=== PATIENT | female | born 1950 | race Caucasian/White ===

== ENCOUNTER 2025-01-05 16:59 | Emergency (ER) | payer MEDICARE, BC, SELFPAY ==
--- OUTSIDE RECORDS SUMMARY | 2025-01-05 17:01 | XMS_ITS ---
Author Organization [facility] MALAIKA saldana Address [address] [place], [place] [id number] Care Team Providers Care Sales Estimator Name Role Phone Dev Mckeon Primary Care Provider [phone] Allergies No Known Allergies REASON FOR VISIT Est Care Medications Medication SIG (Take, Route, Frequency, Duration) Notes Start Date End Date Status Sheldon 1 capsule BID Active Fiber 625 MG 2 tablets as needed Orally Three times a day Active Zinc 20 MG 1 tablet Orally Once a day Active Berberine 600mg/scoop 1 scoop oral BID Active Melatonin 3 MG 1 tablet at bedtime as needed Orally Once a day Active Freeland 3 1000 MG 1 capsule Orally Thr ee times a day Active Vitamin C 500 MG as directed Orally Active Metoprolol Succinate 50 MG 1 capsule Ora lly Once a day Active B12 5000 MCG as directed Sublingual Active hydroCHLOROthiazide 12.5 MG 1 capsule in the morning Orally Once a day Active Niacin 100 MG 1 tablet with food Orally Once a day Active Social History Tobacco Use: Social History Observation Description Date Details (start date - stop date) Never Smoker NA - NA Smoking Question Answer Notes Status: Non-Smoker Problems Problem Type SNOMED Code ICD Code Onset Dates Problem Status W/U Status Risk Notes Problem 95088803 Primary hypertension (I10) Active confirmed Vital Signs Temperature 97.2 degrees Fahrenheit 12/04/19 25 Blood pressure systolic 158 mm Hg 12/04/19 25 Blood pressure diastolic 98 mm Hg 025 Heart Rate 70 /min 12/03/2024 Respiratory Rate 16 /min 12/03/2024 Weight 155.8 lbs 12/03/2024 Encounters Encounter Location Date Provider Diagnosis [facility] [address] [place], [place] [id number] 12/03/2024 Dev Mckeon Abdominal bloating R14.0 and Intermittent constipation K59.09 Assessments Encounter Date Diagnosis (ICD Code) Assessment Notes Treatment Notes Treatment Clinical Notes Section Notes 12/03/2024 Abdominal bloating (ICD-10 - R14.0) 12/03/2024 Intermittent constipation (ICD-10 - K59.09) 12/03/2024 Other Impression & Plan: 1. 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 pylori breath test 2. Chronic Inflammation: - Continue current ibuprofen regimen - Reintroduce quercetin (3,000mg daily) after few days on motility activator - Review previous lab results for pancreatic function markers (amylase, lipase) and anything else I can find. 3. Follow-up Plan: - Monitor response to motility activator for 4-5 months - Consider EGD if symptoms persist or worsen for suspected hiatal hernia - Continue symptom-based management of constipation - Maintain communication regarding lab result review and potential treatment modifications Plan Of Treatment Treatment Notes Assessment Notes Other Impression & Plan: 1. 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 pylori breath test 2. Chronic Inflammation: - Continue current ibuprofen regimen - Reintroduce quercetin (3,000mg daily) after few days on motility activator - Review previous lab results for pancreatic function markers (amylase, lipase) and anything else I can find. 3. Follow-up Plan: - Monitor response to motility activator for 4-5 months - Consider EGD if symptoms persist or worsen for suspected hiatal hernia - Continue symptom-based management of constipation - Maintain communication regarding lab result review and potential treatment modifications Next Appt Details Follow Up: 2 Months, Reason: Progress Notes * Mina PULIDOOB:1950 ([age] yo F)Acc No.[id number]:12/03/2024 Progress Notes Patient: Rosa SOUZA Provider: Sona Mckeon CNP :1950 A ge:73 Y S ex:Female Date:12/03/2024 Address:[address] [place] [address], [id number] Subjective: * Chief Complaints: * E st Care * HPI: P HQ-9: PHQ-2 In last two weeks have you been bothered by L ittle interest or pleasure in doing things N o, F eeling down, depressed, or hopeless N o. - : Respiratory Illness Screening 2 . Are respiratory illness symptom(s) present / reported? N o, 6 . Has close* contact with person(s) known to have communicable illness been reported? N o. 73 year old female presents to [facility] with digestive problems and pelvic cramping since using a 20 lb kettlebell several weeks prior to Thanksgiving. - History of Presenting Illness: Started experiencing pelvic cramping right before Thanksgiving after using a 20 lb kettlebell for several weeks. Symptoms include chronic inflammation, digestive issues, and elimination problems. No recent history of food poisoning or vomiting. No fever reported. Weight decreased from normal weight of 175 lbs to current weight of 155 lbs, with previous loss of appetite that improved with ibuprofen use. Taking ibuprofen 6am and 6pm which has helped with pelvic cramping. Has worked with her primary care provider who recommends colonoscopy as next step and has done lots of blood work with no definitive diagnosis or direction. - Past Medical History: Previous positive H. pylori test years ago. - Current Medications: - Melatonin (Dr. Edita verde - 6 sprays at bedtime, 4 sprays when waking at night) - Betaine HCL - PectaSol (2 daily, 15g fiber) - Magnesium oxide (8 tablets nightly) - Baobab (2 packets daily in 16oz water) - Ibuprofen (twice daily) - Previously on Rosuvastatin 40mg daily, discontinued - Social History: Sister drove from [place] for appointment. * ROS: - Constitutional symptoms: Fatigue, decreased energy, weight loss with previous loss of appetite - Gastrointestinal: Severe bloating, constipation, digestive issues - Genitourinary: Urinary frequency (waking 3 times nightly to urinate) See HPI remainder of 13 point ros reviewed and negative . * Medical History: * Surgical History: D enies Past Surgical History * Hospitalization/Major Diagno stic Procedure: D enies Past Hospitalization * Family History: F ather: Heart Disease. S ister(s): Heart Disease,High Cholesterol,High Blood Pressure.?Maternal Grand Mother: Cancer. M aternal Grand Father: Stroke. 2 brother(s) , 2 sister(s) . . * Social History: D iet: F ollow Special Diet?: Intermittent Fasting. How many servings of fruits and vegetables do you eat daily?: 2-4. T obacco Use: O ther forms of tobacco: No. Smoking S tatus: N on-Smoker. M iscellaneous: E xercise: 2-4 days/week. Sexually active: No. Domestic Violence: No. Caffeine: 1- 2. Seatbelt Usage: Yes. Daily Calcium Intake: 1. 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 It was a gateway for me to other techniques: tuning forks, essential oils, homeopathy.. S ocial History: D rug/Alcohol H ave you used drugs other than those for medical reasons in the past 12 months? N o. H ousehold M arital Status: M arried. D rug/Alcohol: A lcohol: None. Pharmacy Information: [facility]. * Medications: T akingGaba Capsule 1 capsule BID Zinc 20 MG Capsule 1 tablet Orally Once a day Fiber 625 MG Tablet 2 tablets as needed Orally Three times a day Melatonin 3 MG Tablet 1 tablet at bedtime as needed Orally Once a day Berberine 600mg/scoop powder 1 scoop oral BID Niacin 100 MG Tablet 1 tablet with food Orally Once a day Freeland 3 1000 MG Capsule 1 capsule Orally Three times a day Vitamin C 500 MG Capsule as directed Orally B12 5000 MCG Tablet Sublingual as directed Sublingual Metoprolol Succinate 50 MG Capsule ER 24 Hour Sprinkle 1 capsule Orally Once a day hydroCHLOROthiazide 12.5 MG Capsule 1 capsule in the morning Orally Once a day Medication List reviewed and reconciled with the patientTaking Sheldon Capsule 1 capsule BID Taking Zinc 20 MG Capsule 1 tablet Orally Once a day Taking Fiber 625 MG Tablet 2 tablets as needed Orally Three times a day Taking Melatonin 3 MG Tablet 1 tablet at bedtime as needed Orally Once a day Taking Berberine 600mg/scoop powder 1 scoop oral BID Taking Niacin 100 MG Tablet 1 tablet with food Orally Once a day Taking Freeland 3 1000 MG Capsule 1 capsule Orally Three times a day Taking Vitamin C 500 MG Capsule as directed Orally Taking B12 5000 MCG Tablet Sublingual as directed Sublingual Taking Metoprolol Succinate 50 MG Capsule ER 24 Hour Sprinkle 1 capsule Orally Once a day Taking hydroCHLOROthiazide 12.5 MG Capsule 1 capsule in the morning Orally Once a day Medication List reviewed and reconciled with the patient * Allergies: N .K.D.A.no[Allergies Verified] Objective: * Vitals: W t: 155.8, Temp: 97.2, HR: 70, RR: 16, BP: 158/98, [id number]. * Examination: G eneral Examination: - Hyperactive bowel sounds - Mild tenderness noted in upper abdomen - Suspected hiatal hernia identified on physical examination. Assessment: * Assessment: 1. A bdominal bloating - R14.0 (Primary) 2 . I ntermittent constipation - K59.09 Plan: * Treatment: * Procedure Codes: * Follow Up: 2 Months * Billing Information: * Visit Code: 73939 Officeoutpatient visit, new. * Procedure Codes: * Sign off status: Completed true * Provider: Sona Mckeon CNP Date: 0 12/03/2024 Generated for Yosef coats/Toñito/Cydney on: 0 01/05/2025 05:01 PM CDT History and Physical Notes * HPI (History of Present Illness) Category Sub-Category Detail Notes Category Not es PHQ-9 PHQ-2 In last two we eks have you been bothered by Little interest or pleasure in doing things: No Feeling down, depressed, or hopeless: No - Respiratory Illness Screening 2. Are respiratory illness symptom(s) present / reported?: No 73 year old female presents to establish care with digestive problems and pelvic cramping since using a 20 lb kettlebell several weeks prior to Thanks. - History of Presenting Illness: Started experiencing pelvic cramping right before Thanksgiving after using a 20 lb kettlebell for several weeks. Symptoms include chronic inflammation, digestive issues, and elimination problems. No recent history of food poisoning or vomiting. No fever reported. Weight decreased from normal weight of 175 lbs to current weight of 155 lbs, with previous loss of appetite that improved with ibuprofen use. Taking ibuprofen 6am and 6pm which has helped with pelvic cramping. Has worked with her primary care provider who recommends colonoscopy as next step and has done lots of blood work with no definitive diagnosis or direction. - Past Medical History: Previous positive H. pylori test years ago. - Current Medications: - Melatonin (Dr. Edita verde - 6 sprays at bedtime, 4 sprays when waking at night) - Betaine HCL - PectaSol (2 daily, 15g fiber) - Magnesium oxide (8 tablets nightly) - Baobab (2 packets daily in 16oz water) - Ibuprofen (twice daily) - Previously on Rosuvastatin 40mg daily, discontinued - Social History: Sister drove from [place] for appointment. 6. Has close* contact with sully craven(s) known to have communicable illness been reported?: No Examination Category Sub-Category Detail Notes Category Not es General Examination - Hyperactive bowel sounds - Mild tenderness noted in upper abdomen - Suspected hiatal hernia identified on physical examination
--- OUTSIDE RECORDS SUMMARY | 2025-01-05 17:01 | XMS_ITS | Clinical Summary ---
Author Organization [facility] Address [address] [place] [id number] Care Team Providers Care Mophead Trimmer And Wrapper Name Role Phone Votel, Axel Thomas MD Primary Care Provider + Allergies No known active allergies Medications cholecalciferol (Vitamin D-3) 2,000 unit capsule Take 1 Capsule (2,000 units) by mouth once daily. 0 2 Active Hhnrz-5-YZK-EPA-Fi sh Oil 1,000 mg (120 mg-180 mg) cap Take 1 Capsule (1,000 mg) by mouth. 0 2 Active coenzyme q10 (Co Q-10) 100 mg cap Take 1 Capsule (100 mg) by mouth once daily. 0 2 Active vitamin e 200 unit capsule Take 2 Capsules (400 units) by mouth once daily. 0 2 Active miscellaneous medical supply (Blood Pressure Cuff) miscIndications:Es sential hypertension As directed. Home automatic blood pressure cuff. 1 Each 4 Active hydroCHLOROthiazid e 12.5 mg tabletIndications: Essential hypertension Take 1 Tablet (12.5 mg) by mouth once daily. 90 Tablet 3 4 Active metoprolol succinate (TOPROL XL) 50 mg sustained-release tabletIndications: Essential hypertension Take 1 Tablet (50 mg) by mouth once daily. 90 Tablet 3 4 Active rosuvastatin (CRESTOR) 40 mg tabletIndications: Hyperlipidemia, unspecified hyperlipidemia type,Atheroscleros is Take 1 Tablet (40 mg) by mouth at bedtime. 90 Tablet 3 4 Active aspirin (ECOTRIN) 81 mg enteric coated tablet Take 81 mg by mouth once daily with a meal. Active Active Problems Problem Noted Date Diagnosed Date Elevated coronary artery calcium score 3 Overview (07/13/2023): CAC>86% 06/2023 Melanoma in situ of upper extremity, right 06/10 Advanced care planning/counseling discussion 01/2019 Overview (04/26/2019): Completed 2012, reviewed w/o change 2017 Pure hypercholesterolemia 06/29/2018 Essential hypertension 03/11/2018 Encounters Date Type Department Care Team Description 01/05/2025 12:50 PM CDT E-Visit [facility] [address] [place] [address] Axel Palomo MD eVisit for Vaginal Discharge / Irritation 11/04/2024 Travel 11/03/2024 8:15 AM QUALITY ASSURANCE COACH Orders Only [facility] [address] [place] [address] [place], [place] Lab 10/21/2024 2:00 PM QUALITY ASSURANCE COACH Ancillary Procedure [facility] [address] [place] [address] 10/21/2024 Travel 10/16/2024 Travel 10/14/2024 1:40 PM QUALITY ASSURANCE COACH Office Visit [facility] [address] [place] [address] Axel Palomo MD Follow Up ( results) 10/14/2024 Travel 10/09/2024 Travel 10/08/2024 1:45 PM QUALITY ASSURANCE COACH Ancillary Procedure [facility] [address] [place] [address] [address] 10/08/2024 Travel from Last 3 Months Family History Medical History Relation Name Comments Heart failure Father CABG at 60 [facility] Mother Mitral valve prolapse Sister 1 valve replaced Relation Name Status Comments Brother 1 Alive Brother 2 Alive Father (Age 73) Mother (Age 94) Sister 1 Alive Sister 2 Alive Social History Tobacco Use Types Packs/Day Years Used Date Smoking Tobacco: Never Smokeless Tobacco: Never Tobacco Cessation:Counseling Given: Yes Alcohol Use Standard Drinks/Week Comments Yes 2 (1 standard drink = 0.6 oz pur e alcohol) PHQ-2 Answer Date Recorded PHQ-2 TOTAL SCORE 0 06/12/2023 Social Connections Answer Date Recorded Do you often feel lonely or isolated from those around you? 0 09/08/2024 Alcohol Use Answer Date Recorded How often do you have a drink containing alcohol ? 3 06/12/2023 How many drinks containing a lcohol do you have on a typical day when you are drinking? 0 06/12/2023 How often do you have five or more drinks on one occasion? 0 06/12/2023 Financial Resource Strain Answer Date R ecorded Difficulty of Paying Living Expenses 3 09/08/2024 Difficulty of Paying Living Expenses Not on file 09/08/2024 Food Insecurity Answer Date Recorded Do you worry your food will run out before you are able to buy more? 1 09/08/2024 Transportation Needs Answer Date Record ed Does lack of transportation keep you from medica l appointments? 1 09/08/2024 Does lack of transportation keep you from work, meetings or getting things that you need? 1 09/08/2024 Housing Stability Answer Date Recorded What is your housing situation today? 1 09/08/2024 Utilities Answer Date Recorded Do you have trouble paying f or utilities (for example, heat, electricity, water, phone)? 1 09/08/2024 Comments No Sex and Gender Information Value Date Recorded Sex Assigned at Not on file Legal Sex Female 7:12 AM QUALITY ASSURANCE COACH Gender Identity Not on file Sexual Orientation Not on file Obstetrics History Last Filed Vital Signs Vital Sign Reading Time Taken Comments Blood Pressure 134/83 10/14/2024 1:36 PM QUALITY ASSURANCE COACH Pulse 87 10/14/2024 1:36 PM QUALITY ASSURANCE COACH Temperature 36.3 C (97.4 F) 09/28/2024 3:50 PM QUALITY ASSURANCE COACH Respiratory Rate 20 09/28/2024 3:50 PM QUALITY ASSURANCE COACH Oxygen Saturation 100% 10/14/2024 1:36 PM QUALITY ASSURANCE COACH Inhaled Oxygen Concentration - - Weight 71.5 kg (157 lb 11.2 oz) 10/14/2024 1:36 PM QUALITY ASSURANCE COACH Height 163.8 cm (5' 4.5) 10/14/2024 1:36 PM QUALITY ASSURANCE COACH Body Mass Index 26.65 10/14/2024 1:36 PM QUALITY ASSURANCE COACH Plan of Treatment Upcoming Encounters Date Type Department Care Team (Late st Contact Info) Description 01/12/2025 10:00 AM CDT Orders Only [facility] [address] [place] [address] [place] 01/18/2025 1:40 PM CDT Office Visit [facility] [address] [facility] [address] Votel, Axel Thomas MD [address] [place] [address] Health Maintenance Due Date Last Done Comments Tdap 1960 Pneumococcal series for age 50+ (1 of 2 - PCV) 1968 Tetanus booster 1969 Zoster (shingles) series for age 50+ (1 of 2) 12/09/1999 DEXA/DXA scan for age 65+ 2014 COVID-19 vaccine series ( season) 2024 07/02/2023, 07/26/2021, 01/02/2021, Additional history exists Depression screening for age 12+ 06/12/2024 06/12/2023, 05/21/2021, 05/03/2020, Additional history exists RSV vaccine for adults or (1 - 1-dose 75+ series) 2024 Influenza Vaccine (Season Ended) 2025 Medicare Wellness for age 65+ 06/15/2025, 06/12/2023, 06/10/2022, Additional history exists Fecal testing sDNA-FIT (Crimora guard) for age 45-75 06/18/2025 06/18/2022 BMI (ht and wt on same day) for age 18+ 10/14/2025 10/14/2024, 09/30/2024, 09/09/2024, Additional history exists Lipids for age 45-75 09/09/2029 09/09/2024, 06/10/2024, 12/30/2023, Additional history exists Hepatitis C screening for ag e 18-79 Completed 06/11/2023 Procedures Procedure Name Priority Date/Time Associated Diagnosis Comments H PYLORI ANTIGEN,STOOL Routine 11/04/2024 10:21 AM QUALITY ASSURANCE COACH Abdominal pain, generalized STOOL PATHOGEN MULTIPLEX PCR PANEL Routine 11/04/2024 10:17 AM QUALITY ASSURANCE COACH Abdominal pain, generalized CT CHEST ABDOMEN PELVIS WO Routine 10/21/2024 2:54 PM QUALITY ASSURANCE COACH Unexplained weight loss US PELVIS COMPLETE TA AND TV Routine 10/08/2024 3:22 PM QUALITY ASSURANCE COACH Pelvic pain LIPID PANEL W REFLEX MEASURED LDL Routine 09/09/2024 4:20 PM QUALITY ASSURANCE COACH Pure hypercholesterolemia ANTI HCV Routine 06/11/2023 12:43 PM CDT Need for hepatitis C screening test SDNA-FIT EXTERNAL (COLOGUARD) Routine 06/18/2022 5:30 AM CDT Screening for colon cancer from Last 3 Months or Most Recently Relevant to Health Maintenance Results * H PYLORI ANTIGEN,STOOL (11/04/2024 10:21 AM QUALITY ASSURANCE COACH) HELICOBACTER PYLORI AG, EIA, STOOL SEE NOTE [facility] Comment: HELICOBACTER PYLORI AG, EIA, STOOL Micro Number: [id number] Test Status: Final Specimen Source: Stool/feces Specimen Quality: Adequate H.pylori Ag: Not Detected Antimicrobials, proton pump inhibitors, and bismuth preparations inhibit H. pylori and ingestion up to two weeks prior to testing may cause false negative results. If clinically indicated the test should be repeated on a new specimen obtained two weeks after discontinuing treatment. Reference Range: Not Detected Stool STOOL SPECIMEN / Unknown 11/04/2024 10:21 AM QUALITY ASSURANCE COACH 11/04/2024 10:21 AM QUALITY ASSURANCE COACH us Axel Palomo MD MICROBIOLOGY Final Re sult [employer] [facility] [address] [place] [address], [facility] [address] [place] [address] * STOOL PATHOGEN MULTIPLEX PCR PANEL (11/04/2024 10:17 AM QUALITY ASSURANCE COACH) Pathologist [facility] [place] Campylobacter NOT Detected NOT Detected 11/05/2024 10:46 AM [facility] Salmonella NOT Detected NOT Detected 11/05/2024 10:46 AM QUALITY ASSURANCE COACH [facility] Shigella NOT Detected NOT Detected 11/05/2024 10:46 AM [facility] Vibrio NOT Detected NOT Detected 11/05/2024 10:46 AM QUALITY ASSURANCE COACH [facility] Yersinia Enterocolitica NOT Detected NOT Detected 11/05/2024 10:46 AM [facility] Shiga Toxin 1 NOT Detected NOT Detected 11/05/2024 10:46 AM [facility] Shiga Toxin 2 NOT Detected NOT Detected 11/05/2024 10:46 AM [facility] Norovirus NOT Detected NOT Detected 11/05/2024 10:46 AM [facility] Rotavirus NOT Detected NOT Detected 11/05/2024 10:46 AM [facility] Stool STOOL SPECIMEN / Unknown Non-Blood / Unknown 11/04/2024 10:17 AM QUALITY ASSURANCE COACH 11/04/2024 10:17 AM QUALITY ASSURANCE COACH [facility] - 11/05/2024 10:46 AM QUALITY ASSURANCE COACH This test is a Culture Independent Diagnostic Test (CIDT) therefore isolates are not available for susceptibility testing. Antibiotic treatment is often contraindicated and may be detrimental in cases of enteric infections, thus routine susceptibility testing is not recommended. us Axel Palomo MD MICROBIOLOGY Final Re sult [facility] [address] [place] [address], * CT CHEST ABDOMEN PELVIS WO (10/21/2024 2:54 PM QUALITY ASSURANCE COACH) Anatomical Region Laterality Modality Abdomen, Pelvis, AORTA, LIVER, SPLEEN, CHEST Computed Tomography 10/21/2024 4:38 PM QUALITY ASSURANCE COACH Narrative 10/21/2024 4:38 PM QUALITY ASSURANCE COACH For Patients: As a result of the Cures Act, medical imaging exams and procedure reports are released immediately into your electronic medical record. You may view this report before your referring provider. If you have questions, please contact your health care provider. Indication: Unexplained weight loss Technique: CT CHEST/ABD/PELVIS WO Please note that all CT scans at this facility use dose modulation, iterative reconstruction, and/or weight-based dosing when appropriate to reduce radiation dose to as low as reasonably achievable. Comparison: Pelvic ultrasound 10/08/2024 Findings: In the chest, the visualized thyroid is unremarkable. No pulmonary nodule, infiltrate, edema or effusion. No adenopathy. Vascular calcifications. No fracture. Chronic deformity of the left shoulder. Degenerative changes. In the abdomen/pelvis, noncontrast enhanced liver, gallbladder, spleen, pancreas and adrenal glands appear unremarkable. Incidental splenule. Left kidney normal. 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 No bladder stone. Uterus is enlarged. Exophytic calcified fibroid arises from the left posterior uterus. No bowel obstruction, free air, free fluid or adenopathy. Degenerative changes. No fracture. Impression: Duplicated right renal collecting system with hydroureteronephrosis of both moieties extending to the UVJ. Evaluation is limited due to the lack of intravenous contrast. Dedicated pre and post-contrast hematuria CT recommended. Fibroid uterus including a calcified exophytic fibroid on the left. Please note that all CT scans at this facility use dose modulation, iterative reconstruction, and/or weight-based dosing when appropriate to reduce radiation dose to as low as reasonably achievable. Dictated by Leonel Elizabeth MD @ 10/21/2024 4:38:22 PM (Electronically Signed) Procedure Note Leonel Elizabeth MD - 10/21/2024 For Patients: As a result of the Cures Act, medical imagingexams and procedure reports are released immediately into your electronicmedical record. You may view this report before your referring provider.If you have questions, please contact your health care provider. Indication: Unexplained weight loss Technique: CT CHEST/ABD/PELVIS WO Please note that all CT scans at this facility use dose modulation,iterative reconstruction, and/or weight-based dosing when appropriate toreduce radiation dose to as low as reasonably achievable. Comparison: Pelvic ultrasound 10/08/2024 Findings: In the chest, the visualized thyroid is unremarkable. No pulmonary nodule,infiltrate, edema or effusion. No adenopathy. Vascular calcifications. Nofracture. Chronic deformity of the left shoulder. Degenerative changes. In the abdomen/pelvis, noncontrast enhanced liver, gallbladder, spleen,pancreas and adrenal glands appear unremarkable. Incidental splenule. Leftkidney normal. Duplicated right renal collecting system withhydroureteronephrosis involving both moieties. No bladder stone. Uterus isenlarged. Exophytic calcified fibroid arises from the left posterioruterus. No bowel obstruction, free air, free fluid or adenopathy.Degenerative changes. No fracture. Impression: Duplicated right renal collecting system with hydroureteronephrosis ofboth moieties extending to the UVJ. Evaluation is limited due to the lackof intravenous contrast. Dedicated pre and post-contrast hematuria CTrecommended. Fibroid uterus including a calcified exophytic fibroid on the left. Please note that all CT scans at this facility use dose modulation,iterative reconstruction, and/or weight-based dosing when appropriate toreduce radiation dose to as low as reasonably achievable. Dictated by Leonel Elizabeth MD @ 10/21/2024 4:38:22 PM (Electronically Signed) Axel Palomo MD CT Final Re sult * US PELVIS COMPLETE TA AND TV (10/08/2024 3:22 PM QUALITY ASSURANCE COACH) Anatomical Region Laterality Modality Pelvis Ultrasound 10/08/2024 3:55 PM QUALITY ASSURANCE COACH Impressions 10/08/2024 3:55 PM QUALITY ASSURANCE COACH Uterine fibroids measuring 5.7 cm and 5.0 cm. Dictated by Leonel Elizabeth MD @ 10/08/2024 3:55:57 PM (Electronically Signed) Narrative 10/08/2024 3:55 PM QUALITY ASSURANCE COACH For Patients: As a result of the Century Cures Act, medical imaging exams and procedure reports are released immediately into your electronic medical record. You may view this report before your referring provider. If you have questions, please contact your health care provider. INDICATION: Pelvic pain COMPARISON: none TECHNIQUE: 2D allen scale and color Doppler images were acquired of the pelvis using a transabdominal and transvaginal approach. FINDINGS: Partially exophytic right-sided uterine fibroid is present measuring 5.7 x 3.8 x 5.1 cm. Left-sided uterine fibroid is also present measuring 5.0 x 3.2 x 2.9 cm. Uterus measures 8.1 cm in length by 6.5 cm in AP diameter by 7.5 cm in transverse dimension. The endometrial lining is not well visualized and measures approximately 3 millimeters. The ovaries are not visualized. There are no suspicious fluid collections within the cul-de-sac. Procedure Note Leonel Elizabeth MD - 10/08/2024 For Patients: As a result of the Cures Act, medical imagingexams and procedure reports are released immediately into your electronicmedical record. You may view this report before your referring provider.If you have questions, please contact your health care provider. INDICATION: Pelvic pain COMPARISON: none TECHNIQUE: 2D allen scale and color Doppler images were acquired of the pelvis using atransabdominal and transvaginal approach. FINDINGS: Partially exophytic right-sided uterine fibroid is present measuring 5.7 x3.8 x 5.1 cm. Left-sided uterine fibroid is also present measuring 5.0 x3.2 x 2.9 cm. Uterus measures 8.1 cm in length by 6.5 cm in AP diameter by7.5 cm in transverse dimension. The endometrial lining is not wellvisualized and measures approximately 3 millimeters. The ovaries are not visualized. There are no suspicious fluid collectionswithin the cul-de-sac. IMPRESSION: Uterine fibroids measuring 5.7 cm and 5.0 cm. Dictated by Leonel Elizabeth MD @ 10/08/2024 3:55:57 PM (Electronically Signed) us Axel Palomo MD US Final Re sult * LIPID PANEL W REFLEX MEASURED LDL (09/09/2024 4:20 PM QUALITY ASSURANCE COACH) CHOLESTEROL, TOTAL 152 <200 mg/dL [facility] HDL CHOLESTEROL 57 > OR = 50 mg/dL [facility] TRIGLYCERIDES 111 <150 mg/dL [facility] LDL-CHOLESTEROL 76 mg/dL (calc) [facility] Comment: Reference range: <100 Desirable range <100 mg/dL for primary prevention; <70 mg/dL for patients with CHD or diabetic patients with > or = 2 CHD risk factors. LDL-C is now calculated using the Priyank calculation, which is a validated novel method providing better accuracy than the Friedewald equation in the estimation of LDL-C. Greyson SS et al. CAPRICE. 2013;310(19): 0832-2008 (http://education.[employer]/faq/IJS673) CHOL/HDLC RATIO 2.7 <5.0 (calc) [facility] NON HDL CHOLESTEROL 95 <130 mg/dL (calc) [facility] Comment: For patients with diabetes plus 1 major ASCVD risk factor, treating to a non-HDL-C goal of <100 mg/dL (LDL-C of <70 mg/dL) is considered a therapeutic option. Blood BLOOD SPECIMEN / Unknown 09/09/2024 4:20 PM QUALITY ASSURANCE COACH 09/09/2024 4:20 PM QUALITY ASSURANCE COACH Axel Palomo MD CHEMISTRY Final Re sult [employer] [facility] [address] [place] [address], [facility] [address] [place] [phone] * ANTI HCV (06/11/2023 12:43 PM CDT) HEPATITIS C ANTIBODY Non-Reacti ve Non-React paresh 06/12/2023 9:16 AM CDT [facility] Comment:Please note, per www .CDC.gov: If a patient is known to be at high risk of HCV infection, or is symptomatic, and the physician's suspicion of HCV infection is high, HCV RNA testing is often employed and is of diagnostic value, even after an initial negative anti-HCV test result. Blood BLOOD SPECIMEN / Unknown Venipuncture / Unknown 06/11/2023 12:43 PM CDT 06/11/2023 12:43 PM CDT Marivel Andrade DO SEND OUTS Final Resu lt [facility] SENDOUT [place]NAL ZIP [address] [address] [place] [address] * SDNA-FIT EXTERNAL (COLOGUARD) (06/18/2022 5:30 AM CDT) NONINV COLON CA DNA+OCC BLD SCRN STL-IMP Negative Negative 06/22/2022 8:52 AM CDT [facility] (CLIA #:[id number]) Comment: NEGATIVE TEST RESULT. A negative Cologuard result indicates a low likelihood that a colorectal cancer (CRC) or advanced adenoma (adenomatous polyps with more advanced pre-malignant features) is present. The chance that a person with a negative Cologuard test has a colorectal cancer is less than 1 in 1500 (negative predictive value >99.9%) or has an advanced adenoma is less than 5.3% (negative predictive value 94.7%). These data are based on a prospective cross-sectional study of 10,000 individuals at average risk for colorectal cancer who were screened with both Cologuard and colonoscopy. (Timmy Judge al, N Engl J Med 2014;370(14):9091-5791) The normal value (reference range) for this assay is negative. COLOGUARD RE-SCREENING RECOMMENDATION: Periodic colorectal cancer screening is an important part of preventive healthcare for asymptomatic individuals at average risk for colorectal cancer. Following a negative Cologuard result, the [place] [employer] Society and U.S. Multi-Society Task Force screening guidelines recommend a Cologuard re-screening interval of 3 years. References: [place] [employer] Guideline for Colorectal Cancer Screening: https://www.cancer.org/cancer/dflcr-gdnzpm-drpxks/wvxznmqbg-qfhhdvdhu-ioewyog/ac s-rec ommendations.html.; Fidel GEORGE, Joann العلي, Maribell REESE, Colorectal Cancer Screening: Recommendations for Physicians and Patients from the U.S. Multi-Society Task Force on Colorectal Cancer Screening , Am J Gastroenterology 2017; 112:5913-0687. TEST DESCRIPTION: Composite algorithmic analysis of stool DNA-biomarkers with hemoglobin immunoassay. Quantitative values of individual biomarkers are not reportable and are not associated with individual biomarker result reference ranges. Cologuard is intended for colorectal cancer screening of adults of either sex, 45 years or older, who are at average-risk for colorectal cancer (CRC). Cologuard has been approved for use by the U.S. FDA. The performance of Cologuard was established in a cross sectional study of average-risk adults aged 50-84. Cologuard performance in patients ages 45 to 49 years was estimated by sub-group analysis of near-age groups. Colonoscopies performed for a positive result may find as the most clinically significant lesion: colorectal cancer [4.0%], advanced adenoma (including sessile serrated polyps greater than or equal to 1cm diameter) [20%] or non- advanced adenoma [31%]; or no colorectal neoplasia [45%]. These estimates are derived from a prospective cross-sectional screening study of 10,000 individuals at average risk for colorectal cancer who were screened with both Cologuard and colonoscopy. (Timmy Hobson et al, N Engl J Med 2014;370(14):7379-8592.) Cologuard may produce a false negative or false positive result (no colorectal cancer or precancerous polyp present at colonoscopy follow up). A negative Cologuard test result does not guarantee the absence of CRC or advanced adenoma (pre-cancer). The current Cologuard screening interval is every 3 years. ([place] [employer] and U.S. Multi-Society Task Force). Cologuard performance data in a 10,000 patient pivotal study using colonoscopy as the reference method can be accessed at the following location: www.[employer].Highwinds/results. Additional description of the Cologuard test process, warnings and precautions can be found at www.[employer]ants[employer].com. Stool specimen (specimen) (Rectum) 06/18/2022 5:30 AM CDT 06/19/2022 11:50 AM CDT us Marivel Andrade DO URINE Final Resu lt [facility] (CLIA #:[id number]) [address] [place] [address], [place] [phone] from Last 3 Months or Most Recently Relevant to Health Maintenance Insurance BLUE CROSS NEZ PERCE BLUE MR PB ONLY Advance Directives Documents on File Type Date Recorded Patient Hair Dryer Expl anation Healthcare Directive 04/17/2018 12:52 PM Care Teams Mophead Trimmer And Wrapper Relationship Specialty Start Date End Date Votel, Axel Thomas MD [address] [place] [address] PCP - General Family Practice 01/04/25
--- OUTSIDE RECORDS SUMMARY | 2025-01-05 17:01 | XMS_ITS ---
Author Organization [facility] saldana Address [address] [place], [place] [id number] Care Team Providers Care Infantry Officer Name Role Phone Dev Mckeon Primary Care Provider REASON FOR VISIT Follow Up Encounters Encounter Location Date Provider Diagnosis [facility] [address] [place], [place] [id number] 12/06/2024 Dev Mckeon Plan Of Treatment No Information Progress Notes * Mina PULIDOOB:1950 ([age] yo F)Acc No.[id number]:12/06/2024 Patient: Rosa SOUZA :1950 A ge:73 Y S ex:Female Address:[address] [place], [address] * * Date:
--- OUTSIDE RECORDS SUMMARY | 2025-01-05 17:01 | XMS_ITS | Clinical Summary ---
[facility] Address [address], [place] [address] Care Team Providers Care Account Services Representative Name Role Phone Jorge Luis Cortez DO Primary Care Provider [phone] Source Comments You are receiving this document as you are listed as the primary care provider,follow-up provider, or the patient has been referred to you for consultation.This is in compliance with the Medicare and[facility] EHR Incentive Program,which states Providers who transition their patient to another setting of careor provider of care or refers their patient to another provider of care shouldprovide summary care record for each transition of care or referral. [employer] Allergies No known active allergies Medications hydroCHLOROthia zide (ORETIC) 12.5 MG tablet 1 Tablet (12.5 mg) daily. 8 Active metoprolol succinate (TOPROL XL) 50 MG 24 hour release tablet 1 Tablet (50 mg) daily. 8 Active calcipotriene (DOVONEX) 0.005 % creamIndication s:Actinic keratoses Apply topically two times a day. Mixed with fluorouracil. Apply 4-7 days until red and scabby reaction. 60 g 3 Active rosuvastatin (CRESTOR) 40 MG tablet Take 1 Tablet (40 mg) by mouth daily. 4 Active Generic Medication (COMPOUNDED CREAM) Fluorouracil 5%/calcipotriene 0.005% 1:1 cream Apply twice daily for 4-7 days until red scabby reaction. 30 g 4 Active Active Problems Problem Noted Date Diagnosed Date Melanoma in situ of upper extremity, right 08/05 Social History Tobacco Use Types Packs/Day Years Used Date Smoking Tobacco: Never Assessed Comments Unknown Sex and Gender Information Value Date Recorded Sex Assigned at Not on file Legal Sex Female 10:27 AM CDT Gender Identity Not on file Sexual Orientation Not on file Plan of Treatment Upcoming Encounters Date Type Department Care Team (Late st Contact Info) Description 02/10/2025 2:45 PM CDT Appointment [facility] [address] [place] [address] Tasia Michael MD [address] [place] [address] Health Maintenance Due Date Last Done Comments Colon Cancer Screening Plan Due 1950 Hep C Screening (Preventive Services) 1950 Medicare Annual Wellness Visit 1950 Mammogram 1950 DTaP/Tdap/Td Vaccine (1 - Tdap) 1968 Pneumococcal Vaccine 50+ Yrs (1 of 1 - PCV) 12/09/1999 Zoster/Shingles Vaccine (1 of 2) 12/09/1999 Dexa 2014 COVID-19 Vaccine (5 - 2023- season) 2024 07/02/2023, 07/26/2021, 01/02/2021, Additional history exists Influenza Vaccine (#1) 2024 RSV Vaccine (1 - 1-dose 75+ series) 2024 HepA Vaccine Aged Out No longer eligi ble based on patient's age to complete this topic HepB Vaccine Aged Out No longer eligi ble based on patient's age to complete this topic Hib Vaccine Aged Out No longer eligi ble based on patient's age to complete this topic IPV (Polio) Vaccine Aged Out No longe r eligible based on patient's age to complete this topic MCV4 Vaccine Aged Out No longer eligi ble based on patient's age to complete this topic Meningococcal B Vaccine Aged Out No l onger eligible based on patient's age to complete this topic Insurance MEDICARE MANAGED CARE BC [facility] Care Teams Account Services Representative Relationship Specialty Start Date End Date Jorge Luis Cortez DO [address] [place] [address] PCP - General Family Practice 12/22/19
--- OUTSIDE RECORDS SUMMARY | 2025-01-05 17:01 | XMS_ITS | Patient Health Record ---
Author Organization [facility] Address [address] [place], [place] [id number] Care Team Providers Care Component Assembler Name Role Phone Dev Mckeon Primary Care Provider Allergies No Known Allergies Reason For Referral No Information Medications Medication SIG (Take, Route, Frequency, Duration) Notes Start Date End Date Status Ingleside 3 1000 MG 1 capsule Orally Thr ee times a day Active Niacin 100 MG 1 tablet with food Orally Once a day Active Vitamin C 500 MG as directed Orally Active Metoprolol Succinate 50 MG 1 capsule Ora lly Once a day Active B12 5000 MCG as directed Sublingual Active Sheldon 1 capsule BID Active hydroCHLOROthiazide 12.5 MG 1 capsule in the morning Orally Once a day Active Fiber 625 MG 2 tablets as needed Orally Three times a day Active Zinc 20 MG 1 tablet Orally Once a day Active Berberine 600mg/scoop 1 scoop oral BID Active Melatonin 3 MG 1 tablet at bedtime as needed Orally Once a day Active Social History Tobacco Use: Social History Observation Description Date Details (start date - stop date) Never Smoker NA - NA Smoking Question Answer Notes Status: Non-Smoker Problems Problem Type SNOMED Code ICD Code Onset Dates Problem Status W/U Status Risk Notes Problem 43208756 Primary hypertension (I10) Active confirmed Vital Signs Heart Rate 70 /min 12/03/2024 Temperature 97.2 degrees Fahrenheit 12/03/2024 Respiratory Rate 16 /min 12/03/2024 Blood pressure diastolic 98 mm Hg 12/03/2024 Blood pressure systolic 158 mm Hg 12/03/2024 Weight 155.8 lbs 12/03/2024 Encounters Encounter Location Date Provider Diagnosis [facility] [address] [place], [place] [id number] 12/03/2024 Dev Mckeon Abdominal bloating R14.0 and Intermittent constipation K59.09 [facility] [address] [place], [place] [id number] 12/06/2024 Dev Wilsoner Assessments Encounter Date Diagnosis (ICD Code) Assessment [...] and potential treatment modifications Plan Of Treatment No Information Insurance Providers Payer Name Payer Address Payer Phone Subscriber Number Group Number Insured Name Patient Relationship to Insured Coverage Start Date Coverage End Date [employer] Medicare [address] [address] [place] [address] [id number] Rosa Garcia Self - patient is the insured Medical (General) History Medical History History ICD Code Intake: Excellent health unt il 5 months ago. Since then have suffered chronic inflammation, lack of appetite and daily pelvic cramping. Extensive ct scans and lab testing done with no cause identified. Since this cramping started I went off daily low dose aspirin and 40 mg of rosuvastation.
[2025-01-05 17:04] VITALS: BP 181/90; PULSE 80; RESP 18; TEMP 36.1; O2SAT 100; BMI 25.0
--- NOTE | 2025-01-05 17:38 | ED_ITS ---
HPI - General Adult General Chief complaint: Vaginal Bleeding Stated complaint: vaginal bleeding, difficulty urinating Time Seen by Provider: 01/05/25 17:05 History of Present Illness HPI narrative: This 74-year-old female comes in reporting mild lower abdominal pain that is been rather constant over the past several months. She did have a CT scan and ultrasound done about 2 months ago with no findings to explain her symptoms except there was evidence of a moderate-sized uterine fibroid. She did call the clinic to make an arrangement for an OBGYN clinic appointment but that has not yet happened. She comes in today stating that she seems to have less urine output. Related Data Home Medications ?Medication ?Instructions ?Recorded ?Confirmed hydrochlorothiazide 12.5 mg tablet 12.5 mg PO DAILY 01/05/25 01/05/25 metoprolol succinate 50 mg 50 mg PO DAILY 01/05/25 01/05/25 tablet,extended release 24 hr Allergies Allergy/AdvReac Type Severity Reaction Status Date / Time No Known Drug Allergies Allergy Verified 01/05/25 17:11 Review of Systems Status of ROS: Reports: 10 or more systems reviewed and unremarkable except as noted in History and below Narrative: Constitutional: No fevers, no weight gain or loss. Eyes: No discharge. No vision changes. HENT: No congestion, no sore throat, no ear pain. Cardiovascular: No chest pain, no palpitations. Respiratory: No shortness of breath, no wheezes, no cough. Gastrointestinal: No vomiting, no diarrhea. Lower abdominal pain that she rates that 2 or 3/10 in severity. Genitourinary: Decreased urine output recently. Musculoskeletal: Normal range of motion. Skin: No rashes, no pruritis. Neurological: No dizziness, weakness, sensory change, speech change. Endo/Heme/Allergies: No bruising or bleeding. No polydipsia. Pysch: no suicidality, no anxiety, no insomnia. All other systems reviewed and are negative. Exam Narrative: Exam Narrative: Constitutional: Well-developed, well-nourished, no acute distress. HEENT: Normocephalic, atraumatic. Neck: Normal range of motion. Nontender. Supple. Heart: Regular. No murmurs. Normal rate. Intact distal pulses. Lungs: Clear to auscultation. No chest discomfort. No wheezes, rhonchi, or rales. Abdomen: Normal bowel sounds. Mild tenderness in the lower abdomen. No rebound tenderness. Genitalia: Deferred. Back: No midline tenderness. Normal range of motion. Extremities: Normal range of motion. No injury. Skin: Intact. No rash. Warm. No erythema or pallor. Neurologic: No altered sensation. No weakness. Alert and oriented. Psychiatric: No suicidality. No anxiety or depression. No insomnia. Nursing notes and vitals signs are reviewed. Const: Vital Signs, click to edit/add: Vital Signs - 24 hr 01/05/25 17:04 01/05/25 20:27 Temperature 97 F L 97.0 F L Pulse Rate [Right Pulse Oximeter] 80 81 Respiratory Rate 18 18 Blood Pressure [Ri ght Upper Arm] 181/90 H 172/93 H Pulse Oximetry 100 98 Oxygen Delivery Me thod Room Air Room Air Course Vital Signs Vital signs: Initial Vital Signs Temperature 97 F L 01/05/25 17:04 Temperature Source Temporal Artery Scan 01/05/25 17:04 Pulse Rate 80 01/05/25 17:04 Pulse Rhythm Regular 01/05/25 17:04 Pulse Strength 3+ Normal 01/05/25 17:04 Respiratory Rate 18 01/05/25 17:04 Blood Pressure 181/90 H 01/05/25 17:04 Blood Pressure Mean 120 H 01/05/25 17:04 Blood Pressure Position Sitting 01/05/25 17:04 Pulse Oximetry 100 01/05/25 17:04 Oxygen Delivery Method Room Air 01/05/25 17:04 Vital Signs Temperature 97 F L 01/05/25 17:04 Pulse Rate 80 01/05/25 17:04 Respiratory Rate 18 01/05/25 17:04 Blood Pressure 181/90 H 01/05/25 17:04 Pulse Oximetry 100 01/05/25 17:04 Oxygen Delivery Method Room Air 01/05/25 17:04 Temperature 97.0 F L 01/05/25 20:27 Pulse Rate 81 01/05/25 20:27 Respiratory Rate 18 01/05/25 20:27 Blood Pressure 172/93 H 01/05/25 20:27 Pulse Oximetry 98 01/05/25 20:27 Oxygen Delivery Method Room Air 01/05/25 20:27 Medications Administered Medications: Discontinued Medications Generic Name Dose Route Start Last Admin Trade Name Freq PRN Reason Stop Dose Admin Acetaminophen 1,000 mg 01/05/25 21:39 01/05/25 22:02 Acetaminophen 500 Mg Tablet PO 01/05/25 21:40 1,000 mg ONCE ONE Administration Sodium Chloride 1,000 mls @ 1,000 mls/hr 01/05/25 19:30 01/05/25 19:53 0.9 % Sodium Chloride 1000 Ml IV 01/05/25 20:29 1,000 mls/hr .Q1H LUCIAN Administration Medical Decision Making MDM Narrative Medical decision making narrative: This patient comes in reporting some vaginal spotting and decreased urine output over the past couple days. She arrives with normal vital signs except for elevated blood pressure. Urinalysis is obtained and lab results show a significant finding with acute renal failure and a creatinine at 7.2. Her BUN is at 54. I did speak with a property underwriter Dr. Blandon, who stated that she should be transferred to an a line of facility. Arrangements are made for transfer to [facility] but this can include a weight up to 8 hours for a bed to become available. Dr. Azevedo is the accepting physician. The patient did rece paresh a L of normal saline intravenously. It is unclear what may be causing her acute renal failure but did has occurred rather recently as her electrolytes are essentially in normal range. He CT scan without contrast is repeated as she may have some kind of obstructive process and perhaps something emanating from her female organs. Lab Data Labs: Lab Results 01/05/25 01/05/25 Range/Units 17:50 18:34 WBC 8.41 (4.50-11.00) K/uL RBC 3.52 L (4.00-5.20) m/uL Hgb 10.7 L (12.0-16.0) gm/dL Hct 32.4 L (33.0-51.0) % MCV 92 (80-100) fL MCH 30 (26-34) pg MCHC 33 (32-36) gm/dL RDW Coeff of Myrna 13.6 (11.5-15.5) % Plt Count 224 (140-440) K/uL Neut % (Auto) 75.7 H (42.0-72.0) % Lymph % (Auto) 15.5 L (20-44) % Rowan % (Auto) 7.6 (0.0-11.0) % Eos % (Auto) 0.7 (0.0-7.0) % Baso % (Auto) 0.4 (0.0-3.0) % Neut # (Auto) 6.40 (1.7-7.0) K/uL Lymph # (Auto) 1.30 (0.90-2.90) K/uL Rowan # (Auto) 0.60 (0.00-0.90) K/UL Eos # (Auto) 0.06 (0.00-0.50) K/uL Baso # (Auto) 0.03 (0.00-0.30) K/uL Abs Immat Gran (auto) 0.01 (0.00-0.30) K/uL Imm/Tot Granulo (auto) 0.1 % Sodium 129 L (135-149) mmol/L Potassium 4.1 (3.6-5.1) mmol/L Chloride 92 L (96-114) mmol/L Carbon Dioxide 22 (20-32) mmol/L Anion Gap 15 (7-15) mEq/L BUN 54 H (7-30) mg/dL Creatinine 7.2 H (0.5-1.5) mg/dL Estimated Creat Clear 6.07 Estimated GFR 6 ml/min Glucose 110 (60-115) mg/dL Calcium 9.3 (8.4-10.6) mg/dL Total Bilirubin 0.6 (0.1-1.5) mg/dL Direct Bilirubin 0.6 H (0.0-0.5) mg/dL AST 15 (12-35) U/L ALT 14 (4-35) U/L Alkaline Phosphatase 100 (40-150) U/L Total Creatine Kinase 52 (41-117) U/L Total Protein 6.9 (6.0-8.3) g/dL Albumin 3.9 (3.3-5.0) g/dL Urine Color Yellow (Yellow) Urine Appearance Clear (Clear) Urine pH 6.0 (5.0-8.5) Ur Specific Kathryn 1.010 (1.000-1.030) Urine Protein 2+ A (Negative) Urine Glucose (UA) Negative (Negative) Urine Ketones Negative (Negative) Urine Blood 3+ A (Negative) Urine Nitrite Negative (Negative) Urine Bilirubin Negative (Negative) Urine Urobilinogen 0.2 (0.2-1.0) Ur Leukocyte Esterase 1+ A (Negative) Urine RBC 5-10 A (0-2) Urine WBC 5-10 A (0-5) Ur Squamous Epith Cells Few (None-Few) Urine Bacteria Few A (None) Discharge Plan Discharge Clinical Impression: Acute renal failure Patient Disposition: [facility] Condition: Unchanged Prescriptions: No Action metoprolol succinate 50 mg tablet extended release 24 hr 50 mg PO DAILY hydrochlorothiazide 12.5 mg tablet 12.5 mg PO DAILY Follow Up/Referrals: Lupe Obregon MD [Staff Physician] - Stand Alone Forms: [employer] Info Instructions
[2025-01-05 18:00] LABS: Basophils Absolute Auto 0.03 K/uL (0.00-0.30); Basophils Percent Auto 0.4 % (0.0-3.0); Eosinophils Absolute Auto 0.06 K/uL (0.00-0.50); Eosinophils Percent Auto 0.7 % (0.0-7.0); Hematocrit 32.4 % (33.0-51.0); Hemoglobin* 10.7 gm/dL (12.0-16.0); Immature Granulocytes Abs Auto 0.01 K/uL (0.00-0.30); Immature Granulocytes Pct Auto 0.1 %; Lymphocytes Percent Auto 15.5 % (20-44); Mean Corpuscular HGB Conc 33 gm/dL (32-36); Mean Corpuscular Hemoglobin 30 pg (26-34); Mean Corpuscular Volume 92 fL (80-100); Monocytes Percent Auto 7.6 % (0.0-11.0); Neutrophils Percent Auto 75.7 % (42.0-72.0); Platelet Count* 224 K/uL (140-440); RDW Coefficient of Variation % 13.6 % (11.5-15.5); Red Blood Count 3.52 m/uL (4.00-5.20); White Blood Count* 8.41 K/uL (4.50-11.00)
[2025-01-05 18:04] LABS: Slide Review Reflex No
[2025-01-05 18:51] LABS: Appearance Urine Clear (Clear); Bilirubin Urine Negative (Negative); Blood Urine 3+ (Negative); Color Urine Yellow (Yellow); Glucose Urine Negative (Negative); Ketones Urine Negative (Negative); Leukocyte Esterase Urine 1+ (Negative); Nitrite Urine Negative (Negative); Protein Urine 2+ (Negative); Urobilinogen Urine 0.2 (0.2-1.0)
--- OUTSIDE RECORDS SUMMARY | 2025-01-05 18:52 | XMS_ITS | Clinical Summary ---
Author Organization [facility] Address [address], [place] [address] Care Team Providers Care Construction Trench Digger Name Role Phone Jorge Luis Cortez DO Primary Care Provider [phone] Source Comments You are receiving this document as you are listed as the primary care provider,follow-up provider, or the patient has been referred to you for consultation.This is in compliance with the Medicare and[facility] E[facility] Incentive Program,which states Providers who transition their patient to another setting of careor provider of care or refers their patient to another provider of care shouldprovide summary care record for each transition of care or referral. [employer] Allergies No known active allergies Medications hydroCHLOROthia [...] Info) Description 02/10/2025 2:45 PM CDT Appointment [facility] [address] [place] [address] Tasia Michael MD [address] [place] [address] Health Maintenance Due Date Last Done [...] topic Insurance MEDICARE MANAGED CARE BC [facility] [place] [employer] Care Teams Construction Trench Digger Relationship Specialty Start Date End Date Jorge Luis Cortez DO [address] [place] [address] PCP - General Family Practice 12/22/19
--- OUTSIDE RECORDS SUMMARY | 2025-01-05 18:52 | XMS_ITS | Clinical Summary ---
Author Organization [facility] Address [address] [place] [address] Care Team Providers Care Radiology Director Name Role Phone Votel, Axel Thomas MD Primary Care Provider + Allergies No known active allergies Medications cholecalciferol (Vitamin D-3) 2,000 unit capsule Take 1 Capsule (2,000 units) by mouth once daily. 0 2 Active Cbglx-[id number]-Fi sh Oil 1,000 mg (120 mg-180 mg) [...] Team Description 01/05/2025 12:50 PM CDT E-Visit [facility] [address] [place] [address] Axel Palomo MD eVisit for Vaginal Discharge / Irritation 11/04/2024 Travel 11/03/2024 8:15 AM RN ORTHOPEDIC Orders Only [facility] [address] [place] [address] [place], [place] Lab 10/21/2024 2:00 PM RN ORTHOPEDIC Ancillary Procedure [facility] [address] [place] [address] [address] 10/21/2024 Travel 10/16/2024 Travel 10/14/2024 1:40 PM RN ORTHOPEDIC Office Visit [facility] [address] [place] [address] [address] Axel Palomo MD Follow Up ( results) 10/14/2024 Travel 10/09/2024 Travel 10/08/2024 1:45 PM RN ORTHOPEDIC Ancillary Procedure [facility] [address] [place] [address] [address] 10/08/2024 Travel from Last 3 Months Family [...] on file Legal Sex Female 7:12 AM RN ORTHOPEDIC Gender Identity Not on file Sexual Orientation Not on file Obstetrics History Last Filed Vital Signs Vital Sign Reading Time Taken Comments Blood Pressure 134/83 10/14/2024 1:36 PM RN ORTHOPEDIC Pulse 87 10/14/2024 1:36 PM RN ORTHOPEDIC Temperature 36.3 C (97.4 F) 09/28/2024 3:50 PM RN ORTHOPEDIC Respiratory Rate 20 09/28/2024 3:50 PM RN ORTHOPEDIC Oxygen Saturation 100% 10/14/2024 1:36 PM RN ORTHOPEDIC Inhaled Oxygen Concentration - - Weight 71.5 kg (157 lb 11.2 oz) 10/14/2024 1:36 PM RN ORTHOPEDIC Height 163.8 cm (5' 4.5) 10/14/2024 1:36 PM RN ORTHOPEDIC Body Mass Index 26.65 10/14/2024 1:36 PM RN ORTHOPEDIC Plan of Treatment Upcoming Encounters Date Type Department Care Team (Late st Contact Info) Description 01/12/2025 10:00 AM CDT Orders Only [facility] [address] [place] [address] [address] [place] 01/18/2025 1:40 PM CDT Office Visit [facility] [address] [facility] [address] Votel, Axel Thomas MD [address] [place] [address] Health Maintenance Due Date Last Done Comments [...] 06/10/2022, Additional history exists Fecal testing sDNA-FIT (Lorain guard) for age 45-75 06/18/2025 06/18/2022 BMI (ht and wt on same day) for age 18+ 10/14/2025 10/14/2024, 09/30/2024, 09/09/2024, Additional history exists Lipids for age 45-75 09/09/2029 09/09/2024, 06/10/2024, 12/30/2023, Additional history exists Hepatitis C screening for ag e 18-79 Completed 06/11/2023 Procedures Procedure Name Priority Date/Time Associated Diagnosis Comments H PYLORI ANTIGEN,STOOL Routine 11/04/2024 10:21 AM RN ORTHOPEDIC Abdominal pain, generalized STOOL PATHOGEN MULTIPLEX PCR PANEL Routine 11/04/2024 10:17 AM RN ORTHOPEDIC Abdominal pain, generalized CT CHEST ABDOMEN PELVIS WO Routine 10/21/2024 2:54 PM RN ORTHOPEDIC Unexplained weight loss US PELVIS COMPLETE TA AND TV Routine 10/08/2024 3:22 PM RN ORTHOPEDIC Pelvic pain LIPID PANEL W REFLEX MEASURED LDL Routine 09/09/2024 4:20 PM RN ORTHOPEDIC Pure hypercholesterolemia ANTI HCV Routine 06/11/2023 12:43 PM CDT Need for hepatitis C screening test SDNA-FIT EXTERNAL (COLOGUARD) Routine 06/18/2022 5:30 AM CDT Screening for colon cancer from Last 3 Months or Most Recently Relevant to Health Maintenance Results * H PYLORI ANTIGEN,STOOL (11/04/2024 10:21 AM RN ORTHOPEDIC) HELICOBACTER PYLORI AG, EIA, STOOL SEE NOTE [facility] Comment: HELICOBACTER PYLORI AG, EIA, STOOL Micro Number: [id number] Test Status: Final Specimen Source: Stool/feces Specimen [...] STOOL SPECIMEN / Unknown 11/04/2024 10:21 AM RN ORTHOPEDIC 11/04/2024 10:21 AM RN ORTHOPEDIC us Axel Palomo MD MICROBIOLOGY Final Re sult [facility] [address] [place] [address], [facility] [address] [place] [address] * STOOL PATHOGEN MULTIPLEX PCR PANEL (11/04/2024 10:17 AM RN ORTHOPEDIC) Pathologist [facility] Campylobacter NOT Detected NOT Detected 11/05/2024 10:46 AM [facility] Salmonella NOT Detected NOT Detected 11/05/2024 10:46 AM RN ORTHOPEDIC [facility] Shigella NOT Detected NOT Detected 11/05/2024 10:46 AM [facility] Vibrio NOT Detected NOT Detected 11/05/2024 10:46 AM RN ORTHOPEDIC [facility] Yersinia Enterocolitica NOT Detected NOT Detected 11/05/2024 10:46 AM [facility] Shiga Toxin 1 NOT Detected NOT Detected 11/05/2024 10:46 AM [facility] Shiga Toxin 2 NOT Detected NOT Detected 11/05/2024 10:46 AM [facility] Norovirus NOT Detected NOT Detected 11/05/2024 10:46 AM [facility] Rotavirus NOT Detected NOT Detected 11/05/2024 10:46 AM [facility] Stool STOOL SPECIMEN / Unknown Non-Blood / Unknown 11/04/2024 10:17 AM RN ORTHOPEDIC 11/04/2024 10:[address] [facility] - 11/05/2024 10:46 AM RN ORTHOPEDIC This test is a Culture Independent Diagnostic Test (CIDT) therefore isolates are not available for susceptibility testing. Antibiotic treatment is often contraindicated and may be detrimental in cases of enteric infections, thus routine susceptibility testing is not recommended. us Axel Palomo MD MICROBIOLOGY Final Re sult [facility] [address] [place] [address], * CT CHEST ABDOMEN PELVIS WO (10/21/2024 2:54 PM RN ORTHOPEDIC) Anatomical Region Laterality Modality Abdomen, Pelvis, AORTA, LIVER, SPLEEN, CHEST Computed Tomography 10/21/2024 4:38 PM RN ORTHOPEDIC Narrative 10/21/2024 4:38 PM RN ORTHOPEDIC For Patients: As a result of the [...] COMPLETE TA AND TV (10/08/2024 3:22 PM RN ORTHOPEDIC) Anatomical Region Laterality Modality Pelvis Ultrasound 10/08/2024 3:55 PM RN ORTHOPEDIC Impressions 10/08/2024 3:55 PM RN ORTHOPEDIC Uterine fibroids measuring 5.7 cm and 5.0 cm. Dictated by Leonel Elizabeth MD @ 10/08/2024 3:55:57 PM (Electronically Signed) Narrative 10/08/2024 3:55 PM RN ORTHOPEDIC For Patients: As a result of the [...] cm and 5.0 cm. Dictated by Leonel Elizabeht MD @ 10/08/2024 3:55:57 PM (Electronically Signed) us Axel Palomo MD US Final Re sult * LIPID PANEL W REFLEX MEASURED LDL (09/09/2024 4:20 PM RN ORTHOPEDIC) CHOLESTEROL, TOTAL 152 <200 mg/dL [facility] HDL CHOLESTEROL 57 > OR = 50 mg/dL [facility] TRIGLYCERIDES 111 <150 mg/dL [facility] LDL-CHOLESTEROL 76 mg/dL (calc) [facility] Comment: Reference range: <100 Desirable range <100 mg/dL for primary prevention; <70 mg/dL for patients with CHD or diabetic patients with > or = 2 CHD risk factors. LDL-C is now calculated using the Priyank calculation, which is a validated novel method providing better accuracy than the Friedewald equation in the estimation of LDL-C. Greyson SS et al. CAPRICE. 2013;310(19): 2957-5082 (http://education.DUNCAN [employer] Todd/faq/FMA492) CHOL/HDLC RATIO 2.7 <5.0 (calc) [facility] NON HDL CHOLESTEROL 95 <130 mg/dL (calc) [facility] Comment: For patients with diabetes plus 1 major ASCVD risk factor, treating to a non-HDL-C goal of <100 mg/dL (LDL-C of <70 mg/dL) is considered a therapeutic option. Blood BLOOD SPECIMEN / Unknown 09/09/2024 4:20 PM RN ORTHOPEDIC 09/09/2024 4:20 PM RN ORTHOPEDIC Axel Palomo MD CHEMISTRY Final Re sult [facility] [address] [place] [address], [facility] [address] [place] [address] * ANTI HCV (06/11/2023 12:43 PM CDT) HEPATITIS C ANTIBODY Non-Reacti ve Non-React paresh 06/12/2023 9:16 AM CDT [facility] Comment:Please note, per www .CDC.gov: If [...] Andrade DO SEND OUTS Final Resu lt [facility] SENDOUT [place]IP [address] [address] [place] [address] * SDNA-FIT EXTERNAL (COLOGUARD) (06/18/2022 5:30 AM CDT) NONINV COLON CA DNA+OCC BLD SCRN STL-IMP Negative Negative 06/22/2022 8:52 AM CDT [facility] (CLIA #:[id number]) Comment: NEGATIVE TEST RESULT. A negative Cologuard [...] (Timmy Judge al, N Engl J Med 2014;370(14):9676-2502) The normal value (reference range) for this assay is negative. COLOGUARD RE-SCREENING RECOMMENDATION: Periodic colorectal cancer screening is an important part of preventive healthcare for asymptomatic individuals at average risk for colorectal cancer. Following a negative Cologuard result, the [place] Cancer Society and U.S. Multi-Society Task Force screening guidelines recommend a Cologuard re-screening interval of 3 years. References: [place] [employer] Guideline for Colorectal Cancer Screening: https://www.cancer.org/cancer/okntq-vduboq-ghhkih/vwwyajecp-xhaschgbx-iuegutn/ac s-rec ommendations.html.; Fidel GEORGE, Joann العلي, Maribell REESE, Colorectal Cancer Screening: Recommendations for Physicians and Patients from the U.S. Multi-Society Task Force on Colorectal Cancer Screening , Am J Gastroenterology 2017; 112:8771-6911. TEST DESCRIPTION: Composite algorithmic analysis of stool [...] Hobson et al, N Engl J Med 2014;370(14):0048-7779.) Cologuard may produce a false negative or false positive result (no colorectal cancer or precancerous polyp present at colonoscopy follow up). A negative Cologuard test result does not guarantee the absence of CRC or advanced adenoma (pre-cancer). The current Cologuard screening interval is every 3 years. ([place] [employer] Society and U.S. Multi-Society Task Force). Cologuard performance data in a 10,000 patient pivotal study using colonoscopy as the reference method can be accessed at the following location: www.[employer]/results. Additional description of the Cologuard test process, warnings and precautions can be found at www.View the Spacerd.com. Stool specimen (specimen) (Rectum) 06/18/2022 5:30 AM CDT 06/19/2022 11:50 AM CDT us Marivel Andrade DO URINE Final Resu lt [facility] (CLIA #:[id number]) [address] [place] [address], [place] [phone] from Last 3 Months or Most Recently Relevant to Health Maintenance Insurance [employer] [place] BLUE MR PB ONLY Advance Directives Documents on File Type Date Recorded Patient Software Developer Intern Expl anation Healthcare Directive 04/17/2018 12:52 PM Care Teams Radiology Director Relationship Specialty Start Date End Date Votel, Axel Thoams MD [address] [place] [address] PCP - General Family Practice 01/04/25
[2025-01-05 18:55] LABS: Bacteria Urine Few; Squamous Epithelial Cell Urine Few (None-Few)
[2025-01-05 18:59] LABS: Albumin* 3.9 g/dL (3.3-5.0); Chloride* 92 mmol/L (96-114); Potassium* 4.1 mmol/L (3.6-5.1); Sodium* 129 mmol/L (135-149)
[2025-01-05 19:01] LABS: Blood Urea Nitrogen* 54 mg/dL (7-30); Creatinine* 7.2 mg/dL (0.5-1.5); Est. Creatinine Clearance* 6.07; Estimated Glomerular Filt Rate 6 ml/min
[2025-01-05 19:02] LABS: Alanine Aminotransferase* 14 U/L (4-35); Alkaline Phosphatase* 100 U/L (40-150); Anion Gap 15 mEq/L (7-15); Aspartate Amino Transferase* 15 U/L (12-35); Bilirubin Direct* 0.6 mg/dL (0.0-0.5); Bilirubin Total* 0.6 mg/dL (0.1-1.5); Calcium* 9.3 mg/dL (8.4-10.6); Carbon Dioxide* 22 mmol/L (20-32); Glucose* 110 mg/dL (60-115); Total Protein* 6.9 g/dL (6.0-8.3)
[2025-01-05] MEDS: 0.9 % SODIUM CHLORIDE 1000 ml 1,000 ML IV (19:53)
[2025-01-05 20:27] VITALS: BP 172/93; PULSE 81; RESP 18; TEMP 36.1; O2SAT 98
[2025-01-05 20:37] LABS: Creatine Kinase* 52 U/L (41-117)
[2025-01-05] MEDS: ACETAMINOPHEN 500 MG TABLET 1000 MG PO (22:02)
--- NOTE | 2025-01-05 22:30 | PC.NURSE ---
JUSTINA with Wanda to let her know pt is en route to [employer] [id number], report given [phone]
--- NOTE | 2025-01-22 04:43 | ED.NURSE ---
Chart accessed due to [facility] requiring a printed copy of the PCS form.
== END 2025-01-05 22:30 | disposition short-term general hospital (02) ==
PROVIDERS: Emergency Provider Emergency Medicine Emergency Medical Services; PCP Family Medicine
DX: N17.9 Acute kidney failure, unspecified (principal); R39.198 Other difficulties with micturition
CPT/HCPCS: 36415; 80048; 80076; 81001; 82550; 85025; 87086; 96360; 96361; 99284; 99285; A9270; J7030

== ENCOUNTER 2025-01-05 22:27 | Outpatient (CLI) | payer MEDICARE, BC, SELFPAY | END 2025-01-05 22:28 | disposition home or self-care (01) | LOC: AMB 01-06 12:39 | PROVIDERS: PCP Family Medicine; Visit Provider Emergency Medicine Emergency Medical Services | DX: N17.9 Acute kidney failure, unspecified (principal) | CPT/HCPCS: A0425; A0429 ==

== ENCOUNTER 2025-01-22 05:03 | Emergency (ER) | payer MEDICARE, BC, SELFPAY ==
--- OUTSIDE RECORDS SUMMARY | 2025-01-22 05:05 | XMS_ITS | Clinical Summary ---
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 0 022 Active coenzyme q10 (Co Q-10) 100 mg cap Take 1 Capsule (100 mg) by mouth once daily. 0 022 Active miscellaneous medical supply (Blood Pressure Cuff) miscIndications:E ssential hypertension As directed. Home automatic blood pressure cuff. 1 Each 024 Active fish oil-omega-3 fatty acids (Fish OiL) 1,200-360 mg cap Take 1 Capsule by mouth two times daily. One capsule is 1200 mg-360 mg Active Non-Adherent Bandage 4 X 4 spgeIndications:B ilateral hydronephrosis Apply topically to affected area(s). Apply around drain twice per week and as needed if dressing wet or loose. 100 Each 025 Active Adhesive Tape (Medipore H) 3 X 10 -yard tapeIndications:B ilateral hydronephrosis Apply topically to affected area(s). 3 Each 025 Active acetaminophen 325 mg tabletIndications :Malignant neoplasm of cervix, unspecified site (HC) Take 2 Tablets (650 mg) by mouth every 4 hours if needed for Pain (For mild pain.). Max acetaminophen dose: 4000mg in 24 hrs. 180 Tablet 01/15/20 12:03 PM CDT 025 Active polyethylene glycoL 17 gram/scoop powderIndications :Malignant neoplasm of cervix, unspecified site (HC),Constipation , unspecified constipation type Mix 1 scoop (17 g) in 8 oz of liquid then take by mouth once daily if needed for Constipation. 238 g 01/15/20 12:03 PM CDT 025 Active carvediloL 25 mg tabletIndications :HTN (hypertension) Take 1 Tablet (25 mg) by mouth two times daily with meals. 180 Tablet 3 Active Sizrr-9-WRB-EPA-F christian Oil 1,000 mg (120 mg-180 mg) cap Take 1 Capsule (1,000 mg) by mouth. 0 2024 Discontinued (Pharmacist change per medication history (E-cancel not sent)) vitamin e 200 unit capsule Take 2 Capsules (400 units) by mouth once daily. 0 2024 Discontinued (*IP Discontinued ) hydroCHLOROthiazi de 12.5 mg tabletIndications :Essential hypertension Take 1 Tablet (12.5 mg) by mouth once daily. 90 Tablet 3 024 2024 Discontinued (*IP Discontinued ) metoprolol succinate (TOPROL XL) 50 mg sustained-release tabletIndications :Essential hypertension Take 1 Tablet (50 mg) by mouth once daily. 90 Tablet 3 024 2024 Discontinued (*IP Discontinued ) rosuvastatin (CRESTOR) 40 mg tabletIndications :Hyperlipidemia, unspecified hyperlipidemia type,Atherosclero sis Take 1 Tablet (40 mg) by mouth at bedtime. 90 Tablet 3 024 2024 Discontinued (Pharmacist change per medication history (E-cancel not sent)) aspirin (ECOTRIN) 81 mg enteric coated tablet Take 81 mg by mouth once daily with a meal. 2024 Discontinued (Pharmacist change per medication history (E-cancel not sent)) niacin 500 mg tablet Take 500 mg by mouth once daily. 2024 Discontinued (*IP Discontinued ) carvediloL 12.5 mg tabletIndications :Essential hypertension Take 1 Tablet (12.5 mg) by mouth two times daily with meals. 60 Tablet 01/15/20 12:03 PM CDT 025 2024 Discontinued (*Medication adjustment) sennosides 8.6 mg tabletIndications :Constipation, unspecified constipation type Take 2 Tablets (17.2 mg) by mouth 2 times daily if needed for Constipation. 100 Tablet 01/15/20 12:03 PM CDT 025 2024 Discontinued (*Med complete/Reg imen complete/Lev el of care change) Active Problems Problem Noted Date Diagnosed Date Uterine/cervical mass with c oncern for bladder and rectal invasion 01/14/2025 Hydroureteronephrosis 01/14/2025 MTHFR mutation 01/08/2025 Acute renal failure 01/06/2025 Renal duplicate collecting system, right Fibroid uterus 01/06/2025 Acute anemia 01/06/2025 Bright red blood per rectum 01/06/2025 Constipation 01/06/2025 Post-menopausal bleeding 01/06/2025 Metabolic acidosis 01/06/2025 Hyponatremia 01/06/2025 [place] (acute kidney injury) 01/06/2025 Elevated coronary artery calcium score 3 Overview (07/13/2023): CAC>86% 06/2023 Melanoma in situ of upper extremity, right 06/10 Advanced care planning/counseling discussion 01/2019 Overview (04/26/2019): Completed 2012, reviewed w/o change 2017 Pure hypercholesterolemia 06/29/2018 Essential hypertension 03/11/2018 Encounters Date Type Department Care Team Description 01/23/20 Nurse Triage [facility] [address] [place] [address] Axel Palomo MD Home Care (nephrostomy leaking ) 01/22/20 12:00 PM CDT Home Care Visit [facility] [address] [place] [address] Shannan Garcia, DUYEN SN - HOME VISIT 01/20/20 Telephone [facility] [address] [place] [address] Axel Palomo MD PET SCAN ORDER 01/19/20 1:40 PM CDT Office Visit [facility] [address] [place] [address] Axel Palomo MD Hospital F/U (01/05-01/14/25/Kidney failure ); Results (MRI 01/10/25 ) 01/19/20 Travel 01/18/20 Telephone [facility] [address], [place] [address] Arina Guerra RN 01/18/20 Patient Outreach [facility] [address] [place] [address] Merlene Ferrera RN Primary RN Care Management; Hospital F/U (LACe 72) 01/17/20 10:30 AM CDT Home Care Visit [facility] [address] [place] [address] Arina Guerra, DUYEN SN - OASIS START OF CARE 01/17/20 Plan of Care Documentation [facility] [address] [place] [address] 01/16/20 Nurse Triage [facility] [address] [place] [address] Axel Palomo MD Appointment Request 01/14/20 11:08 AM CDT Anesthesia Event [facility] [address] [place] [address] David Amaya MD Bloom, Jordan M, MOLD MOVER 01/14/20 9:45 AM CDT - 01/14/20 11:07 AM CDT Surgery [facility] [address] [place] [address] Sarah Coto MD EXAM UNDER ANESTHESIA, CERVICAL BIOPSIES 01/14/20 Travel 01/08/20 11:10 AM CDT Anesthesia Event [facility] [address] [place] [address] Maria C Aguiar MD 01/08/20 10:20 AM CDT - 01/08/20 11:20 AM CDT Surgery [facility] [address] [place] [address] William Giraldo MD ESOPHAGOGASTRODUODENOSCOPY WITH BIOPSY 01/07/20 Travel 01/06/20 11:23 PM CDT - 01/15/20 1:02 PM CDT Hospital Encounter [facility] [address] [place] [address] [facility], [facility] Hospitalists [facility], MD Cristi Montez Brian Lavin, MD Residents, Shahzad, Donna Lerma MD Bilateral hydronephrosis (Primary Dx); Malignant neoplasm of cervix, unspecified site (HC); Essential hypertension; Constipation, unspecified constipation type Discharge Disposition: Home Health 01/06/20 12:50 PM CDT E-Visit [facility] [address] [place] [address] Votel, Axel Thomas MD eVisit for Vaginal Discharge / Irritation 11/04/19 Travel 11/03/19 8:15 AM DIRECTOR DIVERSITY Orders Only [facility] [address] [place] [address] Lab, [place] Lab from Last 3 Months Family History Medical [...] or isolated from those around you? 0 01/06/2025 Alcohol Use Answer Date Recorded How often [...] you are able to buy more? 1 01/06/2025 Transportation Needs Answer Date Record ed Does lack of transportation keep you from medica l appointments? 1 01/06/2025 Does lack of transportation keep you from work, meetings or getting things that you need? 1 01/06/2025 Housing Stability Answer Date Recorded What is your housing situation today? 1 01/06/2025 Interpersonal Safety Answer Date Record ed Are you being hit, kicked, p ushed or yelled at (see row info)? No 01/06/2025 Interpersonal Safety Abuse 12 - 18 Not on file 01/06/2025 Interpersonal Safety Ambulatory Vulnerability No t on file 01/06/2025 Utilities Answer Date Recorded Do you have trouble paying f or utilities (for example, heat, electricity, water, phone)? 1 01/06/2025 Comments No Sex and Gender Information Value Date Recorded Sex Assigned at Not on file Legal Sex Female 7:12 AM DIRECTOR DIVERSITY Gender Identity Not on file Sexual Orientation Not on file Obstetrics History Para Term AB IAB SAB Ectopic Multiple Livin g Live Births 0 0 0 0 0 0 0 0 0 0 0 Last Filed Vital Signs Vital Sign Reading Time Taken Comments Blood Pressure 140/78 01/21/2025 12:04 PM CDT Pulse 73 01/21/2025 12:04 PM CDT Temperature 36.6 C (97.8 F) 01/21/2025 12:04 PM CDT Respiratory Rate 16 01/21/2025 12:04 PM CDT Oxygen Saturation 97% 01/21/2025 12:04 PM CDT Inhaled Oxygen Concentration - - Weight 69.9 kg (154 lb) 01/18/2025 1:42 PM CDT Height 165.1 cm (5' 5) 01/16/2025 11:14 AM CDT Body Mass Index 25.63 01/16/2025 11:14 AM CDT Plan of Treatment Upcoming Encounters Date Type Department Care Team (Late st Contact Info) Description 01/25/2025 4:00 AM CDT Home Care Visit [facility] [address] [place] [address] Shannan Garcia, DUYEN 01/28/2025 4:00 AM CDT Home Care Visit [facility] [address] [place] [address], [place] [address] Shannan Garcia, DUYEN 02/01/2025 4:00 AM CDT Home Care Visit [facility] [address] [place] [address], [place] [address] Shannan Garcia, DUYEN 02/04/2025 4:00 AM CDT Home Care Visit [facility] [address] [place] [address], [place] [address] Shannan Garcia, DUYEN 02/08/2025 4:00 AM CDT Home Care Visit [facility] [address] [place] [address], [place] [address] Shannan Garcia, DUYEN 02/11/2025 4:00 AM CDT Home Care Visit [facility] [address] [place] [address], [place] [address] Shannan Garcia, DUYEN 02/16/2025 4:00 AM CDT Home Care Visit [facility] [id number] [place] [address], [place] [address] Shannan Garcia, DUYEN 02/17/2025 1:40 PM CDT Office Visit [facility] [address] [place] [address] Axel Palomo MD [address] [place] [address] 02/18/2025 4:00 AM CDT Home Care Visit [facility] [id number] [place] [address] Shannan Garcia, DUYEN 02/22/2025 4:00 AM CDT Home Care Visit [facility] [address] [place] [address] Shannan Garcia, DUYEN 02/25/2025 4:00 AM CDT Home Care Visit [facility] [address] [place] [address] Shannan Garcia, DUYEN 03/01/2025 4:00 AM CDT Home Care Visit [facility] [address] [place] [address] Shannan Garcia, DUYEN 03/04/2025 4:00 AM CDT Home Care Visit [facility] [address] [place] [address] Shannan Garcia, RN Health Maintenance Due Date Last Done Comments Tdap 1960 Pneumococcal series for age 50+ (1 of 2 - PCV) 1968 Zoster (shingles) series for age 50+ (1 of 2) 1968 Tetanus booster 1969 DEXA/DXA scan for age 65+ 2014 COVID-19 vaccine series ( season) 2024 07/02/2023, 07/26/2021, 01/02/2021, Additional history exists Depression screening for age 12+ 06/12/2024 06/12/2023, 05/21/2021, 05/03/2020, Additional history exists RSV vaccine for adults or (1 - 1-dose 75+ series) 2024 Influenza Vaccine (Season Ended) 2025 Medicare Wellness for age 65+ 06/15/2025, 06/12/2023, 06/10/2022, Additional history exists Fecal testing sDNA-FIT ([place]) for age 45-75 06/18/2025 06/18/2022 BMI (ht and wt on same day) for age 18+ 10/14/2025 10/14/2024, 09/30/2024, 09/09/2024, Additional history exists Lipids for age 45-75 01/18/2030 01/18/2025, 09/09/2024, 06/10/2024, Additional history exists Hepatitis C screening for ag e 18-79 Completed 06/11/2023 Procedures Procedure Name Priority Date/Time Associated Diagnosis Comments LIPID PANEL W REFLEX MEASURE D LDL Routine 01/18/2025 2:53 PM CDT Pure hypercholesterolemia HEMOGLOBIN A1C Routine 01/18/2025 2:53 PM CDT Prediabetes ANTINUCLEAR ANTIBODY BY IFA Routine 12/22 2:53 PM CDT Myalgia RA QUANTITATIVE Routine 01/18/2025 2:53 PM CDT Myalgia CBC W PLT NO DIFF Routine 01/18/2025 2:53 PM CDT Malignant neoplasm of cervix, unspecified site (HC) COMP METABOLIC PANEL Routine 01/18/2025 2:53 PM CDT Malignant neoplasm of cervix, unspecified site (HC) Obstructive uropathy CREATININE Early AM 01/14/2025 6:45 AM CDT PATH TISSUE EXAM Today 01/13/2025 11:31 AM CDT BIOPSY CERVIX Class D Urgent 01/13/2025 10:36 AM CDT CERVICAL MASS CYSTOSCOPY Class D Urgent 01/13/2025 10:36 AM CDT CERVICAL MASS EXAMINATION UNDER ANESTHESIA Class D Urgent 01/13/2025 10:36 AM CDT CERVICAL MASS OR IMAGE CAPTURE Routine 01/13/2025 9:26 AM CDT TYPE & SCREEN Today 01/13/2025 8:22 AM CDT HEMOGLOBIN Early AM 01/12/2025 6:40 AM CDT BASIC METABOLIC PANEL Early AM 01/12/2025 6:40 AM CDT HEMOGLOBIN Early AM 01/11/2025 10:14 AM CDT BASIC METABOLIC PANEL Early AM 01/11/2025 10:14 AM CDT MR PELVIS WWO Routine 01/10/2025 3:08 PM CDT HEMOGLOBIN Today 01/10/2025 8:58 AM CDT PHOSPHORUS Early AM 01/10/2025 7:01 AM CDT MAGNESIUM Early AM 01/10/2025 7:01 AM CDT BASIC METABOLIC PANEL Early AM 01/10/2025 7:01 AM CDT BASIC METABOLIC PANEL Early AM 01/09/2025 6:59 AM CDT GLUCOSE METER Timed 01/08/2025 4:20 PM CDT GLUCOSE METER Timed 01/08/2025 11:42 AM CDT RENAL FUNCTION PANEL Early AM 01/08/2025 6:48 AM CDT IR NEPHROSTOMY TUBE BILATERAL Routine 5:24 PM CDT PROTIME-INR STAT 01/07/2025 1:06 PM CDT PATH TISSUE EXAM Today 01/07/2025 11:19 AM CDT BIOPSY CERVIX 01/07/2025 11:04 AM CDT See note COLONOSCOPY WITH BIOPSY 01/08/20 11:04 AM CDT See note ESOPHAGOGASTRODUODENOSCOPY WITH BIOPSY 01/07/2025 11:04 AM CDT See note COLONOSCOPY 01/07/2025 10:30 AM CDT ENDOSCOPY 01/07/2025 10:28 AM CDT HEMOGLOBIN Early AM 01/07/2025 8:35 AM CDT RENAL FUNCTION PANEL Early AM 01/07/2025 8:35 AM CDT URINALYSIS MICROSCOPIC STAT 2:51 PM CDT URINE CULTURE Today 01/06/2025 2:51 PM CDT UA W/ SEDIMENT EXAM REFLEXED PER CRITERIA STAT 01/06/2025 2:51 PM CDT US PELVIS COMPLETE TA AND TV Routine 2:11 PM CDT CBC W PLT NO DIFF Early AM 01/06/2025 6:16 AM CDT FOLIC ACID Today 01/06/2025 6:15 AM CDT BASIC METABOLIC PANEL Early AM 01/06/2025 6:[address] ABDOMEN PELVIS WO MERCEDEZ 01/06/2025 3:15 AM CDT CBC W PLT NO DIFF Today 01/06/2025 1:00 AM CDT EKG 12 LEAD MERCEDEZ 01/06/2025 12:36 AM CDT IRON PLUS IRON BINDING CAP MERCEDEZ 01/06 12:35 AM CDT FERRITIN MERCEDEZ 01/06/2025 12:35 AM CDT VITAMIN B12 MERCEDEZ 01/06/2025 12:35 AM CDT BASIC METABOLIC PANEL STAT 01/06/2025 12:35 AM CDT SCAN-CARDIAC STRIP 01/05/2025 12:00 AM CDT H PYLORI ANTIGEN,STOOL Routine 10:21 AM DIRECTOR DIVERSITY Abdominal pain, generalized STOOL PATHOGEN MULTIPLEX PCR PANEL Routine 11/04/2024 10:17 AM DIRECTOR DIVERSITY Abdominal pain, generalized ANTI HCV Routine 06/11/2023 12:43 PM CDT Need for hepatitis C screening test SDNA-FIT EXTERNAL (COLOGUARD) Routine 5:30 AM CDT Screening for colon cancer from Last 3 Months or Most Recently Relevant to Health Maintenance Results * ANTINUCLEAR ANTIBODY BY IFA (01/18/2025 2:53 PM CDT) JASON SCREEN, IFA NEGATIVE NEGATIVE [facility] Comment: JASON IFA is a first line screen for detecting the presence of up to approximately 150 autoantibodies in various autoimmune diseases. A negative JASON IFA result suggests an JASON-associated autoimmune disease is not present at this time, but is not definitive. If there is high clinical suspicion for Sjogren's syndrome, testing for anti-SS-A/Ro antibody should be considered. Anti-Maryan-1 antibody should be considered for clinically suspected inflammatory myopathies. AC-0: Negative International Consensus on JASON Patterns (https://doi.org/10.1515/wedn-6807-0842) For additional information, please refer to http://education.Comprehend Systems/faq/ODA786 (This link is being provided for informational/ educational purposes only.) Blood BLOOD SPECIMEN / Unknown 01/18/2025 2:53 PM CDT 01/18/2025 2:55 PM CDT us Axel Palomo MD CHEMISTRY Final Re sult [employer] [facility] [address] [place] [address], [facility] [address] [place] [address] * (ABNORMAL) HEMOGLOBIN A1C (01/18/2025 2:53 PM CDT) HEMOGLOBIN A1C 5.7(H) <5.7 % [facility] Comment: For someone without known diabetes, a hemoglobin A1c value between 5.7% and 6.4% is consistent with prediabetes and should be confirmed with a follow-up test. For someone with known diabetes, a value <7% indicates that their diabetes is well controlled. A1c targets should be individualized based on duration of diabetes, age, comorbid conditions, and other considerations. This assay result is consistent with an increased risk of diabetes. Currently, no consensus exists regarding use of hemoglobin A1c for diagnosis of diabetes for children. Blood BLOOD SPECIMEN / Unknown 01/18/2025 2:53 PM CDT 01/18/2025 2:55 PM CDT Axel Palomo MD CHEMISTRY Final Re sult [employer] [facility] [address] [place] [address], [facility] [address] [place] [address] * (ABNORMAL) LIPID PANEL W REFLEX MEASURED LDL (01/18/2025 2:53 PM CDT) CHOLESTEROL, TOTAL 275(H) <200 mg/dL [facility] HDL CHOLESTEROL 53 > OR = 50 mg/dL [facility] TRIGLYCERIDES 137 <150 mg/dL [facility] LDL-CHOLESTEROL 193(H) mg/dL (calc) [facility] [facility] Comment: LDL-C levels > or = 190 mg/dL may indicate familial hypercholesterolemia (FH). Clinical assessment and measurement of blood lipid levels should be considered for all first degree relatives of patients with an FH diagnosis. LDL Cholesterol (LDL-C) levels > or = 300 mg/dL may indicate homozygous familial hypercholesterolemia (HoFH). Untreated, these extremely high LDL-C levels can result in premature CV events and mortality. Patients should be identified early and provided appropriate interventions to reduce the cumulative LDL-C burden from . For questions about testing for familial hypercholesterolemia, please call [employer] [facility] at 1.366.GENE.INFO. Deuce Phillips, et al. J National Lipid Association Recommendations for Patient-Centered Management of Dyslipidemia: Part 1 Journal of Clinical Lipidology 2015;9(2), 129-169. Bill Giraldo et al. (2014). Homozygous familial hypercholesterolaemia: new insights and guidance for clinicians to improve detection and clinical management. Heart Journal, 35(32), 5423-1434. Reference range: <100 Desirable range <100 mg/dL for primary prevention; <70 mg/dL for patients with CHD or diabetic patients with > or = 2 CHD risk factors. LDL-C is now calculated using the Greyson-Johnson calculation, which is a validated novel method providing better accuracy than the Friedewald equation in the estimation of LDL-C. Greyson SS et al. CAPRICE. 2013;310(19): 1804-4513 (http://education.Comprehend Systems/faq/VNA428) CHOL/HDLC RATIO 5.2(H) <5.0 (calc) NCR [employer] [facility] NON HDL CHOLESTEROL 222(H) <130 mg/dL (calc) N[facility] [employer] [facility] Comment: Non-HDL level > or = 220 is very high and may indicate genetic familial hypercholesterolemia (FH). Clinical assessment and measurement of blood lipid levels should be considered for all first-degree relatives of patients with an FH diagnosis. For patients with diabetes plus 1 major ASCVD risk factor, treating to a non-HDL-C goal of <100 mg/dL (LDL-C of <70 mg/dL) is considered a therapeutic option. Blood BLOOD SPECIMEN / Unknown 01/18/2025 2:53 PM CDT 01/18/2025 2:55 PM CDT us Axel Palomo MD CHEMISTRY Final Re sult [employer] [facility] [address] [place] [address], [employer] [facility] [address] [place] [address] * (ABNORMAL) RA QUANTITATIVE (01/18/2025 2:53 PM CDT) RHEUMATOID FACTOR 22(H) <14 IU/mL [facility] Blood BLOOD SPECIMEN / Unknown 01/18/2025 2:53 PM CDT 01/18/2025 2:55 PM CDT Axel Palomo MD SEND OUTS Final Re sult [facility] [address] [place] [address], [facility] [address] [place] [address] * (ABNORMAL) CBC W PLT NO DIFF (01/18/2025 2:53 PM CDT) Only the most recent of3 resultswithin the time period is included. Pathologist [facility] WHITE BLOOD CELL COUNT 6.7 3.8 - 10.8 Thousand/u L [facility] RED BLOOD CELL COUNT 3.63(L) 3.80 - 5.10 Million/uL [facility] HEMOGLOBIN 10.8(L) 11.7 - 15.5 g/dL [facility] HEMATOCRIT 33.2(L) 35.0 - 45.0 % [facility] MCV 91.5 80.0 - 100.0 fL [facility] MCH 29.8 27.0 - 33.0 pg [facility] MCHC 32.5 32.0 - 36.0 g/dL [facility] Comment: For adults, a slight decrease in the calculated MCHC value (in the range of 30 to 32 g/dL) is most likely not clinically significant; however, it should be interpreted with caution in correlation with other red cell parameters and the patient's clinical condition. RDW 13.2 11.0 - 15.0 % [facility] PLATELET COUNT 352 140 - 400 Thousand/u L [facility] MPV 10.1 7.5 - 12.5 fL [facility] Blood BLOOD SPECIMEN / Unknown 01/18/2025 2:53 PM CDT 01/18/2025 2:55 PM CDT us Axel Palomo MD HEMATOLOGY Final Re sult [employer] [facility] [address] [place] [address], [facility] [address] [place] [address] * (ABNORMAL) COMP METABOLIC PANEL (01/18/2025 2:53 PM CDT) GLUCOSE 100(H) 65 - 99 mg/dL [facility] Comment: Fasting reference interval For someone without known diabetes, a glucose value between 100 and 125 mg/dL is consistent with prediabetes and should be confirmed with a follow-up test. UREA NITROGEN (BUN) 20 7 - 25 mg/dL [facility] CREATININE 1.24(H) 0.60 - 1.00 mg/dL [facility] EGFR 45(L) > OR = 60 mL/min/1.7 3m2 [facility] BUN/CREATININE RATIO 16 6 - 22 (calc) [facility] SODIUM 135 135 - 146 mmol/L [facility] POTASSIUM 4.1 3.5 - 5.3 mmol/L [facility] CHLORIDE 100 98 - 110 mmol/L [facility] CARBON DIOXIDE 26 20 - 32 mmol/L [facility] CALCIUM 9.9 8.6 - 10.4 mg/dL [facility] PROTEIN, TOTAL 7.4 6.1 - 8.1 g/dL [facility] ALBUMIN 4.2 3.6 - 5.1 g/dL [facility] GLOBULIN 3.2 1.9 - 3.7 g/dL (calc) [facility] ALBUMIN/GLOBULIN RATIO 1.3 1.0 - 2.5 (calc) [facility] BILIRUBIN, TOTAL 0.6 0.2 - 1.2 mg/dL [facility] ALKALINE PHOSPHATASE 68 37 - 153 U/L [facility] AST 16 10 - 35 U/L [facility] ALT 16 6 - 29 U/L [facility] Blood BLOOD SPECIMEN / Unknown 01/18/2025 2:53 PM CDT 01/18/2025 2:55 PM CDT us Axel Palomo MD CHEMISTRY Final Re sult Performing Organization Address City/[facility]/ZIP Co de Phone Number [employer] [facility] [address] [place] [address], [facility] [address] [place] [address] * (ABNORMAL) Creatinine AM (01/14/2025 6:45 AM CDT) eGFR 46(L) >90 mL/min/1.7 3m2 01/14/2025 7:25 AM CDT [facility] Comment:As of 2021, eG FR is calculated by the CKD-EPI creatinine equation without race adjustment. eGFR can be influenced by muscle mass, exercise, and diet. The reported eGFR is an estimation only and is only applicable if the renal function is stable. CREATININE 1.23(H) 0.50 - 0.90 mg/dL 01/14/2025 7:25 AM CDT [facility] Blood BLOOD SPECIMEN / Unknown Venipuncture / Unknown 01/14/2025 6:45 AM CDT 01/14/2025 6:57 AM CDT us Isabella Thomas MD CHEMISTRY Final Resul t [facility] [address] [place] [address], [place] * PATH TISSUE EXAM (01/13/2025 11:31 AM CDT) Only the most recent of2 resultswithin the time period is included. Case Report Pathology Report Case: [id number] Authorizing Provider: Sarah Coto Collected: 01/13/2025 1131 MD El Ordering Location: [facility] Received: 01/13/2025 1153 [facility] Pathologist: Quiana Gutierrez MD Specimen: Cervical Biopsy 01/17/2025 4:59 PM CDT [facility] Final Diagnosis A) UTERINE CERVIX, BIOPSY: 1. 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 Histologic grade: Moderately differentiated b. Maximum tumor size/depth of invasion: Measurements deferred c. Background high-grade squamous intraepithelial lesion (CIN3) 2. See comment 01/17/2025 4:59 PM CDT [facility] at 1659 CDT Comment The slides demonstrate an invasive squamous cell carcinoma arising in a background of precursor QUEENIE 3, consistent with an HPV associated process. P16 overexpression is confirmatory. The invasive component demonstrates both basaloid and adenoid basal patterns with focal associated calcifications, patterns of which have no further prognostic relevance in the setting of the described clinical presentation. Histologic measurements are deferred considering the clinical exam findings consistent with higher stage disease than would be measured histologically. Case seen in consultation with Dr. Arceo. Dr. Gutierrez notified Dr. Coto on 01/17/2025 at 4:07 PM via secure chat message. 01/17/2025 4:59 PM CDT [facility] ENTRAL LABORATORY Clinical Information Uterine/cervical mass with concern for bladder and rectal invasion. No Pap history at [facility]. Presented with acute renal failure and found to have bilateral hydronephrosis associated with uterine/cervical mass. Per operative note, firm tumor palpated top of vagina, cervix not able to be visualized. Bilateral pelvic sidewall involvement on rectovaginal exam, uterus/cervix enlarged and fixed on bimanual exam, no obvious bladder mucosal involvement on cystoscopy. Tumor palpable through rectum, but no tumor on rectal mucosa. 01/17/2025 4:59 PM CDT [facility] Gross Description A) Received fresh labeled with the patient's name and cervical biopsy, is a 1.5 x 1.5 x 0.5 cm aggregate of blunt-pink polypoid rubbery tissue fragments admixed with clotted blood and mucus. The specimen is submitted entirely in 1 cassette. [facility] 01/13/2025 01/17/2025 4:59 PM CDT [facility] Microscopic Description The final diagnosis is based on microscopic examination of appropriate sections of all specimens. Immunostains were performed using block A1 with results as follows: P16: Diffusely overexpressed P40: Diffusely positive A special stain was performed using block A1 with result as follows: Mucicarmine: Negative The ancillary stain results support the diagnosis. 01/17/2025 4:59 PM CDT [facility] Additional Information Interpreted at [facility] - [address] [place] [id number] Immunohistochemist ry controls were reviewed and approved as appropriate by the pathologist during this examination. 01/17/2025 4:59 PM CDT [facility] Biopsy (Cervical Biopsy) 01/13/2025 11:31 AM CDT 01/13/2025 11:53 AM CDT us Sarah Coto MD PATHOLOGY/CYTOLOGY Final Result [facility] [address] [place] [address], [place] * TYPE & SCREEN (01/13/2025 8:22 AM CDT) ABORH O Rh Positive 01/13/2025 9:17 AM CDT [facility] ANTIBODY SCREEN Negative Negative 01/13/2025 9:17 AM CDT [facility] B[facility]OD [facility] SPECIMEN EXPIRATION DATE/TIME 01/16/25 23:59 01/13/2025 9:17 AM CDT [facility] Blood BLOOD SPECIMEN / Unknown Non-Lab Venipuncture / Unknown 01/13/2025 8:22 AM CDT 01/13/2025 8:33 AM CDT us Isabell DAI BLOOD BANK Final Res ult Performing Organization Address City/[facility]/ZIP Co de Phone Number [facility] [address] [place] [address], * (ABNORMAL) Hemoglobin AM (01/12/2025 6:40 AM CDT) Only the most recent of4 resultswithin the time period is included. HEMOGLOBIN 9.5(L) 12.0 - 16.0 g/dL 01/12/2025 7:15 AM CDT [facility] MCV 92 80 - 100 fL 01/12/2025 7:15 AM CDT [facility] Blood BLOOD SPECIMEN / Unknown Venipuncture / Unknown 01/12/2025 6:40 AM CDT 01/12/2025 7:05 AM CDT us Isabella Thomas MD HEMATOLOGY Final Resul t Performing Organization Address City/[facility]/ZIP Co de Phone Number [facility] [address] [place] [address], * (ABNORMAL) Basic metabolic panel AM (01/12/2025 6:40 AM CDT) Only the most recent of6 resultswithin the time period is included. SODIUM 138 136 - 145 mmol/L 01/12/2025 7:37 AM CDT [facility]AT[facility] POTASSIUM 3.8 3.5 - 5.1 mmol/L 01/12/2025 7:37 AM CDT [facility] CHLORIDE 104 98 - 107 mmol/L 01/12/2025 7:37 AM CDT [facility] CO2,TOTAL 21(L) 22 - 29 mmol/L 01/12/2025 7:37 AM CDT [facility] ANION GAP 13 5 - 18 01/12/2025 7:37 AM CDT [facility] GLUCOSE 103(H) 70 - 99 mg/dL 01/12/2025 7:37 AM CDT [facility] CALCIUM 9.2 8.8 - 10.4 mg/dL 01/12/2025 7:37 AM CDT [facility] Comment: Reference ranges for this test were updated on 07/27/2024 to reflect our healthy population more accurately. Reference range changes are not retroactively applied to results, but previous results using the same methodology can be interpreted in the context of the new reference range. BUN 25(H) 8 - 23 mg/dL 01/12/2025 7:37 AM CDT [facility] CREATININE 1.27(H) 0.50 - 0.90 mg/dL 01/12/2025 7:37 AM CDT [facility] BUN/CREAT RATIO 20 10 - 20 7:37 AM CDT [facility] eGFR 44(L) >90 mL/min/1. 73m2 01/12/2025 7:37 AM T [facility] TR[facility] Comment:As of 2021, eG FR is calculated by the CKD-EPI creatinine equation without race adjustment. eGFR can be influenced by muscle mass, exercise, and diet. The reported eGFR is an estimation only and is only applicable if the renal function is stable. Blood BLOOD SPECIMEN / Unknown Venipuncture / Unknown 01/12/2025 6:40 AM CDT 01/12/2025 7:05 AM CDT us Isabella Thomas MD CHEMISTRY Final Resul t [facility] [address] [place] [address], [place] * MR PELVIS WWO (01/10/2025 3:08 PM CDT) Anatomical Region Laterality Modality Pelvis Magnetic Resonan ce 01/11/2025 9:11 AM CDT Impressions 01/11/2025 9:11 AM CDT Large enhancing spiculated cervical mass, which extends into the posterior bladder wall, and through the anterior mesorectal fascia (FIGO stage BRICE). There are also spiculations contacting the anterior rectal wall, which may represent tumor spiculation, though scarring from prior endometrial implants can also have this appearance. No lymphadenopathy. Dictated by Venus Live MD @ 01/11/2025 9:11:56 AM (Electronically Signed) Narrative 01/11/2025 9:11 AM CDT For Patients: As a result of the Cures Act, medical imaging exams and procedure reports are released immediately into your electronic medical record. You may view this report before your referring provider. If you have questions, please contact your health care provider. INDICATION: Concern for uterine cancer COMPARISON: CT abdomen pelvis 01/06/2025, ultrasound pelvis 01/06/2025 TECHNIQUE: Mulitplanar, mutliparametric MR imaging of the pelvis without and with intravenous contrast. Contrast: 10 mL Gadavist FINDINGS: Uterus size: 6.6 x 6.1 x 8.2 centimeters. Normal endometrial thickness measuring 0.3 centimeters. Multiple uterine fibroids with resulting distortion of the endometrium, the largest is along the posterior uterine body measuring 5.1 x 5.3 x 4.7 centimeters (12/31, 05/10). There is a exophytic calcified fibroid along the left posterior uterine wall. Some fibroids demonstrate mild internal T1 hyperintensity, which may be related to underlying red degeneration. Cervix: Enhancing large spiculated cervical mass measures 4.7 x 4.2 x 4.1 centimeters (, ). There is no associated diffusion restriction. There is a defect along the cervical wall at 5 o`clock, which may related to prior sampling or a small nabothian cyst. Parametrial invasion: Extension of the mass through the parametrium, with loss of the parametrial stripe. Vaginal invasion: Involvement of the superior most aspect of the vagina (within the upper third) Pelvic sidewall: No definite extension to the pelvic sidewall. Ureteral dilatation = No evidence of ureteral dilation, however this is likely related to presence of nephrostomy tubes and ureteral dilation was present on the prior CT. Invasion of other organs: Invasion of the cervical mass into the posterior bladder wall in the region of the trigone (). The mass also extends posteriorly through the mesorectal fascia anteriorly from 11:00 to 2:00, with spiculations extending to the rectum (03/06, ) at 12 o`clock. The spiculation is markedly T2 hypointense, and scarring from prior endometriosis implants can also have this appearance. Ovaries: Atrophic ovaries. Bladder: Invasion of the bladder as described above. Bowel: Involvement of the anterior rectal wall as described above. Lymph nodes: No enlarged lymph nodes. Bones: Periarticular cyst along the right hip measuring 2.1 x 0.9 centimeters (01/07). Peritoneum: Trace pelvic free fluid. Procedure Note Venus Live MD - 01/11/2025 For Patients: As a result of the Century Cures Act, medical imagingexams and procedure reports are released immediately into your electronicmedical record. You may view this report before your referring provider.If you have questions, please contact your health care provider. INDICATION: Concern for uterine cancer COMPARISON: CT abdomen pelvis 01/06/2025, ultrasound pelvis 01/06/2025 TECHNIQUE: Mulitplanar, mutliparametric MR imaging of the pelvis without and withintravenous contrast. Contrast: 10 mL Gadavist FINDINGS: Uterus size: 6.6 x 6.1 x 8.2 centimeters. Normal endometrial thicknessmeasuring 0.3 centimeters. Multiple uterine fibroids with resultingdistortion of the endometrium, the largest is along the posterior uterinebody measuring 5.1 x 5.3 x 4.7 centimeters (12/31, 05/10). There is aexophytic calcified fibroid along the left posterior uterine wall. Somefibroids demonstrate mild internal T1 hyperintensity, which may be relatedto underlying red degeneration. Cervix: Enhancing large spiculated cervical mass measures 4.7 x 4.2 x 4.1centimeters (21/, 20/37). There is no associated diffusion restriction.There is a defect along the cervical wall at 5 o`clock, which may relatedto prior sampling or a small nabothian cyst. Parametrial invasion: Extension of the mass through the parametrium, withloss of the parametrial stripe. Vaginal invasion: Involvement of the superior most aspect of the vagina(within the upper third) Pelvic sidewall: No definite extension to the pelvic sidewall. Ureteral dilatation = No evidence of ureteral dilation, however this islikely related to presence of nephrostomy tubes and ureteral dilation waspresent on the prior CT. Invasion of other organs: Invasion of the cervical mass into the posteriorbladder wall in the region of the trigone (20/37). The mass also extendsposteriorly through the mesorectal fascia anteriorly from 11:00 to 2:00,with spiculations extending to the rectum (/15, 21) at 12 o`clock. Thespiculation is markedly T2 hypointense, and scarring from priorendometriosis implants can also have this appearance. Ovaries: Atrophic ovaries. Bladder: Invasion of the bladder as described above. Bowel: Involvement of the anterior rectal wall as described above. Lymph nodes: No enlarged lymph nodes. Bones: Periarticular cyst along the right hip measuring 2.1 x 0.9centimeters (01/07). Peritoneum: Trace pelvic free fluid. IMPRESSION: Large enhancing spiculated cervical mass, which extends into the posteriorbladder wall, and through the anterior mesorectal fascia (FIGO stage BRICE). There are also spiculations contacting the anterior rectal wall, which mayrepresent tumor spiculation, though scarring from prior endometrialimplants can also have this appearance. No lymphadenopathy. Dictated by Venus Live MD @ 01/11/2025 9:11:56 AM (Electronically Signed) us Isabella Thomas MD MR Final Resul t * Phosphorus AM (01/10/2025 7:01 AM CDT) PHOSPHORUS 3.4 2.5 - 4.5 mg/dL 01/10/2025 7:33 AM CDT [facility] Blood BLOOD SPECIMEN / Unknown Venipuncture / Unknown 01/10/2025 7:01 AM CDT 01/10/2025 7:06 AM CDT us Isabella Thomas MD CHEMISTRY Final Resul t [facility] [address] [place] [address], [place] * Magnesium AM (01/10/2025 7:01 AM CDT) MAGNESIUM 1.7 1.6 - 2.4 mg/dL 01/10/2025 7:33 AM CDT [facility] Blood BLOOD SPECIMEN / Unknown Venipuncture / Unknown 01/10/2025 7:01 AM CDT 01/10/2025 7:06 AM CDT us Isabella Thomas MD CHEMISTRY Final Resul t Performing Organization Address City/[facility]/ZIP Co de Phone Number [facility] [address] [place] [address], * (ABNORMAL) GLUCOSE METER (01/08/2025 4:20 PM CDT) Only the most recent of2 resultswithin the time period is included. GLUCOSE METER 159(H) 65 - 100 mg/dL 01/08/2025 4:25 PM CDT [facility] Blood BLOOD SPECIMEN / Unknown 01/08/2025 4:20 PM CDT 01/08/2025 4:25 PM CDT us Aly Colin MD CHEMISTRY Final Resu lt Performing Organization Address City/[facility] Co de Phone Number [facility] [address] [place] [address], * (ABNORMAL) RENAL FUNCTION PANEL (01/08/2025 6:48 AM CDT) Only the most recent of2 resultswithin the time period is included. SODIUM 139 136 - 145 mmol/L 01/08/2025 7:24 AM CDT [facility] POTASSIUM 3.8 3.5 - 5.1 mmol/L 01/08/2025 7:24 AM CDT [facility] CHLORIDE 101 98 - 107 mmol/L 01/08/2025 7:24 AM CDT [facility] CO2,TOTAL 24 22 - 29 mmol/L 01/08/2025 7:24 AM CDT [facility] ANION GAP 14 5 - 18 01/08/2025 7:24 AM T [facility] GLUCOSE 107(H) 70 - 99 mg/dL 01/08/2025 7:24 AM T [facility] CALCIUM 9.1 8.8 - 10.4 mg/dL 01/08/2025 7:24 AM T [facility] Comment: Reference ranges for this test were updated on 07/27/2024 to reflect our healthy population more accurately. Reference range changes are not retroactively applied to results, but previous results using the same methodology can be interpreted in the context of the new reference range. BUN 49(H) 8 - 23 mg/dL 01/08/2025 7:24 AM T [facility] CREATININE 4.54(H) 0.50 - 0.90 mg/dL 01/08/2025 7:24 AM [facility] BUN/CREAT RATIO 11 10 - 20 7:24 AM T [facility] eGFR 10(L) >90 mL/min/1. 73m2 01/08/2025 7:24 AM T [facility] Comment:As of 2021, eG FR is calculated by the CKD-EPI creatinine equation without race adjustment. eGFR can be influenced by muscle mass, exercise, and diet. The reported eGFR is an estimation only and is only applicable if the renal function is stable. PHOSPHORUS 4.8(H) 2.5 - 4.5 mg/dL 01/08/2025 7:24 AM T [facility] ALBUMIN 3.2(L) 4.0 - 4.9 g/dL 01/08/2025 7:24 AM T [facility] Blood BLOOD SPECIMEN / Unknown Butterfly / Unknown 01/08/2025 6:48 AM CDT 01/08/2025 6:56 AM CDT us Isabella Thomas MD CHEMISTRY Final Resul t [facility] [address] [place] [address], [place] * IR NEPHROSTOMY TUBE BILATERAL (01/07/2025 5:24 PM CDT) Anatomical Region Laterality Modality KIDNEYS X-Ray Angiograph y Narrative 01/08/2025 11:55 AM CDT Procedure: 1. Percutaneous bilateral nephrostomy tube placement under sonographic and fluoroscopic guidance. 2. Antegrade nephrostogram. Indication: distal ureteral obstruction, Comparison: CT abd/pelvis 01/06/25 Interventionalist: Quiana Woods MD Fluoroscopy time: 4 minutes. Reference air kerma: 15 mGy. Contrast: 30 mL Estimated Blood Loss: <10 mL Medications: midazolam 2 mg IV, fentanyl 100 mcg IV, Rocephin 1 gm IV, 1% lidocaine 10 mL subcutaneous. Sedation: Moderate Conscious sedation: 39 minutes of intraservice time. The sedation was supervised by myself and the patient's vital signs were actively monitored by an independent registered nurse. Complications: None immediate. Technique: The procedure, risks, and alternative therapies were discussed in detail, and written informed consent was obtained. A time out was performed to verify correct patient and procedure. Moderate sedation was administered as above. The patient's pulse oximetry, EKG, and blood pressure were monitored by the interventional radiology nurse at all times. Both flanks were prepped and draped in the usual sterile fashion. All elements of maximum sterile barrier technique were used. Initial ultrasound scanning demonstrated dilated left and dilated duplicated right collecting systems. Under ultrasound guidance, a left posterior calyx was targeted and an 22 gauge trocar needle was advanced into the collecting system. An ultrasound image was saved and sent to PACS. Appropriate position within the collecting system was confirmed with the reflux of urine. The access was dilated with an AccuStick set and an Amplatz wire was placed in the renal pelvis. The tract was dilated. 10 Pakistani nephrostomy catheter was inserted over the wire and a loop was formed in the renal pelvis. Contrast injection demonstrates good placement of the pigtail loop within the renal pelvis. The pigtail loop was locked. Under ultrasound guidance, a right superior collecting system posterior calyx was targeted and an 22 gauge trocar needle was advanced into the collecting system. An ultrasound image was saved and sent to PACS. Appropriate position within the collecting system was confirmed with the reflux of urine. The access was dilated with an AccuStick set and an Amplatz wire was placed in the renal pelvis. The tract was dilated. 10 Pakistani nephrostomy catheter was inserted over the wire and a loop was formed in the renal pelvis. Contrast injection demonstrates good placement of the pigtail loop within the renal pelvis. The pigtail loop was locked. The right lower pole collecting system was then accessed in a similar fashion. A 10 F nephrostomy catheter was placed int he lower pole collecting system. All catheters were secured to the skin with 2-0 Ethilon suture and a Sara disc, covered with a sterile dressing, and connected to a drainage bag. The patient tolerated the procedure well without immediate post procedural complication. Findings: Initial ultrasound demonstrates a dilated single left and dilated duplicated right collecting systems. 10 Pakistani nephrostomy tubes (three) were placed uneventfully in the single left and duplicated right renal collecting systems. Completion antegrade nephrostogram demonstrates satisfactory position of all three catheters. Impression: Successful placement of a single left and upper and lower pole right 10 Pakistani nephrostomy tubes using ultrasound and fluoroscopic guidance. Please contact me with any questions. Quiana Woods MD Vascular & Interventional Radiology [facility] [phone] us Isabella Thomas MD IR Final Resul t * Protime INR (01/07/2025 1:06 PM CDT) INR 1.0 <1.3 01/07/2025 1:44 PM CDT [facility] PROTIME 10.9 10.6 - 12.4 sec 01/07/2025 1:44 PM CDT [facility] Blood BLOOD SPECIMEN / Unknown Non-Lab Venipuncture / Unknown 01/07/2025 1:06 PM CDT 01/07/2025 1:22 PM CDT [facility] - 01/07/2025 1:44 PM CDT Therapeutic Range 2.0-3.0 for most anticoagulated patients 2.5-3.5 or 4.0 for high risk patients The INR is only used for patients on stable oral anticoagulant therapy. It makes no significant contribution to the diagnosis or treatment of patients whose Protime is prolonged for other reasons. INR results are increased when heparin levels exceed 1.0 U/mL, which corresponds to an aPTT >125 seconds if the patient is on UFH. us Vanessa Mckeon SANDBLAST OR SHOTBLAST EQUIPMENT TENDER HEMATOLOGY Final R esult [facility]AL LAB[facility]ATORY [address] [place] [address], [place] * COLONOSCOPY (01/07/2025 10:30 AM CDT) 01/07/2025 10:3 0 AM CDT Narrative Transcriptions William Giraldo MD - 01/07/2025 12:02 PM CDT [facility] Patient Name: Alyssa Garcia Procedure Date: 01/07/2025 Gender: Female Date of : 1950 Admit Type: Inpatient Procedure: Colonoscopy Proceduralist: William Giraldo MD - [facility] Indications/Pre-Op Diagnosis: Weight loss, hematochezia, change in bowelhabit Medications: MAC Procedure Description: The patient had risks, benefits and alternatives explained to andgave informed consent. The patient had a stable cardiopulmonary status and judged an adequate candidate for sedation. The endoscope [id number] was passed through the anus andadvanced to the cecum, identified by appendiceal orifice and ileocecal valve.The colonoscopy was performed without difficulty. The patient toleratedthe procedure well. The quality of the bowel preparation was poor with a large amount of retained opaque liquid stool, that could not becleared and at least 30 percent obscured; lesions could easily have beenmissed. The ileocecal valve and the appendiceal orifice were photographed. Complications: No immediate complications. Estimated Blood Loss & Specimen: Estimated blood loss: minimal Findings: The colonic mucosa was normal throughout; no blood, lesions or diverticulosis seen; random biopsies taken for microscopic colitis.As noted above, the prep was poor and lesions could have been missed. Impressions/Post-Op Diagnosis: Negative colon exam; limited by prep Recommendation: - Check path - Resume diet - Consider repeat colonoscopy in 1 year vs cologuard due to the poorprep William Giraldo MD 01/07/2025 12:02:54 PM This report has been signed electronically. Note Initiated On: 01/07/2025 10:30 AM William Giraldo MD PROCEDURE ORD Final Result * ENDOSCOPY (01/07/2025 10:28 AM CDT) 01/07/2025 10:2 8 AM CDT Narrative Transcriptions William Giraldo MD - 01/07/2025 11:30 AM CDT [facility] Patient Name: Alyssa Garcia Procedure Date: 01/07/2025 Gender: Female Date of : 1950 Admit Type: Inpatient Procedure: Upper GI endoscopy Proceduralist: William Giraldo MD - [facility] Indications/Pre-Op Diagnosis: Weight loss, anemia, change in bowel habit Medications: MAC Procedure Description: Risk of bleeding, infection, perforation, need for surgery and alternatives discussed. The Endoscope was introduced through the mouth, and advanced to the second part of duodenum. The upper GI endoscopy was accomplishedwithout difficulty. The patient tolerated the procedure well. Complications: No immediate complications. Estimated Blood Loss & Specimen: minimal Findings: Esophagus - normal. Stomach - normal. Duodenum - normal; randomly biopsied for sprue. Impressions/Post-Op Diagnosis: Negative exam today; biopsied Recommendation: Check path Proceed with colonoscopy William Giraldo MD 01/07/2025 11:29:58 AM This report has been signed electronically. Note Initiated On: 01/07/2025 10:28 AM William Giraldo MD PROCEDURE ORD Final Result * (ABNORMAL) URINALYSIS MICROSCOPIC (01/06/2025 2:51 PM CDT) RBC 3-5(A) 0-2, None Seen /HPF 01/06/2025 3:25 PM CDT [facility] [facility] WBC >100(A) 0-2, 3-5, None Seen /HPF 01/06/2025 3:25 PM CDT [facility] BACTERIA Few None Seen, Rare, Few Bacteria/H PF 01/06/2025 3:25 PM CDT [facility] EPITHELIAL CELLS Few None Seen, Few Epi/HPF 01/06/2025 3:25 PM CDT [facility] HYALINE CASTS 3-5 0-2, 3-5 /LPF 01/06/2025 3:25 PM CDT [facility] Urine URINE SPECIMEN / Unknown Non-Blood / Unknown 01/06/2025 2:51 PM CDT 01/06/2025 3:00 PM CDT Petra Beavers MD URINE Final R esult Performing Organization Address [facility]/ZIP Co de Phone Number [facility] [address] [address], [place] * Urine culture - clean catch (01/06/2025 2:51 PM CDT) CULTURE No growth (<1,000 CFU/mL) 01/07/2025 2:07 PM CDT [facility] Urine URINE SPECIMEN / Unknown Non-Blood / Unknown 01/06/2025 2:51 PM CDT 01/06/2025 3:00 PM CDT Petra Beavers MD MICROBIOLOGY Final R esult Performing Organization Address City/[facility] Co de Phone Number [facility] [address] [place] [address], [place] * (ABNORMAL) Urinalysis STAT (01/06/2025 2:51 PM CDT) COLOR Yellow Yellow Color 01/06/2025 3:25 PM CDT [facility] CLARITY Cloudy(A) Clear Clarity 01/06/2025 3:25 PM CDT [facility] SPECIFIC GRAVITY,URINE <=1.005(A) 1.010, 1.015, 1.020, 1.025 01/06/2025 3:25 PM CDT [facility] PH,URINE 6.0 6.0, 7.0, 8.0, 5.5, 6.5, 7.5, 8.5 01/06/2025 3:25 PM CDT [facility] UROBILINOGEN, QUALITATIVE Normal Normal EU/dl 01/06/2025 3:25 PM CDT [facility] PROTEIN, URINE 100(A) Negative mg/dL 01/06/2025 3:25 PM CDT [facility] GLUCOSE, URINE Negative Negative mg/dL 01/06/2025 3:25 PM CDT [facility] KETONES,URINE Negative Negative mg/dL 01/06/2025 3:25 PM CDT [facility] BILIRUBIN,URI NE Negative Negative 01/06/2025 3:25 PM CDT [facility] OCCULT BLOOD,URINE Large(A) Negative 01/06/2025 3:25 PM CDT [facility] NITRITE Negative Negative 01/06/2025 3:25 PM CDT [facility] LEUKOCYTE ESTERASE Large(A) Negative 01/06/2025 3:25 PM CDT [facility] Urine URINE SPECIMEN / Unknown Non-Blood / Unknown 01/06/2025 2:51 PM CDT 01/06/2025 3:00 PM CDT us Petra Beavers MD URINE Final R esult [facility] [address] [place] [address], [place] * US PELVIS COMPLETE TA AND TV (01/06/2025 2:11 PM CDT) Anatomical Region Laterality Modality Pelvis Ultrasound 01/06/2025 2:45 PM CDT Impressions 01/06/2025 2:45 PM CDT 1. Large right-sided uterine fibroid. 2. Moderately thickened endometrium. In a postmenopausal female endometrial carcinoma would not be excluded. 3. Ovaries could not be visualized. The lower uterine segment also could not be optimally assessed due to patient discomfort. Dictated by Chris Medeiros MD @ 01/06/2025 2:45:55 PM (Electronically Signed) Narrative 01/06/2025 2:45 PM CDT For Patients: As a result of the Century Cures Act, medical imaging exams and procedure reports are released immediately into your electronic medical record. You may view this report before your referring provider. If you have questions, please contact your health care provider. INDICATION: Abnormal bleeding TECHNIQUE: Ultrasound pelvis transabdominal and transvaginal for better assessment or to better visualize the endometrium. COMPARISON: CT scan FINDINGS: Uterus: 9 centimeters in length. Large 6 centimeter fibroid heterogeneous right uterine corpus. Endometrium: 1.7 cm in thickness. No sign of endometrial mass or fluid. Cul-de-sac: No significant free fluid. Procedure Note Chris Medeiros MD - 01/06/2025 For Patients: As a result of the Century Cures Act, medical imagingexams and procedure reports are released immediately into your electronicmedical record. You may view this report before your referring provider.If you have questions, please contact your health care provider. INDICATION: Abnormal bleeding TECHNIQUE: Ultrasound pelvis transabdominal and transvaginal for better assessment orto better visualize the endometrium. COMPARISON: CT scan FINDINGS: Uterus: 9 centimeters in length. Large 6 centimeter fibroid heterogeneous right uterine corpus. Endometrium: 1.7 cm in thickness. No sign of endometrial mass or fluid. Cul-de-sac: No significant free fluid. IMPRESSION: 1. Large right-sided uterine fibroid. 2. Moderately thickened endometrium. In a postmenopausal femaleendometrial carcinoma would not be excluded. 3. Ovaries could not be visualized. The lower uterine segment also couldnot be optimally assessed due to patient discomfort. Dictated by Chris Medeiros MD @ 01/06/2025 2:45:55 PM (Electronically Signed) us Isabella Thomas MD Final Resul t * (ABNORMAL) FOLIC ACID (01/06/2025 6:15 AM CDT) FOLIC ACID 4.5(L) 4.6 - 34.8 ng/mL 01/06/2025 7:38 AM CDT [facility] Blood BLOOD SPECIMEN / Unknown Venipuncture / Unknown 01/06/2025 6:15 AM CDT 01/06/2025 6:35 AM CDT Narrative [facility] - 01/06/2025 7:38 AM CDT Biotin supplements may cause clinically significant interference for this test assay. If interference is suspected, it is strongly recommended that biotin is discontinued for at least one week prior to retesting. us Petra Beavers MD CHEMISTRY Final R esult [facility] [address] [place] [address], [place] * CT abdomen/pelvis without IV contrast (01/06/2025 3:15 AM CDT) Anatomical Region Laterality Modality Abdomen, Pelvis, AORTA, LIVER, SPLEEN Computed Tomography 01/06/2025 8:51 AM CDT Narrative 01/06/2025 8:51 AM CDT For Patients: As a result of the Cures Act, medical imaging exams and procedure reports are released immediately into your electronic medical record. You may view this report before your referring provider. If you have questions, please contact your health care provider. Indication: Decreasing urine output renal failure concern for urinary obstruction based on prior imaging no hydronephrosis Technique: Volumetric multidetector CT images of the abdomen and pelvis were without the administration of intravenous contrast. Comparison: CT chest, abdomen and pelvis without contrast October 21, 2024 Findings: There is basilar atelectasis and parenchymal scarring trace right basilar effusion. The liver is normal in attenuation without intrahepatic biliary ductal dilatation. The gallbladder is unremarkable without evidence of radiopaque calculus. There is no significant common biliary ductal dilatation or abrupt cut off. The spleen is normal in attenuation and size. The stomach and duodenum are grossly unremarkable. The pancreas is normal in attenuation without significant atrophy. The adrenal glands are unremarkable. There is again seen right-sided hydronephrosis with new left-sided hydronephrosis with markedly increased bilateral perinephric stranding. There is a duplicated right collecting system dilatation there was the upper and lower pole moieties. There is no obvious distal obstructive calculus with marked thickening of the urinary bladder with additional pericystic inflammatory changes. There is mild stool seen throughout the colon with diffusely decompressed appearance of the small bowel. No obvious diverticulosis. There is questionable moderate inflammatory change within the central pelvis with minimal perirectal and presacral edema. The appendix is unremarkable. There are reactive appearing retroperitoneal lymph nodes. There is demonstration of an enlarged fibroid uterus. There is demonstration of somewhat irregular appearance of the lower uterine segment measuring up to 5.2 centimeters similar to remote comparison likely corresponding to the lower uterine segment and or upper cervix. The aorta is nonaneurysmal with scattered atherosclerotic calcifications. There is minimal fluid tracking along the bilateral pericolic gutter without evidence of intra-abdominal free air. The anterior abdominal wall is intact without significant hernias. Moderate degenerative changes of the lumbar spine are appreciated without acute osseous abnormality. Impression: 1. Interval development of worsening right and new left-sided hydronephrosis with marked perinephric stranding and periureteral stranding as well as thickening and pericystic inflammatory changes of the bladder and central pelvis. Findings are concerning for underlying pyelonephritis changes. There is a portion of the lower uterine segment similar to previous exam which has somewhat ill-defined margins for which an underlying cervical or lower uterine mass lesion is difficult to exclude. Consider further evaluation with pelvic sonogram versus pelvic MRI for improved characterization of female pelvic anatomy and the distal aspects of the ureters. Please note that all CT scans at this facility use dose modulation, iterative reconstruction, and/or weight-based dosing when appropriate to reduce radiation dose to as low as reasonably achievable. Dictated by Percy Sanchez MD @ 01/06/2025 8:51:06 AM (Electronically Signed) Procedure Note Percy Sanchez MD - 01/06/2025 For Patients: As a result of the Century Cures Act, medical imagingexams and procedure reports are released immediately into your electronicmedical record. You may view this report before your referring provider.If you have questions, please contact your health care provider. Indication: Decreasing urine output renal failure concern for urinary obstructionbased on prior imaging no hydronephrosis Technique: Volumetric multidetector CT images of the abdomen and pelvis were withoutthe administration of intravenous contrast. Comparison: CT chest, abdomen and pelvis without contrast October 21, 2024 Findings: There is basilar atelectasis and parenchymal scarring trace right basilareffusion. The liver is normal in attenuation without intrahepatic biliary ductaldilatation. The gallbladder is unremarkable without evidence of radiopaque calculus. There is no significant common biliary ductal dilatation or abrupt cutoff. The spleen is normal in attenuation and size. The stomach and duodenum are grossly unremarkable. The pancreas is normal in attenuation without significant atrophy. The adrenal glands are unremarkable. There is again seen right-sided hydronephrosis with new left-sidedhydronephrosis with markedly increased bilateral perinephric stranding.There is a duplicated right collecting system dilatation there was theupper and lower pole moieties. There is no obvious distal obstructivecalculus with marked thickening of the urinary bladder with additionalpericystic inflammatory changes. There is mild stool seen throughout the colon with diffusely decompressedappearance of the small bowel. No obvious diverticulosis. There isquestionable moderate inflammatory change within the central pelvis withminimal perirectal and presacral edema. The appendix is unremarkable. There are reactive appearing retroperitoneal lymph nodes. There is demonstration of an enlarged fibroid uterus. There isdemonstration of somewhat irregular appearance of the lower uterinesegment measuring up to 5.2 centimeters similar to remote comparisonlikely corresponding to the lower uterine segment and or upper cervix. The aorta is nonaneurysmal with scattered atheroscleroticcalcifications. There is minimal fluid tracking along the bilateral pericolic gutterwithout evidence of intra-abdominal free air. The anterior abdominal wall is intact without significant hernias. Moderate degenerative changes of the lumbar spine are appreciated withoutacute osseous abnormality. Impression: 1. Interval development of worsening right and new left-sidedhydronephrosis with marked perinephric stranding and periureteralstranding as well as thickening and pericystic inflammatory changes of thebladder and central pelvis. Findings are concerning for underlyingpyelonephritis changes. There is a portion of the lower uterine segmentsimilar to previous exam which has somewhat ill-defined margins for whichan underlying cervical or lower uterine mass lesion is difficult toexclude. Consider further evaluation with pelvic sonogram versus pelvicMRI for improved characterization of female pelvic anatomy and the distalaspects of the ureters. Please note that all CT scans at this facility use dose modulation,iterative reconstruction, and/or weight-based dosing when appropriate toreduce radiation dose to as low as reasonably achievable. Dictated by Percy Sanchez MD @ 01/06/2025 8:51:06 AM (Electronically Signed) us Petra Beavers MD CT Final R esult * 12 Lead EKG (01/06/2025 12:36 AM CDT) Interpretation Sinus rhythm with 1st degree A-V block Left axis deviation Moderate voltage criteria for LVH, may be normal variant ( R in aVL , [place] product ) Abnormal ECG No previous ECGs available BEYOND NOW Ventricular Rate 75 BPM BEYOND NOW Atrial Rate 75 BPM BEYOND NOW P-R Interval 254 ms BEYOND NOW QRS Duration 86 ms BEYOND NOW QT 400 ms BEYOND NOW QTc 446 ms BEYOND NOW P Anthony 49 degrees BEYOND NOW R Anthony -40 degrees BEYOND NOW T Anthony 42 degrees BEYOND NOW 01/06/2025 12:3 6 AM CDT 01/06/2025 5:49 PM CDT Petra Beavers MD EKG ORD Final R esult Performing Organization Address City/[facility]/ZIP Co de Phone Number [facility] NOW [place], [place] * (ABNORMAL) IRON PLUS IRON BINDING CAP (01/06/2025 12:35 AM CDT) Pathologist [facility] IRON 44 37 - 145 ug/dL 01/06/2025 3:35 AM CDT [facility] UIBC (UNSATURATED) 195 112 - 347 ug/dL 01/06/2025 3:35 AM CDT [facility] IRON BINDING CAPACITY 239(L) 250 - 400 ug/dL 01/06/2025 3:35 AM CDT [facility] IRON,% SATURATION 18 14 - 50 % 01/06/2025 3:35 AM CDT [facility] Blood BLOOD SPECIMEN / Unknown Butterfly / Unknown 01/06/2025 12:35 AM CDT 01/06/2025 12:40 AM CDT us Petra Beavers MD CHEMISTRY Final R esult [facility] [address] [place] [address], * (ABNORMAL) Ferritin AM (01/06/2025 12:35 AM CDT) Pathologist [facility] FERRITIN 536.0(H) 15.0 - 150.0 ng/mL 01/06/2025 3:02 AM CDT [facility] Blood BLOOD SPECIMEN / Unknown Butterfly / Unknown 01/06/2025 12:35 AM CDT 01/06/2025 12:40 AM CDT Petra Beavres MD CHEMISTRY Final R esult Performing Organization Address [facility] Co de Phone Number [facility] [address] [address], [place] * (ABNORMAL) Vitamin B12 level AM (01/06/2025 12:35 AM CDT) Pathologist [facility] VITAMIN B12 >4,000(H) 232 - 1,245 pg/mL 01/06/2025 4:05 AM CDT [facility] Blood BLOOD SPECIMEN / Unknown Butterfly / Unknown 01/06/2025 12:35 AM CDT 01/06/2025 12:40 AM CDT Narrative [facility] - 01/06/2025 4:05 AM CDT Biotin supplements may cause clinically significant interference for this test assay. If interference is suspected, it is strongly recommended that biotin is discontinued for at least one week prior to retesting. Petra Beavers MD CHEMISTRY Final R esult Performing Organization Address [facility] Co de Phone Number [facility] [address] [address], [place] * SCAN-CARDIAC STRIP (01/05/2025 12:00 AM CDT) Narrative 01/05/2025 12:00 AM CDT Ordered by an unspecified provider. Other Clinical Staff OTHER Final Resul t * H PYLORI ANTIGEN,STOOL (11/04/2024 10:21 AM DIRECTOR DIVERSITY) HELICOBACTER PYLORI AG, EIA, STOOL SEE NOTE [facility] Comment: HELICOBACTER PYLORI AG, EIA, STOOL Micro Number: [id number] Test Status: Final Specimen Source: Stool/feces Specimen [...] STOOL SPECIMEN / Unknown 11/04/2024 10:21 AM DIRECTOR DIVERSITY 11/04/2024 10:21 AM [facility] Axel Palomo MD MICROBIOLOGY Final Re sult [employer] [facility] [address] [place] [address], [employer] [facility] [address] [place] [address] * STOOL PATHOGEN MULTIPLEX PCR PANEL (11/04/2024 10:17 AM DIRECTOR DIVERSITY) Pathologist [facility] Campylobacter NOT Detected NOT Detected 11/05/2024 10:46 AM [facility] Salmonella NOT Detected NOT Detected 11/05/2024 10:46 AM [facility] Shigella NOT Detected NOT Detected 11/05/2024 10:46 AM [facility] Vibrio NOT Detected NOT Detected 11/05/2024 10:46 AM [facility] Yersinia Enterocolitica NOT Detected NOT Detected 11/05/2024 10:46 AM [facility] Shiga Toxin 1 NOT Detected NOT Detected 11/05/2024 10:46 AM [facility] Shiga Toxin 2 NOT Detected NOT Detected 11/05/2024 10:46 AM [facility] Norovirus NOT Detected NOT Detected 11/05/2024 10:46 AM [facility] Rotavirus NOT Detected NOT Detected 11/05/2024 10:46 AM [facility] Stool STOOL SPECIMEN / Unknown Non-Blood / Unknown 11/04/2024 10:17 AM DIRECTOR DIVERSITY 11/04/2024 10:17 AM DIRECTOR DIVERSITY Narrative [facility] - 11/05/2024 10:46 AM DIRECTOR DIVERSITY This test is a Culture Independent Diagnostic Test (CIDT) therefore isolates are not available for susceptibility testing. Antibiotic treatment is often contraindicated and may be detrimental in cases of enteric infections, thus routine susceptibility testing is not recommended. us Axel Palomo MD MICROBIOLOGY Final Re sult [facility] [address] [place] [address], [place] * ANTI HCV (06/11/2023 12:43 PM CDT) HEPATITIS C ANTIBODY Non-Reacti ve Non-React paresh 06/12/2023 9:16 AM CDT [facility] Comment:Please note, per www [...] Andrade DO SEND OUTS Final Resu lt [facility] SENDOUT INTERNAL [facility] [address] [place] [address] * SDNA-FIT EXTERNAL (COLOGUARD) (06/18/2022 5:30 AM CDT) NONINV COLON CA DNA+OCC BLD SCRN STL-IMP Negative Negative 06/22/2022 8:52 AM CDT [employer] (CLIA #:[id number]) Comment: NEGATIVE TEST RESULT. A negative Cologuard [...] (Timmy Judge al, N Engl J Med 2014;370(14):2872-2733) The normal value (reference range) for this assay is negative. COLOGUARD RE-SCREENING RECOMMENDATION: Periodic colorectal cancer screening is an important part of preventive healthcare for asymptomatic individuals at average risk for colorectal cancer. Following a negative Cologuard result, the [place] Cancer Society and U.S. Multi-Society Task Force screening guidelines recommend a Cologuard re-screening interval of 3 years. References: [place] Cancer Society Guideline for Colorectal Cancer Screening: https://www.cancer.org/cancer/jasdt-vmmwls-bjdqan/nnistmaza-nlejyiljc-wqagvtm/ac s-rec ommendations.html.; Fidel GEORGE, Joann العلي, Maribell McneilK, Colorectal Cancer Screening: Recommendations for Physicians and Patients from the U.S. Multi-Society Task Force on Colorectal Cancer Screening , Am J Gastroenterology 2017; 112:0131-9357. TEST DESCRIPTION: Composite algorithmic analysis of stool [...] Hobson et al, N Engl J Med 2014;370(14):4853-6522.) Cologuard may produce a false negative or false positive result (no colorectal cancer or precancerous polyp present at colonoscopy follow up). A negative Cologuard test result does not guarantee the absence of CRC or advanced adenoma (pre-cancer). The current Cologuard screening interval is every 3 years. ([place] Cancer Society and U.S. Multi-Society Task Force). Cologuard performance data in a 10,000 patient pivotal study using colonoscopy as the reference method can be accessed at the following location: www.Aqdot/results. Additional description of the Cologuard test process, warnings and precautions can be found at www.[employer]. Stool specimen (specimen) (Rectum) 06/18/2022 5:30 AM CDT 06/19/2022 11:50 AM CDT us Marivel Andrade DO URINE Final Resu lt [employer] (CLIA #:[id number]) [place] [place] [address], from Last 3 Months or Most Recently Relevant to Health Maintenance Insurance [employer] [employer] [place] BLUE MR PB ONLY MEDICARE PART A HB ONLY MEDICARE PART B HB ONLY [place] [place] BLUE HB ONLY [place] BL[place] HB ONLY MEDICARE PPS Advance Directives Documents on File Type Date Recorded Patient Legal Associate Expl anation Healthcare Directive 04/17/2018 12:52 PM * Full Code (Latest Code Status on File) Date Activated Date Inactivated Comments 01/06/2025 12:27 AM 01/14/2025 3:02 PM Question Answer Comments Code Status Discussion: Reviewed Preferences Care Teams Tailings Worker Relationship Specialty Start Date End Date Votel, Axel Thomas MD [address] [place] [address] PCP - General Family Practice 01/04/25 [place] [id number] [address] 01/14/25
--- OUTSIDE RECORDS SUMMARY | 2025-01-22 05:05 | XMS_ITS | Clinical Summary ---
Author Organization [facility] Address [address], [place] [address] Care Team Providers Care Channel Business Manager Name Role Phone Jorge Luis Cortez DO Primary Care Provider [phone] Source Comments You are receiving this document as you are listed as the primary care provider,follow-up provider, or the patient has been referred to you for consultation.This is in compliance with the Medicare andPrem[facility] Health [facility] Medical Centercaid EHR Incentive Program,which states Providers who transition their patient to another setting of careor provider of care or refers their patient to another provider of care shouldprovide summary care record for each transition of care or referral. [employer] Allergies No known active allergies Medications hydroCHLOROthia [...] Info) Description 02/10/2025 2:45 PM CDT Appointment [facility] [address] [place] [address] Tasia Michael MD [address] [place] [id number] Health Maintenance Due Date Last Done Comments Colon Cancer Screening Plan Due 1950 Hep C Screening (Preventive Services) 1950 Medicare Annual Wellness Visit 1950 Mammogram 1950 DTaP/Tdap/Td Vaccine (1 - Tdap) 1968 Pneumococcal Vaccine 50+ Yrs (1 of 1 - PCV) 12/09/1999 Zoster/Shingles Vaccine (1 of 2) 12/09/1999 Dexa 2014 COVID-19 Vaccine ( - season) 2024 07/02/2023, 07/26/2021, 01/02/2021, Additional history exists RSV Vaccine (1 - 1-dose 75+ series) 2024 Influenza Vaccine (Season Ended) 2025 HepA Vaccine Aged Out No longer eligi [...] this topic Insurance MEDICARE MANAGED CARE [facility] [place] BL[place] Care Teams Channel Business Manager Relationship Specialty Start Date End Date Jorge Luis Cortez DO [address] [place] [address] PCP - General Family Practice 12/22/19
[2025-01-22 05:06] VITALS: BP 139/75; PULSE 78; RESP 16; TEMP 36.4; O2SAT 100; BMI 25.8
--- OUTSIDE RECORDS SUMMARY | 2025-01-22 05:06 | XMS_ITS | Patient Health Record ---
Author Organization [facility] Feng Address [address] [place], [place] [id number] Care Team Providers Care Chef De Partie Name Role Phone Dev Mckeon Primary Care Provider Allergies No Known Allergies Reason For Referral No Information Medications Medication SIG (Take, Route, Frequency, Duration) Notes Start Date End Date Status [place] 3 1000 MG 1 capsule Orally Thr [...] Problem Status W/U Status Risk Notes Problem [id number] Primary hypertension (I10) Active confirmed Vital Signs Heart Rate 70 /min 12/03/2024 Temperature 97.2 degrees Fahrenheit 12/03/2024 Respiratory Rate 16 /min 12/03/2024 Blood pressure diastolic 98 mm Hg 12/03/2024 Blood pressure systolic 158 mm Hg 12/03/2024 Weight 155.8 lbs 12/03/2024 Encounters Encounter Location Date Provider Diagnosis [facility] Foster [address] [place], [place] [phone] 12/03/2024 Dev Mckeon Abdominal bloating R14.0 and Intermittent constipation K59.09 [facility] [address] [place], [place] [phone] 12/06/2024 Dev Wilsoner Assessments Encounter Date Diagnosis [...] End Date [employer] Medicare [address] [address] [place] [address] [id number] Rosa Garcia Self - patient is the [...]
--- OUTSIDE RECORDS SUMMARY | 2025-01-22 05:06 | XMS_ITS ---
Author Organization [facility] MALAIKA saldana Address [address] [facility] [address] [place], [place] [phone] Care Team Providers Care Nail Puller Name Role Phone Dev Mckeon Primary Care Provider REASON FOR VISIT Follow Up Encounters Encounter Location Date Provider [facility] [address] [place], [place] [phone] 12/06/2024 Dev Mckeon Plan Of Treatment No Information Progress Notes * Mina PULIDOOB:1950 ([age] yo F)Acc No.[id number]:12/06/2024 Patient: Rosa SOUZA :1950 A ge:73 Y S ex:Female Address:[address] [place], [address] * * Date:
--- OUTSIDE RECORDS SUMMARY | 2025-01-22 05:06 | XMS_ITS | CCD ---
Author Name Interface, [id number] lity Address [address] [place] [address] [address] [address] Organization [facility] Address [address] [facility] [address] [place] [address] Care Team Providers Care Supervisor Paper Testing Name Role Phone Sarah Coto Unavailable Unava ilable Care Plan Date Type Value 02/02/2025 APPOINTMENT TELEHEALTH SVC N EW PT 30 MIN 01/21/2025 LABORDER PET/CT scan, sku ll base/mid thigh Reason for Visit Encounters Date Name 02/02/2025 TELEHEALTH SVC NEW P T 30 MIN Diagnostic Results Date Type Test Units Lower Limit Upper Limit Result Flag Comments Status Ordered By Specimen Source Lab Address 01/18 Misc other lab 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
--- OUTSIDE RECORDS SUMMARY | 2025-01-22 05:06 | XMS_ITS ---
Author Organization [facility] MALAIKA saldana Address [address] [place], [place] [phone] Care Team Providers Care Thoroughbred Horse Farm Manager Name Role Phone Dev Mckeon Primary Care Provider [phone] Allergies No Known Allergies REASON FOR VISIT [...] as needed Orally Once a day Active Rind[place] 3 1000 MG 1 capsule Orally Thr [...] Problem Status W/U Status Risk Notes Problem [id number] Primary hypertension (I10) Active confirmed Vital Signs Temperature 97.2 degrees Fahrenheit 12/04/19 25 Blood pressure systolic 158 mm Hg 12/04/19 25 Blood pressure diastolic 98 mm Hg 025 Heart Rate 70 /min 12/03/2024 Respiratory Rate 16 /min 12/03/2024 Weight 155.8 lbs 12/03/2024 Encounters Encounter Location Date Provider Diagnosis [facility] Foster [address] [place], [place] [phone] 12/03/2024 Dev Mckeon Abdominal bloating R14.0 and [...] * Mina PULIDOOB:1950 ([age] yo F)Acc No.[id number]:12/03/2024 Progress Notes Patient: Rosa SOUZA Provider: Sona Mckeon CNP :1950 A ge:73 Y S ex:Female Date:12/03/2024 Address:[address] [place] [address], [facility] Subjective: * Chief Complaints: * E st [...] o. 73 year old female presents to [facility] with digestive problems and pelvic cramping since [...] discontinued - Social History: Sister drove from [place] for appointment. * ROS: - Constitutional symptoms: [...] D rug/Alcohol: A lcohol: None. Pharmacy Information: [facility]. * Medications: T akingGaba Capsule 1 [...] tablet with food Orally Once a day Rindge 3 1000 MG Capsule 1 capsule Orally [...] with food Orally Once a day Taking Rindge 3 1000 MG Capsule 1 capsule Orally [...] Months * Billing Information: * Visit Code: 80028 Officeoutpatient visit, new. * Procedure Codes: * Sign off status: Completed true * Provider: Sona Mckeon CNP Date: 12/03/2024 Generated for Yosef coats/Toñito/Cydney on: 0 01/22/2025 05:05 AM CDT History and Physical Notes * HPI [...] discontinued - Social History: Sister drove from [place] for appointment. 6. Has close* contact with sully craven(s) known to have communicable illness been reported?: No Examination Category Sub-Category Detail Notes Category Not es General Examination - Hyperactive bowel sounds - Mild tenderness noted in upper abdomen - Suspected hiatal hernia identified on physical examination
--- OUTSIDE RECORDS SUMMARY | 2025-01-22 05:06 | XMS_ITS | CCD ---
Author Name Interface, [id number] [facility] Address [address] [place], [place] [id number] [facility] Address [address] [place] [address] Care Team Providers Care Fixed Wing Aircraft Flight Engineer Name Role Phone Sarah Coto Unavailable Unava ilable Care Plan Reason for Visit Encounters Diagnostic Results Problems Procedures Social History
--- NOTE | 2025-01-22 05:16 | ED_ITS ---
HPI - General Adult General Chief complaint: Post Op Complication Stated complaint: L kidney tube leaking Time Seen by Provider: 01/22/25 05:14 History of Present Illness HPI narrative: neph tubes placed at [facility] 2 weeks ago due to kidney disease. tonight noticed L side damp around dressing , still draining urine but appears to be leaking around insertion site. patient was not able to get in contact with her surgical team. denies pain or other symptoms. 74-year-old woman presenting to the emergency department with concern of malfunctioning nephrostomy tubes. Sounds like has had renal failure suspected secondary to obstructive process. Was initially seen in this emergency department and transferred to [place]. Is being seen by [facility]. She has not had any fever. Woke tonight with damp left side dressing around the left side urostomy tube. I s not having an increase in pain. Related Data Home Medications ?Medication ?Instructions ?Recorded ?Confirmed carvedilol 12.5 mg tablet 12.5 mg PO BID 01/22/25 01/22/25 Allergies Allergy/AdvReac Type Severity Reaction Status Date / Time No Known Drug Allergies Allergy Verified 01/05/25 17:11 Review of Systems Status of ROS: Reports: 6 or more systems reviewed and unremarkable except as noted in History and below PFSH PFS Social History Non-prescribed substance use: denies use service: No Exam Narrative: Exam Narrative: Pleasant. Good energy. Skin is warm and dry other than some damp dressing about the left nephrostomy tube at the left flank. Do not see any surrounding inflammation. It appears to be still in place consistent with the 2 that are draining on the right side. Abdomen is soft and nontender otherwise. Const: Vital Signs, click to edit/add: Vital Signs - 24 hr 01/22/25 05:06 Temperature 97.6 F Pulse Rate [Pulse Oximeter] 78 Respiratory Rate 16 Blood Pressure [Ri ght Upper Arm] 139/75 Pulse Oximetry 100 Oxygen Delivery Me thod Room Air Documenting provider has reviewed patient's vital signs: yes Course Vital Signs Vital signs: Initial Vital Signs Temperature 97.6 F 01/22/25 05:06 Temperature Source Temporal Artery Scan 01/22/25 05:06 Pulse Rate 78 01/22/25 05:06 Respiratory Rate 16 01/22/25 05:06 Blood Pressure 139/75 01/22/25 05:06 Blood Pressure Mean 96 01/22/25 05:06 Blood Pressure Position Supine 01/22/25 05:06 Pulse Oximetry 100 01/22/25 05:06 Oxygen Delivery Method Room Air 01/22/25 05:06 Vital Signs Temperature 97.6 F 01/22/25 05:06 Pulse Rate 78 01/22/25 05:06 Respiratory Rate 16 01/22/25 05:06 Blood Pressure 139/75 01/22/25 05:06 Pulse Oximetry 100 01/22/25 05:06 Oxygen Delivery Method Room Air 01/22/25 05:06 Temperature 97.6 F 01/22/25 05:06 Pulse Rate 78 01/22/25 05:06 Respiratory Rate 16 01/22/25 05:06 Blood Pressure 139/75 01/22/25 05:06 Pulse Oximetry 100 01/22/25 05:06 Oxygen Delivery Method Room Air 01/22/25 05:06 Medical Decision Making MDM Narrative Medical decision making narrative: Outwardly nephrostomy tubes look to be in place. I think need to verify function of tubes at this point. Does actually appear to be filling her nephrostomy bag. Over the last hour looks to have put in about 80 mL into the left side bag. Looks to be clearish yellow. Discussed with on-call interventional radiology/Urology. Confirmed approval to test placement with 10 mL flush of normal saline. This was flushed without pain and without difficulty. Normal drainage through a nephrostomy tube on reexamination without wetting dressing. I suspect that had been somehow lying on the tube and was transiently obstructed from kinking of the tube. See patient discharge plan for further discussion Medical Records Medical records reviewed: Yes I reviewed the patient's medical records Discharge Plan Discharge Clinical Impression: Post-operative complication Patient Disposition: Home w/ Parent or Adult Condition: Improved Additional Instructions: Happy these appear to be working well now. Return as needed. Prescriptions: No Action carvedilol 12.5 mg tablet 12.5 mg PO BID Follow Up/Referrals: Axel Palomo MD [Primary Care Provider] - Stand Alone [facility]: [facility] Info Instructions
--- OUTSIDE RECORDS SUMMARY | 2025-01-22 05:52 | XMS_ITS | CCD ---
Author Name Interface, [id number] lity Address [address] [place] [address] [address] [address] Organization [facility] Address [address] [facility] [address] [place] [address] Care Team Providers Care Medical Reviewer Name Role Phone Sarah Coto Unavailable Unava [...] Lab Address 01/18 Misc other lab See shove up d Problems Diagnosis Status Date of Diagnosi s Cervical cancer Active Cervical mass Active Procedures Date Category Name Instructions Status 01/14/2025 Physician Order RTC MD Post-Hospita l consult (can be VSEE if prefer) Ordered 01/21/2025 Physician Order PET/CT scan, sku ll base/mid thigh [place] Ordered Social History Date Name Value Sex Female
--- OUTSIDE RECORDS SUMMARY | 2025-01-22 05:52 | XMS_ITS | Clinical Summary ---
Author Organization [facility] Address [address], [place] [address] Care Team Providers Care Produce Laborer Name Role Phone Jorge Luis Cortez DO Primary Care Provider [phone] Source Comments You are receiving this document as you are listed as the primary care provider,follow-up provider, or the patient has been referred to you for consultation.This is in compliance with the Medicare and[facility] Hospitalca[facility] EHR Incentive Program,which states Providers who transition their patient to another setting of careor provider of care or refers their patient to another provider of care shouldprovide summary care record for each transition of care or referral. [employer] Allergies No known active allergies Medications hydroCHLOROthia [...] Info) Description 02/10/2025 2:45 PM CDT Appointment [facility] [address] [place] [address] Tasia Michael MD [address] [place] [address] Health Maintenance Due Date Last Done [...] this topic Insurance MEDICARE MANAGED CARE BC [facility] [place] [employer] [place] [employer] Care Teams Produce Laborer Relationship Specialty Start Date End Date Jorge Luis Cortez DO [address] [place] [address] PCP - General Family Practice 12/22/19
--- OUTSIDE RECORDS SUMMARY | 2025-01-22 05:53 | XMS_ITS | CCD ---
Author Name Interface, [id number] [facility] Address [address] [place], [place] [id number] [facility] Address [address] [place] [address] Care Team Providers Care Sephora Product Consultant Name Role Phone Sarah Coto Unavailable Unava ilable Care Plan Reason for Visit Encounters Diagnostic Results Problems Procedures Social History
--- OUTSIDE RECORDS SUMMARY | 2025-01-22 05:53 | XMS_ITS | Clinical Summary ---
Author Organization [facility] Address [address] [place] [address] Care Team Providers Care Bus Driver School Name Role Phone Votel, Axel Thomas MD Primary Care Provider + [facility] Care, Adel Unavailable [phone] Allergies No known active allergies Medications cholecalciferol [...] daily with meals. 180 Tablet 3 Active Gigds-9-DCG-EPA-F christian Oil 1,000 mg (120 mg-180 mg) [...] Department Care Team Description 01/23/20 Nurse Triage [facility] [address] [place] [address] Axel Palomo MD Home Care (nephrostomy leaking ) 01/22/20 12:00 PM CDT Home Care Visit [facility] [address] [place] [address] Shannan Garcia, DUYEN SN - HOME VISIT 01/20/20 Telephone [facility] [address] [place] [address] Axel Palomo MD PET SCAN ORDER 01/19/20 1:40 PM CDT Office Visit [facility] [address] [place] [address] Axel Palomo MD Hospital F/U (01/05-01/14/25/Kidney failure ); Results (MRI 01/10/25 ) 01/19/20 Travel 01/18/20 Telephone [facility] [address], [place] [address] Arina Guerra RN 01/18/20 Patient Outreach [facility] [address] [place] [address] Merlene Ferrera RN Primary RN Care Management; Hospital F/U (LACe 72) 01/17/20 10:30 AM CDT Home Care Visit [facility] [address] [place] [address] Arina Guerra, DUYEN SN - OASIS START OF CARE 01/17/20 Plan of Care Documentation [facility] [address] [place] [address] 01/16/20 Nurse Triage [facility] [address] [place] [address] Axel Palomo MD Appointment Request 01/14/20 11:08 AM CDT Anesthesia Event [facility] [address] [place] [address] David Amaya MD Bloom, Jordan M, EMPLOYEE WELFARE MANAGER 01/14/20 9:45 AM CDT - 01/14/20 11:07 AM CDT Surgery [facility] [address] [place] [address] Sarah Coto MD EXAM UNDER ANESTHESIA, CERVICAL BIOPSIES 01/14/20 Travel 01/08/20 11:10 AM CDT Anesthesia Event [facility] [address] [place] [address] Maria C Aguiar MD 01/08/20 10:20 AM CDT - 01/08/20 11:20 AM CDT Surgery [facility] [address] [place] [address] William Giraldo MD ESOPHAGOGASTRODUODENOSCOPY WITH BIOPSY 01/07/20 Travel 01/06/20 11:23 PM CDT - 01/15/20 1:02 PM CDT Hospital Encounter [facility] [address] [place] [address] [facility], [facility] Hospitalists Formerly [facility], MD Cristi Montez Brian Lavin, MD Residents, Shahzad, Donna Lerma MD Bilateral hydronephrosis (Primary Dx); Malignant neoplasm of cervix, unspecified site (HC); Essential hypertension; Constipation, unspecified constipation type Discharge Disposition: Home Health 01/06/20 12:50 PM CDT E-Visit [facility] [address] [place] [address] Votel, Axel Thomas MD eVisit for Vaginal Discharge / Irritation 11/04/19 Travel 11/03/19 8:15 AM AUTOMATIC TRIMMING SEWER Orders Only [facility] [address] [place] [address] Lab, [place] Lab from Last 3 Months [...] on file Legal Sex Female 7:12 AM AUTOMATIC TRIMMING SEWER Gender Identity Not on file Sexual Orientation [...] 01/25/2025 4:00 AM CDT Home Care Visit [facility] [address] [place] [address] Shannan Garcia, DUYEN 01/28/2025 4:00 AM CDT Home Care Visit [facility] [address] [place] [address], [place] [address] Shannan Garcia, DUYEN 02/01/2025 4:00 AM CDT Home Care Visit [facility] [address] [place] [address], [place] [address] Shannan aGrcia, DUYEN 02/04/2025 4:00 AM CDT Home Care Visit [facility] [address] [place] [address], [place] [address] Shannan Garcia, DUYEN 02/08/2025 4:00 AM CDT Home Care Visit [facility] [address] [place] [address], [place] [address] Shannan Garcia, DUYEN 02/11/2025 4:00 AM CDT Home Care Visit [facility] [address] [place] [address], [place] [address] Shannan Garcia, DUYEN 02/16/2025 4:00 AM CDT Home Care Visit [place] [id number] [place] [address], [place] [address] Shannan Garcia, DUYEN 02/17/2025 1:40 PM CDT Office Visit [facility] [address] [place] [address] Axel Palomo MD [address] [place] [address] 02/18/2025 4:00 AM CDT Home Care Visit [place] [id number] [place] [address] Shannan Garcia, DUYEN 02/22/2025 4:00 AM CDT Home Care Visit [facility] [address] [place] [address] Shannan Garcia, DUYEN 02/25/2025 4:00 AM CDT Home Care Visit [facility] [address] [place] [address] Shannan Garcia, DUYEN 03/01/2025 4:00 AM CDT Home Care Visit [facility] [address] [place] [address] Shannan Garcia, DUYEN 03/04/2025 4:00 AM CDT Home Care Visit [facility] [address] [place] [address] Shannan Garcia, RN Health Maintenance Due Date [...] 06/10/2022, Additional history exists Fecal testing sDNA-FIT (Clayhole guard) for age 45-75 06/18/2025 06/18/2022 BMI [...] CDT H PYLORI ANTIGEN,STOOL Routine 10:21 AM AUTOMATIC TRIMMING SEWER Abdominal pain, generalized STOOL PATHOGEN MULTIPLEX PCR PANEL Routine 11/04/2024 10:17 AM AUTOMATIC TRIMMING SEWER Abdominal pain, generalized ANTI HCV Routine 06/11/2023 12:43 PM CDT Need for hepatitis C screening test SDNA-FIT EXTERNAL (COLOGUARD) Routine 5:30 AM CDT Screening for colon cancer from Last 3 Months or Most Recently Relevant to Health Maintenance Results * ANTINUCLEAR ANTIBODY BY IFA (01/18/2025 2:53 PM CDT) JASON SCREEN, IFA NEGATIVE NEGATIVE [employer] [facility] Comment: JASON IFA is a first line [...] AC-0: Negative International Consensus on JASON Patterns (https://doi.org/10.1515/ozrj-2537-8024) For additional information, please refer to http://education.Aditive/faq/IJA910 (This link is being provided for informational/ educational purposes only.) Blood BLOOD SPECIMEN / Unknown 01/18/2025 2:53 PM CDT 01/18/2025 2:55 PM CDT us Axel Palomo MD CHEMISTRY Final Re sult [facility] [address] [place] [address], [facility] [address] [place] [address] * (ABNORMAL) HEMOGLOBIN A1C (01/18/2025 2:53 PM CDT) HEMOGLOBIN A1C 5.7(H) <5.7 % [facility] Comment: For someone without known diabetes, [...] Axel Palomo MD CHEMISTRY Final Re sult [facility] [address] [place] [address], [facility] [address] [place] [address] * (ABNORMAL) LIPID PANEL W REFLEX MEASURED LDL (01/18/2025 2:53 PM CDT) CHOLESTEROL, TOTAL 275(H) <200 mg/dL [facility] [place] HDL CHOLESTEROL 53 > OR = 50 mg/dL [facility] [place] TRIGLYCERIDES 137 <150 mg/dL [facility] [place] LDL-CHOLESTEROL 193(H) mg/dL (calc) [facility] [facility] Comment: LDL-C levels > or = [...] about testing for familial hypercholesterolemia, please call [facility] Client Services at [phone]. Deuce Phillips, et al. J National Lipid Association Recommendations for Patient-Centered Management of Dyslipidemia: Part 1 Journal of Clinical Lipidology 2015;9(2), 129-169. Bill Giraldo et al. (2014). Homozygous familial hypercholesterolaemia: new insights and guidance for clinicians to improve detection and clinical management. Heart Journal, 35(32), 6114-5678. Reference range: <100 Desirable range <100 mg/dL for primary prevention; <70 mg/dL for patients with CHD or diabetic patients with > or = 2 CHD risk factors. LDL-C is now calculated using the Greyson-Johnson calculation, which is a validated novel method providing better accuracy than the Friedewald equation in the estimation of LDL-C. Greyson SS et al. CAPRICE. 2013;310(19): 5757-2591 (http://education.Aditive/faq/CJF330) CHOL/HDLC RATIO 5.2(H) <5.0 (calc) [employer] [place] NON HDL CHOLESTEROL 222(H) <130 mg/dL (calc) [employer] [place] Comment: Non-HDL level > or = [...] Axel Palomo MD CHEMISTRY Final Re sult [facility] [address] [place] [address], [email or web address] [address] [place] [address] * (ABNORMAL) RA QUANTITATIVE (01/18/2025 2:53 PM CDT) RHEUMATOID FACTOR 22(H) <14 IU/mL [facility] Blood BLOOD SPECIMEN / Unknown 01/18/2025 2:53 PM CDT 01/18/2025 2:55 PM CDT Axel Palomo MD SEND OUTS Final Re sult [facility] [address] [place] [address], [facility] [address] [place] [address] * (ABNORMAL) CBC W PLT NO DIFF (01/18/2025 2:53 PM CDT) Only the most recent of3 resultswithin the time period is included. Pathologist [facility] WHITE BLOOD CELL COUNT 6.7 3.8 - 10.8 Thousand/u L [facility] RED BLOOD CELL COUNT 3.63(L) 3.80 - 5.10 Million/uL [facility] HEMOGLOBIN 10.8(L) 11.7 - 15.5 g/dL [facility] HEMATOCRIT 33.2(L) 35.0 - 45.0 % [facility] MCV 91.5 80.0 - 100.0 fL [facility] MCH 29.8 27.0 - 33.0 pg [facility] MCHC 32.5 32.0 - 36.0 g/dL [facility] [...] Axel Palomo MD HEMATOLOGY Final Re sult [facility] [address] [place] [address], [facility] [address] [place] [address] * (ABNORMAL) COMP METABOLIC PANEL (01/18/2025 2:53 PM CDT) GLUCOSE 100(H) 65 - 99 mg/dL [facility] Comment: Fasting reference interval For [...] CHEMISTRY Final Re sult Performing Organization Address City/[facility]/ZIP Co de Phone Number [facility] [address] [place] [address], [facility] [address] [place] [address] * (ABNORMAL) Creatinine AM (01/14/2025 6:45 AM CDT) eGFR 46(L) >90 mL/min/1.7 3m2 01/14/2025 7:25 AM CDT [facility] Comment:As of 2021, eG FR is calculated by the CKD-EPI creatinine equation without race adjustment. eGFR can be influenced by muscle mass, exercise, and diet. The reported eGFR is an estimation only and is only applicable if the renal function is stable. CREATININE 1.23(H) 0.50 - 0.90 mg/dL 01/14/2025 7:25 AM CDT [facility] Blood BLOOD SPECIMEN / Unknown Venipuncture / Unknown 01/14/2025 6:45 AM CDT 01/14/2025 6:57 AM CDT us Isabella Thomas MD CHEMISTRY Final Resul t [facility]AL LABORATORY [address] [place] [address], [place] * PATH TISSUE EXAM (01/13/2025 11:31 AM CDT) Only the most recent of2 resultswithin the time period is included. Case Report Pathology Report Case: [id number] Authorizing Provider: Sarah Coto Collected: 01/13/2025 1131 MD El Ordering Location: [facility] Received: 01/13/2025 1153 [facility] Pathologist: Quiana Gutierrez MD Specimen: Cervical Biopsy 01/17/2025 4:59 PM CDT [facility] Final Diagnosis A) UTERINE CERVIX, BIOPSY: 1. 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 Histologic grade: Moderately differentiated b. Maximum tumor size/depth of invasion: Measurements deferred c. Background high-grade squamous intraepithelial lesion (CIN3) 2. See comment 01/17/2025 4:59 PM CDT [facility] at 1659 CDT Comment The [...] secure chat message. 01/17/2025 4:59 PM CDT [facility] Clinical Information Uterine/cervical mass with concern for bladder and rectal invasion. No Pap history at [facility]. Presented with acute renal failure and [...] on rectal mucosa. 01/17/2025 4:59 PM CDT [facility] Gross Description A) Received fresh labeled with the patient's name and cervical biopsy, is a 1.5 x 1.5 x 0.5 cm aggregate of blunt-pink polypoid rubbery tissue fragments admixed with clotted blood and mucus. The specimen is submitted entirely in 1 cassette. LMG 01/13/2025 01/17/2025 4:59 PM CDT [facility] Microscopic Description The final diagnosis is based on microscopic examination of appropriate sections of all specimens. Immunostains were performed using block A1 with results as follows: P16: Diffusely overexpressed P40: Diffusely positive A special stain was performed using block A1 with result as follows: Mucicarmine: Negative The ancillary stain results support the diagnosis. 01/17/2025 4:59 PM CDT [facility] Additional Information Interpreted at [facility] - [address] [place] [address] Immunohistochemist ry controls were reviewed and approved as appropriate by the pathologist during this examination. 01/17/2025 4:59 PM CDT [facility] Biopsy (Cervical Biopsy) 01/13/2025 11:31 AM CDT 01/13/2025 11:53 AM CDT us Sarah Coto MD PATHOLOGY/CYTOLOGY Final Result [facility] [address] [place] [address], [place] * TYPE & SCREEN (01/13/2025 8:22 AM CDT) ABORH O Rh Positive 01/13/2025 9:17 AM CDT [facility] ANTIBODY SCREEN Negative Negative 01/13/2025 9:17 AM CDT [facility] LAB BLOOD BANK SPECIMEN EXPIRATION DATE/TIME 01/16/25 23:59 01/13/2025 9:17 AM CDT [facility] BLOOD BANK Blood BLOOD SPECIMEN / Unknown Non-Lab Venipuncture / Unknown 01/13/2025 8:22 AM CDT 01/13/2025 8:33 AM CDT us Isabell DAI BLOOD BANK Final Res ult Performing Organization Address City/[facility]/ZIP Co de Phone Number [facility] BLOOD BANK [address] [place] [address], * (ABNORMAL) Hemoglobin AM (01/12/2025 6:40 AM CDT) Only the most recent of4 resultswithin the time period is included. HEMOGLOBIN 9.5(L) 12.0 - 16.0 g/dL 01/12/2025 7:15 AM CDT [facility] MCV 92 80 - 100 fL 01/12/2025 7:15 AM CDT [facility] Blood BLOOD SPECIMEN / Unknown Venipuncture / Unknown 01/12/2025 6:40 AM CDT 01/12/2025 7:05 AM CDT us Isabella Thomas MD HEMATOLOGY Final Resul t Performing Organization Address City/[facility]/ZIP Co de Phone Number [facility] [address] [place] [address], * (ABNORMAL) Basic metabolic panel AM (01/12/2025 6:40 AM CDT) Only the most recent of6 resultswithin the time period is included. SODIUM 138 136 - 145 mmol/L 01/12/2025 7:37 AM CDT [facility] POTASSIUM 3.8 3.5 - 5.1 mmol/L 01/12/2025 7:37 AM CDT [facility] CHLORIDE 104 98 - 107 mmol/L 01/12/2025 7:37 AM CDT [facility] CO2,TOTAL 21(L) 22 - 29 mmol/L 01/12/2025 7:37 AM CDT [facility] ANION GAP 13 5 - 18 01/12/2025 7:37 AM CDT [facility] GLUCOSE 103(H) 70 - 99 mg/dL 01/12/2025 7:37 AM CDT [facility] CALCIUM 9.2 8.8 - 10.4 mg/dL 01/12/2025 7:37 AM CDT [facility] Comment: Reference ranges for this test were updated on 07/27/2024 to reflect our healthy population more accurately. Reference range changes are not retroactively applied to results, but previous results using the same methodology can be interpreted in the context of the new reference range. BUN 25(H) 8 - 23 mg/dL 01/12/2025 7:37 AM CDT [facility] CREATININE 1.27(H) 0.50 - 0.90 mg/dL 01/12/2025 7:37 AM CDT [facility] BUN/CREAT RATIO 20 10 - 20 7:37 AM CDT [facility] eGFR 44(L) >90 mL/min/1. 73m2 01/12/2025 7:37 AM T [facility] Comment:As of 2021, eG FR [...] Isabella Thomas MD CHEMISTRY Final Resul t [facility] [address] [place] [address], [place] * MR PELVIS WWO (01/10/2025 3:08 [...] - 4.5 mg/dL 01/10/2025 7:33 AM CDT [facility] Blood BLOOD SPECIMEN / Unknown Venipuncture / Unknown 01/10/2025 7:01 AM CDT 01/10/2025 7:06 AM CDT us Isabella Thomas MD CHEMISTRY Final Resul t [facility] [address] [place] [address], [place] * Magnesium AM (01/10/2025 7:01 AM CDT) MAGNESIUM 1.7 1.6 - 2.4 mg/dL 01/10/2025 7:33 AM CDT [facility] Blood BLOOD SPECIMEN / Unknown Venipuncture / Unknown 01/10/2025 7:01 AM CDT 01/10/2025 7:06 AM CDT us Isabella Thomas MD CHEMISTRY Final Resul t Performing Organization Address City/[facility]/ZIP Co de Phone Number [facility] [address] [place] [address], * (ABNORMAL) GLUCOSE METER (01/08/2025 4:20 PM CDT) Only the most recent of2 resultswithin the time period is included. GLUCOSE METER 159(H) 65 - 100 mg/dL 01/08/2025 4:25 PM CDT [facility] Blood BLOOD SPECIMEN / Unknown 01/08/2025 4:20 PM CDT 01/08/2025 4:25 PM CDT us Aly Colin MD CHEMISTRY Final Resu lt Performing Organization Address City/[facility] Co de Phone Number [facility] [address] [place] [address], * (ABNORMAL) RENAL FUNCTION PANEL (01/08/2025 6:48 AM CDT) Only the most recent of2 resultswithin the time period is included. SODIUM 139 136 - 145 mmol/L 01/08/2025 7:24 AM CDT [facility] POTASSIUM 3.8 3.5 - 5.1 mmol/L 01/08/2025 7:24 AM CDT [facility] CHLORIDE 101 98 - 107 mmol/L 01/08/2025 7:24 AM CDT [facility] CO2,TOTAL 24 22 - 29 mmol/L 01/08/2025 7:24 AM CDT [facility] ANION GAP 14 5 - 18 01/08/2025 7:24 AM T [facility] GLUCOSE 107(H) 70 - 99 mg/dL 01/08/2025 7:24 AM T [facility] CALCIUM 9.1 8.8 - 10.4 mg/dL 01/08/2025 7:24 AM T [facility] Comment: Reference ranges for this test were updated on 07/27/2024 to reflect our healthy population more accurately. Reference range changes are not retroactively applied to results, but previous results using the same methodology can be interpreted in the context of the new reference range. BUN 49(H) 8 - 23 mg/dL 01/08/2025 7:24 AM T [facility] CREATININE 4.54(H) 0.50 - 0.90 mg/dL 01/08/2025 7:24 AM [facility] TRAL LAB[facility] BUN/CREAT RATIO 11 10 - 20 7:24 AM T [facility] eGFR 10(L) >90 mL/min/1. 73m2 01/08/2025 7:24 AM T [facility] Comment:As of 2021, eG FR is calculated by the CKD-EPI creatinine equation without race adjustment. eGFR can be influenced by muscle mass, exercise, and diet. The reported eGFR is an estimation only and is only applicable if the renal function is stable. PHOSPHORUS 4.8(H) 2.5 - 4.5 mg/dL 01/08/2025 7:24 AM T [facility] ALBUMIN 3.2(L) 4.0 - 4.9 g/dL 01/08/2025 7:24 AM T [facility] Blood BLOOD SPECIMEN / Unknown Butterfly / Unknown 01/08/2025 6:48 AM CDT 01/08/2025 6:56 AM CDT us Isabella Thomas MD CHEMISTRY Final Resul t [facility]-CENTRAL LABORATORY [address] [place] [address], [place] * IR NEPHROSTOMY TUBE BILATERAL (01/07/2025 [...] renal pelvis. The tract was dilated. 10 Luxembourger nephrostomy catheter was inserted over the wire [...] renal pelvis. The tract was dilated. 10 Luxembourger nephrostomy catheter was inserted over the wire [...] and dilated duplicated right collecting systems. 10 Luxembourger nephrostomy tubes (three) were placed uneventfully in the single left and duplicated right renal collecting systems. Completion antegrade nephrostogram demonstrates satisfactory position of all three catheters. Impression: Successful placement of a single left and upper and lower pole right 10 Luxembourger nephrostomy tubes using ultrasound and fluoroscopic guidance. Please contact me with any questions. Quiana Woods MD Vascular & Interventional Radiology [facility] [phone] us Isabella Thomas MD IR Final Resul t * Protime INR (01/07/2025 1:06 PM CDT) INR 1.0 <1.3 01/07/2025 1:44 PM CDT [facility] PROTIME 10.9 10.6 - 12.4 sec 01/07/2025 1:44 PM CDT [facility] Blood BLOOD SPECIMEN / Unknown Non-Lab Venipuncture / Unknown 01/07/2025 1:06 PM CDT 01/07/2025 1:22 PM CDT [facility]-CENTRAL LABORATORY - 01/07/2025 1:44 PM CDT Therapeutic [...] patient is on UFH. us Vanessa Mckeon GROCERY CASHIER HEMATOLOGY Final R esult [facility]-CENTRAL LABORATORY [address] [place] [address], [place] * COLONOSCOPY (01/07/2025 10:30 AM CDT) [...] an adequate candidate for sedation. The endoscope [id number] was passed through the anus andadvanced to [...] GI endoscopy Proceduralist: William Giraldo MD - [facility] Indications/Pre-Op Diagnosis: Weight loss, anemia, [...] None Seen /HPF 01/06/2025 3:25 PM CDT [facility] WBC >100(A) 0-2, 3-5, None Seen /HPF 01/06/2025 3:25 PM CDT [facility] BACTERIA Few None Seen, Rare, Few Bacteria/H PF 01/06/2025 3:25 PM CDT [facility] EPITHELIAL CELLS Few None Seen, Few Epi/HPF 01/06/2025 3:25 PM CDT [facility] HYALINE CASTS 3-5 0-2, 3-5 /LPF 01/06/2025 3:25 PM CDT [facility] Urine URINE SPECIMEN / Unknown Non-Blood / Unknown 01/06/2025 2:51 PM CDT 01/06/2025 3:00 PM CDT Petra Beavers MD URINE Final R esult Performing Organization Address [facility]/ZIP Co de Phone Number [facility] [address] [address], [place] * Urine culture - clean catch (01/06/2025 2:51 PM CDT) CULTURE No growth (<1,000 CFU/mL) 01/07/2025 2:07 PM CDT [facility] Urine URINE SPECIMEN / Unknown Non-Blood / Unknown 01/06/2025 2:51 PM CDT 01/06/2025 3:00 PM CDT Petra Beavers MD MICROBIOLOGY Final R esult Performing Organization Address City/[facility] Co de Phone Number [facility] [address] [place] [address], [place] * (ABNORMAL) Urinalysis STAT (01/06/2025 2:51 PM CDT) COLOR Yellow Yellow Color 01/06/2025 3:25 PM CDT [facility] CLARITY Cloudy(A) Clear Clarity 01/06/2025 3:25 PM CDT [facility] SPECIFIC GRAVITY,URINE <=1.005(A) 1.010, 1.015, 1.020, 1.025 01/06/2025 3:25 PM CDT [facility] PH,URINE 6.0 6.0, 7.0, 8.0, 5.5, 6.5, 7.5, 8.5 01/06/2025 3:25 PM CDT [facility] UROBILINOGEN, QUALITATIVE Normal Normal EU/dl 01/06/2025 3:25 PM CDT [facility] PROTEIN, URINE 100(A) Negative mg/dL 01/06/2025 3:25 PM CDT [facility] GLUCOSE, URINE Negative Negative mg/dL 01/06/2025 3:25 PM CDT [facility] KETONES,URINE Negative Negative mg/dL 01/06/2025 3:25 PM CDT [facility] BILIRUBIN,URI NE Negative Negative 01/06/2025 3:25 PM CDT [facility] OCCULT BLOOD,URINE Large(A) Negative 01/06/2025 3:25 PM CDT [facility] NITRITE Negative Negative 01/06/2025 3:25 PM CDT [facility] LEUKOCYTE ESTERASE Large(A) Negative 01/06/2025 3:25 PM CDT [facility] Urine URINE SPECIMEN / Unknown Non-Blood / Unknown 01/06/2025 2:51 PM CDT 01/06/2025 3:00 PM CDT us Petra Beavers MD URINE Final R esult [facility] [address] [place] [address], [place] * US PELVIS COMPLETE TA AND [...] - 34.8 ng/mL 01/06/2025 7:38 AM CDT [facility] Blood BLOOD SPECIMEN / Unknown Venipuncture / Unknown 01/06/2025 6:15 AM CDT 01/06/2025 6:35 AM CDT Narrative [facility] - 01/06/2025 7:38 AM CDT Biotin supplements may cause clinically significant interference for this test assay. If interference is suspected, it is strongly recommended that biotin is discontinued for at least one week prior to retesting. us Petra Beavers MD CHEMISTRY Final R esult [facility] [address] [place] [address], [place] * CT abdomen/pelvis without IV contrast [...] normal variant ( R in aVL , [place] product ) Abnormal ECG No previous ECGs available BEYOND NOW Ventricular Rate 75 BPM BEYOND NOW Atrial Rate 75 BPM BEYOND NOW P-R Interval 254 ms BEYOND NOW QRS Duration 86 ms BEYOND NOW QT 400 ms BEYOND NOW QTc 446 ms BEYOND NOW P [place] 49 degrees BEYOND NOW R [place] -40 degrees BEYOND NOW T [place] 42 degrees BEYOND NOW 01/06/2025 12:3 6 AM CDT 01/06/2025 5:49 PM CDT Petra Beavers MD EKG ORD Final R esult Performing Organization Address City/[facility]/ZIP Co de Phone Number BEYOND NOW [place], [place] * (ABNORMAL) IRON PLUS IRON BINDING CAP (01/06/2025 12:35 AM CDT) Pathologist [facility] IRON 44 37 - 145 ug/dL 01/06/2025 3:35 AM CDT [facility] UIBC (UNSATURATED) 195 112 - 347 ug/dL 01/06/2025 3:35 AM CDT [facility] IRON BINDING CAPACITY 239(L) 250 - 400 ug/dL 01/06/2025 3:35 AM CDT [facility] IRON,% SATURATION 18 14 - 50 % 01/06/2025 3:35 AM CDT [facility] Blood BLOOD SPECIMEN / Unknown Butterfly / Unknown 01/06/2025 12:35 AM CDT 01/06/2025 12:40 AM CDT us Petra Beavers MD CHEMISTRY Final R esult [facility] [address] [place] [address], * (ABNORMAL) Ferritin AM (01/06/2025 12:35 AM CDT) Pathologist [facility] FERRITIN 536.0(H) 15.0 - 150.0 ng/mL 01/06/2025 3:02 AM CDT [facility] Blood BLOOD SPECIMEN / Unknown Butterfly / Unknown 01/06/2025 12:35 AM CDT 01/06/2025 12:40 AM CDT Petra Beavers MD CHEMISTRY Final R esult Performing Organization Address [facility] Co de Phone Number [facility] [address] [address], [place] * (ABNORMAL) Vitamin B12 level AM (01/06/2025 12:35 AM CDT) Pathologist [facility] VITAMIN B12 >4,000(H) 232 - 1,245 pg/mL 01/06/2025 4:05 AM CDT [facility] Blood BLOOD SPECIMEN / Unknown [place]fly / Unknown 01/06/2025 12:35 AM CDT 01/06/2025 12:40 AM CDT Narrative [facility] - 01/06/2025 4:05 AM CDT Biotin supplements may cause clinically significant interference for this test assay. If interference is suspected, it is strongly recommended that biotin is discontinued for at least one week prior to retesting. Petra Beavers MD CHEMISTRY Final R esult Performing Organization Address [facility] Co de Phone Number [facility] [address] [address], [place] * SCAN-CARDIAC STRIP (01/05/2025 12:00 AM CDT) Narrative 01/05/2025 12:00 AM CDT Ordered by an unspecified provider. Other Clinical Staff OTHER Final Resul t * H PYLORI ANTIGEN,STOOL (11/04/2024 10:21 AM AUTOMATIC TRIMMING SEWER) HELICOBACTER PYLORI AG, EIA, STOOL SEE NOTE [facility] Comment: HELICOBACTER PYLORI AG, EIA, STOOL Micro Number: [id number] Test Status: Final Specimen Source: Stool/feces Specimen [...] STOOL SPECIMEN / Unknown 11/04/2024 10:21 AM AUTOMATIC TRIMMING SEWER 11/04/2024 10:21 AM [facility] Axel Palomo MD MICROBIOLOGY Final Re sult BYOM! [facility] [address] [place] [address], Server [facility] [address] [place] [address] * STOOL PATHOGEN MULTIPLEX PCR PANEL (11/04/2024 10:17 AM AUTOMATIC TRIMMING SEWER) Pathologist [facility] Campylobacter NOT Detected NOT Detected 11/05/2024 10:46 AM [facility] Salmonella NOT Detected NOT Detected 11/05/2024 10:46 AM [facility] Shigella NOT Detected NOT Detected 11/05/2024 10:46 AM [facility] Vibrio NOT Detected NOT Detected 11/05/2024 10:46 AM [facility] Yersinia Enterocolitica NOT Detected NOT Detected 11/05/2024 10:46 AM [facility] Shiga Toxin 1 NOT Detected NOT Detected 11/05/2024 10:46 AM [facility] Shiga Toxin 2 NOT Detected NOT Detected 11/05/2024 10:46 AM [facility] Norovirus NOT Detected NOT Detected 11/05/2024 10:46 AM [facility] Rotavirus NOT Detected NOT Detected 11/05/2024 10:46 AM [facility] Stool STOOL SPECIMEN / Unknown Non-Blood / Unknown 11/04/2024 10:17 AM AUTOMATIC TRIMMING SEWER 11/04/2024 10:17 AM AUTOMATIC TRIMMING SEWER Narrative [facility] - 11/05/2024 10:46 AM AUTOMATIC TRIMMING SEWER This test is a Culture Independent Diagnostic Test (CIDT) therefore isolates are not available for susceptibility testing. Antibiotic treatment is often contraindicated and may be detrimental in cases of enteric infections, thus routine susceptibility testing is not recommended. us Axel Palomo MD MICROBIOLOGY Final Re sult [facility] [address] [place] [address], [place] * ANTI HCV (06/11/2023 12:43 PM CDT) HEPATITIS C ANTIBODY Non-Reacti ve Non-React paresh 06/12/2023 9:16 AM CDT [facility] Comment:Please note, per www .CDC.gov: [...] Andrade DO SEND OUTS Final Resu lt [facility] SENDOUT INTERNAL [facility] [address] [place] [address] * SDNA-FIT EXTERNAL (COLOGUARD) (06/18/2022 5:30 AM CDT) NONINV COLON CA DNA+OCC BLD SCRN STL-IMP Negative Negative 06/22/2022 8:52 AM CDT [facility] (CLIA #:[id number]) Comment: NEGATIVE TEST RESULT. A negative Cologuard [...] (Timmy Judge al, N Engl J Med 2014;370(14):0995-1107) The normal value (reference range) for this assay is negative. COLOGUARD RE-SCREENING RECOMMENDATION: Periodic colorectal cancer screening is an important part of preventive healthcare for asymptomatic individuals at average risk for colorectal cancer. Following a negative Cologuard result, the [place] Cancer Society and U.S. Multi-Society Task Force screening guidelines recommend a Cologuard re-screening interval of 3 years. References: [place] [employer] Society Guideline for Colorectal Cancer Screening: https://www.cancer.org/cancer/houso-qfjocj-vrgxpf/noipgytbu-lleuovvmy-zsjsgsc/ac s-rec ommendations.html.; Fidel GEORGE, Joann العلي, Maribell McneilK, Colorectal Cancer Screening: Recommendations for Physicians and Patients from the U.S. Multi-Society Task Force on Colorectal Cancer Screening , Am J Gastroenterology 2017; 112:1549-4534. TEST DESCRIPTION: Composite algorithmic analysis of stool [...] Hobson et al, N Engl J Med 2014;370(14):6223-8242.) Cologuard may produce a false negative or false positive result (no colorectal cancer or precancerous polyp present at colonoscopy follow up). A negative Cologuard test result does not guarantee the absence of CRC or advanced adenoma (pre-cancer). The current Cologuard screening interval is every 3 years. ([place] Cancer Society and U.S. Multi-Society Task Force). Cologuard performance data in a 10,000 patient pivotal study using colonoscopy as the reference method can be accessed at the following location: www.Vizsafe/results. Additional description of the Cologuard test process, warnings and precautions can be found at www.IEVogKylin Networkrd.Codility. Stool specimen (specimen) (Rectum) 06/18/2022 5:30 AM CDT 06/19/2022 11:50 AM CDT us Marivel Andrade DO URINE Final Resu lt [facility] (CLIA #:[id number]) [place] [address], from Last 3 Months or Most Recently Relevant to Health Maintenance Insurance [employer] [address] MEDICARE PART A HB ONLY MEDICARE PART B HB ONLY [employer] [place] BLUE HB ONLY [employer] [place] [place] BLUE HB ONLY MEDICARE PPS Advance Directives Documents on File Type Date Recorded Patient Miner Helper Expl anation Healthcare Directive 04/17/2018 12:52 PM * Full Code (Latest Code Status on File) Date Activated Date Inactivated Comments 01/06/2025 12:27 AM 01/14/2025 3:02 PM Question Answer Comments Code Status Discussion: Reviewed Preferences Care Teams Bus [employer] Relationship Specialty Start Date End Date Votel, Axel Thomas MD [address] [place] [address] PCP - General Family Practice 01/04/25 [place] [id number] [address] 01/14/25
== END 2025-01-22 06:48 | disposition home or self-care (01) ==
PROVIDERS: Emergency Provider Family Medicine; PCP Family Medicine
DX: T83.092A Other mechanical complication of nephrostomy catheter, initial encounter (principal)
CPT/HCPCS: 99283; 99284

== ENCOUNTER 2025-01-27 15:16 | Outpatient (CLI) | payer MEDICARE, BC, SELFPAY ==
--- NOTE | 2025-01-27 17:00 | CRLHL7_ITS ---
For Patients: As a result of the 21st Century Cures Act, medical imaging exams and procedure reports are released immediately into your electronic medical record. You may view this report before your referring provider. If you have questions, please contact your health care provider. EXAM: FDG PET-CT Skull Base to Thighs CLINICAL INFORMATION: 74-year-old woman with history of cervical cancer. PET CT ordered for additional characterization. TECHNIQUE: Radiopharmaceutical: 18F-fluorodeoxyglucose (18F-FDG) Dose: 11.2 MilliCurie. Blood glucose: 94 mg/dL. Image acquisition: At approximately 60 minutes following IV tracer administration via a right antecubital vein, positron emission tomography was performed from the skull base through the mid thigh. Non-contrast low-dose helical CT imaging was performed over the same range without breath-hold for attenuation correction of PET images and anatomic correlation; it is neither sufficient, nor should it be substituted for diagnostic purposes. COMPARISON: MRI pelvis 01/10/2025 FINDINGS: Mediastinal blood pool FDG uptake: SUVMax 2.9 (image 85) Liver background parenchymal FDG uptake: SUVMax 3.6 (image 124) PET Findings: *Irregular cervical mass measuring up to approximately 4.9 x 4.6 cm (image 230) with heterogeneous moderate FDG uptake measuring up to SUVMax 6.0 (image 231). There is heterogeneous extension of FDG uptake from the cervical mass into the uterus to the level of the fundus, with intensity measuring up to SUV max 9.4 (image 227). The mass abuts the posterior bladder wall, with bladder wall invasion previously characterized on recent pelvic MRI 01/11/2025. *The cervical mass extends into the upper 3rd of the vaginal canal. No abnormal FDG avid lymphadenopathy. No abnormal FDG uptake in the visualized skeleton. Tracer uptake elsewhere is physiologic. Non-PET findings: Partial opacification of maxillary sinuses. Coronary artery calcifications. Atherosclerotic calcifications of the thoracic and abdominal aorta. Duplex right kidney. Bilateral percutaneous nephrostomy tubes, including separate catheters for right upper and lower pole moieties. Uterine fibroid. Multilevel degenerative changes in the spine. IMPRESSION: 1. Irregular cervical mass measuring up to 4.9 cm with heterogeneous moderate FDG uptake represents the known squamous cell carcinoma, with evidence of disease extension into the uterus to the level of the fundus, and with the mass extending into the upper 1/3 of the vaginal canal. The mass abuts the posterior bladder wall, with bladder wall invasion previously characterized on recent pelvic MRI 01/11/2025. 2. No evidence of FDG avid jody or distant metastatic disease. Dictated by David Herrera MD @ 01/28/2025 10:05:35 PM (Electronically Signed)
== END 2025-01-27 15:17 | disposition home or self-care (01) ==
LOC: RAD 15:17
PROVIDERS: PCP Family Medicine; Visit Provider Obstetrics & Gynecology Gynecologic Oncology
DX: C53.0 Malignant neoplasm of endocervix (principal); R19.00 Intra-abdominal and pelvic swelling, mass and lump, unspecified site
CPT/HCPCS: 78815; A9552

== ENCOUNTER 2025-02-15 08:31 | Day surgery (SDC) | payer MEDICARE, BC, SELFPAY ==
[2025-02-15 08:54] VITALS: BMI 25.7
[2025-02-15 09:30] VITALS: BP 151/83; PULSE 71; RESP 16; TEMP 36.6; O2SAT 98
[2025-02-15] MEDS: SODIUM CHLORIDE 0.9 % (FLUSH) 10 ML SYRINGE IVF (09:31)
[2025-02-15] MEDS: LACTATED RINGERS 500 ML 500 ML 100 ML IV (09:33)
--- NOTE | 2025-02-15 10:15 | CRLHL7_ITS ---
For Patients: As a result of the Century Cures Act, medical imaging exams and procedure reports are released immediately into your electronic medical record. You may view this report before your referring provider. If you have questions, please contact your health care provider. Indication: Port-A-Cath placement Technique: Two fluoroscopic images of the chest. Fluoroscopic time 16.4 seconds. IMPRESSION: Fluoroscopic guidance for Port-A-Cath placement. Dictated by Leonel Elizabeth MD @ 02/15/2025 11:28:00 AM (Electronically Signed)
[2025-02-15] MEDS: CEFAZOLIN 1 GM inj IVP (10:22)
[2025-02-15] MEDS: LIDOCAINE 1 % PF 30 ML INJECTION (10:38)
[2025-02-15] MEDS: BUPIVACAINE 0.5% 30 ML INJECTION (10:38)
[2025-02-15] MEDS: 0.9 % SODIUM CHLORIDE 50 ml INJECTION (10:45)
[2025-02-15] MEDS: HEPARIN 500 UNIT/5 ML SYRINGE IVF (10:54)
--- NOTE | 2025-02-15 11:07 | W.PM.H&PU ---
History & Physical Update History & Physical Update H&P Reviewed and patient assessed: No changes noted
--- NOTE | 2025-02-15 11:07 | PM.GSPRC ---
Operative Note Date of procedure: 02/15/25 Pre-op diagnosis: Cervical cancer Post-op diagnosis: Same Type of Procedure: Right internal jugular port a catheter placement Indications: Patient is a 74-year-old female with new diagnosis cervical cancer. She was seen by Oncology who recommended port a catheter placement and initiation of chemotherapy. Risks and benefits of operative intervention were discussed at length with the patient. Risks included but was not limited to: Bleeding, infection, risk of damage to surrounding structures, possible need for additional procedures and postoperative complications such as pneumonia, pulmonary emboli or TN. All questions and concerns were addressed with the patient agreeing to proceed. Procedure Description: After discussing the risks and benefits of the procedure, the patient signed informed consent.? The operative site was marked and the patient was brought to the operating room and placed on the operating table in supine position.? Care was taken to pad the patient's pressure points.?? The patient was then given sedation by anesthesia.?? The operative site was then prepped and draped in the usual sterile fashion.? A time-out was then performed. The patient's right internal jugular vein was visualized using ultrasound. Local anesthetic was injected into the neck skin above the vein. A skin natalya was made with an 11 blade. The vein was accessed percutaneously via Seldinger technique using ultrasound guidance. C-arm was used to confirm the wire leading into the right heart. Next local anesthetic was injected into the skin below the clavicle and along the proposed tract to the neck incision. A skin incision was then made with a 15 blade and a pocket created in the chest wall with cautery. A tunneler was then used to thread the catheter from the chest wall pocket to the neck incision. Once this was done fluoroscopy was brought into the field. Over the wire the tract was dilated using fluoroscopy. The wire and the dilator were then removed leaving the sheath intact in the vein. Through this the catheter was threaded. Using fluoroscopy the catheter was positioned into the distal SVC. The catheter was noted to flush and aspirate easily. The catheter was then connected to the port. The port was placed in the pocket and secured in place with 2 0 Prolene stay sutures on the medial and lateral side of the port. It was noted to flush and aspirate easily. This was then locked with heparinized saline. The skin was closed with absorbable suture. Sterile dressings were applied. Instrument sponge and needle counts were correct at the end of the case. The patient was woken and taken to the PACU in stable condition. Findings: Normal right internal jugular vein with placement of a port a catheter Anesthesia: MAC and local Surgeon: Ludmila Casillas MD Estimated blood loss (mL): 5 Condition: stable Disposition: same day
[2025-02-15 11:11] VITALS: BP 124/74; PULSE 72; RESP 16; TEMP 36.3; O2SAT 96
--- NOTE | 2025-02-15 11:14 | P.ANES_ITS ---
Anesthesia Charges Start Date/Time Anesthesia Start Date: 02/15/25 Anesthesia Start Time: 10:14 Stop Date/Time Anesthesia Stop Date: 02/15/25 Anesthesia Stop Time: 11:13 Summary Extremes of Age - Over 70 or under 1: MDA Coding CPT Codes CPT Codes: ANESTH VASCULAR ACCESS - 49384 ([id number]) P3 - PATIENT W/SEVERE SYS DISEASE, QK - ALUM PLANT OPERATOR 2-4 CNCRNT ANES PROC, QX - DIGITAL SALES ASSISTANT SVC W/ MD MED DIRECTION Additional Codes: Summary - Extremes of Age - Over 70 or under 1: MDA ([id number])
--- NOTE | 2025-02-15 11:14 | W.ANESCHARGE ---
Anesthesia Charges Start Date/Time Anesthesia Start Date: 02/15/25 Anesthesia Start Time: 10:14 Stop Date/Time Anesthesia Stop Date: 02/15/25 Anesthesia Stop Time: 11:13 Summary Extremes of Age - Over 70 or under 1: MDA Coding CPT Codes CPT Codes: ANESTH VASCULAR ACCESS - 83472 ([id number]) P3 - PATIENT W/SEVERE SYS DISEASE, QK - CHLORINE OPERATOR 2-4 CNCRNT ANES PROC, QX - ONSITE CASE MANAGER SVC W/ MD MED DIRECTION Additional Codes: Summary - Extremes of Age - Over 70 or under 1: MDA ([id number])
[2025-02-15 11:15] VITALS: BP 115/74; PULSE 72; RESP 16; O2SAT 98
[2025-02-15 11:30] VITALS: BP 145/87; PULSE 69; RESP 16; O2SAT 98
[2025-02-15 11:45] VITALS: BP 156/87; PULSE 70; RESP 16; O2SAT 98
== END 2025-02-15 12:04 | disposition home or self-care (01) ==
PROVIDERS: PCP Family Medicine; Visit Provider Surgery
PROC: (CPT 36561; principal; 2025-02-15 10:15)
DX: Z45.2 Encounter for adjustment and management of vascular access device (principal); C53.9 Malignant neoplasm of cervix uteri, unspecified
CPT/HCPCS: 36561; 00532; 71045; 76000; 76998; 99100; C1788; J0665; J0690; J1642; J2003; J2704; J3490; J7120

== ENCOUNTER 2025-03-14 15:41 | Emergency (ER) | payer MEDICARE, BC, SELFPAY ==
--- OUTSIDE RECORDS SUMMARY | 2025-03-14 09:41 | XMS_ITS | Encounter Summary ---
Author Organization [facility] Address [address] [place] [address] Care Team Providers Care Quality Assurance Coordinator Name Role Phone Unavailable Primary Care Provider Unavailabl e Encounter Details Date Type Department Care Team (Late st Contact Info) Description 03/14/2025 9:41 AM CDT Hospital Encounter Department of Radiation Oncology in [place], [place] [address] [place] [address] Thelma Streeter M.D. [address] [place] [address] Social History Tobacco Use Types Packs/Day Years Used Date Smoking Tobacco: Never Smokeless Tobacco: Never Alcohol Use Standard Drinks/Week Comments Not Currently 0 (1 standard drink = 0.6 oz pure alcohol) Quit drinkinking in August after pelvic pain started. [facility] Utilities Answer Date Recorded In the past 12 months has th e electric, gas, oil, or water [employer] threatened to shut off services in your home? No 03/08/2025 Hunger Vital Sign Answer Date Recorded Within the past 12 months, y ou worried that your food would run out before you got the money to buy more. Never true 03/08/20 25 Within the past 12 months, t he food you bought just didn't last and you didn't have money to get more. Never true 03/08/2025 PRAPARE - Transportation Answer Date Re corded In the past 12 months, has l ack of transportation kept you from medical appointments or from getting medications? No 02/20 In the past 12 months, has l ack of transportation kept you from meetings, work, or from getting things needed for daily living? No 03/08/2025 Housing Stability Answer Date Recorded What is your living situation today? I [facility] [employer] [facility] to live 03/08/2025 Comments Unknown Sex and Gender Information Value Date Recorded Sex Assigned at Female 03/05/2025 6:51 AM CDT Legal Sex Female 6:12 PM ACCESS CONSULTANT Gender Identity Female 03/05/2025 6:51 AM CDT Sexual Orientation Straight 03/05/2025 6: 51 AM CDT documented as of this encounter Plan of Treatment Upcoming Encounters Date Type Department Care Team (Late st Contact Info) Description 03/15/2025 9:45 AM CDT Appointment Department of Radiation Oncology in [address] [phone] Thelma Streeter M.D. [address] [place] [phone] 03/15/2025 10:00 AM CDT Appointment Department of Radiation Oncology in [address] [address] Chase Flores M.D. [address] [place] [phone] 03/16/2025 9:45 AM CDT Appointment Department of Radiation Oncology in [address] [phone] Thelma Streeter M.D. [address] [place] [phone] 03/17/2025 9:45 AM CDT Appointment Department of Radiation Oncology in [address] [address] Thelma Streeter M.D. [address] [place] [phone] 03/18/2025 9:45 AM CDT Appointment Department of Radiation Oncology in [address] [address] Thelma Streeter M.D. [address] [place] [phone] 03/21/2025 8:30 AM CDT Appointment Department of Radiation Oncology in [address] [address] Thelma Streeter M.D. [address] [place] [phone] 03/22/2025 9:30 AM CDT Appointment Department of Radiation Oncology in [address] [address] Thelma Streeter M.D. [address] [place] [phone] 03/22/2025 9:45 AM CDT Appointment Department of Radiation Oncology in [address] [address] Thelma Streeter M.D. [address] [place] [phone] 03/23/2025 9:45 AM CDT Appointment Department of Radiation Oncology in [address] [phone] Thelma Streeter M.D. [address] [place] [phone] 03/24/2025 10:00 AM CDT Appointment Department of Radiation Oncology in [address] [address] Thelma Streeter M.D. [address] [place] [phone] 03/28/2025 8:15 AM CDT Appointment Department of Radiation Oncology in [place], [place] [address] [place] [address] Thelma Streeter M.D. [address] [place] [phone] 03/28/2025 3:00 PM CDT Appointment Department of Radiation Oncology in [place], [place] [address] [place] [phone] Meme Cunningham M.D. [address] [place] [phone] 03/29/2025 10:00 AM CDT Appointment Department of Radiology in [place], [place] [address] [place] [address] Meme Cunningham M.D. [address] [place] [phone] 03/30/2025 7:45 AM CDT Appointment Department of Radiation Oncology in [place], [place] [address] [place] [phone] Meme Cunningham M.D. [address] [place] [phone] 04/04/2025 8:30 AM CDT Appointment Department of Radiation Oncology in [place], [place] [address] [place] [phone] Meme Cunningham M.D. [address] [place] [phone] 04/06/2025 7:45 AM CDT Appointment Department of Radiation Oncology in [place], [place] [address] [place] [phone] Meme Cunningham M.D. [address] [place] [phone] 04/11/2025 8:15 AM CDT Appointment Department of Radiation Oncology in [place], [place] [address] [place] [phone] Meme Cunningham M.D. [address] [place] [phone] 04/13/2025 7:45 AM CDT Appointment Department of Radiation Oncology in [place], [place] [address] [place] [address] Meme Cunningham M.D. [address] [place] [phone] documented as of this encounter Visit Diagnoses Not on filedocumented in this encounter
--- OUTSIDE RECORDS SUMMARY | 2025-03-14 15:44 | XMS_ITS | CCD ---
Author Name Interface, [id number] lity Address [address] [place] [address] [address] [place] [address] [facility] Address [address] [facility] [address] [place] [address] Care Team Providers Care Implementation Services Analyst Name Role Phone Chica PALMA, Sarah Gallegos Unavailable Un available Allergies and Adverse Reactions Medication/Group Name Reaction Severity Date No known allergies Care Plan Date Type Value 04/12/2025 APPOINTMENT PALLIATIVE CARE CONSULT 80 MIN 03/10/2025 APPOINTMENT PALLIATIVE CARE CONSULT 80 MIN 02/18/2025 APPOINTMENT OUTSIDE TEST 5 M IN 02/16/2025 APPOINTMENT TREATMENT 3 HR 02/16/2025 APPOINTMENT OV 30 MIN 02/16/2025 APPOINTMENT PORT DRAW 15 MIN 02/08/2025 APPOINTMENT TREATMENT TEACH 60 MIN 02/02/2025 APPOINTMENT TELEHEALTH SVC N EW PT 30 MIN 02/02/2025 APPOINTMENT TELEHEALTH SVC N EW PT 30 MIN 01/21/2025 LABORDER PET/CT scan, sku ll base/mid thigh 02/02/2025 LABORDER Magnesium Panel 02/02/2025 LABORDER CMP 02/02/2025 LABORDER CBC w/ auto diff 02/02/2025 LABORDER TSH panel 02/02/2025 LABORDER iSTAT creatinine panel Reason for Visit PALLIATIVE CARE CONSULT 80 MIN Encounters Date Name 04/12/2025 PALLIATIVE CARE CONS ULT 80 MIN 02/18/2025 OUTSIDE TEST 5 MIN Diagnostic Results Date Type Test Units Lower Limit Upper Limit Result Flag Comments Status Ordered By Specimen Source Lab Address 02/10 [facility] [place] other lab See attache gomes Medications Date Name Route Dose Frequency Instructions Start Date End Date Status 05/11 famotidine 10 MG/ML Injectable Solution intravenously 20.0 mg Re-initiate treatment only upon physician approval. 2024 active 05/11 4 ML pembrolizumab 25 MG/ML Injection intravenously 200.0 mg once Dilute with NS or D5W to a final concentration of 1-10 mg/mL. Infuse with low protein binding filter (0.2 - 5 micron). Do not mix with other drugs. Do not shake. 2024 active 05/11 1 ML epinephrine 1 MG/ML Injection intramuscularly 0.3 mg once Re-initiate treatment only upon physician approval. 2024 active 05/11 methylprednisolon e 2000 MG Injection intravenously 125.0 mg Re-initiate treatment only upon physician approval. 2024 active 05/11 diphenhydramine hydrochloride 0.5 MG/ML Injectable Solution intravenously 50.0 mg Re-initiate treatment only upon physician approval. 2024 active 05/11 hydrocortisone 100 MG Injection intravenously 100.0 mg Re-initiate treatment only upon physician approval. 2024 active 04/20 hydrocortisone 100 MG Injection intravenously 100.0 mg Re-initiate treatment only upon physician approval. 2024 active 04/20 1 ML epinephrine 1 MG/ML Injection intramuscularly 0.3 mg once Re-initiate treatment only upon physician approval. 2024 active 04/20 4 ML pembrolizumab 25 MG/ML Injection intravenously 200.0 mg once Dilute with NS or D5W to a final concentration of 1-10 mg/mL. Infuse with low protein binding filter (0.2 - 5 micron). Do not mix with other drugs. Do not shake. 2024 active 04/20 methylprednisolon e 2000 MG Injection intravenously 125.0 mg Re-initiate treatment only upon physician approval. 2024 active 04/20 diphenhydramine hydrochloride 0.5 MG/ML Injectable Solution intravenously 50.0 mg Re-initiate treatment only upon physician approval. 2024 active 04/20 famotidine 10 MG/ML Injectable Solution intravenously 20.0 mg Re-initiate treatment only upon physician approval. 2024 active 03/30 methylprednisolon e 2000 MG Injection intravenously 125.0 mg Re-initiate treatment only upon physician approval. 2024 active 03/30 famotidine 10 MG/ML Injectable Solution intravenously 20.0 mg Re-initiate treatment only upon physician approval. 2024 active 03/30 hydrocortisone 100 MG Injection intravenously 100.0 mg Re-initiate treatment only upon physician approval. 2024 active 03/30 4 ML pembrolizumab 25 MG/ML Injection intravenously 200.0 mg once Dilute with NS or D5W to a final concentration of 1-10 mg/mL. Infuse with low protein binding filter (0.2 - 5 micron). Do not mix with other drugs. Do not shake. 2024 active 03/30 1 ML epinephrine 1 MG/ML Injection intramuscularly 0.3 mg once Re-initiate treatment only upon physician approval. 2024 active 03/30 diphenhydramine hydrochloride 0.5 MG/ML Injectable Solution intravenously 50.0 mg Re-initiate treatment only upon physician approval. 2024 active 03/23 1 ML epinephrine 1 MG/ML Injection intramuscularly 0.3 mg once Re-initiate treatment only upon physician approval. 2024 active 03/23 methylprednisolon e 2000 MG Injection intravenously 125.0 mg Re-initiate treatment only upon physician approval. 2024 active 03/23 dexamethasone phosphate 4 MG/ML Injectable Solution intravenously 10.0 mg once 2024 active 03/23 diphenhydramine hydrochloride 0.5 MG/ML Injectable Solution intravenously 50.0 mg Re-initiate treatment only upon physician approval. 2024 active 03/23 18 ML aprepitant 7.2 MG/ML Injection intravenously 130.0 mg once Administer 30 minutes prior to chemotherapy. Do NOT dilute. Flush with NS before and after administration . 2024 active 03/23 Palonosetron IV intravenously 0.25 mg once 2024 active 03/23 Sodium Chloride IV 0.9 % intravenously 1000. 0 mL once Pre-hydration prior to Cisplatin administration . 2024 active 03/23 famotidine 10 MG/ML Injectable Solution intravenously 20.0 mg Re-initiate treatment only upon physician approval. 2024 active 03/23 cisplatin 1 MG/ML Injectable Solution intravenously 71.0 mg once Administer for 5-6 total doses. The 6th dose is optional and may be administered per local practice. Cisplatin is a vesicant.If diluted to a final concentration of less than 0.5 mg/mL, cisplatin is a vascular irritant. 2024 active 03/23 hydrocortisone 100 MG Injection intravenously 100.0 mg Re-initiate treatment only upon physician approval. 2024 active 03/16 Sodium Chloride IV 0.9 % intravenously 1000. 0 mL once Pre-hydration prior to Cisplatin administration . 2024 active 03/16 18 ML aprepitant 7.2 MG/ML Injection intravenously 130.0 mg once Administer 30 minutes prior to chemotherapy. Do NOT dilute. Flush with NS before and after administration . 2024 active 03/16 diphenhydramine hydrochloride 0.5 MG/ML Injectable Solution intravenously 50.0 mg Re-initiate treatment only upon physician approval. 2024 active 03/16 dexamethasone phosphate 4 MG/ML Injectable Solution intravenously 10.0 mg once 2024 active 03/16 famotidine 10 MG/ML Injectable Solution intravenously 20.0 mg Re-initiate treatment only upon physician approval. 2024 active 03/16 cisplatin 1 MG/ML Injectable Solution intravenously 71.0 mg once Administer for 5-6 total doses. The 6th dose is optional and may be administered per local practice. Cisplatin is a vesicant.If diluted to a final concentration of less than 0.5 mg/mL, cisplatin is a vascular irritant. 2024 active 03/16 Palonosetron IV intravenously 0.25 mg once 2024 active 03/16 methylprednisolon e 2000 MG Injection intravenously 125.0 mg Re-initiate treatment only upon physician approval. 2024 active 03/16 hydrocortisone 100 MG Injection intravenously 100.0 mg Re-initiate treatment only upon physician approval. 2024 active 03/16 1 ML epinephrine 1 MG/ML Injection intramuscularly 0.3 mg once Re-initiate treatment only upon physician approval. 2024 active 03/09 18 ML aprepitant 7.2 MG/ML Injection intravenously 130.0 mg once Administer 30 minutes prior to chemotherapy. Do NOT dilute. Flush with NS before and after administration . 2024 active 03/09 methylprednisolon e 2000 MG Injection intravenously 125.0 mg Re-initiate treatment only upon physician approval. 2024 active 03/09 Sodium Chloride IV 0.9 % intravenously 1000. 0 mL once Pre-hydration prior to Cisplatin administration . 2024 active 03/09 1 ML epinephrine 1 MG/ML Injection intramuscularly 0.3 mg once Re-initiate treatment only upon physician approval. 2024 active 03/09 Palonosetron IV intravenously 0.25 mg once 2024 active 03/09 4 ML pembrolizumab 25 MG/ML Injection intravenously 200.0 mg once Dilute with NS or D5W to a final concentration of 1-10 mg/mL. Infuse with low protein binding filter (0.2 - 5 micron). Do not mix with other drugs. Do not shake. 2024 active 03/09 diphenhydramine hydrochloride 0.5 MG/ML Injectable Solution intravenously 50.0 mg Re-initiate treatment only upon physician approval. 2024 active 03/09 cisplatin 1 MG/ML Injectable Solution intravenously 71.0 mg once Administer for 5-6 total doses. The 6th dose is optional and may be administered per local practice. Cisplatin is a vesicant.If diluted to a final concentration of less than 0.5 mg/mL, cisplatin is a vascular irritant. 2024 active 03/09 dexamethasone phosphate 4 MG/ML Injectable Solution intravenously 10.0 mg once 2024 active 03/09 famotidine 10 MG/ML Injectable Solution intravenously 20.0 mg Re-initiate treatment only upon physician approval. 2024 active 03/09 hydrocortisone 100 MG Injection intravenously 100.0 mg Re-initiate treatment only upon physician approval. 2024 active 03/02 Palonosetron IV intravenously 0.25 mg once 2024 active 03/02 1 ML epinephrine 1 MG/ML Injection intramuscularly 0.3 mg once Re-initiate treatment only upon physician approval. 2024 active 03/02 dexamethasone phosphate 4 MG/ML Injectable Solution intravenously 10.0 mg once 2024 active 03/02 diphenhydramine hydrochloride 0.5 MG/ML Injectable Solution intravenously 50.0 mg Re-initiate treatment only upon physician approval. 2024 active 03/02 hydrocortisone 100 MG Injection intravenously 100.0 mg Re-initiate treatment only upon physician approval. 2024 active 03/02 cisplatin 1 MG/ML Injectable Solution intravenously 71.0 mg once Administer for 5-6 total doses. The 6th dose is optional and may be administered per local practice. Cisplatin is a vesicant.If diluted to a final concentration of less than 0.5 mg/mL, cisplatin is a vascular irritant. 2024 active 03/02 methylprednisolon e 2000 MG Injection intravenously 125.0 mg Re-initiate treatment only upon physician approval. 2024 active 03/02 18 ML aprepitant 7.2 MG/ML Injection intravenously 130.0 mg once Administer 30 minutes prior to chemotherapy. Do NOT dilute. Flush with NS before and after administration . 2024 active 03/02 famotidine 10 MG/ML Injectable Solution intravenously 20.0 mg Re-initiate treatment only upon physician approval. 2024 active 03/02 Sodium Chloride IV 0.9 % intravenously 1000. 0 mL once Pre-hydration prior to Cisplatin administration . 2024 active 02/23 hydrocortisone 100 MG Injection intravenously 100.0 mg Re-initiate treatment only upon physician approval. 2024 active 02/23 methylprednisolon e 2000 MG Injection intravenously 125.0 mg Re-initiate treatment only upon physician approval. 2024 active 02/23 dexamethasone phosphate 4 MG/ML Injectable Solution intravenously 10.0 mg once 2024 active 02/23 18 ML aprepitant 7.2 MG/ML Injection intravenously 130.0 mg once Administer 30 minutes prior to chemotherapy. Do NOT dilute. Flush with NS before and after administration . 2024 active 02/23 cisplatin 1 MG/ML Injectable Solution intravenously 71.0 mg once Administer for 5-6 total doses. The 6th dose is optional and may be administered per local practice. Cisplatin is a vesicant.If diluted to a final concentration of less than 0.5 mg/mL, cisplatin is a vascular irritant. 2024 active 02/23 Sodium Chloride IV 0.9 % intravenously 1000. 0 mL once Pre-hydration prior to Cisplatin administration . 2024 active 02/23 Palonosetron IV intravenously 0.25 mg once 2024 active 02/23 famotidine 10 MG/ML Injectable Solution intravenously 20.0 mg Re-initiate treatment only upon physician approval. 2024 active 02/23 diphenhydramine hydrochloride 0.5 MG/ML Injectable Solution intravenously 50.0 mg Re-initiate treatment only upon physician approval. 2024 active 02/23 1 ML epinephrine 1 MG/ML Injection intramuscularly 0.3 mg once Re-initiate treatment only upon physician approval. 2024 active 02/16 methylprednisolon e 2000 MG Injection intravenously 125.0 mg Re-initiate treatment only upon physician approval. 2024 active 02/16 4 ML pembrolizumab 25 MG/ML Injection intravenously 200.0 mg once Dilute with NS or D5W to a final concentration of 1-10 mg/mL. Infuse with low protein binding filter (0.2 - 5 micron). Do not mix with other drugs. Do not shake. 2024 active 02/16 hydrocortisone 100 MG Injection intravenously 100.0 mg Re-initiate treatment only upon physician approval. 2024 active 02/16 Sodium Chloride IV 0.9 % intravenously 1000. 0 mL once Pre-hydration prior to Cisplatin administration . 2024 active 02/16 Palonosetron IV intravenously 0.25 mg once 2024 active 02/16 18 ML aprepitant 7.2 MG/ML Injection intravenously 130.0 mg once Administer 30 minutes prior to chemotherapy. Do NOT dilute. Flush with NS before and after administration . 2024 active 02/16 diphenhydramine hydrochloride 0.5 MG/ML Injectable Solution intravenously 50.0 mg Re-initiate treatment only upon physician approval. 2024 active 02/16 cisplatin 1 MG/ML Injectable Solution intravenously 71.0 mg once Administer for 5-6 total doses. The 6th dose is optional and may be administered per local practice. Cisplatin is a vesicant.If diluted to a final concentration of less than 0.5 mg/mL, cisplatin is a vascular irritant. 2024 active 02/16 1 ML epinephrine 1 MG/ML Injection intramuscularly 0.3 mg once Re-initiate treatment only upon physician approval. 2024 active 02/16 famotidine 10 MG/ML Injectable Solution intravenously 20.0 mg Re-initiate treatment only upon physician approval. 2024 active 02/16 dexamethasone phosphate 4 MG/ML Injectable Solution intravenously 10.0 mg once 2024 active 02/02 olanzapine 2.5 MG Oral Tablet orally 2.5 mg every day at bedtime 2024 active 02/02 prochlorperazine 10 MG Oral Tablet orally 10.0 mg every 6 hours 2024 active Problems Diagnosis Status Date of Diagnosis Resolution Date Cervical cancer Active Cervical mass Active Procedures Date Category Name Instructions Status 01/14/2025 Physician Order RTC MD [facility] consult (can be [facility] if prefer) Ordered 01/21/2025 Physician Order PET/CT scan, sku ll base/mid thigh [place] Ordered 02/02/2025 Physician Order RTC patient teaching RN Patient Teaching Visit Ordered 02/02/2025 Physician Order Radiation therap y consult [facility] Ordered 02/02/2025 Physician Order Immunotherapy Monitoring For immune checkpoint inhibitors, the following tests are recommended by NCCN Guidelines at baseline and every 4-6 weeks (at minimum) during treatment:- CBC with differential, CMP, TSH, free T4- May also consider cortisol (AM preferred); oxygen saturation, chest x-ray, ECG and/or PFTs at baseline and as clinically indicated Ordered 02/02/2025 Physician Order REGIMEN CLEARANC E & COMMENTS Please review istat Cr prior to treatment and assess if a renal dose reduction is warranted. Pt recently hospitalized with [place], but renal function has been improving.Cisplatin renal dose recommendations:Therapy with curative intent (Ref):CrCl =60 mL/minute: IV: No dosage adjustment necessary.CrCl 50 to <60 mL/minute: IV: Administer 75% of the usual indication-specific recommended dose.CrCl 40 to <50 mL/minute: IV: Administer 50% of the usual indication-specific recommended dose. Ordered 02/08/2025 Physician Order Consultation requested Ar dical Oncology for chemo/radiation at [facility]. Weekly Cisplatin and Q21 day [place] with Radiation at [facility] Ordered 02/15/2025 Physician Order Port placement Order ed 02/16/2025 Physician Order REGIMEN CLEARANC E & COMMENTS Please review istat Cr prior to treatment and assess if a renal dose reduction is needed. Pt recently hospitalized with [place], but renal function has been improving.Cisplatin renal dose recommendations:Therapy with curative intent (Ref):CrCl =60 mL/minute: IV: No dosage adjustment necessary.CrCl 50 to <60 mL/minute: IV: Administer 75% of the usual indication-specific recommended dose.CrCl 40 to <50 mL/minute: IV: Administer 50% of the usual indication-specific recommended dose. Ordered 02/16/2025 Physician Order Immunotherapy Monitoring For immune checkpoint inhibitors, the following tests are recommended by NCCN Guidelines at baseline and every 4-6 weeks (at minimum) during treatment:- CBC with differential, CMP, TSH, free T4- May also consider cortisol (AM preferred); oxygen saturation, chest x-ray, ECG and/or PFTs at baseline and as clinically indicated Ordered 02/16/2025 Physician Order RTC METAL CASTER/PA and infusion to start with RT - Cisplatin Keytruda Ordered 03/09/2025 Physician Order Immunotherapy Monitoring For immune checkpoint inhibitors, the following tests are recommended by NCCN Guidelines at baseline and every 4-6 weeks (at minimum) during treatment:- CBC with differential, CMP, TSH, free T4- May also consider cortisol (AM preferred); oxygen saturation, chest x-ray, ECG and/or PFTs at baseline and as clinically indicated Ordered 03/10/2025 Physician Order Palliative care consult Pain ma nagement Ordered 03/30/2025 Physician Order Immunotherapy Monitoring For immune checkpoint inhibitors, the following tests are recommended by NCCN Guidelines at baseline and every 4-6 weeks (at minimum) during treatment:- CBC with differential, CMP, TSH, free T4- May also consider cortisol (AM preferred); oxygen saturation, chest x-ray, ECG and/or PFTs at baseline and as clinically indicated Ordered 04/20/2025 Physician Order Immunotherapy Monitoring For immune checkpoint inhibitors, the following tests are recommended by NCCN Guidelines at baseline and every 4-6 weeks (at minimum) during treatment:- CBC with differential, CMP, TSH, free T4- May also consider cortisol (AM preferred); oxygen saturation, chest x-ray, ECG and/or PFTs at baseline and as clinically indicated Ordered 05/11/2025 Physician Order Immunotherapy Monitoring For immune checkpoint inhibitors, the following tests are recommended by NCCN Guidelines at baseline and every 4-6 weeks (at minimum) during treatment:- CBC with differential, CMP, TSH, free T4- May also consider cortisol (AM preferred); oxygen saturation, chest x-ray, ECG and/or PFTs at baseline and as clinically indicated Ordered Social History Date Name Value Sex Female Visits Date Type Value 04/12/2025 PALLIATIVE CARE CONSULT 80 MIN Vital Signs Date Type Value 01/18/2025 Weight 154.00 01/18/2025 BSA 1.77 01/18/2025 BMI 25.71 01/18/2025 Height 64.90 Notes Section * 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 Primary GYNOncologist: Sarah Coto (Gynecological/Oncology) Date of Service: 02/02/2025 Reason for Consult: Cervical cancer? 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 01/05/25 Admitted to [facility]?with acute renal failure. CT showed worsening bilateral hydronephrosis and possible lower uterine vs. cervical mass.. She underwent bilateral nephrostomy tube placement on 01/07/25, Cr improved following placement. 01/10/25 Uterus size: 6.6 x 6.1 x 8.2 centimeters. Normal endometrial thickness measuring 0.3 centimeters. Multiple uterine fibroids with resulting distortion of the endometrium, the largest is along the posterior uterine body measuring 5.1 x 5.3 x 4.7 cm. There is a exophytic calcified fibroid along the left posterior uterine wall. Cervix: Enhancing large spiculated cervical mass measures 4.7 x 4.2 x 4.1 cm. There is no associated diffusion restriction. There is a defect along the cervical wallat 5 o'clock, which may related to prior sampling or a small nabothian cyst.?Parametrial invasion: Extension of the mass through the parametrium, with loss of the parametrial stripe. Vaginal invasion: Involvement of the superior most aspect of the vagina (within the upper third) Pelvic sidewall:No definite extension to the pelvic sidewall. Invasion of other organs: Invasion of the cervical mass into the posterior bladder wall in the region of the trigone. The mass also extends posteriorly th rough the mesorectal fascia anteriorly from 11:00 to 2:00, with spiculations extending to the rectum at 12 o'clock. The spiculation is markedly T2 hypointense, and scarring from prior endometriosis implants can also have this appearance. 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 Background high-grade squamous intraepithelial lesion (CIN3) On exam under anesthesia, firm tumor palpated at top of vagina - cervix not able to be visualized cervix was completely retracted, there was approximately 5 cm of anterior vaginal epithelium free of gross tumor, bilateral pelvic sidewall involvement on rectovaginal exam; uterus/cervix enlarged and fixed on bimanual exam. On cystoscopy, trigone with tumor involvement - no visible vesicovaginal fistula or leakage of cystoscopy fluid through vagina (pictures taken). On rectal exam, the tumorwas palpable through the rectum but no tumor was palpable along rectal mucosa, no rectovaginal fistula, the rectum felt fixed to the tumor at approximately 10 cm 01/27/[address]- Irregular cervical mass measuring up to 4.9 cm with heterogeneous moderate FDG uptake represents the known squamous cell carcinoma, with evidence of disease extension into the uterus to the level of the fundus, and with the mass extending into the upper 1/3 of the vaginal canal. The mass abuts the posterior bladder wall, with bladder wall invasion previously characterized on recentpelvic MRI 01/11/2025. No evidence of FDG avid jody or distant metastatic disease HPI: Has been experiencing pelvic cramping - slightly worsened since hospitalization. Managing withOTC meds. Is having difficulty with sleeping, thinks related to anxiety. Has urge to have bowel movement, but doesn't have to go - thinks related to tumor on rectum. Small amount of vaginal bleeding.Able to empty nephrostomy tubes, working well.? 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 Past Medical History: Hypertension Surgical History: Skin cancer excision? 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 Family History: No FH gynecologic cancer. Niece with breast CA, 55 yo Social History: . Never smoker. 2 drinks of alcohol per week.? Health Maintenance: Noncontributory? Vital Signs: Blood pressure: , Pulse: , Temperature: , Respirations: , O2 sat: , Pain Scale: , Height: , Weight:, BSA: , BMI: Physical Exam (Vacuum Drum Drier Operator Oncology): *Virtual visit*? Laboratory Data: None ? Imaging: As documented above? Problems: * Cervical mass * Cervical cancer Assessment & Plan (Vacuum Drum Drier Operator Oncology): Alyssa Pulido is a 74 year. 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 CT showed worsening bilateral hydronephrosis and possible loweruterine vs. cervical mass. She underwent bilateral nephrostomy tube placement on 01/07/25, Cr improved following placement. We discussed that the curative treatment of locally advanced cervical cancer is chemoradiation withimmunotherapy. We reviewed that this entails approximately 5 weeks of external beam pelvic radiation and weekly Cisplatin chemotherapy + Keytruda for radiosensitization; this treatment would be followed by brachytherapy. I emphasized the importance of not missing treatments as this could adversely affect her risk of recurrence. We also reviewed the importance of completing brachytherapy treatmentafter external beam radiation therapy. I counseled the patient on her prognosis and that Stage BRICE disease 5 year survival rates are approximately 20%.? We briefly reviewed radiation side effects. Acute effects of radiation can include but are not limited to: skin irritation, desquamation, fatigue, bone marrow suppression, loose stools, diarrhea, andmore frequent bowel movements, urinary frequency or dysuria. Late complications include, but are not limited to: disease recurrence, vaginal narrowing and shortening, vaginal dryness, fistula formation, bowel obstruction, unlikely risk of damage to the surrounding bowel, rectum, bowel obstruction. Counseled extensively and fistula risk - briefly reviewed treatment for fistula. She verbalized understanding and all questions were answered. 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 * Port placement ordered * RN chemotherapy teaching visit * Palliative Care referral for assistance with pain/symptom management while on treatment? * Counseled on need for nephrostomy tubes throughout treatment course - depending on treatment response, could discuss removal vs. stent placement in the future? This visit was provided via telemedicine with the use of real-time audio and video. The patient hasverbally consented to do this visit via telemedicine. The patient participated in this visit. The patient is located in their home, and I, Sarah Coto, am located in the [facility]. The visit length was: 22 minutes. Total time spent on the day of service is 45 minutes including time spent reviewing records, telemedicine visit with the patient, preparing orders, and documentation. Pain Care Management: Pain Scale: Not recorded on visit Patient Care needs: Depressions Status: Not recorded on visit Smoking Status: Smoking Tobacco : none found; Smokeless Tobacco : none found; Vaping : none found Sarah Coto MD Copy to: ? Electronically signed by Sarah Coto MD 02/02/2025 09:27 CDT
--- OUTSIDE RECORDS SUMMARY | 2025-03-14 15:44 | XMS_ITS | CCD ---
Author Name Interface, [id number] lity Address [address] [place] [address] [address] [place] [address] [facility] Address [address] [facility] [address] [place] [address] Care Team Providers Care Vp Of Technology Name Role Phone hCica PALMA, Sarah Gallegos Unavailable Un available Allergies [...] Ordered By Specimen Source Lab Address 02/10 [facility] [place] See attache gomes Medications Date [...] Order PET/CT scan, sku ll base/mid thigh [facility] Ordered 02/02/2025 Physician Order RTC patient teaching RN Patient Teaching Visit Ordered 02/02/2025 Physician Order Radiation therap y consult [facility] Ordered 02/02/2025 Physician Order Immunotherapy Monitoring For [...] dose. Ordered 02/08/2025 Physician Order Consultation requested Ms dical Oncology for chemo/radiation at [facility]. 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 Primary GYNOncologist: Sarah Coto (Gynecological/Oncology) Date of Service: 02/02/2025 Reason for Consult: Cervical cancer? 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 01/05/25 Admitted to [facility]?with acute renal failure. CT showed worsening bilateral [...] empty nephrostomy tubes, working well.? Genetic Testing (Apparel Sales Leader Oncology): None Review of Systems: A complete 14-point review of systems is negative except as noted in the above history of present illness. Past Medical History: Hypertension Surgical History: Skin cancer excision? 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 Laboratory Data: None ? Imaging: As documented above? Problems: * Cervical mass * Cervical cancer Assessment & Plan (Apparel Sales Leader Oncology): Alyssa Pulido is a 74 year. [...] I, Sarah Coto, am located in the [facility]. The visit length was: 22 [...]
[2025-03-14 16:00] VITALS: BP 168/93; PULSE 86; RESP 16; TEMP 37.1; O2SAT 98
[2025-03-14 16:05] VITALS: BMI 25.0
--- NOTE | 2025-03-14 16:10 | ED.GENADULT ---
HPI - General Adult General Time Seen by Provider: 16:10 Date Seen: 03/14/25 Chief complaint: Urogenital Problems, Female Stated complaint: Kidney infection not responding to meds Time Seen by Provider: 03/14/25 16:05 Source: patient, RN notes reviewed and old records reviewed Mode of arrival: ambulatory Limitations: no limitations History of Present Illness HPI narrative: 74-year-old female who presents today with concern for a kidney infection. Patient reports she had noticed cloudy urine in her nephrostomy tube last week, went to the clinic. At that time she had no nausea, vomiting, fever, chills, or flank pain and the tubes were draining appropriately. Urinalysis was done and patient was felt to have a infection with positive nitrites, greater than 100 white blood cells, many bacteria. She was placed on ciprofloxacin, however culture subsequently shows Pseudomonas resistant to quinolones. Patient returns today after being called by the clinic. She still reports that she feels fine with no systemic signs of infection. Related Data Home Medications ?Medication ?Instructions ?Recorded ?Confirmed carvedilol 12.5 mg tablet 25 mg PO BID 01/22/25 03/14/25 coenzyme Q10 100 mg capsule (Co 100 mg PO DAILY 02/10/25 03/14/25 Q-10) omega-3 fatty acids-fish oil 360 1 cap PO DAILY 02/10/25 03/14/25 mg-1,200 mg capsule ascorbate calcium (vitamin C) 500 500 mg PO QDAY 02/17/25 03/14/25 mg tablet prochlorperazine maleate 10 mg 10 mg PO Q6H PRN nausea 02/21/25 03/14/25 tablet loperamide 2 mg capsule (Imodium 2 mg PO QID PRN 03/07/25 03/14/25 A-D) polyethylene glycol 3350 17 17 g PO DAILY PRN 03/07/25 03/14/25 gram/dose oral powder (Miralax) ciprofloxacin HCl 500 mg tablet 500 mg PO BID 03/14/25 03/14/25 olanzapine 2.5 mg tablet 2.5 mg PO QPM PRN 03/14/25 03/14/25 trazodone 50 mg tablet 50 mg PO QHS 03/14/25 03/14/25 Allergies Allergy/AdvReac Type Severity Reaction Status Date / Time Iodinated Contrast Media AdvReac Severe Verified 03/14/25 10:40 PFSH PFSH Medical History (Updated 03/14/25 @ 17:58 by Aly Melchor MD) [place] (acute kidney injury) ?N17.9 - Acute kidney failure, unspecified (ICD-10) Ureteral obstruction ?N13.5 - Crossing vessel and stricture of ureter without hydronephrosis (ICD-10) Squamous cell carcinoma of cervix ?C53.9 - Malignant neoplasm of cervix uteri, unspecified (ICD-10) Hyponatremia ?E87.1 - Hypo-osmolality and hyponatremia (ICD-10) Pure hypercholesterolemia ?E78.00 - Pure hypercholesterolemia, unspecified (ICD-10) Essential hypertension ?I10 - Essential (primary) hypertension (ICD-10) Surgical History (Updated 03/14/25 @ 17:58 by Aly Melchor MD) H/O insertion of nephrostomy tube ?Z98.890 - Other specified postprocedural states (ICD-10) Social History Smoking Status: Never smoker How often do you have a drink containing alcohol: never AUDIT-C Alcohol total score: 0 Non-prescribed substance use: denies use Caffeine: Yes (1c/day) Are you using contraception or practicing any form of control: No service: No Exam Narrative: Exam Narrative: General: well nourished , NAD Head: Atraumatic and normocephalic ENT: External ears and external nose are normal Eyes: Conjunctiva clear, pupils are equal reactive, external ocular motions are intact Neck: Full spontaneous range of motion of the neck Lungs: No respiratory distress Musculoskeletal: No tenderness or deformity Neurologic: No gross focal neurologic deficits Skin: No rashes Psych: Mood and affect are appropriate : Nephrostomy tubes in place, small amount of slightly cloudy urine in the bag Const: Vital Signs, click to edit/add: Vital Signs - 24 hr 03/14/25 16:00 Temperature 98.8 F Pulse Rate [Pulse Oximeter] 86 Respiratory Rate 16 Blood Pressure [Ri ght Upper Arm] 168/93 H Pulse Oximetry 98 Oxygen Delivery Me thod Room Air Course Course ED Course: Reviewed most recent oncology visit which was follow-up for squamous cell carcinoma of the cervix, patient is currently receiving radiation treatment with weekly carboplatin. Recently started on ciprofloxacin for urinary tract infection. Review of urine culture from March 10 shows Pseudomonas resistant to quinolones, sensitive to cefepime, ceftazidime, meropenem, and Zosyn. Patient presents today with concern about kidney infection in setting of nephrostomy tubes. She has no systemic signs infection, did have a positive urine culture last week. On exam here, patient is afebrile, not tachycardic, no hypotension. Labs done earlier today with white blood cell count 3.68, stable hemoglobin, creatinine 1.2. Will discuss with Reevaluation(s) Time of Reevaluation #1: 17:29 Reevaluation #1: Care discussed with Dr. Lugo, urology. Recommends as long as patient is asymptomatic normal white blood cell count, no treatment indicated. Should patient develop fever, elevated white blood cell count, other evidence for infection, initiate antibiotics at that point patient would need to be in patient. I did review UpToDate has well which agrees with recommendation for no antibiotics. Time of Reevaluation #2: 17:56 Reevaluation #2: Urinalysis independently interpreted by me with negative nitrites in both samples. Patient is stable for discharge. Vital Signs Vital signs: Initial Vital Signs Temperature 98.8 F 03/14/25 16:00 Temperature Source Temporal Artery Scan 03/14/25 16:00 Pulse Rate 86 03/14/25 16:00 Respiratory Rate 16 03/14/25 16:00 Blood Pressure 168/93 H 03/14/25 16:00 Blood Pressure Mean 118 H 03/14/25 16:00 Blood Pressure Position Sitting 03/14/25 16:00 Pulse Oximetry 98 03/14/25 16:00 Oxygen Delivery Method Room Air 03/14/25 16:00 Vital Signs Temperature 98.8 F 03/14/25 16:00 Pulse Rate 86 03/14/25 16:00 Respiratory Rate 16 03/14/25 16:00 Blood Pressure 168/93 H 03/14/25 16:00 Pulse Oximetry 98 03/14/25 16:00 Oxygen Delivery Method Room Air 03/14/25 16:00 Temperature 98.8 F 03/14/25 16:00 Pulse Rate 86 03/14/25 16:00 Respiratory Rate 16 03/14/25 16:00 Blood Pressure 168/93 H 03/14/25 16:00 Pulse Oximetry 98 03/14/25 16:00 Oxygen Delivery Method Room Air 03/14/25 16:00 Medical Decision Making Lab Data Labs: Lab Results 03/14/25 03/14/25 03/14/25 Range/Units 17:15 17:15 17:15 Urine Color Yellow Yellow (Yellow) Urine Appearance Clear Clear (Clear) Urine pH 7.5 (5.0-8.5) Ur Specific [place] (1.000-1.030) Urine Protein (Negative) Urine Glucose (UA) (Negative) Urine Ketones (Negative) Urine Blood (Negative) Urine Nitrite (Negative) Urine Bilirubin (Negative) Urine Urobilinogen (0.2-1.0) Ur Leukocyte Esterase (Negative) 03/14/25 03/14/25 03/14/25 Range/Units 17:15 17:15 17:15 Urine Color (Yellow) Urine Appearance (Clear) Urine pH 6.0 (5.0-8.5) Ur Specific [place] 1.020 1.010 (1.000-1.030) Urine Protein 3+ A 1+ A (Negative) Urine Glucose (UA) Negative (Negative) Urine Ketones (Negative) Urine Blood (Negative) Urine Nitrite (Negative) Urine Bilirubin (Negative) Urine Urobilinogen (0.2-1.0) Ur Leukocyte Esterase (Negative) 03/14/25 03/14/25 03/14/25 Range/Units 17:15 17:15 17:15 Urine Color (Yellow) Urine Appearance (Clear) Urine pH (5.0-8.5) Ur Specific [place] (1.000-1.030) Urine Protein (Negative) Urine Glucose (UA) Trace A (Negative) Urine Ketones Negative Negative (Negative) Urine Blood 3+ A 2+ A (Negative) Urine Nitrite Negative (Negative) Urine Bilirubin (Negative) Urine Urobilinogen (0.2-1.0) Ur Leukocyte Esterase (Negative) 03/14/25 03/14/25 03/14/25 Range/Units 17:15 17:15 17:15 Urine Color (Yellow) Urine Appearance (Clear) Urine pH (5.0-8.5) Ur Specific [place] (1.000-1.030) Urine Protein (Negative) Urine Glucose (UA) (Negative) Urine Ketones (Negative) Urine Blood (Negative) Urine Nitrite Negative (Negative) Urine Bilirubin Negative Negative (Negative) Urine Urobilinogen 0.2 0.2 (0.2-1.0) Ur Leukocyte Esterase 3+ A (Negative) 03/14/25 Range/Units 17:15 Urine Color (Yellow) Urine Appearance (Clear) Urine pH (5.0-8.5) Ur Specific [place] (1.000-1.030) Urine Protein (Negative) Urine Glucose (UA) (Negative) Urine Ketones (Negative) Urine Blood (Negative) Urine Nitrite (Negative) Urine Bilirubin (Negative) Urine Urobilinogen (0.2-1.0) Ur Leukocyte Esterase Negative (Negative) Discharge Plan Discharge Clinical Impression: H/O insertion of nephrostomy tube, Cervical cancer Patient Disposition: Home, Self-Care Condition: Stable Additional Instructions: At this point, as you have no clinical signs of infection and your white blood cell count is normal, no treatment for your urine is needed. The findings on your urine tests most likely represent colonization of the nephrostomy tube, which is growth of bacteria on the tubes themselves and does not represent infection. If you develop vomiting, fever, or flank pain, or if the tubes are not draining, return to the emergency department. You can stop your antibiotics. Activity Level: Activity as Tolerated Discharge Diet: Regular Prescriptions: No Action ascorbate calcium (vitamin C) 500 mg tablet 500 mg PO QDAY ciprofloxacin HCl 500 mg tablet 500 mg PO BID carvedilol 12.5 mg tablet 25 mg PO BID prochlorperazine maleate 10 mg tablet 10 mg PO Q6H PRN (Reason: nausea) polyethylene glycol 3350 [Miralax] 17 gram/dose powder 17 g PO DAILY PRN loperamide [Imodium A-D] 2 mg capsule 2 mg PO QID PRN olanzapine 2.5 mg tablet 2.5 mg PO QPM PRN coenzyme Q10 [Co Q-10] 100 mg capsule 100 mg PO DAILY omega-3 fatty acids-fish oil 360-1,200 mg capsule 1 cap PO DAILY trazodone 50 mg tablet 50 mg PO QHS Follow Up/Referrals: Axel Palomo MD [Primary Care Provider, Family Practice] Stand Alone [facility] Info Instructions
--- OUTSIDE RECORDS SUMMARY | 2025-03-14 16:36 | XMS_ITS | CCD ---
Author Name Interface, [id number] lity Address [address] [place] [address] [address] [place] [address] [facility] Address [address] [facility] [address] [place] [address] Care Team Providers Care Varnish Blender Name Role Phone Chica PALMA, Sarah Gallegos [...] Ordered By Specimen Source Lab Address 02/10 [facility] other lab See attache gomes Medications Date [...] Order PET/CT scan, sku ll base/mid thigh [facility] Ordered 02/02/2025 Physician Order RTC patient teaching RN Patient Teaching Visit Ordered 02/02/2025 Physician Order Radiation therap y consult [facility] Ordered 02/02/2025 Physician Order Immunotherapy Monitoring For [...] dose. Ordered 02/08/2025 Physician Order Consultation requested In dical Oncology for chemo/radiation at [facility]. 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 Primary GYNOncologist: Sarah Coto (Gynecological/Oncology) Date of Service: 02/02/2025 Reason for Consult: Cervical cancer? 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 01/05/25 Admitted to [facility]?with acute renal failure. CT showed worsening bilateral [...] empty nephrostomy tubes, working well.? Genetic Testing (Exhibit Electrician Oncology): None Review of Systems: A complete 14-point review of systems is negative except as noted in the above history of present illness. Past Medical History: Hypertension Surgical History: Skin cancer excision? 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 Laboratory Data: None ? Imaging: As documented above? Problems: * Cervical mass * Cervical cancer Assessment & Plan (Exhibit Electrician Oncology): Alyssa Pulido is a 74 year. [...] I, Sarah Coto, am located in the [facility]. The visit length was: 22 [...]
--- OUTSIDE RECORDS SUMMARY | 2025-03-14 16:37 | XMS_ITS | CCD ---
Author Name Interface, [id number] Address [address] [place], [place] [id number] [facility] Address [address] [place] [address] Care Team Providers Care Surgical Technology Instructor Name Role Phone Chica PALMA, Sarah Gallegos Unavailable Un available Allergies and Adverse Reactions Care Plan Reason for Visit Encounters Diagnostic Results Medications Problems Procedures Social History Visits Vital Signs Notes Section
[2025-03-14 17:45] LABS: Appearance Urine Clear (Clear); Bilirubin Urine Negative (Negative); Blood Urine 2+ (Negative); Color Urine Yellow (Yellow); Glucose Urine Trace (Negative); Ketones Urine Negative (Negative); Leukocyte Esterase Urine Negative (Negative); Nitrite Urine Negative (Negative); Protein Urine 1+ (Negative); Urobilinogen Urine 0.2 (0.2-1.0)
[2025-03-14 17:50] LABS: Appearance Urine Clear (Clear); Bilirubin Urine Negative (Negative); Blood Urine 3+ (Negative); Color Urine Yellow (Yellow); Glucose Urine Negative (Negative); Ketones Urine Negative (Negative); Leukocyte Esterase Urine 3+ (Negative); Nitrite Urine Negative (Negative); Protein Urine 3+ (Negative); Urobilinogen Urine 0.2 (0.2-1.0); pH Urine 7.5 (5.0-8.5)
[2025-03-14 18:08] LABS: Bacteria Urine Many; RBC Urine 0-2 (0-2); RBC Urine 25-50 (0-2); WBC Clumps Urine Moderate; WBC Urine 0-2 (0-5); WBC Urine >100 (0-5)
== END 2025-03-14 18:27 | disposition home or self-care (01) ==
PROVIDERS: Emergency Provider Family Medicine; PCP Family Medicine
DX: C53.9 Malignant neoplasm of cervix uteri, unspecified (principal); Z93.6 Other artificial openings of urinary tract status
CPT/HCPCS: 81001; 87086; 87186; 99282; 99283; 99284

== ENCOUNTER 2025-04-27 14:17 | Outpatient (CLI) | payer MEDICARE, BC, SELFPAY | END 2025-04-27 14:18 | disposition home or self-care (01) | PROVIDERS: PCP Family Medicine; Visit Provider Family Medicine | DX: R53.1 Weakness (principal) | CPT/HCPCS: A0425; A0433 ==

== ENCOUNTER 2025-04-27 14:56 | Inpatient (IN) | payer MEDICARE, BC, SELFPAY ==
--- OUTSIDE RECORDS SUMMARY | 2025-03-14 09:41 | XMS_ITS | Encounter Summary ---
Author Organization [facility] Address [address] [place] [address] Care Team Providers Care Liquefaction Supervisor Name Role Phone Unavailable Primary Care Provider Unavailabl e Encounter Details Date Type Department Care Team (Latest Contact Info) Description 03/14/2025 9:41 AM CDT - 03/14/2025 11:59 PM CDT Hospital Encounter Department of Radiation Oncology in [place], [place] [address] [place] [phone] Thelma Streeter M.D. [address] [place] [address] Discharge Disposition: Home or Self Care Social History Tobacco Use Types Packs/Day Years Used Date Smoking Tobacco: Never Smokeless Tobacco: Never Alcohol Use Standard Drinks/Week Comments Not Currently 0 (1 standard drink = 0.6 oz pure alcohol) Quit drinkinking in August after pelvic pain started. [facility] Utilities Answer Date Recorded In the past 12 months has e [employer], [employer], oil, or water [employer] threatened to shut off services in your home? No 03/21/2025 Hunger Vital Sign Answer Date Recorded Within the past 12 months, y ou worried that your food would run out before you got the money to buy more. Never true 03/21/20 25 Within the past 12 months, t he food you bought just didn't last and you didn't have money to get more. Never true 03/21/2025 PRAPARE - Transportation Answer Date Re corded In the past 12 months, has l ack of transportation kept you from medical appointments or from getting medications? No 02/22 In the past 12 months, has l ack of transportation kept you from meetings, work, or from getting things needed for daily living? No 03/21/2025 Housing Stability Answer Date Recorded What is your living situation today? 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 01/14/2025 carvediloL (Coreg) 25 mg tablet Take 25 mg by mouth 2 (two) times a day with meals. 01/18/2025 cholecalciferol (Vitamin D3) 50 mcg (2,000 Unit) capsule Take 50 mcg by mouth daily. 06/10/2022 co-enzyme Q-10 (Co Q-10) 100 mg capsule Take 100 mg by mouth daily. 06/10/2022 omega-3 fatty acids-fish oil 360-1,200 mg capsule Take 1 capsule by mouth. polyethylene glycol (Miralax) 17 gram/dose oral powder Take 17 g by mouth at bedtime as needed. 01/14/2025 documented as of this encounter Plan of Treatment Upcoming Encounters Date Type Department Care Team (Late st Contact Info) Description 04/28/2025 2:00 PM CDT Appointment Department of Radiation Oncology in [place] [id number] [place] [phone] Thelma Streeter M.D. [address] [place] [phone] 04/29/2025 10:00 AM CDT Appointment Department of Radiology, [facility], in [place], [place] [address] [place] [phone] Jessie Borden APRN, C.N.P., D.N.P. [address] [place] [phone] documented as of this encounter Visit Diagnoses Not on filedocumented in this encounter
--- OUTSIDE RECORDS SUMMARY | 2025-03-15 09:19 | XMS_ITS | Encounter Summary ---
Author Organization [facility] Address [address] [place] [address] Care Team Providers Care Technical Sales Manager Name Role Phone Unavailable Primary Care Provider Unavailabl e Encounter Details Date Type Department Care Team (Latest Contact Info) Description 03/15/2025 9:19 AM CDT Hospital Encounter Department of Radiation Oncology in [place], [place] [address] [place] [phone] Thelma Streeter M.D. [address] [place] [address] Discharge Disposition: Home or Self Care Social History Tobacco Use Types Packs/Day Years Used Date Smoking Tobacco: Never Smokeless Tobacco: Never Alcohol Use Standard Drinks/Week Comments Not Currently 0 (1 standard drink = 0.6 oz pure alcohol) Quit drinkinking in August after pelvic pain started. [facility] Utilities Answer Date Recorded In the past 12 months has [facility] [employer], gas, oil, or water [employer] threatened to shut off services in your [...] your living situation today? 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 [address] [place] [phone] 04/29/2025 10:00 AM CDT Appointment Department of Radiology, [facility], in [place], [place] [address] [place] [phone] Jessie Borden APRN, C.N.P., D.N.P. [address] [place] [phone] documented as of this encounter Visit Diagnoses Not on filedocumented in this encounter
--- OUTSIDE RECORDS SUMMARY | 2025-03-15 09:20 | XMS_ITS | Encounter Summary ---
Author Organization [facility] Address [address] [place] [address] Care Team Providers Care Temple Marker Name Role Phone Unavailable Primary Care Provider Unavailabl e Reason for Referral * Radiation Therapy (Routine) - Authorized Specialty Diagnoses / Procedures Referred By Contac t Referred To Contact Diagnoses Malignant Neoplasm Of Cervix (HCC) Procedures Management Visit Thelma Streeter M.D. [address] [place] [address] Phone: tel: fax: [facility] Region Referral ID Status Reason Start Date Expiration Date V isits Requested Visits Authorized [id number] Authorized 02/08/2025 05/11/2026 10 10 Reason for Visit * Radiation Therapy (Routine) - Authorized Specialty Diagnoses / Procedures Referred By Pastora piedra Referred To Contact Diagnoses Malignant Neoplasm Of Cervix (HCC) Procedures Management Visit Thelma Streeter M.D. [address] [place] [address] Phone: tel: fax: [facility] Region Referral ID Status Reason Start Date Expiration Date V isits Requested Visits Authorized [id number] Authorized 02/08/2025 05/11/2026 10 10 Encounter Details Date Type Department Care Team (Latest Contact Info) Description 03/15/2025 9:20 AM CDT - 03/15/2025 12:01 PM CDT Hospital Encounter Department of Radiation Oncology in [place], [place] [address] [place] [phone] Chase Flores M.D. [address] [place] [phone] Malignant Neoplasm Of Cervix (HCC) Social History Tobacco Use Types Packs/Day Years Used Date Smoking Tobacco: Never Smokeless Tobacco: Never Alcohol Use Standard Drinks/Week Comments Not Currently 0 (1 standard drink = 0.6 oz pure alcohol) Quit drinkinking in August after pelvic pain started. [facility] Utilities Answer Date Recorded In the past 12 months has th e [employer], gas, oil, or water [facility] threatened to shut off services in your [...] your living situation today? 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 01/14/2025 documented as of this encounter Progress Notes * Chase Flores M.D. - 03/15/2025 10:00 AM CDT SUBJECTIVE REASON FOR VISIT Evaluation for side effects while receiving radiation treatment for 1. Malignant Neoplasm Of Cervix (HCC) SUPERVISED BY: Chase Flores M.D. HISTORY OF PRESENT ILLNESS Ms. Alyssa Garcia is a 74 y.o. 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 She is getting weekly Carboplatin and Pembrolizumab every 3 weeks under the care of Dr. Pollock at [facility] Treatment Course: 1xPelvis Plan ID Fractions Dose / Fraction (cGy) Dose Treated (cGy) Dose Planned (cGy) First Treatment Last Treatment Elapsed Days [id number] 180 3060 4500 02/21/2025 03/15/2025 Course Summary 02/21/2025 03/15/2025 The patient was seen and examined today with Dr. Flores. The patient reports to be feeling well overall. She notes that her PCP prescribed her an antibioticfor the sediment that was occurring in her nephrostomy bags. After she started to take the Ciprofloxacin she started to feel unwell and went into the ER in [place]. The ER physician there recommend ed that she stop taking the antibiotic and he thought it was residual bacteria in her nephrostomy bags verses an actual infection. The patient notes feels better after being off the antibiotic and denies other signs and symptoms of an infection. She also notes reduced sediment in her nephrostomy bags. She continues to experience bowel fluctuation between constipation and diarrhea that she is managing with stools softeners and Imodium as needed. She continues sitz baths and Preparation H as needed for rectal irritation. She continues to occasionally leak urine when she passes gas. She feels like she is staying hydrated and eating well. PATIENT REPORTED SYMPTOM SCREEN FATIGUE (Scale: 0 = no fatigue; 10 = worst fatigue you can imagine): not reported PAIN (Scale: 0 = no pain; 10 = worst pain you can imagine): not reported OVERALL QUALITY OF LIFE (Scale: 0 = as bad as can be; 10 = as good as can be): not reported OBJECTIVE BP 109/70 (BP Location: Right arm, Patient Position: Sitting, Cuff Size: Regular) Pulse 81 Temp36 ??C (Temporal) Wt 67.9 kg PHYSICAL EXAM General: Alert and oriented in no apparent distress. ASSESSMENT / PLAN #1 Stage BRICE (cT4, cN0, cM0) squamous cell carcinoma of the cervix #2 Concurrent chemoradiotherapy with immunotherapy (weekly Carboplatin and every 3 week Pembrolizumab) to cervix and regional lymph nodes initiated on February 21, 2025; anticipated date of completion March 28, 2025 The patient is tolerating radiation treatment well overall. She can continue to manage bowel pattern fluctuations with Imodium and stool softeners as needed. Brachytherapy is scheduled at the beginning of March on our [place]. Dr. Flores was in for any questions or concerns. She will continue with radiation treatment as planned. She can contact us with any questions or concerns. Signed by: Moon Gong R.N. 03/15/2025 12:43 PM CDT ATTESTATION FOR MANAGEMENT VISIT I saw and evaluated the patient and participated in the sherman portions of the service including medical decision making as noted above. I reviewed the documentation of Ms. Moon Gong RN and agree with the findings and plan. The patient appears well on exam. We will continue with radiation as planned and monitor weekly. We talked about her next steps and brachytherapy schedule in [place] and she is arranging transportation then meet those dates. Chase Flores M.D., 03/15/2025 documented in this encounter Miscellaneous Notes * Addendum Note - Moon Gong R.N. - 03/15/2025 10:00 AM CDTEncounter addended by: Moon Gong R.N. on: 03/15/2025 1:18 PM Actions taken: Pend clinical note * Addendum Note - Chase Flores M.D. - 03/15/2025 10:00 AM CDTEncounter addended by: Chase Flores M.D. on: 03/15/2025 3:08 PM Actions taken: Clinical Note Signed, Delete clinical note documented in this encounter Plan of Treatment Upcoming Encounters Date Type Department Care Team (Late st Contact Info) Description 04/28/2025 2:00 PM CDT Appointment Department of Radiation Oncology in [place], [place] [address] [place] [phone] Thelma Streeter M.D. [address] [place] [phone] 04/29/2025 10:00 AM CDT Appointment Department of Radiology, [facility], in [place], [place] [address] [place] [address] Jessie Borden APRN, C.N.P., D.N.P. [address] [place] [phone] Scheduled Orders Name Type Priority Associated Diagnoses Orde r Schedule Management Visit Radiation Oncology Routine Malignant Neoplasm Of Cervix (HCC) Once for 1 Occurrences starting 03/15/2025 until 03/15/2025 documented as of this encounter Visit Diagnoses Diagnosis Malignant Neoplasm Of Cervix (HCC) documented in this encounter
--- OUTSIDE RECORDS SUMMARY | 2025-03-16 09:19 | XMS_ITS | Encounter Summary ---
Author Organization [facility] Address [address] [place] [address] Care Team Providers Care Fabric Designer Name Role Phone Unavailable Primary Care Provider Unavailabl e Encounter Details Date Type Department Care Team (Latest Contact Info) Description 03/16/2025 9:19 AM CDT - 03/16/2025 11:59 PM CDT Hospital Encounter Department of Radiation Oncology in [place], [place] [address] [place] [phone] Thelma Streeter M.D. [address] [place] [phone] Discharge Disposition: Home or Self Care Social History Tobacco Use Types Packs/Day Years Used Date Smoking Tobacco: Never Smokeless Tobacco: Never Alcohol Use Standard Drinks/Week Comments Not Currently 0 (1 standard drink = 0.6 oz pure alcohol) Quit drinkinking in August after pelvic pain started. [facility] Utilities Answer Date Recorded In the past 12 months has e [employer], [employer], oil, or water [employer] threatened to shut off services in your [...] your living situation today? 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 [address] [place] [phone] 04/29/2025 10:00 AM CDT Appointment Department of Radiology, [facility], in [place], [place] [address] [place] [phone] Jessie Borden APRN, C.N.P., D.N.P. [address] [place] [phone] documented as of this encounter Visit Diagnoses Not on filedocumented in this encounter
--- OUTSIDE RECORDS SUMMARY | 2025-03-17 09:12 | XMS_ITS | Encounter Summary ---
Author Organization [facility] Address [address] [place] [address] Care Team Providers Care College Sports Coach Name Role Phone Unavailable Primary Care Provider Unavailabl e Encounter Details Date Type Department Care Team (Latest Contact Info) Description 03/17/2025 9:12 AM CDT - 03/17/2025 11:59 PM CDT Hospital Encounter Department of Radiation Oncology in [place], [place] [address] [place] [phone] Thelma Streeter M.D. [address] [place] [address] Discharge Disposition: Home or Self Care Social History Tobacco Use Types Packs/Day Years Used Date Smoking Tobacco: Never Smokeless Tobacco: Never Alcohol Use Standard Drinks/Week Comments Not Currently 0 (1 standard drink = 0.6 oz pure alcohol) Quit drinkinking in August after pelvic pain started. [facility] Utilities Answer Date Recorded In the past 12 months has e [employer], [employer], oil, or water [employer] threatened to shut off services in your [...] your living situation today? 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 [address] [place] [phone] 04/29/2025 10:00 AM CDT Appointment Department of Radiology, [facility], in [place], [place] [address] [place] [phone] Jessie Borden APRN, C.N.P., D.N.P. [address] [place] [phone] documented as of this encounter Visit Diagnoses Not on filedocumented in this encounter
--- OUTSIDE RECORDS SUMMARY | 2025-03-18 09:13 | XMS_ITS | Encounter Summary ---
Author Organization [facility] Address [address] [place] [address] Care Team Providers Care Insurance Loss Assessor Name Role Phone Unavailable Primary Care Provider Unavailabl e Encounter Details Date Type Department Care Team (Latest Contact Info) Description 03/18/2025 9:13 AM CDT - 03/18/2025 11:59 PM CDT Hospital Encounter Department of Radiation Oncology in [place], [place] [address] [place] [phone] Thelma Streeter M.D. [address] [place] [address] Discharge Disposition: Home or Self Care Social History Tobacco Use Types Packs/Day Years Used Date Smoking Tobacco: Never Smokeless Tobacco: Never Alcohol Use Standard Drinks/Week Comments Not Currently 0 (1 standard drink = 0.6 oz pure alcohol) Quit drinkinking in August after pelvic pain started. [facility] Utilities Answer Date Recorded In the past 12 months has e [employer], [employer], oil, or water [employer] threatened to shut off services in your [...] your living situation today? 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 [address] [place] [phone] 04/29/2025 10:00 AM CDT Appointment Department of Radiology, [facility], in [place], [place] [address] [place] [phone] Jessie Borden APRN, C.N.P., D.N.P. [address] [place] [phone] documented as of this encounter Visit Diagnoses Not on filedocumented in this encounter
--- OUTSIDE RECORDS SUMMARY | 2025-03-21 08:30 | XMS_ITS | Encounter Summary ---
Author Organization [facility] Address [address] [place] [address] Care Team Providers Care Account Specialist Name Role Phone Unavailable Primary Care Provider Unavailabl e Encounter Details Date Type Department Care Team (Latest Contact Info) Description 03/21/2025 8:30 AM CDT - 03/21/2025 11:59 PM CDT Hospital Encounter Department of Radiation Oncology in [place], [place] [address] [place] [phone] Thelma Streeter M.D. [address] [place] [address] Discharge Disposition: Home or Self Care Social History Tobacco Use Types Packs/Day Years Used Date Smoking Tobacco: Never Smokeless Tobacco: Never Alcohol Use Standard Drinks/Week Comments Not Currently 0 (1 standard drink = 0.6 oz pure alcohol) Quit drinkinking in August after pelvic pain started. [facility] Utilities Answer Date Recorded In the past 12 months has e [email or web address], [employer], oil, or water [employer] threatened to shut off services in your [...] your living situation today? 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 [address] [place] [phone] 04/29/2025 10:00 AM CDT Appointment Department of Radiology, [facility], in [place], [place] [address] [place] [phone] Jessie Borden APRN, C.N.P., D.N.P. [address] [place] [phone] documented as of this encounter Visit Diagnoses Not on filedocumented in this encounter
--- OUTSIDE RECORDS SUMMARY | 2025-03-22 09:01 | XMS_ITS | Encounter Summary ---
Author Organization [facility] Address [address] [place] [address] Care Team Providers Care Homicide Investigator Name Role Phone Unavailable Primary Care Provider Unavailabl e Reason for Referral * Outpatient (Routine) - Closed Specialty Diagnoses / Procedures Referred By Contac t Referred To Contact Urology Diagnoses Malignant Neoplasm Of Cervix (HCC) Thelma Streeter M.D. [address] [place] [address] Phone: tel: fax: [facility] Referral ID Status Reason Start Date Expiration Date Visits Re quested Visits Authorized [id number] Closed 03/22/2025 09/21/2026 1 1 * Radiation Therapy (Routine) - Authorized Specialty Diagnoses / Procedures Referred By Pastora piedra Referred To Contact Diagnoses Malignant Neoplasm Of Cervix (HCC) Procedures Management Visit Thelma Streeter M.D. [address] [place] [address] Phone: tel: fax: [facility] Referral ID Status Reason Start Date Expiration Date V isits Requested Visits Authorized [id number] Authorized 02/08/2025 05/11/2026 10 10 Reason for Visit * Radiation Therapy (Routine) - Authorized Specialty Diagnoses / Procedures Referred By Contac t Referred To Contact Diagnoses Malignant Neoplasm Of Cervix (HCC) Procedures Management Visit Thelma Streeter M.D. [address] [place] [address] Phone: tel: fax: [facility] Region Referral ID Status Reason Start Date Expiration Date V isits Requested Visits Authorized [id number] Authorized 02/08/2025 05/11/2026 10 10 Encounter Details Date Type Department Care Team (Latest Contact Info) Description 03/22/2025 9:01 AM CDT - 03/22/2025 9:44 AM CDT Hospital Encounter Department of Radiation Oncology in [place], [place] [address] [place] [phone] Thelma Streeter M.D. [address] [place] [phone] Malignant Neoplasm Of Cervix (HCC) Social History Tobacco Use Types Packs/Day Years Used Date Smoking Tobacco: Never Smokeless Tobacco: Never Alcohol Use Standard Drinks/Week Comments Not Currently 0 (1 standard drink = 0.6 oz pure alcohol) Quit drinkinking in August after pelvic pain started. [facility] Utilities Answer Date Recorded In the past 12 months has [employer], gas, oil, or water company threatened to shut off services in your [...] your living situation today? 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 - 03/22/2025 9:30 AM CDT ATTESTATION FOR MANAGEMENT VISIT I saw and evaluated the patient and participated in the sherman portions of the service as noted below.I reviewed the documentation of Ms.Alexis Charissa RN and agree with the findings and plan. The patient appears well on exam. We will continue with radiation as planned and monitor weekly. I communicated with Dr. Cunningham about her platelets. If they are 50K or lower then she will need a platelet transfusion the night before the brachy procedure. We also talked about making a referral to Urology in [place] to see if her nephrostomy tubes can be internalized as she likely will need thetubes in place until her 3 month follow-up exam. Patient knows not to get the tube exchanged in [facility] with the interventional radiologist as we will hopefully do this with our [place] [facility]ists. Thelma Streeter M.D., 03/22/2025 SUBJECTIVE REASON FOR VISIT Evaluation for side effects while receiving radiation treatment for 1. Malignant Neoplasm Of Cervix (HCC) SUPERVISED BY: Thelma Streeter M.D. HISTORY OF PRESENT ILLNESS Ms. Alyssa Garcia is a 74 y.o. 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 She is getting weekly Carboplatin and Pembrolizumab every 3 weeks under the care of Dr. Pollock at [facility] Treatment Course: 1xPelvis Plan ID Fractions Dose / Fraction (cGy) Dose Treated (cGy) Dose Planned (cGy) First Treatment Last Treatment Elapsed Days [id number] 180 3780 4500 02/21/2025 03/21/2025 Course Summary 02/21/2025 03/21/2025 The patient was seen and examined today with Dr. Streeter. The patient reports to be feeling well overall. She is currently getting weekly to biweekly nephrostomy dressing changes and her tubes are doing well. She continues to experience bowel fluctuation between constipation and diarrhea that she is managing with stools softeners and Imodium as needed. She continues sitz baths and Preparation H as needed for rectal irritation. She continues to occasionally leak urine when she passes gas. She notes that she could increase her fluid intake. The patient notified our team that yesterday her platelet value was 88 instead of above 100, but her medical oncology team ok 'd her to receive her chemotherapy. She also notes that she has been experiencing low blood pressures and dizziness with movement. She saw her PCP last week and they did notadvise any changes to her regimen. Yesterday Alyssa cut her evening dose of carvedilol in half andtook her full morning dose. Today her blood pressure remains on the lower side, but she is not experiencing the dizziness anymore. We discussed the importance of notifying her PCP of the dose change as well as making sure she is consuming enough fluid and electrolytes daily. PATIENT REPORTED SYMPTOM SCREEN FATIGUE (Scale: 0 = no fatigue; 10 = worst fatigue you can imagine): 7 PAIN (Scale: 0 = no pain; 10 = worst pain you can imagine): 1 OVERALL QUALITY OF LIFE (Scale: 0 = as bad as can be; 10 = as good as can be): 6 OBJECTIVE BP 113/69 (BP Location: Right arm, Patient Position: Sitting, Cuff Size: Regular) Pulse 67 Temp36.5 ??C (Temporal) Wt 66.9 kg PHYSICAL EXAM General: Alert and oriented [...] at the beginning of March on our [facility]. Dr. Streeter was in for any questions or concerns. She will continue with radiation treatment as planned. She can contact us with any questions or concerns. Signed by: Ellie Carrington R.N. 03/22/2025 10:05 AM CDT documented in this encounter Plan of Treatment Upcoming Encounters Date Type Department Care Team (Late st Contact Info) Description 04/28/2025 2:00 PM CDT Appointment Department of Radiation Oncology in [address] [phone] Thelma Streeter M.D. [address] [place] [phone] 04/29/2025 10:00 AM CDT Appointment Department of Radiology, [facility], in [place], [place] [address] [place] [phone] Jessie Borden APRN, C.N.P., D.N.P. [address] [place] [phone] Scheduled Orders Name Type Priority Associated Diagnoses Order Schedule Management Visit Radiation Oncology Routine Malignant Neoplasm Of Cervix (HCC) Once for 1 Occurrences starting 03/22/2025 until 03/22/2025 Urinalysis, with Microscopic: Urine, Midstream Lab Routine Malignant Neoplasm Of Cervix (HCC) Expected: 04/22/2025, Expires: 06/22/2026 Scheduled Referrals Name Type Priority Associated Diagnoses Orde r Schedule Urology - Other/benign - kidney / ureter consult (clinic) Outpatient Referral Routine Malignant Neoplasm Of Cervix (HCC) Expected: 04/22/2025, Expires: 06/22/2026 documented as of this encounter Results * (ABNORMAL) Creatinine with Estimated GFR (04/26/2025 12:16 PM CDT) Creatinine 1.21(H) 0.59 - 1.04 mg/dL 04/26/2025 1:19 PM CDT DTL Estimated GFR (eGFR) 47(L) >=60 mL/min/BSA 04/26/2025 1:19 PM CDT DTL Comment: Estimated GFR calculated using the 2020 CKD_EPI creatinine equation. Blood (Blood, Venous) 04/26/2025 12:16 PM CDT 04/26/2025 12:38 PM CDT us Thelma Streeter M.D. LAB BLOOD ADD-ON Final Re sult [facility] [address] [place], [place] [address] DTL [facility] [address] [place] [address] documented in this encounter Visit Diagnoses Diagnosis Malignant Neoplasm Of Cervix (HCC) documented in this encounter
--- OUTSIDE RECORDS SUMMARY | 2025-03-22 09:45 | XMS_ITS | Encounter Summary ---
Author Organization [facility] Address [address] [place] [address] Care Team Providers Care System Controller Name Role Phone Unavailable Primary Care Provider Unavailabl e Encounter Details Date Type Department Care Team (Latest Contact Info) Description 03/22/2025 9:45 AM CDT - 03/22/2025 11:59 PM CDT Hospital Encounter Department of Radiation Oncology in [place], [place] [address] [place] [phone] Thelma Streeter M.D. [address] [place] [phone] Discharge Disposition: Home or Self Care Social History Tobacco Use Types Packs/Day Years Used Date Smoking Tobacco: Never Smokeless Tobacco: Never Alcohol Use Standard Drinks/Week Comments Not Currently 0 (1 standard drink = 0.6 oz pure alcohol) Quit drinkinking in August after pelvic pain started. [facility] Utilities Answer Date Recorded In the past 12 months has e [employer], [employer], oil, or water [employer] threatened to shut off services in your [...] your living situation today? 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 [address] [place] [phone] 04/29/2025 10:00 AM CDT Appointment Department of Radiology, [facility], in [place], [place] [address] [place] [phone] Jessie Borden APRN, C.N.P., D.N.P. [address] [place] [phone] documented as of this encounter Visit Diagnoses Not on filedocumented in this encounter
--- OUTSIDE RECORDS SUMMARY | 2025-03-23 09:32 | XMS_ITS | Encounter Summary ---
Author Organization [facility] Address [address] [place] [address] Care Team Providers Care Field Engineer Name Role Phone Unavailable Primary Care Provider Unavailabl e Encounter Details Date Type Department Care Team (Latest Contact Info) Description 03/23/2025 9:32 AM CDT - 03/23/2025 11:59 PM CDT Hospital Encounter Department of Radiation Oncology in [place], [place] [address] [place] [phone] Thelma Streeter M.D. [address] [place] [phone] Discharge Disposition: Home or Self Care Social History Tobacco Use Types Packs/Day Years Used Date Smoking Tobacco: Never Smokeless Tobacco: Never Alcohol Use Standard Drinks/Week Comments Not Currently 0 (1 standard drink = 0.6 oz pure alcohol) Quit drinkinking in August after pelvic pain started. [facility] Utilities Answer Date Recorded In the past 12 months has e [employer], [employer], oil, or water [employer] threatened to shut off services in your [...] your living situation today? 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 [address] [place] [phone] 04/29/2025 10:00 AM CDT Appointment Department of Radiology, [facility], in [place], [place] [address] [place] [phone] Jessie Borden APRN, C.N.P., D.N.P. [address] [place] [phone] documented as of this encounter Visit Diagnoses Not on filedocumented in this encounter
--- OUTSIDE RECORDS SUMMARY | 2025-03-24 09:29 | XMS_ITS | Encounter Summary ---
Author Organization [facility] Address [address] [place] [address] Care Team Providers Care Chain Maker Hand Name Role Phone Unavailable Primary Care Provider Unavailabl e Encounter Details Date Type Department Care Team (Latest Contact Info) Description 03/24/2025 9:29 AM CDT - 03/24/2025 11:59 PM CDT Hospital Encounter Department of Radiation Oncology in [place], [place] [address] [place] [phone] Thelma Streeter M.D. [address] [place] [phone] Discharge Disposition: Home or Self Care Social History Tobacco Use Types Packs/Day Years Used Date Smoking Tobacco: Never Smokeless Tobacco: Never Alcohol Use Standard Drinks/Week Comments Not Currently 0 (1 standard drink = 0.6 oz pure alcohol) Quit drinkinking in August after pelvic pain started. [facility] Utilities Answer Date Recorded In the past 12 months has e [employer], [employer], oil, or water [employer] threatened to shut off services in your [...] your living situation today? 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 [address] [place] [phone] 04/29/2025 10:00 AM CDT Appointment Department of Radiology, [facility], in [place], [place] [address] [place] [phone] Jessie Borden APRN, C.N.P., D.N.P. [address] [place] [phone] documented as of this encounter Visit Diagnoses Not on filedocumented in this encounter
--- OUTSIDE RECORDS SUMMARY | 2025-03-28 08:15 | XMS_ITS | Encounter Summary ---
Author Organization [facility] Address [address] [place] [address] Care Team Providers Care Health Services Coordinator Name Role Phone Unavailable Primary Care Provider Unavailabl e Encounter Details Date Type Department Care Team (Late st Contact Info) Description 03/28/2025 8:15 AM CDT Hospital Encounter Department of Radiation Oncology in [place], [place] [address] [place] [phone] Thelma Streeter M.D. [address] [place] [address] Social History Tobacco Use Types Packs/Day Years Used Date Smoking Tobacco: Never Smokeless Tobacco: Never Alcohol Use Standard Drinks/Week Comments Not Currently 0 (1 standard drink = 0.6 oz pure alcohol) Quit drinkinking in August after pelvic pain started. [facility] Utilities Answer Date Recorded In the past 12 months has e [employer], gas, oil, or water [employer] threatened to shut off services in your [...] your living situation today? 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 [address] [place] [address] 04/29/2025 10:00 AM CDT Appointment Department of Radiology, [facility], in [place], [place] [address] [place] [address] Jessie Borden APRN, C.N.P., D.N.P. [address] [place] [phone] documented as of this encounter Visit Diagnoses Not on filedocumented in this encounter
--- OUTSIDE RECORDS SUMMARY | 2025-03-28 08:45 | XMS_ITS | Encounter Summary ---
Author Organization [facility] Address [address] [place] [address] Care Team Providers Care Continuous Churn Buttermaker Name Role Phone Unavailable Primary Care Provider Unavailabl e Reason for Referral * Outpatient (Routine) - Authorized Specialty Diagnoses / Procedures Referred By Contac t Referred To Contact Radiation Oncology Sabrina Foley APRN, C.N.PTaylor, D.N.PTaylor [address] [place] [phone] Phone: tel: fax: Thelma Streeter M.D. [address] [place] [phone] Phone: tel: fax: Referral ID Status Reason Start Date Expiration Date V isits Requested Visits Authorized [id number] Authorized 03/28/2025 09/27/2026 1 1 * Radiation Therapy (Routine) - Authorized Specialty Diagnoses / Procedures Referred By Contac t Referred To Contact Diagnoses Malignant Neoplasm Of Cervix (HCC) Procedures Management Visit Thelma Streeter M.D. [address] [place] [phone] Phone: tel: fax: [facility] Region Referral ID Status Reason Start Date Expiration Date V isits Requested Visits Authorized [id number] Authorized 02/08/2025 05/11/2026 10 10 Reason for Visit * Radiation Therapy (Routine) - Authorized Specialty Diagnoses / Procedures Referred By Pastora piedra Referred To Contact Diagnoses Malignant Neoplasm Of Cervix (HCC) Procedures Management Visit Thelma Streeter M.D. [address] [place] [address] Phone: tel: fax: [facility] Region Referral ID Status Reason Start Date Expiration Date V isits Requested Visits Authorized [id number] Authorized 02/08/2025 05/11/2026 10 10 Encounter Details Date Type Department Care Team (Latest Contact Info) Description 03/28/2025 8:45 AM CDT - 03/28/2025 2:48 PM CDT Hospital Encounter Department of Radiation Oncology in [place], [place] [address] [place] [phone] Thelma Streeter M.D. [address] [place] [address] Malignant Neoplasm Of Cervix (HCC) Social History Tobacco Use Types Packs/Day Years Used Date Smoking Tobacco: Never Smokeless Tobacco: Never Alcohol Use Standard Drinks/Week Comments Not Currently 0 (1 standard drink = 0.6 oz pure alcohol) Quit drinkinking in August after pelvic pain started. [facility] Utilities Answer Date Recorded In the past 12 months has [facility] [employer], [employer], oil, or water [employer] threatened to shut off services in your home? No 03/21/2025 Hunger Vital Sign Answer Date Recorded Within the past 12 months, y ou worried that your food would run out before you got the money to buy more. Never true 03/21/20 Within the past 12 months, t he [...] your living situation today? 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 - 03/28/2025 8:45 AM CDT SUBJECTIVE REASON FOR VISIT Evaluation [...] under the care of Dr. Pollock at [facility] Treatment Course: 1xPelvis Plan ID Fractions Dose / Fraction (cGy) Dose Treated (cGy) Dose Planned (cGy) First Treatment Last Treatment Elapsed Days [id number] 180 4500 4500 02/21/2025 03/28/2025 35 Course Summary 02/21/2025 03/28/2025 35 The patient was seen and examined today with Dr. Streeter. The patient reports severe fatigue this week. She continues experiencing constant significant rectal pressure and discomfort. She is having regular soft bowel movements without blood. She is not finding any relief with any OTC remedies. She is no longer doing sitz baths as she did not find them helpful. She reports an increase in pain around her nephrostomy tube sites. She continues getting the dressings changed regularly with home health aides. PATIENT REPORTED SYMPTOM SCREEN FATIGUE (Scale: 0 = no fatigue; 10 = worst fatigue you can imagine): 7 PAIN (Scale: 0 = no pain; 10 = worst pain you can imagine): 7 OVERALL QUALITY OF LIFE (Scale: 0 = as bad as can be; 10 = as good as can be): 3 OBJECTIVE BP 127/75 (BP Location: Right arm, Patient Position: Sitting, Cuff Size: Regular) Pulse 71 Temp36.2 ??C (Temporal) Wt 67.2 kg PHYSICAL EXAM General: Alert and oriented in no apparent distress. 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 She starts brachytherapy radiation this weekwith Dr. Cunningham in [place]. We discussed continued use of OTC remedies to help with rectal pressure. We discussed keeping bowel movements soft. She is scheduled with Urology in [place] in April to assist with her nephrostomy tubes. We will see her back in [address] Streeter was in for any questions or concerns. She will continue with radiation treatment as planned. She can contact us with any questions or concerns. Signed by: Sabrina Foley APRN, C.N.P., [place].N.PTaylor 03/28/2025 10:12 AM CDT Cosigned by Thelma Streeter M.D. at 03/28/2025 4:07 PM CDT Associated attestation - Thelma Streeter M.D. - 03/28/2025 4:07 PM CDT I saw and evaluated the patient and participated in the sherman portions of the service. I reviewed thedocumentation of Ms. Sabrina Foley APRN and agree with the findings and plan. The patient appears well on exam. We will continue with radiation as planned and monitor weekly. Ms. Alyssa Garcia completed radiation treatment as planned without interruptions. The course of treatment was tolerated well. The patient experienced toxicities of grade grade 1 diarrhea, constipation, proctitis and pelvic pain during radiation treatment. We anticipate that she will receive a blood transfusion given her Hb of 7.3. She has her pelvic MRItomorrow and will meet Dr. Cunningham this afternoon. Her first brachy therapy procedure is on Friday. I told her I'd be happy to see her back in 1 month after her brachy is complete. I think the timing for the Urology consultation is appropriate. Thelma Streeter M.D., 03/28/2025 documented in this encounter Plan of Treatment Upcoming Encounters Date Type Department Care Team (Late st Contact Info) Description 04/28/2025 2:00 PM CDT Appointment Department of Radiation Oncology in [address] [phone] Thelma Streeter M.D. [address] [place] [phone] 04/29/2025 10:00 AM CDT Appointment Department of Radiology, [facility], in [place], [place] [address] [place] [address] Jessie Borden APRN, C.N.P., D.N.P. [address] [place] [phone] Scheduled Orders Name Type Priority Associated Diagnoses Orde r Schedule Management Visit Radiation Oncology Routine Malignant Neoplasm Of Cervix (HCC) Once for 1 Occurrences starting 03/28/2025 until 03/28/2025 Scheduled Referrals Name Type Priority Associated Diagnoses Orde r Schedule Radiation Oncology office visit (clinic) Outpatient Referral Routine Expected: 04/28/2025, Expires: 06/28/2026 documented as of this encounter Visit Diagnoses Diagnosis Malignant Neoplasm Of Cervix (HCC) documented in this encounter
--- OUTSIDE RECORDS SUMMARY | 2025-03-28 14:49 | XMS_ITS | Encounter Summary ---
Author Organization [facility] Address [address] [place] [address] Care Team Providers Care Newspaper Delivery Counselor Name Role Phone Unavailable Primary Care Provider Unavailabl e Reason for Referral * Outpatient (Routine) - Closed Specialty Diagnoses / Procedures Referred By Pastora piedra Referred To Contact Radiation Oncology Diagnoses Malignant Neoplasm Of Cervix (HCC) Thelma Streeter M.D. [address] [place] [phone] Phone: tel: fax: [facility] Referral ID Status Reason Start Date Expiration Date Visits Re quested Visits Authorized [id number] Closed 03/03/2025 09/02/2026 1 1 Scheduling Instructions Please schedule with Dr. Cunningham's first available Reason for Visit * Outpatient (Routine) - Closed Specialty Diagnoses / Procedures Referred By Pastora piedra Referred To Contact Radiation Oncology Diagnoses Malignant Neoplasm Of Cervix (HCC) Thelma Streeter M.D. 200 [place] [address] Phone: tel: fax: [facility] Referral ID Status Reason Start Date Expiration Date Visits Re quested Visits Authorized [id number] Closed 03/03/2025 09/02/2026 1 1 Encounter Details Date Type Department Care Team (Latest Contact Info) Description 03/28/2025 2:49 PM CDT - 03/29/2025 2:03 PM CDT Hospital Encounter Department of Radiation Oncology in [place], [place] [address] [place] [phone] Meme Cunningham M.D. [address] [place] [address] Malignant Neoplasm Of Cervix (HCC) Social History Tobacco Use Types Packs/Day Years Used Date Smoking Tobacco: Never Smokeless Tobacco: Never Alcohol Use Standard Drinks/Week Comments Not Currently 0 (1 standard drink = 0.6 oz pure alcohol) Quit drinkinking in August after pelvic pain started. [facility] Utilities Answer Date Recorded In the past 12 months has th e [employer], gas, oil, or water [employer] threatened to shut off services in your [...] living situation today? 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 01/14/2025 documented as of this encounter Consult Notes * Sarath Funez M.D. - 03/28/2025 3:00 PM CDT RADIATION ONCOLOGY CONSULTATION SUBJECTIVE REQUESTING PROVIDER Thelma Streeter M.D. REASON FOR CONSULT Ms. 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 She completed 45 Gy in 25 fractions of IMRT radiation with concurrent chemoimmunotherapy (weekly carboplatin and Q3 week pembrolizumab) to the cervix and regional lymph nodes by Dr. Streeter in [place], [place] on 03/28/2025. Attending physician: Dr. Cunningham HISTORY OF PRESENT ILLNESS Ms. Alyssa Garcia is a 74 y.o. female from [place], [place] with the following oncologic history: Oncology History Malignant Neoplasm Of Cervix (HCC) 10/08/2024 Critical Imaging Ultrasound pelvis FINDINGS: Partially exophytic right-sided uterine fibroid is present measuring 5.7 x 3.8 x 5.1 cm. Left-sideduterine fibroid is also present measuring 5.0 x 3.2 x 2.9 cm. Uterus measures 8.1 cm in length by 6.5 cm in AP diameter by 7.5 cm in transverse dimension. The endometrial lining is not well visualized and measures approximately 3 millimeters. The ovaries are not visualized. There are no suspicious fluid collections within the cul-de-sac. 10/21/[address] chest abdomen pelvis Impression: Duplicated right renal collecting system with hydroureteronephrosis of both moieties extending to the UVJ. Evaluation is limited due to the lack of intravenous contrast. Dedicated pre and post-contrast hematuria CT recommended. Fibroid uterus including a calcified exophytic fibroid on the left. 01/05/2025 Other Patient presented to local emergency room from lower abdominal pain that has been present for past several months. CT scan and ultrasound completed 2 months prior showed moderate-size uterine fibroid. She had not followed up with OBGYN by the time of this visit. Previous couple of days she reportedvaginal bleeding and decreased urine output which led to emergency room visit. She was found to be in acute renal failure. She was admitted to [facility] and eventually discharged on January 14. While hospitalized she had bilateral nephrostomy tubes placed and workup was completed for possible lower uterine versus cervical mass 01/06/[address] abdomen and pelvis Impression: 1. Interval development of worsening right and new left-sided hydronephrosis with marked perinephric stranding and periureteral stranding as well as thickening and pericystic inflammatory changes of the bladder and central pelvis. Findings are concerning for underlying pyelonephritis changes. Thereis a portion of the lower uterine segment similar to previous exam which has somewhat ill-defined margins for which an underlying cervical or lower uterine mass lesion is difficult to exclude. Consider further evaluation with pelvic sonogram versus pelvic MRI for improved characterization of femalepelvic anatomy and the distal aspects of the ureters. Ultrasound pelvis Impression 1. Large 6 cm right-sided uterine fibroid. 2. Moderately thickened endometrium. In a postmenopausal female endometrial carcinoma would not be excluded. 3. Ovaries could not be visualized. The lower uterine segment also could not be optimally assessed due to patient discomfort. 01/07/2025 Surgery and Procedures Bilateral nephrostomy tube placement 01/07/2025 Surgery and Procedures Colonoscopy demonstrated normal colonic ,mucosa with random biopsies; poor preparation and recommended repeat colonoscopy or Cologaurd in 1 year Upper GI negative 01/10/2025 Critical Imaging MR pelvis FINDINGS: Uterus size: 6.6 x 6.1 x 8.2 centimeters. Normal endometrial thickness measuring 0.3 centimeters. Multiple uterine fibroids with resulting distortion of the endometrium, the largest is along the posterior uterine body measuring 5.1 x 5.3 x 4.7 centimeters. There is a exophytic calcified fibroid along the left posterior uterine wall. Some fibroids demonstrate mild internal T1 hyperintensity, whichmay be related to underlying red degeneration. Cervix: Enhancing large spiculated cervical mass measures 4.7 x 4.2 x 4.1 centimeters. There is no associated diffusion restriction. There [...] the trigone. The mass also extends posteriorly through the mesorectal fascia anteriorly from 11:00 to 2:00, with spiculations extending to the rectum at 12 o`clock. The spiculation is markedly T2 hypointense, and scarring from prior endometriosis implants can also have this appearance. Ovaries: Atrophic ovaries. Bladder: Invasion of the bladder as described above. Bowel: Involvement of the anterior rectal wall as described above. Lymph nodes: No enlarged lymph nodes. Bones: Periarticular cyst along the right hip measuring 2.1 x 0.9 cm 01/13/2025 Biopsy/Pathology Final Diagnosis A) UTERINE CERVIX, BIOPSY: 1. 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 Histologic grade: Moderately differentiated b. Maximum tumor size/depth of invasion: Measurements deferred c. Background high-grade squamous intraepithelial lesion (CIN3) 2. See comment Comment The slides demonstrate an invasive squamous cell carcinoma arising in a background of precursor CIN3, consistent with an HPV associated process. P16 overexpression is confirmatory. The invasive component demonstrates both basaloid and adenoid basal patterns with focal associated calcifications, pat terns of which have no further prognostic relevance in the setting of the described clinical presentation. Histologic measurements are deferred considering the clinical exam findings consistent with higher stage disease than would be measured histologically. On exam under anesthesia, firm tumor palpated [...] vagina (pictures taken). On rectal exam, the tumor was palpable through the rectum but no tumor was palpable along rectal mucosa, no rectovaginal fistula, the rectum felt fixed to the tumor at approximately 10 cm 01/27/2025 Critical Imaging PET-CT IMPRESSION: 1. Irregular cervical mass measuring up to 4.9 cm with heterogeneous moderate FDG uptake representsthe known squamous cell carcinoma, with evidence of disease extension into the uterus to the level of the fundus, and with the mass extending into the upper 1/3 of the vaginal canal. The mass abuts the posterior bladder wall, with bladder wall invasion previously characterized on recent pelvic MRI 01/11/2025. 2. No evidence of FDG avid jody or distant metastatic disease. 02/02/[address] Dr[address] Sarah Coto, [place] [facility]. Discussed treatment options including chemoradiotherapy with immunotherapy followed by brachytherapy. 02/21/2025 - Radiation Therapy Radiation Therapy Treatment Details (Noted on 02/08/2025) Site: Cervix Technique: IMRT Goal: Curative Planned Treatment Start Date: 02/21/2025 INTERVAL HISTORY Ms. Alyssa Garcia confirms the above summary. She has now completed her 25 fraction course of pelvic external beam radiation, and reports overall doing well. She does have some rectal pressure and discomfort following treatment, but this is well managed. She expresses concern regarding discomfort associated with her nephrostomy tubes. She has a appointment in April with Urology for consultation regarding to management. She notes some ongoing back discomfort for which she requests a pad during brachytherapy. Patient has an allergy to Iohexol. Radiation Questions: RADIATION SPECIFIC HISTORY: Current systemic treatment: Weekly Carboplatin and Pembrolizumab every 3 weeks Medical Devices: None Radiation therapy: Yes (45 Gy in 25 fractions to the pelvis external beam radiation therapy completed March 28, 2024) 03/28/2025 10:01 AM Course Summary Plan ID [id number] First treatment 02/21/2025 15:14 CDT Last treatment 03/28/2025 10:01 CDT Fractions treated to date 25 Planned total fractions 25 Dosage given to date cGy 4500 Planned dose in cGy 4500 MEDICAL/SURGICAL HISTORY SOCIAL HISTORY She is a non-smoker. FAMILY HISTORY Cancer-related family history is not on file. OBJECTIVE There were no vitals taken for this visit. Given that patient was seen via a video visit, limited exam was performed ECO GENERAL: Sitting comfortably; in no acute distress. LUNGS: Normal work of breathing. NEURO: Alert and oriented x 3. PSYCH: Appropriate mood and affect. DIAGNOSTICS LABS: Lab Results Component Value Date WBC 6.7 01/18/2025 HGB 10.8 (L) 01/18/2025 HCT 33.2 (L) 01/18/2025 RBC 3.63 (L) 01/18/2025 MCV 91.5 01/18/2025 MCH 29.8 01/18/2025 MCHC 32.5 01/18/2025 RDW 13.2 01/18/2025 MPV 9.9 01/06/2025 Lab Results Component Value Date CREATININE 1.23 (H) 01/14/2025 BUN 25 (H) 01/12/2025 NA 138 01/12/2025 CL 104 01/12/2025 CO2 18 (L) 06/10/2022 GLUCOSE 103 (H) 01/12/2025 CALCIUM 9.2 01/12/2025 RADIOLOGY: I personally reviewed any applicable radiology images and reports PATHOLOGY: I personally reviewed any applicable pathology report ASSESSMENT / PLAN #[id number] HPV associated squamous cell carcinoma of the cervix with bladder and early rectal extensionwith associated bilateral hydronephrosis requiring bilateral nephrostomy tube placement s/p 25 fx EBRT with concurrent chemoimmunotherapy (weekly carboplatin and Q3 week pembrolizumab) Ms. Alyssa Garcia is a 74 y.o. female with a history of locally advanced squamous cell carcinoma of the cervix. Patient was seen via video visit today for a consultation in Radiation Oncology for planned brachytherapy We reviewed the pertinent clinical, radiographic, pathologic features of their disease. She has nowcompleted her 25 fractions of external beam radiation therapy to the pelvis. She is now due to start 5 fractions of HDR brachytherapy on March 30, 2025. We discussed planned brachytherapy treatment with general anesthesia. We will consider a multichannel cylinder with interstitial needles versus tandem and ovoid for radiation delivery. We reviewed process for presenting to clinic the day of brachytherapy procedure and expectations for the proceduredays. We reviewed possible side effects associated with brachytherapy radiation as outlined below. Acute reactions which could occur as a result of the procedure may include some or all of the following: Procedure: Bleeding, pain, infection, anesthesia risk. Radiation: Bladder irritation, burning sensation, blood in the urine, frequent urination, and inability to urinate requiring a catheter to be placed. Rectal irritation, diarrhea, abdominal cramping. Late reactions which could occur as a result of the procedure may include some or all of the following: Damage to bladder causing frequent urination, pain, incontinence, bladder outlet obstruction requiring long-term bladder catheterization, or frequent urinary tract infections, which may require surgery or removal of bladder. Damage to the rectum or bowel The patient asked several questions which were answered to their satisfaction. Our departmental contact information was provided and they were encouraged to contact the Department of Radiation Oncology with further questions or concerns. PLAN Proceed with 5 fractions of HDR brachytherapy Brachytherapy scheduled for 03/30, 04/04, 04/06, 04/11, 04/20 Patient was seen and staffed with Dr. Cunningham. Sarath Funez MD PGY4 Radiation Oncology Pager: [phone] Cosigned by Meme Cunningham M.D. at 03/29/2025 2:03 PM CDT Associated attestation - Meme Cunningham M.D. - 03/29/2025 2:03 PM CDT Ms. Garcia is a 74 y.o. year old female with recently diagnosed Stage BRICE squamous cell carcinoma of the cervix, HPV-associated seen in consultation to discuss the role of radiation. She was seen with Dr. Funez, please see his note for full history and exam details. I personally performed the substantive portion of this service, which was medical decision-making and counseling. She has completed pelvic EBRT (4500 cGy in 25 fractions) in [place] under the care of Dr. Streeter. She received concurrent cisplatin (weekly) and pembrolizumab at [facility]. No history ofIBD or connective tissue disease. No implanted electronic medical devices. Appears well on video. DIAGNOSTICS Personally reviewed and interpreted available imaging and pathology reports. ASSESSMENT/PLAN #1 Stage BRICE squamous cell carcinoma of the cervix, HPV-associated, with bilateral parametrial extension, posterior bladder wall invasion (cystoscopy, MR), probable anterior rectal wall involvement (MR and fixed to rectum at 10:00 on outside EUA) status post bilateral nephrostomy tube placement andpelvic EBRT (4500 cGy in 25 fractions with weekly cisplatin and pembrolizumab q3 week) completed 03/28/25 at [facility] We reviewed her clinical course to date, extent of her local tumor involvement, and treatment received to date. She is scheduled for restaging MR in [place] on 03/29/25 for brachytherapy planning purposes. We discussed the logistics of the brachytherapy procedures. We reviewed that overall acute and late toxicities of radiotherapy are related to both external beam and brachytherapy components of treatment. Specific risks of the brachytherapy procedure itself include but are not limited to anesthetic complications, VTE from prolonged immobilization, bleeding or infection. Additionally, she isat high risk of vesicovaginal and rectovaginal fistula given involvement of the bladder and rectum.We discussed that hydronephrosis may improve with tumor shrinkage but radiotherapy can also cause ureteral stenosis. I recommended evaluation with Urology in [place] for management of her nephrostomy tubes with question of whether they can be internalized with ureteral stents if there is ongoing malignant or radiation- induced ureteral obstruction. This consultation is scheduled for April. All q uestions answered. She verbally consented to proceed with treatment as scheduled, first fraction 03/30/25. She met with Lizet Joiner RN today regarding fasting instructions and procedural preparation. Her son will drive her to [place] for her first treatment. I personally spent 45 minutes in care of the patient today. Time includes both non face to face andface to face patient care. documented in this encounter Plan of Treatment Upcoming Encounters Date Type Department Care Team (Late st Contact Info) Description 04/28/2025 2:00 PM CDT Appointment Department of Radiation Oncology in [place], [place] [address] [place] [phone] Thelma Streeter M.D. [address] [place] [phone] 04/29/2025 10:00 AM CDT Appointment Department of Radiology, [facility], in [place], [place] [address] [place] [phone] Jessie Borden APRN, C.N.P., D.N.P. [address] [place] [address] Scheduled Referrals Name Type Priority Associated Diagnoses Order Schedule Radiation Oncology - Catering Truck Driver consult (clinic) Outpatient Referral Routine Malignant Neoplasm Of Cervix (HCC) Once for 1 Occurrences starting 03/28/2025 until 03/28/2025 documented as of this encounter Visit Diagnoses Diagnosis Malignant Neoplasm Of Cervix (HCC) documented in this encounter
--- OUTSIDE RECORDS SUMMARY | 2025-03-28 15:43 | XMS_ITS | Encounter Summary ---
Author Organization [facility] Address [address] [place] [address] Care Team Providers Care Parking Cashier Name Role Phone Unavailable Primary Care Provider Unavailabl e Reason for Referral * Outpatient (Routine) - Authorized Specialty Diagnoses / Procedures Referred By Pastora piedra Referred To Contact Radiation Oncology Meme Cunningham M.D. [address] [place] [phone] Phone: tel: fax: [facility] Referral ID Status Reason Start Date Expiration Date V isits Requested Visits Authorized [id number] Authorized 03/28/2025 09/27/2026 1 1 Scheduling Instructions Please schedule 03/28 @ 1600 Reason for Visit * Outpatient (Routine) - Authorized Specialty Diagnoses / Procedures Referred By Pastora piedra Referred To Contact Radiation Oncology Meme Cunningham M.D. [address] [place] [phone] Phone: tel: fax: [facility] Referral ID Status Reason Start Date Expiration Date V isits Requested Visits Authorized [id number] Authorized 03/28/2025 09/27/2026 1 1 Encounter Details Date Type Department Care Team (Late st Contact Info) Description 03/28/2025 3:43 PM CDT - 03/28/2025 4:07 PM CDT Hospital Encounter Department of Radiation Oncology in [place], [place] [address] [place] [phone] Meme Cunningham M.D. [address] [place] [phone] Lizet Joiner R.N. [address] [place] [address] Malignant Neoplasm Of Cervix (HCC) (Primary Dx) Social History Tobacco Use Types Packs/Day Years Used Date Smoking Tobacco: Never Smokeless Tobacco: Never Alcohol Use Standard Drinks/Week Comments Not Currently 0 (1 standard drink = 0.6 oz pure alcohol) Quit drinkinking in August after pelvic pain started. [facility] Utilities Answer Date Recorded In the past 12 months has th e [employer], gas, oil, or water company threatened to [...] your living situation today? 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 - 03/28/2025 3:30 PM CDT RN met with Alyssa Garcia via video visit in coordination with Dr. Cunningham's consultation visit to review information prior to upcoming brachytherapy with general anesthesia on 03/30. RN reviewed and updated allergy and medication list. Alyssa is not on any blood thinners or diabetic medications. Reviewed fasting instructions prior to MRI on 03/29. She is aware she will need to fast prior to MRI and that IV gadolinium will be used as well as vaginal gel. Reviewed [id number] About Your IV Sedation with Alyssa. She is aware of fasting time requirement prior to general anesthesia and arrival time of 0600 at [facility] [place]. Her brother plans to accompany her to all visits. She is aware our procedure may last until 1230 and then will need additional time to recover from general anesthesia. She should expect to leave the [place] areaaround 3-4PM. She is agreeable and understandable to all instructions. Rest of consultation per Dr. Cunningham and 's note. documented in this encounter Plan of Treatment Upcoming Encounters Date Type Department Care Team (Late st Contact Info) Description 04/28/2025 2:00 PM CDT Appointment Department of Radiation Oncology in [place], [place] [address] [place] [phone] Thelma Streeter M.D. [address] [place] [phone] 04/29/2025 10:00 AM CDT Appointment Department of Radiology, [facility], in [place], [place] [address] [place] [address] Jessie Borden APRN, C.N.P., D.N.P. [address] [place] [address] Scheduled Referrals Name Type Priority Associated Diagnoses Order Schedule Radiation Oncology nurse visit (clinic) Outpatient Referral Routine Once for 1 Occurrences starting 03/28/2025 until 03/28/2025 documented as of this encounter Visit Diagnoses Diagnosis Malignant Neoplasm Of Cervix (HCC)- Primary documented in this encounter
--- OUTSIDE RECORDS SUMMARY | 2025-03-29 08:44 | XMS_ITS | Encounter Summary ---
Author Organization [facility] Address [address] [place] [address] Care Team Providers Care Glass Bulb Silverer Name Role Phone Unavailable Primary Care Provider Unavailabl e Reason for Referral * MRI/CAT/PET Scan (Routine) - Closed Specialty Diagnoses / Procedures Referred By Pastora piedra Referred To Contact Radiology Diagnoses Malignant Neoplasm Of Cervix (HCC) Procedures MR Gynecologic Pelvis without and with IV Contrast MR Gynecologic Pelvis without and with IV Contrast MR Pelvis without and with IV Contrast Meme Cunningham M.D. [address] [place] [address] Phone: tel: fax: [facility] Region Referral ID Status Reason Start Date Expiration Date Visits Re quested Visits Authorized [id number] Closed 03/03/2025 06/03/2026 1 1 Reason for Visit * MRI/CAT/PET Scan (Routine) - Closed Specialty Diagnoses / Procedures Referred By Pastora piedra Referred To Contact Radiology Diagnoses Malignant Neoplasm Of Cervix (HCC) Procedures MR Gynecologic Pelvis without and with IV Contrast MR Gynecologic Pelvis without and with IV Contrast MR Pelvis without and with IV Contrast Meme Cunningham M.D. [address] [place] [address] Phone: tel: fax: [facility] Region Referral ID Status Reason Start Date Expiration Date Visits Re quested Visits Authorized [id number] Closed 03/03/2025 06/03/2026 1 1 Encounter Details Date Type Department Care Team (Latest Contact Info) Description 03/29/2025 8:44 AM CDT - 03/29/2025 11:59 PM CDT Hospital Encounter Department of Radiology in [place], [place] [address] [place] [phone] Meme Cunningham M.D. [address] [place] [address] Malignant Neoplasm Of Cervix (HCC) Discharge Disposition: Home or Self Care Social History Tobacco Use Types Packs/Day Years Used Date Smoking Tobacco: Never Smokeless Tobacco: Never Alcohol Use Standard Drinks/Week Comments Not Currently 0 (1 standard drink = 0.6 oz pure alcohol) Quit drinkinking in August after pelvic pain started. [facility] Utilities Answer Date Recorded In the past 12 months has th e electric, gas, oil, or water company threatened [...] your living situation today? 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 [address] [place] [phone] 04/29/2025 10:00 AM CDT Appointment Department of Radiology, [facility], in [place], [place] [address] [place] [address] Jessie Borden APRN, C.N.P., D.N.P. [address] [place] [phone] documented as of this encounter Procedures Procedure Name Priority Date/Time Associated Diagnosis Comments MR GYNECOLOGIC PELVIS WITHOUT AND WITH IV CONTRAST RAD - Routine (most inpatients and all outpatients) 03/29/2025 10:47 AM CDT Malignant Neoplasm Of Cervix (HCC) documented in this encounter Results * MR Gynecologic Pelvis without and with IV Contrast (03/29/2025 10:47 AM CDT) Anatomical Region Laterality Modality Pelvis, Abdominal RST LOS, A bdominal ARZ LOS, Abdominal FLA LOS N/A Magnetic Resonance Impressions 03/29/2025 4:39 PM CDT At least partial positive treatment response. Prior imaging from 01/10/2025 not acquired on cervical axis results in suboptimal comparison. There is abnormal tissue in the parametrium bilaterally, right greater than left, with scattered areas of intermediate signal intensity on T2-weighted imaging which may represent residual tumor, however there is no significant diffusion restriction or early contrast enhancement to suggest significant residual/viable tumor. Of note, this tumor did not show significant diffusion restriction on pretreatment imaging. Posttreatment changes/necrosis in the posterior bladder wall as well as the posterior upper vagina. There is no definite tumor involvement of the anterior rectum. No abnormal lymph nodes are identified. Narrative 03/29/2025 4:39 PM CDT EXAM: MR GYNECOLOGIC PELVIS WITHOUT AND WITH IV CONTRAST COMPARISON:Pelvic MRI 01/10/2025 at the outside institution. FINDINGS: Findings suggest positive treatment response. There is partial return of normal T2 hypointense signal of the cervical stroma as manifested on the coronal series 9 image #18. There is intermediate signal tissue on T2-weighted images in the parametrium right greater than left. On 9/18, this measures 2.7 x 2.4 cm and on left, this measures 1.9 x 2.0 cm. This likely represents a combination of scarring and residual tumor. This has decreased in extent from 01/10/2025 examination. There is no definite suspicious diffusion restriction to suggest significant residual/fibrotumor, however this tumor was not significantly diffusion restricted on pretreatment imaging from 01/10/2025. The postcontrast imaging, there is no definite early enhancement of this parametrial tissue also suggesting against significant residual viable tumor. There is persistent intermediate signal intensity on the posterior bladder wall, however these areas demonstrate nonenhancement/necrosis, consistent with posttreatment change, for example series 18 image #30. Similarly, there is cystic change/necrosis posterior aspect of the upper vagina, for example series 18 image #26. There is no definite involvement of the anterior rectum on this examination. The uterus is fibroid. There is multifocal distortion of the endometrial canal which is not thickened. Again seen is a partially calcified hemorrhagic lesion left posterior uterus, likely a pedunculated degenerating fibroid. The ovaries appear atrophic. The bones demonstrate no suspicious lesion as visualized. There is no evidence of pelvic adenopathy. Procedure Note Misael Hensley M.D. - 03/29/2025 EXAM: MR GYNECOLOGIC PELVIS WITHOUT AND WITH IV CONTRAST COMPARISON:Pelvic MRI 01/10/2025 at the outside institution. FINDINGS: Findings suggest positive treatment response. There is partial return of normal T2 hypointense signal of the cervicalstroma as manifested on the coronal series 9 image #18. There is intermediate signal tissue on T2-weighted images in theparametrium right greater than left. On 06/09, this measures 2.7 x 2.4 cmand on left, this measures 1.9 x 2.0 cm. This likely represents acombination of scarring and residual tumor. This has decreased in extent from 01/10/2025 examination. There is no definitesuspicious diffusion restriction to suggest significantresidual/fibrotumor, however this tumor was not significantly diffusionrestricted on pretreatment imaging from 01/10/2025. The postcontrast imaging, there is no definite early enhancement of thisparametrial tissue also suggesting against significant residual viabletumor. There is persistent intermediate signal intensity on the posterior bladderwall, however these areas demonstrate nonenhancement/necrosis, consistentwith posttreatment change, for example series 18 image #30. Similarly, there is cystic change/necrosis posterior aspect of the uppervagina, for example series 18 image #26. There is no definite involvement of the anterior rectum on thisexamination. The uterus is fibroid. There is multifocal distortion of the endometrialcanal which is not thickened. Again seen is a partially calcifiedhemorrhagic lesion left posterior uterus, likely a pedunculateddegenerating fibroid. The ovaries appear atrophic. The bones demonstrate no suspicious lesion as visualized. There is noevidence of pelvic adenopathy. IMPRESSION: At least partial positive treatment response. Prior imaging from 01/10/2025not acquired on cervical axis results in suboptimal comparison. There isabnormal tissue in the parametrium bilaterally, right greater than left,with scattered areas of intermediate signal intensity on T2-weighted imaging which may representresidual tumor, however there is no significant diffusion restriction orearly contrast enhancement to suggest significant residual/viable tumor.Of note, this tumor did not show significant diffusion restriction on pretreatment imaging. Posttreatmentchanges/necrosis in the posterior bladder wall as well as the posteriorupper vagina. There is no definite tumor involvement of the anteriorrectum. No abnormal lymph nodes are identified. Meme CHAUDHARY MRI PROCEDURES Final Re sult documented in this encounter Visit Diagnoses Diagnosis Malignant Neoplasm Of Cervix (HCC) documented in this encounter Administered Medications Inactive Administered Medications - up to 3 most recent administrations Medication Order MAR Action Action Date Dose Rate Site gadobutrol injection 0.5-15 mL (Gadavist) 0.5-15 mL, intravenous, Once in imaging, contrast, Starting on Fri03/29/25 at 1041, For 1 dose, Dose per Radiant Medication Guidelines Intrathecal doses greater than 0.25 mL not recommended. Given 03/29/2025 10:47 AM CDT 7 mL glucagon injection 1 mg (GlucaGen) 1 mg, subcutaneous, Once, On Fri03/29/25 at 1100, For 1 dose Given 03/29/2025 10:47 AM CDT 1 mg Left Upper Arm (Back) sodium chloride 0.9 % injection 1-250 mL 1-250 mL, intravenous, Once in imaging, line care, Starting on Fri03/29/25 at 1041, For 1 dose Given 03/29/2025 10:48 AM CDT 100 mL documented in this encounter
--- OUTSIDE RECORDS SUMMARY | 2025-03-29 11:00 | XMS_ITS | Encounter Summary ---
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) Procedures Perform central assembly line leader: Flush port(s) Gris Huddleston APRN [address] [place] [address] Phone: tel: fax: [facility] Region Referral ID Status Reason Start Date Expiration Date Visits Re quested Visits Authorized [id number] Closed 03/29/2025 06/29/2026 1 1 Encounter Details Date Type Department Care Team (Late st Contact Info) Description 03/29/2025 11:00 AM CDT Infusion Department of Infusion Therapy in [place], [place] [address] [place] [phone] Gris Huddleston [employer] [address] [place] [phone] Malignant Neoplasm Of Bone Primary (HCC); 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 [facility] Utilities Answer Date Recorded In [...] your living situation today? 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 [address] [place] [address] 04/29/2025 10:00 AM CDT Appointment Department of Radiology, [facility], in [place], [place] [address] [place] [address] Jessie Borden APRN, C.N.P., D.N.P. 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 5 mL (500 units) of Heparin 100 units/mL to each port/lumen. When IVAD not accessed or infusing: When no infusion to maintain patency flush every 28 days following NaCL flush. 5 mL (500 units) of Heparin 100 units/mL to each port/lumen.Indications:Maligna nt Neoplasm Of Bone Primary (HCC),Malignant Neoplasm Of Cervix (HCC) Given 03/29/2025 11:22 AM CDT 500 Units sodium chloride 0.9 % injection 10-20 mL 10-20 mL, intra-catheter, As needed, line care, Starting on Fri03/29/25 at 1122, When IVAD accessed and infusing: Flush prior to and following infusion, between multiple consecutive infusions. 10 mL to each port/lumen.Indications:Maligna nt Neoplasm Of Bone Primary (HCC),Malignant Neoplasm Of Cervix (HCC) Given 03/29/2025 11:22 AM CDT 10 mL documented in this encounter
--- OUTSIDE RECORDS SUMMARY | 2025-03-30 05:48 | XMS_ITS | Encounter Summary ---
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 [address] [place] [phone] Phone: tel: fax: [facility] Referral ID Status Reason Start Date Expiration Date V isits Requested Visits Authorized [id number] Authorized 03/30/2025 06/30/2026 4 4 * Radiation Therapy (Routine) - Authorized Specialty Diagnoses / Procedures Referred By Contac t Referred To Contact Diagnoses Malignant Neoplasm Of Cervix (HCC) Procedures Brachytherapy HDR Meme Cunningham M.D. [address] [place] [phone] Phone: tel: fax: [facility] Referral ID Status Reason Start Date Expiration Date V isits Requested Visits Authorized [id number] Authorized 03/03/2025 06/03/2026 5 5 Reason for Visit * Radiation Therapy (Routine) - Authorized Specialty Diagnoses / Procedures Referred By Contac t Referred To Contact Diagnoses Malignant Neoplasm Of Cervix (HCC) Procedures Brachytherapy HDR Meme Cunningham M.D. [address] [place] [phone] Phone: tel: fax: [facility] Referral ID Status Reason Start Date Expiration Date V isits Requested Visits Authorized [id number] Authorized 03/03/2025 06/03/2026 5 5 Encounter Details Date Type Department Care Team (Latest Contact Info) Description 03/30/2025 5:48 AM CDT - 03/31/2025 9:10 AM CDT Hospital Encounter Department of Radiation Oncology in [place], [place] [address] [place] [address] Meme Cunningham M.D. 200 [place] [phone] Malignant Neoplasm Of Cervix (HCC) (Primary Dx) Discharge Disposition: Home or Self Care Social History Tobacco Use Types Packs/Day Years Used Date Smoking Tobacco: Never Smokeless Tobacco: Never Alcohol Use Standard Drinks/Week Comments Not Currently 0 (1 standard drink = 0.6 oz pure alcohol) Quit drinkinking in August after pelvic pain started. [facility] Utilities Answer Date Recorded In the past 12 months has [employer] electric, gas, oil, or water company threatened [...] your living situation today? 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 Gender Identity Female 03/05/2025 6:51 AM CDT Sexual Orientation Straight 03/05/2025 6: 51 AM CDT documented as of this encounter Last Filed Vital Signs Vital Sign Reading Time Taken Comments Blood Pressure 125/63 03/30/2025 3:10 PM CDT Pulse 72 03/30/2025 3:10 PM CDT Temperature 36.4 C (97.5 F) 03/30/2025 3:10 PM CDT Respiratory Rate 15 03/30/2025 2:30 PM CDT Oxygen Saturation 100% 03/30/2025 3:10 PM CDT Inhaled Oxygen Concentration - - Weight 66.7 kg (147 lb 0.8 oz) 03/30/2025 6:26 A M CDT Height 163 cm (5' 4.17) 03/30/2025 6:26 AM CDT Body Mass Index 25.1 03/30/2025 6:26 AM CDT documented in this encounter Discharge Instructions * Patient Instructions* Vita Noel R.N. - 03/30/2025 7:45 AM CDT You may have some pain in the vagina or pelvis after the procedure. If you are having pain at the treatment site, you can use hdje-cmq-pmkdxaz medications such as Tylenol or ibuprofen as long as yourdoctor has not told you to avoid these medications. You may have some vaginal bleeding or spotting. This is normal and should resolve. If you experience a large amount of bleeding (soaking one pad or more per hour), are passing clots, or have bleedingthat is worsening, please contact your care team immediately or present to the emergency department. You may notice urinary symptoms such as frequency, urgency, or burning with urination. This can be due to the catheter placement during brachytherapy or related to your external beam radiation. Contact your care team for recommendations on how to manage urinary symptoms. Symptoms of concern that should prompt contacting your medical team include: Heavy vaginal bleeding, severe pain not controlled by sjtm-cjw-gtbkvub pain medication, fevers (temperature greater than 100.4 F), chills, significant or worsening swelling, or any unexpected changes from your baseline. Please contact Dr. Cunningham's team with any concerns following your brachytherapy procedure. The team can be reached at [phone] from 8:00 am to 5:00 pm or by contacting the radiation oncologist on-call at [phone] after 5:00 p.m. or on weekends. Please be aware that portal messages are not monitored after hours, over the weekend, or on holidays and should not be used for urgent concerns or q uestions. documented in this encounter Medications at Time [...] needed. 01/14/2025 documented as of this encounter Procedure Notes * Sarath Funez M.D. - 03/30/2025 7:45 AM CDTAssociated Order(s): Brachytherapy HDR Pre-Procedure Diagnose(s): Malignant Neoplasm Of Cervix (HCC) Post-Procedure Diagnose(s): Malignant Neoplasm Of Cervix (HCC) Brachytherapy HDR Performed by: Sarath Funez M.D. Authorized by: Meme Cunningham M.D. Care team members present 1. Meme Cunningham M.D. 3. Sarath Funez M.D. PROCEDURE DETAILS Brachytherapy: Gynecologic brachytherapy Type: high dose rate Applicator(s): [place] cylinder and interstitial needles (tandem) Number of needles: 14 Brachytherapy Fraction Number: 1 Prescription Dose this Fraction: 700 Dose prescribed to: HRCTV Total planned brachytherapy fractions: 4 Total planned brachytherapy dose: 2800 Applicator removed: Yes Imaging: Image-Guidance: CT CONSENT Consent obtained: written (Risks, benefits and alternatives were discussed and a written Informed Consent was obtained. Please see Informed Consent form for further details.) UNIVERSAL PROTOCOL All relevant documentation and testing were reviewed and available. All required blood products, implants, devices and or special equipment were made available as applicable. Pre-procedure verification was conducted and the correct site was marked if required. A fire risk and smoke assessment were done as applicable. The procedural time-out to verify correct patient, correct side/site, and procedure was conducted prior to performing the procedure and confirmed in a procedural pause. PRE PROCEDURE DETAILS Procedure purpose: Therapeutic Appropriate hand hygiene, gown, cap, mask, protective eyewear, sterile gloves, skin preparation, sterile drape, and strict aseptic technique were utilized as applicable for the procedure.: yes Skin preparation: Betadine SEDATION / ANESTHESIA Anesthesia method: anesthesia POST PROCEDURE DETAILS Patient tolerance of procedure: Successful Complications: No apparent complications Post-procedure Survey: Post-procedure survey performed and no residual radioactivity COMMENTS Patient presents for her fraction 1 of 4 brachytherapy fraction. The patient has given informed consent for general anesthesia and for the brachytherapy procedure. Patient was brought to the brachytherapy procedure room and general anesthesia was induced. Please see anesthesia notes for details. She was mobilized in the dorsal lithotomy position. EXAM Pelvis: Tumor palpated on anterior and right lateral aspect of cervix. Mass immobile and fixed. On speculum exam, cervix is friable with poorly visualized os. The perineum was prepped and draped in standard sterile fashion. Pre-procedure verification was conducted and a procedural time out was conducted prior to beginning the procedure. A Soria catheter was inserted into the bladder. The vagina was serially dilated to determine appropriate applicator size. Four free interstitial needles were inserted; one anterior to tumor at 12:00, one lateral left at3:00, one lateral right at 8:00, and one lateral right at 10:00. Uterus was sounded to 10 cm. A 45 degree 8 cm tandem was inserted into the uterus. A 3.5 cm multi-channel interstitial [place] Cylinder was inserted into the vagina over the tandem and secured with a locking nut. Ten interstitial needles in the applicator were advanced into tissue. A CT scan was obtained to verify needle position and adjustments were made as needed. There was noted perforation of the tandem through the lower uterus, which was adjusted but ultimately remained through the cervix and posterior to the uterus. The applicator was secured in position with the attachment device and fixed to the table.No bladder filling was performed. A CT scan was obtained and acceptable applicator position was noted. Targets and organs at risk were segmented and a treatment plan was produced. The patient was treated with the Varian afterloading device and received 700 cGy to the optimized treatment volume. Following the completion of treatment, the applicator and Soria catheter were removed and a survey was done to confirm there was no radioactivity remaining in the patient. Sterile gauze and vaginal packing was used to apply pressure; no bleeding was noted at the completion of the case. She was dismissed in good condition to the care of anesthesia. She will return on 04/04/25 for her next brachytherapy fraction, which will be done with transabdominal ultrasound guidance. Cosigned by Meme Cunningham M.D. at 03/31/2025 9:07 AM CDT Associated attestation - Meme Cunningham M.D. - 03/31/2025 9:07 AM CDT I was present for critical portions and immediately available to furnish services the entire duration. I edited Dr. Funez's note as needed. On exam, the cervix and uterus is fixed posteriorly and to the bilateral pelvic side ge. There is right greater than left parametrial thickening. Cervix is effaced with small amount of tumor visible about the cervical os but cervix is overall very difficult to visualize. Tumor does not involve the vagina. documented in this encounter Plan of Treatment Upcoming Encounters Date Type Department Care Team (Late st Contact Info) Description 04/28/2025 2:00 PM CDT Appointment Department of Radiation Oncology in [place], [place] [address] [place] [address] Thelma Streeter M.D. [address] [place] [address] 04/29/2025 10:00 AM CDT Appointment Department of Radiology, [facility], in [place], [place] [address] [place] [phone] Jessie Borden APRN, C.N.P., D.N.P. [address] [place] [phone] documented as of this encounter Procedures Procedure Name Priority Date/Time Associated Diagnosis Comments BRACHYTHERAPY HDR Routine 03/30/2025 7:4 5 AM CDT Malignant Neoplasm Of Cervix (HCC) TYPE AND SCREEN Routine 03/30/2025 6:26 AM CDT documented in this encounter Results * US Interstitial Radioelement (04/04/2025 9:39 AM CDT) Anatomical Region Laterality Modality Pelvis, Ultrasound RST LOS, Ultrasound ARZ LOS, Vascular Interventional FLA LOS N/A Ultrasound Impressions 04/04/2025 9:40 AM CDT Ultrasound guidance was performed in support of Radiation Oncology's Brachytherapy treatment. 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 - 04/04/2025 EXAM: US INTERSTITIAL RADIOELEMENT IMPRESSION: Ultrasound guidance was performed in support of Radiation Oncology'sBrachytherapy treatment. VALVE ASSEMBLER us Meme Cunningham M.D. IMG US PROCEDURES Final Res ult * Brachytherapy HDR (03/30/2025 7:45 AM CDT) Narrative [facility] - 03/30/2025 7:45 AM CDT Meme Cunningham M.D. 03/31/2025 9:07 AM Brachytherapy HDR Performed by: Sarath Funez M.D. Authorized by: Meme Cunningham M.D. Care team members present 1. Meme Cunningham M.D. 3. Sarath Funez M.D. PROCEDURE DETAILS Brachytherapy: Gynecologic brachytherapy Type: high dose rate Applicator(s): [place] cylinder and interstitial needles (tandem) Number of needles: 14 Brachytherapy Fraction Number: 1 Prescription Dose this Fraction: 700 Dose prescribed to: HRCTV Total planned brachytherapy fractions: 4 Total planned brachytherapy dose: 2800 Applicator removed: Yes Imaging: Image-Guidance: CT CONSENT Consent obtained: written (Risks, benefits and alternatives were discussed and a written Informed Consent was obtained. Please see Informed Consent form for further details.) UNIVERSAL PROTOCOL All relevant documentation and testing were reviewed and available. All required blood products, implants, devices and or special equipment were made available as applicable. Pre-procedure verification was conducted and the correct site was marked if required. A fire risk and smoke assessment were done as applicable. The procedural time-out to verify correct patient, correct side/site, and procedure was conducted prior to performing the procedure and confirmed in a procedural pause. PRE PROCEDURE DETAILS Procedure purpose: Therapeutic Appropriate hand hygiene, gown, cap, mask, protective eyewear, sterile gloves, skin preparation, sterile drape, and strict aseptic technique were utilized as applicable for the procedure.: yes Skin preparation: Betadine SEDATION / ANESTHESIA Anesthesia method: anesthesia POST PROCEDURE DETAILS Patient tolerance of procedure: Successful Complications: No apparent complications Post-procedure Survey: Post-procedure survey performed and no residual radioactivity COMMENTS Patient presents for her fraction 1 of 4 brachytherapy fraction. The patient has given informed consent for general anesthesia and for the brachytherapy procedure. Patient was brought to the brachytherapy procedure room and general anesthesia was induced. Please see anesthesia notes for details. She was mobilized in the dorsal lithotomy position. EXAM Pelvis: Tumor palpated on anterior and right lateral aspect of cervix. Mass immobile and fixed. On speculum exam, cervix is friable with poorly visualized os. The perineum was prepped and draped in standard sterile fashion. Pre-procedure verification was conducted and a procedural time out was conducted prior to beginning the procedure. A Soria catheter was inserted into the bladder. The vagina was serially dilated to determine appropriate applicator size. Four free interstitial needles were inserted; one anterior to tumor at 12:00, one lateral left at 3:00, one lateral right at 8:00, and one lateral right at 10:00. Uterus was sounded to 10 cm. A 45 degree 8 cm tandem was inserted into the uterus. A 3.5 cm multi-channel interstitial [place] Cylinder was inserted into the vagina over the tandem and secured with a locking nut. Ten interstitial needles in the applicator were advanced into tissue. A CT scan was obtained to verify needle position and adjustments were made as needed. There was noted perforation of the tandem through the lower uterus, which was adjusted but ultimately remained through the cervix and posterior to the uterus. The applicator was secured in position with the attachment device and fixed to the table.No bladder filling was performed. A CT scan was obtained and acceptable applicator position was noted. Targets and organs at risk were segmented and a treatment plan was produced. The patient was treated with the Anam Mobile afterloading device and received 700 cGy to the optimized treatment volume. Following the completion of treatment, the applicator and Soria catheter were removed and a survey was done to confirm there was no radioactivity remaining in the patient. Sterile gauze and vaginal packing was used to apply pressure; no bleeding was noted at the completion of the case. She was dismissed in good condition to the care of anesthesia. She will return on 04/04/25 for her next brachytherapy fraction, which will be done with transabdominal ultrasound guidance. Meme Cunningham M.D. RADIATION ONCOLOGY ORDERABL ES Final Result [facility]IS FELIPE [facility]ffield * Type and Screen (with Reflex Antibody ID) (03/30/2025 6:26 AM CDT) ABORh O Pos Not applicable 03/30/2025 7:02 AM CDT ETRM Antibody Screen Negative Negative 03/30/2025 7:13 AM CDT ETRM Type & Screen Expiration 04/02/2025 23:59 03/30/2025 7:02 AM CDT ETRM Testing Location [facility] DEFAULT 03/30/2025 6:28 AM CDT ETRM Blood (Blood, Venous) 03/30/2025 6:26 AM CDT 03/30/2025 6:28 AM CDT Meme Cunningham M.D. LAB BLOOD BANK TEST ORDERAB LES Final Result [facility] [address] [place] [address], [place] ETRM [facility] [address] [place] [address] documented in this encounter Visit Diagnoses Diagnosis Malignant Neoplasm Of Cervix (HCC)- Primary Malignant Neoplasm Of Cervix (HCC) documented in this encounter Administered Medications Inactive Administered Medications - up to 3 most recent administrations Medication Order MAR Action Action Date Dose Rate Site heparin flush 500-1,000 Units 500-1,000 Units, intra-catheter, During hospitalization, line care, Prior to discharge, Starting on Fri03/30/25 at 1432, For 1 dose, Implanted Vascular Access Device (IVAD) Venous Non-Valved: flush 5 mL (500 units) per port/lumen following saline flush prior to discharge. Given 03/30/2025 3:24 PM CDT 500 Units documented in this encounter
--- OUTSIDE RECORDS SUMMARY | 2025-03-30 06:45 | XMS_ITS | Encounter Summary ---
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 [address] [place] [phone] Phone: tel: fax: [facility] Referral ID Status Reason Start Date Expiration Date V isits Requested Visits Authorized [id number] Authorized 03/08/2025 09/07/2026 5 5 Scheduling Instructions 03/30 Shimon, 04/04 Dana, 04/06 Shimon, 04/11 Lizet, 04/13 Shimon Please schedule nurse visit at 7 am and for duration of procedure. Reason for Visit * Outpatient (Routine) - Authorized Specialty Diagnoses / Procedures Referred By Pastora piedra Referred To Contact Radiation Oncology Meme Cunningham M.D. [address] [place] [phone] Phone: tel: fax: [facility] Referral ID Status Reason Start Date Expiration Date V isits Requested Visits Authorized [id number] Authorized 03/08/2025 09/07/2026 5 5 Encounter Details Date Type Department Care Team (Latest Contact Info) Description 03/30/2025 6:45 AM CDT - 03/30/2025 3:08 PM CDT Hospital Encounter Department of Radiation Oncology in [place], [place] [address] [place] [phone] Meme Cunningham M.D. [address] [place] [address] Vita Noel R.N. Malignant Neoplasm Of Cervix (HCC) (Primary Dx) Social History Tobacco Use Types Packs/Day Years Used Date Smoking Tobacco: Never Smokeless Tobacco: Never Alcohol Use Standard Drinks/Week Comments Not Currently 0 (1 standard drink = 0.6 oz pure alcohol) Quit drinkinking in August after pelvic pain started. [facility] Utilities Answer Date Recorded In the past 12 months has e electric, gas, oil, or water company [...] your living situation today? 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 - 03/30/2025 6:45 AM CDT You may have some pain in the vagina or pelvis after the procedure. If you are having pain at the treatment site, you can use rxzh-vre-uztkdao medications such as Tylenol or ibuprofen as [...] vaginal bleeding, severe pain not controlled by wisq-vuq-rnbhbtf pain medication, fevers (temperature greater than 100.4 F), chills, significant or worsening swelling, or any unexpected changes from your baseline. Please contact Dr. Cunningham's team with any concerns following your brachytherapy procedure. The team can be reached at [phone] from 8:00 am to 5:00 pm or by contacting the radiation oncologist on-call at [phone] after 5:00 p.m. or on weekends. Please [...] Appointment Department of Radiation Oncology in [place], [place] [address] [place] [address] Thelma Streeter M.D. [address] [place] [phone] 04/29/2025 10:00 AM CDT Appointment Department of Radiology, [facility], in [place], [place] [address] [place] [phone] Jessie Borden APRN, C.N.P., D.N.P. [address] [place] [phone] Scheduled Referrals Name Type Priority Associated Diagnoses Order Schedule Radiation Oncology nurse visit (clinic) Outpatient Referral Routine Once for 1 Occurrences starting 03/30/2025 until 03/30/2025 documented as of this encounter Visit Diagnoses Diagnosis Malignant Neoplasm Of Cervix (HCC)- Primary documented in this encounter
--- OUTSIDE RECORDS SUMMARY | 2025-03-30 07:42 | XMS_ITS | Encounter Summary ---
Author Organization [facility] Address [address] [place] [id number] Care Team Providers Care Onboarding Specialist Name Role Phone Unavailable Primary Care Provider Unavailabl e Encounter Details Date Type Department Care Team (Late st Contact Info) Description 03/30/2025 7:42 AM CDT Anesthesia Event Department of Radiation Oncology in [place], [place] [address] [place] [phone] Prateek Atwood, HELLEN, MARTA, DNAP [address] [place] [phone] Benedict Ernst APRN, MARTA [address] [place] [phone] Anesthesia Record Procedure Summary Procedure Name Responsible Anesthesiologist Anesthesia Start Time Anesthesia Stop Time BRACHYTHERAPY HDR Prateek Atwood, SANDRA Melgar, MARTA, DNAP 03/30/25 0742 03/30/25 1414 Events Date Time Event Comment 03/30/2025 0742 An Start Machine/Equipme nt Checked Infection Precautions Followed Procedure/Site Verified NPO Status Verified Supine Standard ASA Monitors Applied 0750 An Induction 0755 An Intubation 0756 Turnover to Proceduralist 0838 Anesthesia Time Out 0839 Proc Start 1325 Proc Fin 1346 Turnover to ANE Staff 1348 Airway Removal Criteria Met 1348 Extubation/Airway Removed 1351 an stop data 1414 An End I completed my handoff to the receiving staff during which we 1. Identified the patient 2. Identified the responsible provider 3. Reviewed the pertinent medical history 4. Discussed the surgical course 5. Reviewed intra-op anesthesia management and issues during anesthesia 6. Set expectations for post-procedure period 7. Allowed opportunity for questions and acknowledgement of understanding. Meds Name Total fentanyl injection 50 mcg/mL 100 mcg lidocaine 2% (mg) injection 100 mg rocuronium 10 mg/mL injection 150 mg ondansetron 4 mg/2 mL injection 4 mg sugammadex 100 mg/mL injection 200 mg propofol 10 mg/mL injection 100 mg propofol 10 mg/mL infusion 1,726.2 mg dexAMETHasone (Decadron) injection 4 mg/ mL 8 mg acetaminophen injection 1,000 mg/100 mL (RESTRICTED) 1,000 mg Lactated Ringers Free Drip 1,300 mL * Agents No agents on file. * Blood No blood administrations on file. Lines, Drains, and Airways Type Details Placement Removal Nephrostomy 12/29/24; 1300; [facility]; Left; Back 12/29/24 1300 by Lacie Molina M.SGerber, R.N. Nephrostomy 12/29/24; 1300; [facility]; Right; Back 12/29/24 1300 by Lacie Molina M.SGerber, R.N. Implanted Port Single Lumen 02/15/25; 1200; Permanent (tunneled, implanted); Right; Chest 02/15/25 1200 by Marivel Marcus, RTaylorN. ETT Placement Date: 03/30/25; Placement Time: 0755 (created via procedure documentation); Mask Ventilation: Easy mask; Technique: Video laryngoscopy; Type: Standard ETT; Single Lumen Tube Size: 7 mm; Cuffed: Yes; Location: Oral; Placement Verification: Bilateral breath sounds, Positive ETCO2, Symmetrical chest wall movement; Removal Date: 03/30/25; Removal Time: 1348 03/30/25 0755 by Prateek Atwood APRN, [employer] SALESPERSON, DNAP 03/30/25 1348 by Prateek Atwood APRN, MARTA, DNAP documented in this encounter Social History Tobacco Use Types Packs/Day Years Used Date Smoking Tobacco: Never Smokeless Tobacco: Never Alcohol Use Standard Drinks/Week Comments Not Currently 0 (1 standard drink = 0.6 oz pure alcohol) Quit drinkinking in August after pelvic pain started. [facility] Utilities Answer Date Recorded In the past 12 months has [employer], [employer], or water [employer] threatened to shut off services in your [...] situation today? 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 Responsible Provider: Prateek Atwood APRN, CRNA, DNAP Anesthesia Type: general ASA Status: 3 Anesthesia Type: general Last vitals Vitals Value Taken Time BP 129/75 03/30/25 14:25 Temp 36.7 ??C 03/30/25 13:59 Pulse 73 03/30/25 14:30 Resp 15 03/30/25 14:30 SpO2 96 % 03/30/25 14:30 Please reference Vitals flowsheet for most recent vital signs. Anesthesia Post Evaluation Patient Disposition: dismissal Cardiovascular status: hemodynamics (HR & BP) acceptable Respiratory status: patent airway with spontaneous effort Temperature: normothermic Oxygen requirements: room air Level of consciousness: awake Pain score: pain adequately controlled and/or at baseline Post Op nausea/vomiting: none Hydration status: euvolemic Notable Events No notable events documented. * Anesthesia Procedure Notes - Prateek Atwood APRN, CRNA, DNAP - 03/30/2025 7:55 AM CDTAssociated Order(s): Airway Airway Date/Time: 03/30/2025 7:55 AM Performed by: Prateek Atwood APRN, CRNA, DNAP Authorized by: Prateek Atwood APRN, CRNA, DNAP Patient location during procedure: OR / Procedure Area PROCEDURE DETAILS: Mask difficulty assessment: easy mask Final airway type: video laryngoscope Laryngeal Manipulation: no ETT location: oral VL device: glide scope Tube size: 7 ETT distance at teeth/gum: 22 Oral tube type: standard ETT Cuffed: yes Airway confirmation: bilateral breath sounds, positive ETCO2 and bilateral chest rise Other previous techniques attempted: none PRE PROCEDURE DETAILS: Pre evaluation for airway management: procedure Urgency: elective Preoxygenation: bag valve mask SEDATION / ANESTHESIA Anesthesia method: anesthesia POST PROCEDURE DETAILS: Procedure outcome: successful Notable Events: no complications * Anesthesia Preprocedure Evaluation - Tera Michel M.D., Ph.D. - 03/30/2025 7:42 AM CDT Preprocedure Anesthesia & H&P Assessment Procedure Summary Date/Time: 03/30/25 0745 Scheduled providers: Meme Cunningham M.D. Procedure: BRACHYTHERAPY HDR Diagnosis: Malignant Neoplasm Of Cervix (HCC) [C53.9] Location: Department of Radiation Oncology in [place], [place] Pertinent components of the patient's history including current problem list, medical history, surgical history, family history, social history, medications and allergies were reviewed. Present illness and pre-op diagnosis were confirmed. The planned surgery / procedure was verified with the patient / legal guardian. The patient's general health condition remains unchanged RELEVANT COMORBID CONDITIONS CV (+) Atherosclerotic Heart Disease Of [place] Coronary Artery Without Angina Pectoris (+) Hypertension Essential Primary Genitourinary (+) Malignant Neoplasm Of Cervix (HCC) Musculoskeletal (+) Malignant Neoplasm Of Bone Primary (HCC) Endocrine/Metabolic (+) Pure Hypercholesterolemia OBJECTIVE PHYSICAL EXAMINATION Airway (HEENT) Mallampati: II TM Distance: >3 FB Neck ROM: Full Mouth Opening: >3 cm Upper Lip Bite Test Class: I Cardiovascular Rhythm: Regular Rate: Normal Cardiovascular Assessment: cardiovascular normal Functional Capacity: >4 METS Pulmonary Pulmonary Assessment: Clear General / Constitutional Constitutional Assessment: Normal General State of Health:: healthy appearing and calm ASSESSMENT / PLAN ANESTHESIA PLAN ASA: 3 Anesthesia Plan: general Patient seen and allergies reviewed, anesthesia plan and risks discussed directly with patient /legal guardian or through an educational interpreter. Risks/Benefits/Alternatives of Blood transfusion discussed with patient / legal guardian, includingan opportunity to ask questions and/or decline some or all transfusion therapies. The patient / legal guardian consented to the use of all blood products, as deemed medically necessary Approval to Proceed: approved for anesthesia documented in this encounter Plan of Treatment Upcoming Encounters Date Type Department Care Team (Late st Contact Info) Description 04/28/2025 2:00 PM CDT Appointment Department of Radiation Oncology in [place], [place] [address] [place] [phone] Thelma Streeter M.D. [address] [place] [phone] 04/29/2025 10:00 AM CDT Appointment Department of Radiology, [facility], in [place], [place] [address] [place] [phone] Jessie Borden APRN, C.N.P., D.N.P. [address] [place] [phone] documented as of this encounter Procedures Procedure Name Priority Date/Time Associated Diagnosis Comments LDA ANE ENDOTRACHEAL AIRWAY Routine 03/30/2025 7:55 AM CDT documented in this encounter Results * LDA ANE ENDOTRACHEAL AIRWAY (03/30/2025 7:55 AM CDT) Narrative Prateek Atwood APRN, CRNA, DNAP - 03/30/2025 7:55 AM CDT Prateek Atwood APRN, CRNA, DNAP 03/30/2025 7:56 AM Airway Date/Time: 03/30/2025 7:55 AM Performed by: Prateek Atwood APRN, CRNA, DNAP Authorized by: Prateek Atwood APRN, CRNA, DNAP Patient location during procedure: OR / Procedure Area PROCEDURE DETAILS: Mask difficulty assessment: easy mask Final airway type: video laryngoscope Laryngeal Manipulation: no ETT location: oral VL device: glide scope Tube size: 7 ETT distance at teeth/gum: 22 Oral tube type: standard ETT Cuffed: yes Airway confirmation: bilateral breath sounds, positive ETCO2 and bilateral chest rise Other previous techniques attempted: none PRE PROCEDURE DETAILS: Pre evaluation for airway management: procedure Urgency: elective Preoxygenation: bag valve mask SEDATION / ANESTHESIA Anesthesia method: anesthesia POST PROCEDURE DETAILS: Procedure outcome: successful Notable Events: no complications Prateek Atwood APRN, CRNA, DNAP ANESTHESIA ORDER MIRELA Final Result documented in this encounter Visit Diagnoses Not on filedocumented in this encounter Administered Medications Inactive Administered Medications - up to 3 most recent administrations Medication Order MAR Action Action Date Dose Rate Site acetaminophen injection intravenous, Administer over 15 Minutes, As needed, Starting on Fri03/30/25 at 1327, Anesthesia Intra-op Given 03/30/2025 1:27 PM CDT 1,000 mg dexAMETHasone injection (Decadron) intravenous, As needed, Starting on Fri03/30/25 at 0804, Anesthesia Intra-op Given 03/30/2025 8:04 AM CDT 8 mg fentaNYL injection (Sublimaze) intravenous, As needed, Starting on Fri03/30/25 at 0752, Anesthesia Intra-op Given 03/30/2025 9:43 AM CDT 50 mcg Given 03/30/2025 7:52 AM CDT 50 mcg Lactated Ringer's intravenous, Continuous Infusion: Per Instructions PRN, Starting on Fri03/30/25 at 0745, Anesthesia Intra-op New Bag 03/30/2025 11:12 AM CDT New Bag 03/30/2025 7:45 AM CDT lidocaine (PF) (cardiac) injection intravenous, As needed, Starting on Fri03/30/25 at 0752, Anesthesia Intra-op Given 03/30/2025 7:52 AM CDT 100 mg ondansetron (PF) injection (Zofran) intravenous, As needed, Starting on Fri03/30/25 at 1325, Anesthesia Intra-op Given 03/30/2025 1:25 PM CDT 4 mg propofol 10 mg/mL infusion (Diprivan) intravenous, Continuous Infusion: Per Instructions PRN, Starting on Fri03/30/25 at 0752, Anesthesia Intra-op Rate/Dose Change 03/30/2025 12:59 PM CDT 60 mcg/kg/min 24.012 mL/hr Rate/Dose Change 03/30/2025 12:41 PM CDT 70 mcg/kg/min 28. 014 mL/hr Rate/Dose Change 03/30/2025 8:04 AM CDT 80 mcg/kg/min 32.0 16 mL/hr propofoL injection (Diprivan) intravenous, As needed, Starting on Fri03/30/25 at 0752, Anesthesia Intra-op Given 03/30/2025 7:52 AM CDT 100 mg rocuronium injection (Zemuron) intravenous, As needed, Starting on Fri03/30/25 at 0752, Anesthesia Intra-op Given 03/30/2025 12:14 PM CDT 20 mg Given 03/30/2025 11:08 AM CDT 30 mg Given 03/30/2025 9:43 AM CDT 10 mg sugammadex injection (Bridion) intravenous, As needed, Starting on Fri03/30/25 at 1344, Anesthesia Intra-op Given 03/30/2025 1:44 PM CDT 200 mg documented in this encounter
--- OUTSIDE RECORDS SUMMARY | 2025-04-04 06:16 | XMS_ITS | Encounter Summary ---
Author Organization [facility] Address [address] [place] [address] Care Team Providers Care Instructor Of Education Name Role Phone Unavailable Primary Care Provider Unavailabl e Reason for Referral * Radiation Therapy (Routine) - Authorized Specialty Diagnoses / Procedures Referred By Pastora piedra Referred To Contact Diagnoses Malignant Neoplasm Of Cervix (HCC) Procedures Brachytherapy HDR Meme Cunningham M.D. [address] [place] [phone] Phone: tel: fax: [facility] Referral ID Status Reason Start Date Expiration Date V isits Requested Visits Authorized [id number] Authorized 03/03/2025 06/03/2026 5 5 Reason for Visit * Radiation Therapy (Routine) - Authorized Specialty Diagnoses / Procedures Referred By Pastora piedra Referred To Contact Diagnoses Malignant Neoplasm Of Cervix (HCC) Procedures Brachytherapy HDR Meme Cunningham M.D. 200 [place] [address] Phone: tel: fax: [facility] Referral ID Status Reason Start Date Expiration Date V isits Requested Visits Authorized [id number] Authorized 03/03/2025 06/03/2026 5 5 Encounter Details Date Type Department Care Team (Latest Contact Info) Description 04/04/2025 6:16 AM CDT - 04/05/2025 7:56 AM CDT Hospital Encounter Department of Radiation Oncology in [place], [place] [address] [place] [phone] Meme Cunningham M.D. [address] [place] [phone] Malignant Neoplasm Of Cervix (HCC) Discharge Disposition: Home or Self Care Social History Tobacco Use Types Packs/Day Years Used Date Smoking Tobacco: Never Smokeless Tobacco: Never Alcohol Use Standard Drinks/Week Comments Not Currently 0 (1 standard drink = 0.6 oz pure alcohol) Quit drinkinking in August after pelvic pain started. [facility] Utilities Answer Date Recorded In the past 12 months has e [employer] gas, oil, or water [employer] threatened to shut off services in your [...] your living situation today? 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 Gender Identity Female 03/05/2025 6:51 AM CDT Sexual Orientation Straight 03/05/2025 6: 51 AM CDT documented as of this encounter Last Filed Vital Signs Vital Sign Reading Time Taken Comments Blood Pressure 121/84 04/04/2025 3:40 PM CDT Pulse 75 04/04/2025 3:40 PM CDT Temperature 36.5 C (97.7 F) 04/04/2025 3:40 PM CDT Respiratory Rate 18 04/04/2025 3:40 PM CDT Oxygen Saturation 99% 04/04/2025 3:40 PM CDT Inhaled Oxygen Concentration - - Weight 66.7 kg (147 lb 0.8 oz) 04/04/2025 6:41 A M CDT Height 163 cm (5' 4.17) 04/04/2025 6:41 AM CDT Body Mass Index 25.1 04/04/2025 6:41 AM CDT documented in this encounter Medications at Time [...] Procedure Notes * Sarath Funez M.D. - 04/04/2025 8:30 AM CDTAssociated Order(s): Brachytherapy HDR Pre-Procedure Diagnose(s): Malignant Neoplasm Of Cervix (HCC) Post-Procedure Diagnose(s): Malignant Neoplasm Of Cervix (HCC) Brachytherapy HDR Performed by: Sarath Funez M.D. Authorized by: Meme Cunningham M.D. Care team members present 1. Meme Cunningham M.D. 3. Sarath Funez M.D. PROCEDURE DETAILS Brachytherapy: Gynecologic brachytherapy Type: high dose rate Applicator(s): Agdaagux applicator and interstitial needles Brachytherapy Fraction Number: 2 Prescription Dose this Fraction: 700 cGy Dose prescribed to: HRCTV Total planned brachytherapy fractions: 4 Total planned brachytherapy dose: 2800 cGy Applicator removed: Yes Imaging: Image-Guidance: CT Ultrasound guidance used: Image(s) not saved. CONSENT Consent obtained: written (Risks, benefits and [...] procedural pause. PRE PROCEDURE DETAILS Procedure purpose: Diagnostic and therapeutic Appropriate hand hygiene, gown, cap, mask, protective eyewear, sterile gloves, skin preparation, sterile drape, and strict aseptic technique were utilized as applicable for the procedure.: yes SEDATION / ANESTHESIA Anesthesia method: anesthesia POST PROCEDURE DETAILS Patient tolerance of procedure: Successful Complications: No apparent complications Post-procedure Survey: Post-procedure survey performed and no residual radioactivity COMMENTS Patient presents for her 2 of 4 brachytherapy fraction. The patient has given informed consent for general anesthesia and for the brachytherapy procedure. Patient was brought to the brachytherapy procedure room and general anesthesia was induced. Please see anesthesia notes for details. She was mobilized in the dorsal lithotomy position. Pelvis: On speculum exam, cervix is friable with poorly visualized os. Mild clotting. No active bleeding. The perineum was prepped and draped in standard sterile fashion. Pre-procedure verification was conducted and a procedural time out was conducted prior to beginning the procedure. A Soria catheter was inserted into the bladder. Transabdominal ultrasound placed by associate professor of radiology to visual sound/tandem placement. We were unable to direct tandem into uterine body given significant anterograde position and tethering to the posterior bladder wall. Retrograde bladder filling was attempted to straighten the uterus but was unsuccessful. Four free interstitial needles were inserted left and right lateral to the visible tumor at approximately the 8:00, 10:00, 2:00, 4:00, 8:00, and 10:00 positions. A 45 degree 8 cm tandem was inserted into the uterus. A 3.5 cm multi- channel interstitial [place] Cylinder was inserted into the vagina over the tandem and secured with a locking nut. Eleven interstitial needles in the applicator were advanced into tissue. A CT scan was obtained to verify needle position. The applicator was secured in position with the attachment device and fixed to the table. Packing was placed around the clamp and ring to protect the soft tissues of the thigh and perineum. Bladder was not filled with saline. A CT scan was obtained and good applicator position was noted. Targets and organs [...] radioactivity remaining in the patient. Sterile gauze was used to apply pressure; no bleeding was noted at the completion of the case. She was dismissed in good condition after meeting discharge criteria. She will return on 04/06/2025 for her next brachytherapy fraction. Mari continue with EBRT as scheduled. Cosigned by Meme Cunningham M.D. at 04/04/2025 2:10 PM CDT Associated attestation - Meme Cunningham M.D. - 04/04/2025 2:10 PM CDT I was present for critical portions and immediately available to furnish services the entire duration. I edited documentation as needed. documented in this encounter Plan of Treatment Upcoming Encounters Date Type Department Care Team (Late st Contact Info) Description 04/28/2025 2:00 PM CDT Appointment Department of Radiation Oncology in [place] [id number] [place] [phone] Thelma Streeter M.D. [address] [place] [phone] 04/29/2025 10:00 AM CDT Appointment Department of Radiology, [facility], in [place], [place] [address] [place] [phone] Jessie Borden APRN, C.N.P., D.N.P. [address] [place] [phone] documented as of this encounter Procedures Procedure Name Priority Date/Time Associated Diagnosis Comments BRACHYTHERAPY HDR Routine 04/04/2025 8:3 0 AM CDT Malignant Neoplasm Of Cervix (HCC) documented in this encounter Results * Brachytherapy HDR (04/04/2025 8:30 AM CDT) Narrative LUIS FELIPE HOLDEN - 04/04/2025 8:30 AM CDT Meme Cunningham M.D. 04/04/2025 2:10 PM Brachytherapy HDR Performed by: Sarath Funez M.D. Authorized by: Meme Cunningham M.D. Care team members present 1. Meme Cunningham M.D. 3. Sarath Funez M.D. PROCEDURE DETAILS Brachytherapy: Gynecologic brachytherapy Type: high dose rate Applicator(s): Agdaagux applicator and interstitial needles Brachytherapy Fraction Number: 2 Prescription Dose this Fraction: 700 cGy Dose prescribed to: HRCTV Total planned brachytherapy fractions: 4 Total planned brachytherapy dose: 2800 cGy Applicator removed: Yes Imaging: Image-Guidance: CT Ultrasound guidance used: Image(s) not saved. CONSENT Consent obtained: written (Risks, benefits and [...] procedural pause. PRE PROCEDURE DETAILS Procedure purpose: Diagnostic and therapeutic Appropriate hand hygiene, gown, cap, mask, protective eyewear, sterile gloves, skin preparation, sterile drape, and strict aseptic technique were utilized as applicable for the procedure.: yes SEDATION / ANESTHESIA Anesthesia method: anesthesia POST PROCEDURE DETAILS Patient tolerance of procedure: Successful Complications: No apparent complications Post-procedure Survey: Post-procedure survey performed and no residual radioactivity COMMENTS Patient presents for her 2 of 4 brachytherapy fraction. The patient has given informed consent for general anesthesia and for the brachytherapy procedure. Patient was brought to the brachytherapy procedure room and general anesthesia was induced. Please see anesthesia notes for details. She was mobilized in the dorsal lithotomy position. Pelvis: On speculum exam, cervix is friable with poorly visualized os. Mild clotting. No active bleeding. The perineum was prepped and draped in standard sterile fashion. Pre-procedure verification was conducted and a procedural time out was conducted prior to beginning the procedure. A Soria catheter was inserted into the bladder. Transabdominal ultrasound placed by associate professor of radiology to visual sound/tandem placement. We were unable to direct tandem into uterine body given significant anterograde position and tethering to the posterior bladder wall. Retrograde bladder filling was attempted to straighten the uterus but was unsuccessful. Four free interstitial needles were inserted left and right lateral to the visible tumor at approximately the 8:00, 10:00, 2:00, 4:00, 8:00, and 10:00 positions. A 45 degree 8 cm tandem was inserted into the uterus. A 3.5 cm multi-channel interstitial [place] Cylinder was inserted into the vagina over the tandem and secured with a locking nut. Eleven interstitial needles in the applicator were advanced into tissue. A CT scan was obtained to verify needle position. The applicator was secured in position with the attachment device and fixed to the table. Packing was placed around the clamp and ring to protect the soft tissues of the thigh and perineum. Bladder was not filled with saline. A CT scan was obtained and good applicator position was noted. Targets and organs at risk were segmented and a treatment plan was produced. The patient was treated with the AUTOFACT afterloading device and received 700 cGy to the optimized treatment volume. Following the completion of treatment, the applicator and Soria catheter were removed and a survey was done to confirm there was no radioactivity remaining in the patient. Sterile gauze was used to apply pressure; no bleeding was noted at the completion of the case. She was dismissed in good condition after meeting discharge criteria. She will return on 04/06/2025 for her next brachytherapy fraction. She will continue with EBRT as scheduled. Meme Cunningham M.D. RADIATION ONCOLOGY ORDERABL ES Final Result LUIS FELIPE sheffield documented in this encounter Visit Diagnoses Diagnosis Malignant Neoplasm Of Cervix (HCC) documented in this encounter Administered Medications Inactive Administered Medications - up to 3 most recent administrations Medication Order MAR Action Action Date Dose Rate Site heparin flush 500-1,000 Units 500-1,000 Units, intra-catheter, During hospitalization, line care, Prior to discharge, Starting on Fri04/04/25 at 0639, For 1 dose, Implanted Vascular Access Device (IVAD) Venous Non-Valved: flush 5 mL (500 units) per port/lumen following saline flush prior to discharge. Given 04/04/2025 3:31 PM CDT 500 Units Lactated Ringer's 20 mL/hr, intravenous, Continuous, Starting on Fri04/04/25 at 1415, PACU & Post-Op Continued from OR 04/04/2025 1:56 PM CDT 20 mL/hr 20 mL/hr documented in this encounter
--- OUTSIDE RECORDS SUMMARY | 2025-04-04 07:00 | XMS_ITS | Encounter Summary ---
Author Organization [facility] Address [address] [place] [address] Care Team Providers Care Inspector Clip On Sunglasses Name Role Phone Unavailable Primary Care Provider Unavailabl e Reason for Referral * Outpatient (Routine) - Authorized Specialty Diagnoses / Procedures Referred By Pastora piedra Referred To Contact Radiation Oncology Meme Cunningham M.D. [address] [place] [phone] Phone: tel: fax: [facility] Referral ID Status Reason Start Date Expiration Date V isits Requested Visits Authorized [id number] Authorized 03/08/2025 09/07/2026 5 5 Scheduling Instructions 03/30 Shimon, 04/04 Dana, 04/06 Shimon, 04/11 Lizet, 04/13 Shimon Please schedule nurse visit at 7 am and for duration of procedure. Reason for Visit * Outpatient (Routine) - Authorized Specialty Diagnoses / Procedures Referred By Pastora piedra Referred To Contact Radiation Oncology Meme Cunningham M.D. [address] [place] [phone] Phone: tel: fax: [facility] Referral ID Status Reason Start Date Expiration Date V isits Requested Visits Authorized [id number] Authorized 03/08/2025 09/07/2026 5 5 Encounter Details Date Type Department Care Team (Late st Contact Info) Description 04/04/2025 7:00 AM CDT Hospital Encounter Department of Radiation Oncology in [place], [place] [address] [place] [phone] Meme Cunningham M.D. 200 [place] [phone] Dana Guerrero R.N. 200 [place] [phone] Social History Tobacco Use Types Packs/Day Years Used Date Smoking Tobacco: Never Smokeless Tobacco: Never Alcohol Use Standard Drinks/Week Comments Not Currently 0 (1 standard drink = 0.6 oz pure alcohol) Quit drinkinking in August after pelvic pain started. [facility] Utilities Answer Date Recorded In the past [...] your living situation today? 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 - 04/04/2025 7:00 AM CDT You may have some pain in the vagina or pelvis after the procedure. If you are having pain at the treatment site, you can use qccc-[id number] medications such as Tylenol or ibuprofen as [...] vaginal bleeding, severe pain not controlled by [id number]-hkj-[id number] pain medication, fevers (temperature greater than 100.4 F), chills, significant or worsening swelling, or any unexpected changes from your baseline. Please contact Dr. Cunningham's team with any concerns following your brachytherapy procedure. The team can be reached at [phone] from 8:00 am to 5:00 pm or by contacting the radiation oncologist on-call at [phone] after 5:00 p.m. or on weekends. Please be aware that portal messages are not monitored after hours, over the weekend, or on holidays and should not be used for urgent concerns or q uestions. documented in this encounter Plan of Treatment Upcoming Encounters Date Type Department Care Team (Late Contact Info) Description 04/28/2025 2:00 PM CDT Appointment Department of Radiation Oncology in [place], [place] [address] [place] [phone] Thelma Streeter M.D. [address] [place] [phone] 04/29/2025 10:00 AM CDT Appointment Department of Radiology, [facility], in [place], [place] [address] [place] [phone] Jessie Borden APRN, C.N.P., D.N.P. [address] [place] [address] [place] [phone] Scheduled Referrals Name Type Priority Associated Diagnoses Order Schedule Radiation Oncology nurse visit (clinic) Outpatient Referral Routine Once for 1 Occurrences starting 04/04/2025 until 04/04/2025 documented as of this encounter Visit Diagnoses Not on filedocumented in this encounter
--- OUTSIDE RECORDS SUMMARY | 2025-04-04 07:59 | XMS_ITS | Encounter Summary ---
Author Organization [facility] Address [address] [place] [address] Care Team Providers Care Front End Drupal Developer Name Role Phone Unavailable Primary Care Provider Unavailabl e Reason for Referral * Outpatient (Routine) - Authorized Specialty Diagnoses / Procedures Referred By Contac t Referred To Contact Diagnoses Malignant Neoplasm Of Cervix (HCC) Procedures US Interstitial Radioelement US Prostate Interstitial Radioelement Meme Cunningham M.D. [address] [place] [phone] Phone: tel: fax: [facility] Referral ID Status Reason Start Date Expiration Date V isits Requested Visits Authorized [id number] Authorized 03/30/2025 06/30/2026 4 4 Reason for Visit * Outpatient (Routine) - Authorized Specialty Diagnoses / Procedures Referred By Contac t Referred To Contact Diagnoses Malignant Neoplasm Of Cervix (HCC) Procedures US Interstitial Radioelement US Prostate Interstitial Radioelement Meme Cunningham M.D. 200 [place] [address] Phone: tel: fax: [facility] Referral ID Status Reason Start Date Expiration Date V isits Requested Visits Authorized [id number] Authorized 03/30/2025 06/30/2026 4 4 Encounter Details Date Type Department Care Team (Latest Contact Info) Description 04/04/2025 7:59 AM CDT - 04/04/2025 11:59 PM CDT Hospital Encounter Department of Rad[facility], [facility], in [place], [place] [address] [place] [phone] Meme Cunningham M.D. [address] [place] [phone] Malignant Neoplasm Of Cervix (HCC) Discharge Disposition: Home or Self Care Social History Tobacco Use Types Packs/Day Years Used Date Smoking Tobacco: Never Smokeless Tobacco: Never Alcohol Use Standard Drinks/Week Comments Not Currently 0 (1 standard drink = 0.6 oz pure alcohol) Quit drinkinking in August after pelvic pain started. [facility] Utilities Answer Date Recorded In the [...] your living situation today? 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 [address] [place] [phone] 04/29/2025 10:00 AM CDT Appointment Department of Radiology, [facility] in [place], [place] [address] [place] [phone] Jessie Borden APRN, C.N.P., D.N.P. [address] [place] [phone] documented as of this encounter Procedures Procedure Name Priority Date/Time Associated Diagnosis Comments US INTERSTITIAL RADIOELEMENT RAD - Routine (most inpatients and all outpatients) 04/04/2025 9:39 AM CDT Malignant Neoplasm Of Cervix (HCC) documented in this encounter Results * US Interstitial Radioelement (04/04/2025 9:39 AM CDT) Anatomical Region Laterality Modality Pelvis, Ultrasound RST LOS, Ultrasound ARZ LOS, Vascular Interventional FLA LOS N/A Ultrasound Impressions 04/04/2025 9:40 AM CDT Ultrasound guidance was performed in support of Radiation Oncology's Brachytherapy treatment. SPIN TANK TENDER Narrative 04/04/2025 9:40 AM CDT EXAM: US INTERSTITIAL RADIOELEMENT Procedure Note Ben Mccormack M.D. - 04/04/2025 EXAM: US INTERSTITIAL RADIOELEMENT IMPRESSION: Ultrasound guidance was performed in support of Radiation Oncology'sBrachytherapy treatment. SPIN TANK TENDER us Meme Cunningham M.D. IMG US PROCEDURES Final Res ult documented in this encounter Visit Diagnoses Diagnosis Malignant Neoplasm Of Cervix (HCC) documented in this encounter
--- OUTSIDE RECORDS SUMMARY | 2025-04-04 08:22 | XMS_ITS | Encounter Summary ---
Author Organization [facility] Address [address] [place] [address] Care Team Providers Care Automobile Drivers Name Role Phone Unavailable Primary Care Provider Unavailabl e Encounter Details Date Type Department Care Team ([facility] Contact Info) Description 04/04/2025 8:22 AM CDT Anesthesia Event Department of Radiation Oncology in [place], [place] [address] [place] [phone] Jennifer Lee APRN, MARTA, D.N.P. [address] [place] [phone] Anesthesia Record Procedure Summary Procedure Name Responsible Anesthesiologist Anesthesia Start Time Anesthesia Stop Time BRACHYTHERAPY HDR Jennifer Lee APRN, MARTA, D.N.P. 04/04/25 0822 04/04/25 1354 Events Date Time Event Comment 04/04/2025 0822 An Start Machine/Equipme nt Checked Infection Precautions Followed Procedure/Site Verified NPO Status Verified Supine Standard ASA Monitors Applied 0825 An Induction 0830 An Intubation 0833 Turnover to Proceduralist 0848 Anesthesia Time Out 0850 Proc Start 1333 Proc Fin 1335 Turnover to ANE Staff 1335 Airway Removal Criteria Met 1335 Extubation/Airway Removed 1340 an stop data 1354 An End I completed my handoff to [...] mcg/mL 100 mcg lidocaine 2% (mg) injection 60 mg rocuronium 10 mg/mL injection 150 mg ondansetron 4 mg/2 mL injection 4 mg sugammadex 100 mg/mL injection 200 mg propofol 10 mg/mL injection 150 mg propofol 10 mg/mL infusion 2,027.68 mg acetaminophen injection 1,000 mg/100 mL (RESTRICTED) 1,000 mg dexAMETHasone (Decadron) injection 4 mg/ mL 8 mg ketamine 10 mg/mL injection 20 mg Lactated Ringers Free Drip 1,300 mL * Agents No agents on file. * Blood No blood administrations on file. Lines, Drains, and Airways Type Details Placement Removal Nephrostomy 12/29/24; 1300; [facility]; Left; Back 12/29/24 1300 by Lacie Molina M.SGerber, R.N. Nephrostomy 12/29/24; 1300; [facility]; Right; Back 12/29/24 1300 by Lacie Molina M.S.Wale, R.N. Implanted Port Single Lumen 02/15/25; 1200; Permanent (tunneled, implanted); Right; Chest 02/15/25 1200 by Marivel Marcus RTaylorNTaylor Nephrostomy (present on admit to pacu. Per patient has had since the other neph tubes); Right; Back 03/30/25 1442 by Adelaida Rico R.N., C.M.S.R.N. ETT Placement Date: 04/04/25; Placement Time: 0830 (created via procedure documentation); Mask Ventilation: Easy mask; Technique: Video laryngoscopy; Type: Standard ETT; Single Lumen Tube Size: 7 mm; Cuffed: Yes; Location: Oral; Insertion Attempts: 1; Placement Verification: Bilateral breath sounds, Positive ETCO2, Symmetrical chest wall movement; Removal Date: 04/04/25; Removal Time: 1335 04/04/25 0830 by Jennifer Lee APRN, MARTA, D.N.P. 04/04/25 1335 by Jennifer Lee APRN, MARTA, D.N.P. documented in this encounter Social History Tobacco Use Types Packs/Day Years Used Date Smoking Tobacco: Never Smokeless Tobacco: Never Alcohol Use Standard Drinks/Week Comments Not Currently 0 (1 standard drink = 0.6 oz pure alcohol) Quit drinkinking in August after pelvic pain started. [facility] Utilities Answer Date Recorded In the past 12 months has th [employer], oil, or water [employer] threatened to shut off services in your [...] your living situation today? 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 - 04/04/2025 8:42 AM CDTAssociated Order(s): Airway Airway Date/Time: 04/04/2025 8:30 AM Performed by: Jennifer Lee APRN, CRNA, D.N.P. Authorized by: Jennifer Lee APRN, CRNA, D.N.P. Patient location during procedure: OR / Procedure Area PROCEDURE DETAILS: Mask difficulty assessment: easy mask Final airway type: video laryngoscope Laryngeal Manipulation: no ETT location: oral VL device: glide scope [place] scope blade size: 3 Tube size: 7 ETT distance at teeth/gum: 21 Oral tube type: standard ETT Cuffed: yes Number of attempt to successful placement: 1 Airway confirmation: bilateral breath sounds, positive ETCO2 and bilateral chest rise Other previous techniques attempted: none PRE PROCEDURE DETAILS: Pre evaluation for airway management: procedure Urgency: elective Preop assessment of probable difficulty: no difficulty anticipated Preoxygenation: bag valve mask SEDATION / ANESTHESIA Anesthesia method: anesthesia POST PROCEDURE DETAILS: Procedure outcome: successful Notable Events: no complications * Anesthesia Preprocedure Evaluation - Jose Brito M.D. - 04/04/2025 8:03 AM CDT Preprocedure Anesthesia & H&P Assessment Procedure Summary Date/Time: 04/04/25 0830 Scheduled providers: Meme Cunningham M.D. Procedure: BRACHYTHERAPY HDR Diagnosis: Malignant Neoplasm Of Cervix (HCC) [C53.9] Location: Department of Radiation Oncology in [place], [place] Pertinent components of the patient's history including current problem list, medical history, surgical history, family history, social history, medications and allergies were reviewed. Present illness and pre-op diagnosis were confirmed. The planned surgery / procedure was verified with the patient / legal guardian. The patient's general health condition remains unchanged RELEVANT COMORBID CONDITIONS CV (+) Atherosclerotic Heart Disease Of [place] Coronary Artery Without Angina Pectoris (+) Hypertension Essential Primary OBJECTIVE PHYSICAL EXAMINATION Airway (HEENT) Mallampati: II Cardiovascular Rhythm: Regular Functional Capacity: >4 METS Pulmonary Pulmonary Assessment: Clear General / Constitutional Constitutional Assessment: Normal ASSESSMENT / PLAN ANESTHESIA PLAN ASA: 3 Anesthesia Plan: general Patient seen and allergies reviewed, anesthesia plan and risks discussed directly with patient /legal guardian or through an assessment consultant. Risks/Benefits/Alternatives of Blood transfusion discussed with patient / legal guardian, includingan opportunity to ask questions and/or decline some or all transfusion therapies. The patient / legal guardian consented to the use of all blood products, as deemed medically necessary Approval to Proceed: approved for anesthesia * Anesthesia Postprocedure Evaluation - Jennifer Lee APRN, CRNA, D.N.P. - 04/04/2025 1:59 AM CDT Patient: Alyssa Garcia Procedure Summary Date: 04/04/25 Room / Location: Department of Radiation Oncology in [place], [place] Anesthesia Start: 821 Anesthesia Stop: 1353 Procedure: BRACHYTHERAPY HDR Diagnosis: Malignant Neoplasm Of Cervix (HCC) Scheduled Providers: Meme Cunningham M.D. Responsible Provider: Jennifer Lee APRN, CRNA, D.N.P. Anesthesia Type: general ASA Status: 3 Anesthesia Type: general Last vitals Vitals Value Taken Time BP 148/69 04/04/25 14:30 Temp 36 ??C 04/04/25 14:30 Pulse 64 04/04/25 14:30 Resp 12 04/04/25 14:30 SpO2 100 % 04/04/25 14:30 Please reference Vitals flowsheet for most recent vital signs. Anesthesia Post Evaluation Patient Disposition: dismissal Cardiovascular status: hemodynamics (HR & BP) acceptable Respiratory status: patent airway with spontaneous effort Temperature: normothermic Oxygen requirements: room air Level of consciousness: awake Pain score: pain adequately controlled and/or at baseline Post Op nausea/vomiting: none Hydration status: euvolemic Notable Events No notable events documented. documented in this encounter Plan of Treatment Upcoming Encounters Date Type Department Care Team (Late st Contact Info) Description 04/28/2025 2:00 PM CDT Appointment Department of Radiation Oncology in [place], [place] [address] [place] [phone] Thelma Streeter M.D. [address] [place] [phone] 04/29/2025 10:00 AM CDT Appointment Department of Radiology, [facility], in [place], [place] [address] [place] [phone] Jessie Borden APRN, C.N.P., D.N.P. [address] [place] [phone] documented as of this encounter Procedures Procedure Name Priority Date/Time Associated Diagnosis Comments LDA ANE ENDOTRACHEAL AIRWAY Routine 04/04/2025 8:30 AM CDT documented in this encounter Results * LDA ANE ENDOTRACHEAL AIRWAY (04/04/2025 8:30 AM CDT) Narrative Jennifer Lee APRN, CRNA, D.N.P. - 04/04/2025 8:30 AM CDT Jennifer Lee APRN, CRNA, D.N.P. 04/04/2025 9:08 AM Airway Date/Time: 04/04/2025 8:30 AM Performed by: Jennifer Lee APRN, CRNA, D.N.P. Authorized by: Jennifer Lee APRN, CRNA, [place]sm[place].N.P. Patient location during procedure: OR / Procedure Area PROCEDURE DETAILS: Mask difficulty assessment: easy mask Final airway type: video laryngoscope Laryngeal Manipulation: no ETT location: oral VL device: glide scope [place] scope blade size: 3 Tube size: 7 ETT distance at teeth/gum: 21 Oral tube type: standard ETT Cuffed: yes Number of attempt to successful placement: 1 Airway confirmation: bilateral breath sounds, positive ETCO2 and bilateral chest rise Other previous techniques attempted: none PRE PROCEDURE DETAILS: Pre evaluation for airway management: procedure Urgency: elective Preop assessment of probable difficulty: no difficulty anticipated Preoxygenation: bag valve mask SEDATION / ANESTHESIA Anesthesia method: anesthesia POST PROCEDURE DETAILS: Procedure outcome: successful Notable Events: no complications Jennifer Lee APRN, CRNA, D.N.P. ANESTHESIA ORDERABLES Final Result documented in this encounter Visit Diagnoses Not on filedocumented in this encounter Administered Medications Inactive Administered Medications - up to 3 most recent administrations Medication Order MAR Action Action Date Dose Rate Site acetaminophen injection intravenous, Administer over 15 Minutes, As needed, Starting on Fri04/04/25 at 1313, Anesthesia Intra-op Given 04/04/2025 1:13 PM CDT 1,000 mg dexAMETHasone injection (Decadron) intravenous, As needed, Starting on Fri04/04/25 at 0833, Anesthesia Intra-op Given 04/04/2025 8:33 AM CDT 8 mg fentaNYL injection (Sublimaze) intravenous, As needed, Starting on Fri04/04/25 at 0825, Anesthesia Intra-op Given 04/04/2025 10:54 AM CDT 25 mcg Given 04/04/2025 9:14 AM CDT 50 mcg Given 04/04/2025 8:25 AM CDT 25 mcg ketamine injection (Ketalar) intravenous, As needed, Starting on Fri04/04/25 at 0842, Anesthesia Intra-op Given 04/04/2025 8:42 AM CDT 20 mg Lactated Ringer's intravenous, Continuous Infusion: Per Instructions PRN, Starting on Fri04/04/25 at 0822, Anesthesia Intra-op New Bag 04/04/2025 12:14 PM CDT New Bag 04/04/2025 8:22 AM CDT lidocaine (PF) (cardiac) injection intravenous, As needed, Starting on Fri04/04/25 at 0825, Anesthesia Intra-op Given 04/04/2025 8:25 AM CDT 60 mg ondansetron (PF) injection (Zofran) intravenous, As needed, Starting on Fri04/04/25 at 1313, Anesthesia Intra-op Given 04/04/2025 1:13 PM CDT 4 mg propofol 10 mg/mL infusion (Diprivan) intravenous, Continuous Infusion: Per Instructions PRN, Starting on Fri04/04/25 at 0828, Anesthesia Intra-op Rate/Dose Change 04/04/2025 1:04 PM CDT 75 mcg/kg/min 30.015 mL/hr Rate/Dose Change 04/04/2025 10:38 AM CDT 100 mcg/kg/min 40 .02 mL/hr Rate/Dose Change 04/04/2025 9:22 AM CDT 125 mcg/kg/min 50. 025 mL/hr propofoL injection (Diprivan) intravenous, As needed, Starting on Fri04/04/25 at 0827, Anesthesia Intra-op Given 04/04/2025 8:27 AM CDT 150 mg rocuronium injection (Zemuron) intravenous, As needed, Starting on Fri04/04/25 at 0827, Anesthesia Intra-op Given 04/04/2025 12:13 PM CDT 20 mg Given 04/04/2025 11:27 AM CDT 10 mg Given 04/04/2025 10:54 AM CDT 20 mg sugammadex injection (Bridion) intravenous, As needed, Starting on Fri04/04/25 at 1330, Anesthesia Intra-op Given 04/04/2025 1:30 PM CDT 200 mg documented in this encounter
--- OUTSIDE RECORDS SUMMARY | 2025-04-06 05:36 | XMS_ITS | Encounter Summary ---
Author Organization [facility] Address [address] [place] [address] Care Team Providers Care Motor Equipment Captain Name Role Phone Unavailable Primary Care Provider Unavailabl e Reason for Referral * Radiation Therapy (Routine) - Authorized Specialty Diagnoses / Procedures Referred By Pastora piedra Referred To Contact Diagnoses Malignant Neoplasm Of Cervix (HCC) Procedures Brachytherapy HDR Meme Cunningham M.D. [address] [place] [phone] Phone: tel: fax: [facility] Referral ID Status Reason Start Date Expiration Date V isits Requested Visits Authorized [id number] Authorized 03/03/2025 06/03/2026 5 5 Reason for Visit * Radiation Therapy (Routine) - Authorized Specialty Diagnoses / Procedures Referred By Pastora piedra Referred To Contact Diagnoses Malignant Neoplasm Of Cervix (HCC) Procedures Brachytherapy HDR Meme Cunningham M.D. 200 [place] [phone] Phone: tel: fax: [facility] Referral ID Status Reason Start Date Expiration Date V isits Requested Visits Authorized [id number] Authorized 03/03/2025 06/03/2026 5 5 Encounter Details Date Type Department Care Team (Latest Contact Info) Description 04/06/2025 5:36 AM CDT - 04/11/2025 6:06 AM CDT Hospital Encounter Department of Radiation Oncology in [place], [place] [address] [place] [phone] Meme Cunningham M.D. [address] [place] [phone] Prateek Atwood, DISTRICT MEDICAL EXAMINER, SNAG GRINDER, DNAP 200 [place] [phone] Malignant Neoplasm Of Cervix (HCC) Discharge Disposition: Home or Self Care Social History Tobacco Use Types Packs/Day Years Used Date Smoking Tobacco: Never Smokeless Tobacco: Never Alcohol Use Standard Drinks/Week Comments Not Currently 0 (1 standard drink = 0.6 oz pure alcohol) Quit drinkinking in August after pelvic pain started. [facility] Utilities Answer Date Recorded In [...] your living situation today? 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 Gender Identity Female 03/05/2025 6:51 AM CDT Sexual Orientation Straight 03/05/2025 6: 51 AM CDT documented as of this encounter Last Filed Vital Signs Vital Sign Reading Time Taken Comments Blood Pressure 127/73 04/06/2025 2:15 PM CDT Pulse 82 04/06/2025 2:15 PM CDT Temperature 36.4 C (97.5 F) 04/06/2025 2:15 PM CDT Respiratory Rate 16 04/06/2025 2:15 PM CDT Oxygen Saturation 98% 04/06/2025 2:15 PM CDT Inhaled Oxygen Concentration - - Weight 66.7 kg (147 lb 0.8 oz) 04/06/2025 2:00 P M CDT Height 163 cm (5' 4.17) 04/06/2025 5:55 AM CDT Body Mass Index 25.1 04/06/2025 5:55 AM CDT documented in this encounter Medications [...] Procedure Notes * Sarath Funez M.D. - 04/06/2025 7:45 AM CDTAssociated Order(s): Brachytherapy HDR Pre-Procedure Diagnose(s): Malignant Neoplasm Of Cervix (HCC) Post-Procedure Diagnose(s): Malignant Neoplasm Of Cervix (HCC) Brachytherapy HDR Performed by: Sarath Funez M.D. Authorized by: Meme Cunningham M.D. Care team members present 1. Meme Cunningham M.D. 3. Sarath Funez M.D. PROCEDURE DETAILS Brachytherapy: Gynecologic brachytherapy Type: high dose rate Applicator(s): Interstitial needles and universal cylinder Brachytherapy Fraction Number: 3 Prescription Dose this Fraction: 700 Dose prescribed to: 2800 Total planned brachytherapy fractions: 4 Applicator removed: Yes Imaging: Image-Guidance: CT CONSENT [...] pause. PRE PROCEDURE DETAILS Procedure purpose: Therapeutic SEDATION / ANESTHESIA Anesthesia method: anesthesia POST PROCEDURE DETAILS Patient tolerance of procedure: Successful Complications: No apparent complications Post-procedure Survey: Post-procedure survey performed and no residual radioactivity COMMENTS Patient presents for her 3 of 4 brachytherapy fraction. The patient has given informed consent for general anesthesia and for the brachytherapy procedure. Patient was brought to the brachytherapy procedure room and general anesthesia was induced. Please see anesthesia notes for details. She was mobilized in the dorsal lithotomy position. Pelvis: On speculum exam, cervix is friable with poorly visualized os. No active bleeding. The perineum was prepped and draped in standard sterile fashion. Pre-procedure verification was conducted and a procedural time out was conducted prior to beginning the procedure. A Soria catheter was inserted into the bladder. Two free interstitial needles were inserted left and right lateral to the cervix at approximately the 2:00 and 8:00 positions. A 45 degree 8 cm tandem was inserted into the uterus. A 3.5 cm multi-channel interstitial [place] Cylinder was inserted into the vagina [...] was not filled with saline. A CT scanwas obtained and good applicator position was noted. Targets and organs at risk were segmented and a treatment plan was produced. The patient was treated with the Player X afterloading device and received 700 cGy to [...] meeting discharge criteria. She will return on 04/11/2025 for her next brachytherapy fraction. She will continue with EBRT as scheduled. Cosigned by Meme Cunningham M.D. at 04/06/2025 4:01 PM CDT Associated attestation - Meme Cunningham M.D. - 04/06/2025 4:01 PM CDT I was present for critical portions and immediately available to furnish services the entire duration. Met with patient in PACU. She reports minimal spotting after her treatments, no pain other than with bowel movements for the day following the brachytherapy procedure. This resolves without intervention within a day. We discussed follow up with PET-CT and MR in 3 months. She will likely follow withDr. Streeter in [place] but knows that I am available at any time. documented in this encounter Plan of Treatment Upcoming Encounters Date Type Department Care Team (Late st Contact Info) Description 04/28/2025 2:00 PM CDT Appointment Department of Radiation Oncology in [place], [place] [address] [place] [phone] Thelma Streeter M.D. [address] [place] [phone] 04/29/2025 10:00 AM CDT Appointment Department of Radiology, [facility], in [place], [place] [address] [place] [phone] Jessie Borden APRN, C.N.P., D.N.P. [address] [place] [phone] Scheduled Orders Name Type Priority Associated Diagnoses Orde r Schedule Glucose, POCT Point of Care Testing-Docked Device Timed As needed until discontinued starting 04/06/2025 Glucose, POCT Point of Care Testing-Docked Device Timed As needed until discontinued starting 04/06/2025 Type and Screen (with Reflex Antibody ID) Lab STAT STAT for 1 Occur janet starting 04/06/2025 until 04/06/2025 documented as of this encounter Procedures Procedure Name Priority Date/Time Associated Diagnosis Comments BRACHYTHERAPY HDR Routine 04/06/2025 7:4 5 AM CDT Malignant Neoplasm Of Cervix (HCC) documented in this encounter Results * Brachytherapy HDR (04/06/2025 7:45 AM CDT) Narrative LUIS FELIPE HOLDEN - 04/06/2025 7:45 AM CDT Meme Cunningham M.D. 04/06/2025 4:01 PM Brachytherapy HDR Performed by: Sarath Funez M.D. Authorized by: Meme Cunningham M.D. Care team members present 1. Meme Cunningham M.D. 3. Sarath Funez M.D. PROCEDURE DETAILS Brachytherapy: Gynecologic brachytherapy Type: high dose rate Applicator(s): Interstitial needles and universal cylinder Brachytherapy Fraction Number: 3 Prescription Dose this Fraction: 700 Dose prescribed to: 2800 Total planned brachytherapy fractions: 4 Applicator removed: Yes Imaging: Image-Guidance: CT CONSENT [...] pause. PRE PROCEDURE DETAILS Procedure purpose: Therapeutic SEDATION / ANESTHESIA Anesthesia method: anesthesia POST PROCEDURE DETAILS Patient tolerance of procedure: Successful Complications: No apparent complications Post-procedure Survey: Post-procedure survey performed and no residual radioactivity COMMENTS Patient presents for her 3 of 4 brachytherapy fraction. The patient has given informed consent for general anesthesia and for the brachytherapy procedure. Patient was brought to the brachytherapy procedure room and general anesthesia was induced. Please see anesthesia notes for details. She was mobilized in the dorsal lithotomy position. Pelvis: On speculum exam, cervix is friable with poorly visualized os. No active bleeding. The perineum was prepped and draped in standard sterile fashion. Pre-procedure verification was conducted and a procedural time out was conducted prior to beginning the procedure. A Soria catheter was inserted into the bladder. Two free interstitial needles were inserted left and right lateral to the cervix at approximately the 2:00 and 8:00 positions. A 45 degree 8 cm tandem was inserted into the uterus. A 3.5 cm multi-channel interstitial [place] Cylinder was inserted into the vagina [...] produced. The patient was treated with the Player X afterloading device and received 700 cGy to [...] meeting discharge criteria. She will return on 04/11/2025 for her next brachytherapy fraction. She will continue with EBRT as scheduled. Meme Cunningham M.D. RADIATION ONCOLOGY ORDERABL ES Final Result LUIS FELIPE sheffield documented in this encounter Visit Diagnoses Diagnosis Malignant Neoplasm Of Cervix (HCC) documented in this encounter Administered Medications Inactive Administered Medications - up to 3 most recent administrations Medication Order MAR Action Action Date Dose Rate Site acetaminophen tablet 1,000 mg (TylenoL) 1,000 mg, oral, Once, On Fri04/06/25 at 0600, For 1 dose, Pre-Op Given 04/06/2025 6:12 AM CDT 1,000 mg acetaminophen tablet 1,000 mg (TylenoL) 1,000 mg, oral, Once as needed, other, If patient has not received in the previous 6 hours, Starting on Fri04/06/25 at 1221, For 1 dose, PACU (only), Oral unless RASS less than -1 or nausea/vomiting. Do not use if given in last 6 hours Given 04/06/2025 12:42 PM CDT 1,000 mg heparin flush 500-1,000 Units 500-1,000 Units, intra-catheter, During hospitalization, line care, Prior to discharge, Starting on Fri04/06/25 at 1400, For 1 dose, Implanted Vascular Access Device (IVAD) Venous Non-Valved: flush 5 mL (500 units) per port/lumen following saline flush prior to discharge. Given 04/06/2025 2:11 PM CDT 500 Units documented in this encounter
--- OUTSIDE RECORDS SUMMARY | 2025-04-06 06:45 | XMS_ITS | Encounter Summary ---
Author Organization [facility] Address [address] [place] [id number] Care Team Providers Care Maintenance Fitter Name Role Phone Unavailable Primary Care Provider Unavailabl e Reason for Referral * Outpatient (Routine) - Authorized Specialty Diagnoses / Procedures Referred By Pastora piedra Referred To Contact Radiation Oncology Meme Cunningham M.D. [address] [place] [phone] Phone: tel: fax: [facility] Referral ID Status Reason Start Date Expiration Date V isits Requested Visits Authorized [id number] Authorized 03/08/2025 09/07/2026 5 5 Scheduling Instructions 03/30 Shimon, 04/04 Dana, 04/06 Shimon, 04/11 Lizet, 04/13 Shimon Please schedule nurse visit at 7 am and for duration of procedure. Reason for Visit * Outpatient (Routine) - Authorized Specialty Diagnoses / Procedures Referred By Pastora piedra Referred To Contact Radiation Oncology Meme Cunningham M.D. [address] [place] [phone] Phone: tel: fax: [facility] Referral ID Status Reason Start Date Expiration Date V isits Requested Visits Authorized [id number] Authorized 03/08/2025 09/07/2026 5 5 Encounter Details Date Type Department Care Team (Latest Contact Info) Description 04/06/2025 6:45 AM CDT - 04/06/2025 12:21 PM CDT Hospital Encounter Department of Radiation Oncology in [place], [place] [address] [place] [phone] Meme Cunningham M.D. [address] [place] [phone] Vita Noel R.N. Malignant Neoplasm Of Cervix (HCC) (Primary Dx) Social History Tobacco Use Types Packs/Day Years Used Date Smoking Tobacco: Never Smokeless Tobacco: Never Alcohol Use Standard Drinks/Week Comments Not Currently 0 (1 standard drink = 0.6 oz pure alcohol) Quit drinkinking in August after pelvic pain started. [facility] Utilities Answer Date Recorded In [...] your living situation today? 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 [address] [place] [phone] 04/29/2025 10:00 AM CDT Appointment Department of Radiology, [facility] in [place], [place] [address] [place] [phone] Jessie Borden APRN, C.N.P., D.N.P. [address] [place] [phone] Scheduled Referrals Name Type Priority Associated Diagnoses Order Schedule Radiation Oncology nurse visit (clinic) Outpatient Referral Routine Once for 1 Occurrences starting 04/06/2025 until 04/06/2025 documented as of this encounter Visit Diagnoses Diagnosis Malignant Neoplasm Of Cervix (HCC)- Primary documented in this encounter
--- OUTSIDE RECORDS SUMMARY | 2025-04-06 08:00 | XMS_ITS | Encounter Summary ---
Author Organization [facility] Address [address] [place] [phone] Care Team Providers Care Policeman Name Role Phone Unavailable Primary Care Provider Unavailabl e Encounter Details Date Type Department Care Team (Late Contact Info) Description 04/06/2025 8:00 AM CDT Anesthesia Event Department of Radiation Oncology in [place], [place] [address] [place] [phone] Prateek Atwood APRN, MARTA, DNAP [address] [place] [phone] Suzie Car M.D. [address] [place] [phone] Anesthesia Record Procedure Summary Procedure Name Responsible Anesthesiologist Anesthesia Start Time Anesthesia Stop Time BRACHYTHERAPY HDR Prateek Atwood APR N, CRNA, DNAP 04/06/25 0800 04/06/25 1211 Events Date Time Event Comment 04/06/2025 0800 An Start Machine/Equipme nt Checked Infection Precautions Followed Procedure/Site Verified NPO Status Verified Supine Standard ASA Monitors Applied 0812 An Induction 0816 An Intubation 0817 Turnover to Proceduralist 0840 Anesthesia Time Out 0940 Anes CS Handoff IOsiris APRN, MARTA, DNAP, attest that I have reconciled the controlled substances and that I have reviewed all the significant information with the next anesthesia provider assuming care of this patient. 1144 Turnover to ANE Staff 1150 Airway Removal Criteria Met 1154 Extubation/Airway Removed 1156 an stop data 1211 An End I completed my handoff to [...] Meds Name Total fentanyl injection 50 mcg/mL 75 mcg lidocaine 2% (mg) injection 100 mg rocuronium 10 mg/mL injection 150 mg ondansetron 4 mg/2 mL injection 4 mg sugammadex 100 mg/mL injection 400 mg propofol 10 mg/mL infusion 1,257.63 mg propofol 10 mg/mL injection 120 mg dexAMETHasone (Decadron) injection 4 mg/ mL 8 mg ketamine 10 mg/mL injection 20 mg Lactated Ringers Free Drip 1,000 mL * Agents No agents on file. * Blood No blood administrations on file. Lines, Drains, and Airways Type Details Placement Removal Nephrostomy 12/29/24; 1300; [facility]; Left; Back 12/29/24 1300 by Lacie Molina M.S.N., R.N. Nephrostomy 12/29/24; 1300; [facility]; Right; Back 12/29/24 1300 by Lacie Molina M.S.N., R.N. Implanted Port Single Lumen 02/15/25; 1200; Permanent (tunneled, implanted); Right; Chest 02/15/25 1200 by Marivel Marcus, R.N. Nephrostomy (present on admit to pacu. Per patient has had since the other neph tubes); Right; Back 03/30/25 1442 by Adelaida Rico, R.N., C.M.S.R.N. ETT Placement Date: 04/06/25; Placement Time: 0816 (created via procedure documentation); Mask Ventilation: Easy mask; Technique: Video laryngoscopy; Type: Standard ETT; Single Lumen Tube Size: 7 mm; Cuffed: Yes; Location: Oral; Grade View: Grade 2A; Insertion Attempts: 1; Placement Verification: Bilateral breath sounds, Positive ETCO2, Symmetrical chest wall movement; Removal Date: 04/06/25; Removal Time: 1154 04/06/25 0816 by Prateek Atwood APRN, CASHIER PAYMENTS RECEIVED, DNAP 04/06/25 1154 by Prateek Atwood APRN, MARTA, AMANDEEP documented in this encounter Social History Tobacco Use Types Packs/Day Years Used Date Smoking Tobacco: Never Smokeless Tobacco: Never Alcohol Use Standard Drinks/Week Comments Not Currently 0 (1 standard drink = 0.6 oz pure alcohol) Quit drinkinking in August after pelvic pain started. [facility] Utilities Answer Date Recorded In the past 12 months has th [employer], gas, oil, or water [employer] threatened to shut off services in your [...] your living situation today? 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 Gender Identity Female 03/05/2025 6:51 AM CDT Sexual Orientation Straight 03/05/2025 6: 51 AM CDT documented as of this encounter OR Notes * Anesthesia Postprocedure Evaluation - Prateek Atwood APRN, CRNA, DNAP - 04/06/2025 12:11 PM CDT Patient: Alyssa Garcia Procedure Summary Date: 04/06/25 Room / Location: Department of Radiation Oncology in [place], [place] Anesthesia Start: 0800 Anesthesia Stop: 1211 Procedure: BRACHYTHERAPY HDR Diagnosis: Malignant Neoplasm Of Cervix (HCC) Scheduled Providers: Meme Cunningham M.D.; Prateek Atwood APRN, MARTA, DNAP Responsible Provider: Pridie, Prateek Colón APRN, CRNA, DNAP Anesthesia Type: general ASA Status: 3 Anesthesia Type: general Last vitals Vitals Value Taken Time BP Temp Pulse 77 04/06/25 12:11 Resp 12 04/06/25 12:11 SpO2 92 % 04/06/25 12:11 Vitals shown include unfiled device data. Please reference Vitals flowsheet for most recent [...] - Prateek Atwood APRN, CRNA, DNAP - 04/06/2025 8:29 AM CDTAssociated Order(s): Airway Airway Date/Time: 04/06/2025 8:16 AM Performed by: Prateek Atwood APRN, CRNA, DNAP Authorized by: Prateek Atwood APRN, CRNA, DNAP Patient location during procedure: OR / Procedure Area PROCEDURE DETAILS: Mask difficulty assessment: easy mask Final airway type: video laryngoscope Laryngeal Manipulation: no Final best view of glottic structures - Cormack/Lehane Score: grade 2A ETT location: oral VL device: glide scope [place] scope blade size: 3 Tube size: 7 [...] no complications * Anesthesia Preprocedure Evaluation - Suzie Car M.D. - 04/06/2025 8:00 AM CDT Preprocedure Anesthesia & H&P Assessment Procedure Summary Anesthesia Start Date/Time: 04/06/25 0800 Scheduled providers: Mmee Cunningham M.D.; Prateek Atwood APRN, MARTA, DNAP Procedure: BRACHYTHERAPY HDR Diagnosis: Malignant Neoplasm Of Cervix (HCC) [C53.9] Location: Department of Radiation Oncology in [place], [place] Pertinent components of the patient's history including current problem list, medical history, surgical history, family history, social history, medications and allergies were reviewed. Present illness and pre-op diagnosis were confirmed. The planned surgery / procedure was verified with the patient / legal guardian. The patient's general health condition remains unchanged RELEVANT COMORBID CONDITIONS CV (+) Atherosclerotic Heart Disease Of [place] Coronary Artery Without Angina Pectoris (+) Hypertension Essential Primary Musculoskeletal (+) Malignant Neoplasm Of Bone Primary (HCC) 3rd tx; 100-150 mg prop for induction, 100 mcg fentanyl prior cases; did well, HTN hx though typically 120s/80s recently; preop acetaminophen OBJECTIVE PHYSICAL EXAMINATION Airway (HEENT) Mallampati: II TM Distance: >3 FB Neck ROM: Full Mouth Opening: >3 cm Upper Lip Bite Test Class: I Cardiovascular Rhythm: Regular Rate: Normal Cardiovascular Assessment: cardiovascular normal Functional Capacity: >4 METS Pulmonary Pulmonary Assessment: Clear General / Constitutional Constitutional Assessment: Normal General State of Health:: healthy appearing and calm Neurological Neurologic Assessment: alert and alert and oriented x 3 Dental Dental Assessment: dentition intact ASSESSMENT / PLAN ANESTHESIA PLAN ASA: 3 Anesthesia Plan: general Pain well controlled previously with minimal fentanyl Denies nausea from prior anesthetics Preop acetaminophen given Patient seen and allergies reviewed, anesthesia plan and risks discussed directly with patient /legal guardian or through an draw frame runner. The use of blood products not discussed Approval to Proceed: approved for anesthesia documented in this encounter Plan of Treatment Upcoming Encounters Date Type Department Care Team (Late st Contact Info) Description 04/28/2025 2:00 PM CDT Appointment Department of Radiation Oncology in [place], [place] [address] [place] [phone] Thelma Streeter M.D. [address] [place] [phone] 04/29/2025 10:00 AM CDT Appointment Department of Radiology, [facility] in [place], [place] [address] [place] [phone] Jessie Borden APRN, C.N.P., D.N.P. [address] [place] [phone] documented as of this encounter Procedures Procedure Name Priority Date/Time Associated Diagnosis Comments LDA ANE ENDOTRACHEAL AIRWAY Routine 04/06/2025 8:16 AM CDT documented in this encounter Results * LDA ANE ENDOTRACHEAL AIRWAY (04/06/2025 8:16 AM CDT) Narrative Prateek Atwood APRN, CRNA, DNAP - 04/06/2025 8:16 AM CDT Prateek Atwood APRN, CRNA, DNAP 04/06/2025 8:29 AM Airway Date/Time: 04/06/2025 8:16 AM Performed by: Prateek Atwood APRN, CRNA DNALeanna Authorized by: Prateek Atwood APRN, CRNA, DNAP Patient location during procedure: OR / Procedure Area PROCEDURE DETAILS: Mask difficulty assessment: easy mask Final airway type: video laryngoscope Laryngeal Manipulation: no Final best view of glottic structures - Cormack/Lehane Score: grade 2A ETT location: oral VL device: glide scope [place] scope blade size: 3 Tube size: 7 [...] Procedure outcome: successful Notable Events: no complications us Prateek Atwood APRN, CASHIER PAYMENTS RECEIVED, DNAP ANESTHESIA ORDER MIRELA Final Result documented in this encounter Visit Diagnoses Not on filedocumented in this encounter Administered Medications Inactive Administered Medications - up to 3 most recent administrations Medication Order MAR Action Action Date Dose Rate Site dexAMETHasone injection (Decadron) intravenous, As needed, Starting on Fri04/06/25 at 0831, Anesthesia Intra-op Given 04/06/2025 8:31 AM CDT 8 mg fentaNYL injection (Sublimaze) intravenous, As needed, Starting on Fri04/06/25 at 0813, Anesthesia Intra-op Given 04/06/2025 10:47 AM CDT 25 mcg Given 04/06/2025 8:13 AM CDT 50 mcg ketamine injection (Ketalar) intravenous, As needed, Starting on Fri04/06/25 at 0853, Anesthesia Intra-op Given 04/06/2025 8:53 AM CDT 20 mg Lactated Ringer's intravenous, Continuous Infusion: Per Instructions PRN, Starting on Fri04/06/25 at 0800, Anesthesia Intra-op New Bag 04/06/2025 11:14 AM CDT New Bag 04/06/2025 8:00 AM CDT lidocaine (PF) (cardiac) injection intravenous, As needed, Starting on Fri04/06/25 at 0812, Anesthesia Intra-op Given 04/06/2025 8:12 AM CDT 100 mg ondansetron (PF) injection (Zofran) intravenous, As needed, Starting on Fri04/06/25 at 1144, Anesthesia Intra-op Given 04/06/2025 11:44 AM CDT 4 mg propofol 10 mg/mL infusion (Diprivan) intravenous, Continuous Infusion: Per Instructions PRN, Starting on Fri04/06/25 at 0814, Anesthesia Intra-op Rate/Dose Change 04/06/2025 9:30 AM CDT 90 mcg/kg/min 36.018 mL/hr Rate/Dose Change 04/06/2025 9:01 AM CDT 100 mcg/kg/min 40. 02 mL/hr New Bag 04/06/2025 8:14 AM CDT 125 mcg/kg/min 50.025 mL /hr propofoL injection (Diprivan) intravenous, As needed, Starting on Fri04/06/25 at 0814, Anesthesia Intra-op Given 04/06/2025 8:14 AM CDT 120 mg rocuronium injection (Zemuron) intravenous, As needed, Starting on Fri04/06/25 at 0814, Anesthesia Intra-op Given 04/06/2025 10:47 AM CDT 50 mg Given 04/06/2025 8:53 AM CDT 30 mg Given 04/06/2025 8:14 AM CDT 70 mg sugammadex injection (Bridion) intravenous, As needed, Starting on Fri04/06/25 at 1144, Anesthesia Intra-op Given 04/06/2025 11:44 AM CDT 400 mg documented in this encounter
--- OUTSIDE RECORDS SUMMARY | 2025-04-11 06:07 | XMS_ITS | Encounter Summary ---
Author Organization [facility] Address [address] [place] [id number] Care Team Providers Care Sliver Lap Tender Name Role Phone Unavailable Primary Care Provider Unavailabl e Reason for Referral * Radiation Therapy (Routine) - Authorized Specialty Diagnoses / Procedures Referred By Pastora piedra Referred To Contact Diagnoses Malignant Neoplasm Of Cervix (HCC) Procedures Brachytherapy HDR Meme Cunningham M.D. [address] [place] [phone] Phone: tel: fax: [facility] Referral ID Status Reason Start Date Expiration Date V isits Requested Visits Authorized [id number] Authorized 03/03/2025 06/03/2026 5 5 Reason for Visit * Radiation Therapy (Routine) - Authorized Specialty Diagnoses / Procedures Referred By Pastora piedra Referred To Contact Diagnoses Malignant Neoplasm Of Cervix (HCC) Procedures Brachytherapy HDR Meme Cunningham M.D. 200 [place] [address] Phone: tel: fax: [facility] Referral ID Status Reason Start Date Expiration Date V isits Requested Visits Authorized [id number] Authorized 03/03/2025 06/03/2026 5 5 Encounter Details Date Type Department Care Team (Latest Contact Info) Description 04/11/2025 6:07 AM CDT - 04/11/2025 6:59 AM CDT Hospital Encounter Department of Radiation Oncology in [place], [place] [address] [place] [phone] Meme Cunningham M.D. [address] [place] [phone] Malignant Neoplasm Of Cervix (HCC) Social History Tobacco Use Types Packs/Day Years Used Date Smoking Tobacco: Never Smokeless Tobacco: Never Alcohol Use Standard Drinks/Week Comments Not Currently 0 (1 standard drink = 0.6 oz pure alcohol) Quit drinkinking in August after pelvic pain started. [facility] Utilities Answer Date Recorded In the past 12 months has th e [facility], gas, oil, or water [employer] threatened to shut off services in your [...] your living situation today? 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 Gender Identity Female 03/05/2025 6:51 AM CDT Sexual Orientation Straight 03/05/2025 6: 51 AM CDT documented as of this encounter Last Filed Vital Signs Vital Sign Reading Time Taken Comments Blood Pressure 117/63 04/11/2025 1:00 PM CDT Pulse 78 04/11/2025 1:00 PM CDT Temperature 36.6 C (97.9 F) 04/11/2025 1:00 PM CDT Respiratory Rate 16 04/11/2025 12:30 PM CDT Oxygen Saturation 98% 04/11/2025 1:00 PM CDT Inhaled Oxygen Concentration - - Weight 66.7 kg (147 lb 0.8 oz) 04/11/2025 12:08 PM CDT Height 163 cm (5' 4.17) 04/11/2025 6:46 AM CDT Body Mass Index 25.1 04/11/2025 6:46 AM CDT documented in this encounter Discharge Instructions * Patient Instructions* Lizet Joiner R.N. - 04/11/2025 8:15 AM CDT You may have some pain in the vagina or pelvis after the procedure. If you are having pain at the treatment site, you can use ehnk-smf-szocdhf medications such as Tylenol or ibuprofen as [...] vaginal bleeding, severe pain not controlled by [id number] pain medication, fevers (temperature greater than 100.4 F), chills, significant or worsening swelling, or any unexpected changes from your baseline. Please contact Dr. Cunningham's team with any concerns following your brachytherapy procedure. The team can be reached at [phone] from 8:00 am to 5:00 pm or by contacting the radiation oncologist on-call at [phone] after 5:00 p.m. or on weekends. Please [...] Procedure Notes * Sarath Funez M.D. - 04/11/2025 8:15 AM CDTAssociated Order(s): Brachytherapy HDR Pre-Procedure Diagnose(s): Malignant Neoplasm Of Cervix (HCC) Post-Procedure Diagnose(s): Malignant Neoplasm Of Cervix (HCC) Brachytherapy HDR Performed by: Sarath Fnuez M.D. Authorized by: Meme Cunningham M.D. Care team members present 1. Meme Cunningham M.D. 2. Candi Bustillos, [facility] 3. Sarath Funez M.D. PROCEDURE DETAILS Brachytherapy: Gynecologic brachytherapy Type: high dose rate Treatment Sites: Vaginal cuff Applicator(s): Frazee cylinder and interstitial needles Brachytherapy Fraction Number: 4 Prescription Dose this Fraction: 700 Dose prescribed [...] residual radioactivity COMMENTS Patient presents for her 4 of 4 brachytherapy fraction. The patient has given informed consent for general anesthesia and for the brachytherapy procedure. Patient was brought to the brachytherapy procedure room and general anesthesia was induced. Please see anesthesia notes for details. She was mobilized in the dorsal lithotomy position. Pelvis: On speculum exam, cervix is friable and fixed with poorly visualized os. Progressive narrowing of proximal vaginal vault. No active bleeding. The perineum was prepped and draped in standard sterile fashion. Pre-procedure verification was conducted and a procedural time out was conducted prior to beginning the procedure. A Soria catheter was inserted into the bladder. Four free interstitial needles were inserted left and right lateral to the cervix at approximately the 2:00, 4:00, 8:00 and 11:00 positions. A 45 degree 8 cm tandem was inserted into the uterus. A 3.5 cm multi-channel interstitial Frazee Cylinder was inserted into the vagina over the tandem and secured with a locking nut. Eleven interstitial needles in the applicator were advanced into tissue. A CT scan was obtained to verify needle position. The applicator was secured in position with the attachment device and fixed to the table. Bladder was not filled with saline. Four interstitial needles in the applicator were removed given overlap with free needles. A CTscan was obtained and good applicator position was noted. Targets and organs at risk were segmented and a treatment plan was produced. The patient was treated with the KeyVive afterloading device and received 700 cGy to [...] good condition after meeting discharge criteria. She is scheduled to followup with Dr. Streeter in Radiation Oncology on 04/28/2025. Cosigned by Meme Cunningham M.D. at 04/11/2025 4:55 PM CDT Associated attestation - Meme Cunningham M.D. - 04/11/2025 4:55 PM CDT I was present for critical portions and immediately available to furnish services the entire duration. Met with patient in PACU to discuss next steps now that she has completed all radiotherapy. She is scheduled for follow up with Dr. Streeter in a few weeks to review dilator education and surveillance plans. We discussed PET-CT and possibly MR pelvis, which she would like to do in [place]. She is scheduled for Urology consult in [place] in early April. I will not arrange follow up in my clinic but would be available for questions or a visit at any time. documented in this encounter Plan of Treatment Upcoming Encounters Date Type Department Care Team (Late st Contact Info) Description 04/28/2025 2:00 PM CDT Appointment Department of Radiation Oncology in [place], [place] [address] [place] [phone] Thelma Streeter M.D. [address] [place] [phone] 04/29/2025 10:00 AM CDT Appointment Department of Radiology, [facility], in [place], [place] [address] [place] [phone] Jessie Borden APRN, C.N.P., D.N.P. [address] [place] [phone] Scheduled Orders Name Type Priority Associated Diagnoses Orde r Schedule Glucose, POCT Point of Care Testing-Docked Device Timed As needed until discontinued starting 04/11/2025 documented as of this encounter Procedures Procedure Name Priority Date/Time Associated Diagnosis Comments BRACHYTHERAPY HDR Routine 04/11/2025 8:1 5 AM CDT Malignant Neoplasm Of Cervix (HCC) documented in this encounter Results * Brachytherapy HDR (04/11/2025 8:15 AM CDT) Narrative LUIS FELIPE HOLDEN - 04/11/2025 8:15 AM CDT Meme Cunningham M.D. 04/11/2025 4:55 PM Brachytherapy HDR Performed by: Sarath Funez M.D. Authorized by: Meme Cunningham M.D. Care team members present 1. Meme Cunningham M.D. 2. Candi Bustillos, KIERAN 3. Sarath Funez M.D. PROCEDURE DETAILS Brachytherapy: Gynecologic brachytherapy Type: high dose rate Treatment Sites: Vaginal cuff Applicator(s): Frazee cylinder and interstitial needles Brachytherapy Fraction Number: 4 Prescription Dose this Fraction: 700 Dose prescribed [...] residual radioactivity COMMENTS Patient presents for her 4 of 4 brachytherapy fraction. The patient has given informed consent for general anesthesia and for the brachytherapy procedure. Patient was brought to the brachytherapy procedure room and general anesthesia was induced. Please see anesthesia notes for details. She was mobilized in the dorsal lithotomy position. Pelvis: On speculum exam, cervix is friable and fixed with poorly visualized os. Progressive narrowing of proximal vaginal vault. No active bleeding. The perineum was prepped and draped in standard sterile fashion. Pre-procedure verification was conducted and a procedural time out was conducted prior to beginning the procedure. A Soria catheter was inserted into the bladder. Four free interstitial needles were inserted left and right lateral to the cervix at approximately the 2:00, 4:00, 8:00 and 11:00 positions. A 45 degree 8 cm tandem was inserted into the uterus. A 3.5 cm multi-channel interstitial Frazee Cylinder was inserted into the vagina over the tandem and secured with a locking nut. Eleven interstitial needles in the applicator were advanced into tissue. A CT scan was obtained to verify needle position. The applicator was secured in position with the attachment device and fixed to the table. Bladder was not filled with saline. Four interstitial needles in the applicator were removed given overlap with free needles. A CT scan was obtained and good applicator position was noted. Targets and organs at risk were segmented and a treatment plan was produced. The patient was treated with the KeyVive afterloading device and received 700 cGy to [...] good condition after meeting discharge criteria. She is scheduled to followup with Dr. Streeter in Radiation Oncology on 04/28/2025. Meme Cunningham M.D. RADIATION ONCOLOGY ORDERABL ES Final Result LUIS FELIPE sheffield documented in this encounter Visit Diagnoses Diagnosis Malignant Neoplasm Of Cervix (HCC) documented in this encounter Administered Medications Inactive Administered Medications - up to 3 most recent administrations Medication Order MAR Action Action Date Dose Rate Site acetaminophen tablet 1,000 mg (TylenoL) 1,000 mg, oral, Once, On 04/11/25 at 0645, For 1 dose, Pre-Op Given 04/11/2025 7:22 AM CDT 1,000 mg documented in this encounter
--- OUTSIDE RECORDS SUMMARY | 2025-04-11 07:00 | XMS_ITS | Encounter Summary ---
Author Organization [facility] Address [address] [place] [id number] Care Team Providers Care Pt Escort Name Role Phone Unavailable Primary Care Provider Unavailabl e Reason for Referral * Outpatient (Routine) - Authorized Specialty Diagnoses / Procedures Referred By Pastora piedra Referred To Contact Radiation Oncology Meme Cunningham M.D. [address] [place] [phone] Phone: tel: fax: [facility] Referral ID Status Reason Start Date Expiration Date V isits Requested Visits Authorized [id number] Authorized 03/08/2025 09/07/2026 5 5 Scheduling Instructions 03/30 Shimon, 04/04 Dana, 04/06 Shimon, 04/11 Lizet, 04/13 Shimon Please schedule nurse visit at 7 am and for duration of procedure. Reason for Visit * Outpatient (Routine) - Authorized Specialty Diagnoses / Procedures Referred By Pastora piedra Referred To Contact Radiation Oncology Meme Cunningham M.D. [address] [place] [phone] Phone: tel: fax: [facility] Referral ID Status Reason Start Date Expiration Date V isits Requested Visits Authorized [id number] Authorized 03/08/2025 09/07/2026 5 5 Encounter Details Date Type Department Care Team (Late st Contact Info) Description 04/11/2025 7:00 AM CDT Hospital Encounter Department of Radiation Oncology in [place], [place] [address] [place] [phone] Meme Cunningham M.D. 200 [place] [phone] Lizet Joiner R.N. 200 [place] [phone] Social History Tobacco Use Types Packs/Day Years Used Date Smoking Tobacco: Never Smokeless Tobacco: Never Alcohol Use Standard Drinks/Week Comments Not Currently 0 (1 standard drink = 0.6 oz pure alcohol) Quit drinkinking in August after pelvic pain started. [facility] Utilities Answer Date Recorded In the past [...] your living situation today? 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 [address] [place] [phone] 04/29/2025 10:00 AM CDT Appointment Department of Radiology, [facility], in [place], [place] [address] [place] [phone] Jessie Borden APRN, C.N.P., D.N.P. [address] [place] [phone] Scheduled Referrals Name Type Priority Associated Diagnoses Order Schedule Radiation Oncology nurse visit (clinic) Outpatient Referral Routine Once for 1 Occurrences starting 04/11/2025 until 04/11/2025 documented as of this encounter Visit Diagnoses Not on filedocumented in this encounter
--- OUTSIDE RECORDS SUMMARY | 2025-04-11 08:06 | XMS_ITS | Encounter Summary ---
Author Organization [facility] Address [address] [place] [address] Care Team Providers Care Machine Silk Screen Printer Name Role Phone Unavailable Primary Care Provider Unavailabl e Encounter Details Date Type Department Care Team (Late Contact Info) Description 04/11/2025 8:06 AM CDT Anesthesia Event Department of Radiation Oncology in [place], [place] [address] [place] [phone] Sandra Waldrop APRN, CRNA, MNBhavin [address] [place] [phone] Suzie Car M.D. [address] [place] [phone] Anesthesia Record Procedure Summary Procedure Name Responsible Anesthesiologist Anesthesia Start Time Anesthesia Stop Time BRACHYTHERAPY HDR Sandra Waldrop APRN, CRNA, MNA 04/11/25 0806 04/11/25 1211 Events Date Time Event Comment 04/11/2025 0759 0806 An Start Machine/Equipme nt Checked Infection Precautions Followed Procedure/Site Verified NPO Status Verified Supine Standard ASA Monitors Applied 0810 An Induction 0811 An Intubation 0812 Turnover to Proceduralist 0820 Quick Note Total urine out put from Lt. bag 0928 Anes CS Handoff I, Sandra forbes APRN, CRNA, MNA, attest that I have reconciled the controlled substances and that I have reviewed all the significant information with the next anesthesia provider assuming care of this patient. 0940 Anes CS Handoff I, Loretta murray APRN, CRNA, DNAP, attest that I have reconciled the controlled substances and that I have reviewed all the significant information with the next anesthesia provider assuming care of this patient. 1102 Quick Note Urine output-45 0 from Lt. Urter Bag 100cc from Rt. Urter bag 1141 Turnover to ANE Staff 1141 Airway Removal Criteria Met 1141 Extubation/Airway Removed 1141 an stop data 1211 An End I [...] Meds Name Total fentanyl injection 50 mcg/mL 50 mcg lidocaine 2% (mg) injection 100 mg rocuronium 10 mg/mL injection 130 mg ePHEDrine PF 5 mg/mL syringe injection 1 0 mg ondansetron 4 mg/2 mL injection 4 mg sugammadex 100 mg/mL injection 200 mg propofol 10 mg/mL infusion 1,071.87 mg propofol 10 mg/mL injection 100 mg ketamine 10 mg/mL injection 20 mg dexAMETHasone (Decadron) injection 4 mg/ mL 8 mg Lactated Ringers Free Drip 1,000 mL * Agents No agents on file. * Blood No blood administrations on file. Lines, Drains, and Airways Type Details Placement Removal Nephrostomy 12/29/24; 1300; [facility]; Left; Back 12/29/24 1300 by Lacie Molina M.S.N., R.N. Nephrostomy 12/29/24; 1300; [facility]; Right; Back 12/29/24 1300 by Lacie Molina M.S.N., R.N. Implanted Port Single Lumen 02/15/25; 1200; Permanent (tunneled, implanted); Right; Chest 02/15/25 1200 by Marivel Marcus, R.N. Nephrostomy (present on admit to pacu. Per patient has had since the other neph tubes); Right; Back 03/30/25 1442 by Adelaida Rico R.N., C.M.S.R.N. ETT Placement Date: 04/11/25; Placement Time: 0811 (created via procedure documentation); Mask Ventilation: Easy mask; Technique: Video laryngoscopy; Type: Standard ETT; Single Lumen Tube Size: 6.5 mm; Cuffed: Yes; Location: Oral; Grade View: Grade 1; Insertion Attempts: 1; Placement Verification: Bilateral breath sounds, Positive ETCO2, Symmetrical chest wall movement; Removal Date: 04/11/25; Removal Time: 1141 04/11/25 0811 by Sandra Waldrop APRN, CRNA, MNA 04/11/25 1141 by Sandra Waldrop APRN, CRNA, MNA documented in this encounter Social History Tobacco Use Types Packs/Day Years Used Date Smoking Tobacco: Never Smokeless Tobacco: Never Alcohol Use Standard Drinks/Week Comments Not Currently 0 (1 standard drink = 0.6 oz pure alcohol) Quit drinkinking in August after pelvic pain started. [facility] Utilities Answer Date Recorded In the past 12 months has [employer], gas, oil, or water [email or web address] threatened to shut off services in your [...] your living situation today? 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 Responsible Provider: Sandra Waldrop APRN, CRNA, MNA Anesthesia Type: general ASA Status: 3 Anesthesia Type: general Last vitals Vitals Value Taken Time BP 121/57 04/11/25 12:00 Temp 36.7 ??C 04/11/25 11:51 Pulse 71 04/11/25 12:11 Resp 17 04/11/25 12:11 SpO2 96 % 04/11/25 12:11 Vitals shown include unfiled device data. [...] events documented. * Anesthesia Procedure Notes - Sandra Waldrop APRN, CRNA, MNA - 04/11/2025 8:33 AM CDTAssociated Order(s): Airway Airway Date/Time: 04/11/2025 8:11 AM Performed by: Sandra Waldrop APRN, CRNA, MNA Authorized by: Sandra Waldrop APRN, CRNA, MNA Patient location during procedure: OR / Procedure Area PROCEDURE DETAILS: Mask difficulty assessment: easy mask Final airway type: video laryngoscope Laryngeal Manipulation: no Final best view of glottic structures - Cormack/Lehane Score: grade 1 ETT location: oral VL device: glide scope Tube size: 6.5 ETT distance at teeth/gum: 18 Oral tube type: standard ETT Cuffed: yes Leak Test Performed: no Number of attempt to successful placement: 1 [...] Preprocedure Evaluation - Suzie Car M.D. - 04/11/2025 7:58 AM CDT Preprocedure Anesthesia & H&P Assessment Procedure Summary Date/Time: 04/11/25814 Scheduled providers: Meme Cunningham M.D. Procedure: BRACHYTHERAPY HDR Diagnosis: Malignant Neoplasm Of Cervix (HCC) [C53.9] Location: Department of Radiation Oncology in [place], [place] Pertinent components of the patient's history including current problem list, medical history, surgical history, family history, social history, medications and allergies were reviewed. Present illness and pre-op diagnosis were confirmed. The planned surgery / procedure was verified with the patient / legal guardian. 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 (+) Hypertension Essential Primary Has been doing well with treatments- low dose fentanyl given- 75 mcg-100 mcg 4 mg Zofran/ 8 mg dexamethasone, 20 mg ketamine HTN on list- no meds >4 mets No new changes to health hx Preop PO acetaminophen given Airway Final Airway Type: video laryngoscope Mask Difficulty Assessment: easy mask Cuffed: Yes Final Best View Glottic Structure: grade 2A Insertion Site: oral Tube Type: standard ETT ETT Size (mm): 7 Number of Attempts at Approach: 1 OBJECTIVE PHYSICAL EXAMINATION Airway (HEENT) Mallampati: II TM Distance: >3 FB Neck ROM: Full Mouth Opening: >3 cm Cardiovascular Rhythm: Regular Rate: Normal Cardiovascular Assessment: [...] with patient /legal guardian or through an factory focus technician. The use of blood products not discussed Approval to Proceed: approved for anesthesia documented in this encounter Plan of Treatment Upcoming Encounters Date Type Department Care Team (Late st Contact Info) Description 04/28/2025 2:00 PM CDT Appointment Department of Radiation Oncology in [place], [place] [address] [place] [phone] Thelma Streeter M.D. [address] [place] [phone] 04/29/2025 10:00 AM CDT Appointment Department of Radiology, [facility] in [place], [place] [address] [place] [phone] Jessie Borden APRN, C.N.P., D.N.P. [address] [place] [phone] documented as of this encounter Procedures Procedure Name Priority Date/Time Associated Diagnosis Comments LDA ANE ENDOTRACHEAL AIRWAY Routine 04/11/2025 8:11 AM CDT documented in this encounter Results * LDA ANE ENDOTRACHEAL AIRWAY (04/11/2025 8:11 AM CDT) Narrative Sandra Waldrop APRN, CRNA, MNA - 04/11/2025 8:11 AM CDT Sandra Waldrop APRN, CRNA, MNA 04/11/2025 8:34 AM Airway Date/Time: 04/11/2025 8:11 AM Performed by: Sandra Waldrop APRN, CRNA, MNA Authorized by: Sandra Waldrop APRN, CRNA, MNA Patient location during procedure: OR / Procedure Area PROCEDURE DETAILS: Mask difficulty assessment: easy mask Final airway type: video laryngoscope Laryngeal Manipulation: no Final best view of glottic structures - Cormack/Lehane Score: grade 1 ETT location: oral VL device: glide scope Tube size: 6.5 ETT distance at teeth/gum: 18 Oral tube type: standard ETT Cuffed: yes Leak Test Performed: no Number of attempt to successful placement: 1 Airway confirmation: bilateral breath sounds, positive ETCO2 and bilateral chest rise Other previous techniques attempted: none PRE PROCEDURE DETAILS: Pre evaluation for airway management: procedure Urgency: elective Preop assessment of probable difficulty: no difficulty anticipated Preoxygenation: bag valve mask SEDATION / ANESTHESIA Anesthesia method: anesthesia POST PROCEDURE DETAILS: Procedure outcome: successful Notable Events: no complications us Sandra Waldrop APRN, TOUR LEADER, MNA ANESTHESIA ORD ERABLES Edited Result - Final documented in this encounter Visit Diagnoses Not on filedocumented in this encounter Administered Medications Inactive Administered Medications - up to 3 most recent administrations Medication Order MAR Action Action Date Dose Rate Site dexAMETHasone injection (Decadron) intravenous, As needed, Starting on Fri04/11/25 at 0832, Anesthesia Intra-op Given 04/11/2025 8:32 AM CDT 8 mg ePHEDrine (PF) injection intravenous, As needed, Starting on Fri04/11/25 at 0908, Anesthesia Intra-op Given 04/11/2025 9:08 AM CDT 10 mg fentaNYL injection (Sublimaze) intravenous, As needed, Starting on Fri04/11/25 at 0810, Anesthesia Intra-op Given 04/11/2025 8:45 AM CDT 25 mcg Given 04/11/2025 8:10 AM CDT 25 mcg ketamine injection (Ketalar) intravenous, As needed, Starting on Fri04/11/25 at 0811, Anesthesia Intra-op Given 04/11/2025 8:41 AM CDT 10 mg Given 04/11/2025 8:11 AM CDT 10 mg Lactated Ringer's intravenous, Continuous Infusion: Per Instructions PRN, Starting on Fri04/11/25 at 0806, Anesthesia Intra-op New Bag 04/11/2025 8:06 AM CDT lidocaine (PF) (cardiac) injection intravenous, As needed, Starting on Fri04/11/25 at 0810, Anesthesia Intra-op Given 04/11/2025 8:10 AM CDT 100 mg ondansetron (PF) injection (Zofran) intravenous, As needed, Starting on Fri04/11/25 at 0925, Anesthesia Intra-op Given 04/11/2025 9:25 AM CDT 4 mg propofol 10 mg/mL infusion (Diprivan) intravenous, Continuous Infusion: Per Instructions PRN, Starting on Fri04/11/25 at 0810, Anesthesia Intra-op Rate/Dose Change 04/11/2025 11:32 AM CDT 25 mcg/kg/min 10.005 mL/hr Rate/Dose Change 04/11/2025 11:26 AM CDT 30 mcg/kg/min 12. 006 mL/hr Rate/Dose Change 04/11/2025 9:58 AM CDT 70 mcg/kg/min 28.0 14 mL/hr propofoL injection (Diprivan) intravenous, As needed, Starting on Fri04/11/25 at 0810, Anesthesia Intra-op Given 04/11/2025 8:10 AM CDT 100 mg rocuronium injection (Zemuron) intravenous, As needed, Starting on Fri04/11/25 at 0811, Anesthesia Intra-op Given 04/11/2025 10:58 AM CDT 10 mg Given 04/11/2025 10:06 AM CDT 20 mg Given 04/11/2025 9:24 AM CDT 10 mg sugammadex injection (Bridion) intravenous, As needed, Starting on Fri04/11/25 at 1130, Anesthesia Intra-op Given 04/11/2025 11:30 AM CDT 100 mg Given 04/11/2025 11:29 AM CDT 100 mg documented in this encounter
--- OUTSIDE RECORDS SUMMARY | 2025-04-26 10:45 | XMS_ITS | Encounter Summary ---
Author Organization [facility] Address [address] [place] [address] Care Team Providers Care Morning Show Producer Name Role Phone Unavailable Primary Care Provider Unavailabl e Encounter Details Date Type Department Care Team (Late st Contact Info) Description 04/26/2025 10:45 AM CDT Lab Department of Urology in [place], [place] [address] [place] [phone] Thelma Streeter M.D. [address] [place] [phone] Malignant Neoplasm Of Cervix (HCC) Social History Tobacco Use Types Packs/Day Years Used Date Smoking Tobacco: Never Smokeless Tobacco: Never Alcohol Use Standard Drinks/Week Comments Not Currently 0 (1 standard drink = 0.6 oz pure alcohol) Quit drinkinking in August after pelvic pain started. [facility] Utilities Answer Date Recorded In the past 12 months has [facility] [employer], gas, oil, or water [employer] threatened to shut off services in your [...] situation today? 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 - 04/26/2025 10:45 AM CDT CHIEF COMPLAINT Patient is here for specimen collection Specimen Collection Specimen type: Urine Specimen route: Neph tube- Right # 1 tube and left neph tube Patient tolerated procedure: Yes Specimen sent for: urinalysis Patient did not want to wait any longer to get more urine to drain. Li Rao R.N. documented in this encounter Plan of Treatment Upcoming Encounters Date Type Department Care Team (Late st Contact Info) Description 04/28/2025 2:00 PM CDT Appointment Department of Radiation Oncology in [place], [place] [address] [place] [phone] Thelma Streeter M.D. [address] [place] [phone] 04/29/2025 10:00 AM CDT Appointment Department of Radiology, [facility], in [place], [place] [address] [place] [phone] Jessie Borden APRN, C.N.P., D.N.P. [address] [place] [phone] documented as of this encounter Procedures Procedure Name Priority Date/Time Associated Diagnosis Comments [place] OSMOLALITY ASSAY URINE Routine 04/26/2025 11:40 AM CDT DIPSTICK, U Routine 04/26/2025 11:40 AM CDT PH, RANDOM, U Routine 04/26/2025 11:40 AM CDT MICROSCOPIC MANUAL Routine 04/26/2025 11 :40 AM CDT URINALYSIS WITH MICROSCOPIC Routine 04/26/2025 11:40 AM CDT Malignant Neoplasm Of Cervix (HCC) documented in this encounter Results * (ABNORMAL) Dipstick, Urine (04/26/2025 11:40 AM CDT) Hemoglobin, QL, U Trace(A) Negative 04/26/2025 1:12 PM CDT DTL Leukocyte Esterase, U Small(A) Negative 04/26/2025 1:12 PM CDT DTL Nitrite, U Positive(A) Negative 04/26/2025 1:12 PM CDT DTL Ketone, U Negative Negative mg/dL 04/26/2025 1:12 PM CDT DTL Glucose, U Negative Negative mg/dL 04/26/2025 1:12 PM CDT DTL Urine 04/26/2025 11:4 0 AM CDT 04/26/2025 12:59 PM CDT us Thelma Streeter M.D. LAB URINE ORDERABLES Selina l Result [facility] [address] [place] [address], [facility] [address] [place] [address] * Osmolality, Urine (04/26/2025 11:40 AM CDT) Osmolality, U 652 150 - 1150 mOsm/kg 04/26/2025 6:45 PM CDT DTL Urine 04/26/2025 11:4 0 AM CDT 04/26/2025 12:59 PM CDT us Thelma Streeter M.D. LAB URINE ORDERABLES Selina l Result Performing Organization Address City/[facility] [address]/ZIP Co de Phone Number [facility] [address] [place] [address] * (ABNORMAL) Microscopic Manual (04/26/2025 11:40 AM CDT) Microscopy Abnormal 04/26/2025 2:09 PM CDT DTL RBC 3-10(A) <3 /hpf 04/26/2025 2:09 PM CDT DTL Dysmorphic RBC <25 <25 % 04/26/2025 2:09 PM CDT DTL WBC >100(A) /hpf 04/26/2025 2:09 PM CDT DTL Comment: ----REFERENCE VALUE---- <4 (Males) <11 (Females) Squamous Epithelial Cells, U 1-3 /hpf 04/26/2025 2:09 PM CDT DTL Bacteria Present(A) 04/26/2025 2:09 PM CDT DTL Urine 04/26/2025 11:4 0 AM CDT 04/26/2025 12:59 PM CDT Thelma Streeter M.D. LAB URINE ORDERABLES Selina l Result Performing Organization Address City/[facility] [address]/[facility] [[email or web address]] [place] [address] * pH, Random, Urine (04/26/2025 11:40 AM CDT) pH, Random, U 6.2 4.5 - 8.0 04/26/2025 6:45 PM CDT DTL Urine 04/26/2025 11:4 0 AM CDT 04/26/2025 12:59 PM CDT Thelma I. Syl M.D. LAB URINE ORDERABLES Selina l Result Performing Organization Address [facility] [address]/[facility] [[email or web address]] Co de Phone Number [facility] [address] [place] [address], [facility] DTL [facility] 200 [place] [address] * (ABNORMAL) Urinalysis, with Microscopic: Urine, Nephrostomy Left (04/26/2025 11:40 AM CDT) Source Urine, Urine, Nephrostomy Left 04/26/2025 12:59 PM CDT DTL Color, U Yellow 04/26/2025 12:59 PM CDT DTL Clarity, U Clear 04/26/2025 12:59 PM CDT DTL Protein, U 102(H) <26 mg/dL 04/26/2025 2:05 PM CDT DTL Protein/Osmol ality 1.56(H) <0.42 ratio 04/26/2025 6:45 PM CDT DTL Predicted 24 HR Protein, U 1004(H) <229 mg/24 h 04/26/2025 6:45 PM CDT DTL Predicted Range 248-4066 mg/24 h 04/26/2025 6:45 PM CDT DTL Comment Micro done on <5 mL 04/26/2025 2:01 PM CDT DTL Urine (Urine, Nephrostomy Left) 04/26/2025 11:40 AM CDT 04/26/2025 12:59 PM CDT Thelma Streeter M.D. LAB URINE ORDERABLES Selina l Result Performing Organization Address [facility] [address]/ZIP Co de Phone Number [facility] [address] [place] [address], [facility] DTL [facility] [address] [place] [address] documented in this encounter Visit Diagnoses Diagnosis Malignant Neoplasm Of Cervix (HCC) documented in this encounter
--- OUTSIDE RECORDS SUMMARY | 2025-04-26 11:40 | XMS_ITS | Encounter Summary ---
Author Organization [facility] Address [address] [place] [address] Care Team Providers Care Wet Process Miller Name Role Phone Unavailable Primary Care Provider Unavailabl e Encounter Details Date Type Department Care Team (Latest Contact Info) Description 04/26/2025 11:40 AM CDT - 04/26/2025 11:59 PM CDT Hospital Encounter Department of Laboratory Medicine and Pathology, [facility] in [place], [place] [address] [place] [phone] Thelma Streeter M.D. [address] [place] [address] Malignant Neoplasm Of Cervix (HCC) Discharge Disposition: Home or Self Care Social History Tobacco Use Types Packs/Day Years Used Date Smoking Tobacco: Never Smokeless Tobacco: Never Alcohol Use Standard Drinks/Week Comments Not Currently 0 (1 standard drink = 0.6 oz pure alcohol) Quit drinkinking in August after pelvic pain started. [facility] Utilities Answer Date Recorded In the past 12 months has [employer], oil, or water [employer] threatened to shut off services in your [...] living situation today? 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 [address] [place] [phone] 04/29/2025 10:00 AM CDT Appointment Department of Radiology, [facility], in [place], [place] [address] [place] [phone] Jessie Borden APRN, C.N.P., D.N.P. [address] [place] [phone] documented as of this encounter Procedures Procedure Name Priority Date/Time Associated Diagnosis Comments CREATININE WITH EGFR, S/P Routine 04/26/2025 12:16 PM CDT Malignant Neoplasm Of Cervix (HCC) documented in this encounter Results * (ABNORMAL) Creatinine with [...] M.D. LAB BLOOD ADD-ON Final Re sult [facility] [address] [place] [address], [place] DTL [facility] 200 [place] [address] documented in this encounter Visit Diagnoses Diagnosis Malignant Neoplasm Of Cervix (HCC) documented in this encounter
--- OUTSIDE RECORDS SUMMARY | 2025-04-26 13:00 | XMS_ITS | Encounter Summary ---
Author Organization [facility] Address [address] [place] [address] Care Team Providers Care Visual Merchandise Manager Name Role Phone Unavailable Primary Care Provider Unavailabl e Reason for Referral * Outpatient (Routine) - Authorized Specialty Diagnoses / Procedures Referred By Contac t Referred To Contact Diagnoses Hydronephrosis Procedures NM Kidney with Lasix Jessie Borden APRN, C.N.P., D.N.P. [address] [place] [phone] Phone: tel: fax: [facility] Referral ID Status Reason Start Date Expiration Date V isits Requested Visits Authorized [id number] Authorized 04/26/2025 07/27/2026 8 8 * Outpatient (Routine) - Authorized Specialty Diagnoses / Procedures Referred By Contac t Referred To Contact Radiology Diagnoses Hydronephrosis Procedures IR Nephrostomy Tube Exchange Bilateral Jessie Borden APRN, C.N.P., D.N.P. [address] [place] [phone] Phone: tel: fax: [facility] Referral ID Status Reason Start Date Expiration Date V isits Requested Visits Authorized [id number] Authorized 04/26/2025 07/27/2026 1 1 * Outpatient (Routine) - Authorized Specialty Diagnoses / Procedures Referred By Contac t Referred To Contact Radiology Diagnoses Hydronephrosis Procedures IR Nephrostomy Tube Check Bilateral Jessie Borden APRN, C.N.P., D.N.P. [address] [place] [phone] Phone: tel: fax: [facility] Referral ID Status Reason Start Date Expiration Date V isits Requested Visits Authorized [id number] Authorized 04/26/2025 07/27/2026 1 1 * Outpatient (Routine) - Authorized Specialty Diagnoses / Procedures Referred By Contac t Referred To Contact Urology Jessie Borden APRN C.N.PTaylor, D.N.P. [address] [place] [phone] Phone: tel: fax: Jessie Borden APRN C.N.P., D.N.P. [address] [place] [phone] Phone: tel: fax: Referral ID Status Reason Start Date Expiration Date V isits Requested Visits Authorized [id number] Authorized 04/26/2025 10/26/2026 1 1 * Outpatient (Routine) - Authorized Specialty Diagnoses / Procedures Referred By Contac t Referred To Contact Radiology Diagnoses Hydronephrosis Procedures IR Nephrostomy Tube Check Bilateral Jessie Borden APRN, C.N.P., D.N.P. [address] [place] [phone] Phone: tel: fax: [facility] Referral ID Status Reason Start Date Expiration Date V isits Requested Visits Authorized [id number] Authorized 04/26/2025 07/27/2026 1 1 * Outpatient (Routine) - Authorized Specialty Diagnoses / Procedures Referred By Pastora piedra Referred To Contact Radiology Diagnoses Hydronephrosis Procedures IR Nephrostomy Tube Exchange Bilateral Jessie Borden APRN, C.N.PTaylor, D.N.P. [address] [place] [phone] Phone: tel: fax: [facility] Referral ID Status Reason Start Date Expiration Date V isits Requested Visits Authorized [id number] Authorized 04/26/2025 07/27/2026 1 1 Reason for Visit * Outpatient (Routine) - Closed Specialty Diagnoses / Procedures Referred By Pastora piedra Referred To Contact Urology Diagnoses Malignant Neoplasm Of Cervix (HCC) Thelma Streeter M.D. [address] [place] [phone] Phone: tel: fax: [facility] Referral ID Status Reason Start Date Expiration Date Visits Re quested Visits Authorized [id number] Closed 03/22/2025 09/21/2026 1 1 Encounter Details Date Type Department Care Team (Latest Contact Info) Description 04/26/2025 1:00 PM CDT Comprehensive Visit Department of Urology in [place], [place] [address] [place] [phone] Jessie Borden APRN, C.N.PTaylor, D.N.P. [address] [place] [phone] Hydronephrosis (Primary Dx); Malignant Neoplasm Of Cervix (HCC) Social History Tobacco Use Types Packs/Day Years Used Date Smoking Tobacco: Never Smokeless Tobacco: Never Alcohol Use Standard Drinks/Week Comments Not Currently 0 (1 standard drink = 0.6 oz pure alcohol) Quit drinkinking in August after pelvic pain started. [facility] Utilities Answer Date Recorded In the [...] your living situation today? 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 - 04/26/2025 1:00 PM CDT REFERRAL SOURCE: The patient is being seen in consultation at the request of Thelma Streeter M.D. [address] [place] [phone]. Patient seen on my personal calendar. SUBJECTIVE HISTORY OF PRESENT ILLNESS Ms. Garcia is a pleasant 74 y.o. female who presents today for evaluation of hydronephrosis. Per records, She was admitted to an outside facility on 01/05/2025 with acute renal failure. CT showed worsening bilateral hydronephrosis and possible lower uterine vs. cervical mass. She underwent bilateral nep hrostomy tube placement on 01/07/25. Creatinine improved following placement. 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 She received chemotherapy and immunotherapy at [facility]. She completed external beam radiotherapy in [place] under the care of Dr. Streeter. She received 4 fractions of vaginal cuff brachytherapy with Dr. Cunningham ([facility]), completed on 04/11/2025. She is planned to follow up with Dr. Streeter on 04/28/2025 for surveillance including imaging and pelvic exams as well as Medical Oncology for maintenance immunotherapy. Her most recent MR imaging of pelvis on 03/29/2025 demonstrated partial positive treatment response. Abnormal parametrial tissue bilaterally R>L and persistent intermediate signal intensity was noted at posterior bladder wall, consistent with treatment change. Nephrostomy tube exchanges have been managed locally. She presents today for further evaluation and recommendations regarding bilateral hydronephrosis and the possibility of converting nephrostomy tubes to ureteral stents. She is accompanied by her friend/neighbor, Nilda. She is concerned about UTI. She states that she was not instructed on care or long-term expectations regarding nephrostomy tube. She notes increased pain at insertion site. She rates pain 3/10. She denies fever, chills, or hematuria at present. She did note blood on one occasion. She is received home health visits for twice weekly dressing changes. She is concerned that services will be reduced to once weekly. Nephrostomy tube has not been exchanged since insertion. She would like to discuss alternatives. She would like to be able to bathe normally and have massage and chiropractic adjustment. She is bothered by the need to awake at night to empty the bags. Oncology History Malignant Neoplasm Of Cervix (HCC) [...] acute renal failure. She was admitted to [facility] and eventually discharged on January 14. [...] 02/02/[address] Sarah Coto, [place] [facility]. Discussed treatment options including chemoradiotherapy with immunotherapy followed by brachytherapy. 02/21/2025 - 03/28/2025 Radiation Therapy Radiation Therapy Treatment Details (02/21/2025 - 03/28/2025) Sites: Cervix, Pelvic lymph node Technique: IMRT Goal: Curative Planned Treatment Start Date: 02/21/2025 Medical History[1] Surgical History[2] Current Medications[3] Allergies Allergen Reactions Iohexol Other (see comments) Syncopal episode and generalized weakness Social History Tobacco Use Smoking status: Never Smokeless tobacco: Never Substance Use Topics Alcohol use: Not Currently Comment: Quit drinkinking in August after pelvic pain started. Family History[4] REVIEW OF SYSTEMS OBJECTIVE PHYSICAL EXAMINATION General: Resting comfortably in the chair. Abdomen: Appears soft, nondistended. Extremities: No edema. Skin: No obvious skin lesions. DIAGNOSTICS Labs: Lab Results Component Value Date NA 138 01/12/2025 CL 104 01/12/2025 BUN 25 (H) 01/12/2025 CO2 18 (L) 06/10/2022 HGB 10.8 (L) 01/18/2025 HCT 33.2 (L) 01/18/2025 WBC 6.7 01/18/2025 Lab Results Component Value Date CREATININE 1.23 (H) 01/14/2025 Lab Results Component Value Date EGFRNONBLKAA 59 (L) 05/21/2021 EGFRBLKAA >60 05/21/2021 Imaging: US Interstitial Radioelement Result Date: 04/04/2025 Impression: Ultrasound guidance was performed in support of Radiation Oncology's Brachytherapy treatment. GANG KNIFE FISH CHOPPER MR Gynecologic Pelvis without and with IV Contrast Result Date: 03/29/2025 Impression: At least partial positive treatment response. Prior imaging from 01/10/2025 not acquiredon cervical axis results in suboptimal comparison. There is abnormal tissue in the parametrium bilaterally, right greater than left, with scattered areas of intermediate signal intensity on T2-weighted imaging which may represent residual tumor, however there is no significant diffusion restrictionor early contrast enhancement to suggest significant residual/viable tumor. Of note, this tumor didnot show significant diffusion restriction on pretreatment imaging. Posttreatment changes/necrosis in the posterior bladder wall as well as the posterior upper vagina. There is no definite tumor invol vement of the anterior rectum. No abnormal lymph nodes are identified. ASSESSMENT / PLAN #1 Hydronephrosis - bilateral nephrostomy tubes placed 01/07/2025, last exchange 01/07/2025. #2 Malignant Neoplasm Of Cervix (HCC) It was my pleasure to meet Ms. Garcia in clinic today for evaluation of hydronephrosis. We discussed that given the partial response and ongoing suspicion for residual tumor involving bladder and parametrium, further evaluation would be necessary to determine if conversion to ureteral stents is feasible. I recommended proceeding in a stepwise fashion with bilateral nephrostogram to assess for ureteral patency and bladder involvement. If contrast drains freely into the bladder can consider conversion to internal urethral stents. We discussed that nephrostogram would show intraluminal abnormalities. She understands that if there is question of persistent ureteral involvement, it would be necessaryto continue with nephrostomy tube drainage with tube exchange at the time of nephrostogram. We reviewed the advantages and disadvantages of stent versus nephrostomy tube. Ureteral stent: - Advantages: Completely internalized without need for external apparatus - Disadvantages: - Approximately 50% failure rate at 1 year in the setting of extrinsic ureteral obstruction - Inability to test for resolution of obstruction without removing the stent - 2/3 of patients develop stent-related painful symptoms requiring medications - Need for exchange under MAC anesthesia every 3 months Percutaneous nephrostomy tube: - Advantages: - 100% success rate even in setting of malignant obstruction - Most patients tolerate well without pain - Ability to exchange every 3 months with minimal use of anesthesia - Ability to check for resolution of obstruction by performing antegrade nephrostogram - Disadvantages: - Inconvenience of externalized apparatus - Potential for the tube to get dislodged and needing replacement - Low risk of bleeding complications (e.g. Arteriovenous fistula, pseudoaneurysm) requiring intervention After a detailed discussion, she elected to forgo conversion of nephrostomy tube to stent at this time. We will proceed with nephrostogram to assess feasibility at the time of nephrostomy tube exchange. We will arrange for nurse teaching visit and recommendations for leg straps and/or night bag. We will plan to follow up in 3 months after repeat PET and Lasix renogram. PLAN: Bilateral antegrade nephrostograms with nephrostomy tube exchange. Nurse Nephrostomy Teaching visit Follow up in 3 months with Lasix renogram, nephrostomy tube exchange, and return visit. Signed by: Jessie Borden APRN, C.N.P., D.N.P. [1] Past Medical History: Diagnosis Date Blood Transfusion No Diagnosis Failure Renal Acute (Acute Kidney Injury) 12/2024 Hydronephrosis Hypertension Essential Primary 03/11/2018 Melanoma In Situ Upper Limb Right (HCC) 08/05/2018 Personal History Of Malignant Neoplasm Of Cervix Uteri 01/09/25 Pure Hypercholesterolemia 06/29/2018 Skin Cancer (Primary) NOS 2017 [2] Past Surgical History: Procedure Laterality Date BRACHYTHERAPY - HDR 03/2025 IR NEPHROSTOMY TUBE PLACEMENT BILATERAL SKIN CANCER EXCISION [3] Current Outpatient Medications: acetaminophen (TylenoL) 325 mg tablet, Take 650 mg by mouth every 4 (four) hours as needed., Disp: , Rfl: carvediloL (Coreg) 25 mg tablet, Take 25 mg by mouth 2 (two) times a day with meals., Disp: , Rfl: cholecalciferol (Vitamin D3) 50 mcg (2,000 Unit) capsule, Take 50 mcg by mouth daily., Disp: , Rfl: co-enzyme Q-10 (Co Q-10) 100 mg capsule, Take 100 mg by mouth daily., Disp: , Rfl: omega-3 fatty acids-fish oil 360-1,200 mg capsule, Take 1 capsule by mouth., Disp: , Rfl: polyethylene glycol (Miralax) 17 gram/dose oral powder, Take 17 g by mouth at bedtime as needed., Disp: , Rfl: [4] No family history on file. documented in this encounter Plan of Treatment Upcoming Encounters Date Type Department Care Team (Late st Contact Info) Description 04/28/2025 2:00 PM CDT Appointment Department of Radiation Oncology in [place], [place] [address] [place] [phone] Thelma Streeter M.D. [address] [place] [phone] 04/29/2025 10:00 AM CDT Appointment Department of Radiology, [facility] in [place], [place] [address] [place] [address] Jessie Borden APRN, C.N.P., D.N.P. [address] [place] [phone] Scheduled Orders Name Type Priority Associated Diagnoses Order Schedule IR Nephrostomy Tube Exchange Bilateral Imaging RAD - Routine (most inpatients and all outpatients) Hydronephrosis Expected: 04/26/2025, Expires: 07/27/2026 IR Nephrostomy Tube Check Bilateral Imaging RAD - Routine (most inpatients and all outpatients) Hydronephrosis Expected: 04/26/2025, Expires: 07/27/2026 IR Nephrostomy Tube Check Bilateral Imaging RAD - Routine (most inpatients and all outpatients) Hydronephrosis Expected: 07/27/2025, Expires: 07/27/2026 IR Nephrostomy Tube Exchange Bilateral Imaging RAD - Routine (most inpatients and all outpatients) Hydronephrosis Expected: 07/27/2025, Expires: 07/27/2026 NM Kidney with Lasix Imaging RAD - Routi ne (most inpatients and all outpatients) Hydronephrosis Expected: 07/27/2025, Expires: 07/27/2026 Scheduled Referrals Name Type Priority Associated Diagnoses Orde r Schedule Urology office visit (clinic) Outpatient Referral Routine Expected: 07/27/2025, Expires: 07/27/2026 documented as of this encounter Visit Diagnoses Diagnosis Hydronephrosis- Primary Malignant Neoplasm Of Cervix (HCC) documented in this encounter
[2025-04-27] VITALS (37 sets, daily range): BP systolic 80–156; BP diastolic 45–82; PULSE 89–114; RESP 14–21; TEMP 36.6–38.4; O2SAT 92–98; BMI 25.7; BMI 24.6
--- OUTSIDE RECORDS SUMMARY | 2025-04-27 15:00 | XMS_ITS | Clinical Summary ---
[facility] Address [address], [place] [address] Care Team Providers Care Frame Cleaner Name Role Phone Jorge Luis Cortez DO Primary Care Provider [phone] Source Comments You are receiving this document as you are listed as the primary care provider,follow-up provider, or the patient has been referred to you for consultation.This is in compliance with the Medicare and[facility] EHR Incentive Program,which states Providers who transition their patient to another setting of careor provider of care or refers their patient to another provider of care shouldprovide summary care record for each transition of care or referral. Enmotus Allergies No known active allergies Medications hydroCHLOROthia [...] Orientation Not on file Plan of Treatment Health Maintenance Due Date Last Done Comments Colon Cancer Screening Plan Due 1950 Hep C Screening (Preventive Services) 1950 Medicare Annual Wellness Visit 1950 Mammogram 1950 DTaP/Tdap/Td Vaccine (1 - Tdap) 1968 Pneumococcal Vaccine 50+ Yrs (1 of 1 - PCV) 12/09/1999 Zoster/Shingles Vaccine (1 of 2) 12/09/1999 Dexa 2014 COVID-19 Vaccine ( season) 2024 07/02/2023, 07/26/2021, 01/02/2021, Additional history exists RSV Vaccine (1 - 1-dose 75+ series) 2024 Influenza Vaccine (#1) 2025 HepA Vaccine Aged Out No longer [...] complete this topic Insurance MEDICARE MANAGED CARE BCBS BCBS [employer]UE Care Teams Frame Cleaner Relationship Specialty Start Date End Date Jorge Luis Cortez DO [address] [place] [address] PCP - General Family Practice 12/22/19
--- OUTSIDE RECORDS SUMMARY | 2025-04-27 15:00 | XMS_ITS | Clinical Summary ---
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 For routine questions regarding patient records, call [phone] during business hours, M-F 8:00 AM - 5:00 PM Central Time. Record requests for emergency care only can be directed to [phone] at any time.[facility] Allergies Active Allergy Reactions Criticality Noted Date Comments Iohexol Other (see comments) 02/24/2025 Syncopal episode and generalized weakness Medications * This document contains information received from the source organization and may not represent a complete record from that organization. acetaminophen (TylenoL) 325 mg tablet Take 650 mg by mouth every 4 (four) hours as needed. 01/14/2025 Active carvediloL (Coreg) 25 mg tablet Take 25 mg by mouth 2 (two) times a day with meals. 01/18/2025 Active cholecalciferol (Vitamin D3) 50 mcg (2,000 Unit) capsule Take 50 mcg by mouth daily. 06/10/2022 Active omega-3 fatty acids-fish oil 360-1,200 mg capsule Take 1 capsule by mouth. Active polyethylene glycol (Miralax) 17 gram/dose oral powder Take 17 g by mouth at bedtime as needed. 01/14/2025 Active co-enzyme Q-10 (Co Q-10) 100 mg capsule Take 100 mg by mouth daily. 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 Date Type Department Care Team Description 04/26/2025 1:00 PM CDT Comprehensive Visit Department of Urology in [place], [place] [address] [place] [phone] Jessie Borden APRN, C.N.P., D.N.P. Hydronephrosis (Primary Dx); Malignant Neoplasm Of Cervix (HCC) 04/26/2025 11:40 AM CDT - 04/26/2025 11:59 PM CDT Hospital Encounter Department of Laboratory Medicine and Pathology, [facility], in [place], [place] [address] [place] [phone] Thelma Stereter M.D. Malignant Neoplasm Of Cervix (HCC) Discharge Disposition: Home or Self Care 04/26/2025 10:45 AM CDT Lab Department of Urology in [place], [place] [address] [place] [phone] Thelma Streeter M.D. Malignant Neoplasm Of Cervix (HCC) 04/26/2025 Orders Only Department of Urology in [place], [place] [address] [place] [phone] Jessie Borden APRN, C.N.PTaylor, D.N.PTaylor Hydronephrosis (Primary Dx) 04/26/2025 Orders Only Department of Radiation Oncology in [address] [phone] Thelma Streeter M.D. Malignant Neoplasm Of Cervix (HCC) (Primary Dx) 04/11/2025 8:06 AM CDT Anesthesia Event Department of Radiation Oncology in [place], [place] [address] [place] [address] MeinckeSandra APRN, CRNA, MNA Vanderwielen, Beth A, M.D. 04/11/2025 7:00 AM CDT Hospital Encounter Department of Radiation Oncology in [address] [phone] Meme Cunningham M.D. Armstrong, Stephanie R, R.N. 04/11/2025 6:07 AM CDT - 04/11/2025 6:59 AM CDT Hospital Encounter Department of Radiation Oncology in [address] [phone] Meme Cunningham M.D. Malignant Neoplasm Of Cervix (HCC) 04/11/2025 Documentation Department of Radiation Oncology in [address] [phone] Meme Cunningham M.D. 04/06/2025 8:00 AM CDT Anesthesia Event Department of Radiation Oncology in [address] [phone] Prateek Atwood APRN, CRNA, DNAP Vanderwielen, Beth A, M.D. 04/06/2025 6:45 AM CDT - 04/06/2025 12:21 PM CDT Hospital Encounter Department of Radiation Oncology in [address] [phone] Meme Cunningham M.D. Russell, Samantha M RTaylorNTaylor Malignant Neoplasm Of Cervix (HCC) (Primary Dx) 04/06/2025 5:36 AM CDT - 04/11/2025 6:06 AM CDT Hospital Encounter Department of Radiation Oncology in [address] [phone] Meme Cunningham M.D. Pridie, Jacob W, APRN, CRNA, AMANDEEP Malignant Neoplasm Of Cervix (HCC) Discharge Disposition: Home or Self Care 04/04/2025 8:22 AM CDT Anesthesia Event Department of Radiation Oncology in [address] [address] Jennifer Lee APRN, CRNA, DTaylorN.P. 04/04/2025 7:59 AM CDT - 04/04/2025 11:59 PM CDT Hospital Encounter Department of Radiology, [facility], in [place], [place] [address] [place] [phone] Meme Cunningham M.D. Malignant Neoplasm Of Cervix (HCC) Discharge Disposition: Home or Self Care 04/04/2025 7:00 AM CDT Hospital Encounter Department of Radiation Oncology in [place], [place] [address] [place] [phone] Meme Cunningham M.D. Severude, Laura M, RTaylorNTaylor 04/04/2025 6:16 AM CDT - 04/05/2025 7:56 AM CDT Hospital Encounter Department of Radiation Oncology in [place], [place] [address] [place] [phone] Meme Cunningham M.D. Malignant Neoplasm Of Cervix (HCC) Discharge Disposition: Home or Self Care 03/30/2025 7:42 AM CDT Anesthesia Event Department of Radiation Oncology in [address] [address] Prateek Atwood APRN, MARTA, DNABenedict Leonardo APRN, CRNA 03/30/2025 6:45 AM CDT - 03/30/2025 3:08 PM CDT Hospital Encounter Department of Radiation Oncology in [address] [phone] Meme Cunningham M.D. Russell, Samantha M, R.N. Malignant Neoplasm Of Cervix (HCC) (Primary Dx) 03/30/2025 5:48 AM CDT - 03/31/2025 9:10 AM CDT Hospital Encounter Department of Radiation Oncology in [address] [phone] Meme Cunningham M.D. 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 Malignant Neoplasm Of Cervix (HCC) Discharge Disposition: Home or Self Care 03/29/2025 Orders Only Department of Infusion Therapy in [place], [place] [address] [phone] Marivel Marcus, R.N. 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 Armstrong, Stephanie R, R.NTaylor Malignant Neoplasm Of Cervix (HCC) (Primary Dx) 03/28/2025 2:49 PM CDT - 03/29/2025 2:03 PM CDT Hospital Encounter Department of Radiation Oncology in [place], [place] [address] [place] [address] Meme Cunningham M.D. Malignant Neoplasm Of Cervix (HCC) 03/28/2025 8:45 AM CDT - 03/28/2025 2:48 PM CDT Hospital Encounter Department of Radiation Oncology in [place] [address] [place] [address] Thelma Streeter M.D. Malignant Neoplasm Of Cervix (HCC) 03/28/2025 8:15 AM CDT Hospital Encounter Department of Radiation Oncology in [address] [address] Thelma Streeter M.D. 03/28/2025 Documentation Department of Radiation Oncology in [address] [address] Thelma Streeter M.D. 03/28/2025 Orders Only Department of Radiation Oncology in [place], [place] [address] [place] [address] Lizet Joiner R.N. Malignant Neoplasm Of Cervix (HCC) (Primary Dx) 03/24/2025 9:29 AM CDT - 03/24/2025 11:59 PM CDT Hospital Encounter Department of Radiation Oncology in [address] [phone] Thelma Streeter M.D. Discharge Disposition: Home or Self Care 03/23/2025 9:32 AM CDT - 03/23/2025 11:59 PM CDT Hospital Encounter Department of Radiation Oncology in [address] [address] Thelma Streeter M.D. Discharge Disposition: Home or Self Care 03/22/2025 9:45 AM CDT - 03/22/2025 11:59 PM CDT Hospital Encounter Department of Radiation Oncology in [address] [address] Thelma Streeter M.D. Discharge Disposition: Home or Self Care 03/22/2025 9:01 AM CDT - 03/22/2025 9:44 AM CDT Hospital Encounter Department of Radiation Oncology in [address] [address] Thelma Streeter M.D. Malignant Neoplasm Of Cervix (HCC) 03/21/2025 8:30 AM CDT - 03/21/2025 11:59 PM CDT Hospital Encounter Department of Radiation Oncology in [address] [address] Thelma Streeter M.D. Discharge Disposition: Home or Self Care 03/18/2025 9:13 AM CDT - 03/18/2025 11:59 PM CDT Hospital Encounter Department of Radiation Oncology in [address] [address] Thelma Streeter M.D. Discharge Disposition: Home or Self Care 03/17/2025 9:12 AM CDT - 03/17/2025 11:59 PM CDT Hospital Encounter Department of Radiation Oncology in [address] [address] Thelma Streeter M.D. Discharge Disposition: Home or Self Care 03/16/2025 9:19 AM CDT - 03/16/2025 11:59 PM CDT Hospital Encounter Department of Radiation Oncology in [address] [address] Thelma Streeter M.D. Discharge Disposition: Home or Self Care 03/15/2025 9:20 AM CDT - 03/15/2025 12:01 PM CDT Hospital Encounter Department of Radiation Oncology in [address] [address] Chase Flores M.D. Malignant Neoplasm Of Cervix (HCC) 03/15/2025 9:19 AM CDT Hospital Encounter Department of Radiation Oncology in [address] [address] Thelma Streeter M.D. Discharge Disposition: Home or Self Care 03/14/2025 9:41 AM CDT - 03/14/2025 11:59 PM CDT Hospital Encounter Department of Radiation Oncology in [address] [address] Thelma Streeter M.D. Discharge Disposition: Home or Self Care 03/11/2025 9:16 AM CDT - 03/11/2025 11:59 PM CDT Hospital Encounter Department of Radiation Oncology in [address] [address] Thelma Streeter M.D. Discharge Disposition: Home or Self Care 03/10/2025 9:20 AM CDT - 03/10/2025 11:59 PM CDT Hospital Encounter Department of Radiation Oncology in [address] [address] Thelma Streeter M.D. Discharge Disposition: Home or Self Care 03/09/2025 9:15 AM CDT - 03/09/2025 11:59 PM CDT Hospital Encounter Department of Radiation Oncology in [address] [address] Thelma Streeter M.D. Discharge Disposition: Home or Self Care 03/08/2025 9:30 AM CDT - 03/08/2025 4:05 PM CDT Hospital Encounter Department of Radiation Oncology in [address] [address] Thelma Streeter M.D. Malignant Neoplasm Of Cervix (HCC) 03/08/2025 9:30 AM CDT - 03/08/2025 11:59 PM CDT Hospital Encounter Department of Radiation Oncology in [address] [address] Thelma Streeter M.D. Discharge Disposition: Home or Self Care 03/08/2025 Orders Only Department of Radiation Oncology in [place], [place] [address] [place] [address] Vita Noel R.N. 03/07/2025 12:00 PM CDT - 03/07/2025 11:59 PM CDT Hospital Encounter Department of Radiation Oncology in [address] [address] Thelma Streeter M.D. Discharge Disposition: Home or Self Care 03/04/2025 9:19 AM CDT - 03/04/2025 11:59 PM CDT Hospital Encounter Department of Radiation Oncology in [address] [address] Thelma Streeter M.D. Discharge Disposition: Home or Self Care 03/03/2025 9:18 AM CDT - 03/03/2025 8:06 PM CDT Hospital Encounter Department of Radiation Oncology in [address] [address] Thelma Streeter M.D. Malignant Neoplasm Of Cervix (HCC) 03/03/2025 9:18 AM CDT - 03/03/2025 11:59 PM CDT Hospital Encounter Department of Radiation Oncology in [address] [address] Thelma Streeter M.D. Discharge Disposition: Home or Self Care 03/03/2025 Orders Only Department of Radiation Oncology in [place], [place] [address] [place] [address] Marcy Pink APRN, C.N.P., D.N.P. Malignant Neoplasm Of Cervix (HCC) (Primary Dx) 03/03/2025 Orders Only Department of Radiation Oncology in [place], [place] [address] [place] [address] Meme Cunningham M.D. Malignant Neoplasm Of Cervix (HCC) (Primary Dx) 03/02/2025 9:23 AM CDT - 03/02/2025 11:59 PM CDT Hospital Encounter Department of Radiation Oncology in [address] [address] Thelma Streeter M.D. Discharge Disposition: Home or Self Care 03/01/2025 9:23 AM CDT - 03/01/2025 10:27 AM CDT Hospital Encounter Department of Radiation Oncology in [address] [address] Thelma Streeter M.D. Moorhouse, Alexis E, R.N. Malignant Neoplasm Of Cervix (HCC) 03/01/2025 9:23 AM CDT - 03/01/2025 11:59 PM CDT Hospital Encounter Department of Radiation Oncology in [address] [address] Thelma Streeter M.D. Discharge Disposition: Home or Self Care 02/28/2025 12:14 PM CDT - 02/28/2025 11:59 PM CDT Hospital Encounter Department of Radiation Oncology in [address] [address] Thelma Streeter M.D. Discharge Disposition: Home or Self Care 02/25/2025 9:37 AM CDT - 02/25/2025 11:59 PM CDT Hospital Encounter Department of Radiation Oncology in [address] [address] Thelma Streeter M.D. Discharge Disposition: Home or Self Care 02/24/2025 9:31 AM CDT - 02/24/2025 5:00 PM CDT Hospital Encounter Department of Radiation Oncology in [address] [address] Thelma Streeter M.D. Malignant Neoplasm Of Cervix (HCC) 02/24/2025 9:31 AM CDT - 02/24/2025 11:59 PM CDT Hospital Encounter Department of Radiation Oncology in [address] [address] Thelma Streeter M.D. Discharge Disposition: Home or Self Care 02/23/2025 9:51 AM CDT - 02/23/2025 11:59 PM CDT Hospital Encounter Department of Radiation Oncology in [address] [address] Thelma Streeter M.D. Discharge Disposition: Home or Self Care 02/22/2025 9:28 AM CDT - 02/22/2025 11:59 PM CDT Hospital Encounter Department of Radiation Oncology in [address] [address] Thelma Streeter M.D. Discharge Disposition: Home or Self Care 02/21/2025 2:30 PM CDT - 02/21/2025 11:59 PM CDT Hospital Encounter Department of Radiation Oncology in [address] [address] Thelma Streeter M.D. Discharge Disposition: Home or Self Care 02/17/2025 Orders Only Department of Oncology in [place], [place] [address] [place] [address] Brianda Pollock M.D. 02/11/2025 Clinical Communication Department of Radiation Oncology in [address] [address] Adan Carrington R.N. 02/10/2025 12:26 PM CDT - 02/10/2025 2:05 PM CDT Hospital Encounter Department of Radiation Oncology in [address] [address] Thelma Streeter M.D. Malignant Neoplasm Of Cervix (HCC) 02/10/2025 12:05 PM CDT - 02/10/2025 12:25 PM CDT Hospital Encounter Department of Radiation Oncology in [address] [address] Thelma Streeter M.D. Retterath, Chelsey A, R.NTaylor Malignant Neoplasm Of Cervix (HCC) (Primary Dx) 02/10/2025 9:59 AM CDT - 02/10/2025 12:04 PM CDT Hospital Encounter Department of Radiation Oncology in [address] [address] Syl, Thelma I., M.D. Malignant Neoplasm Of Cervix (HCC) (Primary Dx) 02/08/2025 Orders Only Department of Radiation Oncology in [place], [place] [address] [place] [phone] Sabrina Foley APRN, C.N.P., D.N.P. Malignant Neoplasm Of Cervix (HCC) (Primary Dx) from Last 3 Months Social History Tobacco Use Types Packs/Day Years Used Date Smoking Tobacco: Never Smokeless Tobacco: Never Tobacco Cessation:Counseling Given: Not Answered Alcohol Use Standard Drinks/Week Comments Not Currently 0 (1 standard drink = 0.6 oz pure alcohol) Quit drinkinking in August after pelvic pain started. [facility] Utilities Answer Date Recorded In the [...] [facility] 03/21/2025 Comments No Sex and Gender Information Value Date Recorded Sex Assigned at Female 03/05/2025 6:51 AM CDT Legal Sex Female 6:12 PM [employer] Gender Identity Female 03/05/2025 6:51 AM CDT Sexual Orientation Straight 03/05/2025 6: 51 AM CDT Last Filed Vital Signs Vital Sign Reading [...] Mass Index 25.1 04/11/2025 6:46 AM CDT Plan of Treatment Upcoming Encounters Date Type Department Care Team (Late st Contact Info) Description 04/28/2025 2:00 PM CDT Appointment Department of Radiation Oncology in [place], [place] [address] [place] [address] Thelma Streeter M.D. [address] [place] [address] 04/29/2025 10:00 AM CDT Appointment Department of Radiology, [facility], in [place], [place] [address] [place] [address] Jessie Borden APRN, C.N.P., D.N.P. [address] [place] [phone] Health Maintenance Due Date Last Done Comments Bone Density Scan (Osteoporosis Screen) 1949 CT Colonography 1950 Hepatitis C Screening 1950 Office Visit for Blood Pressure Check / Re-check 1950 DTaP,Tdap,and Td Vaccines (1 - Tdap) 1968 Pneumococcal vaccine (50+ years) (1 of 2 - PCV) 1968 Zoster Vaccines (1 of 2) 1968 Mammogram 03/15/1999 03/15/1998 COVID-19 Vaccine ( - 2023- season) 2024 07/02/2023, 07/26/2021, 01/02/2021, Additional history exists Depression Screening (Annual PHQ-2) 09/22/2024 RSV vaccine - (32-36 weeks) or 60+ years (1 - 1-dose 75+ series) 2024 Lipid (Cholesterol) Screening 12/29/2024 12/30/2023, 09/11/2023, 06/11/2023, Additional history exists Cologuard 06/18/2025 06/18/2022 Influenza Vaccine (#1) 2025 Potassium Level 01/12/2026 01/12/2025, 12/22, 01/10/2025, Additional history exists Sodium Level 01/12/2026 01/12/2025, 12/22, 01/10/2025, Additional history exists Creatinine Level (Kidney Function Test) 04/26/2026 04/26/2025, 01/14/2025, 01/12/2025, Additional history exists Fasting Glucose for Diabetes Screening 01/13/2028 01/12/2025, 01/11/2025, 01/10/2025, Additional history exists Colonoscopy 01/07/2030 01/07/2025 Colorectal Cancer Surveillance 01/07/2030 Fall Risk Screen (Annual) Completed 04/11/2025 HPV Vaccines Aged Out No longer eligi ble based on patient's age to complete this topic IPV Vaccines Aged Out No longer eligi ble based on patient's age to complete this topic Medical Devices Implanted Type Area Roll Bucker Device Identifier Shelf Expiration Date Model / Serial / Lot Implantable Port Implantable Port Right: Chest Procedures Procedure Name Priority Date/Time Associated Diagnosis Comments CREATININE WITH EGFR, S/P Routine 04/26/2025 12:16 PM CDT Malignant Neoplasm Of Cervix (HCC) DIPSTICK, U Routine 04/26/2025 11:40 AM CDT MS OSMOLALITY ASSAY URINE Routine 04/26/2025 11:40 AM CDT MICROSCOPIC MANUAL Routine 04/26/2025 11 :40 AM CDT PH, RANDOM, U Routine 04/26/2025 11:40 AM CDT URINALYSIS WITH MICROSCOPIC Routine 04/26/2025 11:40 AM CDT Malignant Neoplasm Of Cervix (HCC) ARIA COURSE COMPLETE TREATMENT INFORMATION Routine 04/11/2025 11:24 AM CDT BRACHYTHERAPY HDR Routine 04/11/2025 8:1 5 AM CDT Malignant Neoplasm Of Cervix (HCC) LDA ANE ENDOTRACHEAL AIRWAY Routine 04/11/2025 8:11 AM CDT ARIA DAILY TREATMENT INFORMATION Routine 04/06/2025 11:30 AM CDT LDA ANE ENDOTRACHEAL AIRWAY Routine 04/06/2025 8:16 AM CDT BRACHYTHERAPY HDR Routine 04/06/2025 7:4 5 AM CDT Malignant Neoplasm Of Cervix (HCC) US INTERSTITIAL RADIOELEMENT RAD - Routine (most inpatients and all outpatients) 04/04/2025 9:39 AM CDT Malignant Neoplasm Of Cervix (HCC) BRACHYTHERAPY HDR Routine 04/04/2025 8:3 0 AM CDT Malignant Neoplasm Of Cervix (HCC) LDA ANE ENDOTRACHEAL AIRWAY Routine 04/04/2025 8:30 AM CDT ARIA DAILY TREATMENT INFORMATION Routine 03/30/2025 1:16 PM CDT LDA ANE ENDOTRACHEAL AIRWAY Routine 03/30/2025 7:55 AM CDT BRACHYTHERAPY HDR Routine 03/30/2025 7:4 5 AM CDT Malignant Neoplasm Of Cervix (HCC) TYPE AND SCREEN Routine 03/30/2025 6:26 AM CDT MR GYNECOLOGIC PELVIS WITHOUT AND WITH IV CONTRAST RAD - Routine (most inpatients and all outpatients) 03/29/2025 10:47 AM CDT Malignant Neoplasm Of Cervix (HCC) ARIA COURSE COMPLETE TREATMENT INFORMATION Routine 03/28/2025 10:01 AM CDT ARIA DAILY TREATMENT INFORMATION Routine 03/28/2025 10:01 AM CDT ARIA DAILY TREATMENT INFORMATION Routine 03/24/2025 9:55 AM CDT ARIA DAILY TREATMENT INFORMATION Routine 03/23/2025 9:54 AM CDT ARIA DAILY TREATMENT INFORMATION Routine 03/22/2025 10:33 AM CDT ARIA DAILY TREATMENT INFORMATION Routine 03/21/2025 10:04 AM CDT ARIA DAILY TREATMENT INFORMATION Routine 03/18/2025 9:32 AM CDT ARIA DAILY TREATMENT INFORMATION Routine 03/17/2025 9:44 AM CDT ARIA DAILY TREATMENT INFORMATION Routine 03/16/2025 9:31 AM CDT ARIA DAILY TREATMENT INFORMATION Routine 03/15/2025 9:37 AM CDT ARIA DAILY TREATMENT INFORMATION Routine 03/14/2025 9:59 AM CDT ARIA DAILY TREATMENT INFORMATION Routine 03/11/2025 9:51 AM CDT ARIA DAILY TREATMENT INFORMATION Routine 03/10/2025 9:36 AM CDT ARIA DAILY TREATMENT INFORMATION Routine 03/09/2025 9:40 AM CDT ARIA DAILY TREATMENT INFORMATION Routine 03/08/2025 9:54 AM CDT ARIA DAILY TREATMENT INFORMATION Routine 03/07/2025 12:22 PM CDT ARIA DAILY TREATMENT INFORMATION Routine 03/04/2025 9:46 AM CDT ARIA DAILY TREATMENT INFORMATION Routine 03/03/2025 9:34 AM CDT [facility] 03/02/2025 9:44 AM CDT [facility] Routine 03/01/2025 9:51 AM CDT [facility] Routine 02/28/2025 12:52 PM CDT [facility] Routine 02/25/2025 10:19 AM CDT [facility] Routine 02/24/2025 10:03 AM CDT [facility] Routine 02/23/2025 10:24 AM CDT [facility] Routine 02/22/2025 9:55 AM CDT [facility] Routine 02/21/2025 3:15 PM CDT INITIAL RAD ONC TREATMENT PLANNING CT SIMULATION Routine 02/10/2025 1:00 PM CDT Malignant Neoplasm Of Cervix (HCC) OUTSIDE NM PET Routine 01/27/2025 4:40 PM CDT BI BREAST DIAGNOSTIC BILATERAL Routine 03/15/1998 1:14 PM CDT from Last 3 Months or Most Recently Relevant to Health Maintenance Results * (ABNORMAL) Creatinine with Estimated GFR [...] M.D. LAB BLOOD ADD-ON Final Re sult Performing Organization Address [facility] Co de Phone Number [facility] [address] [place] [address] * Osmolality, Urine (04/26/2025 11:40 AM CDT) Osmolality, U 652 150 - 1150 mOsm/kg 04/26/2025 6:45 PM CDT DTL Urine 04/26/2025 11:4 0 AM CDT 04/26/2025 12:59 PM CDT Thelma Streeter M.D. LAB URINE ORDERABLES Selina l Result Performing Organization Address [facility] Co de Phone Number [facility] [address] [place] [address] * (ABNORMAL) Dipstick, Urine (04/26/2025 11:40 AM [...] ORDERABLES Selina l Result Performing Organization Address City/[facility] Co de Phone Number [facility] [address] [place] [address] * pH, Random, Urine (04/26/2025 11:40 AM CDT) pH, Random, U 6.2 4.5 - 8.0 04/26/2025 6:45 PM CDT DTL Urine 04/26/2025 11:4 0 AM CDT 04/26/2025 12:59 PM CDT Thelma Streeter M.D. LAB URINE ORDERABLES Selina l Result Performing Organization Address [facility] [place] [address] * (ABNORMAL) Microscopic Manual (04/26/2025 11:40 AM [...] M.D. LAB URINE ORDERABLES Selina l Result [facility] [address] [place] [address], [facility] [address] [place] [address] * (ABNORMAL) Urinalysis, with Microscopic: Urine, Nephrostomy [...] ORDERABLES Selina l Result Performing Organization Address [facility] Co de Phone Number [facility] [address] [place] [address], [facility] [address] [place], [place] [id number] * Aria Course Complete Treatment Information (04/11/2025 11:24 AM CDT) Only the most recent of2 resultswithin the time period is included. Course ID [id number] [facility]A Course Start Date 03/30/2025 09:49 CDT [facility] Course End Date 04/18/2025 11:34 CDT [facility] First Treatment Date 03/30/2025 13:03 CDT [facility] Last Treatment Date 04/11/2025 11:24 CDT [facility] Treatment Elapsed Days 12 [facility] Reference Point DPV HDR [facility] Dosage Given to Date cGy 2800 [facility] Plan ID [id number] [facility] Fractions Treated to Date 1 [facility]A Planned Total Fractions 1 BR[facility]COE ARIA Prescribed Dose Per Fraction 700 BR[facility] ARIA Prescription Dose in cGy 700 BR[facility] ARIA Plan Primary Reference Point DPV HDR [facility]A Plan ID [id number] Cervix [facility]A Fractions Treated to Date 1 [facility] ARIA Planned Total Fractions 1 BR[facility]A Prescribed Dose Per Fraction 700 [facility] ARIA Prescription Dose in cGy 700 [facility] ARIA Plan Primary Reference Point DPV HDR [facility] Plan ID [id number] [facility]A Fractions Treated to Date 1 BR[facility] ARIA Planned Total Fractions 1 BR[facility]A Prescribed Dose Per Fraction 700 [facility]A Prescription Dose in cGy 700 [facility] ARIA Plan Primary Reference Point DPV HDR [facility] Plan ID [id number] [facility]A Fractions Treated to Date 1 BR[facility] ARIA Planned Total Fractions 1 [facility]A Prescribed Dose Per Fraction 700 [facility]A Prescription Dose in cGy 700 [facility] ARIA Plan Primary Reference Point DPV HDR [facility]A 04/11/2025 11:2 4 AM CDT us Provider Not In System RADIATION ONCOLOGY ORDERA BLES Final Result LUIS FELIPE HOLDEN na * Brachytherapy HDR (04/11/2025 8:15 AM CDT) Only the most recent of4 resultswithin the time period is included. Narrative BRISCOE ARIA - 04/11/2025 8:15 AM CDT Meme Cunningham M.D. 04/11/2025 4:55 PM Brachytherapy HDR Performed by: Sarath Funez M.D. Authorized by: Meme Cunningham M.D. Care team members present 1. Meme Cunningham M.D. 2. Candi Bustillos, [facility] 3. Sarath Funez M.D. PROCEDURE DETAILS Brachytherapy: Gynecologic brachytherapy Type: high dose rate Treatment Sites: Vaginal cuff Applicator(s): Baxley cylinder and interstitial needles Brachytherapy Fraction Number: [...] the uterus. A 3.5 cm multi-channel interstitial Baxley Cylinder was inserted into the vagina over [...] Dr. Streeter in Radiation Oncology on 04/28/2025. us Meme Cunningham M.D. RADIATION ONCOLOGY ORDERABL ES Final Result LUIS FELIPE HOLDEN na * LDA ANE ENDOTRACHEAL AIRWAY (04/11/2025 8:11 [...] Events: no complications us Sandra Waldrop APRN, MARTA, MNA ANESTHESIA ORD ERABLES Edited Result - Final * Aria Daily Treatment Information (04/06/2025 11:30 AM CDT) Only the most recent of27 resultswithin the time period is included. Course ID 1bCervix [facility]A Course Start Date 5 09:49 CDT [facility]A First Treatment Date 5 13:03 CDT [facility] Last Treatment Date 5 11:30 CDT [facility] Treatment Elapsed Days 7 [facility]A Reference Point DPV HDR [facility]A Dosage Given to Date cGy 2100 BR[facility]CO[facility] ARIA Session Dosage Given 700 [facility] ARIA Plan ID [id number] [facility] ARIA Fractions Treated to Date 1 BR[facility]COE ARIA Planned Total Fractions 1 BR[facility] ARIA Prescribed Dose Per Fraction 700 [facility] ARIA Prescription Dose in cGy 700 BR[facility]COE ARIA Plan Primary Reference Point DPV HDR [facility]CO[facility] ARIA 04/06/2025 11:3 0 AM CDT Provider Not In System RADIATION ONCOLOGY ORDERA BLES Final Result [facility] na * LDA ANE ENDOTRACHEAL AIRWAY (04/06/2025 8:16 AM CDT) Narrative Prateek Atwood APRN, CRNA DNAP - 04/06/2025 8:16 AM CDT Prateek Atwood APRN, CRNA, DNALeanna 04/06/2025 8:29 AM Airway Date/Time: 04/06/2025 8:16 AM Performed by: Prateek Atwood APRN, CRNA DNAP Authorized by: Prateek Atwood APRN, CRNA, DNAP Patient location during procedure: OR / Procedure Area PROCEDURE DETAILS: Mask difficulty assessment: easy mask Final airway type: video laryngoscope Laryngeal Manipulation: no Final best view of glottic structures - Cormack/Lehane Score: grade 2A ETT location: oral VL device: glide scope [place] scope blade size: 3 Tube size: 7 [...] Notable Events: no complications Prateek Atwood APRN, MARTA, DNAP ANESTHESIA ORDER MIRELA Final Result * US Interstitial Radioelement (04/04/2025 9:39 AM CDT) Anatomical Region Laterality Modality Pelvis, Ultrasound RST LOS, Ultrasound ARZ LOS, Vascular Interventional FLA LOS N/A Ultrasound Impressions 04/04/2025 9:40 AM CDT Ultrasound guidance was performed in support of Radiation Oncology's Brachytherapy treatment. HAND ETCHER Narrative 04/04/2025 9:40 AM CDT EXAM: US INTERSTITIAL RADIOELEMENT Procedure Note Ben Mccormack M.D. - 04/04/2025 EXAM: US INTERSTITIAL RADIOELEMENT IMPRESSION: Ultrasound guidance was performed in support of Radiation Oncology'sBrachytherapy treatment. HAND ETCHER Meme Cunningham M.D. IMG US PROCEDURES Final Res ult * LDA ANE ENDOTRACHEAL AIRWAY (04/04/2025 8:30 [...] ETT location: oral VL device: glide scope [place] scope blade size: 3 Tube size: 7 [...] Events: no complications Jennifer Lee APRN, CRNA, D.N.PTaylor ANESTHESIA ORDERABLES Final Result * LDA ANE ENDOTRACHEAL AIRWAY (03/30/2025 7:55 [...] CRNA, DNAP ANESTHESIA ORDER MIRELA Final Result * Type and Screen (with Reflex Antibody ID) (03/30/2025 6:26 AM CDT) Pathologist [facility] ABORh O Pos Not applicable 03/30/2025 7:02 AM CDT ETRM Antibody Screen Negative Negative 03/30/2025 7:13 AM CDT ETRM Type & Screen Expiration 04/02/2025 23:59 03/30/2025 7:02 AM CDT ETRM Testing Location [place] DEFAULT 03/30/2025 6:28 AM CDT ETRM Blood (Blood, Venous) 03/30/2025 6:26 AM CDT 03/30/2025 6:28 AM CDT Meme Cunningham M.D. LAB BLOOD BANK TEST ORDERAB LES Final Result [facility] [address] [place] [address], [facility] ETRM [facility] [address] [place] [address] * MR Gynecologic Pelvis without and with [...] the parametrium right greater than left. On /18, this measures 2.7 x 2.4 cm and [...] No abnormal lymph nodes are identified. Meme Cunningham M.D. IMG MRI PROCEDURES Final Re sult * Initial Rad Onc Treatment Planning CT Simulation (02/10/2025 1:00 PM CDT) Narrative LUIS FELIPE HOLDEN - 02/10/2025 1:00 PM CDT Thelma Streeter M.D. 02/10/2025 2:05 PM Initial Rad Onc Treatment Planning CT Simulation Performed by: Thelma Streeter M.D. Authorized by: Thelma Streeter M.D. us Thelma Streeter M.D. RADIATION ONCOLOGY ORDERA BLES Final Result LUIS FELIPE HOLDEN na * PET skull to mid thigh-Outside NM Pet (01/27/2025 4:40 PM CDT) Narrative [facility] - 02/08/2025 12:58 PM CDT This order has been created and auto-finalized to support the import of outside images. If available, original interpretation can be found on the Media Tab in Chart Review, in Document Viewer, as an image in InfinityView or as an Addendum. If a re-interpretation or overread is required please follow defined workflow. us Provider Not In System IMG NM PROCEDURES Final R esult [facility] NA * BI Breast Diagnostic Bilateral (03/15/1998 1:14 PM CDT) Anatomical Region Laterality Modality Breast Bilateral Mammography 03/15/1998 1:14 PM CDT Narrative 03/15/1998 2:16 PM CDT 15-Mar-1998 13:14:00 Exam: zMammo -DIAGNOSTIC (Bilateral) Indications: ORIGINAL REPORT - 15-Mar-1998 14:16:00 There is an area of asymmetric parenchymal density in the upper outer quadrant of the left breast in the clinically palpable region. Ultrasound over this area shows only normal breast parenchyma without a focal lesion. This asymmetry was present on the outside mammogram of 07-27-97 and is unchanged. This is likely due to benign asymmetric breast parenchyma. However, since there is only six months of follow- up on this area of asymmetry, a repeat mammogram of the left breast in six months is recommended. Alternatively, the patient states that she has had a previous mammogram in [place] several years previously, and if this could be obtained and the area of asymmetry shown to be stable over that interval, the six month follow-up would not be necessary. Nothing for malignancy in the right breast. P1,P6L,D1,M3.9L,U0L Electronically signed by: Joce Burton M.D. [id number] 15-Mar-1998 14:16 Procedure Note David Burton M.D. - 12/30/2017 15-Mar-1998 13:14:00 Exam: zMammo -DIAGNOSTIC (Bilateral) Indications: ORIGINAL REPORT - 15-Mar-1998 14:16:00 There is an area of asymmetric parenchymal density in the upper outerquadrant of the left breast in the clinically palpable region. Ultrasoundover this area shows only normal breast parenchyma without a focal lesion.This asymmetry was present on the outside mammogram of 07-27-97 and isunchanged. This is likely due to benign asymmetric breast parenchyma.However, since there is only six months of follow-up on this area ofasymmetry, a repeat mammogram of the left breast in six months isrecommended. Alternatively, the patient states that she has had a previous[place]ammogram in [place] several years previously, and if this could beobtained and the area of asymmetry shown to be stable over that interval,the six month follow-up would not be necessary. Nothing for malignancy inthe right breast. P1,P6L,D1,M3.9L,U0L Electronically signed by: Joce Burton M.D. [id number] 15-Mar-1998 14:16 Gail Law M.D. 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 See document viewer. * Full Code (Latest Code Status on File) Date Activated Date Inactivated Comments 04/11/2025 12:44 PM 04/11/2025 7:01 PM Question Answer Comments Full Code: Not Discussed Due to: Patient not available
--- OUTSIDE RECORDS SUMMARY | 2025-04-27 15:01 | XMS_ITS | Encounter Summary ---
Author Organization [facility] Address [address] [place] [address] Care Team Providers Care Analytical Lab Technician Name Role Phone Unavailable Primary Care Provider Unavailabl e Encounter Details Date Type Department Care Team (Late st Contact Info) Description 03/28/2025 Documentation Department of Radiation Oncology in [place], [place] [address] [place] [address] Thelma Streeter M.D. [address] [place] [address] Social History Tobacco Use Types Packs/Day Years Used Date Smoking Tobacco: Never Smokeless Tobacco: Never Alcohol Use Standard Drinks/Week Comments Not Currently 0 (1 standard drink = 0.6 oz pure alcohol) Quit drinkinking in August after pelvic pain started. [facility] Utilities Answer Date Recorded In the past 12 months has [facility] [employer], gas, oil, or water [employer] threatened to shut off services in your [...] living situation today? 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 - 03/28/2025 11:59 PM CDT DIAGNOSIS: Malignant Neoplasm Of Cervix Attending Physician: Thelma Streeter M.D. Treatment Intent: Curative Concomitant Therapy: Chemotherapy Single Plan Treatment Course: 1xPelvis Plan ID Fractions Dose / Fraction (cGy) Dose Treated (cGy) Dose Planned (cGy) First Treatment Last Treatment Elapsed Days [id number] 180 4500 4500 02/21/2025 03/28/2025 35 Course Summary 02/21/2025 03/28/2025 35 Radiation Modality: Photons CLINICAL SUMMARY Ms. Alyssa Garcia completed radiation treatment as planned without interruptions. The course of treatment was tolerated well. The patient experienced toxicities of grade 1 diarrhea, constipation, proctitis and pelvic pain during radiation treatment. TREATMENT RESPONSE: Response to treatment will be determined by post-treatment imaging and/or laboratory work. RECOMMENDED FOLLOW UP: Radiation Oncologist - Dr. Streeter Signed by: Ellie Carrington R.N., 04/05/2025 11:30 AM CDT [facility] [address] [place] [address] Cosigned by Thelma Streeter M.D. at 04/17/2025 6:15 PM CDT documented in this encounter Plan of Treatment Upcoming Encounters Date Type Department Care Team (Late st Contact Info) Description 04/28/2025 2:00 PM CDT Appointment Department of Radiation Oncology in [place], [place] [address] [place] [phone] Thelma Streeter M.D. [address] [place] [address] 04/29/2025 10:00 AM CDT Appointment Department of Radiology, [facility], in [place], [place] [address] [place] [address] Jessie Borden APRN, C.N.P., D.N.P. [address] [place] [phone] documented as of this encounter Visit Diagnoses Not on filedocumented in this encounter
--- OUTSIDE RECORDS SUMMARY | 2025-04-27 15:01 | XMS_ITS | Encounter Summary ---
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 [facility] Utilities Answer Date Recorded In [...] living situation today? 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 [address] [place] [phone] 04/29/2025 10:00 AM CDT Appointment Department of Radiology, [facility], in [place], [place] [address] [place] [address] Jessie Borden APRN, C.N.P., D.N.P. 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
--- OUTSIDE RECORDS SUMMARY | 2025-04-27 15:01 | XMS_ITS | Encounter Summary ---
Author Organization [facility] Address [address] [place] [address] Care Team Providers Care Lean Manufacturing Engineer Name Role Phone Unavailable Primary Care Provider Unavailabl e Reason for Referral * Outpatient (Routine) - Authorized Specialty Diagnoses / Procedures Referred By Pastora piedra Referred To Contact Radiation Oncology Meme Cunningham M.D. [address] [place] [phone] Phone: tel: fax: [facility] Referral ID Status Reason Start Date Expiration Date V isits Requested Visits Authorized [id number] Authorized 03/28/2025 09/27/2026 1 1 Scheduling Instructions Please schedule 03/28 @ 1600 Encounter Details Date Type Department Care Team (Late st Contact Info) Description 03/28/2025 Orders Only Department of Radiation Oncology in [place], [place] [address] [place] [phone] Lizet Joiner R.N. [address] [place] [phone] Malignant Neoplasm Of Cervix (HCC) (Primary Dx) Social History Tobacco Use Types Packs/Day Years Used Date Smoking Tobacco: Never Smokeless Tobacco: Never Alcohol Use Standard Drinks/Week Comments Not Currently 0 (1 standard drink = 0.6 oz pure alcohol) Quit drinkinking in August after pelvic pain started. [facility] Utilities Answer Date Recorded In the [...] your living situation today? 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 [address] [place] [phone] 04/29/2025 10:00 AM CDT Appointment Department of Radiology, [facility], in [place], [place] [address] [place] [address] Jessie Borden APRN, C.N.P., D.N.P. [address] [place] [phone] Scheduled Referrals Name Type Priority Associated Diagnoses Orde r Schedule Radiation Oncology nurse visit (clinic) Outpatient Referral Routine Expected: 03/28/2025, Expires: 06/28/2026 documented as of this encounter Visit Diagnoses Diagnosis Malignant Neoplasm Of Cervix (HCC)- Primary documented in this encounter
--- OUTSIDE RECORDS SUMMARY | 2025-04-27 15:01 | XMS_ITS ---
Author Organization [facility] Address [address] [place] [address] Care Team Providers Care Talent Acquisition Specialist Name Role Phone Unavailable Primary Care Provider Unavailabl e Active Problems * This document contains information received from the source organization and may not represent a complete record from that organization. Problem Noted Date Diagnosed Date Atherosclerotic Heart Diseas e Of [place] Coronary Artery Without Angina Pectoris 03/30/2025 Malignant Neoplasm Of Bone Primary 03/29/2025 Malignant Neoplasm Of Cervix 02/08/2025 Cancer Staging:Clinical stage from 01/13/2025:Stage BRICE(cT4, cN0, cM0) - Unsigned Melanoma In Situ Upper Limb Right 08/05/2018 Pure Hypercholesterolemia 06/29/2018 Hypertension Essential Primary 03/11/2018 Current Treatment and Therapy Plans Vascular Access Patency - Implanted Vascular Access Device (IVAD) Venous Non-Valved* Plan Start Date:03/29/2025 Plan Provider:Gris Huddleston APRN Linked Problems Malignant Neoplasm Of Cervix (HCC)Malignant Neoplasm Of Bone Primary (HCC) Treatment Medications No medications scheduled. Past Treatment and Therapy Plans Flushes/Hydration Plan Name Start Date Discontinue Date Treatment Medications Discontinue Reason Plan Provider Vascular Access Patency - Peripheral Intravenous Catheter and Rapid Infusion Catheter 02/10/2025 03/29/2025 No medications scheduled. Therapy Complete Thelma Streeter M.D. Past Radiation Episodes * IMRT: Cervix, Pelvic lymph nodeOverview* First Treatment Date Last Treatment Date Treatment Site Technique Goal Episode Provider 02/21/2025 04/06/2025 CervixPelvic lym ph node IMRT Curative Meme Cunningham M.D. * Linked Problems Malignant Neoplasm Of Cervix Treatment Courses* Course [id number] 03/30/2025 - 04/06/2025 Treatment Period Fraction Dose Fractions Total Dose Plans Planned [id number] 04/06/2025 - 04/06/2025 700 cGy 7 00 cGy [id number] 03/30/2025 - 03/30/2025 700 cGy 7 00 cGy Reference Points Delivered DPV HDR 03/30/2025 - 04/06/2025 2,100 cGy * Course 1xPelvis 02/21/2025 - 03/28/2025 Treatment Period Fraction Dose Fractions Total Dose Plans Planned [id number] 02/21/2025 - 03/28/2025 180 cGy 25 / 25 4 ,500 cGy Reference Points Delivered [id number] 02/21/2025 - 03/28/2025 4,500 cGy
--- OUTSIDE RECORDS SUMMARY | 2025-04-27 15:02 | XMS_ITS | Encounter Summary ---
Author Organization [facility] Address [address] [place] [address] Care Team Providers Care Shipping Room Supervisor Name Role Phone Unavailable Primary Care Provider Unavailabl e Encounter Details Date Type Department Care Team (Late st Contact Info) Description 04/26/2025 Orders Only Department of Radiation Oncology in [address] [phone] Thelma Streeter M.D. [address] [place] [address] Malignant Neoplasm Of Cervix (HCC) (Primary Dx) Social History Tobacco Use Types Packs/Day Years Used Date Smoking Tobacco: Never Smokeless Tobacco: Never Alcohol Use Standard Drinks/Week Comments Not Currently 0 (1 standard drink = 0.6 oz pure alcohol) Quit drinkinking in August after pelvic pain started. [facility] Utilities Answer Date Recorded In the past 12 months has [facility] [employer], gas, oil, or water [employer] threatened to shut off services in your [...] your living situation today? 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 [address] [place] [address] 04/29/2025 10:00 AM CDT Appointment Department of Radiology, [facility], in [place], [place] [address] [place] [address] Jessie Borden APRN, C.N.P., D.N.P. [address] [place] [phone] Scheduled Orders Name Type Priority Associated Diagnoses Orde r Schedule Urinalysis, with Microscopic: Urine, Midstream Lab Routine Malignant Neoplasm Of Cervix (HCC) Expected: 04/26/2025 (Approximate), Expires: 07/27/2026 documented as of this encounter Visit Diagnoses Diagnosis Malignant Neoplasm Of Cervix (HCC)- Primary documented in this encounter
--- OUTSIDE RECORDS SUMMARY | 2025-04-27 15:02 | XMS_ITS | Encounter Summary ---
Author Organization [facility] Address [address] [place] [address] Care Team Providers Care Segmental Paving Supervisor Name Role Phone Unavailable Primary Care Provider Unavailabl e Encounter Details Date Type Department Care Team (Late st Contact Info) Description 04/26/2025 Orders Only Department of Urology in [place], [place] [address] [place] [phone] Jessie Borden APRN, C.N.P., D.N.P. [address] [place] [phone] Hydronephrosis (Primary Dx) Social History Tobacco Use Types Packs/Day Years Used Date Smoking Tobacco: Never Smokeless Tobacco: Never Alcohol Use Standard Drinks/Week Comments Not Currently 0 (1 standard drink = 0.6 oz pure alcohol) Quit drinkinking in August after pelvic pain started. [facility] Utilities Answer Date Recorded In the past 12 months has [facility] [employer], gas, oil, or water [employer] threatened to shut off services in your [...] your living situation today? 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 [address] [place] [address] 04/29/2025 10:00 AM CDT Appointment [facility] in [place], [place] [address] [place] [address] Jessie Borden APRN, C.N.P., D.N.P. [address] [place] [phone] Scheduled Orders Name Type Priority Associated Diagnoses Orde r Schedule Creatinine with Estimated GFR Lab Routine Hydronephrosis Expected: 07/27/2025, Expires: 07/27/2026 documented as of this encounter Visit Diagnoses Diagnosis Hydronephrosis- Primary documented in this encounter
--- OUTSIDE RECORDS SUMMARY | 2025-04-27 15:02 | XMS_ITS | Encounter Summary ---
Author Organization [facility] Address [address] [place] [address] Care Team Providers Care Continuity Tester Name Role Phone Unavailable Primary Care Provider Unavailabl e Encounter Details Date Type Department Care Team (Late st Contact Info) Description 04/11/2025 Documentation Department of Radiation Oncology in [place], [place] [address] [place] [address] Meme Cunningham M.D. [address] [place] [phone] Social History Tobacco Use Types Packs/Day Years Used Date Smoking Tobacco: Never Smokeless Tobacco: Never Alcohol Use Standard Drinks/Week Comments Not Currently 0 (1 standard drink = 0.6 oz pure alcohol) Quit drinkinking in August after pelvic pain started. [facility] Utilities Answer Date Recorded In the past 12 months has [facility] [employer]), gas, oil, or water [employer] threatened to shut off services in your [...] your living situation today? 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, HPV-associated Treatment Intent: Curative Concomitant Therapy: Chemotherapy, Immunotherapy Treatment Course Treatment Course: 1xPelvis Plan ID Fractions Dose / Fraction (cGy) Dose Treated (cGy) Dose Planned (cGy) First Treatment Last Treatment Elapsed Days [id number] / 180 4500 4500 02/21/2025 03/28/2025 35 Course Summary 02/21/2025 03/28/2025 35 Treatment Course: 1bCervix Plan ID Fractions Dose / Fraction (cGy) Dose Treated (cGy) Dose Planned (cGy) First Treatment Last Treatment Elapsed Days [id number] 1 / 700 700 700 03/30/2025 03/30/2025 0 K1Hlexcy 1 / 1 700 700 700 04/04/2025 04/04/2025 0 S3Rxcfuq 1 / 1 700 700 700 04/06/2025 04/06/2025 0 X8Qsuxrr 1 / 1 700 700 700 04/11/2025 04/11/2025 0 Treatment Site Summary 2800 2800 03/30/2025 04/11/2025 12 Course Summary 03/30/2025 04/11/2025 12 Brachytherapy plan Route: Intracavitary and interstitial (hybrid) Applicator: Multi-channel interstitial cylinder, Tandem, and Free interstitial needles Isotope: [id number]-[id number] Total dose: 2800 cGy Dose per fraction: 700 cGy Number of fractions: 4 Dose prescribed to: hrctv CLINICAL SUMMARY Ms. Garcia completed a course of radiotherapy for locally advanced cervical cancer. She received chemotherapy and immunotherapy at [facility]. She completed external beam radiotherapy in [place] under the care of Dr. Streeter. Please see her treatment summary for details of her EBRT course. She received 4 fractions of vaginal cuff brachytherapy. There were no unplanned treatment breaks or delays. The course of treatment was tolerated well. Ms. Garcia will follow up with Dr. Streeter for surveillance including imaging and pelvic exams as well as Medical Oncology for maintenance immunotherapy. RECOMMENDED FOLLOW UP: Radiation Oncologist and Medical Oncologist documented in this encounter Plan of Treatment Upcoming Encounters Date Type Department Care Team (Late st Contact Info) Description 04/28/2025 2:00 PM CDT Appointment Department of Radiation Oncology in [place], [place] [address] [place] [address] Thelma Streeter M.D. [address] [place] [phone] 04/29/2025 10:00 AM CDT Appointment Department of Radiology, [facility], in [place], [place] [address] [place] [phone] Jessie Borden APRN, C.N.P., D.N.P. [address] [place] [phone] documented as of this encounter Visit Diagnoses Not on filedocumented in this encounter
--- OUTSIDE RECORDS SUMMARY | 2025-04-27 15:03 | XMS_ITS | Patient Health Record ---
Author Organization [facility] Address [address] [place], [place] [phone] Care Team Providers Care Supervisor Car Installations Name Role Phone Dev Mckeon Primary Care Provider Allergies No Known Allergies Reason For Referral No Information Medications Medication SIG (Take, Route, Frequency, Duration) Notes Start Date End Date Status [place] 3 1000 MG 1 capsule Orally Thr [...] Problem Status W/U Status Risk Notes Problem Primary hypertension (I10) Active confirmed Vital Signs Heart Rate 70 /min 12/03/2024 Temperature 97.2 degrees Fahrenheit 12/03/2024 Respiratory Rate 16 /min 12/03/2024 Blood pressure diastolic 98 mm Hg 12/03/2024 Weight-kg 70.67 kg 12/03/2024 Blood pressure systolic 158 mm Hg 12/03/2024 Weight 155.8 lbs 12/03/2024 Encounters Encounter Location Date Provider Diagnosis [facility] [address] [place], [place] [phone] 12/03/2024 Dev Mckeon Abdominal bloating R14.0 and Intermittent constipation K59.09 [facility] [address] [place], [place] [phone] 12/06/2024 Devalcon Wilsoner Assessments Encounter Date Diagnosis (ICD Code) [...] End Date [employer] [address] [address] [place] [phone] [id number] [phone] [id number] Rosa Garcia Self - patient is the [...]
--- OUTSIDE RECORDS SUMMARY | 2025-04-27 15:03 | XMS_ITS | CCD ---
Author Name Interface, [id number] Address [address] [facility] [address] [address] [facility] Address [address] [facility] [address] [address] Care Team Providers Care Wildlife Enforcement Major Name Role Phone Chica PALMA, Sarah Gallegos Unavailable Un available Allergies and Adverse Reactions Medication/Group Name Reaction Severity Date No known allergies Care Plan Date Type Value 05/10/2025 APPOINTMENT TELEHEALTH PALLI ATIVE CONSULT 80 MIN 04/27/2025 APPOINTMENT TELEHEALTH PALLI ATIVE CONSULT 80 MIN 04/25/2025 APPOINTMENT TELEHEALTH PALLI ATIVE CONSULT 80 MIN 04/15/2025 APPOINTMENT PALLIATIVE CARE CONSULT 80 MIN 04/14/2025 APPOINTMENT PALLIATIVE CARE CONSULT 80 MIN 04/12/2025 APPOINTMENT PALLIATIVE CARE CONSULT 80 MIN [...] LABORDER iSTAT creatinine panel Reason for Visit TELEHEALTH PALLIATIVE CONSULT 80 MIN Encounters Date Name 05/10/2025 TELEHEALTH PALLIATIV E CONSULT 80 MIN Diagnostic Results Date Type Test Units Lower Limit Upper Limit Result Flag Comments Status Ordered By Specimen Source Lab Address 03/28 Misc other lab See attache gomes Medications Date [...] Order PET/CT scan, sku ll base/mid thigh Luckey Ordered 02/02/2025 Physician Order REGIMEN CLEARANC E [...] of the usual indication-specific recommended dose. Ordered 02/02/2025 Physician Order Immunotherapy Monitoring For immune checkpoint inhibitors, the following tests are recommended by NCCN Guidelines at baseline and every 4-6 weeks (at minimum) during treatment:- CBC with differential, CMP, TSH, free T4- May also consider cortisol (AM preferred); oxygen saturation, chest x-ray, ECG and/or PFTs at baseline and as clinically indicated Ordered 02/02/2025 Physician Order Radiation therap y consult [facility] Ordered 02/02/2025 Physician Order RTC patient teaching RN Patient Teaching Visit Ordered 02/08/2025 Physician Order Consultation requested Tn dical Oncology for chemo/radiation at [facility]. Weekly Cisplatin and Q21 day Pembro with Radiation at [facility] Ordered 02/15/2025 Physician Order Port placement Order ed 02/16/2025 Physician Order Immunotherapy Monitoring For immune checkpoint inhibitors, the following tests are recommended by NCCN Guidelines at baseline and every 4-6 weeks (at minimum) during treatment:- CBC with differential, CMP, TSH, free T4- May also consider cortisol (AM preferred); oxygen saturation, chest x-ray, ECG and/or PFTs at baseline and as clinically indicated Ordered 02/16/2025 Physician Order REGIMEN CLEARANC E & [...] indication-specific recommended dose. Ordered 02/16/2025 Physician Order RTC HEAD INSULATION BOARD SAW OPERATOR/PA and infusion to start with RT - [...] at baseline and as clinically indicated Ordered 03/30/2025 Physician Order Immunotherapy Monitoring For [...] at baseline and as clinically indicated Ordered 04/27/2025 Physician Order Palliative care consult Pain ma nagement Ordered 05/11/2025 Physician Order Immunotherapy Monitoring For [...] Value Sex Female Visits Date Type Value 05/10/2025 TELEHEALTH PALLIATIVE CONSULT 80 MIN 04/27/2025 TELEHEALTH PALLIATIVE CONSULT 80 MIN Vital Signs Date Type Value 01/18/2025 Weight 154.00 01/18/2025 BSA 1.77 01/18/2025 BMI 25.71 01/18/2025 Height 64.90 Notes Section * PICKER/PULLER Onc Consult Note GYNECOLOGIC ONCOLOGY CONSULT Patient Name: ALYSSA PULIDO Patient : 1950 Patient Referring Physician: ? Primary GYNOncologist: Sarah Coto (Gynecological/Oncology) Date of Service: 02/02/2025 Reason for Consult: Cervical cancer? History of Present Illness (Duty Manager Oncology): Alyssa Pulido is a 74 year old female referred to [facility] with recent diagnosis of Stage BRICE squamous cell carcinoma of the cervix.? 01/05/25 Admitted to [facility]?with acute renal failure. CT showed worsening bilateral [...] empty nephrostomy tubes, working well.? Genetic Testing (Duty Manager Oncology): None Review of Systems: A complete 14-point review of systems is negative except as noted in the above history of present illness. Past Medical History: Hypertension Surgical History: Skin cancer excision? podopediatrician History: Never No history abnormal Paps but [...] , Weight:, BSA: , BMI: Physical Exam (Duty Manager Oncology): *Virtual visit*? Laboratory Data: None ? Imaging: As documented above? Problems: * Cervical mass * Cervical cancer Assessment & Plan (Duty Manager Oncology): Alyssa Pulido is a 74 year. [...] patient is located in their home, and Sarah Johnson am located in the [facility]. [...]
--- OUTSIDE RECORDS SUMMARY | 2025-04-27 15:03 | XMS_ITS | Clinical Summary ---
Author Organization Wide Limited Release [employer] Distribution [employer] [facility] Address [address] [place] [address] Care Team Providers Care Timing Inspector Name Role Phone Votel, Axel Thomas MD Primary Care Provider + [facility], [place] Unavailable Allergies No known active allergies Medications cholecalciferol (Vitamin D-3) 2,000 unit capsule Take 1 Capsule (2,000 units) by mouth once daily. 0 06/10/20 22 Active coenzyme q10 (Co Q-10) 100 mg cap Take 1 Capsule (100 mg) by mouth once daily. 0 06/10/20 22 Active miscellaneous medical supply (Blood Pressure Cuff) miscIndications:Es sential hypertension As directed. Home automatic blood pressure cuff. 1 Each 06/14/20 24 Active fish oil-omega-3 fatty acids (Fish OiL) 1,200-360 mg cap Take 1 Capsule by mouth two times daily. One capsule is 1200 mg-360 mg Active Non-Adherent Bandage 4 X 4 spgeIndications:Bi lateral hydronephrosis Apply topically to affected area(s). Apply around drain twice per week and as needed if dressing wet or loose. 100 Each 01/13/20 25 Active Adhesive Tape (Medipore H) 3 X 10 -yard tapeIndications:Bi lateral hydronephrosis Apply topically to affected area(s). 3 Each 01/13/20 25 Active acetaminophen 325 mg tabletIndications: Malignant neoplasm of cervix, unspecified site (HC) Take 2 Tablets (650 mg) by mouth every 4 hours if needed for Pain (For mild pain.). Max acetaminophen dose: 4000mg in 24 hrs. 180 Tablet 5 12:03 PM CDT 01/15/20 25 Active polyethylene glycoL 17 gram/scoop powderIndications: Malignant neoplasm of cervix, unspecified site (HC),Constipation, unspecified constipation type Mix 1 scoop (17 g) in 8 oz of liquid then take by mouth once daily if needed for Constipation. 238 g 5 12:03 PM CDT 01/15/20 25 Active carvediloL 25 mg tabletIndications: HTN (hypertension) Take 1 Tablet (25 mg) by mouth two times daily with meals. 180 Tablet 3 01/19/20 25 Active traZODone 50 mg tabletIndications: Insomnia, idiopathic Take 1 Tablet (50 mg) by mouth at bedtime. 31 Tablet 2 02/09/20 25 Active oxyCODONE 5 mg immediate release tabletIndications: Squamous cell carcinoma of cervix (HC) Take 1 Tablet (5 mg) by mouth every 4 hours if needed for Pain. 15 Tablet 02/19/20 25 Active prochlorperazine 10 mg tablet Take 10 mg by mouth every 6 hours if needed for Nausea/Vomiting. 02/22/20 25 Active OLANzapine 2.5 mg tablet Take 2.5 mg by mouth one time if needed for Sleep. 02/22/20 25 Active Active Problems Problem Noted Date Diagnosed Date Squamous cell carcinoma of cervix 02/09/2025 Uterine/cervical mass with c oncern for bladder and rectal invasion 01/14/2025 Hydroureteronephrosis 01/14/2025 MTHFR mutation 01/08/2025 Acute renal failure 01/06/2025 Renal duplicate collecting system, right 025 Fibroid uterus 01/06/2025 Acute anemia 01/06/2025 Bright [...] Encounters Date Type Department Care Team Description 04/27/2025 11:00 AM CDT Home Care Visit [facility] [address] [place] [phone] Krista Tmolinson RN SN - HOME VISIT 04/22/2025 9:00 AM CDT Home Care Visit [facility] [address] [place] [phone] Petra Carroll LPN ARCHITECTURAL DRAFTSMAN - HOME VISIT 04/19/2025 10:00 AM CDT Home Care Visit [facility] [address] [place] [phone] Krista Tomlinson RN SN - HOME VISIT 04/13/2025 10:00 AM CDT Home Care Visit [facility] [address] [place] [phone] Petra Carroll LPN ARCHITECTURAL DRAFTSMAN - HOME VISIT 04/07/2025 9:30 AM CDT Home Care Visit [facility] [address] [place] [phone] Krista Tomlinson RN SN - HOME VISIT 04/01/2025 11:00 AM CDT Home Care Visit [facility] [address] [place] [phone] Krista Tomlinson RN SN - HOME VISIT 03/31/2025 Telephone [facility] [address] [place] [address] TubLetty high 03/30/2025 Telephone [facility] [address] [place] [address] Tubah, Letty 03/24/2025 10:30 AM CDT Home Care Visit [facility] [address] [place] [phone] Krista Tomlinson RN SN - HOME VISIT 03/18/2025 12:30 PM CDT Home Care Visit [facility] [address] [place] [place] [address] Krista Tomlinson RN SN - HOME VISIT 03/18/2025 Home Care Visit [facility] [address] [place] [address], [place] [phone] Leonel Cuenca RN SN - WOUND/OSTOMY DC CONSULT 03/17/2025 Telephone [facility] [address] [place] [address] Krista Tomlinson RN Home Care 03/16/2025 2:30 PM CDT Office Visit [facility] [address] [place] [address] VoteAxel walter MD ER Follow up (Urine/kidney concerns) 03/15/2025 11:00 AM CDT Home Care Visit [facility] [address] [place] [phone] Krista Tomlinson RN SN - OASIS RECERTIFICATION 03/15/2025 Plan of Care Documentation [facility] [address] [place] [phone] 03/15/2025 Travel 03/14/2025 Telephone [facility] [address] [place] [address] VoteAxel walter MD Results 03/11/2025 Orders Only [facility] [address] [place] [address] Axel Palomo MD <No scans attached> 03/10/2025 11:00 AM CDT Home Care Visit [facility] [address] [place] [phone] Krista Tomlinson RN SN - LONG VISIT (>90 MINUTES) 03/10/2025 Orders Only [facility] [address] [facility] [place] [id number] Axel Palomo MD Lab 03/08/2025 3:00 PM CDT Home Care Visit [facility] [address] [place] [address] Yudelka Soto, RN SN - HOME VISIT 03/08/2025 Telephone [facility] [address] [facility] [place] [address] Yudelka Soto, postie (Patient Update) 03/04/2025 11:00 AM CDT Home Care Visit [facility] [address] [place] [address] Shannan Garcia RN SN - HOME VISIT 03/04/2025 Refill [facility] [address] [place] [address] Axel Palomo MD Refill Request (Trazodone 50mg) 03/01/2025 1:00 PM CDT Home Care Visit [facility] [address] [place] [address] Shannan Garcia, DUYEN SN - HOME VISIT 02/26/2025 Home Care Visit [facility] [address] [place] [phone] Shannan Garcia, DUYEN CARE COORDINATION 02/25/2025 12:00 PM CDT Home Care Visit [facility] [address] [place] [phone] Petra Carroll LPN ARCHITECTURAL DRAFTSMAN - HOME VISIT 02/23/2025 Home Care Visit [facility] [address] [place] [phone] Shannan Garcia, DUYEN CARE COORDINATION 02/22/2025 1:00 PM CDT Home Care Visit [facility] [address] [place] [phone] Yudelka Soto, RN SN - LONG VISIT (>90 MINUTES) 02/22/2025 Telephone [facility] [address] [place] [address] Axel Palomo MD Follow Up (Neph tube care/replacement) 02/18/2025 12:30 PM CDT Home Care Visit [facility] [address] [place] [place] [address] Petra Carroll LPN ARCHITECTURAL DRAFTSMAN - HOME VISIT 02/18/2025 Refill [facility] [address] [place] [address] Axel Palomo MD Refill Request (Needs Rx sent to alternate pharmacy location ) 02/17/2025 Orders Only [facility] [address] [place] [address] Axel Palomo MD <No scans attached> 02/15/2025 8:00 AM CDT Home Care Visit [facility] [address] [place] [place] [address] Abbie Wan RN SN - WOUND/OSTOMY CHART CONSULT 02/15/2025 Orders Only [facility] Scanner 1 scan: (1-Ord) [facility], RT INTERNAL JUGULAR PORT A CATHETER PLACEMENT, 02/15/2025 02/15/2025 Orders Only [facility] Scanner 1 scan: (1-Ord) [facility], XR CHEST 1V, 02/15/2025 02/13/2025 12:00 PM CDT Home Care Visit [facility] [address] [place] [place] [address] Shannan Garcia RN SN - HOME VISIT 02/12/2025 Travel 02/11/2025 10:00 AM CDT Home Care Visit [facility] [address] [facility] [place] [address] Shannan Garcia RN SN - HOME VISIT 02/11/2025 8:45 AM CDT Home Care Visit [facility] [address] [place] [place] [address] Leonel Cuenca, RN SN - WOUND/OSTOMY CHART CONSULT 02/09/2025 1:25 PM CDT Office Visit [facility] [address] [place] [address] Jorge Luis Cortez, Preoperative Exam (port insertion on 02/[address] Casillas) 02/09/2025 Travel 02/09/2025 Telephone [facility] [address] [place] [address] Ludmila Casillas MD Surgery Scheduled (Need order for port placement) 02/07/2025 10:00 AM CDT Home Care Visit [facility] [address] [place] [address] Shannan Garcia, RN SN - LONG VISIT (>90 MINUTES) 02/07/2025 Orders Only [facility] [address] [place] [address] Judith Heath PA Lab 02/07/2025 Telephone [facility] [address] [place] [address] Shannan Garcia, DUYEN UTI; Home Care 02/07/2025 Telephone [facility] [address] [place] [address] Shannan Garcia, RN Sleep Problem; Home Care 02/04/2025 8:00 AM CDT Home Care Visit [facility] [address] [place] [address] Shannan Garcia, RN SN - HOME VISIT 02/04/2025 Transcribe Orders [facility] [place] [facility] [place] [address] [place] [address] Sarah Coto MD 01/31/2025 8:30 AM CDT Home Care Visit [facility] [address] [place] [phone] Shannan Garcia, RN SN - HOME VISIT 01/28/2025 9:00 AM CDT Home Care Visit [facility] [address] [place] [phone] Shannan Garcia RN SN - HOME VISIT 01/28/2025 Nurse Triage [facility] [address] [place] [address] Axel Palomo MD Urostomy 01/28/2025 Nurse Triage [facility] [address] [place] [address] Axel Palomo MD Error-please disregard 01/27/2025 Orders Only [facility] Scanner 1 scan: (1-Ord) [facility], PET SKULL TO MID THIGH, 01/27/2025 01/25/2025 8:00 AM CDT Home Care Visit [facility] [address] [place] [phone] Shannan Garcia RN SN - HOME VISIT from Last 3 Months Family History Medical [...] on file 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 Gender Identity Not on file Sexual Orientation Not on file Obstetrics History Para Term AB IAB SAB Ectopic Multiple Livin g Live Births 0 0 0 0 0 0 0 0 0 0 0 Last Filed Vital Signs Vital Sign Reading Time Taken Comments Blood Pressure 158/78 04/27/2025 11:30 AM CDT Pulse 91 04/27/2025 11:30 AM CDT Temperature 37.1 C (98.8 F) 04/27/2025 11:30 AM CDT Respiratory Rate 16 04/27/2025 11:30 AM CDT Oxygen Saturation 100% 04/27/2025 11:30 AM CDT Inhaled Oxygen Concentration - - Weight 68 kg (150 lb) 03/16/2025 2:22 PM CDT Height 165.1 cm (5' 5) 01/16/2025 11:14 AM CDT Body Mass Index 24.96 01/16/2025 11:14 AM CDT Plan of Treatment Upcoming Encounters Date Type Department Care Team (Late st Contact Info) Description 05/03/2025 10:30 AM CDT Home Care Visit [facility] [address] [place] [phone] Krista Tomlinson, DUYEN 05/06/2025 4:00 AM CDT Home Care Visit [facility] [address] [place] [phone] Krista Tomlinson, RN 05/10/2025 4:00 AM CDT Home Care Visit [facility] [address] [place] [place] [address] Krista Tomlinson, RN 05/13/2025 4:00 AM CDT Appointment [facility] [address] [place] [place] [address] Krista Tomlinson, RN Health Maintenance Due Date Last Done Comments Tetanus booster 1960 Pneumococcal series for age 50+ (1 of 2 - PCV) 1968 Zoster (shingles) series for age 50+ (1 of 2) 1968 DEXA/DXA scan for age 65+ 2014 COVID-19 vaccine series ( season) 2024 07/02/2023, 07/26/2021, 01/02/2021, Additional history exists Depression screening for age 12+ 06/12/2024 06/12/2023, 05/21/2021, 05/03/2020, Additional history exists RSV vaccine for adults or (1 - 1-dose 75+ series) 2024 Influenza Vaccine (#1) 2025 Medicare Wellness for age 65+ 06/15/2025 06/14/2024, 06/12/2023, 06/10/2022, Additional history exists Fecal testing sDNA-FIT (Cologuard) for age 45-75 06/18/2025 06/18/2022 BMI (ht and wt on same day) for age 18+ 10/14/2025 10/14/2024, 09/30/2024, 09/09/2024, Additional history exists Lipids for age 45-75 01/18/2030 01/18/2025, 09/09/2024, 06/10/2024, Additional history exists Hepatitis C screening for age 18-79 Completed 06/11/2023 Hepatitis B series for 19+ Aged Out N o longer eligible based on patient's age to complete this topic Procedures Procedure Name Priority Date/Time Associated Diagnosis Comments URINALYSIS MICROSCOPIC Routine 03/10/2025 11:50 AM CDT Nephrostomy complication URINE CULTURE Routine 03/10/2025 11:50 AM CDT Nephrostomy complication UA W/ SEDIMENT EXAM REFLEXED PER CRITERIA Routine 03/10/2025 11:50 AM CDT Nephrostomy complication SCAN-RADIOLOGY REPORT 02/15/2025 12:00 AM CDT SCAN-OPERATIVE/PRO CEDURE REPORT 02/15/2025 12:00 AM CDT URINALYSIS MICROSCOPIC Routine 02/07/2025 2:30 PM CDT Hydroureteronephrosis URINE CULTURE Routine 02/07/2025 2:30 PM CDT Hydroureteronephrosis UA W/ SEDIMENT EXAM REFLEXED PER CRITERIA Routine 02/07/2025 2:30 PM CDT Hydroureteronephrosis SCAN-PET SCAN 01/27/2025 12:00 AM CDT LIPID PANEL W REFLEX MEASURED LDL Routine 01/18/2025 2:53 PM CDT Pure hypercholesterolemia ANTI HCV Routine 06/11/2023 12:43 PM CDT Need for hepatitis C screening test SDNA-FIT EXTERNAL (COLOGUARD) Routine 06/18/2022 5:30 AM CDT Screening for colon cancer from Last 3 Months or Most Recently Relevant to Health Maintenance Results * (ABNORMAL) URINALYSIS MICROSCOPIC (03/10/2025 11:50 AM CDT) Only the most recent of2 resultswithin the time period is included. RBC 26-50(A) 0-2, None Seen /HPF 03/10/2025 12:36 PM CDT [facility] WBC >100(A) 0-2, 3-5, None Seen /HPF 03/10/2025 12:36 PM CDT [facility] BACTERIA Many(A) None Seen, Rare, Few Bacteria/ HPF 03/10/2025 12:36 PM CDT [facility] EPITHELIAL CELLS None Seen None Seen, Few Epi/HPF 03/10/2025 12:36 PM CDT [facility] WHITE CELL CLUMPS Present(A) (none) 03/10/2025 12:36 PM CDT [facility] Urine URINE SPECIMEN / Unknown Non-Blood / Unknown 03/10/2025 11:50 AM CDT 03/10/2025 12:27 PM CDT us Axel Palomo MD URINE Final Re sult Performing Organization Address City/[facility]/ZIP Co de Phone Number [facility] [address] [place] [address] * (ABNORMAL) URINE CULTURE (03/10/2025 11:50 AM CDT) Only the most recent of2 resultswithin the time period is included. CULTURE RESULT(A) 03/12/2025 7:59 AM CDT [facility] CULTURE >100,000 CFU/mL Pseudomonas aeruginosa 03/12/2025 7:59 AM CDT [facility] Urine URINE SPECIMEN / Unknown Non-Blood / Unknown 03/10/2025 11:50 AM CDT 03/10/2025 12:27 PM CDT Narrative Organism Antibiotic Method Susceptibility Pseudomonas aeruginosa CEFTAZIDIME 4: S Pseudomonas aeruginosa LEVOFLOXACIN 4: R Pseudomonas aeruginosa CIPROFLOXACIN 2: R Pseudomonas aeruginosa PIPERACILLIN/TAZO 16: S Pseudomonas aeruginosa CEFEPIME 2: S Pseudomonas aeruginosa MEROPENEM 0.5: S us Axel Palomo MD MICROBIOLOGY Final Re sult [facility] [address] [place] [address], [place] * (ABNORMAL) UA W/ SEDIMENT EXAM REFLEXED PER CRITERIA (03/10/2025 11:50 AM CDT) Only the most recent of2 resultswithin the time period is included. COLOR Yellow Yellow Color 03/10/2025 12:36 PM [facility] CLARITY Cloudy(A) Clear Clarity 03/10/2025 12:36 PM [facility] SPECIFIC GRAVITY,URINE 1.010 1.010, 1.015, 1.020, 1.025 03/10/2025 12:36 PM [facility] PH,URINE 7.0 6.0, 7.0, 8.0, 5.5, 6.5, 7.5, 8.5 03/10/2025 12:36 PM [facility] UROBILINOGEN, QUALITATIVE Normal Normal EU/dl 03/10/2025 12:36 PM [facility] PROTEIN, URINE >=300(A) Negative mg/dL 03/10/2025 12:36 PM [facility] GLUCOSE, URINE Negative Negative mg/dL 03/10/2025 12:36 PM [facility] KETONES,URINE Negative Negative mg/dL 03/10/2025 12:36 PM [facility] BILIRUBIN,URI NE Negative Negative 03/10/2025 12:36 PM [facility] OCCULT BLOOD,URINE Large(A) Negative 03/10/2025 12:36 PM [facility] NITRITE Positive(A) Negative 03/10/2025 12:36 PM [facility] LEUKOCYTE ESTERASE Moderate(A) Negative 03/10/2025 12:36 PM [facility] Urine URINE SPECIMEN / Unknown Non-Blood / Unknown 03/10/2025 11:50 AM CDT 03/10/2025 12:27 PM CDT us Axel Palomo MD URINE Final Re sult [facility] [address] [place] [address] * SCAN-RADIOLOGY REPORT (02/15/2025 12:00 AM CDT) Anatomical Region Laterality Modality Other us Scanner OTHER Final Result * SCAN-OPERATIVE/PROCEDURE REPORT (02/15/2025 12:00 AM CDT) us Scanner OTHER Final Result * SCAN-PET SCAN (01/27/2025 12:00 AM CDT) Anatomical Region Laterality Modality Other us Scanner OTHER Final Result * (ABNORMAL) LIPID PANEL W REFLEX MEASURED LDL (01/18/2025 2:53 PM CDT) CHOLESTEROL, TOTAL 275(H) <200 mg/dL Iddictione HDL CHOLESTEROL 53 > OR = 50 mg/dL Fullscreen TRIGLYCERIDES 137 <150 mg/dL Fullscreen LDL-CHOLESTEROL 193(H) mg/dL (calc) Fullscreen Comment: LDL-C levels > or = 190 [...] about testing for familial hypercholesterolemia, please call [facility] at [phone]. Deuce Phillips, et al. J National Lipid Association Recommendations for Patient-Centered Management of Dyslipidemia: Part 1 Journal of Clinical Lipidology 2015;9(2), 129-169. Bill Giraldo et al. (2014). Homozygous familial hypercholesterolaemia: new insights and guidance for clinicians to improve detection and clinical management. Heart Journal, 35(32), 7356-6985. Reference range: <100 Desirable range <100 mg/dL for primary prevention; <70 mg/dL for patients with CHD or diabetic patients with > or = 2 CHD risk factors. LDL-C is now calculated using the Priyank calculation, which is a validated novel method providing better accuracy than the Friedewald equation in the estimation of LDL-C. Greyson HUBBARD et al. CAPRICE. 2013;310(19): 4888-9919 (http://education.[employer]/faq/CHJ327) CHOL/HDLC RATIO 5.2(H) <5.0 (calc) [employer] [facility] NON HDL CHOLESTEROL 222(H) <130 mg/dL (calc) [facility] Comment: Non-HDL level > or = 220 [...] CHEMISTRY Final Re sult Performing Organization Address City/[facility]/ZIP Co de Phone Number [employer] [facility] [address] [place] [address], [facility] [address] * ANTI HCV (06/11/2023 12:43 PM CDT) Pathologist [facility] HEPATITIS C ANTIBODY Non-Reacti ve Non-React paresh 06/12/2023 9:16 AM CDT [facility] Comment:Please note, per www .CDC.gov: [...] Andrade DO SEND OUTS Final Resu lt [facility] SENDOUT INTERNAL ZIP [phone] [place] [address] * SDNA-FIT EXTERNAL (COLOGUARD) (06/18/2022 5:30 AM CDT) NONINV COLON CA DNA+OCC BLD SCRN STL-IMP Negative Negative 06/22/2022 8:52 AM CDT [facility] (CLIA #:[id number]) Comment: NEGATIVE TEST RESULT. A negative Cologuard [...] screened with both Cologuard and colonoscopy. (Timmy Phillips. et al, N Engl J Med 2014;370(14):0066-5987) The normal value (reference range) for this assay is negative. COLOGUARD RE-SCREENING RECOMMENDATION: Periodic colorectal cancer screening is an important part of preventive healthcare for asymptomatic individuals at average risk for colorectal cancer. Following a negative Cologuard result, the [place] Cancer Society and U.S. Multi-Society Task Force screening guidelines recommend a Cologuard re-screening interval of 3 years. References: [place] [employer] Guideline for Colorectal Cancer Screening: https://www.cancer.org/cancer/zvzqd-kuhfvd-xdfcjj/akybjwxhz-nndjtkqvp-zwxwhip/ac s-rec ommendations.html.; Fidel DK, Joann CR, Maribell McneilK, Colorectal Cancer Screening: Recommendations for Physicians and Patients from the U.S. Multi-Society Task Force on Colorectal Cancer Screening , Am J Gastroenterology 2017; 112:7588-6369. TEST DESCRIPTION: Composite algorithmic analysis of stool [...] (Timmy Judge al, N Engl J Med 2014;370(14):3637-4317.) Cologuard may produce a false negative or false positive result (no colorectal cancer or precancerous polyp present at colonoscopy follow up). A negative Cologuard test result does not guarantee the absence of CRC or advanced adenoma (pre-cancer). The current Cologuard screening interval is every 3 years. ([place] Cancer Society and U.S. Multi-Society Task Force). Cologuard performance data in a 10,000 patient pivotal study using colonoscopy as the reference method can be accessed at the following location: www.CloudTran/results. Additional description of the Cologuard test process, warnings and precautions can be found at www.[employer] Med[employer].com. Stool specimen (specimen) (Rectum) 06/18/2022 5:30 AM CDT 06/19/2022 11:50 AM CDT Marivel Andrade DO URINE Final Resu lt [facility] (CLIA #:[id number]) [address] 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
--- OUTSIDE RECORDS SUMMARY | 2025-04-27 15:03 | XMS_ITS | Encounter Summary ---
Author Organization [facility] Address [address] [place] [id number] Care Team Providers Care Watch Commander Name Role Phone Unavailable Primary Care Provider Unavailabl e Reason for Referral * Radiation Therapy (Routine) - Authorized Specialty Diagnoses / Procedures Referred By Pastora piedra Referred To Contact Diagnoses Malignant Neoplasm Of Cervix (HCC) Procedures Brachytherapy HDR Meme Cunningham M.D. [address] [place] [phone] Phone: tel: fax: [facility] Referral ID Status Reason Start Date Expiration Date V isits Requested Visits Authorized [id number] Authorized 03/03/2025 06/03/2026 5 5 Encounter Details Date Type Department Care Team (Late st Contact Info) Description 03/03/2025 Orders Only Department of Radiation Oncology in [place], [place] [address] [place] [phone] Marcy Pink APRN, C.N.P., D.N.P. [address] [place] [phone] Malignant Neoplasm Of Cervix (HCC) (Primary Dx) Social History Tobacco Use Types Packs/Day Years Used Date Smoking Tobacco: Never Smokeless Tobacco: Never Alcohol Use Standard Drinks/Week Comments Yes 0 (1 standard drink = 0.6 oz pur e alcohol) [facility] Utilities Answer Date Recorded In [...] living situation today? 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 [address] [place] [phone] 04/29/2025 10:00 AM CDT Appointment Department of Radiology, [facility], in [place], [place] [address] [place] [phone] Jessie Borden APRN, C.N.P., D.N.P. [address] [place] [phone] documented as of this encounter Results * Brachytherapy HDR (04/11/2025 8:15 AM CDT) N[facility]ative [facility] - 04/11/2025 8:15 AM CDT Meme Cunningham M.D. 04/11/2025 4:55 PM Brachytherapy HDR Performed by: Sarath Funez M.D. Authorized by: Meme Cunningham M.D. Care team members present 1. Meme Cunningham M.D. 2. Candi Bustillos, KIERAN 3. Sarath Funez M.D. PROCEDURE DETAILS Brachytherapy: Gynecologic brachytherapy Type: high dose rate Treatment Sites: Vaginal cuff Applicator(s): [place] cylinder and interstitial needles Brachytherapy Fraction Number: [...] the uterus. A 3.5 cm multi-channel interstitial [place] Cylinder was inserted into the vagina over [...] produced. The patient was treated with the EyeJot afterloading device and received 700 cGy to [...] LUIS FELIPE HOLDEN na * Brachytherapy HDR (04/06/2025 7:45 AM CDT) [...] the uterus. A 3.5 cm multi-channel interstitial [place] Cylinder was inserted into the vagina over [...] produced. The patient was treated with the EyeJot afterloading device and received 700 cGy to [...] She will continue with EBRT as scheduled. us Meme Cunningham M.D. RADIATION ONCOLOGY ORDERABL ES Final Result LUIS FELIPE HOLDEN na * Brachytherapy HDR (04/04/2025 8:30 AM CDT) Narrative LUIS FELIPE HOLDEN - 04/04/2025 8:30 AM CDT Meme Cunningham M.D. 04/04/2025 2:10 PM Brachytherapy HDR Performed by: Sarath Funez M.D. Authorized by: Meme Cunningham M.D. Care team members present 1. Meme Cunningham M.D. 3. Sarath Funez M.D. PROCEDURE DETAILS Brachytherapy: Gynecologic brachytherapy Type: high dose rate Applicator(s): [place] applicator and interstitial needles Brachytherapy Fraction Number: [...] into the bladder. Transabdominal ultrasound placed by radiology rn to visual sound/tandem placement. We were unable [...] the uterus. A 3.5 cm multi-channel interstitial [place] Cylinder was inserted into the vagina over [...] produced. The patient was treated with the EyeJot afterloading device and received 700 cGy to [...] She will continue with EBRT as scheduled. us Meme E Garda M.D. RADIATION ONCOLOGY ORDERABL ES Final Result LUIS FELIPE HODLEN na * Brachytherapy HDR (03/30/2025 7:45 AM CDT) Narrative LUIS FELIPE HOLDEN - 03/30/2025 7:45 AM CDT Meme Cunningham M.D. 03/31/2025 9:07 AM Brachytherapy HDR Performed by: Sarath Funez M.D. Authorized by: Meme Cunningham M.D. Care team members present 1. Meme Cunningham M.D. 3. Sarath Funez M.D. PROCEDURE DETAILS Brachytherapy: Gynecologic brachytherapy Type: high dose rate Applicator(s): [place] cylinder and interstitial needles (tandem) Number of [...] the uterus. A 3.5 cm multi-channel interstitial [place] Cylinder was inserted into the vagina over [...] produced. The patient was treated with the EyeJot afterloading device and received 700 cGy to [...] will be done with transabdominal ultrasound guidance. us Meme Cunningham M.D. RADIATION ONCOLOGY ORDERABL ES Final Result LUIS FELIPE sheffield documented in this encounter Visit Diagnoses Diagnosis Malignant Neoplasm Of Cervix (HCC)- Primary Malignant Neoplasm Of Cervix (HCC)- Primary Malignant Neoplasm Of Cervix (HCC) Malignant Neoplasm Of Cervix (HCC) Malignant Neoplasm Of Cervix (HCC) documented in this encounter
--- OUTSIDE RECORDS SUMMARY | 2025-04-27 15:03 | XMS_ITS | CCD ---
Author Name Interface, [id number] lity Address [address] [facility] [address] [address] [facility] Address [address] [facility] [address] [address] Care Team Providers Care Dramatic Agent Name Role Phone Chica PALMA, Sarah Gallegos [...] Order PET/CT scan, sku ll base/mid thigh [place] Ordered 02/02/2025 Physician Order REGIMEN CLEARANC E [...] 02/02/2025 Physician Order Radiation therap y consult [facility] Ordered 02/02/2025 Physician Order RTC patient teaching RN Patient Teaching Visit Ordered 02/08/2025 Physician Order Consultation requested [place] dical Oncology for [place] [facility] [place] [facility] [place]. Weekly Cisplatin and Q21 day Pembro with Radiation at [facility] Ordered 02/15/2025 Physician Order Port placement [...] clinically indicated Ordered 02/16/2025 Physician Order RTC MANAGER RETENTION/PA and infusion to start with RT - Cisplatin Keytruda Ordered 02/16/2025 Physician Order REGIMEN CLEARANC E [...] of the usual indication-specific recommended dose. Ordered 03/09/2025 Physician Order Immunotherapy Monitoring For [...] 25.71 01/18/2025 Height 64.90 Notes Section * MARKETING SUPPORT MANAGER Onc Consult Note GYNECOLOGIC ONCOLOGY CONSULT Patient Name: ALYSSA PULIDO Patient : 1950 Patient Referring Physician: ? Primary GYNOncologist: Sarah Coto (Gynecological/Oncology) Date of Service: 02/02/2025 Reason for Consult: Cervical cancer? History of Present Illness (Supervisor Harvesting Oncology): Alyssa Pulido is a 74 year old female referred to [place] [facility] with recent diagnosis of Stage BRICE squamous [...] empty nephrostomy tubes, working well.? Genetic Testing (Supervisor Harvesting Oncology): None Review of Systems: A complete 14-point review of systems is negative except as noted in the above history of present illness. Past Medical History: Hypertension Surgical History: Skin cancer excision? mail reader History: Never No history abnormal Paps but [...] , Weight:, BSA: , BMI: Physical Exam (Supervisor Harvesting Oncology): *Virtual visit*? Laboratory Data: None ? Imaging: As documented above? Problems: * Cervical mass * Cervical cancer Assessment & Plan (Supervisor Harvesting Oncology): Alyssa Pulido is a 74 year. [...] and Sarah Johnson am located in the [facility]. The visit length was: 22 [...] none found; Vaping : none found Sarah oCto MD Copy to: ? Electronically signed by Sarah Coto MD 02/02/2025 09:27 CDT
--- NOTE | 2025-04-27 15:41 | CRLHL7_ITS ---
For Patients: As a result of the Century Cures Act, medical imaging exams and procedure reports are released immediately into your electronic medical record. You may view this report before your referring provider. If you have questions, please contact your health care provider. INDICATION: Shortness of breath. Review of the patient`s medical record is notable for a history of cervical cancer. COMPARISON: None available. TECHNIQUE: PA and lateral views of the chest (3 images). FINDINGS: Medical Devices: Right-sided implantable port. Catheter tip is at the level of the mid superior vena cava. Tandem locking loop catheters are superimposed upon the posterior aspect of the right upper quadrant consistent with percutaneous nephrostomy tubes trauma for example in this patient with a history of cervical cancer. A 3rd pigtail catheter is also noted on the lateral view. Lung Volumes: Adequate inspiration. No significant atelectasis. Lungs: Clear lungs. Pleura and Pleural spaces: Small right posterior pleural effusion. No pneumothorax. Mediastinum: Normal cardiomediastinal silhouette. Bony Thorax and Soft Tissues: No significant incidental findings. 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 IMPRESSION: No findings to explain the clinical history of shortness of breath. Incidental findings described in the body of the report. Dictated by Juliano Rudolph MD @ 04/27/2025 5:42:39 PM (Electronically Signed)
[2025-04-27 16:07] LABS: Lactate* 1.1 mmol/L (0.5-1.9)
--- OUTSIDE RECORDS SUMMARY | 2025-04-27 16:08 | XMS_ITS | CCD ---
Author Name Interface, [id number] lity Address [address] [facility] [address] [address] [facility] Address [address] [facility] [address] [address] Care Team Providers Care Field Producer Name Role Phone Chica PALMA, Sarah Gallegos [...] Order PET/CT scan, sku ll base/mid thigh [place] Ordered 02/02/2025 Physician Order REGIMEN CLEARANC E [...] 02/02/2025 Physician Order Radiation therap y consult [facility] Ordered 02/02/2025 Physician Order RTC patient teaching RN Patient Teaching Visit Ordered 02/08/2025 Physician Order Consultation requested Sc dical Oncology for chemo/radiation at [facility]. Weekly Cisplatin and Q21 day Pembro with Radiation at [facility] Ordered 02/15/2025 Physician Order Port placement Order [...] recommended dose. 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 Primary GYNOncologist: Sarah Coto (Gynecological/Oncology) Date of Service: 02/02/2025 Reason for Consult: Cervical cancer? History of Present Illness (Phlebotomy Services Technician Oncology): Alyssa Pulido is a 74 year old female referred to [place] [facility] with recent diagnosis of Stage BRICE squamous [...] empty nephrostomy tubes, working well.? Genetic Testing (Phlebotomy Services Technician Oncology): None Review of Systems: A complete 14-point review of systems is negative except as noted in the above history of present illness. Past Medical History: Hypertension Surgical History: Skin cancer excision? 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 Laboratory Data: None ? Imaging: As documented above? Problems: * Cervical mass * Cervical cancer Assessment & Plan (Phlebotomy Services Technician Oncology): Alyssa Pulido is a 74 year. [...] and Sarah Johnson am located in the [facility] [place] [facility]. The visit length was: 22 [...]
--- NOTE | 2025-04-27 16:09 | ED.GENADULT ---
HPI - General Adult General Chief complaint: Weakness Stated complaint: Weakness Time Seen by Provider: 04/27/25 15:04 Source: patient and family Mode of arrival: ambulatory Limitations: no limitations History of Present Illness HPI narrative: 74-year-old female presenting today not feeling well. Patient has a history of cervical cancer, has bilateral nephrostomy tubes secondary to bilateral hydronephrosis secondary to cervical mass, nephrostomy tubes placed in December of this year. Patient underwent chemo, radiation and immunotherapy. Concluded her therapy at the end of March but will continue with immunotherapy according to the patient. States that she had her nephrostomy bandages changed today and felt very fatigued afterwards. She took a nap which is not unusual for her when she woke up she did not feel any better. She stated that she felt very cold and required an extra blanket on her sister, Fabiana, noted that the patient was shaking. Sister also noted that the patient is little more confused than her baseline. She has been forgetful today, trailing off in the middle of sentences which is unusual for her. She did not have a measured temperature at home, felt somewhat nauseated but did not vomit. No diarrhea or constipation. No changes in the color of the urine coming from the nephrostomy tubes. She denies coughing, abdominal pain or chest pain. She denies any rashes. Does not have a headache. Related Data Home Medications ?Medication ?Instructions ?Recorded ?Confirmed carvedilol 12.5 mg tablet 25 mg PO BID 01/22/25 04/12/25 coenzyme Q10 100 mg capsule (Co 100 mg PO DAILY 02/10/25 04/12/25 Q-10) omega-3 fatty acids-fish oil 360 1 cap PO DAILY 02/10/25 04/12/25 mg-1,200 mg capsule ascorbate calcium (vitamin C) 500 500 mg PO QDAY 02/17/25 04/12/25 mg tablet prochlorperazine maleate 10 mg 10 mg PO Q6H PRN nausea 02/21/25 04/12/25 tablet loperamide 2 mg capsule (Imodium 2 mg PO QID PRN 03/07/25 04/12/25 A-D) polyethylene glycol 3350 17 17 g PO DAILY PRN 03/07/25 04/12/25 gram/dose oral powder (Miralax) olanzapine 2.5 mg tablet 2.5 mg PO QPM PRN 03/14/25 04/12/25 trazodone 50 mg tablet 50 mg PO QHS 03/14/25 04/12/25 Allergies Allergy/AdvReac Type Severity Reaction Status Date / Time Iodinated Contrast Media AdvReac Severe Verified 04/27/25 15:02 Review of Systems Status of ROS: Reports: 10 or more systems reviewed and unremarkable except as noted in History and below [facility] Medical History [place] (acute kidney injury) ?N17.9 - Acute kidney failure, unspecified (ICD-10) Ureteral obstruction ?N13.5 - Crossing vessel and stricture of ureter without hydronephrosis (ICD-10) Squamous cell carcinoma of cervix ?C53.9 - Malignant neoplasm of cervix uteri, unspecified (ICD-10) Hyponatremia ?E87.1 - Hypo-osmolality and hyponatremia (ICD-10) Pure hypercholesterolemia ?E78.00 - Pure hypercholesterolemia, unspecified (ICD-10) Essential hypertension ?I10 - Essential (primary) hypertension (ICD-10) Surgical History H/O insertion of nephrostomy tube ?Z98.890 - Other specified postprocedural states (ICD-10) Social History Smoking Status: Never smoker How often do you have a drink containing alcohol: never AUDIT-C Alcohol total score: 0 Non-prescribed substance use: denies use Caffeine: Yes (1c/day) Are you using contraception or practicing any form of control: No service: No Exam Narrative: Exam Narrative: Well-nourished well-developed elderly patient in no acute distress. Alert and oriented x3. Answers questions appropriately but slowly. Mood and affect are appropriate. Thoughts are goal oriented and rational. Patient speaks in full sentences and not leaving the catch her breath. She does trail off in the middle of sentences every now and then. When you bring her attention to it she is able to finish a sentence. HEENT: Normocephalic atraumatic. Pupils are equally round reactive to light. Extraocular muscles are intact. Conjunctivae are moist without any icterus noted. Moist mucous membranes. Cardiovascular: Heart is regular rate and rhythm. Lungs: Clear to auscultation bilaterally no wheezes rhonchi or rales are appreciated. Patient takes deep breaths without any discomfort. Abdomen: Soft and nontender nondistended with normal bowel sounds. No guarding or rebound. Extremities: Bilateral lower extremities are without edema. Normal DP and PT pulses. Skin: Well perfused without any obvious rashes. Back: Normal appearance. Nephrostomy tubes in place bilaterally. Const: Vital Signs, click to edit/add: Vital Signs - 24 hr 04/27/25 15:11 04/27/25 15:13 04/27/25 15:15 Temperature 99.3 F Pulse Rate 112 H 108 H Pulse Rate [Pulse Oximeter] 108 H Respiratory Rate 16 Blood Pressure Blood Pressure [Ri ght Upper Arm] 135/69 Pulse Oximetry 94 93 95 Oxygen Delivery Me thod Room Air 04/27/25 15:17 04/27/25 15:18 04/27/25 15:27 Temperature 101.1 F H Pulse Rate 112 H 111 H Pulse Rate [Pulse Oximeter] Respiratory Rate Blood Pressure 122/66 Blood Pressure [Ri ght Upper Arm] Pulse Oximetry 94 93 Oxygen Delivery Me thod 04/27/25 15:30 04/27/25 15:31 04/27/25 15:45 Temperature Pulse Rate 111 H 112 H 114 H Pulse Rate [Pulse Oximeter] Respiratory Rate 14 20 Blood Pressure 123/66 Blood Pressure [Ri ght Upper Arm] Pulse Oximetry 93 94 92 Oxygen Delivery Me thod 04/27/25 15:46 04/27/25 16:00 04/27/25 16:04 Temperature Pulse Rate 113 H 111 H 110 H Pulse Rate [Pulse Oximeter] Respiratory Rate 16 Blood Pressure 121/69 Blood Pressure [Ri ght Upper Arm] Pulse Oximetry 93 92 93 Oxygen Delivery Me thod 04/27/25 16:15 04/27/25 16:15 04/27/25 16:32 Temperature 101.1 F H Pulse Rate 109 H 107 H Pulse Rate [Pulse Oximeter] Respiratory Rate 16 Blood Pressure Blood Pressure [Ri ght Upper Arm] Pulse Oximetry 94 95 Oxygen Delivery Me thod 04/27/25 16:33 04/27/25 16:45 04/27/25 16:46 Temperature Pulse Rate 108 H 106 H 105 H Pulse Rate [Pulse Oximeter] Respiratory Rate 20 21 16 Blood Pressure 111/70 120/67 Blood Pressure [Ri ght Upper Arm] Pulse Oximetry 96 96 95 Oxygen Delivery Me thod 04/27/25 16:47 04/27/25 17:00 04/27/25 17:01 Temperature Pulse Rate 104 H 103 H 103 H Pulse Rate [Pulse Oximeter] Respiratory Rate 21 16 Blood Pressure 105/61 Blood Pressure [Ri ght Upper Arm] Pulse Oximetry 96 95 95 Oxygen Delivery [place] thod 04/27/25 17:15 04/27/25 17:30 04/27/25 17:31 Temperature Pulse Rate 102 H Pulse Rate [Pulse Oximeter] Respiratory Rate 18 19 Blood Pressure 99/61 Blood Pressure [Ri ght Upper Arm] Pulse Oximetry 96 Oxygen Delivery [place] thod 04/27/25 18:02 Temperature Pulse Rate Pulse Rate [Pulse Oximeter] Respiratory Rate 16 Blood Pressure 93/57 L Blood Pressure [Ri ght Upper Arm] Pulse Oximetry Oxygen Delivery Me thod Course Course ED Course: IV established and labs were drawn, blood cultures drawn. Patient was given a dose of Tylenol and started on 250 mL of normal saline over an hour. EKG, read by me, shows sinus tachycardia with a pulse of 112, left axis deviation. CBC shows a white cell count of 8.6 which is elevated from her usual leukocytopenia. Hemoglobin 9.5, platelet count 189. Sodium is low at 131. Normal lactate. CRP elevated at 2.3. Procalcitonin elevated at 0.7. Urine sample is contaminated however he looks turbid, with 3+ protein and 2+ blood, 3+ leukocyte esterase with 10-25 RBCs and 10-25 wbc's. At this time. Patient is given a dose of Zosyn. Her blood pressure did come down into the 90s systolic. Because of this we started another 500 mL of normal saline. Patient was feeling significantly better after fluid hydration. She was more lucid. She was no longer stopping her conversations mid sentence. She ate about half of a turkey sandwich without difficulty. I did speak to Dr. Oliveira who accept the patient for admission at this time. Clinically speaking I do not believe that this patient is septic however I do think that she is close to developing sepsis without intervention and monitoring at this time. Vital Signs Vital signs: Initial Vital Signs Temperature 99.3 F 04/27/25 15:11 Temperature Source Temporal Artery Scan 04/27/25 15:11 Pulse Rate 108 H 04/27/25 15:11 Respiratory Rate 16 04/27/25 15:11 Blood Pressure 135/69 04/27/25 15:11 Blood Pressure Mean 91 04/27/25 15:11 Blood Pressure Position High-Fowlers 04/27/25 15:11 Pulse Oximetry 94 04/27/25 15:11 Oxygen Delivery Method Room Air 04/27/25 15:11 Vital Signs Temperature 99.3 F 04/27/25 15:11 Pulse Rate 108 H 04/27/25 15:11 Respiratory Rate 16 04/27/25 15:11 Blood Pressure 135/69 04/27/25 15:11 Pulse Oximetry 94 04/27/25 15:11 Oxygen Delivery Method Room Air 04/27/25 15:11 Temperature 101.1 F H 04/27/25 16:15 Pulse Rate 102 H 04/27/25 17:15 Respiratory Rate 16 04/27/25 18:02 Blood Pressure 93/57 L 04/27/25 18:02 Pulse Oximetry 96 04/27/25 17:15 Oxygen Delivery Method Room Air 04/27/25 15:11 Medications Administered Medications: Discontinued Medications Generic Name Dose Route Start Last Admin Trade Name Freq PRN Reason Stop Dose Admin Acetaminophen 650 mg 04/27/25 15:40 04/27/25 16:15 Acetaminophen 500 Mg Tablet PO 04/27/25 15:41 650 mg ONCE ONE Administration Sodium Chloride 250 mls @ 250 mls/hr 04/27/25 15:42 04/27/25 18:05 0.9 % Sodium Chloride 250 Ml IV 04/27/25 16:41 Infused .Q1H ONE Infusion Piperacillin Sod/Tazobactam 100 mls @ 200 mls/hr 04/27/25 17:29 04/27/25 17:58 Sod 2.25 gm/ Sodium Chloride IVPB 04/27/25 17:30 200 mls/hr ONCE ONE Administration Medical Decision Making MDM Narrative Medical decision making narrative: [age] year female with a UTI, fever. Patient will be admitted for further management. Lab Data Lab results reviewed: Yes I reviewed the patient's lab results Labs: Lab Results 04/27/25 04/27/25 Range/Units 15:50 17:00 WBC 8.61 (4.50-11.00) K/uL RBC 3.08 L (4.00-5.20) m/uL Hgb 9.5 L (12.0-16.0) gm/dL Hct 29.6 L (33.0-51.0) % MCV 96 (80-100) fL MCH 31 (26-34) pg MCHC 32 (32-36) gm/dL RDW Coeff of [place] 19.6 H (11.5-15.5) % Plt Count 189 (140-440) K/uL Neut % (Auto) 85.9 H (42.0-72.0) % Lymph % (Auto) 3.3 L (20-44) % [place] % (Auto) 10.1 (0.0-11.0) % Eos % (Auto) 0.0 (0.0-7.0) % Baso % (Auto) 0.1 (0.0-3.0) % Neut # (Auto) 7.40 H (1.7-7.0) K/uL Lymph # (Auto) 0.30 L (0.90-2.90) K/uL [place] # (Auto) 0.90 (0.00-0.90) K/UL Eos # (Auto) 0.00 (0.00-0.50) K/uL Baso # (Auto) 0.01 (0.00-0.30) K/uL Abs Immat Gran (auto) 0.05 (0.00-0.30) K/uL Imm/Tot Granulo (auto) 0.6 % Sodium 131 L (135-149) mmol/L Potassium 3.8 (3.6-5.1) mmol/L Chloride 100 (96-114) mmol/L Carbon Dioxide 26 (20-32) mmol/L Anion Gap 5 L (7-15) mEq/L BUN 30 (7-30) mg/dL Creatinine 1.1 (0.5-1.5) mg/dL Estimated Creat Clear 38.16 Estimated GFR 52 ml/min Glucose 134 H (60-115) mg/dL Lactate 1.1 (0.5-1.9) mmol/L Calcium 9.3 (8.4-10.6) mg/dL Total Bilirubin 0.7 (0.1-1.5) mg/dL Direct Bilirubin 0.3 (0.0-0.5) mg/dL AST 33 (12-35) U/L ALT 22 (4-35) U/L Alkaline Phosphatase 80 (40-150) U/L C-Reactive Protein 2.3 H (0.5-1.0) mg/dL Total Protein 6.5 (6.0-8.3) g/dL Albumin 3.5 (3.3-5.0) g/dL Procalcitonin 0.70 H (<0.50) ng/mL Urine Color Yellow (Yellow) Urine Appearance Turbid A (Clear) Urine pH 8.5 (5.0-8.5) Ur Specific [place] 1.020 (1.000-1.030) Urine Protein 3+ A (Negative) Urine Glucose (UA) Negative (Negative) Urine Ketones Negative (Negative) Urine Blood 2+ A (Negative) Urine Nitrite Negative (Negative) Urine Bilirubin Negative (Negative) Urine Urobilinogen 0.2 (0.2-1.0) Ur Leukocyte Esterase 3+ A (Negative) Urine RBC 10-25 A (0-2) Urine WBC 10-25 A (0-5) Urine WBC Clumps Many A (None) Ur Squamous Epith Cells Few (None-Few) Hippuric Acid Crystals Few A (None) Urine Bacteria Moderate A (None) SARS-CoV-2 (PCR) Negative SARS-CoV-2 (Negative) Influenza Type A (PCR) Negative PCR FLU A (Negative) Influenza Type B (PCR) Negative PCR FLU B (Negative) RSV (PCR) Negative PCR RSV (Negative) Imaging Data Chest x-ray: Attestation: I have reviewed the pertinent imaging results. Radiologist's impression: TECHNIQUE: PA and lateral views of the chest (3 images). FINDINGS: Medical Devices: Right-sided implantable port. Catheter tip is at the level of the mid superior vena cava. Tandem locking loop catheters are superimposed upon the posterior aspect of the right upper quadrant consistent with percutaneous nephrostomy tubes trauma for example in this patient with a history of cervical cancer. A 3rd pigtail catheter is also noted on the lateral view. Lung Volumes: Adequate inspiration. No significant atelectasis. Lungs: Clear lungs. Pleura and Pleural spaces: Small right posterior pleural effusion. No pneumothorax. Mediastinum: Normal cardiomediastinal silhouette. Bony Thorax and Soft Tissues: No significant incidental findings. 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 IMPRESSION: No findings to explain the clinical history of shortness of breath. Incidental findings described in the body of the report. ECG Data Attestation: I personally reviewed and interpreted this ECG as follows: Discharge Plan Discharge Clinical Impression: Acute UTI, Fever, Acute hyponatremia, Anemia Patient Disposition: Admitted As Observation Condition: Stable
[2025-04-27 16:10] LABS: Hematocrit 29.6 % (33.0-51.0); Hemoglobin* 9.5 gm/dL (12.0-16.0); Immature Granulocytes Abs Auto 0.05 K/uL (0.00-0.30); Immature Granulocytes Pct Auto 0.6 %; Mean Corpuscular HGB Conc 32 gm/dL (32-36); Mean Corpuscular Hemoglobin 31 pg (26-34); Mean Corpuscular Volume 96 fL (80-100); RDW Coefficient of Variation % 19.6 % (11.5-15.5); Red Blood Count 3.08 m/uL (4.00-5.20); White Blood Count* 8.61 K/uL (4.50-11.00)
[2025-04-27] MEDS: 0.9 % SODIUM CHLORIDE 250 ml 250 ML IV (16:10)
--- OUTSIDE RECORDS SUMMARY | 2025-04-27 16:11 | XMS_ITS | CCD ---
Author Name Interface, [email or web address] lity Address [address] [place] [id number] [facility] Address [facility] [address] [address] Care Team Providers Care Catalyst Concentration Operator Name Role Phone Chica PALMA, Sarah Gallegos Unavailable Un available Allergies and Adverse Reactions Care Plan Reason for Visit Encounters Diagnostic Results Medications Problems Procedures Social History Visits Vital Signs Notes Section
[2025-04-27 16:15] LABS: Lymphocytes Absolute Auto 0.30 K/uL (0.90-2.90); Slide Review Reflex No
[2025-04-27] MEDS: ACETAMINOPHEN 500 MG TABLET 650 MG PO (16:15)
[2025-04-27 16:26] LABS: Albumin* 3.5 g/dL (3.3-5.0); Chloride* 100 mmol/L (96-114)
[2025-04-27 16:27] LABS: Potassium* 3.8 mmol/L (3.6-5.1); Sodium* 131 mmol/L (135-149)
[2025-04-27 16:29] LABS: Blood Urea Nitrogen* 30 mg/dL (7-30); Creatinine* 1.1 mg/dL (0.5-1.5); Est. Creatinine Clearance* 38.16; Estimated Glomerular Filt Rate 52 ml/min
[2025-04-27 16:30] LABS: Alanine Aminotransferase* 22 U/L (4-35); Alkaline Phosphatase* 80 U/L (40-150); Anion Gap 5 mEq/L (7-15); Aspartate Amino Transferase* 33 U/L (12-35); Bilirubin Direct* 0.3 mg/dL (0.0-0.5); Bilirubin Total* 0.7 mg/dL (0.1-1.5); Calcium* 9.3 mg/dL (8.4-10.6); Carbon Dioxide* 26 mmol/L (20-32); Glucose* 134 mg/dL (60-115); Total Protein* 6.5 g/dL (6.0-8.3)
[2025-04-27 16:46] LABS: PCR FLU A Negative PCR FLU A (Negative); PCR FLU B Negative PCR FLU B (Negative); PCR RSV Negative PCR RSV (Negative); SARS PCR* Negative SARS-CoV-2 (Negative)
[2025-04-27 17:05] LABS: Appearance Urine Turbid (Clear)
[2025-04-27 17:10] LABS: Procalcitonin* 0.70 ng/mL (<0.50)
[2025-04-27 17:16] LABS: Hippuric Crystals Urine Few
[2025-04-27] MEDS: PIPERACILLIN/TAZOBACTAM 2.25 GM in 0.9 % SODIUM CHLORIDE Mini-bag 100 ML IVPB ×2 (17:58→23:09)
[2025-04-27] MEDS: 0.9 % SODIUM CHLORIDE 500 ML 500 ML IV (18:33)
--- NOTE | 2025-04-27 19:22 | PM.IMHP1 ---
Assessment and Plan Assessment and plan (1) Complicated urinary tract infection: Problem comment: - bilateral nephrostomy tubes in place since December 2024 due to obstruction from stage for a cervical cancer metastases - urine culture and blood cultures obtained and results pending - piperacillin 3.375 g IV q.12 hours - check nasal MRSA swab and consider broadening the spectrum of coverage if warranted Status: Acute (2) Sepsis: Problem comment: - IV fluids, monitor lactate - consider pressors if warranted, patient agreeable Status: Acute (3) H/O insertion of nephrostomy tube: Problem comment: - 01/07/25 insertion - already has a scheduled to change bilateral nephrostomy tubes on 04/29/2025, [place], [place], which is needed for source control - may need to try to coordinate this needed follow-up with Urology at [facility] of 04/28/2025 Status: Acute (4) Anemia: Status: Acute (5) Ureteral obstruction: Status: Acute (6) Cervical cancer: Problem comment: - Clinical stage BRICE squamous cell carcinoma, HPV positive - ongoing treatment with [place] [facility] and [facility] for chemotherapy, immunotherapy, radiation therapy - may need to coordinate care with her oncology clinicians while in hospital Status: Acute (7) Chronic hyponatremia: Problem comment: - serum sodium normally ranges 130-134 - sodium 04/27/2025 is 131 - fluid restriction and monitor - normal saline IV fluid boluses for sepsis Status: Acute Plan 1. Reviewed impression, plans, recommendations with patient and her sister 2. Answered their questions their satisfaction 3. Continue with other supportive efforts 4. They are agreeable with above stated plans and recommendations Hospitalist- H&P: HPI History of Present Illness Date Seen: 04/27/25 Chief complaint: Weakness Narrative: Alyssa Garcia is a 74 year old woman presents to the emergency department today accompanied by her sister for assessment and treatment of sudden onset fever, rigors, forgetfulness. 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 In the process of receiving chemoradiation therapy and immunotherapy. December 2024 presented with bilateral hydronephrosis due to metastatic disease. Has bilateral nephrostomy tubes have been placed now. Is scheduled to get both of these nephrostomy tubes changed on 04/29/2025, [place], [place]. Was in her usual state of health until today when she woke up not feeling well. By the afternoon she was feeling cold and developed rigors. [place] feverish at home but temperature was not taken. Became more confused. Became more forgetful. Her sister decided that it was time for patient to be assessed in the emergency department and thus summoned EMS and patient was brought in for further assessment. In the emergency department urine appears cloudy and concentrated. Patient's temperature is 101.1? F. Initially systolic blood pressure is 110 mmHg. Over time systolic blood pressure dropped as low as 80 mmHg. Blood cultures and urine cultures obtained. IV fluids initiated. Treated with 3.375 g of IV piperacillin with tazobactam. Her confusion and forgetfulness improved substantially in a relatively short period of time. Decision was quickly made that patient needed to be admitted for hospital assessment and treatment. Patient and sister agreeable. Review of Systems Status of ROS: Reports: 10 or more systems reviewed and unremarkable except as noted in History and below Medical Decision Making Medical Decision Making Code Status: DNR DNI resuscitation status During This Stay, Who Would You Like To Make Decisions For You In The Event You Are Unable To Make Them For Yourself?: Her sister who accompanies her today [facility] Medical History (Updated 04/27/25 @ 19:47 by Jimmy Oliveira MD) [place] (acute kidney injury) ?N17.9 - Acute kidney failure, unspecified (ICD-10) Ureteral obstruction ?N13.5 - Crossing vessel and stricture of ureter without hydronephrosis (ICD-10) Squamous cell carcinoma of cervix ?C53.9 - Malignant neoplasm of cervix uteri, unspecified (ICD-10) Hyponatremia ?E87.1 - Hypo-osmolality and hyponatremia (ICD-10) Pure hypercholesterolemia ?E78.00 - Pure hypercholesterolemia, unspecified (ICD-10) Essential hypertension ?I10 - Essential (primary) hypertension (ICD-10) Surgical History (Updated 04/27/25 @ 19:45 by Jimmy Oliveira MD) H/O insertion of nephrostomy tube ?Z98.890 - Other specified postprocedural states (ICD-10) Social History Smoking Status: Never smoker How often do you have a drink containing alcohol: never AUDIT-C Alcohol total score: 0 Non-prescribed substance use: denies use Caffeine: Yes (1c/day) Are you using contraception or practicing any form of control: No service: No Meds Home Medications and Allergies Home Medications ?Medication ?Instructions ?Recorded ?Confirmed ?Type carvedilol 12.5 mg tablet 25 mg PO BID 01/22/25 04/12/25 History coenzyme Q10 100 mg capsule (Co 100 mg PO DAILY 02/10/25 04/12/25 History Q-10) omega-3 fatty acids-fish oil 360 1 cap PO DAILY 02/10/25 04/12/25 History mg-1,200 mg capsule ascorbate calcium (vitamin C) 500 500 mg PO QDAY 02/17/25 04/12/25 History mg tablet prochlorperazine maleate 10 mg 10 mg PO Q6H PRN nausea 02/21/25 04/12/25 History tablet loperamide 2 mg capsule (Imodium 2 mg PO QID PRN 03/07/25 04/12/25 History A-D) polyethylene glycol 3350 17 17 g PO DAILY PRN 03/07/25 04/12/25 History gram/dose oral powder (Miralax) olanzapine 2.5 mg tablet 2.5 mg PO QPM PRN 03/14/25 04/12/25 History trazodone 50 mg tablet 50 mg PO QHS 03/14/25 04/12/25 History Allergies Allergy/AdvReac Type Severity Reaction Status Date / Time Iodinated Contrast Media AdvReac Severe Verified 04/27/25 15:02 Exam Narrative: Exam Narrative: Examined patient in the hospital emergency department. Appears comfortable and in no acute distress. Alert and oriented x4. Friendly, articulate, cooperative. Vision and hearing are adequate. No icterus or jaundice. No cyanosis, mottling, rashes, petechiae. Midline nasal septum. Dentition in fair repair. Dry buccal mucosa. Neck is supple. Midline trachea. No head neck lymphadenopathy. Lungs are clear to auscultation without wheezing, rhonchi, rales. No CVA tenderness to thumping. Nephrostomy tube dressings in place without drainage. Heart tones with regular rhythm, normal S1-S2. Grade 2-3 systolic murmur left lower sternal border. No gallop or rub. PMI not laterally displaced. Abdomen with active bowel sounds, soft, nontender. No organomegaly or masses. No rebound or guarding. Extremities without edema. Moves all 4 extremities. No focal motor neurologic deficits. Const: Vital Signs, click to edit/add: Vital Signs - 24 hr 04/27/25 15:11 04/27/25 15:13 04/27/25 15:15 Temperature 99.3 F Pulse Rate 112 H 108 H Pulse Rate [Pulse Oximeter] 108 H Respiratory Rate 16 Blood Pressure Blood Pressure [Ri ght Upper Arm] 135/69 Pulse Oximetry 94 93 95 Oxygen Delivery Me thod Room Air 04/27/25 15:17 04/27/25 15:18 04/27/25 15:27 Temperature 101.1 F H Pulse Rate 112 H 111 H Pulse Rate [Pulse Oximeter] Respiratory Rate Blood Pressure 122/66 Blood Pressure [Ri ght Upper Arm] Pulse Oximetry 94 93 Oxygen Delivery Me thod 04/27/25 15:30 04/27/25 15:31 04/27/25 15:45 Temperature Pulse Rate 111 H 112 H 114 H Pulse Rate [Pulse Oximeter] Respiratory Rate 14 20 Blood Pressure 123/66 Blood Pressure [Ri ght Upper Arm] Pulse Oximetry 93 94 92 Oxygen Delivery Me thod 04/27/25 15:46 04/27/25 16:00 04/27/25 16:04 Temperature Pulse Rate 113 H 111 H 110 H Pulse Rate [Pulse Oximeter] Respiratory Rate 16 Blood Pressure 121/69 Blood Pressure [Ri ght Upper Arm] Pulse Oximetry 93 92 93 Oxygen Delivery Me thod 04/27/25 16:15 04/27/25 16:15 04/27/25 16:32 Temperature 101.1 F H Pulse Rate 109 H 107 H Pulse Rate [Pulse Oximeter] Respiratory Rate 16 Blood Pressure Blood Pressure [Ri ght Upper Arm] Pulse Oximetry 94 95 Oxygen Delivery Me thod 04/27/25 16:33 04/27/25 16:45 04/27/25 16:46 Temperature Pulse Rate 108 H 106 H 105 H Pulse Rate [Pulse Oximeter] Respiratory Rate 20 21 16 Blood Pressure 111/70 120/67 Blood Pressure [Ri ght Upper Arm] Pulse Oximetry 96 96 95 Oxygen Delivery Me thod 04/27/25 16:47 04/27/25 17:00 04/27/25 17:01 Temperature Pulse Rate 104 H 103 H 103 H Pulse Rate [Pulse Oximeter] Respiratory Rate 21 16 Blood Pressure 105/61 Blood Pressure [Ri ght Upper Arm] Pulse Oximetry 96 95 95 [facility] 04/27/25 17:15 04/27/25 17:30 04/27/25 17:31 Temperature Pulse Rate 102 H Pulse Rate [Pulse Oximeter] Respiratory Rate 18 19 Blood Pressure 99/61 Blood Pressure [Ri ght Upper Arm] Pulse Oximetry 96 [facility] 04/27/25 18:02 04/27/25 18:35 04/27/25 18:35 Temperature 98.8 F Pulse Rate 95 Pulse Rate [Pulse Oximeter] Respiratory Rate 16 18 Blood Pressure 93/57 L 84/45 L Blood Pressure [Ri ght Upper Arm] Pulse Oximetry 97 [facility] 04/27/25 18:36 04/27/25 18:38 04/27/25 18:45 Temperature Pulse Rate 97 95 95 Pulse Rate [Pulse Oximeter] Respiratory Rate 21 17 15 Blood Pressure 80/53 L Blood Pressure [Ri ght Upper Arm] Pulse Oximetry 96 96 97 Oxygen Delivery [facility] 04/27/25 19:00 04/27/25 19:01 04/27/25 19:15 Temperature Pulse Rate 94 94 92 Pulse Rate [Pulse Oximeter] Respiratory Rate Blood Pressure 83/55 L Blood Pressure [Ri ght Upper Arm] Pulse Oximetry 97 97 98 Oxygen Delivery [facility] Hospitalist - H&P: Result Labs Labs: Short CBC 04/27/25 Range/Units 15:50 WBC 8.61 (4.50-11.00) K/uL Hgb 9.5 L (12.0-16.0) gm/dL Hct 29.6 L (33.0-51.0) % Plt Count 189 (140-440) K/uL BMP 04/27/25 15:50 Sodium 131 L Potassium 3.8 Chloride 100 Carbon Dioxide 26 BUN 30 Creatinine 1.1 Glucose 134 H Calcium 9.3 Liver Function 04/27/25 Range/Units 15:50 Total Bilirubin 0.7 (0.1-1.5) mg/dL Direct Bilirubin 0.3 (0.0-0.5) mg/dL AST 33 (12-35) U/L ALT 22 (4-35) U/L Alkaline Phosphatase 80 (40-150) U/L Albumin 3.5 (3.3-5.0) g/dL Urine 04/27/25 Range/Units 17:00 Urine Color Yellow (Yellow) Urine Appearance Turbid A (Clear) Urine pH 8.5 (5.0-8.5) Ur Specific [place] 1.020 (1.000-1.030) Urine Protein 3+ A (Negative) Urine Glucose (UA) Negative (Negative)
[2025-04-27] MEDS: SODIUM CHLORIDE 0.9 % (FLUSH) 10 ML SYRINGE 5 ML IVF (22:06)
[2025-04-27] MEDS: TRAZODONE HCL 50 MG TABLET PO (22:21)
[2025-04-28] VITALS (11 sets, daily range): BP systolic 100–134; BP diastolic 59–77; PULSE 78–92; RESP 16–18; TEMP 36.6–37.4; O2SAT 94–96
--- NOTE | 2025-04-28 05:20 | PC.NURSE ---
Shift note: Patient arrived to the floor at 2039 on a bed. alert and oriented on arrival. Vital signs were stable. Patient with bilateral nephrostomy tubes with bags draining clear urine. She reported that she started feeling weak after nico rivera
--- NOTE | 2025-04-28 05:26 | PC.NURSE ---
Shift note: Patient arrived to the floor at 2039 on a bed accompanied by her sister. alert and oriented on arrival. Vital signs were stable. Patient with bilateral nephrostomy tubes with bags draining clear urine. Patient knows how to empty urine from the nephrostomy bag. She added that, a home care nurse normally comes to the house 2x/week to assist with procedures. She reported that she started feeling weak after changing the nephrostomy tube dressing. Pleasant and cooperate with treatment and care. Pt has 2 peripheral IV line on each upper extremities. Patient had adequate sleep.
[2025-04-28] MEDS: PIPERACILLIN/TAZOBACTAM 2.25 GM in 0.9 % SODIUM CHLORIDE Mini-bag 100 ML IVPB ×4 (06:33→20:14)
[2025-04-28 06:43] LABS: Hematocrit 27.5 % (33.0-51.0); Hemoglobin* 8.8 gm/dL (12.0-16.0); Immature Granulocytes Abs Auto 0.02 K/uL (0.00-0.30); Immature Granulocytes Pct Auto 0.3 %; Mean Corpuscular HGB Conc 32 gm/dL (32-36); Mean Corpuscular Hemoglobin 31 pg (26-34); Mean Corpuscular Volume 97 fL (80-100); RDW Coefficient of Variation % 20.0 % (11.5-15.5); Red Blood Count 2.84 m/uL (4.00-5.20); White Blood Count* 7.91 K/uL (4.50-11.00)
[2025-04-28 06:45] LABS: Lymphocytes Absolute Auto 0.50 K/uL (0.90-2.90); Slide Review Reflex No
[2025-04-28 06:49] LABS: HCO3 VBG 25 mmol/L (21-28); PCO2 VBG 38 mmHG (40-50); PO2 VBG 33.1 mmHG (25-47); pH VBG 7.427 (7.32-7.43)
[2025-04-28 07:26] LABS: Chloride* 101 mmol/L (96-114); Potassium* 3.8 mmol/L (3.6-5.1); Sodium* 129 mmol/L (135-149)
[2025-04-28 07:29] LABS: Blood Urea Nitrogen* 30 mg/dL (7-30); Creatinine* 1.3 mg/dL (0.5-1.5); Est. Creatinine Clearance* 33.65; Estimated Glomerular Filt Rate 43 ml/min
[2025-04-28 07:30] LABS: Anion Gap 4 mEq/L (7-15); Calcium* 8.7 mg/dL (8.4-10.6); Carbon Dioxide* 24 mmol/L (20-32); Glucose* 126 mg/dL (60-115)
[2025-04-28 07:36] LABS: Lactate* 1.0 mmol/L (0.5-1.9)
[2025-04-28] MEDS: SODIUM CHLORIDE 0.9 % (FLUSH) 10 ML SYRINGE 5 ML IVF ×2 (08:05→20:15)
[2025-04-28] MEDS: ACETAMINOPHEN 325 MG TABLET 650 MG PO (11:46)
--- NOTE | 2025-04-28 12:30 | PM.IMPN1 ---
Assessment and Plan Assessment and plan (1) Complicated urinary tract infection: Problem comment: - bilateral nephrostomy tubes in place since December 2024 due to obstruction from stage for a cervical cancer metastases - urine culture and blood cultures obtained and results pending - piperacillin 3.375 g IV q.12 hours - check nasal MRSA swab and consider broadening the spectrum of coverage if warranted 04/28 UC, BC, MRSA pending. Reviewed previous urine cultures from December to February 2025, growing Pseudomonas and Enterococcus. Currently on Zosyn and responding appropriately. Reports fluoroquinolone allergy with diarrhea and calf pain. Status: Acute (2) Sepsis: Problem comment: RESOLVED - IV fluids, monitor lactate - consider pressors if warranted, patient agreeable Status: Resolved (3) H/O insertion of nephrostomy tube: Problem comment: - 01/07/25 insertion - already has a scheduled to change bilateral nephrostomy tubes on 04/29/2025, [facility], [place], [place], which is needed for source control - may need to try to coordinate this needed follow-up with Urology at [facility] of 04/28/2025 Status: Acute (4) Ureteral obstruction: Problem comment: Chronic Status: Acute (5) Anemia: Problem comment: Appears to be acute on chronic however I am not able to access [facility] records to see further workup Perhaps anemia of chronic disease in setting of active cancer and therapies. No current or recent notable concern for acute bleed as cause Hemoglobin 8.8, baseline 10.8-9.2 Ongoing management with PCP Status: Acute (6) Cervical cancer: Problem comment: - Clinical stage BRICE squamous cell carcinoma, HPV positive - ongoing treatment with [place] [facility] and [facility] for chemotherapy, immunotherapy, radiation therapy - may need to coordinate care with her oncology clinicians while in hospital Has a phone follow-up appointment with oncologist today 04/28 at 1:45 p.m. Status: Acute (7) Chronic hyponatremia: Problem comment: - serum sodium normally ranges 130-134 - sodium 04/27/2025 is 131 - fluid restriction and monitor - normal saline IV fluid boluses for sepsis Sodium 129, increase fluid restriction to 1800 mL, encourage protein/electrolyte replacement in place of free water Status: Acute Plan Sepsis has resolved. Patient appears to be responding to Zosyn. Previous urine cultures growing Enterococcus and Pseudomonas. Unfortunately, adverse side effects to fluroquinolones are noted. It is important for patient to get to her [facility] appointment tomorrow for nephrostomy tube management. As discussed with patient and her sister, plan will be to discharge tomorrow morning following a final dose of Zosyn, pending urine cultures blood cultures and MRSA. If preliminarily growing gram positive, will discharge on Augmentin which has been sent to her pharmacy. Will reconsider if gram negative growth noted. If Nephrology team determines patient will need further IV antibiotics or hospitalization, this can be done in [place]. Patient and her sister in agreement. Total Time Spent Total Time Spent: Today I spent 55 minutes seeing the patient, reviewing [facility] and EPIC notes/diagnostics, discussing the care plan with our care time that includes social work, PT/OT, pharmacy, RT, [place] [facility] and documenting my impressions and plan in the medical record. Subjective Date Seen: 04/28/25 Interval history: Patient is seen sitting reclined in bed, sister at bedside. Has remained vitally stable overnight, tachycardia resolved, blood pressure improving, afebrile. Mental status back to baseline. Tolerating orals without nausea vomiting. Has an appointment with [facility] Friday at 9:30 a.m.. Her sister, Brooke, will transport her. Exam Narrative: Exam Narrative: PHYSICAL EXAM General: Pleasant, conversant, NAD HEENT: Normocephalic, atraumatic, sclera white, EOMI, oral mucosa moist Cardiovascular: RRR, S1S2. No pitting edema Pulmonary: CTA bilaterally without rhonchi, rales, expiratory wheezes. No dyspnea Abdominal: Soft, nondistended, NTTP Neurological: Alert, answering questions appropriately, cranial nerves intact, no focal findings Extremities: No gross joint deformity or swelling. AROMI. Neurovascularly intact Skin: Warm, dry. Const: Vital Signs, click to edit/add: Vital Signs - 24 hr 04/27/25 15:11 04/27/25 15:13 04/27/25 15:15 Temperature 99.3 F Pulse Rate 112 H 108 H Pulse Rate [Left P ulse Oximeter] Pulse Rate [Pulse Oximeter] 108 H Respiratory Rate 16 Blood Pressure Blood Pressure [Ri ght Arm] Blood Pressure [Ri ght Upper Arm] 135/69 Pulse Oximetry 94 93 95 Oxygen Delivery Me thod Room Air 04/27/25 15:17 04/27/25 15:18 04/27/25 15:27 Temperature 101.1 F H Pulse Rate 112 H 111 H Pulse Rate [Left P ulse Oximeter] Pulse Rate [Pulse Oximeter] Respiratory Rate Blood Pressure 122/66 Blood Pressure [Ri ght Arm] Blood Pressure [Ri ght Upper Arm] Pulse Oximetry 94 93 Oxygen Delivery Me thod 04/27/25 15:30 04/27/25 15:31 04/27/25 15:45 Temperature Pulse Rate 111 H 112 H 114 H Pulse Rate [Left P ulse Oximeter] Pulse Rate [Pulse Oximeter] Respiratory Rate 14 20 Blood Pressure 123/66 Blood Pressure [Ri ght Arm] Blood Pressure [Ri ght Upper Arm] Pulse Oximetry 93 94 92 Oxygen Delivery Me thod 04/27/25 15:46 04/27/25 16:00 04/27/25 16:04 Temperature Pulse Rate 113 H 111 H 110 H Pulse Rate [Left P ulse Oximeter] Pulse Rate [Pulse Oximeter] Respiratory Rate 16 Blood Pressure 121/69 Blood Pressure [Ri ght Arm] Blood Pressure [Ri ght Upper Arm] Pulse Oximetry 93 92 93 Oxygen Delivery [place] thod 04/27/25 16:15 04/27/25 16:15 04/27/25 16:32 Temperature 101.1 F H Pulse Rate 109 H 107 H Pulse Rate [Left P ulse Oximeter] Pulse Rate [Pulse Oximeter] Respiratory Rate 16 Blood Pressure Blood Pressure [Ri ght Arm] Blood Pressure [Ri ght Upper Arm] Pulse Oximetry 94 95 Oxygen Delivery Me thod 04/27/25 16:33 04/27/25 16:45 04/27/25 16:46 Temperature Pulse Rate 108 H 106 H 105 H Pulse Rate [Left P ulse Oximeter] Pulse Rate [Pulse Oximeter] Respiratory Rate 20 21 16 Blood Pressure 111/70 120/67 Blood Pressure [Ri ght Arm] Blood Pressure [Ri ght Upper Arm] Pulse Oximetry 96 96 95 Oxygen Delivery Me thod 04/27/25 16:47 04/27/25 17:00 04/27/25 17:01 Temperature Pulse Rate 104 H 103 H 103 H Pulse Rate [Left P ulse Oximeter] Pulse Rate [Pulse Oximeter] Respiratory Rate 21 16 Blood Pressure 105/61 Blood Pressure [Ri ght Arm] Blood Pressure [Ri ght Upper Arm] Pulse Oximetry 96 95 95 Oxygen Delivery Me thod 04/27/25 17:15 04/27/25 17:30 04/27/25 17:31 Temperature Pulse Rate 102 H Pulse Rate [Left P ulse Oximeter] Pulse Rate [Pulse Oximeter] Respiratory Rate 18 19 Blood Pressure 99/61 Blood Pressure [Ri ght Arm] Blood Pressure [Ri ght Upper Arm] Pulse Oximetry 96 Oxygen Delivery [place] thod 04/27/25 18:02 04/27/25 18:35 04/27/25 18:35 Temperature 98.8 F Pulse Rate 95 Pulse Rate [Left P ulse Oximeter] Pulse Rate [Pulse Oximeter] Respiratory Rate 16 18 Blood Pressure 93/57 L 84/45 L Blood Pressure [Ri ght Arm] Blood Pressure [Ri ght Upper Arm] Pulse Oximetry 97 [facility] 04/27/25 18:36 04/27/25 18:38 04/27/25 18:45 Temperature Pulse Rate 97 95 95 Pulse Rate [Left P ulse Oximeter] Pulse Rate [Pulse Oximeter] Respiratory Rate 21 17 15 Blood Pressure 80/53 L Blood Pressure [Ri ght Arm] Blood Pressure [Ri ght Upper Arm] Pulse Oximetry 96 96 97 [facility] 04/27/25 19:00 04/27/25 19:01 04/27/25 19:15 Temperature Pulse Rate 94 94 92 Pulse Rate [Left P ulse Oximeter] Pulse Rate [Pulse Oximeter] Respiratory Rate Blood Pressure 83/55 L Blood Pressure [Ri ght Arm] Blood Pressure [Ri ght Upper Arm] Pulse Oximetry 97 97 98 [facility] 04/27/25 19:30 04/27/25 19:31 04/27/25 19:32 Temperature Pulse Rate 90 91 89 Pulse Rate [Left P ulse Oximeter] Pulse Rate [Pulse Oximeter] Respiratory Rate 17 17 19 Blood Pressure 104/52 L Blood Pressure [Ri ght Arm] Blood Pressure [Ri ght Upper Arm] Pulse Oximetry 97 98 97 Oxygen Delivery [place] thod 04/27/25 20:21 04/27/25 22:22 04/27/25 22:37 Temperature 97.9 F 97.9 F Pulse Rate Pulse Rate [Left P ulse Oximeter] 92 112 H 112 H Pulse Rate [Pulse Oximeter] Respiratory Rate 19 19 19 Blood Pressure Blood Pressure [Ri ght Arm] 98/56 L 156/82 H Blood Pressure [Ri ght Upper Arm] Pulse Oximetry 97 94 Oxygen Delivery Me thod Room Air Room Air 04/27/25 22:37 04/28/25 02:44 04/28/25 07:00 Temperature 98 F Pulse Rate Pulse Rate [Left P ulse Oximeter] 92 Pulse Rate [Pulse Oximeter] Respiratory Rate 19 18 Blood Pressure Blood Pressure [Ri ght Arm] 107/60 Blood Pressure [Ri ght Upper Arm] Pulse Oximetry 94 94 94 Oxygen Delivery Me thod Room Air Room Air Room Air 04/28/25 08:03 04/28/25 10:51 04/28/25 11:44 Temperature 98.1 F 99.0 F 99.4 F Pulse Rate Pulse Rate [Left P ulse Oximeter] 92 90 Pulse Rate [Pulse Oximeter] Respiratory Rate 16 16 Blood Pressure Blood Pressure [Ri ght Arm] 114/63 113/64 Blood Pressure [Ri ght Upper Arm] Pulse Oximetry 96 94 Oxygen Delivery Me thod Room Air Room Air 04/28/25 11:46 Temperature 99.4 F Pulse Rate Pulse Rate [Left P ulse Oximeter] Pulse Rate [Pulse Oximeter] Respiratory Rate Blood Pressure Blood Pressure [Ri ght Arm] Blood Pressure [Ri ght Upper Arm] Pulse Oximetry Oxygen Delivery Me thod Labs Labs: Laboratory Results - last 24 hr 04/27/25 04/27/25 04/28/25 15:50 17:00 05:58 WBC 8.61 7.91 RBC 3.08 L 2.84 L Hgb 9.5 L 8.8 L Hct 29.6 L 27.5 L MCV 96 97 MCH 31 31 MCHC 32 32 RDW Coeff of Myrna 19.6 H 20.0 H Plt Count 189 159 Neut % (Auto) 85.9 H 81.9 H Lymph % (Auto) 3.3 L 5.8 L [place] % (Auto) 10.1 11.9 H Eos % (Auto) 0.0 0.0 Baso % (Auto) 0.1 0.1 Neut # (Auto) 7.40 H 6.50 Lymph # (Auto) 0.30 L 0.50 L [place] # (Auto) 0.90 0.90 Eos # (Auto) 0.00 0.00 Baso # (Auto) 0.01 0.01 Abs Immat Gran (auto) 0.05 0.02 Imm/Tot Granulo (auto) 0.6 0.3 VBG pH 7.427 VBG pCO2 38 L VBG pO2 33.1 VBG HCO3 25 Sodium 131 L 129 L Potassium 3.8 3.8 Chloride 100 101 Carbon Dioxide 26 24 Anion Gap 5 L 4 L BUN 30 30 Creatinine 1.1 1.3 Estimated Creat Clear 38.16 33.65 Estimated GFR 52 43 Glucose 134 H 126 H Lactate 1.1 1.0 Calcium 9.3 8.7 Phosphorus 3.3 Magnesium 1.9 Total Bilirubin 0.7 Direct Bilirubin 0.3 AST 33 ALT 22 Alkaline Phosphatase 80 C-Reactive Protein 2.3 H 14.3 H Total Protein 6.5 Albumin 3.5 Lipase 44 Procalcitonin 0.70 H Urine Color Yellow Urine Appearance Turbid A Urine pH 8.5 Ur Specific Siler 1.020 Urine Protein 3+ A Urine Glucose (UA) Negative Urine Ketones Negative Urine Blood 2+ A Urine Nitrite Negative Urine Bilirubin Negative Urine Urobilinogen 0.2 Ur Leukocyte Esterase 3+ A Urine RBC 10-25 A Urine WBC 10-25 A Urine WBC Clumps Many A Ur Squamous Epith Cells Few Hippuric Acid Crystals Few A Urine Bacteria Moderate A SARS-CoV-2 (PCR) Negative SARS-CoV-2 Influenza Type A (PCR) Negative PCR FLU A Influenza Type B (PCR) Negative PCR FLU B RSV (PCR) Negative PCR RSV
--- NOTE | 2025-04-28 12:46 | PM.DS1 ---
DS: Providers Provider Date Seen: 04/29/25 Date of admission: 04/27/25 21:41 Primary care physician: Axel Palomo MD Admitting Clinician: Jimmy Oliveira MD Consults: 04/28/25 11:02 Consult to Physical Therapy [CONS] Routine Comment: Reason(s) for PT Consult:: Evaluate Ambulation Any Restrictions?:: No Restrictions Comment: Need for walker? Attending Physician on discharge: Leia Melton MD [facility] Date of Discharge: 04/29/25 DS: Diagnosis Discharge Diagnosis (1) Complicated urinary tract infection: Status: Acute Problem details: - bilateral nephrostomy tubes in place since December 2024 due to obstruction from stage for a cervical cancer metastases - urine culture and blood cultures obtained and results pending - piperacillin 3.375 g IV q.12 hours - check nasal MRSA swab and consider broadening the spectrum of coverage if warranted 04/28 UC, BC, MRSA pending. Reviewed previous urine cultures from December to February 2025, growing Pseudomonas and Enterococcus. Currently on Zosyn and responding appropriately. Reports fluoroquinolone allergy with diarrhea and calf pain. 04/29 UC showing gram negative growth. Discharged on oral Levofloxacin pending further ID and sensitivities in order to get to her Nephrology appt at [facility] this morning at 9:30. Has remained vitally stable with resolution of sepsis and continued ongoing clinical improvement. Discussed with patient and her sister that if she needs further IV abx tx or concern for need for readmission that this could be addressed with [facility] team. (2) Sepsis: Status: Resolved Problem details: RESOLVED - IV fluids, monitor lactate - consider pressors if warranted, patient agreeable (3) H/O insertion of nephrostomy tube: Status: Acute Problem details: - 01/07/25 insertion - already has a scheduled to change bilateral nephrostomy tubes on 04/29/2025, [place], [place], which is needed for source control - may need to try to coordinate this needed follow-up with Urology at [facility] morning of 04/28/2025 Discharged after short local hospitalization in order to attend Nephrology appt (4) Ureteral obstruction: Status: Acute Problem details: Chronic (5) Anemia: Status: Acute Problem details: Appears to be acute on chronic however I am not able to access [facility] records to see further workup Possible anemia of chronic disease in setting of active cancer and therapies. No current or recent notable concern for acute blood loss as cause Hemoglobin 8.8, baseline 10.8-9.2 Ongoing work up and management with PCP (6) Cervical cancer: Status: Acute Problem details: - Clinical stage BRICE squamous cell carcinoma, HPV positive - ongoing treatment with [place] [facility] and [facility] for chemotherapy, immunotherapy, radiation therapy - may need to coordinate care with her oncology clinicians while in hospital Has a phone follow-up appointment with oncologist today 04/28 at 1:45 p.m. (7) Chronic hyponatremia: Status: Acute Problem details: Appears to be chronic, baseline 129-134 - sodium 04/27/2025 is 131 - fluid restriction and monitor - normal saline IV fluid boluses for sepsis Sodium 129, increase fluid restriction to 1800 mL, encourage protein/electrolyte replacement in place of free water. Outpatient follow up with PCP for recheck and ongoing management. DS: Summary Hospital Course Hospital Course: Course of care and details as noted above. As above, patient discharged following admission for sepsis in setting of complicated UTI and h/o nephrostomy tubes in order to attend [facility] appt after notable improvement in clinic picture and resolution of sepsis. UC remained pending at time of d/c other than showing growth of gram negative species apparently responding to Zosyn. Discharged on oral levofloxacin with instructions for possible readmission at [facility] if deemed necessary by Nephrology team. Update, as of 05/02/25, UC growing pseudomonas, sensitive to zosyn and levofloxacin. Patient was called last night with update prior to sensitivities. We will discuss need for further abx with pharmacy team and follow up with her today. Remainder of chronic medical comorbidities were monitored and managed with home medications. Status at Discharge Functional status at discharge: uses cane/walker Overall status at discharge: patient is back to baseline Time Spent with Patient Time attestation: Total time spent providing and/or coordinating discharge services: Time spent: Greater than 30 minutes Exam Narrative: Exam Narrative: PHYSICAL EXAM General: Pleasant, conversant, NAD Cardiovascular: RRR Pulmonary: No dyspnea Neurological: Alert, answering questions appropriately Skin: Warm, dry. Const: Vital Signs, click to edit/add: Vital Signs - 24 hr 04/27/25 15:11 04/27/25 15:13 04/27/25 15:15 Temperature 99.3 F Pulse Rate 112 H 108 H Pulse Rate [Left P ulse Oximeter] Pulse Rate [Pulse Oximeter] 108 H Respiratory Rate 16 Blood Pressure Blood Pressure [Ri ght Arm] Blood Pressure [Ri ght Upper Arm] 135/69 Pulse Oximetry 94 93 95 Oxygen Delivery Me thod Room Air 04/27/25 15:17 04/27/25 15:18 04/27/25 15:27 Temperature 101.1 F H Pulse Rate 112 H 111 H Pulse Rate [Left P ulse Oximeter] Pulse Rate [Pulse Oximeter] Respiratory Rate Blood Pressure 122/66 Blood Pressure [Ri ght Arm] Blood Pressure [Ri ght Upper Arm] Pulse Oximetry 94 93 Oxygen Delivery Me thod 04/27/25 15:30 04/27/25 15:31 04/27/25 15:45 Temperature Pulse Rate 111 H 112 H 114 H Pulse Rate [Left P ulse Oximeter] Pulse Rate [Pulse Oximeter] Respiratory Rate 14 20 Blood Pressure 123/66 Blood Pressure [Ri ght Arm] Blood Pressure [Ri ght Upper Arm] Pulse Oximetry 93 94 92 Oxygen Delivery Me thod 04/27/25 15:46 04/27/25 16:00 04/27/25 16:04 Temperature Pulse Rate 113 H 111 H 110 H Pulse Rate [Left P ulse Oximeter] Pulse Rate [Pulse Oximeter] Respiratory Rate 16 Blood Pressure 121/69 Blood Pressure [Ri ght Arm] Blood Pressure [Ri ght Upper Arm] Pulse Oximetry 93 92 93 Oxygen Delivery Me thod 04/27/25 16:15 04/27/25 16:15 04/27/25 16:32 Temperature 101.1 F H Pulse Rate 109 H 107 H Pulse Rate [Left P ulse Oximeter] Pulse Rate [Pulse Oximeter] Respiratory Rate 16 Blood Pressure Blood Pressure [Ri ght Arm] Blood Pressure [Ri ght Upper Arm] Pulse Oximetry 94 95 Oxygen Delivery Me thod 04/27/25 16:33 04/27/25 16:45 04/27/25 16:46 Temperature Pulse Rate 108 H 106 H 105 H Pulse Rate [Left P ulse Oximeter] Pulse Rate [Pulse Oximeter] Respiratory Rate 20 21 16 Blood Pressure 111/70 120/67 Blood Pressure [Ri ght Arm] Blood Pressure [Ri ght Upper Arm] Pulse Oximetry 96 96 95 Oxygen Delivery Me thod 04/27/25 16:47 04/27/25 17:00 04/27/25 17:01 Temperature Pulse Rate 104 H 103 H 103 H Pulse Rate [Left P ulse Oximeter] Pulse Rate [Pulse Oximeter] Respiratory Rate 21 16 Blood Pressure 105/61 Blood Pressure [Ri ght Arm] Blood Pressure [Ri ght Upper Arm] Pulse Oximetry 96 95 95 Oxygen Delivery Me thod 04/27/25 17:15 04/27/25 17:30 04/27/25 17:31 Temperature Pulse Rate 102 H Pulse Rate [Left P ulse Oximeter] Pulse Rate [Pulse Oximeter] Respiratory Rate 18 19 Blood Pressure 99/61 Blood Pressure [Ri ght Arm] Blood Pressure [Ri ght Upper Arm] Pulse Oximetry 96 Oxygen Delivery Mi thod 04/27/25 18:02 04/27/25 18:35 04/27/25 18:35 Temperature 98.8 F Pulse Rate 95 Pulse Rate [Left P ulse Oximeter] Pulse Rate [Pulse Oximeter] Respiratory Rate 16 18 Blood Pressure 93/57 L 84/45 L Blood Pressure [Ri ght Arm] Blood Pressure [Ri ght Upper Arm] Pulse Oximetry 97 Oxygen Delivery Mi thod 04/27/25 18:36 04/27/25 18:38 04/27/25 18:45 Temperature Pulse Rate 97 95 95 Pulse Rate [Left P ulse Oximeter] Pulse Rate [Pulse Oximeter] Respiratory Rate 21 17 15 Blood Pressure 80/53 L Blood Pressure [Ri ght Arm] Blood Pressure [Ri ght Upper Arm] Pulse Oximetry 96 96 97 Oxygen Delivery Mi thod 04/27/25 19:00 04/27/25 19:01 04/27/25 19:15 Temperature Pulse Rate 94 94 92 Pulse Rate [Left P ulse Oximeter] Pulse Rate [Pulse Oximeter] Respiratory Rate Blood Pressure 83/55 L Blood Pressure [Ri ght Arm] Blood Pressure [Ri ght Upper Arm] Pulse Oximetry 97 97 98 Oxygen Delivery Mi thod 04/27/25 19:30 04/27/25 19:31 04/27/25 19:32 Temperature Pulse Rate 90 91 89 Pulse Rate [Left P ulse Oximeter] Pulse Rate [Pulse Oximeter] Respiratory Rate 17 17 19 Blood Pressure 104/52 L Blood Pressure [Ri ght Arm] Blood Pressure [Ri ght Upper Arm] Pulse Oximetry 97 98 97 Oxygen Delivery Mi thod 04/27/25 20:21 04/27/25 22:22 04/27/25 22:37 Temperature 97.9 F 97.9 F Pulse Rate Pulse Rate [Left P ulse Oximeter] 92 112 H 112 H Pulse Rate [Pulse Oximeter] Respiratory Rate 19 19 19 Blood Pressure Blood Pressure [Ri ght Arm] 98/56 L 156/82 H Blood Pressure [Ri ght Upper Arm] Pulse Oximetry 97 94 Oxygen Delivery Me thod Room Air Room Air 04/27/25 22:37 04/28/25 02:44 04/28/25 07:00 Temperature 98 F Pulse Rate Pulse Rate [Left P ulse Oximeter] 92 Pulse Rate [Pulse Oximeter] Respiratory Rate 19 18 Blood Pressure Blood Pressure [Ri ght Arm] 107/60 Blood Pressure [Ri ght Upper Arm] Pulse Oximetry 94 94 94 Oxygen Delivery Me thod Room Air Room Air Room Air 04/28/25 08:03 04/28/25 10:51 04/28/25 11:44 Temperature 98.1 F 99.0 F 99.4 F Pulse Rate Pulse Rate [Left P ulse Oximeter] 92 90 Pulse Rate [Pulse Oximeter] Respiratory Rate 16 16 Blood Pressure Blood Pressure [Ri ght Arm] 114/63 113/64 Blood Pressure [Ri ght Upper Arm] Pulse Oximetry 96 94 Oxygen Delivery Me thod Room Air Room Air 04/28/25 11:46 Temperature 99.4 F Pulse Rate Pulse Rate [Left P ulse Oximeter] Pulse Rate [Pulse Oximeter] Respiratory Rate Blood Pressure Blood Pressure [Ri ght Arm] Blood Pressure [Ri ght Upper Arm] Pulse Oximetry Oxygen Delivery Me thod DS: Data Data Completed and Pending Labs on day of discharge: Labs from last 24 hours 04/28/25 04/27/25 04/27/25 05:58 17:00 15:50 WBC 7.91 8.61 RBC 2.84 L 3.08 L Hgb 8.8 L 9.5 L Hct 27.5 L 29.6 L MCV 97 96 MCH 31 31 MCHC 32 32 RDW Coeff of Myrna 20.0 H 19.6 H Plt Count 159 189 Neut % (Auto) 81.9 H 85.9 H Lymph % (Auto) 5.8 L 3.3 L Kidder % (Auto) 11.9 H 10.1 Eos % (Auto) 0.0 0.0 Baso % (Auto) 0.1 0.1 Neut # (Auto) 6.50 7.40 H Lymph # (Auto) 0.50 L 0.30 L Kidder # (Auto) 0.90 0.90 Eos # (Auto) 0.00 0.00 Baso # (Auto) 0.01 0.01 Abs Immat Gran (auto) 0.02 0.05 Imm/Tot Granulo (auto) 0.3 0.6 VBG pH 7.427 VBG pCO2 38 L VBG pO2 33.1 VBG HCO3 25 Sodium 129 L 131 L Potassium 3.8 3.8 Chloride 101 100 Carbon Dioxide 24 26 Anion Gap 4 L 5 L BUN 30 30 Creatinine 1.3 1.1 Estimated Creat Clear 33.65 38.16 Estimated GFR 43 52 Glucose 126 H 134 H Lactate 1.0 1.1 Calcium 8.7 9.3 Phosphorus 3.3 Magnesium 1.9 Total Bilirubin 0.7 Direct Bilirubin 0.3 AST 33 ALT 22 Alkaline Phosphatase 80 C-Reactive Protein 14.3 H 2.3 H Total Protein 6.5 Albumin 3.5 Lipase 44 Procalcitonin 0.70 H Urine Color Yellow Urine Appearance Turbid A Urine pH 8.5 Ur Specific Tyro 1.020 Urine Protein 3+ A Urine Glucose (UA) Negative Urine Ketones Negative Urine Blood 2+ A Urine Nitrite Negative Urine Bilirubin Negative Urine Urobilinogen 0.2 Ur Leukocyte Esterase 3+ A Urine RBC 10-25 A Urine WBC 10-25 A Urine WBC Clumps Many A Ur Squamous Epith Cells Few Hippuric Acid Crystals Few A Urine Bacteria Moderate A SARS-CoV-2 (PCR) Negative SARS-CoV-2 Influenza Type A (PCR) Negative PCR FLU A Influenza Type B (PCR) Negative PCR FLU B RSV (PCR) Negative PCR RSV Preliminary micro results at discharge 04/27/25 17:00 Urine Culture - Preliminary Urine,Clean Catch Culture in Progress Imaging Chest x-ray: Attestation: I have reviewed the pertinent imaging results. Radiologist's impression: Medical Devices: Right-sided implantable port. Catheter tip is at the level of the mid superior vena cava. Tandem locking loop catheters are superimposed upon the posterior aspect of the right upper quadrant consistent with percutaneous nephrostomy tubes trauma for example in this patient with a history of cervical cancer. A 3rd pigtail catheter is also noted on the lateral view. Lung Volumes: Adequate inspiration. No significant atelectasis. Lungs: Clear lungs. Pleura and Pleural spaces: Small right posterior pleural effusion. No pneumothorax. Mediastinum: Normal cardiomediastinal silhouette. Bony Thorax and Soft Tissues: No significant incidental findings. 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 IMPRESSION: No findings to explain the clinical history of shortness of breath. Incidental findings described in the body of the report. Additional Comments Additional comments: 05/02/25: ID and sensitivities reviewed. Patient received IV Zosyn during hospital course and discharged on oral Levofloxacin. MRSA neg. BC x 2 negative. Discharge Plan Discharge Disposition: Home, Self-Care Date of Admission: 04/27/25 21:41 Attending Provider on Discharge: Jossie Herrera Primary Care Provider: Axel Palomo Condition: Stable Anticipated Discharge Date/Time: 04/29/25 07:30 Discharge Medications: New cefdinir 300 mg capsule 300 mg PO Q12H 5 Days Qty: 10 0RF Continued prochlorperazine maleate 10 mg tablet 10 mg PO Q6H PRN (Reason: nausea) polyethylene glycol 3350 [Miralax] 17 gram/dose powder 17 g PO DAILY PRN loperamide [Imodium A-D] 2 mg capsule 2 mg PO QID PRN olanzapine 2.5 mg tablet 2.5 mg PO HS PRN coenzyme Q10 [Co Q-10] 100 mg capsule 100 mg PO DAILY omega-3 fatty acids-fish oil 360-1,200 mg capsule 1 cap PO DAILY trazodone 50 mg tablet 50 mg PO HS carvedilol 25 mg tablet 25 mg PO BID Discharge Orders: Discharge Order (Routine); Ordered 04/29/25 Ordered By: Jossie Herrera Consulting provider completed their portion of the discharge: Yes Patient Education: Amoxicillin/Clavulanate Potassium (By mouth), Urinary Tract Infection in Women (DC), Hyponatremia (DC) Additional Instructions: -Patient is being discharged to a [facility] nephrology appointment on 04/29/2025 at 9:30 a.m.. -Received last dose of Zosyn on 04/29/2025 at 6:30 a.m. -Discharged with empirical oral antibiotics, pending urine culture results (previous have grown Pseudomonas and Enterococcus. Current urine culture is growing Gram negative rods). Will need to follow up on the urine culture and if needed, change the antibiotic as per sensitivities. -Patient will need to follow-up with primary care physician in 1 week. -Patient to resume home health nursing with [facility] home health with addition of physical therapy and occupational therapy. Activity Level: No Restrictions and Activity as Tolerated Discharge Diet: Regular Follow Up Appointments: Axel Palomo MD [Primary Care Provider, Family Practice] Forms: [employer] Info Instructions
--- NOTE | 2025-04-28 13:05 | NUTR.NU ---
RDN with nutrition screen for cervical cancer receiving ongoing treatment with [facility] and [facility] for chemotherapy, immunotherapy, and radiation therapy. Patient admitted with complicated UTI and sepsis. Medical history includes, but not limited to h/o insertion of nephrostomy tubes, ureteral obstruction, anemia, and chronic hyponatremia. Per chart review, patient is planning on discharging tomorrow morning to appointment at [facility] to change bilateral nephrostomy. RDN visited with patient and her sister in room on this day. Patient reports a poor appetite since cancer diagnosis. Patient reports eating 3 meals/day and drinks [employer] once daily. Patient brought these in to have during hospitalization. Patient declined other nutrition supplements at this time. [employer] once daily provides 170 kcals and 26 grams of protein. Encouraged patient to continue with this due to decreased appetite. Patient denied any recent changes in oral intakes. Per surgical services assistant, patient ate 100% of breakfast today. During visit patient had her lunch tray in room, but she did not touch it yet. Current weight 148lbs, height 5ft 5in and BMI 24.7 kg/m2. Weight remains fairly stable per weight history and patient report. Weight 148lbs 03/28/25. Patient reports a UBW of ~150lbs. RDN will continue to follow trends during hospitalization. RDN will continue to follow prn.
--- NOTE | 2025-04-28 14:15 | PC.SOCIAL ---
Discharge planning: Met with pt regarding d/c plan. Pt is planning to discharge early tomorrow morning and go straight to her appointment at [facility]. She shared that she is hoping to be discharged home from there but plans from there are dependent on what is done at the appointment. Pt shared she currently receiving home health care nursing from [facility]. She feels this is helpful and would like this to continue at discharge. Pt is agreeable to the addition of home health PT and OT if MD orders and is requesting this also be provided by [facility] if possible. Pt shared that she has no other discharge planning needs at this time. Called [facility] and spoke with intake [phone]. Confirmed pt is currently on service for home health nursing and add PT and OT services with this MD order included in the discharge orders. [facility] would not need a new face to face form to be completed for the addition of these services. chemical plant worker to follow up if home health services are ordered by MD.
--- NOTE | 2025-04-28 18:46 | PC.NURSE ---
Pt is doing well today. VSS. Denies pain. Pt reports feeling stronger in her legs. She is ambulating well with walker and one assist in the [place]quis. Pt's sister was at bedside all day today. Pt's appetite is increasing, she is tolerating oral intake well. Denies nausea. Pt is resting well in bed at this time. Pt plans to discharge in the morning via sister, Brooke.
[2025-04-28] MEDS: TRAZODONE HCL 50 MG TABLET PO (20:14)
[2025-04-29 03:00] VITALS: BP 128/69; PULSE 90; RESP 16; TEMP 37; O2SAT 93
[2025-04-29] MEDS: PIPERACILLIN/TAZOBACTAM 2.25 GM in 0.9 % SODIUM CHLORIDE Mini-bag 100 ML IVPB ×2 (03:29→06:10)
--- NOTE | 2025-04-29 06:47 | PC.NURSE ---
Discharge Note: Patient ambulated with SBA and a walker. Appeared to have gain significant strength since admission. No fever recorded, vitally stable. Nephrotomy tubes working well. No pain reported. Antibiotics given as prescribed.Discharge documentation and education given at 0530. Patient instructed on the need to present for her urology appointment at [place] scheduled for today at 0930. NPO started at midnight. Last antibiotics set up at 0610 and completed uneventfully at 0642.
--- NOTE | 2025-05-02 08:30 | ED.GENADULT ---
HPI - General Adult General Chief complaint: Weakness Stated complaint: Weakness Time Seen by Provider: 04/27/25 15:04 Source: patient and family Mode of arrival: ambulatory Limitations: no limitations History of Present Illness HPI narrative: Addendum 05/02/2025.. This patient was seen in the ER on 04/27/2025. She had urinalysis and culture. Culture is growing mixed benson but 1 of these does include Pseudomonas. No sensitivity data available at this time. She was admitted to the hospital for possible UTI and was treated with IV Zosyn. She was discharged on oral levofloxacin. 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 At this point we do not have sensitivity data to recommend changed antibiotics. Related Data Home Medications ?Medication ?Instructions ?Recorded ?Confirmed coenzyme Q10 100 mg capsule (Co 100 mg PO DAILY 02/10/25 04/28/25 Q-10) omega-3 fatty acids-fish oil 360 1 cap PO DAILY 02/10/25 04/28/25 mg-1,200 mg capsule prochlorperazine maleate 10 mg 10 mg PO Q6H PRN nausea 02/21/25 04/28/25 tablet loperamide 2 mg capsule (Imodium 2 mg PO QID PRN 03/07/25 04/28/25 A-D) polyethylene glycol 3350 17 17 g PO DAILY PRN 03/07/25 04/28/25 gram/dose oral powder (Miralax) olanzapine 2.5 mg tablet 2.5 mg PO HS PRN 03/14/25 04/28/25 trazodone 50 mg tablet 50 mg PO HS 03/14/25 04/28/25 carvedilol 25 mg tablet 25 mg PO BID 04/28/25 04/28/25 Previous Rx's ?Medication ?Instructions ?Recorded cefdinir 300 mg capsule 300 mg PO Q12H 5 days #10 caps 04/29/25 Allergies Allergy/AdvReac Type Severity Reaction Status Date / Time Iodinated Contrast Media AdvReac Severe Verified 04/27/25 15:02 ciprofloxacin (From Cipro) AdvReac Intermediate Diarrhea, Verified 04/28/25 11:02 calf cramping [facility] Medical History (Updated 05/02/25 @ 07:28 by Jossie Herrera PA-C) [place] (acute kidney injury) ?N17.9 - Acute kidney failure, unspecified (ICD-10) Ureteral obstruction ?N13.5 - Crossing vessel and stricture of ureter without hydronephrosis (ICD-10) Squamous cell carcinoma of cervix ?C53.9 - Malignant neoplasm of cervix uteri, unspecified (ICD-10) Hyponatremia ?E87.1 - Hypo-osmolality and hyponatremia (ICD-10) Pure hypercholesterolemia ?E78.00 - Pure hypercholesterolemia, unspecified (ICD-10) Essential hypertension ?I10 - Essential (primary) hypertension (ICD-10) Surgical History (Updated 05/02/25 @ 07:22 by Jossie Herrera PA-C) H/O insertion of nephrostomy tube ?Z98.890 - Other specified postprocedural states (ICD-10) Social History What is your current living situation?: I presently have a place to live Problems where you live: no known problems Problems where you live details: N/A In the past 12 months, utilities in danger of being shut off: no In past 12 months, lack of transportation kept you from medical appts, meetings, work, or getting things needed for daily living: no In the past 12 mos, have been you worried that your food would run out before you had money to buy more?: never true In the past 12 mos, the food you bought just didn't last and you didn't have money to buy more?: never true Smoking Status: Never smoker Second hand tobacco smoke exposure: No How often do you have a drink containing alcohol: never AUDIT-C Alcohol total score: 0 Non-prescribed substance use: denies use Caffeine: Yes (1c/day) How often does anyone, including family, friends and others, physically hurt you: never How often does anyone, including family, friends and others, insult or talk down to you: never How often does anyone, including family, friends and others, threaten you with harm: never How often does anyone, including family, friends and others, scream or curse at you: never Are you using contraception or practicing any form of control: No service: No Course Vital Signs Vital signs: Initial Vital Signs Temperature 99.3 F 04/27/25 15:11 Temperature Source Temporal Artery Scan 04/27/25 15:11 Pulse Rate 108 H 04/27/25 15:11 Respiratory Rate 16 04/27/25 15:11 Blood Pressure 135/69 04/27/25 15:11 Blood Pressure Mean 91 04/27/25 15:11 Blood Pressure Position High-Fowlers 04/27/25 15:11 Pulse Oximetry 94 04/27/25 15:11 Oxygen Delivery Method Room Air 04/27/25 15:11 Vital Signs Temperature 99.3 F 04/27/25 15:11 Pulse Rate 108 H 04/27/25 15:11 Respiratory Rate 16 04/27/25 15:11 Blood Pressure 135/69 04/27/25 15:11 Pulse Oximetry 94 04/27/25 15:11 Oxygen Delivery Method Room Air 04/27/25 15:11 Temperature 98.6 F 04/29/25 03:00 Pulse Rate 90 04/29/25 03:00 Respiratory Rate 16 04/29/25 03:00 Blood Pressure 128/69 04/29/25 03:00 Pulse Oximetry 93 04/29/25 03:00 Oxygen Delivery Method Room Air 04/29/25 03:00 Medications Administered Medications: Discontinued Medications Generic Name Dose Route Start Last Admin Trade Name Freq PRN Reason Stop Dose Admin Acetaminophen 650 mg 04/27/25 15:40 04/27/25 16:15 Acetaminophen 500 Mg Tablet PO 04/27/25 15:41 650 mg ONCE ONE Administration Acetaminophen 650 mg 04/27/25 21:41 04/28/25 11:46 Acetaminophen 325 Mg Tablet PO 650 mg Q6H PRN Administration Sodium Chloride 250 mls @ 250 mls/hr 04/27/25 15:42 04/27/25 18:05 0.9 % Sodium Chloride 250 Ml IV 04/27/25 16:41 Infused .Q1H ONE Infusion Piperacillin Sod/Tazobactam 100 mls @ 200 mls/hr 04/27/25 17:29 04/27/25 18:29 Sod 2.25 gm/ Sodium Chloride IVPB 04/27/25 17:30 Infused ONCE ONE Infusion Sodium Chloride 500 mls @ 500 mls/hr 04/27/25 18:19 04/27/25 19:43 0.9 % Sodium Chloride 500 Ml IV 04/27/25 19:18 Infused .Q1H ONE Infusion Sodium Chloride 1,000 mls @ 125 mls/hr 04/27/25 21:41 04/28/25 16:46 0.9 % Sodium Chloride 1000 Ml IV 04/28/25 13:40 Infused .Q8H LUCIAN Infusion Piperacillin Sod/Tazobactam 100 mls @ 200 mls/hr 04/27/25 23:30 04/28/25 09:20 Sod 2.25 gm/ Sodium Chloride IVPB Infused Q6H LUCIAN Infusion Piperacillin Sod/Tazobactam 100 mls @ 200 mls/hr 04/28/25 08:30 04/29/25 06:10 Sod 2.25 gm/ Sodium Chloride IVPB 200 mls/hr Q6H LUCIAN Administration Sodium Chloride 5 ml 04/27/25 21:41 04/28/25 20:15 Sodium Chloride 0.9 % (Flush) 10 Ml Syringe IVF 5 ml BID LUCIAN Administration Trazodone HCl 50 mg 04/27/25 21:41 04/28/25 20:14 Trazodone Hcl 50 Mg Tablet PO 50 mg HS LUCIAN Administration Medical Decision Making Lab Data Labs: Lab Results 04/27/25 04/27/25 Range/Units 15:50 17:00 WBC 8.61 (4.50-11.00) K/uL RBC 3.08 L (4.00-5.20) m/uL Hgb 9.5 L (12.0-16.0) gm/dL Hct 29.6 L (33.0-51.0) % MCV 96 (80-100) fL MCH 31 (26-34) pg MCHC 32 (32-36) gm/dL RDW Coeff of Myrna 19.6 H (11.5-15.5) % Plt Count 189 (140-440) K/uL Neut % (Auto) 85.9 H (42.0-72.0) % Lymph % (Auto) 3.3 L (20-44) % [place] % (Auto) 10.1 (0.0-11.0) % Eos % (Auto) 0.0 (0.0-7.0) % Baso % (Auto) 0.1 (0.0-3.0) % Neut # (Auto) 7.40 H (1.7-7.0) K/uL Lymph # (Auto) 0.30 L (0.90-2.90) K/uL [place] # (Auto) 0.90 (0.00-0.90) K/UL Eos # (Auto) 0.00 (0.00-0.50) K/uL Baso # (Auto) 0.01 (0.00-0.30) K/uL Abs Immat Gran (auto) 0.05 (0.00-0.30) K/uL Imm/Tot Granulo (auto) 0.6 % Sodium 131 L (135-149) mmol/L Potassium 3.8 (3.6-5.1) mmol/L Chloride 100 (96-114) mmol/L Carbon Dioxide 26 (20-32) mmol/L Anion Gap 5 L (7-15) mEq/L BUN 30 (7-30) mg/dL Creatinine 1.1 (0.5-1.5) mg/dL Estimated Creat Clear 38.16 Estimated GFR 52 ml/min Glucose 134 H (60-115) mg/dL Lactate 1.1 (0.5-1.9) mmol/L Calcium 9.3 (8.4-10.6) mg/dL Total Bilirubin 0.7 (0.1-1.5) mg/dL Direct Bilirubin 0.3 (0.0-0.5) mg/dL AST 33 (12-35) U/L ALT 22 (4-35) U/L Alkaline Phosphatase 80 (40-150) U/L C-Reactive Protein 2.3 H (0.5-1.0) mg/dL Total Protein 6.5 (6.0-8.3) g/dL Albumin 3.5 (3.3-5.0) g/dL Procalcitonin 0.70 H (<0.50) ng/mL Urine Color Yellow (Yellow) Urine Appearance Turbid A (Clear) Urine pH 8.5 (5.0-8.5) Ur Specific [place] 1.020 (1.000-1.030) Urine Protein 3+ A (Negative) Urine Glucose (UA) Negative (Negative) Urine Ketones Negative (Negative) Urine Blood 2+ A (Negative) Urine Nitrite Negative (Negative) Urine Bilirubin Negative (Negative) Urine Urobilinogen 0.2 (0.2-1.0) Ur Leukocyte Esterase 3+ A (Negative) Urine RBC 10-25 A (0-2) Urine WBC 10-25 A (0-5) Urine WBC Clumps Many A (None) Ur Squamous Epith Cells Few (None-Few) Hippuric Acid Crystals Few A (None) Urine Bacteria Moderate A (None) SARS-CoV-2 (PCR) Negative SARS-CoV-2 (Negative) Influenza Type A (PCR) Negative PCR FLU A (Negative) Influenza Type B (PCR) Negative PCR FLU B (Negative) RSV (PCR) Negative PCR RSV (Negative) Discharge Plan Discharge Clinical Impression: Acute UTI, Fever, Acute hyponatremia, Anemia Patient Disposition: Admitted As Observation Condition: Stable Activity Level: No Restrictions and Activity as Tolerated Discharge Diet: Regular
--- NOTE | 2025-05-02 09:23 | PM.EN ---
Chart Event Note Time Seen by Provider: : Date Seen: 05/02/25 Chart Event Note: 74-year-old female with cervical cancer and bilateral nephrostomy tubes hospitalized last week with sepsis from a UTI. She was treated in the hospital with Zosyn and discharged on cefdinir. Nephrostomy tubes were changed on April 29 at [facility]. Culture grew Pseudomonas sensitive to Levaquin. Patient reports that she still is bothered by significant fatigue. She is not having any fevers. I discussed with patient plan of care. She already has a prescription for Levaquin 500 mg daily for 7 days. I have asked her to start taking that. I also explained that it is unclear whether her prominent fatigue is related to her urinary infection or other health conditions. I also indicated that recurrent urinary infections are likely with nephrostomy tubes.
== END 2025-04-29 07:21 | disposition home or self-care (01) | DRG 872 ==
LOC: ED 18:32 → MEDSURG 19:46
PROVIDERS: Admitting Provider Internal Medicine; Emergency Provider Family Medicine; PCP Family Medicine; Visit Provider Internal Medicine
DX: A41.9 Sepsis, unspecified organism (principal); T83.512A Infection and inflammatory reaction due to nephrostomy catheter, initial encounter; N39.0 Urinary tract infection, site not specified; E87.1 Hypo-osmolality and hyponatremia; N13.1 Hydronephrosis with ureteral stricture, not elsewhere classified; C79.9 Secondary malignant neoplasm of unspecified site; B96.5 Pseudomonas (aeruginosa) (mallei) (pseudomallei) as the cause of diseases classified elsewhere; D64.9 Anemia, unspecified; I10 Essential (primary) hypertension; E78.00 Pure hypercholesterolemia, unspecified; C53.9 Malignant neoplasm of cervix uteri, unspecified
CPT/HCPCS: 36415; 71046; 80048; 80076; 81001; 82803; 83605; 83690; 83735; 84100; 84145; 85025; 86140; 87040; 87081; 87086; 87631; 97116; 97161; 97530; 99281; 99284; 99285; A9270; J2543; J7030; J7050

== ENCOUNTER 2025-06-07 10:30 | Outpatient (CLI) | payer MEDICARE, BC, SELFPAY | END 2025-06-07 10:31 | disposition home or self-care (01) | LOC: NFLDREF 06-13 16:15 | PROVIDERS: PCP Family Medicine; Referring Provider Family Medicine | DX: N30.01 Acute cystitis with hematuria (principal) | CPT/HCPCS: 87086 ==

== ENCOUNTER 2025-06-30 14:11 | Outpatient (CLI) | payer MEDICARE, BC, SELFPAY ==
--- NOTE | 2025-06-30 14:30 | CRLHL7_ITS ---
For Patients: As a result of the Century Cures Act, medical imaging exams and procedure reports are released immediately into your electronic medical record. You may view this report before your referring provider. If you have questions, please contact your health care provider. EXAM: FDG PET-CT Skull Base to Thighs CLINICAL INFORMATION: 74-year-old woman with history of cervical cancer. Clinical history of UTI and sepsis with hospitalization 04/27/2025 to 04/29/2025. Restaging TECHNIQUE: Radiopharmaceutical: 18F-fluorodeoxyglucose (18F-FDG) Dose: 12.2 milliCurie. Blood glucose: 111 mg/dL. Image acquisition: At approximately 60 minutes following IV tracer administration via a right antecubital vein, positron emission tomography was performed from the skull base through the mid thigh. Non-contrast low-dose helical CT imaging was performed over the same range without breath-hold for attenuation correction of PET images and anatomic correlation; it is neither sufficient, nor should it be substituted for diagnostic purposes. COMPARISON: FDG PET-CT 01/27/2025 FINDINGS: Mediastinal blood pool FDG uptake: SUVMax 2.4 (Image 95) Liver background parenchymal FDG uptake: SUVMax 2.8 (Image 126) PET Findings: *Decreased size of a faintly FDG avid 3.2 x 1.9 cm cervical mass SUVMax 2.2 (Image 229), previously 4.9 x 4.6 cm SUVMax 6.0. *Resolution of FDG uptake at sites of previously imaged disease extension in the uterus and vaginal canal. New cluster of FDG avid retroperitoneal lymphadenopathy involving para-aortic and aortocaval jody stations, for example: *1.2 x 1.0 cm anterior para-aortic node SUVMax 2.7 (Image 179) *1.6 x 1.3 Cm aortocaval node SUVMax 3.5 (Image 177) There is associated with new faintly FDG avid mesenteric stranding, adjacent to the retroperitoneal lymphadenopathy, and there is also new faint FDG uptake associated with ill-defined ventral peritoneal nodularity in the ventral mid to lower abdominal wall SUVMax 1.6 (image 185). No abnormal focal increased FDG uptake in the visualized skeleton. Relative photopenia of lumbar spine and sacrum likely from prior radiation. Mildly to moderately FDG avid subpleural ground-glass opacity measuring up to 7.1 cm in the posterolateral left lower lobe with reverse halo sign likely represents organizing pneumonia. New mildly FDG avid left hilar node is likely inflammatory SUVMax 2.5 (Image 94). Tracer uptake elsewhere is physiologic. Non-PET findings: Minimal opacification of the left maxillary sinus. Right internal jugular port catheter with the tip terminating at the cavoatrial junction. New small left pleural effusion. Coronary artery calcifications. Atherosclerotic calcifications of the thoracic and abdominal aorta. Duplex right kidney. Bilateral percutaneous nephrostomy tubes, including separate catheters for right upper and lower pole moieties. Uterine fibroid. Multilevel degenerative changes in the spine. IMPRESSION: 1. Decreased size of a faintly FDG avid 3.2 x 1.9 cm cervical mass, representing posttreatment change. There is also resolution of FDG uptake at sites of previously imaged disease extension in the uterus and vaginal canal, also representing posttreatment change. 2. New cluster of mildly to moderately FDG avid retroperitoneal para-aortic and aortocaval jody stations may be inflammatory or metastatic, in the setting of immunotherapy. 3. New faintly FDG avid mesenteric stranding, adjacent to the retroperitoneal lymphadenopathy, and new faint FDG uptake associated with ill-defined ventral peritoneal nodularity in the ventral mid to lower abdominal wall, as nonspecific. Differential considerations include faint FDG uptake from new mesenteric/peritoneal metastases, versus inflammatory change, in the setting of immunotherapy. 4. Mildly to moderately FDG avid subpleural ground-glass opacity measuring up to 7.1 cm in the posterolateral left lower lobe with reverse halo sign likely represents organizing pneumonia. This may be related to immunotherapy. 5. New small left pleural effusion. 6. New mildly FDG avid left hilar node is likely inflammatory. Dictated by David Herrera MD @ 07/02/2025 11:11:06 AM (Electronically Signed)
== END 2025-06-30 14:12 | disposition home or self-care (01) ==
LOC: RAD 14:12
PROVIDERS: PCP Family Medicine; Visit Provider Nurse Practitioner
DX: C53.9 Malignant neoplasm of cervix uteri, unspecified (principal); J90 Pleural effusion, not elsewhere classified
CPT/HCPCS: 78815; A9552

== ENCOUNTER 2025-07-14 12:27 | Outpatient (CLI) | payer MEDICARE, BC, SELFPAY ==
--- NOTE | 2025-07-14 13:00 | CRLHL7_ITS ---
For Patients: As a result of the 21st Century Cures Act, medical imaging exams and procedure reports are released immediately into your electronic medical record. You may view this report before your referring provider. If you have questions, please contact your health care provider. Indication: Malignant neoplasm cervix Technique: CT Abdomen/Pelvis WITH 72 CC ISOVUE 370 AND WATER intravenous contrast Please note that all CT scans at this facility use dose modulation, iterative reconstruction, and/or weight-based dosing when appropriate to reduce radiation dose to as low as reasonably achievable. Comparison: CT-PET 06/30/2025, CT abdomen and pelvis 01/06/2025 Findings: In the lung bases, bilateral pulmonary emboli are noted. Decreased left pleural effusion. Residual subpleural densities left lateral lung base. In the abdomen, aortocaval adenopathy is present corresponding with the prior CT PET and measures 1.9 cm. Additional numerous other sub cm aortocaval and left periaortic lymph nodes are present elsewhere in the retroperitoneum. Bilateral nephrostomy tubes are present. No hydronephrosis. Chronic fat density area within the right kidney with associated right renal cortical thinning. Spleen is unremarkable with incidental adjacent splenule. Cystic pancreatic lesion in the pancreatic tail measures 1.4 cm, similar to the 01/06/2025 CT. Gallbladder incompletely distended. No intrahepatic mass. Faint nodular densities are present within the left anterior mesenteric fat, measuring less than 1 cm, see series 2, image 83. This appears to correspond with the CT PET and appear to be unchanged compared to 01/06/2025. Thrombus is noted within the inferior vena cava extending from just superior to the renal veins and extending inferiorly into the right common iliac vein. Clot also appears to extend into the proximal right renal vein. No fracture is present. In the pelvis, a lobular low-density cervical mass is again noted which measures 3.3 x 2.3 x 2.7 cm in the anterior-posterior, craniocaudad and transverse dimensions, respectively. Uterine fibroids are present, including a posterior exophytic fibroid which measures 5 cm. There is also a left posterior calcified exophytic fibroid which measures 2.6 cm. Increased stool noted within the rectum. No mechanical bowel obstruction. 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 Called to Gris in the [facility] at 1025 am 10.24.25. Compared to the recent CT PET, similar size of the low-density cervical mass measuring 3.3 cm. Also similar are retroperitoneal lymph nodes measuring up to 1.9 cm. Nodular densities in the left anterior mesenteric fat are unchanged compared to prior CT 01/06/2025. Resolution of small left pleural effusion with residual scarring in the periphery of the left lower lobe. Bilateral nephrostomy tubes. No hydronephrosis. Please note that all CT scans at this facility use dose modulation, iterative reconstruction, and/or weight-based dosing when appropriate to reduce radiation dose to as low as reasonably achievable. Dictated by Leonel Elizabeth MD @ 07/15/2025 10:32:54 AM (Electronically Signed)
[2025-07-14 13:03] LABS: Creatinine* 1.3 mg/dL (0.5-1.5); Estimated Glomerular Filt Rate 43 ml/min
== END 2025-07-14 12:28 | disposition home or self-care (01) ==
LOC: CT 12:29
PROVIDERS: PCP Family Medicine; Visit Provider Radiology Radiation Oncology
DX: C53.9 Malignant neoplasm of cervix uteri, unspecified (principal); I26.99 Other pulmonary embolism without acute cor pulmonale; J90 Pleural effusion, not elsewhere classified
CPT/HCPCS: 36415; 74177; 82565; Q9967

== ENCOUNTER 2025-07-15 14:14 | Inpatient (IN) | payer MEDICARE, BC, SELFPAY ==
--- OUTSIDE RECORDS SUMMARY | 2025-06-23 14:00 | XMS_ITS | Encounter Summary ---
Author Organization [facility] Address [address] [place] [address] Phone Care Team Providers Care Mate Relief Name Role Phone Votel, Axel PALMA Primary Care Provider [phone] Reason for Referral * Consultation (Routine) - Pending Review Specialty Diagnoses / Procedures Referred By Pastora piedra Referred To Contact Diagnoses History of acute kidney injury Urinary tract infection, not otherwise specified Hydroureteronephrosis Hoang Galvez MD [address] [place] [address] Phone: tel: fax: Referral ID Status Reason Start Date Expiration Date Visits Requested Visits Authorized [id number] Pending Review Specialty Services Required 06/23/2025 06/23/2026 1 1 Reason for Visit * Reason Comments CKD New Patient * Nephrology Services (Routine) - Closed Specialty Diagnoses / Procedures Referred By Pastora piedra Referred To Contact Nephrology Diagnoses Other specified postprocedural state Votel, MD Axel [address] [place] [address] Phone: tel: fax: [facility] [address] [place] [address] Phone: tel: fax: Referral ID Status Reason Start Date Expiration Date Visits Re quested Visits Authorized [id number] Closed 05/18/2025 05/18/2026 1 1 Encounter Details Date Type Department Care Team (Late st Contact Info) Description 06/23/2025 2:00 PM CDT [facility] [place] [address] [place] [address] Hoang Galvez MD [address] [place] [address] History of acute kidney injury [...] follow up needed. At [facility], our goal is to work with you [...] all of us at [facility] documented in this encounter Progress Notes * Hoang Galvez MD - 06/23/2025 2:00 PM CDT Images from the original note were not included. Patient: Alyssa Garcia Date of : 1950 Chart: [id number] PCP: Axel Palomo MD ([facility]) Referring Provider: Axel Palomo MD Date [...] to 7.2 so she was transferred to [place]. CT AP at that time showed new [...] to be performed. Concern for underlying malignancy, termite control representative/onc consulted. Pelvic MRI demonstrated likely cervical primary with invasion of the posterior bladder and anterior mesorectal fascia. S/p exam under anesthesia and biopsy 01/13. Plan to follow up with termite control representative/onc for outpatient PET scan and given renal function had improved to follow with PCP. Also HCTZ was stopped, metoprolol changed to Coreg. 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 She's been treated with chemo, radiation and immunotherapy. She notes since discharge she's having trouble managing the perc neph tubes. She's contacted [facility] several times reportedly but no help and so she finally called [facility] and they are helpingarrange the PNT [...] 2/2 central obstruction. I saw her at [place]. PNTs were inserted 01/07/25 and creatinine downtrended [...] cervical cancer. Since discharge she's talked with [facility] who are now managing these ordersand [...] with chemo, radiation and immunotherapy. Management per termite control representative- onc and oncology. Return if symptoms worsen or fail to improve. 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 palonosetron (ALOXI) 0.25 MG/5ML injection Alysha Dorsye MD Infuse 0.25 mg into a venous [...] Hydroureteronephrosis documented in this encounter Care Teams Mate Relief Relationship Specialty Start Date End Date Votel, MD Axel [address] [place] [address] PCP - General Family Medicine 05/18/25 documented as of this encounter
--- OUTSIDE RECORDS SUMMARY | 2025-07-06 13:52 | XMS_ITS | Encounter Summary ---
Author Organization [facility] Address [address] [place] [address] Care Team Providers Care Cabana Attendant Name Role Phone Unavailable Primary Care Provider Unavailabl e Reason for Referral * Outpatient (Routine) - Authorized Specialty Diagnoses / Procedures Referred By Contac t Referred To Contact Radiation Oncology Sonya Wade P.A.-C., M.STaylor [address] [place] [address] Phone: tel: fax: Thelma Streeter M.D. [address] [place] [address] Phone: tel: fax: Referral ID Status Reason Start Date Expiration Date V isits Requested Visits Authorized [id number] Authorized 07/06/2025 01/05/2027 1 1 Scheduling Instructions PET-CT prior at [facility]; please get images and report prior to visit * Outpatient (Routine) - Closed Specialty Diagnoses / Procedures Referred By Contac t Referred To Contact Radiation Oncology Thelma Streeter M.D. [address] [place] [address] Phone: tel: fax: [facility] Region Referral ID Status Reason Start Date Expiration Date Visits Re quested Visits Authorized [id number] Closed 04/28/2025 10/28/2026 1 1 Scheduling Instructions After PET/CT. Please write GYNE EXAM ROOM in notes, thanks! Reason for Visit * Outpatient (Routine) - Closed Specialty Diagnoses / Procedures Referred By Pastora t Referred To Contact Radiation Oncology Thelma Streeter M.D. [address] [place] [address] Phone: tel: fax: [facility] Referral ID Status Reason Start Date Expiration Date Visits Re quested Visits Authorized [id number] Closed 04/28/2025 10/28/2026 1 1 Encounter Details Date Type Department Care Team (Latest Contact Info) Description 07/06/2025 1:52 PM CDT - 07/06/2025 9:03 PM CDT Hospital Encounter Department of Radiation Oncology in [place], [place] [address] [place] [phone] Thelma Streeter M.D. [address] [place] [address] Malignant Neoplasm Of Cervix (HCC) (Primary Dx) Social History Tobacco Use Types Packs/Day Years Used Date Smoking Tobacco: Never Smokeless Tobacco: Never Alcohol Use Standard Drinks/Week Comments Not Currently 0 (1 standard drink = 0.6 oz pure alcohol) Quit drinkinking in August after pelvic pain started. [facility] Utilities Answer Date Recorded In the past 12 months has e [employer], [employer], oil, or water [employer] threatened to shut off services in your [...] your living situation today? 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 She was admitted to [facility] and eventually discharged on January 14. [...] 02/02/[address] Sarah Coto, [place] Oncology. Discussed treatment options including chemoradiotherapy [...] severity as well. She reports averaging a bowelmovement every 1-3 days with taking Senna. She denies rectal bleeding. She denies vaginal dischargeor bleeding. She is using the vaginal dilator every third day and states that she is almost up to si ze #5. She denies shortness of breath, cough, [...] patient would like the imaging performed at [facility] and orders will be placed. Of note, the patient confirmed that she does not have an allergy to Iohexol and she states that she can receive IV contrast for CT scans. The patient is scheduled for bilateral nephrostomy tube exchange and a follow-up visit with Jessie Borden C.N.P. in Urology in [place] on August 05, 2025. We reviewed Jessie's [...] Wade P.A.-C., M.S. 07/06/2025 3:49 PM CDT [facility] [address] [place] [address] Cosigned by Thelma Streeter M.D. at 07/06/2025 9:02 PM CDT Associated attestation - Thelma Streeter M.D. - 07/06/2025 9:02 PM CDT I saw and evaluated the patient and participated in the [place] portions of the service as noted below.Please see . Sonya Wade PA-C, MS note for additional details. On exam she appears well. She has external nephrostomy tubes in place. Abdominal exam was normal with good bowel sounds. Soft abdomen, non-tender and non- distended. No inguinal adenopathy. Pelvic exam was performed with her sister as aircraft charter dispatcher. Normal external genitalia. Her vagina appeared normal,but [...] st Contact Info) Description 08/05/2025 11:00 AM EHS TEACHER Appointment Department of Radiology, [facility] in [place], [place] [address] [place] [phone] Jessie Borden APRN, C.N.P., D.N.P. [address] [place] [phone] 08/05/2025 2:30 PM EHS TEACHER Office Visit Department of Urology in [place], [place] [address] [place] [phone] Jessie Borden APRN, C.N.P., D.N.P. [address] [place] [phone] Scheduled Orders Name Type Priority Associated Diagnoses Orde r Schedule Creatinine with Estimated GFR Lab Routine Malignant Neoplasm Of Cervix (HCC) Expected: 07/06/2025, Expires: 10/06/2026 Scheduled Referrals Name Type Priority Associated Diagnoses Order Schedule Radiation Oncology office visit (clinic) Outpatient Referral Routine Once for 1 Occurrences starting 07/06/2025 until 07/06/2025 Radiation Oncology office visit (clinic) Outpatient Referral Routine Expected: 10/06/2025, Expires: 10/06/2026 documented as of this encounter Visit Diagnoses Diagnosis Malignant Neoplasm Of Cervix (HCC)- Primary documented in this encounter
[2025-07-15] VITALS (22 sets, daily range): BP systolic 138–183; BP diastolic 91–116; PULSE 83–103; RESP 16–20; TEMP 36.4–36.9; O2SAT 91–98; BMI 24.5; BMI 24.8; BMI 24.9
--- OUTSIDE RECORDS SUMMARY | 2025-07-15 14:16 | XMS_ITS | Patient Health Record ---
Author Organization [facility] Address [address] [place], [place] [phone] Care Team Providers Care Manager Home Healthcare Name Role Phone Dev Mckeon Primary Care Provider Allergies No Known Allergies Reason For Referral No Information Medications Medication SIG (Take, Route, Frequency, Duration) Notes Start Date End Date Status [place] 3 1000 MG 1 capsule Orally Thr [...] Problem Status W/U Status Risk Notes Problem Information temporarily unavailable Primary hypertension (I10) Active confirmed Vital Signs Heart Rate 70 /min 12/03/2024 Temperature 97.2 degrees Fahrenheit 12/03/2024 Respiratory Rate 16 /min 12/03/2024 Blood pressure diastolic 98 mm Hg 12/03/2024 Weight-kg 70.67 kg 12/03/2024 Blood pressure systolic 158 mm Hg 12/03/2024 Weight 155.8 lbs 12/03/2024 Encounters Encounter Location Date Provider Diagnosis [facility] [address] [place], [place] [phone] 12/03/2024 Dev Mckeon Abdominal bloating R14.0 and Intermittent constipation K59.09 [facility] [address] [place], [place] [phone] 12/06/2024 Dev Wilsoner Assessments Encounter Date Diagnosis [...] End Date [employer] [address] [address] [place] [address] [id number] Rosa Garcia Self - patient is the [...]
--- OUTSIDE RECORDS SUMMARY | 2025-07-15 14:16 | XMS_ITS | Clinical Summary ---
Author Organization [facility] Address [address] [place] [address] Care Team Providers Care Incident Manager Name Role Phone Unavailable Primary Care Provider Unavailabl e Source Comments Patient records contain information from all sites at [facility]. For routine questions regarding patient records, call [phone] during business hours, M-F 8:00 AM - 5:00 PM Central Time. 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 07/07/2025 Orders Only Department of Radiation Oncology in [address] [phone] Thelma Streeter M.D. Malignant Neoplasm Of Cervix (HCC) (Primary Dx) 07/06/2025 1:52 PM CDT - 07/06/2025 9:03 PM CDT Hospital Encounter Department of Radiation Oncology in [address] [phone] Thelma Streeter M.D. Malignant Neoplasm Of Cervix (HCC) (Primary Dx) 05/11/2025 Clinical Communication Department of Radiation Oncology in [address] [phone] Moon Gong RGerber 04/29/2025 8:46 AM CDT - 04/29/2025 12:08 PM CDT Hospital Encounter Department of Radiology, [facility], in [place], [place] [address] [place] [phone] Jessie Borden APRN, C.N.P., D.N.P. Liang Foster M.D. Hydronephrosis Discharge Disposition: Home or Self Care 04/29/2025 Orders Only Department of Urology in [place], [place] [address] [place] [address] Jessie Borden APRN, C.N.P., D.N.P. 04/29/2025 Orders Only Division of Gastroenterology in [place], [place] [address] [place] [address] Freya Mccauley R.N. Nephrostomy Status Post (HCC) (Primary Dx) 04/28/2025 1:51 PM CDT - 04/28/2025 4:23 PM CDT Hospital Encounter Department of Radiation Oncology in [place], [place] [address] [place] [address] Thelma Streeter M.D. Malignant Neoplasm Of Cervix (HCC) (Primary Dx); Abnormal Urinalysis 04/26/2025 1:00 PM CDT Comprehensive Visit Department of Urology in [place], [place] [address] [place] [phone] Jessie Borden APRN, C.N.PTaylor, D.N.P. Hydronephrosis (Primary Dx); Malignant Neoplasm Of Cervix (HCC) 04/26/2025 11:40 AM CDT - 04/26/2025 11:59 PM CDT Hospital Encounter Department of Laboratory Medicine and Pathology, [facility] in [place], [place] [address] [place] [phone] Thelma Streeter M.D. Malignant Neoplasm Of Cervix (HCC) Discharge Disposition: Home or Self Care 04/26/2025 10:45 AM CDT Lab Department of Urology in [place], [place] [address] [place] [phone] Thelma Streeter M.D. Malignant Neoplasm Of Cervix (HCC) 04/26/2025 Orders Only Department of Urology in [place], [place] [address] [place] [phone] Jessie Borden APRN, C.N.PTaylor, D.N.PTaylor Hydronephrosis (Primary Dx) 04/26/2025 Orders Only Department of Radiation Oncology in [address] [phone] Thelma Streeter M.D. Malignant Neoplasm Of Cervix (HCC) (Primary Dx) from Last 3 Months Social History Tobacco Use Types Packs/Day Years Used Date Smoking Tobacco: Never Smokeless Tobacco: Never Tobacco Cessation:Counseling Given: Not Answered Alcohol Use Standard Drinks/Week Comments Not Currently 0 (1 standard drink = 0.6 oz pure alcohol) Quit drinkinking in August after pelvic pain started. [facility] Utilities Answer Date Recorded In the [...] your living situation today? [facility] live 03/21/2025 Comments No Sex and Gender Information Value Date Recorded Sex Assigned at Female 03/05/2025 6:51 AM CDT Legal Sex Female 6:12 PM CUSTOMS AGENT Gender Identity Female 03/05/2025 6:51 AM CDT Sexual Orientation Straight 03/05/2025 6: 51 AM CDT Last Filed Vital Signs Vital Sign Reading Time Taken Comments Blood Pressure 116/75 07/06/2025 2:03 PM CDT Pulse 83 07/06/2025 2:03 PM CDT Temperature 35.9 C (96.6 F) 07/06/2025 2:03 PM CDT Respiratory Rate 18 04/29/2025 11:33 AM CDT Oxygen Saturation 96% 04/29/2025 11:33 AM CDT Inhaled Oxygen Concentration - - Weight 66.4 kg (146 lb 6.2 oz) 07/06/2025 2:03 P M CDT Height 163 cm (5' 4.17) 04/11/2025 6:46 AM CDT Body Mass Index 24.99 04/11/2025 6:46 AM CDT Plan of Treatment Upcoming Encounters Date Type Department Care Team (Late st Contact Info) Description 08/05/2025 11:00 AM CUSTOMS AGENT Appointment Department of Radiology, [facility], in [place], [place] [address] [place] [phone] Jessie Borden APRN, C.N.P., D.N.P. [address] [place] [phone] 08/05/2025 2:30 PM CUSTOMS AGENT Office Visit Department of Urology in [place], [place] [address] [place] [phone] Jessie Borden APRN, C.N.P., D.N.P. [address] [place] [phone] Health Maintenance Due Date Last Done Comments Bone Density Scan (Osteoporosis Screen) 1950 CT Colonography 1950 Hepatitis C Screening 1950 Office Visit for Blood Pressure Check / Re-check 1950 DTaP,Tdap,and Td Vaccines (1 - Tdap) 1968 Pneumococcal vaccine (50+ years) (1 of 2 - PCV) 1968 Zoster Vaccines (1 of 2) 1968 Mammogram 03/15/1999 03/15/1998 Depression Screening (Annual PHQ-2) 09/22/2024 RSV vaccine - (32-36 weeks) or 50+ years (1 - 1-dose 75+ series) 2024 Lipid (Cholesterol) Screening 12/29/2024 12/30/2023, 09/11/2023, 06/11/2023, Additional history exists COVID-19 Vaccine ( - 2024- season) 2025 07/02/2023, 07/26/2021, 01/02/2021, Additional history exists Influenza Vaccine (#1) 2025 Cologuard 06/18/2025 06/18/2022 Potassium Level 01/18/2026 01/18/2025, 04/2 11/2024, 01/11/2025, Additional history exists Sodium Level 01/18/2026 01/18/2025, 12/22, 01/11/2025, Additional history exists Creatinine Level (Kidney Function Test) 04/26/2026 04/26/2025, 01/18/2025, 01/14/2025, Additional history exists Fasting Glucose for Diabetes Screening 01/19/2028 01/18/2025, 01/12/2025, 01/11/2025, Additional history exists Colonoscopy 01/07/2030 01/07/2025 Colorectal Cancer Surveillance 01/07/2030 Fall Risk Screen (Annual) Completed 04/29/2025 HPV Vaccines Aged Out No longer eligi ble based on patient's age to complete this topic IPV Vaccines Aged Out No longer eligi ble based on patient's age to complete this topic Medical Devices Implanted Type Area Switchboard Operator Helper Device Identifier Shelf Expiration Date Model / Serial / Lot Implantable Port Implantable Port Right: Chest Procedures Procedure Name Priority Date/Time Associated Diagnosis Comments OUTSIDE CT BODY Routine 07/14/2025 1:45 PM CDT OUTSIDE NM PET Routine 06/30/2025 3:25 PM CDT IR NEPHROSTOMY TUBE CHECK BILATERAL RAD - Routine (most inpatients and all outpatients) 04/29/2025 11:22 AM CDT Hydronephrosis IR NEPHROSTOMY TUBE EXCHANGE BILATERAL RAD - Routine (most inpatients and all outpatients) 04/29/2025 11:22 AM CDT Hydronephrosis CREATININE WITH EGFR, S/P Routine 04/26/2025 12:16 PM CDT Malignant Neoplasm Of Cervix (HCC) DIPSTICK, U Routine 04/26/2025 11:40 AM CDT IA OSMOLALITY ASSAY URINE Routine 04/26/2025 11:40 AM CDT MICROSCOPIC MANUAL Routine 04/26/2025 11 :40 AM CDT PH, RANDOM, U Routine 04/26/2025 11:40 AM CDT URINALYSIS WITH MICROSCOPIC Routine 04/26/2025 11:40 AM CDT Malignant Neoplasm Of Cervix (HCC) BI BREAST DIAGNOSTIC BILATERAL Routine 03/15/1998 1:14 PM CDT from Last 3 Months or Most Recently Relevant to Health Maintenance Results * CT ABDOMEN PELVIS W CON-Outside CT Body (07/14/2025 1:45 PM CDT) Narrative [facility] - 07/15/2025 10:04 AM CDT This order has been created and auto-finalized to support the import of outside images. If available, original interpretation can be found on the Media Tab in Chart Review, in Document Viewer, as an image in InfinityView or as an Addendum. If a re-interpretation or overread is required please follow defined workflow. us Provider Not In System IMG CT PROCEDURES Final R esult Performing Organization Address City/[facility] Co de Phone Number [facility] NA * PET skull to mid thigh-Outside NM Pet (06/30/2025 3:25 PM CDT) 06/30/2025 3:[address] [facility] - 06/30/2025 6:24 PM CDT This order has been created [...] System IMG NM PROCEDURES Final R esult Performing Organization Address City/[facility] Co de Phone Number [facility] NA * IR Nephrostomy Tube Exchange Bilateral (04/29/2025 11:22 AM CDT) Anatomical Region Laterality Modality Genito Urinary, Vascular Int erventional RST LOS, Vascular Interventional ARZ LOS, Vascular Interventional FLA LOS Bilateral X-Ray Angiography Impressions 04/29/2025 1:10 PM CDT 1. Bilateral antegrade nephrostograms, as described in the report body. 2. 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 NR Narrative 04/29/2025 1:10 PM CDT EXAM: IR NEPHROSTOMY TUBE EXCHANGE BILATERAL, IR NEPHROSTOMY TUBE CHECK BILATERAL CLINICAL HISTORY: A 74-year-old female with locally invasive cervical cancer. She is status post chemoradiation. Presents for nephrostograms and nephrostomy tube exchange. TECHNIQUE: Patient was positioned prone on the fluoroscopy table. Both flanks were prepped and draped in the usual sterile fashion. Stone Layout Marker image of the abdomen demonstrates a single, left-sided nephrostomy tube and two right-sided nephrostomy tubes. Calcified uterine fibroid in the pelvis. We began with a left antegrade nephrostogram. 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 With supraphysiologic filling of the left collecting system, there is a thin, thread-like jet of contrast through the distal ureter into the urinary bladder. The mid and upper ureter are dilated and patulous. There is persistent pelvocaliectasis. We then proceeded with left nephrostomy tube exchange. 1% lidocaine was administered as local anesthetic. The tube was transected and exchanged over wire for a similar, 10-Omani x 25 cm MCL catheter. The locking loop was formed in the left renal pelvis. Completion injection and aspiration demonstrated good position and function of the new nephrostomy tube. It was then secured with a 2-0 Prolene suture. We then turned our attention to the right side. We began with antegrade nephrostogram of the right lower pole moiety. Right lower pole moiety antegrade nephrostogram through the indwelling tube similarly demonstrates high-grade stenosis of the distal ureter, with only a thin thread of contrast within the low pelvis entering the urinary bladder. This is again with supraphysiologic filling of the lower pole moiety. Additional 1% lidocaine was administered as local anesthetic. The lower pole moiety nephrostomy tube was then exchanged over a wire for another 10-Omani x 25 cm locking-loop catheter. The locking loop was formed in the lower pole moiety pelvis. Completion injection and aspiration demonstrated good position and function. Finally, antegrade nephrostogram was performed through the upper pole moiety nephrostomy tube. This demonstrates complete occlusion of the upper pole moiety distal ureter. No contrast can be seen transiting the distal upper pole moiety ureter into the urinary bladder. The upper pole moiety nephrostomy tube was then exchanged over a wire for a 10-Omani x 25 cm MCL locking-loop catheter. The locking loop was formed in the upper pole moiety pelvis. Both right-sided nephrostomy tubes were then secured with 2-0 Prolene sutures. All tubes attached to gravity bag drainage. Sterile dressings applied. No immediate complication. PREPROCEDURE: Patient seen, evaluated, history reviewed, and approved for sedation. Airway, heart, and lung exam satisfactory for sedation. Discussed risks, benefits, alternatives for procedure, and/or sedation. The roles and responsibilities of care team members, residents, and fellows were discussed. Patient understands information and questions answered. Informed consent obtained from the patient. Immediately prior to starting the procedure, in the presence of the assisting personnel, a procedural pause was conducted to verify correct patient identity and verification of procedure to be performed, and as applicable, correct side and site, correct patient position, availability of implants, special equipment or special requirements, and all image and specimen identification data. INTRAPROCEDURE: Moderate sedation was administered by sedation nurse under my supervision. The patient was continuously monitored with real-time oxygen saturation, heart rate, ECG rhythm strip and blood pressure throughout administration of the sedation and performance of the procedure. The total intraprocedural sedation time was: 26 minutes. Estimated blood loss: Minimal. Procedure Note Liang Foster M.D. - 04/29/2025 EXAM: IR NEPHROSTOMY TUBE EXCHANGE BILATERAL, IR NEPHROSTOMY TUBE CHECKBILATERAL CLINICAL HISTORY: A 74-year-old female with locally invasive cervicalcancer. She is status post chemoradiation. Presents for nephrostograms andnephrostomy tube exchange. TECHNIQUE: Patient was positioned prone on the fluoroscopy table. Bothflanks were prepped and draped in the usual sterile fashion. Stone Layout Marker imageof the abdomen demonstrates a single, left-sided nephrostomy tube and tworight-sided nephrostomy tubes. Calcified uterine fibroid in the pelvis. We began with a left antegrade nephrostogram. Left antegrade nephrostogramthrough the indwelling nephrostomy tube demonstrates high-grade stenosiswith near-complete occlusion of the distal right ureter in the pelvis.With supraphysiologic filling of the left collecting system, there is a thin, thread-like jet of contrastthrough the distal ureter into the urinary bladder. The mid and upperureter are dilated and patulous. There is persistent pelvocaliectasis. We then proceeded with left nephrostomy tube exchange. 1% lidocaine wasadministered as local anesthetic. The tube was transected and exchangedover wire for a similar, 10-Omani x 25 cm MCL catheter. The locking loopwas formed in the left renal pelvis. Completion injection and aspiration demonstrated good position andfunction of the new nephrostomy tube. It was then secured with a 2-0Prolene suture. We then turned our attention to the right side. We began with antegradenephrostogram of the right lower pole moiety. Right lower pole moietyantegrade nephrostogram through the indwelling tube similarly demonstrateshigh-grade stenosis of the distal ureter, with only a thin thread of contrast within the low pelvis enteringthe urinary bladder. This is again with supraphysiologic filling of thelower pole moiety. Additional 1% lidocaine was administered as localanesthetic. The lower pole moiety nephrostomy tube was then exchanged over a wire for another 10-Omani x 25cm locking-loop catheter. The locking loop was formed in the lower polemoiety pelvis. Completion injection and aspiration demonstrated goodposition and function. Finally, antegrade nephrostogram was performed through the upper polemoiety nephrostomy tube. This demonstrates complete occlusion of the upperpole moiety distal ureter. No contrast can be seen transiting the distalupper pole moiety ureter into the urinary bladder. The upper pole moiety nephrostomy tube was then exchangedover a wire for a 10-Omani x 25 cm MCL locking-loop catheter. The lockingloop was formed in the upper pole moiety pelvis. Both right-sidednephrostomy tubes were then secured with 2-0 Prolene sutures. All tubes attached to gravity bag drainage.Sterile dressings applied. No immediate complication. PREPROCEDURE: Patient seen, evaluated, history reviewed, and approved forsedation. Airway, heart, and lung exam satisfactory for sedation.Discussed risks, benefits, alternatives for procedure, and/or sedation.The roles and responsibilities of care team members, residents, and fellows were discussed. Patient understandsinformation and questions answered. Informed consent obtained from thepatient. Immediately prior to starting the procedure, in the presence ofthe assisting personnel, a procedural pause was conducted to verify correct patient identity and verificationof procedure to be performed, and as applicable, correct side and site,correct patient position, availability of implants, special equipment orspecial requirements, and all image and specimen identification data. INTRAPROCEDURE: Moderate sedation was administered by sedation nurseunder my supervision. The patient was continuously monitored withreal-time oxygen saturation, heart rate, ECG rhythm strip and bloodpressure throughout administration of the sedation and performance of the procedure. The total intraprocedural sedation timewas: 26 minutes. Estimated blood loss: Minimal. IMPRESSION: 1. Bilateral antegrade nephrostograms, as described in the report body. 2. 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 NR Jessie Borden APRN, C.N.P., D.N.P. IMG IR PROCEDURE S Final Result * IR Nephrostomy Tube Check Bilateral (04/29/2025 11:22 AM CDT) Anatomical Region Laterality Modality Genito Urinary, Vascular Int erventional RST LOS, Vascular Interventional ARZ LOS, Vascular Interventional FLA LOS Bilateral X-Ray Angiography Impressions 04/29/2025 1:10 PM CDT 1. Bilateral antegrade nephrostograms, as described in the report body. 2. 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 NR Narrative 04/29/2025 1:10 PM CDT EXAM: IR NEPHROSTOMY TUBE EXCHANGE BILATERAL, IR NEPHROSTOMY TUBE CHECK BILATERAL CLINICAL HISTORY: A 74-year-old female with locally invasive cervical cancer. She is status post chemoradiation. Presents for nephrostograms and nephrostomy tube exchange. TECHNIQUE: Patient was positioned prone on the fluoroscopy table. Both flanks were prepped and draped in the usual sterile fashion. Stone Layout Marker image of the abdomen demonstrates a single, left-sided nephrostomy tube and two right-sided nephrostomy tubes. Calcified uterine fibroid in the pelvis. We began with a left antegrade nephrostogram. 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 With supraphysiologic filling of the left collecting system, there is a thin, thread-like jet of contrast through the distal ureter into the urinary bladder. The mid and upper ureter are dilated and patulous. There is persistent pelvocaliectasis. We then proceeded with left nephrostomy tube exchange. 1% lidocaine was administered as local anesthetic. The tube was transected and exchanged over wire for a similar, 10-Omani x 25 cm MCL catheter. The locking loop was formed in the left renal pelvis. Completion injection and aspiration demonstrated good position and function of the new nephrostomy tube. It was then secured with a 2-0 Prolene suture. We then turned our attention to the right side. We began with antegrade nephrostogram of the right lower pole moiety. Right lower pole moiety antegrade nephrostogram through the indwelling tube similarly demonstrates high-grade stenosis of the distal ureter, with only a thin thread of contrast within the low pelvis entering the urinary bladder. This is again with supraphysiologic filling of the lower pole moiety. Additional 1% lidocaine was administered as local anesthetic. The lower pole moiety nephrostomy tube was then exchanged over a wire for another 10-Omani x 25 cm locking-loop catheter. The locking loop was formed in the lower pole moiety pelvis. Completion injection and aspiration demonstrated good position and function. Finally, antegrade nephrostogram was performed through the upper pole moiety nephrostomy tube. This demonstrates complete occlusion of the upper pole moiety distal ureter. No contrast can be seen transiting the distal upper pole moiety ureter into the urinary bladder. The upper pole moiety nephrostomy tube was then exchanged over a wire for a 10-Omani x 25 cm MCL locking-loop catheter. The locking loop was formed in the upper pole moiety pelvis. Both right-sided nephrostomy tubes were then secured with 2-0 Prolene sutures. All tubes attached to gravity bag drainage. Sterile dressings applied. No immediate complication. PREPROCEDURE: Patient seen, evaluated, history reviewed, and approved for sedation. Airway, heart, and lung exam satisfactory for sedation. Discussed risks, benefits, alternatives for procedure, and/or sedation. The roles and responsibilities of care team members, residents, and fellows were discussed. Patient understands information and questions answered. Informed consent obtained from the patient. Immediately prior to starting the procedure, in the presence of the assisting personnel, a procedural pause was conducted to verify correct patient identity and verification of procedure to be performed, and as applicable, correct side and site, correct patient position, availability of implants, special equipment or special requirements, and all image and specimen identification data. INTRAPROCEDURE: Moderate sedation was administered by sedation nurse under my supervision. The patient was continuously monitored with real-time oxygen saturation, heart rate, ECG rhythm strip and blood pressure throughout administration of the sedation and performance of the procedure. The total intraprocedural sedation time was: 26 minutes. Estimated blood loss: Minimal. Procedure Note Liang Foster M.D. - 04/29/2025 EXAM: IR NEPHROSTOMY TUBE EXCHANGE BILATERAL, IR NEPHROSTOMY TUBE CHECKBILATERAL CLINICAL HISTORY: A 74-year-old female with locally invasive cervicalcancer. She is status post chemoradiation. Presents for nephrostograms andnephrostomy tube exchange. TECHNIQUE: Patient was positioned prone on the fluoroscopy table. Bothflanks were prepped and draped in the usual sterile fashion. Stone Layout Marker imageof the abdomen demonstrates a single, left-sided nephrostomy tube and tworight-sided nephrostomy tubes. Calcified uterine fibroid in the pelvis. We began with a left antegrade nephrostogram. Left antegrade nephrostogramthrough the indwelling nephrostomy tube demonstrates high-grade stenosiswith near-complete occlusion of the distal right ureter in the pelvis.With supraphysiologic filling of the left collecting system, there is a thin, thread-like jet of contrastthrough the distal ureter into the urinary bladder. The mid and upperureter are dilated and patulous. There is persistent pelvocaliectasis. We then proceeded with left nephrostomy tube exchange. 1% lidocaine wasadministered as local anesthetic. The tube was transected and exchangedover wire for a similar, 10-Omani x 25 cm MCL catheter. The locking loopwas formed in the left renal pelvis. Completion injection and aspiration demonstrated good position andfunction of the new nephrostomy tube. It was then secured with a 2-0Prolene suture. We then turned our attention to the right side. We began with antegradenephrostogram of the right lower pole moiety. Right lower pole moietyantegrade nephrostogram through the indwelling tube similarly demonstrateshigh-grade stenosis of the distal ureter, with only a thin thread of contrast within the low pelvis enteringthe urinary bladder. This is again with supraphysiologic filling of thelower pole moiety. Additional 1% lidocaine was administered as localanesthetic. The lower pole moiety nephrostomy tube was then exchanged over a wire for another 10-Omani x 25cm locking-loop catheter. The locking loop was formed in the lower polemoiety pelvis. Completion injection and aspiration demonstrated goodposition and function. Finally, antegrade nephrostogram was performed through the upper polemoiety nephrostomy tube. This demonstrates complete occlusion of the upperpole moiety distal ureter. No contrast can be seen transiting the distalupper pole moiety ureter into the urinary bladder. The upper pole moiety nephrostomy tube was then exchangedover a wire for a 10-[place]mani x 25 cm MCL locking-loop catheter. The lockingloop was formed in the upper pole moiety pelvis. Both right-sidednephrostomy tubes were then secured with 2-0 Prolene sutures. All tubes attached to gravity bag drainage.Sterile dressings applied. No immediate complication. PREPROCEDURE: Patient seen, evaluated, history reviewed, and approved forsedation. Airway, heart, and lung exam satisfactory for sedation.Discussed risks, benefits, alternatives for procedure, and/or sedation.The roles and responsibilities of care team members, residents, and fellows were discussed. Patient understandsinformation and questions answered. Informed consent obtained from thepatient. Immediately prior to starting the procedure, in the presence ofthe assisting personnel, a procedural pause was conducted to verify correct patient identity and verificationof procedure to be performed, and as applicable, correct side and site,correct patient position, availability of implants, special equipment orspecial requirements, and all image and specimen identification data. INTRAPROCEDURE: Moderate sedation was administered by sedation nurseunder my supervision. The patient was continuously monitored withreal-time oxygen saturation, heart rate, ECG rhythm strip and bloodpressure throughout administration of the sedation and performance of the procedure. The total intraprocedural sedation timewas: 26 minutes. Estimated blood loss: Minimal. IMPRESSION: 1. Bilateral antegrade nephrostograms, as described in the report body. 2. 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 NR Maki Simpson APRNNFatemeh., D.N.P. IMG IR PROCEDURE S Final Result * (ABNORMAL) Creatinine with Estimated GFR (04/26/2025 12:16 PM CDT) [facility] Creatinine 1.21(H) 0.59 - 1.04 mg/dL 04/26/2025 1:19 PM CDT DTL Estimated GFR (eGFR) 47(L) >=60 mL/min/BSA 04/26/2025 1:19 PM CDT DTL Comment: Estimated GFR calculated using the 2020 CKD_EPI creatinine equation. Blood (Blood, Venous) 04/26/2025 12:16 PM CDT 04/26/2025 12:38 PM CDT Thelma Streeter M.D. LAB BLOOD ADD-ON Final Re sult Performing Organization Address City/[facility]/ZIP Co de Phone Number [facility] [address] [facility] [address] [place] [address] * Osmolality, Urine (04/26/2025 11:40 AM CDT) [facility] Osmolality, U 652 150 - 1150 mOsm/kg 04/26/2025 6:45 PM CDT DT Urine 04/26/2025 11:4 0 AM CDT 04/26/2025 12:59 PM CDT Thelma Streeter M.D. LAB URINE ORDERABLES Selina l Result Performing Organization Address City/[facility]/ZIP Co de Phone Number [facility] [address] [place] [address], [facility] [address] [place] [address] * (ABNORMAL) Dipstick, Urine (04/26/2025 11:40 AM [...] ORDERABLES Selina l Result Performing Organization Address City/[facility]/ZIP Co de Phone Number [facility] [address] [place] [address] * pH, Random, Urine (04/26/2025 11:40 AM CDT) pH, Random, U 6.2 4.5 - 8.0 04/26/2025 6:45 PM CDT DTL Urine 04/26/2025 11:4 0 AM CDT 04/26/2025 12:59 PM CDT Thelma Streeter M.D. LAB URINE ORDERABLES Selina l Result [facility] [address] [place], [place] [id number] [place] [address] [place] [address] * (ABNORMAL) Microscopic Manual (04/26/2025 11:40 AM [...] Thelma Streeter M.D. LAB URINE ORDERABLES Selina walter Result [facility] [address] [place] [address], [facility] DTL [address] [address] * (ABNORMAL) Urinalysis, with Microscopic: Urine, Nephrostomy [...] M.D. LAB URINE ORDERABLES Selina l Result [facility] [address] [place] [address], [place] DTL [facility] [address] [place] [address] * BI Breast Diagnostic Bilateral (03/15/1998 1:14 [...] she has had a previous mammogram in [place] several years previously, and if this could be obtained and the area of asymmetry shown to be stable over that interval, the six month follow-up would not be necessary. Nothing for malignancy in the right breast. P1,P6L,D1,M3.9L,U0L Electronically signed by: Joce Burton M.D. [id number] 15-Mar-1998 14:16 Procedure Note David Burton M.D. - 12/30/2017 15-Mar-1998 13:14:00 Exam: zMammo -DIAGNOSTIC (Bilateral) Indications: ORIGINAL REPORT - 15-Mar-1998 14:16:00 There is an area of asymmetric parenchymal density in the upper outerquadrant of the left breast in the clinically palpable region. Ultrasoundover this area shows only normal breast parenchyma without a focal lesion.This asymmetry was present on the outside mammogram of 11-5-97 and isunchanged. This is likely due to benign asymmetric breast parenchyma.However, since there is only six months of follow-up on this area ofasymmetry, a repeat mammogram of the left breast in six months isrecommended. Alternatively, the patient states that she has had a previousmammogram in [place] several years previously, and if this could beobtained and the area of asymmetry shown to be stable over that interval,the six month follow-up would not be necessary. Nothing for malignancy inthe right breast. P1,P6L,D1,M3.9L,U0L Electronically signed by: Joce Burton M.D. [id number] 15-Mar-1998 14:16 Gail Law M.D. 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 See document viewer. * Full Code (Latest Code Status on File) Date Activated Date Inactivated Comments 04/11/2025 12:44 PM 04/11/2025 7:01 PM Question Answer Comments Full Code: Not Discussed Due to: Patient not available
--- OUTSIDE RECORDS SUMMARY | 2025-07-15 14:16 | XMS_ITS | Clinical Summary ---
[facility] Address [address], [place] [address] Care Team Providers Care Slunk Skinner Name Role Phone Jorge Luis Cortez DO Primary Care Provider [phone] Source Comments You are receiving this document as you are listed as the primary care provider,follow-up provider, or the patient has been referred to you for consultation.This is in compliance with the Medicare and[facility] Medical Centercaid EHR Incentive Program,which states Providers who transition their patient to another setting of careor provider of care or refers their patient to another provider of care shouldprovide summary care record for each transition of care or referral. [place] Allergies No known active allergies Medications hydroCHLOROthia [...] Vaccine (1 of 2) 12/09/1999 Dexa 2014 RSV Vaccine (1 - 1-dose 75+ series) 2024 COVID-19 Vaccine ( season) 2025 07/02/2023, 07/26/2021, 01/02/2021, Additional history exists Influenza Vaccine (#1) 2025 HepA Vaccine Aged [...] topic Insurance MEDICARE MANAGED CARE BCBS [place] Care Teams Slunk Skinner Relationship Specialty Start Date End Date Jorge Luis Cortez DO [address] [place] [address] PCP - General Family Practice 12/22/19
--- OUTSIDE RECORDS SUMMARY | 2025-07-15 14:16 | XMS_ITS ---
Author Organization [facility] Address [address] [place] [address] Care Team Providers Care Flamer Sealer Name Role Phone Unavailable Primary Care Provider Unavailabl e Active Problems * This document contains information received from the source organization and may not represent a complete record from that organization. Problem Noted Date Diagnosed Date Atherosclerotic Heart Diseas e Of [place] Coronary Artery Without Angina Pectoris 03/30/2025 Malignant [...] Fraction Dose Fractions Total Dose Plans Planned [id number] 04/06/2025 - 04/06/2025 700 cGy 7 00 cGy [id number] 03/30/2025 - 03/30/2025 700 cGy 7 00 cGy Reference Points Delivered DPV HDR 03/30/2025 - 04/06/2025 2,100 cGy * Course 1xPelvis 02/21/2025 - 03/28/2025 Treatment Period Fraction Dose Fractions Total Dose Plans Planned [id number] 02/21/2025 - 03/28/2025 180 cGy 25 / 25 4 ,500 cGy Reference Points Delivered [id number] 02/21/2025 - 03/28/2025 4,500 cGy Lifetime Dose Tracking * Chemical Lifetime Dose Automatic Entry Manual Entr y Radiation 36.09 mGy 36.09 mGy 0 mGy Fluoro Time 6.62 minutes 6.62 minutes 0 minutes DAP (uGy-m2) 752.62 uGy-m2 752.62 uGy-m2 0 uGy-m2
--- OUTSIDE RECORDS SUMMARY | 2025-07-15 14:17 | XMS_ITS | Clinical Summary ---
Author Organization [facility] Address [address] [place] [address] Phone Care Team Providers Care Hospital Plan Administrator Name Role Phone VoteAxel walter MD Primary Care Provider [phone] Allergies Active Allergy Reactions Criticality Noted Date Comments Ciprofloxacin Hives,GI intolerance,Other (see comments) High 04/28/2025 Calf pain Iodinated Contrast Media Other (see comments) High 02/24/2025 Syncopal episode and generalized weakness loss of conciousness after previous diagnostic study loss of conciousness after previous diagnostic study Medications acetaminophen (TYLENOL) 325 MG tablet Take 650 mg by mouth every 30 minutes as needed 5 Active Aprepitant 130 MG/18ML emulsion Infuse 130 mg into a venous catheter 5 Active carvedilol (COREG) 25 MG tablet Take 25 mg by mouth in the morning and 25 mg in the evening. 5 Active cefdinir (OMNICEF) 300 MG capsule Take 300 mg by mouth 5 Active Cholecalciferol 50 MCG (2000 UT) capsule Take 2,000 Units by mouth in the morning. 2 Active coenzyme Q-10 100 MG capsule Take 100 mg by mouth in the morning. 2 Active Hydrocortisone Sod Suc, PF, 100 MG reconstituted solution Infuse 100 mg into a venous catheter 5 Active loperamide (IMODIUM) 2 MG capsule Take 2 mg by mouth if needed 5 Active methylPREDNISolone sodium succinate (SOLU-Medrol) 2000 MG injection Infuse 125 mg into a venous catheter Active OLANZapine (ZyPREXA) 2.5 MG tablet Take 2.5 mg by mouth once daily as needed Active Alfred-3 Fatty Acids (Fish Oil Maximum Strength) 1200 MG capsule delayed-release Take 1 capsule by mouth in the morning and 1 capsule in the evening. Active palonosetron (ALOXI) 0.25 MG/5ML injection Infuse 0.25 mg into a venous catheter Active Pembrolizumab 100 MG/4ML solution Infuse 200 mg into a venous catheter Active polyethylene glycol (GLYCOLAX) 17 GM/SCOOP powder Take 17 g by mouth once daily as needed Active prochlorperazine (COMPAZINE) 10 MG tablet Take 10 mg by mouth every 6 hours as needed Active traZODone (DESYREL) 50 MG tablet Take 50 mg by mouth in the morning. Active levoFLOXacin (LEVAQUIN) 500 MG tablet Take 500 mg by mouth 1 (one) time each day Active Active Problems Problem Noted Date Diagnosed Date History of acute kidney injury 06/23/2025 Urinary tract infection 06/23/2025 Acute urinary tract infection 06/16/2025 Atherosclerotic heart diseas e of [place] coronary artery without angina pectoris 03/30/2025 Malignant neoplasm of cervix uteri 02/08/2025 Overview (06/23/2025): - Squamous cell carcinoma, HPV positive Hydroureteronephrosis 01/14/2025 Anemia 01/06/2025 Overview (06/16/2025): Appears to be acute on chronic however I am not able to access [place] records to see further workup Perhaps anemia of chronic disease in setting of active cancer and therapies. No current or recent notable concern for acute bleed as cause Hemoglobin 8.8, baseline 10.8-9.2 Ongoing management with PCP Melanoma in situ of right upper limb 08/05/2018 Essential hypertension 03/11/2018 Encounters Date Type Department Care Team Description 06/23/2025 2:00 PM CDT Office Visit [facility] [address] [place] [phone] Hoang Galvez MD History of acute kidney injury (Primary Dx); Urinary tract infection, not otherwise specified; Hydroureteronephrosi s 05/18/2025 Documentation Only [facility] [address] [place] [phone] No, Pcp 05/18/2025 Documentation Only [facility] [address] [place] [phone] No, Pcp from Last 3 Months Family History Medical History Relation Comments Heart disease Father Relation Status Comments Father Social History Tobacco Use Types Packs/Day Years [...] on file Sexual Orientation Not on file Last Filed Vital Signs Vital Sign Reading [...] Mass Index 23.63 06/23/2025 1:39 PM CDT Plan of Treatment Health Maintenance Due Date Last Done Comments Breast Cancer Screening 1950 Pneumococcal Vaccine: 50+ Ye ars (1 of 2 - PCV) 1968 Colorectal Cancer Screening: Annual FOBT 1998 Colorectal Cancer Screening: Colonoscopy 1998 Colorectal Cancer Screening: Sigmoidoscopy 1998 Influenza Vaccine (#1) 2025 Hepatitis B Vaccine Aged Out No longe r eligible based on patient's age to complete this topic Insurance [facility] Medicare Care Teams Hospital Plan Administrator Relationship Specialty Start Date End Date VotelAxel MD [address] [place] [address] PCP - General Family Medicine 05/18/25
--- OUTSIDE RECORDS SUMMARY | 2025-07-15 14:17 | XMS_ITS | CCD ---
Author Name Interface, [id number] lity Address [address] [facility] [address] [address] Organization [facility] Address [address] [address] Care Team Providers Care Machine Wood Sander Name Role Phone Chica PALMA, Sarah Gallegos Unavailable Un available Allergies and Adverse Reactions Medication/Group Name Reaction Severity Date Cipro 05/10/2025 Care Plan Date Type Value 05/10/2025 APPOINTMENT [...] SVC N EW PT 30 MIN 01/21/2025 LAB_ORDER PET/CT scan, sku ll base/mid thigh 02/02/2025 LAB_ORDER Magnesium Panel 02/02/2025 LAB_ORDER CMP 02/02/2025 LAB_ORDER CBC w/ auto diff 02/02/2025 LAB_ORDER TSH panel 02/02/2025 LAB_ORDER iSTAT creatinine panel Reason for Visit TELEHEALTH PALLIATIVE CONSULT 80 MIN Encounters Date Name 05/10/2025 Pain due to neoplast ic disease (finding) Diagnostic Results Date Type Test Units Lower Limit Upper Limit Result Flag Comments Status Ordered By Specimen Source [place] [facility] [place] attache gomes Medications Date Name Route Dose Frequency Instructions Start Date End Date Status Fill Status Indication 02/02 methylp redniso lone 2000 MG Injecti on intrave nously 125.0 mg Re-initiate treatment only upon physician approval. 2024 active Cervical cancer 02/02 4 ML pembrol izumab 25 MG/ML Injecti on intrave nously 200.0 mg once Dilute with NS or D5W to a final concentration of 1-10 mg/mL. Infuse with low protein binding filter (0.2 - 5 micron). Do not mix with other drugs. Do not shake. 2024 active Cervical cancer 02/02 diphenh ydramin e hydroch loride 0.5 MG/ML Injecta ble Solutio n intrave nously 50.0 mg Re-initiate treatment only upon physician approval. 2024 active Cervical cancer 02/02 famotid ine 10 MG/ML Injecta ble Solutio n intrave nously 20.0 mg Re-initiate treatment only upon physician approval. 2024 active Cervical cancer 02/02 1 ML epineph rine 1 MG/ML Injecti on intramu scularl y 0.3 mg once Re-initiate treatment only upon physician approval. 2024 active Cervical cancer 02/02 hydroco rtisone 100 MG Injecti on intrave nously 100.0 mg Re-initiate treatment only upon physician approval. 2024 active Cervical cancer 02/02 famotid ine 10 MG/ML Injecta ble Solutio n intrave nously 20.0 mg Re-initiate treatment only upon physician approval. 2024 active Cervical cancer 02/02 hydroco rtisone 100 MG Injecti on intrave nously 100.0 mg Re-initiate treatment only upon physician approval. 2024 active Cervical cancer 02/02 diphenh ydramin e hydroch loride 0.5 MG/ML Injecta ble Solutio n intrave nously 50.0 mg Re-initiate treatment only upon physician approval. 2024 active Cervical cancer 02/02 1 ML epineph rine 1 MG/ML Injecti on intramu scularl y 0.3 mg once Re-initiate treatment only upon physician approval. 2024 active Cervical cancer 02/02 4 ML pembrol izumab 25 MG/ML Injecti on intrave nously 200.0 mg once Dilute with NS or D5W to a final concentration of 1-10 mg/mL. Infuse with low protein binding filter (0.2 - 5 micron). Do not mix with other drugs. Do not shake. 2024 active Cervical cancer 02/02 methylp redniso lone 2000 MG Injecti on intrave nously 125.0 mg Re-initiate treatment only upon physician approval. 2024 active Cervical cancer 02/02 4 ML pembrol izumab 25 MG/ML Injecti on intrave nously 200.0 mg once Dilute with NS or D5W to a final concentration of 1-10 mg/mL. Infuse with low protein binding filter (0.2 - 5 micron). Do not mix with other drugs. Do not shake. 2024 active Cervical cancer 02/02 methylp redniso lone 2000 MG Injecti on intrave nously 125.0 mg Re-initiate treatment only upon physician approval. 2024 active Cervical cancer 02/02 1 ML epineph rine 1 MG/ML Injecti on intramu scularl y 0.3 mg once Re-initiate treatment only upon physician approval. 2024 active Cervical cancer 02/02 famotid ine 10 MG/ML Injecta ble Solutio n intrave nously 20.0 mg Re-initiate treatment only upon physician approval. 2024 active Cervical cancer 02/02 hydroco rtisone 100 MG Injecti on intrave nously 100.0 mg Re-initiate treatment only upon physician approval. 2024 active Cervical cancer 02/02 diphenh ydramin e hydroch loride 0.5 MG/ML Injecta ble Solutio n intrave nously 50.0 mg Re-initiate treatment only upon physician approval. 2024 active Cervical cancer 02/02 18 ML aprepit ant 7.2 MG/ML Injecti on intrave nously 130.0 mg once Administer 30 minutes prior to chemotherapy. Do NOT dilute. Flush with NS before and after administration . 2024 active Cervical cancer 02/02 Sodium Chlorid e IV 0.9 % intrave nously 1000. 0 mL once Pre-hydration prior to Cisplatin administration . 2024 active Cervical cancer 02/02 methylp redniso lone 2000 MG Injecti on intrave nously 125.0 mg Re-initiate treatment only upon physician approval. 2024 active Cervical cancer 02/02 cisplat in 1 MG/ML Injecta ble Solutio n intrave nously 71.0 mg once Administer for 5-6 total doses. The 6th dose is optional and may be administered per local practice. Cisplatin is a vesicant.If diluted to a final concentration of less than 0.5 mg/mL, cisplatin is a vascular irritant. 2024 active Cervical cancer 02/02 diphenh ydramin e hydroch loride 0.5 MG/ML Injecta ble Solutio n intrave nously 50.0 mg Re-initiate treatment only upon physician approval. 2024 active Cervical cancer 02/02 dexamet hasone phospha te 4 MG/ML Injecta ble Solutio n intrave nously 10.0 mg once 2024 active Cervical cancer 02/02 famotid ine 10 MG/ML Injecta ble Solutio n intrave nously 20.0 mg Re-initiate treatment only upon physician approval. 2024 active Cervical cancer 02/02 hydroco rtisone 100 MG Injecti on intrave nously 100.0 mg Re-initiate treatment only upon physician approval. 2024 active Cervical cancer 02/02 Palonos etron IV intrave nously 0.25 mg once 2024 active Cervical cancer 02/02 1 ML epineph rine 1 MG/ML Injecti on intramu scularl y 0.3 mg once Re-initiate treatment only upon physician approval. 2024 active Cervical cancer 02/02 18 ML aprepit ant 7.2 MG/ML Injecti on intrave nously 130.0 mg once Administer 30 minutes prior to chemotherapy. Do NOT dilute. Flush with NS before and after administration . 2024 active Cervical cancer 02/02 Palonos etron IV intrave nously 0.25 mg once 2024 active Cervical cancer 02/02 famotid ine 10 MG/ML Injecta ble Solutio n intrave nously 20.0 mg Re-initiate treatment only upon physician approval. 2024 active Cervical cancer 02/02 hydroco rtisone 100 MG Injecti on intrave nously 100.0 mg Re-initiate treatment only upon physician approval. 2024 active Cervical cancer 02/02 diphenh ydramin e hydroch loride 0.5 MG/ML Injecta ble Solutio n intrave nously 50.0 mg Re-initiate treatment only upon physician approval. 2024 active Cervical cancer 02/02 cisplat in 1 MG/ML Injecta ble Solutio n intrave nously 71.0 mg once Administer for 5-6 total doses. The 6th dose is optional and may be administered per local practice. Cisplatin is a vesicant.If diluted to a final concentration of less than 0.5 mg/mL, cisplatin is a vascular irritant. 2024 active Cervical cancer 02/02 methylp redniso lone 2000 MG Injecti on intrave nously 125.0 mg Re-initiate treatment only upon physician approval. 2024 active Cervical cancer 02/02 Sodium Chlorid e IV 0.9 % intrave nously 1000. 0 mL once Pre-hydration prior to Cisplatin administration . 2024 active Cervical cancer 02/02 1 ML epineph rine 1 MG/ML Injecti on intramu scularl y 0.3 mg once Re-initiate treatment only upon physician approval. 2024 active Cervical cancer 02/02 dexamet hasone phospha te 4 MG/ML Injecta ble Solutio n intrave nously 10.0 mg once 2024 active Cervical cancer 02/02 1 ML epineph rine 1 MG/ML Injecti on intramu scularl y 0.3 mg once Re-initiate treatment only upon physician approval. 2024 active Cervical cancer 02/02 cisplat in 1 MG/ML Injecta ble Solutio n intrave nously 71.0 mg once Administer for 5-6 total doses. The 6th dose is optional and may be administered per local practice. Cisplatin is a vesicant.If diluted to a final concentration of less than 0.5 mg/mL, cisplatin is a vascular irritant. 2024 active Cervical cancer 02/02 4 ML pembrol izumab 25 MG/ML Injecti on intrave nously 200.0 mg once Dilute with NS or D5W to a final concentration of 1-10 mg/mL. Infuse with low protein binding filter (0.2 - 5 micron). Do not mix with other drugs. Do not shake. 2024 active Cervical cancer 02/02 methylp redniso lone 2000 MG Injecti on intrave nously 125.0 mg Re-initiate treatment only upon physician approval. 2024 active Cervical cancer 02/02 famotid ine 10 MG/ML Injecta ble Solutio n intrave nously 20.0 mg Re-initiate treatment only upon physician approval. 2024 active Cervical cancer 02/02 Sodium Chlorid e IV 0.9 % intrave nously 1000. 0 mL once Pre-hydration prior to Cisplatin administration . 2024 active Cervical cancer 02/02 dexamet hasone phospha te 4 MG/ML Injecta ble Solutio n intrave nously 10.0 mg once 2024 active Cervical cancer 02/02 18 ML aprepit ant 7.2 MG/ML Injecti on intrave nously 130.0 mg once Administer 30 minutes prior to chemotherapy. Do NOT dilute. Flush with NS before and after administration . 2024 active Cervical cancer 02/02 diphenh ydramin e hydroch loride 0.5 MG/ML Injecta ble Solutio n intrave nously 50.0 mg Re-initiate treatment only upon physician approval. 2024 active Cervical cancer 02/02 hydroco rtisone 100 MG Injecti on intrave nously 100.0 mg Re-initiate treatment only upon physician approval. 2024 active Cervical cancer 02/02 Palonos etron IV intrave nously 0.25 mg once 2024 active Cervical cancer 02/02 Sodium Chlorid e IV 0.9 % intrave nously 1000. 0 mL once Pre-hydration prior to Cisplatin administration . 2024 active Cervical cancer 02/02 hydroco rtisone 100 MG Injecti on intrave nously 100.0 mg Re-initiate treatment only upon physician approval. 2024 active Cervical cancer 02/02 cisplat in 1 MG/ML Injecta ble Solutio n intrave nously 71.0 mg once Administer for 5-6 total doses. The 6th dose is optional and may be administered per local practice. Cisplatin is a vesicant.If diluted to a final concentration of less than 0.5 mg/mL, cisplatin is a vascular irritant. 2024 active Cervical cancer 02/02 dexamet hasone phospha te 4 MG/ML Injecta ble Solutio n intrave nously 10.0 mg once 2024 active Cervical cancer 02/02 Palonos etron IV intrave nously 0.25 mg once 2024 active Cervical cancer 02/02 methylp redniso lone 2000 MG Injecti on intrave nously 125.0 mg Re-initiate treatment only upon physician approval. 2024 active Cervical cancer 02/02 famotid ine 10 MG/ML Injecta ble Solutio n intrave nously 20.0 mg Re-initiate treatment only upon physician approval. 2024 active Cervical cancer 02/02 1 ML epineph rine 1 MG/ML Injecti on intramu scularl y 0.3 mg once Re-initiate treatment only upon physician approval. 2024 active Cervical cancer 02/02 diphenh ydramin e hydroch loride 0.5 MG/ML Injecta ble Solutio n intrave nously 50.0 mg Re-initiate treatment only upon physician approval. 2024 active Cervical cancer 02/02 18 ML aprepit ant 7.2 MG/ML Injecti on intrave nously 130.0 mg once Administer 30 minutes prior to chemotherapy. Do NOT dilute. Flush with NS before and after administration . 2024 active Cervical cancer 02/02 methylp redniso lone 2000 MG Injecti on intrave nously 125.0 mg Re-initiate treatment only upon physician approval. 2024 active Cervical cancer 02/02 dexamet hasone phospha te 4 MG/ML Injecta ble Solutio n intrave nously 10.0 mg once 2024 active Cervical cancer 02/02 Palonos etron IV intrave nously 0.25 mg once 2024 active Cervical cancer 02/02 18 ML aprepit ant 7.2 MG/ML Injecti on intrave nously 130.0 mg once Administer 30 minutes prior to chemotherapy. Do NOT dilute. Flush with NS before and after administration . 2024 active Cervical cancer 02/02 hydroco rtisone 100 MG Injecti on intrave nously 100.0 mg Re-initiate treatment only upon physician approval. 2024 active Cervical cancer 02/02 cisplat in 1 MG/ML Injecta ble Solutio n intrave nously 71.0 mg once Administer for 5-6 total doses. The 6th dose is optional and may be administered per local practice. Cisplatin is a vesicant.If diluted to a final concentration of less than 0.5 mg/mL, cisplatin is a vascular irritant. 2024 active Cervical cancer 02/02 diphenh ydramin e hydroch loride 0.5 MG/ML Injecta ble Solutio n intrave nously 50.0 mg Re-initiate treatment only upon physician approval. 2024 active Cervical cancer 02/02 famotid ine 10 MG/ML Injecta ble Solutio n intrave nously 20.0 mg Re-initiate treatment only upon physician approval. 2024 active Cervical cancer 02/02 1 ML epineph rine 1 MG/ML Injecti on intramu scularl y 0.3 mg once Re-initiate treatment only upon physician approval. 2024 active Cervical cancer 02/02 Sodium Chlorid e IV 0.9 % intrave nously 1000. 0 mL once Pre-hydration prior to Cisplatin administration . 2024 active Cervical cancer 02/02 diphenh ydramin e hydroch loride 0.5 MG/ML Injecta ble Solutio n intrave nously 50.0 mg Re-initiate treatment only upon physician approval. 2024 active Cervical cancer 02/02 Palonos etron IV intrave nously 0.25 mg once 2024 active Cervical cancer 02/02 4 ML pembrol izumab 25 MG/ML Injecti on intrave nously 200.0 mg once Dilute with NS or D5W to a final concentration of 1-10 mg/mL. Infuse with low protein binding filter (0.2 - 5 micron). Do not mix with other drugs. Do not shake. 2024 active Cervical cancer 02/02 18 ML aprepit ant 7.2 MG/ML Injecti on intrave nously 130.0 mg once Administer 30 minutes prior to chemotherapy. Do NOT dilute. Flush with NS before and after administration . 2024 active Cervical cancer 02/02 1 ML epineph rine 1 MG/ML Injecti on intramu scularl y 0.3 mg once Re-initiate treatment only upon physician approval. 2024 active Cervical cancer 02/02 Sodium Chlorid e IV 0.9 % intrave nously 1000. 0 mL once Pre-hydration prior to Cisplatin administration . 2024 active Cervical cancer 02/02 cisplat in 1 MG/ML Injecta ble Solutio n intrave nously 71.0 mg once Administer for 5-6 total doses. The 6th dose is optional and may be administered per local practice. Cisplatin is a vesicant.If diluted to a final concentration of less than 0.5 mg/mL, cisplatin is a vascular irritant. 2024 active Cervical cancer 02/02 famotid ine 10 MG/ML Injecta ble Solutio n intrave nously 20.0 mg Re-initiate treatment only upon physician approval. 2024 active Cervical cancer 02/02 dexamet hasone phospha te 4 MG/ML Injecta ble Solutio n intrave nously 10.0 mg once 2024 active Cervical cancer 02/02 hydroco rtisone 100 MG Injecti on intrave nously 100.0 mg Re-initiate treatment only upon physician approval. 2024 active Cervical cancer 02/02 methylp redniso lone 2000 MG Injecti on intrave nously 125.0 mg Re-initiate treatment only upon physician approval. 2024 active Cervical cancer 02/02 olanzap ine 2.5 MG Oral Tablet orally 2.5 mg every day at bedtime 02/02 inactive Cervical cancer 02/02 prochlo rperazi ne 10 MG Oral Tablet orally 10.0 mg every 6 hours 02/02 inactive Cervical cancer Problems Diagnosis Status Date of Diagnosis Resolution Date Cervical cancer Active Cervical mass Active Seen by palliative care physician Active Pain due to neoplastic disease (finding) Active Procedures Date Category Name Instructions Status 01/14/2025 Physician Order RTC [facility] (can be [facility] if prefer) Ordered 01/21/2025 Physician Order PET/CT scan, sku ll base/mid thigh [place] Ordered 02/02/2025 Physician Order REGIMEN CLEARANC E [...] 02/02/2025 Physician Order Radiation therap y consult [facility] Ordered 02/02/2025 Physician Order RTC patient teaching RN Patient Teaching Visit Ordered 02/08/2025 Physician Order Consultation requested [facility] for chemo/radiation at [facility] and [facility]. Weekly Cisplatin and Q21 day [place] with Radiation at [facility] Ordered 02/15/2025 Physician Order Port placement Order ed 02/16/2025 Physician Order RTC DERRICK WORKER/PA and infusion to start with RT - [...] at baseline and as clinically indicated Ordered 03/09/2025 Physician Order Immunotherapy Monitoring For [...] indicated Ordered Social History Date Name Value 05/09/2025 Sex Female Sexual Orientation Choose not to disclose 05/28/2025 Gender Identity Identifies as fe male Vital Signs Date Type Value 01/18/2025 Weight 154.00 01/18/2025 Height 64.90 01/18/2025 BMI 25.71 01/18/2025 BSA 1.77 05/10/2025 Pain Scale 3.00 05/10/2025 Height 64.90 Notes Section * Palliative Care Initial Visit <html><head></head><body><div style=text-align:center>

<span class=clinicalNoteMacroWysiwyg id=[id number]" macroname=PracticeLetterhead spantype=macro title=#PracticeLetterhead><img src=data:image/png;base64,hKFABi0PUssTFNSWLBtCQdSWXFCAGYKaYSTYIXE7T8fXK NRAZTFFM0YPcj9l0WTOBMJgFJ6WBVXypnv7MRMIUBWOoQsOpkBISuXLQV8WGCJqQnfZIPeLFQXQJBui7 N3AmHK8OqgPQreozbG2Y hOwRsFNWYvcHaqHFdmEPGZIIETdHrPMNUqxZnyLyHMiYDLZ3RvgFy9NXbbzX+u8/Ghi3fsi7i42S95Gh vnzhuqwbXfINxDL1waPm CSRDHrZDvsMkqNcP9YiANV1yZ/rSwbDUUdGlWVuFPBuuZUIMJYzQFFOZUFGcnUSa3CIznJZl/gECxCGY ZvCA4tIq5CmjBk4Bv4sc GqNpFjzawDIiYRba98IHfwoPZGWy5jdWUWGmAsxnRNcSq2yH8jNzYdzQE2hwJUPsjr54xohngMA2vdKR Hh2c4QOz6edgYv42nPOS oXvJaKv5P6cRdkzNpMGWQz8IUvS6gjjaKt8sMkgj3lHHjSKXIzAxBvCiruKFBuKpaI3vB8lwh09lFWuB /DsDBsmp5VXx0izl7St2 6oQw1x/sABhrlu+/mpksk7826B/hMQQdQpkRbpCq2yTIgEulxqkJHJGSVED+AdQYHAQBQQQrV7+EU0e+ xYeNMoI97ZIaydaXv4Ln 03HWiN9Ujdwt9+qXLMI4z+xRx8a//2nBqwSOfUSNrNHi8+z5E1OUneTg40j+9VnATbGbvDQrX91xFdgm Tx++/btVL9+felnmOsJF iDMdUdGRgYFBQVJ/nKYlMbJviyBCicDLaJOTHbMJ5S2Ma0yq7/KB2MTxi3pMl+SyxdnsZKQ4zqNMPvbD VWeV2n9pakaowPrCT1x3 Cjqy70cD9SNyd1S961fAaHI9LWNRKcxWLOelrQsRz9mjQy0jR25BSDkCkgOYB+5xo90fEeRqKnhvC1zv IEw/wpWrFhB8+fPp/Xr1 2HmMjULlIlCJe50eWKkshngeNAZ41BgILvF57Q/vhnCwar0FjUYHKZEaHXYzG1uDnCaKBJHaDEdOa1yu 72seQisBtGzq2PsDYA57 SOxiBRUG9xwfx1OZiAFamHoflTHviKTXjSu2Jo53ik1KTwRDmlYqAktbTvUN7k7/HNnCUsy2gTwJv+6s 03jyqhuEpOlmUOsBgJ4M pRpGxWfZvOf27xBjVBZLhEYq5qxzW6EdvL8Wh2sk4p+vdf6VCFYKRAJxOJETVvrRgDg59//vhQmDFNQ4 I4fsiCAyHYjYFXHZ3DoR 5fYoO859wuhnnIqGTv54uprJvT2B89rPk7k1f4yxi+zqEzGV6gihozZb847Yg/MqjhqBn5ihCYIsVvX1 xJZTI7HCXQ9BWm3Pti9Z pIioqLpu4+Z3R60PsH5PC+gD2e+ZwDQq0qTJQ2MPi4U77M5iA2oD7N4b++W1+yLCUoFDo41GL5rsIAqd yqMbLWAIZEKofBltty6f TaSYsn8xiT4xKeLAWCL4n6+r1Fc34pPD8HjYuzNc6135z/IMNadTzO+KRAZzgJc409MSfNLv54XYcGPT tnSt2/u4ajzVi7QfKMNr 6NwlBiaYGoqxtNfqa89eq/HJThCuBVHjqBMruYdlY0iLvM5PUu77INi1zWbN0MUPihUPeFJGmajh30/M NAY/lF9X9zKCCoREozZD +cafn7+gy3BBlXTfuHNUUH2PhLaqTR1w02tf9FpAgTIQ552O9CerBZFRGYupEF7pWKRZXyn3HhMrfLUj 0RbMM3YPg04OtvIojDMT 6W/ow28sNdtZva83OguoNBM4nsMo5i/oFdn6YCXCnpOg6KM9rlWU0kBge9owMpcKTXEr0FHFwBnfMmr1 nmiienI8Mx4iuJnlo99K t6iIWAOWVn5Z/h5dW01bHIVXZaOaDuyLpoRZ0u++pio1flvxySnV0UmkCrLKHdGCDMcFUOumXYYxiERo QLWTZgIiMUPf//9dxXrG gy2//gda9L1L5EQzejnJIb3mxmK5oJAqJ9zuqtHR6z3cbJVXAa+/68IyCwPKq3fcLwKQHsCepR07JALT uD7jBprt71+xR7LK7GLu iOzDQnEXy4QIX2gpeaferw5tTmRtkYAwJrrxpmsmy8CIX+Ex+QXiX7/g+jP5LFpNWmIjOzO4URRY1gyH hwkYloDiivrHj7z2hfyl Sv19YAFg1/K2TEpG4pKGBpAvrGvq+eS2QJN7PgBcgST7NuKxHDl51eWeIebV312vTd8v21hQsVsENJug A3tOpNHv3WToMWD5WuuU eUqVdQexwwdOlRuddeZO/ULepMxsy2ImbS7YvEuXGPUx3+uEOWVhenPiHnK2DcsmiZIwgkhEgFNfSJ5/ PhxGd+mAaIxf8pjCpPo1 jxzoa1TpKrUsIMTMrgjgb+VP67nC0FAPGSyExidhPeidyjRzH0SJOhiYuEOnvzcRYRnVGLpQRmghof2w NG/h78DdjsLVg3jeWe+c sP7iBqKBdUuTOV764oTHtBWHDx8IMbJgbMWp+1gpgcLpoKQcz2ZoYdmlU/910RU7wu1kFmDUPcfBzCYS AJ9HUrTCO0RBMtXZh3MW gMHKjg5g+exE3Hv382jS7473kbRS0F9e+5r5u8Gj7mvTfxc/qxWgRlIYUzE5Js+5FqVBb03lpQWZejB3 wERGTpyqWkZlJCYRCdPn rx1Dthha2pJSZMj5iGq4uYpbBH43chhH5r0sjzCAIRffJJT5i9UXby4t55FCJufUF0XHqCVsda469zCe bSXE0FbQ0rF4JXayjVnC WriwAA/ChCl+MDhwzTsiScoICCAbqhRnSa8+ALv80dArxqvg3/BjDYBFEZozR8dhUyw2NnSDtK3pTraJ 9MsJSnYl7FLTzcHWfAjv OGwtTr/oAAKDQ+d4cTQWQjWoId0C5CbOtaVnESNW6ipbHoa/bFbzRwF8h6+lLRqEky71zgj51f2mDdem UIuY23pk2jAvVoSyRlUB Dj+kkwqSkJbTavNMzZBORuHYINvDHIONVMh5Jy2c1uzdJxq7cqq3vNa8w9EILaDeUgO6gu5V8DEWUE4S rs1w8H0jChanqs42jLBs rORObVzY1pAedvWMoHomft3tqV4AXyq5NjF03loFR2/c5fRf+IKKjrzDXkxfbnzF7hrCayJWAH3kWw8t mGY/L2ZGIGLrBl9KEean qJlH+eokDvffoex/dvhTCgPvRTbW1WadaJaeIhGstJfw4n2T0IGRQxBRX3CqrzLMBjtGrNuB9+BzLtpo +dtCSLMgNrrPmzh2s07v bo36584ad1pmf+MkqVKSz/EDKF4JhHKlODw9JZFznkF3lzbUtMFJE3D0LV/ayejEfToVECkj1WJl1hQY IH2yBTM67sWY6zyhgX9c nMLbVy/gZIyDWm+lsuHDZWUzUIU77IsdHO1ghQoRdBbyWNuiwD0+HDSYgTJy8DhaOVGa/wpUByTkJZJE 7yWjiuSN6oMIIrHtLx99 +9XIYbJ//BBTFJofDjGjIXLrnS3sDgOPfhCHZj3unCivP/WkHSvsGwUp4yYBpd1LKT3fB7mR1nAjQJh5 ROZj7AWX+VXINo5iHTn3 lLqN8UHl/5583y8y1p3olNNiC7HXQmFA5GT+w+Ew8R4VKLC6ZYht84YF43zZSBdBHB9+w+M4AKULFhjZ NsRDMMQfCbEwxjw9dyEG HOcMafEwhOdJSIfgIs6i38tXOn8OZuhvKDYiqVRZTajehpFeM0hBoZmIUUla8x1OV5T4HkC3tZ2wEg9j XLa0WdhkDo+nurUrUcLl gXGNgmn2Q/snrQ7Ol3H3ycnzqs9VOnZHyCpQTYc0UCBJ8sLaW/BRDxqUcWUjtMI4Rk4q6fsb9Rw8D8xt kFKWzJDW3cG4+QWVkxYX 1p3LTsPeiz/NoZM10zsdjdLn3jC+DnUU7KrAVIJWkI/BZi87XGunWYGbxT4By47EV5RWM657daJS4sZ4 AUmNH8wwEqrd18MajYw+ bXQ2MZPYTcD9zILT0tw/AwKI0CCfqWqAe+eTQ89+YS0M05qMIbvxGh73Bjkeo97SMQPZqBYwd3PHSeZi uGNGvgTjBHlOorRUf3Eq 4WGhdGvew/Ffp3jUR241IUkDYrjEDcivlADwXxtMYe9QNYgRd6Op5iNJtrb+2an7xnL4O33G6RdRvUhL 8TphTqjebNF2IgK3+bNk 36GyY/kRApOL6FQvkvltGD20u/6ZbrvqdEUd+4vGDbCnKnlWXnIzlDw1WOowTu/lk4nZX/tOTY6iQ1lR 6l4VoCV0o6mh6YLGqSiH YmdD7WhXHUmLMWwdWzuZg4sVBre5QjwVvWRQKjD83XNmhBxpx09e076j0p/xecV4OTMLuW4JrKWY6opK zwSp9pWcThNolY4xQIcP 9z0BUpMFb+iv7VRs/FNNHXtFrp0+hz6fGT/HCEmXHeghISkW04JVbj9ZCQDIEMCba7+gQEUEhIgKuYwU WGuCSonXB9DLvEqPxhRO v43lnR/df5s0TMYJBlJrn9Y1IM9/QIHPf4NwEsFIXI4FYArB30Q5LoseAjRSuQw+z8p/hMZuxB6KS6/K xAtLE0w61fL/h2YhbBbt uRHuAuLyXcMHDhQ+LaJt2pSKt94WYuBGSDlTYikjdrpq1Cuw+X+ceNlajlYiIMVWJQ4zJe95rlCYudQN 5pp16UlVvCm0/kPg+U4d 6N0qMsO+LhLdM/ei9XrrAfAm7IUVb9/1DC5r+2HngaeFJYQM3fxli4prPCN7jbV2M+bitJ19GIDbiERS JOvgEns/Bxtoa8Cf9xaw jyQUuFujT7FZzwdOTpOiGjEMi9fQbl/XEJHzsRRTOFgeuPtObR+lJu6M8zbwTutyLWrTxmXFsjlqqDT7 XISgnOeXaIxitPB9180U y7OyQwqBlJy4V6E0PKRfpkoJWjgxZniuQf6DJcrQ0uneFGt2CtObgERsxwWCPCQK6ci6XIRvkPTJMKgO MXikbCYzbw1OGYaOYQvP DqnTHOe1pCwZMjYpGkABxOUznlIZbkubayrUdN0Xc9iRAjxBy0XQa+T0dPmQCO2J460L1PB8kmicf8Wn DV9dCn5KD/mlBy3SPJpQ EfxWFmLtBLkfKG4dEaMifrPQ7hmDsMAyIX/48Ae8idcTIk9fmzPx3QLyWOwmrUgejeVzdNykhTogRX5h Gne8t4+BZK1XY10zPX2k 3MmNnYKPaUjIyorGuSpXmo1Acw6/i0M2q9PQV2fSDbKUxaY4PciSQY+QuGDdqwrTQ7y5oq/D8pGfrvPI TltmqZESmdPvgw51eahT x/M6F1NdZE3BoxwDKPCtIbvYXG5EKrBaEvJptvxoG4RLbCLHufhyOo57HC+duveoWrOSHLMJ2OZKt9CO Rj/vTSApCpRMOEGsCb54 igzJ8eDggaFFc9mlDjQ7YJfTJWaaqbyXZGCUCrXm3UNS3d5jBb6WgHsPNRWaFS2h+D+arTwCgYP5DeWl VnSxK8ySLjSCuOS9rAUh lS/hYeV5P5+hjnEXb9ekNOb0X70FWOgC8OGwGi5b+vn70/e7r1VrCgaqRBRcncUlfW9iTvPPJsH77RPy a9xhVlQCzBgX5V/rATi4 e1LDzSoO55Yp5Cc39wKdtntkjpJ/E157Orp/AfxT45a12AprWgK8M2MHxexFyDHUeBOPnWDXSiGT3a9d nRIUBhMndGScIVxWE8Nq zZdpp8/MXCbTl4JZRBWQh/P0B5HuXD4vsIp9DBg3chOghKTAFLfy9qtj5R8GjcbQ9N/5g/yP1Di9Ehoq 0az9l4oYS9aGzGx5GByb Vp8DXRTn22Umop3YI/CFhwiirvQMtwLYS4p1W4lWPZBqV02mBBoPA6lwz0ElFnY6yCUpvRc8RTF/AELE CZfMWjQIOUj+u7FOqAZX jXkEPbl6QA4Ferwkif4EY2i6WQCGIaKha2TvjRbMq1tGsvpVZvxCCgr2ba1rI8z+Dc6/SDpkrn5kIaZI 703k+deD9kl3IWZQz9pl +520BjoLDmA8KLiQotCbULIXJhiyeexMEN5arXV1RW+qmpuY7MuO9agAzXaWX++PB0/uupAeDiX58oGL +KPD7XJoZf2CBQyzGBSH sQ2tolJPHmW9KOJZ2GOYpx0CTIncvsXkaZtO6SuLR5oURqrd1YaecT+LkTMQiQYJCWjSI4SitveqyeRW tKOv+LE4HNzNDjWcNXnM juJNmreh8CSqRquVwKBQtMlLHIHQMIm1ZiHLKL5YlBrDRpYdx/TCOkF6qQFbMtlOHvfHeZadasSqjOYM eQm14PFQkXC5PB0exNHW Jp7xk+u0MBKDb5AZoD9aYMv/krGoxWfEH+JUCWjWwjjJ3+vgwYkrkEKNpMhi7+kLCFEUoVASElOobtGm 5Bxg78zlalYitTRoNBK/ hxCiJZ6l8+UthXaT44aterwD8TZxOl4kNbHhbWv5+Esdras+zcmpGmZuaJObAEeaC4D8KvYoc+xQoqJARJ7 fl0MghUyvHyjhVaNU+6h do/CcAfuvgoffe3ZPtGxhYnhl50NZ8zTgD2h8JUOti4GtiKoTIJBoBttXVCvF6P+8g/ORp1axvEllXmT geUxde7RZ6Fsy/tp29eG y+EYKj5LOMg4ZN8HAZ/lBMInYzw2pOMMrOf/4HRIFw4H+tYoJWIVKxhnYfYZwmwUfhmbPQG6Zm+MrJQ+ JuoeoV64yq9v6Djgomaa yuCZ9OqksIiNN+v1LwNObesbwB26CLV6xg+/bA9oP4xsR93rKUMl9dDI2eK1zdIEVClLVMiMD0n36tyi uLM9n4OBVCd4VmlQaQqE gVi17a6w2DpPhOlCSRWnJd+2Gq9rYrPEEymfl5nDgKrLBSQJMB/zHtL7r+ubhMPzycgm6gKRuXpn55ee 6sjfYC8Kh0mBCsTGV6L5 S7+JuWR6wq1a05ueAC7pwoo5GkpCUIVywx6nuOxkXX97MbOgZBUUdt5zcvM+AsDIvVlxZwjNUySZ5qJS CLVnFx1z4XIW/+U+xkmP 9LTjRcKQG5+DIq8tdXf7nZJCAfRqgy60yeuSWyPt2NUntlRlSwdxMCagpV1NTFUVhrHqsiARW7oed+SAMI nGtiBWCJsvhy1tzKsAZ6 9B924mON4qtNoJIgoBvxbSB9NkcAAFPvGOWIO1QdRpKcQpE23DR632AK8tSjcRvU2fQvEr4qkELm+RPW IAw+GQnYEl995/T5Mnmg XDgh9lGVzg/bxBlBgVRpn+PdMoIPaNEhKMZVrw1atb72cofOZmt2gg0vgItzsQKcNIGJMrysWwujlqDR SdszpD91ZGAHPByXOklM fTVsWcLDqBP8IVxo0MJmDZSrInVO5FEYTTQ9FtsW0ZsqmDf1Hj5l8CdReQmXGXMtYu+xRFYGDmKqX49h xFuLmW538AK8jfST8Aiv XsTYTXNeYELtWmsXwlT8xFGwNXJwlgsBlld7czY38gPXKCaR7Fg5LJ5r7S8zqVjB8yoNonlJ/mMholzg OIKCsa7Hk4SWZFKTbQsl uLRUTu9zEFl3f7sPwbeChS9fEix41PeHIo9ruy1SCk+BWociijr0GuMNp+DIqqFSXhYGCWnpVOoqIBT5 Uq3qRl44PrO/zOCStZrQ wpdgMAPpxGVqojJ4QHztMuclq5UrQ0+6AoP26vWgoYSf2JaPxkT6Ff4Bn4sYPEdgH4mM1ZQKsli2WCIv pzIgR8o8FuLxkRVwkOIo PkQWHFOxL3ybH1+jvU9nyiNwb47WxWUC28zfx7jbzzYGTrcVkodbObLgtBMgofZJ8qjliGgyRO4mvM8F 9R9uiwJI2zhMx//mlb07 mvhWkKfvM6ClLjpo9QV9tCRDs1p9E8sBmadqsOYgU1/wKetiQ4goDK7OSPrQDN7C3IK/g1YC443mNWYL vFi2OU7r3sI88JvSCEH8 TwGPstYzeCfAHLzG9HBI6uj1xaBoS9WQsuech6d0ErxLlVxCPowkv36CCTVw0HvjA2ZRYb1z2UTsNde6 Ny5k+rUqUMVb+tGN09+T 1hsBTGG0e+ht9bbwA/KhU0lio5LuduSZJDtPHQwPscnbf/MpTwx1azkOj8DJwtjxazYIkYj3YWr/OnLZ GDUFkD1jk/Hv2tQYpZj5 Eof8XoxkJ0xD18TGip9nQ8/0W1emIVCoOzBdBHqB+sI0aAt8P0guhhSE1vysjeYpDiX/iYY9yeJQ+jkh p5t0583XS28XG4WLHkoS iBMgeHTTz+dianne+++aztz5HseycC2RZrO9pwoIDnZw9IbBC2ETd7bxp67viXXe99LgZBdfl7MYrQttmbZE F7BSiifwylC33rzZ7kcO xRPhvMlFW5WmBRE9E4nI+K1w+ZEeOEyHc216+jA7rd1gIvdbI4io2iAfh1vWoT4NMTicBl7pvFtmuJVL v1PHzQNNQ0hpkcDAcRSG NXmOB88eSQbO0RJDt1vPS78nawzzMGNHqZvmMHnHdm73i8avtjN7E+YbhMgqIVRjA1/fyFMgikwJFzW9 LT1h9Bx/bcHOq4Hk0doi iynNjdWTtThPyMs8CllAUFYY7CQKWKNRU2JAu+TrjHzz0OAr9AUTAzf7GD576Z03JVV07v2wh+8CBnpy WQIDanZ/T2baojDZtRJf KuwFKgTtVShmgtZo8Gfp8uhdFzvkFjggYCAcpNp/m9nV9Uta1pYRADNqXsLGl2+eKu0lCwp2KDeSt+7Y C7AKybEW22DvfjkFaOuy VQ5aSZkDs7/td8kj7bYCi6P7iD9pUR4u6a3tJ+piOnLPMtBRdhEcxKeW0VFffEGmhNLi7hrxUwZUHAaK vaOm9UKOMfD5OXWHpDLH n+5XeR/TikzmA+Cg70dMhGZsTZ61e/fCHT3V0CgvYZy/XoQAWSVMuUsGtnxeQhp096Z7lAqRJArG8AmM JQSTIkEU3BOikhNXYgXj INT9NACalPwWDrmg31YPmMv9y4Le7OtYQtmyz0VWCUCbxP0K5C3RKhpryulCrHRKyXuGmCng6Rmgy4+J eJS/GjqRJVIUPI/I6nu6 k3J7f7FWXchLUo4120zhSpDGdAkChdOIYYsh2CXYfssJoQUyvjQVZM7aoH2d6cqlmh+gZQgtCVQsmRJu WWYggBrIEyBAUubVKtWT omehzlKxeALEmv7pxzMfE2WJB76sCmLVSaPVG1slIRqw2qO+TbYcs6oEPROTWInCnYLAFM9sFzM8Eatc dZ+K/kXbOuQgGa1Epf+R wT8qOx/X7ZSw9vEPdXH9kBfFp+xxRcQ/gNz8KJlRpn8m5mJxk27ALX0NtTtRRjwSdrlgMjcxiso3AOa6 K/29wEENV45IY5dxmLRX RYgTIFCm/RGdBtAsU+/TQlmXdMyXfZ9s5Ptr/voiqf5ny26oKwLfpfZsx6hdfVjqNVj0w+JWaWL/0PCK Csjjc4/NYDS//fk5Nnvw Rg34lljmzAadBYXykO+kDj+Mh8cZ+T6oSEBw+/1D8jUlF7OiX65sfBF3jBOKi/0wOeh4y6y/6gYSnzpC UpbvVLG8+bKRPL1B0bpG YUgcX2KoIRcUoRdH9rS0Z7ZtEEGmImBvOZVy5I+jfUoAhxAv0OZ2U799OYKkd4NaQRUCd3wYBBzLJt6Z sebaLLHAOhXFqeALq07I 6R5y3h3lqSbT7GJ3kMxIXqgIz4P7aNI3OVCG1K3qICMshURDycXgpzo4hGc42hFEqORhA3kk4FfkTQci X4Rn+gfQPGnjtuER/Pmz aIWYHdQBXTDMtG3jaKVvwslhN51PYFRDoDgzaqe1nKpd5KTqAEyFanSaMdsYurEdNbnGTFQDECETa4G8 GwH1mMYVzB4NjcHLPa/S unSBNiqCWRR+vvzQYiL1gnnaPI/QWneFFvKvM7ECLAQjZz0UFhdoK4yfMrGeb4vGRxHWmMHSKbm0FuIr ZLRiEpWGTiUA8YXiB+aN Az0KNOckLACIFX80wSHBgSfWE3IHdO4EDKnbZjXUKAS8YpfbA1flCqfjdyukD2qpAOdKcGYb4cUUFx0Q geObBO413mdNrO69wLuh 1ExZMRfIOOVYUTdmxKt/ZSoRBmimUIzmLmCqFgpom+QN81ntQlhwODlOc+zTWeTi5qY+h17lPv8ddCTR f0E0SQH4kYG8LZOm89Gc GUkMtraZfqKyTOf1BpGM5AdJo9pw2NNKvyCekW1Yw93RUWHpdewfVlpxovSKUQmDxXGOTRPX+qFHJswi 0WxeXVpcl0fXrSeuY5AD G+uIL/ZXOGybBlF1k2SC79h+c4fADkE9SSsFjN/W+TAaC077UhBu77yDTx1z9YNf5QtjlMFL7QH0ceXM 5o3KiDyTt/Go7YNp8iPK jeYMKY1NSFxjqNZZAFFvN6MevRGNxJxXTiXSMlixFcrCOGABDdCMOm2wcUCJlxbThciIHPCxeJ7LWZu9 ZVQxMFCokaFnvDQiT3aP /YtMrb/ELPXp0P5WgXUYD2NGs6Kro3lJbD6ybgCnpyR7WjrF1kYJRyA92OtnXwlIuNRm+a+kDCiO/qQX +3UKIf7aNbTlFFiBaHvV JB15mLB8GycExJJ2+wpMj5+l3s0IAwgHae76FK/mf9MCzdQDjfOskYDs7uGwb+5ETz5GceLMSC4K5FQZ ksJKiSEQTLReVGh/y6Ex di4tjta6H3J6N4hroTx9HYodcUfcTyjC5uPBON1vy5TfFkrCMk1bfsHL9PRFOCZt1JogG4YYj7vvMJ0d z9ulXAHmB/nL0R/HbflD DnOO62ntl9Hehd0UNKsVLPZOTb6yzurjkXqguIcr7lUiAHBQeQxRpFNv5NNFHfy6FzT5XvSSX4sYWglS Dpg/4qI+MAgolChfYRFE u14VFIjFXSYyBTYq3GoLBk+HFcum97ktlXDVvgMcL4XbOG1+Omnn+jPP/+WThgumNRMyHP6pcSypy65Q FkJITwRawVhlbsBf8QXP fWFBM488xT0GoEtJ+vOQHhYttdW6wfMGIHqqsm6TunvdMO+YhpPdyxeKRiwmHKQRXx4wbueqHJFfGliG Vk6KxYa60vNkJbVwBcsR nfWWcKYmF5t6cgFptIuZlL+Z4zXXvyWmMQAGbN2pk70bhtG6t808R133UIHXTxqU+KRMVBNTEVEtqmsT pI2euNWwVixL8fkRgNeu GVERGnP4rGZJUxwxdo343LYPK+LhpVPENdi0FdKGKnGDEHq4JJDCqbOhhIAV66/1zi6f5x351YRoG9+4 34ldFvDxe6gUwUg4zJu2 Xn8dNZEhpIGKv9ARSO2s8nnZVZJX1ReZ4qHuAFsTkZZNZOz7bxsqi/3R7GODNzsXRHP810oU9lI71+/r UIWIqNN+QBg1Kfyuh3zT tOmTZN+sLI7nTiEeG0yPwZdGytmq+uuu+qRWto4EsUIhRRDUmcuQ3kMC6Rwv5FSMGoXSAVquLLQePn9l javpGrVqtS+fXsaPHgwC q9CzoMOsOWYzeVDRsQsYUUqvZCRJHTrVUDXBQFTbjYHv5PHsdKBv/fQYrNITZkSY9oOJZgQRJ6BHrZxI IbxCRYgDMMwjE+wAGEYh zW8exAUrzEW5hWaXDdLAMihPRCXIKwF+SXGCROfVUSiKMqYn3ERMNT+/YjgKdBgQSzNg4fpjJI0bPIs/ M8R6wrNHNjmhNMELyTVV UXFixenrKws+HXtp9lJ3jVGd3cud75o392dlmc66uquf4BMY75CSbkdoGZWlyVyIrKCcRDAjSj6uNJAo tSzZ0+vZXPEJp8f+ROPB Fsth74J44ccEq2cm5zP7iSWyIojWiDw0KWIAsKek0bmyodxjVgXahuWgy3QG2+evvjiC/7SG/Dx7eDXP 0ZvN8CLNnvvYm64eCxxq ttWNT92hJv+/zewrhrsiiocKcqD23hDk/vvv1+GGSa/6rU3ZHs2h8cn131DFOGADFmXp8hKuQvjFSTWs Llr1yFXRMe/EytWrKDu3 grZE0Gaz0/+mSpWrCjDjvjvf/4Gms53sMTXFYmKIm/bzYvUv0RcHS79Oc6msYEHz96XzUVSo4AeFZeKX 4OxbXk2CF21mPHo4MKa+ hvTCy6GS8e21Tvyex/+iF19gjP8qOFgBxgkpBdZ6hOPv2CBgIsiq3J62cLT9dnHSvQJUNRmS1x0VCTqp erDkmJoohwyi0kiBukbC QNWuAUUwo94uMHhUQsQRB29TmmHZSMrshZxuwMKRm9n+ZhX3a7N770Ev5ooW4ULfJVQgVPoeidACdnM2 OrRowfVrVtXhUiOh/g65 mfvqS8EGjMAcVakCJlzDT+++KLyuQcvFrSPm2++MaPYvAhk64/jev/9/sBCuElS72zBNpOpDtJKRDno4 VTIO95++56tJ2eMncWoK cw/i2kN2Ey598DohPeCwu1ePzvVMAMorGyouRxG09w7gZMQO7oEnACZRydgrzubzdztoF5ds6UyJcJCS ETYzH/ZC8eAhDYHaBMFj 822kjVad2BcRGdKUTXQuxCm097W86CE3QzIW+/bt0+OxyAd+tllXDgEcTsX7AMkLiH9Lclp60IPeNWYA 8FAvv6cCcVrPQxZxxRAv TJlpMN+3Buc63//+242t0nzQxk2TA+WXc5iISEWAGoDOarRqIMBCYa8dUVMab4wkw+DNjUo7L243GIPd APh3bkzVeiVaPj70DV90 kkyDD6jyhWQvyuew5+tUrgHx+Ie4jfg/erKFgl6tAAWFwQGkr67PvG9e9FQcQ/0k4xr5bT5J/7880+aM cPMUZl9WBAbq7945Iq15 kabXKvylKccndmwqKNMpJsrG27QtFzrWmCtV5slvEK9B1jWd0jhkAZpeloV5CDq/fXXX/JKzNyYS93XU UufUJzMSKLlC0XE1fCNN 3j1YGpaegKRM04tzwzwk0/LuOTCNTs3jHnfeeis2oQbic30ukCa3zQlt4mrgqDdTH01XLZ3x2fv8HQPb 4uQjFeiCm60Iue3agA0M tx9sOENRTU2nR/iw51cSKwncQnOFt7FX+E9wfuN+59l3mZucynRG8io1eHnDSpWkgYx+vnh1VCRHQ6cQ aVwgXgpvUKcDAJH+sWJp F+0ZtAtzQmJvD282lo9kTSiPF2AyEw4p6vTN55gxDjcEDofS15hrukNv1PejJaSAwKzdUSMYcUqG02i8 a9egtoRGd625hzIiqFQh Ruk4JLRn7eyaiw43pfksgDiL7++3pnNDLBXCQV3fndkStVj+++/L4mLFZUa9IhxkJmrfpU4JG+kdLg+I axs+1ShVSd3KoCloR3WD LOFsmJglMYusXNjLGMEzOqNUPGLyQoZZXFJLPgn0THTsmeLNDlgGg5f8c//fePGG2+J2axfn21o9ibYf QPgVOTD0FCRAawRRVkR0 ys4hfeniO9a4P2fO0Z0OuZRTg1K2vTn3y0ETMFt91zmxFEsvr1QplHMF/hIQRFJI6SbCBmVyJKuDSY55 uYcY0qtqyrsVY0CL6909 tPLVmAyj6uBc9UMwRHPOVBd54920s5NSVXNITyRv3/1Acw9620kEYnmQxHkR/QoDWUUmOk0flq+33nnH Vu5e+LTA5Cd28ioFbIv3 q516CokrqE/e/Eizdt9UiohJDyflTBBgrRv89Ybj/dZIFy5fAzIUus84JfmCGfsORQygojOCRpVT433x zYYAeVk6aJNizRgsTUp7 X4bqYn52+4LX1m811xjnd/ViYa/8fjjj1/5lzFUbtAI2EMEIQYcFlf1nfQLYfEaCTmWq5v/WMcId6EMP GCA9P/+++85jvVUgGiee +8477E2Yz9IGzW45cNTYtsmlwkYxSnDUoEs831zD9Np5uFxk02sLzv9NXKIRcUEO/aLlp+KuRrRwpdpR JzHgoLWj6EOGIzDerlMr xhrrbcPomFnUUxPDyyw6ouwELHCKxQKohXl5h6nQnrdk6yOtoXOKi6Qjb7N9wANPfzvpaUgG1zBDXOaV a820MTVNdCULDvtOa7Rb a4Kkae0841kNiscrq77wUBb28NNAHexBRfjaYNOXwqwFdMEUs/s3nohrrbq2eWwxl7/RPa4jTotaA17q ciWwFeSZmWVxOv5yed56 lHEmMbLaHGmPZ4z5rcRtbbHZSKvT2d0bvLZpqQ8vwWNELtUn42kuVzehVqlqyR9YgCojvpXqBAONroOy Gyvskf3cl1CKX/XHUgnV SaGen4CLBmFrYEvhcAtqoqckkuMlKDtP7scRZ/e2Zh3347T2Hn5l6PRuKH4e0W5Mojh8Zknh17BXCCWy QrVZcuWqdirQQvNERA8+ plOCOjzegauB07he0uY1ZwDoPuypUCb4E3iN8dk9hvgcvrsL7AFDiuJSm2fkcyWyp6l20qDTenI81QZQ kCutCaANMjPk/fy448/t c2dwbg15Jjz84/eyGna4sr6hEOruOUUfzJUJgstzBswYVknJE0AIbWKlPUN+EJae/Y1kK3zi/ToIeMcg R4ZR/m4w+qt6LZVOU7Wy C8yDHPkOnzcRDydQ97tPaFfbPg49Af4B0nzWxDctBT0kgOHjlSQNgaxhyhHRwC3un1w+f6vP39fbWOw0 A7HxXVOxoW23F2jtuUar +apHrbtzr6UruhYMa+luHp1JDEML1a5iMJOFuWN/pAL6v5Wj8uAteSynXOrIa9ekIqLJonS7QizMFs7k Igz0suEN24s8ln95Eb7+ rGiYh9n9qgB7e30s+LF8897A6rwijeOjrCdE+euwkcad+e2gsPQRXgy8F3vlvotAn8g82YDtakQb3Ecl b++7373lmCHwg4r5ggZB z2kg9SGnh0Z060kF7z7nGVrtAPcs1hHtu23DVZ1ImpAmIw3VttC5pgKSEAhnHef1Ma2CdWxg/112wXCO uuMxt28FAN4GATC2vtIv mZPNAmrMIHP1q0N/3Yq6UlfsHulKc4RsbAi4sXaoz3D2EjklzKKUDKAuFhfD5OD6cjILnB6p3kZJAU5d 5cQ/eD6N+G+fKt74dbnL GIS5psuDGX4IMhpdwz25c+7tWJZL5PvRWD2UnOeHp6orQXdbPRVkiXTRBZn5YJuLgbFCBladpn62n1t0 aXJOPuzk39+UlG4C018E +mJM2jh7AnzxSag78n6j2KSngK45jihtSCu0/Q0cid9QHpL2OPRoeN9VxmAQOHFovOyMkx3SHHAeWwgw ewLXpvxOmLEiBHKZ/Yesenia 36mQuvb98+DJl4vCm7S3787izZUPBSJN22GWk7Rw6JBHbeLDZMxVs4vA021psXrSNDeAo2zj+uAVYivf FkuxwMNveg9kyiJ76SsG XMWnc0j5IDEzmRG31djvCmXa0sw36v4o+PqrWKLVZ9uIuo/W8SUbR5YbdERS9CRH9d5h0tCAr/YW1D5g zpnRf51lakOqPhBaVv4g GVHOV0sSEMUFnJekjZVrAju+/HR7MtAFJNOidTur8RXzsQxZlPKXeqRwed7584nuKzQ9fu2h5f NKVV1t8dJ891Mbaw9+z+ 7bJDeoeBpPPDtgUUJAgLYKJCypSfpiA3SREIseberI3xL7AKfVVuHTE/myp8kgSCj7vDuvK6GHU3Q2LN FpUyme+RE416WNVDOG1A WFOCw8Gz7t66ihcNq2uLwX6cxIpqNhavqvYDz67N7oNis0DdfRQroyUqUXIrNdfChh/Hb2RimuLDJnX1 LB9IrA7fn6hdaWSne9KU 1S+cVrgs0OG9+bNSWjbKkTStNdbYHJt/T1Cu1U+93CyCs076PPBdQoGSyjCriEbjnth0xXL3pQJSPV9O RUNTRNG3gFx2VY04jOJt tJCu1vNeYxFcbHdvhGQP9/OExBBE1tpruTTuAizIgtWSOeylC85K6+3eCMl0wOlVqkrltwHUEsmfOTu5 YXDhw/LeIT5qXLyrB0ZN JWKoJxsYSQLiTuXIwEvR3rmDZbo2TkeVu6l5bd7q33iI8HMSde5qSvAPE0A9s5j7mwFvgneUNIoDU6ek C379+1Evog6qlQToxlkM QfZqyB8gkw0TaOUnm3axGHS+usFgh1Myr6pFOKg0qQ74mmughXjZHKBfRI54cigeR2Mb0raboIvG87bl CCy8uR3u1LVwn/kmQDBi uZTsZW9zwkFbKHAwk6xOfoddRrbA6515zmVDXLA+lG5CXkRqusXRQK45VC8gUzwJ7tnpu2XLR6yEerUU QEGOneT8yUJrYAvLbyaJ GQon+keP3nG90wb7sCRtJaHbGhPqHyoJMaq0hJakxf13V5pD/tDifGXvhnF0v1fO319x/W6B7eQtVVMO c2+B5cZtof8IkTx9BWC3 zFpros5FagoZOrLUa7YeFq5zA5W9Kc2kvz9jRf09z8hZQc3MpeUwwkFMDFYznQDOj+7iHkptENU1VhI5 C8Q6UjLg7iH4x0p0LL23 esdnM5eycKJoMjfAkDFARMdIx1bZG28kGGNdgHMiKFQlsbn+EHWmabXzKU5cKeFKyU9PuivkbmxbK4mD FTDoHqEA0PqjOUTxB3Rt Tn36LRdfloqabHG3k9qf6n+Gc6hHG9023ve+bgeKyulVSADaJ3U4UOUXKYRU7wusHESuCFworHqCSEXz souy9TylEd/jTPtBasva BaPiq913toNT9su8H6t57viQbqcjJyZ8kdxjk1RmTiKPGPRLeUkbUnscRF0WQwps/wMtCWtIUEqf/jhh 9IPctOyQTeRrqjRrQXJD 9vkG5ZizAHgqtIQx1IJgxQjEKn+o4EWiKJPKZBU3j0NoqPuOLR/bdNjrYW0sktMTChNrAyejTrAju5p3 7XlNfYNJuvAqbflCddpb MqwHeXWO7EXUVj4uUd8eiPY6Cq2kz4uvpqWsTL0537ufq7JMsj/o0Ff/gIEVnYrrTkRQWTWQajA1TJLt Ja5MnWCbx1VVKllVG7ZC 2354EUhBDRqma9sD6cP7xNdyXdKLfQsRkUysMV7fO42/NTenPwTZrwwaXWG/TJG6RsWbzWwCLl7Zv8aM J6s83ZvEtjvnnGCRtZDP y9TjP7BRrSl9rsGRtxEDgu9aF8HA5Nttz18vbec1unnFUEbnCrrNmOvaiw6EiLfmTucDQGc6jkag4oFD pgS7OoEC2dwrXP6KzFNJ tMRBOwxrr4EupCxsmXZYUvETJvSAJkVmE8Nk97jJKjpyfs0hUdFjCGOtmo0PwZVcD4d66JxXW5MkraBh 9P1KXCar/LzavdOrY5Wm Y57RBOE+xryK6hPDDiim2d7Hs344ZI5MyHe5PjUuJOHVuMVU7Jr5zZINGWcygcOlLKw0EsuOmhz+ySwz HSsrVfyrWbZtIomu28ZM BiU66B9OdJHg2el8eozbBHAAe0dpcsamyClZL4IdYRnCfUmwIrd7ouXyLN+iaONWlvz17bLYiKth5YbB 59CC5RFj7Hr50JRzgH9y /322+XW09+FqRanxXpPIh9E0eb/7HiBipzlMkQE7J4hrWYTl3/ZYzXT9/IoLsww2o8Tjc2qMmbn8Ooxp KkhmlX1R0/We+DJ/Uevi CMdh1j94RbX0gtehdsHb++3033jlq86DiS3Qx9HBfKyyHjS9bqh5qzoe/sCaWi02HKDVL4Ls1D51kXRc ERCiS1NGwQ5NHqhG1zDt UBMNoyZnqyDTZXFB3VSxaVw+WwS6vqvUctgP7HuehCdtwpVJPEim5CEIYvnB6tUydTypCrUrhs0S4Kpu PcEl1LFMn85EJhD53vAO kzYjqn0ptxzVH80zQZrC6XJ3eqjzw5KnXdaTLnf8HyyoEtPSdGUiPtCgqwg28bwIbdXu0/e29MvlGkxE z1r7u0xpqohXGLzVbRVQ uz34TAJdhquOFTg7aBs6HW9qK5239vx2MRtmNWF08o00GgM2jKd500uCTPHGKYOIj1MvmW6DrSNmPwsS wzodcFckdcaiNcCRC+ei PzPjsU9FkbUS0FTA1fDEr8TZ+/1sa+64txTgE6VqTUwG2Y+KE0PdRTjQ7OwpBeayeMdhiGU5GbD9ePNL BNaOjIGbV2H+xCR1255X vw+kI0w2aPUrDV2c3keTHFe5YGr1aV2YDiK43sr3+5EdOdfXX6pCOwrhlTUCWk4kcs5sjSjbToE0+KqU KGCV/jKd8ezmab7lAaLA SuNHwzK2rJzoYzxPOqvSKwyD7jH6saFmTMcOT1zqJzz9x5uVkzpDB3LsjprTgWmTeWsC6p9ewd3A95t7 aEloB0mBRwCIY5cQwGsI EYYD8B+wUD0+2UN2FcyZrdD8grMrVENRWmRk/Ja89IO/a/j7qXyntK9yhCy5c+XU3sqmW1JGAbxm1rI4 Z4PNXkMv7j0PzYS9G7PF +W3t508nYTSbZPPrfDkX7k///9ezuHP2YSOQ+U4W1voPbHbr/mvDRfJYmbWxaaFrHp9m0BEFufwnlWpO t2qwOAEdOE51qf+4j7qF 5KnlINkdpMVol0Uo5niJCMuTvdo6MFiUaNVJQ7UsJscgUzvDAf4F2rb1ufUYdqPwQBQ2L0zKR2zoKQd7 Sh5CpGshmSHic670ZFrN 3vqCB323wOOSbZzD09ddlCjHBgT3AzQZ4ay6nsbUxAg9N+jjLoCHyPqrYN3g1E4clsQYjo74LP+gxVr3 TmMTz9x77ReD07PK6PV4 Iu6RLXLsxIXoh7SynAJon4O7yP2CScknblmuyAkMV+N9j1v2Esr5OGVCLNqKMcNfXJ1lLtDQsKsVMWm3 8ctx5Uze2wKanRwKrck4 gSYCNDKL9NGAAbTOjPSxGRPXe+OlsdMFMPScvRLEiJVhy3t5AcXGLPovMxEHNYjAPhoh7ZEjSYYQ7Q8M Od3pGVEqAYTmfMDEheGW AkZSW01HQmdQZQtJSKfMi5SGokgsUhylmMYYXU9vVIiGKRMjnqcy1qvUgxhP+jYZ2c6ZZ2u4S+Ia0D/M Lyc9UcQ04kXl8Y6Ae3yR FSHv1HouC/jiqvYxqFeD1V62NwstchD9qewMUoaI+4f+qxFK05+SOrw7ptmHCAcBu8aGyyxlHEkL+sbx SM2cZXz6ObYLurp5ylEL stpIct30wiw6nVeEkh4p9BOe0ZAFQy/uw5No4L+QH67xMaSM9VfuMr5x+WHAUadaI8JdHGZJv90+xpMn HUDhIHAPchLqVnBa044o aRxPVmZgUvx3vFcqa9sQGpSAIXlE8eVnz/GpN6tAdkWsxG+fNmqh7tCybPdd8fykVWZomx6//770hQYH 2FM25ETxnwUCOGcNlM/G f9j2oP2k3lV3XFamZQtgKS28/ylbRYQ98MbiGin85j1soX6eTTFhFgScqTk09CixH59jMaqQi+X7YGJN emjZAUtirdix9VyRXb7Y sdiUsXuuaIXvMhQ5yY+8mWqeMqua3/pUzoyVlArDVHwICNaACb6CDD+M1UpgPmKwaH0HagUmtDDTzAmU BCGYRjm+oEFCMMwDOMTL NPSxvCVw1VMcpZIs/iIEaGKXFfII1xDUBlNPR9AHrGgPLqmJPDvITYxtE+tEVQSfcC9oqPCbjHU9oOeB BiGYRifYAHCMAzD+AQLE WHmCPNkRHXaLOXzChFGeBVElgIBFgXEoiDQN8GZYGcGHAuTVKvTZGzkXopLLIHcEJ5dQtXlQYS9HYqXz fUYsxk3CxAuqZLU+fn5k b+/x2hxN9RSRcsJiapwqTZDcNFNjjGApbkOa9rEEhiN0s8hltBkfmt3sslg7aRVE2zgW6iaj26gtm7Z8 9xzD/Ca4fDmRyhdCUrmM VXkwgu07EM+/ZxtR1pfCmdUzzKwtRnd7Cr3UEgKDFC3JnxUdw8eOf49WHCoo6nxbUa24jNT+bdq1Yp+/ rstaldf78+gg2oqo443X w0557725yzbCa1a520/MtaJig8aBI4c8lijju1mSBxW9si5C8kFpDulI0sR0qF1oEvCYl8M1+7I4fz/N ARO0EZHlZiDEgKIUsIdE YpQoUKFqG/fiqj7H9sZ5owNk2CjdBRo06XMbw+mbdaivWEnFZkOIKMPuxIm91OFW2ov1Mvya0vPvdzkl BZMAGwNbohvZa1GRi3IX TdTWI7zwNISDnC2Pc8MC6rbX2pBJAbrfgfMNCiAXq+mW2+3HScFrxSb9wXCY1Xgi/kbup5rnHdWU+kTM 1pZPIR3+/btjX79+hm9e uXsvW50rEPE8SVZmu2HryAzHCC32+ap0L+DcQv2uh4m8m4361DjuiY3AasRCMXUsMhc734/g0LFWY1xE DDQEIJYOoRPnjypUuSkc EBUqy0nJN0lI41NrsRzQUbxlyAlFCxVWj68QNt5T6+VX3/6CcMnFpq3zpSR1HuFAiiqlrnN1qxf4xoQ9 Tm6m9IDgRLbsNj3ToS7q fvs7+c159eqLrjWr7/0DpLOUPkZnnmeP6cDTWwdhRZkspFXvof026jGydjSJJ3xibvXPsaeCmdk6vDzR QxLovVkJrQmXstAKc4sA ga3Zvpd7koV58ZiT1NvszVFPEP1ff0awNnZpPXeN9nU/Si/2ijnLNPqW2/CjEb7qV0XQbgcM3u/T58+K mG9kLwWb0yAi5EGoRYd9 aoy/E197FSG4KS0QrPCYOnwCD++GV0BEfBYGYTl8XZ4P+HQ40zpGy3x+LHHHlMpcvLXX3/TbeiH8rW68 Hncp5eIgfpjgmbaiqKwm l/Lqm8TxYkSBKvKmu68rYB/0tAKWfDHN7Jppf/1k08+UTEmlSpVuurhIPzLL7+viFBJrJFlik3HCG+PK 29YF015X2ha60LONufgA SbJvJ9ySD8DZ6L14Dr5dGfoJSZBsp8kRJ2//BQqu8h2LrTDPasYzvyBBjWbN9+bJxVCPdYT4kr24EECL kUoVvpvPvgGzXz2ZDV5r apDP732Z1HCfEucExeKNuUZ9zHXc7L15WGtOZhsIU31flDbLv8SNBnle4vUKyRZOfBofW+a0wYvo6e7A res1cfhN3JKEI7Bvirbm HX+xoLkpJMdoKf3gefCsnVVs4J6z3735g8jVc89u4R79Em9IVPlUXwpC1a7B//8c+ZLxPHKh456ZFvh8 2+/CTfyvvc2inwL04pzH wtyErmY8FLZYmH5uOeqq//4rsvlg2BWGjsk5uTwXispBLWjxZHkdZcrlxkMqcIQ9SjJjpfwtiTeyTZmP LaBauSiMsBqfVkpBvL35 HNu4XD8eAwxbU/SvGFv0Wq161oE0X+++rbw0jeFrI3opTQrshqpfuGwNsnwwbXnRzFsXUgczOTobcTb4 mTR2RSdUSeBc33DkQNqR QeNBc/A0lWFybURkQJyccCK/O9//7Dz2NSuRhf5/N2JGA6fH1NlSh/WoWssSZxlmKUo5Tml74XMILzZF wOI7xIwv1ptch0++KGxd SjA6FnYRzZo1clupWit42tWa3Ggb47uP9rMynpLUSpGE9AiAAkyxOj4xuHogBdqnDv9RwqCdODpzp60S bUKZ7BXHT+DA3ApS0hBN dIF3nhDjjK4kELUalrQ9WCAj5H4j6DbIXXaZ+7/+gngQNr3qA/34fyNnMLBDtX2//68TrCL9h2xgkpoY mYChvLmDNA3QMKaiRcJV Un558RaNe4hYRZqVS2/RAUK9hfZgWWKl2vlKcsz9fwYi1XFNKLWxrfz0BCnhYBl5f724wVYewPHU39+z wZtAUURGsXe62jRz526m 1muEp226uqw7LFCuiVIcLNGsaLrqBaMk/Cu4pNJQZFOgwXYie27DIm7rnpnSx+2LmObZH3G4BVlnhfqc 12e9/7777ftx/SD01gSQ DKruirRHqfg2NFDcvAgsigjlUSZPwdPfHBUJ5tRHGHEl8ufIJx2+bioHug11hDPzb7AAf8fjGLkHiGQE dqcRhZ2sVD/b2pA7EByz ekZk6cff9022xCQVv3ViKYMez1iNySQ59mtlYym1S10pEBvgjuIXWvrNem0qYiBs+wHlTLZ49vntXPf/ db5K7RpCXvgAGZdiPR75 jsTIKhHsP+GU95MSxPpirEQTQWOKac5HtRVJvWT8aOjkm//bLkLI99QjYGvWcfa9f140pY+U+jiOG/wL oTGELQsqJFk6ebjbj1mB HWH111xprPdzUvArl3rqPDAR+1a51KS3h3ZGu54RGi4uaJW//zzzzKsQaWP+LwA+we2ogQXkIdc/LTDS 7fEZUS7If2U/tUAoVc2o 5wxefJkl/o4IWI6Mrf+/Ca9tlFDltp9ky8jEYqu2u344ZplzKGAP7mlJTe6l59cAFIvnsn++ecdXou+R jhUltYGgwaCyNGxAJVm5 00uYzc6lqUH3o3sYJA9F4gDnHlVIzL6IiQoBVXLzMZbnm6JudRmvC/+4r0UGbNWH9Cj514AZAjF38mrn 9xaXf/+/VUqE+u+smXL2 vzQkJzhSoAAHA+i7OcKx7/FnEwlevEFpcFojcPAfJ7KnJlKN88CJU4VsO7ujxcp08RvRYk8KOJ+QaN3h X9R15Tup/YOA7ywHMMvA lo8llREZo9qlTBTMFShcAejdWxxaKberHZFzYCyblGVk9wxqoviHZwMIcKKwPFMXTxocYQCwNURS4GUm s9gaYRPJ96TL9VxkI6// NQ8Fv3XT1/D7gBuDxcbKO92vh1Tlo+PycnuDY42jRswUs6jJpqi3oWPdJOCQWS//NVMoCdGfBiiAp8n5 fTE1hiLDedDjiredKNQD 99eZibN0uo4fN746ulPi7FfPlmIoaKQP/TLL7+LpR3zXG0a0qBPdBEQGpFsDXcx5zj0a1G0EQAM85GDw sHV/suKOIiX9JpiODxF0 sifhiBcyHncM8ovy2qJyh+wBvMxp3c51k043bBN4QaPN23OJyttJQWz8MEMXirUBuy1WqiClbM1gTMP+ 9GSTcuZYTHU6O54DDjdk 2iMemXFZM+1laqQuzQ8M4DCj6+qP2HgxKFBAuage8Bo8nS++oNihwv4EtoSgSF3hMrazJDxysQxATdDo cn6KnNMKRmXeIhvIu3EM EZYE8MFpWenNnXIEiWb2zA84Ao8Xg3u5xQkFbGeOXfx7ooMNiJqjqcBkB+Nn6Okjm2++knmc/ToURVjg rvEc4PHfx6fn+6KcQYsu He8OI51XFZwFfywR3Fk0gcQN/veY54zxEliMtLrpEGhgDLAsxJoNJU68bMzhWYnGgF6UPa05mLwhtBH2 HbdZ7r826SzLfXB5E/v7 YqsCAn0oqGk0TVUHWIagOmHfkTYOeylDM74RWRyEM/H1fnVhzNNzg+BBvH1pLcrgSwuoxGQCWPcuYTlr uSgdSRdGpi57WxVhMx40 2coENv7Er1CxWsaSevvEVsWaAecFn8xmlaeGbisZaAmvlKwzbLs6SexsWdau0Afn0SRZloCNczTV08Ak BoS1fGvPdPVwk9GbQhrL 9Kj3egb9lWcUGf2mfIinksLOQ1CW4+yH/mYhIjPkFpbr5P8MClavmm2504HL8oYWbSQjmj+fW7PB5e4G r31gBbo6ao2DeONqYrVa Atkinson/J2C+CcMXKDz3jQqqVkn6pd6gJ7t4jcmEwKVDlcyp8mXb7TPXHVhaaCG7HCRErCK4DVMr7S8LYeKPH NnCZ06lQFXYUQHlRYgBZ kucnjKofRkkLbMRyjKL1bVk2GuwkEcEwqa5H9AZNJRA1mvy+E0fyDyayvoOZ2O9KIOaOYJ9P2EEfeKBI NSvnnzAv6tR1gFMlwWpf IjAoacPVpyqTyQdtsqtBBPjDmavfoRfjsWExWvQKKaS0tZy/X9QRInVTsqkxNAQibz4Lgz37c1yk5iBU 1Nu7X+/cC7Eum9oEMrdo SBHT5auUBGPVHNw3m93g+6V4oOaASzF2CsbEVkLO8ZzZTlOMGiPU8Cr2HOfARxb0qNUtpGxtc6ZBd0Wd GlQcaExgXtRpUoVWSmhG t4ZvHncH0/rlKtbFKN0ruXSyAONhUw3DjYZeADtN2jd8s6H3uvRvXnU5WacYvgKN/CBEBYalaygMJESz 6Mt7ldp5OhP6TmItFLZI bRIc8985CemwpJVNDXAWbFaqORyGGSdVSX9QccmoRneeqEykroKMReZHWELpGA3Yd7+uud3zWv0K0a4n gn54ml3skXX4GywtNDDQ ++tzfBYYWZ02qZeKRp1hWzmy5AXVid29y/Xrxzqd51FnzG03MvV64JiSxoJ3C3ja2PQJ3ZEhbVRhzjC4 HV7lAF24RGZXwzGynhFO 9tJZDoOgpwM01rzrnglW/uuMJjOId5+0kPoc6H4g9Pq+uPlAygguDWkZvuhPVZpymzeCA804luTWXXhD S0ktTyV6+mZ1Dqm2tpMO 8Q7G/u88iGcIpna5zN2fMgr9AuMJCQ7KGRVbS9y7ZV2XrkR40X/2U1b0+T0dtZBeqtMlOMYynyq3SO9/ 3cvsQne4UcXv0G8ucKyL xLJl4vHLZp0EbOfXJnBy4NB9xmFOnh0ZJxFjghkqVn3RqJ4xT81ClN7PvW5FNjO12dXP8ufXXYfi1A1h nRheZfagp4/5NuKie8XD 2CfVFkdP1bEARzQHJiD8kwDnZQi2Cb3YZR/6WqprviIgpCFTEmLn14+hy44hoc65n3qUMxb1aAXrfVur loDidafSpFducHBlhtCE W44tC2XTZ6YJUSYWS4GaGGW3YDrJcXmOJ/M+1KxWVPmW5v0uRlQCp3AvFsAozqibO/f4gCpexHOkpwVZ R6mAN3wSNeHsMAiKA2Np huutQDR1+wNNXNbCkubzLvPNQ4TWeojI7iVOw4YT8NQDZardNhdBdhyvkwv6g/XheEbVOvkb9999abCH hMp3dcKrKLEZ8CNqy/+K I/3Fk/mQmC/d7el1anmhvHZM9UMWr76S2tRS2L/yhhgranLd9igk0NxiRNQtllM68GJJ3SQyTJo0scWp ViB2acVzsAzxcqd1ggPU YkFFjszkVzbGjPH3z+jm8S+emB4dn29n53s3HRfAxpsO4Tuu9idEwKDtzQ8QnC4vJHiB0WKVNGtO1nYf UMHp/5pliA6mA6s+1t4+ +23U/ta7vB4Z/AOWyv7xnmmJIwVmCR28wGPLDaB9c2t38JrSgnESXICNiOvM7pIeg2TudwG6hRwCDbEd bNx2MJVUBVCpshPwqZhz n79+dwIESuLhs8RGUrDVj1RA97H4947t5hcENpJkHkjp/qVMDOy5P11K8Rzcetn8wcvy0oWZQ0oICeOK OEHpNX88jrtr0IR5opoG PSRf1StS1rcdNeF2uiCe0P9ftNkaKGQkHwxHeNyCMp2azFLmBbQAzvwhVp8jgF37WzCmlIjihK37sEiv O4c3R/aWXQGlAlnrcp23 1uhPE299pcB284fwZ0CgDZEpATL3JWC19J2qvpFw0TPeFMj+ou8ywBHB/ktR1sR8jX8bn9x4BBxwVbOc YRngN/iCoz/3H0F9LF/O 3HqPy4h2G9rxjfmOLfXikcqWuIWsedaYsFwn/cB9Q+6LZEG6/AoQzsN6YepI19tAXKx5eCHWRPolQNIJ EIJi7/4n4hcaigihzOhT cw/H0B2XtH6FYu9wwimaPdV6PjzSV8HaYipMeTeF1F3wQ97p1QkoV81TjWjMMbbzRS/FND8+/ixe870W 0/FLLWVa7Egvb2rGZXUj JqMLiBM+vkngIUHWn+wsGL+DjM1Zfl7SCkugnKJZGINIhn5rTrpHlrFVam7ftEWv+FjwXzFFu3z80wJn yuuRFeKKUqg8ITGyrJGm idYgDAMwzA+tDASPKhE3GaCDWcAMOrJjCKcUCZzwCAx/2Cd3HNIX778MPYLDMoLEjJeQzVZ></span> </div><div>
</div><div style=text-align:center>
< /div><div><strong>Patient Name</strong>: <span class=clinicalNoteMacroWysiwyg id=[id number] macroname=PatientName spantype="macro title=#PatientName>ALYSSA PULIDO</span>
<strong>Date of :</strong> <span class=clinicalNoteMacroWysiwyg id=[id number] macroname=PatientDateOfBirth spantype=macro title=#Pa tientDateOfBirth>1950</span>
<strong>MRN:</strong> <span class=clinicalNoteMacroWysiwyg id=[id number] macroname=P atientMRN spantype=macro title=#PatientMRN>[id number]</span>< br><strong>Attending Physician:</strong> <span class=clinicalNoteMacroWysiwyg id=[id number] macroname=AttendingPhysician spantype="macro title=#AttendingPhysician>Sarah Coto (Gynecological/Onco logy)</span>
<strong>Date of Service:</strong> <span class=clini [facility]Not[facility] HospitalcroWysiwyg id=[id number] macroname=EffectiveDate spantype=macro title=#EffectiveDate>05/10/2025</span>
<strong>Referred by:</strong> Dr. Coot

<div style="text- align:center><strong>PALLIATIVE CARE INITIAL VISIT</strong><b r>

</div><span class=clinicalNoteSectionVisible id= [id number] internalbreaksection=false originalname=Chief Comp laint recognizeconcepts=true spantype=section suppressempty=false>Chief Complaint (Palliative Care)</span>
Establish Care

<span class=clinicalNoteSectionVisible id=[id number] application development intern albreaksection=false originalname=Oncology Diagnosis recognizeconcepts=&quot ;true spantype=section suppressempty=false>Oncology Diagnosis</s nava>
Stage IV SCC of the cervix

<span class=clinicalNoteSect ionVisible id=[id number] internalbreaksection=false orig inalname=HPI recognizeconcepts=true spantype=section suppressemp ty=false>History of Present Illness (Palliative Care)</span>
This visit was provided via telemedicine with the use of real-time audio and video via [employer]. Alyssa has provided written consent to conduct this visit via telemedicine. The patient participated in this visit, noted that her home health RN was in the room however he/she did not participate in the visit. The patient is located in their home and I, Dr. Carol Branham am locat ed in [facility].

<span style=font-size:11.0pt><span style=line-height:107%><span style=font-family:Calibri",sans- serif><span style=color:black>History today was provided by chart review and patient report. Cancer diagnosis began with development of acute renal failure. Admitted to [facility] with this December 2024. Found to have cervical mass and bilateral hydronephrosis. Biopsy confirmed SCC, PET showed disease extension into uterus, bladder wall. Completed concurrent chemoradiation with immunotherapy, followed by brachytherapy. Admitted with complicated UTI earlier this month. Treatments have been through her local Oncology team and [facility]. Anticipates a follow up PET in June. </span></span></span></span>

<span class=clinicalN oteSectionVisible id=[id number] internalbreaksection=false&quo t; originalname=Social History recognizeconcepts=true spantype=section suppressempty=false>Social History (Palliative Care)</span>
<span style=font-family:Calibri,sans-serif><span style=font-size:14.6667px&q uot;>Living Situation: Lives with her who is older. </span></span>
<span style=font-family:fidel Peckserif><span style=font-size:14.6667px>Support System: Friends, relatives. Home health is following. </span></span>
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 </span></span>

<span cla ss=clinicalNoteSectionVisible id=[id number] internalbreaksecti on=false originalname=Family History recognizeconcepts=true span type=section suppressempty=false>Family History</span>
Not discussed.

<span class=clinicalNoteSectionVisible id=&q uot;[id number] internalbreaksection=false originalname=Palliat paresh Care - Past Medical and Surgical History recognizeconcepts=true spantype="section suppressempty=false>Past Medical and Surgical History (Palliative Care)</span>
Stage IV Cervical Cancer
HTN

<span class="clinicalNoteSectionVisible id=[id number] internalbreaksection="false originalname=Medications recognizeconcepts=true spantype="section suppressempty=false>Current Medications</span>
<span class=clinicalNoteMacroWysiwyg id=[id number] macroname=PatientMedications parameters=ListType:Bulleted spantype=macro title=&q uot;#PatientMedications(ListType:Bulleted)> </span>
Per outside Oncology note,
Carvedilol
Loperamide
Miralax&l t;br>Compazine
Trazodone

<span class=clinicalNoteSectionVisible id=[id number] internalbreaksection=false originalna me=Allergies recognizeconcepts=true spantype=section suppressemp ty=false>Allergies</span>
<span [facility] id=[id number] macroname=Allergies parameters=ValueIfNull:NKA spantype=macro title=#Allergies(ValueIfNull:NKA)>Cipro&l t;/span>

<span class=clinicalNoteSectionVisible id=sectio [id number] internalbreaksection=false originalname=Review of Syste ms recognizeconcepts=true spantype=section suppressempty=false&q uot;>Review of Systems (Palliative Care)</span>
<span class=clinicalNoteS ectionVisible id=[id number] internalbreaksection=false or iginalname=Palliative Care - Pain recognizeconcepts=true spantype=section suppressempty=false>Pain</span>
<span class=[facility] id=macro_[id number] macroname=PatientPainScale" parameters=LookBackDays:All spantype=macro title=#PatientPainScale(L ookBackDays:All)>3</span>
<span style=font-size:11.0pt><span style=font-family:Calibri,sans-serif>The only pain she currently gets is at her nephrostomy tubes. She will take Tylenol at times for this, 8v928aa or 0l378oa. Feels that currently it is not severe enough to need Tylenol.
<span class=clinicalNoteSectionVisible id=section_[id number] internalbreaksection=false originalname=Neuropathy recognizeconcepts=true" spantype=section suppressempty=false>Neuropathy</span></span></span>
<span class=clinicalNoteSectionVisible id=[id number] internalbreaksection=false originalname=Palliative Care - Sleep recognizeconcepts=true spantype=section suppressempty=false >Sleep</span>
Sleep is good.
<span class=clinica lNoteSectionVisible id=[id number] internalbreaksection=false& quot; originalname=Drowsiness and Fatigue recognizeconcepts=true spantype=&q uot;section suppressempty=false>Drowsiness and Fatigue</span>
Energy is low, napping off and on.
<span class=clinicalNoteSectionVisible" id=[id number] internalbreaksection=false originalname=& quot;Nausea recognizeconcepts=true spantype=section suppressempty=&quo t;false>Nausea</span>
<span style=font-size:11.0pt><span style=line- height:107%><span style=font-family:Calibri,sans-serif><span style=color:black>Patient denies any issues with nausea .</span></span></span></span>

<span class=clinicalNoteSectionVisible id=[id number] internalbreaksection=false originalname=Appetite recognizeconcepts=true spantype=section" suppressempty=false>Appetite</span>
<span style=font-family:Calibri,sans- serif><span style=font-size:14.6667px>Focusing on eating smaller, frequent meals. </span></span>
<span class=clinicalNoteSectionVisible id=[id number] internalbreaksection=false" originalname=Bowels recognizeconcepts=true spantype=section suppressempty=false>Bowels</span>
<span style=font-family:fidel Peck serif><span style=font-size:14.4988px>Has been constipated, more loose stools now with the antibiotics. </span></span>
<span clas s=clinicalNoteSectionVisible id=[id number] internalbreaksectio n=false originalname=Dyspnea recognizeconcepts=true spantype=&qu ot;section suppressempty=false>Dyspnea</span>
<span class=&qu ot;clinicalNoteSectionVisible id=[id number] internalbreaksection="false originalname=Coping/Mood recognizeconcepts=true spantype="section suppressempty=false>Mood</span>

<span cl ass=clinicalNoteSectionVisible id=[id number] internalbreaksect ion=false originalname=Physical Exam recognizeconcepts=true span type=section suppressempty=false>Physical Exam (Palliative Care)</span >
<div style=ttej-bboke-ecah:none>General Appearance: Patient is awake, alert and oriented, in no acute distress. Patient is dressed and well-groomed,well-nourished with no evidence of self-neglect.
HEENT: Sclerae anicteric.
Respiratory: Normal work of breathing with conversational speech.
Neuro: Alert and oriented, no facial asymmetry.
Psych: The patient is alert, attentive, and oriented. Speech is clear and fluent with good comprehension. Insight and judgment appropriate to situation.
</div><div style=abeb-zfibp-erul:none><span style=font-size:11pt><span style=font-family:fely Pecks-serif&qu ot;>
Comments on Pertinent Labs/Tests: Last WBC was normal, Hgb 8.8, Plts normal, GFR 43, AST/ALT normal. </span></span>

</div><span class= clinicalNoteSectionVisible id=section_[id number] internalbreaksection =false originalname=Palliative Care Assessment and Plan recognizeconcepts=&q uot;true spantype=section suppressempty=false>Assessment and Plan ( Palliative Care)</span>
Alyssa is a 74 year old with metastatic cervical cancer whose cancer directed treatments are currently at the guidance of her local Oncologist and [place]. Please see below.

<span class=clinicalNoteSectionVisible" id=[id number] internalbreaksection=false originalname="Current Decision Making Capacity recognizeconcepts=true spantype=section" suppressempty=false>Current Decision Making Capacity</span>
<span style=font-family:Calibri,sans-serif><span style=font-size:14.6667px&quo t;>Demonstrates ability to understand illness, treatment options, make an informed decision.</span></span>

<span class=clinicalNoteSectionVisible id="[id number] internalbreaksection=false originalname=Goals of Care recognizeconcepts=true spantype=section suppressempty=false>Goals of Care</span>
Anticipates having scans in the next month or so tobetter understand her cancer status.

<span class=clinicalNoteSectionVisible id=section_[id number] internalbreaksection=false" originalname=Palliative Care ACP recognizeconcepts=true spantype=section suppressempty=false>Advanced Care Planning (Palliative Care)</span>
1. Healthcare directive: Not on file.

<span class=clinicalNoteSectionVisible id=section_[id number] internalbreaksection=false originalname=Psycho-social/Emotional/Spiritual Support recognizeconcepts=true spantype=section suppressempty=false&quo t;>Psycho-social/Emotional/Spiritual Support</span>
<span style=font-fami ly:veronica Peck-serif><span style=font-size:14.6667px>Supported by home h ealth and multiple loved ones. </span></span>

<span class =clinicalNoteSectionVisible id=[id number] internalbreaksection =false originalname=Palliative Care Plans recognizeconcepts=true spantype=section suppressempty=false>Symptom Management</span>
<span style=font-family:veronica Peck-serif><span style=font-size:14.6667px>Pain: Nephrostomy tube related. Has home health assisting with dressing changes and monitoring.
-Discussed strategy to take 2xTylenol Arthritis at bedtime if sleep positions are limited by the tubes. </span></span>

<span class=clinicalNoteSectionVisible id=section_[id number]" internalbreaksection=false originalname=Palliative Care - Pain recogniz econcepts=true spantype=section suppressempty=false>Summary of Changes This Visit</span>
See above.

Return appointment as needed. Reviewed our recommendation to continue to work with the teams currently managing her cancer for ongoing symptom/support related concerns. Should Alyssa resume care within [facility], we would be happy to see her in follow up to screen for further care needs.

Total of 32 minutes were spent on this encounter, including video visit from 954AM - 1016AM and remaining time spent in documentation, chart review.

Thank you for including me in caring for <span class=clinicalNoteMacroWysiwyg id=[id number] macroname=PatientFirstName spantype=macro title=#PatientFirstName>ALYSSA</span>

<span class=clinicalNoteMacroWysiwyg id=[id number] macroname=MyName spantype=macro title=#MyName>Carol Branham MD</span>
<span class=clinicalNoteMacroWysiwyg id=[id number] macroname=MyRole spantype=macro title="#MyRole>Physician</span>
<span class=clinicalNoteMacroWysiwyg" id=macro_[id number] macroname=LocationPhoneNumber spantype=macro title=#LocationPhoneNumber>[phone]</span>
<span cl ass=clinicalNoteMacroWysiw id=[id number] macroname=Locat ionFaxNumber spantype=macro title=#LocationFaxNumber>[phone]&l t;/span>

cc:<span class=clinicalNoteMacroWysiwyg id=macro [id number] macroname=NoteRecipients spantype=macro title= #NoteRecipients>Axel Palomo MD</span>

</div>

<div><span class=eSignSignature>Electronically signed by Carol Branham MD 05/14/2025 09:56 CDT</span></div></body></html> * [facility] Consult Note <html><head></head><body><div style=text-align:center><span class=clinicalNoteMacroHighlighted id=[id number] macroname= PracticeLetterhead spantype=macro title=#PracticeLetterhead><img src=data:image/png;base64,iVFFDt2SOorWWZVBWInIReQAUNOZOJUbZLVZVOA3Em+UAAAACXBIW GYOBL0CO QFAgLRIMd8rAESFbqyNPJVWHIw5P18wYhJwr7FqQfivsKPASZYGSU46aLUbz2T0GBEwM0vsHNKue61wK AkiYUKOUW2eMMEDHFipQ WqcITY3NwHqesxqOHXpKa4rXSi7jC1bsRR1ZJQ0lVstjez1ZTIlGX3nEAhgalhhCTXvBrYgxGc6pXF6x c2mCXXwSgCrQD9QAQHez mXeZj3wLGArJJSxDayxITQ6MNL9VKL9KNYsQOApDbC3TrPvBEQiKrVjInDbSXGoICUyIZUlGpS2qwNeA nJDKmO7oJcnnimtMNK0A yc8qJB3Da30b3fghtRpq4UrDoN8XZstYEYmAwPikfArTEO1xnSfoS9pasLdDkH4sgRjYgWwy4OwpUM5v H1tLDFuByfhVx77vG1dT mT1aFvvpcd4rYU0Fna6vQT1Kq3xmc9yRH4pUC6vr39leNFhRkNnMP0fDFyoiZ5yKjPiRQXqtWVnYg7di SFxoD1twnysSTZsYNvxb DDbfMYoKL1xQiJilJ0fviQ1vIcpdJ6sgU2cJPMdyMCoBr8zrbKvDGCjWcYeA17wE1Llq4Hsx5ntyF0rJ rIrXnG0jVdogdv1fJZBW Q9owQV3gTkxR17qCbRwa2NaWsTcpS84NNFfOI6aK63dXaOboM9eyiD7a1PYkaF3Kpj9tLZ5Ww1fap9cU M7aGH6hj90irAAnAvWeV T4xFIviMK9URNOdoKZfNDQ4XG71OtUlpD8yNjGaYUA8n9OEm64fSFDEBR9mFZIWmP37g5Wyv1YkGmOxD HGkSPSeqJ95q4KmWSRwo W9aXuGwBCA9EORzqBB6RvFrRsQhNFPdCsaGCVQ0Zpc7EgTgVXM4ELLrDZehaImMl2LiAitXGGSzAFJpJ JTkKTFmSSI1WCPuJuFwT YV1PkOePeO5aPJ3ZBD3HJIfaGQMKHLxGAZlDEHwVDNwHSC0ZCDwZeQrVOE2AaPwJiXvDblet4CwKYU0S mqkGTwcT3YhKdCucRjjf A2fmD5uBcAyfS2mRO9jJZ4oJwSeuD5jQV63ZO3orVHaK3QOOO7fzQ5vVnlyFDd1FUPnNdDyRZ7yBPUkF VB1RvjuEJs2AJ41LjO0P IWtYhMkEDDlMOyipW3IYfIyU7LrOH88KCC1HavokU4etOG3LHQfIaEyDEXyLuctYu47MTT7PNy8RtiqQ IZfFhIeA1S0WSIhEsQ8k GDJDRlVkcfukJ8srJDrF9UxKK63YVL9BahudD4fmZQ9KLEeEyApRQJdYockWu38LST0DGh1IzstQNOcS pKxW4V3DCTpBo2kORCvu 1Ikv4qvmEmZr2G9tESfrJKyC3DbmV3ril1kGKZaAzaIMBj+WBnuPHY2xEw+wG9qZsVhXKo2WgR4Y8K7K EGeCZVySGJ5DNBjEkyTS ML9VcMCIqLhHObjfkWqGgsqUyA6A2SnMzhSIBa+TWnofIrvhJ8chR6vTeTeP0YmMX99SE8oIYJ6v9WnW rD6gN1iFR22GEwttO2mo B3uVYKrEwoLBMI+OUqzVCP6oQqgx8BLdxL3SDU6uX1qFEXrxpWvhHNbFjLfzSH1wOlwbkI5PP5vGPeUR RX9gCKqrUrcTzxdNfAsC WA8UGT4FAVsZBInGX68JFq2OZOiYLofVKQhGER3JlJkz1CHncF2z1rabn2yUqCcFu6cSE2iI8RpMBubB DzqSU9sEwluOOFhe9ATo jS1d99xvMzfaoHBY8WulV1wEVGcJkQwUXcfsF7hjE5yKYVoAmRjVG9cO9qygT1woMovGr2fII0fGCI2H 0WoPaM8B7uvcY0EOaryl 3Rvcnk+YVvgsiGdFfDty5OvuVP6yM4hEdL6O1PuFezLYOK+TBsemKp6aWAjDMWzSaR0P5gjFOPzVWOmC T7gRZHmVo6+zzL5DYRHC yBJREFUeJztnXVgFEcXwN/K+tP3aBP1ZVYndtLMEb/cPAJgnSiqGZLvMdtxut3HYAamMOPrYInqN4rm/ FM9so3VqrjpYvBKnpC/u z96i66Pex5+kJmeXmTiQQQxXQyiYCPctOl6KNnMBxAvdMFuFVcVrIQIbJZhVMjsAZfoMVPYfhZZX7LRg BqwwsJgMKUGrLAwGEypg S7pAmD+U7KPvUd/lctLiKsD3lQUhoRLj5hDQW0vmo98UIeurSSWx/ffwY2cSM7BTlEn7oeFEf4j7ye8G MNwLIMQAiBIiqJomiTJx k0a/iDsVtPyNPfANTI6aFzQ66v8e+ksmKfMK4Q8GEd0KeFN0cAHxe6HSZWvMSKSyKnQwPzU5avKOkwuQ tr6ySYBIlbe5lMOJLsuD k4B48PJKl36B7UEbqkUmu7r56nyDvZpbuWN0tFEVFGXTg5UHxVaJGjQlVPHp+LEEumob7+Z+kELBS0jG WxSIcqPk1Um+xJkO0Zxp 7GVu1iy+8ef/WtU2QcToYUpygUTYADyIQXNJKHottl41/oLf/5BkMSEiRPH//FPoTPgE5rLMdwkvzv+9 bpXj+4quApuLs4f98P1U eJY17SFXATFfAsjKJx1qYmAOQs9xjE5yO56lr6PhlR8V2UOL/EvpKfm30//C04uRKmCjV2N8jyNtaWlr nnYSPPhh7xbsp50gfqOZ j926qS/v/9oTPpeikGJPJmqPUOlJS9Yrr1lIJm3rfDtjVglql9ltlKegD+/v7//pDMsod5oHY+48+jFq 8mbx9HYrxo2fZxeS+zet nvJnEaNm/sbkHrgPrFXaiaxJmqLKZRax2lHsH4TCsL9/EVPKn6I+s6Z35GBRxOpWnnWt5NGo4ktpmQ0A rZCYTAYDAYDQRAkSRIAH NpiEJs8TZdCPrkAXq4UY0cWR36vVTVa2gGMw/lozXYnQbupcT8TQbd8qMUkxhe+epgO4JaZEWjXFCGyA CrgTC4ARpRQTnPABjzeX 7CSaYm2y+3EMf9+fVuM5qpgq30xyPQmbk0Ui5Nb5BrOqgdQo5Pk93A/bpAuJt3cFXdmRTvnfZm7/5men t1FoEmr6oQt+1WrtvWCO 5erXpOkKYNWm/+NKvzLYX8vxz74/+Y2S9dKou6KQIT9OPibMgLqd18Su3C6tfVCNyNCnnh8+PlLPz40q rwgGouyUqEDGQHhVhq7N iq6dctCWBKs/b0tuPI0B4dsk0480fRCKwrGLAsCFc2cfou0au03sbSJjNrkIKOpHIMAS1BlD6kN4Prkv WdOnXocEUGLxEHNWrTuO 3ggq0AOlTbg4wG3cYCeQgv1bgFy5ZQ9h557msST2TnolUh5uAi33KT2to65s+Ck9EQbh/9+UxZ16xg91 s061o8Nu5JcwQAun7/ft h1/iJt1rX07oGedSCjYClqjNLeB+/f5jTw1vtkrq7dIzxEQCigitshAtCdT0inqfhJ2CShgnDTDDBy7r OStOnRZcejshRTNpXTd5 QzDH+GP+o4e6+zi7gVFGpwkhXjWwxU4aX3mCq8Dylj70tlQsxeLe3iD0Ec4jfPm9B1sHv5tkRjGmtBd2 K02jedXK2SSTAFGvvtdK FWu2ZuPbOZaU+7SxYsFicXHx/d1zQfb3OtaLAvxEz1wORt97tpR2tiEtkrFXqtMDqxx95JomdskIAXuR cytXF1GpPBvWYm963PHX Etei95R9UBnHlK2efZAn6i9r7Bb1yx8EflI+W+AFRYGIYS+GTmqnI+pg4kfxB2Llt+L4UoNHfKW5AQHk mgTaI4EIyO9zCyAw8+nt 8v4V1loyM3vp5VIdJSqLjov445lY+yWagqnSfHMgpO37LwrPs4dATdclEhL+a+We4tDAPXdEji0odoRw pCkSs671K8ZvQFnCEimo SBplv2ezV2Aam2zVRhVb1nXQSWMAnXFlVe5ZPTmElPLhWt714+HRz9+YAXXOv6hV4AS5hk0TmDtVUUy5 D4Q812KTsmH3W30I6CKE MQFCuKZRxW29OXXG49esdaQ5jfXpusFhQLvHkOua64czr0kvtlLsO28UgW3ZdsTfx9Dte3lDzMq0a5kp 6adHP3jECR78jcXb3jCG oa6HtqrrxHgDYZ/CEQTBTj02Hlbk98rb02TuHAJsM2rUDkF4ivuM/4gvV4/s77vRRGBZb2Ve8JnF+9Iq 1FH/4P84WBmNVEp1vdYG Sgen074h6/nj1i/LOLEMEnKbGocBWOAaHBt6NZzd3Nmt60MsY/R/MLBCgsDqSmpDMPUq1+qKKem1Iq19 qXzEslGmsBLYdo6m3qS+ /YovYrPita7y1n9KbYDtMozYmrFZu2FMVItTu0l9SC0/dhmz89uJ4+7ANBVTxJ3oKVueQABy2hHBat3k vHHUbLRgG4b1KT5UCYbI ZU29CVjMDcPaljYfXNTAGceVs44Ly4+/bEa5cBYmes3gtqjwHIdpv6hf10LzF5SNb5+5Gqq869FFfIff nbCZKFGI+C7TEZBMUEvE nGUkBhRNAyj3ICPs2rZHxp3i4i7dGq2mDzbLJRaeGFLvmi6yy18JsdvEd4ivm5pvcp0jWgeAFiuoDvjR mpIht4ehDF+vWCFhQGKo kiStHdwBACTHzFB/THbMwPA6or+lqHVO1bmux4XSizxzUrSdhAFETasQBrF7JTj3vYY7qXDizQxrxvL9 BAEIARAAAGERqPRaNSqP ZZwRyiAJJU0eeNkPFgHlNECmraWocNI2y0K5yv+2MiPBGw3kZRprcIq5KEmjTrqh1sJsGQdMfxAzL/wR JXPEpo7JuxeWlrLuQScu 1YlR32s+vSqo2bjOj3hRHzinJ5Rxp5h5zIyCgiUXDs9NqzqlAjScmxmkfBtYqYiCpQREPasykp3xle14 mlJ96nxRLDBW5Cwnz3Wk UqlD+4/nGgwWhcu8Ae2i04bNyjk3kvOJHTDkMEQkYmUDAVKkKKl/SX2pDk4rkSMGpisBNISm8lEHL6IZ WnpZ0+fKb2k3N0lr5Lgb uitd8CNas/reCdbuQRdt4dLYbutcCcby/AIKl/Bf+D4fMIkRQFsWYWW71u8L5BgtY78y/y5e+U5Io7tQ +vqT57koxWWPM0i0q174 EsZkaRUTXXIsezrXtOv0nsb9mi18SPzn5glFuuAWsO5cRTZ3odDHVHZrAWbgizTwFySF37+vhzLpqalx laemu7z5xX+/S/jXpbxK tOle/fxLg7nUThh9IygV3hKeggauHqYRJft5zl9VG8/WK4QR9iR8/LJNXuFbLATFPd0OBLU145mGWq32 uMwI7oEknvRdLuLetMRm nW/Uz36/O4wne27671/f/ZsyJmzi+sVZ524jzd55EmSNi4n4WjVxAvCsuvP5RenVyq/uhH5VHSVLD+io 8t6+vOv6qKqlEdhbtfF5 maap36W9ngu9K8++qzYB4cW8wH9OKEFKW7YeDX8km1TTsRCfZJVlFhU/rnMZzuoP8u+qs9TEUr86ISza iJfRgpcHZymTZuBEGIRQ rio3YuRGFxop8cyE4e5AcqbQh8bd/cr+/o96HRPFJd/ZnxKvEUw02/VJN2vK1V2kiNHTir353TSFbpCV 3dRXWKbAZMgN33JjVWlq M7dGfp3c+exeare0xhOs7iP1wCZ2r4FgyqPQW8BsjzpGVnQHpf7sQhzh3MdfjjT7+fqvwOUgpXUIfS5I jn31sHf6+4st5Rw6VRx3 gYFST8AX4pbxb0fVY2HKSPKOxTgIXMFewmRQkEaWMCiyOutCu0hjTkUnq61tgetEGeANBQRxYMdPiwTG E2TB/dpOZabi5SYi6bHu l0F3PbrEwa5Y45m7y1uJ/NlUCXIjpKdPtk8ECa70OmXguxJhUzz0wu1x3Zk6hqHmAjSMtvTbj8tUwf4m NJ7Da092ujPiu09pJrGi Uu6dSnjHebC/OVy/685ug40rLbllpqrLt7PodaXE2mm109HxEitJIW/W8VuKCAnsur6cb2otyGRB/62f azXd6zQ28pBn/0NRtbAw kdSQagY831iHAdOG2mLKzebj2S4S8ALJD0fOa0Ph6oC4Co8iaE162tYe2gNTSZdpx7wLDgIsfImdQ+UW ongLm0pDDu56hso+gxZ8 osN6m0yPkpuJ3c2BECNJVDr/jNkfUEHInTAs8k6k2fvxKtFg2cuFYMhs3I+1y5Nu9OYXA6Uyrfct1Qez Wxv4VxfAXOV+23B5YKIq DVnGujbBRJxMlpGGmtP6StJj1amBTS1rzYvPUFFLmRptR+OrQxaw9rDrzhHtqgjg+3XmxlWDYd8Opzw+ SwE3GzTn6iCmZBW/wsEZ RuoZ9jq8VT5xjiOqF5RNL5yKsSn2I//EYB5diFUVsbxftnzeKknv2SlNfzMGXLpTGCokPhZrBFWLYq6E aDirEhm99G1wD5CDyILv 0uXbd+3arVbBaP8vYtqigTuU7yBnVWD4RcKDcXlAkLGm4YDt6Qe5cnjjxpFXFxGY6Hs2CDuYDcQNqk4N 9JRG46Hxk8+B2cKmFI2B j7oH/vxqXUPW6rr595uBJq4yBjEfZmeGCRQKoAB2Sp8It7+LjT3VbbUv2HPjUNj62t2H0pv2yb41x8WW l5346JOXanip6XE5qwFc l+Dz4j2GdY32cJ+T3NdBPzRQLA4ThnkdkNuqyHwI+5CKLpvdRgGQLZuli5+Yki2ESMRJIf2RdR30r/3B S51lXnOYnoAqeS20RIAi wNi8mdvbwHHQPcFgd0E4nDKd20Lz5CCYvJiRkK9FQWsjB7nnYuE3Ptk4ZBxTiwxnA8b2iPnH+fny8Lti aS36vsJBsuVl0fdVLbsz BI7+3pd+5xTmIaxi97QXKhddcSUTz1FpGiCL1uOTDRda62iuRFdLo3CWQVUcGWRK/Nghp7WZapPPrQgS ty7fe/GvXENvvq3uz7Ld 0ZklE6SRKzwzJI/5OYDecTDVo50eLTcQuL4mCyeg+UloOMQqB5qtAE40riD6+ba0TVcbaBqdFmBGmH6q 0lCqyZHef4tn/b0QN+Nz mMZQiyR/FVeNkIu8WXegooQgZXvAlrO8Y9pno23eqBWeq8FmocQurh1HxXGobq6L6HLEx3Ll522Q/9Kj NG4f+8+doENIC8zWFgJQ itT387NtzNM01iqmyHabQSHzBdUIjo2k6jUNbEVL/fa36VEjyfVu59z7y7ykOKylNqmECHlLkQc8yGnF IeEYhEiaLEILZyvCLvuv CqMfirgLeUTyPPTjvmLihHKhfEbs5clQehk2Tutec5dU16qkJcz9gVV5mBeuCcMXt9t3IyVB7UFPxJaE dRYBu2ewVsZvIC0Aq6Wo XLJz2X6djS9n3qwrBpk8m/6Jzg3YtRp1RvVSVLEolXHVC7r+pPqYFivyirKxmiDBuVlnO5Fbqm9nESaL dpuMMaKQMUvENGGl0FRw PgM507wUPHrZ6OkK9riAB0JfUZ+FDISrZ9nIjdzcxpNTaVgGfeIKSPgb8degVoCHEnYjnPrgw2vOXDEQ 7C9Wa10G5SS/yz6q/E2a EfwaEA0XdtgQhqL6cW7oHzOgbMS92z6/5S1x1H6eaEZXPNffG2K6aJ+GdWTNDRzVZKeQCRhGTkyd9JUR keO12IVKbd65fBRqIqfN wNXOXaPkgY5cd1vuntK5Z4kkqsbHJCYSKEHxbY6Wz2EIbNXXT7JLBCKOViqAX7ZrJvGmmR6DTl9D0mn8 mFprsfUMPd5ADKAtNwFF QSWk5Ql5Hov3VeXdpuCsHJajcXmby8jFQsdIsru7n4yFwuONPec2Sw4RdELLY883GmPE50CXglIfv1Ok jcJczNS+fPyLONZcpWK+ frtuqIADGnVN3SfRRDXJhVkwWzqzwUJ10TGC4A2916AQ3o8XD/j62++rfeRKg2uEMhdqhOilyoXpDCND MiKqfAKJ3l40Juboy5oT cySFPsql7ZkqFi7J10GQbJSBzFELemtt7ZPqHzNMUDtF8izibazvuVI09iaL1pCGZ8hqgBhPPpkryJ6U /MHWdHvgTNf1NaTXk5Ts 6PRb54nKb21QnNakfFS+ed+Q5jG81v5t/A22YU5oF0Th8FIMF/PkTuWcas/Egt8t21P357yLO+izx4jh TXhLe0olprbuGBEEcspn NBnJe7cUY0rMmSsLkhyH3o42ic1fmoVEjMxFcfKSlkL4VynIZRh+FQgWlzSluMSKWaTf0VL0T8ov20VK VsxMijA63POYTxOrTkCQ R8NwGzEXP34d94KLFRnrtC00Lr4t5rd6Y3DMTDcrQWQ/gkU9YgzT3dYUXQreqoeIfCGqlp3TQT2MSQsD nBm1wXcJD45l+Pp+ROkV Z1jtTCOerFIt2MbOA6oDDG/HZ6MEo9Pc3DFnor1BNlDPnEaKFCf4psyyP/9nnfWq1BlRNTUqpok2b7po 53gpIdmGAquBHc300NR0 +Jk0XDAkqbiXFMq+ehTDLm5S2CK0+7b8kJl9OENmL4YUNU6dUVq7aDUx32yEu/UiOZ3WVJosKRSRMYp9 esRPks4HpvaKZPKXF7Uq Bernabe/Zq1rdl/JIFQbPRjtVpPUJZmr7//6vXMQf6SKmQb4h80S9HgVg8s2afCmgUFOqgg/vb80FJ9hjrmk O6TqHTZHx9OA624bzHwf 82OePdbK8P0mAM+K9qtrCoRSXT/DrBnfonybthmXx0GAjSgkVKdFrWqhG97p1mUrLyph3XCmbHgqFcpc 0Sre7Ne/9XwS5yRNWZMX UASCNA/MZpPTtUEm0QTfI0kmD7TTlbtfhNcynlHNqFWDvIgYQR0+Uug6Td14l46H34YaK7JcFa+cm7Kv JkgWv0wxo6kZ3i4rAKO6 zqMMFyxl337e+O4hiMmQ0y/Kobsb2eDvScsmx4zXPf1fPwBPM4wOSXAQFYAAsA8a1UxAFShh4YBv1cgS jDXN2UXcCdpKerqEB52H k93XpYE1x3BdpOpIa/3F3x8dwGjrZq3i3leJYOhI761tHt6AyZd87zUnyinaCgA38mTn7y/oYhEonbtg 4Fo8j1hz5w4GbUhCoorO WMdF9sfQD8St01EAejREoBj1WC420Y0b/YU1PZdO9bcmxpI5Cm/194VYOtLCa7Igok4rJ7S6nSDAsj9q p3/F1qLKQxafAHImoH0g ocnXitNtsGn5Xju0fa7dkumzHepcAwHC0pOSRXVmcU4pQtLyvse460s81czCPA7/tpMezMBFH3BNmSEG LZtz3NtswHq0W2OPcjez 8r18+UBKN690fYnbUrTNTRoQqAjlXXxSLe0vgE8795VBEvkN1gh5qXr7N9be1QlnAJjC9MGVMkHzKldm RnppEisTktiMlJGjxu/8 8/dPr6+CP91nCLIL2894sbspNxAmsN20+ss2YgaZMkgKvasf6maubUz9NF0R8UnaBBARR8vu5XhmBQMr N+k3LlshvkCypCL8111N Ce2fPTZ4fJjt1JNywkdy3UeRId86LZdyYBzyP96xDl57mUf1qcOSFfWE2ATCOPbnujHtGlv/njypZOMR k3L5N+Nn/K08AOnujxpd AWvxABHd6Yu0YxntqkAZVFtXD65/ZWO6ZZP0tXJLeNOa4yJRGE72Yld6L026XUeg3s5gZ9kiZTlGzAfJ Ne8ay+tWvVhEwwRksjlb 0XeJhhkmKlrB4j4ps17Bqk2chwtC2k8jDQwvaWPB7XSseM81KyqGxbHEoDKgY5nf0hHoCm9LCFsebL4w CLUdBMMeOToHfJB8Gyg2 M29v6bqijjKyvwxpKrc7Mhaj1Zq8nsJUMaBBwbADz6eYgAIQRXh4l0tss6KSDs+OGudsqgtV9VaFGPxZ 7EnWKK6hwQL30dT+z7pd cKKpboh3+ZKcCOrMqWosayaS02cU2j/oIstcnw6JPfV8uTv1ES4i2C48nbqaSTlU39AT9/CWsCUBrDCw kBiQgJBkpxYqtFpxBWr+ 2HWrKz5MMqu2dguxAeDqtYMjhP3QtNZPuFcO0nZr7oEH89rO5X61/sxjr//FDXJrdAlvjdOQgffg1uEX UDrY3NfmgCIwoYs+O7Fc 7djDLR0mWl+0/K1wkyxVW4lBmWoqHsezQO+TW3VOMYRexXdFflNvaisLCASs5RGyI8jSdXAZUYg1Mk2n I7pKvByKJRLRJbtVXEVg eGFQzCae2H2WHZZTXqCv+dn68omRraJLolnVdpz8lHYHyH5/PaIhTdl7fBEfcP5idGEx7W8Gn4RlYJ99 w6NZKQJxIZHRCRi8dqk4 QTHcazRaDQaGIM+4kvDqjDXMDfm0Lh5pRhw10yYaHZCGaCZDWBXN4Xlud8oZXxc2MN1VoJneySyTlEYa P1pAQIQQBpHQv8RajFBk gkYYTdP0ijRGeTAW2LD32ag7pbaGDTMaKgu2Au7Cdw+vavMtb7F9JS/ObMhpaxk1K5fQRJLHwU2QtOa8 t52/lPobGoPR8APeZeVG bXRGuMrZVZjMNieQfjGhvdkTxBWbLb2TeTwwFPF5Cikq9nyKFq6l4PGx2ID+KpEUWvfFdLUNJg5A+0hj aPUEwuhsjOiaRUxBj9EK OIBXEZWOAunoDaqjuN0pifaENUT1FAQSxOGpqVBvCeiimu9VlsAmhYrmwtqNSaEylRoGP5i5252h9smv JxzAqrrMhUkywBBACAAA oqznHHSBLfruAAfTNZaBcu4B+ugLEzXbz0MmlDgIB64V/cgnYaoXkfFckijfpc1/UZQcVfuIzjHR90gI hrfsV80+DZhvE4LAiQvL h1jNQ41D9wipceBrkWePaEsgg86J/oUAFboIfC6rSPPh0vEVxQqWHM/Tb5aqrh8oi2moLMkk6yBCokuM WAUuARGFrzEfTMr7TFn8 ANnur0REwsCD1OeORCwQ0u0SCi1ZSt0ofn8RuO5PWfjMYWvYzE6mUGpum7vajjt5Wny6njZVJayH+tHC ATGpxHqHAWIpcCyYNHGA JHTJCxdS0nlqbDtIDhDiJOrjOkIYGBsXBeucFb3K3sCnvAGarS8xcfqtsVKkkmh87jHb6tWrMQFUTMak WE8W2oQRxmdhSGMVbcc9 MoFAUyFUlvZopnb5k4FHXL7PWu5t1gIa4BgHkC66psD/QrDMelTJPU2dCQF2dyh8XzCbl7AHcRYkIuXV AAGPVGjrsTGjrkdqmscD LjbpjKhUE9FtNaUX8yKC2qMvOFnoE7rvb7e25bN6+/SosAq+uZwd4cBY29E/iMcOMvIeiOi5N1YtxFv8 SZakiY4/XtaEgEAcAIhH S8dpSHQXFN5MqS/S31g/r5qeHNIeLcBvk3c4Qsy5Ky6syQXjYaDDRmPzdWx1fVQJ7baqLQICP26KYAVI atKC3QZjVNjyla0/Rw7Z 7e8g3+rIhyQ0sxmUv34uuB5uZvCb5V4l4pRKQHummv1qQJpn43+FaPXAfu++RpDLJUvEOvMm4R03MuI+ aBDhb34TYU+0uK8dKtPi +U9e/VEAqEg+yI432o6w4rQGuKxjf0qAxCtXPR/H9orSy5elOEz27ZEmFQrm3AVxcJzFeeWsTDkZHZt1 MmouiSeVP1vfoMR5gzDL ezz8em9gEQlKb93ACGV3isQmFB+JnC74ekuf2Oh6PI4Jdo/9kFj0iwOpGyUBSll8euKPJFgKW/Vh8EtL XoJqPAxpx8rHlDpamms5 lSxKSKRMB7XCon8VbVAxKz01zz4d5y26OVNLgkzDalYVHcXtGfK2xt64+gev62GehA6zCXYInrmbfjQO uIcT/9pe/nxvz2cdD90w 89uBSsdMXCULPaRNqOk8fmFADDpHdcPKMyw+0OfcefXpNluKor93nLGN6U2IOeQKJOmf4Zd/cet9tAAG ZLVZGIyVxELV36lYP95+ KJ03koHhnrv7N7gZZljwmUtdP5nXcwhf2vPee2hFdeWpL0+43Rsu+dB71LUuiosvoe1Ode4/a9rMygGD lbVZvLTn67UOyYrh+Z+m U58UQuDDBUFMy7OKU1QSuKf+59UMdeZqc7DyFJITPCVJRx9BSJKDsqvCjSB2cOHFPMINeJ//uWcr94iB EjJosr1MH/UoKKTqxj8A A2tQP9pZ+t9lGQnka0VXepzjgkFRhMGyCOsq8DnbhloxOXB4RU1xE/uCxPikFCkqRykbBKsqtkQyWxAr eFB1ONYDCBAEIheSmh8/ Vl2UGrlw8C1blVVUsAYwkYsi1R/j9wa5eo9zk3GDuHsEZrdMMW0lm1WseOXIzUVbid0iTqTw/FSyBgAr LAwFkQ/frz0l1+uh18Hj oNFKkGWVXyzifQItbeORECsEdMPkTLtKt3QPXr6QhcrvgJPUUBPih3ITtZTwJEDZYICOdREcPF7Wkixz nlqhtSeHGObYxwBE8sH5 x0C6VFJwKv8sMNAHtDGkFISPDcI+Ts4Ehpvr79nS5/7ryP8V6FQB2JEvKiKUrk/MqQrOKIyozFbRX0sO DWCkRS8i5hhvByRml01m ovzOmcE4kfeiKFlVOHHxkhHmYOF4ZADzFfX2IHu0dy6koIxindKkBmj4CBgsouRORKBwshqDVcQf6ogm ef90sdK0Wv0+tPFlBqww iOOgENzTY6Am4mX4Og1HTjb9Ac9APn0SVeYuaFgo68W7sHlNPdIZA5e6nDS7PtoaWxKUSSkX+fJI26M/ mHixMmTEEJZWVnZCkVOT p2FDHJgzSLvhRB3pLsPOeWigYJobCxwk/++/FeDt3/y9/MYF0/QaYqIQAsAIdfdq+mYNkSq4LD30k9He wEcwBKh1nWdDWdHdsUhZ 8AITU64Wk/ulo4jpn7dUYb6gOPDBAiZKRFsZ7Hkl1poc1uubNv2Cdjc5iRc7CgZNaOwnSE8rHLJ3wCJB yJu3+HV4ljAHRYyhmYmQ YEHwSwsKliRRBJNpwNsBXR7wO8sDgf9ohd7q0t+Tvd71UAhY9FKroQA5z+BbsfvA1ypdnSdaPNspWSWR 6+rrRRodHTjJFLCYKCVC rWeC5Wt04Q3CUVCoz1+c5enxpUVdMWeFhk3yaOY2r+i1+t/XyF7jx7/VUAHPJeXUMxKBYxYAKjMrq7ZD IimkUDQqHHjeQsW+vrhL 1RmRm5lbDT/KRzt8Aq8+0sroQHPVb46ojJTZSjMSsbXMEtnTL/uvFpLm27N/V6bagH4h0m2/cHy3Exba x7G9wwJPQYlT500fa4jI VQLTwPE/TEzcJHPVPvJjIcLzFXOBKatPDAGTtHQGQvTeeZSIFROrpu2YCIRsSQFEXqeNQVKQiWPEYuRf wIQWZLNjyf3QQRFmBHNN ZsoCPFMUeECWQsZnoCFSRHZigx04M2/Y/3sZMfn9+xESoEJkDpgXkpVP6Jr74TzO5qyqqTko2XcKJxZf 2Mf0jq03ga1+/wOT4LPw XcdESLpsS3XMHVL4EX5xMvFQbmlsLRJUVLzx4iE+c/u3K66cgqb9xq4W5uWegonCO4GQVTQqz2KiUr7n k1pDZn2PdZbw771ibVGk kc9yGmzQn1dyod9kelrmJls3qOab4zP4+kJMk89dARe3kIbbYsieFb4zMyPSKE9j4u1oBd13LIGSi+vz n694a4Yu9yAUKJfWuBU7 mjzVd5o2yx2p1Vs3YeNG968tdc8L98IXPh5UEZxj5kgSOYNmx7LHaCkZv36atgIMAAjXgGEr3OfaMvyG LiE7BfbkBda+jslxvyHS BbYdYy79lXLflPa2zJov7kHTJzNWoFjzMkbngPpIh9EpOiSS30se0NadU/nPgjhYItB5H0ulGNGm7v6S BrYdDQLhbLt6UHhIl9IO O0vsxGlGdON7+4k20ne0+NJaquJMVtf2SszmxccBmGNVM0jSo304IkENcJ7+PV+jndxq1qsixqNCyLIb 3LT2pAFsr1g9gCR7o818 WHSK5KME/V6/ZGDh/zK+gxe9i5fhn1rZGj/y1qBcMZKq7ixsWQJ2E++6dS5c+Hyo7/7asWPYtGZpx2+e mDE7ZyXB5iuCOVWkMYV5 WgsX96/Q6eO/T9gLbJWwsjBv0TyzmSzRzsdSdfTw0SI0AUmfFSftpPitAkjGOjMfDaHEw+PHVOcWFOmT eO/aJ+bm/vj+AnmbXnMf 0YO3ZQeKk2qp/8gfjxl1o35pAsg71B24UTX63TH0HcxZx4egSU/Ln/z+g2/3X/hKCqPUscI3x0ytN8i8 9txcXG/r/mdI8RZ62/Salguero 7j2Ct16QtOL7kzNl0F1VjBib5ne6KFVeHMSoUm/e/XyYnXe4ib4Te8nXc1jDlEzuZfLLvO5fNTNcJVPN XEJcUukb7ohNn66dS9dY po4mUbUUIf4muYO2iIByBFDe3l6/JrTQBXMU25m8uVmdSprPlWKd1c0C+ApSfzHiKx1blMZd7UFGu0bx HSy+iOTwILLmMtLTX7r8 rfsjiFoj9VgA1Mq3sYtiLefv1jmAuRUHxYSND0OOiEDl1xk1xFMRFOSuZSn40UEReFRPF9+oTt89Bo6Q ZHyGDy8mai4kZsaTfoqY z6+NSjaZ9DSFL066eGXL6AaXqtmPiA8kWnSns935+9j8eJCjbgSan3c/yzU974XJorDSkvN8Jx1IVycY 0VZUQ5qg3DkVLwjrfy4s Q0Rxmrv2JPX35BBd109uBXYin3SslnKvsr+9Y0lBt4Cc5/f/gJ64uGUJcc6uKzBLNpOyjv73NREexKbj UbTtGkzqcxSIXIcd/5ci Wcfwfn7GATplzz+vc1958XyDZ+NWhMeHvbg/l2nPcmZeORHl4c5oz2j+Idjp8MtPVQ4plmNXLjuKoDzm AcmDRiAmWWR8coCIqCjv vgYhzIUTf2l4qiEdoKKtgz7xsUJxgo2pqsNNQ5wQHeK9Rf7Ph9pRdf3o/bhWjqcOB8HzYQj8+fbrHnz8 vGlqRK3RQBIPMpiZRXhN H0DzdZQbGOxCNJa71JIiOPlW5didAZVm/f7yrTWMw1EVwt7vfPOt9lxuDBIiMjaqHKHVsIc9yo0w1zrx Bb1XjMl0iOt8fhm2wvaS D+rl7KOGOXtHZBXQNrm6ep4WgBkre1CAh1MqGRjsdt/jYHq3GxA8oAp3bh+iz7JPl93Y6XxHZUdvGE06 6eiuwFV4z0c+o1s7QDnx uoCM4eqOkPpRDohd1U/chcXu029/4aVWO2iwe4eX1zbDMCWGW3y+2hVAHqIvMDOPJeQg0wcRhcf4+PrO 2TcOMTLv2B/5gMUeKn6q pYnPVogn48umx46yBjpeNlWnDgZwiwBvdvFp77xDIYm01eFU/7Ytr1v/359+v3DYWdqpLKDE9jUcFWDB sTbJ2Nui4oDumn7+4aDB n2Hh7KjN9eBZJfE4MEZDiTk5xETmWlAcghnmfz6fZLGnMdRxEA+/Q4sdqdm1zAF8DBrJFxFwq93VngHF qZJjm22r5ckBZGsHd/eu HXgdIpcouGpollEorljooG5v0br9FAtw64/sVhcUFE/lJDMIgkYOy07VoUU3v1+qQ7fmWL7J6bCyDGAM Re3pQQmBmfjJqJXOZQTv fDw9feKyRYG1GWc0+p1a/VTUIzy6Za8ss1+BvVGBe7goTm/0xy3Fd4zDwtfaXEPuqgRPfyUiibX8Im8i h7FK9tcUegzSk64YDehB JFdEFTn5quXR0FDnsCo0ksBtp0fV22BClyTgLAV9nQa9x1jMTb5vRRFexNdHD2kEwa/f/lpCH45LxCHi e84JZmj8jYD5js42+aNm +yd9Pk66rOqXDusWSd/Oc4clDxpG38f6YUi9CSlxyurZlX0rd4+WRDqoJlSRN6bPAz00jwu8YNpbJqg9 T63r07sotl5u82LQDyLM qna2GXh34klOa9lbrc9V/XNN/C+B0sKe278p5cvnHqgK1iHw5UTfG7FAbAYHf26b1LH9cR1qa9w+/v6+ uq4Yp4LMYCnFp9lZk9Uy mqYph56scGyuupQW+ms22ga2QNgMpl5XWJodTyElRIwGxbox6t33EnDi0Zxxpa7Z9/Pjr4NQMpBY71fx htU+3XFO1Wgiqm1Xl5l6 XlXqLBO00XKj7aDWgG9tOulY00Yon9xJ5cfZ/f4+/pt37rN/OCjhw/2wn318k6aQREO1QAs3Olk3/j7+ u3Y/kf+0N07d/r7+jVt2 WpBeHe8B1OnYzxTr//y5Uvzg+MDnAL04SjIXNHjQaithjnrh+1w427kjYw5oioa5lV0KXiIaZ/b1nSHT B902GNI0Vitola8xTGNR xZSCyrh5mIkU0E13fsWrFj59pDu91oXlQSxp/utv6/f/8o5Im77llBSGT7vxS62MfM5koRnt2sMEEIjA /XiAXzjq3X8j/Zsf1+/7 h01wHy1ztSQxROp2Qcj6/KZnBadOcViTAPvYPPkLnc0oR/Cu8t4HHmWkYB67AxCdGsQg5oztg/vvsLT2 gvuynuWWwUEqWm53eV1a TN++snf12/TRk0KIK+2dStf+C184mZy8TKouraH82+OgQu57s+cSpnSAsc39zSsbkUfjlmD3Ou9kxKDL Buu9uh0anFWOI2qc14wA kD3nRh1bqVX6Vk80HIoeYOprkVvKiZQ10XU8iliySrPuXvCLVLK7ofkJ/i2kgU+Yq5m6n3VaMdOjpN5V iyHNdEFVy4c6++v02otj qHZg9QlRrUn01d241VFKDUs61HQ4IKW6sjfha7GZwxEpVcT610IY6aS5NeP/QcO/Ko450VAczZAE/Hww UJHBZWn6pXSo3Mrl8qb7 YwhMKcloaMPSVUOKcsntOqZDC2Nh8KLV3piF/4H9x+wKvMRpKamxr+JN+36+TKsGPfb3o4fu0Ir+S8Hj 3nyM78hRZ6Nr7lKxqKhN tkBb42uJkql0qmzzJo4mdBYm0tTtqf0/lgnw18vb16aw/ofVTswAikY5qY5xLiCim58cTBjBZG3BlLzw 6SOzJm96lurnj3KQfLwK nkwsclsmDuDCNFF9mmcOFOPmBd/LUkYaLFWNFaz1zJcHCw5n8luXQ9/znUXSt4ve1bo1L9lBa5QM0/Pu QBfF19xdmLJCk3LIzps3 fwCc+fN9/S7wp6ELWdqJT6bl/Mc4t87VisQYc89QByL3Cx2pyE+Ih8z+blbj+4eksh32TXC/t2q6Styc 23bu/gpHCeIcMXH8g9Ls Cr4s+Z5SmXf/v2+qbrBYY4oRmwz/av0RyLj4RkHqdkB5Wz3I1zF9ms5+iKInPnN3M2JyZdeogTeU9lZu aiIXgVLLpLzdSCf9zfXW qzg2qj8bnfWSkxXXInrzkRaW79yhz7yGGhONFqqaJWmPQhSmPRs2Kfk787VcuMe2916h4uYd3RMWs8rG FbnsZDz59fxwNi3X6pX3 w+DBNQMrFe/vtUsbt+25wLJeueROukaHWTaDESSXmRhUV1atcqeOG7+WVRtJiBJj97qtyakIUAIRGxCa kG3PeiJqsXhDbksbqD61 vrtT6z8/1oPhuHkdGkRf1+PBd4+Mz4ha81TZ2u5eblWWMESIAMJ7EZDF2WOWO0+nYFDbfa7y1/8PHOWV QGSJIUiEQCIxWKhUFhQO vlZOG9+USYhFqEWr53tLKUH13tOBvzFaIw/z37x/EV+dDtWzQ0sbzMB+w9eGLms9CquGH868ocHbx6lV pIkJ0+whpg65hmcMUZ70 18owZZOxpAOJ8cvE7OcUU2qYCEpmMU69yR803V4f9+/evWqX//+Z2GbHLot6r6xgJfeUcuWb6zGwxyK4 /fN8mW/ru5GwCFhPAAZ0 SRl/TXX9oiXzwp/OsDqPSGeUH6yfnCMxJVCtV5baDdGwZMF/ucwIb8ncEi6WXO7dXzM/55pOCybAASW3 mEFMVQ2v7/MwiBQ9gt2O N9+flJUcIcO+B2PVvFmNMk9bXOt0xnJQ/eaFb1kG90e3vTpYrfgBpowAmp5/Z/MqIQjW4Az77VY1t5rS Pn69wNBhxtlgtLcRSU+0 RCSJ5VSMWyjq1V9Ti+BTpbp6Edo7JlsPKTuVg/9/eaXjLjOIFlxD5B5Z6RFh8a5jUHjyaQxqyyoM0yAv WmkVGw5z8ymxt0DZLRuo Xpbi/WKOhLo3riZTlGiRrij5+OQ12JzSqX+8D02k0jTOFUaeADxDanXUba3P76Z7Qp516fhey+6Z/du3 qjM1L6wMpkOi72Cinvo2 8Ot2QpPnqXYGG+/aiH12Aqm7QlP036NLMbzdpVrz8y700/hT/NI0pWf7+rVr//VwtLMPw3eNNRcFdx5o S6CnKefBIVBlNmOrb52i t3vtVyZIm2h3JR7vTN8+rd1/UxJkdBfM872xINpYvceo87VIELqofWNVhxxOWwuFyyNDXwEM/z06Jfzc Pyn34oCMmeIgeSd1TBTQ /lt/jMCYGAdRXY7Oa2/zr4b+PunyMzMTExIrN+ikO2KF50yb/mh2YV3Tk+FidNxEDBIO8As/mpRCgQCq tD7J0+U50f4d05q+Ob1m 0k//WYBJ8qTLitq8fgU1k37F//mDQD4+vn6+EO2HMYjrdc22t/PGRkZ/UcXHRWW2b6b+SjSFtx4fTR/w sEDb++iloSTOKTYnZm1F q+JdgQjZCbJBC5OE7tJ6Cv2InOBKnCSv7J3mvk1UgTe3Dzbu0nitFOw5z4iKx3nijdyPMm5WtwOZkrx8 QiowffIAODB/whCCp3tz 1RBSf2koLI8zUlFJxmE/f7gH+6FZYmZfAfCUUXU0qztO3EF9sLObElBNj9pr1kp5s/hK9i9GQLV1I5ay OkYaJ50todF0Kh/bldAh gNEYYUpLNxOz6L7emt8v7KzT9fbiT4dfozbyG6U1BY82GvMCBoYGtgc/Pj4+mL65TgT4Bj7t0M/z7kzZ qVMCpkWUJasEXLf9anAW TYBPgRnZxfzVpUyV/cvJeBstegxWl7HRb5VIEOZTYiGKblmLj5HetO+/OOxduedXkLRs6nr4JrlitqMr Vl4GNNm90R3UmRurrn9+ rme8c591IHQB3Kswy8fuI8WBAi2Q76cp4KhptiljoDKgVrUh9+/YhOqFGplafs5UwIOL1MzWi/erXt3A KmCzYOwA7t2gcw7iP5wb ZTxgU1epH/SmAK4LaQlb1zFkKt97Olq4qJqphPCYkLFRWNgfY+ANmDmDwX15hEVG4HV44rnP7uoFYMMb 1Nvu10oEC7VrRLU4NgDU ndq3+GHceMNRoPVDoWJ+n8nsKy2uQBZw/Us8Gfbu3yz0LN3ke38wsAM6jv4jquHob1pKuExyN0uDhUcX d9u/7aNXH45lw0ep5rbK lc1nhs91EXyyz8+grE7RSz5EQwItZ8yMrxBIZAhH3fSnNyuM89BEHXhZk7tT77oYNrnmgWAVnjJaEQGy SmxIJcPt48ZrcyXebhiN 9Ko31SJGCfBZg98O3leX71dOfqM2DIJOLRP21mlSHwDsSpYkJlEbsYELDiphZNn/Bvyau13XBgtj2Uy5 AAePlHm6jAreZtZvC6hD uvrli18/a30FH6MCXdJE+M4bv/idMIMSyiZLeMPdj6xq6zZPTTDsTaRD7M5JSr1/9dn+MiRABD/5s3EC RM+qGNSoWLFPn3/9/3YM p6yT5tFmpEgYa+Zmw1WtRxkWue7a4pbvfjmoT3sh0k+v0GYesHpy6kZQYuzgrQjI0JhZcJT8f7tZKDz9 UvOkGcIMOc62NnqgiSxD FwgEJib+L734GSfNhhbd6bh9z0/+hREkt7Uy38ga02aTKe0g5seKNWE/1cg+GArG9+pI8ZhWJV/ruM/d EERAtNbnCjqLnqvJPBeA SFoj06wxbC6v+oQz10HtaDa5DHk9bDhiXZzIv5jHHtXnpAN/tVOGyBB7Rkwi2yBh92oUkW3UMhg6FuYs u021JU4GmStXilb8yy78 QwM96OiPjwLOd4jEYB89VlR8q6NLJdcVfQAxdYgdx16biDjvhowODzeTZ6PJ+uq1FF7S/cvkgRdE93fI eetq/2kOSkHIT9lCYo1t zu+71YYiLO2OvDp1ayqlR5PzRhbPCQjs5li/GrA1SxROQwPE8dheTBAhp6wXnPkBQ0ee/L4ib+ffi8zz 96nT5/mZH9Av/7Q33trS yIIs3ulYaNUZRKEtHzAYt0eD8gCuJHLhZIDFzx1APm8vPPblnrNpIpt/Ze6FI3qAwKdiA7TcQcxnjNAk GwctwIlYtooOljT6IioG pHzRBWXei3catpclq+wjVORvXYeVkFwXYQcu49/qujDviYNM74wdTmzyxRKj/+yaNGzZ8/tUn7eOgraX x25awzxkDPIigTn+Ftru tki5n9Ki/v27F26+JfuPXuYDzN/BB/3KbC2cl816355zu04pyjtko/bIkVE4WwJp3Wrtdem8JYzUwEW5 Tt3/isnO0EJNZPEEzRQt zfNOZyJCDkfawEWiT6fes8dk9+PEGT4U0c/3FHg2rZr8D7BhzvYqPylDbog2hzynCGcrv9J+xfkffYRK WIUuYcROXn29qFd9+3t7 m1pEouOZ2bPfjzlO63vSrCWTnTAskCDhXevkq/Oyc6+brTh2gZvnc675iDdTwjbIFLoHe3dLar5MFHvE hOPbx4SUCjVUkTQ56wtW OdtgM7LcZfulip5ucftXs74fWhmKc85GfDanKrapnoydifhekcsDWZOlEBhMQhbQfOHZBirivRgTZ9tt 48swnJh39UGmnVC1dTlx Tfs18NUtr8fviVw09xe6/Iou7duo9gtpPr3OSQdAFcj/MaP8RIgRM7K2g2u1w951PSJTReo9+fPBw8Z+ dAK64d4mvLrLV8JimOWA TXS4DF3GBIEukoFGJY0BAP24kjpv6be+8q2amC4DO77z6yyMaNOa9wSRsZ4r7QbWzaSof22m7/lJoqmp t5dsm7nWZxbzOgmEODR1 1IdBxaac2Kt0WC+yE2dH7sA/5kDnuNyvCDEvpL4BfzQMXhL8g+3Xz/e+dR6PvfMfMf/F8wkiu8b1Mehb 6hZ552myXftcKYPmqNk0 TeZZTG52Wkt/1Ub/o826Ge3P4VCsCk8h+NFBApxdmM95ezjCFVtTBZPrhvv69857FfA9aC+dg441rSJe Goy0CoAblI8wZrt/+2F7 tSlS+IXDQWeSUt37Cid7zz0y0asvP+vf3mFxanSqmunOx4VyliIsnET9Jy94jA9xLEr4q908if6/G5gz Zp9+/CpefX73X7vcpD+2 OlvlIt6JXPV4Ty/fXTRc7ckxv0oamWRZNXgOtD1EvYkJTTv5jpn7n55s2s/AkBiYuLkH3/B9TFH6voLi Hb7K7BoSJOz5tJWNKqFg kk//Zhy3Tyww4tDbQ6a09/n0qlBVYIt1j993PMmsKqfCE7+lUN3rKBGY6z4RIBBFFLdQHb5QO2HH8418 ebEz7Vn+OSnGTLu1Rt+d /UftwPFnEvkIkeufx2F4o8I5+/b+/vs5fgy66cpuweRVJdS+pkvOsPF4Mm0dkGvE9Denuf+kgMC1fmPi Xmstfbg/IUL+Tnwf+7ev XXzZonESg/F18+WzzKzd9hJN9QksNFxFoxhUOTaOHfdFM5/tdqAeyhZUGHr4UXgj8SOvXiN7EHqJZQGG mpM69Ig+XjHT1Bs61opG qfkNFNX8Uhsg28GRHSQ/4Sxp0mVgp7vZFNb6X98efSDctsh+TjJfjbr3xDJo7DZint0YvEhnViI85/gg ToXCKJsGef5ceGL5GnW8 bQFWTq+VeSpT9koSWHOfWxyhSLU4ggCwbnOw7XenuDrrnINWvYYAUssdE/VqCy8KkE6Bu+cPmPRArexs I24e21p7hbAv2kM9ytq5 Fbf6dXjv+WEuaOpUo5mBfsbnyEHauU9zMEO8DUxP0uLUVa1caIy0ItFirYLLPghd7DImBuEbAYiLDmpZ cIf2Rdp2uvV3eZspLU7k 6SN877Z6HM4smHCmz3/AICnp+aynpuG98RUlAxT/jeRNPQj9fm0o/b8H151nbUT+8XjsYo4C/2GgUgA3 uldRVJmDUIhctRbmut9x 96aBuHHau036uVSg9FG7yvSgyGHbk4KUDBiEvki/G5zCjrL8yuXdzZSxv/gUuI44kZB7I3wrcNfTrguT DoCg0Au2HNsYdUR3SmXx J07Rk747y1x124b7W5w9tAdS9HoO2S3nsovLqhhjNKwfGOAaSR98AvtDgzk6u33B4a6ABCnIc0CIJuN4 auah6W3zax7BHGP320ig 7ZnBnTpZCvCxKByGTPsFgBl4q2cxvZPTsUZDv7QCREhow4Yuj/jhOf5KNXqIse+fetW/vp7Zlpy0HZH9 q6p0vaTCeOAHp2LSqnwZ jtAwtUJLowsmxnCGmXi9z4nwlbuoCayWXh7AYi/kK9jL9h+HG2KhfuGrfQEmjA8OltA7fIeUWVxZa56J sjEdY2cjm8gzedSFh2LM OdUqw55hQuEAvcxxh890/rhOOJXw9zGBjmb53VcKiEeJqiq4eKwzpIGNx2x1m16VNNzdTiPHCeHo02J0 ZZd4mEhek6upa1NlN07H q9d6+olya+OCd70cutAoj1pv7W4jWGjvYnIZbjUxOC0g/bhlKZUh59LiTe29aG8t3M6+kZBf0zbzz7lrqi BV+EY0gi7tc3CtDgU9Vo j8yIy735Qoo2vgnnXqvbj189mqkqt6nz+gtSExM/H9z60fN06ROe/gR8/bFLLHcucCDcTzn9LoiF8kdv /CoUWvWrlkjFosDAgNMf qaB5Y0oGUTgWcPIyHylG25gqWFrnb1xkDOa5Ag8Bk23ff/66sTPJ50RsTIVXLtF48jw/325h2IHNm5bt 1mdu4sucJZc/uVLl5k+X BUTbCYx64+ELCFJhb49F1JGXzT8VBlj1+4kFMcdxWo1JPMsdtlGVoQP2Zb6Th1kf1l59TZg4/9ISUlRK hAUb2alAzUOqKZHDK1xJ gvd2AXENZm5lCCF5/Bdf0ZfKo1RwZh0Z/v5s+y2BFe9Q+k5C3iBcRp2u0lGYvBSxGwlcU8/f/h06zLDj 3xr2yxG4iAWhcpJUXNnT gLnDxUYkttY4172d+6cOVqNtk/vyfSe4C5u0HjhfWzvIVU+NSLvyvmTfraSflolv7CfTUEM2btOqNgMD L12RU8I+cyXOxyaRf7Nl z7+TbxAKKBIUqVSRT9+dTQmvfJWwp3AcVGzZChn0r6n/OkebMAZt8isyq+7ju/BZKXxS89FdRBNILpM2 i79Iy6arsimllFoLOJ2N Qo4ReQltlLkqClzAZQmh6N/6e1y84QAZqXeXfQR2apX32+oi2ol2iw81Hqa9IWAwQyehJGAux0jCowzB dascWd1uGTBSVZBIkvLA R1ZzsFgs4zlJ2ZsvF6cUgdcrWso81ewpzk87UsByHkQ5s+JPFOAdLeqeJ7xL+TgWyxIkRUNotlJzY00B xVwrAZwkeF4gUhDc5zm1 icoEmm5TlRPCPyOrIycng6KbdEqd+mtSS4WH9zp6MUqRT0eTQPLmx0BfkRaNYRWIVY37ne8317ccblGJ bv/6I3ei62pI/j5+eWPm 5ube/NHoE0iX/S9UhBo3+bCd5YoiKJ886+fP3/42H9h14m6rAa7AlQLsE904/ESi7t3a7s7Yc1MpkD6k nrl2OfTX8uTrcKw5ed4m DDHHk3d/xFVi4rFTAiDY+KDEdDgBmOtSOvu4nVB+/roLoFPBMETZi952ebOO1vXFeLx6C2+rzJ1Z9F2r VJwkjEvmw150rfha0u+3 R8lY34p2aUOQQANdxLNKgWiSm7rj/lteFlXHXbYBgqYP4qQO8SVMX2iAe3cgSESyFyXQu+/Il5gYeAqz Gvt9qKpl2ZcjDEvb3kyg ql7SYivQFsLRiSteH4htdfm/+t757hjpl9la6/IQi5RDDSW8d0ouCJADl6nrcjdQLDQZ/cNed4kFMq2V JxADO3XnYLRcQ/+/axOW 1825UNq6zqEPm+8QP3m7b43o+/W57cj0Azzc6gcIKFziekkA9YPP6+u+TCMpLnNW0Aadcbqp7g1OAuNy UaUtFotyzIkSfKViRASi 7W5AExO0K46Ezz97MZ1u7ftJrZ28IA0h+3irHdNEIIhUTJDBpn4Cz9LLrLIhhSjhI//7rEay0LJdRYUR VUl5n1wnuTuP2AO8Rq22 6w943DwLW2A92gZpwAsWZ4SHUZ2UUj9m55toafHSNd0/2cRp5jo0LA4biu5pOYtpkuFRmMaE8+eOSsSi rQ7cijReedvd2owXJSI/ 4ED/6mPjLAs++D+m9rRt6Z7odZFdVeGDXCNKPB1EXwdHVZ39mEr58PNGgRZVukh3c8Q4ayxhqbao6Jxl 9El11ZjU6zUkrZwvJlqO c8LDNDeX91cJbt92nAUJSHycBfddUl1DfOk9tv/9zTe5SVHn6M9ftBh5KrA76HAFPskoQxoKDtzXUkN7 2uXSYTNYN1/7MIQv6Co2 +Fwo3cDTazcAj/Nhk5ecFBUWb6yyokLgNzp5afwmo1VlYtY9+xnF8dtyBxAcEfsepQ9+aaNu5DwpSigY Qg25yPMf+4jAdrLMmCK4 oqBc6NtLgTpnpa198LBTzi/FNNRGFovzEAN6OA9RWmBp3CugPuAtzg0zKra+cJgMJh/A//Y+IdWw3G1l rDCwmAwpQassDAYTKkBK gxIEnRgoHuCv0SKZwNRffBrsJkwtBYEMMqSPnhBAsNwmBeGm3GBLjTQoxQqbSsvxITSMCaKThmPKnEws HjZi5XBHxIAvtLnrWgoq CZXZJfXFzkQHwWeeGwRy8SFHiDJywRsnBgorUIZAHmSHyqFJrQyvXhUi1CWPuDE+mg7yZkUwSJvNb/++ ZKkhkyq8j9bJlj7j12y7 +joKBKJ+syeorZYzf9tPa/d1e92bSXA7ti9W9hXpkQnNgQ4Mzd45qc0kiq002lz3u8iWd5ULPXk300Qc sHIAeNfLwTj5QHB1382j tedy5KOXU6ry5/V1ARr2qkbTfuWm90MR6+6byGoLVgWJLmGvsxg1v4sEeNhyaq/HFeb23Mlwds+qR4+f Pj/zOjSpcuuXbs+ab5Dh l9eGWJIzFl/1x199ght//1ctM8CDFUBTALEFDxiC6vmzhYjDW4QkXrPMP4pTnSFC9LI9oDjC9MGv4560 m/+dS0dgbKEz242Ylmv1 uICAE+ePCkk/pNonyPCus0vBGwUuCMDgUn8rZoXIqTgJR1tQg6FFQTJ5jPFk2sSzt7OB8zFyGnOmpCTz 7kQIAb043Gkf1T3/ZkzV TjQ2f4Hs8PHYMZkdj2/6GhGi51d+WD6D1PR/pbIORl3LBOZ8OEjFkxv+cQkjXHB5kqdNEAGdHXcrkX34 bNnBSW+NcEPSKa26zL2g kw0277rH3UdIK8sDn8xgycCKsMgdRBJW81pTzxWxcqr48yOf2l+4dPFpaekBosFek96+jaa51QMdajsR ufQBs8aLHLJ7Axm8Gt5A UytVv/41202O5U//v179+4fZLCqFuu220uKtGhE82euPob2wfByrQp9+G3r6ff7vgkMgQO/rIaFhTVt2 kH42kKDJghA08YWGr+7b r03QtNjkIJcX46TBMtVZOoPonj1sW/k9AOYLWAh7lSJHutaI4wYbUphhtSHoBzKi6k0nClqBw5Nmi0Ne k5r4kkHJAIYu5djQxB39 7/z2/lMgUpp30j33us/FtuyZ6d119LGPqb/TNaj5yh0Q/Pbz58/HjA3thzoJL4mvAdEbONtbCopmRNPh hH95UpeNgmeoXh6icBKU bsz3MRlHNmiAZwSTOmCvEVMHYuWZYrzaivJYz7dPXYsm8ORaMus/MrokINhNCAYzGuWmmSf3bq5ywYUE ORXWFlZWQAwc+bMpKSkw uBWHJhmYzKD4VSB13JcC6hfE8Dd0ZysFD96LLQ8Uf35yXg91mCCyxAwz7bs8cuICGbYVHCXuhd+88H3h bn7w8ifHQNy5DsjJtNcI nDgwPztjuHDh/LdKMvXDLQb0ycI2QrXpqRLl4wPqMVNCZs5acYiDFWQVK1ihwZaXDkPgK25Zu7t/Mbs2 rBnY4uYXlMWX113ssIyd ampvNJB7/mDQwIxNowC7Mj0MlkcyFq3oUse5mBlhZcFtn8vXNh7+/umV2EfBmOe6QamtKClEUTRCJnrL o1Lab5Kg6JZ30NOphSep CKx298xkmBaEJSU4JJ3BXTSx3OnrtOe6x+vp6zd4l2yRwKVqHxLsrUgnf//eusnKUsWQUTjOl3SnGg6z u3OnTt/++37ZUrKWrsZ1 iTFD4AHDfOKNizMR187n94Qf3TuINrmoArms0x4BnJnaB6/v/gS0iK373bK7E+X0yJNx7Vclc32700PQ n6f3PbliS5CMRIGGn8NB UlKUFl+dzklZeQQYZxPAalfZyUft8pTKN2U6LLag2LBuJgKhYOOQ5iJ6+BJy29o8a99dhVwmvdv08796 vYFpQAAc+bMsThYUAtLI hJSGOdtSf88+ZshgrsTpoKqFpZQqxHhFm4YWDp3lpsilhHoMjFxGA3ltbbCM4kmG9pyjxsQVC7ioxA7U Dcs5Qls+YtUoUKF/FY53 DOjPGMA23LhZbGVT5mDpO6d0KFjJ0Cqp6f76LbPEyFv4TroRjODkOvDlP/o6Q4ZNvpLpUrVAi5x5ii/+ uqrnJycQhJ5+fJlMbNDC SmuSAOjogWRPm38Zm0opnEt9M2YrHHr8nqGiAexKmaut6+LWlBR5jt0+vqacjRhNYUaNWoAAG8+K4SyZ eqLsAPMTzEsf6OmzjNUf Pfl2WRvNJRf7iu954DuD+6qwSGIi851RMjPB/1l7lFbW3390323z+/iJBj9HTFLgaLhep8QRYTUEFZsh usPXGVPcm3udYplDk901 jvsgUl3FI7dMp7nLag3TgtaXqLLdD905XvgyHfmdTebZ42vLD7WOxPaBKLct424n9EdncCHDxQl453/+ +23cePGNWzYEAAuXbpkI V0k4zfVRhkdC19SD0PtTWHr2Nr2e+x2kr6u6sbZf2BhRy77WsMg+sJp6O3H5wtTVNy5CSU7kmZZ7+Xt5 QsvXzDDcNj2YvAFHiJBX o13nfQvMkvl1INxRwo4jmf7GgL57P/5kqnrUREcjXrd0qqkqJGN4btuCGwNE50gQZkkDEQ7N2X4AELwJ OVpgdC4KUwnuG/SokuIE Mitzt2Z6bZAd4lZIDmu+s9H4W+QuIInRiDWZb7pgsSQtlh9Gc5p0dOd5qq+emUqh3YXKGJMdn6s1e3e5 Xtb7ql56kSpnxV/ERQUZ XfzkTnPM7y7d5m+49atW/nJXOf8xCbBk7XRdyhkAjAEYbABLrY1xUiY19/Pha9Bgdhe0Z9NtoaoKxM9f 9bM/Teakz0WrB51v+ePW RYOs2rbaLta1lcDkMXX7Rk3ocTs284IiRiHD2j7kGHiRi3MSmCi5hO91qtOUaq3pn5oIpK8yag2ufXQN UFBv/zjs0f122+/FYlEP j4+rd4C6mtY19uwL8+syc/z58+vXLlichMHgJ9++kuj1pt7hbb+/z6u283zlAm1XxkUxts7+/dnWdZoN O9rOVgQnNzwe7H7Fh3wq Sd5jqcopcIwKb8z9biImIZBN1bk7Ib1tKL/sZAAbW868p2+/dWbswAcTqinBp1nbmTkrqMVBs6w0t79j dLEVZ4SNjGLoHjhSLitj fTdBbhoUEVDYjNHcXc2N61eytJGmzEhtUZd1ez//vrr/EYkiX0LeyKm2kqB2KuzOkXTXiAhegxtwDSi3 smaVcMNEaerRWSP7JfSD P4ZjIDwA56tma5xGTUFwh48NLQLYk2wi23drHdUtOlhR+pZaAxFBf36iPCl0M/LbjAkLpn1KbBWdXlYU ktJsINwcRhHt2ZMCuJYc zLpzTtdmEESNZfXJooFDuAgbMnGm9VOFsEPvdKnlGw/A55RS/v3i9WGFWCEQWoHVhNtVzRA></span> </div><div>
</div><div style=text-align:center><strong>GYNECOLOGIC ONCOLOGY CONSULT</strong>

</div><div><div><strong>Patient Name: </strong><span class=clinicalNoteMacroHighlighted id="[id number] macroname=PatientName spantype=macro title=#PatientName>ALYSSA PULIDO</span> <strong>Patient :</strong> <span class=clinicalNoteMacroHighlighted id=[id number] macroname=PatientDateOfBirth spantype=macro title=#PatientDateOfBirth>1950</span>
</div><strong>Patient MRN</strong>: <span class=clinicalNoteMacroHighlighted id=[id number] macroname=PatientMRN spantype=macro title=#PatientMRN>[id number]</span>
<strong>Referring Physician: </strong><span class=clinicalNoteMacroHighlighted id=[id number] macroname=ReferringPhysician spantype="macro title=#ReferringPhysician> </span>
<strong>Primary GYNOncologist: </strong><span class=clinicalNoteMacroHighlighted id=[id number] macroname=AttendingPhysician spantype=macro title=#AttendingPhysician>Sarah Coto (Gynecol ogical/Oncology)</span>
<strong>Date of Service:</strong> 02/02/2025<b r>
<span class=clinicalNoteSectionShowSeparators clinicalNoteSectionVisible" id=[id number] internalbreaksection=false originalname="Reason for Consult: recognizeconcepts=true spantype=section suppressempty=false>Reason for Consult:</span>
Cervical cancer

<span class=clinicalNoteSectionShowSeparators clinicalNoteSectionVisible id=[id number] internalbreaksection=false originalname=HPI recognizeconcepts=true spantype=section suppressempty=false">History of Present Illness (Field Training Agent Oncology):</span>
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

01/05/25 Admitted to [facility] with acute renal failure. CT showed worsening bilateral hydronephrosis and possible lower uterine vs. cervical mass.. She underwent bilateral nephrostomy tube placement on 01/07/25, Cr improved following placeme nt.

01/10/25 Uterus size: 6.6 x 6.1 x 8.2 centimeters. Normal endometrial thickness measuring 0.3 centimeters. Multiple uterine fibroids with resulting distortion of the endometrium, the largest is along the posterior uterine body measuring 5.1 x 5.3 x 4.7 cm. There is a exophyticcalcified fibroid along the left posterior uterine wall. Cervix: Enhancing large spiculated cervical mass measures 4.7 x 4.2 x 4.1 cm. There is no associated diffusion restriction. There is a defect along the cervical wall at 5 o'clock, which may related to prior sampling or a small nabothian cyst. Parametrial invasion: Extension of the mass through the parametrium, with loss of the parametrial stripe. Vaginal invasion: Involvement of the superior most aspect of the vagina (within the upper third) Pelvic sidewall: No definite extension to the pelvic sidewall. Invasion [...] also have this appearance.

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 Background high- grade squamous intraepithelial lesion (CIN3)

On exam under anesthesia, firm tumor palpated at top of vagina - cervix not able to be visualized cervix was completely retracted, there was approximately 5 cm of anterior vaginal epithelium free of gross tumor, bilateral pelvic sidewall involvement on rectovaginal exam; uterus/cervix enlarged and fixed on bimanual exam.On cystoscopy, trigone with tumor involvement - no visible vesicovaginal fistula or leakage of cystoscopy fluid through vagina (pictures taken). On rectal exam, the tumor was palpable through the rectum but no tumor was palpable along rectal mucosa, no rectovaginal fistula, the rectum felt fixed tothe tumor at approximately 10 cm

01/27/25 PET [...] previously characterized on recent pelvic MRI 01/11/2025. No evidence of FDGavid jody or distant metastatic disease

HPI: Has been experiencing pelvic cramping - slightly worsened since hospitalization. Managing with OTC meds. Is having difficulty with sleeping, thinks related to anxiety. Has urge to have bowel movement, but doesn't have to go - thinks related to tumor on rectum. Small amount of vaginal bleeding. Able to empty nephrostomy tubes, working well.

<span class=clinicalNoteSectionShowSeparators clini calNoteSectionVisible id=[id number] internalbreaksection=false originalname=Genetic Testing recognizeconcepts=true spantype=section suppressempty=false>Genetic Testing (Field Training Agent Oncology):</span><br&gt ;None

<span class=clinicalNoteSectionShowSeparators clinicalNoteSectionV isible id=[id number] internalbreaksection=false original name=Review of Systems recognizeconcepts=true spantype=section s uppressempty=false>Review of Systems:</span>
A complete 14-point review of systems is negative except as noted in the above history of present illness.

<span class=clinicalNoteSectionShowSeparators clinicalNoteSectionVisible id=[id number] internalbreaksection=false originalname=Past Medical History: recognizeconcepts=true spantype=section suppressempty=false>Past Medical History:</span>
Hypertension

<span class=clinicalNoteSectionShowSeparators clinicalNoteSectionVisible id=[id number] internalbreaksection=false originalname=Surgical History: recognizeconcepts=true spantype=section suppressempty=false>Surgical History:</span>
Skin cancer excision

<span class=clinicalNoteSectionShowSeparators clinicalNoteSectionVisible id=[id number] internalbreaksection=false originalname=BOBBIN WINDER History: r ecognizeconcepts=true spantype=section suppressempty=false>photographic reproduction technician History:</span>
Never
No history abnormal Paps but reports h/o of cervical erosion treated with cautery in her 20s
No history STIs
Not sexually active x 15 years

<span class=clinicalNoteSectionShowSeparators clinicalNoteSectionVisible id=[id number] internalbreaksection="false originalname=Allergies recognizeconcepts=true spantype="section suppressempty=false>Allergies#</span>
<span class=&q uot;clinicalNoteMacroHighlighted id=[id number] macroname=Allerg ies parameters=ValueIfNull:NKA spantype=macro title=#Allergies(V alueIfNull:NKA)>NKA</span>

<span class=clinicalNoteSectio nShowSeparators clinicalNoteSectionVisible id=[id number] internalbreaksection=false originalname=Medications: recognizeconcepts=true spantype=section suppressempty=false>Medications:</span>
<span class=clinicalNoteMacroHighlighted id=[id number] macro name=PatientMedications parameters=ListType:Bulleted spantype=macro" title=#PatientMedications(ListType:Bulleted)> </s nava>

<span class=clinicalNoteSectionShowSeparators clinicalNoteSectio nVisible id=[id number] internalbreaksection=false origi nalname=Family History: recognizeconcepts=true spantype=section suppressempty=false>Family History:</span>
No FH gynecologic cancer. Niece with breast CA, 55 yo

<span class=clinicalNoteSectionShowSeparators clinicalNoteSectionVisible id=[id number] internalbreaksection="false originalname=Social History: recognizeconcepts=true spantype="section suppressempty=false>Social History:</span>
. Never smoker. 2 drinks of alcohol per week.

<span class=clinicalNoteSectionShowSeparators clinicalNoteSectionVisible id=[id number]" internalbreaksection=false originalname=Health Maintenance: recognizeconce pts=true spantype=section suppressempty=false>Health Maintena nce:</span>
Noncontributory

<span class=clinica lNoteSectionShowSeparators clinicalNoteSectionVisible id=[id number] internalbreaksection=false originalname=Vital Signs: recognizeconcepts="true spantype=section suppressempty=false>Vital Signs:</span>
<span class=clinicalNoteMacroHighlighted id=[id number]" macroname=PatientVitalSigns parameters=LookBackDays:1 spantype=macro title=#PatientVitalSigns(LookBackDays:1)>Blood pressure: , Pulse: , Temper ature: , Respirations: , O2 sat: , Pain Scale: , Height: , Weight: , BSA: , BMI: </span>

<span class=clinicalNoteSectionShowSeparators clinicalNoteSectionVisible" id=[id number] internalbreaksection=false originalname=Physical Exam: recognizeconcepts=true spantype=section suppressempty="false>Physical Exam (Field Training Agent Oncology):</span>
*Virtual visit*

<span class=clinicalNoteSectionShowSeparators clinicalNoteSectionVisible" id=[id number] internalbreaksection=false originalname=&qu ot;Labs: recognizeconcepts=true spantype=section suppressempty=f alse>Laboratory Data:</span>
<span class=clinicalNoteMacroHighlighted id=[id number] macroname=RecentLabResultsTable paramete rs=OptionalFlowsheetCategory:CBC,Label:CBC spantype=macro title=#Recen tLabResultsTable(OptionalFlowsheetCategory:CBC,Label:CBC)></span>
<span c lass=clinicalNoteMacroHighlighted id=[id number] macroname=&quot ;RecentLabResultsTable parameters=OptionalFlowsheetCategory:Chemistries,Label:CMPspantype=macro title=#RecentLabResultsTable(OptionalFlowsheetCategory:Chemistries, Label:CMP)></span>None
<span class=clinicalNoteMacroHighlighted" id=[id number] macroname=RecentLabResultsTable parameters=&quot ;OptionalFlowsheetCategory:Tumor Markers spantype=macro title=#RecentLabResu ltsTable(OptionalFlowsheetCategory:Tumor Markers)> </span&g t;
<span class=clinicalNoteMacroHighlighted id=[id number]& quot; macroname=RecentLabResultsTable parameters=OptionalFlowsheetCategory:Coags" spantype=macro title=#RecentLabResultsTable(OptionalFlowsheetCategory:Coags)& quot;> </span>

<span class=clinica lNoteSectionShowSeparators clinicalNoteSectionVisible id=[id number]=false originalname=Imaging: recognizeconcepts=true spantype=section suppressempty=false>Imaging:</span>
As documented above

<span class=clinicalNoteSectionShowSeparators clinicalNoteSectionVisible id=[id number] internalbreaksection =false originalname=Problems: recognizeconcepts=true spantype=&q uot;section suppressempty=false>Problems:</span>
<span class= clinicalNoteMacroHighlighted id=[id number] macroname=Problems parameters=ListType:Bulleted spantype=macro title=#Problems( ListType:Bulleted)><ul> <li>Cervical mass</li> <li>Cervical cancer& lt;/li></ul></span>

<span class=clinicalNoteSectionShowSeparators clinicalNoteSectionVisible id=[id number] internalbreaksecti on=false originalname=Assessment & Plan: recognizeconcepts=true spantype=section suppressempty=false>Assessment & Plan (Field Training Agent Oncology):</span>
Alyssa Pulido is a 74 year. female with Stage BRICE squamous cellcarcinoma of the cervix admitted on 01/05/2025 with acute renal failure. CT showed worsening bilateral hydronephrosis and possible lower uterine vs. cervical mass. She underwent bilateral nephrostomy tube placement on 01/07/25, Cr improved following placement.

We discussed that thecurative treatment of locally advanced cervical cancer is chemoradiation with immunotherapy. We revi ewed that this entails approximately 5 weeks of external beam pelvic radiation and weekly Cisplatinchemotherapy + Keytruda for radiosensitization; this treatment would be followed by brachytherapy. I emphasized the importance of not missing treatments as this could adversely affect her risk of recurrence. We also reviewed the importance of completing brachytherapy treatment after external beam radiation therapy. I counseled the patient on her prognosis and that Stage BRICE disease 5 year survival rates are approximately 20%.

We briefly reviewed radiation side effects. Acute effects of radiation can include but are not limited to: skin irritation, desquamation, fat igue, bone marrow suppression, loose stools, diarrhea, and more frequent bowel movements, urinary frequency or dysuria. Late complications include, but are not limited to: disease recurrence, vaginalnarrowing and shortening, vaginal dryness, fistula formation, bowel obstruction, unlikely risk of damage to the surrounding bowel, rectum, bowel obstruction. Counseled extensively and fistula risk - briefly reviewed treatment for fistula. She verbalized understanding and all questions were answered.

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
<ul> <li>Radiation oncology referral
</li> <li>Port placement ordered
</li> <li>RN chemotherapy teaching visit</li> <l i>Palliative Care referral for assistance with pain/symptom management while on treatment </li> <li>Counseled on need for nephrostomy tubes throughout treatment course - depending on treatment response, could discuss removal vs. stent placement in the future </li></ul>This visit was provided via telemedicine with the use of real-time audio and video. The patient has verbally consented to do this visit via telemedicine. The patient participated in this visit. The patient is located in their home, and Sarah Johnson am located in the [facility]. The visit length was: 22 minutes. Total time spent on the day of service is 45 minutes including time spent reviewing records, telemedicine visit with the patient, preparing orders, and documentation.

<span class=clinicalNoteSectionShowSeparators clinicalN oteSectionVisible id=[id number] internalbreaksection=false&qu ot; originalname=Pain Management Plan: recognizeconcepts=true spantype=section suppressempty=false>Pain Care Management:</span>&l t;br><span class=clinicalNoteMacroHighlighted id=[id number]&quo t; macroname=PatientPainScale parameters=Label:Pain Scale: ,LookBackDays:0,ValueIfNull:Not recorded on visit spantype=macro title=#PatientPainScale(Label:Pain Scale: ,LookBackDays:0,ValueIfNull:Not recorded on visit)>Pain Scale: Not recorded on visi t</span>

<span><span><span class=clinicalNoteSectionShowSeparators clinicalNoteSectionVisible id=[id number] internalbreak section=false originalname=Patient Care Management recognizeconcepts=true spantype=section suppressempty=false>Patient Care needs:</span>
<span class=clinicalNoteMacroHighlighted id=[id number] macroname=DepressionStatus parameters=Label:Depressions Status: ,ValueI fNull:Not recorded on visit spantype=macro title=#DepressionStatus(Label:Dep ressions Status: ,ValueIfNull:Not recorded on visit)>Depressions Status: Not recorded on visit</span>
<span><span class=clinicalNoteMacroHighlighted id="[id number] macroname=PatientSmokingStatus parameters=Label:Smoking Status: ,ValueIfNull:Not recorded spantype=macro title=#PatientSmokingStatus(Label:Smoking Status: ,ValueIfNull:Not recorded)>Smoking Status: Smoking Tobacco : none found; Smokeless Tobacco : none found; Vaping : none found</span></span></span&gt ;</span></div>
<hr><span><strong>Sarah Coto MD</str amanuel></span>
<span class=clinicalNoteMacroHighlighted id=macro [id number] macroname=LocationPhoneNumber parameters=Label:Phone: &quo t; spantype=macro title=#LocationPhoneNumber(Label:Phone: )>Phone: </span>
<span class=clinicalNoteMacroHighlighted id=beverly [id number] macroname=LocationFaxNumber parameters=Label:Fax: &quo t; spantype=macro title=#LocationFaxNumber(Label:Fax: )>Fax: </span>

Copy to: <span class=clinicalNoteMacroHighlighted id=[id number] macroname=NoteRecipients spantype=macro" title=#NoteRecipients> </span>
<br&g t;

<div><span class=eSignSignature>Electronically signed by Sarah Coto MD 02/02/2025 09:27 CDT</span>& lt;/div></body></html>
--- OUTSIDE RECORDS SUMMARY | 2025-07-15 14:17 | XMS_ITS | Encounter Summary ---
Author Organization [facility] Address [address] [place] [address] Care Team Providers Care Compensation Analyst Name Role Phone Unavailable Primary Care Provider Unavailabl e Encounter Details Date Type Department Care Team (Late st Contact Info) Description 07/15/2025 Clinical Communication Department of Radiation Oncology in [place], [place] [address] [place] [address] Thelma Streeter M.D. [address] [place] [address] Social History Tobacco Use Types Packs/Day Years Used Date Smoking Tobacco: Never Smokeless Tobacco: Never Alcohol Use Standard Drinks/Week Comments Not Currently 0 (1 standard drink = 0.6 oz pure alcohol) Quit drinkinking in August after pelvic pain started. [facility] Utilities Answer Date Recorded In the past 12 months has [facility] [employer], gas, oil, or water [employer] threatened to shut off services in your [...] living situation today? I have a [facility] place to live 03/21/2025 Comments No Sex and Gender Information Value Date Recorded Sex Assigned at Female 03/05/2025 6:51 AM CDT Legal Sex Female 6:12 PM [employer] Gender Identity Female 03/05/2025 6:51 AM CDT Sexual Orientation Straight 03/05/2025 6: 51 AM CDT documented as of this encounter Miscellaneous Notes * Telephone Encounter - Sabrina Foley APRN, C.N.P., D.N.P. - 07/15/2025 12:57 PM CDT I contacted Alyssa to inform her of the blood clots that the CT abdomen and pelvis she had performed yesterday found. She does not have a history of blood clots and is not on any anticoagulation or antiplatelet therapy. She reports having minor shortness of breath over the last few days which is new for her. Shortness of breath is not currently debilitating her daily activities. She denies any chest pain or leg pain. I informed her that she needs to seek emergent care. I did recommend reporting to either [facility] or [facility] Emergency room. She was persistent on wanting to attend [facility]. I did inform her that they would likely send her to a larger institution but she was okay with this. We will continue monitoring her electronic health record for more information. Dr. Streeter will reach out to her on Friday to follow up and to discuss other CT findings related toher cervical cancer. She verbalized understanding and agreement to the plan. * Telephone Encounter - Haylie Ovalle - 07/15/2025 10:53 AM CDT Gris VELIZ at [facility] called regarding patients CT scan from yesterday. The radiologist contacted herabout the results. 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 Gris would like to discuss with our team here as she is considering sending her to [facility]. She would like a call back to discuss. [phone] ask for Gris. documented in this encounter Plan of Treatment Upcoming Encounters Date Type Department Care Team (Late st Contact Info) Description 08/05/2025 11:00 AM [employer] TE[employer]ER Appointment Department of Radiology, [facility], in [place], [place] [address] [place] [phone] Jessie Borden APRN, C.N.P., D.N.P. [address] [place] [phone] 08/05/2025 2:30 PM LIFE TE[employer]ER Office Visit Department of Urology in [place], [place] [address] [place] [phone] Jessie Borden APRN, C.N.P., D.N.P. [address] [place] [phone] documented as of this encounter Visit Diagnoses Not on filedocumented in this encounter
--- OUTSIDE RECORDS SUMMARY | 2025-07-15 14:17 | XMS_ITS ---
Author Name Interface, [id number] lity Address [address] [address] [facility] Address [address] [address] Support Name Relationship Address Phone Jesse Wei Spouse Unknown Unavailable Allergies and Adverse Reactions Medication/Group Name Reaction Severity Date Cipro 05/10/2025 Plan Date Type Value 05/10/2025 APPOINTMENT TELEHEALTH PALLI ATIVE CONSULT 80 MIN Reason for Visit TELEHEALTH PALLIATIVE CONSULT 80 MIN Encounters Date Name 05/10/2025 Cervical cancer 05/10/2025 Pain due to neoplast ic disease (finding) 05/10/2025 Seen by palliative c are physician Medications Date Name Route Dose Frequency Instructions Start Date End Date Status Fill Status Indication 02/02 1 ML epineph rine 1 MG/ML Injecti on intramus cularly 0.3 mg once Re-initiate treatment only upon physician approval. 2024 active Cervical cancer 02/02 methylp redniso lone 2000 MG Injecti on intraven ously 125.0 mg Re-initiate treatment only upon physician approval. 2024 active Cervical cancer 02/02 hydroco rtisone 100 MG Injecti on intraven ously 100.0 mg Re-initiate treatment only upon physician approval. 2024 active Cervical cancer 02/02 4 ML pembrol izumab 25 MG/ML Injecti on intraven ously 200.0 mg once Dilute with NS or D5W to a final concentration of 1-10 mg/mL. Infuse with low protein binding filter (0.2 - 5 micron). Do not mix with other drugs. Do not shake. 2024 active Cervical cancer 02/02 diphenh ydramin e hydroch loride 0.5 MG/ML Injecta ble Solutio n intraven ously 50.0 mg Re-initiate treatment only upon physician approval. 2024 active Cervical cancer 02/02 famotid ine 10 MG/ML Injecta ble Solutio n intraven ously 20.0 mg Re-initiate treatment only upon physician approval. 2024 active Cervical cancer 02/02 4 ML pembrol izumab 25 MG/ML Injecti on intraven ously 200.0 mg once Dilute with NS or D5W to a final concentration of 1-10 mg/mL. Infuse with low protein binding filter (0.2 - 5 micron). Do not mix with other drugs. Do not shake. 2024 active Cervical cancer 02/02 methylp redniso lone 2000 MG Injecti on intraven ously 125.0 mg Re-initiate treatment only upon physician approval. 2024 active Cervical cancer 02/02 hydroco rtisone 100 MG Injecti on intraven ously 100.0 mg Re-initiate treatment only upon physician approval. 2024 active Cervical cancer 02/02 diphenh ydramin e hydroch loride 0.5 MG/ML Injecta ble Solutio n intraven ously 50.0 mg Re-initiate treatment only upon physician approval. 2024 active Cervical cancer 02/02 1 ML epineph rine 1 MG/ML Injecti on intramus cularly 0.3 mg once Re-initiate treatment only upon physician approval. 2024 active Cervical cancer 02/02 famotid ine 10 MG/ML Injecta ble Solutio n intraven ously 20.0 mg Re-initiate treatment only upon physician approval. 2024 active Cervical cancer 02/02 4 ML pembrol izumab 25 MG/ML Injecti on intraven ously 200.0 mg once Dilute with NS or D5W to a final concentration of 1-10 mg/mL. Infuse with low protein binding filter (0.2 - 5 micron). Do not mix with other drugs. Do not shake. 2024 active Cervical cancer 02/02 1 ML epineph rine 1 MG/ML Injecti on intramus cularly 0.3 mg once Re-initiate treatment only upon physician approval. 2024 active Cervical cancer 02/02 famotid ine 10 MG/ML Injecta ble Solutio n intraven ously 20.0 mg Re-initiate treatment only upon physician approval. 2024 active Cervical cancer 02/02 hydroco rtisone 100 MG Injecti on intraven ously 100.0 mg Re-initiate treatment only upon physician approval. 2024 active Cervical cancer 02/02 methylp redniso lone 2000 MG Injecti on intraven ously 125.0 mg Re-initiate treatment only upon physician approval. 2024 active Cervical cancer 02/02 diphenh ydramin e hydroch loride 0.5 MG/ML Injecta ble Solutio n intraven ously 50.0 mg Re-initiate treatment only upon physician approval. 2024 active Cervical cancer 02/02 18 ML aprepit ant 7.2 MG/ML Injecti on intraven ously 130.0 mg once Administer 30 minutes prior to chemotherapy. Do NOT dilute. Flush with NS before and after administration . 2024 active Cervical cancer 02/02 Palonos etron IV intraven ously 0.25 mg once 2024 active Cervical cancer 02/02 cisplat in 1 MG/ML Injecta ble Solutio n intraven ously 71.0 mg once Administer for 5-6 total doses. The 6th dose is optional and may be administered per local practice. Cisplatin is a vesicant.If diluted to a final concentration of less than 0.5 mg/mL, cisplatin is a vascular irritant. 2024 active Cervical cancer 02/02 famotid ine 10 MG/ML Injecta ble Solutio n intraven ously 20.0 mg Re-initiate treatment only upon physician approval. 2024 active Cervical cancer 02/02 1 ML epineph rine 1 MG/ML Injecti on intramus cularly 0.3 mg once Re-initiate treatment only upon physician approval. 2024 active Cervical cancer 02/02 Sodium Chlorid e IV 0.9 % intraven ously 1000. 0 mL once Pre-hydration prior to Cisplatin administration . 2024 active Cervical cancer 02/02 diphenh ydramin e hydroch loride 0.5 MG/ML Injecta ble Solutio n intraven ously 50.0 mg Re-initiate treatment only upon physician approval. 2024 active Cervical cancer 02/02 hydroco rtisone 100 MG Injecti on intraven ously 100.0 mg Re-initiate treatment only upon physician approval. 2024 active Cervical cancer 02/02 methylp redniso lone 2000 MG Injecti on intraven ously 125.0 mg Re-initiate treatment only upon physician approval. 2024 active Cervical cancer 02/02 dexamet hasone phospha te 4 MG/ML Injecta ble Solutio n intraven ously 10.0 mg once 2024 active Cervical cancer 02/02 18 ML aprepit ant 7.2 MG/ML Injecti on intraven ously 130.0 mg once Administer 30 minutes prior to chemotherapy. Do NOT dilute. Flush with NS before and after administration . 2024 active Cervical cancer 02/02 methylp redniso lone 2000 MG Injecti on intraven ously 125.0 mg Re-initiate treatment only upon physician approval. 2024 active Cervical cancer 02/02 cisplat in 1 MG/ML Injecta ble Solutio n intraven ously 71.0 mg once Administer for 5-6 total doses. The 6th dose is optional and may be administered per local practice. Cisplatin is a vesicant.If diluted to a final concentration of less than 0.5 mg/mL, cisplatin is a vascular irritant. 2024 active Cervical cancer 02/02 diphenh ydramin e hydroch loride 0.5 MG/ML Injecta ble Solutio n intraven ously 50.0 mg Re-initiate treatment only upon physician approval. 2024 active Cervical cancer 02/02 hydroco rtisone 100 MG Injecti on intraven ously 100.0 mg Re-initiate treatment only upon physician approval. 2024 active Cervical cancer 02/02 famotid ine 10 MG/ML Injecta ble Solutio n intraven ously 20.0 mg Re-initiate treatment only upon physician approval. 2024 active Cervical cancer 02/02 Palonos etron IV intraven ously 0.25 mg once 2024 active Cervical cancer 02/02 dexamet hasone phospha te 4 MG/ML Injecta ble Solutio n intraven ously 10.0 mg once 2024 active Cervical cancer 02/02 1 ML epineph rine 1 MG/ML Injecti on intramus cularly 0.3 mg once Re-initiate treatment only upon physician approval. 2024 active Cervical cancer 02/02 Sodium Chlorid e IV 0.9 % intraven ously 1000. 0 mL once Pre-hydration prior to Cisplatin administration . 2024 active Cervical cancer 02/02 18 ML aprepit ant 7.2 MG/ML Injecti on intraven ously 130.0 mg once Administer 30 minutes prior to chemotherapy. Do NOT dilute. Flush with NS before and after administration . 2024 active Cervical cancer 02/02 Sodium Chlorid e IV 0.9 % intraven ously 1000. 0 mL once Pre-hydration prior to Cisplatin administration . 2024 active Cervical cancer 02/02 hydroco rtisone 100 MG Injecti on intraven ously 100.0 mg Re-initiate treatment only upon physician approval. 2024 active Cervical cancer 02/02 4 ML pembrol izumab 25 MG/ML Injecti on intraven ously 200.0 mg once Dilute with NS or D5W to a final concentration of 1-10 mg/mL. Infuse with low protein binding filter (0.2 - 5 micron). Do not mix with other drugs. Do not shake. 2024 active Cervical cancer 02/02 diphenh ydramin e hydroch loride 0.5 MG/ML Injecta ble Solutio n intraven ously 50.0 mg Re-initiate treatment only upon physician approval. 2024 active Cervical cancer 02/02 dexamet hasone phospha te 4 MG/ML Injecta ble Solutio n intraven ously 10.0 mg once 2024 active Cervical cancer 02/02 famotid ine 10 MG/ML Injecta ble Solutio n intraven ously 20.0 mg Re-initiate treatment only upon physician approval. 2024 active Cervical cancer 02/02 methylp redniso lone 2000 MG Injecti on intraven ously 125.0 mg Re-initiate treatment only upon physician approval. 2024 active Cervical cancer 02/02 Palonos etron IV intraven ously 0.25 mg once 2024 active Cervical cancer 02/02 cisplat in 1 MG/ML Injecta ble Solutio n intraven ously 71.0 mg once Administer for 5-6 total doses. The 6th dose is optional and may be administered per local practice. Cisplatin is a vesicant.If diluted to a final concentration of less than 0.5 mg/mL, cisplatin is a vascular irritant. 2024 active Cervical cancer 02/02 1 ML epineph rine 1 MG/ML Injecti on intramus cularly 0.3 mg once Re-initiate treatment only upon physician approval. 2024 active Cervical cancer 02/02 diphenh ydramin e hydroch loride 0.5 MG/ML Injecta ble Solutio n intraven ously 50.0 mg Re-initiate treatment only upon physician approval. 2024 active Cervical cancer 02/02 cisplat in 1 MG/ML Injecta ble Solutio n intraven ously 71.0 mg once Administer for 5-6 total doses. The 6th dose is optional and may be administered per local practice. Cisplatin is a vesicant.If diluted to a final concentration of less than 0.5 mg/mL, cisplatin is a vascular irritant. 2024 active Cervical cancer 02/02 dexamet hasone phospha te 4 MG/ML Injecta ble Solutio n intraven ously 10.0 mg once 2024 active Cervical cancer 02/02 methylp redniso lone 2000 MG Injecti on intraven ously 125.0 mg Re-initiate treatment only upon physician approval. 2024 active Cervical cancer 02/02 18 ML aprepit ant 7.2 MG/ML Injecti on intraven ously 130.0 mg once Administer 30 minutes prior to chemotherapy. Do NOT dilute. Flush with NS before and after administration . 2024 active Cervical cancer 02/02 1 ML epineph rine 1 MG/ML Injecti on intramus cularly 0.3 mg once Re-initiate treatment only upon physician approval. 2024 active Cervical cancer 02/02 Palonos etron IV intraven ously 0.25 mg once 2024 active Cervical cancer 02/02 famotid ine 10 MG/ML Injecta ble Solutio n intraven ously 20.0 mg Re-initiate treatment only upon physician approval. 2024 active Cervical cancer 02/02 Sodium Chlorid e IV 0.9 % intraven ously 1000. 0 mL once Pre-hydration prior to Cisplatin administration . 2024 active Cervical cancer 02/02 hydroco rtisone 100 MG Injecti on intraven ously 100.0 mg Re-initiate treatment only upon physician approval. 2024 active Cervical cancer 02/02 diphenh ydramin e hydroch loride 0.5 MG/ML Injecta ble Solutio n intraven ously 50.0 mg Re-initiate treatment only upon physician approval. 2024 active Cervical cancer 02/02 cisplat in 1 MG/ML Injecta ble Solutio n intraven ously 71.0 mg once Administer for 5-6 total doses. The 6th dose is optional and may be administered per local practice. Cisplatin is a vesicant.If diluted to a final concentration of less than 0.5 mg/mL, cisplatin is a vascular irritant. 2024 active Cervical cancer 02/02 1 ML epineph rine 1 MG/ML Injecti on intramus cularly 0.3 mg once Re-initiate treatment only upon physician approval. 2024 active Cervical cancer 02/02 hydroco rtisone 100 MG Injecti on intraven ously 100.0 mg Re-initiate treatment only upon physician approval. 2024 active Cervical cancer 02/02 methylp redniso lone 2000 MG Injecti on intraven ously 125.0 mg Re-initiate treatment only upon physician approval. 2024 active Cervical cancer 02/02 18 ML aprepit ant 7.2 MG/ML Injecti on intraven ously 130.0 mg once Administer 30 minutes prior to chemotherapy. Do NOT dilute. Flush with NS before and after administration . 2024 active Cervical cancer 02/02 dexamet hasone phospha te 4 MG/ML Injecta ble Solutio n intraven ously 10.0 mg once 2024 active Cervical cancer 02/02 famotid ine 10 MG/ML Injecta ble Solutio n intraven ously 20.0 mg Re-initiate treatment only upon physician approval. 2024 active Cervical cancer 02/02 Palonos etron IV intraven ously 0.25 mg once 2024 active Cervical cancer 02/02 Sodium Chlorid e IV 0.9 % intraven ously 1000. 0 mL once Pre-hydration prior to Cisplatin administration . 2024 active Cervical cancer 02/02 dexamet hasone phospha te 4 MG/ML Injecta ble Solutio n intraven ously 10.0 mg once 2024 active Cervical cancer 02/02 diphenh ydramin e hydroch loride 0.5 MG/ML Injecta ble Solutio n intraven ously 50.0 mg Re-initiate treatment only upon physician approval. 2024 active Cervical cancer 02/02 famotid ine 10 MG/ML Injecta ble Solutio n intraven ously 20.0 mg Re-initiate treatment only upon physician approval. 2024 active Cervical cancer 02/02 Sodium Chlorid e IV 0.9 % intraven ously 1000. 0 mL once Pre-hydration prior to Cisplatin administration . 2024 active Cervical cancer 02/02 1 ML epineph rine 1 MG/ML Injecti on intramus cularly 0.3 mg once Re-initiate treatment only upon physician approval. 2024 active Cervical cancer 02/02 hydroco rtisone 100 MG Injecti on intraven ously 100.0 mg Re-initiate treatment only upon physician approval. 2024 active Cervical cancer 02/02 4 ML pembrol izumab 25 MG/ML Injecti on intraven ously 200.0 mg once Dilute with NS or D5W to a final concentration of 1-10 mg/mL. Infuse with low protein binding filter (0.2 - 5 micron). Do not mix with other drugs. Do not shake. 2024 active Cervical cancer 02/02 cisplat in 1 MG/ML Injecta ble Solutio n intraven ously 71.0 mg once Administer for 5-6 total doses. The 6th dose is optional and may be administered per local practice. Cisplatin is a vesicant.If diluted to a final concentration of less than 0.5 mg/mL, cisplatin is a vascular irritant. 2024 active Cervical cancer 02/02 Palonos etron IV intraven ously 0.25 mg once 2024 active Cervical cancer 02/02 methylp redniso lone 2000 MG Injecti on intraven ously 125.0 mg Re-initiate treatment only upon physician approval. 2024 active Cervical cancer 02/02 18 ML aprepit ant 7.2 MG/ML Injecti on intraven ously 130.0 mg once Administer 30 minutes prior to chemotherapy. Do NOT dilute. Flush with NS before and after administration . 2024 active Cervical cancer Problems Diagnosis Status Date of Diagnosis Resolution Date Cervical cancer Active Cervical mass Active Seen by palliative care physician Active Pain due to neoplastic disease (finding) Active Vital Signs Date Type Value 05/10/2025 Height 64.90 05/10/2025 Pain Scale 3.00 Notes Section * Palliative Care Initial Visit <html><head></head><body><div style=text-align:center>

<span class=clinicalNoteMacroWysiwyg id=[id number] macroname=PracticeLetterhead spantype=macro title=#PracticeLetterhead><img src=data:image/png;base64,pRHZDv0UUmlGDQKGMYpLCfRXSLAVAWFqZYKWEII8D9xHO HQLSKDHE6GSqw7i5IYPOCCnKR4NTKDnnha6UHFUQCWFcDmYdrUMApMUHP9WDHUcEgdITZpYFGSIALzn1 D3CmIJ7BagKUtgbplM5K nWhTrNHPTjsJfyKMumLRWWVIQAuJjTOJXvyBrmUgTJxEGLN9OziJu0MLnytL+u8/Hsu7rrf9k75O20Py midpjoedFaIKxMW2dnXg PHPZJgCEybQnhTjW3UkYOO8eX/vBuyZLJiYpWBwAHHmqZAFWNNoYAQZXNYRqmVIx5NYvkMVq/gECxCGY KsEU4kSf8BniIu9Bc3py RkGoKgcwwCAxBBwx55YPxtsBIRSh4nsCTPYdXylrGSrNy4yY1nJaTjkFC5stCZWlhx30syskyOT3wpZW Rh2d4ROs9fxbKi08nJTV mRwYwSo0C9jFeuoIuHHQAk1CAvL8zqwlLd8dZiqx3hGDzLVYLiIcAzDhtaSBUeKfjA9aE6zsr64aMSwI /QlNNerr1HBz6dwf7Uh7 6oQw1x/sABhrlu+/tdrez2187J/rQJOaJxbKghTg3jHBuThluoeZXEEEDVI+AdQYHAQBQQQrV7+EU0e+ nXfWEhV28RNpiilQt8Rr 53LQrG3Dmwfe2+mLZGW6d+xRx8a//4zLvuBMcUCAoIVu0+k1U9WGmuTw07o+7HsZPsBauDGaH94bDaxu Tx++/btVL9+felnmOsJF iDMdUdGRgYFBQVJ/vAXiXtCduaZAxkXHxHKEOtLA5T5Ij3hj8/JM0WLvz2yVo+ZmiuibYEU1owTETupY CYtA5c0zyovbwFaPM6f8 Fzvu17hU7NKid4N998fRgKS2OPMPKchGCGeprKkUb4seAc3iA39LEEiMbwETA+1kp10oHnRdSjjkB7oo IEw/wpWrFhB8+fPp/Xr1 6GrFcNJuBpVUn90bPJowylqhXEZ72AeNPwB76H/cbmJrba1XaMAHFZNpSBKbA3zYfBoXOPNoQTgMt4yl 73zgXfhSbYsj9PvATP04 ADlvSEWG3ouyh2INwPEfpEitbRXqaOIXcGr0Pw87ns6YPvADkaNhCpsyUkPG3v2/CCwHFmk0kExSb+6s 99jykmmHiOyoKWkHpS3H yLbTnRbWwXr56qQcIGHWsGNl5cxsM2UxwY4Jb2lm2g+uqj8XYWRJBGZlZXGHDupNrTr45//vhQmDFNQ4 P3kffSBqFMeTPCWO8DfI 2uUmT851scpnjPfALx35uvcUdA6Z49nCm1x3i1uby+xmGnST6nlxkuWw912Jo/EvamiRp7atXATvTmW7 hTXKL2YXEV2NAt9Ytw1W pIioqLpu4+A2A53LdC4OJ+gD2e+DsGOq7bFKZ0TCj1C13W8gB9iJ6D5n++W1+iWCSvVBc59GJ3sgOFgm pxYjPCTYJXBpaUhcvi7e KlSDiy1jaX9dAzWOCEI4q3+n2Cw79lAR6XkOrzWt4509x/IMNadTzO+ENMXoyLr848EQwREb05EFcZNO tnSt2/w9tccSu2TeXLDt 6JjxVmiRTgieyBtjk29qf/IZKgNwTBLybIXxlQvtR6zRfF5TAn26ZBq2xUaU8ACYykPQnPDWeqzp73/M NAY/xN5Z2wJVZvIQvjLW +cafn7+mz2VKnGYpmIHQHD3VfVphDF8p11fc2DuPmSHY811S6GhpBBHWRDovGM3kEWGEPcp7NzPcrPAs 7XmNL7PEq71SttNzrALT 6W/mc46xInyEzx37UfhoKFS2znSz0g/xYic0UQWSelBn2NK3qiMF9nNzr0jqPgxRNZCl6CMEjDkrAch6 mracwiW2Lb7dzCkzr26X z2jHSIWMEh3V/z0pO17wDGHDZeQcUohNqhGC7h++rez8kkdrdZmU1XvnIbVVGfSCGGlSUPatHJOfyMZn QLWTZgIiMUPf//9dxXrG gy2//giy6P1N1TNzdluRQz2dvuT2mCGnW3hcvfSW4f1nzNZQZk+/53NjWuGDh2ujYvYWQjWcqA09CGHN wO8fVcqo08+mK4HB3QAo hGnOEyNHa9MTE0kgqodwak5zDsRwoVYuAclgotxoe4GOE+Ex+QXiX7/g+fU1ETkIRyMdDlN3ENOB1mgK kcrOqjEbeleBt2x7gckm Uc57KZLg1/O6QHdY2hTUJjEzzXon+sU1VAB2BlXjxSJ4KvPxQWy63qPrZuoP444vGp1v00qClFvGQGik N7hPqMMv3OIpBSW9WdfM eUqVdQexwwdOlRuddeZO/SFkbVves5RswO8LuWpJHVKd4+gQCRKfgcAsYdU8LbuirXBpuwlZtVOgYU5/ PhxGd+cUzBuq2ntSpSm2 eheiy3DcKrLgSLZImgogs+TI79cJ0WZLKGtPyycwYaqtwlCuV8ESKmzWbVTcbokIBNxLQZzWQssyiv7p NG/y48TsbwOPs7xwUd+c zF6vNiGDjGcIMG937lGQwKKVYa9SMlUbdLBg+9idjfFykXZrs9KaJkpvH/357CY5vl3gPtPIMybMsKBK GU9XAdTCQ4XHShWLz8WB bDAFei0l+bvK4Ed668dK4200ahBX6L4n+2q6b0Ll1ciFpbt/pjKmMmKEYfL0Kz+8YbRSt25vtHEBdyS6 wERGTpyqWkZlJCYRCdPn ck1Wuvzh0fIPGVk4bQn4sRocCC68ntyJ5q6qfuRTKWhpEWY4g7AKdk1k04YNWutNM2ZKhRTnbu247xMa fPDR0XwS3eW5TDbcyKcV WriwAA/ChCl+MDhwzTsiScoICCAbqhRnSa8+HZs22xLyexyz5/YwUCRLORhzV6jqRya8NyFJzI1fDvaZ 1PeRDqRx7FJHwiCWgRjf OGwtTr/oAAKDQ+m7qALHQhFbTt2E2ImEjwWsASMB2pvfXhv/jAsiEnV6y2+qUDdCpx32dax86h6aXiog STaE16kg9kTkZsRpIhLU Dj+fuitZqZdMcnIRmKGUWjWZHWdKGMXOLSk0Mn3a2yqkPrz5wgj6qEi1i3DMRhTqEuG0ap2Z4ZWBMG5R cb9u7L3pEtsyjh06uWLj wKVJwIaJ4xUensHUwAuxzz9nqC1OAul5YrO83baID3/c5fRf+RHJaylDUhdcmiqP4xfYceWJNU7uGu5o mGY/U4XZRUWgIi7ZLaoy qJlH+eokDvffoex/tppWGuNsZUxY2ZcihDpjKqDqsAnh8u0A0WEXAfNMM7FaloWAMdnIdPcJ2+BzLtpo +vdNCDCfXdyNlim6x93r gv83316px1ppr+MkqVKSz/MNDL8JkDOpOIf5LZXkluT4wkuXzYMPM3F4LN/yrniUzEuYTHwd3XOr9jQV IE7ePZR43oZP9ixrdT2i nMLbVy/gZIyDWm+yzzIKOZMfTHF97XdeYW2ooQqJxVviTPzltL9+BYFJeEDs9IpyXVJm/wpUByTkJZJE 3dJcbaVB9sNSBcNwSe70 +9XIYbJ//BIFBLrfJlZrFOKuyE6rSiQBxwTXDu8vdAvqT/TlNLdkFxRi2uBRuz6WLQ1kN1zI4dMiISs5 KUTe9YGV+CEDWm1ePCc6 eIgK9WVc/2169s3j9q7oaTVxH4OOScUE6WA+w+Yj0F8QVPA0JIal99HJ11mQBAxZUC1+w+D2EHZHSolK NqIQERLaNiDljiq6qeTT ZSnNnjBrxMwPIUtcNw9l77nBZn0WKveyRGOekVAJQgsdyuMiN6uBaHiMSHsq7j0DJ2B9DjI9gF0uOa8f RUz7GydaQf+nurUrUcLl mWQYpgr8F/ydfT1Wf7P3oozuuc7HQxNVnZyNXMt8VWNR9xBcA/PMAcdRiSYymDQ0Ih4n7xdj4Mr7Y1ix tJZNlKOI1oD8+QWVkxYX 3f0OQjKfwf/HeLZ19uylcrUl4mL+OkQC7AyDSEOGaG/LDa15FEgxWMEsmS2Wl05SN4YUX369wfBS7cI5 MAfUP3scQdgf46EejBz+ kXL4SIDLGkE4bFNG4kv/RmBK2RAklDpMw+eTQ89+MV8J66mYIixqOr57Vdtqu22AXICXeUVtj7KGEkVx dISLqsIpTVjOmxUBe4Lo 4WGhdGvew/Pyz7yXK569GIeSUioQWlrfaFSkZsyKYj2KDTbPf9Uy0kQDpzv+2il1ouC9X04M1DlAhKoC 8OhdTksxbDM4MwY0+bNk 36GyY/mGKuFI3CVngqwsNE27k/6ZbrvqdEUd+3mBBuLzPksKRpZuxJf9TMqkQq/lk4nZX/qIDJ9fT8rE 7s1ThOM0z9bz4FAVfAzM WfcT0IdBQPgLJGimItrCd6bGRsv1AgjZzZWQKdF98ASnyIqge76e995x0b/tuaB2AQIErI2OyUGO9tcF dnBk7cQgLhObiR2eXFuU 2m9TUoANi+iv7VRs/FNNHXtFrp0+hz6fGT/UHZqRKtuwXFiO68TVeq1WBUUWEBCtk0+gQEUEhIgKuYwU DPaULfbTJ0ZLtYcMbsZW v43lnR/bn8a5TEMKToCwy8Q2NY9/DIBEe8XbZbCIYA3TSMmY25S4YuslGuOLoYk+z8p/yKCicJ8MS1/K gYsBQ8r26mH/w1FtoTxn uRHuAuLyXcMHDhQ+BbJf3fUHg69FVeFXYHqAOffurqbg7Tru+X+yrUmdlzPePKFIDB7lEs84nvNYntEO 7nb37EpTfFk3/kPg+U4d 7P8fQjZ+LhLdM/ir3UffCaBa9WKOy3/1DC5r+6KonhaGJAIG1fpml1qvCBI9soT4H+acnW74QASshSDR JOvgEns/Adscb3Nf1gwo dzLYgJwsR9CHbasJEdWlCfZWr1rEzr/XEJHzsRRTOFgeuPtObR+pWm9D0fqdSyzlBGcNlaUCckvfkVL1 EWUwjScAcFzbySG4802O o0GgNgeCnUk6U5B6IOPuhabETqflAtdeHo8FMcmZ7aqwBPm1KbDecPGrasBCXEJN1in3GUTonHAKLCxN QKdnmBSzdq6TGZuXBEdA NxgAAFi6wKwAXgLyXiPQwWTafxPYueocumtRhV5Gt6uAWooUr1MSa+X1oFwAWP7Q608J7NT8ydbop2Xc JU4jSu3YD/zlXt3BSNcF HrcTCtTdTFhtMU2bQxSyuzOJ8ouVjAMeXB/64Iv0oatGNz5dydPv4VNjOHaamEbihaAclYzdiNxyYJ0z Gne8t4+YJE6BU55rCC0r 3CeXhPMHmFvPercRwCyClx6Atx9/h2S9c6DSX6kHGoULzlR7MvjZAM+ZsCLcoxbVG6o7yp/D4pGezhKL OkbiaABJmgFley18aeuB x/N6E2MsGZ0IxnjVXNGkUmvRDG7XDsZlEvCkhneuG2YXzFURkklqOw53RV+omczeZiWNFYFM1TRPd1DD Rj/tBVVtSqUFRGVsCn99 erwC2sCetrKAl3ocUjN7RDrZQAzszvwECNENSdRd4DSP3g4oJu4SwNpBBBIlSF4b+D+lhUnKjOL1GwCv OpEnC0tDHwRJdVC9dKDf lS/iFiG4Z7+ckdTLk7teXQh2E23NPHfF6JEmRt5b+vn70/p7b8JfNcwlKGAdqiJyvB0qNgFHQrI30XTh o5wmUkLZfAfT3C/rATi4 e0DNoVnX19Vt3Au28qFmjpzoitK/W000Evm/EajX22s97QgkVkX8D6JHgloTtKAMhKJCkXJRUnDW9q1r aSKFUsBtyUMqVXgSJ5Pr zZdpp8/LEYmFz4QWQBZVz/P5S6LmHH3ntRz5HZd5uuUzeGKCQFdj8gsv1V1DizhS6N/5g/vH8Nq5Cqfs 7pi8r0uTM8bSlJo1UMkl Xo1NTDUh06Hugu6UX/USnomqiuIGqqJIM8q2T6aEEHBtI06aMVyFM7ebn5LyFqX2xCHdhCd5GMX/AELE CZfMWjQIOUj+h4CNnOAH kIeQErw2BX5Pdhfkki8FJ4a8UCSWZjJdd8KikTvHe8aVmkzKJfjMKuk6wy1yX5a+Dc6/YYqtaq1fKkTC 703k+mgV5kv2OBJSm4za +678LarYGsL4WHvSwcEnVUOUYhkjfjlNQD3twSP6NR+gbarK1WnH8zpIfWnRC++PB0/xwuYzNkO15lVQ +OXL5WTrIj3GTTnbMWDY jC8hgySRFpR6FMET2XUJsl8ZAJeeedPzjXzA2PoQV3qXBpwd2JmynA+YvMCWsMYHASoQE4ChvcpdfeIJ tKOv+DH5DRgJJvAyNBgF doHJiune7USnWhyQlIHAoPqXZNKPCUt1OsIUWR5SdRgFRvQop/BJYzL0cXEzKifKUfoWgDfjqzYznAYN bKf10VHDsVJ0WQ5jkTHW Jp7xk+f0TXDVf4BFvB6lOEl/krGoxWfEH+JUCWjWwjjJ3+vgwYkrkEKNpMhi7+kLCFEUoVASElOobtGm 4Isj58ofoiNfkFYaHHD/ nyFnGG6y4+OggUnX01seolgC8FBaWn9bCwMyaDn5+Esdras+kbcuJeBwdPRhKLahV6P9AgHyu+xQoqJARJ7 bz9UggWoyDatoAnHY+6h do/FnGyvnkoxmi7HUvVpzHxux41ZJ9uJrK3u0QBMmm5WtcNmJRIXyWidHQHeR7L+8g/IYs3cqbFjxKxK jcJubd0LM1Zaj/tp29eG y+CMBg4TNNk1ZM1QGI/zQFCuCad3cEXScIp/7GWVKp7L+nWuJOYJPzlwRjMQbpzMlusxMJI6Rt+MrJQ+ NddggV17hn0w0Qjujczv ifVL2GxicHuVT+v4PuNBhjsqbW24POL5cb+/hT1hA4uiO14dBBKi2lFG2nV2nbDHFCqFEKxRE0k63htc kFZ8z1GFQDn6IrsNjFhD kJk90o8a3NrIfEtKYLUvQi+8Te2nEsYBYydvc3oFmFvCHIBRWW/zHtL7r+sysJEugukk1sURuObf17ox 7ezjXQ2Mb4aKQtSWX8C3 S7+GcPR0gl4c51goAE8ybxv3RhhXRNAoxj5ubAssSF17NxIaADZCzu3xgtG+BzNGoZwbXvqEJzXA4fHH LBJlCt4q4LWH/+U+xkmP 8HXgSvOZE3+BSd1ppSj4nDJQCjNyfl33uosEJdWr4RFqiwSvSbgpTZziiY9YIVBUacBmpeQRC7nvl+WELSH vSkeXDLIexsm1xdZfVE6 8U340cRM0jsJlZAevKgahJU5RddBQGGyUWTTU4AdJgWhDuV95KW325EY4wTrvKvQ1yQyDv3ueZSy+RPW IAw+KPiMHo388/T5Mnmg RBri8gHSag/bxBlBgVRpn+DfKaBAjJZoVHVHiu0mra56kbeXItb4kt7izKqafWQtIHOHDnxmVowlduPQ XaiwiG46LFQXZFmZVlwJ mRZpSsJGvVC2MZeq4NTxYIYkSkDU3LZVQAD1GpyR1QnfcUv0Ih7a9HhVeGsUBAWfJl+rBMNOYfYjS43i gUbHbK100OU8bdPM2Tvx DaDDLNJlFSBeCdjZqpY3pYZkYERltzuSktv2amC03eLUHNjY2Dd3ZJ5e4O5puRvI5zuAzcqQ/mMholzg KVNTuh8Cm8XSSHUItDhh rSUXBf1yKIw8q8mSqzaWuV6nYsf72OoAOe2ofr9EQq+UEcebjyt1ZxRJh+DIqqFSXhYGCWnpVOoqIBT5 Ha4tFt47VgN/zOCStZrQ hvyrFMXumLEqnxC2GLvuZyqov3KdT9+2QrI05oHomSDn8IhVrsE0Qf6Yk5wQAXsbX9uM6RNMego8NSCb qyCiY5r2HhZbaPQdpSFf XpIGJZKxB2lvM7+jsF4stnAep24QsLTV04wtd5eirwWUSvnTqoxuXcRgsKEickZW1aimkBvhPA1quN5Q 1C2ueyRT1ehBb//mlb07 dnoDfMclV3QnFvjz3WI6pBPFl9b0Y0hFhpvwvBHzD6/uIkhwF9qoDT1FSSmFTO6Q9YI/a1SD067nXXXP jFr1FO1g9nW60DgHLVF8 LgHCmxSofLpEHQsK9TEC9ss8wmSmM8GXhrpjj5w3AtgRvGlLHzqcy23CUKAx4MryJ6JSZz8c0NZsXnb4 Ny5k+rUqUMVb+tGN09+T 6wcWJCB7l+no4wzyB/LvI9hdk1PjceXFOZuRNIuOcqjlg/UoLry6eajAw8NMyswlqxXUdLr8ETs/OnLZ YUGDgI6ij/Aa8pBQvBi7 Chz1QhwoR2cB80WCww0sC1/3B7cjIRJvWuCtAElJ+wO0sKf2G8ccgfCH9eisqrWfLsL/sHE4rtOW+jkh b1w0984NT01LE5BLUawL iBMgeHTTz+dianne+++xken7RlwvoN2ZQaI3otfZAvXv6CpPC6GLk3cin98ygMSr48ZwNWeky7GDjZsyfoOB H5YMryqccjD26ybH8nvS lGCydIfVM0QfUFR2B0bT+K1w+VJgOXgDz546+wN3xu8zYpzrX4be1gVxh9bDeU2NGBvdZo7arCrzlMZD v7OPxLAQT0ekslCEvGYT WHuOD83uVUxA8BXKf9wQL19xnoguYHPPgJmnCQrVqi12i1wpphN0L+YbhMgqIVRjA1/fyFMgikwJFzW9 DL1q1Ow/kzJSy0Ea4pra pdzJxpSTmQhRkLp4QdhYBZXU9LMMGTDWE0LFg+TsoKdw8RGw8YEHWuq6UG998O13ITR90z0jv+8CBnpy WQIDanZ/I9miwcLOfJCn WpeRWbFtNEszdfUa6Gje3feiSpaaXpmfKLJhpWl/r2nN9Ocj5aEZIYSiGfIFw7+yZs3rFyg8VNfYs+7Y I0RBjqOQ61YhhdtQaYgj CX9mGCpLs3/il3rl8zMTq3C9jY0bVN9e9i0nE+wmMzNKHuRDaaIksRpJ4HJvvBUabIFb5mydJhCUJBiM jgAl8MBDTlQ8ROUScORS n+5XeR/TikzmA+Qo09cUzQAeAS69z/fQWP4S5XgkJOm/HxBSLLIYuOeVzehpJba332K9eMiFKPpA7LzQ WMCRVlZX1DHvszJXSwTw KPX2PDXigVnILpve80CFbDw3l4At7PdPRxrjs2HAXYGaoW8X2L8HJvolpcrHjQBIxFxVzMuw3Myqs0+J eJS/GjqRJVIUPI/I6nu6 e8B1q9TSBptFMb4138yyJtFXcKqApwPJEQqd2WANyqpXtROaeiJJZW0kqW6y7kgbpa+gZQgtCVQsmRJu WWYggBrIEyBAUubVKtWT gskqzfRthDNLan6kzpAjJ1YTY53fEkICXdCUA8gxPLql4lT+SgObf0rBLEBAUDbXfVFKYW2pIcJ7Mcyh dZ+K/vBtYqEpUj5Bqh+R wT8qOx/R2RAm8cFPzJJ8dOtIc+xxRcQ/zIf5WGzCgo3s3bZor87WBC1LcLcZVxfIlmqzYgmjbci3SYa8 K/33gJTFS95HS4oygFVG RYgTIFCm/RGdBtAsU+/QUknUjJnBdQ7z9Vcf/qjmoz6nk27cDnVkwbXev9clyWkcELe9l+JWaWL/0PCK Csjjc4/NYDS//ci5Cete Kl05wqdknZngCFInwD+kDj+Mh8cZ+X6eRFKk+/6X9lPxO9BmA07jgZU4fHPZz/2cKlu8e8f/6gYSnzpC UpbvVLG8+hVDPR3E2niK HRdtC7ToCFaQtKsS6cL0W3SzMPWzZfDgSFHa1Z+mvQpRarYs3AB1Y146UEWfz4MkDQEOe8fDAQuZRj7B sffcFYTYEqLCaxRLh55W 6L3c9j9yuXqC4PC6uJcUCpgJz1O6xMY4IWMC4D1zAZFrfRLJfnIzpdu0bUr66gRTkZLpX2fs8YoeNTsc X4Rn+gfQPGnjtuER/Pmz iZCYPsPDNCTTfZ2vkEQzkyibM09YAYXIwEhshgo1vChk0WDkXRrJvkKzAobSomRlOfnAYPILPHYJm1U7 HzF9wJFSwV9KnpWTIb/S unSBNiqCWRR+ldhCXrN1npstUF/SZosOUoZoS0ECEJXcVx4GZjvmS0klPrLle8eFXvCZdYKOYfg2HcCy BKNyPuKHZkYT8LVvV+aN Rb5DHJvgGSFNVW21mSKNlHwLF3WDzY0PXZcvIiGTSQN1IengY7rbCnkcmdxsN6lyEPrDmCXl7iQURz6V ekAaXM484mmPvP77xYcm 1ExZMRfIOOVYUTdmxKt/ZSoRBmimUIzmLmCqFgpom+KL07sfKmtdWQxJp+aTDpWb1nQ+n67aRf0ueUYU p3G2SKB1dTE9IXTn80Pu CXuBnmmWgfSgNOb3IcIB1LrXz6py7VXWdxPsxO9Xy00KPWZviduyRvxaddAUTGnAtREABLTK+qFHJswi 9QfbUIbec5pIdCxtW7UP G+uIL/SLZXelZdP3f3TR44d+q9mSZkD1UPmFqL/W+GLuO258BoFp12fJEb5r3SXp9KradPUV4QC5kbUN 0r5WwArFi/Ml6ZNf2dRE wxEKSQ4FCWwzyTSJBLEgP3ZezWAAuScIMhDVQlwrQfmGUKPKLaUCRq1ugROAprvEksbYJJWpcA0VRHv7 KWQaPXZazeFgrGMfO6jA /YtMrb/OXGQb1N4ZwCBTE2HBw6Jby8kCqV0mfjSqwaW5TfmZ0kIONyD27IdrJqsLlMBk+a+kDCiO/qQX +7QUJp1bJoIpIHyXqNkB FM93cJE6QxdSyLE5+wpMj5+l6r2EFyzFok75DM/is3VUvpVWtnVptVKh7wSwk+3UXf3AmpDHAH3W4SNU ksJKiSEQTLReVGh/y6Ex pz7brif4Z1R9X7ilyQc3SSmmkDogPzxJ8uWKIC7te1SzRjdFLr8eymDW4BWYSLUv3YguW8RIp1uuSE0k b0lvZPCeD/nL0R/HbflD YzSI58tbz7Xhnh0GGXzVKIPRLa7bhtgcoUedvZku6oUlBCZUnOlBzQXk5ADCWgq6NiN5UtVYG8nXAtpI Dpg/4qI+MAgolChfYRFE h30IQEjOOUObFXEb4TjRQd+ZDjeh65bvwGGDeiKzN2TgFF6+Omnn+jPP/+PRslqlUREzYQ8dpKyzw38S RlMTFfPwgAruxgEz6OEU hHXXD916wD9CaMqZ+cCIJbRnypO3haITWIakby9ZhgipPI+ZuzNjblnYMegtSWXVQr5gbehhSVHtMrvY Ri8LfNa66aZsOdUcOftE erKDwZQiW9a9xmGzvRqGsT+N3fZGpoCcRFPJjR3cc03ddtK5t378I906ASUHQyxH+KRMVBNTEVEtqmsT cQ1skVBlDiyB7vpVrDac BXYNZvW7wOVHUriflk995KPUX+KorLUOMpr0OqSSLqRAKBo7UHGWbxSsbEFM36/6pr7x1p483LJxT2+4 87fcBzRdc2yAiVc8fSk8 Cz1vGONnzMDYi2XZUS6p0vsDASEA7KtH7rLpWXwAnWSUZRh3tsdmx/0C8MWUYnuPYAF116gU5bT95+/r UIWIqNN+RHd1Rablb6tL tOmTZN+pDI0vNxMvD8pOgGfHcoha+uuu+eEObp8FbKSsFBIAigrF6oMK8Gkv1JMYEoXXMNetJRAwIz1s javpGrVqtS+fXsaPHgwC a7MidGLzGHCvwHBPlRqEHOdvOVEQWBcMSKKMBAWdlPPd9CZasBRc/bHOaWIIDxMV8hZMCwUMK9CPkWmO IbxCRYgDMMwjE+wAGEYh rP4dfYJnkLB2ePtPPlJSWwuSQZGZZeU+OPTORMtXREqCBmCz2RMTXK+/EqhYwEhQVkWe2ggiFH1yNQp/ M8O2wrIZAwgvWIAFdRHA UXFixenrKws+LKsx4pB8dPCn1qps76o926vcjt10udkz7ZXA53MBbzsrMRRcfFtXwCEtQHXtUj4yLWNz tSzZ0+nTAOGRk6w+ROPB Vpan79Y73gzYm0mc4uT9fZZeHnlZyUn6LIAVuFqr7kxkoalfZoPgkmJdm5NF8+evvjiC/7SG/Hh9fQRW 9HjV8THQgbdCh16nChdp llGYK04wDi+/fgdnsmfiqctYmnL65lIa/vvv1+GGSa/5xD4USd4o3gd933KILDCQStSv0wMeQgcQLYKp Qlt5uQRRTr/EytWrKDu3 paQB0Kyb9/+mSpWrCjDjvjvf/5Lgx27sKFHPSeQPe/anRqTc7QhVT70Fu0mbPMUv38UbLZLt9EzEKoJK 3GnrZo3PH73rQOs9YMw+ cqEHc1BR0s73Pszlr/+aI95ukW7nOGvGerjoVvS5iPYe1SUmOese2R33nHC2nfOYvIQJZIrO4v6QTGlm lsMmvSlspwph0uiYasfU YONxSXGkp41bHXzVSmLWP95EddFLFNyrfNbenTXAz8r+EcL4a0H768Do5wpU3VImZWWtLQpuebTBymC5 OrRowfVrVtXhUiOh/g65 ekpnE7PIhUTwCkjRLgbUE+++KLyuQcvFrSPm2++HuSFgWxm09/jev/9/dCZqHuL31pILuIiTqVDYMgw5 VTIO95++40fS1cNhnSpD cw/g1yC0Rv268EyqElXqu9qIwqVMAOpnOpuhTlK42o5bNXDE9vCoTCMThspxmptugougT6tx6PfSfMQH ETYzH/NS9xSmNXDhFZIv 798zxEha2VgJMrXOJKSkdRx498P95DS4TbLQ+/bt0+OxyAd+vevNNqWvQiT0VJgAeK5Hose43DKfSWUV 6GHol5yQvVnUPtPvrGNu TJlpMN+3Buc63//+742d9szWea1JN+NXq7iZOUOPNfYQckPeOCSFYc6rGPPuo1wbm+QIlJr4G665RFYl TBs7ohkSoaTmOh88NU29 tvqQT4jfcTXzqooh1+tUrgHx+Ie4jfg/twONoh4qNRRLpAMgp64FuD4a7HOhW/1w3mn7gH2N/7880+aM fJFSKi9NSHfd2580Qa92 eaqMGazsGdjdhxnfJKSbCnoK38IjWrfVnZsK6kadQX7U8uTl9pzkGOenklC7VJr/fXXX/HVoExMJ75QV ZrpXGpXRIMdI0HN3rAKE 6o8KGloqeIOJ62qzhyxu6/ToVNGRTa2gDdevhsv7vQcjy61qcMy5eRmm8ftdfOrAG01VBS7k0dc4CVVq 0uFhIgkYt45Sri0dmC0J rb8tQWLPWC8fA/kg07uJYmytVzJZx0AH+E9wfuN+43l9hSdoeaVR9bd1iFtAWhCprTe+aho8TEMLV6xQ aVwgXgpvUKcDAJH+sWJp F+8ZcUqmLhBcU400zh6cUSfAX9DvWs6w8uTA30eaOrhVPrsE82udxkQf4GjnJtJKnVhfZOBMoHiV89h4 m0fzfmXJk417oyOruVUn Wpr0EGBn6jibdy37ecokzXuW0++9dbPVJUXBAS9eftgJwQp+++/E5oMAKKg1VbhkCigsuX7FI+kdLg+I axs+5MuLVd6IgXlnI5MM KCHwiQxcKNybINtAKDWvCyAZCLYxYhJMGOPVUao6IHZugiYISswRq5i4d//fePGG2+C3etvy38c9ifVq FZzWEXR2LFFLrlLVYfQ0 sj3uairxM9k1Q7gF2M1WnKARp8Q7xSu2n8EAADy54slcEMejw0KjyUSS/rFZQRCL1NmBXiTjRElWSN39 wUdD5wydmfdRX4YI7446 pTDSeVar4fTh4UIlHORTZTi28839c2BVGYIWImXy8/6Vgu5099eMOrhEwNdD/YtMOOXqWh1pbv+33nnH Vu5e+GDW0Zr05hkUqIe2 o762VkwgsO/e/Huzux1EacrXDpvrMGUneHp15Aym/rQIHq5dCgKYii48KtsENwiGCSrptiRSLyQM028z hTSDmRv1lDGuaHhzSIm4 H6rePu64+7EX4c967zokc/ViYa/8fjjj1/1nhKCadUD1EJSRERqCfb2bfWCZlGoGRxPr0n/RZhVe6ZJM GCA9P/+++85jvVUgGiee +2894S3Fj7NNoE12rDNQppagcrZkVsPJqHm985oH1Vf0aXsb71tMre5SMQCVmYPX/aLlp+KuRrRwpdpR JvWuiRFa5YLNTuPykrOm xuilihLegByWHhNBqud7mhaJJZOLcTLynJf2j6jOdacs9yVoyZQOr5Axs6V9xDEJswpvaArT7iXGDMuY y579VHHZxIWNIjnZc2Rw c4Rtuc2869dFcwdca29eOOp21KYIVgdISgtzTFWGleaOhQJVj/s9otbplci9dBujo0/RJw9wKamgV98r ayZuBjFKsPNrXf4zmt71 cVKqGtQrQZvPJ3w3wlEhzyFXWEoS9n0azOZgbA9jjJQYQfLl52cuXqhePkjobI5SkYebnaSfZBEAhkIs Zudqjb3hw4YRF/XHUgnV FrJcm8NJCyYrZJszjXwcaeghkhGzTRyV9bvYL/u5Vd4386N7Md4p3PQmGO9o3B9Vmmw1Lrul14ROWNFm QrVZcuWqdirQQvNERA8+ bsBJYvmfqhhA91vl0uB2SnChYblnVDj2T8iV0ls8hmhlihpS4IWFuuPIo6jlewDks3o78oYArjB83VDV kCutCaANMjPk/fy448/t e5gisy70Gul28/pxIur6gl7kIPeqNVQveEOAstfcEitPRspBJ7CHfEKzPNV+EJae/I4uQ6kt/ToIeMcg R4ZR/m4w+yg0XLOTB2Eo P4cGWNiIzakLFjuN54iVkOcuIz36Vf9U6giLaYaaYQ5ypIXpaFFCgbomshBOqO1xj4c+q8aO42jvSYf7 G0AlERHnhV45W8rxvJif +tyAwoymy0GkneWVw+xtCi4KLCZS1f6kSXIRcVV/hUI3t1Ag7pOkpPcnHNzGb0ovRvEPpgC3BiiXNv6b Iin7wgRH23n4hc58Ps8+ zGtJi5e0keR3q89x+XV5778Q3yxsgkOhpCbG+euwkcad+l6mjXNGQcm9V9lvfzgVt5d96AWwseRv2Geu b++3177uwXVqq4a0peNE p9tt7CAfn6Z624jI2h4xZChbORhz4nLpq58PMC5SxmOiEx2CfpT0ceRPDBuoKqs0Nu8ZkZhh/112wXCO ycIog83TAW5ZCSQ2npPe wZJULqtSJYQ0a3Q/4Ex3BrsmJqaEd3IkoSr5lXpgu0T8JzdfwCYPAHOuTqwY6BN2otZKbO2p7sCBTW4k 5cQ/eD6N+G+wJe16yqfQ UYJ2hamTDK7JMwtrvg07f+6hGSKV2XzKJS5ViTmRg7rmCEmqGFUgoBHATCo7LBiJbiMZKqvxoq20p5t1 aHCUPftj83+LcZ9F604O +jEI8rm8OowlSen49n1s5DQdnF57ibkvRJa2/M8tmp9BLvK5YUAhaZ1ZkgXMRRXfvLeUjw3EYLBcLyup ewLXpvxOmLEiBHKZ/Yesenia 83lKkfi56+YKu8wFb2Q9938ihXTDTCCK82WIc8Hr4KMNznXJBWjSy2jK223zoHjERMwRk8fs+uAVYivf MxlkmXVxcd1fwtV94DoU BOIaq0k3GDXgtSB97aqjBuWq7vb98u2h+DzySWMRU6pDvf/L0HOgN0OscPLJ3QUE9w2j7gZJp/YW1D5g kzcVq37pkyHlQmPsJw0d QPOBZ9cCLEFQiOfsmNNiGme+/IG6CyGTOKItfFbk0VJnnEhYeRVPdiNvqg1581qnMxT1nc6a8i AKVL3j8qK455Juoe3+z+ 6jFFitsYnLLLltVCREeVVJQDyuGcziR9VJVRrujbpU8rM9NSzJBaDZK/gjy9kiCYb3rDwyT3ETN3F8SV FpUyme+TV980JLSEGG0W HCPIg7Eu5o86bshVz2kQuW1xsOmbOqkkckYLj14A4qQll6PvzJJsqaWfHOUaYiqWwn/Rk2MoneQJKuR7 ZB2PhZ7pe8tdiRFto0TL 1S+iSwyx7ZI3+bNSWjbKkTStNdbYHJt/T1Cu1U+71QiDd082LKCdStHQbyMknVblbit6vVU4sPSGOE1Q XCALYSX2nSk1PK10eFQj kCLf0lXkZcIsvYmrfVEP3/XGzISR3lghsYGeEjpCaxZQZokwI96J5+9lRCf1nXxKjezmryQBQhtsPXo2 YXDhw/NkGQ6rWLxsW6JY JWYcUpuARTBhGnPStHeD9ydRCmi5WmyXo0i0rx7v56dZ2GPAxs0cZwSCG9W5g4f2itNxbhgPJUwQH9ix C379+4Ccdt5pkIKxyeiS CwTggF5sje1AlVDna4nvEPF+liYlf2Kzx4kJHCn9mR07zvazwQiQYHGhOG82fniaS0Fl1rtiqLwH29ol MLy2aN5q7IYxz/kmQDBi aDQcVY2jlvVcEDAqk1bPuxisZaaJ5721jtLPIHF+pC2BWbOfflURMX80UR6kRfmS5bgit2SOD1dFvhGI ZTMLlgU5tPTgMTtWzqeM GQon+qiN7kU21cq8kPMoQqDfNeOlYwfCXpi0lSfmou26B3eO/sYgsQQuwiQ6d1gV181z/T6U6rAnEANI c2+O4wAkut5VuQi2YRY7 uSeati0BfpsIDbPOj6TrLu6cL0R6Ca6vgd4yNk24j6oFXg5XeiNbxuGUCGNidCDZx+5oNamjAIN5ZuA0 W0J5JsHj7gU8r0s2KU19 xpbiO4kccJBgBejVvHGRJXxJv7uXG73bGOYkjYRhCKTfdum+WZEecnQjSP8wDaWHlZ3ZydvradccE6sM LDXgCqMZ0PhoNEJaZ9Xw Jc54RQvgrvzytHL3w0xe3v+Fw6vGD0358hd+smlAkdhOUPFlB8A6XFJFRWVK2taaYCQvVCqoyQuIZOOo fhml8ZfxTe/jTPtBasva TuTie857zgVC9mu6W5c21cpLijwaLvS4egunv1JdXlXOIXZEiMdcEdymRJ0YMcgy/wMtCWtIUEqf/jhh 9IPctOyQTeRrqjRrQXJD 9nlO7NbvKQarhEUb8LBpfXbGVv+g7TWfIIXMLEM5j8GluSxDLA/bmJryFX8rfmHRVaLjXsgwRdOqf1w8 7XlNfYNJuvAqbflCddpb AftEnDIN8DBRCr8tQm2uaQM0Fm2gy3svdvJhDU8355rmi8YMng/o0Ff/wGLWrRnoXtMOBJNEmtZ8JZNb Lk8JyPIrw8DUMgqTL3DV 7070NUjMSKixr5vW5tD7pFpxMsKJdVdIkOepTW0bU86/NTenPwTZrwwaXWG/BDO5RaAuiItRTg2Fg2qU F3e32LbExgwhjUYOrKCR a9TkN7EGcTe3bxFSmpTSwp1bA2UG3Yylb65jako9aqkELTicRewXfVqccs6MvGjmTsgDZIt6tdhv2bBY iaF8WzGL6djvCN5KdPWS lQRBVykks6BseIyikCAIHzGXGbHRKuSmG3Ry21cZSdtnel1gKcCfCXTuza8KaMIjN4r22GhWT4LnstMd 5O9CWOfh/BckyzFeW3Xe M42YFAB+clhE2jDYJzvl4t1Hy782GN3QmRu6UrLfORFUdXIP9Xo0tDRGUQtaxtXzEGy8GpqFeuf+ySwz QAwrEmvfJvStFaqf95QW EaJ71W5FdEJq3ax5ycesHMIEi6nrncjpaQtDH4EiODwTsMjgWna5lrQcVX+tsPBAiih57mYVnSfg0XvD 69OD0QXv4Cj97AVkhA4j /322+XW09+DwMpwkVpUHl3B7fh/4GzGucazKmKM2X1shTXXv9/ZYzXT9/JxEfcb5h6Sla1lGqme5Bbfi XcczfH2V4/We+DJ/Uevi FBlt0d48TfA1gpndbyIr++6592fym36JpD5Qk8VQdPdzXnU3uvx3xjwl/bKmAe61DETOE4Cl3B46rANq HZSeD4CWuC0BUsnQ0dVp CHPLspIpkxGCWFUK9YHirTg+HhT3fokPetkK8GtnnRefcnZMEPdu4ROBPuzM2iTvoLipZhImhy1S3Fqr FjSh1LFBz13KAaP59kTU aeVobm6iflrNW92xBQbZ2EA0ingbi3FvTdoLSwe2LkluWoNGqHHnErBpobe47fnGwnTh1/c45IskRawM s3z9l1lbustZCZjFuMOG es80OZZtplxMDAf0aQj7NL3kF3424lr2XMwyQLX45q98IsN0qZt960bAQKVHZRIWw5AqgX6VxJUgZpuU wzodcFckdcaiNcCRC+ei SsObwK8GkcYG6OAS7jGHf3MP+/1sa+58abRmU0TcQQpC8S+ZA6DuHNfT7CojGfgahVwsjVL0BkJ9bSTW JLqPbTVnZ5T+hDQ8465G vw+pD9a8eOIlIW1h1plEEQg0EOx2bV6MAtI68vi3+5MhVugEU4wHWpoxpALFJj9pkm2gwNuoHgB1+KqU KGCV/bEa4yyfar7lBlUC JcLJvoD5kMizRbtMIlzORmaW9cC8mgEbLKbUZ5abWjj5f0lJheyQK9XgvxtDnBxDeMjM3i1lcr4M75z1 lTonC0qUXtXXV6aRlYjW EYYD8B+wUD0+7CX2FibUtpA2srKuWQXLJcEe/Ja89IO/a/g6uHoqwK4hoSk0u+SU6bmvH0RGTeiu7nZ6 X7JMBvJv4z9YaRM6A7EU +L5z078tAFYlVYAofOfD1m///3cjdMB4XYAB+N3M0uyAuGfc/duEIiMYftPhajJwXr5q6XCSxjsiwJoK s7lcLKBqRS65xe+4j7qF 6YouXMpdgCAyt8Bc6zyXPPjRqwr0UKxCwKDDG7OgXcvfGwpMSa4X6kg9aoJFseSmVLE9F1yJP8rmERe5 Au0VlKisjKMzm734PBeM 1gqYF353lCTJdSdN04mqtPdPNuL1FbSJ3ha4subHiTq4Q+obJoIVsHrkVS1w3O9cvrGWqb65ZE+gxVr3 UuXIo6z68TvN74FK3JL9 Lt4XUMJhjDJck8MkgCQcr6P4dU9NRzxwznwkcVeGH+I6w0v1Nas5XYVQTYgUFpGsUR1pFrFTcJhOXIu6 2mkk8Lnx0fScnTjXuvg3 bERYVXZL0ASIQwJEcTCmLZRAv+MstbZXKZOckTXViQVbf4y2ZuXUOYvnLiWVNMlMQojs6CEcXNSZ9B5G Bu3sPAEsQVCxlDWAmpIG PiEDF07QLumYRIwLHDyHo9PPpnjnWohplBQNEU7zQWgAPPVpryfb3adAemwQ+cSJ8z8XI3f2P+Ia0D/M Sur8MeZ74oSe9N6Ln6eU VXGp4GgvC/efyaXfyOcR1G74ViaxmtQ5wjhQFvuE+4f+qxFK05+JWul9qiqHVXgNv5xTeqflNGaM+sbx PK9wKLn2IlCCjuz5yeXG syiFyo91hac9kXlWsr7d9SGh9EZQOi/ji0Cj3M+IZ70vUtVJ5PutBs9b+NMPKbxtY4LsMFUQf59+xpMn GIQsZXCCxfYvWlAf160j yNnGXjBeCpt3kBdnk8xVWmWNKRwL3fZgj/BkQ0eXvzBzxD+tZgnk3aMxiApz5nsdXTTwyy3//770hQYH 8CP08CYfqfCFHCnAwK/G a7a3kR9u2mK3VCibFOszTJ71/lcrJOS38MtpDdz01l0cfF9iMULnZpDfjQc23BfoU72gJmtYd+X7YGJN jndAIObiedrt0RnXRe8I vdjCrSpjhHAbZnB6fC+2oTkuDdto8/uUwzxTcZcEGZaMISpKVd5AZS+A7UizNoQddE7OciEyaBFRdCnX BCGYRjm+oEFCMMwDOMTL HBXbqJCj8NTkgFYa/lYPiQCEUvFR8jZIVnATS4UYjJzBWtjNLOiANKcpQ+gVCTPdeN4fjDZtiMW5fDqH BiGYRifYAHCMAzD+AQLE ZXoCEJjIUCwJUZyVlAUwIYYikTUZlRDomUPP7BSRWhBMEyEEFiFJBrnCiyLUNCyYJ0zNsRhGGS6JGhYv fTOnhk3AfNdyVTA+fn5k b+/n2lwK0LZOxqJzfzbhJWXmNKAilBKschRt4yYWsnU7n3vhsIrocy7ddpl6gRJD4tyJ7len22fir3T9 9xzD/Wc9rEqLpslHOlvR PAlktb44GO+/RzgS0jkThuIdmEafOxf5Wf4AXkAACZ9RnaMtn4yHz37IZSni3iwgTs49nEJ+bdq1Yp+/ cyjwnnv72+yk2yxx222V f4462715khvEf0c486/PsuCeb3kXY7r8hnrbs0tBVtK3ly7M2gCyXqzF9sB2dC8cJqQLn4W1+7I4fz/N WFH7LMAtPxSBkRIIgPcQ YpQoUKFqG/tlmp8I1vT9zxPv1HrpQLm63DPyu+duwvvxKLhWBlOJAXCzvFx48TEV2hl3Cltm2xSionoh QTAALwNmymnOu2ADa4KM GnJIQ5wqMVCPjX0Mz5XR8mtN5nXJNwdnaqTMHvBOz+mW2+5HIyViqSz3pPXQ3Xeh/lppo8osTpAT+kTM 4gDNZR3+/btjX79+hm9e oUnsL21iEOQ0ALTnm2XgfMnBYK54+ap0L+FjSf9wb7t2j0614MpmsO6SycJVZKTvToz765/j4OVDF8dW DDQEIJYOoRPnjypUuSkc ICLxt0tMC1aH88KxqOmTIuzbzJeHKyMWg03JOe1K9+VX3/3SnPpKvn7osLB2TiCZwfifuyE8wsd8dyE8 Xi7g0ISdEQsyOw2PtQ2x fvs7+t703gcAnsXc6/7OqUFQJkTrfvuG4fBEIxmyNQzrdIBlno093gMcaaCNW9latsHYttdClmw7bYeV OpGvbLwBzYnSvzIWc7cI em3Eust2ugG69KiT4HkjoHRTSW6iq0paCtXiOWeS5bX/Si/6ztyMHBlB3/JxWr9rG6ULgylE7c/T58+K oK5fCiCx9dDt5WVeLEi8 aoy/M561BPO1PC0VeGFMBtwSR++LX5HHzLJIKWk7CT8X+ZF57ssJu9h+LHHHlMpcvLXX3/IrrpA0tY42 Hmkm2wRsihcdeupxsPsk l/Yqx7JbTgRGHxNhk33zDB/7xAZYuWEI3Gfmv/1k08+UTEmlSpVuurhIPzLL7+yhBBJiMOgif6TLU+PK 53IJ158H7ct00EOIdjhV DvRxM9pKX0AG7D42Fp1xZkqAGQWvi4yQC0//NWxo3r8ItRFSqlDhvyADzXxX8+vChGEPoKG1yj55NDJM yFaNjtcQldDpVv9QMO2r uoIN849K3WHqGugIliHEdJX1jCLm9D50MMsSXutHV85qxNvId4BKSxyh0lXQfQDWnYteC+q5bJoh9o4N bek7avdB7IVKW0Ffsvou HX+kqStjNStlBn3hfnIpcBIr1H4f5179g4hCl08k7K76Nu6GDKoLYhvA8y8C//8c+EPaWDQa529LFwf3 2+/MFqukfy9ipnE59mxF uvmZkwX7UWZTtZ4xYwat//4bxqzq4XKUdxq5bJjZndrMNFdvKDhqQajlchWnzPL4BwRtqvspdOjaZJyC AmGhiYbIpWniFszLdB48 BQp9KS7bOdkoV/ZmRQh6Ap259bP6G+++pom7wrEfZ1zqONwngkygsNeHilrsqFsTbOmBJjfvTBwoeGf6 rUM0WPaVDcBq88FzBPoO QeNBc/D1bVWsqHBoVGyszEC/O9//7Mf0CXmBgw5/C3HVC8hO6SsBj/LcNfqPUxsqVUk1Yci27IDDPhOQ kAA0oSoi9xroo8++KGxd QmV0HqTLxNb0uargEfn20jAc7Vil87eM6nIbwhASFlKK5FsTGevuYj5wrYadRpnqEn6VvgYbWClxp16F vADI3RNUV+TI4RtJ0rPA zDO9euHfpU3oNMFtbnG2BQUg9E0a4KjXNXdE+7/+urkOWy9qB/36glGdAAHXeG8//97PrFN0v5ugfheO uKFsiPzELZ9FDTveMrHW Lk727JqDd2vPVGvRF2/BMAK9grPjSKKc8xfYbip8iyMo1ZITNMBmanq1EXfmRNs2a266lASwoBUF71+z cXbQDPFZjEd12qQt849u 3fmQh681noq7ZUOmeJXyAHMwiIilUrBw/Jm8pLXAGRYaqZPqb33KYk4pdlpYr+1DcQyBB2A3UJwupcjj 12e9/7777ftx/UG02qPL DYikveONdnl2YFAxfMssdprkEODGkoOpDRJU1lXJOQTp4wmMNg5+oigFra40jXMpg3VYu3jpLNlBrWOJ cmvCiB0oOU/p7nD8LWbj lwXr1zup1532kSZWu6MbQOVtm8kYqYV88rlnIcs2T57lNCxtniCDUdoJyb7wAdSy+zDdCBV56qwhYDo/ sj2M6ImOHvjBPSscBY52 jsTIKhHsP+QN01JEnCozdTPNCZREbe8XkIAUaVM3mVusc//nCdBG86GpJQqOkwc2c671zR+U+jiOG/wL zMOCTAnaVSb7ycrvq8pL UBW442gytZobUwGid2xuSORH+9p14TU3w1QVm33KIm8mhJN//zzzzKsQaWP+LwA+qm9acHTuHxm/LTDS 0jEFKP5Rd6B/mULeYt6h 5wxefJkl/i4QCD4Eer+/Xn2zlPYyik7hx9jUYbh6p957FyqaEFTO4xrHRu5t90dMWAlmtn++ecdXou+R jhUltYGgwaCyNGxAJVm5 33mJxs2jnNK2d3yMDY9N9xOjQbGZeH3AkJaRJSPiQNvex2JldMxbR/+4d0AGnOWR3Lf546NRUlA89buh 9xaXf/+/VUqE+u+smXL2 vzQkJzhSoAAHA+y5VfSo9/RvNfgiqBVllAuqzDVhV2MsTvWI51ATI4GmZ7qmkjp23TmRWs6QEE+QaN3h G6F80Mvg/QQE1cgHRJtR vv5acLBMs7teRHCDTHrbMtzfFgodWwdzVIXdMBadbRWc0cqspobFThIFtZJaYONIYnzjNHFxTHTI8UNl z2ygBLLF85CW3LirY8// NS6Ux1CW6/V1wUaAoajUQ02pk8Vad+KoarrMH19iNtoNc2nPvhq7yFOkLXJSET//QWVvNcVaWncOb4u8 jHG1tsPTpgRbtuaaCRFW 50pWspG7ge4cY073mqHw8YgBwgIdxBUV/TLL7+ArC2tBH3t4wGIhFKFHaSnPYkk2ap9i2Q7YUSY63QAf sHV/nuNTQjY2AhdMIwJ0 hjadxKzjPhyH2enu2pYgy+rJjYcz4y69v902gUW8YrIP51UKlpwDPId7PBDLrxUJdh9TvvYokJ6sUUW+ 1XBPjkSPWLM9D52HPqnu 2iMemXFZM+4pveObdR1A0FJe4+fU4MzaZMEAqptb6Fm6uB++nQpjic8CrzClYY6fMmmnQGyrjPhTNxKk vm2GnVZLWbZkLwhVw0WD RFJB1BBaTnaNyMJOuOn3mU10Rx7Ln4d9xJeHdUqXKrt9glUWsTtzptUiK+Hj7Dkvf0++knmc/ToURVjg dpPx0FGnl2lu+6KcQYsu Xd1DY77SOGuMszpG3Be7qhUD/wuK16ovHkpIyGlyTBbzNKYkvYrQHY58mOsaQFqDvQ2IVy83dPmwpXM8 XhcY6k754CeNoSW9G/v7 PfpOCt7roZe2GXVQHGomWlUtcAFJgmbCG77XFAqYC/H4ebCiqIAyo+KCrB9iTkujYcpzsRRURSxwSBhb bMtvOVsFxg25OxAgOo29 8piMPh6Hz7HxVzsSkgrORtFkUhmSk7dxykoRiyjJoHwewZwuxYm8NxaxQdjo2Yhg6LQVakNUzfGZ61Ne KaV1vJsCiCVxd5IuZvcO 1By3yxw1mRlNXh8lmAfvwqOJF5UF8+yH/mHeGcIwPzoo4P5JIxdmhx4262GJ8tBXiKKben+rH3KO7k1E z14nMtk0fx8BeOZzTsKl Atkinson/J2C+KoPWGGy3ySgzGku8dw8oH0p7qxzLnWKVrepl4dHq4OAAVMwsrTM3LJWPdDQ3HBLb6X0YUeACK DuHE27aMQLDNPZiCPoVM nkeviUtfWoiTkHEysDB6pJk5DibqOgVphf4N8MGAXBD1gez+U5caNbtqgsRL9Q7UZYzNRV3D9VCqhFPQ OXhmdpZw9rW9bUMzzLsb IjWqvyJUcqtCjChpkjwHUBeVzcylfEkalYBaAlIEJlR7cTt/O9WYAcQYxtcqJYXazl4Odn43w0ts6vWY 1Nu7X+/eC8Mbf8kZXxvj XXQA4ouCLKCCLZd1q68g+0M4wDqOZnQ6WqbIJtSA2XbZDpBUXfWJ1Al6KWaGQqi7gVRnsDnst6JFb7Nx GlQcaExgXtRpUoVWSmhG b1NtPegD6/ijDkhDRC0fuDByCTKkJb3JwTCaCCkK4ip0d5K3vnSzMjB7NqbSyvZB/CBEBYalaygMJESz 5Gk9wmp2FlT2LjZjNUDZ cQIc7781QypwcGTIQFXEeJejMHaNIBdLBS6CweydUapkoTdpecQWYeGQRWPvNV9Or7+pgl1cAy4S5v4l lb49ju9quGI3PgrvVLNQ ++ayxTBAPJ00nXuUEk4pLvip0SHCwr63c/Xgqefa00TvpV81CeZ41RvHygF6H3zz8MMO7EZuiFYbmtW4 GB9pZX74FTVQmdWytoAM 2rBLAyOmqpU04iycqdpW/uuMJjOId5+1gZom5Z7a4Nd+wNtMrvdaMObTkrjNFDuconoSX661ujHYLErF Z7arHpS8+oN7Svg4dpRH 8Q7G/l70jYtWtoa9jI9mQqa0VsXNSS9NEPHgI9v6OO3ApiH14Z/2U1b0+C4kiXVmadZoMWFkjra0PN4/ 8tvwUyn2HrMb9Y3seUfK cJIo3dSWGt3EmLuFKkEh4WI5ssAXax8AOiFwdsjaTt3UlA2sY17FnG3SpC9YVfF72yLL8dyMRNnq1F5l nRheZfagp4/6RpZvx5FC 4VfWXvyU9pWNCjISXkK6tsWdICe9Op8OSG/6YebvsxYjrYRQCdWu45+sa71kzy09i0wGDju6pYQmiNyb loDidafSpFducHBlhtCE C56pQ8UYL3LDZFPLS5XrYWL5GTqSjEaFE/M+6TdDHCwH3c3xPiNVe1PtBbKgqkleU/h0uBfynWRdnxYI K3oEA1oUEtKqSBuHX9Xz huutQDR1+nQRVPxKvzvuFaZNJ7FAtnnE0mSCw5TY8WEEKfcmOslNarkqcrf4k/ElwXnDHchp6757nfIE jQd5bxFmIVRF4BLmu/+K I/3Fk/mQmC/n3ez4wbsmiKJI7DHEk43R7iDP8M/hblbynzDz4qtf7RhpZFMjegZ19CWF4OMxTZd0zaHy DtF5lvVtvMeeqpn8eaHB NjLLjdjjTemWfJQ1a+jm8S+sjY5vn46s62p7HIcFbzuO4Occ9yzPhECduY0HiF5gZDqC8RFIXCfF1gIs UMHp/1cujV5eP1m+1t4+ +23U/pb3vR3I/URJce6vbssSLkJgDP09mMPBKnF9k3s29LyUbqOSWAIObYgG0iJms0ZmqnB7lNpIDmXk rGu8VNADHHLekxRscYbu n79+mxTAKvRru8WGErFMg6HG57A6293d1ecOGiBnJkcd/fPOSVm9Z78H6Wfsqwr3sozw0rTZJ1mLIkPI YNRfLM67zuae0HJ1lmgH FJHd0RdO5sgtGyG2reXo5K2stDakEHBvZtbBrNnXWl6ccSBeHuEMjakfLl5bvV75SdZciAbdeJ68uFix O4c3R/tTUHOmTvmjfr55 7xhSF524qsQ955dvK6IwNPXvJWH0ECP04D1rznJi7MNjMGd+xj0fzHMW/oyW0vL7qB8tx5b9BUnwQaMc YRngN/iCoz/7Q2S5YL/O 2HfMh9p0U9hhqcjPIeOqlriZfCFqcjxWyXvi/cB9Q+6LZEG6/VpEmaU9HysI01pMRFj6bCXPFIglRDVI EIJi7/5s0toimqmvuCvM cw/A2J7OzM7DHn2mptanNqK9PchPD6OpVdfQtSsG3Y2yB45y9ZtqY53GxEjKVjfcOX/FND8+/jpd821J 0/ZMGOCn8Cqrt1eADHKt JqMLiBM+vkngIUHWn+wsGL+MjM4Ivy5HCgiesSDPMSFSfu6sXjkVsfGIwc9alRMf+KsvGzIDa2w04dTv abnDXoTGZbt5IFNocOMj idYgDAMwzA+cJVKBZsT9DqMJMbNRJxYfOVzQVGyzYUx/6Lx6RVLE451UHATOVlHIwVrFvOY></span> </div><div>
</div><div style=text-align:center>
< /div><div><strong>Patient Name</strong>: <span class=clinicalNoteMacroWysiwyg id=[id number] macroname=PatientName spantype="macro title=#PatientName>ALYSSA PULIDO</span>
<strong>Date of :</strong> <span class=clinicalNoteMacroWysiwyg id=[id number] macroname=PatientDateOfBirth spantype=macro title=#Pa tientDateOfBirth>1950</span>
<strong>MRN:</strong> <span class=clinicalNoteMacroWysiwyg id=[id number] macroname=P atientMRN spantype=macro title=#PatientMRN>[id number]</span>< br><strong>Attending Physician:</strong> <span class=clinicalNoteMacroWysiwyg id=[id number] macroname=AttendingPhysician spantype="macro title=#AttendingPhysician>Sarah Coto (Gynecological/Onco logy)</span>
<strong>Date of Service:</strong> <span class=clini calNoteMacroWysiwyg id=[id number] macroname=EffectiveDate spantype=macro title=#EffectiveDate>05/10/2025</span>
<strong>Referred by:</strong> Dr. Coto

<div style="text- align:center><strong>PALLIATIVE CARE INITIAL VISIT</strong><b r>

</div><span class=clinicalNoteSectionVisible id= [id number] internalbreaksection=false originalname=Chief Comp laint recognizeconcepts=true spantype=section suppressempty=false>Chief Complaint (Palliative Care)</span>
Establish Care

<span class=clinicalNoteSectionVisible id=[id number] credit intern albreaksection=false originalname=Oncology Diagnosis recognizeconcepts=&quot ;true spantype=section suppressempty=false>Oncology Diagnosis</s nava>
Stage IV SCC of the cervix

<span class=clinicalNoteSect ionVisible id=[id number] internalbreaksection=false orig inalname=HPI recognizeconcepts=true spantype=section suppressemp ty=false>History of Present Illness (Palliative Care)</span>
This visit was provided via telemedicine with the use of real-time audio and video via [employer]. Alyssa has provided written consent to conduct this visit via telemedicine. The patient participated in this visit, noted that her home health RN was in the room however he/she did not participate in the visit. The patient is located in their home and I, Dr. Carol Branham am loc ed in [facility].

<span style=font-size:11.0pt><span style=line-height:107%><span style=font-family:Calibri",sans- serif><span style=color:black>History today was provided by chart review and patient report. Cancer diagnosis began with development of acute renal failure. Admitted to [facility] with this December 2024. Found to have cervical mass and bilateral hydronephrosis. Biopsy confirmed SCC, PET showed disease extension into uterus, bladder wall. Completed concurrent chemoradiation with immunotherapy, followed by brachytherapy. Admitted with complicated UTI earlier this month. Treatments have been through her local Oncology team and [place]. Anticipates a follow up PET in June. </span></span></span></span>

<span class=clinicalN oteSectionVisible id=[id number] internalbreaksection=false&quo t; originalname=Social History recognizeconcepts=true spantype=section suppressempty=false>Social History (Palliative Care)</span>
<span style=font-family:fidel Peckserif><span style=font-size:14.6667px&q uot;>Living Situation: Lives with her who [...] internalbreaksection="false originalname=Medications recognizeconcepts=true spantype="section suppressempty=false>Current Medications</span>
<span [facility] id=[id number] macroname=PatientMedications parameters=ListType:Bulleted spantype=macro title=&q uot;#PatientMedications(ListType:Bulleted)> </span>
Per outside Oncology note,
Carvedilol
Loperamide
Miralax&l t;br>Compazine
Trazodone

<span class=clinicalNoteSectionVisible id=[id number] internalbreaksection=false originalna me=Allergies recognizeconcepts=true spantype=section suppressemp ty=false>Allergies</span>
<span class=clinicalNotC[facility] RehabilitationoWysiwyg id=[id number] macroname=Allergies parameters=ValueIfNull:NKA spantype=macro title=#Allergies(ValueIfNull:NKA)>Cipro&l t;/span>

<span class=clinicalNoteSectionVisible id=annabellaio [id number] internalbreaksection=false originalname=Review of Syste ms recognizeconcepts=true spantype=section suppressempty=false&q uot;>Review of Systems (Palliative Care)</span>
<span class=clinicalNoteS ectionVisible id=[id number] internalbreaksection=false or iginalname=Palliative Care - Pain recognizeconcepts=true spantype=section suppressempty=false>Pain</span>
<span [facility]Not[facility] id=[id number] macroname=PatientPainScale" parameters=LookBackDays:All spantype=macro title=#PatientPainScale(L ookBackDays:All)>3</span>
<span style=font-size:11.0pt><span style=font-family:Calibri,sans-serif>The only pain she currently gets is at her nephrostomy tubes. She will take Tylenol at times for this, 7z214mm or 5e864ga. Feels that currently it is not severe [...] id=[id number] internalbreaksection=false originalname=Appetite recognizeconcepts=true spantype=section" suppressempty=false>Appetite</span>
<span style=font-family:veronica Peck- serif><span style=font-size:14.6667px>Focusing on eating smaller, frequent meals. </span></span>
<span class=clinicalNoteSectionVisible id=[id number] internalbreaksection=false" originalname=Bowels recognizeconcepts=true spantype=section suppressempty=false>Bowels</span>
<span style=font-family:fidel Peck serif><span style=font-size:14.6667px>Has been constipated, more loose stools now with the antibiotics. </span></span>
<span clas s=clinicalNoteSectionVisible id=[id number] internalbreaksectio n=false originalname=Dyspnea recognizeconcepts=true spantype=&qu ot;section suppressempty=false>Dyspnea</span>
<span class=&qu ot;clinicalNoteSectionVisible id=[id number] internalbreaksection="false originalname=Coping/Mood recognizeconcepts=true spantype="section suppressempty=false>Mood</span>

<span cl ass=clinicalNoteSectionVisible id=[id number] internalbreaksect ion=false originalname=Physical Exam recognizeconcepts=true span type=section suppressempty=false>Physical Exam (Palliative Care)</span >
<div style=uhyy-cpibv-qjyy:none>General Appearance: Patient is awake, alert and oriented, in no acute distress. Patient is dressed and well-groomed,well-nourished with no evidence of self-neglect.
HEENT: Sclerae anicteric.
Respiratory: Normal work of breathing with conversational speech.
Neuro: Alert and oriented, no facial asymmetry.
Psych: The patient is alert, attentive, and oriented. Speech is clear and fluent with good comprehension. Insight and judgment appropriate to situation.
</div><div style=yqmp-siigk-paia:none><span style=font-size:11pt><span style=font-family:Calibri,sans-serif&qu ot;>
Comments on Pertinent Labs/Tests: Last WBC was normal, Hgb 8.8, Plts normal, GFR 43, AST/ALT normal. </span></span>

</div><span class= clinicalNoteSectionVisible id=section_[id number] internalbreaksection =false originalname=Palliative Care Assessment and Plan recognizeconcepts=&q uot;true spantype=section suppressempty=false>Assessment and Plan ( Palliative Care)</span>
Alyssa is a 74 year old with metastatic cervical cancer whose cancer directed treatments are currently at the guidance of her local Oncologist and [place]. Please see below.

<span class=clinicalNoteSectionVisible" id=[id number] internalbreaksection=false originalname="Current Decision Making Capacity recognizeconcepts=true spantype=section" suppressempty=false>Current Decision Making Capacity</span>
<span style=font-family:veronica Peck-serif><span style=font-size:14.6667px&quo t;>Demonstrates ability to understand illness, treatment [...] recognizeconcepts=true spantype=section suppressempty=false&quo t;>Psycho-social/Emotional/Spiritual Support</span>
<span style=font-fami ly:fely Pecks-serif><span style=font-size:14.6667px>Supported by home h ealth and multiple loved ones. </span></span>

<span class =clinicalNoteSectionVisible id=[id number] internalbreaksection =false originalname=Palliative Care Plans recognizeconcepts=true spantype=section suppressempty=false>Symptom Management</span>
<span style=font-family:fely Pecks-serif><span style=font-size:14.6667px>Pain: Nephrostomy tube related. Has home health [...] spantype=macro title=#PatientFirstName>ALYSSA</span>

<span class=clinicalNoteMacroWysiwyg id=[id number] macroname=MyName spantype=macro title=#HinaName>Carol Branham MD</span>
<span class=clinicalNoteMacroWysiwyg id=[id number] macroname=MyRole spantype=macro title="#MyRole>Physician</span>
<span class=clinicalNoteMacroWysiwyg" id=[id number] macroname=LocationPhoneNumber spantype=macro title=#LocationPhoneNumber>[phone]</span>
<span cl ass=clinicalNoteMacroWysiwyg id=[id number] macroname=Locat ionFaxNumber spantype=macro title=#LocationFaxNumber>[phone]&l t;/span>

cc:<span class=clinicalNoteMacroWysiwyg id=macro [id number] macroname=NoteRecipients spantype=macro title= #NoteRecipients>Axel Paolmo MD</span>

</div>

<div><span class=eSignSignature>Electronically signed by Carol Branham MD 05/14/2025 09:56 CDT</span></div></body></html>
--- OUTSIDE RECORDS SUMMARY | 2025-07-15 14:18 | XMS_ITS | Clinical Summary ---
Author Organization [facility] Address [address] [place] [address] Care Team Providers Care Mat Tester Name Role Phone Votel, Axel Thomas MD Primary Care Provider + [facility], [place] Unavailable Allergies Active Allergy Reactions Criticality Noted Date Comments Ciprofloxacin Diarrhea,Myalgia 07/15/2025 Medications cholecalciferol (Vitamin D-3) 2,000 unit capsule [...] if dressing wet or loose. 100 Each 5 025 Active Adhesive Tape (Medipore H) 3 X 10 -yard tapeIndications:B ilateral hydronephrosis Apply topically to affected area(s). 3 Each 5 Active acetaminophen 325 mg tabletIndications :Malignant neoplasm of cervix, unspecified site (HC) Take 2 Tablets (650 mg) by mouth every 4 hours if needed for Pain (For mild pain.). Max acetaminophen dose: 4000mg in 24 hrs. 180 Tablet 01/15/20 12:03 PM CDT Active polyethylene glycoL 17 gram/scoop powderIndications :Malignant neoplasm of cervix, unspecified site (HC),Constipation , unspecified constipation type Mix 1 scoop (17 g) in 8 oz of liquid then take by mouth once daily if needed for Constipation. 238 g 01/15/20 12:03 PM CDT Active carvediloL 25 mg tabletIndications :HTN (hypertension) Take 1 Tablet (25 mg) by mouth two times daily with meals. 180 Tablet 3 Active traZODone (DESYREL) 50 mg tabletIndications :Insomnia, idiopathic TAKE 1 TABLET BY MOUTH AT BEDTIME 93 Tablet 025 Active sennosides-docusa te (SENOKOT S) (8.6-50 mg) tabletIndications :Constipation, unspecified constipation type Take 1 Tablet by mouth two times daily. 100 Tablet 11 025 Active traZODone 50 mg tabletIndications :Insomnia, idiopathic Take 1 Tablet (50 mg) by mouth at bedtime. 31 Tablet 2 2024 Discontinued prochlorperazine 10 mg tablet Take 10 mg by mouth every 6 hours if needed for Nausea/Vomiting . 2024 Discontinued(* Patient states no longer taking) OLANzapine 2.5 mg tablet Take 2.5 mg by mouth one time if needed for Sleep. 2024 Discontinued(* Patient states no longer taking) Active Problems Problem Noted Date Diagnosed Date Non-infectious pneumonia 07/11/2025 ACP (advance care planning) 06/22/2025 Overview (06/23/2025): Patient has identified Health Care Agent(s): Yes Add Health Care Agents: Yes Health Care Agent(s): Primary Health Care Agent: Brooke Barbour Relationship: sister Secondary Health Care Agent: Rachana Conner Relationship: sister Conservator: Relationship: Phone: Guardian: Relationship: Phone: Patient has Advance Care Plan Documents (Health Care Directive, POLST): Yes Advance Care Plan Documents: Health Care Directive and POLST Form Patient has identified Specific Treatment Preferences: Yes How have preferences been verified: HCD and POLST Specific Treatment Preferences: a.) Code Status: DNR/ Do Not Attempt Resuscitation - Allow a Natural b.) Goals of Treatment: iii. Comfort-Focused Treatment (Allow Natural ): Relieve pain and suffering through the use of any medication by any route, positioning, wound care and other measures. Use oxygen, suction and manual treatment of airway obstruction as needed for comfort. Patient prefers no transfer to hospital for life-sustaining treatments. Transfer if comfort needs cannot be met in current location. TREATMENT PLAN: Maximize comfort through symptom management. c.) Interventions and Treatments: i. Artificially Administered Nutrition and Hydration: - No artificial nutrition/hydration by tube ii. 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 ) 07/14/2025 Travel 07/12/2025 10:00 AM CDT Home Care Visit [facility] [address] [place] [phone] Krista Velasco, RN SN - OASIS RECERTIFICATION 07/12/2025 9:00 AM CDT Home Care Visit [facility] [address] [place] [phone] Dane Haynes QUILL STRIPPER - HOME VISIT 07/12/2025 Plan of Care Documentation [facility] [address] [place] [phone] 07/12/2025 Telephone [facility] [address] [place] [phone] Krista Velasco, comparison shopper 07/11/2025 10:25 AM CDT Office Visit [facility] [address] [place] [address] Axel Palomo MD Abdominal Pain (Constipated, not sleeping); Results (PET scan, wants clarification) 07/11/2025 Telephone [facility] [address] [place] [address] Axel Palomo MD Appointment (Request appointment for New Patient and Consult ) 07/11/2025 Travel 07/06/2025 10:00 AM CDT Home Care Visit [facility] [address] [place] [phone] Too Ayala, PT PT - DISCIPLINE DISCHARGE 07/06/2025 Travel 07/05/2025 10:00 AM CDT Home Care Visit [facility] [address] [place] [phone] Krista Velasco RN SN - HOME VISIT 07/05/2025 9:15 AM CDT Home Care Visit [facility] [address] [place] [phone] Dane Haynes QUILL STRIPPER - HOME VISIT 06/30/2025 9:00 AM CDT Home Care Visit [facility] [address] [place] [phone] Krista Velasco, DUYEN SN - HOME VISIT 06/30/2025 Orders Only [facility] Scanner 1 scan: (1-Ord) [facility], SKULL BASE TO THIGHS, 06/30/2025 06/29/2025 9:00 AM CDT Home Care Visit [facility] [address] [place] [address], [place] [phone] Too Ayala, PT PT - HOME VISIT 06/28/2025 9:30 AM CDT Home Care Visit [facility] [address] [place] [phone] Dane Haynes QUILL STRIPPER - HOME VISIT 06/28/2025 Refill [facility] [address] [place] [address] Axel Palomo MD Refill Request (Trazodone) 06/24/2025 11:00 AM CDT Home Care Visit [facility] [address] [place] [phone] Krista Velasco RN SN - HOME VISIT 06/24/2025 Telephone [facility] [address] [place] [phone] Krista Velasco, comparison shopper 06/22/2025 11:30 AM CDT Home Care Visit [facility] [address] [place] [phone] Shanika Joya MSW NURSE AIDE - INITIAL ASSESSMENT 06/21/2025 9:30 AM CDT Home Care Visit [address] [phone] Dane Haynes QUILL STRIPPER - HOME VISIT 06/16/2025 9:30 AM CDT Home Care Visit [facility] [address] [place] [address] Krista Velasco, RN SN - HOME VISIT 06/15/2025 Home Care Visit [facility] [address] [place] [address] Shanika Joya MSW CARE COORDINATION 06/14/2025 7:30 AM CDT Home Care Visit [facility] [address] [place] [address] Dane Haynes QUILL STRIPPER - HOME VISIT 06/10/2025 2:00 PM CDT Home Care Visit [facility] [address] [place] [address] Leonel Dent, PT PT - INITIAL ASSESSMENT 06/10/2025 Travel 06/09/2025 2:30 PM CDT Home Care Visit [facility] [address] [place] [address] Krista Velasco, DUYEN SN - HOME VISIT 06/08/2025 Home Care Visit [facility] [address] [place] [address], [place] [address] Leonel eDnt, PT CARE COORDINATION 06/07/2025 9:15 AM CDT Home Care Visit [facility] [address] [place] [address], [place] [address] Dane Haynes QUILL STRIPPER - HOME VISIT 06/07/2025 Orders Only [facility] Scanner 1 scan: (1-Ord) [place], URINE CULTURE, 06/07/2025 06/07/2025 Orders Only [facility] Scanner 1 scan: (1-Ord) [facility], URINE CULTURE, 06/07/2025 06/07/2025 Orders Only [facility] Scanner 1 scan: (1-Ord) [facility], MULTIPLE LABS, 06/07/2025 06/07/2025 Telephone [facility] [address] [place] [address] Axel Palomo MD Urinary Problem 06/07/2025 Nurse Triage [facility] [address] [place] [address] Axel Palomo MD Urinary Problem 06/02/2025 11:30 AM CDT Home Care Visit [facility] [address] [place] [phone] Krista Velasco RN SN - HOME VISIT 05/26/2025 9:30 AM CDT Home Care Visit [facility] [address] [place] [phone] Petra Carroll LPN PRODUCT ARCHITECT - HOME VISIT 05/25/2025 9:00 AM CDT Home Care Visit [facility] [address] [place] [phone] Dane Haynes QUILL STRIPPER - HOME VISIT 05/25/2025 Home Care Visit [facility] [address] [place] [phone] Fina Waters RN CARE COORDINATION 05/19/2025 8:30 AM CDT Home Care Visit [facility] [address] [place] [phone] Dane Haynes QUILL STRIPPER - HOME VISIT 05/18/2025 11:00 AM CDT Home Care Visit [facility] [address] [place] [phone] Petra Carroll LPN PRODUCT ARCHITECT - HOME VISIT 05/18/2025 Medical Messaging [facility] [address] [place] [address] Axel Palomo MD Nephrology Referral 05/13/2025 1:00 PM CDT Home Care Visit [facility] [address] [place] [phone] Krista Velasco, DUYEN SN - OASIS RECERTIFICATION 05/13/2025 Plan of Care Documentation [facility] [address] [place] [phone] 05/10/2025 2:30 PM CDT Office Visit [facility] [address] [place] [address] Axel Palomo MD ER Follow up ([place], UTI, 04/29/25) 05/10/2025 10:00 AM CDT Home Care Visit [facility] [address] [place] [phone] Krista Velasco, DUYEN SN - HOME VISIT 05/10/2025 Travel 05/06/2025 9:45 AM CDT Home Care Visit [facility] [address] [place] [phone] Nicky Ragland RN SN - HOME VISIT 05/05/2025 Travel 05/03/2025 1:00 PM CDT Home Care Visit [place] [address] [place] [phone] Krista Velasco RN SN - OASIS RESUMPTION OF CARE 05/03/2025 Telephone [facility] [address] [place] [phone] Krista Velasco, comparison shopper 04/29/2025 Home Care Visit [address] [phone] Krista Velasco RN SN - OASIS TRANSFER 04/27/2025 11:00 AM CDT Home Care Visit [facility] [address] [place] [phone] Krista Velasco, DUYEN SN - HOME VISIT 04/27/2025 Home Care Visit [address] [phone] Krista Velasco, ECOTHERAPIST NOTE 04/27/2025 Orders Only [facility] Scanner 1 scan: (1-Ord) [facility], CHEST 2 V, 04/27/2025 04/22/2025 9:00 AM CDT Home Care Visit [facility] [address] [place] [address] [place] [phone] Petra Carroll LPN PRODUCT ARCHITECT - HOME VISIT 04/19/2025 10:00 AM CDT Home Care Visit [facility] [address] [place] [address] Krista Velasco RN SN - HOME VISIT from Last [...] you have a drink containing alcohol ? 0 07/11/2025 Average Number of Drinks Not on file 025 Frequency of Binge Drinking Not on file 06/23 Financial Resource Strain Answer Date R ecorded [...] on file Legal Sex Female 7:12 AM GRINDER CHIPPER Gender Identity Not on file Sexual Orientation Not on file Obstetrics History Para Term AB IAB SAB Ectopic Multiple Livin g Live Births 0 0 0 0 0 0 0 0 0 0 0 Last Filed Vital Signs Vital Sign Reading Time Taken Comments Blood Pressure 143/90 07/15/2025 9:05 AM CDT Pulse 68 07/15/2025 8:59 AM CDT Temperature 36.6 C (97.9 F) 07/12/2025 9:50 AM CDT Respiratory Rate 16 07/12/2025 9:50 AM CDT Oxygen Saturation 97% 07/15/2025 8:59 AM CDT Inhaled Oxygen Concentration - - Weight 67.5 kg (148 lb 12.8 oz) 07/15/2025 8:59 AM CDT Height 165.1 cm (5' 5) 07/15/2025 8:59 AM CDT Body Mass Index 24.76 07/15/2025 8:59 AM CDT Plan of Treatment Upcoming Encounters Date Type Department Care Team (Late st Contact Info) Description 07/19/2025 9:00 AM CDT Appointment [address] [phone] Danagata, Krin L 07/21/2025 10:00 AM CDT Appointment [address] [phone] Krista Velasco RN 07/26/2025 4:00 AM GRINDER CHIPPER Appointment [address] [phone] Danberry, Krin L 08/02/2025 4:00 AM GRINDER CHIPPER Appointment [address] [phone] Danberry, Krin L 08/09/2025 4:00 AM GRINDER CHIPPER Appointment [address] [phone] Danagata, Krin L 08/16/2025 4:00 AM GRINDER CHIPPER Appointment [facility] [address] [place] [address] Dane Haynes L 08/16/2025 11:00 AM GRINDER CHIPPER Office Visit [facility] [address] [place] [address] Ashley Casanova, DO [address] [place] [address] 08/23/2025 4:00 AM GRINDER CHIPPER Appointment [facility] [address] [place] [address] Dane Haynes 08/30/2025 4:00 AM GRINDER CHIPPER Appointment [facility] [address] [place] [phone] Jesse Haynesin L Health Maintenance Due Date Last Done Comments Tetanus booster 1960 Pneumococcal series for age 50+ (1 of 2 - PCV) 1968 Zoster (shingles) series for age 50+ (1 of 2) 1968 DEXA/DXA scan for age 65+ 2014 Depression screening for age 12+ 06/12/2024 06/12/2023, 05/21/2021, 05/03/2020, Additional history exists RSV vaccine for adults or (1 - 1-dose 75+ series) 2024 Influenza Vaccine (#1) 2025 Medicare Wellness for age 65+ 06/15/2025 06/14/2024, 06/12/2023, 06/10/2022, Additional history exists Fecal testing sDNA-FIT (Cologuard) for age 45-75 06/18/2025 06/18/2022 BMI (ht and wt on same day) for age 18+ 07/15/2026 07/15/2025, 10/14/2024, 09/30/2024, Additional history exists Lipids for age 45-75 01/18/2030 01/18/2025, 09/09/2024, 06/10/2024, Additional history exists Hepatitis C screening for age 18-79 Completed 06/11/2023 Hepatitis B series for 19+ Aged Out N o longer eligible based on patient's age to complete this topic Procedures Procedure Name Priority Date/Time Associated Diagnosis Comments SCAN-PET SCAN 06/30/2025 12:00 AM CDT SCAN-PATHOLOGY REPORT 06/07/2025 12:00 AM CDT SCAN-PATHOLOGY REPORT 06/07/2025 12:00 AM CDT SCAN-LABORATORY REPORT 06/07/2025 12:00 AM CDT SCAN-RADIOLOGY REPORT 04/27/2025 12:00 AM CDT LIPID PANEL W REFLEX MEASURED LDL Routine 01/18/2025 2:53 PM CDT Pure hypercholesterolemia ANTI HCV Routine 06/11/2023 12:43 PM CDT Need for hepatitis C screening test SDNA-FIT EXTERNAL (COLOGUARD) Routine 06/18/2022 5:30 AM CDT Screening for colon cancer from Last 3 Months or Most Recently Relevant to Health Maintenance Results * SCAN-PET SCAN (06/30/2025 12:00 AM CDT) Anatomical Region Laterality Modality Other us Scanner OTHER Final Result * SCAN-PATHOLOGY REPORT (06/07/2025 12:00 AM CDT) Only the most recent of2 resultswithin the time period is included. us Scanner OTHER Final Result * SCAN-LABORATORY REPORT (06/07/2025 12:00 AM CDT) us Scanner OTHER Final Result * SCAN-RADIOLOGY REPORT (04/27/2025 12:00 AM CDT) Anatomical Region Laterality Modality Other us Scanner OTHER Final Result * (ABNORMAL) LIPID PANEL W REFLEX MEASURED LDL (01/18/2025 2:53 PM CDT) [facility] Signature CHOLESTEROL, TOTAL 275(H) <200 mg/dL [facility] [place] HDL CHOLESTEROL 53 > OR = 50 mg/dL [facility] [employer] [place] TRIGLYCERIDES 137 <150 mg/dL [facility] LDL-CHOLESTEROL 193(H) mg/dL (calc) [facility] [place] Comment: LDL-C levels > or = 190 [...] about testing for familial hypercholesterolemia, please call [facility] at [phone].FlowPlay.INFO. Deuce T, et al. J National Lipid Association Recommendations for Patient-Centered Management of Dyslipidemia: Part 1 Journal of Clinical Lipidology 2015;9(2), 129-169. Shorty Giraldo. et al. (2014). Homozygous familial hypercholesterolaemia: new insights and guidance for clinicians to improve detection and clinical management. Heart Journal, 35(32), 0748-8134. Reference range: <100 Desirable range <100 mg/dL for primary prevention; <70 mg/dL for patients with CHD or diabetic patients with > or = 2 CHD risk factors. LDL-C is now calculated using the Greyson-Alex calculation, which is a validated novel method providing better accuracy than the Friedewald equation in the estimation of LDL-C. Greyson HUBBARD et al. CAPRICE. 2013;310(19): 1240-9641 (http://education.Physicians Endoscopy.ScalIT/faq/KMB486) CHOL/HDLC RATIO 5.2(H) <5.0 (calc) [facility] [place] NON HDL CHOLESTEROL 222(H) <130 mg/dL (calc) [facility] [place] Comment: Non-HDL level > or = 220 [...] Axel Palomo MD CHEMISTRY Final Re sult [facility] [address] [place] [address], [facility] [address] [place] [address] * ANTI HCV (06/11/2023 12:43 PM CDT) Pathologist [facility] HEPATITIS C ANTIBODY Non-Reacti ve Non-React paresh 06/12/2023 9:16 AM CDT [facility] Comment:Please note, per www .CDC.gov: If [...] DO SEND OUTS Final Resu lt [facility] SENDOUT [place] ZIP [id number] [address] [place] [address] * SDNA-FIT EXTERNAL (COLOGUARD) (06/18/2022 5:30 AM CDT) Pathologist [facility] NONINV COLON CA DNA+OCC BLD SCRN STL-IMP Negative Negative 06/22/2022 8:52 AM CDT [facility] (CLIA #:[id number]) Comment: NEGATIVE TEST RESULT. A negative Cologuard [...] (Timmy Judge al, N Engl J Med 2014;370(14):4376-1754) The normal value (reference range) for this assay is negative. COLOGUARD RE-SCREENING RECOMMENDATION: Periodic colorectal cancer screening is an important part of preventive healthcare for asymptomatic individuals at average risk for colorectal cancer. Following a negative Cologuard result, the [employer] [employer] Society and U.S. Multi-Society Task Force screening guidelines recommend a Cologuard re-screening interval of 3 years. References: [employer] [employer] Guideline for Colorectal Cancer Screening: https://www.cancer.org/cancer/tmfxa-mxnrve-xpkynr/aobauiaon-ptydkfxim-zvkxggk/ac s-rec ommendations.html.; Fidel DK, Joann العلي, Maribell McneilK, Colorectal Cancer Screening: Recommendations for Physicians and Patients from the U.S. Multi-Society Task Force on Colorectal Cancer Screening , Am J Gastroenterology 2017; 112:7578-4675. TEST DESCRIPTION: Composite algorithmic analysis of stool [...] (Timmy Judge al, N Engl J Med 2014;370(14):5528-1236.) Cologuard may produce a false negative or false positive result (no colorectal cancer or precancerous polyp present at colonoscopy follow up). A negative Cologuard test result does not guarantee the absence of CRC or advanced adenoma (pre-cancer). The current Cologuard screening interval is every 3 years. ([employer] [employer] Society and U.S. Multi-Society Task Force). Cologuard performance data in a 10,000 patient pivotal study using colonoscopy as the reference method can be accessed at the following location: www.[employer] Media/results. Additional description of the Cologuard test process, warnings and precautions can be found at www.[employer] Technologiesoguard.com. Stool specimen (specimen) (Rectum) 06/18/2022 5:30 AM CDT 06/19/2022 11:50 AM CDT Marivel Andrade DO URINE Final Resu lt [facility] (CLIA #:[id number]) [place] [address], from Last 3 Months or Most Recently Relevant to Health Maintenance Insurance BLUE CROSS JAMUL BLUE MR PB ONLY MEDICARE PART A HB ONLY MEDICARE PART B HB ONLY BLUE CROSS JAMUL BLUE HB ONLY BLUE CROSS JAMUL BLUE HB ONLY MEDICARE PPS Advance Directives Documents on File Type Date Recorded Patient Candle Cutter Expl anation Healthcare Directive 06/28/2025 2:05 PM HC D 10.7.25 Healthcare Directive 04/17/2018 12:52 PM * DNR (Latest Code Status on File) Date Activated Date Inactivated Comments 06/22/2025 4:51 PM New POLST comp leted today. She will bring in to next appt. * Full Code Date Activated Date Inactivated Comments 03/15/2025 9:48 PM 06/22/2025 4:51 PM * Full Code Date Activated Date Inactivated Comments 01/06/2025 12:27 AM 01/14/2025 3:02 PM Question Answer Comments Code Status Discussion: Reviewed Preferences Care Teams Mat Tester Relationship Specialty Start Date End Date Votel, Axel [place] [address] PCP - General Family Practice 01/04/25 [facility] [address] [place] [address] 01/14/25
--- OUTSIDE RECORDS SUMMARY | 2025-07-15 14:18 | XMS_ITS | Encounter Summary ---
Author Organization [facility] Address [address] [place] [id number] Care Team Providers Care Milieu Coordinator Name Role Phone Unavailable Primary Care Provider Unavailabl e Reason for Referral * MRI/CAT/PET Scan (Routine) - Authorized Specialty Diagnoses / Procedures Referred By Pastora piedra Referred To Contact Radiology Diagnoses Malignant Neoplasm Of Cervix (HCC) Procedures CT Abdomen Pelvis with IV Contrast Thelma Streeter M.D. [address] [place] [phone] Phone: tel: fax: [facility] Region Referral ID Status Reason Start Date Expiration Date V isits Requested Visits Authorized [id number] Authorized 07/07/2025 10/07/2026 1 1 Encounter Details Date Type Department Care Team (Late st Contact Info) Description 07/07/2025 Orders Only Department of Radiation Oncology in [place], [place] [address] [place] [phone] Thelma Streeter M.D. [address] [place] [phone] Malignant Neoplasm Of Cervix (HCC) (Primary Dx) Social History Tobacco Use Types Packs/Day Years Used Date Smoking Tobacco: Never Smokeless Tobacco: Never Alcohol Use Standard Drinks/Week Comments Not Currently 0 (1 standard drink = 0.6 oz pure alcohol) Quit drinkinking in August after pelvic pain started. [facility] Utilities Answer Date Recorded In the past [...] your living situation today? I have a [facility] place to live 03/21/2025 Comments No Sex and Gender Information Value Date Recorded Sex Assigned at Female 03/05/2025 6:51 AM CDT Legal Sex Female 6:12 PM [employer] Gender Identity Female 03/05/2025 6:51 AM CDT Sexual Orientation Straight 03/05/2025 6: 51 AM CDT documented as of this encounter Plan of Treatment Upcoming Encounters Date Type Department Care Team (Late st Contact Info) Description 08/05/2025 11:00 AM [employer] Appointment Department of Radiology, [facility], in [place], [place] [address] [place] [phone] Jessie Borden APRN, C.N.P., D.N.P. [address] [place] [phone] 08/05/2025 2:30 PM [employer] Office Visit Department of Urology in [place], [place] [address] [place] [phone] Jessie Borden APRN, C.N.P., D.N.P. [address] [place] [phone] Scheduled Orders Name Type Priority Associated Diagnoses Orde r Schedule CT Abdomen Pelvis with IV Contrast Imaging RAD - Routine (most inpatients and all outpatients) Malignant Neoplasm Of Cervix (HCC) Expected: 07/07/2025, Expires: 10/07/2026 documented as of this encounter Visit Diagnoses Diagnosis Malignant Neoplasm Of Cervix (HCC)- Primary documented in this encounter
--- NOTE | 2025-07-15 14:37 | ED.GENADULT ---
HPI - General Adult General Chief complaint: Shortness of Breath/Dyspnea Stated complaint: Possible blood clots in lungs/legs Time Seen by Provider: 07/15/25 14:29 History of Present Illness HPI narrative: Pt sent by her oncologist. Pt had a CT scan here yesterday where multiple clots were seen including bilateral PEs. Was advised by her oncologist this AM to go to [place] or [place] for definitive care for this. Pt presents to the ER this afternoon with mild shortness of breath but otherwise denies any other new symptoms. Denies any chest pain at this time. Pt was ambulatory to ER on arrival. 74-year-old woman presenting to the emergency department with concern IVC, renal vein, iliac vein, as well as pulmonary emboli as visualized in the lower chest. discovered CT imaging performed yesterday. Recommended to follow-up for treatment/hospitalization. Underlying history of metastatic cervical cancer. Has been taking Keytruda. Had a PET scan on 06/30/2025 and yesterday then follow-up imaging abdomen pelvis. Has never apparently had clots before. Otherwise feels pretty well. Is fairly active. She is over the last couple of days been a little more short of breath. No chest pain. No fever. She has been feeling some discomfort over the last couple of weeks in her pelvis. No leg swelling or pain. Receives Cancer Care through [facility] locally and most recently hospitalized in December of this year at [place] with what she reports was pneumonia and needing nephrostomy tubes presumably for acute renal failure for obstructive uropathy Technique: CT Abdomen/Pelvis WITH 72 CC ISOVUE 370 AND WATER intravenous contrast Please note that all CT scans at this facility use dose modulation, iterative reconstruction, and/or weight-based dosing when appropriate to reduce radiation dose to as low as reasonably achievable. Comparison: CT-PET 06/30/2025, CT abdomen and pelvis 01/06/2025 Findings: In the lung bases, bilateral pulmonary emboli are noted. Decreased left pleural effusion. Residual subpleural densities left lateral lung base. In the abdomen, aortocaval adenopathy is present corresponding with the prior CT PET and measures 1.9 cm. Additional numerous other sub cm aortocaval and left periaortic lymph nodes are present elsewhere in the retroperitoneum. Bilateral nephrostomy tubes are present. No hydronephrosis. Chronic fat density area within the right kidney with associated right renal cortical thinning. Spleen is unremarkable with incidental adjacent splenule. Cystic pancreatic lesion in the pancreatic tail measures 1.4 cm, similar to the 01/06/2025 CT. Gallbladder incompletely distended. No intrahepatic mass. Faint nodular densities are present within the left anterior mesenteric fat, measuring less than 1 cm, see series 2, image 83. This appears to correspond with the CT PET and appear to be unchanged compared to 01/06/2025. Thrombus is noted within the inferior vena cava extending from just superior to the renal veins and extending inferiorly into the right common iliac vein. Clot also appears to extend into the proximal right renal vein. No fracture is present. In the pelvis, a lobular low-density cervical mass is again noted which measures 3.3 x 2.3 x 2.7 cm in the anterior-posterior, craniocaudad and transverse dimensions, respectively. Uterine fibroids are present, including a posterior exophytic fibroid which measures 5 cm. There is also a left posterior calcified exophytic fibroid which measures 2.6 cm. Increased stool noted within the rectum. No mechanical bowel obstruction. 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 Called to Gris in the [facility] at 1025 am 10. Compared to the recent CT PET, similar size of the low-density cervical mass measuring 3.3 cm. Also similar are retroperitoneal lymph nodes measuring up to 1.9 cm. Nodular densities in the left anterior mesenteric fat are unchanged compared to prior CT 01/06/2025. Resolution of small left pleural effusion with residual scarring in the periphery of the left lower lobe. Bilateral nephrostomy tubes. No hydronephrosis. Please note that all CT scans at this facility use dose modulation, iterative reconstruction, and/or weight-based dosing when appropriate to reduce radiation dose to as low as reasonably achievable. Dictated by Leonel Elizabeth MD @ 07/15/2025 10:32:54 AM Related Data Home Medications ?Medication ?Instructions ?Recorded ?Confirmed coenzyme Q10 100 mg capsule (Co 100 mg PO DAILY 02/10/25 07/15/25 Q-10) omega-3 fatty acids-fish oil 360 1 cap PO DAILY 02/10/25 07/15/25 mg-1,200 mg capsule loperamide 2 mg capsule (Imodium 2 mg PO QID PRN 03/07/25 07/16/25 A-D) trazodone 50 mg tablet 50 mg PO HS 03/14/25 07/15/25 carvedilol 25 mg tablet 25 mg PO BID 04/28/25 07/15/25 polyethylene glycol 3350 17 gram 17 g PO DAILY 07/16/25 07/16/25 oral powder packet sennosides 8.6 mg-docusate sodium 1 tab-cap PO BID 07/16/25 07/16/25 50 mg tablet (Senna with Docusate Sodium) Previous Rx's ?Medication ?Instructions ?Recorded apixaban 5 mg tablet (Eliquis) See Rx Instructions .Route 07/16/25 .COMPLEX #74 tabs Allergies Allergy/AdvReac Type Severity Reaction Status Date / Time ciprofloxacin (From Cipro) AdvReac Intermediate Diarrhea, Verified 07/17/25 12:55 calf cramping Review of Systems Status of ROS: Reports: 6 or more systems reviewed and unremarkable except as noted in History and below [facility] Medical History (Updated 07/17/25 @ 14:58 by Clayton Avina MD) Lung consolidation ?J18.1 - Lobar pneumonia, unspecified organism (ICD-10) Complicated urinary tract infection ?N39.0 - Urinary tract infection, site not specified (ICD-10) Ureteral obstruction ?N13.5 - Crossing vessel and stricture of ureter without hydronephrosis (ICD-10) Squamous cell carcinoma of cervix ?C53.9 - Malignant neoplasm of cervix uteri, unspecified (ICD-10) Hyponatremia ?E87.1 - Hypo-osmolality and hyponatremia (ICD-10) Pure hypercholesterolemia ?E78.00 - Pure hypercholesterolemia, unspecified (ICD-10) Essential hypertension ?I10 - Essential (primary) hypertension (ICD-10) Surgical History (Updated 07/15/25 @ 20:11 by Jossie Herrera PA-C) H/O insertion of nephrostomy tube ?Z98.890 - Other specified postprocedural states (ICD-10) Social History What is your current living situation?: I presently have a place to live Problems where you live: no known problems Problems where you live details: N/A In the past 12 months, utilities in danger of being shut off: no In past 12 months, lack of transportation kept you from medical appts, meetings, work, or getting things needed for daily living: no In the past 12 mos, have been you worried that your food would run out before you had money to buy more?: never true In the past 12 mos, the food you bought just didn't last and you didn't have money to buy more?: never true Highest level of school completed/degree received: Bachelor's degree Smoking Status: Never smoker Second hand tobacco smoke exposure: No How often do you have a drink containing alcohol: never AUDIT-C Alcohol total score: 0 Non-prescribed substance use: denies use Caffeine: Yes (1c/day) How often does anyone, including family, friends and others, physically hurt you: never How often does anyone, including family, friends and others, insult or talk down to you: never How often does anyone, including family, friends and others, threaten you with harm: never How often does anyone, including family, friends and others, scream or curse at you: never Are you using contraception or practicing any form of control: No service: No Exam Narrative: Exam Narrative: Pleasant and of good energy. Cranial nerves 2-12 intact. Skin is warm and dry. Lower extremities are without edema. She is well-perfused peripherally. Lungs are clear. Heart in regular rate rhythm without murmur rub or gallop identified. Abdomen is soft and minimally uncomfortable in the low abdomen. Const: Vital Signs, click to edit/add: Vital Signs - 24 hr 07/15/25 14:28 07/15/25 14:30 07/15/25 14:31 Temperature 98.5 F Pulse Rate 89 94 Pulse Rate [Pulse Oximeter] 91 Respiratory Rate 20 18 Blood Pressure 183/104 H Blood Pressure [Le ft Upper Arm] 183/104 H Pulse Oximetry 98 97 96 Oxygen Delivery Me thod Room Air 07/15/25 14:45 07/15/25 15:00 07/15/25 15:01 Temperature Pulse Rate 86 87 86 Pulse Rate [Pulse Oximeter] Respiratory Rate 16 Blood Pressure 170/116 H Blood Pressure [Le ft Upper Arm] Pulse Oximetry 96 96 98 Oxygen Delivery Me thod Room Air 07/15/25 15:15 07/15/25 15:30 07/15/25 16:01 Temperature Pulse Rate 83 86 Pulse Rate [Pulse Oximeter] Respiratory Rate Blood Pressure 168/94 H Blood Pressure [Le ft Upper Arm] Pulse Oximetry 97 96 Oxygen Delivery Me thod 07/15/25 16:48 07/15/25 16:50 Temperature Pulse Rate 88 89 Pulse Rate [Pulse Oximeter] Respiratory Rate 16 Blood Pressure 170/96 H Blood Pressure [Le ft Upper Arm] Pulse Oximetry 95 97 Oxygen Delivery Me thod Room Air Documenting provider has reviewed patient's vital signs: yes Course Vital Signs Vital signs: Initial Vital Signs Respiratory Effort Normal 07/15/25 14:26 Respiratory Depth Normal 07/15/25 14:26 Respiratory Pattern Normal 07/15/25 14:26 Vital Signs Temperature 98.5 F 07/15/25 14:28 Pulse Rate 91 07/15/25 14:28 Respiratory Rate 20 07/15/25 14:28 Blood Pressure 183/104 H 07/15/25 14:28 Pulse Oximetry 98 07/15/25 14:28 Oxygen Delivery Method Room Air 07/15/25 14:28 Temperature 97.5 F L 07/16/25 11:00 Pulse Rate 82 07/16/25 11:00 Respiratory Rate 18 07/16/25 11:00 Blood Pressure 124/78 07/16/25 11:00 Pulse Oximetry 98 07/16/25 11:00 Oxygen Delivery Method Room Air 07/16/25 11:00 Medications Administered Medications: Discontinued Medications Generic Name Dose Route Start Last Admin Trade Name Freq PRN Reason Stop Dose Admin Apixaban 10 mg 07/16/25 10:50 07/16/25 11:21 Apixaban 5 Mg Tablet PO 10 mg BID LUCIAN Administration Carvedilol 25 mg 07/15/25 21:00 07/16/25 09:11 Carvedilol 25 Mg Tablet PO 25 mg BID LUCIAN Administration Heparin Sodium (Porcine) 5,300 unit 07/15/25 16:07 07/15/25 16:38 Heparin 5,000 Unit/0.5 Ml Inj 80 unit/kg (5300 unit) 07/15/25 16:08 5,300 unit IVP Administration ONCE ONE Heparin Sodium (Porcine) 500 unit 07/16/25 12:54 07/16/25 12:59 Heparin 500 Unit/5 Ml Syringe IVF 500 unit FLUSHPRN PRN Administration Sodium Chloride 500 mls @ 1,000 mls/hr 07/15/25 15:55 07/15/25 17:28 0.9 % Sodium Chloride 500 Ml IV 07/15/25 16:24 Infused .Q30M ONE Infusion Heparin Sodium/Dextrose 25,000 unit in 500 mls @ 0 mls/hr 07/15/25 16:15 07/16/25 12:20 Heparin IV 0 unit/hr .Q0M LUCIAN 0 mls/hr Protocol Titration Per Protocol Melatonin 3 - 6 mg 07/15/25 19:37 07/15/25 20:23 Melatonin 3 Mg Tablet PO 6 mg HS PRN Administration Sennosides 2 tab 07/16/25 09:00 07/16/25 09:11 Sennosides 1 Tab Tablet PO 2 tab DAILY LUCIAN Administration Sodium Chloride 5 ml 07/15/25 19:37 07/16/25 12:58 Sodium Chloride 0.9 % (Flush) 10 Ml Syringe IVF 5 ml .FLUSH PRN Administration Sodium Chloride 5 ml 07/15/25 21:00 07/16/25 09:11 Sodium Chloride 0.9 % (Flush) 10 Ml Syringe IVF Not Given BID LUCIAN Trazodone HCl 50 mg 07/15/25 21:00 07/15/25 20:23 Trazodone Hcl 50 Mg Tablet PO 50 mg HS LUCIAN Administration Medical Decision Making MDM Narrative Medical decision making narrative: Based on findings here anticipate in for heparinization. Will need to discuss potential interventions whether this is thrombolysis or thrombectomy or simply heparin to NOAC for example. I would hospitalize for initiation of heparinization. Discussed at length preferences for hospitalization and given comorbidities, potential complications and care would consider [place] or [place] however provided remains vitally well might be able to be admitted at this facility. Will check labs in anticipation of anticoagulation/heparinization. Monitor for worsening status. Would also CT chest for evidence of potential right heart strain or more extensive clot burden. Did discuss with our hospitalist. Have also discussed with [place] hematology and hospitalist. Waiting to hear back yet from IR as to potential interventions that might be offered. INDICATION: Pulmonary embolism seen on same-day CT abdomen and pelvis TECHNIQUE: CT chest PE was acquired with 95 cc Isovue 370 IV contrast. Coronal and MIP reconstructions were performed. COMPARISON: CT abdomen and pelvis with contrast 07/14/2025, PET-CT 06/30/2025, CT chest abdomen and pelvis without contrast 10/21/2024. FINDINGS: Heart and vasculature: Contrast opacification of the pulmonary arterial tree is adequate. There are multiple bilateral filling defects consistent with acute pulmonary emboli, most proximally involving the distal right interlobar pulmonary artery and the left inferior lobar pulmonary artery. Distal extension to segmental and subsegmental branches is seen in all lobes. The RV to LV ratio is less than 1. Heart size is normal. Thoracic aorta and pulmonary artery are normal in caliber. Lungs and pleura: There is peripheral consolidation and ground-glass opacification in the right middle lobe (series 7, image 69). Similar peripheral consolidation and patchy ground-glass opacities in the left lower lobe. No pleural effusion or pneumothorax. Lymph nodes/mediastinum: No mediastinal, hilar, or axillary adenopathy. Chest wall: Right port catheter in place. Otherwise unremarkable. Upper abdomen: Unchanged compared to CT abdomen and pelvis 07/14/2025 Bones: No acute or suspicious osseous abnormality. IMPRESSION: 1. Bilateral pulmonary emboli involving all lobes most proximally at the level of the right interlobar pulmonary artery. No CT evidence of right heart strain. 2. New peripheral consolidation in the right middle lobe could reflect pulmonary infarct versus new focus of organizing pneumonia. Peripheral left lower lobe consolidation appears similar compared to recent prior PET-CT. The above findings were communicated to Dr. Pathak at 16:46 PM on 07/15/2025. Initiating heparinization Was not able to discuss this case with Interventional Radiology but was able to discuss with shine worker and vascular surgery. Given stability of vitals would not be going to an ICU and so could potentially manage here at this facility. Furthermore vascular surgery, considering minimal symptoms and without right heart strain and cancer diagnosis and as well as this diagnosis being the likely cause, would only recommend heparinization and Lovenox at this time. With stable vitals and minimal discomfort would appear that we can take care of Ms. Garcia at this facility. She prefers this as well. Hospitalist has accepted for admission See patient discharge Medical Records Medical records reviewed: Yes I reviewed the patient's medical records Lab Data Lab results reviewed: Yes I reviewed the patient's lab results Labs: Lab Results 07/15/25 07/15/25 Range/Units 15:39 16:20 WBC 4.26 L (4.50-11.00) K/uL RBC 3.47 L (4.00-5.20) m/uL Hgb 10.4 L (12.0-16.0) gm/dL Hct 32.6 L (33.0-51.0) % MCV 94 (80-100) fL MCH 30 (26-34) pg MCHC 32 (32-36) gm/dL RDW Coeff of Myrna 14.8 (11.5-15.5) % Plt Count 150 (140-440) K/uL Neut % (Auto) 73.3 H (42.0-72.0) % Lymph % (Auto) 12.4 L (20-44) % [place] % (Auto) 12.0 H (0.0-11.0) % Eos % (Auto) 2.1 (0.0-7.0) % Baso % (Auto) 0.2 (0.0-3.0) % Neut # (Auto) 3.10 (1.7-7.0) K/uL Lymph # (Auto) 0.50 L (0.90-2.90) K/uL [place] # (Auto) 0.50 (0.00-0.90) K/UL Eos # (Auto) 0.10 (0.00-0.50) K/uL Baso # (Auto) 0.00 (0.00-0.30) K/uL Abs Immat Gran (auto) 0.00 (0.00-0.30) K/uL Imm/Tot Granulo (auto) 0.0 % INR 1.03 (0.91-1.10) APTT 42 H (23-33) Seconds Sodium 132 L (135-149) mmol/L Potassium 4.2 (3.6-5.1) mmol/L Chloride 101 (96-114) mmol/L Carbon Dioxide 28 (20-32) mmol/L Anion Gap 3 L (7-15) mEq/L BUN 32 H (7-30) mg/dL Creatinine 1.2 (0.5-1.5) mg/dL Estimated Creat Clear 36.45 Estimated GFR 47 ml/min Glucose 108 (60-115) mg/dL Calcium 9.0 (8.4-10.6) mg/dL Total Bilirubin 0.3 (0.1-1.5) mg/dL Direct Bilirubin 0.2 (0.0-0.5) mg/dL AST 25 (12-35) U/L ALT 14 (4-35) U/L Alkaline Phosphatase 84 (40-150) U/L Troponin I < 0.01 (0.01-0.04) ng/mL NT-Pro-B Natriuret Pep 418 H (See Note) pg/mL Total Protein 6.4 (6.0-8.3) g/dL Albumin 3.5 (3.3-5.0) g/dL Procalcitonin 0.05 (<0.50) ng/mL Lab Acknowledgement Test Added ECG Data Attestation: I personally reviewed and interpreted this ECG as follows: (Sinus rhythm with first-degree AV block. Rate of 89. no strain apparent) Critical Care Time Critical Care Time Critical Care Time: Yes Attestation: The patient required my highest level preparedness to intervene emergently and I personally spent this critical care time directly and personally managing the patient. This critical care time included: Obtaining a history; Examining the patient; Pulse oximetry; Ordering and reviewing of studies; Arranging urgent treatment with development of a management plan; Evaluation of patients response to treatment; Frequent reassessment discussions with other providers. This critical care time was performed to assess and manage the high probability of imminent life-threatening deterioration that could result in multiorgan failure. It was exclusive of separate billable procedures and treating other patients and teaching time. Total Critical Care Time in Minutes: 50 Discharge Plan Discharge Clinical Impression: IVC thrombosis, Pulmonary emboli, Hypertension Patient Disposition: Admitted As Inpatient Condition: Improved Activity Level: Activity as Tolerated Discharge Diet: Regular
[2025-07-15 15:50] LABS: Hematocrit* 32.6 % (33.0-51.0); Hemoglobin* 10.4 gm/dL (12.0-16.0); Immature Granulocytes Abs Auto 0.00 K/uL (0.00-0.30); Immature Granulocytes Pct Auto 0.0 %; Mean Corpuscular HGB Conc 32 gm/dL (32-36); Mean Corpuscular Hemoglobin 30 pg (26-34); Mean Corpuscular Volume 94 fL (80-100); RDW Coefficient of Variation % 14.8 % (11.5-15.5); Red Blood Count* 3.47 m/uL (4.00-5.20); White Blood Count* 4.26 K/uL (4.50-11.00)
--- NOTE | 2025-07-15 15:55 | CRLHL7_ITS ---
For Patients: As a result of the Century Cures Act, medical imaging exams and procedure reports are released immediately into your electronic medical record. You may view this report before your referring provider. If you have questions, please contact your health care provider. INDICATION: Pulmonary embolism seen on same-day CT abdomen and pelvis TECHNIQUE: CT chest PE was acquired with 95 cc Isovue 370 IV contrast. Coronal and MIP reconstructions were performed. COMPARISON: CT abdomen and pelvis with contrast 07/14/2025, PET-CT 06/30/2025, CT chest abdomen and pelvis without contrast 10/21/2024. FINDINGS: Heart and vasculature: Contrast opacification of the pulmonary arterial tree is adequate. There are multiple bilateral filling defects consistent with acute pulmonary emboli, most proximally involving the distal right interlobar pulmonary artery and the left inferior lobar pulmonary artery. Distal extension to segmental and subsegmental branches is seen in all lobes. The RV to LV ratio is less than 1. Heart size is normal. Thoracic aorta and pulmonary artery are normal in caliber. Lungs and pleura: There is peripheral consolidation and ground-glass opacification in the right middle lobe (series 7, image 69). Similar peripheral consolidation and patchy ground-glass opacities in the left lower lobe. No pleural effusion or pneumothorax. Lymph nodes/mediastinum: No mediastinal, hilar, or axillary adenopathy. Chest wall: Right port catheter in place. Otherwise unremarkable. Upper abdomen: Unchanged compared to CT abdomen and pelvis 07/14/2025 Bones: No acute or suspicious osseous abnormality. IMPRESSION: 1. Bilateral pulmonary emboli involving all lobes most proximally at the level of the right interlobar pulmonary artery. No CT evidence of right heart strain. 2. New peripheral consolidation in the right middle lobe could reflect pulmonary infarct versus new focus of organizing pneumonia. Peripheral left lower lobe consolidation appears similar compared to recent prior PET-CT. The above findings were communicated to Dr. Pathak at 16:46 PM on 07/15/2025. Please note that all CT scans at this facility use dose modulation, iterative reconstruction, and/or weight-based dosing when appropriate to reduce radiation dose to as low as reasonably achievable. Dictated by Haylie Vaughan MD @ 07/15/2025 4:51:09 PM (Electronically Signed)
[2025-07-15 15:57] LABS: Albumin* 3.5 g/dL (3.3-5.0); Chloride* 101 mmol/L (96-114)
[2025-07-15 15:58] LABS: Potassium* 4.2 mmol/L (3.6-5.1); Sodium* 132 mmol/L (135-149)
[2025-07-15 15:59] LABS: Lymphocytes Absolute Auto 0.50 K/uL (0.90-2.90); Slide Review Reflex No
[2025-07-15 16:00] LABS: Anion Gap 3 mEq/L (7-15); Blood Urea Nitrogen* 32 mg/dL (7-30); Carbon Dioxide* 28 mmol/L (20-32); Creatinine* 1.2 mg/dL (0.5-1.5); Est. Creatinine Clearance* 36.45; Estimated Glomerular Filt Rate 47 ml/min
[2025-07-15 16:01] LABS: Alanine Aminotransferase* 14 U/L (4-35); Alkaline Phosphatase* 84 U/L (40-150); Aspartate Amino Transferase* 25 U/L (12-35); Bilirubin Direct* 0.2 mg/dL (0.0-0.5); Bilirubin Total* 0.3 mg/dL (0.1-1.5); Calcium* 9.0 mg/dL (8.4-10.6); Glucose* 108 mg/dL (60-115); INR 1.03 (0.91-1.10); Prothrombin Time 14.3 Seconds; Total Protein* 6.4 g/dL (6.0-8.3)
[2025-07-15] MEDS: HEPARIN 5,000 UNIT/0.5 ML INJ 5300 UNIT IVP (16:38)
[2025-07-15] MEDS: 0.9 % SODIUM CHLORIDE 500 ML 500 ML 1000 ML IV (16:38)
[2025-07-15] MEDS: HEPARIN 25,000 UNIT/500 ML BAG 24 UNIT IV (16:39)
[2025-07-15 17:04] LABS: NT Pro B Type NatriureticPept* 418 pg/mL (See Note)
--- NOTE | 2025-07-15 19:38 | PM.IMHP1 ---
Assessment and Plan Assessment and plan (1) Pulmonary emboli: Problem comment: -CTA shows Bilateral pulmonary emboli involving all lobes most proximally at the level of the right interlobar pulmonary artery. No CT evidence of right heart strain -Imaging also shows new peripheral consolidation in the right middle lobe which I suspect is a pulmonary infarct rather than a pneumonia. Afebrile, no respiratory symptoms, WBC at baseline. Procalcitonin has been added. Monitor for new or worsening symptoms given state of immunocompromise -continue heparin per protocol, bolus initiated in ED -I do not see a recent echocardiogram in EMR, no heart strain indicated on CT. Defer for now unless new or worsening symptoms -Oncology aware of CT findings (admitted after clinic hours otherwise) Status: Acute (2) IVC thrombosis: Problem comment: -CT shows IVC thrombus and thrombus extending into the proximal right renal vein and right common iliac vein -management with heparin Status: Acute (3) Chronic hyponatremia: Problem comment: -sodium 132, baseline for patient, continue to monitor Status: Acute (4) Hypertension: Problem comment: -continue home medications Status: Acute (5) Anemia: Problem comment: Hemoglobin 10.4, baseline Suspect anemia of chronic disease in setting of active cancer and therapies. No current or recent notable concern for acute blood loss as cause Status: Acute (6) Cervical cancer: Problem comment: -clinical stage BRICE cervical cancer, s/p definitive concurrent chemoradiation with weekly carboplatin + pembrolizumab (cycle 6 completed on 06/13/2025) -followed by [facility], Dr. Almanzar and Gris Huddleston -next scheduled appointment July 26 Status: Acute (7) H/O insertion of nephrostomy tube: Problem comment: - 01/07/25 insertion at [facility] - Bilateral neph tube exchange 04/29/25 at [facility], scheduled for replacement in 3 months at [facility] Status: Acute (8) Lung consolidation: Problem comment: -CTA chest shows chronic Peripheral left lower lobe consolidation appears similar compared to recent prior PET-CT -CTA chest shows new peripheral consolidation in the right middle lobe could reflect pulmonary infarct versus new focus of organizing pneumonia. As above, suspect infarct, continuing to monitor Status: Acute Total Time Spent Total Time Spent: Today I spent 75 minutes seeing the patient, reviewing Expanse and EPIC notes/diagnostics, discussing the care plan with our care time that includes social work, PT/OT, pharmacy, RT, prison and documenting my impressions and plan in the medical record. 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 Patient reports feeling more fatigued and very mildly short of breath for the last 7-10 days. Denies any sort of decrease in activity secondary to shortness of breath, again reporting it to be very minor. Just in general has not felt as well. Denies headaches or dizziness. Denies chest pain at all. No recent fevers. Denies recent nausea vomiting. Has had right-sided abdominal pain for some time. Known mass of the cervix, uterine fibroids, increased stools noted within recent CTs. No significant change in stools, typically more constipated is her norm. Most recently saw her PCP, Dr. Palomo, on 07/11/2025. Had a CT scan of the abdomen pelvis on 07/14/2025. Saw ID today 07/15/2025 for recurrent UTIs. A follow-up phone call today 07/15/2025 reviewing clots noted on the CT from yesterday recommending the patient to be further evaluated. CT abdomen pelvis 07/14 shows bilateral pulmonary emboli, IVC thrombus and thrombus extending into the proximal right renal vein and right common iliac vein. CTA chest 07/15 shows bilateral pulmonary emboli involving all lobes most proximally at the level of the right interlobar pulmonary artery. No CT evidence of right heart strain. ED provider discussed with [facility] hospitalist, Hematology, non destructive tester all recommending local hospitalization with heparinization and further decision for DOAC or Lovenox when appropriate. No current recommendations for thrombectomy or lytics. Patient's PCP is Dr. Palomo. Advanced directives have been updated to DNR/DNI. Review of Systems Narrative: REVIEW OF SYSTEMS: Complete review of systems performed and negative unless otherwise stated in HPI or below. Medical Decision Making Medical Decision Making Code Status: DNR/DNI Has patient completed a Health Care Directive: Yes PFSH [facility] Medical History (Updated 07/15/25 @ 20:14 by Jossie Herrera PA-C) Lung consolidation ?J18.1 - Lobar pneumonia, unspecified organism (ICD-10) Complicated urinary tract infection ?N39.0 - Urinary tract infection, site not specified (ICD-10) [place] (acute kidney injury) ?N17.9 - Acute kidney failure, unspecified (ICD-10) Ureteral obstruction ?N13.5 - Crossing vessel and stricture of ureter without hydronephrosis (ICD-10) Squamous cell carcinoma of cervix ?C53.9 - Malignant neoplasm of cervix uteri, unspecified (ICD-10) Hyponatremia ?E87.1 - Hypo-osmolality and hyponatremia (ICD-10) Pure hypercholesterolemia ?E78.00 - Pure hypercholesterolemia, unspecified (ICD-10) Essential hypertension ?I10 - Essential (primary) hypertension (ICD-10) Surgical History (Updated 07/15/25 @ 20:11 by Jossie Herrera PA-C) H/O insertion of nephrostomy tube ?Z98.890 - Other specified postprocedural states (ICD-10) Social History What is your current living situation?: I presently have a place to live Problems where you live: no known problems Problems where you live details: N/A In the past 12 months, utilities in danger of being shut off: no In past 12 months, lack of transportation kept you from medical appts, meetings, work, or getting things needed for daily living: no In the past 12 mos, have been you worried that your food would run out before you had money to buy more?: never true In the past 12 mos, the food you bought just didn't last and you didn't have money to buy more?: never true Highest level of school completed/degree received: Bachelor's degree Smoking Status: Never smoker Second hand tobacco smoke exposure: No How often do you have a drink containing alcohol: never AUDIT-C Alcohol total score: 0 Non-prescribed substance use: denies use Caffeine: Yes (1c/day) How often does anyone, including family, friends and others, physically hurt you: never How often does anyone, including family, friends and others, insult or talk down to you: never How often does anyone, including family, friends and others, threaten you with harm: never How often does anyone, including family, friends and others, scream or curse at you: never Are you using contraception or practicing any form of control: No service: No Meds Home Medications and Allergies Home Medications ?Medication ?Instructions ?Recorded ?Confirmed ?Type coenzyme Q10 100 mg capsule (Co 100 mg PO DAILY 02/10/25 07/15/25 History Q-10) omega-3 fatty acids-fish oil 360 1 cap PO DAILY 02/10/25 07/15/25 History mg-1,200 mg capsule loperamide 2 mg capsule (Imodium 2 mg PO QID PRN 03/07/25 06/13/25 History A-D) trazodone 50 mg tablet 50 mg PO HS 03/14/25 07/15/25 History carvedilol 25 mg tablet 25 mg PO BID 04/28/25 07/15/25 History Allergies Allergy/AdvReac Type Severity Reaction Status Date / Time ciprofloxacin (From Cipro) AdvReac Intermediate Diarrhea, Verified 07/14/25 13:40 calf cramping Exam Narrative: Exam Narrative: PHYSICAL EXAM General: Pleasant, conversant, NAD HEENT: Normocephalic, atraumatic, sclera white, EOMI, oral mucosa moist Cardiovascular: RRR, S1S2. Mild nonpitting edema bilaterally Pulmonary: CTA bilaterally without rhonchi, rales, expiratory wheezes. No dyspnea Abdominal: Soft, nondistended, NTTP, no guarding, unable to elicit right-sided pain Neurological: Alert, answering questions appropriately, cranial nerves intact, no focal findings Extremities: No gross joint deformity or swelling. AROMI. Neurovascularly intact, distal pulses intact Skin: Warm, dry. Const: Vital Signs, click to edit/add: Vital Signs - 24 hr 07/15/25 14:28 07/15/25 14:30 07/15/25 14:31 Temperature 98.5 F Pulse Rate 89 94 Pulse Rate [Pulse Oximeter] 91 Respiratory Rate 20 18 Blood Pressure 183/104 H Blood Pressure [Le ft Upper Arm] 183/104 H Pulse Oximetry 98 97 96 Oxygen Delivery Me thod Room Air 07/15/25 14:45 07/15/25 15:00 07/15/25 15:01 Temperature Pulse Rate 86 87 86 Pulse Rate [Pulse Oximeter] Respiratory Rate 16 Blood Pressure 170/116 H Blood Pressure [Le ft Upper Arm] Pulse Oximetry 96 96 98 Oxygen Delivery Me thod Room Air 07/15/25 15:15 07/15/25 15:30 07/15/25 16:01 Temperature Pulse Rate 83 86 Pulse Rate [Pulse Oximeter] Respiratory Rate Blood Pressure 168/94 H Blood Pressure [Le ft Upper Arm] Pulse Oximetry 97 96 Oxygen Delivery Me thod 07/15/25 16:48 07/15/25 16:50 07/15/25 16:51 Temperature Pulse Rate 88 89 85 Pulse Rate [Pulse Oximeter] Respiratory Rate 16 Blood Pressure 170/96 H Blood Pressure [Le ft Upper Arm] Pulse Oximetry 95 97 97 Oxygen Delivery Me thod Room Air 07/15/25 17:01 07/15/25 17:54 07/15/25 18:00 Temperature Pulse Rate 103 H 96 Pulse Rate [Pulse Oximeter] Respiratory Rate Blood Pressure 177/99 H Blood Pressure [Le ft Upper Arm] Pulse Oximetry 91 97 Oxygen Delivery Me thod 07/15/25 18:01 Temperature Pulse Rate 97 Pulse Rate [Pulse Oximeter] Respiratory Rate 16 Blood Pressure 147/92 H Blood Pressure [Le ft Upper Arm] Pulse Oximetry 98 Oxygen Delivery Me thod Room Air Hospitalist - H&P: Result Labs Labs: Short CBC 07/15/25 Range/Units 15:39 WBC 4.26 L (4.50-11.00) K/uL Hgb 10.4 L (12.0-16.0) gm/dL Hct 32.6 L (33.0-51.0) % Plt Count 150 (140-440) K/uL BMP 07/15/25 15:39 Sodium 132 L Potassium 4.2 Chloride 101 Carbon Dioxide 28 BUN 32 H Creatinine 1.2 Glucose 108 Calcium 9.0 Cardiac Enzymes 07/15/25 Range/Units 15:39 Troponin I < 0.01 (0.01-0.04) ng/mL Liver Function 07/15/25 Range/Units 15:39 Total Bilirubin 0.3 (0.1-1.5) mg/dL Direct Bilirubin 0.2 (0.0-0.5) mg/dL AST 25 (12-35) U/L ALT 14 (4-35) U/L Alkaline Phosphatase 84 (40-150) U/L Albumin 3.5 (3.3-5.0) g/dL ECG Attestation: I personally reviewed and interpreted this ECG as follows: Interpretation: Sinus rhythm, first-degree AV block, ventricular rate [address] scan - abdomen: Attestation: I have reviewed the pertinent imaging results. Radiologist's impression: In the lung bases, bilateral pulmonary emboli are noted. Decreased left pleural effusion. Residual subpleural densities left lateral lung base. In the abdomen, aortocaval adenopathy is present corresponding with the prior CT PET and measures 1.9 cm. Additional numerous other sub cm aortocaval and left periaortic lymph nodes are present elsewhere in the retroperitoneum. Bilateral nephrostomy tubes are present. No hydronephrosis. Chronic fat density area within the right kidney with associated right renal cortical thinning. Spleen is unremarkable with incidental adjacent splenule. Cystic pancreatic lesion in the pancreatic tail measures 1.4 cm, similar to the 01/06/2025 CT. Gallbladder incompletely distended. No intrahepatic mass. Faint nodular densities are present within the left anterior mesenteric fat, measuring less than 1 cm, see series 2, image 83. This appears to correspond with the CT PET and appear to be unchanged compared to 01/06/2025. Thrombus is noted within the inferior vena cava extending from just superior to the renal veins and extending inferiorly into the right common iliac vein. Clot also appears to extend into the proximal right renal vein. No fracture is present. In the pelvis, a lobular low-density cervical mass is again noted which measures 3.3 x 2.3 x 2.7 cm in the anterior-posterior, craniocaudad and transverse dimensions, respectively. Uterine fibroids are present, including a posterior exophytic fibroid which measures 5 cm. There is also a left posterior calcified exophytic fibroid which measures 2.6 cm. Increased stool noted within the rectum. No mechanical bowel obstruction. 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 Called to Gris in the [facility] at 1025 am 10.24.25. Compared to the recent CT PET, similar size of the low-density cervical mass measuring 3.3 cm. Also similar are retroperitoneal lymph nodes measuring up to 1.9 cm. Nodular densities in the left anterior mesenteric fat are unchanged compared to prior CT 01/06/2025. Resolution of small left pleural effusion with residual scarring in the periphery of the left lower lobe. Bilateral nephrostomy tubes. No hydronephrosis. CTA chest: Attestation: I have reviewed the pertinent imaging results. Radiologist's impression: Heart and vasculature: Contrast opacification of the pulmonary arterial tree is adequate. There are multiple bilateral filling defects consistent with acute pulmonary emboli, most proximally involving the distal right interlobar pulmonary artery and the left inferior lobar pulmonary artery. Distal extension to segmental and subsegmental branches is seen in all lobes. The RV to LV ratio is less than 1. Heart size is normal. Thoracic aorta and pulmonary artery are normal in caliber. Lungs and pleura: There is peripheral consolidation and ground-glass opacification in the right middle lobe (series 7, image 69). Similar peripheral consolidation and patchy ground-glass opacities in the left lower lobe. No pleural effusion or pneumothorax. Lymph nodes/mediastinum: No mediastinal, hilar, or axillary adenopathy. Chest wall: Right port catheter in place. Otherwise unremarkable. Upper abdomen: Unchanged compared to CT abdomen and pelvis 07/14/2025 Bones: No acute or suspicious osseous abnormality. IMPRESSION: 1. Bilateral pulmonary emboli involving all lobes most proximally at the level of the right interlobar pulmonary artery. No CT evidence of right heart strain. 2. New peripheral consolidation in the right middle lobe could reflect pulmonary infarct versus new focus of organizing pneumonia. Peripheral left lower lobe consolidation appears similar compared to recent prior PET-CT. The above findings were communicated to Dr. Pathak at 16:46 PM on 07/15/2025.
[2025-07-15] MEDS: MELATONIN 3 MG TABLET PO (20:23)
[2025-07-15] MEDS: TRAZODONE HCL 50 MG TABLET PO (20:23)
[2025-07-15] MEDS: SODIUM CHLORIDE 0.9 % (FLUSH) 10 ML SYRINGE 5 ML IVF (20:24)
[2025-07-15 20:44] LABS: Procalcitonin* 0.05 ng/mL (<0.50)
--- NOTE | 2025-07-15 23:36 | PC.NURSE ---
C[employer] Instructor called lab at 1950 to communicate order was being put in for 0 PTT draw. Culinary [employer] Instructor called again after 2229 to remind lab staff that 0 PTT ordered. Lab staff fredrick PTT at 230- awaiting results at this time.
--- NOTE | 2025-07-15 23:51 | PC.NURSE ---
2300 PTT came back >180. Per protocol gtt Stopped for 1 hour. Restart with 3u/kg/hr decrease. Jorge works out to be restart gtt at time 0045, 1000u/kg/hr which is 20m/hr. Next lab draw will be 0645. Provider Notified. Charge Verified.
[2025-07-16 02:25] VITALS: BP 128/92; PULSE 90; RESP 16; TEMP 36.2; O2SAT 95
[2025-07-16 06:14] LABS: Hematocrit* 34.8 % (33.0-51.0); Hemoglobin* 11.1 gm/dL (12.0-16.0); Mean Corpuscular HGB Conc 32 gm/dL (32-36); Mean Corpuscular Hemoglobin 30 pg (26-34); Mean Corpuscular Volume 93 fL (80-100); Red Blood Count* 3.73 m/uL (4.00-5.20); White Blood Count* 3.81 K/uL (4.50-11.00)
--- NOTE | 2025-07-16 06:14 | PC.NURSE ---
Pt up IND reporting zero pain. Heparin ggt running per protocol. Pt pleasant and cooperative.
[2025-07-16 06:22] LABS: Slide Review Reflex No
[2025-07-16 06:38] LABS: INR 1.05 (0.91-1.10); Prothrombin Time 14.7 Seconds
[2025-07-16 07:00] VITALS: BP 130/84; PULSE 83; RESP 16; RESP 18; TEMP 36.4; O2SAT 98
[2025-07-16] MEDS: SENNOSIDES 1 TAB TABLET 2 TAB PO (09:11)
--- NOTE | 2025-07-16 10:04 | PM.DS1 ---
DS: Providers Provider Time Seen by Provider: 08:00 Date Seen: 07/16/25 Date of admission: 07/15/25 18:52 Primary care physician: Axel Palomo MD Admitting Clinician: Lizet Rust MD Attending Physician on discharge: Anabell Espinoza MD Date of Discharge: 07/16/25 DS: Diagnosis Discharge Diagnosis (1) Pulmonary emboli: Status: Acute Problem details: -CTA shows Bilateral pulmonary emboli involving all lobes most proximally at the level of the right interlobar pulmonary artery. No CT evidence of right heart strain -Imaging also shows new peripheral consolidation in the right middle lobe which I suspect is a pulmonary infarct rather than a pneumonia. Afebrile, no respiratory symptoms, WBC at baseline. Procalcitonin has been added. Monitor for new or worsening symptoms given state of immunocompromise -continue heparin per protocol, bolus initiated in ED -I do not see a recent echocardiogram in EMR, no heart strain indicated on CT. Defer for now unless new or worsening symptoms -Oncology aware of CT findings (admitted after clinic hours otherwise) - Doing well. Vitals stable. No hypoxia, hypotension, dyspnea or significant tachycardia. Transitioned over to DOAC, off heparin. Discharging home, follow up with oncology as outpatient. (Patient wants to see oncologist regarding anticoagulation and clots in the setting of cancer and treatment for cancer). (2) IVC thrombosis: Status: Acute Problem details: -CT shows IVC thrombus and thrombus extending into the proximal right renal vein and right common iliac vein -management with heparin - 07/16 doing well. Transitioning to DOAC for discharge home, as above. (3) Chronic hyponatremia: Status: Chronic Problem details: -sodium 132, baseline for patient (4) Hypertension: Status: Chronic Problem details: -continue home medications (5) Anemia: Status: Chronic Problem details: Hemoglobin 10.4, baseline Suspect anemia of chronic disease in setting of active cancer and therapies. No current or recent notable concern for acute blood loss as cause - 07/16 Hgb 11.1 today, improving/stable (6) Cervical cancer: Status: Chronic Problem details: -clinical stage BRICE cervical cancer, s/p definitive concurrent chemoradiation with weekly carboplatin + pembrolizumab (cycle 6 completed on 06/13/2025) -followed by [facility], Dr. Almanzar and Gris Huddleston -next scheduled appointment July 26 (7) H/O insertion of nephrostomy tube: Status: Acute Problem details: - 01/07/25 insertion at [facility] - Bilateral neph tube exchange 04/29/25 at [facility], scheduled for replacement in 3 months at [facility] (8) Lung consolidation: Status: Acute Problem details: -CTA chest shows chronic Peripheral left lower lobe consolidation appears similar compared to recent prior PET-CT -CTA chest shows new peripheral consolidation in the right middle lobe could reflect pulmonary infarct versus new focus of organizing pneumonia. As above, suspect infarct, continuing to monitor - 07/16 Procalcitonin reassuring, this is likely pulmonary infarct as opposed to infectious process. Not hypoxic. F/u with oncology and ID as previously scheduled, PCP as needed. (9) Dysuria: Status: Acute Problem details: - Unclear if this is early UTI. Patient unable to produce urine for UA/UC. She is not febrile and has no other concerning symptoms or labs to indicate UTI. If persistent, see PCP for UA/UC. 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 She saw her primary care provider on 07/11. She had a CT abdomen and pelvis on 07/14/2025 and then saw Infectious Disease on 07/15/2025 for recurrent urinary tract infections. The CT abdomen and pelvis from 07/14 showed bilateral pulmonary emboli and IVC for thrombus which extended into the proximal right renal vein and right common iliac vein. The provider called her and she presented to the emergency department where she had a CTA of her chest yesterday that showed bilateral pulmonary emboli involving all lobes most proximally at the level of the right intra lobular pulmonary artery with no CT evidence of right heart strain. She was started on IV heparin and the case was discussed with [facility] hospitalist, hematology and psychologist experimental all of whom recommended local hospitalization with heparinization and further decision for duo acro Lovenox when appropriate. It was not recommended that she undergo thrombectomy or lytics at this time. She did well on heparin overnight without hypoxia, dyspnea, hypotension, or significant tachycardia. She was transitioned over to a DOAC today and is discharged home in stable condition. I have asked her to follow-up with her oncologist this week for a check in and to see how she is doing on the DOAC. Also of note is that she had a complaint of mild dysuria after getting IV fluids. I note that her procalcitonin is reassuring, white count is reassuring, and she has been afebrile. She has not had any hypotension. A urinalysis was ordered, but patient has not made much urine and this can be done as an outpatient if she has ongoing symptoms. Time Spent with Patient Time attestation: Total time spent providing and/or coordinating discharge services: Today I spent 40 minutes seeing and discharging the patient, reviewing Expanse and EPIC notes/diagnostics/labs, discussing the care plan with our care team that includes social work, PT/OT, pharmacy, RT, senior living and documenting my impressions and plan in the medical record. Exam Narrative: Exam Narrative: General: No acute distress. Awake, alert, oriented x3. No pallor. No jaundice. Oropharynx: Clear. Mucous membranes moist. Cardiovascular: Regular rate and rhythm. No murmurs, gallops, or rubs. Respiratory: Clear to auscultation bilaterally. No wheezes or crackles. Abdomen: Bowel sounds present. Soft, nondistended, nontender. Extremities: No lower extremity edema. Const: Vital Signs, click to edit/add: Vital Signs - 24 hr 07/15/25 14:28 07/15/25 14:30 07/15/25 14:31 Temperature 98.5 F Pulse Rate 89 94 Pulse Rate [Left R adial] Pulse Rate [Pulse Oximeter] 91 Respiratory Rate 20 18 Blood Pressure 183/104 H Blood Pressure [Le ft Arm] Blood Pressure [Le ft Upper Arm] 183/104 H Pulse Oximetry 98 97 96 Oxygen Delivery Me thod Room Air 07/15/25 14:45 07/15/25 15:00 07/15/25 15:01 Temperature Pulse Rate 86 87 86 Pulse Rate [Left R adial] Pulse Rate [Pulse Oximeter] Respiratory Rate 16 Blood Pressure 170/116 H Blood Pressure [Le ft Arm] Blood Pressure [Le ft Upper Arm] Pulse Oximetry 96 96 98 Oxygen Delivery Me thod Room Air 07/15/25 15:15 07/15/25 15:30 07/15/25 16:01 Temperature Pulse Rate 83 86 Pulse Rate [Left R adial] Pulse Rate [Pulse Oximeter] Respiratory Rate Blood Pressure 168/94 H Blood Pressure [Le ft Arm] Blood Pressure [Le ft Upper Arm] Pulse Oximetry 97 96 Oxygen Delivery Me thod 07/15/25 16:48 07/15/25 16:50 07/15/25 16:51 Temperature Pulse Rate 88 89 85 Pulse Rate [Left R adial] Pulse Rate [Pulse Oximeter] Respiratory Rate 16 Blood Pressure 170/96 H Blood Pressure [Le ft Arm] Blood Pressure [Le ft Upper Arm] Pulse Oximetry 95 97 97 Oxygen Delivery Me thod Room Air 07/15/25 17:01 07/15/25 17:54 07/15/25 18:00 Temperature Pulse Rate 103 H 96 Pulse Rate [Left R adial] Pulse Rate [Pulse Oximeter] Respiratory Rate Blood Pressure 177/99 H Blood Pressure [Le ft Arm] Blood Pressure [Le ft Upper Arm] Pulse Oximetry 91 97 Oxygen Delivery Me thod 07/15/25 18:01 07/15/25 19:46 07/15/25 19:50 Temperature 97.8 F 97.8 F Pulse Rate 97 Pulse Rate [Left R adial] 101 H 101 H Pulse Rate [Pulse Oximeter] Respiratory Rate 16 16 16 Blood Pressure 147/92 H Blood Pressure [Le ft Arm] 146/91 H 146/91 H Blood Pressure [Le ft Upper Arm] Pulse Oximetry 98 96 96 Oxygen Delivery Me thod Room Air Room Air Room Air 07/15/25 20:02 07/15/25 20:12 07/15/25 22:49 Temperature 97.5 F L Pulse Rate 99 Pulse Rate [Left R adial] 101 H Pulse Rate [Pulse Oximeter] Respiratory Rate 16 16 Blood Pressure Blood Pressure [Le ft Arm] 138/98 H Blood Pressure [Le ft Upper Arm] Pulse Oximetry 96 95 Oxygen Delivery Me thod Room Air Room Air 07/15/25 22:50 07/16/25 02:25 07/16/25 07:00 Temperature 97.1 F L Pulse Rate Pulse Rate [Left R adial] 101 H 90 83 Pulse Rate [Pulse Oximeter] Respiratory Rate 16 16 16 Blood Pressure Blood Pressure [Le ft Arm] 128/92 H Blood Pressure [Le ft Upper Arm] Pulse Oximetry 95 Oxygen Delivery Me thod Room Air 07/16/25 07:00 07/16/25 07:00 Temperature 97.6 F Pulse Rate 83 Pulse Rate [Left R adial] 83 Pulse Rate [Pulse Oximeter] Respiratory Rate 18 Blood Pressure Blood Pressure [Le ft Arm] 130/84 Blood Pressure [Le ft Upper Arm] Pulse Oximetry 98 Oxygen Delivery Ga thod Room Air DS: Data Data Completed and Pending Completed studies during hospitalization: 07/15/2025 EKG: Sinus rhythm with first-degree AV block, 89 beats per minute, left anterior fascicular block, minimal voltage criteria for LVH, maybe normal variant. Ordering Physician: Leonel Pathak M.D. Date of Service: 07/15/25 Procedure(s): CT angio chest PE protocol Accession Number(s): [id number] cc: Leonel Pathak M.D.; Axel Palomo M.D.~ For Patients: As a result of the Cures Act, medical imaging exams and procedure reports are released immediately into your electronic medical record. You may view this report before your referring provider. If you have questions, please contact your health care provider. INDICATION: Pulmonary embolism seen on same-day CT abdomen and pelvis TECHNIQUE: CT chest PE was acquired with 95 cc Isovue 370 IV contrast. Coronal and MIP reconstructions were performed. COMPARISON: CT abdomen and pelvis with contrast 07/14/2025, PET-CT 06/30/2025, CT chest abdomen and pelvis without contrast 10/21/2024. FINDINGS: Heart and vasculature: Contrast opacification of the pulmonary arterial tree is adequate. There are multiple bilateral filling defects consistent with acute pulmonary emboli, most proximally involving the distal right interlobar pulmonary artery and the left inferior lobar pulmonary artery. Distal extension to segmental and subsegmental branches is seen in all lobes. The RV to LV ratio is less than 1. Heart size is normal. Thoracic aorta and pulmonary artery are normal in caliber. Lungs and pleura: There is peripheral consolidation and ground-glass opacification in the right middle lobe (series 7, image 69). Similar peripheral consolidation and patchy ground-glass opacities in the left lower lobe. No pleural effusion or pneumothorax. Lymph nodes/mediastinum: No mediastinal, hilar, or axillary adenopathy. Chest wall: Right port catheter in place. Otherwise unremarkable. Upper abdomen: Unchanged compared to CT abdomen and pelvis 07/14/2025 Bones: No acute or suspicious osseous abnormality. IMPRESSION: 1. Bilateral pulmonary emboli involving all lobes most proximally at the level of the right interlobar pulmonary artery. No CT evidence of right heart strain. 2. New peripheral consolidation in the right middle lobe could reflect pulmonary infarct versus new focus of organizing pneumonia. Peripheral left lower lobe consolidation appears similar compared to recent prior PET-CT. The above findings were communicated to Dr. Pathak at 16:46 PM on 07/15/2025. Please note that all CT scans at this facility use dose modulation, iterative reconstruction, and/or weight-based dosing when appropriate to reduce radiation dose to as low as reasonably achievable. Dictated by Haylie Vaughan MD @ 07/15/2025 4:51:09 PM (Electronically Signed) Labs on day of discharge: Labs from last 24 hours 07/16/25 07/16/25 07/15/25 06:58 05:28 23:03 WBC 3.81 L RBC 3.73 L Hgb 11.1 L Hct 34.8 MCV 93 MCH 30 MCHC 32 RDW Coeff of Myrna Plt Count 156 Neut % (Auto) Lymph % (Auto) Laurens % (Auto) Eos % (Auto) Baso % (Auto) Neut # (Auto) Lymph # (Auto) Laurens # (Auto) Eos # (Auto) Baso # (Auto) Abs Immat Gran (auto) Imm/Tot Granulo (auto) INR 1.05 APTT 137 H* > 180 H* Sodium Potassium Chloride Carbon Dioxide Anion Gap BUN Creatinine Estimated Creat Clear Estimated GFR Glucose Calcium Total Bilirubin Direct Bilirubin AST ALT Alkaline Phosphatase Troponin I NT-Pro-B Natriuret Pep Total Protein Albumin Procalcitonin Lab Acknowledgement 07/15/25 07/15/25 07/15/25 19:57 16:20 15:39 WBC 4.26 L RBC 3.47 L Hgb 10.4 L Hct 32.6 L MCV 94 MCH 30 MCHC 32 RDW Coeff of Myrna 14.8 Plt Count 150 Neut % (Auto) 73.3 H Lymph % (Auto) 12.4 L Laurens % (Auto) 12.0 H Eos % (Auto) 2.1 Baso % (Auto) 0.2 Neut # (Auto) 3.10 Lymph # (Auto) 0.50 L [place]rens # (Auto) 0.50 Eos # (Auto) 0.10 Baso # (Auto) 0.00 Abs Immat Gran (auto) 0.00 Imm/Tot Granulo (auto) 0.0 INR 1.03 APTT 42 H Sodium 132 L Potassium 4.2 Chloride 101 Carbon Dioxide 28 Anion Gap 3 L BUN 32 H Creatinine 1.2 Estimated Creat Clear 36.45 Estimated GFR 47 Glucose 108 Calcium 9.0 Total Bilirubin 0.3 Direct Bilirubin 0.2 AST 25 ALT 14 Alkaline Phosphatase 84 Troponin I < 0.01 NT-Pro-B Natriuret Pep 418 H Total Protein 6.4 Albumin 3.5 Procalcitonin 0.05 Lab Acknowledgement Test Added Test Added Discharge Plan Discharge Disposition: Home, Self-Care Date of Admission: 07/15/25 18:52 Attending Provider on Discharge: Anabell Espinoza Primary Care Provider: Axel Palomo Condition: Improved Anticipated Discharge Date/Time: 07/16/25 13:00 Discharge Medications: New Eliquis 5 mg tablet See Rx Instructions .ROUTE .COMPLEX Qty: 74 0RF Rx Instructions: 10 mg po twice a day for 7 days, then 5 mg po twice a day. Continued loperamide [Imodium A-D] 2 mg capsule 2 mg PO QID PRN coenzyme Q10 [Co Q-10] 100 mg capsule 100 mg PO DAILY omega-3 fatty acids-fish oil 360-1,200 mg capsule 1 cap PO DAILY trazodone 50 mg tablet 50 mg PO HS carvedilol 25 mg tablet 25 mg PO BID sennosides-docusate sodium [Senna with Docusate Sodium] 8.6-50 mg tablet 1 tab-cap PO BID polyethylene glycol 3350 17 gram powder in packet 17 g PO DAILY Discharge Orders: Discharge Order (Routine); Ordered 07/16/25 Ordered By: Anabell Espinoza Patient Education: Apixaban (By mouth) (Eliquis), Pulmonary Embolism (DC) Additional Instructions: See oncology this week Activity Level: Activity as Tolerated Discharge Diet: Regular Follow Up Appointments: Axel Palomo MD [Primary Care Provider, Family Practice] Forms: [facility] Info Instructions
--- NOTE | 2025-07-16 10:59 | RESP.RT ---
Patient with PE, discussed with patient breathing, no SOB noted while walking in the had. Patient stated she has had very little SOB in the last few days. Discussed with patient what she could do for exercise for her breathing, walking as much as she was capable, short periods of exercise walking. Patient lives hi split level house with several sets of 8 stairs, suggested she walk them a few times a day, rest as needed. Patient stated she would try that.
[2025-07-16 11:00] VITALS: BP 124/78; PULSE 82; RESP 18; TEMP 36.4; O2SAT 98
[2025-07-16] MEDS: APIXABAN 5 MG TABLET 10 MG PO (11:21)
[2025-07-16 12:36] LABS: Appearance Urine Cloudy (Clear)
[2025-07-16] MEDS: SODIUM CHLORIDE 0.9 % (FLUSH) 10 ML SYRINGE 5 ML IVF (12:58)
[2025-07-16] MEDS: HEPARIN 500 UNIT/5 ML SYRINGE IVF (12:59)
--- NOTE | 2025-07-16 13:50 | PC.NURSE ---
End of shift report [id number]: Pleasant and cooperative with cares. Denies any chest pain, SOB or dyspnea. Lung sounds clear throughout lung [place] posteriorly. Denies cough. O2 sats 98% on RA. Heparin titrated per protocol. Patient transitioned to oral anticoagulants. Tolerating activity well, denies SOB with exertion and sats remained 97-98% post activity. Pedal pulses intact, now redness or swelling to extremities.
== END 2025-07-16 13:08 | disposition home or self-care (01) | DRG 175 ==
LOC: ED 18:31 → MEDSURG 18:53
PROVIDERS: Family Medicine; Admitting Provider Physician Assistant; Emergency Provider Family Medicine; PCP Family Medicine; Visit Provider Family Medicine
DX: I26.94 Multiple subsegmental thrombotic pulmonary emboli without acute cor pulmonale (principal); I82.220 Acute embolism and thrombosis of inferior vena cava; I82.421 Acute embolism and thrombosis of right iliac vein; I82.3 Embolism and thrombosis of renal vein; E87.1 Hypo-osmolality and hyponatremia; J90 Pleural effusion, not elsewhere classified; I26.99 Other pulmonary embolism without acute cor pulmonale; Z93.6 Other artificial openings of urinary tract status; I10 Essential (primary) hypertension; C53.9 Malignant neoplasm of cervix uteri, unspecified; D63.8 Anemia in other chronic diseases classified elsewhere; R30.0 Dysuria; Z87.440 Personal history of urinary (tract) infections
CPT/HCPCS: 36415; 71275; 80048; 80076; 81001; 83880; 84145; 84484; 85025; 85027; 85610; 85730; 87086; 99284; 99285; 99291; A9270; J1642; J1644; J7030; Q9967

== ENCOUNTER 2025-07-17 12:42 | Emergency (ER) | payer MEDICARE, BC, SELFPAY ==
--- OUTSIDE RECORDS SUMMARY | 2025-06-23 14:00 | XMS_ITS | Encounter Summary ---
Author Organization [facility] Address [address] [place] [address] Phone Care Team Providers Care Global Lead Name Role Phone Votel, Axel PALMA Primary Care Provider [phone] Reason for Referral * Consultation (Routine) - Pending Review Specialty Diagnoses / Procedures Referred By Pastora piedra Referred To Contact Diagnoses History of acute kidney injury Urinary tract infection, not otherwise specified Hydroureteronephrosis Hoang Galvez MD [address] [place] [address] Phone: tel: fax: Referral ID Status Reason Start Date Expiration Date Visits Requested Visits Authorized [id number] Pending Review Specialty Services Required 06/23/2025 06/23/2026 1 1 Reason for Visit * Reason Comments CKD New Patient * Nephrology Services (Routine) - Closed Specialty Diagnoses / Procedures Referred By Pastora piedra Referred To Contact Nephrology Diagnoses Other specified postprocedural state Votel, MD Axel [address] [place] [address] Phone: tel: fax: [facility] [address] [place] [address] Phone: tel: fax: Referral ID Status Reason Start Date Expiration Date Visits Re quested Visits Authorized [id number] Closed 05/18/2025 05/18/2026 1 1 Encounter Details Date Type Department Care Team (Late st Contact Info) Description 06/23/2025 2:00 PM CDT Office Visit [facility] [place] [address] [place] [address] Hoang Galvez MD [address] [place] [address] History of acute kidney injury [...] follow up needed. At [facility] [place], our goal is to work with you [...] all of us at [facility] documented in this encounter Progress Notes * Hoang Galvez MD - 06/23/2025 2:00 PM CDT Images from the original note were not included. Patient: Alyssa Garcia Date of : 1950 Chart: [id number] PCP: Axel Palomo MD ([facility]) Referring Provider: Axel Palomo MD Date [...] to 7.2 so she was transferred to [place]. CT AP at that time showed new [...] to be performed. Concern for underlying malignancy, dry room operator/onc consulted. Pelvic MRI demonstrated likely cervical primary with invasion of the posterior bladder and anterior mesorectal fascia. S/p exam under anesthesia and biopsy 01/13. Plan to follow up with dry room operator/onc for outpatient PET scan and given renal function had improved to follow with PCP. Also HCTZ was stopped, metoprolol changed to Coreg. 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 She's been treated with chemo, radiation and immunotherapy. She notes since discharge she's having trouble managing the perc neph tubes. She's contacted [facility] several times reportedly but no help and so she finally called [facility] and they are helpingarrange the PNT [...] 2/2 central obstruction. I saw her at [facility]. PNTs were inserted 01/07/25 and creatinine downtrended [...] cervical cancer. Since discharge she's talked with [facility] who are now managing these ordersand [...] with chemo, radiation and immunotherapy. Management per dry room operator- onc and oncology. Return if symptoms worsen or fail to improve. 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
--- OUTSIDE RECORDS SUMMARY | 2025-07-06 13:52 | XMS_ITS | Encounter Summary ---
Author Organization [facility] Address [address] [place] [address] Care Team Providers Care Grain Trimmer Name Role Phone Unavailable Primary Care Provider Unavailabl e Reason for Referral * Outpatient (Routine) - Authorized Specialty Diagnoses / Procedures Referred By Contac t Referred To Contact Radiation Oncology Sonya Wade P.A.-C., M.STaylor [address] [place] [address] Phone: tel: fax: Thelma Streeter M.D. [address] [place] [address] Phone: tel: fax: Referral ID Status Reason Start Date Expiration Date V isits Requested Visits Authorized [id number] Authorized 07/06/2025 01/05/2027 1 1 Scheduling Instructions PET-CT prior at [facility]; please get images and report prior to visit * Outpatient (Routine) - Closed Specialty Diagnoses / Procedures Referred By Contac t Referred To Contact Radiation Oncology Thelma Streeter M.D. [address] [place] [address] Phone: tel: fax: [facility] Region Referral ID Status Reason Start Date Expiration Date Visits Re quested Visits Authorized [id number] Closed 04/28/2025 10/28/2026 1 1 Scheduling Instructions After PET/CT. Please write GYNE EXAM ROOM in notes, thanks! Reason for Visit * Outpatient (Routine) - Closed Specialty Diagnoses / Procedures Referred By Pastora t Referred To Contact Radiation Oncology Thelma Streeter M.D. [address] [place] [address] Phone: tel: fax: [facility] Referral ID Status Reason Start Date Expiration Date Visits Re quested Visits Authorized [id number] Closed 04/28/2025 10/28/2026 1 1 Encounter Details Date Type Department Care Team (Latest Contact Info) Description 07/06/2025 1:52 PM CDT - 07/06/2025 9:03 PM CDT Hospital Encounter Department of Radiation Oncology in [place], [place] [address] [place] [phone] Thelma Streeter M.D. [address] [place] [address] Malignant Neoplasm Of Cervix (HCC) (Primary Dx) Social History Tobacco Use Types Packs/Day Years Used Date Smoking Tobacco: Never Smokeless Tobacco: Never Alcohol Use Standard Drinks/Week Comments Not Currently 0 (1 standard drink = 0.6 oz pure alcohol) Quit drinkinking in August after pelvic pain started. [facility] Utilities Answer Date Recorded In the past 12 months has e [employer], [employer], oil, or water [employer] threatened to shut off services in your [...] your living situation today? 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 She was admitted to [facility] and eventually discharged on January 14. While [...] 02/02/[address] Sarah Coto, [facility]. Discussed treatment options including chemoradiotherapy with [...] patient would like the imaging performed at [facility] and orders will be placed. Of note, the patient confirmed that she does not have an allergy to Iohexol and she states that she can receive IV contrast for CT scans. The patient is scheduled for bilateral nephrostomy tube exchange and a follow-up visit with Jessie Borden C.N.P. in Urology in [place] on August 05, 2025. We reviewed Jessie's [...] Wade P.A.-C., M.S. 07/06/2025 3:49 PM CDT [facility] [address] [place] [address] Cosigned by Thelma Streeter M.D. at 07/06/2025 [...] exam was performed with her sister as pawn broker. Normal external genitalia. Her vagina appeared normal,but [...] Team (Late st Contact Info) Description 08/05/2025 11:00 AM FIRE TENDER Appointment Department of Radiology, [facility], in [place], [place] [address] [place] [phone] Jessie Borden APRN, C.N.P., D.N.P. [address] [place] [phone] 08/05/2025 2:30 PM FIRE TENDER Office Visit Department of Urology in [place], [place] [address] [place] [phone] Jessie Borden APRN, C.N.P., D.N.P. [address] [place] [phone] Scheduled Referrals Name Type Priority Associated Diagnoses Order Schedule Radiation Oncology office visit (clinic) Outpatient Referral Routine Once for 1 Occurrences starting 07/06/2025 until 07/06/2025 Radiation Oncology office visit (clinic) Outpatient Referral Routine Expected: 10/06/2025, Expires: 10/06/2026 documented as of this encounter Visit Diagnoses Diagnosis Malignant Neoplasm Of Cervix (HCC)- Primary documented in this encounter
[2025-07-17] VITALS (33 sets, daily range): BP systolic 123–151; BP diastolic 88–101; PULSE 86–109; RESP 10–27; TEMP 36.4; O2SAT 83–100; BMI 24.4
--- OUTSIDE RECORDS SUMMARY | 2025-07-17 12:45 | XMS_ITS | Encounter Summary ---
Author Organization [facility] Address [address] [place] [address] Care Team Providers Care Fats And Oils Loader Name Role Phone Unavailable Primary Care Provider Unavailabl e Encounter Details Date Type Department Care Team (Late st Contact Info) Description 07/15/2025 Clinical Communication Department of Radiation Oncology in [place], [place] [address] [place] [address] Thelma Streeter M.D. [address] [place] [address] Social History Tobacco Use Types Packs/Day Years Used Date Smoking Tobacco: Never Smokeless Tobacco: Never Alcohol Use Standard Drinks/Week Comments Not Currently 0 (1 standard drink = 0.6 oz pure alcohol) Quit drinkinking in August after pelvic pain started. [facility] Utilities Answer Date Recorded In the past 12 months has [facility], gas, oil, or water [employer] threatened to shut off services in your [...] living situation today? I have a [facility] place to live 03/21/2025 Comments No Sex and Gender Information Value Date Recorded Sex Assigned at Female 03/05/2025 6:51 AM CDT Legal Sex Female 6:12 PM MORGUE TECHNICIAN Gender Identity Female 03/05/2025 6:51 AM [...] care. I did recommend reporting to either [facility] or [facility] Emergency room. She was persistent on wanting to attend [facility]. I did inform her that they would [...] 07/15/2025 10:53 AM CDT Gris VELIZ at [facility] called regarding patients CT scan from yesterday. The radiologist contacted herabout the results. 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 Gris would like to discuss with our team here as she is considering sending her to [facility]. She would like a call back to discuss. [phone] ask for Gris. documented in this encounter Plan of Treatment Upcoming Encounters Date Type Department Care Team (Late st Contact Info) Description 08/05/2025 11:00 AM MORGUE TECHNICIAN Appointment Department of Radiology, [facility], in [place], [place] [address] [place] [phone] Jessie Borden APRN, C.N.P., D.N.P. [address] [place] [phone] 08/05/2025 2:30 PM MORGUE TECHNICIAN Office Visit Department of Urology in [place], [place] [address] [place] [phone] Jessie Borden APRN, C.N.P., D.N.P. [address] [place] [phone] documented as of this encounter Visit Diagnoses Not on filedocumented in this encounter
--- OUTSIDE RECORDS SUMMARY | 2025-07-17 12:45 | XMS_ITS | Clinical Summary ---
[facility] Address [address], [place] [address] Care Team Providers Care Consulting Practice Manager Name Role Phone Jorge Luis Cortez DO Primary Care Provider [phone] Source Comments You are receiving this document as you are listed as the primary care provider,follow-up provider, or the patient has been referred to you for consultation.This is in compliance with the Medicare and[facility] Hospital[facility] EHR Incentive Program,which states Providers who transition their patient to another setting of careor provider of care or refers their patient to another provider of care shouldprovide summary care record for each transition of care or referral. [facility] Allergies No known active allergies Medications hydroCHLOROthia [...] topic Insurance MEDICARE MANAGED CARE BCBS [place] Care Teams Consulting Practice Manager Relationship Specialty Start Date End Date Jorge Luis Cortez DO [address] [place] [address] PCP - General Family Practice 12/22/19
--- OUTSIDE RECORDS SUMMARY | 2025-07-17 12:45 | XMS_ITS | Encounter Summary ---
Author Organization [facility] Address [address] [place] [address] Care Team Providers Care Lead Technologist In Cytogenetics Name Role Phone Unavailable Primary Care Provider Unavailabl e Encounter Details Date Type Department Care Team (Late st Contact Info) Description 07/07/2025 Orders Only Department of Radiation Oncology in [place], [place] [address] [place] [address] Thelma Streeter M.D. [address] [place] [phone] Malignant Neoplasm Of Cervix (HCC) (Primary Dx) Social History Tobacco Use Types Packs/Day Years Used Date Smoking Tobacco: Never Smokeless Tobacco: Never Alcohol Use Standard Drinks/Week Comments Not Currently 0 (1 standard drink = 0.6 oz pure alcohol) Quit drinkinking in August after pelvic pain started. [facility] Utilities Answer Date Recorded In the past 12 months has [facility] [employer], gas, oil, or water [employer] threatened to shut off services in your [...] AM CDT Legal Sex Female 6:12 PM PASSENGER RELATIONS REPRESENTATIVE Gender Identity Female 03/05/2025 6:51 AM CDT Sexual Orientation Straight 03/05/2025 6: 51 AM CDT documented as of this encounter Plan of Treatment Upcoming Encounters Date Type Department Care Team (Late st Contact Info) Description 08/05/2025 11:00 AM PASSENGER RELATIONS REPRESENTATIVE Appointment Department of Radiology, [facility], in [place], [place] [address] [place] [phone] Jessie Borden APRN, C.N.P., D.N.P. [address] [place] [phone] 08/05/2025 2:30 PM PASSENGER RELATIONS REPRESENTATIVE Office Visit Department of Urology in [place], [place] [address] [place] [phone] Jessie Borden APRN, C.N.P., D.N.P. [address] [place] [phone] documented as of this encounter Visit Diagnoses Diagnosis Malignant Neoplasm Of Cervix (HCC)- Primary documented in this encounter
--- OUTSIDE RECORDS SUMMARY | 2025-07-17 12:45 | XMS_ITS ---
Author Name Interface, [id number] lity Address [address] [address] [address] [facility] Address [address] [address] Support Name Relationship Address Phone Jesse Wei [...] style=text-align:center>

<span class=clinicalNoteMacroWysiwyg id=[id number]" macroname=PracticeLetterhead spantype=macro title=#PracticeLetterhead><img src=data:image/png;base64,jFDXWt4DBpyJQGSNFQjDKlAIPFLJQPJbXCWQZOV8Z2pHO XMZWRVCC2IMkc5m9LOLGVUdNF6KWLAyopt8UESFSEWSxNdSjnDTBkEBPG4SVUMeWgnTRZhLNJFISQrq8 K8HuSQ3NmmZKzxkatG9G yYoKoBJUJgkCmrOWsfJBPGITZQmDmVIKGmkUfaBgLDdYURP3MxwNg9URqaeL+u8/Dap4fqw3t87X75Ey tkjbfhycLnNNqGX0ubGx JVQPZvYVhrIytTuO7DjBLF3vV/aPdlDZRyImTRgKPOujYXMVGLtRLPHXRRBagMGr5MHszUDe/gECxCGY SlNW1qIv7AebHs7Mv0js IuEaFpmqzPMfOYip43WLisrBIWAt7mdJVCVuXeapMClWa7wO5lTcJqtHH9nhBHAxwm90cpsfiOA1yqJD Pr9f3PUw1swaYw29fFRK nIcVgXb1Y6iLnguBvNFJAn9DVlL1fohaCe8mGnwb9xDUnLWZYpWqGzGzzjNVVxBbyA1oU6ols34eJStQ /IfGKlmr3MVz6nxv7Xk7 6oQw1x/sABhrlu+/itjxv8483F/eESZdEkkEuuSs9rXDbJzzkgnKFBFXKLT+AdQYHAQBQQQrV7+EU0e+ rGxSEkE34LAhgbfUq7Md 26UYeT8Dsxvk1+nCSOP5k+xRx8a//1lNvuVEzJRLhXJa6+l5M6BXdnJh92e+9MzFTmZfxGUiT71eXcro Tx++/btVL9+felnmOsJF iDMdUdGRgYFBQVJ/dSYnDpLginGRqsZDhFQLAtMG8Y4Gx4ec2/LQ3PEoe0pXf+GvwgrxCBV6vnLMHemN OSjU8n0njyyvbPrSE1i1 Egnw37iV3KYcn0L904bVdMK3ENEYVspNXAjkaAsHc7laRu3dH42RYLoTcyLSQ+5oq14zYeCpZmgsF5tf IEw/wpWrFhB8+fPp/Xr1 6DbAmWIaRzPJw31wYBbzbhtkMXL07DhROjY53A/frmWtpu7EhOTFPXShRUVdF5jKwUeSOHWqSBwYx8sm 39ziUcsBeWla7TdUPY47 WRfpNHRV1flpx7WZqAJgbKdscBLxtCOJbVz1Vp51mi9RBjQXrxMyZszaPaSH0y4/RIvRNrd8sGyXt+6s 85kyaonXyJuiKRvSjB7J qAiOlVeKuLw24xDzSYGBtKZd7pjgR8BxoU1Gh6dv6c+kln7IFOZEAWKlJSLFXglAhZm37//vhQmDFNQ4 S2hbuMUmOGvYYJQB6KbE 8dBgU283mmbbfCcUPv83osqTqS2B18lKf1s6n0rzf+ruHhTB8pgahaEx865Qg/TumpiVh9beSPWqYfZ0 yXVYE6KDKO2GAp5Xmn8W pIioqLpu4+V3W70QbF3MR+gD2e+JeQHn5wZAZ6QSq7X64J1wE2gV2E7m++W1+aCAGxPHp44SH3ymFHix pqVoVCWEBXUqjPwydg8i EfTIzp8vyN3jYaWCHCX4p2+s8Bb26gTJ4MhAemKw5493o/IMNadTzO+SJRZrdIf761FJsKYb80DRtOTR tnSt2/g7ncjWn5CsASJr 8JolVglUAtutdOgce15yb/XXJmUvNRGnvPRcvCqhN4sQoC7COx20TUy5zXcM0TVHwrINrFSPfoek28/M NAY/jL0M9bJOQjTVtwDR +cafn7+sd1JTtVQxnDDSAD8PmIctQU2j28pt3JsSvWFU600H5ZscKGGBZImuJE3qPQTBOqf5JsWizOCt 1YgBT5GDx57UnmPavAEO 6W/wq38wVfaOlp66KelmZOH1zhIu2j/pXfe3LCTNsjEy6KF4tnFU8uUfc2zlWyrRTPOi8POIkGugYpb4 rhoqngQ9Yf0wcWenu03J p0aFANGVAm7X/k0gC84bUEOOPqKiGwbKlnDO5r++quq3kbjgjFfI0OneLzUNXdTXDDwIYWfyTHJztWFx QLWTZgIiMUPf//9dxXrG gy2//olc9G1I3NVtipsNWh7xqpY7bMTmI0uhjjUB3t6kaMNNNj+/07XeHlJVa5ejDaYOExArfR83EUSA bW9zTagr50+vF7SK0MLu oHlBJbDFw2LYQ7wwoliqse5wJmVxnFKkEjbpcehrq6CXL+Ex+QXiX7/g+wH8LIuHFuFfCgA7PADX6dgF oyqOouKydeaIk5h7sixc Zg80HHPx3/Q8RYfU0mGJLwBdyWuh+gK7FAS5UiHugML1AzSjOSf19cIeIczQ535yYt1k15lNlSmMPUsj D1jTvENq4XOtOJX4YehO eUqVdQexwwdOlRuddeZO/DTptVnzj2VaiU6KaAbTXKLu4+sLJJXsfyTdSiA5DdmcfCPeumdMpTGnCI3/ PhxGd+nTeLik7uiPcRx7 lcbas3RhBvRdQREIknnsa+TF67dQ7VIIGGoVxkmeNyekqpYoK8LNPvzLoODfvjgRFTwWAQjENirnug3k NG/j44HwhjMHk4faWg+c wZ8lYmCSqLzNSL569oVDpTSPCn6KXpPqvJAs+7xiksEciUGge6DpBmmqM/823IB1mx7qRnOCUxkItAKM MV3LTyLBA5IBYoXPs5NT sDWXod2t+wjG0Am972cO9095ffDX6W9x+6g2w0Gv3ugAkib/kaTuFpYRLjO6Se+5VoVKi44wkJGRrgD2 wERGTpyqWkZlJCYRCdPn cf2Luyrz3cCSDAc4xNb1fKwnNE35vcbH4l4urdRVAHvbBJB1v6NCsy2r80ZKTtyQJ5DMgJDgdi938kGd mQDI9NrM4pG8GKvmgJmQ WriwAA/ChCl+MDhwzTsiScoICCAbqhRnSa8+TLk86vJybqio4/PtAVHTAPgrR5uaJmn4VeJWeU5qRtcL 2DpWCmMz2YPMbwUVlZxn OGwtTr/oAAKDQ+p1fYVJMzIyWt7M4CxCsaPjWOKM9hzrUxg/kUgeQoU6d4+sOSdYtu20qrp86p1aNfys LGvN94eo0wYoEwRcAdVG Dj+rworScArPhhVThMHEOcNMDJsZPSDKMLl2Qi3n3dcwLcd9mhk1hOm7s2CTJeDwDvD1xf5H6PREXY3U ze9v9T5jCwstje42tAEb sJONoJzU4gOlppSKxTdzfc3zcT4RVdo4ZyD64jmRE0/c5fRf+WWYotgNBwkmuwzU2idDwdTPAU5uFu2c mGY/C8UWTNPtIv4OWait qJlH+eokDvffoex/bogSNpQvTSeB5PilaNtqUdEetEks7y9U0WCXLmUMN6JkqiRGQtoHtPnB5+BzLtpo +diAXPKwErcJlwn2s62j fz35726er9coy+MkqVKSz/JVXY5ZqFXrYNp8FYRcyoZ4hriGvGKLI1F4YU/pxbvRfCrXXFys1NSy8kHH GD7lPRF20sNO3ipidA0p nMLbVy/gZIyDWm+jhwUKIIGlFRT38GgaQQ9nhYzUdMahKIamrH6+BKRQbONp6RhmHTDp/wpUByTkJZJE 0yDkmsYV4wNTXrWaYo82 +9XIYbJ//ZNUTIzaMbJbLWHcbE4gKjTXpdAWZu6skInrU/McWDbtYtTs7aCRyt8PVX5mO6yU2hAyEDs5 LHJu8ITS+RQREu9gXUk1 kNmA1YAo/4657j1d8y7jtNNhM0XAJdZV2GC+w+Wr1J0PLKI9BVlt61CK65lRIPdVEK9+w+P8ZHKUMnjR LgSBEFUaCrUzzbc2zbIM BLjPnoEwtNnOKRimYn1v47tRQm4TYzvyXJAkzCYIIpizwfRvE3nSgReNQBsh8b5EG9K1FjZ4yJ5bMr3x KOm5ZbrxZj+nurUrUcLl iBZEsnt0T/dwvD0Gl2P5kstmkq6QAnEObSnOHDr0NFGW7oTtS/ULChjQqQKrnRH0Hd8p0bxo5Hd2F0zj tNBIgCUP7pR1+QWVkxYX 8j6CElIzhm/OvMK91ktcegMk5aV+EhBC9WhXHNAAjO/UTw54ZTxhGEGnaX4Po60LQ1YYN001xuWY6jW9 VLhWV1huFdyl65HnpBe+ dKJ8RYMFOpU2iJIE2yw/KbNM6KTcxWwWd+eTQ89+HT2J30pDDlggQy57Wvlrg74PKBSHhNAej8AJGgUc tZASlkMpLScEfmJZs2Xj 4WGhdGvew/Cxy9oXH910UTjUUvbPDblqhAQqUqaPEu6EHXbCb1Rf9uCYnrm+3zg1yxD7L07Q4CnJoZoY 8NbyBbmeqLF9QeV9+bNk 36GyY/iGGnWL4ZSgkxyzKF51i/6ZbrvqdEUd+1oAMqEpFrzSUbZjyJk5OGoyZh/lk4nZX/vQUW3oR8qS 3r6DpSW4h5dx4GZYzRbJ XesM1GqDFOjWTXyyGumHv4kYZvb9ReiOvFTMTjG52AMyfSghb73m796h3f/siqE7YFKObL2KvQQL4mcF euBz4wHdGqJbkB9eZWaI 9w6GJcTLc+iv7VRs/FNNHXtFrp0+hz6fGT/OSVqVYjpcZSeN02XBil0SZXPIBNYbf3+gQEUEhIgKuYwU MKuZEivWV5JCaQfPyaAZ v43lnR/cf6g3RIQPUmJlg0Y8WC0/VYJDy3EkCgFZNN7LSXwO64Z8GowmNxSAaDv+z8p/yGMucH5BX1/K dTsNU9k47hS/r2TycPfq uRHuAuLyXcMHDhQ+QiFr3kPAv40SAePYPUxZWweenzqm0Vdb+X+myTyasyCbSYDOXE6wYm06pjDSmqAC 5us66UbRdCp6/kPg+U4d 4H2qEhR+LhLdM/nk0ByfGpIi8VHGf1/1DC5r+5PqewkJSKHS4hqev5meLZP6hrZ7C+nulU56DQRchCQK JOvgEns/Ettnh2Sh1jbl zzUFxDguH6GOpvsQYgLbFbDZq5pSub/XEJHzsRRTOFgeuPtObR+qBl2Q7ehnZlcxMFbTmwRKbpamvST8 YBCqaDwZyHkxgTR2375W j6FwZqnBdZo7D4N1AAUoyotOEmbvLplfEu6IDmkK0kcqHZj4StEnyLRamnXBMRLO6rt9WTXpsCHVYDfK BYaqzYUqji3XIKjMVUdJ LhvVSTx2eIkADrAiGmGUeFAmmxLIhbhqyhtJnY2Ze1tPMzlIo0KFb+U6pKsTZO7O233W3UX3psdma2Hr IB3gSf3GB/uyTa5AICjJ BmzNDsUrTOafWZ3qPfYidmNB6opOfVPbYO/75Yz6ybcUAp7fqoWd8TTmIXgouKpnxlQlbTgbbAveRN8h Gne8t4+UDJ8ZW03bGW1g 6FqQcGRVrIlXdahIyYlGot7Orw2/m2R1r5RUW7hSQeHLbeY3FinFKQ+CbJQcedqAV6g1gk/C1sUrvkUH GmqwqCFUjpYklk23dyuO x/Y3M0OqGI6BivhRISAcEiqFFW9VNkFxMgRfohhbW1SFvQGTviviAw13WJ+jduglAzVYUOIU4GQKb0TV Rj/dFIFbDiLXSAVwPb80 usrX7nBvdsBIx9exMkH7USeGECxlniqJOOPBSaTk8LFX9v3pQv6JtMzHWWLfAR7c+D+wbBsWdXZ0CpXl MqRxC2uLPlXByYN6tFAs lS/xVbF7H5+rxuUDl2qsDJe4P49AKTdF7QLyHw7j+vn70/o3o8PtVfvaURCzniRtuH7pNiRGRxU97JYy v4wiJiKImQjZ0U/rATi4 r8VVeUjA88Hy3Ea48pQotxjjmwU/Y930Pip/ZkbN99e62JizIeY7S4LTahfWgNDPgAFSaAMZUlJJ5t4k yPGIKhAcbVUtVNxOQ8On zZdpp8/GAZhYi1LYNSLKm/F2C1AcUY2nzZx2SNy9ieFjcLCOVYqp0cur6K3RefpO6M/5g/gC6Bc4Mfcg 8le8u1yDR3xVvGq4SCul Mm9ALHJf06Dzgt3CC/MNdkunrkHQdjFPW7p8A2pRIHEzC80qAVoYZ8jbg3VgHmC4fKTvhHg9MDE/AELE CZfMWjQIOUj+t2AHdIPV vZdTSxy5PE4Wcgxbsh4BT1o5UURTZgOho7HvzEtHx7bDwjaJLueIBas0mz5bP4f+Dc6/BIwhhd9gWoJP 703k+ymL3ci7HFVPw2bm +014OciLYwH5ZYbKcmVyOPRARnetqqwYQY6vlGF4PW+yezbU1EnK4buZwEaIU++PB0/pdtFpNnU61xQJ +AFI0STsOj1DZMmcONHR zN9mowVHSjQ2OBAI4JNOgg5PLQssdqRgkDoB8RhIY8fAXpzl8TolwF+BjPGCkRXAFBlGV9ClqzqztzRF tKOv+EF9XMpLMeJfJXaX dkBIhgif7ERvNiwFoNDCjGgNKATJBAi6WqKYAO8TvPdXZgKta/ISNwS4nTWyUpoQJquNbMwbvuRfxBNH rSi72ORSgIZ4QC8vjHZY Jp7xk+z5LERPb6LCiO4jHXk/krGoxWfEH+JUCWjWwjjJ3+vgwYkrkEKNpMhi7+kLCFEUoVASElOobtGm 8Ipy41lbuuTmnZMpGYX/ uhFxQN1p0+UmhMlS97muiwmR9EJxCb5nTsYndIr9+Esdras+qaffWkBjyCIiIOrdE9V2FzYya+xQoqJARJ7 ja2NpbCbsWjerJbAJ+6h do/AuTavuxpizl7SCzLdeCtbu87ES9vTvL9z5VRHmb1HabNqCTDLhQudIUOkI7Q+8g/HIz2aslEhsFlL vdSnwf6NG7Yme/tp29eG y+MUIx0VQWq7YN1PDH/pDEKfOyj5wUXEtFi/8BYEPa1O+sGwNOOFUbhaNlHUmzuRrqzhIGC2Uu+MrJQ+ RhfkqC05cl5l3Stimbpz tlKC9TgfuPiIJ+l4KzFDmnsmtM96OQZ7pt+/rF2nG5yeU54zUEFj9pZR4rN0tdDZLFiLCUqTC3y21oyk jLW4o1ZNDGl6YcxYgZvV jPt80z2v1IvPuQlLDXAxOm+0Pu2hTtGBFflsq2mKaZwSKUSMUX/zHtL7r+edcYNfbpgz0yZKzAfg02ur 2qqvCR4Cc8lRZgJRZ5C4 S7+XbAD2um5g89vkYU3qukb2TnlLGDOghp3ogKlgZI51NcGkMTAMse8tqnS+CnUIdSmwUdiPKrMC5iOJ GPZnQk4o1HGK/+U+xkmP 0LBbCeOUU0+LTu9lqWz5xXHBBsCdwf73cxiQRzOc7JTxdiAwMkcpYWxjkC4UODLHlpJikvLVM8hlf+IRISH iDnzPRIZjdod1tjOzKK8 8B903iXS4tmZyQKdtFcvjHK4ZwrYPHRiBLKJN0DjInDzZjC91LL267OB6eQnmOzX5dEvYr6mwZWm+RPW IAw+RMmRQq531/T5Mnmg GGer0jWOhj/bxBlBgVRpn+UdRoNPyNYbCMVUra5kko25rkgBBpj5jl4ocGmfaLDgPIGZUpwlKluhysIY ArocrC80PEROUDtSQueA yADmHiEByQL3HMcy0MEyKIJsMeRW4IFPUWI5ZmdI8WrmfMi0Yy6d6YvXhIwAXYDeLo+yFGSTBuTvX36x oAfYzT790FF9giCU4Hnd MuLLSFDeIMBhQlcYmeK3xHAwRRBlxekBnrm3seN64eHOZGyF0Pa3LW1i4C7rmXsO2xnJzqgZ/mMholzg UWCMlx8Ox6JSHLKQyYct wNZUUr4kDWv7d1tLvxxBeD4rFyc93MhCKl7mws9XLb+NFltjxmg1JnEYs+DIqqFSXhYGCWnpVOoqIBT5 Hi8oEc67BuY/zOCStZrQ brexXXZohBOdonF7VTyeCrxnr4DeV8+7LtL46xCtyJAy3NyHnlO9Nt8Wc1lFFPyaQ0rM9HKSynn0DRLs aoMzQ5q9SmRcoDByrSBd CkMULNOiD4ayH5+vvW5ysoEcs62ZzSTV57wub3hspeAWBiwPhxrsPyEwxYCwtwMO6xhznPtbJS7ueU7G 4T3nndMP7pxYl//mlb07 yioUmBocR9UxLmri0MP1oDXEg4j7V2iRuagmdHHbM4/dVuyzL4gtWD1LDSuXEM7O9NH/p4WR554jYHDE sUm4FI6n4qW70HuZEGW8 QzUGowUajLlSRGyU4RUE3wu7xvHeD3SJecnhf3v1ZxnAmCsDQgdtm43QHHKc6FfwP7HWLi5k3MSbMur8 Ny5k+rUqUMVb+tGN09+T 9jtRCRK5k+kk5vmvZ/AiD4xxb8NmacBGBOwCWHfYmwshj/OnKpg5khzFd6BXdzwtsoAHdBb5HMg/OnLZ RZTJsQ3ln/Vs1bWPkGu1 Sqy2CawpD0pL31NUoa3mU0/4H0hkKSCjDzNoJRoH+rK6vOm4F8oonvOI3yhijvXcXwY/nKR5lrJY+jkh j7c3542TQ72YW1NOTvxL iBMgeHTTz+dianne+++icpe7YfhweD8DKyZ4enjWQfMe9FcYZ6JEk1nsi18vnHDz51XcYJpvg1ADgPtrsfVB E7DOzffauhR43yiZ8fsY qSLrwIcFZ3EaOMX7F4mY+K1w+LClKAhZj567+hC8fr2xNmadX7tk1lMas5wHqH6ALDgzJb9csNfofORB p4LYtSWWW2znmnFByBJZ VWkOP61eUVgZ6WQUt7gNZ67npquhREDRyOogERbEth42s1llfeG3K+YbhMgqIVRjA1/fyFMgikwJFzW9 FB5n8Hq/mcZZl3Dc9tpi afcEwpGOtUeNhEu7NalBLNBL6BYQRISIP6BWn+RggXnm7TRy1WQWDmb7GC421N39BPE28t0ys+8CBnpy WQIDanZ/R7ydhkOVwRCx JwvJMaVfZQlmzqCz0Syb3ufuRjcdPwsnTELwoOg/u3gQ4Xie4pFBSSCkWuNPm8+bLf7gKij5ISsTe+7Y T2QMngNJ02VewthVfZpt TL8pSPjQv6/st6bi7yRFe9D7rO0pJU9i2c3mZ+bwInUXHvZOmlGqhFtU8VCqpULluEYv5zxlKiVJXCfK ugIi8FZRKdK6NIQQtPHK n+5XeR/TikzmA+Fn06oEdVPgAW78e/gCVE4I9LiiKOk/HiERIDLEzEsOsbfgBdb901U3aKgOFZeZ1HrZ HHFCVtEK1ACzbeDISeFu YDD8AMRxmKsNGztu00YWaNk2t5Cy0IrCSwzyb2NJFBOwoC7X6E0SAivqsnqXxVABoZiGyJlv4Vluk2+J eJS/GjqRJVIUPI/I6nu6 r7B9c5OUBonKLj8326yzLdCLfFyNiyTAPXrg1DLDadvEmJFjzhEUDH2pyA0p0fkdfa+gZQgtCVQsmRJu WWYggBrIEyBAUubVKtWT sftuivUucRCWyd0nrnOyR9FKJ20bGmRHKgUND9rzQUfj3tG+XzZoy3yMMJSBXHtGdYFDQJ6gEcO0Dean dZ+K/sIyHcXhXb4Ckw+R wT8qOx/J9EKm4uMJyTU1rCuEb+xxRcQ/pDp2NIvSsm7i3dLjk61LNT9WnXkLAncRsyltTnacsgd9ZJo8 K/29cOXSV40YO6wdtBOQ RYgTIFCm/RGdBtAsU+/YDtjWtZsBzG0e9Dud/gwhdn2nc83xWpUelyUic9boeYxwMRn2i+JWaWL/0PCK Csjjc4/NYDS//jb4Axjj Dk26dfoazVfrGJRlsW+kDj+Mh8cZ+F2iHZYw+/2O8fAdI3AiU50qhOZ4lYYTg/9gJwb7n8c/6gYSnzpC UpbvVLG8+zPLAA4B7ktY BHusV8LuNFsLtTcY2aD7V1GzYNQmOnSyXTSk7Y+msGqGueJz6HW7S098UORxf2RzJXMCn5eAIKxGJj4A mqszMLFFQeKMcdAOq12S 6M3v9w9tlWpX8JC6uKuXEpdUp5V9kJR7BZZO2U6oUDVhqBAErvRvitk6zKd17lSDvMEzC5hm5HmwUCcw X4Rn+gfQPGnjtuER/Pmz wWLYVsXULUZJdI8eaRCoseqvS04DYUKTwGdvdji3zNde6GPiEYyJctKoZfyQasRlRbtRZQARHHKPc0F1 FaZ5dFGXmB7ZktQBJg/S unSBNiqCWRR+amyPCaQ4svrcNF/OTpvBHnPjW5DFQKAiMv3JUvlkJ3viLpJao3hTLaFZoCZHUra3QbDs AABfKnJEQbLA5VWeF+aN Lm3XUSlsXEJIQB70dNMTrEtMS5XUkJ9OXUydJaCOWVF1KrzjL2onMiqfjxvlE6phDHiPyTNr6sPQOo2Y msWhVA125nlHbO71rTyv 1ExZMRfIOOVYUTdmxKt/ZSoRBmimUIzmLmCqFgpom+VL55kmWwkqQBdWe+qBTiIa5rT+d44pCj2zhMJN q3V8GDQ9dQF2TLNh93My MKzOpznJshSpKEd9JeNP5GhXz6bl3NNZjeHufR6Ar53JGSRubalbHembkaOWDUuKhNQMRLYC+qFHJswi 6CyjTMhan1wHsQmeL6YU G+uIL/XWAFoeYmE4t4NU61s+c1nBBuB1MRoBsU/W+MYgW405YaOw06qITe6t6DTw0GjmaQSL5SJ6mfFF 3w2FzGgPv/Ra1KRr8mQW dlTOXH4WIYnqjZGTBSBlE5OsaZGCdAeHXhEWFsxkYbcNUVTLDdOTSp9wrRDTlmrHjuuPUCDjoP3ZSIx5 EWAuYDQvxjRkfWUbO4aP /YtMrb/EFSXl2A4HeNXNQ7HSb6Ylf8nTkT3wkwZlmvO3XomZ8hGRBnC01EosDlmCkVFn+a+kDCiO/qQX +3QGWg5dDiSfSFuNuLlV DZ87pMB5VuwKtQV3+wpMj5+f2j2ILohClz32JQ/bv7AOzvBBjmHhnMNn2aJvr+0GXc7FkuULKC2E0IJH ksJKiSEQTLReVGh/y6Ex ub9obmc7T6L8Q8ouhJo7FAstcFpxPvaV1rLBYV9du9EfQpcVPz9maoSV3ORRMVAe1TewG5QBn7ksSJ2g z4tyBBKbI/nL0R/HbflD HlUX40mye6Chgh5VFXxHTHPBGe0ermgxbBbhxRro5pTiVQXYiEwWwIUg7RBOCck1KmG2EnSGJ0lYFwsW Dpg/4qI+MAgolChfYRFE z10LOJeIACCqAWMo4YvWMo+EKupv44vjwFVDwrMyT4JaUC8+Omnn+jPP/+WNnktqEWUiMH8kgRhxp15X TxEEFjRhwXboxdEk2ESO lHQQM590qM1UuKuA+lHVWsVsglR1meZJNHawtq2LfewgUE+VfbTpkxxULueuXISLYg6badrfHOMmPghS Bh4ZfAm01jTsNsLfKawS lbJEvTZsA8i3mcIcuScItG+N7hOCyiJjCBYRjH3fk57ovbS5w132J176IFNXTzxB+KRMVBNTEVEtqmsT kM6ppQLpSvcV0evSqFed ABTDEaE3uHKIGsspas892TBWM+BeqYSYVrg4VvXRGwTFOCi1QOYAowFegSRI59/1br9y8g137POxW5+4 17isTxNvx8cJkCv5nLk7 Yx5nJQAogXKSl4XTUQ6v9xqNVFPL8AzR9cGxFKaBnIRFTPp0ttawy/2A6EECIqlUQMW940zF0uB62+/r UIWIqNN+DKw5Pmwcg3dR tOmTZN+oYT5yFzFaE4cLoMhEnjvh+uuu+hYJrn0YdHCfCPBIpbwZ6kJP1Fhd4ZUGOqOMJPodYFOmDy6a javpGrVqtS+fXsaPHgwC r9GosMPdKMOulIBOwYfMDPysYGAEBYlMOSAFIOErvYOo4VJnbDNk/rHJhUBZSvGN7pRUZwULN7LSjQgO IbxCRYgDMMwjE+wAGEYh nH1yuDCboMT2pIwXYqNUYcpGFVQJTzZ+EUFDPOyPMOwWHmQf7RJSCY+/QupZpXzCOyJh6dtmRU3oLWw/ A5Z1nlTQDwacOCDArHST UXFixenrKws+PTbe6cP5gGXo8mee11n342hajc85bvsb6NII53PDyqdrVBHwvBlPiGLjVHHxZs2yJLJz tSzZ0+tLWQHRg7s+ROPB Qfyi54R32qkVg6zf8sT3hWNlEyvMdWz0IDMVgPcn7aydhndjQaBlygMhc5SS4+evvjiC/7SG/Ot9fTAF 4KaI3FXJfzvVz24aRpld cpGLF03sQo+/dmuemiacyigBeqE90zNi/vvv1+GGSa/7aF0QYz7a2vs838BFZWTAWcDx1vGuOtnLGZUy Hxp3dIOXHc/EytWrKDu3 oeBM9Kcq3/+mSpWrCjDjvjvf/5Ede65sGQLRXuNTp/evPqFr7VrRE98Do9yiDGWm06CuNERu7GfZJiUM 2NrwDn7BG49mLJw9YQp+ gdBYh4RD4z07Giluc/+eA04ldQ9kPCbJcfefEbC9hOUc6EWbJhuh8U34gBN5ubELlWCYRBwY8a4ZJEak pxAtgJnwkiro1kaYqbeN TSRhTNDuv04bGVjYTpAUW70LstWWLSoekOxtsGFGy8l+QgF2t3C058Pa7nyM3UYfQMOeMJehmvCNwqK1 OrRowfVrVtXhUiOh/g65 yxowU7DUcWFgHcrNMspID+++KLyuQcvFrSPm2++QlKTvWao26/jev/9/bQTtMeS22eXKfByKkEPZYqg0 VTIO95++14jM4zIyjOdI cw/x0hC8Qa284LqhXtFya9sXhiMLXMwlNnaqVmE61l8hSYWK3yQhKLNEwwnrnqbbeeweK7wf3KhXuNDI ETYzH/JN7cLkHPWaPSBb 644rwYth8MwJEiWYAZJfuUv820T09OS3XxIG+/bt0+OxyAd+wgtRJkSuSlQ9GVkBtV8Xinm06UFaUIKF 5AXiu4vNqZqNWiEgbPIy TJlpMN+3Buc63//+618b3ikYxr3PF+IWd5pIBISIVoCGrzMrEGNXGr8sMFAvk6jby+BRkFs7P677RKHi PQt1snbRolZtLm16SJ32 eocTT1pnmGEgcwtb3+tUrgHx+Ie4jfg/otEQss9kHIZVuONwx39AlC6h0KMwG/7z0zl4eL7F/7880+aM eZCLAh4SJJaw1787Tz48 witIBxxvYshcrjzmCCMeGuoR97DuJfkQgDqI9ojnMG0U6bXb5zcaVBegqlC8IDc/fXXX/XDpBuWL20CL TciXGxNBWAkG2FM2dAWC 1v8LScoazUZS95tlmphu8/EsUNGPTq3oXtijhfm7yIexs64ypUs1rFxl7bibiOnKU00IIK9t0do3RKTd 8fMeTybQj34Okk5zuB7K em5uUZDOVL6fM/el34yZXeuvYnAGi1TU+E9wfuN+29w8lZpzpyPK1mj9jWfYUiCjsOd+nbq5RYEPW7zH aVwgXgpvUKcDAJH+sWJp F+4QsTerJsNrX947lc2qORsOA7SxLz1a2aVM38cvJdvGRifS38oykeLn3LddNvFFtOisUGTIeUuW49s2 s6fgfoQTt459diJzyTVk Kfe9LESw3hyjbv76gsrupZaD9++3giPQEGLFWN6eyptGdRz+++/U4fBIULn3GwbsRuwctO9XC+kdLg+I axs+9BbWIl6KjLmzX3PV WOBvmVeaZOpwUOrUFHZoRgHEXUBsKyCUMIXITrw1TRIlucUPQoaPe0r5q//fePGG2+X5drwt98h7ikIe VIrHQGP6FPQIzbFCKkZ4 fo2tidjxZ8p7S4pW0K7KpHUNj0Y1gQg7i4SRVPs55oerBTpaf0RlzILO/hCWMJZR0PlILuNhCYaBRF59 eSiH8qyusglZO4BY1989 qIWPaOpz0gCh3TCnTTKMCQg14202e4IWKOMRBvFv6/3Dtn3284nQMjbSzXzE/IsVVITsLy4kvn+33nnH Vu5e+JTB3Iq05iaKgUf9 u171IivkdJ/e/Tncut2XishXJwtmCNBolFl59Hkt/gNEHv6jAtXRao89KocEFpqUTUrpewTAPeXV619i cOZFqDl5zGHdxJhtBYn1 A1urSm39+7WU3h585kidh/ViYa/8fjjj1/7mgCZvpTZ0SGMGIVlLyo5smHOLeIeZAyNh3i/XXmJi4PFP GCA9P/+++85jvVUgGiee +6752T1Jj6XMjG28eKXDyrkrvoKyZvQFcPh170hB8Sd9dLhb12ePin7YSKVXeGHX/aLlp+KuRrRwpdpR PhMvpBYt7ISXKeBumuWc krmjoqWkpXeFIzCPgdp3vhbGVRFPcINxzVn4q8iUiwie5pAjjQDEt5Gbz1K4dGSFghbtfXxW0vVLIGvR v483BQHRsMXPDvvWn9Kq m4Sita2184aNubwwd83yKLq44ZZTLzoHVapqRKQFasbAxUXEb/m8xnuqfej0wVdbs8/TGa5dPlrkG98f idEnQqGBbQUrVt4ftl19 yEXkRbYpNBzPA0v9laLlonCKQAcJ5d8uyJDolX1avVVXSsCm01pyUgdsYvdimA8HuMjosnXjWPXSsgEf Znkmba4jc5JWL/XHUgnV EhOoq1LRNtVtKXagsFegqmvbmpAsWXtP5bhBL/g5Ue4816D2Br8y3ZIjPS5t7A2Tjhf7Iicz30NJTQVr QrVZcuWqdirQQvNERA8+ arTAGfdsmqbW13gf5yD2YhEnHsqbBJa3F4mB1dt7wbrjdasL7TKEnqGOu6ycaaBjc6m39bWHlxI70FBE kCutCaANMjPk/fy448/t m1afnp65Alp11/fmDlm6sz0wTFdqSTFtmMYLauyqKspFInkYB5WFnYHeOPT+EJae/W2bM7pq/ToIeMcg R4ZR/m4w+gv5DLRGB8Tl J2aWSMuQnenBRzdC99lXhPvwLa17Lg6X6vbYtSdqJP9ffILyiRJDmiwqfyDRhX3mk6m+d8tG10fjGZq3 Z1DuNQVepI76P8kokQpt +viArxswy2RsxiEIc+nePz9CGDXV4y2iCNQJwCL/sMA2b1Pw6lDxzAlkINbQs2yhSuFGcgR9NcdRRm7n Oif4vfRO50d7do67Od1+ mSiVv4e8zsG1z27g+JN3885X9ziszjVwfXyI+euwkcad+x3wjAIRQxh5M7biuofSd1z77CYouvWh1Dlq b++3324qvQTrd5g6uaPR t0ui3DGxg4V272oG7d8zFDjvSPfj8iVgl39KWF8QjfYcNs8WdvL2upZTOAfjEki1Ll2KbSka/112wXCO nwRck43OAG6NQNS4poLd sLARExnBYUR6n8U/4Ki0CwzwYbiHh7BtqRj6dKaqo3J7JlqmwXWACOPbDxxN3SW6uvIGdB7o3mROLA6i 5cQ/eD6N+G+jTp78gxwL ZYU7epkENK5VPcfmoc93y+9vVUCN3IiWLO0HjUpWn4drRXpeZVWkdXDFWXh3GXwKzlJQQvzist59h4p4 gYTCLenp55+KtA5Q225P +rXA7tb1HosxYmb68u2d3VVtaO31lntgVXc6/L2jjd1EXuS5TYMzwU1JcnXAPYRvdFlBil7VWAKfVxgx ewLXpvxOmLEiBHKZ/Yesenia 25dNynu08+RGy3dRa4V7650tpMPRJOBZ31XZr9Qq3PRXfgSWYBeRy3sB665gyObXLCqOm2nq+uAVYivf VvyahCTzlq7whiO51FjR IUMku0o1TLOrbSI01yomQjTb7jj79q2h+TqoYQHAC6qYcc/F2ZPzG8AosQHM4MXF5r9a5yVKt/YW1D5g wekFg08hcoQxXrMgGi6t JRMWC4cQMOZTaMgccVXpXpp+/RX0PsPPYDUjzJzv6CHkrTxDqHZCkwHuya6854hvPnB3ju6y9p MAMD6h3aQ877Qazn5+z+ 4vRKafvPiIPPxeKRJSmUXPVPrmQhxfM3ZJJYrmmfoB5bF2UPxDDgZIT/lgy6wbWKt6wUcnE6CFT9E7JS FpUyme+IX876LVWMSF1S LDWPc0Oo2t60bbfPh4iCjA0llFkgDmbwsnIDu77P0mLik2WewMXvjmJuEAJaGrxHrw/Em8AruvRXAfH3 AF4InI4ta8cozHMkj9DO 1S+zQtri3GP4+bNSWjbKkTStNdbYHJt/T1Cu1U+61UpNz350LAHzVoWNwsEueVhuyiu4fKO6uQGKHR7C PFCFMGD4dWn0TC67bIDf kFWa1dXkExSzgMjfdGQI2/ULtCRI4mofxKToBgzKirTWNmllO44G7+8jFUv1mRvBexzugyDEAtxtNCx9 YXDhw/JbEO2dKPoxO0EH UQFwYzzHACZyCmUAeEtV0jfSMfw2UrwZf8x6on6w38eT9TWEfj9rLtFVT9Q4q7k4dwOggjfDZMmEX6jj C379+9Mpji4yySToykdW FtBezL7dnr9VrNRms5ezEIC+ugSjd6Icc8gVWJt0fF84yinhfBdJXILdMC36rpvpF9Yc9rciyGmP13xh SHr8bU5d7MMrc/kmQDBi fJChJQ9hjdJiUCJzk6mJjrcwLbtT1410lrSANSU+vJ5WQsLzdhJTBQ44EJ3sZzyZ5tzdw1IOC9xSswDX ZFDEveZ4hWKuQXwBohyB GQon+hrV7aB88hc1iLIbXdNeUvIgSunTSkj2yAyuvj10W5cA/zHtdIPrndK2l2wS167x/S8D1lLxMBJY c2+I4aFpby5WsGe7NQN5 dGntpp4StwpGTgNYd9JxNn8lI8Y8Mn2qlv8rMp66t9pZSg1CjeHhyfFQPGDvvLZRm+0bJifaXXZ1XyQ5 K9P3HqZc5iV8z8v2JZ07 aqqxQ2vseAFuFvyPqTUCWAvYm2dXI32mMXZjlFKmKWXaupt+RAUtsbRoKH8mOtXPuK2PqltxzrixB1bP RPZjVgFE5IqmDBXcW7Zy Eo56BEtyhsyniFH6m9fv1j+Fc4iDV5653pw+sdpXdjfQUQAbW8Z6SLUHYIPN4mqvBBOyBWqhnIdFCJCn cvrt6SezYn/jTPtBasva FdVgs610bmPR4sc2N6u38riMoshsFhB4zdlsk5UeHgLBKKVGoKakPtvbOS2GVqah/wMtCWtIUEqf/jhh 9IPctOyQTeRrqjRrQXJD 1efP6PblXClddFKf6VCktOzZVv+b8ZMfGCRTYGX4n0YhbXuVCF/siHzzSS5fhcCGEwGrQvczGaYgj7k8 7XlNfYNJuvAqbflCddpb IpmZhULM2CRJLb1wBy8kwDF8Dw4cv0gviaEsOD2591tmg2XUdz/o0Ff/xKDBoPnvScCUGLDJfqT6IALh El3AmHCqd7ONKgzET8XW 3806OWfCPIhmr1mD3aE2kLecIzUJxGkOvUdsEC4pR02/NTenPwTZrwwaXWG/XJR1OdXbuAwQWp7Ol4bA A5b03AzSpmaorQYGjJSR e6YvS6NSgSm9hzKMfpQCxy4hL3BE5Ciky97vrum2afsQREdgNguHhGclox8LhNsgJtnPJBi8vumg9gJQ enF0PkBN3iduJB8WmFWO vWNZBtphi4LgjKmgiQNBYdSYYxSSAeIeW4Do25mMFatpde1jQbZaQQZjrv5YyZHvG0w24GiTY4JsydBx 3G3GECrd/RytrfLxV8Xn E62DLQF+kogA9rWHXofn7p0Qv068IS4GdCo8CnArSQAChBDO8Am2aBTWDRostsOpJIs4GliYfvq+ySwz SCvhNmqmOdMrAjso45LW XqV28H6TpGUv2dg2sunmPSBRs2ngxsnufJnZD5GvABvYcDcoLsd9jtXbWJ+qnIYQqsz59oRUuKvf3IkJ 22RK4GOa6Aa04VYjfH7w /322+XW09+RxTyzrOrYDg0J0bx/9MeYynllYpDJ4F2rhXTFe9/ZYzXT9/WjFrsr9m5Url8aAiky3Maba RibqxV7Z6/We+DJ/Uevi DDkv8z44VpN7ylsksiPt++6451lmb77JmO3Hv5ANgZvhKqG3ejt9yvcl/iZmSn95SRKUJ4Wa1O75lAWp JQRyG3QKdT9JPncF6rPe HPFVihEwytEAIEJX8IOxaAe+XqM9samZtbvM4RrmwHembvQJRYja5URFNpoF2aBgrWpuUqNjwg0V0Vby AdFl7ITOj05SOnL02nAY wfVbzm8zsidHS69cKKhV1LE9hvedc2NtPsmIAoa8YqwzJdQClFLmBiVsboy68boMunCf5/x73CwrSpeY i1p6h6xtvpfIUMsQtJJK la95YGHxfspGATb2gNp7RV6uD8601zu7TZvtBCZ15i35SrM7xAz099iMOMCFULRTz8ZpoG0DuFBsPjzN wzodcFckdcaiNcCRC+ei MiWhsJ5DwmKV9ZBH9oYHr9WC+/1sa+54xhPqV1HiRFmF9J+EL8EoDTqH3JqjBjhjsQqnxHY6LaH3cNMQ YSaRbGSyB3Y+sGK6430J vw+gM6s8wCSrZC0g5npIVPc7BFg8pG1UCqT45to0+2FxEujRZ1iDIyvwjGZUGw2obs5znDnwAnA8+KqU KGCV/oXq7jtyzz7zMsZF IrOIepQ9lAmmMyjEBovOTtwM8aC0mqEzISyHI6ttIdn3h5lSqnbHF1PcbybSlAuUeWzX3r7svs4P59u6 gTstP7xXOcMVN4jOuJnP EYYD8B+wUD0+2LB5CczKgeF2buJsPJEBPzBe/Ja89IO/a/m9lGobdH0wjTb0o+MU6seoP6XLMgso6kQ3 S5HFZwCc8m8WzIH3W9LE +T8t853cDMBgPOMowTjA8o///0gmoJL3POAE+Y0E6cjPqYrg/ubXZjQQhiGdcfYaIw5k3MAFokpwoVmA c4qoBKHvTK78uc+4j7qF 2IypCSfuxCSfc9Xl9ajRRFuLmiv1NYaLvGFQS5DkLcsaQqpJUp8A8by1hiQHqoDxRST2P4aKM2qjZBi3 Wr7OgNcweVQik459HFoC 7dvUV727eJVXwUtU18ndrPpKTwG6LbMR3xx1mjuPdSq2R+tcHkGPqWoqFU4j4F3gkbHNep78XU+gxVr3 SkIDb8x06TyT55EJ7XQ2 Sm9NBKHtoOFko0YffROxc5H4cN7YXqfhwgrntMqUF+W4s8m9Adf5AXQMOIpLWdQjWT2xRhKOsAmFHYh2 9euu2Sxp2gSrdYpSqyv2 iXBBVCNE6JAOHzINzVThOUAEl+XqbzADTLPwnJANvNMpb3l3LnYRJXxyAbPFJDfHZzhb2GDpPFSB1J9W Qb1kDJKqISAscNURiaPA DjPEF80ANcoDFMgEJGbZs5FUchyxQygeaKMYED9lJTuWRLNqodmq9tnQwrfU+pSK8p2BX3a9U+Ia0D/M Prs4KsX05iUf1G1Ih7jI HBXs0XtiY/blheXkkNfB2A25BiqkqnF0tkbBOpmG+4f+qxFK05+EOts2pfuRKYzBk9vHknayGBnK+sbx HW5xAYl6ZmZMdgl2psWP rwfClw65uzq9yIlHal0f6EUb4GRKZc/pj5Sv3B+SP48tFiZM7PajJq0e+QKTWcmbP8HiXODCi86+xpMn FWPvKJEJrcDhWiIa403f kJiUXmCeUdg5bDmju0xLAmBTLZeK0uRxc/RiY7oPawZkvE+zClyj4yZjwDce0gyqGYAate6//770hQYH 3ZM01IHqndMTDJrOkH/G u5j6vV1w2cY5LUdwNZlcSX04/ogwHOF94OduReo04k0bjC5aSFFyAnBjmTl72QlbK68gVqxQu+X7YGJN xtvXCPhfnsxy2TnHJj0K xymFwWmewZOmOtH2qK+7mEqmIema2/qXghzQbHoFWFrJHStYQr3GQJ+E9AzwHiGakL7EvqSliHTLmUcD BCGYRjm+oEFCMMwDOMTL TZIbqSZh4GNylJTe/zOOkPVVPnQV5bNSUdLVQ7YDrVfIBfcAPYrRAXwnH+pRWKDwuT0jhSZdzRY8oTqJ BiGYRifYAHCMAzD+AQLE UXnMPBeKLTbYYSwStXViWEOpqFYKbMBknDMB7WOCJqONMxXZFtEWDphXnwCHCPgUE5qRnUvJAX9TZvAp jCVnge0MhRkzDAX+fn5k b+/s9bfD7SDYfvIvjkgdKNQmZDYxaVVtzpLd8oQTzfU5l7dezNjmhy2tabc6oVJI7scQ6dpe54rpq4S7 9xzD/Nu4hQnOsbjOOndV HChycx60YU+/FioY4fpIhiGowSprYsz3Jv6KPvXZNC6EkdBhx5vMj39YWFsj9qjrMe94uYI+bdq1Yp+/ xamgogb66+su8bse429N s7490764wlqTe9m637/ExgIjz8wQZ8y3qfkqz7jJQcU1ws7A1eLgQclJ2qC5xW2rXxJEa4M7+7I4fz/N OXS5HLXoWrGStLQYdKiM YpQoUKFqG/bmcg9W5wI7wfPg8JkrQTu11NZcd+mjlgasLUhIGdDNVMCjpNd10WWQ1ov6Iiah3tMqjeln AONTZdJhcwmGk6MBr6WO InNUW0vjRKCFnZ7Pi0HC1hzT0wKDGvrjjwFKUpJEw+mW2+1UGlJigFz9iFJL8Vxf/nglw0viOdNF+kTM 1mEAGC1+/btjX79+hm9e bGzdW01iPES2HMDzk2YckRcVZN32+ap0L+RyYw8dc6q2p0768AbrnP6DjcILZBFuUnb079/g4GVBA3bT DDQEIJYOoRPnjypUuSkc LBAff0aKS8yA29HyqXkVArxwoNfCHoMWz94QSk8S3+VX3/8FkPfLsr5vlRU5OnQIyuigocV1izv1epZ2 Un2j2HIkXRhuQd9VjK1y fvs7+t202vrVupCg3/2DiHDTVxNcnbnB0oTAQdjkSLovuADrlr780rMjirKLG2ezvjOQcxvDbwa8fSuC GyPigEzEfFjNvdWJh2gO vt8Whkr3ylX69NrE6AflzAOCTM5kj4fhBwEdJBtR1eK/Si/6lxrOXThV3/TzAn8bE8IXmksY5w/T58+K yL1fVwCd9uQs1FCxPDx4 aoy/Q693GQG2UT2LcLMMQehLB++OL4WRiGAYRBd1ZP8A+UR61phSl2l+LHHHlMpcvLXX3/QlghU9wN17 Cdwp5qSftwvzwkvgkKmo l/Dku0QrSwZJXmBqb77aMM/5ySQAxNGJ0Mjza/1k08+UTEmlSpVuurhIPzLL7+dfDCRzEVind9GQA+PK 90PU122P7us16JCYjscP PzNkU0kZZ9XL5R32Qb0hPseQSLCyk0qBY4//KDaw6v4BbIBYbhEnzjPJlVxK2+fEhRTHnVI8zi20QDXW qQbDpqyKzeDpBc1FDG3u alFJ266H8KRgVeqZncHReZL4cMTw1Q06ENoJSlfIV49njEyTw2QBJozl5aRUtUHIbPegN+w5xDnj2p2S jbv0dwvO1EOLC0Ovypad HX+gzExmWTrxDg8uvqVceLNr1I3l6979f6pRm57b2X15Ey6DFTfNMupL8i9V//8c+WYiHRBm629GPwd5 2+/EHsbqtl5xbpR29dgI azkUrmX1MUZTcY1gXknk//7rjsqe0XEGqde1tGzDvjrEPJwuSRdzFqjtkrJvnEC1XcUpfhbhaFdzINzS YpJzrNjHrRvcPniYhY64 QOd0AV4yJdgxP/UpDXe8Zc704bV7C+++ria2boFkM9cuTVocadaubNlHkywalGbNdXqPLnnjWTunoQl6 tUY2IMzWJrPp71JjSFsX QeNBc/B4yIVvuZUxLBqlsUS/O9//5Rb0RQfWni1/V2NTH4pW2KgEx/PeXkaBMtfwKAy4Zrn71JWRXlRS rVT2fYvx0laru7++KGxd CrW1KpXAqLb9ebzrRsg30zGv6Lei18gR9mHknlHFGhIM3HbVEhsdYv8lrUlqDqcmYg0TjyHdSJzkc54J iEXN2KZTV+GP6YkD4kFJ oUC5wqKhkZ1vTUFgdhO7AKLg2U2q6YxRDKhD+7/+umeKCh9qK/96fjBjTJAOyA1//37AxRW3z5tzniaP cNQczAcERM6WCAuvYgHK Bo799PzOg7tPWXxLN3/DUPR4bsQjPWPy1xpEmxd0anHe9IIPNYIhxym9YJfiSPx6y129fIWieWCE77+z aSwCRAPVdRa08oVu540m 3uhSb122pco3TNKexYZtPDOavWurBjTn/Mg8kPSXURBmwRHab49NQb4wpkyWd+0AiTkFC4C1ENewitxs 12e9/7777ftx/JM03jDT ZBeknjCCkui7AUJhqEmnxdntBNQKqvYaKPBI9xOLFCNb4nhPRg0+cqyEwj55bAUjb0WGv5poDLwWnEOB cnjQwV4zBV/h1gE4ARqn hiIf7joj3591xZUOi6ZcTBAgg7jRnAK84hvgOpc8L63qVKncxaPLZxnLmd6uCtYf+nFsRLS85dljEMi/ rw8P0YzHVidQNIpvGZ44 jsTIKhHsP+YU02KQhOsmtVUYXBPCuz4OvZEXeLI9aTqqy//uDeXS55PtXGlVefi8f359aN+U+jiOG/wL lPIUQTbxSUl4lngbs6lV XUH104uckThkSgZqe1lbLVIU+1q18VF8x1ZDx33PBn1lrAA//zzzzKsQaWP+LwA+rq0geBEkZhv/LTDS 8tWDYU1Iy8A/sIWpOc8s 5wxefJkl/s4XLC1Ktj+/Ci6waAYxdi5hw1rVLxq8h931FakcIUKP3liAZu7z18dLWXyahv++ecdXou+R jhUltYGgwaCyNGxAJVm5 30pUra5tkUI7o7hDJQ2V7eWfUfGKqV8PvWvNDCOrRKhhk3DdkBysS/+9a7VOxQPD8Dc865NHAwW06pns 9xaXf/+/VUqE+u+smXL2 vzQkJzhSoAAHA+n6NqZz8/EeHqfxrHSjwJmjgOBmD6DpBbFI62HES6OvJ3xcpuo26LaCUk3HTI+QaN3h R1F28Wuv/CZI5ghZFSmA bx0chEZGo7ouNWZQPFqrWyedWjayQufiXYNiYIiicPRu2lybxvgPCsLUtQHwAAPNNloeSXXeSWPW0BZr p7esZBLE54NL4MdxT5// ZN2Xi5IR3/P0sYuAwetQR54fc3Lsx+LyahvQQ19yFoaOg0mCpqd1wAFkBVJPAM//XFMjMsWyRrxVb6e2 oUN2lkVEljZcqlskFNEZ 51qAgcA8uw3sA362myEk2MjDzgZroFHY/TLL7+WbE1jHC7r4yFIpHWGXpXvKEeo5uf8x4I1XDXM36OPz sHV/dfSMTkQ7HliMHwK8 nlbdcJolZagF8mct5yZph+kJeEwq3o50i770pHR3UfYB55FFqblRUIb2GDFTihUZup6QdiUyzF4rRQD+ 6MDHctPFOFY5P65PVueu 2iMemXFZM+0hwrDzoJ2S4AKl3+aH4VbfBSLPqkkz9Wk6oM++yTzuhz3LqtLxLJ7zYozgERtboEkINiWs jp1AqDUYOrQiFluSi7AE BVFC3EXmKuoGoXXOdNl7oZ32Fj9Cs7z8qTxWlAjUIqo0cmBNlRjqpgGsW+Pw8Arof8++knmc/ToURVjg jgIv5IKsr0mw+6KcQYsu La0UE56VWBpRqtgM5Iz5trGW/zyI51hlMfbArPtySYccTLMpaGpDBB85vQhhFZnSrU4RUj38eBltsXR0 TcmY4y760TqSqNG0X/v7 RjpVPn4oiNe6JYUDJWdeYkIbhALRtbxSI35UPGkBD/J5gxYbdLArp+UVbS0cQdvyVudlyEXXYZnkQKjo iIncQIwCke16TsTnPo25 6gvJIp1Cy3RiCsdCbcmWYkVuDzhYu8fpyqzBcwtMdMztuKcbrOw9KzjvDufz1Kxm8PKXqtSHcrOJ18Cs QnX0nQjPnMIxp3KkQrpU 7Mu4wck7yIwNSv2izWcmltJZF8AZ7+yH/wEdPtRlOitf3T8PBgvuaq7963XY1sTUkXKthg+jP8SM3a5J i70wQac2vd3DeLBsPmNq Atkinson/J2C+SmYOBBs1xDnbTll5uz9hF1r6dnqJbJBNqswa5sZh0THCWVplkHO3YRFLbHC5MGLw2K4JOoPYB YeYL07gFRIRCEDyTFmTQ mqaoxRlbWbyBhDKirDF7jMl3WyfzOiHsaj9A5UTCWQJ2jbv+C5jpInrbiuLI3F2PACmRKI9Z7LZikDPS DRwynbCg1yF4xCYjdMbw ZaCfzxTDcjlLfHxcgmkQOBxHhpdwbLagsUYqDqZWHrW3kPt/E5LISnZPvlxbLKCjiy1Mnn74k1id9tLW 1Nu7X+/uB8Vmd2vDAlsk ODNA0npXKWEZQHw9c03r+3B3dJuPZnU0GljWUsVE6IzAYcXBFaOZ8Yw3FEnKZbt1eBFzaSwpa9YXi8Gz GlQcaExgXtRpUoVWSmhG r3YvUiuE9/dwFerCHU1bvABmVHHkVh2KmGJqAPcO3ay0a7D3blHkFoD9DltJahJY/CBEBYalaygMJESz 0Ii8dur1UtV0YfIdKCRZ sQOr0963HoynwRCHCETOmUpoHAxGBLcPTG2AkgaeZjegwVnbraXNSpWCFBZxNS9Th7+zib6nCk9N0a4j xs52ib8bdHT5HcxoLSVQ ++ucoDNQUG88mQjKZt8uGgif3FZVll71s/Ijruio40CrvR01NdM30ItJpfZ0Q6nj2JLO4BAjkHLiyyT6 BU7zWO34BBZPgsSfzzDU 7sEPNeYxunO03jfjbnvL/uuMJjOId5+0hNmz0X6v3Xw+gQdGhenjFReJspyVIYgmxtaUK267elOGVOfC W0iiWuR4+qT9Jln0mmWY 8Q7G/j47bWtPkjc6xU2bCur8DoTMBV6JZHEwJ9a0ZR1UjoH64C/2U1b0+I9dzLLagaUgLSRqzur0WY4/ 9tymQwc1WnLx5T2dmVsG hUOv9nXIWr2FhNwPFuVk7HN3glMYmq6MRdMdyeclNf6ZjE0bC23ReB0DtM3KPiT87gVV7veLAYnn1B3t nRheZfagp4/6OdZpy7AT 0DtQDqbU3sQKVaBFKvD6mwObYBc7Lk3XAF/6ExeirrFdkYRRCqOo63+xt32ffl14c8hQUla8fWUpfKtg loDidafSpFducHBlhtCE P76nU8JYS2UBQEALD7JvQKB9FWyZeGrIK/M+7HpNIZiW6o3oNnXAa7CzMjBmzuhkE/v0gTyjgHDcimKU H9aKB7fLPsKtVXkUH0Fb huutQDR1+eQFSYzXylfzAvPWI7OSfvdW7hXKk0CB6SILIujeWvrVklhtnvw0g/NvrWhYZdbb9320paBW sGp9pdFyYLNY8WNsy/+K I/3Fk/mQmC/t9ok0cgwgdAPV2SKBl19C9xKH8D/bzhnxivYl3wiq4PfkJBZxlhV27QFR7FZwVYm1yuEj PhU6ybLvgVunquj1fjUY VdUHkscdZveUuWS2f+jm8S+daQ7qz59l63w0JMaHlybF7Uwc1gtAgMHphD6JiD3sTLvW5RPXEKiH7vXu UMHp/5tuzG1bZ3h+1t4+ +23U/ct5bX0P/JUBsd0hjvkGHsOnIK57dJCCUeO8w1o27DaJlxLXFKAAxJhL9rYon2BrvtM7gFrZBaCj sJs7BULLQLBemqWgkHcx n79+syZNVcUlu8HCGgBDz7EN90T7459w5gmSZgMyEvuy/yVLDQi4H07C8Aurosm1cuxn8bJZC9jBIwAK MWVwYX29awri0VD6jrkY NAHc9JcF0pdqMgG3xbMq7P5vlLsgPTJpWjpEdZuPFf6yrGTvVbDAdtiaWm5gdA64ZgKiyAswmV95pVah O4c3R/mEDHYaKurdke25 9dsNO418roW511nyP7FjMPAnYXT7QTQ44N3owgYu8AHrQPi+ef7aoXJT/sxR2tK3uF9yo8a4FTfaCuYg YRngN/iCoz/2O3D9NV/O 3ErGj4v9U4lqmutQDsJhunpGyYLnwmcUuTzc/cB9Q+6LZEG6/RpAwkR6MaiX86iVMRn2wTXEDXzwFEFY EIJi7/9g4bebgxymqRsT cw/G1R3YpL8VAx2xspeuBbC5DttUA5NtKxzUgKsN4S7mH76n8PmmF89PwDeMMfytOJ/FND8+/bok015X 0/LFSGTq8Gmns9tCFUJi JqMLiBM+vkngIUHWn+wsGL+LzW2Xsf6WTuudzYJXQMPMrs6aPsdWkyICwp3pkMHu+TkxJlWNy1i63rMw ifqTYhYLRfa8MPJcjHWh idYgDAMwzA+gXKEEWvX8IuFWNbMKMoRpODrCTKpzLGl/9Jw7FVBM896MRZQWNxXRoKvCnUN></span> </div><div>
</div><div style=text-align:center>
< /div><div><strong>Patient Name</strong>: <span class=clinicalNoteMacroWysiwyg id=[id number] macroname=PatientName spantype="macro title=#PatientName>ALYSSA PULIDO</span>
<strong>Date of :</strong> <span class=clinicalNoteMacroWysiwyg id=[id number] macroname=PatientDateOfBirth spantype=macro title=#Pa tientDateOfBirth>1950</span>
<strong>MRN:</strong> <span class=clinicalNoteMacroWysiwyg id=[id number] macroname=P atientMRN spantype=macro title=#PatientMRN>[id number]</span>< br><strong>Attending Physician:</strong> <span class=clinicalNoteMacroWysiwyg id=[id number] macroname=AttendingPhysician spantype="macro title=#AttendingPhysician>Sarah Coto (Gynecological/Onco logy)</span>
<strong>Date of Service:</strong> <span class=clini calNoteMacroWysiwyg id=[id number] macroname=EffectiveDate spantype=macro title=#EffectiveDate>05/10/2025</span>
<strong>Referred by:</strong> Dr. Coto

<div style="text- align:center><strong>PALLIATIVE CARE INITIAL VISIT</strong><b r>

</div><span class=clinicalNoteSectionVisible id= [id number] internalbreaksection=false originalname=Chief Comp laint recognizeconcepts=true spantype=section suppressempty=false>Chief Complaint (Palliative Care)</span>
Establish Care

<span class=clinicalNoteSectionVisible id=[id number] learning and development intern albreaksection=false originalname=Oncology Diagnosis recognizeconcepts=&quot ;true spantype=section suppressempty=false>Oncology Diagnosis</s nava>
Stage IV SCC of the cervix

<span class=clinicalNoteSect ionVisible id=[id number] internalbreaksection=false orig inalname=HPI recognizeconcepts=true spantype=section suppressemp ty=false>History of Present Illness (Palliative Care)</span>
This visit was provided via telemedicine with the use of real-time audio and video via [employer]. Alyssa has provided written consent to conduct this visit via telemedicine. The patient participated in this visit, noted that her home health RN was in the room however he/she did not participate in the visit. The patient is located in their home and I, Dr. Carol Branham am loc ed in [facility].

<span style=font-size:11.0pt><span style=line-height:107%><span style=font-family:Calibri",sans- serif><span style=color:black>History today was provided by chart review and patient report. Cancer diagnosis began with development of acute renal failure. Admitted to [place] with this December 2024. Found to have cervical mass and bilateral hydronephrosis. Biopsy confirmed SCC, PET showed disease extension into uterus, bladder wall. Completed concurrent chemoradiation with immunotherapy, followed by brachytherapy. Admitted with complicated UTI earlier this month. Treatments have been through her local Oncology team and [place]. Anticipates a follow up PET in June. [...] internalbreaksection="false originalname=Medications recognizeconcepts=true spantype="section suppressempty=false>Current Medications</span>
<span class=clinicalNotProMedica Memorial HospitalcroWysiwyg id=[id number] macroname=PatientMedications parameters=ListType:Bulleted spantype=macro title=&q uot;#PatientMedications(ListType:Bulleted)> </span>
Per outside Oncology note,
Carvedilol
Loperamide
Miralax&l t;br>Compazine
Trazodone

<span class=clinicalNoteSectionVisible id=[id number] internalbreaksection=false originalna me=Allergies recognizeconcepts=true spantype=section suppressemp ty=false>Allergies</span>
<span class=clinicalNotOhioHealth Doctors HospitaloWysiwyg id=[id number] macroname=Allergies parameters=ValueIfNull:NKA spantype=macro title=#Allergies(ValueIfNull:NKA)>Cipro&l t;/span>

<span class=clinicalNoteSectionVisible id=annabellaio [id number] internalbreaksection=false originalname=Review of Syste ms recognizeconcepts=true spantype=section suppressempty=false&q uot;>Review of Systems (Palliative Care)</span>
<span class=clinicalNoteS ectionVisible id=[id number] internalbreaksection=false or iginalname=Palliative Care - Pain recognizeconcepts=true spantype=section suppressempty=false>Pain</span>
<span class=clinicalNotProMedica Memorial HospitalcroWysiwyg id=[id number] macroname=PatientPainScale" parameters=LookBackDays:All spantype=macro title=#PatientPainScale(L ookBackDays:All)>3</span>
<span style=font-size:11.0pt><span style=font-family:Calibri,sans-serif>The only pain she currently gets is at her nephrostomy tubes. She will take Tylenol at times for this, 5h248mj or 2a343uu. Feels that currently it is not severe [...] type=section suppressempty=false>Physical Exam (Palliative Care)</span >
<div style=vzvg-wsmca-ylwj:none>General Appearance: Patient is awake, alert and oriented, in no acute distress. Patient is dressed and well-groomed,well-nourished with no evidence of self-neglect.
HEENT: Sclerae anicteric.
Respiratory: Normal work of breathing with conversational speech.
Neuro: Alert and oriented, no facial asymmetry.
Psych: The patient is alert, attentive, and oriented. Speech is clear and fluent with good comprehension. Insight and judgment appropriate to situation.
</div><div style=ipsv-xomnf-nvvj:none><span style=font-size:11pt><span style=font-family:Calibri,sans-serif&qu ot;>
Comments on Pertinent Labs/Tests: [...] the guidance of her local Oncologist and [place]. Please see below.

<span class=clinicalNoteSectionVisible" id=[id number] internalbreaksection=false [...] spantype=macro title="#MyRole>Physician</span>
<span class=clinicalNoteMacroWysiwyg" id=[id number] macroname=LocationPhoneNumber spantype=macro title=#LocationPhoneNumber>[phone]</span>
<span cl ass=clinicalNoteMacroWysiwyg id=[id number] macroname=Locat ionFaxNumber spantype=macro title=#LocationFaxNumber>[phone]&l t;/span>

cc:<span class=clinicalNoteMacroWysiwyg id=macro [id number] macroname=NoteRecipients spantype=macro title= #NoteRecipients>Axel Palomo MD</span>

</div>

<div><span class=eSignSignature>Electronically signed by Carol Branham MD 05/14/2025 09:56 CDT</span></div></body></html>
--- OUTSIDE RECORDS SUMMARY | 2025-07-17 12:45 | XMS_ITS | CCD ---
Author Name Interface, [id number] lity Address [address] [address] Organization [facility] Address [address] [address] Care Team Providers Care Freight Solicitor Name Role Phone Chica PALMA, Sraah Gallegos Unavailable Un available Allergies and Adverse [...] Ordered By Specimen Source Lab Address [place]26 [facility] [place] Order PET/CT scan, sku ll base/mid thigh [place] Ordered 02/02/2025 Physician Order RTC patient teaching RN Patient Teaching Visit Ordered 02/02/2025 Physician Order Radiation therap y consult [facility] Ordered 02/02/2025 Physician Order Immunotherapy Monitoring For [...] dose. Ordered 02/08/2025 Physician Order Consultation requested Me dical Oncology for [place] [facility] [place] [facility] Weekly Cisplatin and Q21 day [place] with Radiation at [facility] Ordered 02/15/2025 Physician Order Port placement Order [...] clinically indicated Ordered 02/16/2025 Physician Order RTC SERVICE TEAM LEADER/PA and infusion to start with RT - [...] style=text-align:center>

<span class=clinicalNoteMacroWysiwyg id=[id number]" macroname=PracticeLetterhead spantype=macro title=#PracticeLetterhead><img src=data:image/png;base64,oQEWQx7BQxuMVZFWWPtUPoTMBTUAEEYjWVTCHNT0Q3wWV NLVULIFE8BAqc3g2GEGDYQlDM1WAVZpvoi7PLCOPSHWwCfXgcZVLbACGB7MBTCcOllKEUmMKPYPKLkx9 D4LpCC0PqyUBuukoaT7D ePhUrFDRQxkYxdDUppELUGWAXWlFmMGTFwlKdeJrXMbCZAF9HgyQc1EBlobX+u8/Dcf0caj4b06R39Xa yrisccxwAqWCkOO6zoRh FZMRNhSRuxQwpSeN7PzOQF6vC/qToiFRHvHdOXzATCaeMIFQBZgACNACWUFnfSCf7UMdxAKt/gECxCGY CqWA3uGj9PixAm4Qq1lo JoRxTmuwdRVzUEdg41JMvtuADIXx5tvDJLYaGcovYQxKi9rI2eScNqsCE7hsVMGjqc74cybvwGK2ufVN Sq0q7VXe2pfjAq91qYYW cHoOzOg6K4zKayoApJQDBj0FFmW6qmzwSd6xTgsl6jTKiXEVIsNsUgWyrlPKFpOvyK9sI6swi86eFNfC /FxPFxlo3JFx8hbn0Xd4 6oQw1x/sABhrlu+/sjxeq2545L/nZSCsDtoEckZc9iOVyIdbaqiZUKMODGY+AdQYHAQBQQQrV7+EU0e+ rAaTJiX90JGdftkWd4Vg 52PWgD1Qibmr0+bNDWH4p+xRx8a//1aQqtYLvYQGwYWe8+z8V1GYlqKd56l+4AiWUiXrlYDiF72hZzjz Tx++/btVL9+felnmOsJF iDMdUdGRgYFBQVJ/zNVrIwSxpxLFuyOBuMEFSpCQ1X2Kv5gi7/BE5ZYtw7sCl+JqfxbuJEQ5fhCAHkxN LHbH1s2pybxwzOrNM5t4 Bfhu11mQ1CDdy0B887wIpOF4XMSDVaiYZNntmBzBn7bvGn2mE47VJBiQvrBAX+9ag04fElXbZczgH2lr IEw/wpWrFhB8+fPp/Xr1 5ZoPnTQpBaEHa42lIOjotvsdEXA47SlYMtL04V/uleMrqj5EdOUCVAUhVZEpR5sXcPzJYIQaDTlJw1pc 60nsYszZbMrc6GhDSH18 RQxcQUSR4kail9ZRoNIvePizeJIgkSYOdCv7Ii70fs9LTeCCbdMlUmhhRvWI6r4/ALrCSvb1lCzAg+6s 79gqhqfAeDjuHQeZdM2D mHcJsAaEmFc61lReVHDAyNCa0ulnP4AcqM0Cm8yi5m+ill4CBBAWCDVtNVQICnsCzIi21//vhQmDFNQ4 J5stiTYbTXnVCKII8WhR 6pCpK819awgzpWvTKd66wokJhQ9P44tAh9a0a3rwt+iaBfQT9irntvZb803Qu/XtmfrNs6xlZXNnWaK9 mMDNW0KYEV6NFd6Juz5I pIioqLpu4+K4K34PoX6AD+gD2e+GxASl6gKEX3EHw3C92N9nU5fG6F6k++W1+gMJAcOWn02EZ9hbXZtl uiMlDGORJNOrxCxpdd6j PxBBfh7esY2xHmBUXNO5j2+v2Ly47lKL7GzGboTs4865r/IMNadTzO+WWJHquYw908IBqRMt66EQwMQA tnSt2/z7tanGf6YoVGKr 6TmbPqjXMivuwLbxe00ji/RGKlEqRBTqhJFmhNnjD0pLoE6XMn82IEa5rGsZ9NJUyzAFgBVHruhf07/M NAY/rB3W5eAPNlKYfnOZ +cafn7+ct6UGxODvgGFAEC1QnArhRB7t41uj0TfSlSPK724O8JadCIDJCYfhRG6yFJWMUmj2YgTosXQq 7QwXP7TUu42JvtSkrBNJ 6W/fw09dMcuJcn09AruaFST5atNc6z/rJhl5QMJAvqPe1KV2brFT0cCfz7crQdhRIDLn9MEMfYvzFez5 htxjytG8Ea0pdBnzm04A j7dJNHZQLh4T/x5oS71iWFWOJwWdCmgOooSZ1c++aok7edthiDzL2DapRnUGYoLYZNrMDXiwSPWvsVFm QLWTZgIiMUPf//9dxXrG gy2//equ1L5O4KRrdanNVb8jufT2yUSiN7ibynDN0u0kfWMUYm+/85EoYwTEj6teEiGOMtPmoX08HOYK xP6kMklx03+rD9FT7DCt hOtIFyMVs7VSJ8wqlqnxhu3tCsBnqNWkFtwxtxpdk6VYJ+Ex+QXiX7/g+mB3YDmQXxGwHdT3CQWI5ckT ysxNjbWefyuOe5e9htoh Qi97DYNp9/G7FWoA6hHMSqDiyRce+vK8AWB7LrVtrGQ5VmZrXUl62iXqAawI375dRs9e91wNzIaYZBqg G6uJuYKw9NPuMKP0ZwyC eUqVdQexwwdOlRuddeZO/EJqkUohm6WbpM5FuFsJTHBu2+vKLEFxdiFcXnE4QvgccMFzmyhMjFIwQG0/ PhxGd+uCgVem1dtVkYf8 tpqdf6RfSrMeYBXLkkuqg+YO52fH2CWDUUeNhwewLjqcdrStX2AYJbpSvOMsmmuRVUlPVLePKgtusf2t NG/i73IpvePSs6zuWk+c rG7jNySEcCwDOV349wWJtKHWUo1RRtXdmHKl+2hnoyXoxQOrl1EcVhvuP/064WP9oh0uToAUEiqLoYTS YN6EDoDDS0BHBdQMx3DT aUUYui5g+jiF3Po550eJ2910pwAY4M6b+1m3j2Mo0yqQjuz/coLsViJLQoE1Ge+0ZmBLj91mtOOEwtB4 wERGTpyqWkZlJCYRCdPn nc4Moliy2pAQNRn9xMl5fHvdAS60qfaE1d3gegHDQUvhWZR9t1QEig9g69QRCvzWW3EQvHZffh731oAo sOKP8OvC2yQ6FUhvbBtV WriwAA/ChCl+MDhwzTsiScoICCAbqhRnSa8+UCn13fTohgkx1/TnDAFCONzjP9peJpl9AsTDvT6yTrgA 9SlANsIk8PTSklADyRnq OGwtTr/oAAKDQ+z0uFZNQcNuKw5F7OrZbsXjTRAH5twmBqa/xCgcElU8a0+xWJgEzo38sdg75n7uDzuq EChA36bw2hQqTjYuJgXR Dj+jqfyBmEqKqiCRvHRSNqGXVPsXDVFSCPn0Ct0w7dupQib8qyn1qKq5z5RYQiTfEbB5db1A2XCIIC1O jn4y4B0aUpfbam52pVXl xDXJtIuN3yOqydXHpQmgqv6beL0PAyt4InN40fdQS1/c5fRf+OSYznhEUrmytqaM2yuDeyTKMF2jMx0m mGY/N2FPEZKwBm5AWele qJlH+eokDvffoex/iudNAoXbEBjE5AimhEeqNpEpkRum6v6L1YCGMsNLQ9PtgbKWBxmPzIzS2+BzLtpo +qiJSGTtEzuCusr8y56o av41933uy2dsu+MkqVKSz/PWXA2JhSLuEAb1IFMendV6ldyOdRUUZ1E7SL/ogclBkXrEATwy2IDc0iZQ QB6cMYI58lSC3qsscC4g nMLbVy/gZIyDWm+qvwZCOSLzPRK84ZapYV9eyCgStIphBHrmzF6+WRXIrGIz6ZmlDYGk/wpUByTkJZJE 2tEgkzKB3xRQGrWcUb94 +9XIYbJ//DZSNMfvRlEfKAFkiD4rPkPZogUGGc4snUagL/JcMGfvWoEo3zFZqh1DQF0wO1eA0zPwOTk6 SIQs3TJS+MKTPh8mTTs0 mKwH1JLb/1788x3e6s6zrIZoH8GJBrTD1HP+w+Ca7L8MACE9QZmh72JI39hFXRjRGA4+w+W8BSYPAzdL ApCOYZRgBjOtnps7jaUY XYzRqyRecMlVOMqxJn1e69jPQj9BTxtkTBUvzKELLcftnbQtH7yPiDsCICtd9q5KQ1I0RqF3wW0iLf5n DAp6UianXt+nurUrUcLl eVTYuto2P/noxD7Kq0C8grvggt7ESrZYrYyJHKl3PVOA7nUjW/JJIhwYjCSyvMO0Fa9e6jgp0Bo5T3as kPPBtYUF7qS4+QWVkxYX 3z6YLsFcuw/DqAL25mrlxyFk5vO+PbCZ8ZcZIASOzJ/BTf59KGqiLEJjdH4Um81KW6PIG597hpBS2lF7 HFaBN6dhYhhk72XavOn+ cIE9DHVIYhK4kCUS9sj/TbPV3SZtcEtRi+eTQ89+QV6F07qTCrkpPr12Lbcmv54KIDBMuHOec9RHHuSs fSSFcmSyNYpEldJLh7Ve 4WGhdGvew/Chx5kGI868RTzHCkaZJvqnqIKpMvzGJa8TKLhVj0Wz6gZQjnd+6eh1xbM5X84O4CkYbOxO 5DkrZwibuHD2MvE3+bNk 36GyY/gHBgIG4SNibhenTH06n/6ZbrvqdEUd+0gIYiUdVnuCXtDphFr7VAetXc/lk4nZX/fQKJ0iY6lU 3s6OlRA6h9va8UJZkRmQ CmiJ4BmTOExOKQibNsnOx5gPJen2GiyRnXJYUoU94IEazVgpv94d719k6l/ivbY4HDVShQ8WzITJ2kzG mxUl3fOkNaSgvD2rAUkK 3d8REqKIb+iv7VRs/FNNHXtFrp0+hz6fGT/SQYzPTvrhSEcK72MVco0NORXJOLPqh8+gQEUEhIgKuYwU TJkNWkjFA8VFxRsLzgKJ v43lnR/py5g8FFMDMeCkf2P6SX7/DUQCj1DeZzCLNM9JOBfI12T1TvutUmIEoLr+z8p/oSLpoZ1FF0/K dFmXK0f54lR/k6PywTru uRHuAuLyXcMHDhQ+DtAx1sTNg42ILsRJJUdRYnmjozup2Zbh+X+ddRcxkgOrJKHNTG5rEx66zdMFtgFP 1ln72XcAwLx5/kPg+U4d 5L1vVmQ+LhLdM/ej2PmqNuWd7FOZz5/1DC5r+8IurdkYSWBM1ucvx5piABK0jzE1W+voyX82XNDmfNWC JOvgEns/Fezbn9Vz5laj htSSvAkkG6GYrfgWWxDrTxZLp1aTrt/XEJHzsRRTOFgeuPtObR+gVq9J0wsoNwheCJtJfsQXjpjftYH5 FAWwdXhCeJspuBF5330W j3HuFnpGyXt6S1R3ZROkcvaHOxdjEooxMg4KAdoQ8ijkZCe5HrMqfDVcplCPHVUA1ki3DSBnsTPVYUnS WBtttOXool1KXRuDIIaW QpuUWFc7fTmCCsWvDaVIjUVcyfGXwcklvllXaE5Du9kSWelSn6VVi+I0hNuUXE6F611Y6ZX7nlgpj4En DB6jCm7LG/daKi4OGBjC KlxCUfYeJWizEG7gEqAlsqIW8ulQqZSoEV/25Qy0qkvHZw7nlzFn8LNeCAtfoBpevfBuqBypjSenPO4k Gne8t4+TTC4FT92hIB1j 3KiFxAGLuXyGgpyHtBoVqy1Lkl9/f5R4l6LST9gBSgSGxcA7NbhNEX+TbPMvqlxQM9c4kh/E6cFrqgSH KghrmNNRbiYbtq56gilM x/G9T1XrOT8YyzfIQYSwMhuAUR7UHfDkYpEbbyoaJ2UNtTYRcbbbLd76PK+kksbgAvZLMLSU8BYLq5UQ Rj/zGCBuDgKHDXOxLb29 oqzI5nHtvmFDe2glUbG4OZsMFOtuneuGPJVPLaMh6JEO2l9jRu0UyHsZHYPqRQ5s+D+mlWoXhGB5KjOy NoJjD4rHEqBByML6gEGp lS/lBtF0Q9+mnnMMd4jxHJc2O33KPItF4YXbBk3g+vn70/v1x9FkUupwNHGaxvEykQ6fPnHOGsC73KQs f0nwHiPHgKkV7U/rATi4 j6QTmMjE57Dr6Oq64yIwrjoirpW/J570Iwc/IqyD81f06FugBvH7Y8PWxwkPeXRDyJRHqKFOXmDQ8b7j kJNTJuKgfXGrBIxKN8Lx zZdpp8/MSZhOu4TYPUUNm/M2F7OrPJ0tuOz2QHu7huSlcRCLKHom0xfz2P6MrwoG7I/5g/qS5Bj2Lukx 8pf5g8dJZ1eOlNu3WBow Zh2FJOHj86Myxm6ZE/SXgtbmwmNJbjUHV4d1F3bAFVMwD16mQBwLW3dnm5SsOmO9oBFkaFn8WTM/AELE CZfMWjQIOUj+j5HNgIBE xSqLLsm4DX4Pecmqqj7LT9e2VYMRDoXst0MzdIxXq6bRhtpZBfsCSza6bk9gZ8l+Dc6/SDpuss3hTtVH 703k+tlC9fb5OPVKo8ch +752XzkPIgT9QVwAhfBtTQEDFuwqfcjSJO2knBO1WW+vvabM3ZiI4ruDdIbUY++PB0/lgyQbYuL19uRH +JHK7ACcBm3WVLbySTSG gT8qirLJEwO7QYXZ2OSPmm0KAEjobmZgiTiX8GlKD4tQBgtq1OybpO+GkSGDuPNNCJeFT6SzfpgqoyLB tKOv+DQ4FJuMOsSkOEhQ nzKTutrs7FPrMebPmPOTwVoWGCSZQFf2KvYIMT0XpAzURrXbs/NBJxY5wZIgElpUIzsAkOjxfdXgoMEL aSw51NGApVW4NJ7epKDE Jp7xk+c1YXTVh8WNfR2zOCy/krGoxWfEH+JUCWjWwjjJ3+vgwYkrkEKNpMhi7+kLCFEUoVASElOobtGm 9Okl21plefOczLNlXMM/ ysElNL6w0+BbyIbK90eyxerA2AFsSm5qYmBtoVf7+Esdras+vaeeDaWwnTBmLSheF2E7LrPjc+xQoqJARJ7 qm9VkmRgoGgccGwNY+6h do/SzNpzvmwuin4ALdYggUpnt79BP4pStY3k5YVZfh2YbfEhNHKGiUjcAXJrN5C+8g/HWt6avkYxoKrK ivWdbo5GH0Xas/tp29eG y+GJLy5CJCp4YL7RFL/oUNUwOsu0gRPIyPw/6MSGDt4Z+rXtENCOAgquSwZFqusCozavWNP1Vy+MrJQ+ BcycaN30ja7k5Plizatj qpWR9QviiVhIE+t5CdHLozxaqR97TSK1bk+/xW8uD5lvU56cSXGx6aTE0cT7dhTKVUeYDWxZO8a10how lXS4h5JSJEj2BwoXwUmW rFy27w8r7ZqOlTkACOPaYi+5Ca2sXhTWMqgjd3pVqQdLJPHMLX/zHtL7r+xwjKEcofqp9mZTpGnf60hr 8mkkUK9Nt5qDNpEKF9N5 S7+MxBG6jc9k82anBD3nulr1HsnXIRTxfx6igBtwEZ78RbClNLIOng4udsW+VfIMvGfmDewPQyED8hNT TQBeVu1w6TKC/+U+xkmP 8YVfMlYLI9+QCr7yoLs6lQCBZoXxlf31zdtQCcNx2PFvpeTqTzzpBDmhvK3AODCVidEmmpJDX0ska+PORTUGUESE gWawYJIEhuan8nkZpWA9 3S441bWB3svEfLMrmIumkHA3UeeFHQRtUWSLV2WeJqObFkM32ES389II4oNthSwQ6nXmSi3tnFOp+RPW IAw+QTgFUz006/T5Mnmg QFhb2zQMwf/bxBlBgVRpn+LtHlMYbJLuFFTTjy1qbv52taeTBvs7bd5xfNszrKNqWAUQSthjXlkhbdMH HqoiyV94IKFWMIcHAtdK kNHvIkMShGC6NEmk5CLuPQVdZnST7VFHPPD3ZadZ4YlwsGg6Jp1p9AwQuYdQYYKnJu+bEQUYAuXkC40t vIoXqN294OC5xjDH4Nhc RvSGGCShTZOtQriYjwH8wROnSGYkydtOxtf7kcU78wNJXStV1Px5FP8p0Y5djSbF1bzHqqhR/mMholzg JKJEzk0Oq3VMUIHIlKmw oZXLTo6qNHu5e5gJmotVrL8uZqp13TbOIs1msa0EWj+OGeygypr5DxIXk+DIqqFSXhYGCWnpVOoqIBT5 Uk8gGc14BoZ/zOCStZrQ vfgzPMLruTPpcuA6BAfaYhqrx9PiW2+8TwS40aUbuMHr2AyNgcS5Ev4Qg9tGQChhY6zH1KRSkcf7XZEz ooNhI5p4WyKqsKKwcJBv PiQUESQvR9ezX8+umP5jclZtd43XfXFU22suw6zwbbXVPsdQfrgmGeWvzNJrosBC6hmlnTrmVI9xpS4K 3B1pzjIT6owAz//mlb07 pmvQgWenE5DqYhcy6SB8tBCJe3l2I6pFylvayQXfP1/wXxebQ5ekGV5RQGsZMV3D1GG/y7SB974vLCID pVy5FP8b8iS02MpTXTF2 SuNQovAvjZhPEKaU9HIW7pa5xeFnW3RYjocoj8l1TwgAyHzZHyzqy78NXUDk9OycR8IDMn7y8ESoMgk6 Ny5k+rUqUMVb+tGN09+T 0uvPJFD7n+hc7rhgR/CkH4ezr0TeqhOARZmZKXvRefykc/KcSmz3snfNq1FIzhekfbLZaOt3NWn/OnLZ IWZDsJ7pa/Yk8oRUnVh8 Dwf6PoqtB2kI59FAjz5qM6/8B7zlOJRdTiNjKDdU+eA7eHb6B2zdqePJ6gnbmtLaIsH/wSK9ekIF+jkh u2i8733SH26RU1ILWelO iBMgeHTTz+dianne+++qxzt6SvriaV4DFcE9zdfQGcMx0XeRM6ZGl5svn50ijTUt43CxGTmkw6QFbOzxvtIE L5SQqfzurjG32hcH3qtJ bWNyiDyHK1ScVKG7U6uR+K1w+OIwNHeXx413+pT9ic8hIwzhE7cz8uFwx2rOdJ4ZEAajNx0yvVrhyTQM d6UNkLVEF7cnqjZHdWGS JYvEP28pBXhK0QIEz3cUU07llqtiGABNaWrzOMvXsb95m0jjvdY5B+YbhMgqIVRjA1/fyFMgikwJFzW9 KF0q4Wk/oqZCn2Fb1doo tcvAkqDMzBmUvIo3SkgMTGLW5VWHQBSNW4QXt+MkeQmm0ZBf5HPWEff3FQ960S38SCE77y0fo+8CBnpy WQIDanZ/M8pxykHKbJLp FejGPnTyLBxtkiFt1Kzs4zldTldqJlzlXCXiyFj/b6pY2Eop6iSOVKBzRgOZv6+kAk0rEln4LJeSo+7Y N8CFhsHS85KwrzhQsNvk NC2oXMgZb4/xh4in3xCCp7F3zF6aYD6k1t0lH+wuRsZEPqIMbxDexMsM3QKqzXTtcZOa6jxuOwBSFTnH mjEe8TMBRgX0JLZGyMVI n+5XeR/TikzmA+Ne65wYnKRnAR79b/rKJP5W3RlaUSo/NjRCFGLYrEbFtwasQyk926V7qHkWKHbA0QpK KCFTJaGJ5BWljhVZGqGi LDG3PBZmyTwZAeqt45JKyFn4m2Ko9KxUCgngw6YUZYSwhP1G9Y5KKsjqicnTzYVXyBiIrMia3Aflr1+J eJS/GjqRJVIUPI/I6nu6 j6B6f2LMVxhWHt8674ggIfUFgPdYuwOCWRvm5YELqqsHuZJppkLTKV5thR8a4ybltc+gZQgtCVQsmRJu WWYggBrIEyBAUubVKtWT kmmaqrUtbEVMet1bopMpW6FWR71zRaGBGgCNQ5tjBPvi5aZ+TkMab0eXRIXORDcFqJFWEG0dLmC0Catw dZ+K/fCbQuAoJj1Jaj+R wT8qOx/N1SQr3oBMyVC2jAqMq+xxRcQ/qBb7UWoLpz0h8zCcc10DUL5WdQaAXghVebplTilphfj0AGi1 K/38vSIBA23UV6rreFJN RYgTIFCm/RGdBtAsU+/BMnvMcFfXeX7l8Qzp/lkgau6sy44nBcYcxpMjy3mgyAmzCTn9b+JWaWL/0PCK Csjjc4/NYDS//hg5Uzzn Cx98nouagZneEZDtrA+kDj+Mh8cZ+R9mRYWs+/1U7uRhU6VaE56gaVW3vEKFj/1rFxn9q1x/6gYSnzpC UpbvVLG8+cYFRH2C1lhH LOaoL0NxYVuEbMmO5zM9R6RjOXNzGgYzCZKw5A+ucNnRhrSl4AL6G648FOEvr5LsGAGKv8xEKEpQEh1Z waiyEHPQZxGQbgSMx58E 8O2j8a5otOwC1XW8oCoHSoqLo7E0wMP3SPBY1P0jBGJcpWXWagZtpui8oEt62zNPuOEeJ5dr1FwzZZea X4Rn+gfQPGnjtuER/Pmz kBWMDqLGPWXMuI1vxZZzsmjmB00SGKBFvYhradl0lYfg8GVaOJyRxvJsVujXpcEtWuzYMWHCLIUKt2U4 PhY9qQACpB9HpwJXUr/S unSBNiqCWRR+ynfXSjF0gfwjJT/AQvjIDdOgW2HYQFOnKa4TYmfbD4btPqNxg4wVVxPSfFYWGce0GhJi ASJxMyLYKePF0APaM+aN Fp2FIAipAEYDZR01cKCVuQfDI5KIhZ9YSIdcDxBTMOY9TwzzQ4zgOqletugdL2vdSHtPuRNm7bLXBe1E leVrIE367lqMzS70zTam 1ExZMRfIOOVYUTdmxKt/ZSoRBmimUIzmLmCqFgpom+SX69zyAxleMJiLl+zGUgWa0cQ+m17rUd1avLAR l0T5XHX1dNZ1FGOa88Qd MFeWjedRfcPwSDq9ZdOH7TnSl9jz6BZUfaYrgD6Hj23KAMZbacfiUzbqmmLRROtCwJPGVHKR+qFHJswi 6IjwQSiet6dThVbdM9WH G+uIL/LZDTacMkE0y6WZ69c+b6gDUbX1DWnDjP/W+VIaS873NxGl11nSLa8n7RDx8UyqyQEK7YJ9zmDT 4k2AwJvXm/Kl9SCx9pMT eyGQSU4JORruoWWOLGGpZ3ZltHZWmOlTWrFMPhpbFyxWWPTTPqCQHm0mbAUBcvxQwtaCNRBuaX0BRLe4 VHSmIIGbvbEriNUuU5eO /YtMrb/XLCGp2T7MkWVKV4QFn8Fmb0rKsP6jcqFtveE9KwpX8uQTHgN16RzvXwwWdWTp+a+kDCiO/qQX +4WDTh9mMhGdJCiEfGiK TO19uPC7BwdXdFW6+wpMj5+p6m0LIlsTky18FC/nc4HWdxJOchIouPMn2uNpf+5DFd0JofJMGN3X3LWM ksJKiSEQTLReVGh/y6Ex ch0misb5V4W3V2atrFx5IKbfmNpePfpR6rRECY3tf2MwYlwUQk9qxgDI9LLGUZBo7LccP6KHb4ijHK4j y4xbPPXyR/nL0R/HbflD GsWO43xty1Zsju4GODhHQQOOEa5sgdufzQlorCgy8cFmZBCAcDmCuXZp4KGXVaf4KbM6TaAKA5pFAywY Dpg/4qI+MAgolChfYRFE z51QCHfYSRGwQYGk6QrQVc+XJtmq45dhxJXIxiMwI0HyZL8+Omnn+jPP/+IZkhelTCHiBK6knZnxs74A JpKTAxUkxCngyzHa6YQN wHXAG749bZ0YrSmA+zSZWmPdkiK8jcQPYOjefr5IlsqhUS+GljJuzppSJakmVDLHZj8nzawuMPDjDjkK Yg1FrPe21xCmNnVxLveP jgFCeYDwR4g2yvQamDcRvG+A6mKRpjVfSVDLsT4pp85jpwU8t053Y601LZFPVqoZ+KRMVBNTEVEtqmsT hK5siEIcJjeS1maVcXvr TRNERqD4sQJXSaexwx184BZTL+AreUUANwr3VzWGRoYVAKm1ZQNKbaWxcVTI86/4qn8a5j547VNqZ9+4 14buIhEsi9mAjRt8vEd3 Em9pYOEubKUJl0ZRLF0p6mrEIOQU0RqN3gIbQQwYiXUYHNq6npbaw/4V4CZJMypFRVO865hO3rI23+/r UIWIqNN+JLs3Iqdlq0gF tOmTZN+nKB1lRfAaI9pRyQcBzjoh+uuu+zQXpn5YdJHoBORBpylE4tXF4Vqc9TNLWlEVKPtoQZQiUg7z javpGrVqtS+fXsaPHgwC f7CboLYpZUDzoEEFyZaHPDvpTTBHMYgRQOFSBPElwIYi8PJknOWv/rLCdXIAZsYI6fZQIqOPK7HMmXbN IbxCRYgDMMwjE+wAGEYh nT8ahOLrzMB9mJdHRfKRShuNIVCUSmQ+LTDKGOeHVLmAZuEu5UHZGG+/CkzJwMxZCrQp2zjrAZ9rWDz/ G0S2pwLKHjpbPCDUfOPT UXFixenrKws+CVtx7pQ3sSTe1whl52f857zybp90rgwt4SDX44MPgrwnWULixYsNlCQbNRHyNh5yITId tSzZ0+tJAAVCy4k+ROPB Enxl58C90wvQp8go2mV3lNGqJzzFpZl7OILHoKsf0jzvauigXqWrhbJtz1MH6+evvjiC/7SG/Qh8iTED 5VxA8TWOesaUf26gEyon ezGSJ38hPo+/fndzetcxmnlWugZ13uMw/vvv1+GGSa/4jY1JRd1e4lv163TBRYTKKfHx9sCvFozAMQHb Ygz9hPDKMu/EytWrKDu3 wyAQ5Baz3/+mSpWrCjDjvjvf/3Lmv50oBSTXEfUId/aqRgPb3ZsKD16Ti7ekGCRa68OpEXCn7HuEJaEQ 4GqsFv7VV34uBKw5VSd+ xkVXa4SH9k71Fhdhn/+oQ47qaN2uGNhJjgmwOxZ9oUOs2ZEjBjdj9E12hOX0fcMCtVYDKDcG6r8ZZCvz bcFvmWoumzpl3eeNuydD VSDuGACww95sSCrJWwTVM54ChmZAEKcqdStvwZROd5i+NxP4t1U301Kd4lzC4QXeLUHbKAylazYKxvB6 OrRowfVrVtXhUiOh/g65 coxoA4SGuQDiKurKUzlTM+++KLyuQcvFrSPm2++XlTThLuc09/jev/9/pMSwXoS11bKMjNwGiIZCUit0 VTIO95++48tP7yGzfEnP cw/i1gM6Vn191SobVnQyz0xBlpAOGGisDkkjYfC42i7pZKXX4eOuGKUWckbhmkvixuyuQ1ol6TtAxUAA ETYzH/VB0eQyUXDxQKKk 452paFoo3FyWBvMMWLFazYj106S98ZJ7BoGC+/bt0+OxyAd+daaKZqTlXyB2HMkWpX5Eypa37GCjTCGY 3IGry7yNnNnIEyKijYMw TJlpMN+3Buc63//+186f5mpUnx4KI+CGu1nYGSHEVpPFcaFlFXQONa2vYXWhv0sau+FQtBe3M213JQVl SOx9sdzXpjBfUj96PC81 heoQU9lebGEzjogh6+tUrgHx+Ie4jfg/zzSXqs7vLFSOpKWjd71LaA0s0LKwR/9z9xw6pI8M/7880+aM rDXCWs4VOQwb5183Xk21 qcwPUoakTntiscbqEDRjRtbR64OtJjpNfQwH6lorJQ8D0oKk4fpsAXqxplP8SAz/fXXX/DOaJuIJ01CN LygNVzCFTViM4UR5rPBK 4k9TDchczTAB29pnggmr1/OtFCRAUk2cWjsoeyp2hWyjh88kjEi4dNqi8kimsCdBV83IOX0e4rr5GYFi 7gHkCyoEm30Bvm6rmH8B vn2rGHCSQG7lR/vb29dEHiwzMbMVv3ER+E9wfuN+24z4gPqqwuTF2nn3oOzQRlJqnVy+mjo0JGUVW4wV aVwgXgpvUKcDAJH+sWJp F+9SzVymYjXsI410rq5qLPyQV8GgUt2t2iIZ88abXwsTHfrF41hgmxQs8YlaJeLFqDtcTCENhFrU94b9 e2kdoiOOt175yoKgyBDd Xct2YPCe6utqbv64pfferCkX4++4vzZDSZWVYH6hmlbNtSz+++/R4fNOMPr8RnyaCtumqP2RR+kdLg+I axs+8PqKIa5KqKpwM3DO NXAjdMruFZmyERpJCNRcToWIJQLgVuLYDKNEXmn6HMSthtRNDooMe0o4d//fePGG2+C8wmhm44v6xgXe SLsKNHZ5ZIKZaeHGZcV9 br9gngycM6u5E3xT4B5CdPKUo7Y9bRl8g1RKVSj37thxEMxzl3EwdHME/dXHUDCW4EaJCbZdTLyOJO65 cGgN1kzfxcrNJ5XE8356 pJIJaSyg9zVe1GCmOYKBRUz22720a5RGKOMEKlHq1/8Lmz2983vSZegRdYcM/LlSIATeVg5hqs+33nnH Vu5e+FCR4Ol81azIlVi4 v484VokcjR/e/Garpk3SovvGVfqhJBVugWb96Sbh/uHFYo7gSiLYsx63JhwEWqxRSIdsnhKRFsBN640v uUNDrOa4cYHkpRboIVe6 R6zkDv32+1ZD4i541veqq/ViYa/8fjjj1/3ncZQiwPD4LQZXVEdYpe0zwYPUyGtRDpQi2y/TCdHc4PSK GCA9P/+++85jvVUgGiee +4193N9Qx5FWlW67qTCOkngcozQuJyMCyHt338aN9Tj1aYdx85aJrc4EVACFoWOV/aLlp+KuRrRwpdpR HsQnaRSl8ZQQZwOrbaQt jshlnaTxkRpIEpJZfhv5qstNWILLjLQjiXt6o3tAapgv8zCabSXRj1Sbx2J3pOYEhshibIsL7gEZGAcZ h562XQTWyOLITvdPn3Ma k1Fsft8453hObcsgg71zCTd65ENLIxqFWysxRLUDjkzSnKXRy/m4uauiwrg6xAdph6/WPf3sEweyJ52t whHhJoDLlGMtPz1oay52 bQBlPxFzJMiVC5n5uwFhdtPJJBgI6r4wrDLbuF9siXLPVtMl64ldLthiPkggvN0JjRwgpwQsPMRUlpTm Lsiylu1vb2GGK/XHUgnV ExShp1PZIaIyRMxjsZsaannndhRxSFgT9eeBU/q9Xl4772Z6Ro5f3RPyXJ3t6V2Fypa0Spcp10DBALSs QrVZcuWqdirQQvNERA8+ bkJYJcxigzvH61bk0wS2TqUuLvprHBi4B8wP6cf4wqvndlkE6LBLbySEp9xroeCce0n85zIAatE05INL kCutCaANMjPk/fy448/t h8ltsb25Drq05/lgRzk9wk5iHUvvUATjwRTIsuoiFrmYBmaQI5ZQgZJzTEJ+EJae/O5zE9qp/ToIeMcg R4ZR/m4w+et1HRRPQ2Gf Q3lFKQzMmkiCOtdN37jRqMpvIh70Yj5P1djQoPisNR9gmDRtoQXHropedrTJoY3au8h+y8yO83gmQWp3 D7LwFALtiF83B8bfyUrq +jzRqtngl4YgvqDEs+qyKh6DCRZD1q5gYWJJuBF/qXW4m0Xj9yExkRydAXyMt0ntGhVXcnQ3MahYBg1b Uvl2roII49b9nz75Ki9+ lDwZi7x2fpT8j75u+MR7247J0odjizSgpPiT+euwkcad+d0hjXPOQlx7J7eanagLq3o09XGkxrMy1Ejq b++5536wtPNde5r9gcLS l1ek5LKjs3A032eC0p5hWBypOKty1aQhf84CTU8WorBoLb8MhpX6yhXNVJnlLxm1Cc7BzAke/112wXCO ufSyt24UZY7FKRJ4wrEr zPMESwrQUHK9e9Q/9Xz1TuxcSavGr1TtrKz1dGjrc1S9LrivfCHUZSMiYapF2DI9ukPQiA2l8tZEDW0y 5cQ/eD6N+G+oIf86ispG BGO8dylLAH6KJfntqj44j+1bJWVZ0VxIQX1CnCcHq8gfPFvnDJIxaXOYTKh9FQcDgpMSWglxns65p0y8 tVCOKhrc31+DvI6P516O +mYB7ge7YjgqZvi58j3v1PEebR02emeiTVv2/O9qng5SUpC3FOBdiO5YduCNVVGlzYkHan2YFNDyPyjv ewLXpvxOmLEiBHKZ/Yesenia 73rWwyb02+EFs4nDp5P5780hfRAKJKHO20MCg3Rr9UOLanKGDPnKw6kE789nrXdNPWuYj1zs+uAVYivf HafspTMbrn1odaG83UtZ TZQpc4l8NADxhDE87uojNjKa1as90b8m+IxyTPJCZ0aNau/E6UHyP8LlqNPV1TAK8t6g6aJDr/YW1D5g rqkTj92wxdBsEfFkYj4y FFMHL9gBDULWdDtebQElWjf+/TZ0HaCMSKBmvZie2GLzfBlPcINImcRqad1837ftCeD4uc3p7q USQI1s8uR052Ykoz6+z+ 4gORcgbBkNRQqmYEFZoYJTTVqxRnctQ8DQGRunlioB3pD8XShVApZJR/nja9glKNx4xYxoV7TNS2C9TR FpUyme+VU096PEOEOK2B ZBFBg3Qd7a36srpEs9iMsD8brQfzJadhjrLIs24M2oTaq5IcjGDpavNwXXVmIsdMkn/Kh8SrnmPHApB9 VB6PbW7ak1ycsYVyu4OC 1S+aRatw5MP5+bNSWjbKkTStNdbYHJt/T1Cu1U+60NoHg294EIZaQzASkdEqzEupclh6tMV7nERQOH8G SUYCKNB9eGw7EO61fZDm lMQj6zQhHuKblQmwjFTW6/JZxXWS7vpcpFViVwbBvfHAHzncX96W4+2jBHx5gErVvvaxgfYXHicqYQv6 YXDhw/PhJL8dEWduM6BT RFExXqnUNFHnNoZFyGpO3lqQXwd9QmcDw1n8dj4r41mL8VRNiv1jFjFOO1R0m7h2kuIohxwQLVhYJ8nb C379+7Wowi5lxAFjqryS UpQurN6zsp7GeGMnd3ssMPS+vbBpe9Mej5qXZKe0mW62jnsfjOlDYGDsHR20rpouZ2Ug7fpcwFeD71yp EQx5oZ7u3RFgl/kmQDBi vDIwCV7uefCkLLXcx9oDeeiaEsmJ1247kuLHCTL+fR5BRtAugmEAVI13GI3sKpgA2bleh9BRS7vXgtFZ YGGMnhQ5mPGnYCqHkblL GQon+qqJ2pE02re6kRYqZbOyJjWmPxiKVzl6mTeqah66I7yZ/bGezHTtqrG6r5sR455p/O4X2bIdNUES c2+W4oOmvf2GaTg2FLQ5 dDwqlb2DqafJKmRGu9MxTo4tW2M6Vt7jzl8hTd76n1iHWc4KkvIczkWMUJBqiBOEt+0pVwfjPQJ9LlA1 Q5A3YeYy6iI9n6j0OF86 qhmiL5lbbDEsIewHwGVYZXqNh8yPA97mQDBcsAKlDFHzbcq+ENYlnlJsWB4mWiLAlO7NhmiwlcdtQ9lT DYStTlNM1IqyLNHxR2Xx Hm22ZAmjkkeqvEH6a8ag7w+An7hLS7410hg+qnwPdnuUQYHuG9C2GUYEELVQ1ukiAPOxSUlsvVvGPUEz upet1VfqQj/jTPtBasva FzSsj623dcBG3bj1B0h38wwKbrhqWjM5phqaw9CoAyCJSRTXmWudOphdOD2CCzzc/wMtCWtIUEqf/jhh 9IPctOyQTeRrqjRrQXJD 3rwG9YkkKMpzkDCo3WWtjTrCTg+g3GVyPMWRGBJ9c2RndOxVIN/qyXfiYV6amfLBBcRpTlplSpHfy6m5 7XlNfYNJuvAqbflCddpb OnzMjFBC9IGPHq9oLu8xnQH6Qr3je8egclEwRJ0050nhr8UPen/o0Ff/jFFZwLymKjQBFVGPlyV3MPRg Jb7FzSRef4SXBilNS7HH 0636TUfGDLjyc2dI4lK4oYjlTrKXtQzIlAlmIZ4aZ68/NTenPwTZrwwaXWG/VBR5VcGlyJmDEb2Lt1xN U8g45VzTqoawhFXKlREV q6KzV8NFhFx4urHFsuKYmi5hS9AT8Vjel08kjyz6vciLLMvyLojSrNgphz6ZjRfwUwxRPIq6gwof2hJS njK0SkGG2aiiWO8NvVFW oBIPIgkyl3TopDfthUEMMxNQCbKELbPwD1Ro18aKMofvpq2aYuSjEFBwlf8McKHhO0i50VmMX4IsysPn 5W9NPKxx/SpthtOhR3Wu R73OIRQ+gxqK0aIFRxzh0p7Vd213AK8LsEt2EwCvSENJrSUX3Fe1qSCKOBisvuQfGOf3ShhHgye+ySwz LSzfJndhVmZtHtps18IH CbV15H7FpBCg9yt8wnwxWBQDk0twvurkoNaTT5JfYJkBrAnsCqu3qrBvYU+rxXTNgbo77oVKnBun2OtT 58UP2GJm3Qx08PUzpM4v /322+XW09+OtSvumRjAXs4V0qd/5HvSxlgkXgMR3J4evYFLn3/ZYzXT9/OgKjpx2s4Zzc0bLbdw5Nita IigsuQ4X9/We+DJ/Uevi ITuk6r96XkV7hdtdjzGj++6550vyd05ErS7Pv9RPbOeoNiY0vzv5vfqq/sOsVw37CNPTT7Qw2J80sDOs XPOtD4NRuL1CKmgA5aCx APTBwtPssrXMLGZF7UUqiBj+BwS5szvQcpsE0SboySmkgxYXYEhi9SGUEstG4xIwlEzkZiDlcw0T1Owu BbRs6GLGe95SDyV80kBK xkVcub3dktpGD45tHYqP6VI4hfbiv4EcQfnMCtz3WeswCgUIeVDaOlEgvup63gvQpxRg7/r78JyeHcqT o3s7k6zyesaWPGeMfPRV ks25HFUwwxzNFWr1pTu7EW9eJ9870gq4IVemMGN27f50XpU7iYa861dSNOAPDMJSq7VshK2UsQXjJkrC wzodcFckdcaiNcCRC+ei FmOsxR7FjkGJ5AOP6oHVb4BP+/1sa+70szQdF9JzPPrR8P+KD7DnJSkX8FxcFxuodSeoiEA7PvM5jQTF CGwEyZGxR0Y+fJQ5495G vw+kO5a2xFKfLA4x5hrTIVk0CXl0aT5LPzH67ej7+9QpYzyGQ5sAYibetRMLIn2tcd7doVxlIuL1+KqU KGCV/pXt7nojnp1nOgFF AlFTbyR3yEmdCrvLHexZIzzB6hJ8rsHqWCqXO2usQxd8w6iEywoAH2KnhjcJrEiUkYlF0u7ijv8H26v5 mGvkT7aWBwPDQ3kVlHgG EYYD8B+wUD0+8PH4CowXxwA3mhYkULVTYrFw/Ja89IO/a/i8aQlhvC0hmGz1z+XL7tdoD7ACIjnr8kZ6 K4TGBrJp7h5RwWE5G4EE +V4a989pKBEpMJZolSbL2x///2wwrTZ0YXUA+K0H6amGqHoz/scGQuRXqmBckeOwEl1g6LFBftpmeJkO h0rlUVHwUA60mg+4j7qF 3KucAIhttYRiq5Wd7pkTIGtNlnr1ZTmHkHAUE3SkRrpaUixDOo1Y5lb9deFWfvRoVIF9M6fVE5wfUGu1 Kt0HeRvkeENqy617PIpT 5ppDR909tWZNhMzQ80kskFvSFnR2AbPP3eo6cyxCvJk3B+xcVgRPgUgoHQ9y2U9lwsVUzs80QG+gxVr3 EjWBd7q81UfQ07AP4GX2 Mz3YYQJceEMmp7TjaYJko8T2qA5RSfmwvykjiMsTS+J0k3n4Goy9OYTBRDlIAnNgIZ2fIcDLnRfHTCw8 0ykr2Lqu3mMswNtRacy0 kDEXQVUM9WZVMcVSeUFdIXHFl+AvfyPNLSUnhQOIbJNyv9v1XlUMONrzCcFYUKiHQoza4DPpPBGL2Q0Z Hg9oQEGkSPKfhVSCwlMX WeFZL93OSrbGOEnRBFcIs3GFdtsjAvwsoZBKFB2rWNeMVYCvypxr7nlXdubG+yOD0k7VA1h1Q+Ia0D/M Uit7LsK91tKd2W5Jf0uB MWXd4QklE/msoeTwhLdD7F72AouperP6wplCGbwQ+4f+qxFK05+AQsa2evvXFYzOj8oDgjxzTDdQ+sbx DI8xJRp7OgDGpcj7scWV rrxYel85lnh0wNtFyj2r8KVc7SHBTw/al8Nn1V+SR82dCcLH2HpzPa1k+MCGQyoeH9LlOFNGy64+xpMn YAFsPMCJazOtGkOe989m rUpNEkKgFpq3oLidc4sZKmDDFAbW8qAqu/JgO9vBzjKdpG+tBuhd1hKpyGhj6jjcSVWnjf8//770hQYH 6DT61QWtqkETDQeMzY/G t4c4tS5o6lQ8GZkzNKdvZD94/pduIQU92BwaLol03i7xeQ8dKTZsKqIkxZm68BupU05iYixDv+X7YGJN vezWFIoqealf5YjHNa8M vfjUtZntkHXgBxW2pJ+3hYcwOnlh7/dUkriYlSkUGKeQFJuZCh5SJD+V5YnwXfEapZ9BvxNquLPLgLwA BCGYRjm+oEFCMMwDOMTL RHXoeYTm5FNpuCLj/gBBaZZBJwIA9jSJIzFRL5MWzZmVLdfKYYuJLEaqG+iPMFZlmN5whQYbqYJ1jTqP BiGYRifYAHCMAzD+AQLE HPrBNEtHDKsFAMfNeEKpZSGzuGDOkWTucSLQ4MBCUuVLGrVZWaNKJihWqbCBEWgXG8sKsEuTDH2PLoUc wQXrdf4TaWpkMGZ+fn5k b+/h8yfW7UCQgtNmkixaPFXoLFRwjUCflwSt0vRWwnE5l3hzaIvpps2kdue0uFRF0faE8bdp34plh7V7 9xzD/Ev1nGzWmvuNRmlF WCdbfg03RM+/HktN9fgAipQnoDznHqo3Zl9UYvVEYD9QpsZte9cCl14YAZmm2xsmZq60uPC+bdq1Yp+/ txydhod81+ig8dey686S i9868160enfDn9d064/RwvPdc2lAI6r7xsvra8lUBrS0sk8N7aLrCdzM3xC5zH4sGuZAb5M9+7I4fz/N RGI0WGLvViFChSVHaUvM YpQoUKFqG/dorl1X1dM5wgCt6LfgMUu58CIuq+oafzlrCWqEKjOVUNNwxDt88QUF0kw8Rdvh4jAhneow NREHCzQevolZx2XXg6JI SrRIX5vtSABBcZ5Wo1LK6pqP6gYAPzzyuzXWPsDGh+mW2+8HOyIlyAe2xOCW4Vqa/xhds9zyLwME+kTM 8uZQSK2+/btjX79+hm9e gNntI67oUQZ6CBMxf6GqbNoKWH80+ap0L+QkIr9nb1q4c1702NoxlE4UvaGEMMMkQan359/j8UBXV3gK DDQEIJYOoRPnjypUuSkc KRXli3bGM0gZ84RooJoQZfympIiRMrJMi38CQx7H2+VX3/3OfYbYil5afWP5KuKMowgchyV8nbc5cjS8 Xo8m8LSeHTsiXc5SoI8l fvs7+l810osUfaNs2/0TlUWRLuSzhrxS6yBAVzbkYElugLZixa256uKfbaENB9cychVPdokXlcz7aGuR VdRjpBnUsAlNuiENm1sK bb4Zhra7bqF49RrJ2OvmxVSMGG2el8mjUrWdHFmJ0hA/Si/2fyvHMOdS7/ZaCg6lZ5WOvpqN4l/T58+K vF2kGzUi4vEf0GJyGXg4 aoy/K072MOR0PC4EnUMUNgiXJ++ML5ZQxVBAUIl8OY7G+TH69baFp9m+LHHHlMpcvLXX3/LbsaX0oL18 Ajzq5kQajejgaxgvsUch l/Stq2PvOyKJIpLej20jVQ/1aSTHoAJS2Wbuh/1k08+UTEmlSpVuurhIPzLL7+wsMGVhWEqit8XHI+PK 55IO002V6ea23NFCyluP RcHkM5dGV4YN0K47Er6pLthBZJJwe6wVN7//DWou1q2WpHXDbtVxtpBHpPaQ5+rLtAIYkPK9av95QOQD nLdCtyhQdtJnXh8ZWJ0i axBG033R3LSfDgoYimIJnZG1gFGj0M13FFfZLkdDI35vrSfNw1MSXlob1wIKsESXlWpsM+h8dCxe0w3X bpy0gceB8SRBF6Uhvkxy HX+agFizNPgkZp2uzhKqdFDr0N6t2625r8rNe92u1W05Pq5WWIiPUnwA6d8P//8c+BQrDXCx290SKeu1 2+/LZcuwrr5bjiV48wjO nduZmcB4QWNOoC0vIqmc//2kmzwv5TPJpxr7wVtRpwfXOHogTJobAmoppgOxkGU1ErFkoldwvRiuRYkM BeEsoPuPpMfjIkfEcP28 DWi8HI0bMvbnZ/HoSQc3Dl341oB9R+++zem4iqJiT2foKAjaustciGqYogzdyUwSlZpWYaufLYwshSn3 fUT1IBwDXfPn81CrCGvM QeNBc/A1qKNokQXfMGhkfQE/O9//5Gv7UVsUwx4/T7CTP2aN7MuTe/XrXgqXZhnhNAq1Iqi41ISKFsVB gJM3rIzq9qqan0++KGxd DlV2QqOWkOu6xkwaGxe47jYn0Ntw73gY8jEcybZLZmVA2PfDAucmVd5xbKbkTtwuAf9IivTkWXzpd18V zJRN1JJLB+PW2MnW3rIW wZI3jdImmQ0zHLYrzdE6OENq4Z7k4OiOUMjF+7/+tabROp4iJ/48zhHoGSKDkV0//77XtSA6d0lfwwsU iLNwlLzFSY3QJPxuCkWC Xz220NaUl2rVFYmMJ3/GYOT1zyZrRXOa1cgNipv4waRn7CYWYNTptjp8IGquBRz5w019jFRwqTSV61+z dSrNPYPZlCi43fCe581h 6uuPt904mhj8FSHvwPUxJTOdvRfbOaYn/Jn9sZTQQGUnyXBjo49XGz0pqhbQo+8ZvDxOO1D2CMjupyqq 12e9/7777ftx/WH79lHT SJvswpNBloh4JEWmvYkebrwhNPQNziLhNDVE2iNADBUq6mcPIz1+ocvLbc19bDVbs4ACy3yuSJoBlXPX twoXtY1xTE/e3yY5SPak ynGx7ytc8177kDVEe5LyLZKvv3mYqSH73nzmDak2K65dXWgpqaZCRkuSgq0hFzCy+zXeICO59bvnYPv/ kd2W8LvXQblXDBzuZH60 jsTIKhHsP+WU09WPlWntbBBXOZQPzd3PaIBPnQS7oIdss//zTmVT10NfWHzFabv0k065mR+U+jiOG/wL tATASEnrQPy6jrimc7lA IEP960vszMilLvUkg8ygMLSS+6c44GR0y7VBs10SLk6pfQD//zzzzKsQaWP+LwA+ue2mxLCoNlx/LTDS 3yQWGA3Lo7M/kSAoBq2v 5wxefJkl/k5XAP1Zax+/We1nmOFawb8ho3zYQgx6u986WreiTQVI0wmGVa1c87lCRLbhgq++ecdXou+R jhUltYGgwaCyNGxAJVm5 81nGwm6viYA6i5fWTN8I1kPiHuXWkR1LnFiXSUNdYAojp9VmcRrsO/+8w3KKwNXP9Zx506JAYqZ93qzn 9xaXf/+/VUqE+u+smXL2 vzQkJzhSoAAHA+n4UzEu6/VeXffssTNgxFiaiRMiZ7ZtRwAV31UMC6UqE6qnibd90VgZCx7BHZ+QaN3h T7D55Sty/WUG9hjFFWzU bv9xnJNBv0xrGODBNDgeAsuuOdspVjghPIUgQNineFJn1gkufggCPuKVdXJxFEYYPomeWNBhLKVM0EId h2dtTXRX49ZI0JrjS4// IA8Dw0RS3/U5oZlJnezEH97jp6Cxo+PnmnlXF51uVcaTy8aBihy3rCSgSNUBEE//MIZmCdAfJgsAp8g0 wYQ1syIItuRnqzhwVQZM 00mXoaI8ts8qV470gkQk6OrJryLfcVYZ/TLL7+WzH2gYB2g0aXVcFUMGwWdYAtr9th0k9U2BZEA64MFl sHV/hiVDFtW5GrvOPdN4 hjtthDrvPclY9uvl5kGyp+gEwDzi0z10l337xCZ3MyKH12BPcczQICl9QVHMknGGyn8BjvBvvV3zCIQ+ 4YERwrVIEFQ8X72CSjxu 2iMemXFZM+5mziDosM5V5YHn1+bN4UygOLKVbiay9Te2jP++vHjecb7FisVkLG0qOnhwQXzhbTeXIiDn ce0MsXZHIaUkBrrWz8CC IFUI3GDvNooNyAAGuVq7aX09Kb3Sg5i3pLqJeGjOOcb2kaVYmAgdrtPqI+Gj3Ynsp9++knmc/ToURVjg wyFg9IErs6da+6KcQYsu Gh8DL42QQGsPuauC4Kd5dkOL/hxF43jnUyqNkIsdVQltJBUblNwXRK42oMxdYJqRdO7BGw86rRigdHV6 KukR1b758MzSpAI0V/v7 TeuJNw6kkJm8JLGMYZhrHdDtaABAstgPO42COGyGR/R5snTapWHza+LNvT8gJzpxWctbwDXXTPjhIJpk kCckLEcYzm10PtBwYq99 8uvPBa6Gp2VmIsuQakqFIzSyIvjZd6phuspZszwQsOzrqGgfgHs5PyixCxvn1Rja1LRIfkJAjoCV74Rs OyN1iKtZkHTca3PyEceU 1Jr1sdj1sTsOTr3kaVqnynJSN7PJ3+yH/hNrXoErLqrw8H4FRvepyo2154VF9eUHmCCtrv+eG9AE2f0O b13wMjy3nh9VeORfHxEc Atkinson/J2C+YsHQAPt0pRasDnd1rk6uE7v4pckRwEWMgljb6fEc5JXYLSzljZY1ACURkVC9SXMb1P0JZtWDN AmJX63yWXIFCAIfUFvQD oqkguMbsUrdGwZAvnDL5eSc3NuygRsCyyn7Z2CKBAIW8dll+Q1heQkdefqGL8K9YXFlCFP9A1QDoiVRJ VXfuikAr6mE2rYKnxQhh BkGxwhANmqpSuLcizjdSTOmDllijwEfccNNiNeNFUnJ0eJs/L4TDLePJchhtHATpoy1Uuo49o6gm0rHE 1Nu7X+/uC6Mwt9mQBeto JSVM5tsJQNMFNCx6y07m+8R3bEaYLpJ9SckSWzWZ4IcGClJTXaBX9Zx8RRpUGxu4kKUrdZldr1OYh7Dw GlQcaExgXtRpUoVWSmhG v2JfTebQ8/emEnoVQQ7uzHGyIWGuJq9MbFLuJWmD4ha0y2V1kqAzQdP9TguYbrBG/CBEBYalaygMJESz 8Po5dey1WuJ7NpPgDOBN iTVf8750LwcrrHZPFYEVbWepQUjZQEdBEE5FxfdtBblmyOdelyTGAwQNEMGfGP8Nx7+zbe6vFo1Y0j4k xa40ra3vbBQ2BahpPXFD ++gtvVDFXU96qVcLZm7fYqbx7ZWDnl31j/Fspixs38DjoU80ZbG81NfKxgW9E2wp9ZJQ6CFneCXyqmZ5 RC1pJO60NORCrnBbwsFC 3eSSQvIdllO34hdmbniS/uuMJjOId5+5uGem3A8n3Sx+uKpSwbcwVWgDeoxNXSeaoosRO128nfMYBZyR I8ioPyW2+wP8Kds0jzYW 8Q7G/a77pHjWxii9eA6lWgm6AvYPWK1NXTHzN0t1SI4XixU35Q/2U1b0+J8rcFWokxVbXDUpdlh4QG6/ 8emhYci9DlAk1P0pbMkW sLOz3bQUNc8ZiOwVGaVl4SB6laTBed1FDzElmtvsGb6IfW9xF91SpX3ZhX1BNbK10wUR9daSFEln5C5l nRheZfagp4/0DkGlt0AN 1UyBSivI1qCGZaQIQgN1skVoQAy3Db5BZE/3RiaqfzWztCPUPxOa01+em50wns43l0rPEps0kKMuuArf loDidafSpFducHBlhtCE H84fV1IGA5XVPPQCY1EuUED4DJiLsSzKP/M+7ZdXIIeS9x0hKsPGn8KnTaKzsduiB/o1oKerrFHubaZU M5wJG8fPPhVbCApXE2Iz huutQDR1+rFRZPjYejbzHlVEP5GKxniZ3mQHt7US9YFZIwjpUgaYqsbhuvi5q/CowUyZIusi8496qzWV pYj2zcDhZOOT6AWcm/+K I/3Fk/mQmC/l0pu3fwdqbSCX2NYFr78Y2pLT4X/msaibiyHc2glm9RmcHKRhlkE45UNE1LIcRNt0jjPs AoC3abByjQogynn2ykQI EnIBvpylHscKsSG3m+jm8S+orK9nc91x17o4DHqPfkrI3Vfc4fcDcZVozU4DlP1jTQtG6UXDDNlC0nDu UMHp/1hkbW4jI1y+1t4+ +23U/qw6oI7O/BOHkw8wmjoLVgVdTX47uUSBBtX2u6e49LnHyqEKTVDOcSyR4kTle7ZjeuM0pItTReDw eRj0XDAIOVTigmEysDsd n79+feWBWvGvs0CMLtCXs5EC99Q6476s6ttHChMxGsxd/cVCJQu8U56N0Dxccho1xlee4rXCO0fAQnUL JBQkBP63vfkc8JB8swtZ LXQr7UqF1runLlV0kjKu3K3yqYmuPSGsXuzTmMeNGg4ciNIsRiGQxupiGo7yrV46RySlfPfdvO88tKey O4c3R/pCLLFbUtzeae72 1hlGW972ceH888jlB7UfQSGbTOT9QUP49K8afiOa2KIfWDd+tm8ehXVQ/cxB7yT1lO7mj4f5GUqzYhAb YRngN/iCoz/3H8V7UK/O 0NaAt6u9Y1piqgbWUtUpuxjIkNOwqtsUmMon/cB9Q+6LZEG6/ZkGekK2VclV97sBCCj4wPLDSSkoRJTW EIJi7/7d9tqiqzwxiSxV cw/C1A2TzO4NQc9iovzsPuF8UurQA9NnAmfBiCxL3K0lQ86k1GzeM30BpWqIXydqGW/FND8+/xgm228U 0/CJJPEm8Bnuu7oVTKZt JqMLiBM+vkngIUHWn+wsGL+YoS6Eqz5WNqcbjROKGEEHnp7vAabVxgLGkr5yaZWb+GwzDeIOh4e99yCy suhDDiHGUko7CGRxkGOz idYgDAMwzA+pHZCRWzY6RxERPcGNZiShAUvMGRgvCNk/4Ki5YSVK653EPDBJPuUQpKuEbXS></span> </div><div>
</div><div style=text-align:center>
< /div><div><strong>Patient Name</strong>: <span class=clinicalNoteMacroWysiwyg id=[id number] macroname=PatientName spantype="macro title=#PatientName>ALYSSA PULIDO</span>
<strong>Date of :</strong> <span class=clinicalNoteMacroWysiwyg id=[id number] macroname=PatientDateOfBirth spantype=macro title=#Pa tientDateOfBirth>1950</span>
<strong>MRN:</strong> <span class=clinicalNoteMacroWysiwyg id=[id number] macroname=P atientMRN spantype=macro title=#PatientMRN>[id number]</span>< br><strong>Attending Physician:</strong> <span class=clinicalNoteMacroWysiwyg id=[id number] macroname=AttendingPhysician spantype="macro title=#AttendingPhysician>Sarah Coto (Gynecological/Onco logy)</span>
<strong>Date of Service:</strong> <span class=clini calNotC[facility] Clinic Orthopedic CentercroWysiwyg id=[id number] macroname=EffectiveDate spantype=macro title=#EffectiveDate>05/10/2025</span>
<strong>Referred by:</strong> Dr. Coto

<div style="text- align:center><strong>PALLIATIVE CARE INITIAL VISIT</strong><b r>

</div><span class=clinicalNoteSectionVisible id= [id number] internalbreaksection=false originalname=Chief Comp laint recognizeconcepts=true spantype=section suppressempty=false>Chief Complaint (Palliative Care)</span>
Establish Care

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
Stage IV SCC of the cervix

<span class=clinicalNoteSect ionVisible id=[id number] internalbreaksection=false orig inalname=HPI recognizeconcepts=true spantype=section suppressemp ty=false>History of Present Illness (Palliative Care)</span>
This visit was provided via telemedicine with the use of real-time audio and video via [place]. Alyssa has provided written consent to conduct this visit via telemedicine. The patient participated in this visit, noted that her home health RN was in the room however he/she did not participate in the visit. The patient is located in their home and I, Dr. Carol Branham am locat ed in [facility].

<span style=font-size:11.0pt><span style=line-height:107%><span style=font-family:Calibri",sans- serif><span style=color:black>History today was provided by chart review and patient report. Cancer diagnosis began with development of acute renal failure. Admitted to [place] with this December 2024. Found to have cervical mass and bilateral hydronephrosis. Biopsy confirmed SCC, PET showed disease extension into uterus, bladder wall. Completed concurrent chemoradiation with immunotherapy, followed by brachytherapy. Admitted with complicated UTI earlier this month. Treatments have been through her local Oncology team and [place]. Anticipates a follow up PET in June. [...] originalna me=Allergies recognizeconcepts=true spantype=section suppressemp ty=false>Allergies</span>
<span [facility] id=[id number] macroname=Allergies parameters=ValueIfNull:NKA spantype=macro title=#Allergies(ValueIfNull:NKA)>Cipro&l t;/span>

<span class=clinicalNoteSectionVisible id=sectio [id number] internalbreaksection=false originalname=Review of Syste ms recognizeconcepts=true spantype=section suppressempty=false&q uot;>Review of Systems (Palliative Care)</span>
<span class=clinicalNoteS ectionVisible id=[id number] internalbreaksection=false or iginalname=Palliative Care - Pain recognizeconcepts=true spantype=section suppressempty=false>Pain</span>
<span class=[facility] id=[id number] macroname=PatientPainScale" parameters=LookBackDays:All spantype=macro title=#PatientPainScale(L ookBackDays:All)>3</span>
<span style=font-size:11.0pt><span style=font-family:Calibri,sans-serif>The only pain she currently gets is at her nephrostomy tubes. She will take Tylenol at times for this, 5e773yb or 3e145vp. Feels that currently it is not severe [...] recognizeconcepts=true spantype=section suppressempty=false>Bowels</span>
<span style=font-family:fidel Peck serif><span style=font-size:14.7780px>Has been constipated, more loose stools now with the antibiotics. </span></span>
<span clas s=clinicalNoteSectionVisible id=[id number] internalbreaksectio n=false originalname=Dyspnea recognizeconcepts=true spantype=&qu ot;section suppressempty=false>Dyspnea</span>
<span class=&qu ot;clinicalNoteSectionVisible id=[id number] internalbreaksection="false originalname=Coping/Mood recognizeconcepts=true spantype="section suppressempty=false>Mood</span>

<span cl ass=clinicalNoteSectionVisible id=[id number] internalbreaksect ion=false originalname=Physical Exam recognizeconcepts=true span type=section suppressempty=false>Physical Exam (Palliative Care)</span >
<div style=myet-cwmcr-fjmc:none>General Appearance: Patient is awake, alert and oriented, in no acute distress. Patient is dressed and well-groomed,well-nourished with no evidence of self-neglect.
HEENT: Sclerae anicteric.
Respiratory: Normal work of breathing with conversational speech.
Neuro: Alert and oriented, no facial asymmetry.
Psych: The patient is alert, attentive, and oriented. Speech is clear and fluent with good comprehension. Insight and judgment appropriate to situation.
</div><div style=putd-vcxik-rtvr:none><span style=font-size:11pt><span style=font-family:fely Pecks-serif&qu ot;>
Comments on Pertinent [...] the guidance of her local Oncologist and [place]. Please see below.

<span class=clinicalNoteSectionVisible" id=[id number] internalbreaksection=false [...] spantype=macro title="#MyRole>Physician</span>
<span class=clinicalNoteMacroWysiwyg" id=[id number] macroname=LocationPhoneNumber spantype=macro title=#LocationPhoneNumber>[phone]</span>
<span cl ass=clinicalNoteMacroWysiw id=[id number] macroname=Locat ionFaxNumber spantype=macro title=#LocationFaxNumber>[phone]&l t;/span>

cc:<span class=clinicalNoteMacroWysiwyg id=macro _[id number] macroname=NoteRecipients spantype=macro title= #NoteRecipients>Axel Palomo MD</span>

</div>

<div><span class=eSignSignature>Electronically signed by Carol Branham MD 05/14/2025 09:56 CDT</span></div></body></html> * [facility] Consult Note <html><head></head><body><div style=text-align:center><span class=clinicalNoteMacroHighlighted id=[id number] macroname= PracticeLetterhead spantype=macro title=#PracticeLetterhead><img src=data:image/png;base64,gMLDXs1PPzcMGPDLPIjJLwBMZHWVPBAeCUNFMCT3Ev+UAAAACXBIW HKJVZ9FI DTBpHBJBk8dZQIMzntVTDCZLMf5A55cQcIsj9FxTdntcXYYQMZULJ10fGSmg6Z0YXJbN2auDSDyn16vU XfpKECRZT8vNVARXItwM FuoDMN4SaBrkoubMNGrOa4uVCl0xV1slGF9ZXY8dXglqtx6IMBzEZ2qTJrnzyjdKMAxVhXewFf4lAR1z g1yVNQzBcWbSG5HLSStj xRdKz0yIEGhBNDzCykgYYF2NSJ4BEN7UOWcOEUpQxH4MnEoNFGxRwXqGeCdTDXjPMTyTDXjQkA0mrXqL mCZYzR4jQkfabuhFBC3L rf3rIQ1Sv55h7oskgPdk9IaFeB1HDosWQKtIcFlaaNsFDO9gxQazK7cmqCeWzS6nrDdAmWuw3EdjCI1v W3vICNrUbjlKc97eN6lE fB7rFcwrjl0oGC8Xis5sJW0Zj7edv3hFK7oRG1md39ptDRpGuQmEU5xHMuknT6wGyPuQUBoxOWfRt0jc TJgnA9osrnmCFXlWUjxh NAwzZMoWV8cQiYktE8xdeN6iRsydO7hcY3lGSEzwFLlBb7acrChLIWwEsTiD29nU5Ywm3Zht2ubxR3nZ uLlWeD4wSzjlzb2qBZHD Q6lzNB6ePvhJ44mMlUsm3AkMsGhjW93MQZtFU3sT60zTdMzpQ8gnaE9v7DApkB7Hfv0yMF8Ua1csk8xF G1xQL4cd90eyLHrObYgB N2yQKvkUX9SNCEuhKItZNT8EN49SuTpcV8lFnMrTME4o7ZYi53sBIWBBG7bILZZqW36i9Pzp2IgSmPyL MVbHQDalJ46u4OqIIAsk V5mBjXaQJX1RSWtaHP9FaKnGsUfQDZmZqqJRNN3Bem3CeDjTMK3IEMdGKoehXoIp5EiSudWGCKrDDNfU ODdKULoRWU2TTBaChFzR PS1DhXpDkG6yBE3LCY2DXFifGYBVCRlNLXjUKQxAPBkDKD0HSOwYuMeQXP4JiPdJqVpRaerh7CpCOL0J kfnIFozL2TgAdKmvRpii N0vsG8rKhCjvT8pBT5yUF7bMeCgxM3qWY51ZB9eqJTqI1WQJW3ghR3fVodoLWq6XRSrIvEgKE1oWFRyL NO5IpihOWq3XY28MsE9I JAmQcNdXCCpOKzwlO2TRvGiI3BvBX36VKW3RiaelD0muMG5KQScCaRpDCCgCaeuKz74RTH4RNw5JnyoE JCzTzRkC2Z8OPDyLtQ8y DWAIJqEimxntS1xhRHoD9AsTD75KDC7VuxeqR1ykGE3ZZIhNzHaLWVrXedpTj85QGS4PEw2PgrkIMEhN hVrV3I1WBZlAx6kGAHph 7Zik9fqlMaLw3X6vEZcdEQgN5DqwF6tii5qRRQfOisQCVr+UMdtIKK1qVv+yU2fFiCiAAw9ZrX4B6H8Y HRcEBJaKTJ8WBYtOzpKJ AF7HdFTRoPzRPlujlRzFdnsMzJ8O9RqPmqIMLl+GYojnOxczW6tqX5vLiOtB7CsGB30IL7fMSJ9l5HiA yG6hU8mJR31VPnxsJ8kg W0dGQOsCclJKME+SKsgZYT2yEwnq8RVqnV7CWN1wT6yFQNxvyOaiYFtYzZuqOA7gEzkchJ5NR6vCIxJA NM0rZPzdMstVgfyBpTuS VK5QBL3XGXgVKLmIN21AWy7XGXtSOjeHZExRJF9TvNey9TWsfM0r3cyzl7uBmGzZb9jDE8qW1BvYQrkS MscGO9cMvwlEOZjh5CIt pW2h99vrJddmoZCF1CxcG2eOWPzVqXvKFxwsR1ppZ8qWXSoIeNaGZ1rV6vvvM0qjQsvPj4vPB1aNFF6Q 1SzSkZ3E8mtuC6UGiaqt 3Rvcnk+MMyztuVcSfAds1FjfIZ1sJ8cEoT8T8LuKmfNOTB+OUeevVs1hBLeXBTxKeO0J2nhOPJjGVKsR G5aZFXwZw9+pwQ1RBNCB yBJREFUeJztnXVgFEcXwN/K+aX1pDT7BGQonxITZt/cWWIihWefKXFdFalaqm5UVMzhYETtDTrtJ1ju/ ZR1cc3WgnerZfAKwqZ/u m60e19Snu5+eDktYsFhHMPnSLmnLJCdqTg6HNnZNrBpeLOsPHfDaNEBxDGsXSfwZDdkFEZDkaJFL1PVh BqwwsJgMKUGrLAwGEypg S7pAmD+U3PVhOs/ccoQnSwE3iOYjsRBp1hFCO1mtu71DWqzsZJDc/uhcK7yEE4BJiBf5djJIy5r5qk8D MNwLIMQAiBIiqJomiTJx k0a/uHaAiRsBIuRFCV1bVeT90x2v+pjtOpNY4F0AQb4ZdXH7xOCrc5QSTBpESAVfPiQvOqO6ocRYwlnP dr3rZVRHkay1dHQKNvjU z8P61XJRg03H5ZLcuyTrf6v45rgAsHcuuKA1cXESMKZLh3FZcDlSKgJaGIAg+LEEumob7+Z+hCVKR9nK VqEBhcBu8Nr+kYdS7Ols 7OFv5ao+8ef/ZiB5OmYmTTvksAMEWLwHZWWCTWpvou48/oLf/5BkMSEiRPH//VPcZNaD1aMQqrbbxd+9 bpXj+4dfYznIr7m96V8W pRP00KBWQHGkCirGUe4oJgJMCx6yrP0zB42gq8CmkS2F4WUZ/OfvSii86//B62tIJiWjE1H1ynMfrFcq zkGWANkx7rkap28cuqKB j926qS/v/4nCCjoinQXPEbzOMHcKW4Hbq2xABh7nrLptTwkaw3jmfJywG+/v7//bQMbmf2xGR+48+jFq 4cjf1SKqrc6aOffH+zet nvJnEaNm/zliSxtWgUUgahtIzwGSNJnh2xPfG2MFjJ1/WWZWp1F+u5L29UJIjKoYwlRn4SSc8aetsJ7T rZCYTAYDAYDQRAkSRIAH XuaODk3WOxWFvzLXk8ZD1hBQ05oQLMf0iRPp/pwzHUpDgifsU8RDzw1wRNixcg+apnE8AiPHGpFEDPtB AxdEZ0FRjJZKpJLMsamG 8KZdBi0q+3EMf9+dRwP3mxet20haCHzam2Gv9Cq3HdWkhiFm8Tz56E/vhAbWf0jTPlfRHtkzUi2/5men a8PyWdu9wMm+1WrtvWCO 5erXpOkKYNWm/+IXczUHQ3dgv36/+B8D1pBdk4YXBT9MBonCwMha48Rd3S5qaTJScKLkod4+FkHSe35i zaeKcznPqAGVHOvHjl9T ce1rwlBXXRp/s0jpNO2G1kav2069iDSBadLMJsPYj5cwhc6uw60kxDPfUfoKYSnLFVGG2ZcU5qO2Eznm WdOnXocEUGLxEHNWrTuO 2eqf1QYpZpl9cI8sXPlRgk5duAk0DC6l767adUO0JsrjOa4cZc33AY7hj35b+Po2VLsa/9+WvX43bm77 u700f5Xg8YtiGRbi6/ft h1/qXi4qW56jJmiKLqYVdcdZDgV+/j9lEs1kzgus1rEujFCIifjrfdKgRfG9sznzfX0GEliwEZTRRu3j OStOnRZcejshRTNpXTd5 QzDH+GP+o4e6+mo3tUQTfkkwLmNflT9fL0vUa7Wrum96ntPdqsZd5uD7Cw0avMf3W5mYc8tmFzWrcFg1 K25xplFZ5TCDDSJxfhgR BTm0QwWwVKfI+7SxYsFicXHx/e4yEzs1XbyGVxyGa6sJQw61xeS6fnKpmaBWsrBFhbb40ZarfwhUSKsO ykvHL6XjSWmEFm035SAX Npch50W0PVwMxJ0wiGTm0k1c2Yo7vr2DwmT+W+AFRYGIYS+GTmqnI+lp6crlJ1Elm+M5MbWIpJE8LUPd mlDcY2RVsX0kIcLq9+nt 0y8N6sbeH3dh4KJyDGmNsir832eS+jIicblLaSKgiK40VlaEb6nXZxbeNvL+a+Qb7kZQGYnNky8sblVr oGzDb940A3IsSBtVBrwt EZjxd0ljD5Bzz9cRDaRy3yKHVYITiVXyHc6KELaAfEJtVi845+HRz9+SNPPGy8fR2BK6ct3WcDzZAFb2 D9X753UCjgL3U01Q3XRS QNVDwNNGzS04MZIT48zwmgE5uwJtgbXhLBrDcKfc36noh4niheRbQ41HcU4WdfAix2Tge0pCmZj0c0wv 0bjLW9sMTK68bkLd4mCN wm3ScqddqPpPEC/JJSAAVh20Gpkf27cu88LqMICzR6xCTkE7ejkQ/4gvV4/r76yEELKAq2Vk6DnT+9Iq 1FH/6O47BBeXOLi1uqRK Ngcy940u6/nj1i/XJKNVXhQcBibMOOEoHXb4ABdd9Qqp84AcB/R/MLBCgsDqSmpDMPUq1+lSTkr4Ow48 lYmYxgGbmDSDfj0b8hQ+ /CkdXmSvnf9b7b0PqPJcUkrRnxJYi0QPPYlGb6n1RP1/wyvl05aU2+4COCNGiD1oLLzdUPWe2tWCkp1w lFDClILlH5q7AK5JRXkU SW84VDwCEkDxbfXmZYJKDgwQq23Az5+/rHe7lWJdtw4oszjvXBjrw9wg35VaB8JCo3+5Poq059DPmLtf nbCZKFGI+C9CGWTSXIiD hHCeVxPLYui3QJVo4xJSdk8v3x9cDt8yHmpRHBcnLFKkxk6ol84YzpgCp3vpw5skiy5lZsdFCepkJicG ekEbo1ksVM+vWCFhQGKo kiStHdwBACTHzFB/HBkVwYN2hq+miLHS2vpkp3PSagqkNpJvaZFPTbiDOhH0XGa9yRC7iXDewVndviR6 BAEIARAAAGERqPRaNSqP KWsUieBYCD9evFuSQfDkQWGuvoGgrMK2a0H6bs+4NmTMPs9jLYytjRc7LNuuGvjj5uQbMBuZdfKaS/wR OBRGur3OpciMgbSgXLib 1IdS91v+xZwd4kvOr7vCVyegL9Lme4a5pGlUhtZCZb8IodhmDcDdyprndAxAoQaZiOJAIhbkyc2dat78 qnS23epCCBAY8Oamu0Tj UqlD+4/rVmnOpal9Wq8z13jKlpn4pjSQKMHzGSJhVvJDEHQaUQw/CV8nSu9pwXQRhmxTGTBh6vTZK2VG WnpZ0+wHx8k4Q7bv7Upn esms3ZKwb/nvNcxkCTdf1yYXocweJyrd/AIKl/Bf+N6lMJgSGOjHTDJ47p1U1UowX24h/y5e+W0Ij5vN +jrM66djlTBLB7p8n265 EzHrgYHDMHFxdsfGdPn1ayp1tg32GXie7ekUgcDCtB6tNVB0afZREVFeEJimhfEoDnBX37+vhzLpqalx vohxp7e2hX+/S/jXpbxK tOle/hnEc7wDRjc4KrvE5gAlfdzxHwFZNis9kr3MK2/GC4JT1yW5/MSKOcBmZSRIRp7SWDI612uEWb14 eRoN8nXopdWyWsOjlQWu nW/Uz36/Q7ndd63165/f/ZsyJmzi+qGF386tcg34BdSIv4t3FwPuFlKgdaF4IltZwx/mdZ5VOQIRF+io 8t6+nTh8fSnjOfftbdS5 rpsl06V6dzp3E0++qzLE4oN2aI1BCDJDA3YeDY4ok9NCaVKuPKVgWtI/gyQFwpwW0r+vl8GAZx34MMwy iJfRgpcHZymTZuBEGIRQ yka1AbBNMxpq2ksJ8p1BrqtOk8uk/cr+/n05TIRIHb/WfrKiYYe48/RXK7oN6U5tcNLEgr921WSXbyJE 3vOVOKvRUXvN94FyZGmz N2sYrj9w+ahhitk9trYv5eJ5jDH3s9IfajHPG6XbqvhAJqDZhw4pUdfp7UnvhbN9+bmznJSneBWNiA6V qw11fFx3+9hs7Ga0BSl6 qBIQT2LP2gggo6cWZ6IRRHBWfKgTJTIhvsWRfEzDVDhsPdmRk3tvLpAeo35qtkaEJkUZRLEyOWaDutUR E2TB/rsGApzo3QKt8uAf u0V2IxdXxb8S29f5m8gX/HbXEXSdlZaGvx4CJt86SpOvdvVzHzx0du7o4Wp0blVpKuNFjsOlg9hDpi4t CA3Ie724ouUis80hSlDz Ee8iXhsOhcE/OVy/178rt28xQtikthiZz1NlrmYC3pv126ShHtvCSQ/R2JuDUGmjtc4oq1mgfPSA/62f dkGl2vX37zZy/0NRtbAw axFFffL407sUWsTY4rSJtvtc3G8M7QUIV8xQs1Sp1sT6Tf6fwI187pTx6jFRSCsrm9rMRnBhmJmeM+UW yzsEf1cXZm41lvj+gxZ8 wwW5q7zYifaU9s1BUPBJINu/nZepMXBLxWLk4q8d0wzvXaOm6yxDMHre6W+8e5Lj4IYLA6Bppihi4Xja Ptb6KtlBWOZ+24R3IFXm UWeXfcfVZNxRzsRUwvG5HlRr2vhFWY6bgVdPYZZDbGisW+ElExdu0lJywkTciqcl+1JyvjIKHb6Zlzj+ DkQ9HxSg0yWpPQO/wsEZ FlvL4li7YY7ecjVcX5EHV6pDuNf4Y//UUF7hgPBGswfszjazPwkb2NvFnvKVMXbNQKniNiWcFZFBSu1K oFvmTma48I3wA2WZvXYd 0uXbd+5nkRzHlS9oUjbcpCjD5pEhWZC2PiSQuLzZoAGc9TFb2Fw5oqqiujOIWkGW8Ae6XQmDFeAKqf6X 0WRX01Azm7+J8aFjFN2H j7oH/zsfNLFE4xn345lNEe4kXoDaBrxAUAPTcDN2Bz5Yy7+VfS0BqdAv4KBaFEe42g2G6no0ur43f5JT v4964FZAbsdq0PI3snZc l+Kv5f1UgZ85hO+V5ArZGfELNI2YhxbiuFyavOcK+7GZGgfuIaZCQQern6+Wkl8TSCCTMv3ByA02y/3B M85zAqBPicZhmB56GFQq yJq3koaajDRQWbUdb3A1rYGk24Tb0XWXmAsBwL3XUCheT3gqCaT6Itq2XEfHosjkN1v8rWuV+stx6Tqk vK36fqEOhrFt0nzMAvtd BI7+3pd+6vMyOjpg65WDJtfnuDHTb6KhVaRQ5gEZDEyb33kaAQxRk4VJMKXlZPWN/Gnxf3EBoxOGiWcZ ty7fe/EsYBGsnl3sp8Er 1YwzP6XBPnibPW/0OZCxtWPCw88wAVyYwW7bFnos+HeuXCImW3zdJG17tyW6+xa7LYsmeZemKtATfG3j 5mWcdYXzt1zx/b0QN+Nz mMZQiyR/ITqZaOu8OPbmvkRqTVaWmjE9A6rkc01ejGVxj8NvhiRtal0ZeLDivf2U2YCPf3Ft468N/9Kj NG4f+8+ijATYY7vXQkDK djR040UazJO92hqydOfjJQDcDuRZwq2o8pHPiMTC/sy93LMpnhUm33a6g7qpPKpaNsxQCTaIsBc4qKzB IeEYhEiaLEILZyvCLvuv WoUktsaSxTLeHGJusgHioJAiiCdl9esFhtg0Nuywt6dI53whLwp7qLK8uGweRwHHh9g7CoQK3KCMrShE sJJPs3rmInObOG2Ux1Em SEAi5B9sqZ5q4tffJxo7z/3Elw6VfNy9RkQPXNSidJJRK5i+fPbVWqczwcNjvxFNmQngB4Kwxe9yTJzL nzeIKkRTYZkAWYCu7RRm NgD616xOVKrP0XdE1pgMW3GfAQ+NHVYcL9bYrcamsbPZuHlPeaGAAEkp8jidZiLVKkCibEmcv7pIRUYY 7F0Vh13T5CH/yz6q/E2a YrtbUS5NqgdAwnK3cH5zJrYboFL10g4/5I6w8C5wgYWZXOotE6H5dI+HqVGVMGpLLWbTQLmHJxnp6ABC tjV09UMYva85yRRhNasI uQJAUiAxsV1bl0tnlsB8D8sdhnkVRWDZYKGsjZ6Hn8XUoRTBK2CILHXRCukDC3NcVvAstH7OLu9W7ok5 kAikxyJIAf9RFBAsXzON VFOc8Wz4Usd3YjWbisXrSWokfQiqi8sKPuzPnvh9u0hKhxYSDco9Du6ZdLBMK669LvPQ14BWgdBqt6Mv jcJczNS+fPyLONZcpWK+ zlmktLSNRmAZ1BvBHRTGjYvsGcfedBN44SYG0G4213VZ1p0FJ/j62++unhADx7yFMdkedIueciBbTZWD ClWdjYCC6s60Ygqvf8eO bkXVIynh2UdePt9J13TLuSQPoIPPzehb7SXjGpSDIDfG8kenajiwcKD00sjX8aXKW5zajTcVXzdxaJ2H /RUJfHkjQQw1BbNCl1Ov 3HFp55bEo65GiJwaxAN+ed+Q2mE18k2x/A87IE8hU7Fc8HYZV/PkTuWcas/Itv5a13N058fOW+izx4jh GJvEw0lbkglpEPEPdzrr GRxQg4bPC7hAmWnHaxoC7o54wt4qwvESeMnDjaUClcW1WaeWZNj+QKuVjxYafTRIPaYo7ZN2U7sc33OB QtfSgqT41JNCZmQpSxET O9CqOgNUF69h92RNPEfwoN02Ts1k7ha5N5ZWMMwdCVJ/msG4OrrN0tGEAFvlteqDqXAnba0NWJ6OVNyL bNa5wIyEZ08a+Pp+ROkV O6vpXCYzuXJh4DgCJ3nTAT/BA6HOf7Cz3ZNyzz2XKmHMvFlCYEt5yqctR/0ggkTr5IoGZIRmmag1q9ys 09zkNrwCButTVp997OV0 +Vc8QXJboqlBGNo+ksRXQg5Z1ME1+7h9jCp5QICvS8QLGP6jBKv8hIBz26wRd/JjHP6UPYodVTASYGz0 ubBTiz1UkbsABDLNM1Wd Bernabe/Zq1rdl/JIFQbPRjtVpPUJZmr7//1kQPXj3TYpAe0j85V3ZbVi4e3ztNrvXJCvhd/jp55WX5nddai J8XmRVMAn7GY905qqBfx 97OfQiaG7V0lJG+H0potXlNCXK/MzHzfsmhzrvzRo4BEkTlhIQkMuMshZ12s4mXpEyxh1OIhfXnbOrgo 1Dnj2Ff/1IiD6vINUDUH UASCNA/VPhVBvJJw9CBrM0kbE6QHbqogoScdwpDKxUVKiRuOFF0+Ytb8Ga90o82G54RrT1IiRu+cm7Kv QshIy3yqq3fI2w9vSTV4 drQXFvbs919f+C5xdZeQ7l/Gmxwp9lFtIgcbk1xRBo0bUhBJB7nVWTQTBUVAaS2f4AfHCXta6MCt7fbZ pLLP8GOoXfvWewcCR62X m12YsQF1h9MuiQpDp/1O2i1xpLpiYm5r9qaMXXdG443pGv6YeOj89dSzxcjxJvP30oZz4m/oYhEonbtg 5Rl3c1nj2t2RaIhGiqhH SAgF7jqEW7Ae89UYreSEmHb4LF855L6g/WC6DIrZ8xnewzE9Ld/113FYSmDNb6Elcm6aI8H4lNYDle0g p3/O1cCZBggsDYUssZ9n qrhJfzSbbXs9Ded6gl1xvkzyIotyVyAH8xFNNGWrvF8gCePprlk422q26wdIOX5/suRhzHUHZ8FNrKQW MRye7DmtfBg7B8MEhekj 8r18+DTLE629cNkdFgDWVNtKmGyrVZpKYr2ivI9209PJOxdX0qf9sAk2J9gd1NbnSFeT9LZTKmYyWxzc RnppEisTktiMlJGjxu/8 8/dPr6+HV36wJONN5707lutoBqBunQ05+ab8PcqYKueTogap5jstzAi2YI4B2EmzZJTHD1du1HwfJXZc N+k6OqootaTmyTJ0023X Sj3rFOF9pCvx7WGnumzc5IkQIh37HVwdWXhwV84hPk34aGb5ipZSEjQA3COCFYlgrpOnAez/njypZOMR k3L5N+Nn/W56ATvidccd HKrbSFDi4Vl0WiivguMAYWkIP18/AHX6QUG1uEVAdFHk4qGWZL04Wqy0L287YFrn3p3qJ4qcKPqWkDiI Ne8ay+tWvVhEwwRksjlb 7BaSfipcFhoA9b1ms88Vhi3xovjT5f6uITdeyOBV7UUcyP54YikMxqBRiAJoG6yx3vKqDo3QYRlhnO0o DYDcPHGlYRoQvJP9Ywp9 O32z0cunoqCvfzuuZhb8Hrai1Fh9vtAMQgEXpiQSi9aCoBVZOFi2i6ysg0LVOs+CPwjzitpB1YqOMBfZ 0RbAFO1phJD45sN+z7pd cKKpboh3+ATbKOsLwSmmtuqY79qI6g/iOlbjhn9QWzZ7oGk4PJ0d5B77ubprRJmR18ZI0/CWsCUBrDCw kBiQgJBkpxYqtFpxBWr+ 9LLtRc6WFiz3fozhLmSwkCIffD6LtRKNdEeH9tFz3vOJ49pS7Y18/sxjr//NLXTklTdiytAXpgoo1aAN ORcU7YsizXJkfTj+O7Fc 2dmBGR0jXg+0/N9mfyzUD8xBkAsxPivbHY+SM6YEXXVjxXuLvnGsgxyVMMLb8YTtU4jWmXWNWJu7Ns0w N5pZyPsKKPZKJlmRTVGv lICLhZue7P3HVJTTUyVr+ip53xpMhgUSaebVemy2uWRAgM6/OgYhUmt8xUAahU1wwNIo5C5Ja1UlMJ98 w6EEFGDfQOJDDZm1vsn4 QTHcazRaDQaGIM+8ivFlwQEMEis8Vg8iRyk20nKqDDFKgWIJDOKR4Vdkw3bPDwm2AG4BvXvwnGxGaBAe D8fJKIBIApJVd8UgnMRv kvXACoI7dfZBrKLP7RE10qz5besOEIGpIme7Kf8Hli+yvePjx1Z5YK/DhSweatf6X0yMVSOWeH5IzJe9 t52/mYdlHxQC0WXsQlPW wPDUyNzFVKnLMpgNheXntlhLaILiZa8ThCegJKU7Fvxh4dpIIj1k4DGj3XU+WsJAYkwNxEWBAs8C+0hj zPONscnfbRdoAMrCa7JR QAMPMGXSPpfwPunddC6cqfeZXHX0MHWYdVLggWFbImkbbb9UosEhmExwsksXAzIlaBqYB7n9663j0kss JxzAqrrMhUkywBBACAAA hstbKEBDOwgpGBdNGInIrf8W+xwVGbRbh8GnrYoOT00A/cgnYaoXkfFckijfpc1/IPOdNyuWvsUQ34mZ hrfsV80+HCmuX9EPzImR z8cTL43S1fptdbVieRlIsVebk97H/jNATxnXiI2mHBAa9gJFaQpSRK/Bu3voqa8ku0ghDUfv4xMZlinM XTHsHOBZxaGuPVb7IEk3 YYwia4RGekWD2XuBQLmC9q6KXq0YBc4esq8TmI4DQxlOPRcFkS0qGOnth8rzacu9Kyq8rwJZGnnB+tHC ATGpxHqHAWIpcCyYNHGA ZWHCFkbN0newpBaGRzDwMZvmSnZAYNpYWlivIa8P0cWzqEXgyZ5miahiiQDobfv83cMf7nYhLEOVUJfe IX5F5zJDvpdrXDTLupz9 OyKEVyWTekMukez8o0GZVL6REw8d2yKk4SbZrC22aiB/WbRJycCQCC9wTIA6rpe1AyCdn9JZmBAoZzUV AAGPVGjrsTGjrkdqmscD SiwkiHvAS2FiYdFT3kWX0fLsTAhpC1rwr6s32wA6+/SosAq+tAet8wWA14W/tFwYTiOwwNv6E6PgaQy0 SZakiY4/XtaEgEAcAIhH F7ekURVBJX6AoX/S31g/e8qmMRGmWpZnw6u4Rai2Dg6jqEAhVmGEJiOjjQh9yQQQ2bmnYHNRF04EQNJN thUN6OMjSGoyue6/Rw7Z 7e8g3+oOxxB0nzeEp39jiB5vKqTl2A9y4zGWNMyvjh6hELmw81+FaPXAfu++TuPJIIxEJqWs2F61SvB+ bSGpx49YDZ+7xL0nYyCr +U9e/VEAqEg+rI308i7y1lZRjZlqn1qZpJsGSN/Y0pqDp8hmVJu09HXoUSra4KKevYkMfcIlAJvSIJz3 UzohrUrSY7tyxRP8bpAH rdd4wd4sBFsXa17ZJPR4mhDgRU+UaC09vqxu8Qn0LB4Tlr/3xJn7evBvJxNSUgr7jyXVZQwCG/Vh8EtL EuQjUBlnx5oJqAgnivp2 hYrQJRJLW8PSqx0MkQJdXo05xf5m4y42HRSKrhgZymRUFkZwVvT6ri80+spm53RlyQ4jJCPLzywykgDA uIcT/9pe/vazd7bjO27k 76pBZhwBFIQZRjYMzJj2jrDMIHaGtoPQZum+9KlebrWbZuaJol97oSGA7Z0YMlMKFGvb5Nh/jzw7tZSA TQNVRPsFbCGH54nJK15+ WS85ssWybwd5H2bPFbkxsPyzM6uJfiia1iNsq2sKscLcW6+43Rsu+dQ18GGuedafqg5Zrh7/g1uHjsXP efUNuIRz60PMnOwr+Z+m W99BYhUVUSPBo3GXG7TVlRk+10VBhmRiu8IeKMCDPFSYDj5PQYHSrtaRsHH4mTITJHHXuG//rCot11yM IvPbcm8YC/OoLMZigw7T Q9gLP3dB+b0wZXryf6LInvlgcsOPuMNzWSyb1UeburejGBT8QR9qT/uCxPikFCkqRykbBKsqtkQyWxAr yES1VTLYDOEAGpgRfb4/ Tx7SKequ8C9jqYEFzXLhbGir2W/y0me9jv7ar1OCmWnITgnFPL3hw1XbvESReLXjvk8hUoVu/FSyBgAr LAwFkQ/frz0l1+uh18Hj sHEOkGAVTzmnwZBtriLYTHbGvRVsQApWg7FIEs8WimxjrOTUQRMvd7WSgIAePJSUEPLRcRGjGF1Rrwxr jwbbdTdFYFfQlzVJ7aG1 s4T5CNDcOa6gIOQAsWOfPAGLDvA+Ha8Swkwc25cT2/2ywV2B6FQF1YRxUxATkq/NmFxJYZkdzIvET6qE TPHaSZ4l5ooyKgKkx75k sqaUcxX8hwjjGYvKKMJgljIzSUL3AYKvFiQ3XVk1zt7zzSziriFvSho2TUxngcKDYQGbciyWMhBj1lvn an55ljU2Ft0+tPFlBqww cXQfXRdKJ3Xp1vG8Kw4GRcd7Rv7EQz4EOfFwsIma77M2dQmOIcDAS0a0zYC6KwfnZwAPAAzU+fJI26M/ mHixMmTEEJZWVnZCkVOT z0UTUAsjKQgwMB9oHfWZlGbyBYmaFvwh/++/FeDt3/y9/MYF0/QaYqIQAsAIdfdq+qVEsBj2MA61v7Db xEdfOHg3vRwEDdTltIyN 2EMEN45Pn/ltp6dzw6zTMg3sNAAJLyYVXWxW0Hlq7dem4tglKb1Abgc2eJs6HdEBvIceZZ4mBTL5sJCH yJu3+QI0etUSKLadtJuK RSVpBgcAbuSHZQFfeRhVKA4fV8nGtm6wqi9m3g+Cgo79EBhU7RTscDG3r+GpzvdV4tfqiXcqFYtdGPBN 6+rrRRodHTjJFLCYKCVC kWpZ5Vm37F6RIAIml4+c9byxjRJhWLtYbk6mfEG6w+i1+t/PzU9wp3/WSFEKHzVXNlQNAuZGTrHuv6EA IimkUDQqHHjeQsW+vrhL 3KkKl9gvEC/AIdh1Nj6+5otlMVICp72tpHMFPxWXuwKLWorAJ/ckDvLs58L/C4bdgE6f8z1/jEa9Tjbe x1K4ocYDXLkF069zj6oY VQLTwPE/ZEmpNGAADbHmPvKjQOOFGawOHVSRaHDJVeZmnZJQLCZfgl9JFXIkZEMHZpvAPKCMeWDLRwHs dLVGGDSkxo5VUQUjKECJ SkqKHWIGkVGWRaEgeVLIYNWonc30C6/Y/3tLXcb6+jPIfSJnNazQugJU4Om14WnZ1hqwwQfk0DmRWzCv 3Db8cg09fa2+/lAN2MDw WlrGXAkaO4DPZRG9CZ9mMxINvwrxRXNKNUtm4bT+c/u0C58bhsi1zt5V8iRprhbIR9ONXGVal4OfSp3k j4kIVu7IeRim200nyBDd qt6nVkjHx1wuaz4zdwrqYoi4xFhx3zA1+pHXw09qUKs1sFgsNnsvOg8wHkUXHX9w4z2xYr67XFMTr+vz b159d2Gx2pLKEHrQiSV7 udoJa0z9ja9p2Ee1MyJE636dya1P52NOCq4FDWlx7cyLNCPvo7KJiZbGj47rifHKFDnGwQOw3BmvLdnH XnI7JwkqMtd+jslxvyHS BuJyCo87bGSaiHg1fIff5oEMLzLUaJaxVxkebWdEp5PuUhDD58kx5EciV/iIixbDNxK7C4znFBFy2a5N LlSvVLKqsFs0ECrOw4GK S0bbbTiVvKM0+3o82ee5+AXustFXLyp1SnwgekyBuDZWT7eDa885UoXHxJ4+PV+dsnvh3rehhsKZsFFi 5GH3lRVxg2a1yRX9a617 KPOW0QFJ/V6/ZGDh/zK+hcg8z6oaj8wVIs/s7tEiPOMb2eblVSJ9G++6dS5c+Hyo7/8qbFJPqZWtv1+e wOQ9EbQU8kwGNWIxXLS4 WgsX96/Q6eO/E9aBaTClemCc6FcwcVeOchtJahZx1BI3MHffJQfybVgiKlaTWwSqUpCWn+PHVOcWFOmT eO/aJ+bm/vj+AnmbXnMf 1PD3ZKpZf6zp/4fbrmo2h01jLqu02M69HJJ61ZH6AqbNf8kfCV/Ln/z+g2/3X/pFQnBWcnA1l6uxY1p3 9txcXG/r/ctH2CJ15/Salguero 7a5Fi07RnCH7kmQs8F3TnNfd1sn0UAItPUUtHr/e/SjRdIe1mv7Vf0tNp9hSuCljTtDCcU5ePWEsEHOB AMXhVngf9iqGq41bJ9yJ on0iMrACMm9vqJF5rMGyXLKz1c9/JhHCGTAC93m4eArzSgyUyBTg5c5P+OrYraNpYf1weTLo0CLEv3ob HSy+gPDuXXHvQpJWM3i5 ceoqhJlk9NrT8Yr9iScaUnoa8gvNnDFFwPKOL8QHoTBl1le2nXCHCXHyJTi85JOJeNUSB2+gEo43Ov3J YVpGEm9dad1iEiyVchxU z6+DIneO5EKKP933gVNV6FuVnbcLnR9kTtJxl678+9z1yCQzniQmt7b/sqS423ZXxuBClsS3Oa7KLjnR 3LLJC1jc8TfNAnlznp1m S4Jdzer7INX59FEc854dHMVtr6NxnuWvtl+6J4cOv7Ba9/f/hD57jDTCbp8yNmWXYdOpjy93JFFouRrj UbTtGkzqcxSIXIcd/5ci Xxefrr6ALChpek+dm7091GhNC+NWhMeHvbg/k9rWliPrKEUw2r0py8o+Hzqq5NjOWD5nrzNTFdjZiVvx RqtJGuSqIKF8wqRGlXgh wpMgjWNHc2l8nxAtePEpms5bhXKgnp4zrvCSI9iIScZ1Od9Zr5zJrd1i/zjCippLT5ZeOSb5+fbrHnz8 xHfdLB2IKEOQXqyXSNhC I1NnyJTsVPpTOCo52CQtPAuO9cfbEQJi/h1wrHXKy9FIwr5uwIUl1umpMEWxAfbeMDZXhTh6qv1a4cji Ra5VtFv0cRa3ovh3eirA D+xr4ONGJSmFVBPAIhy8us9YsJtmd5GHm5UwRLmura/xWNj8EgU7jVv2ya+lo3GXm80P6TtPBEbqIV67 3irlsYC3j1a+j1s5ZFdt kdBE8qdJaSzCVqfn1K/eatJt004/9eYNI1pon6aO0dbASDLZO6q+6oPVKwWxJDBLXvCd9mqVyug0+PrO 4OmJNGLn7V/3cXOdUy4s bLeBVwfk66syr28jJczvMeKbTsAfzuNdojNd30lCXIt73yRQ/7Ytr1v/359+n7RWKbypJIJB2fGmPPAK sHlD4Uze8wSfmv1+4aDB z7Ng5CjQ2iNGOrF6IBRBwPp7aNEfJmKvdwucbt7rXRDvMuNrUG+/D2nicos5jAN1IEvIPlLee52NolMA iJWlc20d0omWEIcMe/eu RSoxYfcsoZdbmuMcxsyovN4w7ll8DAdd31/sVhcUFE/hPZKFmkFXw06RvUB8y2+lZ3uoJN2K6vLtDDDU Ri3hQLvZwzsLfTTNOTFf yWv4ryZmDMK6EIp5+p1a/PLSMxk8Ss1pg9+WfAULq1vwHn/2cj7Ts1kAxvbrHDYiwoFPxzQwddQ1Ub6y m3WP3gpGgucPy82QUerL FZoDCWc3lqWR0RKpkEe2zhFwp0vT04MPumCkMRJ1zPa7q2vAOo9oMZFsaDtKN3pMzd/f/ykWR04VnERo r62DXeu7dQU7ps04+aNm +qj7Xg97dOyNItmLOn/Og0wlQfbZ42n1QWx2WAiixhsCzW2oj2+KHRcpAnKYN9cHGf57alj5OAgpOrr7 I26m79weuf1i43MJIhZX zwf6ZWb28ghEb7bchn7T/XNN/C+D5fUk963r2onlUccC8rPu4RFyA0CYsUIRa33v2NZ9iA7lw5i+/v6+ es5Le2CFOIqYa1tNh6Gy bqWep71ujOuzuoUK+rp74mq5URxOxm9XMEbcKnHnNRnHeeny3k64KcXl9Gpsgq0P9/Ukr8CESkYW75yt htU+1IIV3Vtafe1Dk9c9 EiHaMBO02FNd6uHKoY9jDmxY18Czt5gC8yeP/f4+/pt37rN/OCjhw/0du845u1nJBFC3PYs5Ocn6/j7+ u3Y/kf+0N07d/r7+jVt2 JuHvSq8Y4GcHkyDv//y5Uvzg+VWsUI14BkGSZWrQqduavams+8r859bzGy3qmua5kV4NYhXcI/b1nSHT Z407CGM9Fzpazr0iAPEZ mDKJucm4mLpH4F97nkPnSv92pHj82cQzAHrr/utv6/f/0i8Ga09pqMXHI5qkF01UeI2ijGdu9uPZJAqQ /FyNVwgp9Z7a/Zsf1+/7 x86nWy5fbAMtZSw1Hez0/FNeUpaLgLaGDIsXVMqXpu1kF/Wm9n7HEwYcOJ70RfYoYiUm3tdwu/vvsLT2 fvvrnpVXpSQtNp68zN4r TN++snf12/YLn1UGJ+2dStf+R488sDz6IYsyagH97+TiGa75l+jGhjPBqw33pKmtnKprboI8Fb6frRUR Exd8oe6rgKHRO8dw18sJ rC8zXe5rqTB1Xq24PKqkQUqbbYgPsLI62JD3jorkFcHnXuTMUEW3pkeJ/i2kgU+So9c4z7AsGcVjcX5S lgUHlCCXl7x3++v02otj sKPe3BzKiJa02t568YCOIXh39LP2HME8ytdbi9QGsbDiTlU042OH9aU0PtR/QcO/En059AAqnTPK/Hww FKZWRXk9hJTt5Xwb2mu9 KjeVZsowtDCGFGVCqqckIrNOV8Wk6OCG7xaK/4H9x+wKvMRpKamxr+JN+36+SYzMLqb3z4df9Fq+S8Hj 6kpU19uBV7Pf1kWtxPaI gnDe95mSryg0jhlfHz2mzPVa0kDyqi9/joac53si20sz/fpFLjoTtmQ4kV9pOvCvj10kHSwDLA6IhFyh 1ZMvZf84jijns3AImMjO zjfcejbbOsUURTG1mkkBHNQhQf/CBeOdETHFBob9nYwWWl1v4xqFZ5/stYZIo9qb6nd8M6dCv3WF3/Pu EYcP75vrnKUUn3DLxqo3 fwCc+fN9/X0cs1HORnmKM6kn/Ge7q58EdbOIc24TKbD6Ho5bdL+Ih8z+blbj+8iylg05BEL/x1w6Aakg 23bu/mxTEeZsQZD9q1Lp Cr4s+Z5SmXf/v2+titGSG5iIlqq/lg9WwLs6ZiHbwdJ6Ff5E9oX5vq9+yUGdSkC7M6AyOjcokQtM1qFo gfUScEKDlYhiGNd3abSA twm3yo2qtrGNrgPAWklmbTfS63gro3cLHuXUWjpdLBqLQdPbGKw1Iww394IyfPg6093m0rBd8ZDNn2rE WpreKQy22pawHy5C9kD1 w+DBNQMrFe/vtUsbt+85rXPjkjTHythEWNlPUTMPqHiCO2kcxnxCE4+SMRhPtHZw64sjppwOKLUNSvGy oF4RafGtdJrQnqznpS94 uxhI2h5/5mIudKehKzIp2+PBd4+Nj3jl36QC7y3nrwOJHMCCPNQ8UGFJ7YNOM7+xZHKahv8f2/8PHOWV QGSJIUiEQCIxWKhUFhQO vlZOG9+UPIjYpFAv57jUDTL68sPTgcZjJz/z37x/EV+wKiEzZ9uxcDI+k2aVEqj7NnxNC066wnWte3pL pIkJ0+lncp28zcaKBY89 73ilQGByjYAU4ylA5YeJO6vIVObdFV41yX227Q8t1+/evWqX//+T2FlITis3i9vqAbmBvqMe1dIlrpS5 /fN8mW/kl1CgBVnMLJX8 SRl/OLJ3tqNkvg/LqAaDAPiFY5gwbHFdGUNzA8oeRiIlJUZ/ahwAf5yvKy2GWC8dKvC/66eUFvrFCJG1 pYXNRI0b4/SftHK5li0Z N9+flJUcIcO+B8KTrIvWYp9jSQr9ebJN/eyBe7oH75m6uPgQzxuRvimYxm4/Z/PrZBpD2Cy17SI1t8mN Wm15sYBsjpcmuWhEAC+0 FTBR8HQWClmh3M2Jp+NUyhn2Baj0UraJKFhCo/9/sjXwWnQEAjtE2Z3A5GWh7r6xILzrbIxtwuxZ1iKb OnfELu4m0kprd4UOEHvj Xpbi/CWBxLq4rvJOwYpFyif2+IG32GnDpY+0Y62c1iNIJMehSBlZroHYig7O39V4Qg507pacx+6Z/du3 ghT2W2oVecZf63Lpobv6 6Pu2RwYpmBYLB+/vkZ92Pfn9OvC196QNYbeoxOqb7m465/hT/BV4gVx8+rVr//VepSTLv2zOILtYff0e B2SuLsaBBIJiJlNgx49w z5xjUdFYk1w3XX3xKU7+rd1/AsMbdZtU093nQPpLgzss34PEHLawgQNNlrgFBfqSqpEBEkME/a24Bnpv Iuf14rFNmqFruGp2NVFW /lt/cZOCHBrLWR8Pr9/zr4b+PunyMzMTExIrN+ynT2XT12ic/bm4XZ3Ak+TwbPgQUVOM6Lf/mpRCgQCq tD7J0+F94j4x49i+Ob1m 0k//GENZ9sGXzkp6hmX2t48I//mDQD4+vn6+CR4UUNxiby30w/PGRkZ/OlCJTHC6h7o+WlZYaa7tOU/w sEDb++hxoCEWBQSwXk8R q+HhzTcLZnHLI6VV1bL0Lg0WiCOVyOAz3I1arb5OfHp0Oejc7bdyHNk8n7mYx3axsscIGa2JejSRjbm3 QiowffIAODB/ajVFm4st 7DAGj6jhHC3zHiPLbhC/f7gH+2EPDlTnXwGJRHK3xwbQ4JV6pDRkHlSZs7io7no5g/lC4h4QYFR1P5kt ZdAtW22kclN2Uv/bldAh jNQWNIbCIdBt0O6sov3n8OsB5kpsM8trtbhdS7W8HG37IeTHUvGXswv/Pj4+dD65RiX9Dn7j5B/z7kzZ cEDOnxDAFpuSQLr0kbYD TYBPgRnZxfzVpUyV/wqGrOknkfzQn3AWy7MVAGZLQeCJgngGy3JshQ+/XUwfbnrWaMTj8kj2OmvkguAa Um5VNSa19E2DcMdumf3+ czi2k587QWTQ2Hvxc6weU5KMKg3O51mb5DzeveqriNDgZdYn3+/CaEnCHozjyl2CmYPZ6RoIs/erXt3A EeRdRDcA6u5uga4nT9iu QIrqX5gvT/LqFC1YlSdq4yEoSb53Mde8wGljsSXTxOQOYMadO+KPfMvNsW23uYCT8NF00xnF5paDOYXr 0Zpt96nHJ0YeCPF4YqZP ndq3+GHceMNRoPVDoWJ+w4ojHf0aFTOw/Jc3Fzta8fb4XY4li74gnXD7jo2rloLjb7qToEkfF6fUfVmW d9u/9eBEK64dz7hl5qeT fo6ilc39GTihc5+kdH0QJn2YIjFgD1iFjlXGSWfF1aLtGgwJ22FOZDrHe5nU77zCQqchxISGinNaNZGu LsaFGdHj44JeipAchwcR 6He50AHKJcXWb26H8fsM16kUqbV4XBPWOZN92fmYHrQeFxTbCeVosFGKGugaUZo/Ksdfn62IEseh5Yp7 KDhGiNy8pVskTjQpY7uC uvrli18/r22AT4JIVfPI+M4bv/brPXCWbmYAxAPbj7pq4vTEQOEtAdVL3B0DYx6/9dn+MiRABD/5s3EC RM+qGNSoWLFPn3/9/3YM u3aT4lPqmNcQs+Dkc5ZgRdbNgg9k3btljgzlL2te2f+e2LTdsTkb6aSDXubixPcF7NiLoFA5e6dDTJb1 VhXrFiDVCh53JnhhjLtI FwgEJib+L624LYtIbtlw9ll7g0/+vNZjg1Hw66er78lFDn1x5ayZJPZ/1cg+GArG9+fW9EyRHA/ruM/d EERAtNbnCjqLnqvJPBeA QJti94rcnO0o+vFq86CrcSu0REo9mOwsUHiSp2dEHoGmsQM/hHPWfWG6Jcpl4hPt76fRnG5JLpm1OdPr o472MV0LaErThfe6vr54 LfO85JrMljEKc4qPMH93IeD4m9WJJhnLgFGeiHloc90owQgucucOEcqTO3ES+ez8XC5B/aingBhD83wX eetq/0aHNgGXG4dRGa5v zu+42ORtND2OmWq3rqisT8JlMexASXgy1em/NrG2PoOYJyBT0kqjBSNkp1eSyHpLI2ci/L4ib+ffi8zz 96nT5/mZH9Av/0K07jjO nPPi4ykJkNBFWNKmCtTPl0iX1qWoPBUhUVWBdb2FDc9fRXkafmNqPcu/Sn6RD5qYyCdqT2NmOrfllBWl RvyvhXnJcbcTdbJ1MigP gEqXNDRwr3jfrrltg+naUPGhTRnMnYfDJFlv35/nwcFiqEKO25lyApohdGMb/+yaNGzZ8/bTn8tAghsT v23secmpBLYppNv+Ftru rgi4m7Hp/v27F26+JfuPXuYDzN/BB/6CvV4hy393888ga88umrhmq/wNgAP1GsRx9Kvhyfz6GKcJvLN3 Tt3/vfdD2THGZCAZxTId giHXFrJXWxcoqLBkE6gnd9am3+URLS7M9n/7PIv2bHx9Y1LaldNkPwzSaro7mxatNCgdf2T+xfkffYRK EMKwEgHITe38lAw6+3t7 l7wSyhMZ8jPfttaQ75qIkBJMnNSprVIbAvupv/Oyc6+uqWz2eTtiu301xQqUriqTEJxYk3aPsa0YFJpL hSIjd4YKMkENkSH84jnA TuvwL8LlOwlfrv1jckzKx41wIbmKg95SpJglEioxidkximlhakqVCUClKXrRNnwWbFOCLuofdXcVN8nb 94eeeFd20TWcbZC2tTgz Atk32NKtt1lyjHm32tm1/Cji6jqc0vwiWm7ZCVjOPev/WiU1XGeJD4L1y8s7k625KSMNDgx9+fPBw8Z+ zPC05b3anZmNI3PxzDFQ CUI6AX0LMKYzmlYBDF1RFV78drtv8hj+9x4zpE1XW79v3shFoKYi7qSAcU0a4UeDgrUvp65d5/lJoqmp n1uey5iLVayvXwoELGO7 9NfLplii2Ja6TX+nZ7fI7lX/2yXxwKnmUSBgxR3YewAMNbX1g+3Xz/e+pP7YnbNcOf/X4jbrw0u2Yjob 2wR198gzEybkVNMmuSm5 PkBMEA72Psx/1Ub/e452Il7Y7QJbYx4o+VWQAmqnqA89cmmCSUoZRYOqyie09681BsQ1qD+db747kVCr Bbt5VqZpkB9jYpg/+2F7 tSlS+EYIKSzVRz56Etn4by6g5axvR+nj1qRgvuOpnvyHd0SavcRpnBX9Ko98xK1zIHj2x397vw4/G5gz Zp9+/TxznJ86Y8pchS+2 BywwBx2GMUG0Cp/iILLq1xopz2lghWESPWjPyK0MoPjNWMk0smh2o40p6u/AkBiYuLkH3/H7IMV7exQr Ui7O6VzXKOd0iKRKReXc kk//Yez4Pouu2vHcY1m78/t7wzHWMFz5c684FKmuSbvWF4+gMN2kCXGZ5h0CVEBKKOzMOe7EE7ME1942 zvWo9Sk+NPrYIOm6Ix+d /LobbLNnZisVogkvk3P5z3S6+/b+/aj0znj38vyrscZLOwC+wnnDoXD8Ke7crLlT5Fzrgp+sbXQ2hmJa Xmstfbg/IUL+Tnwf+7ev XXzZonESg/F18+AzfPys5gFL6LhoGIxTilzJVAmFIldOO6/yhaXjazVLZZz2VSkn1DXpHjB0FGsVHZEK oaA38Yq+KpHX5Un36hnS jheMGHR1Fjqy10NOIIC/6Tfp8pBpv1cPXEd8P13vtIXkkus+YfBjxzp9cGZk7UYmcx7OhRefPpX15/gg KyNTGKiIdf9biLU4DcC2 bQFWTq+YvTaK8tkTQXYuNolnCCE1flYascPq5AupjZmoqJTFoSJIMxueO/SzWq6GfM5Bq+cPmPRArexs M09v70h6enXj9oF3hdg2 Gzy6uVwv+NDxoBuSh3pLbxgjzFXjdI0nGSW9ZTxA6bSIYc9icZx0PiPlfILLFwjs9QYuJgQtHJzCJlsR rGr5Oqb9saW6xRwzEK9g 2CP035X8MS6tjSQxw3/AICnp+fgfqtZ20ZMmJdZ/fhCWUSh4hl3a/c4J555yhTT+1KtwRq7N/8FrKwF4 nlhACWxNWBsdaBjmjt2h 03pYyKYle480oYHw8EZ9uvTkwSEva1ORBHeKspt/B3sYrjT3wxUymTGwd/fLtN78zXA6G0mqyKyThesN ZpMw2Du4SUoUyGG7MbEh I92Hg212e9u825e8H7m8eCxF7QuH3B5vebrEtbhdDZuyIEDpPY19AdgWmxf3z18M7q8LEOqEz7CWCtG2 loig3C5ncm9YTYD327lj 4SzHzJoUNsRxVWtNOCtGkEo2w2ynxDQRcFVUr2IWOQucz3Ame/mhJp5QRGiRkq+fetW/ku2Xmhd9ETW1 f6h8dgSJvTXYz9UMrklN tzMwdSQKfvewozRWwIs3k3sldoxsRxvLZx0ROs/hX1gO3d+SC6UoxnCxjFEkbU9WnkZ1xGkXMLyIo70G luZmM4jni4ixrsDIu4EB VoXmy36cYtMEhrxkk345/vhIUJRo5hWOmrm91PuVvHhLllw7yDwfoGQDd0a2r38YHIdlJrRUOhZr98M9 AEr0yBoly6vab8EpW24X q9d6+olya+IVv25vrfTbg0ry4T4aREcnEtFUbwDjRV0y/rfgOZFy68SmKw09uN2v2S8+fXIi5bxnv9veah BV+WU9bd3ma2KqGmK9Nt h1dEq456Jtm0osylDsdkf489slogf2jw+gtSExM/B2f14dG04CJe/gR8/sXTSHubzKPpScn8HpvS7vpo /CoUWvWrlkjFosDAgNMf kzU5P9wWWMrPqSLaXqbX13vxSZcsb5qkOTm1Vh5Tj12lb/83pKDQ45PaLQKCTnN77nn/209y6MTMh3ty 8oqe1oeeMDk/uVLl5k+X HBOiDUh09+ZOWVPtt98S4BWFaF6JAao1+1pYHxmlHa0ZLNkvvvQYaTZ5Lr2Jr9re7i60MAa7/9ISUlRK iOXf3aoZuOZfOVWMU5qD svq7NPRGQb3cDJC3/Rrf7KqBl5QbFk2L/v5s+u3GZz4X+m7M5zCoMk4z6nNXoPZsMllbY5/f/w29oGMi 0sd7pkR7uSXuxgMHGNzL zQoNkBWmhbL7669d+6cOVqNtk/gjwOv7I5l6RwzqXmfMTI+MLEqdyuVnrvKvkqly9VjFZRZ2veLjZgFY P05GQ9K+ufQFqdyJf6Ve z7+TbxAKKBIUqVSRT9+eJJpfaPOup3NaGIpOUsb4p3v/OiezQEWj0dpgy+7ju/DQSUsK80IfTKBBQyX3 o04Ve7xsoxcjmKlBZX4T Be6WjKezlCioBakRYAas0X/9u2x70WOWqJlVqSP4krE33+mh3lg6nn46Aaa0OLDsYzusZIRyj6pIkggB dwuyUl4yBEQCMISPknFR K8ZmoRss7roU4RdwD4oFtbuqLxk83toszs66SvYlGcN2c+UJRMRdCbgrX5gL+KwAhlZrNKHhjzJbB88S pGvsQUmrxI8rTpPp5pd6 fnuIzd1AmCOWGsTxFdkuh0RwzYhe+mrFR0LV7oi8BVoUV5rWEPBcb7UrrHwNVMYRPU20bd9345judtCW bv/9H2ca37cJ/j5+eWPm 5ube/UQcX2bP/J7GsZc8+xXu1IqaWA171+fP3/56N2c57p2tQd3GsGRzW478/ZYu4j4s2l1Vr3ZxyQ5m qli4OrSK4gFpsOz4mo6i RQYGc1b/aJEm4zMXSbXI+RTVpNmLtWmBEeh2fWO+/bsOuCBXFAIMp321xwNL9kCBxRi4S4+oyM5Q9F2d PKrhuObma698vhwi7i+3 Q5fB35c1fRHXOZEetGRRtVnPj5ch/ehfFpQROoVYhpWQ1qVE7BXKR1pPl5jzHPTmBnWPm+/Dt2dAiQna Iqq5jCyv2MxqWWog7tps xs3ETmaWJiNQsZxbQ8qzgmk/+p624prss8cv9/INm7DQUIH5j9alFAZMd7trshfSREJX/uFpt1oQGb3K WdFMW1UmQFFrC/+/axOW 5809ICn6kwGGg+4GU3b8g71v+/F99dm5Mkyc3uzTDNbwduuJ8IFU1+u+JMTgBhSE7Jlgojra8h3LZjHr UaUtFotyzIkSfKViRASi 1E7QCrH2L80Ujm20ZR3t7ghCqA32NC2f+0anSpSVAKsBUZGTgo3Bl4NGfJEqvEzeW//3uAwv0GEfRWWE ATq4q5qgyZkB9RQ5Fg48 3y182QpVM0Y20nXjlBvAC7AOKX6OTg0w48dzwsVAWp4/1oCg5tl5IT3bca7iXImcjgWJuTdV0+eOSsSi wH3akyGcpkbt0kaLPAO/ 4ED/6mPjLAs++D+j1iKf2N5dyRHcFeKPTQECPL2TDbcJCI83lXn73AASuZVLyjb7p2C1exlvtjzo4Deq 7Ik18ChW9uZnuYckJujQ j1BLJFnY67jBgs60qZHGOIhdBlunJr7HbGt7jq/3lSu5HCVt6E0raKs9PoQ17QNAFnpsUpmOOcdNFsZ1 7qCPIIYRL2/0OKKj8Tj5 +Toz5bGCqytHb/Uot9wrMCYMu8bveqOzYvw4ujbpl0QmAlV0+joW5uhfOkFkBhniuC3+yeGv4PzkHpkY Ru09dDDq+0mOieNLkKH0 hwBu3RzWmNoyyq648KKSlz/TDAEEMbxkBVY6QA0XMoAw6WefVfVmpk4gSew+cJgMJh/A//Y+CmUf2O2h rDCwmAwpQassDAYTKkBK edUApMwwNlGr7MUDcAQwvGhuRrbgGEPKHhVIuhRFfZqdHgAd8MNDvYFikLfqTgwyCKIBGmZTrfSPwYpf HiYw9RRBrZXnpDvuFguy IKGVTiXCnvCEbTmeBsXy4OALtMZwdQyeYggtKWWOGbYFuqIRzScsBgPv0SGUwIZ+sz3mGpFiPZyPu/++ JFazrdn0g0yLss9u53q1 +joKBKJ+cppqdHThp8wYv/s9a44lBVZ1vl0N9tWeaQeFuT0Vjx30jl9vcg959tm7h6fIu8FEFFo968Ip uMJOaUbTaHd6VJZ2257d hgze0PTKM2lh6/R0BIt2lupTykJz32DA2+8dlLwQYjZSBhVjyqr8k9gOyJpchz/VGzy28Zbzfd+qR4+f Pj/zOjSpcuuXbs+ab5Dh c5dUDIBeUb/1w400pmw//7mzG3JIQMFESEHZMxoM4epldBmTI9CbVuNAM7fUxCVN2MO7jBaD3BCs3622 m/+rX4kutSDa872Fkbd1 uICAE+ePCkk/fIrtbICiq3iVQdLtEVNoCm6lGjYEaVnPJ2nRx3RXRPB1cJMe7iDmm3UT6gIoUyQemVAg 6pHRPs022Ylf7D5/ZkzV PsK6e7Nu9HFHYJpon9/2UpCh85b+LJ8M9YG/gjTMHy9LTZI3DShMmjm+iGdiQIG1ftmDOMYmTAilsH58 bNnBSW+DwDAACg82mJ9m tr9829tJ1AyCA0sYa3whblVGrVubWNUG72vPpeHnnmd87jNx6c+9xJWjdgdUmhIwn81+boi70YUsnxbE aeNVg7lQQBU8Hga7Ci2T UytVv/67347O6M//v179+8kVXXnZut289cJqIuD58qyDkn4fjQymSm1+S4y4hm1tzaBbUK/rIaFhTVt2 xG80iTOOltK43SAKp+7b p87RlIbfIXeQ12TEJpFICcXdpf6lK/n6EWPMUBv8uUGAcjxL7sYxXfvviXRuAgPd3e0zGjrXm8Uwr4Zp u7c0rfCGZQSd1npNgJ74 7/z2/zUjClw21r96jw/CsopB9a876KBIub/TMpo9fe7Y/Pbz58/IkB2iwwqXY8vyBtVaPYgzIkeaCSJl qV63QchFncthFu7juFNS tkf5EUbQIobTLpWXBpLfNQKNTrKWJudbtmJUi8dSXJda4GSfAyb/RjsiNNcDBNNxZrOblVo7bq7ryWVD ORXWFlZWQAwc+bMpKSkw kCJSNsoIfTF9TCP73ZlE3xuK3Ta5FhaTI86SLY9Qt05iQp59sKEesLlr3ex4cgNIZoUIKGYxgt+88H3h br0i7soMDUx3GvzJdLxL nDgwPztjuHDh/IpSQtPYFAi3raH0HqJgbTCt9wYzSNPFZv6dyYcWMONYQ3rfbXhIEuNsZ91Ew3g/Mbs2 aDjJ8bMRyLWX776isVvn ampvNJB7/oWArNlUlzE0Yr4QbdwlIk2dOtk8jDylVvWhi0xYTk8+/qnB7WeHwBu2VcyqBLcGGVMMJbpB s3Jck3Jv7YZ21LRmlFwf LYh514mhvSuEOKU5WW3HRFTx8LqhkQi7f+xn6ma9j9iTqNZbZmJwdCqhf//qykwEDtZACMwIx8OzIr1k u3OnTt/++40RFdUApsV2 jGXQ0MFMxOPXxbIK223b74Cq1LaKVdziQkqd7r6OtFunS6/v/fQ4yQ984vK3U+U8yZRo9Fshg63150CJ f1u0QuvfX4VUXVILh3LS UlKUFl+yvmcDhDTNWhXQcreHeSfa5gBXY3Q4QNiz1HKgQsWoQZYH1mB4+QBk66a4e14cfBkfldj10865 vYFpQAAc+bMsThYUAtLI jNCZFvaRe43+YezktzQyrVpZlKIecLuXg7DTQk3mtjblrVaMxXxZO7pmbmJK2bnY4xhfbgXEL2sseY6E Oee3Pbd+YtUoUKF/FY53 IViTVFM95SyKeXEB4fFvH8m2DBiY1Yyx2k80ZeTXbZj6WeaLmJOvKuSdT/c1I5ROjsGyTeWHz8k7ev/+ uqrnJycQhJ5+fJlMbNDC ExyKIMatyABMi85Vq8tpqEj1K8OdZJs0ogZvFgdAubds5+XBuHK3qf4+vqacjRhNYUaNWoAAG8+K4SyZ zfCnBKJCiPdv3WevnNTd Adu4YIcWLLk1xp727MaW+5hoAAFj142PDvQN/0k6fCjY0380711t+/iAIr9GFTQhwKbuh6OHRMFISLuo ooRWHGVbx9awBxwAz103 intuRc3SI7lKb5yBhc8GbksNzSAyN707VjfdReywSevW65zGX5FLuHrDJEgk101s3AnbaFSRyXd472/+ +23cePGNWzYEAAuXbpkI V5p0cbSQosgF51ST5FbCXEy5Eb3k+o8oj8u5mpYi8IiMq17XzHe+vTp2X2Q6rvFWYx2PFZ9tmTA1+Xt5 IbeOsDYaVt9KmYEMwPGE a67jnBrQeap3VYiQuq5zvv4JfX07X/9jgdbKYJhwXvh3uhmxILJ7qhgSMhCL31dESpqMEB7K9U8SXErW FHfafT8XIvohY/SokuIE Qmitk6R6dCEj3rCYSun+s9H4W+WiTFlIhCRAd0kvzTPpcc0Df5g1cDq6zd+zjZrn8FSLGLHne9v3b3v0 Ikk8nh74bNdkfX/ERQUZ CqebVrRN6i9t5z+49atW/jXOUz5cTfTa4MXgdeuFkACUgNABhS9dXwE52/Xgv6Ekakc2O1WwopeIeA6i 9bM/Xnphq1DvL91u+ePW TAKc4gldNdy4whReKXO9At0beTa125KvGbVS7q0rDYjWe7DYxVk8eH63gyVZdc8pk3sBsL1vvm3atKPY UFBv/vlm7y692+/FYlEP j4+ih3A4zlJ56klV0+syc/z58+vXLlichMHgJ9++ccb7lu9jww+/u8d311ndBq2WnkNfkp6+/dnWdZoN N1pLYkRzPhew2B0Fz1xj Gc8swkuhqRgWu8a0ydSuXNFN3pg7Ij8cVM/uWKImT612x6+/vNysvEjDpvbGm2mbnOqzlUTLj6g7t93h mDHWL0KZwMFvPhuJUzrn xLtTcfaLWDYHgCUdKy9Q40hzvDQdgYljWPa6lj//vrr/IGjdD3UlmRa5jlC6LfyUiLZMrEgaklpkLLf0 aowFuNUHtpgZUPM1EnUB D7IwGBgG31yqn2wLICCja63ACWSIo1fb74crViMiKpdK+mZqRsHId57zYQi2O/BtmHwXut7BjDRhRrTS szUnOTyfUqYq7PTFkJZm gWrfNnbyKFUJXuBDhoSYoXhbLmFm4FLZwMZdyWqgAu/A55RS/r0n4NRZEXQNBwMHeAqRdDC></span> </div><div>
</div><div style=text-align:center><strong>GYNECOLOGIC ONCOLOGY CONSULT</strong>

</div><div><div><strong>Patient Name: </strong><span class=clinicalNoteMacroHighlighted id="[id number] macroname=PatientName spantype=macro title=#PatientName>ALYSSA PULIDO</span> <strong>Patient :</strong> <span class=clinicalNoteMacroHighlighted id=[id number] macroname=PatientDateOfBirth spantype=macro title=#PatientDateOfBirth>1950</span>
</div><strong>Patient MRN</strong>: <span class=clinicalNoteMacroHighlighted id=[id number] macroname=PatientMRN spantype=macro title=#PatientMRN>[id number]</span>
<strong>Referring Physician: </strong><span class=clinicalNoteMacroHighlighted id=[id number] macroname=ReferringPhysician spantype="macro title=#ReferringPhysician> </span>
<strong>Primary GYNOncologist: </strong><span class=clinicalNoteMacroHighlighted id=[id number] macroname=AttendingPhysician spantype=macro title=#AttendingPhysician>Sarah Coto (Gynecol ogical/Oncology)</span>
<strong>Date of Service:</strong> 02/02/2025<b r>
<span class=clinicalNoteSectionShowSeparators clinicalNoteSectionVisible" id=[id number] internalbreaksection=false originalname="Reason for Consult: recognizeconcepts=true spantype=section suppressempty=false>Reason for Consult:</span>
Cervical cancer

<span class=clinicalNoteSectionShowSeparators clinicalNoteSectionVisible id=[id number] internalbreaksection=false originalname=HPI recognizeconcepts=true spantype=section suppressempty=false">History of Present Illness ([facility]):</span>
Alyssa Pulido is a 74 year old female referred to [facility] with recent diagnosis of Stage BRICE [...] internalbreaksection=false originalname=Genetic Testing recognizeconcepts=true spantype=section suppressempty=false>Genetic Testing ([facility]):</span><br&gt ;None

<span class=clinicalNoteSectionShowSeparators clinicalNoteSectionV isible id=[id number] [...] cancer excision

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
Never
No history abnormal Paps but [...] internalbreaksection=false originalname=Physical Exam: recognizeconcepts=true spantype=section suppressempty="false>Physical Exam ([facility]):</span>
*Virtual visit*

<span class=clinicalNoteSectionShowSeparators clinicalNoteSectionVisible" id=[id number] [...] & Plan: recognizeconcepts=true spantype=section suppressempty=false>Assessment & Plan ([facility]):</span>
Alyssa Pulido is a 74 year. [...] and Sarah Johnson am located in the [facility]. The visit length was: 22 [...]
--- OUTSIDE RECORDS SUMMARY | 2025-07-17 12:45 | XMS_ITS ---
Author Name Interface, [id number] lity Address [address] [facility] [address] [address] [facility] Address [address] [facility] [address] [address] Support Name Relationship Address Phone Jesse Wei [...] style=text-[email or web address]:center>

<span class=clinicalNoteMacroWysiwyg id=[id number]" macroname=PracticeLetterhead spantype=macro title=#PracticeLetterhead><img src=data:image/png;[email or web address],hTHJJp7KLqlFHNCQPLeXWzTZTHUNVPSuRBYWNWB3G3gOS EZQVLAYG2RGqm8j3PLVVAYiYN3BWEAxkog7MVVEUWZCfEbTlcWRYcWOQU0BAAAsQjgPJPsDCQJOUAhe0 M0HaDM3NviVHhecouM1O pXkShPEZKkfXfgMLyyVJMQXOYEeQxOCTZomHabJeHOlMLXF8MolAm4VJtwpB+u8/Jty5iwh0u89S39Pz bweomspqUvTKnQM5ozGp SQPKYuVWneFtrQsG8KuMMD4jV/wJefEXTaKoSLoFKGabTHBRFGgRFVCHRPQqqOIn0VOkjJQx/gECxCGY QwFJ8qLx5LbaWo7Rd5cc JlNaGofjxUZiNMjd46ZFhtcIILYf0lmMQAIhJynrHXoOo3cS2sXyJzpPR9bfEYVjto61nctktER2efKN Hh5f6BIs9hiqVb01jHAS fTeUyRl0P8pWjzfSdWCDBw9WZnQ9qdmuBk0jKbzq5fDJbBYYEsIyIuPwnwKJCnYxdM7pA7ulp53qETmO /NxCMwrw8BHt0vki6Ab7 6oQw1x/sABhrlu+/vgjuw6448K/nOHGsEtfItdLm2xNAnJhssspSYEERXLU+AdQYHAQBQQQrV7+EU0e+ lMfHHcA05CFmuoiLo1Dc 14XHiO8Twwyb6+gUOYK4v+xRx8a//7dKmlGIcNKLwXOx2+q6D7HZtqRm73x+3DvQAgEfrNWgM46vZbul Tx++/btVL9+felnmOsJF iDMdUdGRgYFBQVJ/bAWuAcPzjcABkgRQzMRSMjUI8E9Gd2lw6/XX2ZGyy3dAn+WicljaQQP6gwFCZxeG GJgT8c9fvusacCtMN0j6 Cjcw71uZ4YSpd5T415kXdPF6IRDOPteQNYiroTsCl7zpNz8dJ33VIOgSptHDG+9fe82kPfIpWtiiH6en IEw/wpWrFhB8+fPp/Xr1 3ItQxZJhEcPZi54pPUnryvyoTEV33VtRPeF41E/jkaJjyw5OwGFYKDUlCONaO0pFtFlZUKTmQVgGx6je 76enSnsKbUvj7EaNRS10 QPgoPDPK1bkyc4YZyRRwuExifGPziIUYfLe2Ht50fu7KIgMFbxAyZydlRoNM1m1/MNuPAie1sLkNq+6s 84lpxyoItJgdOWwVzB7R pFkAxKoMzRk90qKuYVPWzKHu5nxkR5WupO0Tr2xu9r+kkq7ZQMCUGLIzDIXSNjgZrRg56//vhQmDFNQ4 S9pkvAZwMEjCNTPX7RdH 0pGvA272nvlqiBdYKp15zooMrN9A98mSe8j0e9jqo+ytUtFG0ljebuUp749Sp/IvzzjYk5edWQKiAyP0 fFUYV8VIWI5QId8Hfj3L pIioqLpu4+N0F41PaL8AK+gD2e+FeEJf7jRHA2MMi8B28X3wB5xF1E6j++W1+kDWMbDMu57YI2xsZSvo reNeKDTBCJOnnQtdqn6d XzNZrm4shW0eCwPAEZC0n8+e3Vt40jSC1VsZekRz3405s/IMNadTzO+HLMFjlQb018OVfMVl24BGePSP tnSt2/l2kiwXg9QkZRJz 2YscTvfHDdszcQdkq52um/ULAyEuCTEtpIDluBtkM9fTfF5RWv74WAm9lRqW7TYWwhKBzLYLqvzu62/M NAY/eA8K2dCWCbODtdBJ +cafn7+en1XEyELkwQZMKM2KvBalWB2w36jr2PcYdTDY349U5SdaGJLLHRmeFH4pQDKLJnj5DqAmlXYz 7MkXT6SQf65LnsUceFTW 6W/sd58dHtmKoc06WxguCKE6ouSp2t/bSsc2DULLqzYn7YZ3yoPE2eSao2agXazAPXLr8PXVlHqpOkm3 xjdoxaP5Ep5cpKfah63B x7wKTTIRKm8Y/p2eV51kGJSFSeTfMlcZbiBF7l++whm9onnqyGrW1SomRpJZCrRZUSeVYJqkEVPvzCAb QLWTZgIiMUPf//9dxXrG gy2//ylq9Q8K5GAeytfTTm9xbjB1jJVtB6vzirIL3k9oeKUBZd+/56NlTtBVk5haMlVOEhIpmL20DBES pP3uQxfq91+yA5TQ7TQt rCzSXgNUw6ZPV6axuujeki3gPxAckJQcXnwqtxlxj6RGM+Ex+QXiX7/g+gB0AHrIVdJsXbZ2WLAA1qhR yqkTvqYcandVo5a4czsu Da35PMUh5/S9TAxB6kMNRpDpzZbr+bB7ZWG0XuPesWA4PpAgBEl94gHfZhwJ520iAj3v16kKkVjUTTmc E3gUoXRj8NSzHAV2YzqB eUqVdQexwwdOlRuddeZO/DJslVsjd5OzsM8ZpQgYHATr3+dJTVTrocTsSwL1XcrldHOcmawUaIIsTM4/ PhxGd+bSiHdc9hzOrDk0 rtxey4KeKgKeKDUChuhhc+ZO42zJ9KQQDGvAceulIxcgyuRmE0CIYlnGgOYwrnoOSZaTMJcFYwbqtb3a NG/l44MvweFJh8tcDa+c bP2qTbMCqQyAMO146aXAsPOMCo3YOpKsdVFt+4vueiNqwFQed7NjMzstM/335TQ3dr2zOwJLJtsWbVQI JT4ZVdYZR8CMMbMIb1EH hWLKae7l+ljK6Sr554yD1164ooXG5F6d+7q0w0Mp3sjRuqu/tkEfNzOYMjF5Rb+8RxEEq51vnKBXrfS8 wERGTpyqWkZlJCYRCdPn eu9Ropbj0mXYNAn7pIi1bCxrYK78roaY3t8vtaDRUAohPWX7a4DTaf9a26UFTmvVH3MWtIPerj915yEi dCQW7OyY3hF9TSombEeH WriwAA/ChCl+MDhwzTsiScoICCAbqhRnSa8+YOi08dEjfram6/MfQRLHPMojK2wpIhg0RyNOiX8hFgiB 4GeHUsUl0XPSwhXCeDvs OGwtTr/oAAKDQ+d8wPHNUmJmKf1J4TwJrpDdYEIW6ulxGgj/lLvbFxU8w7+xKNjBwl33wow21w0nOutm GDaS39dx7gInXpVuBcBC Dj+binsWlEqEsvSPlDWIToWJBXyHOYTCARf9Nz6p3ulvOhi8dud7xVi1n4HGCyAkYpE3py9H7CIGDY0F vf0j0M0jRmsnhm08mTOo gKVXbZtU3cTsauOJtDfcxq7naX7HMzm8BdP43bkMH6/c5fRf+REOqbbDPawwvnjT2qrHtgALKE3mUc1x mGY/B2FYQEZzIh9YGppt qJlH+eokDvffoex/adtSEpEsEEzR4XlhwUdyVxZkuQht3z2M7LEUIuTIZ6ZirpPCSwjQfYmJ1+BzLtpo +ywNAJCpTkgIdar9a17z hb14849no4jgi+MkqVKSz/IJQS8LiESfFKm9EKAinjA8xbvDwCRMD3Z8IK/zuftKoQkMFWct6QPh3fUT RF2qANL44iPS8tmuvQ2y nMLbVy/gZIyDWm+yukWEKDYgFAY97LyvMT2dbDhKdOicMMpumR1+WWDWmTJg9RecFYMv/wpUByTkJZJE 9zCnhnDZ0oNQPyDnOm88 +9XIYbJ//ZLQKCqoQwOuSWBzoE6rCeGRayUQUv3vxPruC/VjTSttTpFp6hYLri3DBB7qJ2mC3pZmGUp3 FLOx5AFQ+KXLXc9dSOm2 cTyO9TDf/7654t1s2o6suLBsR8SZObUF6NW+w+Yl7X4XOUZ2OZbd21KB72iFWJxDYF7+w+A6YFJAGogH XpYVCZStJcAnbtd4ueZS UKpAbnKhrQnLGXtiGe2w36sCRr1URonhRLCtoZGOItcncsOzS4wOdVvFOZig1e5FN4K2KaA8pK1jWe8a YZf3EiihIy+nurUrUcLl sOOHajt3T/dhjM5Sa9E1pxvmik9PGqWArMlEYKg2VCBV6uPbN/EXUhnSoXZvsDQ8Ko1u8vby4Nw1T9mv pMYDcWER4hZ0+QWVkxYX 3k6DIdNnfr/ZnXR51qipdoRm2oD+YpTP9CgSTEEFnD/KXm01AXtcATTlyT3Uv44KB2ACS750jtOX4nH7 GSkFQ4anZxsq40MzbBu+ lBI1NICALeP8cWHR0jo/WsNQ8AWrtQiAx+eTQ89+UX2Z96eGQayqCu07Vxymn04ZFPXLaBDyp0PHCkFu aHUTzoQkMJcEplYQx8Qu 4WGhdGvew/Ouk7nBA950AQxFBbgUSylnvEThZefDWm3QTQkSi8Fy9qLZklr+5bf7acP1V04V2MoDvHvS 8HmuIlikpCY1DjH4+bNk 36GyY/rDLwGY5DUjhlqbFQ70w/6ZbrvqdEUd+1dNBmGpZfqQRpKugJl8PEbmPg/lk4nZX/fBLI6tG1wF 3d8JeLP6z6gg2DVOpYwF MlwO3GhDIGnSTFynWcvBr0nBPnd7JeuLcVFSAiQ64QFgeOske78d716n7d/slvV5MJCFsG7BsRDW2tkO ryYd6cJqVlJhbO3xTMjQ 2p0PYpUPn+iv7VRs/FNNHXtFrp0+hz6fGT/GVOrSSmztAIvW56HKab4KZEFFONZpg9+gQEUEhIgKuYwU KBpIJvfYL4IBfNsSawZI v43lnR/yj1l2QXTLLiYzf7M4GU0/AKHBs8OgIgYDZY8JFRmO28V1RvbaSvODoSd+z8p/nQCxtO2AO4/K pJwEL0w68lH/c9OkyLez uRHuAuLyXcMHDhQ+PtOm3uMVj87HWqPPAYpXZsysowzx2Kjt+X+cxPmevwVlVXLSHB3hAi41vtZBszJZ 7hb22UgZcPc8/kPg+U4d 4B4lWrK+LhLdM/nc1SsiSoPl3VNYt0/1DC5r+0AiratCHPKJ6awib2dpBLK3cbA2H+baoC94NLCkeGOP JOvgEns/Lftrm0Hh7dyr khJEaEprL4UZqffAYyRpCyYCx9vRlf/XEJHzsRRTOFgeuPtObR+pDc1P7oyzIitqWCuUddZKfwyglIO1 XBQtpHsDoJsnzPH3900B a7WwMvdZnFk1T6K9SXAvymhCQzwvYvseUa3SYlgJ1rhuYDb5DqHviOEusoJJJIPN0kg4RBFaiOZNIMmL ZRfrcVQwhd6GYYeDXUtV JxzTFLu3yHuSChUcCkDRyQAdxpNMgjdmrelTfB9Xg5mHIrmGv5NWh+L2wGjGAX3H730A4OE3stqwl1Os ON2oLh1TT/frIz4WYIhR LhhXOpZxZDksXP2mVuAogoAS5vxOfSPrBS/16Yj9dkyADj1zsoAf6HOdYAehdKyyguFlgXjovAraKN1q Gne8t4+HZE7GS58dID2c 4UbFrBLJyFdPojxLbXcLre0Vdh0/t8X6g0HKA7mKUoUSqfX7BhtJED+TpFOzvxsTS3g6ak/G5pBagaCL ZaejvXTCxpMvrb30ygsF x/L5Q5SsCY5UimkCYGBgWmwWHL2HYwTwLzOuigilL7HCbJHPoiirFh61FE+mufshDcPNPRKP1VPRt4VK Rj/fTXHiToXUSEQwLj76 fjpD0vFmhhKQm1gzMkL0VTeYKDdtofkRCMNAMcZq7GCG8q4fBy2RvStGXTUjUP8i+D+wyRvMdDG2KqKb VmIxR1uUXcMCaXE8vSNg lS/gOrW3G2+zvqZLo6itXLn1V39ONPmK0JAkQn2t+vn70/h4f7RrGoqoNOVetaQxbZ0tAqBYOeU82KRo i1xkJaTNmQuN4E/rATi4 b0JPnNaN37Hy4Jz56tOutxkpxiC/P376Uct/ZghI86l16ZgmYeJ8K7SZhbwMwSQPyUNUnSABThXG3k1x xLZBXiQgqTPcQNnKT8Xu zZdpp8/ZLVwQi8EFUQHFc/B8M9FmYN5paTy7IWp2lsFyjDSUHEls9vvj8F5FgzhQ1T/5g/kP4Rm0Anve 5rm1y9yKK7eRtCu3UVev Zp5TNZYr58Powa6KP/DKajvvpzHNqiPVA3n5R4cZZDTgL52qGAdJD9vdw2LlEmP0iKZgxHc3NKI/AELE CZfMWjQIOUj+r1DDrVWI bQoPHwb6UX9Pbouxzs6MH0z2CAMJLlHlw7MjtHoOx9kVyscBOulEGjb7ho1lZ9g+Dc6/BMfxca1tDjIW 703k+zdL7mn9TDBMe3jk +329CbmCIrF8CYeSeoSdALKSSvbvqvcGMW2iaHO5JV+yragL7EvI4roXrRcMJ++PB0/cdyEwEdX99iOK +GTQ5DNjPz3DIAorFWJP zN8ydeSETrG0UAKF5RVEmr8QTOglfzMosTgR0PvTF9vVAwsg5MbfwS+LoSJQzYHMYLdMB0IunfqaxiDJ tKOv+HQ6KMdXKaZkWLpA kgFArijz5RDtRsmVsNLOoYhKLRZSBWc1PgKYER1DpWzFMqGjh/XJDwN3rSXpZlrCOjpEiPlnpcDkmZQL dYl12KELgSL0YW2bjROA Jp7xk+a2SBHPf1HUfE1iUHe/krGoxWfEH+JUCWjWwjjJ3+vgwYkrkEKNpMhi7+kLCFEUoVASElOobtGm 3Rsc46mrpbOpdTTiXFN/ hvKqOE5k1+QywHaN95aqohjJ0NYpXu0cRxUikPb3+Esdras+vlceQtLvgIXwBYdaY8R9BzYoj+xQoqJARJ7 bs3AycDagHdwqXeKO+6h do/LaVqnzethqa0MEdJseHqaj10XY1cXgI3r7WWFie0MmyCtVYLNfOboVFWcZ3S+8g/CIs0geaDdxVmQ mlHbrp3FN3Xed/tp29eG y+ZQEq1YXIn8PK5LFX/zMDZdUvq5xTXQfGw/5KPIWa4F+cHaREAUEaslTkRVpwtPdnmcNKL5Sc+MrJQ+ MntnsI45nr5l5Fvrsyyb fkQE5FfbfUyHJ+j0UhEOgrocgM06LFU4fv+/iC1uP2foK03zUNIf8zME4oM0ojAHMDbPKFzFG7q82ddl wHG7x8WCWIs1CezFqEiD yPc25g0t5WsSgPeFVYNkBd+4Gz6iLoWRHdjfi1qGsRoTRMSWXA/zHtL7r+jbgGGnnzbv3yLHjQse10ce 3jjwHY5Gp2qEZmKDR6I3 S7+XkAZ2mm5y89apLE2wmrd0UflYUFRthi7wdGwrVB64KdOlTBEQol7cskF+FmUBhBiaEqgTSoFM5jBT REVtIf9f4CZV/+U+xkmP 4UQlFbYNQ4+ZDx9odXu6yVLKTiLmla69tvlOZbLl9MTyluStYfzvSUptwM8GRDNSklSqvuROZ1eck+YORUBA uXwdVAHRklcl0joDsXL7 9Y927gRF7nlYrAYgcAxruZG5MruWGWJcCKIIP1GwVtZxWwY80DP394LB1sYhgSqA2kUiZr4vmDCr+RPW IAw+OIwLCs617/T5Mnmg ZCzk2bVUdt/bxBlBgVRpn+JtInBVkQMlVUYOpf6wzd51sykSIuz1gm8skKfmzGMdEOTFSkmmUcklzmSQ UfefaZ54STTJTGhHWoxD fRZhOwBUkFW7PNxy3NReZQAwLrHE8JLLQQD0CdrX7OmqwWc2Ck9o9SuHkNnFFXGvNd+pDOMFPsDoW44g sHqSuZ806HG2hnKE9Wxu NvKJOYIpNHArCstRvoF5eWBgVAZxvmvTjcm9axS28mWAARnK8Rg9WQ1c2B3zjRoJ4eaMkrnX/mMholzg QOSNkv1Pr6RMMBJQfPwt rXLIPb2yNBz9t2bCijeYfP4fHkd46WeGOt0bis3DBe+MEyidxwq7ItISa+DIqqFSXhYGCWnpVOoqIBT5 Bx3wMc73OsH/zOCStZrQ yhvoEYAbrBWaucH3LRghRdlqv8AmN1+6AoD23nOdtURn6CyRilD3Hj5Mg9zMCQcaZ7eP6UMAiwm9CGBp rmRcQ3s4XfAdpUEwjLYm VtSXWZNqV6hoP5+ekE6zilEei57RgYMS08iuj3urvzXRWmfTpvniCrXrfBRftkOP8rpbtGeuQY6jdN9X 2Q8pokMR8hvJg//mlb07 radWbUrpW7FfOcjj5ZM8yKRAk3d3V1eYxpbrdKGnT9/nOwtpN6gcVH6SNSeBSH5E3LF/i9IA953fAMEQ hNf0YX8c4cR19OmISYY9 HhSWpzXwhEjAKNuG5HGV1nd7obUeD1NCdxxmn3v6TbiYnTbPPlitb49DRIPz4DvbC0REGo3u9NKyJpw3 Ny5k+rUqUMVb+tGN09+T 0rnFLCG5v+ls6fdvB/JnT8gjt8EtvpAPJQdNYEzJcbkbd/XdTjt8ymeVx8UTeerpzqXFjNs9CGd/OnLZ PKBBbV0xx/Ux1hZDxKo5 Fou8YdgsJ5vL19WRhb8tC7/3Q5gtACLfCzGiUEqU+pB2qUh4M0nbtuLT9nrkhrIkNqX/wHW5adOF+jkh o9g4676SC27QH1FAGthL iBMgeHTTz+dianne+++aiom1PjifdH9TLhJ6aomLLbLg1DjTJ2EMb3zgv05ujIDi41RnHGbyq0HSxVfvsnUC Q1NTdkvrydT65axR7mxR vARxlDjFN7WqAVO8D6fH+K1w+RYsZTsDi053+sP5kh5bPilgV1an0kGqf0wCqU5HTJkwKd6vmQyhlDCA k2CCeTBMZ2zbmkNQyRUG CLnAC76eUInK9BMPu4iCX26qpmlmVXGWeDvdCXuYcc45h6wfyaT9N+YbhMgqIVRjA1/fyFMgikwJFzW9 IV1i7Yp/jfQPx6Yn0oeq ddcHftUAfVvOcGs7IjtVZSEF3RNCKEMCD0LCm+KdvFkb4LMb1NQEAsi9UC068S40HVG49p9ux+8CBnpy WQIDanZ/V7wghpJLgBWp LvaCWnTvYKbvkqOt9Jev9abiUksoWobzPZEylYf/p7oF8Lth1hADKTMzTeTFb6+fSt9xDon5HNoLy+7Y E4YZaoXA38QvjrcDhQzy ML7iDOhZr6/yk5of2sIZl7G3xK0fQO3j3m9bP+rrVkFFPtRBuwFtrThA0LKfmZVeyPKc8niiVqZLYZcI mbLn5BWIByU2UFVRyEXT n+5XeR/TikzmA+Ds19fQlPCxAE15h/lESF6P4KzcYWg/EsWRIPGUqMcJhlgkIfb024L2rHtHDKlE2OxA DDIFRqSI3LIduiILTqVh KIP7GDEwvWpIMqqx37NNiIa4o2Qj2ArUXtnpo5ILDMFdoQ3X6V3AMzhnwbqIaTFHxDwRgRfe3Fjyg9+J eJS/GjqRJVIUPI/I6nu6 w6S1p8UYGwoSNy0728tyOsHDcXfHgsFBOEmp0XRXbqlXcMNhkuXBMG6ioZ2g1jdsqf+gZQgtCVQsmRJu WWYggBrIEyBAUubVKtWT ssjcefIptXYKem7kpaYqC2UCX57cGzGHQaABK2edXYaf0pA+AlMdr8pZAXZFWLpFdCTMSR5xQtM6Jxsg dZ+K/rTpPsWfMg5Ydp+R wT8qOx/X2KGc2vFXqMR4aEvYc+xxRcQ/tCn8OLhHpd4j1rDyx05SNA3UuRhAAltHdxcbYpqjxre0CSm4 K/28hNVST97AZ2fjrDYF RYgTIFCm/RGdBtAsU+/NCfgBxGmOmJ3y4Dhx/rkgvc6hj80fGyFafoClg4xkdPskBCd2q+JWaWL/0PCK Csjjc4/NYDS//sj4Ihry Bz10uopsjFyrGOWhzQ+kDj+Mh8cZ+J3sPUCx+/8J8sJrN3ViR68wcHW3gCDCx/5vOcu0k2y/6gYSnzpC UpbvVLG8+lPBUR8J6akS UMqwY3NcUOgQzRjV0aQ0K4TwOLCyQmVbMBEu5N+mgWlFrzIs5GG6Q995DNMjc0SuGQVVj0yLBLpWFk3E yuczOUQVYfLMgoUUu75W 6Z3a8h8xoGwC9VE2iBoLRzgSd5P7mAE4PCTQ3T8aDXUbsQVQjoCwiwc9yFi05iGBrZTkY4tn6CiqTYig X4Rn+gfQPGnjtuER/Pmz jUQZKuXGYGOVhP0sdOIabkkhW54JYALFuPjuwax4dAtc6OCfBCpDblYtMruEomNrOqnDMXKYZYCMi5X6 WoZ8bGZEpT4TshBONz/S unSBNiqCWRR+freBCfZ9yfhsRJ/PFxwDLmDcB4KYMDTfNd7FLviuO4gkHwImt0vUEoGInHLYGdd6NqDf GZDjVhPVLvLT8JKuO+aN Bs7ABFzxVWDDPQ56bHBFiEyBC7DDhQ9CVJusCoHRYFQ1HbznC8eaVsneeglgN6hzYKcCnXWc9qBVGz2Q txMyPE437edQfO73oNbj 1ExZMRfIOOVYUTdmxKt/ZSoRBmimUIzmLmCqFgpom+ED56zfLuxtATwXb+gNWsIx4cU+g31xKt3ubTFZ y4Q2LCJ2mIP7ILIj14Ab FXlOuwhYwgIyCZe3KzQH3SsLv7ug9HCQbrXvpO4Gg21ZKNZhgtspEdxoguQEADlLeDOVRXPY+qFHJswi 4UvgGHqhp0hMdIppR6KU G+uIL/PWYOsbKyJ5d6CL77f+u7bZGgG6KBmJnQ/W+HQdZ617AyMv49yNKj5u2UAw4IqdpAWL1ZE8cdZB 2z8BxUpQl/Bo8LFz7yYX ulZYKT7LZMnnuGSIEUYvC5VdiVMIgMlABrOFIywsIpvOBDAPUhRRHz7wdYJPpxtGztzYBWYumA0GHVt1 FMWpYTIbhfYtgDWtD9lR /YtMrb/IOLXg5D2JgCZKY8JEo8Fgt9yJqU1mcbYuacI3XjeX7sUYSkI93AbnVdeDtJZj+a+kDCiO/qQX +5ZMOi1bWsPsUUnPqEyH HC27qWR7SpnOfWR6+wpMj5+y3o1BIefMlu77QU/jk6RVvnIUwuHxsCRy8aKbi+3IUx7AgqIMDI5X8MII ksJKiSEQTLReVGh/y6Ex ky5bbja2O4F1X4rgvAr6WCopdAmnAbrW0hZSCM6zr3BsSjaQIi6teyTZ3OQIXJIk2IabQ8VJh0gzLY3f l2frANTkM/nL0R/HbflD FiPR54pcu4Dffa8MQLjQBGLFZy8ugzzlsHwuzLtj6kDrGLNAjDfYrGDz0NEDQtj3OvN9SqWYR1eBNcbE Dpg/4qI+MAgolChfYRFE n11RDCcSQKVqSWHi8GhQTk+ZYuho97eqeFOFhwFdJ8MuDG1+Omnn+jPP/+SIkwiiYPRbDN4uyEims77L WwYPEoMruYbimzWm0XVC jVTWH107nH6LrHjQ+cPURtQnkxE7lsLSCTlpwi8KufibCL+YxhPbydrDVmdwNINYWe9ajoeeAZVmZykB Fy2UoUc01sQaDqCqOvkK bcPMiSNzJ1y8zyTsoIxAsS+G3lNXdrAhUKRKuU5kg02vrwC0k098D321BSXLNtvF+KRMVBNTEVEtqmsT zZ2gfRMcGdrN9mjSnMmb IMYIKsY2wEOUQotfro865YXUK+IkkVIXAtm4XiNWXdYTGAl6VDWDuxYzpYEK93/0ny3b6b011KPkO8+4 59jvAhZzl0eIuVs3tNe7 Of7wTUVijQLIs8PCZS6y0kcXIAFC0ByB5vAyZYiLvMLVQSn1uhxau/6U1ZENCvcNIXK776tB2eX40+/r UIWIqNN+RVp7Zjeyv1qU tOmTZN+oLR9zNhMkQ8fWoZdErhbr+uuu+bPWbi2WwBLeJEJDrhdA8nUZ5Gyw3MUNZxFJPDvvPQQaWp7b javpGrVqtS+fXsaPHgwC q5XzdYVsBLQdvZXTrRuVDTsrONGGBXdDREEEITLlyEMp5HUluFKk/tCJlPAMInJD8nIAQrCRW1SQzRcV IbxCRYgDMMwjE+wAGEYh fT7mnTDisIH3oMnNXaLXXiuMTBAJOaM+FPPGWUkKDHiVQiWl3LPWQO+/XvvEoWfIZiKz8fmaOS3nFJz/ I1U6myCPVoncAZXQsOLE UXFixenrKws+RUou0gR4eJUm9hgr15p044gpln42xced5GJV45JZtvysSUPwaDxKrZJoNCTmSq5iKFYy tSzZ0+dUGTNIb1a+ROPB Wqzt95E66ijGj1je3vZ4jBUrKbwMkLd3JCTNlBqo5jquztyiNdZfmqVft2RK6+evvjiC/7SG/Rk3cPDE 7SqA2QBEeveBd91bZscl htYZP77nZr+/ngaxixkjfzdKmqE33zTs/vvv1+GGSa/7iI2FQu6i4ll562BUFIRSEiKa6qMnAfjKDXZc Ybe9sISWUv/EytWrKDu3 qaPE8Nhq2/+mSpWrCjDjvjvf/6Itf28zQIGAWhZLc/smJmHr5FoLM81Or0fyLVEl22CvODVu4FwODeIC 5JodIy7WD64yHVx7AOm+ iaPIj5YE5s33Yhonp/+iH70zdW4jYKvZkkauArN7kJVy9SPeSudl0Q07kZG2lmTBxFJXAEfB6j3FROwb ttRnePwkstqa2mtSrugL GHAoONYcs57dYAlKCeVBJ32FjrJENQzpuLejfSXZa5s+OmK1q1X014Uh5dpK6LPaJTYhHUijwbTVixS3 OrRowfVrVtXhUiOh/g65 umfwH2WAbNOoEopZLukUI+++KLyuQcvFrSPm2++NcJDhFdp05/jev/9/zNFrTvO31fEVtFrUpVEPPyx2 VTIO95++28lV7gNxzLoB cw/e0kZ6Yp989XkvAnYik5fHxcAYWLgrGtjgFsF53k7lIWNO9nVqHARTerhdzsbnslnqA7di1XqMmOUE ETYzH/RI8aHtPDDuZDLi 836qtBow6WtXJwCQVACwiXy193M31JD7QsIQ+/bt0+OxyAd+kgcVRuOhYfA0AVoOhN6Ntfl42VIwUSYN 3BCyg7kVnXsQGfMedVAv TJlpMN+3Buc63//+201e4qcSnp4HX+FYf1fWILIJPcBTohAzRVOITr0yMQRoy1sxn+NHbWy1E919VBAq JEo1dnlXxtAyVm17FT03 mliYK8fqcEVqsadg3+tUrgHx+Ie4jfg/egRBya1mTXWRsNZxm08BaY7t5SFbD/1h7qy7vS6T/7880+aM rLBRJy5MKLkk4011Pv76 dhlUBsttOnpgvujnIAFhYgiR75LvVfeSsEmY8blgRL9A1jYu1wrnJZncrgA5MWx/fXXX/MJnDfLH93WC GrsPNxXWNFdE7QM8qSEM 1f6VVmjjrZBL75dzlcrz1/IpTDKYYz7tLnwyaqw2pMxdc81kiXo5pSfy7dgenCtOW54HIL9b7ep2YSXt 6lEnUpgPd79Mls8svK4J ff4iAVEFRA8tN/ai68rGYtawLgDPj0FO+E9wfuN+72m5iDfugbCS2xs6cKmTWvLidEq+jzu5HXGYT1fQ aVwgXgpvUKcDAJH+sWJp F+0PaBfcOvHlQ690ql0xSWnIM6KkRq5l9mPW56lpAtyRNqmZ59lmjuMw7JxySvOEdVjhWJEJqNwV38h2 q2kgknKYg143bdIvkYJa Gpo6WBFo8syvep65wrhmuUtR7++6yoUIHXZGZJ2rjdlUnCo+++/C1cHLTOn1ChvwMugroI7TV+kdLg+I axs+3KqWEa4XxIkuR3MY CXNpaAagMLdmGLjQPQAhBqIZWPFyAvIHQRJUJqg2ZOOsrgCCIsvJw8x1c//fePGG2+V0owts90n9jiIp APtRHCC2QJBDmaPRSkI0 ug1xhqavX3d3W5tH1X4RjNEFs0Q6ePo7e3KHFMc15zrgFBqwl2KheBJD/sQXCXQG0MtUNiUtOZnPCJ34 sNoW0mblmkeAF9DA9234 mGCOvXjn3fLx4WMzDQUUHPm32533p1POBXCYYbBh2/9Ibd6796bQWrsAaLhE/PmBPLKwHi3jgt+33nnH Vu5e+WFW3Pz95pvWrXs1 c809WiljsR/e/Silgl1YsktPCaguHAHaoMi41Afu/oNLCi5bIbNMyf43UinWIfwRHSmyfrUAJcYM619n xKCDsWv8jTXipQpaZNr1 D5jaVj50+2AS9e898tezr/ViYa/8fjjj1/8fvHSucSV8FBWUKZyFnr6luJNYtUlTWhOz3g/XRcQy0IUQ GCA9P/+++85jvVUgGiee +6697H1He1MAgA25bZSZwkefzuQaUcSAcFd885vE0Fy5xRxg02oUdr9QSPQYjGXV/aLlp+KuRrRwpdpR CtYbaZDo9VEZSxKdijXx yeevxnEfdLxWJeIKwax6dneBYLJDnMYtpXd1j9kFdxlc0lQozXBPg4Kof0V3bRZGmuqkyVeF0kVSBJrZ u751WWNJmNXBNbgUh1Ek l3Gost6190oUeebim67kORk13XANEnbPJxgvOULIylnIqRWXf/s9zigrmdn9yIkqb0/RAw3jMacwY30l yzBeUgJMxOCiOm7syf27 nVNdGcBuPUoTL7f6wvFyxjOVYTnO4o8zyMIxsZ7qnQIYPtQx46dzKjyrLcujiS6UgAbpqnAsWEXCjtRi Dpkinp7zt9EGB/XHUgnV YcLsd9GJNgPyFMxyiGqslrpkuzOsADiE5giWS/p4Bu9157P1Rg3l1MTfRJ2q5F4Iikg6Huox78BFDGLz QrVZcuWqdirQQvNERA8+ ioGUDhxaybyN19ti8vD4UdPfHqseHAr3L1vC0jq0ecdkrtuP1IBOymQRe2fzfqAjo8w93fWTleL28YYC kCutCaANMjPk/fy448/t n9pfxw31Ree37/sbJoi8nq1aCVxoXFDyySTGwnrdMdfNWqgVV3QDnZZrLIL+EJae/K9kS4vm/ToIeMcg R4ZR/m4w+mw9IUFFH7Qg G9iOCJtYmqyPKinZ18fHoWkuTv51Bs3O2utIzKwfVJ5icAHrySIKptleaiTCcY0xp3v+u4wK28toJCh6 J0LhRQXacI38Q0viwJqj +giPhzgvb3FttrRRc+vnVv1YNYGO3m3nOSQHoQV/nOG9k8Tj1eRmuMolMOdRm4hyYnTThjI3EnwHMn4l Zzi6omHN20d1mr78Kh2+ kFaFe9i6snY0m56h+QA8620U9tncvwNlmQtP+euwkcad+h0zcFFVYnn5Y0spojwGy6f53GPksfPl5Jvb b++2621eqTNpk6a3zhZW d3ld5WAlt0Z268cK5x1lIGbvDIrp0aBrr93EDC0WbwTlRv4HevP1snVEIMqfEuz8Sz1KxBfk/112wXCO zhLhb91DAP6UZUL4yfOe gGXADaqWSYF9w1K/8Mi9XzbsCxiSh4BhjJn5mLisz8Y7DzpncPXUBEHxVziY4XQ9whEInG3b2yRAKJ2p 5cQ/eD6N+G+bCj91fgyO CXU5ltiHBI2ADuwlxg24d+4vREWJ8NyRID6UvUcHz5wlXRxaVBEcsCBTBUx6HZiTwmBIMplcik93s0c1 nGVGVrji54+ImT1S538B +rCZ6uz3ZvuuBwx76o7f0RVryC74mallXQx0/G7vcy7FDrA0AJCemC2DwkZXCLTfeZbLzg1TQZRwZxsy ewLXpvxOmLEiBHKZ/Yesenia 04eScxo31+IYt9nNg9G9110otXSPKHTR34WWv9Lv2USKrfCNZLnHt7gR007ycBhCRDfTj5qs+uAVYivf WwrpoYRqcj4crnS00CzK ADTdk8z8UCBnrVU52jzyJxTz4qq69m2v+IhcVFPAR1wZtc/G9HDkX5IjdNDA8OQN8a5u8iGNh/YW1D5g rdeAp68vsoKySvGkYz4u RCHVD4fWNVZEePzcjFPmAtx+/TB5OeRHDNAubIjp6IGxcKwVsUJDqsAnax6655ivQwK2bg1r6b MGBF3d2gK612Wkga7+z+ 8xKEdfxYvDZNhdLEMRmAXWDAbwYhzeU7GBYFodrghB3oX1QWpDUpMXH/dqy2rwZYe8gTbaJ0CSN8E5OE FpUyme+YW874AEHNKZ6L NVATn0Du1g41atkKx4dAgU5ixFrdKdwkasEBg18H2kYvn2EvoIEocwLuFUUmYerBnj/Cl6KzhoUBZcD2 GW6MuU9vb1afcMHas3RH 1S+bNdxx5LF8+bNSWjbKkTStNdbYHJt/T1Cu1U+28DpQk049PYUrUaJTmhTjwGymkdd6zHF2qOHNEO2I ZTMEGSA5xSv6FJ11sWEh qFJd9qLfVkNhjXubmQDF6/SUwUCD1krywHYfYxkBspWVUoctH59H9+7uEUd8uKeGtxhcciELIxffJZs8 YXDhw/HdEJ8jPTiuY4MV MXXrDmdTTAYxPtFTjMpS7oeECug0MrxAp5d5la5s04nC8LJDwe0zLpBHU6S8f6b8beNuwpmMZEoJF9mb C379+7Grli3xaUGcvacO SqBhgT9bxn3SqPLib6ngFDV+ybZnl6Cdr9iVVTy8uE14zzzbkYhXGFCiLY96eszyK0Tt1uipyVmP98zg DWe8jK2a2XRso/kmQDBi kDXxAG7obaHoJWNvb2xGtivkCbzQ1881zsMKDNA+vA3WDhHdalXJYB81JG5xXcaX1lwxq1MTW8gOfrBF LHFMxzL5aCWdJGtUnkaD GQon+omL5mI45mt8pPEoQoPwWfRmZfeJPfg0mWdijb13K4yS/lCgsRZdtaS3n9yQ780r/O0Q8fBoMFCZ c2+D1lYljl0IyBt0PZC9 eBylrc2GzmkVZyORb1FmEl8oG2S9Qz4nee5zVs76h0sWQg1ZxtOeqrXTFCQzuFZIp+1dSspsRKJ3KoU2 Q4L8OfFy1nI3z8t9AN18 feteB1fuwQVxHxjFaATGDJySb6oTZ29nJWXmfTJcCSHualc+KLFimtNyPP2sKoFXgC0XohvcsycjG0cE HEDcIfGU0ZxpGJDcA6Kd Pf24CQggschtwRH3m4kt4h+Fc3hBY4824fb+pgaYjjuHOZMyU7N9RLRMNLBW7canOEXcWJtkpUyKJKYp eaub4YqmSn/jTPtBasva ThVpx254ndWW7jo4Z1n54suCbwvwAqQ4nbbpz0EfKlFCYKFShRdqOqyoYC7SLdzj/wMtCWtIUEqf/jhh 9IPctOyQTeRrqjRrQXJD 9afS5KxfYPkloNGp3FSvhXgXTh+b2JChMCFODOI9n4VloQjVXL/vzDpxIB0tgiEKUrYmZxqmQjLsu0f8 7XlNfYNJuvAqbflCddpb MrzUqEHD4XIFEt7jXq5fgRT6Tu3qg3ilbvYjHO0386ioo9EYxt/o0Ff/bUPPtKgoWwRLKBPXmtK9EANz Vd3OeAChn8ADPxkPN9JJ 2276VVuYZJvcf2nT7lE9nXjkDhYAyGxJsGyaRS4wE33/NTenPwTZrwwaXWG/DWH7MdHaxUbVMy6Kl6pF G3j90MiNoqwngRFWsAOM c6MgF2MAbKq7mjKSkmHBge2zK9NE0Ltyp84ygtb3zgdXNPhaRjbOuPudjz7YlMydKqxSKJk6yrzr8oNT twO4FxGM3ojeTZ2UgBWT kOWZVhjvk6OcdUfwtAFQPuEOBxNBSbToH7Xa11aQCsvuhb2zTbCuONEbkk2GkOPzV3q43CgHL6GllqOm 4K0THBee/CcxueYmN9Vb K40GMTN+sbzZ2sXCEpwh5d2Sz102UG8RdGl6VsIqNISEbRNE7Vm3aXRJMKekvjEyBAn3YqiDcbj+ySwz VQwhAtpcFpLgMxfi95RI ClY24R4EaHDx7za4siynISQYd9euwqxanWhBL6HnDPwEuZgzGpk6qiUjYI+qlBYYjkj51wQJjDre8ZwV 81OA9JUl8Px38UNpqP3y /322+XW09+SpVxyoNpXPl5W9zn/2WuGhpwhAmZV4P2egSPTu4/ZYzXT9/UiZmps2x3Xrj7sLihz7Vxnb YwtbrE7S3/We+DJ/Uevi RMtt1i59KdM3zkodhjRj++0463chb41AjA6Sr6NCjYxcHsJ2iky7nbcd/lCeCi97ZDCPE8Lu1O86vSQc VNNtS9AVbC3TOkwQ4rAy XSTDaoGsmuODQNDO8FPztHo+XyH5nkvMeqcH3TabjFcgwiDHDPbp2BIYIqmF8nCghRvsIcGvoj0L1Hud SfUi6KIBr88MYsM62jJL hzTuxo5helwIO73aXVsL5QK6vrdvd1NqMdvCGiu0QkkcTuXIlJEeIjHfnpv65yfRimPp6/t39VqtAtkQ n1e1v8fjxowSQVuNsLDA ef12MWKgqumVTBa2hQz6QP8eO0273jv4YMigWCR29i11IyE3xUy179dBEROJECVLp0VasA0CyDOdGubW wzodcFckdcaiNcCRC+ei PzWojN4VagKZ9FFW6qYXf2DX+/1sa+59vlFdF3MfDUkE7I+OS9HaLMkO1DdfNhxnuXeceAG8UrJ4gKNH KOtJtKEoA3P+xNC2474K vw+kA8m9qFYbXH1o6nsEDPs2JMu9uQ4WPnZ56dw1+3UfPbhZB3tPOynplLMAYx1qqk3gqMhwNfT6+KqU KGCV/wDd3qrutq5rHfYW TgZXvuO8sBzdVrlQYyfPWcpB0oC9jcHnNLzPF0ueLrm9f1cLuubFX3NsiheCyZySdKgU0s0slb1Q46q6 gAhfZ3cUPaGSW0hDjZzJ EYYD8B+wUD0+5WJ4QuhHsiL4dxByGTJVEvWl/Ja89IO/a/n8wVufwO4ehJt0x+XO3teqY1CZNavb5rC7 J3FSKfQu4j3UdUP7V1CV +I8q693pGIPsSBLeyNuV2a///8wttMJ9UIOZ+B9D8wgBoCug/fgQPdKNduVrpiSqHn3m9EHXywpcdBpL j1krOCHvTB01rs+4j7qF 1FxvKYsewCArx6Vx4mhGJSyPdhw4MJfTqSRVY4LlMkihEfzDRe4W6wb5ijDQvkJaPVN4Z4jWU2ryPTb6 Uu8OlEaddDOws184KNgN 8ewIM019iUDYoLeA01mpfOyCTkJ3YnFC2hc1eexFiFm8T+rhOsDZvUobIS5w2Y3dczNUzx71NM+gxVr3 BdERc3l78TdD30JU7AC9 Hg5KJYDbwAZfs8ErdRIry7J0dE7BOmbdorofxVqBM+Y9h2m9Rwb0MLKUZHbRKoEqNW2lVdUViJnAFCz8 0jcr6Srp3eInrJtTjgk6 bFBQJTYQ6YFVAkSFaDQfJCPWq+YgrzNEPWXceXDCyZMca9c2UpDNNZwtJuLUCCvCBbjc7SMbKPKP9M5I De8zSZEdZFUoyXUOsjVO EtUCC33QGcaMULtAEHiOr5FNlpopGlypcDWJFQ2wMIcKRWOaudee2pzOjmgR+dOL3t1TK6u8E+Ia0D/M Lcw1RhK26nMr4L6Bu6dQ VBGq9AqvI/qtkfIpdMoA5L14SzoexjE2ryrMEaiR+4f+qxFK05+VGko1czbNNVxKs7kBmlopEXeT+sbx TO7dCDi4IoPNifd4idRO sjtOti16tmh0lWtTmo3d4EPz1QQGBu/fn2Dg4N+PF52eNlLR4BrsKa2d+OULCeirQ1AtKULJm75+xpMn OPOqEIFLroAyCdKw531j zObEJiYvCwx0sRdhm9dIDjVNUTpJ4tNtp/CuQ3kRfmXzzK+vKxpo7bBpgYqx6wxbQSQcjs6//770hQYH 9JE72BSiybIAOYbOqO/G t0i3oW4d8dP8QBtjBAwcBL19/vdhSHF77YceDja49e4eeX4uAVGyIpAscRa80NbuM42qWamFv+X7YGJN hgbQMEnekynr3OtOBx7L hbxSnAdonJOiWvZ0qQ+3iTkoQhzn2/iRjxiGkThDJKhDQFmBJz4QEP+N9BpoXjVlmP6AbdGchJHWxMuG BCGYRjm+oEFCMMwDOMTL CNWbjPRt7QTirSYv/yVHzOOAJoSF7zQLPcENR1HJhYpIIdkOIPrCPNjsE+sMQGGqqB3doVKvmTS3oRyM BiGYRifYAHCMAzD+AQLE BLyHLKzBSIxYPIwZaBYfYNQffWXUjUIrhVNA5UORGzNFYrKUZtFMQkdJpjPOPOtBA7hIvXjWEC4ILpWx vSXbfp4KjXmwXKN+fn5k b+/p8wvU3GGIxfDwiddaGCRuBPYfbYRuseVv5iQOdyI9d8kqrCuscj2abvu9oFMQ0tlE3ewj54cqm1A8 9xzD/Dz9pYdMiliNJviA XNnpzz59OS+/MufQ9jpWyeOfbJueRkt1Bq7FKiELCU9FqyMeb3oEz16CPGkg8qsvEy29wVP+bdq1Yp+/ nejixah16+jf2ngt031U b9846311nqcWb8z074/JecPve2lDT9i9riuvw4hPNuP8hv1Z5uTwQmqH6gK3uP6iBjIPs8U2+7I4fz/N SAH1XXOyWjISgBDSiMiU YpQoUKFqG/egow9F6nS0ypZs0BmoVOc50NKhp+ibqrcbSEtZSiDEEXJshLz18PBR3yz6Crpo3yQuwmjb MHNEZoBmpjhUu8OFi5WG OcQHT8kyLADXxT1Yr9BX1aiW3vNWZedmorVKIdTWu+mW2+7SZnLqjCv5wHNR7Xaf/jdka0vkGaHK+kTM 4iZEPL4+/btjX79+hm9e pVryH08tXYG7RCJgu6XkyFvUIY51+ap0L+KcKt4jh7t3a8803JphvV7YppEQXDQvXed744/o9BAQK6sO DDQEIJYOoRPnjypUuSkc SBAia5nPH5pE22RocYjDRqhioZuDOfHDl17MEr5O0+VX3/9WwTqWdn6emSM1JjSYyxtbgpV3cpc9xjQ6 Oc8d3DRjPMnhEx1OdG7f fvs7+w655wvRgtFb3/2BvWEWEmVvrcbK8fBDPakePDivcYMefx992gBaziENE8auecVPxhvHtgg0eIoF VcMtiPoXrBkFgfJWh2sM kz1Xbhz8eyI82OgR1JgllLSZBU3tz6mxBmJzVRtY6gX/Si/4haiCSQoC8/PbSc5aF8VMzacF5j/T58+K oQ4sDvBh1lMi9FCiPRn2 aoy/I903MGN1CP2MsRVNOkkGP++MD4JOvBEDMIk0BG1F+BB17xiBc4s+LHHHlMpcvLXX3/HybqJ2gY92 Izks7dScpjuszplfcQnz l/Tka9QfLiKHGcDja98qYA/4vCWTlJUH4Rasj/1k08+UTEmlSpVuurhIPzLL7+ssSFOwXJvxl5EZB+PK 40GR491F7yw39ZPWvomR CuKoU7fRD7EX5I51Zi0sVggVPCNyw6rLF1//COmd4o9ZiPIBdhXxluAIaBpY0+xPdCSLxIL9ug69BWVJ xMfWopyGujViRk8PBC6m nxUR342B5UZpMeeJpzZEqHW9yTCd9Z61BDmAYseIC19mwDqVk4RHNwdc2nWTyCNPbZouE+q5oWpo2o8A qxu3sejY7MYUX0Dzskct HX+wkHtsAQawAy4zhaCwpIHl1J7d9756m2kYu41s8U12Le2KFNcIBecG8j7R//8c+LYaTUQl200ORhr6 2+/WEzxizz8uaiL50hyP qsuErjB0EOUWtB6pLefe//1ntobe5VZStul3qJtMayhBWJofNIyhTmgmlqAlyWR8DeHjknqlkKgwXQqS ItGkcYlOvCmqDqqPaD44 AOb0GI6wTofqH/VkHZg7Gn168lX2A+++nvy1odVpO9pmPBqvxmhpuIbYvszrmSuHyKwIBdyzDBqzeAd1 iYB6PBqNYiZh32XoYOkP QeNBc/Z0vVZvtCLbHLqboUF/O9//1Xn6XMzKqg3/B3MOS4jM8GuTq/LoAtzGFbybUPd0Yhi09IFDFgFI eJZ9wLhx6qfpn6++KGxd EcY5SkXObUm5txhfKpr16fFk1Mdf50cM8rPukxXIAdZM5CyMWwxxZt7zoDraYieqJu4KavEpKZhyf86G oWPV0TTEG+CY3QiY3yQK aVA2acIinQ7gXABzjzW2VKEz4Y7a7BjAQFwU+7/+qqaFIe1cS/37qgArXAVMbX8//82KfAE5r1vintqF gLVopQwELZ3SZUapNzUB Ni827HxTg5wHXZlNR9/BWKS6juXcINGz0cfQvwl7mlBl5OVWWSGvyna9KGuhSRl3s324sMDdrKGJ39+z sYdZHJSPoDn28tKl949x 6mfDp290tio8VHIybPEjXAEbzIjdBoWj/Em6vJOZANJcoQTqr02HKs0hthbFn+7DcHiRQ6T3TBzcuecs 12e9/7777ftx/WY40jTP JOjytsGMbrg4GBGhoZjsruqpJQZUveNpUUHQ9zUTUVOa7jqGHq6+ujwMmy96sYWou9WKi6kmFVtRdISZ eniCdF9mIB/q0mG1EKey uxPe0utm0474jWXQo2EkZHHio7tXcNJ06jzeGuu0R37rTQxwawIBIecEty6yOzMo+gOcIKI35fzwPUk/ am8H3IdQOhkNCRfnCS42 jsTIKhHsP+WU33VCrPrioIQMBACAkx5CgZGYuTX5wXpbb//lJvPZ05TiHIiIzbz0l028yF+U+jiOG/wL xIZJRWwvRKa3ovpci9pT QCP526gkeHidScCkh5wcUYPT+4u59ML5c5PJk97OXl1zpWU//zzzzKsQaWP+LwA+zt2xaQZuOlb/LTDS 4qSJHQ2Ja6N/kOZmJs6s 5wxefJkl/s6EOI2Qsb+/Me9ldRPaqk3bf1xBYiz0i823FbptMFNX6txNIw8c26sULBoajg++ecdXou+R jhUltYGgwaCyNGxAJVm5 45aRtr8gpJM3j1jABH1Z5lPwUhXQbO5ZhFaECINlAYbpt1GmvVxtP/+7h1RUgZMU6In949RXKvK99uus 9xaXf/+/VUqE+u+smXL2 vzQkJzhSoAAHA+m7TpBn6/VlYxpueJKuiNdnuHMjJ1XmFvWL03NJV0SbB8qqyio67ElGOv3HNS+QaN3h B5U53Qjs/APG4azTZJhM rf8jgHHVn0sqBYWHDLoyYsckXorzVyncCDJgJVoeeYJv5dprnowRQzTNbTGjEZDUPlkiPOMrCUBE4IAb d0qoLHNX32AV0RmtT6// HM2Pp1EP0/E3qXcZuvnKA68jl8Cbu+XiimgFD04pUwrDh8wWqls1xYElBWIOJL//EQFwUsOiWcqCl9y7 oUZ5viWPdxExoibjDDNF 61pErnO9jx9lK903slXp7FkZezJqbPZQ/TLL7+HlW2rYU8d5cNUyGVXAgQyPFpl6xx8e8J8EPMI56KRt sHV/huRINrY5KckCNjE9 fvlcsMwgOozK5ivh2iJen+yYuOpe1z97c270hXE7MhZA42EPyysQLCm2FZUXntOIpu2OxvYyiZ4oPVI+ 6FNOwxTDAVD4V21MFtoj 2iMemXFZM+5nwtIicQ3G9CVe5+hO6UewRMQQqvpn5Zi3yD++tThkof7TpyYrZS5jQtvsVNthpUwLAmAp ka0MyNVWXwAiHdsTb0XQ PZAK7DYxFdqJkRAJzRy4jH51Gk5Wp4m4qKpBtCfEAbk0qkDGfMkgbtCwU+Pu0Aazr7++knmc/ToURVjg qnWy1LPdk3nt+6KcQYsu Aq6RT64YXHyXjqlA3Hr8mfUP/wvX71cmJygEaBmdFGiyKWQelOzYWY98vRehBHwWhD7RFv43xWjvnCW3 OymE0r886TdVkFG3M/v7 NolSJe8anDq6DGRUXDpyZeXtnWFIvqsQR62VREtEQ/T1fbCckMTil+XHvV1wDhxgPtdulLTKJJqnRRzd oXztJAaJxg79SxIcBn63 3cwNZa3Le5VbEhqVrvdCHuBnLrtNv0mdelqHqnqGkBvneArdrBk7SnznRzsr7Dmc8LVMujCMllHI85Qx MeZ8eDgEkHLby9SvXakY 3Eh0fel3xYwCWa3ctEhlpiNOO5RT9+yH/uVuPrQeKkwz1U3RIkmyud7063GT3zJBpURncv+rF1CX3j2U g73fFzh7vw6JkDMqLaVg Atkinson/J2C+AtHZAFl6yHouWnl9xd1xZ7c6pkaViONLpeel6vFm7DSZSPvxyKY0CEITzTU6FEVm6X0UEuDFN SwTD54vIGUDQENpRRkTE qgqnoIqbDllYhQEkwCI8eQr6ZgroImUzfu0V8MQYERC9ejo+M2nzFhfucyMB0S7NEVwAPE7Q7BZlkYIX JFcsljUu7iM4oXRzuZlj SjBapjJQisrKdCbkjjcIKWzNzxvsuUyzxGWiHtKNZpO9uNq/G7AGPyVInxmbDYShyk2Shb66y1ae4gTC 1Nu7X+/yY3Lxp3qRIovo ETKV0ioVKOFNAMw6x58w+0K8iIbURcT0GniPHxTJ3ThBAyCHWzXL9Vv2IVmGTcz3fXZyfLyax2TLb3Ag GlQcaExgXtRpUoVWSmhG h7QzFsnO6/jhGmeBCH1ugLPbLQNaGh9RhGZwEJoK9ve8g0T3twOhGvY8QleZplIG/CBEBYalaygMJESz 5Jr0wow3CdU8OaWwWQNP sLNo8948MsfsmKNSNSEXhNoeAYfVMSvMAP3SrmyiTqpdjNyfyaIHCcSXAGJpUW7Xo4+cag4yLf2C5h5q ir37oj9oxXO8BtomNSUW ++jfpTKOYZ32lIhASu7gYzzh8KAQdz28b/Hsltru28AumE26HaY94NdEcbH0U3fs1BPA3AUhgJJmybL3 SR1gVH12DPXIkcTuzcWT 5iPMEkYgbxE50robtrhJ/uuMJjOId5+6dQfk3E7z6Qg+xTaVknluXMwWsdgINTsbaofGJ225ndPSGUyR D3esZtU0+jL9Ltq2eqCS 8Q7G/z54cMmOcfh9yZ5vHtd7ZlMITM1UVJMxF5q5VT2VdeM15Y/2U1b0+J3oeLLtkvJyRQAfope6BG9/ 6fwdSjr8JoYm2B8tzKaA sVRc8xCZKp8YrMgOTqTy5NA2hmOMqp6TRoFxnsgoGr1LoC9sF07SbY6AkM3TYvR44oCA5nrBXZfl0V3b nRheZfagp4/2YwEay0OI 6NqTHdbX2uKBPiLZKqR2rzYtUIo1Ol6ACG/1PpceqaUfuOVARbAf51+ba56hgv18z6xKNkt4mEHhfWnw loDidafSpFducHBlhtCE I67sP8FCG5FEBEUFS2OtSIY6AWlQzJcAG/M+3MqLJOvY1b4dYbXLd5EjTzEfdzrqK/j5zXiczXNtngWJ A2fIS7bYUrNxMJaML2Pl huutQDR1+eGMKQpGphvgUwWYD9HFspcW1oHXo4ZR8LQSMiepAcvPvgprkcv6g/LzlXrJNcix6059auRJ tCi5zlUhHIBI6YPlp/+K I/3Fk/mQmC/x1th8vehsfMLT6UALp97S8jJQ9F/mckrojjWc0pfx1VijKSDbddV70EMF9ITzUWz3ffOj CaU3tsUsgQvtgmw0jrQP QrHPalujDtgOpLR3i+jm8S+vcF5gx04m72d5VCcOmvsT5Bcd3gnBvZRczA5IyP8eLYhJ8ENTABlI0yNp UMHp/4trvT1rX4y+1t4+ +23U/im2gY1J/IUOot4euiiSXiGtHT97yJJRMvQ6m6r27QyHuvBJLBHDnWrS2iPut8HqetO1iYdZZgGm gXz8IQDCBCGqjlOsdTim n79+tkPVNgJdy6OUAjHAa7HC86G7646m8cnTZjBbUakn/xSFFBz7V28X3Gerboh1kxio4jOCP3kRZdEH YKJgRF94iqvs5IG6nroS WUTw5SqT9lfwSpH7ofDx4M3feOkcXJTlChnTjReOLx9vdWPtUaQGnnkgLc0ryS65OsCkbTvoyR32bSmo O4c3R/pWJGTgOhlnbs64 8orOS996ifP556ebJ6EkPJAhCJH8KHB75E4fkjBj8JDlLUv+xs7jvMHO/isP8fR5vO4rt1h4GSmpPxXv YRngN/iCoz/1I5M6UM/O 9OvMd3j0I8nfqafIPgCbjlkNcZDnnazObJss/cB9Q+6LZEG6/NdQkbR0DpeY01fRMWb0wNPHGWhvBHVU EIJi7/4d3xfeoimtxOqD cw/W7Z4HpM9HXb1marahLqB7ZnpON7XoPliJnAvM6B0yB18d4BgoJ70XgSqBMntgSA/FND8+/wsq270H 0/NNYBZz2Opvg4wWUTLs JqMLiBM+vkngIUHWn+wsGL+PgX9Oqv3EFuoijJQNAYLIre6gGdiVvyDJun1lgNIm+JdqMaSRs2b48eIx elpFDuZBHnn6RHZdfOZe idYgDAMwzA+bUGGXLqI4VcTVOsOBFmSrUVxMBXmnEGg/7Qb1NQQG052LECCCQtEMdBqWcFL></span> </div><div>
</div><div style=text-align:center>
< /div><div><strong>Patient Name</strong>: <span class=clinicalNoteMacroWysiwyg id=[id number] macroname=PatientName spantype="macro title=#PatientName>ALYSSA PULIDO</span>
<strong>Date of :</strong> <span class=clinicalNoteMacroWysiwyg id=[id number] macroname=PatientDateOfBirth spantype=macro title=#Pa tientDateOfBirth>1950</span>
<strong>MRN:</strong> <span class=clinicalNoteMacroWysiwyg id=[id number] macroname=P atientMRN spantype=macro title=#PatientMRN>[id number]</span>< br><strong>Attending Physician:</strong> <span class=clinicalNoteMacroWysiwyg id=[id number] macroname=AttendingPhysician spantype="macro title=#AttendingPhysician>Sarah Coto (Gynecological/Onco logy)</span>
<strong>Date of Service:</strong> <span class=clini calNoteMacroWysiwyg id=[id number] macroname=EffectiveDate spantype=macro title=#EffectiveDate>05/10/2025</span>
<strong>Referred by:</strong> Dr. Coto

<div style="text- align:center><strong>PALLIATIVE CARE INITIAL VISIT</strong><b r>

</div><span class=clinicalNoteSectionVisible id= [id number] internalbreaksection=false originalname=Chief Comp laint recognizeconcepts=true spantype=section suppressempty=false>Chief Complaint (Palliative Care)</span>
Establish Care

<span class=clinicalNoteSectionVisible id=[id number] international broadcast music librarian albreaksection=false originalname=Oncology Diagnosis recognizeconcepts=&quot ;true spantype=section suppressempty=false>Oncology Diagnosis</s nava>
Stage IV SCC of the cervix

<span class=clinicalNoteSect ionVisible id=[id number] internalbreaksection=false orig inalname=HPI recognizeconcepts=true spantype=section suppressemp ty=false>History of Present Illness (Palliative Care)</span>
This visit was provided via telemedicine with the use of real-time audio and video via [employer]. Alyssa has provided written consent to conduct this visit via telemedicine. The patient participated in this visit, noted that her home health RN was in the room however he/she did not participate in the visit. The patient is located in their home and I, Dr. Carol Branham am loc ed in [facility].

<span style=font-size:11.0pt><span style=line-height:107%><span style=font-family:Calibri",sans- serif><span style=color:black>History today was provided by chart review and patient report. Cancer diagnosis began with development of acute renal failure. Admitted to [facility] with this December 2024. Found to have cervical mass and bilateral hydronephrosis. Biopsy confirmed SCC, PET showed disease extension into uterus, bladder wall. Completed concurrent chemoradiation with immunotherapy, followed by brachytherapy. Admitted with complicated UTI earlier this month. Treatments have been through her local Oncology team and [place]. Anticipates a follow up PET in June. [...] internalbreaksection="false originalname=Medications recognizeconcepts=true spantype="section suppressempty=false>Current Medications</span>
<span class=clinicalNotEast [facility] City HospitalcroWysiwyg id=[id number] macroname=PatientMedications parameters=ListType:Bulleted spantype=macro title=&q uot;#PatientMedications(ListType:Bulleted)> </span>
Per outside Oncology note,
Carvedilol
Loperamide
Miralax&l t;br>Compazine
Trazodone

<span class=clinicalNoteSectionVisible id=[id number] internalbreaksection=false originalna me=Allergies recognizeconcepts=true spantype=section suppressemp ty=false>Allergies</span>
<span [facility]=clinicalNotSt[facility] [place] CampusoWysiwyg id=[id number] macroname=Allergies parameters=ValueIfNull:NKA spantype=macro title=#Allergies(ValueIfNull:NKA)>Cipro&l t;/span>

<span class=clinicalNoteSectionVisible id=annabellaio [id number] internalbreaksection=false originalname=Review of Syste ms recognizeconcepts=true spantype=section suppressempty=false&q uot;>Review of Systems (Palliative Care)</span>
<span class=clinicalNoteS ectionVisible id=[id number] internalbreaksection=false or iginalname=Palliative Care - Pain recognizeconcepts=true spantype=section suppressempty=false>Pain</span>
<span class=clinicalNotEast [facility] HospitalcroWysiwyg id=[id number] macroname=PatientPainScale" parameters=LookBackDays:All spantype=macro title=#PatientPainScale(L ookBackDays:All)>3</span>
<span style=font-size:11.0pt><span style=font-family:Calibri,sans-serif>The only pain she currently gets is at her nephrostomy tubes. She will take Tylenol at times for this, [id number] or [id number]. Feels that currently it is not severe [...] type=section suppressempty=false>Physical Exam (Palliative Care)</span >
<div style=tivb-eojsb-mbzn:none>General Appearance: Patient is awake, alert and oriented, in no acute distress. Patient is dressed and well-groomed,well-nourished with no evidence of self-neglect.
HEENT: Sclerae anicteric.
Respiratory: Normal work of breathing with conversational speech.
Neuro: Alert and oriented, no facial asymmetry.
Psych: The patient is alert, attentive, and oriented. Speech is clear and fluent with good comprehension. Insight and judgment appropriate to situation.
</div><div style=qwzu-oxzvu-ljzs:none><span style=font-size:11pt><span style=font-family:Calibri,sans-serif&qu ot;>
Comments on Pertinent Labs/Tests: [...] the guidance of her local Oncologist and [place]. Please see below.

<span class=clinicalNoteSectionVisible" id=[id number] internalbreaksection=false [...] spantype=macro title="#MyRole>Physician</span>
<span class=clinicalNoteMacroWysiwyg" id=[id number] macroname=LocationPhoneNumber spantype=macro title=#LocationPhoneNumber>[phone]</span>
<span cl ass=clinicalNoteMacroWysiwyg id=[id number] macroname=Locat ionFaxNumber spantype=macro title=#LocationFaxNumber>[phone]&l t;/span>

cc:<span class=clinicalNoteMacroWysiwyg id=macro [id number] macroname=NoteRecipients spantype=macro title= #NoteRecipients>Axel Palomo MD</span>

</div>

<div><span class=eSignSignature>Electronically signed by Carol Branham MD 05/14/2025 09:56 CDT</span></div></body></html>
--- OUTSIDE RECORDS SUMMARY | 2025-07-17 12:46 | XMS_ITS | CCD ---
Author Name Interface, P0Locnumt lity Address [address] [address] Organization [facility] Address [address] [address] Care Team Providers Care Sole Dyer Name Role Phone Chica PALMA, Sarah Gallegos [...] Ordered By Specimen Source Lab Address 04/26 [facility] other lab See attache gomes Medications Date [...] Order PET/CT scan, sku ll base/mid thigh [place] Ordered 02/02/2025 Physician Order RTC patient teaching RN Patient Teaching Visit Ordered 02/02/2025 Physician Order Radiation therap y consult [facility] Ordered 02/02/2025 Physician Order Immunotherapy Monitoring For [...] requested Me dical Oncology for chemo/radiation at [facility]. Weekly Cisplatin and Q21 day Pembro with Radiation at [facility] Ordered 02/15/2025 Physician Order Port placement [...] clinically indicated Ordered 02/16/2025 Physician Order RTC [employer]OT[employer] INVENTOR/PA and infusion to start with RT - [...] style=text-align:center>

<span class=clinicalNoteMacroWysiwyg id=[id number]" macroname=PracticeLetterhead spantype=macro title=#PracticeLetterhead><img src=data:image/png;base64,iKMAYa8DJuvCQVIVXRvMCdQWGIWYZBBxQVWLHNL9N1lGO HQJUBCMS2CEzi6i6SSGYGPvOX0PUVAjdtq2ARSPDVZUcEdGiiXKCeYPXU2NGGMsOecHTRxSHJYWUCbd9 N3PsPG6ZliGUxofsqS7O eGxToLJCTcvQfuGZicZGASCXFGvFbTZDXcfWwnEoETvBPWH8YqaAe0QAnjmH+u8/Ppw0qmx6s16X98Ik dgoshsisWnYDbUD7zhMu YBOGWrSBogYfhDfJ5FpDPH6yM/wXfxFPNkVlNPlUDYvlBAEDZFqRGFUCBQSzsMDa3UZncQCt/gECxCGY FiVZ6kDj1XymSc8Cd4pp ZcPtEnljzAWcYJpm02TUjivDSRTn3efCSWAaZqjbUMvXg9qN2mBwEhsUN8fhIDMejw15wlwxlOT6vzYC Mi2e6VMx8twaRx07hRHL dWtLhFu8I8uAwxlHnMPNFk5XJvF3ffbfKh9eUnzy8pCXqNDVZnYeQiJixkUWNjEsdV4aK0xhd20fFRuH /HnEQebp8OUy4yiz2Pb3 6oQw1x/sABhrlu+/yklbz3233Z/eDOSjIfpGyvFf2rDCsQnpinlZMKLGNZI+AdQYHAQBQQQrV7+EU0e+ cUeCVuD22TKrkwpWw4Yp 60ULbL4Fdgro2+wJEUN2d+xRx8a//8zMgoVLnSDCxNMh5+y3X9LKikEb95r+9ZkXBhOohFZqQ50wWerr Tx++/btVL9+felnmOsJF iDMdUdGRgYFBQVJ/uRLlYlBdksMXtkSXmWMLQpXV8Q3Xy5dg6/VK0MOlk1iEj+KfewjuHTO8buFSExeX SNaU3s8jpfwkeOyTQ0f0 Kdso09sW0KUep0U114kPtJS0GWVAVsxCRUdmfVfSe0pdPq8jI81QHEpGuvVZS+4tk38bAeByLgbsW0zg IEw/wpWrFhB8+fPp/Xr1 8RyQdAMjYmXMn85fAQbktpzvHVV03MqCHmR04S/potHhmj4DkGTJTPLeSXQlR1rPqLeNOXZnKNmNz2oa 81wxAumVqNiv8XiRDL19 AJlmIBHD8hhdi6FBjGTueMeofXFnbPXYuIn6Lf21ez3MCrCBybSlJqkjDzJB9v5/IJaMUbi5dBhRg+6s 40agkscXrDwiCBgWvR8D xVxLlOeAuWh46iDeLSFPjOEi9lndE0UwsQ8Cy4hy1c+kxw8UPZXFQDNbHKXANpdEbYk75//vhQmDFNQ4 O4qyuYTgRHlRVMLZ4TxS 4vKjE819crlhoGjQAc82bamYiW7M50uEt4e3s1eki+cqBwSM1eawccQw177Jy/EavuwTr9kcVHInBlQ8 uGMLP2VIDJ3PKg1Fha4N pIioqLpu4+Y9V50MnD2VG+gD2e+VkZNm0jABN1RHb3Q70O3bD8eO8O6p++W1+nTPVcTRl83QV5rzQBbv vuHoVDHDTGEpbHdtdo0m GtSSzo5lmI5uXmZRWHH1o0+q8Os15sHR1RaVrpUi9762h/IMNadTzO+TWHMewTy405WBqMYe85KAsFBB tnSt2/k1rkwMk2LgIJLb 4VcaPskBVjdubIzdx04ba/VEHaCqSVQarTUbhYmiS3sObS6BNb23GZm2cOsB2KFAgiEEvVNFnzie86/M NAY/pK2L0qUDJgWQjwDF +cafn7+zk5FTaBSecYVTGG4WyNueYA7t47zp0UvEyGZU652X9HeyMJQAEMksZF5dZAJOByk7EpDarNBt 5DlYN9ALu31EkzNqlSQY 6W/zu62nHtnGzm20VkgqGRX1ihZk2j/cXse9HEMGwzQs1XH0fuMY0tHyb3sjNlsQYITl7PFFdLveYwu0 nfifvsR1Nz6rfTatz89G n1aQYYSZOh0A/c2mD43yNSGHOrUyCaqXzxWX2b++qpf7vdfwyEyY4VdhCrFDIlFQCJpMPJepOODiaQEm QLWTZgIiMUPf//9dxXrG gy2//pkn3E6V0WPbzpyEOh3ncjX3bVVfW6hzvgEK9z2uwUZUKc+/71XwRsUIp1icAqUZVzZrpH54MRBQ oT3rEwjm22+lZ3OF3OAk qJoFXzQJi0JFM6sjdarayk6rPdHipMQwXezzhbxez3SHZ+Ex+QXiX7/g+gJ5BLcMHsTfKgK8ZEYV9ukO kdrRulVrnnmPv5y6qrvc Kp18WWAu4/E5DKgC2zCNTsQgaKni+pH4VEP7KjLrfDH4AmIlXHe79uXfXllU332qNn7v39iYjDsKHJdb O1lOmGYb3LKhGTY1SnkC eUqVdQexwwdOlRuddeZO/SAspNqbx5JwrX0YuOrNDLGw4+rMJSXalmMfUoK5DvttgECxbcuOmNMuCC3/ PhxGd+fYiJsx6gqStBy0 hqodz9SuXuEdUTGNkcpjv+TN94kI8KDDDMcObtryDevzrcOaI8RBWogRvLFdfssTJRuQTQdRQszgpw7j NG/m23FczkQTu0skIf+c bM6oEgEHcVwBCT980jSXiYMHMg7NDoJmjCSv+1kbrgEhwJYbe7UmSyetF/019ZC7lq7vJcHPHjtEwVIM GP3TYcQMJ8IIWoEIz9TL wNSSna0a+quX8Ih648mB7157jwED3N1o+2u2x4Pf6ziSlif/jhXgYwHOOeR7Wb+3ZpGLv55wdDJRnhH7 wERGTpyqWkZlJCYRCdPn ub9Veqrq2wPGFEg5iXi8bHarER45nunQ9r6wxiZFVWuyDAR7l7FOio7s31ENPjhZJ4NMkLUjph735bHq fGTF4ByK9jN2LXjcxTwC WriwAA/ChCl+MDhwzTsiScoICCAbqhRnSa8+UBe86aNowzmd9/HgYTHQTXizA7xkGyt6AaIScO1uNunT 7DtQCdMi2LULjfNMxZaa OGwtTr/oAAKDQ+y1dMGDKlTkKy6W1NwBanAiRCWD7lawMbg/cSkjVyS9t0+cLDdXio71zrp45x7nGbkv LGhV11kt4lXgEtBeIpFD Dj+fapfQmVpZncMUnUGZEtQYSUeAESZOYRd6Xv0l0snrJle0byv4yJt5x6FFPzZzEqO2df0L6YQEJR7Y on8c5H7cDgvimu91lSUn aPTHtTtA1gVjcrCJzGplqn2wlP2ZOup1GdR80dvSP1/c5fRf+PUAiqqELjwebhdI6rzJigIKJG2fHm6g mGY/L5JATTHdBo7CEcvg qJlH+eokDvffoex/rtbKMqXmQFvO1ZykbPxiApNgcWjm2d2U6LUTWqQCG8EnfqMFXtvZkAtO1+BzLtpo +heRZRIxXpqIpyi6v82q hp04983nv8prc+MkqVKSz/YTMX5QlYQhJGw7QCLaquQ1rwzPdUDYI7L2PK/yppkBhFuVVUrc0DSy0yCD VP7kOHD57yXR0hubpK3k nMLbVy/gZIyDWm+zpfVVSALhSLL83LelFJ7hiVuAqYipWEhprW9+KSTWqXDb3PndAXXy/wpUByTkJZJE 5gNqahGS1wMAJnNcBr18 +9XIYbJ//LKGJDegOkSuDAIgyY6dVkQXjgQICz1fiQoeM/QxEWquCjPc1wVBon0SSS7yD9dR0nXlMGz9 QTSl1WUC+MQRUb4xOVn0 zFpK8RUw/3444n1i7h6woLRlL6DKYcDI3YJ+w+Jg8L4EIXJ9CGrt28BN42bKQVlMVC8+w+W1VQIQRvmL EpPXLUXeXcJsrfo7gwFY AVvTgiZqrLbVHJchEl7f29wFMx6SWhfgKOPjaKMYFqxakjJtO8pZmCaWEMei1q4IN2I5WzO1qM0iMx1u DTi5GkxlMv+nurUrUcLl nKGEluj4P/yqdB2Sn3T9perzwe2XKxLRsAdZMQt1XYDZ2hUyG/MNSyrGoLDktFR2Yx8j6qww4Rv6V1bd bZEDlKMC4vL0+QWVkxYX 1x6QEzZtci/TaHN79wmhjyCc0kE+FsEB3FaMLTPEkP/BYw30VZufZUYgeB2Pj88GQ2TFF019djDC4zE3 QNrFP8ctOnbs43WkoEj+ gQG1SPOJVsZ3mJHV7hl/UtYW7RPhnGkOw+eTQ89+KT2U07zEYoqlKv69Eqnst63LOXKGwKUhs5OPSwTi sIRMvqGpQFzRktEUw8Rb 4WGhdGvew/Nxj7jDU538HVfSOofBAkbbbVDyBzuQGl7DOMeMt7Oa3iZPyhy+7qt2sbU0V88W3YzQwUzG 3MbyEcsgiEI0OgS9+bNk 36GyY/wAPuEZ0SAsosalBW38z/6ZbrvqdEUd+6lZByZaHbkQHdSxbIy6KSurTi/lk4nZX/bNTF8mH5qB 3t6DxFW8b5kl9ODQuRmU CblK4UkXAQnBRCgcUhiMh1gJMlv7HbkJwNWNDoR06WUiqPlso70j153m8b/nteZ6JDUVdA0DrOPZ4qjR oqQw8dKjHnZztF2pXLeO 8g9OYdEUh+iv7VRs/FNNHXtFrp0+hz6fGT/BBKdPBuwwAPqU10GVxt7NIFPJEUTlo5+gQEUEhIgKuYwU FTkANbuSB3FVeDxAylNG v43lnR/gl3a2EOUBHkGdn4C9BB2/JNLUl2DoHwZJWC8QPXnJ55C8PcriHmXMcKo+z8p/kFRbvG5IO7/K aQjTW5y19sD/f1QhfMou uRHuAuLyXcMHDhQ+LtFe6oTLa00LCzECOHuJKlzhefhd3Pgu+X+esHtkqaUpFGALDC5pCp93ezNXdkPF 3jt79JlIfEr2/kPg+U4d 1O4gJiE+LhLdM/sk5MppEbYz2ETBb7/1DC5r+7SyrtvSGGYU5bppv1qkQPY7utF9L+rzbG30YSKglMKD JOvgEns/Licaf7Hw3nwp eoRVlJouW1TNkxuKWdHjGfJMr9jUaw/XEJHzsRRTOFgeuPtObR+dFp6C7lhjMpvwYLaNzeQZdclxkCT1 JQRmnImDeEbyeDA7873W b1ZqKcpOtAu3Z1I6IZJspanACglrLysaMm1UOsvS6vseYPk4ExGxzSRrztEXYQME7gf9ESEkrVYMEMgB VMtwyPTmoz4YAQsSHJzC GrnKLNa9bMiXBpRuJgUUaXDxxbEYbvthcneCtL7Yl9fTRdaSi8HIz+N3xXoMDO1I572E1SK7pmnzz9Oq KP1uUv1YP/onSx5DRAxT YviWPpQsIHclUJ5wOaLgeuPM4kjSrIEyVX/88Yh6bswAGj9remBj4SWuPKgbaPnexgQsnEkfkGitOF5a Gne8t4+NHM4DY83jYV8v 8IuKcPPIxSnLeicIgWoBta2Mkk0/q3O4l0OFC5gDAtSGipV7RscAQH+XkGQhvgaQZ1v0hv/G8jWwtyNM UngqbJQDqvAlqj82ldaH x/W7F7VnMU9WnziOFDJhDljHUG4ZDjReJtPakyzdD3AFqICEiygzZe79CW+egaaxDmGQVSMH7YNZi8WW Rj/wBMMsQtURHPPqAi18 sljA0gAfiiOAc0mlQyE1PGtZBEvpndpPIIECNzSd3RNW5j5fXz0GdKcWQDBmCO6n+D+cmFbVvWA9QaOi QyHxW5fIDjJJaQZ5xYYf lS/wBgM4C7+cwwWDt2smJDz0R37UCNdG5ZYuDa2p+vn70/i4l2XdXrciUAJdhkHsnP2xBgXBFqZ65ROy x1tlVfHQnWvW1O/rATi4 k3WDhAaJ19Nd6Fg31bKrnehpkeM/S008Euo/YiuS21o20PayOaA5Y5NRpqlMwSWKsUEImYQRYqRG5y1q sFLKFhXmdWZrCNjGK6Mf zZdpp8/QEEpBl7GEMNRKe/I6D8WnNT0xmEk0EPq5dkChrYGHXDsd8kab6P4GbsjI8G/5g/kI7Hy2Rqjp 9tu2c6xYR5cZoDt4YWkj Mj8WHXGk51Nloj4OG/JCzyefpxSEtdFML1f8B5fBFQCbN73rHMmNZ5rnh3ZcSiT6zJWobOm0FGA/AELE CZfMWjQIOUj+v3AZrBQK pNyGGpf0LE9Jwqyaci9QX1t3FFPWXnImk0UzcMdBw4iYfoyXGhvPCop1jn4vZ2i+Dc6/BTceex6uIyEZ 703k+ipG5jd5UGNUn8yi +077AqpSUnK5UCbElrEkBJJRAftxwycVGT5uoHW0OO+mtlxI3BxJ2kiVwDdRI++PB0/gnjVnUyT11uRU +XJH3QDgMb2TSBmhBDBG yD1mtxXEUeO5ZSMJ7SHKpz1SQRxszlJqxFmT4VkVC9gHPvgc3EkjbP+BqLOOnQZGEJdFG6ZvniqamnBY tKOv+SE2LQqGHpTsYGtF zvCIqukj6SPeKadQjOZYiQbVWCBNDVh5EpLDZF5QkXbRDtWhm/ETLkK9qGAlHmvQEziZmVyvxqHuiQUJ wCk87HTJlME1LO8iiEMZ Jp7xk+n7EDICe3GNsZ0wJAz/krGoxWfEH+JUCWjWwjjJ3+vgwYkrkEKNpMhi7+kLCFEUoVASElOobtGm 7Euy83kbecEbsMCtRFU/ csCeLN5q7+GueCdF06vurcsU1CYhHd9tBhYxgBi8+Esdras+gadfUtFqnVHsZCfwM8P7BwZad+xQoqJARJ7 sw3LgqVpaPigyGaFX+6h do/CyEidfpqprv5ECxGssCeyx43BK1cPkZ6x4TJNlr3JkpWlHTVLwXzgVBTsR0M+8g/GIc4xzaItdOfY diYimu7RP4Ynv/tp29eG y+BVQm3HYKf0UY8NGT/bHAKeVag8vFGXcWw/1AOSDz7X+hOkTAYPVqqcZaXOtmlPxhjgUMY3Jb+MrJQ+ StctyD23qw8w7Czixdis anXO7UzcyGtQM+c6SnWIanitjF92BBV7xd+/zI5lL5beA69eCRRq8yMT3oC3azIVYSnBEQxQS7s07ixx iED1f8KVOLd8HtbQrYpH xTk62y9m0KhAtSqXEAOzCx+5Rm2gZzPTCbrjp5kSiXyQXHPWIU/zHtL7r+nzjWBsabnt6pJDeWhw14mw 5wsmRA3Nu1oWOqUQT5P4 S7+YzLZ8ts8m98dqIU4qweb5PvkBFCIpii1jpDiyXV44DjAbJPBUuc4qkqF+YuYFxJfyLgfGXnFN2sPV IVAhIp3b2ATD/+U+xkmP 7WMqZgJXC9+TPy3saKt4uZIQLhOcim03cwdZUbVa2NSbrlUgTqdlLWgbhY3WWTZYloHswkVQJ9qsu+SAMI jRigCLBVcybo7niTqFT2 7L310jUI5elLwJDigVuygRB3LcvLHEKsRDEBV9IjZvKsQjK42DN365HA2fNqnFaJ5uHuPr2bpQXa+RPW IAw+LSlHTj080/T5Mnmg YXza2aVNqm/bxBlBgVRpn+HgKkBQtMRlTGMQrn7lwr44uyiOQmc5es0gqJcmoTIxFGPSLhrgWtxnihTK MgqayN10DAVFGEjEMrlX gZVtIoHCsOY4EMuj8XPaUSYeMfAE2BKGYZL6VodF9YwqlOj0Sh1d2IfNbDrEYYFpCg+tUKMHIuClO43r fMkWmX912KF2giDN1Kta KaFVIODoMTYzKyrXyrW5cCZeEFZvuciKscr6qrJ84zIQOMmX7Ee3RV0b6M2shRiL2urHrblX/mMholzg GEHVtk0Df4PMNKIKoDni yGWBJn6cMDz7n9iGxsmTcR6wOtb58NdVXw2qsv1URt+LYjycsyy5ImAJp+DIqqFSXhYGCWnpVOoqIBT5 Sf6fOs75XgS/zOCStZrQ vbmsPBEljVZetlH6KZrqGhhux5RwD3+0YdM44sVmeEQa5BfXzbP5Rt6Do5rVZIfaB1iX5KGQqbu5KTZy sgSoE2y8GnZwnARnkSNd QtKNWFEyX7oeK0+siI2qltRwr01WkEDC47fji3kmxwYZVcgVbmhcUcPxcLQtrxOT9strnHwhEU6mzT2N 1Y6vxbGO4xdLs//mlb07 ljcOnIrwM0QjYxsg9SH6vELYg2w1W5zEsdyhdEIbC7/aPjvfN6bcPJ0GQGoIHD7Z0SH/m9HX733iSXIA dTt5KD5y5fX01XwGYKN8 CnIRmfGpnPbUJCnP0DEA4ub5sbZuU2TXvmnsj9q7OvpZhDsURomte72BDFWx2RnrH4DQAc2p4DJvFxz7 Ny5k+rUqUMVb+tGN09+T 6wbNWPS7z+vh8opuJ/SiB0wnp9RpnxDLVLxRDXrAupcnh/JjEyg8itcEf5COtrebjzGKeDz3DIo/OnLZ MHOVcG7oo/Et0nOQdKg6 Szu1ZulzK6lH29PNiz5gN2/2J4nzNAThRrEhJWpQ+uS2gZa3Q1ridoAI9sibyfKyGeB/vDA2lsRW+jkh l5p2954AG74AX6LOJryF iBMgeHTTz+dianne+++qaxh1XnzohH9ZQpB3iqlNGwHb5BpOF2MBs6tcv58oiGDc75UsELlak3QCqJegwhFK I1EOzavjayV87eeY4jvD cOXpwRoMI9MuYEH2S4bY+K1w+SPzOQqKe494+cQ9ku2pOpglT4ma3hRxf8jEiN5RVVoqYl0dgUzruPET q8YKnWNSZ2gccgVNcMYB TSrTS77ePQdX1VSEo8cYA60vfufoOROZjBpaWQhFom74c3qrzrI4Q+YbhMgqIVRjA1/fyFMgikwJFzW9 IY1v7Jn/bwALk1Mw1duo xyuQjpZXcFiRvCc9BrePLGWP7LYPXETDC8LZn+PhzStd8CGk0OGLXgs7FV539H45ISV56d6cz+8CBnpy WQIDanZ/N4ejbfFVxFPt DfaELfJjFJsbwqVj3Eee0jwlMxciNkjhHWNocHe/z3hM0And7pVYQEOfUwVNr8+wNy6mXzv0PEcVi+7Y F4WIacSG34IubyoDfKwu NL6hLXaJs4/xi0kc6eTBg6C3gY4zOY2c4e7yO+wqXrDOFuMLowLuwVqL1MFytJQaaXNv0hfyNuJHTDsZ soAh4WAAYjJ7KPFQkRUR n+5XeR/TikzmA+Op03qVaMMeHP53r/aJRV1U8SbkROa/VxVVRQKGyDrPpppaNir828R7tQcCXEaQ2BzV KLYXOvOM2BYyieKQAgHo UWM0RIShhSaGIovh43YIbTv0s1Pj6PjWHymni4PSKGFzvF1L3R8ICrwemlkSwYPSjRyKpElb3Wnoh2+J eJS/GjqRJVIUPI/I6nu6 q7E9c5CQVfpKZl2863xfXmWPxFyNdsKKOVoc8JWTjytLyKUcueTZCB6ooP8i6iqnoe+gZQgtCVQsmRJu WWYggBrIEyBAUubVKtWT ijcrhhQjvCIIxu7gveDlI7LIK13dQsYUYxLSU0zsJNey4aZ+DgCxt9uQAKOKRKwHnSVSJO8dArU5Rqbs dZ+K/wTsElVzLc7Qdv+R wT8qOx/O7HVt2aYQiHE7lYhHo+xxRcQ/hVc8OPmMjf2c6dRlm20JMJ5YyAwGUatIkryrIvobwxb7LDa2 K/30pLEYZ29UO2rweFIN RYgTIFCm/RGdBtAsU+/JYifNtFxWmZ4x5Cnd/aszvt7ol89qTrCzwvUok4mwzRfaWSf0y+JWaWL/0PCK Csjjc4/NYDS//oq3Dnsx He13nhqgsFzjNOEosK+kDj+Mh8cZ+Z4iDHDb+/1V8kTzZ1MrM86jzRA5zJKOk/2rBpv8t0e/6gYSnzpC UpbvVLG8+qMCSK5V8koU CEtoJ9EpSCnOhOoA6nR6K9OmXSYhQzUxQBJe8W+gaPtZfgDj6RB5L505GDJnn9PbIZUGz2fSPMfYWz1Y ioomQWROEyURcnYVo65U 2U8q1g0puQiX8QR3jXfLOpuEs8W8iNI3FDQM5G9jVOXhsVJZonXclxc6tFb29pGNzDEhQ7uc3GldVBed X4Rn+gfQPGnjtuER/Pmz nLJWQwMFSHQLaQ2ekSTnrpobL11AAJWLsNqzbkp2iTwo8DGvEUcZkcCgXnyVysTxLjqYXUAGWPRPe3D1 RvT3iLRTfC1BigUNIi/S unSBNiqCWRR+bliPXlG1catpXL/XRijSTwGnU0FVHRGeMv4JUebbF6phBoJeq8zETxRPkWPFIqw1LjMq AIUfHiHPZyBC9BLnV+aN Qs1ZNIrtJKXKNQ42oPYRkQnHZ9FKsQ6LGAgvLtDZCSO0XktbU2teObbzhozpL3cuFDmOkZGt5wFINq5N ioZePL812mqLmQ03zVel 1ExZMRfIOOVYUTdmxKt/ZSoRBmimUIzmLmCqFgpom+XG13mkWppbWCnDd+eJQhMl5jA+b57mXg7inYSM s0M4TNI0fIG9FTQr00Yt TPeBevpCwtYiEJm8JgYF0GrXl3af1HSTrwQxmZ4Hh16JXEIvrapyPxzvpzPDDQlPaKDMARUV+qFHJswi 7ByqITfrl3wVeKhbA9QZ G+uIL/DMRIjpMdL6s3MF85t+y8iEYdK8SXbQwS/W+CUoB486RhLq08kRGi2g1QWi7YxniGPX8DZ1niGY 8z5QzLjAe/Fh1SAs8wNI prNHII9QZOwwaUJVQAOcT9YweXBLkPmGGyATLmooDymAEDCKMrYTUu6avGWMytvTxryCUCRjkX8JBYk4 WJIcSBFgrqEygVMnF3oN /YtMrb/AHYOe8E3ScCSWD7CFg1Blx1wMvK2zugGdqyE3PejT4qIZDhK00HgtWriItLYc+a+kDCiO/qQX +8ZROx6oZuYiJNkDnZdC FK55rRO5BvzXdYA4+wpMj5+a4o4SBolHld00ZC/sd7NWziSPqgBuaHCv8rVkf+6ZEd2FovVWLK9M6ZPA ksJKiSEQTLReVGh/y6Ex cj1sxbx4H4H9F7ryyDa4MOdmqMwkOzgV2kJMPS4gg8LyUgwZQr9ynjDO0ATUJUHp9QvfW2FQi8yyVF7d e5yuCVZfZ/nL0R/HbflD FuXC52uud6Njly5OWSnRHTWDZm5tuwlwnArxpSzd5mPsMCDHeHwYoKUx6TDYIit7SmC1EuJGE3kHCuzZ Dpg/4qI+MAgolChfYRFE r87AGKiMDHLrCVCl0RpXQk+GEhby89jmfFJWzkJvO5QnFT6+Omnn+jPP/+OQdzfzSFGcFV0axTwcf15R TiRYSrDovRofxaWe8VFV wOSDT306tY6KnDlY+pGUPrNkhoH7owADTHztfc8QotokZX+EupQfagaRCqspHQZLEi0iyrfpXBPlZjyQ Go3DqGh86uIvBrYsQhdE roZKqREoV9j4teFvnKlNrX+L1sOUwsTgYJGPfC1ua43pvxR6p578N390TSZLNimO+KRMVBNTEVEtqmsT qZ4sfWXlQewM6arSpDkf DDUQYyJ0pNQBBytgyd180DBNG+XvjGAHMjb1CkWWXyACIKh4LNFJmqBfyEHT51/0rx6h4j727YVwH6+4 19ieGbPfg3uNeXf9tJb6 Bd5eMGIuqEJBs4ZVNS8w9pcDTHES3BjC6oIsNYqPsKIYBKj7iqxkl/7X1QEQMdqSVWG699xL4eF84+/r UIWIqNN+YPc4Kiujg7xX tOmTZN+vKD1qMbGsN3jDcJhVdqsm+uuu+iAVsx8ZpDTfIWWXrxxU0cLE0Skn3SPKSdNOZPmmXKTaSm2y javpGrVqtS+fXsaPHgwC e0JmpEDmKYAykKDGsWxNYSmgOGWPPRqNWSKVALXhcIYm7XQzqDZh/jIIsXNDNsDA0oZVWmYNN7NPhZfY IbxCRYgDMMwjE+wAGEYh yB5ofFSxnGW8uUlGYySLPkdSCCLVNwX+GNWYFKjSHLhLHaTi9HQMQM+/OmcYnYuHJuLp4wphZV5dTVz/ R7R6buBUVbplNMQShUGQ UXFixenrKws+RFab6fA1lKVz5frl49t808wtqa05diki4QMR35JEgqknYZNfmEpPzVPuPURrQd9sYBId tSzZ0+yVRWGRj1n+ROPB Vgyp20F06nxEi8qz2nP7lEMyQjbWsPr7BWJUrSeb9bjgevdrYnKugpVpv2NE0+evvjiC/7SG/Xp2wYQG 9PzW8GUZgllPt85hOcra xoGWZ67zLc+/luuhhnomdhcGpuC88tZa/vvv1+GGSa/8zN6XHb4x7lf940PILDACSiAt5mQxTbjVEIVf Ixz1gMMAXw/EytWrKDu3 auDD1Duz7/+mSpWrCjDjvjvf/3Ngs39rAGWAHpVOq/vzKaQe6FtKE14Sp0rxGXVx67FlEHIe3RkDNtFJ 3SzmRl8PB38vFSh9QUp+ hgRNk6SX0x63Uepgb/+xU15kkL4mGAjWfjfaWsW1zKXv9SSlPceq6G16xSD1ebEMrEJTETaL3f3CLDql hfGwsVnkhgrp5vpKegwB SVLeRCVxq82hJTbYRwFAS60DooROWGmuiOqxkLHCu2z+FdB6e0R052Ou5gaA7IYrLFIyMAolwbAUjaK5 OrRowfVrVtXhUiOh/g65 tqigT0NXbNMzKqwVZjfRF+++KLyuQcvFrSPm2++FtIQpTdo65/jev/9/tJNkMmL29oNVkGlDnSQATfw2 VTIO95++58jN5bKpqFvD cw/x3gR6Or349NyhAlOwl2rOzbAYCWzyCpkcBcR79x1eKLPR3sNkSYFThormnotimddpX7zf2TpUuPCI ETYzH/FV8gIeWFIpRIId 151sqHqa4QiAAuLXNTDmgPs092T49GY8SdCO+/bt0+OxyAd+afpQKvUuQbQ5XScZnE3Wbir68CCeOUUL 0XEqm4aCuVhSIcDlvTDp TJlpMN+3Buc63//+798b7yyWsa0KH+FQj9pYCOREYiWFkmJmVUHKLf4zRIWcn1idj+BUhNx1L581LZYv KZa0eqgEwgSaCk90MQ71 lmuHE2smkAPahfzo4+tUrgHx+Ie4jfg/hnSUna6gMLJYqQNey69XjQ0d0SNeD/6y4by6fP0I/7880+aM lVPEQw6QHXwg2160Gt25 mxkXXhisRdviplsgVRNyUelS77XcOjnIgWbE6bjlZC8S9yUo6eqbJIbtmlO8BHi/fXXX/DAgAmRO19GK NcrRLaPOFTfF7AO0fANQ 2u9ZBssjxWJA18nggjfw2/XcLKIUVo1sYbvhiqh3eNxep56kzPk0aJww7fztlQbVC45RZY4v8tb5CTGx 5jAaOztKx86See0cgL3C fo6bYXOMFB9rY/ph46uEHlnbTzGXc2SW+E9wfuN+94c6hSudobDQ2sp2lEqSXhHccKx+ebb5IZMMC3kC aVwgXgpvUKcDAJH+sWJp F+5PsZdpMcNoC985os6iHKsRE5HlNk6x2cRN10vwLjpCAreL31ribqRa0DjxMjPKkNelPVZBzTsO40r3 q7mhhsAJn101uoMigXBc Eke1SNAm2smxun06fncwmGpV6++5fhABCDBTMP5exsuGoEs+++/J7uNFELy9RvlvDmixqC5QL+kdLg+I axs+3KgAZn9LrZrdL5RO VASqvCedZDfzVZqCSXInFrTPNFVzUiRWVAXHIbk6ZWZuneDLZxyOc8k3a//fePGG2+T2xagq78f2woNi LLrDZOO2LYBPomFQUaP1 kq7wmormC7n4B4fF1A8ZaEBRi8M1aMo0u1ZTOSc39pjwEPpti5OqnFBN/uSPUIIN5ImYJpXeTKpUBJ44 vMeG1vujmpbSF0FG5814 sYEReSjd1pJr8FTiUZEQCFb03586z2JCAJGPYiXn8/5Gnh5284dOLrfOxKzD/ZjCBFSbUe1shc+33nnH Vu5e+TIL9Yg52elBwGt1 f706IlzbxB/e/Xsjjp6UkjmEDgubGTNauDe19Afn/oGFWg0aDyVWji25KcoSEznVBRauwxBDYsRT268d uSNYhTe2kREyoVxuOWq2 T5veFm37+4GL9h658luxt/ViYa/8fjjj1/8skBZdnKB5PCXNBQcNbj3cbJFYeTfHOzSm5g/PEhIi6SGF GCA9P/+++85jvVUgGiee +3415W7Xa5DGrY67vBZVphvdruDsCeCSrKh166hA7Ml0xZng24mLtp9KDKXLaPCW/aLlp+KuRrRwpdpR VeFwqWIy4LHSWmCihtNp tpfsdyAgtTiMDnSWovo7bbzAAWBWzFErjFt5o1iWxxch3hTpjVHAg0Xye1X8zHBYuyfguWdT1jQUWSpR c984OIVUzZSXZkwCn3Ft z8Yieu7106yAuughj94nTOr10NMMAgjNMtenNJLJzjlUmUXNo/k5nbtmowx5fUadi0/KLn7nFftfE22q fzYkThQHfIQjRk5qot64 tIWiKnWfDVfSP9g7knYjlyBURNnH1a0zxSYtfN2okQYXWmKp05hcOaqeZamkaS3YaXzuujCqZDZKwdOm Ukvbuy8xa9LAB/XHUgnV KuLao9TOHkIgFHortTnpsklkjmGzFAfI5geRR/o2Ew4165O2Tf1a1YHuPO6a8P2Ijgw8Rbxh09SWHBXc QrVZcuWqdirQQvNERA8+ bxRZHplfmzaO18cn1sD8BhAkMgakLMi2O7cF2sv7aszudwgZ7YSBzkRHy4fxriNti5f29eYKudG32XLE kCutCaANMjPk/fy448/t o7xzca35Zyq15/opQtn8kl4dABffPIMuhFBWjdthVexXWvdOR2GRgOCzJFK+EJae/H7tC3tp/ToIeMcg R4ZR/m4w+pb0EERDU1Bl X7fBDEeFzheTXqmL48cQfCesXs33Zi2F8hrJtGchTR3czRMunYKUkkjuovBZoM3mh5o+o9kF47ntRTc3 V8DnACMkqM45L8awuZlf +tgMngqsm2IawaAIp+vgEn9WMIFT8v6mRSVLyZL/vXD6m4Rl0gSxyVkeHUnCr8joWhHLdtE5XsiEFj2l Qhs4mzPJ36m3ki42Co7+ nXbLo5h5vvZ0k49h+QM5894M3ulegxHqfUgL+euwkcad+i4nnIZWJby4G9fuxzuVf0u59XXqhjMm5Oul b++1746lfRCzt2b4yjXD o0ap6GLzy2O494hT2b3bRTqqWOtr6kKkc18AEZ0JlmSeMu3MmfU9toQUAPrrBrv4Bi1PyWgv/112wXCO kvWso54OOO6IGNU9ooUx qFWMHqmRZQP1y6N/0Of1YmchEytBh1PtlKh0yTghk2L6FpinhIUJVECwYidG2ZC2tyWBzZ5z6rHRYX0g 5cQ/eD6N+G+nXk23fiqV RSK6gtjQHE7EWacdwh44t+3nMBFS7TfJLL5UkLzTp6noMJabRYBrhYEFTQj7ONaHetXYOlvamm88w6t5 iOZZCafa46+JuY9L809W +uUJ3an8DdvwHku15w1o7SVciI91vsxjJJz5/I6bjd1MFaH7XGEzoM7EelKRVTNtaEnBiu3EWBRaOene ewLXpvxOmLEiBHKZ/Yesenia 94tAzdk79+CCg8jSf6K8006llJOZOOTW35ORm9Cv6KUFvhNUOLpYo8hV214fzPkCIInNm7cf+uAVYivf LhdgaMOtdg8pryH38QwT UTBit0o1OCWhgGU45spkSmDk0so45r2i+MgrSPSSG8pDel/Q6QEwR1NapENF0VHD2i9o9vZUn/YW1D5g zjmDr78hxlDlTzYmBu0r XLDNA6pXETZYwWnazZYwPzj+/GL0NrKUHTFvoPxd9ORadRuGfECRftOrix4295tcIeQ7un7n2h YFIN9f5qO876Rliy9+z+ 7aWFpeaHrUUOhwEEEBhZJJCMkoSxfnN3UHHRvtlxmG1eX2VCpGNsYHW/wgn6hnMYc2rOwaV6WZZ2H0GK FpUyme+EZ464ZUBMSK9B CFZEy5Dn6x96fhoRt8oCbA4dbMxtVfurwsWXk64L6sNmq2WliTWeoaJuTSNqUkfRqa/Yl7DeilKFOiZ3 TJ6JyE0vc7fkhAUoe9YU 1S+eXhhc1LV8+bNSWjbKkTStNdbYHJt/T1Cu1U+53BzVw510KXOkBgZMlqOktBnmjdm4kQF8qGWFBR9N EBUVXHN4vRb6LF24wDOd uOFl9fWeQpWvpEzxfNVN0/GZlNHN6ytlfNExCkgLwlLXFdkqM72L0+7yZDi6yFvGlmkxqnSDHvluADf6 YXDhw/JmOV4ePIgfK8ZS WMPfThpWBHLwBgQHoUnU3veYLcy4KevOu5v4cv3t41iL3HDMwf9vRaNCE4J3v4z1nwTapvsSWKeST8tw C379+3Eszn3moHHeevxI KePxjW3mtx5BwFAds8zrODG+ehPho0Aan2xSHKe5sB05hjbjdYfTZGVaAI77uylzY2Th8xeiiLnZ05zt GKl6qZ1j0KSea/kmQDBi eVWfVD2moeAxRLCcw2sEjzgxMzhV1633ryYTMHM+lJ0WFoCcbjBKVQ91NJ1hPmaW9vdzu5QMP7eNxdXX ONVRryD6yFQhBDhSmjgD GQon+ceT5uM80fr6jFKhFnLkAcByIwmTZjt9xYpjkr86I9kD/jFsrYCysvM0l5cH507q/K9L2bTpBHXM c2+R9lHmkd3DdJj7YXR4 xAajkg8HgyqSYhUVh5PzYx3oV6K3Sx0pjd4eDn37r2xJVv7CowXbkqOXGLNhcJMFu+6xQcpxIGQ7ArI7 Q9M2HtYn1oJ6x3g4BT37 yrolR3aneUSqMwlScAKUUEsPq9vPS37oLQTkrUHcAGYprlb+YCKlvcWpRE7bWeCHxW7CgylzwyauC0fF GDYrNvND5InwTYCiU6Mw Ug10YVjvvtjdkLL1p6wj1g+Wj4jGG8535jo+henVcxoOAEJqJ3L3KHPZCCEC7pwsAPMzNPfowTvFBDKj vrqz4OvuRp/jTPtBasva ArOfl691auAL3zd7S6b75aqYrejsHaO7bppxl6EnBrSRKIDNoZrxJjzdRL3TQmax/wMtCWtIUEqf/jhh 9IPctOyQTeRrqjRrQXJD 2uiK0GqjCBwkfGXz0DNexEqZHp+h7XKkOVANFIZ6o7DsmWeGHR/pfDxkIA3hltOGQiJsKlikRyYrv7k0 7XlNfYNJuvAqbflCddpb DmoXgRLH4OYJWn3tNu5vnPU2Sa1yc7rawnOiTO1663fup1VPih/o0Ff/vYXAfMvmYgNYCVJOjqB9ZFHk Pf7MmDHpx1LMSasVV1XS 6235VHxTQTxoy0rY1rP7fHvlDqMVxTiOvWviLL2aR05/NTenPwTZrwwaXWG/PKY7YwEmbQuCAr7Is1mT A9e68EkQiartzOIGwIWF p5GsQ5VWxHd3vpFKngWQsx3eU7RZ4Xrpx01lvbs3cgiGEBuaLlaDjUewxw5UgFitIqqCFIs2rzba8bFC klH8OfEY1otpUP2UkAUN eAWBBidrt3SufVxthMORHgDKShJGEpHhA1Eg18eSUnwhew6uPvRtLHUkjh3NhXGkR3m55AmSJ9WbiuAy 8Z6NYNnt/JwgorBdH7Ce H14ZCFB+tlkS6vWSGlhl5n7Wy977EB6RpXb0JmGzKHQUyPHE0Po7xIJYCQmzuuBlDOa0OxvNrlr+ySwz NNjfXuonDzDrFbve41AZ GlG96X8RaEBo6nu2hqbuCRFDt6eclmmbtOjCB7PvBHmMbPlyScf9oyIzKZ+nuWPEpmf37qFCdMuy5WoM 69VF3YDy7Kq52PAqmA8a /322+XW09+DyGusuCqDHr0S8zg/7CyMrmgeQiCO0M4izBNSv8/ZYzXT9/SpNncc9r2Nwm1dExag2Wgdm TjirkE2X6/We+DJ/Uevi IKfv1h56TzY3xgzbzdDu++2599xme44VeJ3Jg2UHfDiyIqO7rum2jcxt/lRiRh99WTFHR8Ts4O89yWIz ARXuO5QQiC1GXpkB2fEj LJIRtxQuavLIRJES5BQxoWm+UqR3eouZcunG3BzjmHfnyeEDUDfx3MWWIvmI6mGzjJusEwKtvv8T8Vab KlEz0MPKt81ZYxJ29pYO omVrrh4oaxxCE52dGHsL2HS7ybgrb8NpMivXQmq2WkpvKkDImXLrZdMmlyk06cvVypPl5/h21EtrLgeX t5y3v8lzrfvDYZbYxDYI aq13ELAhxzcXWCw9fYn2RV3oW6937kc8FQkqMVW66w42RpR1nLi742jYCFGMAOQDz3PxxS4VnJKaIuoU wzodcFckdcaiNcCRC+ei AiYbfO9KbtPZ7DOV7wIVb6CU+/1sa+50lqScA0ByCWmJ4P+CQ9IgRNcN9SciRxfuyOywuTV5YcF9bIWU QEsSpHRyP7J+oMZ6994J vw+oL6h4qEFcTM9i9biPZKf9KYk1eI4ZRvT32cb5+1GeLcpMZ3lXNnfntNWIZb5nhn8heGcfDsY9+KqU KGCV/fRz9rbtke1yCdZT ZvZJcoA4iUtqWrzXOxrOWrzI5oE4urFhVApFE6etOmd1z0hJffdLG3EkfwsUmCpWdTrD0r1bre1K23a6 qNnyT2sUDgION5fRcEzW EYYD8B+wUD0+4VQ0JhrFwnN7wpEeQPDLDrEz/Ja89IO/a/h6rSpquP4ulLk0d+RQ8pviO2UBEwse7hD1 B1YWFgDf2y9PvCC6N7JU +A9j194hAAMaJWZwyXlZ8c///4dfbCN3UGYB+F7R4hzTmGrr/onFFgNYfmPsryCnCu2d0NKPawfcoSxW v4faXVBtBC20bf+4j7qF 6BunTCtmdZPwm4Cs5bbHNHrMclu9DQgXqRHNV2IeFxoiYtzFVc5H7qn9ovKBgnKoJWY4G3rYN1swHAg4 Rf4XySdkkVSll296OYwB 6eoIQ147qASGrBbV90kawUrXTlA1IzFS5mv7gvgKaHu0F+oqEkDOsPeqVB5g3F9tyzEUny16HU+gxVr3 YoOWd2g87AoB93TP5WT2 Lx8FZEQowZBkz2NwbHRed6B6bA8NJzfmamxdrUjAC+G8q8j8Ggx1YBVMMFgLBvZeHZ0vGbFFcWxABQh4 2ebd1Kpt8qPdzXrRuoj8 mZHOPUCW5JXKVbPYaHEvMNUFp+XezcWGHYSunTSQtEMbo4r9MyONCEscZbTRSKgAMkan6MYlBPOQ2L6F Or8tYVQxZPHstRILcwZI CaSWH50DUsdSIArNPYaWl5PXgrqdBmlyhQPXGO7iFFnGWEWzwytm3esKeliR+yUX3d8MG9j6S+Ia0D/M Fod9RaW72yEx2P6Ds6iV ABDg1KarW/pmzzGisTjQ3N80XmymrtE6pcuWVunB+4f+qxFK05+AWjj0spuCAZhDk7mWhfydPQgJ+sbx GZ6fYHg2GyBDlpy3raRP uapSdp34sdh8aZfPiq0p5MOs0NPIWm/qm3Yb1Y+LW24pPbNO2LxxQv8q+JICTfavM2UjFZTAq34+xpMn QIZoDKGIfaEeBnLo792y dPhMCeEmGes9zIswb3rWEbIIOJrN2qEpq/PvB7lBraCpxG+bUzqm7uZtqJct8lfzKLEbwv4//770hQYH 6ST71IInakCIHTaJqF/G o7s1dU1c1rL6RUnuQBwjID07/jdwEJE41WrzVsj64e8zjU7bZAHkYrMgsZi93CtrW10gCzmVq+X7YGJN ofuXMZsvctkf2JyXVv3P dogBcKrfnSIaCpU5mI+2fClrFveu0/jRkclVtMpXLOgALFhIYd0VFT+E4RheUhShfK3JxkYmbMGXdMgF BCGYRjm+oEFCMMwDOMTL UECkkBTk4TOaaCNb/hNDlQYFVkWB8jTEQzSPC9BCaOfNPhoHDVdGTTqaF+aCHUNhzS2edJBhhTS7uFpO BiGYRifYAHCMAzD+AQLE OPlWPSjIZZeEXSzHxZZpUUIohGNLbYMmuBEF7BWVRuSQKkOVRkERWbjTsqPOTTgQL9jGiNiVFK7XNsTf hEDoxm8KxOeyURA+fn5k b+/j4vuW4YEWuoWcwierTQShJVOovZQdwlTy2fISubV1n8slbZndhy1vzgk3sNPY8vmI7vdi53nso7T1 9xzD/Gk4nAxSwsjIZebP GKeitc72TL+/UytT7fcHmkFbyCxnPqk4Xa4TUpUCQL5HvdVkr8mLg75VGMyu9bnqTe15aVE+bdq1Yp+/ wybxxyo57+zh9ndq873W w3256784wtsZn7u847/NeuBre1zKO2u5agefl3sWVxV8mj8Z6yTbGkyF3nD7rB6mEcNFq1T0+7I4fz/N QPB5EMImGwJRwBVKhXiE YpQoUKFqG/xydh6V0cL0moYk2ZiiHOw33QWzz+yqitmuEIjSGxANAQVidYg55KIT7gc9Jtdr8tNgokbi FWSQQlIqjziTc5PBq6RI AqXIX6zdWHQQgW2Mg9YP9usN9dPOXphpwtINYvWJm+mW2+8XWcBpwYx4iUNQ3Nre/bbhq4jdBlWP+kTM 3mCIRR5+/btjX79+hm9e dXdsE04eCEC9WOSdm9CbuZqDYA09+ap0L+XuWh4yg1z8a9481RoqgF1RxjRUVTBbYsp382/t6UPJK0tY DDQEIJYOoRPnjypUuSkc VKQmj1eRD9fW60JyqOjHVixamEhFOkCTx65WCm0R3+VX3/7AyByKsn1gkST2VbAGtgpqqdZ3rir4mqV1 Ds6e1YYiSIunDt8JqN3w fvs7+i937hsQvtUx3/3ZbACDQdXrtswR8uBFRyhxROfdsWXmwt208kQgxxNIC7xfttUKzjoFfhs2eGiE GwTlfEvZoJjUvjWAq2cL sv3Hjoj0mvP27QlX8UpkmEMSIM4jh3erYiIcDLqS5kA/Si/1hssZCRbJ9/QwHp6kU3CIutiZ9x/T58+K qF4yJuOr6iXw4BDrOVm4 aoy/K120ZWV7ZG7BdCTBXjrXF++AT5HWqSWOODd1FK3V+AR93kqMy0a+LHHHlMpcvLXX3/HsjdA6lR06 Fxms7iEzydqbxehhfXoq l/Dkg7XsGeSXSqAyg34vUS/8hULZbVPA5Ulep/1k08+UTEmlSpVuurhIPzLL7+thYYOlXLtbw7MLH+PK 77FT222R9tv75GGGrqlB XvUjS9cWP2KI5L92Yb7kUwjVJMHte6rQI6//EBkp0h6EpZAMxqSzofRIbOfR1+kPkHECcBH8ay07LEWQ dNaMpcyCxlOgXa4CCT1l avOD371L2HPtGhnEltILpXX0bUBp3F48OGxEVfiNC43mkKaPy8VVZmzf7hENlCHPwWxqL+n1pLol8x9G arx8epkH8MWNW6Wtntoj HX+cyMtxTLhtKt1seoBbhMMc4H8h5466k7vUn27n9I10Mo1OXFhNTgpP2l7M//8c+XSeLQQh825SEuk0 2+/OZshotq5fkaF02lcY rtjSjeZ2SKQPxP6xOglo//6ajkwk3GYPvcq5bHsCrzoRTYefNMuaPyxtrxWrwWA4UhTeiytbcMsbTIsW LlEgdJkMvOrvBryWeB86 LOm5PX8hJkwjA/AbOWu0Hd184pQ9Y+++zgw4ffFdB2beOGsmcrjtcFnVlwwxmMaSlNoLJxllMKfpiOp4 kJW5YAmMKcGe93JiLCoK QeNBc/W5jMZkmJVqDIkxuVP/O9//6Nr5YQmMnx1/R9RYT9pZ1SvKy/NmLmkIBvitIZy6Xsw00JWNWaBR kWU1tXkf6kbyp2++KGxd NwX8AsVOeSu5ilsuArj98aEe7Fyc46hU8eUzcuSQLuSD2HvWDjdmFp3weFobPnraYh5ChbQlPXvsf97T sNEA3FRTI+CX9EtE5iCM aKG3wyWgoT0pPIPclcZ2YPCv6D2x6PfWVUmH+7/+hqxNUy2pR/74zkWgDGZMnG5//69OfEJ8f6rseawH lECxfNdAAE7BECmcKrHT Mj993MuPt4eZTUlPC0/PPWZ7szWeMVMp2xaZgzo9vhOx7GZONDHcrsa8MSdyWLb0k859hEGmaKRS30+z vQcWUBJRqYv55aUg338m 4xrLh444qvn5FSVkmENhUTOvcYbaDePe/Gs6oKWCAJFxcTNyi16OYc3jbwvJy+9BhJgYJ7V3NZptywku 12e9/7777ftx/KG12rPX DUeeaoAAxsy3GLXcqNctnohpJDTCqbMySJWY4kGKLXLg5rjGGs6+znaEzp40qGVnm5XJj9ujTMaFzCTI oyaByJ5dNH/g3sD7MYrb fbJs0ktw0150nRQZg6NqQNZyy0oMiZL34sgiPia7W80xDUiyzyRKHlhMdy4gKgGc+oUcWUT02crgCRp/ sf3B2MtGMgtROIcbQN83 jsTIKhHsP+WB73WSkZhskJZXBTFHiq3ObBBXjYR3mQqup//mVkQO09FsMUrQuvj7y139mO+U+jiOG/wL gCTKUZzkFMe9hwjnk1hK CMR939nkrUsjFdBch9ncIVRN+8l28MA3c6VIj21JMj2pqIP//zzzzKsQaWP+LwA+ah1rmOGeKnb/LTDS 2gFUBL7Bj8N/xXIvIp9j 5wxefJkl/z0COT5Pgw+/Ka8scFJdth9pc3yHDdf4q174KmeyOJWJ0whRYd8e39yKQDzjpf++ecdXou+R jhUltYGgwaCyNGxAJVm5 39kJtc6dcTI5r3cNKK9F4jSwVuVVqZ9SuJzYFMZiKTuyv5ZdrGrvV/+6g7YYtSKK8Na731AMXaC30xpe 9xaXf/+/VUqE+u+smXL2 vzQkJzhSoAAHA+o9CaPl5/RqVtftvSPlcKhwlYOpX4XrJnZW74DDE9NcA2kojaq88JoLHw8BPE+QaN3h P4O05Xtp/SWL4rbGGFgN ka2dsVZDr7yrGBUXDItrIwhtZsboLluoPGWxSKydwAQc7lhmeyfJExXNzKHzOQTHDmdgWMVjNPEC1ZLs o0swWINZ34XM1BdzO9// ID4Yl3WF0/Z1bZrVdigPY72bc9Xtb+QzhjlWP38bNkxTs2uKrbv1lHMpMLKISE//FLEyAhRuNizUs4z8 uZV4wtVLsmZlylqtUEAO 34mFbiI0ou9fZ940wwNs6DrMviAeySZD/TLL7+QqA2aGJ2u3mUKkTXONvIyWSzx8yb6n5D7ROAM91HSy sHV/ufCAWhC1JwqJXuG7 ajheaZxtFazU0qid6mFcw+nLsHny3x22q429xKZ8IfIE82LVcuxSYFy1NRFCmaGFto3VcpSedV1uPXT+ 7HILfeAICQL3I03FIttu 2iMemXFZM+3fibZwgC2D6VHt7+mP4WusHLQOlgal1Di9sD++xZnpmg0WluVvHP3uBvopQHwjhPzKGkKb ca3EkASSMpFeQsoDa1PU AOZZ4KOmBzpKnZGJwSx1sH99Oi0Zb4j0dJmYgMkSKsd7obZTsBrdkeIfC+Ll3Gopi4++knmc/ToURVjg ouXf4ZBdh0eh+6KcQYsu Im8PB30QEOyNbdsI1Qr7wxPV/pjK06niWxtKcPzvGOfgXKLsfPvYZF51hQhqVMgLjP0GJe49tRcvzQT0 JiwT5r129TlIlZR8S/v7 XvrWPd7vvRs7ACJHAJmsRmCqiWATwraFW07PJWySN/X0bqOnbMRfh+GLtZ2tYymsQvdnbZLCUJboZUyv dQvfGQfPfh40YlIdVs65 8owLXz0Kv7HeFchEmwbKQtBnCflCr7fufmiOzdzXnOwdiQfalAk0JxixOnlv2Sbs3SXUmhYUanCW50Nr DpU1tOgItCLwg5NaUkoO 1Sv7upo7fIzOWb8pfJgmaoTXM2UF6+yH/eFkKrIbCrcu2C7WFlwjrs6743PA4tQMmWEhkq+pH2YO5n5F n71tImm2pt4GuHQuEhGn Atkinson/J2C+CpAKLGm7xCbdYrz4hg1rY1w8vbiIkCYXxcxs6sMx6KOOXVcsdRY5AOTOsAU9HHJd6B3RXyPWH GiPK81kJYVOARDhCTnWE ltlbwKfsWpyBwIDqmRO2fLu5LhdeXpRsia8I2QTNARZ0jws+R0zpXiwaaaIC2S4QIWsWUP2D5LLhtQUW TWdkwfIv2fI9tZGecQjm CfHftoNLwvoOvWbagxdEAYiIzaoiuRmebMBvIqTOBiS3gPw/M7OTWcKRfsboXIGhzl5Klw01j3ky6dNM 1Nu7X+/tL3Wot9jPVvvl XYBY2idWVTDBZOk8r51h+7Q7wOtDLgQ5BodIWfID0BrWAgJGUnHJ5Ls4LMjEAws9bRPnpPzyy3LPw2Vk GlQcaExgXtRpUoVWSmhG a2DaRmuY9/wxRfiGYS6opXLkCAFjOc1CbBIyNMnR5gg3p8B1lgJwRdF8ShwZknLF/CBEBYalaygMJESz 8Re3evt1NlE2XiQaDJWY eQFo9043DwcypMKTXYTGxReyNIlPLNlLQV6GkshlXutjhMcuobXYOgRBSMAdCN5Iw4+bks5hQo1Y2m7p mc31th0vdJP0EchzBVTG ++xgjNUNCT83uMiNZx3kVurl7SVMse10n/Nghudv55YpfD55UiY43VcHnbW7G4fu8TQR2OIchVMclgI5 JZ0jLR19LAXFioWebjUP 5pYDOhSmwsL25zofmvdG/uuMJjOId5+1bMnf5J0l6Qt+qQnGeygyNUuYajdESLaagbyTS962vlFCZPkJ W7ikTvS3+yY7Puk1vsDX 8Q7G/f45nFzDonm6yP5pDvz3KsEBLV5WPYHmH8c7NT8MxuE04F/2U1b0+K6vlCXclxWgIDMvsbj3XX6/ 8gsvWtr9QxLe4I7zxAgP eVFb1aLNFp8CuVqTPuEr8CE0ceYDtq0UAmGdmurrSu1NzK2fT90TkX3MjD4KRkJ63uMI1rjUMXgc4X2o nRheZfagp4/3XhVxs0BB 9OkVOazG3xQYXcASYqX5seSpPUu8Ic0RCV/6YteejzQflJEJYaVs34+oj67trj38f2kIEhh0xLWtzTud loDidafSpFducHBlhtCE N10lP3WNP4GQTUZGC4OzDLQ1AXdJgDnVC/M+2WmXEYlJ1o8cDqUQq4OmZxTkaprjN/w3xNphxUBeagKP R6eIR4aYIaGuXWiTP7Lg huutQDR1+gWYTPiJkbbmRvVOA1DKqaoJ1gJBn2JP1USLTlvmIdzZkyxxizo7e/JnnCqXVneb2223vqUP wBy6asAqLOKL3DBjc/+K I/3Fk/mQmC/d3vk5gjrbfNAI2AQGb79Z6pRG9B/hawavdhYm2rdk5WdwAOEfihG33QGP8YKbYEq4ipCm XuZ1dkUikPavdjx3ejGI HvMNbkdqNfwLiOE7o+jm8S+buV7ik87c96e3CXuQetxS1Fbv2opXdXAijJ9HdS9fMDhX3KMSAIiZ7yBy UMHp/3cdkH1tR6h+1t4+ +23U/ck1qN9Q/UDRpq4qoefIViQnHC19gKEVCfY7e5b35KkZzfEVVLWHgJrF8pQiz6LfjsH5yZjOZgAa sOz0VGKROIModnOpjFse n79+neLHGjQus0NGEyDEk1WX38N6388n1aaTHsNdEien/aRUYDi8S37R3Navnmh5ngca7bPTT7oQTkRC VPXzBT91ohdi0AJ0yciJ EQOz7NsG4drhIlR5zsEc8H7yjThfNJKaCidKnDpCTq2lqTQlZvGSvhyiAy1gdG59SiZvdBjziP98cUtc O4c3R/vSFPUhYsmrqy25 2shOJ884awN898awK3TxXCEfANJ8MPZ51E6hkqEb0KVlQAx+xg9vlGSF/hvI4nZ2pH7cl0a3QWxmQwQo YRngN/iCoz/0K5I7VK/O 0HaJy8e4Y3hbiilAYgDvawePuQUrpuaNoRla/cB9Q+6LZEG6/VnUrgR0KhoQ95sRWYv1bMJJQFnhXTAD EIJi7/5z7edbbdovzGpO cw/R0O5GdV0GXa1keavcEdJ3OynKG1EyIpeNnKbI9K6hA99e2DyaM91FkMmKLbftIU/FND8+/kht977E 0/DBFHSx3Eyuw1uMXSWi JqMLiBM+vkngIUHWn+wsGL+PgK8Nzw4BMxrctKTMTQIMnv3qMenAiaNMtf1kmVXl+AolZdTZn7o11yPb yluCUnPJYud5RPJwrDNc idYgDAMwzA+pERGOPqH8FqHLRpJGMmMbAWrZEEyiEYl/7Tn8MVUP473QGQRBTeQLhAeNuWL></span> </div><div>
</div><div style=text-align:center>
< /div><div><strong>Patient Name</strong>: <span class=clinicalNoteMacroWysiwyg id=[id number] macroname=PatientName spantype="macro title=#PatientName>ALYSSA PULIDO</span>
<strong>Date of :</strong> <span class=clinicalNoteMacroWysiwyg id=[id number] macroname=PatientDateOfBirth spantype=macro title=#Pa tientDateOfBirth>1950</span>
<strong>MRN:</strong> <span class=clinicalNoteMacroWysiwyg id=[id number] macroname=P atientMRN spantype=macro title=#PatientMRN>[id number]</span>< br><strong>Attending Physician:</strong> <span class=clinicalNoteMacroWysiwyg id=[id number] macroname=AttendingPhysician spantype="macro title=#AttendingPhysician>Sarah Coto (Gynecological/Onco logy)</span>
<strong>Date of Service:</strong> <span class=clini [facility]NotWood [facility] HospitalcroWysiwyg id=[id number] macroname=EffectiveDate spantype=macro title=#EffectiveDate>05/10/2025</span>
<strong>Referred by:</strong> Dr. Coto

<div style="text- align:center><strong>PALLIATIVE CARE INITIAL VISIT</strong><b r>

</div><span class=clinicalNoteSectionVisible id= [id number] internalbreaksection=false originalname=Chief Comp laint recognizeconcepts=true spantype=section suppressempty=false>Chief Complaint (Palliative Care)</span>
Establish Care

<span class=clinicalNoteSectionVisible id=[id number] technology internship albreaksection=false originalname=Oncology Diagnosis recognizeconcepts=&quot ;true spantype=section suppressempty=false>Oncology Diagnosis</s nava>
Stage IV SCC of the cervix

<span class=clinicalNoteSect ionVisible id=[id number] internalbreaksection=false orig inalname=HPI recognizeconcepts=true spantype=section suppressemp ty=false>History of Present Illness (Palliative Care)</span>
This visit was provided via telemedicine with the use of real-time audio and video via [employer]. Alyssa has provided written consent to conduct this visit via telemedicine. The patient participated in this visit, noted that her home health RN was in the room however he/she did not participate in the visit. The patient is located in their home and I, Dr. Carol Branham am locat ed in [facility].

<span style=font-size:11.0pt><span style=line-height:107%><span style=font-family:Calibri",sans- serif><span style=color:black>History today was provided by chart review and patient report. Cancer diagnosis began with development of acute renal failure. Admitted to [facility] with this December 2024. Found to have cervical mass and bilateral hydronephrosis. Biopsy confirmed SCC, PET showed disease extension into uterus, bladder wall. Completed concurrent chemoradiation with immunotherapy, followed by brachytherapy. Admitted with complicated UTI earlier this month. Treatments have been through her local Oncology team and [facility]. Anticipates a follow up PET in June. [...] originalna me=Allergies recognizeconcepts=true spantype=section suppressemp ty=false>Allergies</span>
<span [facility] id=[id number] macroname=Allergies parameters=ValueIfNull:NKA spantype=macro title=#Allergies(ValueIfNull:NKA)>Cipro&l t;/span>

<span class=clinicalNoteSectionVisible id=sectio [id number] internalbreaksection=false originalname=Review of Syste ms recognizeconcepts=true spantype=section suppressempty=false&q uot;>Review of Systems (Palliative Care)</span>
<span class=clinicalNoteS ectionVisible id=[id number] internalbreaksection=false or iginalname=Palliative Care - Pain recognizeconcepts=true spantype=section suppressempty=false>Pain</span>
<span class=[facility] id=[id number] macroname=PatientPainScale" parameters=LookBackDays:All spantype=macro title=#PatientPainScale(L ookBackDays:All)>3</span>
<span style=font-size:11.0pt><span style=font-family:Calibri,sans-serif>The only pain she currently gets is at her nephrostomy tubes. She will take Tylenol at times for this, [id number] or [id number]. Feels that currently it is not severe [...] recognizeconcepts=true spantype=section suppressempty=false>Bowels</span>
<span style=font-family:fidel Peck serif><span style=font-size:14.5466px>Has been constipated, more loose stools now with the antibiotics. </span></span>
<span clas s=clinicalNoteSectionVisible id=[id number] internalbreaksectio n=false originalname=Dyspnea recognizeconcepts=true spantype=&qu ot;section suppressempty=false>Dyspnea</span>
<span class=&qu ot;clinicalNoteSectionVisible id=[id number] internalbreaksection="false originalname=Coping/Mood recognizeconcepts=true spantype="section suppressempty=false>Mood</span>

<span cl ass=clinicalNoteSectionVisible id=[id number] internalbreaksect ion=false originalname=Physical Exam recognizeconcepts=true span type=section suppressempty=false>Physical Exam (Palliative Care)</span >
<div style=mxnu-muhqx-aepz:none>General Appearance: Patient is awake, alert and oriented, in no acute distress. Patient is dressed and well-groomed,well-nourished with no evidence of self-neglect.
HEENT: Sclerae anicteric.
Respiratory: Normal work of breathing with conversational speech.
Neuro: Alert and oriented, no facial asymmetry.
Psych: The patient is alert, attentive, and oriented. Speech is clear and fluent with good comprehension. Insight and judgment appropriate to situation.
</div><div style=xevk-mttxw-ajqa:none><span style=font-size:11pt><span style=font-family:fely Pecks-serif&qu ot;>
Comments on Pertinent [...] the guidance of her local Oncologist and [facility]. Please see below.

<span class=clinicalNoteSectionVisible" id=[id number] internalbreaksection=false [...] spantype=macro title="#MyRole>Physician</span>
<span class=clinicalNoteMacroWysiwyg" id=[id number] macroname=LocationPhoneNumber spantype=macro title=#LocationPhoneNumber>[phone]</span>
<span cl ass=clinicalNoteMacroWysiw id=[id number] macroname=Locat ionFaxNumber spantype=macro title=#LocationFaxNumber>[phone]&l t;/span>

cc:<span class=clinicalNoteMacroWysiwyg id=macro _[id number] macroname=NoteRecipients spantype=macro title= #NoteRecipients>Axel Palomo MD</span>

</div>

<div><span class=eSignSignature>Electronically signed by Carol Branham MD 05/14/2025 09:56 CDT</span></div></body></html> * PHLEBOTOMY TECHNOLOGIST Onc Consult Note <html><head></head><body><div style=text-align:center><span class=clinicalNoteMacroHighlighted id=[id number] macroname= PracticeLetterhead spantype=macro title=#PracticeLetterhead><img src=data:image/png;base64,mXUVZo4XEdzPMHDRCUfBObXBPWDLDSJvHIBQKTE2Cq+UAAAACXBIW CRDGD0ZU NDLtGQHXu2rFNGXvzrLWGUDWHs2Z99wDxEac3FgQhuptVUAXJYSGL91cPMcu1L9DSCmN5bfMOCbg40oK UacKJPWHZ7jQXJGAHrtX OuyISY0XgFotdluHKKpWw9lLDm2fG6jbRR3OMC6bNyvuof8DKUxLI5tFRecjyxzEWNvNxTuqLp0jYI2r j0dOOUcCnWbKT0VYMKmh gPwEf3vUPRjEIRbWnoqNBD1YMQ3VIU7INHyQDZtEfD0JbEkUKSvBwQmNnEjEDFpWDFoNAWwCdZ5jzIdH vHZStU7sTxdoxfxQKR3Y su4wDX0Cj14t1tpydLzh4QwByZ2WZkuZPWqMmVnavSiINW1pkKbjR7jowWuZiA2tqZjYxDxf3LvxKF0h S5rQOAhPeqxEs85vK4gQ qM5qYrhoon4eUH7Kty4dSP0Dn7ltq3eDA3gXI2sy90xkCSuJuInWD5uZHskyF6lQvEmXGNgcKEeBy8ku ESpaX3umpnuITLrKLiqr AHzfYQaJZ0dCoTzwI0xaeC2pJootN9moQ6vQNRueWElCf7aeqEaPBNtFdQqO01zR2Kzu4Agj7xkqY4sG yKpVrJ4tHhymnf6xRNON Y3yaFP5oScvG27jSqAum6KhZlQlvL90ZSByWE7vB32gVrOxvT6uedU1f2INuoN2Ehw6qGI1Sb0xiv5aV N3fMV8wa57eePOmDaRpZ X7oGSoxNP8CCYClzLRdMVO4BT17ImUgoH2bIgAiUPF6m0NOn63pFABWNS6kHGQJyE92d2Imt1MdDtDdI BKxOGEooN13g1DgTKXpl P1cZhXbSBV1FBHggFT8TmZxXlGzLNZkFsjBDHT2Ros8LlSzDLL4ZWGeECzjjXeFh2InFriCRIEuYEGhT QXlAYBcELB8BYVyAvLyC WY0BwWcGrS0ePR0VJM5XBXhoPSLDZOfCSSdRSGwUJCkRAA0HVJpDeDcDAL7WtAfUdNhEvgza1GdDPR7J ibxZCtfJ2WmPjAgqBylc K4vnX7jPvHdnT2vGS6lOI1lGaWflR3fVO04PK0zaGObP0KPZC0yyE2rTsmpXWp4IUEeLyAhIL3jKEMgM LP6ZiwdQOs6UO96BnR7Z HCvTfNsRIIwAMgqwD1SXxXyL6VsZE52VLV6DrvteH2lxWE8IDUkUeKqEYCdIxgqPd74LRF3CDx3CmscX CFjQvIjA0G0EXFiDvA0f CVWYAcMxdktwK8sbHRfM0HkHF77YPR3FlnvsR1aiUL3FCJcVeCkJENbZcisRo18ZIH1TZm8YalbXEZxN mAeW1Y4YWZaZd8jHGAep 9Uen0pihGuHr9R6bUWdqRUuP9SneP0rqi6bATBtSsfGVFm+RKxuGKV8lZw+rY8dJaCxHKd3KaW1D4U4A FAcMATcPMU9GNFzGigXF NA7CtUNIxGwENilwyUcGutaSeD0R4XgYukYCUi+JZvcxHkufN9swY7aSfCbQ4GnXQ36SA7tSRP8j7TgD bZ9mV5qKV26ZWnuoC7lq K8tQDYnKsjTVGK+OCkkHAH4fLifs3CNiwI0KMM5fG9zZWTwrlDwdJEvXvHdbEV4wRogiqS8DJ5yWPqFQ XC4tVJcySywJxbaTgJxN NA6OMT3HBIhRQLtRE72QHm5JIHkEYgnJHFcNMB2EwZmo6ILwfA7u5ryyi5iZxBoXj3mUD4yE4CrDIhxJ LfoVX3hWgecFDRkl4GZv lN8m24xaJjulcPLS0BywR2eTIQuWpFgCVkyfM2fpQ1nFZBhYwSjHZ7hJ1rkiW2hrItlFw1eYV7jHAY1A 8XeHwF6M8mhqH3QIsnex 3Rvcnk+YZhvlvBfFaWkq9UxuUP1dX0dGxJ5M6UdKfrFMWZ+KQpzqIw1bGHxERHsQvV7M3lfDMXyFUSeT K0hPSWkWm1+zuJ8WORQZ yBJREFUeJztnXVgFEcXwN/K+hO2bAK9FERnwmYBBq/wSIRevNpcURLmHjshvd2JSHabLVOwYWtnQ5hf/ QZ1iu5LccciCmLGjpF/u a42s47Zns4+zDyrCvIiVBPbREjcLLObnSn8MVcSAaFfnEAgFVaEeJDWrOEmCXfsDGlnHHVYfkSCQ4QXu BqwwsJgMKUGrLAwGEypg S7pAmD+K9BHxWd/jluWjYmI9iUSzaAVs9jTXY3lez38CYzmvBGBk/jsjQ5nWU3LSzHd2ijUNt7y4ub2C MNwLIMQAiBIiqJomiTJx k0a/bHrEhBkDSqEZBK5hYrT72t9z+vuhOhNA3A3OGe8AyFL0jCMco2JCLJsHRCIbYyIrPiX6pmLPkmvP ff6yOBBAmqt2lMNPSdcG s8S04HEMy49R2ZWxqqOia1p51mjEqEakvLL9bVEZVATMr0WTvLhEBrVzLVLv+LEEumob7+Z+uEAAN1pG CuPHngVw7Hv+lNcW1Kpo 1AEa3pj+8ef/GvC6RoEpIYjndOKOJFdBAYMWBFwmga98/oLf/5BkMSEiRPH//QJgLOhL8wEHsdbdio+9 bpXj+3iaKyqIf8x62A5Q yQA51SXOUCFiGckJQq7mEpCDZl5uoT2bX52lq4ZheL3Z7EOO/TjdIly56//X16sZEzTtQ8Q1bvQoeAoa qaECKXnq3gkiu13pdrGQ j926qS/v/4qFLfdpqYBZOjhZXUeRR7Uwv3pVCc8llDcuRuior9rblEdgD+/v7//tGZyik5gKB+48+jFq 3kcy2PEdls6jAqbR+zet nvJnEaNm/aggSlbUkZDtalrYpcIEIJtw0yVnD1OSuY3/OCCZl5C+c4Z89IAFsElQhdNp0FAs1qurnM9C rZCYTAYDAYDQRAkSRIAH LyeVXk6FDlRXgwWIg4VM3zRM76sZMTx1wQBo/ptgFNoTagzhZ2GBuf4dTOffqa+fdnF6AiROAcHGIMhR DwsWV7KFxXBUwDHNakuT 2ASfWr7l+3EMf9+zKzE0kixi05aaKJrke9Qr9Wb4WhRohmXx6Dn67U/srSiCk3sCSzsCSkjyAd6/5men c7LhTpy0yXf+1WrtvWCO 5erXpOkKYNWm/+DXaqMFS3cdg70/+R9N3lGot5JLHH2LKhkBwSxb40Wh5J3tyWJKlGUfwt6+ClJDa69t wkuOwajBnBRSEEvZfc2V vw9lixAVVGm/z3kuIG8E3lbq0887uZLLsaIWVgGKy2kvdf5ct10frMByXtnOHHtNBNME4YfM1sD2Fylz WdOnXocEUGLxEHNWrTuO 3ppw1UQhAea0qE1vQVxXdd9lqRn7SA8k328aeWX7AbztJw4bAb70KF5ro69s+Af4MZak/9+RaL71rz81 v049z2Kt5LqfYXos5/ft h1/kQe4lX10vIqdLMmUYnmwJKvO+/d8tIm8nubnx7zExmROPyicwyfQyPoJ6lbiejN6VFaviGIZGUp8a OStOnRZcejshRTNpXTd5 QzDH+GP+o4e6+ui4xFLYjloiZxPrmB2zO4pHq9Pltb23xxSnelGa2wY5Cs2ewFt1O8uOz9ecAiIwrTw6 W81npbPI1WNJCFLawwzY TWl0BbFjHQyD+7SxYsFicXHx/i6zWgj9IemKVhqRt2rOEd57vuH6auVttwYLcbGGfmf16HetunjYFMjY vghID2RcZJqZLe697CKU Kihq02M5NAvOuZ4ltFJp1m9i1Ab4cu4HyuA+W+AFRYGIYS+GTmqnI+sa2invA4Qpn+G8VvEJhBG1QYLf mpNbH8QFkR4eRlGc2+nt 1q0D9iguW8kw3QByJYeXecr524uW+lPrqzjDhDLwkP83CwoNr4hTVxrxVtD+a+Hi0dEXKHoWri3rrcXx zChSb778J3YsEYiNGsop IVohu3ttR1Yat8oSWmIr7yQOAWOYwLSzMw2ZLXqPwOGmHy823+HRz9+VMMQKc4rC0ZC3ku4VtZyKASs1 K0K944YQgzF3U88W6NYK VHNVfSIToA96VOFJ99eduvX9zwTwwzHtJSuSmJgb38ipw2pqqvRsB57OnO9EfrHpw4Vga4oLyAv6v3ss 4upCI4jKCA36cjYz8zMU fh5ZjcawaUmBLU/GCPBBYp41Tsfu33yb98ZwPPAdA3vKNwN5tblG/4gvV4/e15oJLXUXv1Ms0KrA+9Iq 1FH/0P25XHnHLXo7pePY Wpgz423h8/nj1i/CGZJPIrLtKgbSVTOhXAs5VGlb0Wdy72MlF/R/MLBCgsDqSmpDMPUq1+eOPdo2Bc14 cYlBegDyuQRDkq3x1zP+ /UwmTlMtkq3g3g5EcZIlLpeXddAHl5CXSVaOs7o2PX3/tnam12sY6+4POUWRaW9lXYhxFTRw8hEUzt0c tICCgWBvP3d0SK8VEVxY LO04SQpMBzEizgUhSKQPTonRx30Ra9+/aCl0vTJbbl1ukxijVGbti7rx18UtZ6XLx2+1Rlg411JUfPxi nbCZKFGI+Z8KLYLHVDxO aZFrMyJFDlh7FLPn0wOQyw2p8c7zKm0fCejIQNtlGKEbrd1ly73MehiJn9vfz5pwme2gJcsHYnkjZsxO emVpj9whTW+vWCFhQGKo kiStHdwBACTHzFB/PPnMhHX5vn+fbYNW9ffwg6EYihfuAeGtbTIFFbnEUtH3UGg8kSW4vNGtnKdzxmF1 BAEIARAAAGERqPRaNSqP ESxXrrQMBD3xwJjNYyJeVEZpyyWfqVG2k9M3dh+0AyYPPc8cJQcsgDk7JTmkJsji7qZzIUcUavNwV/wR BZPVfv1DwuuYuhMaOJfy 1GjL06a+qNci7urPn9wGBqluC4Xda4v7wJhEidQZVq5FhholYeJqufrvqFbKrDdMcTLOSmgmdq8lhm33 khR93qrUXQJZ7Trvl3Lz UqlD+4/tLqzFuru1Tw8b27mIrxi3mdIKUTNnOSZmUwXHBVLmKEa/IB5qKb2kmAMZlhqWWCFi2qMLG4ZZ WnpZ0+oSk7i0P6uu6Uec xkjm7NDoj/teIptfVGcw8iDRyuctWypd/AIKl/Bf+C1oVWtCTPzSRFH08x4N2XaiD90r/y5e+F7Hw8tC +irT19ntkNRQZ7w5o487 QvJofLOONHTztjqQeTz3ldg8zp28SCyb4stPqrNJpO2dZMX3wsUENMYeSVagxsWwGiTB73+vhzLpqalx frdau4k2bC+/S/jXpbxK tOle/fuYd8bHQpp4PbqQ9lOqeiwtFhNYDwv4tf9WE6/EI5TZ2yY6/GGKKzKeVNEUYe7WHXC005eXXa39 ePkX2cOipkNoApGjbKSg nW/Uz36/S4ugs45044/f/ZsyJmzi+aXI800zbg20EcNCe4n9IzKoRhLsmiP7EmpKrg/agS5SNGDPE+io 8t6+fPt0mNflKzaoxnU4 vkys60E1upg5T4++slGQ4uH8pG3MCTBTI1BaML4cw5CGnPAzIKWsOwQ/oeRKpbeL2f+lg3VWSn41LTro iJfRgpcHZymTZuBEGIRQ syf2SvJDByag6mvR5p2VzgvKd3qu/cr+/f00BCINBz/ZqdAzHUo76/LKM1kH7Y0jrBDCrp614XVDpqBE 7dHDRFjUJIxB79SaUNcj R9eXpo4s+ahiefr4buBj3xD6pVZ8a1VrurPAG8JgqlzVXuNBuc2wNbrg7MzdpuU0+zlzlBSpaXDPkB6P kl38fIa5+9wz3Cc8NUk5 zUUOX3SA4uhrr9hUD7NESTPTfNtAHPDvmiJByRrCGIvgPqrIg1alYyHxa79nsbgPAwEWCUCjXMoSatJT E2TB/iiZDhct3SXz8rKj j6L8XbvJkb9R94x6h2rO/GgKLITvwKsQek3MHo34DjHixyDoEte0nr7p7Pl7syXcRcXXhsIzw9hWuc0f HA8Wp869ayGqq63yJaKn Du4vFzqTqqD/OVy/597ni14vYateygeLa5NkeoXJ6la772WmInqPQY/G5QrZROcnuw4qz7ygwHYJ/62f ktOg4cZ44bFs/0NRtbAw elDIrcS037fUJzFI6vLJwtlm0K6B7LWRT7yAt5Nj4hO7Lh4mcH901xZc6hMMZRnjf5zONvHldPurF+UW xsfVw0cLMn14uvq+gxZ8 cwD5k6gOfkuJ5g5TVJNRUPr/dCerGAPVpFZn8p6e2pkfNwZm2pbOTIxa1A+0u1Tc5NIEJ3Fdgcnk7Eqa Ekn4NgtRKDX+80S2IITt OJsMgepFFEaHsoHVmjR8TkVj0gpLWB9zhJwMGQJJrJquO+AzLgqa4hLsqbFfcdui+9EupeYNRz1Uuev+ XfL3OnQo0cNeLFA/wsEZ PddU1pf9LB7fkeCuI1YIN1qMbNh1O//XSS5xzAFRdbudgbttXrwb5MoGlmOYJUcLOHiaPmNkSJCLPs5I rZehQsg42F3hC9RXvHIv 0uXbd+3ypRhEmU7kNphkoJhH9fMiENN8FmSJzGsIsAMn3EEe7Cj2rxgeajQXYiBP2Ad2WQwNOnQYkl9S 9CUZ09Alt8+H3pHgZM7S j7oH/pmbIUQZ0tr191gGSi5jGjPnGjhJBVTGgUN9Hi1Zn9+OnJ6HvpFy5QJyRWf13a0H4mi0iv54f4XR o8223QWOfplz0XB6ywYy l+Oa2d9EbK48bX+X4HrQLyQJUI3IbxoxrDkmuTzN+6QTSdsiBnCOQGjfu7+Jsz1WDKRUGt9ToM09b/3B H31gFqLHroZpkF52BTWa fJl1kmiaxACFFyTkz5P9gGRm29Ty5CIBgUfRvR3LAEvyE8rzGdX3Fyf5BWjZptumB2v3nJsQ+rnz6Bcr tV21qsDJqjNx0cxXZzec BI7+3pd+6tXgTppk66XIBxincGLUa2KwApNF9gKQRQlg41qsAQbQg8LLEJKpRDDN/Qsfb8JLbfXByLvR ty7fe/NpJTBftq5yt4Eh 3ZpnE6PIFqkfGS/2VYKrqWWZm75gEAdOfI8xAjpl+QhkMYUiZ4ujQX01ooH3+gi5OLlumNuuJfSSrU2j 5yDchMKwn4it/b0QN+Nz mMZQiyR/RPlGhWu8SHpizyGjLJqNhkF1J9lwf77qySMxg3YxbeAkbk9EcKSjeq2K5CSPw7Jn670Z/9Kj NG4f+8+bhOJQS6yHFnHN uzP702BslBG60onygGgaPEEbVcDFfa7b9fVVdKKS/an86JDvusHt82f6b2reGWsvJlhWTGeFsXx7zEsS IeEYhEiaLEILZyvCLvuv QmKegdePrCAcLIBemzPlqIDbpViw9zoWeub9Qwibf7hZ21jrDpw9fVB6aHlvTzTLp6e1IaEF1MXSvJbK uOJGl2piYeLbZL4Zk9Ti WRMo1N4aoB6l9rmhIpn5j/5Tcb0PbBg6VkIMIZFuhQWKO9w+zRhIRhnptdPqawWNhWihY4Nwjs7gHGdP plrVNuAZHMrUFLOf5LCy WnH014oRMZlD1LuA2zlQB7ZhWO+TCTVmN6cOlxiapbHThZpJdgDFHWyl5hhmKyCDNkFloYxrr4sENQXD 9K3Dk00C4UQ/yz6q/E2a ClepIC6RybpAroE1uJ5oOiXplVU33e2/7B6o0V9ijJOWXIfrS9S1aN+UcRLIYKmGFVlACGlUYohe0UFB koT28SFBji72hOVzXtqB hTEUBsPzwH2wz4tfyaJ5F4zkbxgAAPKCCWRwmC6Vb1LJwJRXI0ZIHSQCJfiBC5YfIzZwaT6EZb0X0ey1 aGvyoyNBWa2LRYVuIbXX NEDk9Ux1Bzy8CvIifnRwXMokzWuif4zIBmqEhpj2n5rTyhJCIzv0Gh6IrBPXJ635UgRN90EDauIzx7Zm jcJczNS+fPyLONZcpWK+ iqmmyANEPjPZ0KlHKYKLyEklQuevyMC09RMF1U3225UF9j6QX/j62++luxIWf5eKPfqhaFzztgXrSHHV VkWmyYHI1w14Qwtit3vG jcCNZagm0EpnFr8F34DOfDRJvNMObhef7KYaOrMDTYhS5lvadkqqgJP73msF4iDPP3czhDvCWhhwoJ6N /BIToUjsKPl8GjZLf4Fo 3LBc81iAh43LuHqgxPD+ed+O7dO45u4o/L51XB2aU5Sx3NPZX/PkTuWcas/Jdl3t58Z352kUL+izx4jh ZQvWs5ejumgsVQELmtah KFlWd7lHV8fGmMhKqwiU5j66rf1mpzYVhJwKqcJWjoZ7GtcCTBg+TAyScgNnoODBWwNa9YN5O1eh37YO MafLpcH59CKAOxGxVcBJ X0XqJuQMP54n62VFQHujaT76Ut5u5ey2U0TNPRuqPAC/siB4DytJ2xSHOQcjpyeGtWUwdt0XHR0FESwT tUf8tGlYH13n+Pp+ROkV B7elRKVscZPt7XaBA2qWFX/ZA5GLt4Wf0GPzas1VOpKAkBzVICb0fxjpZ/0pfqOx2RoAAAEvzid9s8io 71naGyvWPcdUQa753DG3 +Wq6OGKjmmrZBWr+zgGKIh1T2JR2+3x2wUl7KGLpC1NKCP8mUSp0hTAg86dZh/IjEW9QETkaAQYAFKy3 lwREpc1EqayPUSQUO9Yu Bernabe/Zq1rdl/JIFQbPRjtVpPUJZmr7//2gVORz3DJmId8u32Y9CmWj9j2uwXsbZUUwch/ez56UQ7tnfzy J5RfIRIFv1AV132ycLwp 70DcCavX2G5gZB+N2wduRcTLBW/WeBpczqmppxbMs3QTiVvpAQvGiMeeT19s0nIxTgya7XPpoFpoZess 8Ney4Pc/7TnC9cKCLVAK UASCNA/TWcKZeZYw2LFjP7ziL0DRuugnlMhofgZTyFXVcMlUSK1+Qjv5Gz66c19W51RpV9CgEg+cm7Kv ErsTo7dna8aF5r0cGHE5 fuDLIpyb323x+M8prUvF8i/Mnnuu8kCeHsubr0qYVf5kMiPST8wFRYLXLJKUmV9s3ExTIYli2ONm7dbA nVKT7BZiNjnTvsnZF28G i20AbXZ5e5OsvRfLv/0Z4g3smYplXp3j5paQZRwY863vUm5FdFg43eOcfxfkUwD13pYl0i/oYhEonbtg 9Xg6m3zi0f6ItNhLrzqO HBsN1mvXJ1Vi87PGcaJMbUy9IE819C3r/CV8PNjW5mgjywL9On/271ENJnEFr9Lejy9wQ1E2mHMQyk0n p3/Q2qRQEovqVIMgwV1b dkfOuzYzeBi4Fzt5bs4ofbvhPebfHyQN3jIHWUOtzO2zJfPahky369s27tkWBS3/ayWvwQYKY7STdYYU JOfm1BvqcWn3X4DKmrfr 8r18+BBZC744uEbiXbLZAHzXoPwyQMjPVz0ewT5013QAZqkJ5wi6qJv9P5bj2GpcHQyC5ZVHDyKdOubm RnppEisTktiMlJGjxu/8 8/dPr6+EN28wFPNP0695tuasFhCdtC04+ta4KtwMLbdIwkbu9urpkYw2BT5N2JjnVWSQH0py0BmcGAMn N+g1SvllmfIntCT9579S Va6hBNW0bPfa3TPgmgcx9GsYTr00JDxdRQsnD30fSa09mHh5lkUGFiPM0IPLRBzvpxQwQuq/njypZOMR k3L5N+Nn/S45YKrmvmxb MRbrAVMe9Cr4CixusjKVXIdHN21/TTE8YKK2mHDUwLHe4vEWTS77Sav4F261PGmc5p1dB4opMCzWgImI Ne8ay+tWvVhEwwRksjlb 7SjXtwkpNdaY9m0ya22Rqp0alukS1t0sOPtdpYAD5YUnxK71RcuAmvBHkKSkO7pa8jHoVn8WLYnrgL9j FMEbFWAkWSdBnPY8Ejm6 G05u4cncyuQiasttQgv2Krtx5Uo2iiVXHkDKylSZq7tIvEZCLCi7q3ylp8FWVj+IIiiwgfhO1MaCTJdA 3XkZVV3rhXF99hY+z7pd cKKpboh3+LQbYCnLhQhzftvE38xS4k/yApnafv1PDkO0oZv6MZ6n2I51qmevSPpC16AQ6/CWsCUBrDCw kBiQgJBkpxYqtFpxBWr+ 2ZMfHp9JQku3yqekZvCniEBgkM9JwDGHuMeU5cOg8gWN52jI0X56/sxjr//SIYExzIibimSKfirm9eIU UEzZ5OtocVBreAc+O7Fc 8utJBA7lKb+0/Y3kssbCE8kXsAytLalaKE+KM4LVUNNomXzLisNfucyLNPVi4AMiU7fBwMAQSJd9Yc8y X0xTzQuMAAUZYrsFVSRj uGDIqOvk7B6XWQMIIyZw+jo32wiQjhDHuceSkvr7aZXCfZ6/OnKlKdc9tMRitT2exHIg0H5Dy1QeLM67 d4OZCFViEQAPEBm3myo8 QTHcazRaDQaGIM+6kgHeqLVCPgx4Wr8sOub50sOhGHFZpDLWELMS9Fkmu0hRSai9LP1CcDoqqZgIcTEz R9jARPXCDrRMb3XguDQk wdTPGeW2ubAQmKFO0MI43xc3dncXIKEpOrq4Fe3Wml+thoIex1Z7QH/WbGxuxlp6J0pKPFWCkD7GzGj1 t52/uVsnNgCZ3VMlHyEH oBNPhTqZTZoCYvtMttLzonrYrTKnBe7WuXqnZOE7Pgcc2wlUMw7u8XJh1XV+YyOLJoiCoFJSGg8H+0hj bZAJofnmcRklAVwJv8AC EYJIOINWZvfgTrwzeF9wtjwPSEB1QSQUcDXgdVUjZhwlke5BwgZxqApmlxtJGvVzjOsCY8p3734t0nyq JxzAqrrMhUkywBBACAAA addqFYEWWogrEEvZTChMhm6Y+deQCnUea6NoqXnLL58X/cgnYaoXkfFckijfpc1/TJTtZopJdsNT97gO hrfsV80+GEjfI2AAaNjH s1bFX89I0cichxBnmIeAuGajw26L/uCGXebSiX4rKLRj4yWNoXwJTH/Qi4vnun4qc6spZDtb2uTVmyqT DYGqVMXXgySvJWm7ZBb1 SRsmi4RYbdUZ7CnZEGxI4s4BEj3NGa5sbt1MsP1GLhoKXPrExQ2fWLzuy0eqnit4Umk3wmJRIvkY+tHC ATGpxHqHAWIpcCyYNHGA CCVURshM6ndiuWjRKiBsPNfxYsODDDrGYhyaMe4U3iCrmDUzwC5oxfksnLDlmag83qCf7dPlYAKQVXeu AG6N9nULdmjzTUFOteb2 IxSGMlLPzkWwjtb5y1LGIQ1AGm1n6kYg4OgQwI66pzY/TuVVamIHLD4pCIB4cax4ZiWak5EDhGQnJkVQ AAGPVGjrsTGjrkdqmscD TvkqwXhYI4ZiKcPX6dUO0iOnXMyzE9bjh6s63iN3+/SosAq+pRcp3aNU70H/yFuOMcBuhNb0Z0ApzWe7 SZakiY4/XtaEgEAcAIhH J8frLRIUYL0VuY/S31g/f2zkWYAnOpJwa8z3Eno8My6gnQHbMtQRCeZhbDg0hLMQ2gyoCLALK07YAJRY teKS3KWkASzggl1/Rw7Z 7e8g3+nZriW5mydUf14bjT1xTjUg6Q9w4iUCDYauhh1kUZnh89+FaPXAfu++LfUMCEwNWkOw6Y17TyH+ oNXeb86GWX+1oZ9lStFw +U9e/VEAqEg+fW260w3p0yYMhWwoj5jRdIyKPE/H6haQb4iqIMz18JVhAHxt8VHhhRfMxmKtUToCMYs2 JwhzuLlEO9hzrCG9onTL vnk3he9pSOqKn81JXMC4xgOuBV+JzR64yuxz4Zp6JY5Wxu/7uUl8kdZbRhYQCxs5yvCYZIyIH/Vh8EtL UmMaZKnib1sPxDbucpg0 bXmWIXEIS3QCht6KbJYxEs81oj8k2q98FMPLdqpJorRZPwQtTbM1mm44+mcr57PaeS8oZCKJluzcquAK uIcT/9pe/gfvk1jrX69p 91uHSioLGKVZInEVxOr6miBCEYkNqiAZWdn+5SwjhnPlVxzDez89eDAB6F5ASfIKDXiw9Kx/zuq9fCAX QXRTDZgLcFTA81cEO24+ PX98lkQvwgv8L6eSNauwdLkbY0fQkzql4tTuh2rKavFoY0+43Rsu+sW03QJociwijv5Qnj0/f0vKsvDD jzZBkIRj21NQsYzz+Z+m N35ZHfVDGJHRh4QHF5XJfFc+48UIxiHdm2BxZXZRFHAMDc9ZDAENtskQoGX2dVTQXIUBsS//yZfx93tS DxLjpr3UX/VpTPYdco8W O2iTZ2vW+j8iKLdlv3GZnoqchwTCbRAcDMlc2FnovcmsIOJ0GA9eN/uCxPikFCkqRykbBKsqtkQyWxAr dHM9HOCHQENMNvlWfo9/ Mx9OByqx6H4ovRLVqOQexGci0K/b6za8mz3sa9WHiZzUIfqIQD2hr9EipAAFkMHjzw7wDbWf/FSyBgAr LAwFkQ/frz0l1+uh18Hj dSGGeXBGKjvlcPRqmmCYXShXyLUjAOzQy0VEFx4WuthtvMYGQCChe6EQnTWgXGSWMDKCfMCkLA9Ggcrl uakflBpQMUzRocTT6dS0 o3H7KHHyQj2mHLMNhEVoMCOQQaN+Sv7Tpkgq15cN2/5pmD6D1QKB8MNiRmONwp/PiFvUJIibvWlLZ4hD MUHyRI7e3ijiNjHfl51e qmkOgmQ2jwqkBAvSIGVlxrPlSLU7TUPhWiY0XDp7rs0xhTxqbaVmEdh3JGwdfhAPYRRjvkyYSvMh8tnd li82psI5Od2+tPFlBqww cQGqJIcMS9Wr4nW1Me1JKqu4Gk4OIf7MBbVnhZfl57M0oInTEyKPP6x9jST2SmixKkZDFJrU+fJI26M/ mHixMmTEEJZWVnZCkVOT y5SPBXahXBioXH7bScCLpRnzXZvzAelt/++/FeDt3/y9/MYF0/QaYqIQAsAIdfdq+cOGhUq0UF26l5Mi rZqtSJd9dFcBFeLkaYeI 0LFTL35Wn/tua5yuz2jLVc1hTWBTYwNOEUhY5Srt5mav0ozgLz8Tfzo5kJl0BbYXfAbrQN7eOZR2oCZJ yJu3+ZU0izVYNQxsnEtR IQWeZwdXnxTXPJUebUxQCU3hL4uWdi3mbg3u9d+Ahf75CHtB5MOatRZ4y+EeaqyK8igltErxQCurHWDE 6+rrRRodHTjJFLCYKCVC wUgD1Zf25C5BHXVoy1+r4snetUJnTLcUxi4pbZT1q+i1+t/PbS8ar9/BEUMBQiYZPhIWEcDFGsIho3FH IimkUDQqHHjeQsW+vrhL 4DkNz6qcZK/BYmi5Hs4+7huiAUKYo57iqMWPNnMNwgEXAqzPZ/miBuGq40Y/H2ortS9r6u4/iHa8Bqnv z5M5elVYTJlV754ig6gT VQLTwPE/LFywQEICUqIkMbLkUWEKIcoVEPEAgGRSAqUamLYHUNBcse8ZIIRbJTWTPdkDPHSOwHSOGgQb hYRKBFCpkh5NGDIxJKVI UatJCZOLsTGLKuPjuLDZOBLvnm21K3/Y/6iRVwz5+iXQcFKbGdaCzjUR7Am91UlQ4rywrZzl7TjVTpLs 0Jd1rs69ii3+/aBB0OUm VhuGDEjeD6BVQVR4XR8bWiADdaqzHSICHZat8qX+c/w2S67wvpo9nj6X1pJjqdcKR1YEABDkc2NqZc3b u9iSXj8WeDjl823xuNBd hz7pTvuDe1poeb9tvvjzQvf1qCrj2rM8+iHCz47xOOu3vJsaGynuYm0hElGUJQ4b8b2kAb39ALDHo+vz w019g4Zf9sMJAHwQcGT9 qfeZf3v9nm6u0Fr5LuNT775wka6Z18PSEt7VJJah8jyQRUJhp2JKdSnUj70hnqOYBHzIkCKr5RwrRknP QdF0HjrlGbj+jslxvyHS FvHfEh01lORezYc0hQke7kFIAdPHrAqyHbvhqZvKo8FmSnCH48fa9ZogX/gFyzlAGnP4D9iuDDCl4o8F RiGkSEMnrSt9GLdDf4TS E9ssgYcRyVE9+8t11td9+LOhnxSQIex5OvhgmafZbSWNG9sYm221DhVBnS9+PV+mmnjn1hgzyaDSpSJg 2RF7oVPol4g4jZP1c522 TYEZ2CQZ/V6/ZGDh/zK+mfd1f7cmd9gKPi/i1bBbMZEx4pmeRIE4B++6dS5c+Hyo7/9bqTHXwLWwb0+e ySL1UdLU2ezXYXInWIN6 WgsX96/Q6eO/B1fAzGSqxbHr9RhdaYrXncdYvnZa7TY8CLmxPNgtfIkfSmgJXsHhDgQXy+PHVOcWFOmT eO/aJ+bm/vj+AnmbXnMf 6ZO8YJzWr4fm/0etydo9a58cKvq46U56GQC21YJ4LgnAl9hrQU/Ln/z+g2/3X/dWOzCQdxI8t5fcE9u1 9txcXG/r/ksD8ME49/Salguero 4i7Fw31BvPY3yoWr7J8SvQep8ej1ICTrKMQeLp/e/EcKnXd4dk2Bq7hBf2xYhMldJoFRhD8uCJYkGCTD IYQqJily6feYq26nR2rL ye6qHrYAId9quMZ3gNSaVXTg2o5/BdSZUQAS57v6fUgpUlvKcXZf4f0P+DvVuyNeOg9mjUGk6XQAn7ot HSy+cCBxKWTzFdLFG9c9 ritexHjn5QzQ2Ys0lWmuGvqf6smLyFWFvJLQF4GHhQNc7eu1lZMURZBoZGq39CBRmDUHO5+iDe86Kq6H XBmCMk6pwd2hIlgOarsV z6+NDtjB5AEZY338zCWY6UbBifcXuD4lTbVwm855+0l9vBZizxBbu0s/bpI728REoxQSuoV7Ia8KVziR 1BMEH3fo5GzODsbsud9t L3Cfvtz1UBG65VJc934dBRZfy3QyzwXytd+9E7uKv6Iw2/f/wM71nAZCzz3tZsQDMbIdnp66CWWnhNky UbTtGkzqcxSIXIcd/5ci Vzmmnz4IMIwcyx+dc0952ZmXF+NWhMeHvbg/y6zPhsKdBMTo2d7ur1m+Vtzz6VyLKB7pocYNYdqQmZty KwlCSuUsJRU0yqANvPqy wxGokFYGa0n8hbAvqHCglr1yhJIlvm5ykgUJJ7mMGhB4Oq8Ac1qGzf9t/smVnswHL8LoPKz6+fbrHnz8 jEneNK1ZXNNKSquQKQsG V7MnoYCfUIxRLSu90VXySBiP3lufFMHe/l3xjDOTi1LYzk1goOZv6ojhZENfKdwdMBALoXe3jv7h9lkh Hh6VnRt6jSl4sgl7gwvY D+eg6PULBRqXWVFRBmh9po3KqYllp8WQc0JiZYvafn/yNPb2NlY6kFe7hz+ay9EHg53X8YgTMKfwOT18 7frcfMF2v3p+o9f7FJwn goNY9vrEqQtFLbwe6L/tkpZf623/0qQRN4mbc2iK2wxCYHGSN4r+0xNXCfVoOZJBLfWh2wqPswi2+PrO 7WeGYYUs9W/2nXSvTf4s qWmLYbfy18wyy76cCzllRbTeWsEsvlRmydNk41sQOXm17lQD/7Ytr1v/359+j5SHXowkUDEV6mFqWGUG iTrO0Vao3yMtpy0+4aDB d2Rh7HkR2dCYMcT5AJJChZx9hIFeSoNhfrjnce2cRJClMtNqTQ+/Z6nrdih7vOX1DIqVHuNjf41NnmQV hRYto33a7jyAGGvYl/eu PEzjAjcraWxhlfKyfvzgeT1n2fx3JRcy57/sVhcUFE/nAVQLitCDh07IxRG8y9+qC7ddEI7X0vMrYSYP Kc4uAVqYrjhXkEGMHHEc qJm6unRiNMK8CMh6+p1a/XIKVbv0Wb7nq2+UzJBCz9ecRd/4wi8Nf4eGmalxTGHnkzXLjnLolbV3Qr6q i1MJ9ilRmpeAg98XBsmR ASjSWUe2hoUV7XJuwCy2pwYbx8aO11LOvyQcHPG6wHu7a3kUYi3yPNRvmMhEK8bOgp/f/wiWF64LrRCr g68SPcj2iFV7zd85+aNm +go2Vo72tJaVEzlYOl/Ld3mnUolW91h5CAo2UYzriwhSpG3tp0+IYWpuTvHKU2tIQc75ybi7ODydIri9 V82u94rhnn5c40GLOtXK cis3KAe15cfLa6hzeg9Y/XNN/C+L1tNj715b1enpMwdT4gYg3IOfY9SWmVDKp69f5ZU6zB6cl0k+/v6+ ht7Nu1TLFYjSu4hDt5Vx hjFgp99hfHqbkqOE+gf93pv8HRzAij9QTSezAiLkETrYehpv9l63KqPi3Unigq0G2/Rlj7UDEyET06lm htU+4IWN0Ouvqh2Ok5f6 OrWqNXV33BXk5dGMcP2yWxwJ99Fhm7sV3msP/f4+/pt37rN/OCjhw/4qg379r3dOBAF4EAr7Olk1/j7+ u3Y/kf+0N07d/r7+jVt2 GcViKv2F0QeYpfDy//y5Uvzg+AVpQW54ObQQKDwSypomuedu+9u486dcFu9rggn6cS5TClTtF/b1nSHT R000HMV7Diebho6zYJLI mWDOlkz0wNaE3K22hlTpVg86sIr93sJjGMen/utv6/f/9y1Os97fdSEFC5iyO28KeC6jyLge3bMLLBsN /YeYOthl0T2w/Zsf1+/7 v96kKf5yuUNpBAu9Mwl3/OCvYoaZxOiTVWoVXUjGmw5tD/Di3o2PMbNaJQ92XbShFgRo2sczp/vvsLT2 fwqsvjVBlHQxNx96zI2e TN++snf12/SFi7YXI+2dStf+G762nCu9RQpaerG50+QhCp04p+iYvjNHxg90iEbmuTkhmbE8Qn8dcUPT Fwl0sk1hiBGAH4ek09kV wP0tKo9upAG2Ri53SSftCOpcbNnKgIV40XH4yzhdPnUfVtLBGCA4gyxO/i2kgU+Zz8c7v0KvAvZteQ5B kuHAiNOSa7e4++v02otj dHKi3XgOoKs45v493JOXKLo89MM8AST1svyaw1MNmlYdDvZ478EM5oA2NdK/QcO/Sa735NEwpSDO/Hww AAYLVEf4xWKn2Gzl9do0 KqdNRxpgxQDCAGJYtkfvWkVFC1Ql3NEM8seL/4H9x+wKvMRpKamxr+JN+36+AZsVGup1v6gs2Jc+S8Hj 2dgT61aPN4Mw6wVsiItI gyMt07gLuzz5egtqGj8gvDQp7lWelw4/jtcm45gu25li/yeTUxrSkfZ6nI6tQrPsf49fVPnRUE4VtHnb 1ADiPc81yzzxr6VDcXyQ pwrhvguuWrBYNLE2tnnRHGFeRw/JYhJuQTAKYap3yVuOVd6h1zmTD3/syGDCn4st2fd8E0aRb2PV2/Pu YQfT64kemTTQu2KBppw0 fwCc+fN9/E3sl9RYPosVS8oy/Ez9a58NkhXCt53ZWrI0Br3evR+Ih8z+blbj+8ggjs20UUF/l1j9Ltrl 23bu/qjKJdMdSZI6a6Oy Cr4s+Z5SmXf/v2+xniICU6cLugp/ll0PoHa1YnXczoT7Hs3A0hR9un3+qBKbWkR2G5RlYnlcrBaV8wYo mdPErICZvSyaWVq5ewVB ibb6yl7uaaTIhyORJaujrWdI71rcn1oCZiWNYpyrRVtHVwXyAZt3Mvl720UibRn3389b0rSs0RSSa5kR JpigRWl46pcnDy9Q6dQ6 w+DBNQMrFe/vtUsbt+85dZFfqcZGnwhXYRqSXUIOuJaLA5apptpRV0+BCUjUqBOu93dipqwXFMYMQxFl sD9UnfFhsBpLrdamjX76 tgrB4z3/3kPrpYcsCfAf9+PBd4+Of8gm51QD5y0agxVHFEGWBQN6JIVX3KBEM5+jKQSkgz7j9/8PHOWV QGSJIUiEQCIxWKhUFhQO vlZOG9+YWWaQvBDk13pJBLO69pLWhjFjSz/z37x/EV+mZzUgW6kirGJ+q2wVTxn5WgoBP158cwTaa9mS pIkJ0+etos46rauHTP86 71ymFRSqnQLW5gnU3JqBY3sIZOucXG06mL700X9d0+/evWqX//+C6ItNBfv6m5ciIbeOreWh3tSxsjC8 /fN8mW/ab9QgSMgPKIP9 SRl/LBG0yqSfub/YxSvCJOuCD3towPDuLKMfQ6ofOnCqISD/fbmYd0inUi3HUP1oMfB/95jUSfiBOWD9 cHOPRQ2p0/YwvAQ5ki6D N9+flJUcIcO+M1YUnDoHOa2cCNa3vkKB/tmEm7eZ19y3bYeMxnfZcjmIpc9/Z/DhMZhG4Od76CM5y3yM Hm88eTIybrfepUzNGO+0 IHBM9CSIOmui9D4Fy+YHaiu9Kpw4JgrHQVpHj/9/vhXsSnTULuuI7S0X8CRp8j3pOXrbcEnkgkhD8tNl JdhWAo8n3ygtt4IACCka Xpbi/KPTsCi0onMJqLpQqsp0+WD75KpDlB+1U38w8uXUFUxfXQaOjbEDtk9Y77A4In881ovwm+6Z/du3 liL8H6kSstWa35Buebh4 3Wt4VvSbdJJFY+/qjN54Ewm1JpX466GGPxghgSzn1k916/hT/VU3pEt7+rVr//CuqHRXn2vDIWhPsa4i L4ApAusDJIRwVsBrr80x t4nyInCHy6i3HE6fZZ0+rd1/NhXdnGrZ614hEJeTevld04FRPHmtzQYRhdjYIcsAupBZQgBL/c56Rfgh Rox72iULxeYtaEf3VFJD /lt/uFDFUToLSY6Da5/zr4b+PunyMzMTExIrN+hhC8TB91qs/jy3MX9Wl+NriLtZZBYV0Qn/mpRCgQCq tD7J0+I93j6p36s+Ob1m 0k//ICTX0aZIwic9oeJ4f30B//mDQD4+vn6+HZ2FELramn23h/PGRkZ/PhLBEZI8h3p+GzFNsz0xWK/w sEDb++pstQXLYSLxZf0O q+LvqXpZJoTJO4LP6oK7Eb1CxJDKnJFi0X4tnk2QmQe8Jgoh7lxoBHt6k5oEq9llfznXFw9BhoKPylb9 QiowffIAODB/nzUQa2di 9APAv0kpQO6gEyKHlnB/f7gH+7ECIdNuKcPFJYZ1wlzK2AG8sRWwCuEEi0ol5fk1e/dZ1s6WDKG0W7zg CqPqI88kgsK6Sl/bldAh tQAXZLrTWyDn2W1ewk2o8IfO5ojqS2lghejrI2V2TV64KiTCUxFFqlb/Pj4+rW10CqJ5Nt6f7K/z7kzZ uJVStnOVUkmKSJi9beLX TYBPgRnZxfzVpUyV/arNxWebglzJi0DUt8LVUXKUUlVIgavWs0FheT+/FWshfaiOzNCh7fo7KmboiuXg Sp8WQFy59B0PvWspzb4+ jpp2f392NCKD0Ecks3haB1CTGl0J51dd5IsysljpkNYwBhXq0+/OvCoMTuaanb6DgHBB4IoJj/erXt3A CeZtNMgN2e0bef9qM8tk PVnhX0slG/LiDG6BtAcc0eCwIc53Ceq5hXsgoXZQmJRWIUgyU+PPaLeIdZ41yUGV6FN92kbE6pbEKYVm 9Ggp39sZD7WoQLO7DeUD ndq3+GHceMNRoPVDoWJ+x9yrOf9vJNAl/Cu6Pvgk1ur7IN3hz70wxFN8hz6dktVqt8eCoUwsI0oIiRkH d9u/8vIID66ry1mr1ilF lx8ttm85NJltz6+tdP3PYi2OCkHpO4pBsvCEVAwW8dNsRxpY85TXVJgEp7hW24cVKlocmBIOzuLhTMUe IkbMBiCu33WeuoFxejwW 4Qq21XRXGxQGo60Z1ltK16oHmjY3ICLFLKK86yrWBySlEpOsNvYxmBKWSovwZFo/Powvs79AGjog9Su9 TCkGjCl0gBwkYlCtF5zA uvrli18/z69VX0PCKjNT+M4bv/kkFHWZylWUjXFmd4bt0tCCPYCpXxDU3Q8JQr2/9dn+MiRABD/5s3EC RM+qGNSoWLFPn3/9/3YM a9sZ3pVxxVsNp+Qis0BxYemNyo8v0kadasayD3ru3q+b8HExbIqo2xZHRfvwsLoT2WqLbMY2v0wRNLm3 IsFjPyAFSq55UebooLmQ FwgEJib+V714CFtMwthn9vw2a8/+hGEut3Hb57mn32uSQq9e2ktRQJC/1cg+GArG9+wZ8KlEMS/ruM/d EERAtNbnCjqLnqvJPBeA CZzq97gclZ5d+iYd37KowNz4NVo8lJgbIIgRd2bHLfQppRW/gNMVeZO9Cpgi2sHd64iPdL1YBnb5BqOl b732UJ5IuUvXzfz4ys97 OpS08QqJnjUVd4eSXO34UiV7t5YLJafTsDNntYyjv01oiJvtlxqWIlcZW3KJ+px8BV1C/woieRzC96kH eetq/6hZCxMHW5xEGq3b zu+50WUzJC7HzHq9cvrzA5OmDkhFXPkv9hd/ZwA9AzBUSwUL5wciGNVmx0dHdUxGD4gz/L4ib+ffi8zz 96nT5/mZH9Av/8M86seP xHCr9npFzTMWGAAtAyDYu1mQ8eSaXWSuCYRJsl5VCi5aNJjcurFyKww/Sh4ME3aIzFclG9QnEvkjvSJy XkdyhFiRlzaVszV9CjwN jDlDOZBon1ojvmkrt+dkECNxCYoFmFrHZTjk18/srxFvlPUG93dyYikayTIv/+yaNGzZ8/iSf2fObgfC x41adbucCTQtaRr+Ftru vof7l9Zg/v27F26+JfuPXuYDzN/BB/5VuJ5jo942354ob18kacutw/rTdSZ5ScBt2Cnuvqt3AJuOzTM2 Tt3/dlnB3OQCZYYJcRBx htEPWzWLCyfyiRYiM2lfh8gm1+YEEU4P2h/3UKt4jJj1B3CklgFqRbwMxob9qapsPPaue2W+xfkffYRK VFEiVyFYDo81bKy1+3t7 s8fNupUF1jNrikeR02xKqLUZfCGehZNfHphsz/Oyc6+stKc2jXsft052pOhPvmtLSTzFe3kFxc3FGRqF eYSyu6YUOmIZmAJ60sbN PdicF6XgXfkihd2zumcOy60uZgnTx62LyKzqVxguhlnvwvmghybAIMFjSXnNQrqZfOGNIrleoVdLF2xw 01lysKc30JQpjUV1tCuy Hgz77HQvc6ucsVt76mq3/Tpq3ppq9jnsOn6XKFmAIvm/QvV6UOjEV4X3v5x5i045XFGWNpe2+fPBw8Z+ qYQ11f8saVgLZ1JekMQC JRR1DZ8YFSFexjTVNX9LSQ00tqug8dr+0j4sbX8QG71s1zqKkNJx4vOAyC7g9PsLetInk17v0/lJoqmp m9ifg1aIKohmUssECQX1 1RqHeryy3Fi8AO+iB0pM8gN/1uGnjMhtOWQtpK3BlySNAwX0l+3Xz/e+wV8CfdKbLk/Z3kemg4a8Terf 3xP059xwQlyeRTFbrDd1 PrMMEP30Svs/1Ub/h385Fu2J2HVeWt7m+MBFAatbvY30ipkQAPoQAIKidyl03708FiI3rO+da956zEJx Ffb1IvEpmX6dFlv/+2F7 tSlS+WIVIMdVUf47Qcw3oj3w8skhY+gt0qMagoXjsfpWv8PshnNaqQC8Ul71gO0bRDq9d203mg1/G5gz Zp9+/ZaicO47W2nubJ+2 LcqgVw9QXUC7Is/zDWXo8dsbs7ayaPCVLScPkS2TnLmBILn4opg3b96i5m/AkBiYuLkH3/H8GLW1ubPc Bp4W1QbTNCa1jAYGAbIp kk//Ztf3Stqy9iEnU0u38/b0npOSTCk9e757FRudJmgRX5+wEE5oNPZZ1i7SIBIADEeSAn1QV0CT7292 yjMv4Bl+RWnWGTg0Zk+d /KifmZTmFmwWpffxv1K4w5C7+/b+/xo7gjy39wscuvHWPbH+laaXmND7Ac3bfXeO5Byrmj+vmQT7ufGt Xmstfbg/IUL+Tnwf+7ev XXzZonESg/F18+IqvWib3jDX9AuxYGwIreiULVxOVelLY0/pddRjgrNRBNu0GNfs5KHdZiW2AYuFHFRO krR71Uo+JlDS6Vq17iiO jgjELKF2Usho23TNRLG/1Zgd1kLkb6jIHHk6V49eyWCszcq+UiRjjck7tIPp1AXsdq8MnZwbIwH56/gg MiDCGEdCkr1opQD1CfZ4 bQFWTq+ChSkC0rjXSHCwVoxkGNJ9arSgqpBs8YitlNmbdSEVbUPYKueqH/ZnEw9DdE2Rd+cPmPRArexs K60n71r8fwJs1jE2bxy4 Wxo4dVsz+VEnnWqPu3eOcctxuGUckJ6xWZW1XQzW7oWJZl2sbXp7KlAxxETTIdvj0YXdJbBqPUdCOzbO dOp0Fxh8kqS2vPlgHR2k 0NS882O4XX7muVEdz5/AICnp+ugqujR41BVuLsA/nyHBYDz9bs7c/p1C375noQN+4CqrJe6R/5IhXxG6 nnmIIMmRMQeeqXjfcu0s 01fNuULmp187hFXl0WA0yoZlbXCtx3MDZOxTgca/B5tKikO8zgKtfMJlj/aIjV92kRJ9S2aysEwDxwkB VsUs6Xp1BWqKxYC4FnEy C86Rn489y2s167e0V6u8xNuP2EvP4R3ihalFfozpIKsmXIPpEG45AehPxgw4u40F5m1XMKrRi3IKYzG1 gbqv0G5mjl8XALE907ea 7PbOaRePCrIhNRuZRJwLvRm6j6kvtMBKyBJNz9PYHZihw7Oqy/lvZd1LNRfZho+fetW/jn0Ylxr1TYI6 w9t8adOIwWHHl2PKjopC zgDrdRFHhtxgdoWKjIr8z3fgaijbOnmVFg2VEv/jR0aD0w+NZ6FpzyPbdKExlV1YczB4nTpEFKhTl44Q xsDkO3fcc8lijpLSk0CE VhTax55gHvVMtmflt515/qfKVJDj7wRMumg12UrIpLeKmnz3wRyetERPj0s0g13YGAjiXwAPDiRd51G6 RVk1jCaca7spp0SzB65T q9d6+olya+FJu31sqlLbs2et1D8nIHzqAzACgdNcTA6c/klwZHNe52FbOy46rH9r5T4+iLLr0nkqt3odea BV+QJ5kr3zq2DeQzX5Cu a5qLy780Yhu6yzezUnvfq591idipx8fz+gtSExM/X7u11yK05JUn/gR8/tBNDYavnJJxPnh4RsrG8hrw /CoUWvWrlkjFosDAgNMf ijK6G4vHWPqSsEAhLlbD59xdNVjxf9seAVc4Md1Lr31vi/43jWPP50FiXOALWgM11bu/481z1QEXo3ns 5dwx5wviSEi/uVLl5k+X FCKuBNe69+MHHFKjt93Q0KKNhV7BUfy0+4eVAipoNr5GMZfgukIDgWW7Ft2Qq4ep0e11CHh1/9ISUlRK kDKg4foAfXDiIPFIH9tE edm3XCMTWt7uCRU5/Fdj1UxPx0UtJp3T/v5s+t8CLl0D+u8C3sVaHi9w6pKYwIBgGbdcH6/f/k93qJSi 2vn4teG3kQQlyqWNTLxT wUmObCKspaG6858b+6cOVqNtk/eemXc7S8t9HdkjWnsWPN+CYJvatnUnfkNwnyau7OqWPPV4mlUzGqNW F80RS4W+nhACeaqOy8Mo z7+TbxAKKBIUqVSRT9+lTTmlaHUug0PcAHdRWdn0i8r/GzhfKSGd2vstf+7ju/TTLFaI98SvGOZKHtY4 z38Vl2rvdgraoKfJJA5G Cf9AxAbjeBnmCqeNKOcn3K/2v9w06FRMsVpLiHB7qfP80+gb3pe3bq94Qwp5URJaCpzrWBEbo6kOyisH iontBg5qRKXRPFOEvzJP J9JmjXjm8htK8NtcI0kQhmviQbc15nuxpt37JtQoIgO6m+PGDRDmRlhmM1qV+WmPqaSbXGQkfkFqB69O mJjdQZdrwO3tTvQx7vg6 hhzTdf1IlZTSWuGhYrole7DamZlw+gjHQ9MN5ob7RLzCJ9yAZRMjc6BdfTdIZBUDPI56rx3542wkiiWT bv/4T2ks08gY/j5+eWPm 5ube/LBrF1yR/C3ZvMb9+pRz0PftJT035+fP3/80H7y19i6fCa1XjOIhP298/PNa8m5e7v5Yx7VjjE9u dkz6UfMF8kYwmEl7lw8p ZTJZr0q/iUGa2zIWOjDP+UQUiFeCmTqZOrl9rOQ+/imWkNGRDQMAz942ysMO2kKDvTt3B6+mkQ0S6V9w RBezaCtaz924vrht4r+3 F0lZ93o7mEUEFKPpaXROdHzQl8gm/jmnQrEJLhYZtkGM1jGY6DSFF9cHa1czRZKrGsWSn+/Ql5hYeDal Hhu5xRfv5SecMHqh7zeq qb0ZWntDZiCMxKkhY2beemj/+b303ctrp8mh9/OPq3XCYHK1t0khPZAXf8znxsbXLBMF/mMmb3aMDy4Q GmZGP0MyIWYqH/+/axOW 7563UJj9vfOOl+0VB2k1i14r+/G01hx9Ymnp0zmRXHjntbjD0LSB9+u+BUZwYcJX0Yuqkdem7q3QPjBz UaUtFotyzIkSfKViRASi 9Y4OBeL9K24Qjl08KK1m9tuJaJ15KX7e+0mvGfEXWXhLNXECto6Wn1OCwGPmvXioF//6hGtw9DZqBKVF BRj1l6vupXgV9VG0Vk71 7i571RlEN2J00hMkoViEA6HYDT9VHd9f29byimYJNo1/5fJd0ml8NN1ept8jKPihlpFUsOwG3+eOSsSi oW3bsdNewakj6koLVVL/ 4ED/6mPjLAs++D+k2zFu9P6fwTBmSaGFODQYAF9CUsuAVJ09lFh99UFZsNNEuhj5w8H9pekzcyaf3Ubm 9Fg16MrC1qWblDcfKkwB o2LHJIhK44aQbb10nHMDPYraVoyoMc9MuYl8ll/8eKf0LRPb1E3jnIi6NlG29CVICcltJbgZFruUFmC0 8eEJWBFCC1/3ISHq0On6 +Sjd2wSBymoBi/Vod2dkQTSGw4dhylYkUzf5qowim1ExUmV3+nkF5mfeMxNqZtqxpX3+xrMq8MdwAxyO Gs26hFUg+4vQxsSIxTW4 jzIx2PsIlDhhlv957USNfk/KZPYXEdbeLCZ6OX9DIiOf8WkzQzIyxc5iIim+cJgMJh/A//Y+ToUu3S6g rDCwmAwpQassDAYTKkBK bxJDdXofOaFy0UVJoSXopFeoQzzgPJCSTkUYupOAjZdsNmKa2LBKkYRgcWktOfeiVHXGNjVOtgMFnUkz GtUf9ANUrBDapPsdMqgw MQJJJxKYueYMbBdlHvPd3LICeIXctBudMdauSZVDHcXTuwYOePziCrGt5AOFeBP+nj0mSbApMGeNx/++ SAfchgz6w1eZmm7a50s2 +joKBKJ+owfveZUmy6yTc/t0a08jVBB6bc6C0aAmbIsDvY4Mjg49yf6grl166va2d2qVe2YDCEl577Ol qBDWzLmIjRy0IIK8251i thcp3REWO1ps0/M9IMu5hzuKeaMd95EH2+9jmTlUHhBBOmBsjhm5j6tYgAkrqn/OJkd96Lctjv+qR4+f Pj/zOjSpcuuXbs+ab5Dh m4iSISDbIl/2s698jxv//6uzW3DHKTYTADLZDkvI8vahnLxJN5LyUrXVC6rVrVHH2AK9eZrA3SUf4277 m/+tN5mgwDJn662Aigp5 uICAE+ePCkk/mRznsNNvh8zHVhUzXTTeIf6tXtWVfYpZR3hPn3HGDNO1bEVz0gUgh2CS5vJtMnIavMSb 7aNAGh416Wdj3L5/ZkzV PaM3s0Fm5EMPDNlzp8/3EsJv96r+MQ7U1UK/vnXYYk0RMRG5TUgFjda+tBnlPYB6jsnHYRMtKEeqkB55 bNnBSW+UyUTJNz17mK3o dn0917nV7VeKS0cDu2ernzJLlQraDQDJ27sHaeNvgfh21nSg1p+7kHGudnpZsfYul29+hnh04QHjodaB blVMg5fEMPB0Hak9Pd7Y UytVv/65902W9G//v179+3mRSImRmv352dIrObA78scYnj6dnLznKn1+A9i7jt6azsQsQK/rIaFhTVt2 zT08fQBFecH30TNXw+7b z71SeYrjFRbE69NGKtYDPiXkvg5lL/m9JWMSLJt3nCIOmqjI9mTgAlpovGJcZcIl3u1dPmfWd8Rhc6Se y4u7oqOFGKOw3nlEmL03 7/z2/mJnUdo01i28do/BegbS9z488KXUto/BYst8cb8H/Pbz58/NnI3mjywEA9iaSpOcFEfvQgjyUOGm sY49ZfcYebqeBz5umQUX vmg7BEwCTcoEMcJTEtZrNPLRYrANOwehfsQQt7gGGWif5CDeQwo/IdkaLUcHYMIyIaAxxFl5jk4vjWFJ ORXWFlZWQAwc+bMpKSkw wMWYJbnSxQC3EOB67OoU2waV1Br0MaiXU79DXA9Zt13xZk94xJXjlGmq9ln7czOOOnVDKPOoru+88H3h cr8s1itNIAp4NkbMrHzV nDgwPztjuHDh/OuIJnNYRQg4hoC6HkMhgXCj7aKiHJTVCe2teXxTGMIZB1jhfHiTNdPlB68Ud7v/Mbs2 eZwF2cJLjIFG368lhRlt ampvNJB7/uAHwHcFtxR2We1KvstkDn0iGmk2sNtlUkMll3uYAg7+/jfB8QvHtBi5XejbUTfQXHJHXbvU p1Tjw1Rq0BV08VIssQfs JAu544knjCwARUO3KM4TIPHf9QzznIm0l+mr4py8y3fKmOWfMcEjcOnkw//rgwzPBjLXJSsBd7UwNd7o u3OnTt/++06QGpDPhlI2 aPBO3SVSjJQThcSG402a60Md6VaJAhprMblf4r6RcMvxK9/v/bM3vS819kJ0A+C8sZIg6Ijgq30800WI p9v7OshaV9RNPCTTh2UE UlKUFl+cklyShJCEWuTWlrlMfIba0wKBZ3K5EVyj7TXqAcNcGTPO0uI0+TRc82s0k95zvEyvawl13788 vYFpQAAc+bMsThYUAtLI pTKFWyvBw24+JkubhtZioGnFwXNreRzXd6ZCOi3cgjmlgHmLbFbYJ7sujfKL4mgW7jpuweKHJ5assY4G Weu0Upq+YtUoUKF/FY53 MWtICJJ22DaGbHXT2iTzQ6d0NXmQ1Eko9c41RnFNdIs5KqnRxZCyNwFtB/x0P3PPydNzWdMQg1f8cp/+ uqrnJycQhJ5+fJlMbNDC ZllAZRozhXPEg77Sc4dfiAs9W5OwJYd3lxBhBrfHyiyw2+NXrHY2ur7+vqacjRhNYUaNWoAAG8+K4SyZ scIvUESEuHvl4AcdfLMa Ntr3VWeHYOk9yy153PuS+7aaHWAz628HRaXH/1q9tSpV5744905f+/mTIo1ZDVQchKdrr3MVDDAAUUzr zqAKMGYww6btDmnNm841 vkxbIq0LJ5qAd9xTwu2ZanmZsJJhY083LvkfKwhdEfzE19iRI8YSoDxAEEyb890a0OhjqGXRiGj698/+ +23cePGNWzYEAAuXbpkI R1s2neLNqnaC35AO2GmYROm1Re5o+y3dh3i3ynGe2JbRf18EiOu+rFw2Z6T2wrMLZg1MMR5fbJN0+Xt5 RabDiXElZn8EpKPCaMXZ s62ekSdAofl9TCzZrx2knw2WlD28P/1pahcCVFpcDtu1lfgyPKX2qgzOIcAN04pUHohHWU5M0H7GVByZ LFwcwM9ZKieqI/SokuIE Nuhqz8D1nWUs5wFNLia+s9H4W+MaLMcAuSDCz2xboBMffp2Sw9p6nTk5ny+gcEqr4MCGMSWdi4u4h5l0 Ntr9lk08uItliT/ERQUZ MjavOjJJ5v5z9b+49atW/xIUJh0dXrGs9AMtwsxCaUFObTPDmW3iOjJ79/Ekq9Sderx8X2BkhusFmP9r 9bM/Jdstp5AuM27e+ePW CMFx3gxgYtr6okYpGFN3Fw8udOp252FgIqUW6v1uOObZt4EKrPs1vZ72bkGAnn3vo0xHgC3thd9kvGZW UFBv/lyq4x371+/FYlEP j4+yf3Z6twZ82hsN5+syc/z58+vXLlichMHgJ9++rwg8px4fcl+/d3s785kyLp6XkjYrjz1+/dnWdZoN T8aEJoMrCmho1Q5Xd3kq Jg8cknpurRkAj2v5ncWcPAJW5ej7En5qDX/mAFLhE399a3+/yOlucInZjkzSg7xocCuiqYOQa5y0k47v hKVYY3VBwFYjOprQOhdw iMlTghyRJOBBkSQrVl1W83akmBBupXabEKl1bw//vrr/GAsgP9DwyRw6koI3QpnGtADTyThtmimjDGu3 xniFaOLLvfrFGQW8LvQG D0IkMMyY82klg5iUDMLcj56VHVEYk2iy90qkNlKwQrfC+fJzUqDTq65fNZh7S/OkuYvHdn0LiBKfLzDW ifZnXNruVwDh1DWEfFNh cItxNbhhYPOMLwCZytDLgRteTgPm0MECyMKybXefEg/A55RS/t8u0MVFMCWGCpXIaYoOnHE></span> </div><div>
</div><div style=text-align:center><strong>GYNECOLOGIC ONCOLOGY CONSULT</strong>

</div><div><div><strong>Patient Name: </strong><span class=clinicalNoteMacroHighlighted id="[id number] macroname=PatientName spantype=macro title=#PatientName>ALYSSA PULIDO</span> <strong>Patient :</strong> <span class=clinicalNoteMacroHighlighted id=[id number] macroname=PatientDateOfBirth spantype=macro title=#PatientDateOfBirth>1950</span>
</div><strong>Patient MRN</strong>: <span class=clinicalNoteMacroHighlighted id=[id number] macroname=PatientMRN spantype=macro title=#PatientMRN>[id number]</span>
<strong>Referring Physician: </strong><span class=clinicalNoteMacroHighlighted id=[id number] macroname=ReferringPhysician spantype="macro title=#ReferringPhysician> </span>
<strong>Primary GYNOncologist: </strong><span class=clinicalNoteMacroHighlighted id=[id number] macroname=AttendingPhysician spantype=macro title=#AttendingPhysician>Sarah Coto (Gynecol ogical/Oncology)</span>
<strong>Date of Service:</strong> 02/02/2025<b r>
<span class=clinicalNoteSectionShowSeparators clinicalNoteSectionVisible" id=[id number] internalbreaksection=false originalname="Reason for Consult: recognizeconcepts=true spantype=section suppressempty=false>Reason for Consult:</span>
Cervical cancer

<span class=clinicalNoteSectionShowSeparators clinicalNoteSectionVisible id=[id number] internalbreaksection=false originalname=HPI recognizeconcepts=true spantype=section suppressempty=false">History of Present Illness ([facility]):</span>
Alyssa Pulido is a 74 year old female referred to [facility] with recent diagnosis of Stage BRICE [...] internalbreaksection=false originalname=Genetic Testing recognizeconcepts=true spantype=section suppressempty=false>Genetic Testing ([facility]):</span><br&gt ;None

<span class=clinicalNoteSectionShowSeparators clinicalNoteSectionV isible id=[id number] [...] cancer excision

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
Never
No history abnormal Paps but [...] internalbreaksection=false originalname=Physical Exam: recognizeconcepts=true spantype=section suppressempty="false>Physical Exam ([facility]):</span>
*Virtual visit*

<span class=clinicalNoteSectionShowSeparators clinicalNoteSectionVisible" id=[id number] [...] & Plan: recognizeconcepts=true spantype=section suppressempty=false>Assessment & Plan ([facility]):</span>
Alyssa Pulido is a 74 year. [...] and Sarah Johnson am located in the [facility]. The visit length was: [...]
--- OUTSIDE RECORDS SUMMARY | 2025-07-17 12:46 | XMS_ITS ---
Author Organization [facility] Address [address] [place] [address] Care Team Providers Care Bee Keeper Name Role Phone Unavailable Primary Care Provider Unavailabl e Active Problems * This document contains information received from the source organization and may not represent a complete record from that organization. Problem Noted Date Diagnosed Date Atherosclerotic Heart Diseas e Of [place] Coronary Artery Without Angina Pectoris 03/30/2025 Malignant [...] Fraction Dose Fractions Total Dose Plans Planned [id number] 04/06/2025 - 04/06/2025 700 cGy 7 00 cGy [id number] 03/30/2025 - 03/30/2025 700 cGy 7 00 cGy Reference Points Delivered DPV HDR 03/30/2025 - 04/06/2025 2,100 cGy * Course 1xPelvis 02/21/2025 - 03/28/2025 Treatment Period Fraction Dose Fractions Total Dose Plans Planned [id number] 02/21/2025 - 03/28/2025 180 cGy 25 / 25 4 ,500 cGy Reference Points Delivered [id number] 02/21/2025 - 03/28/2025 4,500 cGy Lifetime Dose Tracking * Chemical Lifetime Dose Automatic Entry Manual Entr y Radiation 36.09 mGy 36.09 mGy 0 mGy Fluoro Time 6.62 minutes 6.62 minutes 0 minutes DAP (uGy-m2) 752.62 uGy-m2 752.62 uGy-m2 0 uGy-m2
--- OUTSIDE RECORDS SUMMARY | 2025-07-17 12:46 | XMS_ITS | Clinical Summary ---
Author Organization [facility] Address [address] [place] [address] Care Team Providers Care Gas Stove Servicer Helper Name Role Phone Unavailable Primary Care Provider Unavailabl e Source Comments Patient records contain information from all sites at [facility]. For routine questions regarding patient records, call [phone] during business hours, M-F 8:00 AM - 5:00 PM Central Time. 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 07/07/2025 Orders Only Department of Radiation Oncology in [address] [address] Thelma Streeter M.D. Malignant Neoplasm Of Cervix (HCC) (Primary Dx) 07/06/2025 1:52 PM CDT - 07/06/2025 9:03 PM CDT Hospital Encounter Department of Radiation Oncology in [address] [address] Thelma Streeter M.D. Malignant Neoplasm Of Cervix (HCC) (Primary Dx) 05/11/2025 Clinical Communication Department of Radiation Oncology in [address] [address] Moon Gong RGerber 04/29/2025 8:46 AM CDT - 04/29/2025 12:08 PM CDT Hospital Encounter Department of Radiology, [facility], in [place], [place] [address] [place] [phone] Jessie Borden APRN, C.N.P., D.N.P. Liang Foster M.D. Hydronephrosis Discharge Disposition: Home or Self Care 04/29/2025 Orders Only Department of Urology in [place], [place] [address] [place] [address] Jessie Borden APRN, C.N.P., D.N.P. 04/29/2025 Orders Only Division of Gastroenterology in [place], [place] [address] [place] [address] Freya Mccauley R.N. Nephrostomy Status Post (HCC) (Primary Dx) 04/28/2025 1:51 PM CDT - 04/28/2025 4:23 PM CDT Hospital Encounter Department of Radiation Oncology in [place], [place] [address] [place] [address] Thelma Streeter M.D. Malignant Neoplasm Of Cervix (HCC) (Primary Dx); Abnormal Urinalysis 04/26/2025 1:00 PM CDT Comprehensive Visit Department of Urology in [place], [place] [address] [place] [phone] Jessie Borden APRN, C.N.PTaylor, D.N.P. Hydronephrosis (Primary Dx); Malignant Neoplasm Of Cervix (HCC) 04/26/2025 11:40 AM CDT - 04/26/2025 11:59 PM CDT Hospital Encounter Department of Laboratory Medicine and Pathology, [facility] in [place], [place] [address] [place] [phone] Thelma Streeter M.D. Malignant Neoplasm Of Cervix (HCC) Discharge Disposition: Home or Self Care 04/26/2025 10:45 AM CDT Lab Department of Urology in [place], [place] [address] [place] [phone] Thelma Streeter M.D. Malignant Neoplasm Of Cervix (HCC) 04/26/2025 Orders Only Department of Urology in [place], [place] [address] [place] [phone] Jessie Borden APRN, C.N.PTaylor, D.N.PTaylor Hydronephrosis (Primary Dx) 04/26/2025 Orders Only Department of Radiation Oncology in [address] [phone] Thelma Streeter M.D. Malignant Neoplasm Of Cervix (HCC) (Primary Dx) from Last 3 Months Social History Tobacco Use Types Packs/Day Years Used Date Smoking Tobacco: Never Smokeless Tobacco: Never Tobacco Cessation:Counseling Given: Not Answered Alcohol Use Standard Drinks/Week Comments Not Currently 0 (1 standard drink = 0.6 oz pure alcohol) Quit drinkinking in August after pelvic pain started. 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 [address] [place] [phone] 08/05/2025 2:30 PM OIL EXPERT Office Visit Department of Urology in [place], [place] [address] [place] [phone] Jessie Borden APRN, C.N.P., D.N.P. [address] [place] [phone] Health Maintenance Due Date Last Done Comments [...] this topic Medical Devices Implanted Type Area Supervisory Cbp Officer Device Identifier Shelf Expiration Date Model / [...] all outpatients) 04/29/2025 11:22 AM CDT Hydronephrosis OUTSIDE DX CHEST Routine 04/27/2025 4:25 PM CDT CREATININE WITH EGFR, S/P Routine 04/26/2025 12:16 PM CDT Malignant Neoplasm Of Cervix (HCC) DIPSTICK, U Routine 04/26/2025 11:40 AM CDT ID OSMOLALITY ASSAY URINE Routine 04/26/2025 11:40 AM [...] CT Body (07/14/2025 1:45 PM CDT) Narrative [facility] - 07/15/2025 10:04 AM CDT This order [...] PROCEDURES Final R esult Performing Organization Address City/[facility]/ZIP Co de Phone Number [facility] NA * PET skull to mid thigh-Outside [place] Pet (06/30/2025 3:25 PM CDT) 06/30/2025 3:21 PM CDT Narrative [facility] - 06/30/2025 6:24 PM CDT This order [...] PROCEDURES Final R esult Performing Organization Address City/[facility]/ZIP Co de Phone Number [facility] NA * IR Nephrostomy Tube Exchange Bilateral (04/29/2025 11:22 AM CDT) Anatomical Region Laterality Modality Genito Urinary, Vascular Int erventional RST LOS, Vascular Interventional ARZ LOS, Vascular Interventional FLA LOS Bilateral X-Ray Angiography Impressions 04/29/2025 1:10 PM CDT 1. Bilateral antegrade nephrostograms, as described in the report body. 2. Exchange of the 10-Gabonese bilateral nephrostomy tubes, notably with two catheters [...] and draped in the usual sterile fashion. Analytical Statistician image of the abdomen demonstrates a single, [...] and exchanged over wire for a similar, 10-Gabonese x 25 cm MCL catheter. The locking [...] then exchanged over a wire for another 10-[place]ones[place] x 25 cm locking-loop catheter. The locking [...] then exchanged over a wire for a 10-Gabones[place] x 25 cm MCL locking-loop catheter. The [...] and draped in the usual sterile fashion. Analytical Statistician imageof the abdomen demonstrates a single, left-sided [...] transected and exchangedover wire for a similar, 10-Gabonese x 25 cm MCL catheter. The locking [...] then exchanged over a wire for another 10-[place]ones[place] x 25cm locking-loop catheter. The locking loop [...] was then exchangedover a wire for a 10-Gabonese x 25 cm MCL locking-loop catheter. The [...] the report body. 2. Exchange of the 10-Gabonese bilateral nephrostomy tubes, notably withtwo catheters in [...] the report body. 2. Exchange of the 10-Gabonese bilateral nephrostomy tubes, notably with two catheters [...] and draped in the usual sterile fashion. Analytical Statistician image of the abdomen demonstrates a single, [...] and exchanged over wire for a similar, 10-Gabonese x 25 cm MCL catheter. The locking [...] then exchanged over a wire for another 10-Gabones[place] x 25 cm locking-loop catheter. The locking [...] then exchanged over a wire for a 10-Gabonese x 25 cm MCL locking-loop catheter. The [...] and draped in the usual sterile fashion. Analytical Statistician imageof the abdomen demonstrates a single, left-sided [...] transected and exchangedover wire for a similar, 10-Gabonese x 25 cm MCL catheter. The locking [...] then exchanged over a wire for another 10-Gabones[place] x 25cm locking-loop catheter. The locking loop [...] was then exchangedover a wire for a 10-Gabones[place] x 25 cm MCL locking-loop catheter. The [...] the report body. 2. 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 NR Jessie Borden APRN, C.N.P., D.N.P. IMG IR PROCEDURE S Final Result * XR chest 2V-Outside Chest Xray (04/27/2025 4:25 PM CDT) Narrative [facility] - 07/15/2025 3:37 PM CDT This order has been created and auto-finalized to support the import of outside images. If available, original interpretation can be found on the Media Tab in Chart Review, in Document Viewer, as an image in InfinityView or as an Addendum. If a re-interpretation or overread is required please follow defined workflow. Provider Not In System IMG DIAGNOSTIC IMAGING ID OCEDURES Final Result Performing Organization Address City/[facility]/ZIP Co de Phone Number [facility] NA * (ABNORMAL) Creatinine with Estimated GFR (04/26/2025 12:16 PM CDT) Creatinine 1.21(H) 0.59 - 1.04 mg/dL 04/26/2025 1:19 PM CDT DTL Estimated GFR (eGFR) 47(L) >=60 mL/min/BSA 04/26/2025 1:19 PM CDT DTL Comment: Estimated GFR calculated using the 2020 CKD_EPI creatinine equation. Blood (Blood, Venous) 04/26/2025 12:16 PM CDT 04/26/2025 12:38 PM CDT Thelma Streeter M.D. LAB BLOOD ADD-ON Final Re sult [facility] [address] [place] [address], [place] DTL [facility] [address] [place] [address] * Osmolality, Urine (04/26/2025 11:40 AM CDT) Osmolality, U 652 150 - 1150 mOsm/kg 04/26/2025 6:45 PM CDT DTL Urine 04/26/2025 11:4 0 AM CDT 04/26/2025 12:59 PM CDT Thelma Streeter M.D. LAB URINE ORDERABLES Selina l Result Performing Organization Address City/[facility]/ZIP Co de Phone Number [facility] [address] [place] [address] * (ABNORMAL) Dipstick, Urine (04/26/2025 11:40 AM CDT) Pathologist [facility] Hemoglobin, QL, U Trace(A) Negative 04/26/2025 1:12 [...] ORDERABLES Selina l Result Performing Organization Address City/[facility]/ZIP Co de Phone Number [facility] [address] [place] [address], [facility] [address] [place] [address] * pH, Random, Urine (04/26/2025 11:40 AM CDT) pH, Random, U 6.2 4.5 - 8.0 04/26/2025 6:45 PM CDT DTL Urine 04/26/2025 11:4 0 AM CDT 04/26/2025 12:59 PM CDT Thelma Streeter M.D. LAB URINE ORDERABLES Selina l Result Performing Organization Address [facility] Co de Phone Number [facility] [address] [place] [address], [facility] [address] [place] [address] * (ABNORMAL) Microscopic Manual (04/26/2025 11:40 AM [...] ORDERABLES Selina l Result Performing Organization Address City/[facility]/ZIP Co de Phone Number [facility] [address] [place] [address], [facility] [address] [place] [address] * (ABNORMAL) Urinalysis, with Microscopic: Urine, Nephrostomy [...] M.D. LAB URINE ORDERABLES Selina walter Result Performing Organization Address City/State/[facility] Co de Phone Number [facility] [address] [facility] [address] [place] [address] * BI Breast Diagnostic Bilateral (03/15/1998 1:14 [...] she has had a previous mammogram in [place] several years previously, and if this could [...] that she has had a previousmammogram in [place] several years previously, and if this could [...] Most Recently Relevant to Health Maintenance Insurance [facility] MEDICARE Advance Directives For more information, please contact: [phone] Documents on File Type Date Recorded 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 See document viewer. * Full Code (Latest Code Status on File) Date Activated Date Inactivated Comments 04/11/2025 12:44 PM 04/11/2025 7:01 PM Question Answer Comments Full Code: Not Discussed Due to: Patient not available
--- OUTSIDE RECORDS SUMMARY | 2025-07-17 12:47 | XMS_ITS | Clinical Summary ---
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 No current or recent notable concern for acute bleed as cause Hemoglobin 8.8, baseline 10.8-9.2 Ongoing management with PCP Melanoma in situ of right upper limb 08/05/2018 Essential hypertension 03/11/2018 Encounters Date Type Department Care Team Description 06/23/2025 2:00 PM CDT Office Visit [facility] [address] [place] [phone] Hoang Galvez MD History of acute kidney injury (Primary Dx); Urinary tract infection, not otherwise specified; Hydroureteronephrosi s 05/18/2025 Documentation Only [facility] [address] [place] [phone] No, Pcp 05/18/2025 Documentation Only [facility] [address] [place] [phone] No, Pcp from Last 3 Months Family [...] patient's age to complete this topic Insurance [facility] Medicare Care Teams Steeping Press Tender Relationship Specialty Start Date End Date VotelAxel MD [address] [place] [address] PCP - General Family Medicine 05/18/25
--- OUTSIDE RECORDS SUMMARY | 2025-07-17 12:47 | XMS_ITS | Patient Health Record ---
Author Organization [facility]AIKA Feng Address [address] [place], [place] [id number] Care Team Providers Care Cloth Shrinking Tester Name Role Phone Dev Mckeon Primary Care Provider Allergies No Known Allergies Reason For Referral No Information Medications Medication SIG (Take, Route, Frequency, Duration) Notes Start Date End Date Status Glady 3 1000 MG 1 capsule Orally Thr [...] W/U Status Risk Notes Problem Primary hypertension (85128462) Primary hypertension (I10) Active confirmed Vital Signs Heart Rate 70 /min 12/03/2024 Temperature 97.2 degrees Fahrenheit 12/03/2024 Respiratory Rate 16 /min 12/03/2024 Blood pressure diastolic 98 mm Hg 12/03/2024 Weight-kg 70.67 kg 12/03/2024 Blood pressure systolic 158 mm Hg 12/03/2024 Weight 155.8 lbs 12/03/2024 Encounters Encounter Location Date Provider Diagnosis MALAIKA Foster [address] [place], [place] [phone] 12/03/2024 Dev Mckeon Abdominal bloating R14.0 and Intermittent constipation K59.09 [facility] [address] [place], [place] [phone] 12/06/2024 Dev Mckeon Assessments Encounter Date Diagnosis (ICD Code) Assessment [...] End Date [employer] Medicare [address] [address] [place] [address] [id number] [phone] [id number] Rosa Garcia Self - patient is the [...]
--- OUTSIDE RECORDS SUMMARY | 2025-07-17 12:47 | XMS_ITS | Clinical Summary ---
Author Organization [facility] Address [address] [place] [address] Care Team Providers Care Hoop Maker Machine Name Role Phone Votel, Axel Thomas MD Primary Care Provider + [facility] Care, Fishs Eddy Unavailable Allergies Active Allergy Reactions Criticality Noted [...] Description 07/15/2025 9:00 AM CDT Office Visit [facility] [address] [address] Shahbaz Gaviria MD Consult (Recurring urinary infections. ) 07/14/2025 Travel 07/12/2025 10:00 AM CDT Home Care Visit [facility] [address] [place] [phone] Krista Velasco, RN SN - OASIS RECERTIFICATION 07/12/2025 9:00 AM CDT Home Care Visit [facility] [address] [place] [phone] Dane Haynes CABLE SPLICER APPRENTICE - HOME VISIT 07/12/2025 Plan of Care Documentation [facility] [address] [place] [phone] 07/12/2025 Telephone [facility] [address] [place] [phone] Krista Velasco, clinical neuropsychologist 07/11/2025 10:25 AM CDT Office Visit [facility] [address] [place] [address] Axel Palomo MD Abdominal Pain (Constipated, not sleeping); Results (PET scan, wants clarification) 07/11/2025 Telephone [facility] [address] [place] [address] Axel Palomo MD Appointment (Request appointment for New Patient and Consult ) 07/11/2025 Travel 07/06/2025 10:00 AM CDT Home Care Visit [facility] [address] [place] [phone] Too Ayala, PT PT - DISCIPLINE DISCHARGE 07/06/2025 Travel 07/05/2025 10:00 AM CDT Home Care Visit [facility] [address] [place] [phone] Krista Velasco RN SN - HOME VISIT 07/05/2025 9:15 AM CDT Home Care Visit [facility] [address] [place] [address] [phone] Dane Haynes CABLE SPLICER APPRENTICE - HOME VISIT 06/30/2025 9:00 AM CDT Home Care Visit [facility] [address] [place] [phone] Krista Velasco, DUYEN SN - HOME VISIT 06/30/[address] [facility] Scanner 1 scan: (1-Ord) [facility], SKULL BASE TO THIGHS, 06/30/2025 06/29/2025 9:00 AM CDT Home Care Visit [facility] [address] [place] [address], [place] [phone] oTo Ayala, PT PT - HOME VISIT 06/28/2025 9:30 AM CDT Home Care Visit [facility] [address] [place] [phone] Dane Haynes CABLE SPLICER APPRENTICE - HOME VISIT 06/28/2025 Refill [facility] [address] [place] [address] Axel Palomo MD Refill Request (Trazodone) 06/24/2025 11:00 AM CDT Home Care Visit [facility] [address] [place] [phone] Krista Velasco RN SN - HOME VISIT 06/24/2025 Telephone [facility] [address] [place] [address] [phone] Krista Velasco, clinical neuropsychologist 06/22/2025 11:30 AM CDT Home Care Visit [facility] [address] [place] [phone] Shanika Joya MSW REIMBURSEMENT MANAGER - INITIAL ASSESSMENT 06/21/2025 9:30 AM CDT Home Care Visit [address] [phone] Dane Haynes CABLE SPLICER APPRENTICE - HOME VISIT 06/16/2025 9:30 AM CDT Home Care Visit [facility] [address] [place] [address] Krista Velasco, RN SN - HOME VISIT 06/15/2025 Home Care Visit [facility] [address] [place] [address] Shanika Joya MSW CARE COORDINATION 06/14/2025 7:30 AM CDT Home Care Visit [facility] [address] [place] [address] Dane Haynes CABLE SPLICER APPRENTICE - HOME VISIT 06/10/2025 2:00 PM CDT Home Care Visit [facility] [address] [place] [address] Leonel Dent, PT PT - INITIAL ASSESSMENT 06/10/2025 Travel 06/09/2025 2:30 PM CDT Home Care Visit [facility] [address] [place] [phone] Krista Velasco, DUYEN SN - HOME VISIT 06/08/2025 Home Care Visit [facility] [address] [place] [address], [place] [phone] Leonel Dent, PT CARE COORDINATION 06/07/2025 9:15 AM CDT Home Care Visit [facility] [address] [place] [address], [place] [phone] Dane Haynes CABLE SPLICER APPRENTICE - HOME VISIT 06/07/2025 Orders Only [facility] Scanner 1 scan: (1-Ord) [place], URINE CULTURE, 06/07/2025 06/07/2025 Orders Only [facility] Scanner 1 scan: (1-Ord) [facility], URINE CULTURE, 06/07/2025 06/07/2025 Orders Only [facility] Scanner 1 scan: (1-Ord) [facility], MULTIPLE LABS, 06/07/2025 06/07/2025 Telephone [facility] [address] [place] [address] Axel Palomo MD Urinary Problem 06/07/2025 Nurse Triage [facility] [address] [place] [address] Axel Palomo MD Urinary Problem 06/02/2025 11:30 AM CDT Home Care Visit [facility] [address] [place] [phone] Krista Velasco RN SN - HOME VISIT 05/26/2025 9:30 AM CDT Home Care Visit [facility] [address] [place] [phone] Petra Carroll LPN WAN SUPPORT SPECIALIST - HOME VISIT 05/25/2025 9:00 AM CDT Home Care Visit [facility] [address] [place] [phone] Dane Haynes CABLE SPLICER APPRENTICE - HOME VISIT 05/25/2025 Home Care Visit [facility] [address] [place] [phone] Fina Waters RN CARE COORDINATION 05/19/2025 8:30 AM CDT Home Care Visit [facility] [address] [place] [phone] Dane Haynes CABLE SPLICER APPRENTICE - HOME VISIT 05/18/2025 11:00 AM CDT Home Care Visit [facility] [address] [place] [phone] Petra Carroll LPN WAN SUPPORT SPECIALIST - HOME VISIT 05/18/2025 Medical Messaging [facility] [address] [place] [address] Axel Palomo MD Nephrology Referral 05/13/2025 1:00 PM CDT Home Care Visit [facility] [address] [place] [phone] Krista Velasco, DUYEN SN - OASIS RECERTIFICATION 05/13/2025 Plan of Care Documentation [place] [id number] [place] [phone] 05/10/2025 2:30 PM CDT Office Visit [facility] [address] [place] [address] Axel Palomo MD ER Follow up ([place], UTI, 04/29/25) 05/10/2025 10:00 AM CDT Home Care Visit [facility] [address] [place] [phone] Krista Velasco, DUYEN SN - HOME VISIT 05/10/2025 Travel 05/06/2025 9:45 AM CDT Home Care Visit [facility] [address] [place] [phone] Nicky Ragland RN SN - HOME VISIT 05/05/2025 Travel 05/03/2025 1:00 PM CDT Home Care Visit [place] [id number] [place] [phone] Krista Velasco RN SN - OASIS RESUMPTION OF CARE 05/03/2025 Telephone [facility] [address] [place] [phone] Krista Velasco, clinical neuropsychologist 04/29/2025 Home Care Visit [address] [phone] Krista Velasco RN SN - OASIS TRANSFER 04/27/2025 11:00 AM CDT Home Care Visit [facility] [address] [place] [phone] Krista Velasco, DUYEN SN - HOME VISIT 04/27/2025 Home Care Visit [address] [phone] Krista Velasco, DRUM SANDER SETTER NOTE 04/27/[address] [facility] Scanner 1 scan: (1-Ord) [facility], CHEST 2 V, 04/27/2025 04/22/2025 9:00 AM CDT Home Care Visit [facility] [address] [place] [address] [place] [phone] Petra Carroll LPN WAN SUPPORT SPECIALIST - HOME VISIT 04/19/2025 10:00 AM CDT Home Care Visit [facility] [address] [place] [address] Krista Velasco RN SN - HOME VISIT [...] on file Legal Sex Female 7:12 AM COIL WINDING SUPERVISOR Gender Identity Not on file Sexual [...] Info) Description 07/19/2025 9:00 AM CDT Appointment [address] [phone] Danagata, Krin L 07/21/2025 10:00 AM CDT Appointment [address] [phone] Krsita Velasco RN 07/26/2025 4:00 AM COIL WINDING SUPERVISOR Appointment [address] [phone] Danberry, Krin L 08/02/2025 4:00 AM COIL WINDING SUPERVISOR Appointment [address] [phone] Danberry, Krin L 08/09/2025 4:00 AM COIL WINDING SUPERVISOR Appointment [address] [phone] Danagata, Krin L 08/16/2025 4:00 AM COIL WINDING SUPERVISOR Appointment [facility] [address] [place] [phone] Dane Haynes L 08/16/2025 11:00 AM COIL WINDING SUPERVISOR Office Visit [facility] [address] [place] [address] Ashley Casanova, DO [address] [place] [address] 08/23/2025 4:00 AM COIL WINDING SUPERVISOR Appointment [facility] [address] [place] [phone] Dane Haynes 08/30/2025 4:00 AM COIL WINDING SUPERVISOR Appointment [facility] [address] [place] [phone] Jesse Haynesin L Health Maintenance Due Date [...] REFLEX MEASURED LDL (01/18/2025 2:53 PM CDT) [facility] Signature CHOLESTEROL, TOTAL 275(H) <200 mg/dL [facility] [place] HDL CHOLESTEROL 53 > OR = 50 mg/dL [facility] [place] TRIGLYCERIDES 137 <150 mg/dL [facility] LDL-CHOLESTEROL 193(H) mg/dL (calc) [facility] Comment: LDL-C levels > or = 190 [...] about testing for familial hypercholesterolemia, please call [facility] at 1.153.Legend of the Elf.INFO. Deuce T, et al. J National Lipid Association Recommendations for Patient-Centered Management of Dyslipidemia: Part 1 Journal of Clinical Lipidology 2015;9(2), 129-169. Shorty Giraldo. et al. (2014). Homozygous familial hypercholesterolaemia: new insights and guidance for clinicians to improve detection and clinical management. Heart Journal, 35(32), 5269-0250. Reference range: <100 Desirable range <100 mg/dL for primary prevention; <70 mg/dL for patients with CHD or diabetic patients with > or = 2 CHD risk factors. LDL-C is now calculated using the Greyson-Alex calculation, which is a validated novel method providing better accuracy than the Friedewald equation in the estimation of LDL-C. Greyson HUBBARD et al. CAPRICE. 2013;310(19): 9278-8422 (http://education.zeeWAVES.[employer]/faq/BJN673) CHOL/HDLC RATIO 5.2(H) <5.0 (calc) [facility] NON HDL CHOLESTEROL 222(H) <130 mg/dL (calc) [facility] Comment: Non-HDL level > or = 220 [...] Axel Palomo MD CHEMISTRY Final Re sult [facility] [address] [place] [address], Fli[facility]y [facility] [place] [place] [address] [place] [address] * ANTI HCV (06/11/2023 12:43 PM CDT) Pathologist [facility] HEPATITIS C ANTIBODY Non-Reacti ve Non-React paresh 06/12/2023 9:16 AM CDT [facility] Comment:Please note, per www [...] Andrade DO SEND OUTS Final Resu lt [facility] SENDOUT [place]NAL ZIP [id number] [address] [place] [address] * SDNA-FIT EXTERNAL (COLOGUARD) (06/18/2022 5:30 AM CDT) Pathologist [facility] NONINV COLON CA DNA+OCC BLD SCRN STL-IMP Negative Negative 06/22/2022 8:52 AM CDT [facility] (CLIA #:[id number]) Comment: NEGATIVE TEST RESULT. A negative Cologuard [...] (Timmy Judge al, N Engl J Med 2014;370(14):9647-5015) The normal value (reference range) for this assay is negative. COLOGUARD RE-SCREENING RECOMMENDATION: Periodic colorectal cancer screening is an important part of preventive healthcare for asymptomatic individuals at average risk for colorectal cancer. Following a negative Cologuard result, the [employer] Society and U.S. Multi-Society Task Force screening guidelines recommend a Cologuard re-screening interval of 3 years. References: [employer] Guideline for Colorectal Cancer Screening: https://www.cancer.org/cancer/cpblg-nqyrnb-itxsgw/cspqerruk-iunjtwktn-cptkths/ac s-rec ommendations.html.; Fidel DK, Joann العلي, Maribell McneilK, Colorectal Cancer Screening: Recommendations for Physicians and Patients from the U.S. Multi-Society Task Force on Colorectal Cancer Screening , Am J Gastroenterology 2017; 112:6448-3942. TEST DESCRIPTION: Composite algorithmic analysis of stool [...] (Timmy Judge al, N Engl J Med 2014;370(14):5309-3531.) Cologuard may produce a false negative or false positive result (no colorectal cancer or precancerous polyp present at colonoscopy follow up). A negative Cologuard test result does not guarantee the absence of CRC or advanced adenoma (pre-cancer). The current Cologuard screening interval is every 3 years. ([employer] Society and U.S. Multi-Society Task Force). Cologuard performance data in a 10,000 patient pivotal study using colonoscopy as the reference method can be accessed at the following location: www.Efizity/results. Additional description of the Cologuard test process, warnings and precautions can be found at www.Meusonicoguard.com. Stool specimen (specimen) (Rectum) 06/18/2022 5:30 AM CDT 06/19/2022 11:50 AM CDT Marivel Andrade DO URINE Final Resu lt [facility] (CLIA #:[id number]) [place] [address], from Last 3 Months or Most Recently Relevant to Health Maintenance Insurance [employer] [place] BL[place] MR PB ONLY MEDICARE PART A HB ONLY MEDICARE PART B HB ONLY [place] BL[place] HB ONLY [place] BLUE HB ONLY MEDICARE PPS Advance Directives Documents on File Type Date Recorded Patient Campus Receptionist Expl anation Healthcare Directive 06/28/2025 2:05 PM [...] Code Status Discussion: Reviewed Preferences Care Teams Hoop Maker Machine Relationship Specialty Start Date End Date Votel, Axel Thomas [place] [address] PCP - General Family Practice 01/04/25 [facility] [address] [place] [address] 01/14/25
--- NOTE | 2025-07-17 12:57 | ED.GENADULT ---
HPI - General Adult General Date Seen: 07/17/25 Chief complaint: Shortness of Breath/Dyspnea Stated complaint: breathing difficulties Time Seen by Provider: 07/17/25 12:56 History of Present Illness HPI narrative: 74-year-old female with a complex past medical history. She apparently has a history of stage IV cervical cancer status post chemo radiation (carboplatin and pembrolizumab completed in May 2025) follows with Dr. Almanzar. She has bilateral nephrostomy tubes. She has chronic hyponatremia, recurrent UTIs, hypertension. She had been feeling weak for about a week and saw her primary care provider on July 11. She had a CT scan of her abdomen completed on the that actually showed bilateral pulmonary emboli and IVC thrombus extending from the proximal right renal vein and right common iliac vein. Her doctors called her and told her to come to the ER so she presented to the ER here in [place] on 07/15. She was started on IV heparin. Consultation was made with hospitalist, clinical specialty rep, setter cold rolling machine through [facility] who recommended hospitalization here in [place] for anticoagulation with the plan to discharge on Lovenox. Not recommended to undergo thrombectomy or thrombolytics at that time. She was hospitalized overnight I here in [place] on heparin and was able to discharge yesterday. She was discharged with DOAC (Eliquis 10 mg p.o. b.i.d. for 7 days then transition to 5 mg p.o. b.i.d.) Since discharge she has had worsening of her condition. Yesterday evening she started feeling more short of breath and had significant dyspnea on exertion. She was winded could not speak full sentences today. When she measured her oxygen level was low, in the 80s on room air. Her friend convinced her to come back to the ER today. She has been taking Eliquis as prescribed. She is not having any fever chills. No chest pain. No abdominal pain. No back pain. She has noted a little bit of pink hematuria from her left kidney nephrostomy tube. No blood from the right. She is not having any abdominal pain or flank pain. No leg swelling or pain. She just feels very fatigued short of breath. Related Data Home Medications ?Medication ?Instructions ?Recorded ?Confirmed coenzyme Q10 100 mg capsule (Co 100 mg PO DAILY 02/10/25 07/15/25 Q-10) omega-3 fatty acids-fish oil 360 1 cap PO DAILY 02/10/25 07/15/25 mg-1,200 mg capsule loperamide 2 mg capsule (Imodium 2 mg PO QID PRN 03/07/25 07/16/25 A-D) trazodone 50 mg tablet 50 mg PO HS 03/14/25 07/15/25 carvedilol 25 mg tablet 25 mg PO BID 04/28/25 07/15/25 polyethylene glycol 3350 17 gram 17 g PO DAILY 07/16/25 07/16/25 oral powder packet sennosides 8.6 mg-docusate sodium 1 tab-cap PO BID 07/16/25 07/16/25 50 mg tablet (Senna with Docusate Sodium) Previous Rx's ?Medication ?Instructions ?Recorded apixaban 5 mg tablet (Eliquis) See Rx Instructions .Route 07/16/25 .COMPLEX #74 tabs Allergies Allergy/AdvReac Type Severity Reaction Status Date / Time ciprofloxacin (From Cipro) AdvReac Intermediate Diarrhea, Verified 07/17/25 12:55 calf cramping [facility] Medical History (Updated 07/17/25 @ 14:58 by Clayton Avina MD) Lung consolidation ?J18.1 - Lobar pneumonia, unspecified organism (ICD-10) Complicated urinary tract infection ?N39.0 - Urinary tract infection, site not specified (ICD-10) Ureteral obstruction ?N13.5 - Crossing vessel and stricture of ureter without hydronephrosis (ICD-10) Squamous cell carcinoma of cervix ?C53.9 - Malignant neoplasm of cervix uteri, unspecified (ICD-10) Hyponatremia ?E87.1 - Hypo-osmolality and hyponatremia (ICD-10) Pure hypercholesterolemia ?E78.00 - Pure hypercholesterolemia, unspecified (ICD-10) Essential hypertension ?I10 - Essential (primary) hypertension (ICD-10) Surgical History (Updated 07/15/25 @ 20:11 by Jossie Herrera PA-C) H/O insertion of nephrostomy tube ?Z98.890 - Other specified postprocedural states (ICD-10) Social History What is your current living situation?: I presently have a place to live Problems where you live: no known problems Problems where you live details: N/A In the past 12 months, utilities in danger of being shut off: no In past 12 months, lack of transportation kept you from medical appts, meetings, work, or getting things needed for daily living: no In the past 12 mos, have been you worried that your food would run out before you had money to buy more?: never true In the past 12 mos, the food you bought just didn't last and you didn't have money to buy more?: never true Highest level of school completed/degree received: Bachelor's degree Smoking Status: Never smoker Second hand tobacco smoke exposure: No How often do you have a drink containing alcohol: never AUDIT-C Alcohol total score: 0 Non-prescribed substance use: denies use Caffeine: Yes (1c/day) How often does anyone, including family, friends and others, physically hurt you: never How often does anyone, including family, friends and others, insult or talk down to you: never How often does anyone, including family, friends and others, threaten you with harm: never How often does anyone, including family, friends and others, scream or curse at you: never Are you using contraception or practicing any form of control: No service: No Exam Narrative: Exam Narrative: Constitutional: Appears well-developed and well-nourished. Alert. For right, positive, and Conversant. She is speaking short sentences and has to stop to catch her breath. HENT: Head: Atraumatic. Nose: Nose normal. Mouth/Throat: Oral mucosa is clear and moist. no trismus. Pharynx normal. Tonsils symmetric. No tonsillar enlargement, erythema, or exudate. Eyes: Conjunctivae normal. EOM normal. Pupils equal, round, and reactive to light. No scleral icterus. Neck: Normal range of motion. Neck supple. No tracheal deviation present. Cardiovascular: Tachycardic, just over 100, regular rhythm. No gallop. No friction rub. No murmur heard. Symmetric radial artery pulses Pulmonary/Chest: Mild tachypnea. No stridor. No respiratory distress. No wheezes. No rales. No rhonchi . No tenderness. Abdominal: Soft. Bowel sounds normal. No distension. No mass. No tenderness. No rebound. No guarding. She has pink tinged urine her left nephrostomy tube. Normal urine from her 2 right nephrostomy tubes. Skin around the nephrostomy tube resting looks good. No CVA tenderness. Musculoskeletal: RUE: Normal range of motion. No tenderness. No deformity LUE: Normal range of motion. No tenderness. No deformity RLE: Normal range of motion. No edema. No tenderness. No deformity LLE: Normal range of motion. No edema. No tenderness. No deformity Neurological: Alert and oriented to person, place, and time. Normal strength. CN II-VII intact. No sensory deficit. GCS eye subscore is 4. GCS verbal subscore is 5. GCS motor subscore is 6. Normal coordination Skin: Skin is warm and dry. No rash noted. No pallor. Normal capillary refill. Psychiatric: Normal mood. Normal affect. Const: Vital Signs, click to edit/add: Vital Signs - 24 hr 07/17/25 12:54 07/17/25 13:00 07/17/25 13:00 Temperature 97.5 F L Pulse Rate 109 H Pulse Rate [Pulse Oximeter] 106 H Respiratory Rate 24 Blood Pressure Blood Pressure [Le ft Upper Arm] 151/100 H Pulse Oximetry 83 L 94 94 Oxygen Delivery Me thod Nasal Cannula Nasal Cannula Oxygen Flow Rate 4 4 07/17/25 13:00 07/17/25 13:01 07/17/25 13:02 Temperature Pulse Rate 100 99 99 Pulse Rate [Pulse Oximeter] Respiratory Rate 27 H 10 L 17 Blood Pressure 151/100 H 146/98 H Blood Pressure [Le ft Upper Arm] Pulse Oximetry 98 97 96 Oxygen Delivery Me thod Nasal Cannula Nasal Cannula Nasal Cannula Oxygen Flow Rate 4 4 4 07/17/25 13:15 07/17/25 13:37 07/17/25 13:45 Temperature Pulse Rate 101 H 99 Pulse Rate [Pulse Oximeter] Respiratory Rate 20 19 12 Blood Pressure Blood Pressure [Le ft Upper Arm] Pulse Oximetry 95 91 Oxygen Delivery Me thod Nasal Cannula Nasal Cannula Nasal Cannula Oxygen Flow Rate 2 2 2 07/17/25 14:00 07/17/25 14:01 07/17/25 14:15 Temperature Pulse Rate 98 99 93 Pulse Rate [Pulse Oximeter] Respiratory Rate 10 L 15 Blood Pressure 123/89 Blood Pressure [Le ft Upper Arm] Pulse Oximetry 93 100 97 Oxygen Delivery Me thod Nasal Cannula Nasal Cannula Nasal Cannula Oxygen Flow Rate 2 2 2 07/17/25 14:30 07/17/25 14:31 07/17/25 14:32 Temperature Pulse Rate 93 93 92 Pulse Rate [Pulse Oximeter] Respiratory Rate 15 16 17 Blood Pressure 133/93 H Blood Pressure [Le ft Upper Arm] Pulse Oximetry 96 97 97 Oxygen Delivery Me thod Nasal Cannula Nasal Cannula Nasal Cannula Oxygen Flow Rate 2 2 2 07/17/25 14:45 07/17/25 15:00 07/17/25 15:01 Temperature Pulse Rate 92 95 96 Pulse Rate [Pulse Oximeter] Respiratory Rate 19 Blood Pressure 131/90 H Blood Pressure [Le ft Upper Arm] Pulse Oximetry 93 96 95 Oxygen Delivery Me thod Nasal Cannula Nasal Cannula Nasal Cannula Oxygen Flow Rate 2 2 2 07/17/25 15:10 07/17/25 15:15 07/17/25 15:30 Temperature Pulse Rate 100 102 H Pulse Rate [Pulse Oximeter] Respiratory Rate 18 Blood Pressure Blood Pressure [Le ft Upper Arm] Pulse Oximetry 95 95 93 Oxygen Delivery Me thod Nasal Cannula Nasal Cannula Nasal Cannula Oxygen Flow Rate 2 2 2 07/17/25 15:31 Temperature Pulse Rate 102 H Pulse Rate [Pulse Oximeter] Respiratory Rate 18 Blood Pressure 142/93 H Blood Pressure [Le ft Upper Arm] Pulse Oximetry 94 Oxygen Delivery Me thod Nasal Cannula Oxygen Flow Rate 2 Course Course ED Course: Recheck-oxygen remained stable in low 90s on nasal cannula. Still mildly tachycardic. Blood pressure stable Reevaluation(s) Reevaluation #1: Recheck-reviewed CT images. I do think there is an increased clot burden of PE in her left lung compared to the other day. I do not see any obvious pulmonary edema or pneumonia. Awaiting radiology read. Lab work shows elevated troponin and BNP which I think are probably suggestive of right heart strain from PE. Recheck-radiology called to report that there is, in fact increased clot burden compared to previous imaging also new pulmonary infarcts. Signs of right heart strain also on imaging. Awaiting radiology read of her abdomen pelvis CT to see if there is any change in the clot burden in her IVC. Recheck-discussed with [facility] PE response team, Dr. Shin, setter cold rolling machine. We discussed the patient's presentation and known clot burden from a couple of days ago, recent hospitalization, discharged on Eliquis, clinical deterioration with interval development of worsening shortness of breath, new hypoxia and new signs of right heart strain with new signs of increased clot burden. Although the patient has a stable blood pressure and only mild tachycardia, Dr. Shin feels that she is high risk. Concern is that if she has any more events of embolism they probably would be fatal for this patient. He recommends treatment with half dose thrombolytics. Per for thrombolytic would be all to place. However we do not have felt place on formulary here in [place]. Dr. Shin is also agreeable to a plan to treat with half dose to neck to place (0.25 milligrams/kilogram, rather than 0.5 milligrams/kilogram). Discussed with our pharmacist. We did confirm appropriate weight based dosing. Based on the algorithm will give her 17.5 mg of to next place. Discussed treatment plan with the patient and with her sister. We discussed that concern here is that she does have increasing clot burden of pulmonary emboli in her lungs and is still at risk for ongoing embolism. Is failing treatment with Eliquis. At this point recommendation from the PE team from [facility] is to treat with thrombolytics (half dose). Discussed the risks of bleeding complications from thrombolytic. Potentially a 1-2% risk of life-threatening hemorrhage. On the other hand, if we do not treat with thrombolytics there is also substantial risk of clinical worsening from her venous thromboembolic disease. Patient and her sister both give verbal consent. Patient will be transferred by EMS to the ICU at [facility] for monitoring after thrombolytics and clinical monitoring for her pulmonary embolism. Incidentally, urinalysis from her left nephrostomy tube (for which she notes hematuria developed overnight) does show evidence for infection and CT imaging does show signs of inflammation around that left kidney which I think reflects infection. Will start on Rocephin. Fortunately she is not febrile. White count is normal. I do not think she is septic. I think she is tachycardic from her pulmonary emboli. Kidney function is normal. Labs show a hemoglobin of 11.1, which is similar to her baseline. Platelet count is low at 131, but this is not a contraindication of thrombolytic in this clinical circumstance. Patient will be transferred by ground EMS to the ICU at [facility]. Reevaluation #2: Recheck-16 10-patient did notice a little bit of bleeding from a blood blister on her right lower lip. Bleeding controlled by direct pressure. No other signs of anaphylaxis or angioedema or other symptoms bleeding at this time. Vital Signs Vital signs: Initial Vital Signs Pulse Rate 109 H 07/17/25 12:54 Pulse Oximetry 83 L 07/17/25 12:54 Vital Signs Pulse Rate 109 H 07/17/25 12:54 Pulse Oximetry 83 L 07/17/25 12:54 Temperature 97.5 F L 07/17/25 13:00 Pulse Rate 102 H 07/17/25 15:31 Respiratory Rate 18 07/17/25 15:31 Blood Pressure 142/93 H 07/17/25 15:31 Pulse Oximetry 94 07/17/25 15:31 Oxygen Delivery Method Nasal Cannula 07/17/25 15:31 Oxygen Flow Rate 2 07/17/25 15:31 Medications Administered Medications: Discontinued Medications Generic Name Dose Route Start Last Admin Trade Name Freq PRN Reason Stop Dose Admin Ceftriaxone Sodium 1 gm/ 100 mls @ 200 mls/hr 07/17/25 14:55 07/17/25 15:59 Sodium Chloride IVPB 07/17/25 14:56 Infused ONCE ONE Infusion Tenecteplase 17.5 mg 07/17/25 15:10 07/17/25 15:51 Tenecteplase 5 Mg/Ml Inj 0.25 mg/kg (17.5 mg) 07/17/25 15:11 17.5 mg IVP Administration ONCE ONE Medical Decision Making Lab Data Labs: Lab Results 07/17/25 07/17/25 07/17/25 Range/Units 13:20 13:45 13:50 WBC 4.63 (4.50-11.00) K/uL RBC 3.73 L (4.00-5.20) m/uL Hgb 11.1 L (12.0-16.0) gm/dL Hct 35.0 (33.0-51.0) % MCV 94 (80-100) fL MCH 30 (26-34) pg MCHC 32 (32-36) gm/dL RDW Coeff of Myrna 15.1 (11.5-15.5) % Plt Count 131 L (140-440) K/uL Neut % (Auto) 78.3 H (42.0-72.0) % Lymph % (Auto) 9.9 L (20-44) % Gilchrist % (Auto) 11.2 H (0.0-11.0) % Eos % (Auto) 0.4 (0.0-7.0) % Baso % (Auto) 0.2 (0.0-3.0) % Neut # (Auto) 3.60 (1.7-7.0) K/uL Lymph # (Auto) 0.50 L (0.90-2.90) K/uL Gilchrist # (Auto) 0.50 (0.00-0.90) K/UL Eos # (Auto) 0.02 (0.00-0.50) K/uL Baso # (Auto) 0.01 (0.00-0.30) K/uL Abs Immat Gran (auto) 0.00 (0.00-0.30) K/uL Imm/Tot Granulo (auto) 0.0 % INR 1.36 H (0.91-1.10) APTT 48 H (23-33) Seconds Sodium 132 L (135-149) mmol/L Potassium 3.9 (3.6-5.1) mmol/L Chloride 100 (96-114) mmol/L Carbon Dioxide 25 (20-32) mmol/L Anion Gap 7 (7-15) mEq/L BUN 31 H (7-30) mg/dL Creatinine 1.2 (0.5-1.5) mg/dL Estimated Creat Clear 36.45 Estimated GFR 47 ml/min Glucose 162 H (60-115) mg/dL Lactate 1.6 (0.5-1.9) mmol/L Calcium 9.4 (8.4-10.6) mg/dL Magnesium 2.0 (1.5-2.6) mg/dL Total Bilirubin 0.3 (0.1-1.5) mg/dL AST 42 H (12-35) U/L ALT 29 (4-35) U/L Alkaline Phosphatase 83 (40-150) U/L Troponin I 0.11 H* (0.01-0.04) ng/mL NT-Pro-B Natriuret Pep 4140 H (See Note) pg/mL Total Protein 6.6 (6.0-8.3) g/dL Albumin 3.6 (3.3-5.0) g/dL Urine Color Red A (Yellow) Urine Appearance Cloudy A (Clear) Urine pH 5.5 (5.0-8.5) Ur Specific [place] 1.020 (1.000-1.030) Urine Protein 3+ A (Negative) Urine Glucose (UA) Negative (Negative) Urine Ketones Negative (Negative) Urine Blood 3+ A (Negative) Urine Nitrite Negative (Negative) Urine Bilirubin Negative (Negative) Urine Urobilinogen 0.2 (0.2-1.0) Ur Leukocyte Esterase 1+ A (Negative) Urine RBC >100 A (0-2) Urine WBC 10-25 A (0-5) Ur Squamous Epith Cells Few (None-Few) Urine Bacteria Few A (None) SARS-CoV-2 (PCR) Negative SARS-CoV-2 (Negative) Influenza Type A (PCR) Negative PCR FLU A (Negative) Influenza Type B (PCR) Negative PCR FLU B (Negative) RSV (PCR) Negative PCR RSV (Negative) Imaging Data CT scan - chest: Attestation: I have reviewed the pertinent imaging results. My impression: I can see bilateral pulmonary emboli and in the left lower lung there appears to be increased clot burden compared to the imaging from prior. Awaiting formal radiology interpretation. Radiologist's impression: IMPRESSION: Positive for pulmonary emboli with and increased burden of thrombus since 07/15/2025. The right ventricle no appears dilated consistent with right heart strain. There are 2 areas of peripheral airspace opacification suggestive of pulmonary infarction without significant change. The findings were discussed with Vanessa Liu at 2:35 pm on 07/17/2025. ECG Data Attestation: I personally reviewed and interpreted this ECG as follows: Interpretation: Sinus tachycardia (computer reads accelerated junctional rhythm but I can see P waves in lead 2, 3, AVF) Rate 105 Left anterior fascicular block. Left axis deviation. Voltage criteria for LVH. Nonspecific T-wave flattening. No ST segment elevation or depression QTC 472, QTC 623, prolonged QT. Critical Care Time Critical Care Time Critical Care Time: Yes Attestation: The patient required my highest level preparedness to intervene emergently and I personally spent this critical care time directly and personally managing the patient. This critical care time included: Obtaining a history; Examining the patient; Pulse oximetry; Ordering and reviewing of studies; Arranging urgent treatment with development of a management plan; Evaluation of patients response to treatment; Frequent reassessment discussions with other providers. This critical care time was performed to assess and manage the high probability of imminent life-threatening deterioration that could result in multiorgan failure. It was exclusive of separate billable procedures and treating other patients and teaching time. Total Critical Care Time in Minutes: 45 Discharge Plan Discharge Clinical Impression: Pulmonary embolism with infarction, Hypoxia, Elevated troponin, Acute UTI Patient Disposition: [facility] Prescriptions: No Action loperamide [Imodium A-D] 2 mg capsule 2 mg PO QID PRN coenzyme Q10 [Co Q-10] 100 mg capsule 100 mg PO DAILY omega-3 fatty acids-fish oil 360-1,200 mg capsule 1 cap PO DAILY trazodone 50 mg tablet 50 mg PO HS carvedilol 25 mg tablet 25 mg PO BID sennosides-docusate sodium [Senna with Docusate Sodium] 8.6-50 mg tablet 1 tab-cap PO BID polyethylene glycol 3350 17 gram powder in packet 17 g PO DAILY Eliquis 5 mg tablet See Rx Instructions .ROUTE .COMPLEX Qty: 74 0RF Rx Instructions: 10 mg po twice a day for 7 days, then 5 mg po twice a day. Stand Alone Forms: Disrupt CK Info Instructions
--- NOTE | 2025-07-17 13:00 | CRLHL7_ITS ---
For Patients: As a result of the Century Cures Act, medical imaging exams and procedure reports are released immediately into your electronic medical record. You may view this report before your referring provider. If you have questions, please contact your health care provider. INDICATION: Pulmonary embolism. Shortness of breath. Hypoxia. TECHNIQUE: Axial intravenously infused CT cuts were performed through the chest during the peak phase of pulmonary arterial contrast opacification. Maximum intensity projection (MIP) images have been included. COMPARISON: 07/15/2025. FINDINGS: There is a large amount of thrombus within both the right and left main pulmonary arteries extending into both lower lobes. There is new thrombus within the right upper lobe pulmonary artery centrally (for example see image 60 series 5). There is also increased thrombus within the proximal left lower lobe pulmonary artery. There was a small amount of thrombus extending into a segmental branch of the right upper lobe pulmonary artery that appears to have follow-up lysed. The overall burden of clot has increased. The right ventricle now appears somewhat dilated with the RV/LV ratio measuring approximately 1.6. There is an area of persistent airspace opacity within the posterior lateral aspect of the left lower lobe suspicious for an area of pulmonary infarction. There is similar smaller area within the right upper lobe peripherally (for example see image 18 series 4). There is no pleural or pericardial effusion. There are no enlarged hilar, mediastinal axillary lymph nodes. The thoracic inlet appears normal. There is Port-A-Cath within the subcutaneous fat of the right upper anterior chest directed to the atrial caval junction. The visualized liver, spleen, pancreas, adrenals and the upper poles of both kidneys appear normal. There are no lytic or sclerotic skeletal lesions. IMPRESSION: Positive for pulmonary emboli with and increased burden of thrombus since 07/15/2025. The right ventricle no appears dilated consistent with right heart strain. There are 2 areas of peripheral airspace opacification suggestive of pulmonary infarction without significant change. The findings were discussed with Vanessa Liu at 2:35 pm on 07/17/2025. Please note that all CT scans at this facility use dose modulation, iterative reconstruction, and/or weight-based dosing when appropriate to reduce radiation dose to as low as reasonably achievable. Dictated by Dariel Kelly MD @ 07/17/2025 2:37:11 PM (Electronically Signed)
--- NOTE | 2025-07-17 13:16 | CRLHL7_ITS ---
For Patients: As a result of the Century Cures Act, medical imaging exams and procedure reports are released immediately into your electronic medical record. You may view this report before your referring provider. If you have questions, please contact your health care provider. 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 NOTES: KNOWN UTERINE CA. (Sic) No other history is given. The most recent prior CT of the abdomen and pelvis dated 07/14/2025 describes bilateral pulmonary emboli, among several other significant findings (please refer to that report). The PET-CT report dated 06/30/2025 states the patient has a history of cervical cancer. COMPARISON: Prior studies between 07/14/2025 and 10/21/2024. TECHNIQUE: CT of the abdomen and pelvis with 100 cc of Isovue 370 intravenous contrast. Please note that all CT scans at this facility use dose modulation, iterative reconstruction, and/or weight-based dosing when appropriate to reduce radiation dose to as low as reasonably achievable. FINDINGS: ABDOMEN Liver: Normal contour and attenuation. No significant focal lesion. No intrahepatic biliary ductal dilatation. Patent portal veins. Patent hepatic veins. Gallbladder: Normal size. No pericholecystic inflammatory changes. Normal common duct caliber. Pancreas: Normal contour and attenuation. No peripancreatic inflammatory changes. No significant focal lesion. Normal main duct caliber. Spleen: Not enlarged. No significant focal lesion. Patent splenic artery and vein. Adrenal Glands: Symmetrical adrenal glands. No significant focal lesion. Kidneys: Normal bilateral renal attenuation. No significant focal lesion. Bilateral in-situ percutaneous nephrostomy tubes. Asymmetrical left hydroureter and left pelviectasis associated with diffuse uniform urothelial hyperenhancement consistent with pyeloureteritis. Urinalysis correlation is suggested. Gastrointestinal tract: Normal caliber, attenuation and wall thickness of the gastrointestinal tract. No inflammatory changes. Normal small bowel mesentery. Unseen appendix without signs of acute appendicitis. Vascular: Bilateral common iliac vein and inferior vena cava DVT is redemonstrated. Chronic aortoiliac atherosclerotic mural calcification. Abdominal aorta and its major proximal branches including the celiac, superior mesenteric, inferior mesenteric, renal, and bilateral common iliac arteries are patent. Patent superior mesenteric vein. 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 No ascites. PELVIS The bladder is collapsed. There is diffuse enhancement of the bladder urothelium (best appreciated on the sagittal and coronal series). An oval fluid collection on axial series 7; image 134 located anterior to the lower uterine segment/uterine cervix as demonstrated on the sagittal series is shown to be in direct communication with the bladder lumen on the coronal series (series 11; image 49). This fluid collection is therefore considered to represent urine trapped within redundant folds of the decompressed bladder. Diffuse urothelial enhancement of the bladder is consistent with cystitis. There is no intraluminal gas to suggest a fistula. Redemonstration of uterine masses consistent with uterine fibroids, including a 4.8 cm fundal lesion and a 2.4 cm left posterior exophytic/subserosal peripherally calcified fibroid. No significant ascites. Small volume low density pelvic ascites within physiologic limits of normal. No adenopathy. SKELETON AND BODY WALL No acute or significant incidental findings. LOWER THORAX Bilateral interlobar pulmonary emboli and lateral segment left lower lobe juxtapleural consolidation consistent with a pulmonary infarct are redemonstrated. Incidental note is made of severe left anterior descending atherosclerotic coronary artery calcification. IMPRESSION: 1. Bilateral common iliac vein and inferior vena cava DVT, bilateral interlobar pulmonary emboli and lateral segment left lower lobe juxtapleural consolidation consistent with a pulmonary infarct are redemonstrated, as on the 07/14/2025 exam. 2. The bladder is collapsed. There is diffuse enhancement of the bladder urothelium (best appreciated on the sagittal and coronal series). An oval fluid collection on axial series 7; image 134 located anterior to the lower uterine segment/uterine cervix as demonstrated on the sagittal series is shown to be in direct communication with the bladder lumen on the coronal series (series 11; image 49). This fluid collection is therefore considered to represent urine trapped within redundant folds of the decompressed bladder. Diffuse urothelial enhancement of the bladder is consistent with cystitis. There is no intraluminal gas to suggest a fistula. 3. Bilateral in-situ percutaneous nephrostomy tubes. Asymmetrical left hydroureter and left pelviectasis associated with diffuse uniform urothelial hyperenhancement consistent with pyeloureteritis. Urinalysis correlation is suggested. 4. Additional findings as above. Please note that all CT scans at this facility use dose modulation, iterative reconstruction, and/or weight-based dosing when appropriate to reduce radiation dose to as low as reasonably achievable. Dictated by Juliano Rudolph MD @ 07/17/2025 2:49:26 PM (Electronically Signed)
[2025-07-17 13:31] LABS: Lactate* 1.6 mmol/L (0.5-1.9)
[2025-07-17 13:33] LABS: Hematocrit* 35.0 % (33.0-51.0); Hemoglobin* 11.1 gm/dL (12.0-16.0); Immature Granulocytes Abs Auto 0.00 K/uL (0.00-0.30); Immature Granulocytes Pct Auto 0.0 %; Lymphocytes Absolute Auto 0.50 K/uL (0.90-2.90); Mean Corpuscular HGB Conc 32 gm/dL (32-36); Mean Corpuscular Hemoglobin 30 pg (26-34); Mean Corpuscular Volume 94 fL (80-100); RDW Coefficient of Variation % 15.1 % (11.5-15.5); Red Blood Count* 3.73 m/uL (4.00-5.20); White Blood Count* 4.63 K/uL (4.50-11.00)
[2025-07-17 13:34] LABS: Slide Review Reflex No
[2025-07-17 13:45] LABS: Albumin* 3.6 g/dL (3.3-5.0); Chloride* 100 mmol/L (96-114); Potassium* 3.9 mmol/L (3.6-5.1); Sodium* 132 mmol/L (135-149)
[2025-07-17 13:48] LABS: Alanine Aminotransferase* 29 U/L (4-35); Alkaline Phosphatase* 83 U/L (40-150); Anion Gap 7 mEq/L (7-15); Aspartate Amino Transferase* 42 U/L (12-35); Bilirubin Total* 0.3 mg/dL (0.1-1.5); Blood Urea Nitrogen* 31 mg/dL (7-30); Calcium* 9.4 mg/dL (8.4-10.6); Carbon Dioxide* 25 mmol/L (20-32); Creatinine* 1.2 mg/dL (0.5-1.5); Est. Creatinine Clearance* 36.45; Estimated Glomerular Filt Rate 47 ml/min; Glucose* 162 mg/dL (60-115); Total Protein* 6.6 g/dL (6.0-8.3)
--- OUTSIDE RECORDS SUMMARY | 2025-07-17 13:51 | XMS_ITS ---
Author Name Interface, K6Qjhdnok lity Address [address] [address] [facility] Address [address] [address] Support Name Relationship Address Phone Jesse Wei [...] style=text-align:center>

<span class=clinicalNoteMacroWysiwyg id=[id number]" macroname=PracticeLetterhead spantype=macro title=#PracticeLetterhead><img src=data:image/png;base64,hMTJHz2YCdvVAEYOJKuXMaPPAJQWOZYuYUCYMLC7C8tCV IVOAHQWC3VTzu2w3CEHDBMtVA6FUEZdhla2OZJSYRLDaFjSttJJOrNBBI6KGHBjLkgGUOlBLCQDSIfx4 F0XqKW4SpqHGatdbwT5K cLzNdCBDNilUdbSIviRDJPJVWOpQrKDKDvbMfdUtPCdLSAO1CbaTw9ZUysyS+u8/Ppw8msp9g88X61Fi jvwshdpyBrFDbUI6krWp POCPHyPUkzXojKhG9WoPHM1mO/zTfkWWIbLuOPdFMRydOJAQDWpTWLGKNPQltVHs9DVlvAZp/gECxCGY ZuVU5bHl2UpjTn0Ll2ql SaEyAgkuwTXzOYnr68LPagpXCBEc4jsNJKLvJvnpRRaWs5nG2dDeUxqQZ0opGIDuiz58yqbqyGE5hsTJ Ql1o0ELv9ywmDq04rVNK mWdJxCi6O2fEwhmIrNQGOl8OOnG1lsrvKq0lQocl6qRSyVXKGqDcSnSjfmWBSxSrnK0hA7enm38dXBjL /MrGBjif6UUq0kgo7Ex7 6oQw1x/sABhrlu+/ldhry5695Z/zFYLuRfwAzeKl5nDDjGbvbhuURJKVRIQ+AdQYHAQBQQQrV7+EU0e+ zBzBGyT08JOpqfjKs7Vj 87KVbA8Alvup6+vWEPL7j+xRx8a//0oNekNFzRWInJAh5+j5D0PXadSz55p+1CeLGsWwvETjY89gCwsr Tx++/btVL9+felnmOsJF iDMdUdGRgYFBQVJ/nITqRzPjynXKghAXtPHQXhOF1D8Hs6oc2/SM9AXys9wBt+MmishmXIG4rqKZLzbB GXoC0s6tgejfqNaQJ4x7 Xuyf56uB6ZYqd2C221hHzYY8NWPVQliTCOmzhLzXq7xsXa3cA24TMUsRmqVYJ+2fx49vCuNqGdrzC5bn IEw/wpWrFhB8+fPp/Xr1 9BmTqSRoXqMMk06uNAkmjgwqDAA71GmDGlT48I/icjEqxr3RhEOOKOAfQMVzN6aQpPqQUETyKGbAg2wu 89mxRosWlYnz4WsBKW06 UUihUGYU4bhfj1SBsXPpbPnvqJTlbXHEjEj3Ya55pq0TWqSWufPhRsrrRlOQ1s2/BQqILeu0hCkGx+6s 20tvjchDyPxuHXiJzD2M fCeCnOzQrRk51rErZYYBuHBd2brqI5CdaZ7Iz1ih7t+phw7PJVDBRHXyNYSJAikKlBi51//vhQmDFNQ4 Z9jhnZEgOYaYOIPV6ZrS 1lRxJ976ayqxhFoMSm41pseDsE6G02iRb0h1f7nlc+xeTqEA0hqrttUv996Jz/BajwgFh3gzDTFkAxT5 pNMNW9FLMS3FVt1Rbi6U pIioqLpu4+P7C65SbY5KV+gD2e+NhYVw4vQQR3RVl6K96M0lI7dZ8H1a++W1+sDZEzPGi25WR3lmUMfl jrWoANDIQBTgmJnhga8m ZiBRlo5vyC2pUcOSXFG6w4+o8Ws75rGD8RqPpyPn6427s/IMNadTzO+JMGYqgGb594YCpAFe42EQlCVN tnSt2/q1fffZm8ThFBWx 7NllCltHNdxdtWezi61ms/QDWeEpGHUwlNTyxDyrZ9bGkG7KOo54FRq8uFtD0QLKijTNcKJPgesr67/M NAY/qM5X7rCFBaLBjnPU +cafn7+gr1AMcOYoxERBLT0OaVoaMU5k57dm8EpWeSVR119M4XbyBWVODYytEF6aSPURIlg7FcBsbIOq 6GzYN8FKl01MwyVckFXF 6W/tf32lYsvHbf50BvsdFBH2oaKe1x/hJao0FNVYgwBq1CW2xxQC1mMwr7wwVnnHMCPu0HISsOgfCeb2 wjlurlI1Xd3xbKjlg42J z9rRPBMAQy1I/s1zB61sAFCNWlMpHlsLavMH0i++jag9kiwiiNvA7YxdOpSWKlALIOhUSPcuLIKpcDOb QLWTZgIiMUPf//9dxXrG gy2//nai0F8Y7ACqqklCLv6cugV3oKPqW0wejeUD7v7oeLKSIx+/02LrMdPQc9ovOoMKYbLifA06TDJY sI9oQtoc57+hQ8JE6WUr jHqETeYDp7VUF3ttmhdjvv6tBxImsZYmZskpmbkao5RGV+Ex+QXiX7/g+oX7KRxXQvQqWnC6OZKD8pmS qfwMokOjnklTc7p9pcbg In74JXUm2/Q0ESuG1pKPRvXvgAoa+bB4JAP0PaNkbUH5ZqMiHEk95eQyQbfZ690jVc1e72jKxWqFOVdv D0pDmBYy9EMgCCK9WipP eUqVdQexwwdOlRuddeZO/VCeeXowy8VzaS9EoFaXNPNy7+wTXNNzttPzGfC8BajjxWDibndQcGPaAJ7/ PhxGd+fAnMue8iwJfDi0 xlfbv5GiWmAzAFZKdfuyf+ZX57lA5NIOYRjYsdpcVglbbkGaV5XJIcqRsTJostkYRGzKVNzTCfvtvn3g NG/w20QtytDPs2ymTl+c xV0aHwRCvSbMAJ787tBSxQPGDb8VNsPzyIHn+2uuueKahCRvf9EqHuheI/301OP9fg1aMeEQUyuQySOF NR5DEtWYU8VOYwXLs6BJ nTJWuw7w+vtN8Zu536qV7945veYG4S5e+5d7v2Tk0apJiiu/dsInVtTDGyH4Bl+7OpWYw76stKPLsfT6 wERGTpyqWkZlJCYRCdPn zt0Buljk8yWPKZa0dOo5yQsiNA75ojlJ8x8qcrZHVUhrJYA8x3FSbl0i47BZMcrUC1GUcUBsjf864gJe gADC1ThA6oR6GZllgIcW WriwAA/ChCl+MDhwzTsiScoICCAbqhRnSa8+BAi96xEuaimx2/CeKSWVMPgyS1hhTep1RwWBdV3iGtwA 3VdRXlUg5VDQesCRnTfp OGwtTr/oAAKDQ+c8gALFYqRgGw2G5EfErxEcOTHO5pvlTlg/uWobIsB2a6+kBIoVdx92fvp46x2yIanx ECpR34aq0aHhPcMcWgMY Dj+wpvwJgAhDngUGuXJVPqIXXFgTJVYKIYh6Pk8a8uzwYee2zkl6tWz1a3CRZdSbRgK1tr6R7RDXXN0E so1i0B9cYwigen61lDGt oTQSwBsS7kEvjpTAzTnepk8onR2FXpf6RpS87hpYR5/c5fRf+RUBxxtQTrwwtgbS0qmGhdIQQC9gFn1p mGY/O6LTXWWfJt8LKxgd qJlH+eokDvffoex/hgfLBoEsVJfP1RfwjGiuJkTijPlz0r2S8IDNTzBXJ7VoxtDDSpoFfLkH7+BzLtpo +hdVLJCjHtoNbby0p95v cs84548aa6ttp+MkqVKSz/BOYS5SfUHsMIb6QMZbhmA5vjvYaBPCR0K1XE/smnsXxPrGGXzy7GXq9gAR FZ0yZKK34fFN8ltxeN4o nMLbVy/gZIyDWm+kqrGRNFSzEOM53PybJQ7whGqKhGrrJFzcpR8+ISMVzYLk9OxqYBRk/wpUByTkJZJE 6oIcnpLT0vBFGdXjVs52 +9XIYbJ//XDFZVneJdXkSNJaxU5eDfKJbpIQJw2tmEfwG/YjCGseJvIm5mPMtg5CBP8oN5yT6hOfMGr9 BCHs1LYB+QNBHv1pWPy6 zBcZ5KEf/7435i6d5m1gwCTuZ3MXByLG5CE+w+Rw4B6BMXI2NPkz03BO32iQEGsCCY8+w+X0ABIFCxaC PfHIYWKvVsTmoif5ctTX LXcIpeUtuSuDLWmgSa5i10aGDu1JQomzZJQidSEYNyecofVrL8yZnNlVGIld9b7IX3U9NfX0qZ9uEg9h WKi3EuqyVu+nurUrUcLl wXKLzhn6F/pacQ4Dj7G6fltgkt0DSuMRcGbHNCr2GLDD6bDtT/MTTbkQtWOvpUK3Ah5f0lrp9If2K6lr vWVTiQMU6sZ5+QWVkxYX 8f3JGkQszp/CqIS08qoyuaXe1fE+BcPY6UeJFSVPrL/QDi16AOhjRMXotP8Yn09ZH6UTQ850ikBN0zW1 SIlTY7iyLiwp85UygIw+ gCR3BWBDVvY7xVZI4xq/CpLJ1HAeaNrEu+eTQ89+OX9T34zBHldfXx13Ifdno86QOZKBoEQky9HLVlMe cBCEcuAxALaYtsBKg9Ul 4WGhdGvew/Hfm7xGO506EElEUdgVMxcyeXBxVahITb3GVGoJm2Dm0rWEdpg+6cb5uyY0X78S8BrYxReP 0KojYijmpLB0KhT7+bNk 36GyY/wEVtXD1FYufpqqXD59e/6ZbrvqdEUd+5gJMcIxFdeWRePfbLb3VOhyDc/lk4nZX/oUWH6uY3oC 8h1AxNL2z9yu1QBGhLbI SvhD6FsQEZaEOUuoVsxJh7jLVvq6CyjEpIVWFiP83QLetAzjy75u786o5k/gvrS1DYXZgH1WcEPG1jcH bzAd6mWjLoAolA1nONhB 4n9VNzKAz+iv7VRs/FNNHXtFrp0+hz6fGT/HPTvQKntkAItP00YUhl1IIRNIFYOrj4+gQEUEhIgKuYwU XKfFAjjZH2VGfOjAoqWI v43lnR/ta5l8PQQJTnSsc8O7EV1/GWFMq3IrExAPTP3UERkY10A5TjqoYnPXsJh+z8p/fVJavY9DO2/K sHnFN2h02nV/r7ZaaXws uRHuAuLyXcMHDhQ+XwAj4yYXj34SZaGALXfKCiqqvzud9Znb+X+tvVrhnfOrNJHYXE4gZf65hnPKcvZK 9lo68AuGeBy0/kPg+U4d 2A5pHvQ+LhLdM/zo4MseXaCw5LCVq8/1DC5r+9RpxmsJWDQN9tbxx8dwJVM8ntT4D+mfiY22TNEpiQXZ JOvgEns/Tfmth7Ev2zdr lbAMkQmuB4VCmibZRvQzFkQOp3kApl/XEJHzsRRTOFgeuPtObR+yHq1V2eeoAlxrOGcHayTPmwitaQW1 KZUhiGgKwQexfTB8993Y t6IuFblRgUv1L3Y6IEFovmkSWqwvLwxpKm5EPzjE7evhWUz0PpEkwHKtrkWLCUUF6pn1GDEqvOMUXQpZ JZtboRWncj2QPBxNFZvW CkkXRGy4vFcSFpFpQyLLsODbfdQUqxacuwxNnH0Ez6jDObiWe5KGn+P3kUeMMT2F535P5MC6mzaqq2Cd MY6gHd0BA/wrFz2SUJdC AzeXPoQmPLaaFM3bKlUulwKD8kcTtSCyPF/95Td5yfjYIe6nnhTq5DJrHKtctMzhsqWjxXiscZegPX8s Gne8t4+OQW0UC56rHV9d 7NqDoXQLbQsXfbkYbAfVza5Dal0/p6R2d2APT2lDUwXQfhR9ZyvWYM+CwIRgprrUI4x6vl/N9sBikfMN VurgnDUDhrFbkd13chlY x/P3K2ZqCH3YikoORDOcYyrCAQ5SYrWcXlPisbusP3FZxWMLhqpzOh63SR+xegcsRnGKXCZP0XLAn3MU Rj/hVOHlVxKZLHYgNm86 lkcO6mExhiWQc8yoNyJ5QIoRDLqcqndAUVAULyNm7ZNP6t0jPo6XjIxHOIJaTH5f+D+exBmQxTC4QkSv QtWpE4gKQjCEtLO5tCCp lS/nUyC8F8+craMGf9okKTa9K69OMBlK7DTfBg3a+vn70/d0l3BmSjwhLBXqpgWssL4oGoLFIkQ06COe a0kwMrHRhLtS2Q/rATi4 e2ZDmJjW48Xn9Ng61bCflsfhcbU/S342Bru/SksP96q52ZorByN1G2LRfvyRrXNJdFCAyFHWVoEN0p1s eSLBGrGmaXUuCStNR3Zx zZdpp8/QPCgBv7MJWAHOk/B4B5LuQF4rcNq1WRf3maAeeJFXZJxi5buz4F7HhrgO0H/5g/rZ4Ju4Nxse 2fe4s9kUK6aJpCb4PGyl On5KBIPp08Pitl5OI/TIxenckjJXheUMX0j5D3xXUGVsK67wQHvJQ8lee2BsMqE5qGFziBh6OJS/AELE CZfMWjQIOUj+f6FVaDCQ rLhCLpy5JQ8Tkypzme4DR8k9KPHMNeVqe1QvcSyGi0jWxjxVYjuBCts3ef0nL7w+Dc6/ZAmzck4qHaVP 703k+jxE2vf3XIVBy2os +879DmzKSwC8WOaFepSfWTJVDmxsmrxIVK9xuVL8NV+yjxgE1KxV3sxRpXrSG++PB0/gmeOtKkK90uSR +VUC2FHoPf5AKUcuJRUB mV8zopGXPuG3TLYF5MISig0ARTxtpeLevKoQ7JtLY5sBGzrj9VljhS+BaKTNdRUJQQiDP7KuwfkemoJR tKOv+ZY6ZUpOZaEzLEnG coNFvhpu2ROxEwoYiZKNyGqVSVHLRWn9VjYTQZ0NsZsWZcYsh/EPHlB7pZWnJyjDVbuZsNfmqeFfpAKD nPl40TARoYQ2AD4kjXAE Jp7xk+i2OVNTs3ZBeY9vRWb/krGoxWfEH+JUCWjWwjjJ3+vgwYkrkEKNpMhi7+kLCFEUoVASElOobtGm 7Vks26huavClpLZiMJL/ yjGyVZ9h6+MaoGfC07khysvV4TIkGk8sKsStfQw1+Esdras+xohbBtUgyUEfSFgmV3A6CeClh+xQoqJARJ7 xz0TpsLacZbxrCaBM+6h do/FyWjqssbdna8OFlEtaJluf93FG0lQyU1g5LNRbd8BhsZbGEWAoHxfJTGyW0Y+8g/CXn1wdoXdvPnA xmZgtz1DF0Dlq/tp29eG y+GXIg4UEFt1PZ3KYW/kARJmQuz5tVOYjOw/9EZNOb1G+xZtMEGQCelrEqIIprpFdpxoQAM3Ny+MrJQ+ HoqjyG66hv7g6Npgaznk ycBK4MzryYxWW+h7RdGGgoeaxE48QXR3jt+/fF9rF9rvW44jCGYs3vXE5mE2doVAYPtDGJxTD9f52grt aXG0m2IZIXu1QayNzYgD lSt88n1m5KpVoJzXRBCcId+0Jx3zIiVQFblpk3nBoYeIGEUHKJ/zHtL7r+zbkQGjdbmi2uBGbOzn28cx 7zhxOU9Lq4rUYxHEY2G6 S7+UeYP2bm7j93cmPD1ewxy3YswJGUAjls2ddOnzQL16QtFmEFCDrt0tiuD+IpGEeXoeFnfKZzFL2zHY LXXeGn7o3LMO/+U+xkmP 0NNdTcDQX7+TAa5pcVj0oLTBOqZhmt99zrfBYgZm4MMxyeOfUleoCQrjrJ8APFQRmgIbaePNZ4hfv+JAPANESE uYdrBGCWvrpy1nwNdIK8 6F025tTY8moYiLJjbOoznIR9MxrCAPKnZYUCE9JhAsIsTkG09MP388OQ8cFikTdU2bNtSn6dgXLv+RPW IAw+KRfIFr756/T5Mnmg KRsk8dZQzr/bxBlBgVRpn+GvJsYHnWYfPZDWny7riu30kzgBQah2yl3msOttwOCrOGMKQdcsZfbonvZX DkahzX42JTXCXXhVMhiK zEBbHaGWyBU3HOam8WRrYSMlZrKV8UBOTYS4DbrM8IqdvFb2Qr9w7GdWbHtZOBCoZi+pJSSSDdVkM10v xDaQyM795DL3jdFB8Tzt PpALIXVyCLSyKngScuM1kMOvWMTohtpKnpq8oeX06bOHOHyP9Dy2PV0k8C3elEaV8dwSvsfY/mMholzg IIFEag7Dt2UWHXRJiZbz bCKLAx5nLLl6w8zZgjvVmH2gWuy99CtDHe1geh1IWu+FVrxazen8NdKXe+DIqqFSXhYGCWnpVOoqIBT5 Mz1jFr93JfS/zOCStZrQ ohecPCIptRYsbeY9SVvlQqwed8GmJ9+5QrY46wTkaZCl4IkJoiZ7Ql3Ro4nWPAxfI3uC8EESsno8WWKv etEaL6l5RfErsUJlmBVi HvMMZYUsK8hzN7+iuT0qqmMfd43YrWJV23nww2xidwCTIhdKgfgdPxQbtPSiudHR7gucwEwrMB4tsM0Z 2D0azkTE6qaOi//mlb07 tlwTyLqyJ6PqYgjs5LL4jUKEw2i4M2sJhkytkFZoY3/pDgjxX9alOT8GOHpMPA0F5JK/c5AJ397lLTBT fZk5HH7j6oX65LmPAVI1 PhVTmnGpsNlUHJoF2PNA5xg0ppHsK2IAjeute0p6ZkkPeYpDXwblk68ETKAr2XtnB5YNBm5u9REkPqi6 Ny5k+rUqUMVb+tGN09+T 0fxGDEX0g+ns3ugtR/XpQ8kvp2ObzoEEZYiPPKrOdevjv/WtYug6etdXj6IRrvdsghWLgPk1GPn/OnLZ ESKYqY1dd/Tf8aRIySg8 Mqe7OvsrR4nZ63PByl2xK1/1S0igNHHmHpHtPHwX+xH3dHf4T4pdngEX9nwqxqDsIwV/pLA8fgGB+jkh q3p9625NU06GQ5JPSywQ iBMgeHTTz+dianne+++hnki3TgdreO1MKkV4ieqHUyZg6RqAM3JNj6nzm08taYXs34FpSTnuc2PZdMckvoDL C6TOzvdhuoY29gzP5jrD gLCmaQmZJ0UhUZJ8H5aG+K1w+NNkLSmZu302+xX1ps9cVnkgJ9hq0cKsi5fYqK3ZVCgpAj3dcLbslHKI c6BEiKBJO8dbrfQSxZPE DGvIF06sFTxA1GKFu7wLZ67sbkjvLZGZfGblKYqHao81i3sfduE6W+YbhMgqIVRjA1/fyFMgikwJFzW9 KX7s4Ra/hfJPm8Cj2rod yjpUjpKApFvYgEd5OqdLCKAH3IRVJWNME7BDg+AmtLzv2TXb9JQIHvc4FK337M86DKL46v5fs+8CBnpy WQIDanZ/S3wqjsPEcYTm EysNFaFfVUivkuKw7Hth1jxfAqfsEufbLVSkjXn/q0cE7Gsu6sIOSEYkOpVYa2+gVz1eDfu6XTqVi+7Y M7MNzrIT90JlptcGyNbr CA6gMMcQm7/dl2nc6aZBt3J2hK8cMP2n4l1aW+awNqSKAfCYngZopJtK7EXuySAzwULm6panMiJAVWdJ suXu0JSDRsA7GKZFnCPO n+5XeR/TikzmA+Fq05iRpEOfGQ58u/tHKA9N6EdsNFv/YnCWBYMIfSdPxoudDae891P8zMbRRRbP8ClJ LXQRXfCM9DJsusUPXiKu WRX8NTUgpWtUNiqz79KIdWt4f1Ue0KcGHmflp0QXWWBezM6R4J7YOemlodhKsKNKvWkTaQfn8Negx9+J eJS/GjqRJVIUPI/I6nu6 l8P1e3WFJkbTBw1043xqAaHBrZsXjdORZBya4OHSnwbKwXFnveKHFB1ghG7t5jgkwd+gZQgtCVQsmRJu WWYggBrIEyBAUubVKtWT wygobjKqkFHGse9mibPbQ0BER34jVlIGApKBS7yyBLox1yT+EiPom0eDHHRYMHhAhUSRNI0rLbD8Sxuc dZ+K/sAqFwYrTl5Vfw+R wT8qOx/M2JSy5fUGpVY6uHiZf+xxRcQ/mKg3JAnBej7t9yNta78BXT0KxFyHBqfXcxioJhwppad0XIw6 K/32kNVYL53SM3omrPLJ RYgTIFCm/RGdBtAsU+/EBqbDiPuFoA6m3Cvi/glrpv1aa27oZvVsvpExu5bwnZdyHVb7a+JWaWL/0PCK Csjjc4/NYDS//ua5Orfe Fd76bxptbZrcZLZdcO+kDj+Mh8cZ+R3qOQOp+/7S1kAcV8ElT78loBE8jIDLw/0oWwo2h9l/6gYSnzpC UpbvVLG8+mCOYW7K8wvJ ORumX5ZgWTyYyZbE5uV7I9OiGBRqYfHzEZAt3G+euSnLioTm2KU8L907ZGCoj6OmCAGTl7iTTDrPYf3I bakgDPRRBsUVzxRJd79Q 3B6n0h6akOtR6QU0aUlLIffIo5N5uIT4KBAJ7J4dGCEboOVCouQdpzz8cEp25hBKeOEdA2vo3FmeWSmi X4Rn+gfQPGnjtuER/Pmz dKUBTvQVECJDrG8wsSKurolgU72AHVDQlMzjygy7oQwo7XIkBUqTlvEuJntIbrStHyfLXJQEAKJMd3Q9 CfQ3sZRDgN5DwaQASz/S unSBNiqCWRR+ebyPXdI2txeyZC/VZzeFKjZtU3KBLLJxCf1YIdusS7ofIvHmy6zQStKAlGFLVyk5VxIk CIKsMtURMmLV6CYpU+aN Cm4VTCtgACAWFN17gAPLoJdTB9UPrQ7MBKvcMoJDZUY6UquzS3egXkuguynsG2nnYRhElHEk2zXAAk4T ogChZP580erTbC65tFgj 1ExZMRfIOOVYUTdmxKt/ZSoRBmimUIzmLmCqFgpom+TY20nrNaxiXJsRf+tEWfMq9wC+k86vSv0hoTRJ z5E3JEE3dXO7TPVw74Wh HHbUjntMomUmOEv5NhID7GsTg0cz8XZWflPziQ9Il59XPSMqjosmRevqmjJHCMiDrVCNSRVW+qFHJswi 5DjmWIupg8jWcVzhJ2BX G+uIL/KPCVlwXgP8o4CD86f+c5tDJvZ6BClYnH/W+SZtK250CiXo31uZXx7o5VUf4NyirWUN8FE9ihIY 4l8LqZbFy/Ek8MRl1oFB kxTTCG6OTSzygXICYGIbA6LleCDPfJfKBcXLPykeFdjYRHUFPpEWUd2ftKIYzliUhmhMQPEohP5PWKi9 YGLyQOJhsaLgsLUaQ7tQ /YtMrb/VNSFb5N1KcTLZW3LYv5Vzv5zEkD9dukAdnnL8BdbN2nSDPgE31MqsMkkJyMOq+a+kDCiO/qQX +5EUNk5fDbCiRCdZrSfR KG29zKS8SxnJjQY3+wpMj5+c7w4BZjmGxc82ME/to0LLucSXybDjhNWo0aPuq+6REu7IabTWWS9F8CJQ ksJKiSEQTLReVGh/y6Ex ii0aoda4S4V5K1njhPv4LOowzLjeNtnS7nSZQD0ki5WnZsvQUi5pfpWQ7TTTOLLz0QzeE4ALo3efJN5h l7svJXNsP/nL0R/HbflD PrVY99zpd4Chjb1WODfDALHAPu3xhsbhfEgjzGjy6gNuKYDMfMxRgBHj9CRTGhy9WcK9IlRQQ8xMNwkG Dpg/4qI+MAgolChfYRFE h91MGFlCTKUaIMIp9MpIHs+NKxvl30rnhYLHnpGpJ3XwBU2+Omnn+jPP/+NFxoycZKQxUE8lpBkww42Y XkFLFrAfmDudwsBq9TQQ fPXMF646bV3GgZxC+sEXQnPjdgK0sqEGZHrdxf8RomslIU+CrcThhiwBZvhhTWUKPv2bafzwJRNbQdeM Pl7VoPh75qOhAsFiNgzK qlSNnMDaS7e1ocJemBpOjU+G6nIEktUcYDCGzL1cf36sigE3w468K307GBETBniO+KRMVBNTEVEtqmsT nE3omEBxIwnN3pxKxLed OQVNNrR8rYUPLgivnz496DDEJ+VvbSQCLzf6KdQMDoRQAFf0DVGFbtVzvYHC88/9uw1n1d017PXaZ5+4 28ubHnQec5pIiUd8pXt8 Ix4iSOQcdZWQk9GFGH7o8vdOBTIH1CmS7qJlCOtBbURCGQn1hdmtq/7Z4AZNRweNGVM913sG2uJ32+/r UIWIqNN+IAs9Yikvd7rM tOmTZN+rTA1lVtUeS6zWcZlSkzgs+uuu+qDTkn0LhNKwXGZGrxiC8qVU9Pez8NBOGmUOFVnoQWNqYo8b javpGrVqtS+fXsaPHgwC g5NpwHBnRUQctPZNkRhTPYeyRHAXQFcWBYSMDEZyqSOq5ERzeNTu/vIRuRPSFnXE3kGOWgHCQ5OZwAwM IbxCRYgDMMwjE+wAGEYh rH6byWRjwEQ8gQvOWoMYOcjJTORQNgW+YAXUQLvOJLvECfYd2GPUPF+/KliGlPbLAbEb5dclOP5pYRb/ F6I3dsYIEtxbTGSKyLBQ UXFixenrKws+FMcy1zG5fLCi7ssi13o124etoc94egrh1UFR29LWyaqfLCMbpAlZcFLaATHxTn8hFUOg tSzZ0+bCGRHRv7s+ROPB Knoc10N29dyWv5rc0lR5jULwTtyJfZx5EDPJlFnz0wpogfkoUaPwwyKtj8OZ1+evvjiC/7SG/Qs9rTUW 2OlT9IVYlboUr44jOguq kqLAP32vPx+/tvlebmvhlfmMqtA66dHi/vvv1+GGSa/0mX1CWm0j2kd391PPHFLBKfOj5vFpAgsSOJJm Vbf4xOJVWt/EytWrKDu3 cvLH7Jpg4/+mSpWrCjDjvjvf/0Yeu98pVADTLyNEr/gfYtKb5BcRH72Jp3pfVZTz84ZdLUMy2SmOUlVH 9EitPh7QI95sUOs7SYx+ guPLf3FY0s34Vbkwi/+cE39ebW7oUHmCmznfFvU5sXGq3CKuOxpb9V95mMV3srVRbHIGHHoG4c8JQQsm thLmaRtiutbx6tsSsnyN EKSeUUDwt49bRRsVBaUMA39XuuYZHLsxmHormBKYe9k+LiX0z2V284Ii0ooO1QCrMCAsWUhuvnCIjpX2 OrRowfVrVtXhUiOh/g65 ikhpA3OXgOJcHzrNUzzKH+++KLyuQcvFrSPm2++EgJUnTmx24/jev/9/bRIcNiD68gDMdJqYjWDOGxs1 VTIO95++06fW1dDmoAuU cw/c9fF7Mp198AmtRgTzn6oXvoNTQEsbUiniVpH50c4rECCB2bNlCDZNzqpeitlrkqupZ7cj3HaQpWWX ETYzH/MR8iDwYUYbCUBt 872jxXhp7EmWZlKDMTGnjBu291L89OM6FdMW+/bt0+OxyAd+nvpLIyUrShS6BBsLbK6Pjrg14WFnKFLJ 9ITvi5uTzHuOCnYzwPJn TJlpMN+3Buc63//+914x8mcPmb6ZJ+GNj0mYABOIAaAMshVcMAXVNh2wRFHcn6mye+HZuNz4O509MAJo CDh9shmRebVfHa48XT62 tlcSR6ckrXOmuptr8+tUrgHx+Ie4jfg/reFNsq6eKXSCnLKvn86NtB2b9JDcE/2p9iu4lN4C/7880+aM gNSLGk9QRUbq0914Qi46 awiQKfypEuzcvujfDWXuOciZ44GbIpeFfIqK8rcjLD4J0fPw5rtlFHzlmnA5SAf/fXXX/HHdLyJL60RQ MowROyZQMXuI5IR3fWTT 4y4REupteHLU37icumkx8/IrYEDOHw3cIkrbbla9sCuwt43zeTx8nFaw9pjmtQvJO38HGK6f5lh1VBQr 6kPgNzlPg20Fao0hcW2P gi2qXOZXXN4uI/os76lSAzhfFsFRh8RC+E9wfuN+03y5tTaxbwTL5mt2zAgVEtXtzOw+tvz8LVEGM6uL aVwgXgpvUKcDAJH+sWJp F+2JiMsbDgMfN101pr6jSSmCN7TsZb0a2oMS80xwEpyDGnbL15iofzGo7TexWsGRpKpgBNTKfNuX86y1 q4czxtOFb516yiMneNUa Qjc3WWBx0xktig76gyzqqAeN3++6kkLJNQVUEU2zdhbWnQh+++/K4nGKDDz6GjybElufkI1ZO+kdLg+I axs+2VfXEc9DxTfyC1EL XXCgrPwvFNcxHIgBVIPsVdLROFQiYmMKFCCPTxo9HFHiacMUUrcSx0y5l//fePGG2+U3leji48e2snPt HZaUQVR9PNEMthSOZlT6 lb4eqbmxT0u1J3aI9M4GgVPLs2Z8dSh5j1XRJWw98ddmTXqar2SfoWUK/hYTAYQK3QmQBwZpLJdZAP13 nQtM5dzjhhsUL7SM0939 pTQDzJhy4cJb6NSiCUBKGLj77800z6HBNESMArZd9/6Aqk0775pQCrcTrWoI/DgGWJXlAx4vmq+33nnH Vu5e+SSQ8Am56kzLsIe0 l884BphihV/e/Sndfj7KexrWHeghTJYwfFp07Xhe/uIXVv5oQfDWam56VnzZSxpXFCyqfgJECfMM565i rAZRdEg3gDQjrYjuBFr1 G6jzQh95+7WS5o469hmsp/ViYa/8fjjj1/9dhFVwwXT2DDTDINeCrr4lqQKAvLnSWcGd2g/VMlHz7ABQ GCA9P/+++85jvVUgGiee +3249S1Uu1UNqZ50uMTLggjrjvXeMlKQvDx994hK4Xo8qAdn33yWsk2CCFWPwTKE/aLlp+KuRrRwpdpR RlGejGNx5PXQVvZollDr ghkjjvMumAfMByRNbgf7cabIOUPXwPKypKw1a1qKussq9vYenOUQc4Jjm6Z9wJDLjwukeVgL5dCDGRbF y460WPBLoHVWLywOm4Sq k8Mnyl2684zPfuail30yLRp57EKQGldLCeltEJHIueiSsYYAf/k9uykztdz2vXtkn3/VRm0qIfhwC21u hlSiLcMBjIOrKi3vzx94 qQDyOpRxTNtVG0n4vwFugnPUGLjG3t3oiOZanI9jlUAGPdGg38uqPnnvAnvnrI3BiLetexQiHYMMrlAv Paqawi2fb8YUV/XHUgnV DjDdi8NYIpUaFMxdgEbgszomuuRaXZjL0uvQB/e5Am8371I9Gp8a7FFuZO8p6B5Hvnw6Utpa22NBLWPz QrVZcuWqdirQQvNERA8+ nrXVVpiscrqY99be8rR7EhNiNqvjUNi8D6qM0nc4zivsxkiR4LWNjcINd0sisdLve1n37eNFtoL69JWD kCutCaANMjPk/fy448/t i0fpdm72Hqy16/xmKli3br1sRZwhMLTxfWWAmglfWdyKMzaJC5DNfKPqQVU+EJae/C1hQ0ii/ToIeMcg R4ZR/m4w+qs7YFLKX9Wb W7pJGSeKdcfMObaE99jAxHccXe13Hr5C0fwBrJtoJL7xgPZhyGBQelheznXFxS1zh9y+z9gA60ogAJc0 K4QiXGDrpT98L5uubIuh +roZklrng8YxdgIAm+vfTn5NXZOA7k9lISRZmLT/lCH5n9Ga4gRbsWkxMKpPa3kmVeYEudK4GqyEYm5q Zsw8upWM55p5oa87Dh0+ pLrWx9w9qmK6v48m+KU6066J0wukscFuzKjA+euwkcad+m2gcEGSPfw8Y7bgiccDg5q17YJuxcHl5Bzm b++7540xrGCuq1s9eaUH e8cc5ABuf0V359lL4m4rMQkvXZzz1oZen12MYE2LyeXaNq0HxfG4xkLIJKvrQig2Mm7JaFcm/112wXCO gxKds43CED0MZZA1hwGe iPCGKeaPUXI4x9D/7Cv6VlakJslDh8CbdDb9pAdso6G3LyxtlNKAZYGoCdxK8VP7fxYVfC8m0mWSML1f 5cQ/eD6N+G+gMe68othW DUL2vmpUYF5APpymlr83b+6lRMQB3OwXPG5VtOxTj0tjLPfmSEUajINYFRv8GHqPctQQDqnkhb86i2e6 kLHMTvbg22+HcW2L650T +aWK9ma7HltdApj99e7f9ECbqZ63vkngDWv4/E8bce1URfA3GFXglL8NktWNMTVmqKpZyw8EMVSaYnzt ewLXpvxOmLEiBHKZ/Yesenia 14gXmxq03+SGe3bKy4F7530mvURFAQJM16DWg5Bt2BDGlyVJCFnAu1jX771zlRbOQDlPl6bg+uAVYivf QknwqHUveq3vlyO17TnD QIJyk9h7KNKtkEY27euxJiQi5ub49l4s+YtyGDVWG2qJlm/X1ZWrY6OwcUFT2DHB1i7z8yXEe/YW1D5g odtHa90afvApXbUcQw4z XUXTS5vMSSKBhOzknMXeJut+/KB6RlICMKAmoVbr8AAidKgRiOFGimMbvy1064ozEwL5qf9x8x QKPS0p3mP738Xvpd5+z+ 3mYRacfNzCIPqrCNVLuGKHILxlZnfkH3QRYYbivxnC5kQ6WTpOMoCGK/fcj6vrSWv1uRpjI3TYL7U7VT FpUyme+UX574EVOLOD3P NMJDg0Xx8u48mvlRa4kPnP5xwOhvBmkwryXRe52I6kFuk6UjvGBlpyRdUSZaXwcSwq/Iw8PeevKRUkG3 IR8OwF3dw2ddbIQsn1WU 1S+sFysf6DS8+bNSWjbKkTStNdbYHJt/T1Cu1U+70GsNn191WBNiQmXOfwTpqZuaehm5zZI9iWSNVC2B BAZRYUP3iHk4IK07oJVa nPAm6ySoOnCyzQsguHIJ6/RShSUF7xchmGFyWjaMsvTQJmwaT03E2+7cYRt8kFzKuzukodJNRrjxDSj9 YXDhw/XcLD6qCMjcU3ZC GLTtAjlQMFDhIbEGgWpJ6syPTvs4JqgEp4z8tj3i48tW0HFLdm0hJdFMG5Z1f5c3ocFzdpiILKoCK4bv C379+4Rdhp8ltZUomsoB CgArgQ7uvm3XcBXzi2mrGRW+amYoa4Vsk6gWYFg0xV35lixleNtRHERvQQ31fmozF5Ku4hkhiHwE54ze VWu3qZ4v8VJij/kmQDBi lTLlQX0wivTnCFPud3iBwhswFlzV8157fnFDSDS+dV4PBwDgroJLAN71KC1uRxoN9gjcu7YSV2jPmeYH JYEOcyN9vHVbUZyRwlgP GQon+llO6uO20of3bAPsJoUbSrXuEqxLLpu4xNlcsl26V9bV/rSmxTZzigE7c9bQ593p/X5U5hQmTRKT c2+D5cFmeh3BzFx3HXV1 tYbbpg1PeelLHiAQq7TgZv0zA2A4Kr9qkz4tXl55p9yGBv0CucGjkvQQDSHrpUMWu+6tMsmeUTF0GfM0 Q8U5MxIe9nT5v3a4XM56 wthfI4eggZJuKutJuNACKElDl0kNC84lPYPavUSgAEVhvdu+RHCrzjLnYW5iUvQLmG3HacbmckjbF5qS DEHfCbLI8RhsKCMvT2Oi Xg49WGpteooyfQM0m7cw8q+Yv5dDN0368md+fodSrwaQCXUcG3N9DKEWOEHM3wtdVOYyOGuimAdEGUTb peoh3ZcmAg/jTPtBasva QgPiq659vnLF7wy1O3z31peAcqxyIvL9ysgsx6KlXdFZXFWPtUjhXzofFG2NVqxw/wMtCWtIUEqf/jhh 9IPctOyQTeRrqjRrQXJD 6dsX2YgjGYcnaKXb2PPnnRgVDw+k2IEpIZBWREP9d9WqhQkFOR/zoUnjRA0xlpRFKaOtNdamTjRvp1q4 7XlNfYNJuvAqbflCddpb HziPlBXD9NTDIa2aLf5dnTH7Pz5tc3yasmHeQI8995oam9RUrn/o0Ff/dCCBbLeqMkZYLRDPawZ6ZVHp Vj3PsTJfa9FBBdkOU4BH 9622STmUMTqve0iW3qZ5vKngPwVHgAnFpOweDT7yU55/NTenPwTZrwwaXWG/SAV7YsLssXoSHo5Cy3sP Y3n57UpZlfwrkPLEvNWC k4MxW8YOxUj7ajHOxtZAui5rS1EG8Fomb64dtxo5qksCCOsuIogMnMxvke6TnHqdMgtCBVh5krjs5aAV znU6SdWA4ubuDR7HwKSX oCMVRrntk8JdsTbzkDHITnWBXrNAUkFsB0Sj96cXIdacqw7vMpGjNTQdpz5YtAGbM6z20HlAJ3ZukrGi 4I5UXSms/ZjlbzCbW7Mx S08ITZQ+htmA8jJMXkan9a2Vs550UJ4FfNb6TnIcPKQSrNSD4Kk4hLIEOWgzekSuKNa4UkvWamd+ySwz LVqiNoxjErVaWjkq62JN FmL26D5ZpRKy6sk9utvhIXSTn8tppavnpMnSY9DoUYvKhWpbMpg5yaRlHC+riQVGcpv58oWNjKdy6YmE 87WX0WZw0Pd87MUrqH0t /322+XW09+DtPqksJrENr0C6md/8MbBzganXeZA1D3ztLNEv0/ZYzXT9/YxLgry3r5Ges0uAwse5Mayq EvxmoS7R7/We+DJ/Uevi DVpf6m56FqS4phqlfeGo++9373ptu56TgL7Fp4OYkMivKfD4mfw6ppik/zQeWd61IYJBV2Tl0H72aPSx YMUsT8UDeD6FVydC4bSl HOFXpzDpbeITRVZM4EVnhYa+RcF2rsxXdfbD5SzavLjkidYTGKvk2ZJSZueI1bLsiYekAjKmfa9Y7Hzx AdOj6VACo15PSqQ08yFN qpPczl2owceAL40hQDhX6XV2eqxae6PdZrtVQuy2GmccJcZWqEDgHeOvrkt91joEepKc8/m66JfvIrxS s0c6g9sagqbGVXxEkSJJ jn29FNArekoNNYt7nHv3WZ4hS0136os7MHonOIK67m96EtZ4pWv648bYWIPMVPMDp9NjsQ7EjVXjZvqF wzodcFckdcaiNcCRC+ei DwDxmT8TvvDC7QAE2aJHr2XY+/1sa+96siFyG5OnSEhR0U+NM6XxYVyX7OzyTrihcCqgoMA8WaY6xUPQ DLuVuRPqL2K+eFB3509P vw+nI6r1eHYrZA0o5wxWNPv7HNm0eU6MEnL74fm9+7TgBsiBO0sFIvmodLMESw9mbb1ldJdxZuS2+KqU KGCV/jFi9tyboc0aRxPN IsEHvbR2hJgcCzdHNiuIWfiW0bX1udSlEHsEH6rlQpy2j0kNeoyJI0NjibyUoHhVwPeU5w0eye6L25n2 hObcH5tWJiOHP0fBnBiY EYYD8B+wUD0+9WB3GtxHczG4ylEfZGZDLcRr/Ja89IO/a/n3yEvorC4jmTy4c+AX0yfgY4BTIayf6oE1 N3WGFuVu1l4PvTO6F8EC +O3u756bXZSfIOZhtVhB2y///0lfzAS1BNML+X2T0nsXvOws/okSJqQTrdLmyxLmDb0x0MOGgprucUaC w5ibYQMgWJ79vo+4j7qF 3LmcEMvtiCEit5Sy6uaJXSqJkhp3PCkGrGYOL3WtGslzTyuTDv6O4bb3cnQEjaUaHZY4B6cHJ4mtWGv9 Zb9CnTmugCUub745TIjR 4gpEB814yLHCnTaT19sgxEgHRlN9GcFT6md9mbmRuUw3P+yeWzHWrLwkPI6f7Z8wblRNzl50FS+gxVr3 UoGBg4p74YrF99CZ7HA3 Ql4SJQLawXNaa2SpgBOqz5V3jJ3BNswswrtwkQwPL+G1t4q7Fhq6IZRURHmOSsQyYS6fTfVHcOrOMVh3 5jhk9Cjz8gZkhSbSbon2 fBPDAFDZ1VKVDfLPjYQoZXUDu+YxjzNHLGYewAWAoPPau1c4YcRFOSutGoYUEDaJExzt4ATqLIZR1Y0I Gc6yAXLkIIGsgLAMamHO XmJPV59GUuiTEDuTSZuHu6WCwimqGwuwxCHWIH0nBJkBXTPzrcjy2imJjrmG+yXE6c0VL4g5A+Ia0D/M Tfl0FfU25gDp0L6Pg9fT TKGh1ZsaV/iomaGoeXsN8Y75AvhakvN0gtcYJokV+4f+qxFK05+WUhq9jxpZHVdTl6hSmuzpVEmT+sbx AI0yCOh6ZpMKfxz8ikOD yzvDwu21cry2fKbEdk2q4BCv8OAVTb/rs6Wh7U+DK26hQcWJ8CljXh5h+NONKaubR3IsZMSHs63+xpMn RUZgAONMpdRaWvNi192n sWiPXkLrDoz1qImsf6eTPjMOBVpG5aVeo/JfF5bRfsCddJ+iNuyg6aOpgGxb3apcVQBjml2//770hQYH 2IV12HGlfaGNFKjKtK/G t6j9hV8p7fN9EVynBXueDT49/fqtLQB81ZwoXnk25g5hxT0wKWJtUmNjeMo47JfiE37vBqkUi+X7YGJN ggnKYHkrxcyx2WdTCh4G fksEwWnbaMDpWoK3fE+4zSdxNgzl6/yHlwuToDnCHEuXYBqNHw9WMR+X0KylWpWseT7DfuBliQUAcDrK BCGYRjm+oEFCMMwDOMTL ILHtwLBh9EVshDUs/aLWiBKPTvQF2bPWWkAOB7TPrNyKCwtVCSdJEPiyB+yKKHUsgU8brGLofBE1bKjR BiGYRifYAHCMAzD+AQLE ZSxXNKkGSDvCIWtPbMFhKLShoXETbIEboVSH2XTYKeYFTjRAAfXGXysSwuAJQLgGS7tRjAdQOU7WKtRn uJIeii8JvYglGLX+fn5k b+/u7alZ3ONJasQjmjouWILpYDDgaHNgqyWi8oFYllG5j7vnyHagit6vpdn2qDVQ5onL3xkk01hjk5T6 9xzD/Wi7nVaAwkvOXfbG TKigcq56DD+/EmzV6hvSquTduWteMes5Fm2NDxVLIN5SjtXjf5hVj72EPVxk7akwAt48fEV+bdq1Yp+/ ilykhrd53+tz9wrb558S b4172495ajoIw6s774/McnKdu8qUY8x5xrijx3vBXkX5df8H8uVbBccF0sP0rK0dOpVHm7C1+7I4fz/N KZN7OOMaFvUWnWCSpYyC YpQoUKFqG/gqcf8C6iV6jfHx0KhnYMi48GTsm+mtvmwwYTyUYqIXVCRtpHl68RCK2ll0Jvih1eVjylbd KGKJWkPyuooOt9WLy4JE YkMYC0nxQSIKjO5Wp3AZ6xgR6wNUGomklpZLTqXJm+mW2+9GQvJjbNn3pCLX7Feh/ueah8hsYjBC+kTM 4uETWZ9+/btjX79+hm9e xGatM89iCKA4FXYph8TfqApAKF27+ap0L+WuGy5em8n2e8308HjevX7OplBYNLIuUts576/l6HOCE9rW DDQEIJYOoRPnjypUuSkc BBWdn0lAQ8uT38ObhTkGGgggqMzKHgWJb29DLz6O6+VX3/4AdHsKps5pdEV1BnFFbgbvzhB9nwv4dpW3 Nn6l3MYsWNhpWu9DhF9y fvs7+i538hxMsaFn3/9DoCGZSsPilofG2lTEPpuvIFbhuOWglm423nJeqzIAW6znmnZSujxRndf8wRdP RrVdxGtOxDfVjdFKh3gA vw0Qhlj3jpA27XdG6OuigUZXXY8av3cgGmWgYFsF0vK/Si/0btyGHWbI1/KpBd0gS9YXjqcX1z/T58+K lI3mYzHi1uXn2YLqNGu7 aoy/U111QIA8FH8FxQHGMjeBH++EZ8IFtKXAQEf5KR8C+JM24loDp0r+LHHHlMpcvLXX3/RbaoF1dN34 Ikak0aYbdknjkimzxYbo l/Zif1ZfYbGIErVoz75nFH/8eLJPtIMV5Fymg/1k08+UTEmlSpVuurhIPzLL7+ljRLKuREfqq6AKQ+PK 25EI181E1ip15KMAmeuG XwHeB6mLA1GH7X07Sk8rGscHRFKma2sHM0//HUly4e9KaHCOtlOuapWBwWyW6+uJxXKXnTU7dx26JCHU yJpAukbUbfRhMb8ODD6x hzFA532V2EEeIayDegMReEE4eTRz5D03URdGKbiKS42xyHaJj5RLYbhs0nERnCAZiWklN+v2bFdl5c7W nef1vpnP7RIIH3Txvarj HX+dtHnbVDlcDu8lbfRlaOAl1I5r5892k8iWv80a7K85Mk5RLRtUFzpU0l8N//8c+IMvMAXz075BTbo9 2+/PFmdxxw2boxU60wtI locLumX9XYFPtL7lFxlh//7nryjk4FMLpvj9cIrKblbXEKmnCNroDvuivgUhiNL5MiMafvifxCbgCYxW ThNrjObMsZizDspFzD96 PFo4QO6qYylxT/TfSZm0Ny717wG5I+++qik0rkSuT6reQKnieuajsPdGvfwdvIuFuWsZRuseRPmcjWr2 kBJ8XXhEUsHk92DdXMeE QeNBc/R3yYPsjLHwLCbsqPY/O9//3Do9KYvMoe8/V2OKE7zG9XsGp/NwLeiEWunxDXa9Gda16RONRtTK kWP0lEug8szrc5++KGxd ZyY8IvSQiCl2vypcKjl83qFp3Bnf38aG5oQpqrFKCaUB6HaAPdsbQt4lwFkdSawoDr0FvcNfGBrjk89D jTZT4OOIP+DH7QdL9iGK dFP4qrEyqR0uMVEydbH6XSAp5Y2u5WdUHQxU+7/+akaBWy4qN/98jyUvJXIDrV3//13RwOK9y0fwplpO cBKaqNmTRW8OTLnuTuPG Pe642SmVh8wHOZjBR5/DMMD1zdImZKZv4jyKnfq5alWc3IDZLCMsjia0RTphKJs5k196aNLgjDJN74+z bEfRRBXQgGr20wVu266z 0icWq160cdw4XUJqlSCpVWBclNfbXzQp/Wd0aSRIMKLxnSLml84MBx4ndkeQl+4MkYtFJ3M5SOcdwlaj 12e9/7777ftx/KF05hDN VCblcvIDiki2FPYbnBdxlrhdDMOTyuRgQXFR6uRKQNFk8wyWTy0+ayvOdl84sPXpz2CVr4uqPVqTuAPR axhUnP1cHE/n1zL8RVnl rgNu6mub9317fLDZj6EtFNQsr7oAmGY93bpnWbb2U86uNGlsqnAFWlzCzx9lXkRs+zDdSDR99uijGIy/ gv5T3BxVVjrSCXksAO28 jsTIKhHsP+QZ36JCdJnjdWVAORRRwu1NzIVJcUO7bDcxp//rUoKG00UbMZiImii9v501gZ+U+jiOG/wL nKAUVUduYTy7ywbff8wW UFU869ogpZejCzBkg5baZNAS+9u29RS0w8AKk96FQx8jpDJ//zzzzKsQaWP+LwA+kw5zcUDeIgl/LTDS 8kSVKT3Ve3C/nUTrKa8t 5wxefJkl/n9EYE9Zvy+/Sc6wvMKtkg9oh5hHNri5e961OxvdYWCF3jvZOf1b20eYXZlkog++ecdXou+R jhUltYGgwaCyNGxAJVm5 84vOhh2fiFR8t2bXVO5P5iBmFfONmS8TqNgQHXSwIMtex8UqrEfuT/+6e8SZgLLQ6Ps558DKUjN21asq 9xaXf/+/VUqE+u+smXL2 vzQkJzhSoAAHA+n2WsBl5/GoTlmfhRToeJmqnZZqY7XxQnVN59BVZ3IlS0hhpav59RzCXi7QGJ+QaN3h S9A44Kfg/NIB2chXSRrJ uj7clZYOo1vyUKHCRNfnCztuZcrnBdxoLSNlHCcpdJIm7qjkwjuVXqJLkCSyLQNITaskHTFqZBKU1HAd w8vcWOTS49QZ8WxfS3// EM2Yi0AZ7/Q1zAvTviuYR08fj2Fdb+CozbaZB19rHadBs9cEann2vLYeILIOVD//NCGxHfCdWxaNu0h8 iRE2nfSMzsUqoiodVHAI 62fBnnX7xe2lT932zdIg5MbDkeKqkNGC/TLL7+QxC1xHF5u6wWKgTTPCtAbPZtq7kr6c0Z3QGUI97JKj sHV/odXBXaV4IkkSMsW4 znfygKbuXyhD1zta0gHfd+mJlBxt8h68u722lTO7LrYZ27OGrrkMDIh4EKMPjrDMyw8JqpZbzH9dIGL+ 8ALVobZNKTN1O11GChgn 2iMemXFZM+7eraFgwT6H6OEz3+uO9TdlBKUNbcts0Uq6xB++uGxqng5CanTqKO0fLnujOYeuyExIVyWc mf8KkIXNXlTiXpiAq4PD LZNN8ZZhJznMjLJUkSn6wV06Ah6Pd1q7mGhYzHmSYwx7fuYXcAfyyyMkJ+Qu7Rvea4++knmc/ToURVjg jzQw5FCkb5ys+6KcQYsu Rs7MQ69TIBdEpxxK3Nb1qwBS/cuU74pjIbkYfQzoCJkeSUKxwHeGFV71rTktIZvStO8RTw02cMxrkNZ3 GpoC3f771HsMkLT5G/v7 KwjPMn3jlTe8FCFNIJxoCdObgUPLcfpTK87KTCoOA/J4glQqlHOmw+THxO9yCwerMtbtbBQRPIbmNFgf lGslKMgCto64ArWyTo32 0qmUOa3Uc1CkCsgBiofWNoHzWlaWl6goovtWmlsVrMkmiIgqmPm2KrhiGwnl0Pha9TLIvuBQacWC44Gw ErK4sPmNdCBsg2HqAgeR 5Mu3hjx7gMjCMl5pvGzvokCNP1QU4+yH/hYwVcIbQmjz6J8EEieuzw2695BF6iPPcMOgrz+gJ8CF0z7R l66eZwj5xt1FjKHrIaUn Atkinson/J2C+RhMUWQw2cKspQdc7my9eQ3v7mwcUmNTIypqo3vSv2BHYGQbuvJJ1YOBWeMK9SEPe8S3GYsZOU EmPE90fSFSPMHLgNXcMF zajbgYxoWnuFzOJygWY2mYj8KfyfNnRrak0X9VFZZZV3neo+H1oxAdtootBE1K2LOIwURJ5B6DPxdBEP MCdyfhHr3hV9oUSnwSxe EfMmefYKsiuXhPdcezpKTWxJhbbntKipeATmIbFVVuT3cPq/X3BSPfVOjrunNIGcag9Lfq17r6rq0eIA 1Nu7X+/eK8Jek9dUOuls HKDY1teRQGXFQBg0m72e+5F3hGjFGaW5ZxsMQgOZ7PqXNxGKNyTX5Zk8OIrWSyw4hFVfcYegb6MRi3Be GlQcaExgXtRpUoVWSmhG t7SbNsrH0/njEyuKKD9txDGsKVRoYf0MzCVjHHfM2nd2x5B6huAqIcX6RxfDzhGZ/CBEBYalaygMJESz 7Jf2gho6XjH9ZmGiIMDS gCFq1834QhiozVZCXMHPjKvhIFvLNPhURS3XptwkZzlzpOxcxkIWIgTFHJXlYL7Xt5+nbj4yHn9X1p8a gs28jq1imDD0VdahNBMS ++ftzQRACC59aZoJMn0rKzpd4AATxq37l/Wmazyt91KruV08HuB40ShEjgR3M8wf3AVA5SOpkVLoeyX1 CU0jFG95PVIAvjFiiuUE 9rPLDlYyqgH30pzclmmC/uuMJjOId5+3eYgi2F0v6Sa+eXlLsoxyWBaUviyTLQqfpdjQJ975adQGGGtC Y8nkDoH4+mY7Dhq0gvAW 8Q7G/c28zHaSivc8dZ1fLiq0OaAWED9YDLUxN3p0QT7AseT33Y/2U1b0+Z9otLFxahOrBFJmhxb2BD9/ 9hseQwh7GzTf3C9wuJsQ eJJo3eMRBy6QsXkMRaEl3WK1daAEwo1QIxWpjdgkFv8FsO7jZ84TaO3TaY7SSdJ17eBS9tyKHNtg4U6q nRheZfagp4/8JdWtd5VW 6UeNJrpZ3xVZPxALVhF4okNbVLk4Va2RXH/3VqqidxUhqBGYVzEa35+im75teq29p7xMTxq3sAVbfCho loDidafSpFducHBlhtCE A21hG5GCW2AOPFOQG4GcKUZ5OXxNuNwBS/M+6ScELBpD3h3tAgORu8WmAvWmyqvkZ/h7yOwvbCYufwIP B9nPG8bXFjDgZUhQF9Be huutQDR1+qTZTAeHrqgqJwHOM9XCdqxN9uQRh0TW5XRRIgfqVmrEkzdrpuo4f/JksYdBHmwn7898ccQG fFm4yzFqMQWK6BTnj/+K I/3Fk/mQmC/j3ul6xwvgoJKT9XDLc96P9wNH4V/sfxsujaSb4wim8WpwULDfbvT09UWC8ITaKTi2rjXo JbQ6bjIrbOgbzgz5ldHA MvGAebzyJawKgWJ4g+jm8S+yyS0ir98l47c7JIaNmzrI5Kvt4wpTrTFaiX1XrD1dSXbI9GPDSTvD9lJe UMHp/2xooE4cK3x+1t4+ +23U/vs4hB8M/PJFxo4wjroQCxOrUW82yJVIEuY6v6t87WwPupEDJIWAlUbR8xImi3QxibZ3dFwAKbPa rVt9VJXVCQPmylOmzCij n79+neAYGlMqc6ZOEeXFl3NT99R2761x1zvKVxEtVykc/eMKTAn3R87N2Wowqbo9zhsn6uVSR3vDKaRJ WXYhZM82ueti0OZ0oorI PZTf2ZyS9gnxNcM2imXq2R9eiKhzEJGyQmfEpGrNMk8iwYLmBqXWlreoHw6tpG81ByEkkJnmpE73hSkd O4c3R/yJAQPoSrebze64 1scKW990bgH515bxJ9BgWNWvUFU1GSK28R3davSh0RUuHDj+sm2krGVP/isP9mB7cI2nw6s2KKidTcEg YRngN/iCoz/8D8L9YJ/O 4HmEn8n7X6uupucLTaBhmxbHmGGeeogKyAna/cB9Q+6LZEG6/QqSggW3LzsF65bALDw3rIWMOBaoYPRL EIJi7/0s1ehttfnnlCsM cw/P9G4JyD4FZi8fzqlrFhH0LzyOD1PnNfuKiXmM4G6eG56a0DgpS04OmCvPNvieAW/FND8+/apo790Z 0/EYMATx5Owlz3nEEHOu JqMLiBM+vkngIUHWn+wsGL+OjM6Pcb3FTzxviEJLSJZNbi4bUdzXyyCUzk7vdEJo+UmcXtRSc8g51jBw xflPJuTCIbh3SEYonEIa idYgDAMwzA+oPOIFRmL3WaESHvFHUiHvZEpXFUroLCp/4Nl9TAXD251TTHUARsIAvWiJxVR></span> </div><div>
</div><div style=text-align:center>
< /div><div><strong>Patient Name</strong>: <span class=clinicalNoteMacroWysiwyg id=[id number] macroname=PatientName spantype="macro title=#PatientName>ALYSSA PULIDO</span>
<strong>Date of :</strong> <span class=clinicalNoteMacroWysiwyg id=[id number] macroname=PatientDateOfBirth spantype=macro title=#Pa tientDateOfBirth>1950</span>
<strong>MRN:</strong> <span class=clinicalNoteMacroWysiwyg id=[id number] macroname=P atientMRN spantype=macro title=#PatientMRN>[id number]</span>< br><strong>Attending Physician:</strong> <span class=clinicalNoteMacroWysiwyg id=[id number] macroname=AttendingPhysician spantype="macro title=#AttendingPhysician>Sarah Coto (Gynecological/Onco logy)</span>
<strong>Date of Service:</strong> <span class=clini calNoteMacroWysiwyg id=[id number] macroname=EffectiveDate spantype=macro title=#EffectiveDate>05/10/2025</span>
<strong>Referred by:</strong> Dr. Coto

<div style="text- align:center><strong>PALLIATIVE CARE INITIAL VISIT</strong><b r>

</div><span class=clinicalNoteSectionVisible id= [id number] internalbreaksection=false originalname=Chief Comp laint recognizeconcepts=true spantype=section suppressempty=false>Chief Complaint (Palliative Care)</span>
Establish Care

<span class=clinicalNoteSectionVisible id=[id number] internal audit director albreaksection=false originalname=Oncology Diagnosis recognizeconcepts=&quot ;true spantype=section suppressempty=false>Oncology Diagnosis</s nava>
Stage IV SCC of the cervix

<span class=clinicalNoteSect ionVisible id=[id number] internalbreaksection=false orig inalname=HPI recognizeconcepts=true spantype=section suppressemp ty=false>History of Present Illness (Palliative Care)</span>
This visit was provided via telemedicine with the use of real-time audio and video via [employer]. Alyssa has provided written consent to conduct this visit via telemedicine. The patient participated in this visit, noted that her home health RN was in the room however he/she did not participate in the visit. The patient is located in their home and I, Dr. Carol Branham am loc ed in [facility].

<span style=font-size:11.0pt><span style=line-height:107%><span style=font-family:Calibri",sans- serif><span style=color:black>History today was provided by chart review and patient report. Cancer diagnosis began with development of acute renal failure. Admitted to [place] with this December 2024. Found to have cervical mass and bilateral hydronephrosis. Biopsy confirmed SCC, PET showed disease extension into uterus, bladder wall. Completed concurrent chemoradiation with immunotherapy, followed by brachytherapy. Admitted with complicated UTI earlier this month. Treatments have been through her local Oncology team and [facility]. Anticipates a follow up PET in June. [...] internalbreaksection="false originalname=Medications recognizeconcepts=true spantype="section suppressempty=false>Current Medications</span>
<span class=clinicalNotGrand [facility] HospitalcroWysiwyg id=[id number] macroname=PatientMedications parameters=ListType:Bulleted spantype=macro title=&q uot;#PatientMedications(ListType:Bulleted)> </span>
Per outside Oncology note,
Carvedilol
Loperamide
Miralax&l t;br>Compazine
Trazodone

<span class=clinicalNoteSectionVisible id=[id number] internalbreaksection=false originalna me=Allergies recognizeconcepts=true spantype=section suppressemp ty=false>Allergies</span>
<span class=clinicalNotMagruder HospitaloWysiwyg id=[id number] macroname=Allergies parameters=ValueIfNull:NKA spantype=macro title=#Allergies(ValueIfNull:NKA)>Cipro&l t;/span>

<span class=clinicalNoteSectionVisible id=annabellaio [id number] internalbreaksection=false originalname=Review of Syste ms recognizeconcepts=true spantype=section suppressempty=false&q uot;>Review of Systems (Palliative Care)</span>
<span class=clinicalNoteS ectionVisible id=[id number] internalbreaksection=false or iginalname=Palliative Care - Pain recognizeconcepts=true spantype=section suppressempty=false>Pain</span>
<span class=clinicalNotGrand [facility] HospitalcroWysiwyg id=[id number] macroname=PatientPainScale" parameters=LookBackDays:All spantype=macro title=#PatientPainScale(L ookBackDays:All)>3</span>
<span style=font-size:11.0pt><span style=font-family:Calibri,sans-serif>The only pain she currently gets is at her nephrostomy tubes. She will take Tylenol at times for this, 0b091tk or 8k230uy. Feels that currently it is not severe [...] type=section suppressempty=false>Physical Exam (Palliative Care)</span >
<div style=bruk-daozw-vamx:none>General Appearance: Patient is awake, alert and oriented, in no acute distress. Patient is dressed and well-groomed,well-nourished with no evidence of self-neglect.
HEENT: Sclerae anicteric.
Respiratory: Normal work of breathing with conversational speech.
Neuro: Alert and oriented, no facial asymmetry.
Psych: The patient is alert, attentive, and oriented. Speech is clear and fluent with good comprehension. Insight and judgment appropriate to situation.
</div><div style=kyvt-meeyb-masd:none><span style=font-size:11pt><span style=font-family:Calibri,sans-serif&qu ot;>
Comments on Pertinent Labs/Tests: [...] the guidance of her local Oncologist and [facility]. Please see below.

<span class=clinicalNoteSectionVisible" id=[id number] internalbreaksection=false [...] spantype=macro title=#PatientFirstName>ALYSSA</span>

<span class=clinicalNoteMacroWysiwyg id=[id number] macroname=MyName spantype=macro title=#HniaName>Carol Branham MD</span>
<span class=clinicalNoteMacroWysiwyg id=[id number] macroname=MyRole spantype=macro title="#MyRole>Physician</span>
<span class=clinicalNoteMacroWysiwyg" id=[id number] macroname=LocationPhoneNumber spantype=macro title=#LocationPhoneNumber>[phone]</span>
<span cl ass=clinicalNoteMacroWysiwyg id=[id number] macroname=Locat ionFaxNumber spantype=macro title=#LocationFaxNumber>[phone]&l t;/span>

cc:<span class=clinicalNoteMacroWysiwyg id=macro [id number] macroname=NoteRecipients spantype=macro title= #NoteRecipients>Axel Palomo MD</span>

</div>

<div><span class=eSignSignature>Electronically signed by Carol Branham MD 05/14/2025 09:56 CDT</span></div></body></html>
--- OUTSIDE RECORDS SUMMARY | 2025-07-17 13:51 | XMS_ITS ---
Author Name Interface, [id number] lity Address [address] [address] [facility] Address [address] [address] Support Name Relationship Address Phone Jesse Wei [...] style=text-align:center>

<span class=clinicalNoteMacroWysiwyg id=[id number]" macroname=PracticeLetterhead spantype=macro title=#PracticeLetterhead><img src=data:image/png;base64,mAUWIg7ZXabIIGCZGYdRVcGWWJCQNDHrOEHCYPN3H3wTT PPDBACGG1GYgr9i9RXRJMUrPJ9IRUKkvkm1VCNZTRNBpZnHtiZYRkOABN7JXEDsMglZUCgUHXCYOLuc2 U6AaOC8ShtHKpzdprL1E nWiTiQFAPrfNlpUKyjECXKLBASkJrOMJGlvBrzPiUBgPTKU5HaiFj1OUaytJ+u8/Jbe6xsv7v30P72Ej pvtmyceaNvTVnKC2qhRo QSDHEwSVngIseAzK6YqWGB8sO/zZgqZBXlQrECvHOZgoOHVAJUaZNBVDUGJulUDl7NDkjIUz/gECxCGY JpAG9cBc4HjzFa3Kr9zq LdKcGuvjjLGoYKvl88XNqegHJNPg4cgRTZTfSsinAIjHn2zB2ePkVypQB9qvVJNofz03xvpyjYW4jsRE Pg6c7DXs5vypWf95aANM uFuGyTh9X6lSddlSmVULEh7NVmU3ghntZt2dFspm5bEMxPEOTvXmGhDhykWKBaKzbW8iB3hzs69dIKuS /UnXLjxo8KVy9dwt4Vn0 6oQw1x/sABhrlu+/unfuw1407T/eRVJsZjoSwtKk1dNPaHzqitzVPJYFRQU+AdQYHAQBQQQrV7+EU0e+ eXsSExL19TOcncbCq5Qr 72OGjF4Xyxkr3+gTWBA4a+xRx8a//0mOesFMcNYRcZSf6+z3G2FBvuVh00s+0FbBFkJtpLUvN11bQage Tx++/btVL9+felnmOsJF iDMdUdGRgYFBQVJ/iXOeGdFhgsEQwhOPrSLZReWY2M7Hs0mk3/AS2ZFyo3uVn+LobxwbFVV7ajZVJlxX TYuC7c1pvnqqaXtVL8w6 Wzdn12yM8TFyf3M345uNvLY6QERLYgxTFRervDuPt0kgFc6gG67FVNrQrsMVP+7qf47zTrNuCrzxZ8ph IEw/wpWrFhB8+fPp/Xr1 5PrDwYWsNwDSf01iUBisvhnzLIM04FkHUqL24B/ziqBcpm1HgYHCNBPqXMRtW3xFqInBUTIpODbHy7qo 75hiMmdMgCqt9DbKRR62 KOaoNOBJ1qdqa8NIcNEmsKshfKNkcTAFfGj7Lc40rs5KYkVRmlLnBmdtVhPV2j9/FUtSJfe0aIvCp+6s 24nydmlZyAiyPGxUkB0L qOzPgRuViIq45wDtMZHSxJRu9rtoL2LooX2Xl2sn4u+vbl8VVYRXOOKoYJMKVhxWmGr12//vhQmDFNQ4 T2inuLBmKEzWKHWB4JbD 7iVsE253ibkfrAnSEz67wilMqX9T08aTc8u3f0xrc+crStNU5jsnihXe554Nu/KqhbuKn9moVPPxGzB5 xSAIE1RJPD6HLa4Ziu6N pIioqLpu4+H5L95FoZ1HX+gD2e+OgVGd5jFOA6UBx1D62B3yW0bC6P4o++W1+sRESuTRd66NY9usZGub yhYiDDEWCQFbqNkvxt3c NiVBao2woF1dIrUZFAU1r5+z0Bv15xIJ3VqHcrUl9029z/IMNadTzO+LOUVhhEn023LEmKTf56JUvVVO tnSt2/h7ebvPa3DuVGCw 9IlpRtuFExptuXocu83wy/SCWbMvAWNovQBazTdnT1pPaJ6AFa30YHz2nRvH9ISQvaLJsZMSneru36/M NAY/uW1Y5gWPVbGSxxAF +cafn7+sp0WKkRAnlWSWRQ5MqJtzVK7r41xt2DpEbKYQ445G5HazWMDGZUpfBP8tLHXRCix0ZkRzdZBj 0ZbYQ1HYf39EyxXhqRLR 6W/tt91zHqpTrx00RfntNWC5yoLa5z/gVkh3GUXBznKd5OQ9sdKJ8lGxe0srWhrPIYZr9BXKqGqaRqk5 vnghqgH1Ei6niIlik82E j7dJSWPVFq6U/e5dX91vVTUYLdJpZllGyvFZ0k++aaj4vultoVpT6SakUzLJHyITYQfOWXesAWHudXYi QLWTZgIiMUPf//9dxXrG gy2//iii1Y7V5MBfajzIJu4fycI2nBOyY3vlwpYQ4s2sdFPOCp+/76DdJdKVt2ctBgORWkWleG19FBEB gC2gCqou13+pM2SQ4FVi qFkVPhUNw7DHO7wlyidbcd4nNbSqbIZyYiiezyhda6NIE+Ex+QXiX7/g+zD8JYdIGaViIwJ2LAPB5saB mhzLbtMuyedSs5k8hivp Xx23GKAw9/Z6DRfD4vFWGaWchSux+sO6VJM0PmUieXD7BeCoECs88cClFztU886cTq2c57iFlUnHDNgs E9eYzKJy1RVcENW7GuxG eUqVdQexwwdOlRuddeZO/FZcmGynt3AnhL8MvIxNFNUs8+wJPQDihvOgKcH9RttnrGTkntsEgRJmVN5/ PhxGd+pXtEih6igUsQy7 mibrw9SxFtAuNZQLjmtas+ZQ83yM7LCLYEdUidugJssaejJkW2UUVlwYpKCrgguJROlNRJaVAcqrxb0r NG/c71SfsiVCb9wsMz+c gJ2mJkOEgHoDTA636nIHdUAUOt8QNsJirLBz+0tbkrRnzGQyd9DcIgalQ/866KY8xj1aWwVMNamKoZZO TV1AXaDYH3JFEgENh3JS zLXOhr7p+ozH7Km524aY9414xgHY9R9k+0b2h5Fq4zcQiqv/jjTyBxCUEyI1At+4InMAi50jaBZYwdE4 wERGTpyqWkZlJCYRCdPn gm6Qddqy2sEDUTt2qXy2aTfbTR24vhtK6b8lggHVQVgjTWD5d5QUwm7z84GTZilXW7DYtCLyla441sIw lIIW4CeI5zD5ADmlmVkG WriwAA/ChCl+MDhwzTsiScoICCAbqhRnSa8+YOc53vOozbtt2/SyEYPDHSvxW9ksXmg2CzQOaE7vChsW 8DiCCnRu6MCDvvDQuXge OGwtTr/oAAKDQ+h8mZYNNfViQk7L5YcIopRlEZJE4eylWou/wWbhKuE1c4+iZUxIcp68igm98e9vEprf CWtL79nk1hSwTrNsNdCS Dj+kfwlBrPxIbpAIbJYMAcIDQZqCDWXJUBo2Pp3y8yueJen2ytp3wWe7u1YLJbZzSoX6uh0U8IMDNU1H fw9m1B6bEebseg39uONr nJCXdIoM0oFmriNEgGnubf5rrH2NNam0MuB09jvFW6/c5fRf+FHUwokYVzpvnlgZ3eaPwgPTYQ8qZy8d mGY/H0LSGQQuCu0NRfcc qJlH+eokDvffoex/gnwVWaHiYLcP8CttuXxsIfRgePdr6n5H9MYWFjVQS6NfowXPIujUdJwJ0+BzLtpo +wzHSNKiPxmXrth0h10q su99172ql1nbt+MkqVKSz/FZXN3CaZUiVFu8WRRifxC0vtuJpPDYN2P0XX/taqiRrIfEOCwu2SWx6bTH KV4bEQI20tLS0vbgtJ4v nMLbVy/gZIyDWm+jfrIFGLRiZGD70VrnIR6imXaRySgyLSozjP4+ZIGDyXWw8PkvPMPj/wpUByTkJZJE 4iIgziUH0gDLTePgBx57 +9XIYbJ//HTGTYjvBsEmTKEssH7dRlECyqVXCd3jzZuoJ/ShKFgyQkXi7wTMvl8NJZ1uQ3jF2mCcPXs6 TQNj3ACG+YTBTq3pPJo0 nJeF0IXg/9294t0b9n2feOIhM1PHJnOX2SZ+w+Lc9J3AYFK7DQfw76DN50wITKuFED5+w+T8OVKDVpwN IhMEMFBqYqYslml2weZB XFjVbpWecJsTKQgwCe0n24rDYg2ZCakiHCYeoXIATxyiqxFpC7rOiMbPZIfh9d4QQ7Q8LwI9pL1bOw5v DHy8BgbiIj+nurUrUcLl cDOMznn5U/xetI1Kf6P0dzordb1IYlIKtZfJMQu8PYOJ9dXcB/SHQfgLlRJssYS6Nx3b0sxo0Pv1R4wx mVYNrVWD9vD7+QWVkxYX 1m3JDkBomw/AbBU66tpmdwKp2fW+JkCW2AfDJMDLhV/COd55WYzgMHKdkX4Pg11BH8KUI595ajUR0cY2 WKbMS9gjJgxe52XpuYr+ cTT8OPOCRyI2zQRD4hu/EaRW3UArtHuHa+eTQ89+WV3U35zPNpkeXe99Ozjgw15DQWFHwFDph4NTKoAc kHSTclBqJOlUyvNGt4Nh 4WGhdGvew/Tfo9zYP617LKaENnpMVhqdvXOaSgiWSi4VURfYl7Pi2bTZdco+2do9yxA5C19T5IsQdEgH 2NisLzswxUS2JuD1+bNk 36GyY/fHGqQF5IStweueAR40l/6ZbrvqdEUd+4jGWwGyVeqQAkVssHn3BNqbKk/lk4nZX/sOZD7eN0qC 2i4ExEO4s1gt0IOJpRmZ EooN1PaZJWuWCYjlXunRe3bMFqf5BedZyFZGQlY91FLqkDgbx73l894i0b/jkpR1PYNJqJ0NpLXM2scT fzMt3mRhNqKesI3cQPtM 5k8BSoCAp+iv7VRs/FNNHXtFrp0+hz6fGT/RMUgORyqbYMxJ61XToe8QKPILKVGsw8+gQEUEhIgKuYwU WPgWRdoTP1QFrZsPlqVQ v43lnR/ag3b7NUVEDeNwp1T3NA2/JKREv7IwNfUYUX9HEEyD60M3VtbkZzUQyGy+z8p/dXPbqO3JN7/K qTzFL9h44rH/w5HffGle uRHuAuLyXcMHDhQ+LoIo6xVBe35OFyPWWEvSNtzqrbwp7Ibc+X+xwBvmcrEiQFIZAJ1tCq19xkWQpnEA 3kh74PfWjQp6/kPg+U4d 0S5fXoO+LhLdM/ev7PocXfCl7EEUx2/1DC5r+0UxhjuCXWFD3pjer9aiPLT4vsN2N+lyrM29PPGyqJAR JOvgEns/Qqpxy5Cw2mbc qeQUnArnI9TCqymPAjXkSoRCi0oWxq/XEJHzsRRTOFgeuPtObR+rSz3V1iseHqgjHKgYfaSLhpntySC0 URNwpEjTyBmqtQX1929T f1TkNpuQnRr5P8H6EJNhgknPVoggAfuhWw8IFvqN8sndUCj9EmWmaLHizdLFHSPF6jb1HBBvrWILTZnP VHxnaASlhm9GYElARPmU AgrLMWo6eSpJOrRpTfVUlSZwfcKGadcvxfiDpS9Ny6jJTmrLm9CKc+E7gIfVSD8P597D2SC0xxmmb1Yn IM8fKh4RZ/meSe3NZLuQ JayOWaCqSRvgTB1kLqCllqJX9cyCsPJtAG/51Xs3hkuZLk4wkwZn3RWlOYdemWlzdzXnmDfneQkfCQ1q Gne8t4+LXV6VT19qTG9y 0YmKhWMRiFbFnneXoLcCpx9Nmb2/g8K5t1PGJ6tLIaSLccV9FmzEPA+JtUZtxlpWN3i4ss/K3uPvgoCM XxfsgETPvxEddi46imtE x/V2U5TtTP5UzmcRCKUyXpkJFV1BIaAzAwRprfpiX8ACcFASqzmdGp51VZ+ymlbhYlXVXVTS4SQCw1GH Rj/hLNNkNtOGWWZkIi26 rfeC3vTsxtQNn1tdEvU0SWjNWZbwexwVHCBLKrWg4ZYZ3g3fMz5TzMrZKKUnAW3k+D+zgVyRxNH6VuGy PjNiH6qOYqEHxMA9bGFb lS/lIoN3T7+fihFBg9cvFLt5T13AKGuF7OXtQq4i+vn70/h4b1YhKzstMWPrkvQgtN7mSmSCFcG09XIg b3kiVfUVyTpS4C/rATi4 y3DAyFtJ12Gb3Bl90sEoapgmzvG/D871Irp/LshL66s76QvaVbD8Y2XAntvGiBGInPWVyFSDVmGZ3u1b hPQGCpEcbZLoYTfYO1Ls zZdpp8/KVGeKm7BOQJRHl/H6H6FxHE9czXd0JSr6onNhoORBOXeu9yvu9T1DcrzH7W/5g/bQ1Lf6Plrk 3cc3m5hFQ4lOaWv5BJyb Ul5GGDFs39Kgmc1LG/MTpqsyrlSArvRTW4h0I6fXJYGsY28fJAnQY7jxc6KwRbE8xCBmhTq6MMD/AELE CZfMWjQIOUj+c9WUiVUF kBiPUfr4ST9Iqbuflb1AC7c2COBRAePhk4MhkEjWt8oPhofYQydCUvk2xo5aZ9j+Dc6/OPmyae2yJzVR 703k+aoL3jc1NDMRu4ls +822OwtHRtO4DKaIpvIpZEFGWzhnanoEGQ9hrLN4KJ+avuxN7BfI4qgAsQmQQ++PB0/lwyRvSiS08ePC +FPI7KYvMk3HHBhlHHLI dX3hfpYESyX3FOQO3PIAqx3OLWvwogUxaDbA1QxTX1fEEplp8UmbbH+QuUWSmICDRClQJ6ZxpvqzigBK tKOv+RJ0RXxCYlBjPVyI hqUJvnuz5VFcKqlYcCYArXnGYKPCWJc0QyDHRS2RoGpESbLqa/HTZfS6oSObGqcNZcfEmJeczsTieUMT jAe45YRPiRB3TB0xqAHA Jp7xk+v5MUHCr1XIwU1mFJf/krGoxWfEH+JUCWjWwjjJ3+vgwYkrkEKNpMhi7+kLCFEUoVASElOobtGm 8Lob37lpwiUhpEWzKXZ/ zpBtYA6l6+MxqBvY04icqoeQ1YKcAo3eOjMttTd0+Esdras+xvuvUjYqbIVjMXjaA4R8JsYea+xQoqJARJ7 au2QqiYonBdavPtUU+6h do/EiByeodlcfn1GCzGtmXuou60UB3vAcX3u4DKPdb5OuhNcDYBEtDggZGNeK8G+8g/VEw9zgeIhxZhR haWbjw6UJ0Kis/tp29eG y+FHKt2XRBn5DT9KDL/rIBWlXgi8kRYMeEg/0JHIMj9V+zUvWMTKBieiRcAWrfnHyivvDVA6Zl+MrJQ+ ApwfuG65rv6o3Nrqvcoo tgEL5VusuIiDH+m2IaFVyxcnpV55PMF2gi+/hH3zK4ogU94cSKBf0jPS8fC9xuRGQAxQWSwRL4m12iqp qTH1u5UCQHm1CizHrTlM sIz63p2w6RhYiMtQOJNdCx+5Co5xIzSWPdsdz7fXyZeFZISUOF/zHtL7r+syuMVnubcp2jGTnHzj25nu 8megBY3Ik7kHUoEQX3C9 S7+KcIM5dn9x71qbDS0ogdw1MkcFPIWysu2djPvwEQ55TiTpVEPVud2kpeE+ElNTbGlmMhjCFpVG2wMN IVXoSw0g6WBC/+U+xkmP 0UBhBbCJX5+LYg8ezVe3hXEBYxZjdt00pyuLQrLl5ZYdyeTgOgjlCEektO2ZAOFOcyRnhsVCF6slp+MAORI zCthXGSSzwyf3gvLcWQ7 5J678tRF1chVuJNthPnwjRX4VthKWXAyTQBLF9JjZhRpMqS87EM548HG6mOoxNpP3xZoXw7raJVe+RPW IAw+VZgGJd684/T5Mnmg JXcw3pHZsj/bxBlBgVRpn+DpLvWCpJPtVNOGlg3lmi25kwvNKyr8ft5hmZsatGViOOOHXthyOrrktvGP SfeoaG84PGGWCUjCYrkH rVAoFxBMhQB0STaj0VGmIHEvSaGK7SHCPWZ9FurQ9EoxvJe7Ob8l4QuYyBbNDPMwZn+wFSYEJuAjU47h uOhWeA384JR0bcGT9Syr KzJFQEKoNSLiKrmJuuA4pQFgVCYwwbrJixg3olU33eKUXOiF0Mo7ZQ5s4X3rbEnW8eaNzplC/mMholzg GWNCsv8Ao6SZRVPWzUmu aIYLNt8iBPb1l2tEioiCkI0yQwt81SfDDo3ydr5XYd+KNllwndd0KhDRt+DIqqFSXhYGCWnpVOoqIBT5 Ru2ePn26IgB/zOCStZrQ eekrCJIhlCWhuxS1KDrnHjhgv2SmF9+4LbS39cPixCQp8QtLhgY7Jj0Jz1gGXRmjD3zA7POUtab4MCUp rbDzW1j6GwHbsNVltVNg PwLYNNZvM6jnU8+eiV9dxmHjw19BxFIW94klu7tnicUONkhKovsoEmOxjMFhghHQ5dmusEufSI1veY0W 2G4yloEQ1fdMr//mlb07 cwiVlKmnV6JhFixj5YN0xODKh3a4K9bWawhaqQWaY9/uPhcsU3pxYI9MFHmGFW9A4NB/j5BQ495uFHJH rGf0ZG3v6kN45RzTCXR3 OaZUswVoxUuUDQxF3VBA5nj4ntHyO2DHshjic6o2WysIbXsCYvktp03VREHr4AtoN2LUTv7v1OAmZnj2 Ny5k+rUqUMVb+tGN09+T 7abBNIL3l+xk8ddyM/OfA2kyy7CtocRREOlMOQgLmjuql/YaHwv0fveQp3EZhmomgcPNcMx4ECv/OnLZ USULtC0nt/Hr6cZVgGy8 Xlq6RldaG2wR98WUjw6bE7/9Z8uoRUOpPuSqIDkW+pY7cKv9Z7ehcsYB5vnjlsEtMaW/pNV4eiCP+jkh a7o8084ZL61GI2RMYoaR iBMgeHTTz+dianne+++dsha1ErdkpS9WZmL4sioSQtNc3VeVF6MQj8jnr42ecFJl10JhVBuej5CJzCtaepTS U3EMwvofhlD51txY7gaR cERboTrMH5YbOOT5K4dP+K1w+LTcTOfHq890+bK8dd5mIjifF6tg4dNjy1uApJ0GDUtyNf2prFazcCVC g6IGaNWZA1glllAMfLIK HYmEI88sKMcO1UHWw4rJJ49nayfiRPJFtIxaOQmPvf98y0ulroM1S+YbhMgqIVRjA1/fyFMgikwJFzW9 TV5f4Fz/xnVFj1Wy9gwt zbpHvuSOgYvUvLe8DxrAYNUM2GRKLCBXG6LCw+FaxLpp0ZZx7VXLPtu5JH989Z55EYH59w6mx+8CBnpy WQIDanZ/N1bzpcPAaDEm GujIGsGoAKybatMy5Fdm1awiTpevZhuzVBQfuWu/x5xU4Sga3iEKCXJkUlFQb7+fTy3xMsi8AHrZx+7Y J5NFozVF92MqcepXlMel FC3mIYiZk6/kb0dm2uJLf3F6pP3uGE2d8f3qB+fbFfKVDjSJzpBpgWbR1QHekRFtdWPu9dqfFtUCPNkG bcCc6GFGQaW6TAYDqLXZ n+5XeR/TikzmA+Px88aReYCzSO07h/lIUW7U7VszKUo/DlHTHBMQlGkVhqloLwt309K5sWvHZPsK0QkP CXNUWbIX8LAqosOEMnVl VNK1CRAyzSsPIpju50DHgFy7f7Rn7VcADcosb4RRLUFtmY2C4S0DCeccysmLxOVFfQgAcNgl5Zchn4+J eJS/GjqRJVIUPI/I6nu6 y6N9t9CATqgEJk5141ykBzJNdWfUdsUEOCww0FFIvhgLvLLnmfXPMU0blT8w5lezhq+gZQgtCVQsmRJu WWYggBrIEyBAUubVKtWT beypscVasCQShr6hjfOxF0GSY74bOkPFRrUFU0puIBvt8yC+HnHri0iSQDWYYRqYaFNYOX4mRjW2Ppub dZ+K/mSrNdCnUa4Wvk+R wT8qOx/U2SAy6xIJxMA8mFdDo+xxRcQ/pFy5CAiSvw6m3zEpw45URK3UyUwKViwGdbtwDqbepwh3KLn2 K/95uZKMT17HC9asyQVY RYgTIFCm/RGdBtAsU+/HIahOzZtSzB1f5Per/yneal3gk81dXkYdglVqc0uhjUfyRLc6f+JWaWL/0PCK Csjjc4/NYDS//ng7Dylo Ac33ppssmGoxLCDieN+kDj+Mh8cZ+I9xIBXy+/7E7nHaW6CvU15ivJD2zDPYe/4rRrh8k4j/6gYSnzpC UpbvVLG8+sSWSA2V7qhG NBfwO1SxBVfKpViV0yC7S0PnBUKgAfEgPNMz2N+msJtKqvMv8RM1R511LDAjw6OqODLVi6qCROaCLv1N lymqIMNHYpIGurDUe22G 9A3q4i5uwFrS3MG9uXlEOdsXe8B4bDS3STMY1K4lSDQasCNZcmSvqzy4oNv85cQKfKDeY8yj7BgoRPsd X4Rn+gfQPGnjtuER/Pmz oIOBYxEMOZFGcB4tiSFscxoqL81VRYBOsKrcesw1nPgv4WTfIWvYnkYkPdeIxjRkUtvFSRINMUCAc1L1 PiF7tMUKtC2RleVCGh/S unSBNiqCWRR+bugLSuC4wmzxMD/RNonOYfVbE7XUOOQzNh6RFeaiJ8fiBbQcz9sYHrMPjDZFUrp6VoOp OTHoUgYMNkTL1FBpL+aN Cm5OPUycOHBIPH68hUUToNrBI0SCuR4NUJnmVfUXZFA0YylnM7cnOqnrcpiqA8laOVqCfCQg7iXQLf6Z ttErRE116hhYcA95jTdj 1ExZMRfIOOVYUTdmxKt/ZSoRBmimUIzmLmCqFgpom+ZK97qeHwkkPBeSg+qOAnJf3tR+p05lCd4itVTD t9H0LWD8pOY1ITCk62Dw BJkQcjeVdjZoGRq6SgDU9SyBi2bt6SRUjiTdoY4Da38RZRVxgrakLmxjcaZMIMdJbTTJNQDE+qFHJswi 5XtzREqud4qJgJlhV4VJ G+uIL/DDXUorMoX3s5PR19k+v4nIPfW9FMvYwZ/W+IIsY778PxJq31iYPp1v8DTb4WltwGHW9ZI8ccVA 4t2OtAwEv/Ar9JRu2jWV ekNVIX5WOFxpbLMDZHLyT5XfvTCUwNjDWsOQNnevBrpQTVHBZuUHXv9sbGBEaktFtrfLPUHfyR7OXSh1 JSRtUFMismVrwTMaH6bO /YtMrb/BZWPb1E1BmCNUI8XSq0Kzd9gTvB5vdkKnjqK3EzsM8tUHEpA31YqnTmkVqIVw+a+kDCiO/qQX +8VJHq6jCeGmKDhDuMtQ SQ71rNR1MnqGhEU9+wpMj5+l2t4WTfwOhl82EW/vj9QYmpBIlaYupAAi5hDzz+4UYi3AaxQZCU2S0OWM ksJKiSEQTLReVGh/y6Ex kf9mnwd6D1O4S6nmjAy7VFbqySlmIwdB3qKOPW4wa0FzTcpECh3zmyWC2ZTFDVIm0UcfI5MEn1coIY2p i6ztNYXbS/nL0R/HbflD MxAV10kza6Rezs1NMXlGRJAQRv7fzlxeaLwtpHeu4iVqKODHaXxXxDQn8CBGMjq5ZwO1QiBEQ1pGEuqK Dpg/4qI+MAgolChfYRFE g32BPSlMRZShTMQp2AwNXz+XAwrz65sdpWLQhbTxI3EsJT6+Omnn+jPP/+NUrtdxORKqYF5egAeav28R UdEDSbPhxNkhimBx8PPR sHQRP838pH2ItBhA+uREPgLcliH4nnRLWZgwjd2TditaEW+JiiVstmbCJddsSJFFZh1rjavcDTFzEbfM Vm2RmZu81hDyVeJfBsuA ajQPmSJiS3s4geTblAkWaN+B2cVMnjQjROSNgK2ec47excX7z171N489SZTVJedK+KRMVBNTEVEtqmsT tX4hnRKiAxaX3rnSvCjo EKBLTrT1iEDYVgilww116ILBM+QzgTKWCyz9IlVMWyGSJWu6BDIYtxLkuLKC94/7se5t7d318CLoA2+4 79enAkOht2vDrMj0dTk6 Sk4kHVFltDIIq7HWYG9a4oxKFYKE1KtU9jXdAKoNuEOJKHp8cfzus/2R8YQKAhaGPLT427dN6yC20+/r UIWIqNN+GCn9Sdilk1eS tOmTZN+lTI8qLkAkR5yMqSdBdbsh+uuu+lWUlu1FfOPjHJYPzdsC1oBS3Tkx1UJRZeYISXoxCIWsSm8w javpGrVqtS+fXsaPHgwC u9BatIElOBQerQDYhIoYCWmmIVJTOExFEFSDYDVyfQZk7GMkaSPt/fBVwCTEMdIK0mSZTwSDE8DLnNlB IbxCRYgDMMwjE+wAGEYh qH5ifLFwyYA8rZnMIzDJQrrLOBVNGlE+RJODDHtZBGaBFfJn3UOKDT+/KmsAdXgWNwPn2qzlTT6iOYr/ N6Q0qhDVBzvzVJVKtUAJ UXFixenrKws+PSak2bJ9lXEz8ijs58m358rcot28pqoa6FRE97HEmybaRLWvyYoTtHZqEBDbTu0kSSAv tSzZ0+uHUVKLy0z+ROPB Anud00M96gbXb7po2vO1fRWeNanUwKh8ZJIPpDvp1yktlxqxHmEysgLbf4TQ7+evvjiC/7SG/Lu6eVWW 9XfK7KCGldhUy05oVsmp nqQJC05lVc+/lajptuhxierKkaW87uFc/vvv1+GGSa/6sP4HRe1i0jp657DTPSPQBjZc1hZvYixMOBWt Mhb1wMYIBp/EytWrKDu3 xfUF2Jgg1/+mSpWrCjDjvjvf/8Qyi18fVJCSGaBPm/oqSgBq9KeKO13Dn4fhEDAy95BuWRWq8EzXKoDD 9RjbEh7XF97vALn0NWu+ nvGWb4QV7g42Eprvq/+mH49srQ9mWVgIdabrKhG1bSDo5BJfGjmo7R86zSO5liQOnCAHSMwF1z3EZTtd fnEggLcuyjft2ouQhayI CPQeJWGck04hEQrSYhWHL91VabEREJawmRumqVQBm8n+WqJ4o4Y168Nn7htS6NWbXYKeWVvewaXWdjB3 OrRowfVrVtXhUiOh/g65 tzekM8NPgLPwZgkKSrdZG+++KLyuQcvFrSPm2++NpHDlTcx06/jev/9/kLAjKkE60oIRiSiVaLAKJmx0 VTIO95++47bE6iFhkTcA cw/n3cK3At918RkaJcQla9xEdoPXHLcrLnevUnU14o5rJTLO4bFkXYJDpgfaqvlhiidqC2xp8IcQxOZF ETYzH/FR4iRaFRFmYBNq 458phVpf9UdCPeDTYGQzgNt004E61LE9AePB+/bt0+OxyAd+rwdNRuDqKtR9XFfWwI8Ysip13YQbEBWC 1ZOgg2lIdQiANbWgoOMh TJlpMN+3Buc63//+022r5odZdd3KH+VEc0rAHJNIWpDAvxGkAJZWLo2fLMRnj0dhn+CSfHd4R238ZQCr KVq6ygyRyjZfFs88RS67 fttYK6glcMWqkyky1+tUrgHx+Ie4jfg/uiXHge7fRQZCwKKew39XsJ0a5MPqI/1q0vg5rX1T/7880+aM yQAIQx3CIEtt5549Ny09 wusNPdcgZzyabbwyTKMlEynN76MiCgmEaAcI2kjhYJ4N6oVh9zwvMRdjsdN8TFf/fXXX/WWpMfJB58FW PhsBOcQNYYkD5CV1kSVV 3y6RSrhgcBPG24lpxdoc0/RmFEXLEa8fGavceeg9qSbmz50xgPr9oAum3jystFiNX99GEH4e4fy1BKBn 4tUkQvgUu65Tos4brM0D rl9hPVJIWR5oS/zp52xGVxgvPmLMy4YS+E9wfuN+64e0qIwtrlND9kn6dNwABmTbjYk+kkb0OOKVH8fD aVwgXgpvUKcDAJH+sWJp F+5WuHwqTcLtC692ag3cYGjXA2EsIu4e8fDJ10ccKrwCAnyM73evwhKd4PipKnLQrOgdKLCIsLiL55o0 v1bluiOHk034riXgkQZe Ufy0JVGa0ttgof54azwvzIiT2++0peOCRPEBEJ6npliOzXt+++/W6xQFLUf5QymbFdoluR5HF+kdLg+I axs+6GbJPq8RuYlxD1DZ KACqyBzvGFajUFfSAUDbJcJKCQOdOuRQWRLJMna1NMUqpaLIQajAw3i3d//fePGG2+J8njqu44i6mcPb SGmWEQF7VKACrbZUCtN8 jf7xvdkcR0k4M1aA7Z2UxTQQn0I3lNz9b2FPKVt54biyKHvpb7PquOBX/zDHQNTR8FkMSwZsWFxCAO24 zKdR8mbxcvbFK0NF8287 yQNSpUbn4rCd1YUdYCNLWGh98899k8THZFYDMlXt2/1Dpu8748tWMasHpFcX/CvOSHXlLn1mzb+33nnH Vu5e+ADZ5Ra43yeRuUy8 n735DkftwG/e/Iyczs4WrjzTBteuQNIheYo89Bul/jGUSv0wRfDUgk39OsyKSllOEIzwsjTNUaGK967c sZTFqUa1fYYtlMlbONk0 O6rqLp40+8BN4f755upbb/ViYa/8fjjj1/6tiMNtnDD3BUZOLLaWxo1iyWCWmLfXWdDx2j/YMkUo6UHM GCA9P/+++85jvVUgGiee +2374U4Rb1AVhL51dLWEwlxhxjRwBzAVeIi021jS8Jz7vRyp37hZgo5APCVZlYLK/aLlp+KuRrRwpdpR WyMriESd0XNAJgRppuRi yrvxtdUbyBgGCcHDhav8rcbNUVSBnPOwdGe0c4jCaiaj5tPpxIONw7Cfp3V8wAREatqqwMxI4fXWGWaM v836TFITxXNBKyuWp2Jv f6Ofwq3628zSwntcj93uVRq24UOVOulKDozzSTNHgfbVwHESe/s3qrkrdtj1cNivn5/CVr4mYiihM93a ehAxYuBWfJJtHg7jso06 lQWaLyEaYOyFQ6z0guJeouOXRUgO0l8hsRDkvL9plVBFNhPz77pwXialKhmeoQ5UkSlinpIwYTIGedGw Wgodfm0ky0ZJU/XHUgnV PgGhh3TJCjLuOPitwVqdtpsjruMoMLmH3foEW/u7Yz5892J0Pl8q4XFqVH9j2R9Ojrj9Siwi35FPQWDa QrVZcuWqdirQQvNERA8+ koBWQhubktzJ69ws5rD6OaNxPnvuMHx6S0kO3br6fotbopdM5FEGdoZWq1ymvwXqw7o07kTXtwZ03TXG kCutCaANMjPk/fy448/t u9dume46Vmo29/wcVmi8ik9xUCkdXNAaqTWRmvnpTwwPOwfRT1QNcCRwAVQ+EJae/Q3sC8cs/ToIeMcg R4ZR/m4w+ju5YKJVN4Oj K8bRFVaLcxqIPigJ40oGeZhnUx53Nf8U5taNpGldZO0suEKrdEIMswymyfANvY6ew3w+e3kM00rmPYr8 T6SvAIBkdT98X5bfnBbm +bmYollyh4TnacCDw+rlMi6LWFOH1y7aDLAJxUG/kZJ6l0Ve9eBofKksPLjTq5tcFwJXdoM2ZeaVLj9l Vkq7shAR89s9vk94Qs2+ sLzHa8u9seG3c11u+XX0023W4zgxozXcdHtG+euwkcad+u9xeTVPKjw2X4icxhuQf3y92KLtjjPy6Rye b++0456prHZis7r7fxOK u4jk2POgz7T772pC5n8wAZcgSVzz8yUzu05IJW6BrxSbJi8SwfK5quYFBIufJqs9Nj1CzSvg/112wXCO ynVen01OZJ3OYHL7vbPw aQCSUvsBYGY4l9J/1Qk4SuhcJnoKl6KfeHc5yDgwk8O2SgiomWUURQRwYtvO6UC0veTJjW4l5cBOXA6b 5cQ/eD6N+G+aTx81aqcM VIB6ktkHAC0ZDorgox65r+1iFZEV5PtCFJ2PoXsAi1lgHVfvXXFdqHFXGMy8LAgXzfSOAdfwnd10w6i9 tXQWBziq36+SiR8V133T +hVX8mt2UyujQty52w7l7RPotB39kdyzOCd3/Y3rcl0GPpR4DCKpeZ5OxiMVVBPdyBmLjy7DAHMhDzfg ewLXpvxOmLEiBHKZ/Yesenia 88xBdpd15+MYk8tEe9Q4594dhKZNKOXY03EXh6Gy4UBHbqQUUXvFd1gN298jcHvCBYrIp0iy+uAVYivf OtstaZEplc6jiiW20NuR CVAho8a4XGAosZY81xirRrCg3nm82n8l+BbwKCOCX2sHcz/U6NKlG4KakOSX0TPD0t2u3uAIj/YW1D5g hxmRr41ltcIlDyBhXa9w XYXFG9oJZKRXfVzsbIHhIvb+/ML6VaOPVUOabYfn0GYmdXmOdVUBomWthu4040hvRlO8bu9f0t WXGH5e6iP933Slhl5+z+ 7pKNgosYvUTMglANLZuLDVTWqaGydkT9XNZIgnvjmP1fS2HJzWDaUOZ/kce3vcQHz0iPtmE4MOE1N7AI FpUyme+WC878FGCEHB1I MVOXw9Uh6u81dzrUz6qCqT7uqKcxPowuupIIc58K3zFcm7FuzVEpqbXyPYUnKkaUqu/Ju3UyatZSKvY1 WX0YvG9bj8nloQHjf9BP 1S+aFouv4RD7+bNSWjbKkTStNdbYHJt/T1Cu1U+01BwCp512PRDvOmJGgmXiuBvctzq0xAB4wUAWSU3Y MIDLIMH0qYi0GH24bFZf eWGy7pEyIjIywCeyxMNB4/PNdVXL3xmiyJSpOotWsmXRTbrrD48G1+4tVBz3zKnZrshajfFJCinqOBt3 YXDhw/EnIW7oUTdwO9GN WUHuTjvMJVHeBvJHkByK0siIHag8XdwNa7e5hf1q30tP8ZZKvj5pLqDTE4T9f0o2ayXdwcnBEHeCU9zi C379+8Bprr7neCNmxeiX CdTblD6vah9VbUAbe9vvZWJ+nqCvp2Hnc1sNAAg1iV01nrenpCfIUVFlPY61ryszD7Id4ntziNsH58ji KDg5iH8c6QVjh/kmQDBi pNXxVX4frmHiVPGeo9oBglppGteC4095yhZGANJ+dG3PZcDvwaWCMI73AZ9vJcvI2slmf3UDH1rJrlAG UYWBvsW5tDRoBPhLxoaL GQon+boW0lY29gs4yBLzOxIgPyLpNdlJQie5tMmzyl13B6vZ/hRlhOXykjL7o5tD404z/W6W9eFcTSPS c2+I9yLtmq0BcNq4ONR1 gGrvcm2BjdfBTjLBv0RaHt7wP3N5Wy8cik6qTw45j1mHTn1SyfSopzETJQYibAAWv+5wLeatUXV8WqM3 H6L6QbFd3wG4a5i4DA51 pfghV1qsmBTfOndVjNPLPWhJz4zEI23rZNYdrPRpPXZgcnd+ISEgarJhNE8jBeQVbQ9YkihovrhcL9cW LLWmYyOG2CkyUWAtR0Cd Nn40VTisfvwpkTA2q2du6y+Aw8kFR7571rg+nmyWmhjHRJApD2B0ANTZDFCP0xcsMYOzEPjtcDxQXKAd qnwk4MkzXs/jTPtBasva LgFqj333spGU1dg7Z8e16dzElhbsQvS4fxbyi9GoCcFYCACUoOqoKtpdWM9UVqts/wMtCWtIUEqf/jhh 9IPctOyQTeRrqjRrQXJD 7xwS2IcqYZyaiCCe1LYrlWkIMn+m1RXfDNPKDRN6t8VnlEcNOY/frEztQB6fhrSJLzDyDixzRcRwl9h6 7XlNfYNJuvAqbflCddpb EtfLkQSJ4ZRGTu1pTk6uuZE9Km3yr9geapYmHW3408ccl2NOmb/o0Ff/jQNXqSrmZvKZVBKCjpU6MKQb Dx8DrVIcf1ROHxlTU3TQ 3789WXaCZOubs9iM8tI9aNzsUnDYyQsCwWpsGS3iM38/NTenPwTZrwwaXWG/UZB0HyBsjYfUWn9Ft7zX M5y99YeIdoeytLMWbMHD a3UjJ9ZJqEz0gfVTsnKQnw6oF5NG1Edyq93arce4hkoPFDcsXgvIvPhpig7JdOgwEeaJTNs4odgv5qWB ncY6TeTF1xocXX3OkMTC aGZUDkisr4BexVtkzWOILuOVHsMNYhGsO0Ho65gHMrffts9ePnBvFBYodp4VjOFvT2m14GaXA1GslaTd 2N0LKIul/IpaucRuD9Aw H49GGVU+kxiV9eMMZlum8s6Ms354NC2GvNw8XgFcWSQHhPGL8Kc5nLZJFXwriwZvAXe7PodNtkc+ySwz RLaeSnwjFqQpFavk20YM YfA19J9VrLHl9zy3fdbrPCNTk2qxxaxddRoWJ4MzUNmLmDkzLxq4eqWhAX+uvQKQqzd90cHCdNtk6KtU 13TJ4YAa8Lc53UMzcL5t /322+XW09+CcJiowQkKCm6U2su/1SkJhqttTwBQ7K8osUEHa4/ZYzXT9/NrHdaf9b5Qpx9aDbbq2Rvte AlmwyM9V2/We+DJ/Uevi IJxd0v55YgR1keahtoGc++9323hza91KrK0Wf3NIsIyvYoZ8vfv6bvhw/eRjJe35VNCRI3Bv0P02dAEl XPRcV2ZTlH9BTuqP1sYe IJDGprHidzENFSVB5MSszCi+JpN0twpTavhQ4PdufGyucnODRLsn8UKSQlbL0fZgiMarRjClsz2G3Cda CrEf5KOQs71ZXoS49vMO luYccf5dtquKG23xAPgM8IO8zncyr2XiWhaVRhe8XjduQiHHlWUnJzUdguu72jhCbfCa8/x62GybBltF j9r7g3nrlscVLVaHsLSP pl05SLOnyzoMKWp6mTx6QH1nR2648dy6OBacEJJ32b71BgW6jJc106gYFHDFAXARn6NqbB9VxFXqWauR wzodcFckdcaiNcCRC+ei EdUqfY4AjwEK3MWW5dMXu0NY+/1sa+30brQlM1ZbMZnU8N+FS4HhQMfL4VhjYkmxqYsrrHQ1PdQ8xTBR UDhVmJOeD6L+dNX5920M vw+gJ3o4tAQcDW1n3utJZBb4AOr6fM6BGgY14ao2+7FcKkkIP2tLKzrimBTIOr2dda4mjPimGpW2+KqU KGCV/zAm3ycuan7xFbMB IdIWsyR8wTurLzpNVzkQDtwO9gE1lpKjDKuUY7cmXiv1z1pPqqvNH2RvzrxGjKdQtDwD0d9dce3O22j0 zCfvD9xFSsLFK6dTiXsF EYYD8B+wUD0+2WJ9GtmTxgM1kbLaNNAFQqCr/Ja89IO/a/h1qGruaI9bmRo6r+IO3jegV1ETFrhx0pG4 G6RUQfDy2j6HoHN5M9EN +W1g813bOMBgQKJfqAqF3e///4uldER3XHIO+T2W5alSxWsf/qbEAsJAihDtdmYsIg6j5VLZlauguHxQ q2ixBKEsGH81yp+4j7qF 9YbkWLllcBRow5Gg8juRHLgGjox4ANqNsSHGN3JmSitbDjvKMf0N0wu2aqEUltWpBZJ1J5rHI6lwHMa7 Xy1AwKojvESnq400CMuZ 4rkLN039gDPGdAgO91afxUeQLrL8LzMM7yz8hfjNrYo3R+omNyAZnVwcLH8h4R1nsbTUhj54DQ+gxVr3 IySOu2g91SlS77RE0RF7 Mi0YJVFkeTVup7RrpUJad3C8kY3VYoyqscyriVjSL+G7b6e4Vfk1PPFILUfUSaFtOK4lZlNStZkNUSp5 2gax2Kej7uEpsVcMhuy8 gKCQFTTA8VQOQuLNxUCuLZKVr+FcelCXHJBqxGZKaZTov9f7RjFEXEzaVlATDQdBDyay0OEaITYC7T3B Qf1zIHYfZHNorQHIxiXU WfGQA62DUqtQZEgKBTyQz0VKmxjuOjcttYQHQW3aCSrRTHBkvtjg1dqLbznN+cBV1f3VQ8q0O+Ia0D/M Eea1OiL31jBy4X4Mf6kL QFMj7TlxS/fpuwCgyHpS2L47SmpnwuV3uilQIprO+4f+qxFK05+RFbj7suxYJMgSp0nFqkjgEIhP+sbx YD1gFPk0QjQYxcd1xbUB btyVuw36hrw4hXwQdu6p9TUb6PZBVk/ea4Sa2P+YG78kTiVP4DfkOb0i+BELVnviD8WdDENTr76+xpMn PHVgAZFXsyJjZlDp639s kSdQInQmWnq5qDdgq4fWZeLFAGhJ1dKbx/HkD6wXxlQbqV+nJcts3pHqlKnr2nrrHBZtwl1//770hQYH 1OI27GApokRWGTgWjL/G z0c5yI1i4gT6WOamNKhzWP67/jgjNZK78BzyEau39s9zpJ9kGGYoGcSinMr83YqmI45rZlvIm+X7YGJN nehLNMirftvk4TsHHu6T fclXaUwjjPMmAvV6uH+4zPwzIfqd5/mXjdyAdZiEIMxUGQoNSy7GDR+L1OraPsYdgL9FanZydNLHdUsS BCGYRjm+oEFCMMwDOMTL MEDkaPJe4XCmuMNa/mBHzSMSTvWO3hYBNlQKL3KWdNxVXdvRFMzRMRbkN+mRKREooS6qoSIduZQ2cObL BiGYRifYAHCMAzD+AQLE IPxPZGzLTItXZNjBhZAoSWEizFSYhOVoxEUK2BPJQqLFHzQBKiOYJtdCzsAUKZyPB5mLhQpHOQ3LDzJx iZJafk8FwUujEQU+fn5k b+/m6hnU6CPIrnFavwtuWUZwIXUxaGIxupBt3vBMewB2j8vjjAncxs4yebd2uCNZ4ytJ5wxy45qzp9Y7 9xzD/Ez0iOnAjoxHIodC XGvjrf23VX+/WjwI9zzOdqFwaBtaOss6Rc3RRmEZOU8OggIln4jTf71NQHqj7lpuWd96qYE+bdq1Yp+/ cyxirux73+cv5xai562V y6700539fydYl8v304/QmbOta6pAB1f6whoho9aTSpZ5tz5S7gEyQrsE8bC2gC5yLqPEk6P1+7I4fz/N QMN4BZAeQqFJwVECiZyX YpQoUKFqG/cebj1H0wK7isXh7SxyVDi85SCfm+bomdqgKMePZrJWZKRmrYb09DBF2dx8Xzwc8sYpgnfl GHBVHyKhaaxMb8MFz1IQ BtJYH1loHPHDiV8Jy9NT8rpE9jVMGfgexxZLSrPSm+mW2+0YBsVazLa4tUER6Iyg/obua0mzPhKP+kTM 2wTRNA4+/btjX79+hm9e bDpeR67cYQJ2VQDju8NxrZrHWS08+ap0L+GmUz4oy3w7z5964KxkyA6VjyZXZOYvMbm899/o7PCEE5pO DDQEIJYOoRPnjypUuSkc YCEyy6zYA9pV71XhqPcYIkzqlGfVRhUOk37OEs2D7+VX3/5KrZuOto4jbFY6OuMBktatstI8eqc3xtS3 Ev0b6YItUMdlCw1FuD5p fvs7+e945zkKefXt9/4ZiSSFToXtouuH4pZURczmMAffdTJwkl664iRnfiVHD5qpoeTZmmgAqxw8wRrK TzTqpMaVxZfSliGGy8iN tw3Svvj5uuO76VaC8OigvHYAQA8ge8gwHmZbWXdL6cK/Si/6xsnGIBhJ9/SdIq3rR7PVlzwH2b/T58+K qX0nHkKh4dSy9RQpFBs5 aoy/Q427WFZ1EQ1LjUCUTfqOU++EO8BGvLMCOFv0AL6Y+JN95euCa6p+LHHHlMpcvLXX3/JpkyK4qH18 Gxdt5wLjxioaacltuGfh l/Lvq6MuYkHBVcZfj06wKP/2gKEThIUR9Cqwb/1k08+UTEmlSpVuurhIPzLL7+cgMIKvAGoft5YKH+PK 62PZ572V2tf25HIStwtY SePaE3cHW1BG6S47Tr8xLodOPIJnv8tIY1//HEyw7g3HvBEFoyQwmhXWxUtX4+mQsXTOpFA9lc12ONNU xKmQgchGewBzKj8MUJ7q grPA126S1WXkYczLnhYEdTQ9bLDf3N70UOdACufDI78ciDmFj5GRNdna8hUNmZMZcYbaJ+m1ySer2t1M yxp6lnaV9HGZO0Hdpslp HX+crRncNJetYd8oigVdhYYj3P4t9729k8nLn26n1S02Zp1JPMjYNhgG2u7H//8c+MUcPGJo960CQlx9 2+/OXywobx0qytU82vbQ ordJdaN5DDDZcI0tFugq//9jjdlv3HPEehu0cCwFgyoJZMyuUWljJrgalmYdxKK0ArDptogvbOhgIUeE OgNwhJhBxOrsHxyMiB60 NEg0GN0dHidmI/TaGBi3Js384hF1J+++lfb5lxYsW5caFRdcmoxwuCgBqnvumIkWaUpSLdkvMXqvwDy5 bVN5RLoHGxGl81ZqNYeC QeNBc/W8xIXpbZXfJYiwhRM/O9//2Oh8QJsUqc5/P0XBP1dM6SoAy/PhLfyBRlwpOGz2Adm19PWOWlHH lCD5iCtk0himb9++KGxd QpS0LnMNwTj8dfebXur31hGt4Xzu93zX4cWxniRMKoRW7YoHZgvvUd8ciRxtEojtGn4JfgKsMRjeg80V zXSH9HQLD+WK6TfA7yVL xFT1rmWhmM8sOJKdktK9OHKg6F7b4VlPXZnU+7/+lxqNGm4qX/09ugQyRVVZsC2//78RaMR8u3tqdzwJ hZFbbJuKNL2JMQdoVlVL Aw847LtZl3iRKMhEB0/OODI7epLyPAJm9shJwyk7prMd7WDBRMEdbkl0FCzpFZp2e888tHXipNUX91+z pOjZJDXIrNx73gWy134i 0utMu599ejs0BIZhwKXkVFRblZlfTaWj/Ne2qCSAXYNupOZuo26SXt0hvalPk+2QaVwDX2P9GVwpcdwl 12e9/7777ftx/GY06kNS IWjupaDAler7DPCmxYugkswhVWWNqdLgHPYY7wSYKZKu3jjFZf9+xoyXel74pDBte9HLz3gxMQsIcAFC xkrEzJ7jMC/j1oQ5DQqd omMb2cku7213xJEVn8ArXJVmd7xQtVM47yseYjl9N19wJKduwqHYWhyEnf2sCoNv+eSvCLL91mqiIOg/ zq1Y4QhHFvhXRUnhUE57 jsTIKhHsP+IL49HFlGiriISSFHVVft1CsBUCxYD2kSqej//rIhYO77BjGLgYqln0t179xM+U+jiOG/wL rPTTUWdcRZb8odrvq1pB ZKF668rqhYpcPpPes2elNSTN+3n08UW3j7KNd88AMm7ueAQ//zzzzKsQaWP+LwA+du1raWSbHfd/LTDS 6oFTHN7Zu1E/jVWrLo1k 5wxefJkl/o2EIC0Meu+/Rv8lwLSely8um6uEQss2u721TukwFNTC9rnHPw4a09iNNJvfyg++ecdXou+R jhUltYGgwaCyNGxAJVm5 57cBnr5odGD5z3vRDC7M9bUfJwGCuI7MlPgUWXEoBTvfz6LafKrnV/+1b7ILxAYL3Ag230VFDyD67tiw 9xaXf/+/VUqE+u+smXL2 vzQkJzhSoAAHA+a7IfWn8/UdJoczzKFwaIeibZQqL0MdAsUW25CCT6QqA9rziza67BrJRp6HHT+QaN3h W6N26Ztp/MJE7boDWMhY hq6stUZBc8haCEDBBNsmXdroUzbrHoooSWIjMHrxoOFk5deuwydMXgTOqLVrQXBJDdvkECGvEQEX9MJa o8xkAOGV36XZ7EiqG7// OX4Vn8EA5/G7lZrWgmlJU39af3Faj+OligxAK74qMbqLf7fBxup4jNXkRXFALC//KBTfRbOcFosGu1e1 hXQ8kfMDtyBdokseTIUY 71gIltE2xv3hE722lqNd2NnTkuKhyGZA/TLL7+SkF8hNY2g5mJLyKNIEuWfEPpk7al3z8R4DBJQ99OIn sHV/bnNQDcV4JxbBCuE3 xmppeAhyDrqC5lhr0oCru+cLaBte4a49d137fWK2VqIM77NLdgnNUCd8PGCPmqMQho4LdxBxeE1lJQM+ 9FBUarFQDBA8P08XAlev 2iMemXFZM+2ijgZliM3O2LAw8+eQ6PhbWTFFtjzw1Du5kU++qWywpe9RidTmOP4eAgwpFGiwsFpCBqFu et4CiECTBuAjWxqCg7AA VLZD0VLhEkkXpNYSqPn1kU32Fz4Tw6g9pLvYqOeTDif9wkCZbSofbcAaJ+Zj9Hmof2++knmc/ToURVjg yjXk9TVfm5go+6KcQYsu De7XB37QKKhYqxhR3Yp2wkMY/qvG07crZmfHmYkdDAlmRXHhrPnKWG78yUhpLMkHeN3HQj73yUpnpMW3 EzfR5l025CjQkRC4M/v7 TfsVXd6irUs2JNZXVRryVqKtpONFuvdSD03WWHjLA/W0vvXraGSjf+LUwW2vNnabArefoYVWEFsrNZpi cYjsDFkPry13QqAiDa78 0caLCf4Zs0TgDhqEgsbRIxEiEmrGx9urefvKxmyWoJpdkPahiBw5OzfzVowv7Kxj4XZHmqJWjnGO61Db DkI7dLmOfGFbv8XbUfrF 7Of0ypk7wMzPUb1kzNqrqaYKN6AK3+yH/aTgFhAnSsau9R6CPrclgv5659UE4wKOdELyrs+dN0EB6k4M h87eFbv8kj3SqCZeKtSj Atkinson/J2C+OeQELLf6sMalBxy3rf1yW1b8ezcJfHXCgybx9rZq0WXWQGupyRI8MCLBjSI5NHZs1I7PObNYA FmSV74oBWFGLZZtQDrLD kxholUnwJkuQyTFbjOP9gUn5YcscZtMqgp6L9ZWIJHS6hmp+C1rdIlvfhtBG3U3EOPzMHB7C7VFsoBWX ZJnlwaNb8zL8xNHbbRrv YyVmfvVXlunAiPhurvdZTKpFzwdzgXzupKYvJpXXTkV5wBz/U8XCVeOQexygYWIqff6Ukb68v4ig4oRD 1Nu7X+/wW9Fov0nUNxcu XYQD4cuJRRKMOMj6y89s+1D2bWaKYvL2WdrEXlBO1CfQEkGRZiTV4Xy2UNjOIxv0bSQuwXefl5YYq6Xo GlQcaExgXtRpUoVWSmhG n4DpHyxW9/xnRvxXJD8veYGaHIQpNb4ZzNBjLFeF9lv7g1H8gtTvQjY9TccGmcCI/CBEBYalaygMJESz 2Es1ntf4YlD3QvQtNYOL rSBx5810ZuanuGEOAGZVtIguBEaIYZrGBN0HuiygHvqtqXdqecMXQlSQJPUgWA8Ck9+yjj2oYu8Y2w6f vp80hv8anCP7YurhKGIL ++unpGKXZI34uLxXTy0iBicp5WWPmx04j/Swghhh74CbvU27XwX92YiHytO2T0qv1UCK9HDcaUWdteT0 KP4dZJ72TCJOmxZnuxKW 3dWHCoLtqaW53tkqalrC/uuMJjOId5+7qBsu2O1r4Yw+gAxRkrbeSJnZzeqGYRtqalkXV186xeUGNGkG U9shBvN8+oD6Cgu2ysBL 8Q7G/o29zSbJqlo3eK1bSkh3KbPRBN0STTWkY0u0GA9YtaL22F/2U1b0+A1wyCSedeBiICOydqw1FX2/ 5ixiMsf7FgYl7U3wvNoL gLCe7ePUKj0AaNsBUhRf9GB2mpKNqw2UGeNmjjnfDg0BuZ5kT98ToG4CwY7MHoP95nBA8kfNCCkb6Y1q nRheZfagp4/7QnJef2YN 6MzVScbB4tYYSoJNJhJ4cnXuIGm1Ou4FIJ/8VbuifrApuHLIWlVk63+mu85mwa66i4vTApl9eWJwrFba loDidafSpFducHBlhtCE D95fT1HFS6IOORDZD1MiMGC3LEyCeKuVA/M+5GxDZQlG9q8xRjCZo7XtTvNveuldG/w8lAjhfICeieBX C9bHQ3cUGjZmQGqCU3Za huutQDR1+cQQPPrYockiEuDHS5YRschC6zRSh1YH1FPWNfvlOamLkkicsyy3i/MelToUYbmo1684nnQO nFx1qqEvMGIN5ZIfk/+K I/3Fk/mQmC/a3tu9rsyjfYIL0HRDr49I2zTC6R/zbrdricFd5xis9OicMFBhfsE33GOV9EPwDBm7sbNw JiF7lbCbdLunmmt6mxPH SkMCiemuCoaGeIQ4b+jm8S+urV6rc45v77y8GMrMefjQ3Pkh3euMiQNrkC1SkZ3fIFeN8VSSHKwB4eJl UMHp/0tjgP3cI1h+1t4+ +23U/rj1aH3G/VOOrx9lznvMNoLuPV85tNIXLhT7u8x08ZiTktHRPTAWfXfP3wZat1VievV1zWfMYeYe vSz6KSRZBQRariAbzGtu n79+rnFFGtDxk5GNGtSKn6SB73O7844d5uaNRrQsUuns/dDYCGl8J44R0Vvtivm0otpa5wSPE5aGFvCY YJCwXY09aztk8ZL0ycsQ OAJb1NdM4ccpTfX3xjPa7J4wkWnbGXBrPdeFwAkLAn5mvDRpGlFPbfqjWn5ffG27WfPreBupfD81cUrf O4c3R/uWUUYhScfnie67 2sbML272fnS807yjQ1MlCFTjRAC1GEK09L8cnsSk8CWtSLk+aj5juZIP/naO3wX5rI9zw9x1NUhwFiGf YRngN/iCoz/7P3X1TO/O 1RiJg7c8A9hvvrtMYdMutvoAnDVpaozDgZcp/cB9Q+6LZEG6/DcXtoP2NdlD60rAJJo6sMKFRBkkDKWO EIJi7/8u1vnfqdqhbEcU cw/I5F2NhV2HOg2ndiyeUvA7LmaMQ3CjXvwVhIqB2Y7jQ59h4ViqS47KmLrCWxpwQP/FND8+/rfu423I 0/QPDSBp0Vybh3zDFWZk JqMLiBM+vkngIUHWn+wsGL+RqC4Mwy4JPqyxbJZETDIUbf7rYrhNmkEIzy8spESc+CfzHuYLs7c24rNy xqaFLwSTPag5OTJzaLOc idYgDAMwzA+kSVRWCmY4CtZAHsGVSeMgMTvNXLpnIQf/0Im1RECG288OYTAGTzRTpHkMkGN></span> </div><div>
</div><div style=text-align:center>
< /div><div><strong>Patient Name</strong>: <span class=clinicalNoteMacroWysiwyg id=[id number] macroname=PatientName spantype="macro title=#PatientName>ALYSSA PULIDO</span>
<strong>Date of :</strong> <span class=clinicalNoteMacroWysiwyg id=[id number] macroname=PatientDateOfBirth spantype=macro title=#Pa tientDateOfBirth>1950</span>
<strong>MRN:</strong> <span class=clinicalNoteMacroWysiwyg id=[id number] macroname=P atientMRN spantype=macro title=#PatientMRN>[id number]</span>< br><strong>Attending Physician:</strong> <span class=clinicalNoteMacroWysiwyg id=[id number] macroname=AttendingPhysician spantype="macro title=#AttendingPhysician>Sarah Coto (Gynecological/Onco logy)</span>
<strong>Date of Service:</strong> <span class=clini calNoteMacroWysiwyg id=[id number] macroname=EffectiveDate spantype=macro title=#EffectiveDate>05/10/2025</span>
<strong>Referred by:</strong> Dr. Coto

<div style="text- align:center><strong>PALLIATIVE CARE INITIAL VISIT</strong><b r>

</div><span class=clinicalNoteSectionVisible id= [id number] internalbreaksection=false originalname=Chief Comp laint recognizeconcepts=true spantype=section suppressempty=false>Chief Complaint (Palliative Care)</span>
Establish Care

<span class=clinicalNoteSectionVisible id=[id number] electrical intern albreaksection=false originalname=Oncology Diagnosis recognizeconcepts=&quot ;true spantype=section suppressempty=false>Oncology Diagnosis</s nava>
Stage IV SCC of the cervix

<span class=clinicalNoteSect ionVisible id=[id number] internalbreaksection=false orig inalname=HPI recognizeconcepts=true spantype=section suppressemp ty=false>History of Present Illness (Palliative Care)</span>
This visit was provided via telemedicine with the use of real-time audio and video via [employer]. Alyssa has provided written consent to conduct this visit via telemedicine. The patient participated in this visit, noted that her home health RN was in the room however he/she did not participate in the visit. The patient is located in their home and I, Dr. Carol Branham am loc ed in [facility].

<span style=font-size:11.0pt><span style=line-height:107%><span style=font-family:Calibri",sans- serif><span style=color:black>History today was provided by chart review and patient report. Cancer diagnosis began with development of acute renal failure. Admitted to [facility] with this December 2024. Found to have cervical mass and bilateral hydronephrosis. Biopsy confirmed SCC, PET showed disease extension into uterus, bladder wall. Completed concurrent chemoradiation with immunotherapy, followed by brachytherapy. Admitted with complicated UTI earlier this month. Treatments have been through her local Oncology team and [facility]. Anticipates a follow up PET in June. [...] internalbreaksection="false originalname=Medications recognizeconcepts=true spantype="section suppressempty=false>Current Medications</span>
<span class=clinicalNotMer[facility] Urbana HospitalcroWysiwyg id=[id number] macroname=PatientMedications parameters=ListType:Bulleted spantype=macro title=&q uot;#PatientMedications(ListType:Bulleted)> </span>
Per outside Oncology note,
Carvedilol
Loperamide
Miralax&l t;br>Compazine
Trazodone

<span class=clinicalNoteSectionVisible id=[id number] internalbreaksection=false originalna me=Allergies recognizeconcepts=true spantype=section suppressemp ty=false>Allergies</span>
<span class=clinicalNotSt. Anthony's HospitaloWysiwyg id=[id number] macroname=Allergies parameters=ValueIfNull:NKA spantype=macro title=#Allergies(ValueIfNull:NKA)>Cipro&l t;/span>

<span class=clinicalNoteSectionVisible id=annabellaio [id number] internalbreaksection=false originalname=Review of Syste ms recognizeconcepts=true spantype=section suppressempty=false&q uot;>Review of Systems (Palliative Care)</span>
<span class=clinicalNoteS ectionVisible id=[id number] internalbreaksection=false or iginalname=Palliative Care - Pain recognizeconcepts=true spantype=section suppressempty=false>Pain</span>
<span class=clinicalNotMer[facility]rbana HospitalcroWysiwyg id=[id number] macroname=PatientPainScale" parameters=LookBackDays:All spantype=macro title=#PatientPainScale(L ookBackDays:All)>3</span>
<span style=font-size:11.0pt><span style=font-family:Calibri,sans-serif>The only pain she currently gets is at her nephrostomy tubes. She will take Tylenol at times for this, 4z009ay or 5e811xt. Feels that currently it is not severe [...] type=section suppressempty=false>Physical Exam (Palliative Care)</span >
<div style=fowb-yycuw-mcyc:none>General Appearance: Patient is awake, alert and oriented, in no acute distress. Patient is dressed and well-groomed,well-nourished with no evidence of self-neglect.
HEENT: Sclerae anicteric.
Respiratory: Normal work of breathing with conversational speech.
Neuro: Alert and oriented, no facial asymmetry.
Psych: The patient is alert, attentive, and oriented. Speech is clear and fluent with good comprehension. Insight and judgment appropriate to situation.
</div><div style=runl-icjqo-edko:none><span style=font-size:11pt><span style=font-family:Calibri,sans-serif&qu ot;>
Comments on Pertinent Labs/Tests: [...] the guidance of her local Oncologist and [facility]. Please see below.

<span class=clinicalNoteSectionVisible" id=[id number] internalbreaksection=false [...] spantype=macro title="#MyRole>Physician</span>
<span class=clinicalNoteMacroWysiwyg" id=[id number] macroname=LocationPhoneNumber spantype=macro title=#LocationPhoneNumber>[phone]</span>
<span cl ass=clinicalNoteMacroWysiwyg id=[id number] macroname=Locat ionFaxNumber spantype=macro title=#LocationFaxNumber>[phone]&l t;/span>

cc:<span class=clinicalNoteMacroWysiwyg id=macro [id number] macroname=NoteRecipients spantype=macro title= #NoteRecipients>Axel Palomo MD</span>

</div>

<div><span class=eSignSignature>Electronically signed by Carol Branham MD 05/14/2025 09:56 CDT</span></div></body></html>
--- OUTSIDE RECORDS SUMMARY | 2025-07-17 13:52 | XMS_ITS | CCD ---
Author Name Interface, [id number] lity Address [address] [facility] [address] [address] Organization [facility] Address [address] [facility] [address] [address] Care Team Providers Care Grey Tender Name Role Phone Chica PALMA, Sarah Gallegos [...] Ordered By Specimen Source Lab Address 04/26 [facility] [place] other lab See attache gomes Medications Date [...] Order PET/CT scan, sku ll base/mid thigh [place] Ordered 02/02/2025 Physician Order RTC patient teaching RN Patient Teaching Visit Ordered 02/02/2025 Physician Order Radiation therap y consult [facility] Ordered 02/02/2025 Physician Order Immunotherapy Monitoring For [...] requested Me dical Oncology for chemo/radiation at [facility]. Weekly Cisplatin and Q21 day [place] with Radiation at [facility] Ordered 02/15/2025 Physician Order Port placement Order [...] clinically indicated Ordered 02/16/2025 Physician Order RTC LICENSING ENGINEER/PA and infusion to start with RT [...] style=text-align:center>

<span class=clinicalNoteMacroWysiwyg id=[id number]" macroname=PracticeLetterhead spantype=macro title=#PracticeLetterhead><img src=data:image/png;[email or web address],eSPBIr2BTvgTQOELFArBCgAPWUCXUBGtOMOVZMA2M9zNZ GTRIYMLI8WTkw4n9WIWUJGpIT2CGQYbazw3ZDPKEMGWyRvYwiJFOxHLRT1GBWJzBbyKIPkZSEEEPBpx0 T9IgWK6QlfYHtnfxgI8S mBaEtEGAMekCyzNIzkBIVLLTLMuEmMFMNwrKkdJgGLvMVEP3BnsXh5IUlqdB+u8/Nlc0rcz3a07E16Ua lkdufesjHoJAgOH5tyVw DNUWRjEAmlKesLpB5ItSVQ2eI/eBhsVOWkAlAUeGVEwfLIZXCBfUEHZEDMZxzEKq6PDssXNz/gECxCGY MjZA6zXk0SugZs3Kt1lm SuAaDfewnDHmLDfs35RZpqaAARKn3ayADDExImwpMXlMs7yS6yLoElaTJ6djLYUbam28rsvopXW9keYE Zs6n1WWg0jpbNy82tFTL nMaCjDy8D4lKxvbRjZAXSy0TIiB1dwvpKd2lTdsq9tTFzANLXfEtDeUbirEMZjUbyB3fI6btj86jYCuZ /FiRPjyp3TZz5qfc5Be8 6oQw1x/sABhrlu+/nmjpy3574E/oGBUzIyjTkzRd5rXYiApmrviJUQZPRGJ+AdQYHAQBQQQrV7+EU0e+ tPzHWlQ64GEseunBd9Yh 15RSbP8Gaqat0+fCSJE2n+xRx8a//9uBzlGCpRWXqUFs6+i4R7GPxdYm30q+8FoWCsWtrEZhH61mHzxn Tx++/btVL9+felnmOsJF iDMdUdGRgYFBQVJ/lGVyPeKcleXIrpZXkNWMJpVL3V6Jf8ra6/RM4MIfy1iSu+HyujtoJCD5eaKXJcwN QJoN8l2ngthfaMvIF7q3 Pqos81dS5UIry7S346pNnRL1RVJRMzxPXSvtfKuYb7njEz4fE69ESAnXnjXYM+6vu43oBpQoIricQ5pi IEw/wpWrFhB8+fPp/Xr1 3YfRsOCtNtDUa78dYHspzippMBD58ZjAKsK86I/yhfSxvk1GaNZJCRKaJPBiM2uDpXnZBHXtUIlKu9zs 34qyEyeMfOzx8MoGVO77 ISfrUNFG1nizp4RKhDZuhLgozGCdxSNKaUw9Cr90wr9YQsRPobBjRyyqXyPX9t6/CGxLIuq8kAdIa+6s 55zdkjrFfQzhUEcNfG9U yHvMtAdDqPr81vJbWAVFaYMa4ajzE6RdbS4Ll8xq7r+dry0ZEDYZFPXmOAXSXkeDuZf57//vhQmDFNQ4 M2jdgCQnZUjSGVMG6OmN 3uOsH555ujlhhWnHXd35triLpS6A34qQs1v4n6yic+tuGkFQ5ucratRm751Vo/OxebcKe4qwTRGcIsS2 wBGGY7AMFZ8NMs4Oig4A pIioqLpu4+W3X12CoB7BH+gD2e+TqCRv4yIST2XKz1W52R6rY7aF0X7u++W1+uNLBqGLf75BG1yxUAel emUeMAFWMLUllRcvnf9q GmZBpf0mfN1kKeJUQGR0r8+x8Eu24eWK9YxYrfKp2910v/IMNadTzO+JGJKhwAo909AHwXBq92ZTeHTS tnSt2/i5wfhFh5IwLSTt 0BzqJxrLPuchhPoej46hg/YHXdTwBVEtnJGunIuhA0wQlU2SJw05PGg0eCuP0IOHpdXGuZHJcceo03/M NAY/hJ2X9hKALgCDrlHS +cafn7+vm0UOwXEhlJZXDC2QzCrlBR3y61wn0DcOzCOD519V4PtrVGDOBEkfQZ1nIDPGXbd7SyIxgCHc 2QxCJ2CYs74PlrZewISC 6W/ms04iTznSgm51SngvUYW9nnHx2p/yNch1AIZVokUi7PO5srYT1zRrh8coHqvGJWYs3EUPsDqtPbg5 jxckngC5Vi3xyTmbw99E v8wOARJZAf2R/p1uH68vHIUWAbCgIllNvxHT6z++osw0yvfkkWbC2NzgEaETHsGROVcUJZtjKWGcqDGh QLWTZgIiMUPf//9dxXrG gy2//kgm0A6V7REwedeUEc3wfiK1bWHtD4ldiuIH1x4hdEVZGd+/99VxAfEMn8ilGgUDJlHgdL66UEMX vH0iPoyk05+uY8BY1RVg fGoOUfQLj5ZPV2hftegfgf4iYdOclTNoPkufsqtwb9SFL+Ex+QXiX7/g+nA6UOsJGzExGiX6LBTH3lnK rznLofAmgmrWe3a8idts Co00SCZp7/B1TQiB9aAJMuRftMoq+uB1LOK0LpEiaZA7SkLdXYm30kYaFzqC724jFf1t98cNhJnDSFoy E5mPqGIb4RSlGHG3NjbZ eUqVdQexwwdOlRuddeZO/QEriJzod7GdgJ9GuMwGNXWo9+zPZKFkqtLuZgY9PuzihJSooolYmBYyPT6/ PhxGd+eHoSdr2daQaNn8 pxrwi7GvWrOaUJNBhrepi+AQ90mC0CLJSPjPfpacTddpodNhI8MWQcoSqCBgwqyZDKaVNTrLZmcgfx9y NG/p17ZacoLKq3yjHr+c vD5nYbPIzNaLOB152nOMxEEUDn9DYlOsoSBy+1fapaAigJBtj2JtTtvrW/882JX0ic5zEvLSBzzFkWUP ZQ4ZPlJJB0AHIgEHs0SO sSPHts5d+ibB0Xu396eE0431loWJ1W1t+1t6x9Yu8rxBmzb/kmDoMxPAWtO1Jg+7QiNNf89tzHGDfqX7 wERGTpyqWkZlJCYRCdPn cz9Feexa3mXKBFn6nPt7qEmbTX86tifS2s0zwoYBLXvdNQW6y0KEed2q39OSChnRB4BVcYTipq143sFy oZPO3XzY7iJ1LLxpsKmS WriwAA/ChCl+MDhwzTsiScoICCAbqhRnSa8+IOi23zYniayj5/IzHKWMIXduR9vsIen0ZhVJzH2pJkcH 8FoNWiXa8GBCwxTFhFzj OGwtTr/oAAKDQ+w9nVVLUfPvJk7T0LxOtxJlQHJY7tsgBei/wVuaLiL7m3+rFXgGug46msi04k4nClql RQuV43pw4lPyQuSmOwDV Dj+wmuvEcZbUnfXKdSKHWpFPXCqJYSBJVWv7Vw2g7dptVvt1uis6pVn4e3YQFqBnZsN5ou1C2MGMBD8R sp7j6S2fAaufwc06xYIl fUDRwZrD9vWurcBFvCoswg6gnJ0NPgz6ZnZ93qfUW4/c5fRf+DYUemqTNcoimfuE3rfFnbBVIA5gSp4w mGY/C5NSVGYlGo8LIaba qJlH+eokDvffoex/nnfBVsVgTHhY7BzrkBtdUkSueOfj6e8N8WZJXgCOM1NxvoPVJtgQaTjV8+BzLtpo +ojLLTBjXpxCufq7g54e de95483xs4vhu+MkqVKSz/NYVL1LtOImWXd4YDKoyrN1kqyFmBWQX7V3QP/senhBcNsTJOti3UJl7fCF VY9mOCW83aJX8fhgwA8r nMLbVy/gZIyDWm+yipZMMFPuGQK21DepNU3asJzBpYjgZOnarG7+SKZWrIEw1NjdJEEo/wpUByTkJZJE 5uVjzuBA5yBOLyBnXs67 +9XIYbJ//IWPAInqLtCsKRZpdI3dQtKKchPEXz5yyVxsL/ErGXcoVdWo0kPTmb5LIV7nC8yW5nRlBCd1 BDBg5PKA+DXWAh5wVRa1 aUcI5DAm/2622l6w4w8ssSYpV8CFHvHQ0SU+w+Ba1Q8ETAX6XWpz16FF75ySLTjWHK3+w+Z4PVLVZtnH HtKJRDYqNkAwbqv2nrMK WViClfZrdBxFCGhdUe8u71bZXw4LCvejJAOzyYVTJwdqwfFdD2nOlGkIJRka9e8RL6D7QtU0gP0qEk1i PGr7VreuFi+nurUrUcLl sESXnbo0D/jvdX6Qg5P5dnmrqo9QEsIXxVcOXJu7FFFL4dFnK/LGHkhHnQImtFQ0Br1w0lfw3Oh9X7xj uACTkLEW4vE4+QWVkxYX 4d6GHpYwxo/MwPW71zvfoaUq4nE+KnIO0XlADHBVcR/QHq69LIepRGZlhF9Eh52VZ7YIQ186kmPM2uT1 WStVL6uzMepn92YfiSe+ xVY4KCKFPpB3yWYK7qd/DgRH0YBzyImHl+eTQ89+UD4T49rFGwsfLc15Meryc70JQJUXpEAbf0YZFhVs cOFLgkZbOMoTuvANk3Pr 4WGhdGvew/Dun3mUA907NRnURvcOIahqeLZbSqmOMe6MUBdMm6Yd3nDKkgs+4oi1whO4S60D5OfBwGkI 3OpgLcjznCH0QhO8+bNk 36GyY/aRFyBY0UYsfnyyDX19l/6ZbrvqdEUd+7wPRgBfMsbWUhBspKo2KImqCz/lk4nZX/oGOB5qX3dX 7m7DkFC4a0dz1UPLzUqK MshM9LuZOTnPURcwAtkSl2xJQoy2OkwOhPKAAfB30HCbsQqqw31z812q3s/fomR8CHNEzS2CjNHJ0jyW okGx0ePbFaIytQ0yUMbW 8a3UBsJQb+iv7VRs/FNNHXtFrp0+hz6fGT/IMOrZUywsAEnB99MUsp4YUVIXGCRap5+gQEUEhIgKuYwU XInDMjaVA5KTqQmEetSB v43lnR/uf6p4JAMAHaLgd2A6IZ7/LMRRr3MjZhOUMF0GCXjO30Q6TnquKmXAaLy+z8p/dQRuzX1MY1/K nCbMM2h87sX/g2RgtDhd uRHuAuLyXcMHDhQ+TgWj3jUFt48IHpMODZeBSlxiwnec7Enq+X+xvRmxscHsUUQHRN1oUp37yvTKhiJV 6hs51TnJxXq7/kPg+U4d 5W8pPsI+LhLdM/ok7NozWiBy3QTNg6/1DC5r+4BdqmeIPDPS1eiux5iqFUI6hjO3O+dphM65FKUgaWWM JOvgEns/Ccluk4Ly2rxh xxYCyWfdP7PKhxkRRnIdSbXIz4hThz/XEJHzsRRTOFgeuPtObR+aEl1S1buqPtjuKGdPdoVHvqiysBZ8 XMDxeTgMsCxpqIB0896I y7KdVxySlFi2M4G3VNFpxnbTWcsbDqbpIi8BAqbO6wmlRLg3UrNsaSPxgyPUMEFB1sa5SYKsgJSVTLdY IVwgcTRmbv7ZIXgCNCzY ZzlOLZr9yXxEIgAkWkUXeHPlayOJxdxbipqMjH4Ih6zBPmeEw9ZOq+F2kCsTXO2L320H3PJ2ziewp4Pt EM0eUk3DC/qdKz3PSYlE ZhkUMxNoNJjhAU2yPgPlssPH0gjGlTWxKA/13Ss5dwyXOd6nqxHv4KUrSTsdvKbzwvHeeVhchXkvOH4k Gne8t4+GGI3SI33bWT1x 1QkNqJHDiFhKdbmEzPjHpg9Fkd4/w4E7k5MCI2qQHnLCooQ0TjxXIX+NpTCqoxmIN8e1se/G3eBjxfMU DzeygGEZfuQful12ehmZ x/N7G8BwFD1VpomEAXStPlhYRT1WYmQgIuHmmqxqH6UYdVIDqfxsXk93UG+xmylbRcRAZAQL0TASw8CS Rj/xCBYyToSNBLRqDy83 cwaE6xCpksPCq5nnVlL2DCcGXMlurbrGNCGVChFr1VKY2n9yRa9LpHjYDKLrCT4p+D+caMxRmSC6PwCt IhLjS9xDGoTRiTH3rTFg lS/eBrQ2W2+vbmENq2rnABl9V33KABfW9MEaKr7a+vn70/n7f3IgHsndYXSczmCbmV2rEvLJRxV01RQr v1xuCjGFfMcU1F/rATi4 a4FMnDzZ93Ug1An49dJebxbghbL/U955Itd/YojM45e07YwaPfB1E3BRcfaHdOVMgQNIuNYKEpJT1l9o lAAVBkUanRNbCWcJW3Ag zZdpp8/CCOqLf1EARXLDd/I0S9DeNJ6ihUr1CGh3hhYrgLBBCQke8cvu9K7NgqiI8Y/5g/iB5Aj4Utpq 9eb2p2mJU8xLiBf1BNnf Gk1EIIFq14Gskk4IM/FBcjsvfgKJjeULN6i0D6jWFMOaO92dRCyCK7faz9StHeY7rZSctOl8NUH/AELE CZfMWjQIOUj+d4ZSbTBV gQvAQnj7WO3Zsiwwoa2VP5c2QBETQdTul3KjeYdCc2yIwwtRTwiEHic6dm6sW6c+Dc6/YTwqua9gVqBC 703k+xkT2pm2GUUAj7jr +400QepFFoA0VQoKynVgMYDGLwqjarbJDN1sfCE2TF+egzxX8SlQ2qrInCwJD++PB0/mpmItKmV33qOR +MMV4LHkNh7NQRdeJLLW nZ4oshRTDpZ5OGXJ7CPFee0CQDmjnlUsaFjD4MzBV6tRHzuk8OkqiQ+RuZIQvZGRJWaBA3CgpljtunAP tKOv+WO3XPvQShVmPAzW lxACpouj7ZZkKgtSnZFZeIwVVZSEZZu6CnYWZX4AaNoEQyFbp/WNAvE9eLBsTmeLMdzEpFpfwuDwdRFQ sYv97RIYkIG0OZ5wkXLJ Jp7xk+k3ARQBb8IVkX2qTSc/krGoxWfEH+JUCWjWwjjJ3+vgwYkrkEKNpMhi7+kLCFEUoVASElOobtGm 9Dph18yejdJtlZPwTDN/ dxLqKE7z8+GlnJdV44oliqrD6OLfOn7mMyNnmKa6+Esdras+bixlZiQrmXKzGVvxF5V9YrDxo+xQoqJARJ7 iq0DsqLajRfezKsBR+6h do/ImAhtccwbmc3BGlYftIhry61MW9pExZ9v9LNQvl2BopDaTKMZrWkjCLGmH7W+8g/KYa3tukByaSaP exEplj7AM6Gfg/tp29eG y+LQSq4GHUu2NE9FXX/pPFYbXqg5bWLQoGq/2GZPMn5N+lHgJPCXBhmhBlHPtcaZyvbzHTN7Om+MrJQ+ UehmyL22cy8r0Jwenggt rlLI2EnsdKzXY+f5BkUPxwiknJ47HKO4ed+/pP5nU9ibD74hVDNi9nYD0kF1srSPBGdAQCuGO1r70sob jYZ8z0MPZJm8RebNnZsN yNe78l3u4OjAkNrXACVtUf+9Mo6qTvWIAdcwy3yZgLpBJGFZKY/zHtL7r+aejOLidwzr0gFQoYnk48ru 5iuvTG5Wp1fPHpVCC6X5 S7+NeKJ7yg4t35zlGL5fzop0IqeJFPSsnr8dpVxaBB90WlSvJPNDrk2wkvW+UeTSuVycQjlHVlKI2eVD QDOvUp2j8AVD/+U+xkmP 5BDsSyWQE3+PEh8tnMq0jAUIEcOftn91yiyDOpLv8UWaltTiBikoYTmfqP4IPLVRheFzloDSI2onm+MALAY tCcsLLWZchxn9lvYqXK6 0N414pQP4nxYnPRjwWemeOH8OzdCNKRjFXXES8DcKlWhDuU42NZ374WD3jIiaLkO7cKlTt5tsJNa+RPW IAw+AOfYQl133/T5Mnmg YHmg3sFAuf/bxBlBgVRpn+XrMjZLtUIqGQWHzs7hxs44aflSBnm2ky9uqEofjKSdEJFURyzbHtgrahCU AohzyE20WXRNFBmZIviK fPOcDyROiDU2CHeu8JGbAFZaFbRP7HWFCNC2LakO8BywqYi1Ho5p9HxNvCuCFGSlCu+aREOGSpYrA89d sExGkF948CW0pmRZ2Lzz QrOCZDHiARCjKdwBxyQ9lYPsHXXitxbWbxz4tpW17vHYBQoW8Cc5SW8a8Q9izQcP0ycUhvaU/mMholzg RYBVvr3Kb6SMWGMYyDpw qPCPRv2hKYp3w0xAvjlFoU5aSkj04UlNZc4jfn4SQr+ELootsij7LxVPe+DIqqFSXhYGCWnpVOoqIBT5 Kb3fKm83JyE/zOCStZrQ wjgtPGYdlTPkinS1SMfkCfgzi6LjZ0+3OqM18nKfdSDi3YvOwdD1Jg9Ui0aHLXpbL4cE8AIJvfa2LZSw fsUoS6a2LbRulYJtfBUd MdAYJPQnH9sxF8+bkP8pzoGbw09QlFIR09zji5anevPEWvsSouaoQmBjyQXumfWU8nrjiKmnSO7sxR6T 4O1utbSH7qxZv//mlb07 xxaHuMwhL0CyFswv3CF1gYNIt7h0W0oQilosmOTfW3/oGftwF5kpNM4TOLjGWX8B2EZ/d7IF957wXBZO cBg2TO3v3eM62PdMRYA8 IuVKrdQefSxZSGyS9YSY7zv0syGpJ4ZCxgeao6e5QvxUdXfFGcopp88GMDJe6OziU6MTJl4a2ZZqJqq0 Ny5k+rUqUMVb+tGN09+T 2mtXMGX8h+cf3eprR/RvB4xjd2RfyuIZISaTOVsEbuada/GmWzv7rlrJi3GLjmwqjaZBgOo6PWw/OnLZ FQBOdI0kg/Ev8uDWeLp4 Jyy7KocaQ2dD59RSxg0kN2/4Z4icSEXwFcMjYHpQ+rG4eQu7L5jwyoXU5ezsgfOeXpO/cJB3axJD+jkh j0z8618UQ91TF3WVBabR iBMgeHTTz+dianne+++odmw6FddenN6HVlG1dffDFpIj2LlMF1CKo3bhn46jcJEq70PtCJkil9HRmBwmfzXK Y3PNvpsajjO51elH3ckR kPVkvKmUY6XzNLX3V4zH+K1w+LNoKWjBy317+hT4lc5bPdgkC0kc2vUyt5lDvB4CAGcvFt6brJrllUNJ b1IKaHVCI6ykevTUnCYT PSrLD97nUYuD5VLAu1nOW57zcosaUGFOwFteJAiObi59s1qlqpB1D+YbhMgqIVRjA1/fyFMgikwJFzW9 QV8y1Ul/okECq9Gt1cwc ohwMymUKpSxDsCb0EdiSWEXH7UDAWANOG9JEo+IdeUwr9OIz4YIUQov0QJ326L19ZAA15c8vs+8CBnpy WQIDanZ/O7xdnmBDvCCd ZyaLBvDkAAdrooBq6Nir1ibcZieyVgzyEMZcnPm/v9kE8Znz6mCWGWIfGyXQg4+tQj5xFyj8PSxJe+7Y Z3BEscTP34WuffsGuOam WQ3sQKsBk1/xx6kj1lOAs3R7mM9sRE6r9n2tO+lrMoVUOpJJflUvyTiA3BAmeWWemPMb9cicNbIAKWgM tcGt1NBUNsQ6WOQWfHIN n+5XeR/TikzmA+Wb85lQsMWhVD06w/nENX3Q3UuxEGa/XiRXKSMNpQbNthxrLti895W9tBtZZCsX4XsV RCFEBbXQ8MOwkoBENePp MRD2KUFdbNqMGoft74XHqIw9h0Mu7IgRRjrip3IILASdnP7W5Q8CHshlmveFvRXJtQfFyGmc8Egbo1+J eJS/GjqRJVIUPI/I6nu6 i9V0z0ARYtiHGg2916bdQpQDlFmYcfRDUFaf5UHNfqjCuKWwxnJCWB8beT6z2htzsn+gZQgtCVQsmRJu WWYggBrIEyBAUubVKtWT cwjdiuZrxLSZse0hlnLbJ3XNE06cFgHOXcGYA2stPLzi9zJ+KmTav2gWKKZYUKcZhRJVNU0dYiL4Mcuz dZ+K/uXxLhNnBb2Chh+R wT8qOx/P3QCx9lVLzVR5cJbRx+xxRcQ/xVf5IYeRxb3o7dFoi99OXE8NcZnFLxdHvsgcLuuqsog8KNy5 K/68tNBAR25AL9ayrTXD RYgTIFCm/RGdBtAsU+/YOksDxWjOyG0t5Hto/efftk6ti38vRzDveiSij1stnWeoMZz8a+JWaWL/0PCK Csjjc4/NYDS//aw9Aqix Rk68nlznhYvjCOHwdI+kDj+Mh8cZ+R5lGIUd+/8I7pDqS9QyJ74vtNB0dFVOt/1iPja1j6j/6gYSnzpC UpbvVLG8+wEYBL7U0ynS SKztI0ErHJvFnLwL8zE4L5XgDEBsAgNuSBMq3L+pzFnSkwEr4UC0D672PPQxk9XpMZKDr2sHZVbTGy5J pndzDDDGSsRHsiJIw40X 2F9c2o8ggPxE8VH9aYfKEgdOb7C1eXA5LTDT1B3zTYFyeWWFzaAfmcc7lLd99xTKrOHqQ8co5ExbEMya X4Rn+gfQPGnjtuER/Pmz zDUQFrBNRADVxN9xbADxaenaX62EKHEAhVhesif0aMpf3HMgNSaXgkNoAxdUgbEjPflPLQUYKFJIs0Q9 TcG4hIZBwW6FfeNUTu/S unSBNiqCWRR+ecoZPgF4xokqOB/CTmrJVhPaU2GBDHOjSm9VFjwiZ8ddFgFeq0aHZdTGnTGVTet3ToFx QZSnXzTMZkZY5TPjX+aN Fi9GWEybQCROBJ73nBSMdXzVF8KTmZ3FOFadKcTZRCM1FyncS3htHvowglhwI6ufSZoMyOVd0kESHn1D dyKyGJ461xuCvA95zIry 1ExZMRfIOOVYUTdmxKt/ZSoRBmimUIzmLmCqFgpom+ZV47zqOndpHIaAl+vDEkFv2qQ+x86uBz9fvODT h2L6QBF3qGR5GTJc31Ae FZjAgqaWsaAnVRm4GdCT1VtHo7in4OLSbpMbzD9Pp11VGZJcreecMdtyjfFRZUdMoAIHUPIT+qFHJswi 8LqzIHvwm3zEmRbeJ3EW G+uIL/PLLFfuTjO8n8MR81h+r4nJMeL6QDzUaZ/W+VExK581SdZr60iYBr5d1CHo5UaapGFK8QL5ysRP 9w6HxMjJl/Mu6CGp4sWU tjIIXL4PJDuszXSHLBLjA7WwzRCBoFwGLsWCPzaeIiuUIWJYDnGLYt8mcDSYurfRduhZTEBitS1UINq8 XQNuEQLicxSkbNQgA5jY /YtMrb/YFGWg4Q5EmWIDU1YIk0Rdb3qPeN1rwgMmqkY1BrgK4hSTPtN17MsbMldZeBCr+a+kDCiO/qQX +5WYVa4eEnQyLLeUxYlM SV74jNO8QyqGmKP3+wpMj5+g9d2JZehPgx55LB/co1BQaeTCgjVprHTx9hWmx+6KOb3BoiRPXE8F9HPG ksJKiSEQTLReVGh/y6Ex yz4rnuw9G1G7X3ucsHq0PXkmqWflOwvA1bNDXP9hr1QrAwtFUb6rwwSX4APGQGLp0HtzP3FGq9mcEM9o t3hrGHOaW/nL0R/HbflD PvRO11foh0Meoo1BYNzMAECVOd7yxwubyDqriIhi8kYpFSYBkFbOsWXq3DBZJcp0BsW0AmAJE7nCKmhP Dpg/4qI+MAgolChfYRFE a62PDAyFMXUsUZKm5RdCBf+JBujd67xwvBMIyfYhZ0KhUZ9+Omnn+jPP/+HHtmspQHLeGK5eoKdyl21J HtHKNsVdkOxavgKt6ZIU dAOPQ100aO2CeCoW+vEDZhTivpY9ftUDORncfk8CtcdxZJ+DkrCwrenVUdtqGYBBZu1bbgzkNJZkDmkX Nt5RqMm05zSvOfOcCvbN qxXAuILuY8s2ctZyaHzJlA+X5nENapQkETHBpE0hw77ntsZ5a065Q077RJWAXgkZ+KRMVBNTEVEtqmsT nL7wfSOvAyqQ7oyVoPyd TFIFNsT0lSNNJkmsth481NGUB+MqvJNYCqv2LjABGgYIAGn4XSFTdjFwaABF21/0py1p4g297AXqQ9+4 87quHwXew2bLeLn5ePi5 Ej1iAVVxbBHKq2RHSC9b6fxPFOOE6FgZ3wUwTJkKqTTNOEe3evtzt/3Z2BXYUtwPLJS990rK4mW94+/r UIWIqNN+SVi3Affol5nU tOmTZN+zKE7gGqCmV4gNaQqAshaf+uuu+vXGwj5MxIKtIFMVyyfH0mGK7Gsn7MKWViLKPEcgSYNlLf3a javpGrVqtS+fXsaPHgwC u4GyuTQaSSRzlUUVcJzVCDydMDKDHXjWLZORPDJjsBUf5PFyaNWn/qDUfEWHVjFI7pBKKiSBK0RQzPlQ IbxCRYgDMMwjE+wAGEYh cT9lcBPufME8cNuJZbLKEryGEAZXExI+HVKBYOeKBRzHYqQu4NMTQU+/BipBpPvTPjRu8ppfRB2dKIa/ Q9L4vePWBzflWRTGiXFL UXFixenrKws+GRzx7hW8kTAq3pue68m728ssno74wvar8NVB38NNtzbaENMceTvBdILaQEFiYy0hKLVv tSzZ0+iSAEASi6d+ROPB Xqfz91H59dmEx2dt8gG1zBXnLnkGsOj6FRZLxYbi5hhfogifPvJvlcSrb5DS8+evvjiC/7SG/Gc2kAVD 2UvS2AUDbatGv62uHqzr uqHSM29dZe+/dsoibrjzdbwNeoI53qOi/vvv1+GGSa/8kF7ZCo1s1yd002JKNXZMLdJd9xIkKuuMDZYa Wio0jUSZEq/EytWrKDu3 uoWQ5Xcc5/+mSpWrCjDjvjvf/9Xil32xDDKUUsYRn/erBeFf6YrXC33Kw9dpUJUi29RcFVOn1QsKUoQI 6XcyFx2EQ06hPVx8REf+ kpPCr4PL7a95Jhnvx/+qT20mfD0uKTjNmmruQrC9lHPz0WTrFnrz9B69fFX8yrHHhHFIXDgU3n1QQDzf mwSkqPiobxmh2ucRidmS GKLtUYYji05sYDvSKsVOI31KynSGVWggrOwlxXPJg7a+QpQ7s6C375Vo1mbT2PBjTEFhJIjgmcBMikS5 OrRowfVrVtXhUiOh/g65 puktD7GXkGIkJlcUMxvJD+++KLyuQcvFrSPm2++JvZDcMey23/jev/9/oKPsUbP18cRVhWoYqPORYua9 VTIO95++48hP1cDzsUzL cw/y1vS3Pt410MatXsNrj4xSdaYROCqiJjxyStM11l6dWOAR8mWrZOSLhiowzfcmgsicT3sd3WdYxMWU ETYzH/QT0lOaIRVsYFDr 619zfNvf6TiXKeIQUYIkpHv366S33MT6HwKO+/bt0+OxyAd+tbyBCsNjArE7KNaKjU9Lyvy29CBdVYAQ 9FKcf7sGzAwWMwVwzTIr TJlpMN+3Buc63//+829s8yrGos1PG+OZj6dHIPATEeMVdwBwBDUVHn7oZMVig1xwf+COsFl9O108XACg CEi8yklObkMlTz45BN10 vksMU6kqfUWdnatl0+tUrgHx+Ie4jfg/avGBvh7pQPTOcFZbl18KxG1p2XXuG/6c6dx3dL4V/7880+aM mOCNAz3YKRfa2750Bm79 brgDJymvZmvykemvFZUoCnkG23NwHphEyDbI2abmNS4S5vQc4dljADzdisN9UTr/fXXX/PUkUgYK69RU AdeETiYYJMjR9LP2qHDU 0z4DEnxhqCYC46tlksxk9/MeENDVEt5tWeibrfy4rWbdb23tpWc6fOvq4apyqPuBC05KDL4h8ky7OACd 2uRaTvqFq78Ahd1xkI8P ty8fVKACHA5rJ/mo69mLXfznDmYHo7PR+E9wfuN+75j8qKphwrYG8kq3pUtWBmOsbXz+ols1VBXFD3hO aVwgXgpvUKcDAJH+sWJp F+7UmCvhUdNvE402ce8hSIoMS8OtVd8g4xLJ26nzDqeLItsZ16coflYw6VqbXnAStEaxTJGTrGjH63i0 j2ebkmPCn182zgGflPGh Rib0KNSz3wfols71dtdnjQcT5++3eiDTXYCPPH7iiodEeUx+++/A7cTZXAk4OdhjYrgplF6AN+kdLg+I axs+1PxECq6WiMlfH3XT JZUorXsjAVhyQSeAPHRuMdZDMQNyMbEWZBZGYrf8EYDsfeVDQyaVo3d0h//fePGG2+K5aadt24s4pvTv OYrULTJ7EQRJwmAPEaB9 ik9jshcgP2m5F4qI6H0OxDHBu4W5cBy0n3HEXQc02rpiNDwtl3QokDJW/kFTVTON5PhIIhKqOFwGKS26 mVvS6oadvvmQC7IU5301 zWGZdRof7hBh1LLnLFCUPRd39854a7NKZGKFGiHb9/2Tii8355oIKizAjZwM/LfEXZDzGi7eiz+33nnH Vu5e+CJY7Of76zaQgVd0 v631VmbqdA/e/Aafkx4OugtIWnbjENCfaTe29Pua/gRPZg4dUqVLuj70AtuGAmuBZPboelYUGeFY339x yIJHqXp0rHByqMvmBSk5 C6bjNc32+7VO1b453eyio/ViYa/8fjjj1/1dlALhcYP6JKZOTRfYqx6uiKZBpQbQKwQe4n/IVnJm8QUT GCA9P/+++85jvVUgGiee +7673R6Vk4WNzD18iPEGwwhmwnHlEkNYaJq248sJ3Jl8gDrg72vVub0FCYAWcTNS/aLlp+KuRrRwpdpR TrNxeMKe6SWXFtBuyfQl fynituLjsKfUFbWMtdc4qawUYRLZkXMpyKb0f6nPbpwu7oKydADNb7Kvy6X3lBGGciimtPvO9nJRSYwK o365ERBHzKRKHtyGr1Cq a0Btjm8554lJuaofb76oGGw89KVLGevZJjpwZKXFamjXrXPMi/b9omtlkmk4qBmjg7/QCk4tYraxU33v vqQcMtBZcTUwXi3cki56 nWDdKlJfFNsLX9x8tqYoatQVVRyJ8x2ggILsbI4dpNDQSlLl17gsKzntKbuzkB2EoGbehxZfLFIVkjQv Ryhjgl7ft4LRI/XHUgnV QdVox1DXVdUyGRzgyMfqzltojnEiRVyW2wwKE/x2Zi7181O7Og1y2YHwVW0o9B7Uiuy5Mipi25UUFSAr QrVZcuWqdirQQvNERA8+ laPODlmoqytB87rg3aL9CkQdBpspUNq3Q5kX8pr7goztpepB9BKVqdLJq3egfgVfq7h88hXVqfA46DZL kCutCaANMjPk/fy448/t f3nehc70Imn44/wkGuo8rj0rZNwwOTXnyVMXlaobMgmGLzzSU4HYoOVvPIW+EJae/O6iW9kj/ToIeMcg R4ZR/m4w+ss6VIINY7Bl P5rHACfYbmsKMclF57hOgPwqKz54Re3A7srAvXewGD3xrMRlvSSNqnmxugLDuI1ak5x+y5bA77kiSFx6 L5UgTQIhjB91P7updGqj +rlXyopis7FyedERr+duPd9QWCII9s7gUKJKyRZ/gCV4x6Fi5cCqcBbdMGtBg3pdWhPOghB5TzlTOc9t Uda5dfKS51z9qd82On0+ fUfOv8a9vbE5b32w+EZ0913U1ezdzeZvhWdR+euwkcad+h8itWINRxb1C2iwluiKh6b71GManuXp1Cny b++0285zmCRrb3u1smEP j0jt8VBxh3Z663uX3w3iUKttFIuz0dMat91EFG6RybRcUc6GbuI1ywERHFlgNct1Np9YaHai/112wXCO eqUhk25EDN8SRCC5lcSt wZERFjgDZNG7n9B/7Af0AcgyZacSu2SxwMz7wQgyv9G0ZlcrgDHOBNFpEmsU1PW2fuYQeG5i9zADOY2d 5cQ/eD6N+G+fCp97srdT DNU8yqnVRN9RPlwwxu07i+0lEVVV5BhGHY9CgCyEk8zePDlxPEBhkZSRYKa9PTeTnyZRSlkejm78k9i9 wFKXHrhu68+XrE2C781J +bOF2gl9KumqWcz41n8k2MJwcZ87hmihXLs1/Q0dxj1XBrM6JGYnlP5SfhVIYISszYlClm3USXScNeea ewLXpvxOmLEiBHKZ/Yesenia 50dDgpk91+EHb9qDl2T0009ftWPQUFAF65RTy6Ir8HONkgVVAZiOb3eY845xlKgBVYtMa0nf+uAVYivf OexnrSFbld4gpnN40BzW UFOzw1x2LESuzTY91jdiWtYh7ti56k6q+QkyUVOAK1oSok/L0NQqI9DhzDAQ6NYC7h8a3zXQa/YW1D5g yrnWy97wviKvZvWfIx9d URLOV0qGHQUOjOaquKWeHtv+/JJ1TdZJRACxpViq4DSvgFsZlOOJlsPbjx2673jzErE8rq7x2h DXKM9w2mT862Oukv0+z+ 6vUGvblJuFJVgoRKLLyKAYWCemBeglL1SOUGhuecyK2kL3HRmGDwXXP/yrj9ukBOh9gEiyF7FEV5V3SP FpUyme+SR351WBXZAA1A RKCUq9Nt1u70ewrUg1oWpQ9usCorNbgsraJZd56C0eLno8PdsWMhvlEtVIMeTqxBea/Hp0OhfnSPObK1 RG2BrN1cf3wdlITfd6JB 1S+fGlyg5TX4+bNSWjbKkTStNdbYHJt/T1Cu1U+21NmLr263NOXoLpRVuzGlmPxydks8kFK0vXVTLE3Z RRBZIPR9yHk6IH19eLOd dSLb9pLpKjPsmAepfYUS4/PNxDCI9fzlnXGcCcmMleBIPmahN57O4+1gASb6lTkAanimirBXGacpVLb4 YXDhw/XdUH8tJTkdD9ST NNLsCagLDAYfIgRErUgD5jmTBbx0IinZb1q6ez1i93uA1KGMaq3oXgLRE1I7e4t2aeZcspdMZMkSM0ru C379+5Pmqf5fnWLwsobP PvHvrL8oep5NfUHxa5dpMNH+cuPul4Uug8bXZVl9mK73jwobzEvXVFYoDY69njtsA2Nq1cqkyFgY06iz UBu6cK4v4QJld/kmQDBi wKPdMC8mjeNrITZxu9pBdabpGekR6541wiFJZZD+rQ2XEvHwcoQRGO54IA7lZumS5drdo1TQZ9eZoeML OSUOuvY7bUEnOSdJvbgX GQon+avB2dF65bf6vXMyEkSwVjRfWpvTGca7iSwfpz17W2pK/cTwiMUiqnJ0s1kP992q/Z0F1mYuVUSF c2+Q6aXzje0LyXd9KDZ5 dRquvo7DtxiFUbTYj1OzGm2cF2I1Wy4eun0mFq07k0tUZs6FehRnqdTEMJDxsBECt+2zOlmwMPY7YxA2 B9V1UxXp5kF4c9g3QH31 oxrtT1aoxTNiFnfMuGHUTYkWo1pIV55jBPVbhZRaUANksmz+JXLvojNpRN2uYyPEmB9VtosghfosF7cJ ASDdZjHA0KgdJOHlJ0Iv Ak40AUuensfzmKH4q0xc5r+Cu2tFT9563cp+uwtMykdPZEVhR1R3RUKJIQGC9jxqYSTcARiguVaPFIQs iqpq9BdhGj/jTPtBasva YjWoc277flOY0vv7M2h32gmKpooxNdE1terwy9CxZlEYXOGNdFbaGaavTE7QDqow/wMtCWtIUEqf/jhh 9IPctOyQTeRrqjRrQXJD 2jyN1FahGGzowFGt5RGfyPlJTw+y1DDsZZMUDWT5y9OrgVsMHC/awVfgDV6fmrYQAfFoTupdXdVrp9z1 7XlNfYNJuvAqbflCddpb VunApLKV6BBGNl1jXd5tlYE3Cz7ln9dneyRlZA3477flf2UKtn/o0Ff/oZZMgOzzNjRTYHDDlbX6BSLj Mp2VvELei9YTOcrBS6OA 5585BPsCRJwle3lW5iB7yQzzWeBHlWoDbIgxMW5rP71/NTenPwTZrwwaXWG/UGU5ImInbHlPWw1Pb6oE O1n78SfIasswxQPPfNJP t6UgX0LTgLi9dzQMkpNRll7iC1WW7Nzgd93ftnw0zltLDHjcZzsGtMktmk7DoHfhRnhWNYc7jybg7lLY amR0RoXI9bixPF1DsTVY zBDGPpktz1RbhMfayDBKDqXWSeOGSxQdN9Mf59wAJiggrh1sJgPoIUZewb6DxODoB2h57PhTZ6WzlcXz 5R7MOWuc/JgrjmCnO7Bl I51ANBS+dsfM2lUMOtdq5u4Nz979WD3WeJo1UfAbISEMcBJZ3Cx2bIQZKAfypoChGQl1TswZypp+ySwz QTrqYsxyJeUxWexr18UH MiX63N0BgPBj6am0cdkoAFTOt1jgoqmxqGcAU9GjVIeXkSwyQmu7smAvXF+knVKNjem19pDIjZnr8FoW 34LC2GIx6Hp80ERsjZ0q /322+XW09+ZnGivwMqUXu6A3su/6IiUnhogZhDS6X0ojIQVt5/ZYzXT9/LfKosv0z1Nfr1zGzkk1Yglh QatcgI7E1/We+DJ/Uevi WCop0g74TtH9vywaxgRw++6118hcu05VyU2Dw3IVzCvkCxI5sgr3mjqc/wQjVu04YCMIX7Bn8L99hSEl YXDeM7QCrW5LYzpP9qMk MDSBqsAqdxBKUTXS7AGqfJw+KnN1mhuMnwwD0McdaYblmwZRVHjw0LVUXtnU7gWcvBdaCqNdsc4L1Bpe WyZn2PVSe14LNuC12yDT faVfll2gezmGL05eCKyN4DR1ywkcc3HdAkwYFlu3NfhzYkZEtPQrIfJavuh03ktAvwKb2/e18IgaXjnJ q3w6c0mkmqmCGUxHpAMU lf65JTCddqrSLAu7aZy2NL1oI4563nw6UTwjOUF39w74FqT9iQq766eJDCCVOZVRl0JcbB4AwIFoFpiG wzodcFckdcaiNcCRC+ei UdHjcB2BdzAT8NCR8uVVx7KK+/1sa+50gzRbO6CvERvS3A+NI8KjLLfQ7IrwZclsyXbpoMM3GxO1hYYI IVbJlXWjT8S+cLZ8737Q vw+uC3o2uBZmYI6s6vxXCCb5CIo3jQ9ZUyO65wc2+7PmYcdAI7mROvwkkOZICx3qek8fpSwkChH9+KqU KGCV/dLb6ywoos2xOgYA RvHJreM6mMsaMqiDPzePOwbL1tP7ygCcEQsYK1iuSnn5p6gTtlnNR7WekyqKoUiIsFeW8s4tcw0F09z9 bDdvV1xWGnRXS4oWvRdL EYYD8B+wUD0+0LY1FzfZxiB7djWdTRXPFvIg/Ja89IO/a/s0wElaoW3hfYi3s+TS3aadQ2WIGaha4zM4 O9RVFrPc0l2RaAE4S0NV +O8y802bTLNoMDMvtClD5l///1junTE9EYCY+K5N8wiXiGsr/epODuPRmzDhauOcWj2r6NTEmhlpzBdB z1xgJTDvIW94jh+4j7qF 3KczWGgnzPXmb2Iv4kiHQRlCmcm9GAqZyQWAJ2XeQrgeQbeMQx4N0mw4xaPSvjBcLYI8K2xZO8ywQVe9 Zf9HdBitcGCoj759WRvO 6cmZQ080dXQXhPqK46cmqDrUSyZ4VjJF7ir2ageZfLf2L+tzWoRAmBlfSK2f1H2rkcBVcr08UI+gxVr3 UiIZr5n97RdU82RC7HW3 La7MJUFgeHEnr8VquITtb3H6oV8NIgwaihmtwNeRD+F8o1f6Nek8PIFVMIkCPyDgDL6dGoFOtOxABVa6 1awx5Srl1vDhqGmZqtd2 oTDEBQTM3WAPLrNDpQGrXEOTf+OyyaIWHQSlzFJEgOOpf1x6NcDEBTpdKkOSSKwOEeht5VJkOZGB1O8I Ui4xUFWgCJArsDDNfbZA CpUDA29PXpfCVDfPPBmEz0XEzlyhDwtjmULRSC2oDPyIVQXscnaz2wrVzdeF+dPC9q3JB3e1Z+Ia0D/M Moy5QxE95vIi5I7Sr9eS KTJr5GelY/rjmiDqyAkD0I59SulhiwI9pblHSodZ+4f+qxFK05+BDqn5omjJIFyMy6wUdlhjXIpT+sbx US4wFEy2QlDAtqx9ulUN thsCqs24twi4zBzOsy6s9XEr3ZGHNx/we8Gn9Q+NW42oLfDE2JbkLx2w+MKQFfjvU9ZaMITFo04+xpMn NVLjLPDXssJyIcFr707n xAjWPyIqCew4fLtxj8nUPnZMDNjA5sKir/GdS6hDtfYbnG+rZpqm0gGzxBgg0fhaTARpna5//770hQYH 3WZ41POubmZTQLuGgM/G m2r4eG9f4bD3BXnmARvwGE77/gbmRIX48SqeDyp18i6uiU2oDSPmSwDnxSo00OcdJ71xTmeVb+X7YGJN cpcYNAtxhhie5YxWKh5Y eydRnOphkHNgSqW2nY+7oOzuScnj8/eTdsuVcYiTFRhVCTuOEa9ECT+O1EuhHnOwnT2OykLynLVCvQjW BCGYRjm+oEFCMMwDOMTL EYNxkUQh3HLlmELf/pUIgSEXDiQC0zRWPjLFA9DBmIzIZjsTTIoJRGkjZ+vZNHZzjV9kaDPalWK5bYoJ BiGYRifYAHCMAzD+AQLE YNzLXHeCLOcKFQhUoYIsUGQhaVJMsZQegXAZ0QXAYyANKdLQGtAGFxlPzoZYRTpXF5yYvHfDIQ8OPgAg lEIwtk4OhVcpVEH+fn5k b+/g5mnF9DBWwxYokusxHFRsRDQxnKWbqfKs0xHSibM0a6bmjAewer8pzil3qHAN2liB7gmr07xjg7R6 9xzD/Ag2rRoKqegUFomC OXcqft00JH+/GerW7axKegUbiYpcUew1Bl8KMxGMTJ6NxiMut7wTl01PXKqx5tweEy91kXF+bdq1Yp+/ jlpmoog69+wh0afo479A m7117746udfEy9v254/WblDyb3bBF0k5lpdph7kADpL7nx6F8sXbGnnE5fQ9kE5hLvAZa1F8+7I4fz/N JZJ6DUFnMvGMhEARtFhO YpQoUKFqG/gafh9X0tJ0coWo7VnyUZz31OLxr+cylidaRPnYNqFAMUAknCy36ZKC0iu9Davc1cRkdsxs NHFGYnZztyiDg6IUa2EV RiILZ4jmWDPAdX0Fs1ZZ5bxL9kIHKvfbpyEQDmVPp+mW2+9KOgOnwKh6yMTU8Ntv/zqon5ybHlJZ+kTM 1xHNOA1+/btjX79+hm9e uIkmW57oVSJ0UJLfa9FduLmXLM43+ap0L+GhVl4ag0r2h9705VubtX7OghNJULJfSxt541/r0XODV9gW DDQEIJYOoRPnjypUuSkc NWDnk7lAT6cM04WrbNnCWziqxNwOTzFVu86BOq8O8+VX3/3QeNxEov7lwYI0WzWMmqymcaL2hto9xnU4 Bo5o6MDoZRfkYv5OhB7f fvs7+s219goAznIz2/7IbXZCOxBcgomA6qDISeiiVRjzpUAkkm580pSwzeIAU0iaexXVhcdKcxo9zCrU VsXsmOvSrMfCfpQZj2pZ ue9Ecro7ybB90EhQ7AiruUKJLC2rv5ukPqZaIQbA9sJ/Si/7kziCSClU0/YaGc0oC7DLrctY1g/T58+K eB4iQyKw6gBj4FJiKOe2 aoy/F724ZKJ3UO7BnYJLRqtEN++VD6CTwKZAVXz1EJ7R+WI55cdTd8c+LHHHlMpcvLXX3/EiirB2cB56 Agyw6fTyajlsnmnevKov l/Ayp5NtXdFEIcOfx29xCA/5oCMZbMRC5Bnof/1k08+UTEmlSpVuurhIPzLL7+ooWSPcKXbyj3TTK+PK 89TV347W3tv34KFPwqpU EgWyA6vME4XA1G63Oo2dHrbHNYLlq4eFR8//ODvp7u9JkXEUizGwynTAnBrI9+oHiOUIkGQ7rj53IJOQ tNiNbawXvmBmZl4JLT6j zbXK571M2IXyYegEoiPMeXM6xYIj7Q64RXhULoyYO66nkUnRa0USGxeo6vDCaYIMeTgzD+u2sQkg2f6X hra2afoE1BOZO6Ctdryz HX+gnDdiGYojAm3qmnDxhJDr7K7m9015q4tJc42e3D69Np0XOSfTGgsT1f8S//8c+QSdRSIo490YHmp8 2+/BUszdww1eesH42mtF vpnMyaC5SVLUlS8uKeue//8igbzv1BGIecl1jFrHyxoTBNghDIduXujaotFtwGK0GgBseadakDzwNSjN IiWrePjRxKeyScbPwL13 TXm7BJ6sHazzU/SdGIu5Fv823lO3G+++ace4cfVyO2oaRGtamaqqbHrGbvfjcMsZjYkZFvbgWIfkqGf9 qFL2CPbKArQp00YcHKzD QeNBc/P3yVJefKKgEUbwmNQ/O9//6Bc7PKtVgp8/S6QRW0nW1LlLb/CmOdfTVaoyCSp3You65JCSNdIJ eDA4hBuc6dyxk5++KGxd WnM0GxSHtPx8ulbbCxz66rNn3Lfu49jM7qCpwfLBNiXR8CfFRsxhDe9goLjdXtfeHw9AuoVdYYnwf00Y pLIQ7GOED+DQ2RiC3uBC mAL7pxHqoQ8uCCDxhpD8WBKw5X5d7SpQHHrH+7/+sgzDQi3zA/20dqNwRUWMyV1//65SrCA6c6olsfuC iCHqeQaJKU3GWKfqBlDX Ei732XqKs9aMKJoHO3/QITI5axGgTDQp9zqTwfb8tzHa6CSLOYGqnma0OFxoNOe6i271vEAjhCZM56+z qUbZZWNAsPi65qRv803e 2hrGl274bla3UKOrvPSsJSPypIxfYpVw/Uq2cIIDSEYmnKLbb16AIq6qmlaFs+6TbWuYB1H9RSgfzguz 12e9/7777ftx/LW98sVE TRnrdiPCkof6FJBeyCgnbqudEZRDtyVpYXSM4mNGGFCr2xtWBr2+obtCgt26xKVpe2NBx5cwXPcUsUHZ rkhUnK6xXZ/b8bJ8MIcf gqLq8vwa8306rWTUu4CbTJVxa1sRcSS36cxfGrx4P51wZObffiZTNvrLar2jAzJu+rVpZGW95mljZUh/ vm2D1BuNAqnSWUpuSU68 jsTIKhHsP+OP17MUuWdttHBJLRGLzv7ScAAPoCM7fBjad//jYwVX78KnIZhXzba6o517uY+U+jiOG/wL qHRPMErvWTp4tgnaj8vA LXF326fzxBcyHtVjv3ktGHMP+5b25IL2v3QKu97ASo6emKS//zzzzKsQaWP+LwA+tj0ekQBaMyi/LTDS 7wXZNG8Kd8P/tYIdSn0y 5wxefJkl/o9HGI4Fri+/Dk2aaEJlgf2gt1yZRdf4a701JggeSQZN0giLLn0a21aVAYjeqc++ecdXou+R jhUltYGgwaCyNGxAJVm5 76rCul1ymPR5v1wWFD2U6pAzMiLNoT0KmTcVKRNaMDzrx4CujXvuF/+0j4NYmXVJ6Ja445BKReF13kfl 9xaXf/+/VUqE+u+smXL2 vzQkJzhSoAAHA+r1FlPx1/EwStliuBPllSeafDZuA1NhQiJP97ANK8PoS6zrwde89HwTAn9RPC+QaN3h T2G84Ptj/EYO1nfXIVfP jn1dsQDNj1fzKKFSDAbgMkrwBroeDzwoTETgCQryuVXw3thuvakFWsUMpXQqAHXIZidjHTJpSRRT1RKq p2zmLSZT34DZ3TuyO6// UH9Sg4VR4/C0kZgYurtGK44qi8Rfm+DwpsyYM84fMbfVn3mQdzx3cJGsMQXNVO//XLLaYlBjWuhMo7i4 jKT6rbNIhxLasttfWFCN 27cWprH3td9dC161grVv6AbDoaWzhGVZ/TLL7+GkO0uGO4v2kHFwXLCWqVcVPtt2np6r1I6CQID07IKt sHV/rlQSUdF7ZtrAHsD7 quoetDpjXlcV0vpt1hYmi+kOeYjw6h86y700pAW0FaQE19VJqobBJZd6UQPAhoKJyz1NbgKhmH0pIUP+ 5ZFWowHHLHI1J23GQcdm 2iMemXFZM+2asjIhvP0R6MFf0+oU8JdeIKUVxeul7Xs9yT++cRefpv2QhiTvRC2rDmgxSCgctKmMJcBy jf1WqDLMUsFoGuoHl4HC BPAB6HXyRvaWrCIFhFf2mW24Wv8Aw7o3xVlUtIzEKxa2wwEDqYwlrrNdT+Qq0Eazc4++knmc/ToURVjg ewEq6XKox6je+6KcQYsu Du6IE20VGCqAzdfR3Fz4lnPV/hyN43fsAqpGyVtjWJbyIZEmqUnCGZ67xQxmRMiNvG7PVw36dSgcmNG8 DegU6z711EjGfOI8P/v7 ZkyWNf7qyPs1SKBTKExaFeNwuHYNqblXZ13PTXjKV/Q3iaHydXIsl+TKsT6yMkfvYymywMXCPFcgOPtt qLxoGFxIjc60UiDpUf84 7lgFHe6Jp3GtBevTfmlWFkDcSlpNy7xetdxCcwbOmOxsmGkwbFs6NrvzPfyp4Xyx1IZUduFPmxFX26Qw KzA2fIfHoBBgd4QwXxiK 7Ak6dpi9nClJAj0gfAcvnwCGK9EB9+yH/pFqOrLbNzgn7X5RAlfgol8441RZ3eWVpQFxwl+wR3GU4m5S w20fFxx5ws9OyUQvJvPz Atkinson/J2C+YjEXGAs3aXabJot1jo3mE7z3kvrFzJITadjs7qSe0YXLAWctjGU9KDPVsNA3PRLk7M7BTmRFB EiFK47zJXXCSRKtSYrSU qzcvgBhmWcqUkWCjbFK6nXm7YexrUpDyvf6I9ACJCBJ7vgb+N6mgWfcncdFL4P6WVNdZHR4Y5GIgfNKT KGnvxlMe3dH3dTJeaPun MyTpunYQfkeEaIbcdeoSZIjHcdkxoIyqhSKxGxRWSnS7cNe/C3EPUiAJmimlPWZfhw3Hdi42l0px3jJN 1Nu7X+/qK1Ift4aUHxkm JMEC2hpNAXQYJHu4a32z+1M7lLhWAvF9AvqRFbPH4BdGDiRFCrFT1Yq2LLrQSaz4hXYuuCnjp4JLf7Lb GlQcaExgXtRpUoVWSmhG r0DhLdoN7/fdSwtCNY4vfIZqKXAkSi5CnXWvEEhY6hk9d1Y6zwFvNkK9PtxCdyCN/CBEBYalaygMJESz 4Tv1qvx5XpV6IkWoYSRL qPCg3257PupqeFTRVNEWpQacXXcCBUdPXI7SgtlvVpzhoVtdfoIAMtYEDPKkMQ4Nh7+mgy2xXj4N6r0q zv08pl2ybTA7XlhjQQMX ++kxoOBHPN62tEzXSe9hNkuq5PTCcx22r/Pikgmf47GjwW38TxJ98QkKgcZ3S9do2PLH1WWsxOVhmpI1 UI1fFM73AYWVwuSgqfAK 8tECTaLhpzE27vymvepS/uuMJjOId5+5sYfa0S1o5Do+cZsPpanxLNvRwglUYZoouarMT364fdTWLPuG Y4bcGbL6+jS1Pvj2sdBS 8Q7G/d53nCpKknd3sL8cTvm8PdPMGP4ENKMvH4c7CL5XcgP12Z/2U1b0+Q9mpZOwmkDeGEWbiil2VU6/ 8iywHjw6BqPu1U7adTuC vHWi7zTORt6SqPlJHrGo2UB5bfKTzi5EKlMjslhcSv9PxD5zS40AxO7NoF3LWvQ07vDG6ifTDBjk2V2f nRheZfagp4/4IuRxm4NU 4IpEIcyF8fTIMdBTFzZ4qhItOXj7Ge4HXE/5EilmklMhxKBOTxWf91+ji54qrc28z9mUAko4wRCbgHqf loDidafSpFducHBlhtCE P32qS3NBW2SDQFYUQ8FyHBV4PUjHkLtLB/M+4XxDBAuL9f6xRwLYj8AwGgPmskweP/y5fSdnzOGautBN O7pYP2mPXwSyFDdTX9Kz huutQDR1+aORBHyLjbixXqITF2FKowpU6zUSs5FM8TXGUduoAjlLcujikiw0v/OteRgLXrhv6596rwTX mWv8oqMoRBCS8KSpx/+K I/3Fk/mQmC/h0ex5sjmdaNBU8MVVw13V2yYP5V/nijyietYp9tiz0VueSEOslcA84RJQ9TOjXYd1hqHi HpX3zhGobLqilzc1mlQX FrIEewniTshDvPI4e+jm8S+pbA8dr00j34u3UCrTuyuW4Ofm7qkOjSMibL7VaE2bQAzN0ZCTDIwK2xTb UMHp/0yqbX0xF6w+1t4+ +23U/bo6qA3Y/JJWbm7eeasCQtIlTY56wVGBRfX2m8r86JcPgvBFUKAFbUnM6nDhl1AvibV4qOhAHqPw oAw0XKEMCECfueRwpAci n79+qeYJPyPwd4NSRjVKz7NC76I9053m9kgZKjGhNnvk/zFLSYt5L79H8Qjuplr3wgwo1uKJN6nMNvVE TLPnHK17gfjv0IE8gcpL WKTx9MoF9hnqOgB3ioXk4D4pcLxdPCOwJfzMmCwENn3poJGpQdPXktbjUe4fzN05HiXrnFrzfD82eGdh O4c3R/yMBHQsMcyqtb64 2atXK226qhZ813dyY5TcHUUjHAR9KXF89A9apbYl3SWmUBq+jk5yuRXR/sdQ3yI8sT7bf0l7DAjsHnHd YRngN/iCoz/7H7V2TR/O 4UxCm5s6V0xobtoNWzPggsrUzAXhzdrVmOuh/cB9Q+6LZEG6/LsUchU2XkvD53tCZQt3qYFRWGdgZSOB EIJi7/0t8qirgljtjPxB cw/R4I0XzV0UMh6sldwdXcB1JxyGW5LtEvpMrYwK0Z2pN95f1PvdH30FgEyABzmeBZ/FND8+/nob529Y 0/TNVVZl0Qspk2rFZTNh JqMLiBM+vkngIUHWn+wsGL+VnD7Vsa1GBnsaqEDWFQCQgx7jSmjHrgIZex4pyRCk+XisBnKUz2v98aSd mhmUWnECIzl5APNadRTk idYgDAMwzA+lBHRLUzZ5DwCZZoFWUeNlPDgMDJucPPr/3Xd1WWJL908WGWSCRjTPzGdDlND></span> </div><div>
</div><div style=text-align:center>
< /div><div><strong>Patient Name</strong>: <span class=clinicalNoteMacroWysiwyg id=[id number] macroname=PatientName spantype="macro title=#PatientName>ALYSSA PULIDO</span>
<strong>Date of :</strong> <span class=clinicalNoteMacroWysiwyg id=[id number] macroname=PatientDateOfBirth spantype=macro title=#Pa tientDateOfBirth>1950</span>
<strong>MRN:</strong> <span class=clinicalNoteMacroWysiwyg id=[id number] macroname=P atientMRN spantype=macro title=#PatientMRN>[id number]</span>< br><strong>Attending Physician:</strong> <span class=clinicalNoteMacroWysiwyg id=[id number] macroname=AttendingPhysician spantype="macro title=#AttendingPhysician>Sarah Coto (Gynecological/Onco logy)</span>
<strong>Date of Service:</strong> <span class=clini calNotUniversity [facility] Cent[facility]roWysiwyg id=[id number] macroname=EffectiveDate spantype=macro title=#EffectiveDate>05/10/2025</span>
<strong>Referred by:</strong> Dr. Coto

<div style="text- align:center><strong>PALLIATIVE CARE INITIAL VISIT</strong><b r>

</div><span class=clinicalNoteSectionVisible id= [id number] internalbreaksection=false originalname=Chief Comp laint recognizeconcepts=true spantype=section suppressempty=false>Chief Complaint (Palliative Care)</span>
Establish Care

<span class=clinicalNoteSectionVisible id=[id number] pharmacy graduate intern albreaksection=false originalname=Oncology Diagnosis recognizeconcepts=&quot ;true spantype=section suppressempty=false>Oncology Diagnosis</s nava>
Stage IV SCC of the cervix

<span class=clinicalNoteSect ionVisible id=[id number] internalbreaksection=false orig inalname=HPI recognizeconcepts=true spantype=section suppressemp ty=false>History of Present Illness (Palliative Care)</span>
This visit was provided via telemedicine with the use of real-time audio and video via [employer]. Alyssa has provided written consent to conduct this visit via telemedicine. The patient participated in this visit, noted that her home health RN was in the room however he/she did not participate in the visit. The patient is located in their home and I, Dr. Carol Branham am locat ed in [facility].

<span style=font-size:11.0pt><span style=line-height:107%><span style=font-family:Calibri",sans- serif><span style=color:black>History today was provided by chart review and patient report. Cancer diagnosis began with development of acute renal failure. Admitted to [place] with this December 2024. Found to have cervical mass and bilateral hydronephrosis. Biopsy confirmed SCC, PET showed disease extension into uterus, bladder wall. Completed concurrent chemoradiation with immunotherapy, followed by brachytherapy. Admitted with complicated UTI earlier this month. Treatments have been through her local Oncology team and Kyle. Anticipates a follow up PET in June. [...] originalna me=Allergies recognizeconcepts=true spantype=section suppressemp ty=false>Allergies</span>
<span [facility] id=[id number] macroname=Allergies parameters=ValueIfNull:NKA spantype=macro title=#Allergies(ValueIfNull:NKA)>Cipro&l t;/span>

<span class=clinicalNoteSectionVisible id=sectio [id number] internalbreaksection=false originalname=Review of Syste ms recognizeconcepts=true spantype=section suppressempty=false&q uot;>Review of Systems (Palliative Care)</span>
<span class=clinicalNoteS ectionVisible id=[id number] internalbreaksection=false or iginalname=Palliative Care - Pain recognizeconcepts=true spantype=section suppressempty=false>Pain</span>
<span class=[facility] id=macro_[id number] macroname=PatientPainScale" parameters=LookBackDays:All spantype=macro title=#PatientPainScale(L ookBackDays:All)>3</span>
<span style=font-size:11.0pt><span style=font-family:Calibri,sans-serif>The only pain she currently gets is at her nephrostomy tubes. She will take Tylenol at times for this, [id number] or 5a026xo. Feels that currently it is not severe [...] recognizeconcepts=true spantype=section suppressempty=false>Bowels</span>
<span style=font-family:fidel Peck serif><span style=font-size:14.8146px>Has been constipated, more loose stools now with the antibiotics. </span></span>
<span clas s=clinicalNoteSectionVisible id=[id number] internalbreaksectio n=false originalname=Dyspnea recognizeconcepts=true spantype=&qu ot;section suppressempty=false>Dyspnea</span>
<span class=&qu ot;clinicalNoteSectionVisible id=[id number] internalbreaksection="false originalname=Coping/Mood recognizeconcepts=true spantype="section suppressempty=false>Mood</span>

<span cl ass=clinicalNoteSectionVisible id=[id number] internalbreaksect ion=false originalname=Physical Exam recognizeconcepts=true span type=section suppressempty=false>Physical Exam (Palliative Care)</span >
<div style=gxwy-jwzyo-amxa:none>General Appearance: Patient is awake, alert and oriented, in no acute distress. Patient is dressed and well-groomed,well-nourished with no evidence of self-neglect.
HEENT: Sclerae anicteric.
Respiratory: Normal work of breathing with conversational speech.
Neuro: Alert and oriented, no facial asymmetry.
Psych: The patient is alert, attentive, and oriented. Speech is clear and fluent with good comprehension. Insight and judgment appropriate to situation.
</div><div style=uftp-tqrif-pptz:none><span style=font-size:11pt><span style=font-family:fely Pecks-serif&qu ot;>
Comments on Pertinent [...] the guidance of her local Oncologist and Kyle. Please see below.

<span class=clinicalNoteSectionVisible" id=[id number] internalbreaksection=false [...] spantype=macro title="#MyRole>Physician</span>
<span class=clinicalNoteMacroWysiwyg" id=[id number] macroname=LocationPhoneNumber spantype=macro title=#LocationPhoneNumber>[phone]</span>
<span cl ass=clinicalNoteMacroWysiw id=[id number] macroname=Locat ionFaxNumber spantype=macro title=#LocationFaxNumber>[phone]&l t;/span>

cc:<span class=clinicalNoteMacroWysiwyg id=macro _[id number] macroname=NoteRecipients spantype=macro title= #NoteRecipients>Axel Palomo MD</span>

</div>

<div><span class=eSignSignature>Electronically signed by Carol Branham MD 05/14/2025 09:56 CDT</span></div></body></html> * [employer] Onc Consult Note <html><head></head><body><div style=text-align:center><span class=clinicalNoteMacroHighlighted id=[id number] macroname= PracticeLetterhead spantype=macro title=#PracticeLetterhead><img src=data:image/png;base64,vJHLZx8GZxvKDUGWHZqLMyZMMDGVFVOdOMADTEF4Jr+UAAAACXBIW PQBCY9ZI OVHwAKRJv2kPPKLkutUGRUGZAs1G81oXkShi6DvRfhdqLPXDUVDSH76qIPri1O2GRRlS6wtUHJnr66hR OpeNLJIDT0gNOFHQJdeI OvrSSQ1DzEzgzarHJAxMb3hQFc3tZ4zrPZ1AVF2yLuopwb4XXZlCB1dYOvgjdyvWKDgSqWekGz0iEN6r a2xKGEvDzZtEL7BFXJie dYcQr8tWCFqDQAuCdgqLJJ0LSO8LKK4SGZoWVVzCiY0AaZfSYEqSfJoLmEdDIEsVYNbCNXfMqM4pzEfF rEWJjV8gAmpforkDJF1N nw5aTY2Dy57a6lvilFnt1ItGvV8NUszLOGbXvNneeYrOPM6wySxaS5zojZjCfE2jzLdAsHvp0LeiPU2v S7gZAGeUptaCb83zA3nZ xR5iIxqpft9kGI5Jro5oSZ2Oc6fbd1hYD4fVK8po48bbLEbBgEmNK5pBVcsuG7pEeTwHBZlhZJpFl6gp NAffU3poyukJUBvHWvni BOilMKcVJ1lMtEruR0xyuH0qRzruJ2epF6gGYOxsNHeSp8snjVeKUFsAcDqQ38dK0Mdg7Ezb0nrxS5bR qYcJqX1vKwytni6rXVSO V7xdFJ4lAwiZ55pIyCph1ShOxLhbW92UDSmPN9kS08yQlNsaA8atuM5f6CXgrE9Vqd8vZN8Oh8efz4vD M1gZA3hj44ubWPyRjUpN C5cODdbED3YNQIxuEZgGFP0WA61VoPtdL0cTgLtPRG6l1ULu28tNRWFAJ2rQMUGsO71g3Ssd5RfFcRfE RRlBMHllZ28w1AiUOXty X7gXxCeIVY4FIKmsZC8BkNaKyZsEFPkPepMCYY2Jda2HxRbZKY9QZQqDOozzVxAu8AiOeuMFTCuCRSrL NPwUVGjPJP2QXWcRjTaU PD5UvHjShD5dIY0DJF9NVQrgOWVXHNvRKOpGIShLBKjMHU9SAEvZeDcSEO5LeEdNoEwGdumh1ZhWYB1Z dssWWfyB8TiHrHqiSmiu V3lrQ2eCxBnuC2bOH3mUZ3qFaXamZ7wWS64RD1ytSBeK1EGYP0dfB8wMrdmEEq7EZWaSgFrBT0mBKFqF TH4UxuzKEo0QV46StY8N FOzWkBhODBfJCwvtW6IGeEeM1MrJK91TNH0SylnoC5uxTI8IKVaOwXwMNOnEmbaBd48OVY4WFz7HnnsI AWlXqEfU7G5LISjSoP0p DMQMBtJtsxabQ1pbZDhA6NlAB71IRQ4KrzxqQ7vfTY1RIUfDjItEWNgYkwiYw27MNF3REq7RrboFBWcT tVvQ4C5OEKfHl6hEYDcj 3Waz1ijoZyFc6L4mLXytLUyH7RpjG1ldo2oQSQuOldXKQa+TJgxQBC7hSu+pC2fGkDoQPb9WaM3O8D6G CJoFNZuEHQ8QLAsYjnJP HS4UbEHRjSmQMbrwnNpXckvNlO8Q6VfRxqAGZc+BDflnVpnbZ4uvX8nSjCrC7RvXG92CG0yZPN6p0CoI oJ3qV3sEU73BZcelL1qi B5eWILlBcdYKKL+VNtlBNP6jEujh3GNtrQ4UGJ0xS7lAOUyxkJrxMEpBlRwlBZ5zOirhwD7YM9vQFvZC RF8tRKxaEngXhmeDfUjN YO9HGX1TGYfUIEpQZ12HXi9XBYhSUlgKTXkBRD0KaNpb7KFgaH1s8wmfp7nKmBsBl0dXN0sL9IxRYwbZ BgvQJ8mJqxnMXRtz2DZg iM5h69geBwjxcBBF5MfxR6jEQLaWiEhBSywtK9xyT3kKFAwXbZeAU2yD6jiqP5trBmuWg7pUC5iMEP4W 6DpNxR2B6bwsV8GHwluf 3Rvcnk+XLaiqeZiRrOvg5JwcNK5yI3oQtQ8F2HhCfkKNGZ+EFgfbMy4tWVbEKRkYoQ1Y8hxUKGtNXWiD F7dOIAiNv4+dyQ0MINEG yBJREFUeJztnXVgFEcXwN/K+eN3zIU3QMLyccGLKq/jYFQehSvdRDSoMgbfqg5PEIfwUFEyLVtrJ6ab/ GU0bn2RkpanEgKHfhD/u f55z32Eta4+xNipTnWzZFKaIOcxXVUusZm1REhRHpTmjGYtZXkKeXGNfPFgFNvsIPgzUWUXzfEQT8DDc BqwwsJgMKUGrLAwGEypg S7pAmD+B2DZsLf/zijPmFaF4xZXliIIc9xRWH7xdo31WNjddKIVt/fbsT6zSR1PZsXi5crAZh7x3vi8G MNwLIMQAiBIiqJomiTJx k0a/nRgBfGyVEbXQOC0xLjN41n0u+uqpHyGB1B7YQb0EiWP3xHJuv4RGMSpQZXNjLqGdUkA0xrKFgniI fq4gEYPNnrb4cEINTtfI g5N26RFPl77W5PHylnGoh0n64hfDwCvliJO9fKNLKRFMe1PLoLcVTnHtGHCn+LEEumob7+Z+hQWUX4gB UvBIbpGv9Ye+rEbT6Dbz 6LAj3tg+8ef/YdE9HsOhJPveaIIQXTdJJSGYZMafrp69/oLf/5BkMSEiRPH//XRrHMaR4bWIjjyjkm+9 bpXj+4lzLxiEh8o59H5V hXN41TUTATMzTtgVZo7lIeXDJc3lkD4dX89zq2YrqJ4P7TQL/EpfPmc77//A48cWPfYmE9I7paIbbTwc gcDSISws7hkcf48aatCM j926qS/v/0oIKraxkDUJCzcKRBpYS8Zrz3yPNw8hmKlxWmrcz2yryRisT+/v7//kDVmmb2bJK+48+jFq 3nvs6ZZfsx9rDsaM+zet nvJnEaNm/lzlLjaYkSOshwyIagLDPHtu8aYkK4JCsW7/BDWRk5B+d3H37CNYuZoKoxHg4CNj5pdarT9W rZCYTAYDAYDQRAkSRIAH WgeJYw5TNrBBwyHZq4AN5tDR98yVNZk5iJRa/uchESfYypsiP4SAes5zIJampk+gczZ1CfFIOsFTGFnB HjxST0YKqSGDqREFrpqB 8COsSj7d+3EMf9+sBzV4vcla14ltIEsdb3Ei4Gn5GpZxgiDm1Gd32K/jtHtHf3zYEdtSMxxeBd5/5men x2NqBen0xGx+1WrtvWCO 5erXpOkKYNWm/+EDhiIGD6sjq41/+W3M2oZiz9FCWC7UUtdRzRfx40Jo7M2uuPPEbJJrco6+McWNl87b domCeraFtAGQNXbPjf3Q rx6ipfZMDZn/s5fpCU9B1cvc1647lPEIprDRBtPOw8yopl5xb03ozZBaSwaXRCoAXNHB7JyA3jE4Wkpg WdOnXocEUGLxEHNWrTuO 0axh7KPxUck8oG9zCVlZfd9ucGi3GZ4p342coTL1ApgxFr3lGq26SZ3jf89q+Nh3XLse/9+FxV67te93 v787z7Cu0NqvYZas8/ft h1/uZc1kN89vUssUWbBEyzxJGuV+/p5rNa3vujly2hRuqUQViynhtzWqOyB4nhztgC0FSforXFOBNp0l OStOnRZcejshRTNpXTd5 QzDH+GP+o4e6+ff8uPPMvfayHeTuiT3oG0vBf3Moau50paSujxHr3zQ0Hw8tgGe4Y7mRp4pkSfEepKu5 V26xpoDS3TGFHWPmrbtA ZEy7KlRaVBuI+7SxYsFicXHx/g7qZsb4DsiHYhbOw5lQJm74wiO5qxTkwsIJywZJihe91NwflrqYZWvG lksJD6PgEFdKZk073GNQ Navq29V1ALcAfZ2faVOy0w6l4Wm5kb7GqaB+W+AFRYGIYS+GTmqnI+ll8erlN0Pgu+S3KwZYtMP3XTBq kzIgI6ICpU9vTiWm2+nt 2k0L4reqQ3mp9JQqRNoEcst026gR+cAfejpLqQYwgU10XxoNw7bWXbbrPqX+a+Bm1rRDQFoKkf4tnvDr vMtPf336T7ZyUAyLKkxs VAvhi5qaI9Gos2iBGjLl2jKBYDJKaQCpJg9MVAjPzCXcCy214+HRz9+EOAVBr7tU0TA5gz8GgNkTTZg2 R6A238SAmpX4X12U3PJC TPSWbDDGoJ43AKVS84txacB9ewRpmpLhIPtPuQcv68zfg7lvybXzC80DyS2EvfFnw2Ckq1aVzBi1s0kn 5eaLH2tSLT71lwRk3xJW uo2AzfrwmLtWCY/DBXCVGf03Orrr73di45UnYRTvV8vZSrB1wfhI/4gvV4/b06zHVEOCk9An8UgL+9Iq 1FH/8H42KPvLXTd3xxAS Kytd358x4/nj1i/ZLVAEFjTrZlsKSVIfOMg4BDfo8Awf72XlY/R/MLBCgsDqSmpDMPUq1+hPUuy6Bh81 cVhNjqPjkUZYnz9h7sZ+ /HfcCjJiig7c4k8EsKPpDjoLzfJKu3PZGZqNy1d0GU6/mgwz07eV7+5FEMKYrV0wFAxhAOBc0dXVin2k iYOCfVYlO7g8KF8KWEfX NP23DHwOXwOsdoVcKKMPWbwXn35Ig8+/xJb7rIXtrm0fbinuVLovl7pn54VzP0GBj3+8Gmq233ZYrMuw nbCZKFGI+W3WWGAYJHaA gUBfGxEBCen5OBJd7vCYty5a9u8oVv8rJvgQJGqnMASxxa1bb72IombFb3hus8kiah2jBqeYEvdqFszC waTyy2qeAS+vWCFhQGKo kiStHdwBACTHzFB/KDjEnOF5bh+hjNEX5srob9QWbjdyViIaiSDJXqxWUzL3OPm3tHV1eGSpoTyonmY4 BAEIARAAAGERqPRaNSqP GOqYqgIMUM3rgClNTjJpCPZrtjTmyRH0r7B8hi+3PiHFAs4jHZcywFk8HSaqKvlb6zGkIMuBtlOrV/wR KOKZnc7ZcbfHhvJnFNat 5UcG50z+cGof9kkLt1mVDvvbR9Vgv3d3lJlLvaJHGa7YqmmnCgPjdqbgrBuMqIsOuIFRRaroog2upm84 rkO64wmSXXQE7Idhi5Xx UqlD+4/zUqoGrnz0Lb3m72hRapw6kuNCKPBsZHWjBvQSHWNuULd/UA3iWh3wmNYFugnBCKVz3mATI5HD WnpZ0+iWx5g3C4gi8Oiv vuhu0LXlh/viYphcPRju0xGGceejVseq/AIKl/Bf+Q3uVAoJVLpOZJC99l9H3BoqY47k/y5e+F6Cc4cL +keU58jghTVUB4a0b684 CkWmsMBPXXYnkghWzBx7klm1og98FQke2nlDjwVQeH0pRGU9ssJPYEZoOOgvahVuWnUD80+vhzLpqalx tlxux3m6zR+/S/jXpbxK tOle/omPf2sTXcq0HhkB4uZzreamGdAVFkm3zz4WU8/EF8AH6sY8/KJLOzRdSMYCTz9ZSZU567pLEk21 tJaP3wKzwwEcCcOvxICe nW/Uz36/H6sob27398/f/ZsyJmzi+uEA679aom54BuNJc8h9TiYzRpRupkY0TcqYzr/smU5CZOEHL+io 8t6+qEt8fMesSovbbzF1 tpca33B0sua1B5++ytLF2lN7dE9FZUNQF1KlQX3qx3PQuUAmOTZrYcY/dmEYenjU5f+oj3UUMh63QIee iJfRgpcHZymTZuBEGIRQ qti2FpWDLetz6ujA4g4RzwvQx6dd/cr+/c92NWCBPk/BjgTnXTt38/IDE8iO4B6baPNApp502ILCikIP 5dWIAQgIGCoA72JaVNwb V5lZju5y+cnwyii6bmUb0aV2zHV4z7RxpxDMB4IafleUHvLZup7sSidy2MkmgdS2+qtrtZZxoJDCoO4F pw45bLt7+3ar9Nr1SQa3 gDWYS6YJ9rnki0zOP3PXBAHJqXmSQBKoroHZcThXUSujLkcDw1dnDgOtr87evltTJwKABZQjOWaNljDD E2TB/xbYEgsd1ZAe0aUu s6I6FrlYoa7C86b1x3lN/OmILHKuaJeWko3GHm40CwNgzvJdUwo7ob3p7Wd5dyIjFsKLasUoz8sOpi4g IS0Pj810geRxr58pZwDa Zm6bShvOenP/OVy/595qj15gLkbbulcWu2GyqcJC5ac844LxTteFAD/L8GbHGTcutu0mg7safKWI/62f jdUl0hM39yYu/0NRtbAw dfQGibC403vUDhBS1zCWtxjj2S2A3PTQH0cFu6Cp5uH9Jz2ziX693nCe4xOYPIyer2rCLzRtmUflB+UW qurMd6aPSn97lsl+gxZ8 rhO1u5gUwwiX5e7ZDVIQWZy/dYezQADGuGFz0c1u5ocnIiVn7xbCQJed7Y+8h2Sf2EMPD7Lwomri5Zup Yei4HwiVDNW+92D0KLNi PIfXfghLOXlQycICmlR9HfUx6szAXT1cfStZXFUDwSkbN+TvDavt6qAshcCuzgup+7WzvwBTPq7Kmvx+ UiM8MdZw9vMkSZN/wsEZ JasL4sc3RZ2pcnHdH6DAM7qOqAk5E//MZX4vcKPKcjgxgsgjBini7FvZdtYZODoSBAtoCvUaNLQDGs0B xUnbCsk96L2zQ6RDmWQb 0uXbd+5qdCsRqQ2iCwrkgGeV6sIiOMO8XjOOuOoMhYZu6GUh9Fi1erhzyyEDZiRC8Xk4ZDwSEkBMpo7M 5RMX33Pwn6+A3wDsBK9L j7oH/xlfZQBN9af966cZAv0oKfZySumLWGGTrMK6Hy0Jg1+JtQ9HrlRe9DIyXBf57r1K1lw3rt72g1EL e6045CCOomme5DP5elXh l+Uz6u5OzW38yJ+N8BzDHnNKUO3SabstkQhsoNzL+9QVQrxnNkKWNZtuz4+Rcv8HOCNKVt6TeF24m/3B F40yXaSAfoCzeR64EXTc rLd3uvhxhSRTShWmu8S9eFKa85Rb1FQKcTzXiH8XLEarZ0cqZsU6Vgy1JHeCfcohF4f3kGnN+mey4Elw pN01duZHdzMw8wsAYrtj BI7+3pd+7xZqUtob36UELwmxtAQDh0PmBdXJ8wXDWLrr84ziFXrKl3PPBEIcURPS/Isxv3HWivMQdHgZ ty7fe/VvHLLswj3mc9Mi 4GzwF4UZLpqtAK/8ZYNndRELc42sFXwVuU3jTaqv+JopEZKgK9rjIT94mkW9+fc4VMplyCjyWmEZhE7z 9bEdpURwv6xo/b0QN+Nz mMZQiyR/GIlXwHp2SJhounJbYPhGmoJ8R7kjp66apXChi1AnbzEtox4NhDPrmh3H0AYXx4Em479X/9Kj NG4f+8+loXWYT7xTAdEC ynP371RdxYC67qhajCnmTSVsWpITyg4t9rXXaOXA/lt30LWxqwPt51y2f5kaRZwlTnaWNHfNfVp9iGnN IeEYhEiaLEILZyvCLvuv WdKinstXgZPaLSXrwiKvfAQufXba1gcZuuz5Dpoqz7wN86plBny9bYY3oSelGaTOf1x8GzDY4DPTuThD eFNZe5xcZrAmNM3Js4Vv SMUn8T4iqL7o9paoPzy4o/1Skg4XiFz1AlPSCEIcwWJPC2b+wRkNSudilxEzgbURuUgjK4Cqvh0rLGoV bejLJmFLGGfLEFTo7XWz WmM239tOZJjW6TqM4feLD2JwKI+ZCFYhS3iZombhnkENxYeFxzJXKMzq1pkkViOBVkXmzJfvw7yUJAWF 9B7Oo88I3LN/yz6q/E2a XdrcUD5UohhWpwK4nU6dTgCogMZ00x0/7K4j0X1qbTDTRAkdP1J1qO+XcKZVFAsUINkFMAnDDbql4VSS jmX47LAMyy25gYQgHdrH vXLXAeZtxR8mm9rkucH8I8qzqdfBNQDOIOFptW3Px8AUbFGSA2BTGKRQQhsES5FhVsDtaQ6PXi2K9hi3 hCzzrlXRLq9OTQWyGsKY KGCb7Yk3Nta7ZtEajjKaEEvokQchq8kNNzbFyst0e7wOyiGJHwk0Ni4TbNAGZ554BjOP32LMuzPam2Ic jcJczNS+fPyLONZcpWK+ kecbzDATZcVS9YhQKNNQgGizTmgspTT56VJQ3N5117FL1z1NB/j62++zxsGLy2zNBjbpgYgzvdQqOYNV UbCiiFZC8o86Lraxu7kS nmTCLmsf0WmaBc3G54FLxREDmTWQkyla8YDeJbVTKVdY0apngffqoJH89qhP4jKLE7hmpEpHKhxieZ6N /FKJqZgjWJv8WtDRl0Qe 0TAw96pNk33TtYumdWV+ed+U9qJ52l3j/C18LS2jT6Vz1WCKV/PkTuWcas/Rdy6j15D165eXG+izx4jh ZZqTd5jyfmqeEFBVjkhq XEmYw5yFK1cWaEhVkvtV9z07lu8xjcUXlGqMmlENrwD4BgvJBZq+ZYfCtkVykJOPIhZm9GE0U5ff24GN QhpCjzK81PTWHgRhQgNX Y1HfWhGXC84i57SCCCrzxH77Cb3g2bt7G9TQCGabGQH/teB2FwlM6vAFAFoxvedCmGZwnp3WOR4MXQpZ uOi1yKmZQ42z+Pp+ROkV A3lfAJUzyIDp0WjMF0fEKO/HC8XNx4Rl5WRgba5JAfXFkKjGRKo8rrdqB/6lbvIy5YfBAWEtgtf4h9am 87ftPnxNNfdPXc587DF1 +Wv3XMEyfcyWSHf+vzFLPb7G0OH7+6h9wRg8BNHrM0ZLBD8vHJq6uBLb72wYf/MxXU5GBZbtIEUUYVb1 xkVFfo7UbhlHTZPZZ6Hw Bernabe/Zq1rdl/JIFQbPRjtVpPUJZmr7//0mJKRh9IFkYw7h29I3ZmJy6t3nlIxgCTYmkc/cq15ZD4zokct S8GiALUDy8DW964vrHls 39SzWvhM0K9pOE+U8lquWiVBLQ/CjFiebjazgjcYq7SAeOytNXnNdAfrB01q5bSzKxou9HXeqDhrQcxu 7Ksw8Pq/5BzC3qAINZEW UASCNA/PXvGTuQVq7NWsB0gxS7ATpaqqaDhmgxRMyMBOrHoGZA7+Fxz0Pd26m77V86QlE6IlEh+cm7Kv OcvHj1qoi6vO6b5vXOR1 xeBEWrmw761i+N4drIuO3c/Crxxj8fTuDqrse7mMCp3sEfTYN0tJHQNLZPUFfL2d7CnZXAib5QSd1hjG cXCZ7FXqDdgVkxbDH33F w98WuSA8y5ZzeGfDu/2V4j2unXrbZf3l7iqCFOgW532zXc2AcPs56pLrvnlcKvA81nPw3e/oYhEonbtg 6Zx1i0ys4w1AfSsWknxP FHzC2ykJZ9Qk40CCjbSDeEi5QV561X3i/ZC5IAeQ7ewybnD0Hl/420RSIuPZq5Debe6fW0C2kIOIgb3g p3/Z7fQHEkisPQDluY7n nrjGocMqhVy8Gig1ki9wvmuzTxjoBaIO6bSLAFCkhO7lYtXqrqe175f28lwBTD6/hgHybLLXI9NYwFHG RHir9YcdeLg5Z9TQonsb 8r18+DVNA507gOlzNwKGOTkNfVyfRTgHZi6nlM8205TEBuiF7db4dHy6X3ws8LxvEQkM2YKSIjRmZbxd RnppEisTktiMlJGjxu/8 8/dPr6+AO78lLVVV8176uqvbGpMtiI00+pq3AqbRLpcEjrio1zyvwFe7PV6X6ZruDSCGX1zk9BaaBVCv N+f0HpkhlaKreFJ5868G Kg1dNNB6vXlx2DYnmxgf3PkOTk51WXvcURnqV24nCy06aUe2dlPAXfWC8GWISFffhcSmHom/njypZOMR k3L5N+Nn/O76AKcvdvzl QEluIQQg2Iq1DlktyoBCEAqGJ49/ZNM3DGF9cHTFlEAf6cKDBW67Ncz4A989TKdu7g8fE5ugDBgTwWuJ Ne8ay+tWvVhEwwRksjlb 3QsEkfumCalF8d1en96Vka0nwkhI2i3aORwyhTHT5QEwgJ07LrwQkiKXfDZuU2co4aYfXy5GLMprxJ8a VCQnBEOaMEnHxMZ3Gld0 T57k5hnraePtwpzoFvq4Purs6Uz8bqXZZoHOrvRMk6wNuYSISFc5g8sjk8NWZp+AWbkjktoB6UuRTJhJ 7OgTAP4bqKG49bY+z7pd cKKpboh3+FPgHEjLcIditgdM15mD0d/tXdwxcv5HEtO6oRz4GM9i5W16zkyoVKnT28KV9/CWsCUBrDCw kBiQgJBkpxYqtFpxBWr+ 5OYqJc7PEfl1ghujAfVenUCcgR2KuTBCdFnK2sCh0vFG11yZ3J36/sxjr//CIMGzzMxymwREpgzi3jET ULeQ5AkdlAMonWz+O7Fc 8vcKFI6gOl+0/H6mzdyZA9sZwVdbFzvvDD+KA5EGSAExqIsWquCgrdpDUYDb3FBgH4nGeRYXTUb1Kg7c I7uRaOeXWZUPMlyFNHCh kRQEnUvd6B3BNFXKDqZk+wi00kkOkwVJwqtTnnn7gBERvA2/ShYwNcv0eIOhcU6ylCSk6B6Px1XlDX74 d7JJSFOoOLRZSEl1cwq2 QTHcazRaDQaGIM+7axCbwUVVGns3Ho2tTrf65sQeFBWLmWBVUTWE0Cagc1lPGzl0UU0SiJnnoQuMbEQh Z9nTAAVOUpIXt2GumLBu nhOAHiN0yzLAxJGQ9TW78nk5oixCTSTzPpu6It4Oyr+yajLhe2A5QW/FmQwevjl8V6zQHHIQpC7HdUw7 t52/gVgaOuOC6SZbRkQY pLUXvYnHXHuOYhxKvvGheayEsCPqBr8FjCodQUE5Taci7lrYXv4l2DGq1WL+AlNZKjlWqLCSHx2I+0hj jMHZywlshJuiEItOu6BN QDFRUZWFYnoqHqjfvP8uqqzEYDB0DFQQwGEphOSrIfrpkj1HqoTsjYgflktQCvMemOhFU4v9394q4tdo JxzAqrrMhUkywBBACAAA pgsfYXPERnllOYzGCMkTul2D+znFUrPuu9TmhZuWK58G/cgnYaoXkfFckijfpc1/XHMwMobWciPF85iG hrfsV80+XFwuR5APgCiM u2bWW27P3zoovkUhcWtXzAurr27H/xRTQrkBuW4bHCJx1bIMpXwFXO/Ql5inyx5xi6aeHRdf3mLUwoaG YSMyLZHEjhNrXZo1RQa7 VAzlg7EQcfEU7UwIOKzB3t0CUj4QDb7ead8PpY2HOwtPFQcUnW9jHPmot2pvugv4Fjn9llAAKxvH+tHC ATGpxHqHAWIpcCyYNHGA RHYYVvsL4pbyrXfUMpKcTTnpJzWUBIyLIqgyOt3Z1lQfjIMtaE1wlmuqkQJlggv67hUl3vXuZIUBUQpw RG5V0kTXxsjxCENLrnc0 MnFARqACnvHnvgt9e5AWNI4ZYk9e2rCg3GwQfG96ptI/GtUJymZNFD3sFEM2vjh4UvOeg4KMgAZnBgYG AAGPVGjrsTGjrkdqmscD QxwymOrMB4EaJdTX6eGX7vKlLIwyP2sbv1a67vS8+/SosAq+sFga3aIB79W/fApCMnTdaOc1U5LybPm7 SZakiY4/XtaEgEAcAIhH E8ujZUAFML5ZcG/S31g/y4dhFTMmUcKgy2y9Tew3Dm0ucOGrNjZPAbPjrYd9wTAR3qbyWFAIV95GBCQR msAJ9GYyTEqvle0/Rw7Z 7e8g3+iKomR9yceVd82vsN1cMyEb5F8j7hXFRGbnnv5hWXzr82+FaPXAfu++VhINZDeEGlOz8Z39BkS+ dFBeu56YET+8hZ0oJtLn +U9e/VEAqEg+dA076r9q1fBAwVfjs1jKyYuCBO/O4cgKj9vtZDm53NWrUWxe1OTqnPeZnlJoRPxJDPx9 NfunxWeQL0pnpXZ7rhYA hxm8gg3hTUiLy61CPXP4zeSwQV+YwO89bnqo1Zb9MS4Hkm/7uPx8onUbLyWFGjy2ceALZDiSG/Vh8EtL LtWmQNezx8aPiIdkhjs0 jKlZGHOSH7JZzs9FvLTxUu08am5v4o85GJGMhftOffTMNlTfDpC2ui38+jgu67PbzY4oYABGrfcqrfFL uIcT/9pe/livd7usP50p 26dVPnuLGBIRKfWIqLc9gdEIQJeLzjFPYsw+9NdrdwMfLrbHao52vYLK5G2QEeEFZBjy8Zb/zqs9fAXT WVSCJMjXwAJQ04fHY45+ DI36kmYsrad2K9oUBcrnmQyxU5bOwbnj7pAja1dOvwJgK0+43Rsu+oF66ICndklqji6Pnb4/v2dLxkQP clTWmKHo77NYiGvp+Z+m H45ZXtTFWXYOu2YJR8ASeRx+75TFwrWds4DpZXYHKKCARu4LKLIQoigIyUN7aGUTXQYBdD//uDht86bZ TpLejw6TJ/TlLBKfue6A J4jGN9lP+y4sYIrdw9SEhsijaeNLaLJfIRmi5YmcecfmQCG8IF7zH/uCxPikFCkqRykbBKsqtkQyWxAr fTJ9AJTLSYXKFwbPgs8/ Pi4VFnhn2V8vpANTnXEvsCtu7S/r8uf9ok4ne4CMeEbDKbsGPH2jn5NacEZElHIjmr0nBvDv/FSyBgAr LAwFkQ/frz0l1+uh18Hj vRDJiYMMPwlfwVUjpgJZGFsOfGViZUgAy9TXJb3YwaemaYZXHHOgy2UXcLRaAJROXZTGqJPrHP9Oulcd fsesrSwJGSmRgjTQ1rL8 h2O8CGBdRk9zTAWXeYAqWQDWIwD+Om5Acjkh81nP2/2qrJ5V7SQK6PSrKfZCbg/QeHjOVVfzzRhTI7jQ WPMjHD1r6hmyUjTds04i gleHreG3teakMDkTVRXmwsXhOFG0FJKiInE6XVk5ts1poPkvllQfGhu1HYjwmfFDCYMptykTJdOc0rse ne81kfV8Al6+tPFlBqww vFXzLFwCI8Ex7hM1Iu8EYlm2Vr3BIh7ELiIfmZdy47G6zZeVQwFOK6y5tFH8JmifGpWREUgS+fJI26M/ mHixMmTEEJZWVnZCkVOT x9FIIKtdKRsjPC7hMkHAfMiiPIrnXznu/++/FeDt3/y9/MYF0/QaYqIQAsAIdfdq+bLNxWw5GL69w6Lq cVqaNAp3rHzLScOjjHnY 3FIJD50Hd/ctl8fkl9hLLm0tMPTDRnUNFUsI3Lkt2gbr2eloXa6Rjvt8mDb2UrKVkMhtTQ1jOIW6hDLX yJu3+UG8taRKEHzpaJlN PJGcIztBtpSMGEIzeUcLHT2gY4sNkd3wlq0f2y+Slh82ALlK6OXleWJ9v+ScyvpP7vfowZpmBSicGNDF 6+rrRRodHTjJFLCYKCVC xRlP5Cf50L6RERRjl4+d3fhpvEUuHDbYer0ulHB6k+i1+t/ClV9bg2/XBLCSMqXLXdEDNcSCJkLut4BD IimkUDQqHHjeQsW+vrhL 5OvZd8umCP/SSly4Pi6+1kfcCPVTg32ogQRIQzBUmuQMTzhGN/vsJePw58S/O0mksW0l9d7/iMp9Uhyh i7E0ozUOBUqG957up8kB VQLTwPE/SAbrURURMcWzPqWbCCNMKicUOIXUbIWBHdXpyRUUFTIiig3NVVDtRYHXIozZAWJQdASAEsKd iBHUEWMnst9YPJOpEVVD CfyBGNEReHPKFhTpvQMKAWYtrz63Q8/Y/2kUKpa4+jHOiDCnLwaBpxOY0Fg04HyS9pemkNay3MyVPaHk 2Jk8zd07vr4+/aOM2TYa KfxBIKyaR1IBWQR0LH9oTdYJlmmqRUMBOBxs7jS+c/i8N04hncc5sk7L4dHclwwTP1JXPTYhk8JbQb6o u5iMHf2QfIch875tuIYu ep9vKpnSf8qlmb7uhsgtYts2zWbp0tY5+mKPy57yNFn5qMcuEdclXq1bPgVYCB3a8u5aVm32OBQCm+vz c777m2Ja4vPPQVzFiNY3 lvuLw4u3ak7n3Kt3LjXC145zzn9W88NAQs8EUAez0vfRBWBqn7WFaEbDt50zjxZSBQoVbSZn4AgeDnaN LyN2AupsXzx+jslxvyHS LvZySa28vXMtnRa8yLhe1uCCVlGQsXaeJnzqzSxDd3RvZdHG49mf6XvtF/fIcdbDZwH0C4gqMNOf0b3S MpSvTKXgmFd3KVrGy9BW B6htlEvDdCE6+4z17yd7+SBcnlYDZgs2EvfuobmYsATDO4sMz099HoVTmH4+PV+nblop7lzzthHStAZx 5IQ0kZGpc8c7vGU7l270 DUHA1CYY/V6/ZGDh/zK+rgr7d9sqc3sUFc/z5rUoVGHt3kfkQPB6T++6dS5c+Hyo7/5ptADQlDCys5+e uPM2FmHC0ftLRGJnPCB2 WgsX96/Q6eO/D6hReNPfkpTc2PoznLhNlqgTcbWv8DN1MIciMOobxVgmAaoCTrEgBnBPs+PHVOcWFOmT eO/aJ+bm/vj+AnmbXnMf 1CP3JShOi6ua/4waoqi9r87rEas80R32NIF91PS9OzlBl8dhEJ/Ln/z+g2/3X/aUZgJKwrH7k6teP4s1 9txcXG/r/ueT6MV12/Salguero 9w9Jp16IaCH8kkDi6J3NuApa9xg8HVYtWWZtMd/e/AfVnUg7pb1Mf2rFq7qFdLetJlARaA3lWIPpTDFZ HHWsMmip0ikJq38eO4fC ta8qLuRVPq5daIT3hJQkPPHe6s0/YfRICVSC50b3hCppXmiAaXNz0d4J+LlBqoPjQx5tdPBm3SWWo9ik HSy+xGRqPMZdGpKUI9c9 awnqlSni2EzM3Yp3bZdcNbfy7wuGyOIOiWZHN8PUqXGv2ij4pLAENHUyJAz48ZIFxVBDB7+hZx33Ou5N WLhVWc9bxg0tFteYzmnS z6+QEdzY2BOXK337aRFG8HzPesrFaW3rBzCck942+9h1iXIvroQid2l/ubB556QOddCXyxT3Rw4VJylR 1WYEG2ro6JmQPmqjmm5w Y3Yrbya2CBD82VQz112kCIUnj6LuxaZzvo+0O4pDp5Ax7/f/xL34zOWKdp5rBlEFXfDimc75AEIjbEev UbTtGkzqcxSIXIcd/5ci Smupux5XVTnrzu+ez1904HxUU+NWhMeHvbg/n6iOuwBhINTo1o9ni0f+Ixqt6JzVDQ9kkmKJVbnSrEtf LxhEEfQsJJI2pjAKcOkn lhBlvBFRr9j9tiGynYEzvp9egUOpvs0iteVHH1jDIzM5Bu9Ml7uUxf3v/ckKeepDP5YtKYz0+fbrHnz8 cFujPO2SEIKPZqfVSAyN V8SlyVJoRYoMWXv31SElKKeC6wfnOFBh/o8odWFCi1QYho3quWYi7bloPHQgCpvdOXVVvNy4dh2u0tzd Bx9NlLg7hJm9bax1dbyH D+rk6ROKNPhGAYKLWdi3yn5PcHwqc9QQz5WoFGxipn/oDQg2BuH9nFm3lb+bg4BUw45P8GrFSCrjDO21 4kobdLL0l5c+h3r3CCyi niHW4fhIrXvQAzlq8Q/jclNb830/1tWSF4wjd6lT8dnZTQIHI5h+0uUXExElUVEZFtKz4miHine2+PrO 0YqKHAFo3U/1bVOqEt1n xPzHAnde92pku76fJneoZzQyVyPvwxPhhtNv30zAOJj94oYY/7Ytr1v/359+i6FLIswvCYAA0qPvGJZV oDwT2Hfw7mSpub1+4aDB n2Fu2GhJ0eVGTaV5VFEZyUg9nQWgJgKrsfnett4gMHDrJgLnXU+/S4gyftl4lIZ2DDkCHvMhg46YzbQP uURcc91r8hgZSKbRu/eu ZYlyNrbosUhussPuqsnsfI8g9he5OBbo57/sVhcUFE/jHFGOeiZUv42OfHH2p2+iM7frQU3U6xLmLYYR Et7rCWsVzeiNhWGRWLLd uLo2uyVaJXS0IMw4+p1a/XCMAma4Dv5im9+EdMEHi1nsBh/5ys4Og8nExpvbBLAybzRGidWvsiY5Ow7s o9WZ9tfQvypMc82KEvrJ UJvEVEr6zkZE3QMiiMq8zpQia6rK44PRxoBdEWQ5lJr6u4gKRn9uKADiaWbLM9kOfe/f/tnIA61PjTSi f94JDjt4uQG5lj81+aNm +yb2Qy76dBbYMbfGHc/Vp9upIzyZ26f3OOr9QZhmbkwDgN5ii0+FUSncJzXHG9mYWb38trg6FYlwWjc9 T43m89ixhb6g63FEFxOY idf3FZs79esTi7gdhz0P/XNN/C+H9jVy612i4vbhRfuC8uHb9XSeN8SGdVCHf62w8EP2zE7kr9o+/v6+ bb7Jx5FGXDoHm2zVe2Iq asMgq09maClzbaUU+na32tm6WKnKzm7DAEksXsFeERdWzcgm6h28QjAj0Zqenh8Y4/Dzp5RFDkEA37ls htU+1SDK7Pjmjl0Nr9q3 ViZcCKL91ECz7jOSkB0hJvvE42Dmu1uN5dbK/f4+/pt37rN/OCjhw/4oe938h3rLZGF3HXd1Cop6/j7+ u3Y/kf+0N07d/r7+jVt2 PtWsSb7R2WePukHf//y5Uvzg+WAnJE17CgZZCGcTqdwglfsf+0j517wkFj9ftvg0pN5XSuFbE/b1nSHT I845BWI1Ziixcr4xHDDW rEMLber5uZaG3Z97kvNhTn26kFi36oQuTLzq/utv6/f/8e4Fn90ywOLCC1iqB06BdY1psOfg3uBZGXlV /UuDCqvm9A2z/Zsf1+/7 v76lEd8ybWZgHMb1Far6/MMzPcmTqQkSBLiFRNaEiq6xJ/Wk6u5XYsHmGO74JbKoZyKt2krme/vvsLT2 rwzpwwZKkSDcFm74xV6w TN++snf12/QCj5NEW+2dStf+D627sDz5ESdzleG63+GpVt98j+pDwnNWtj52pEsflKmavkE9Gx1zfEJU Bhz9si9tpYBSH1gn27rM pC5xAb9anQP2Aa11XMmgXRqazLdNvCB19LN4ugtoZeAhAkIVXGX3sbiH/i2kgU+Xn1y1z0TlJrQodF8Y dmMGmRMPi9o8++v02otj lQGo2QcKoVs59z913QTBFRo33FD8SWW9dzrue5CSogLiHrX349QY6hL4DzZ/QcO/Zy565TRdtZCT/Hww VSSTJHn5yMCq5Wuy8ft0 BreRMpvmfZFMXPBZfbifEyNYO9Tg0ZES8vhX/4H9x+wKvMRpKamxr+JN+36+UEfGQji1f5vf4Xc+S8Hj 9tzB02tTO4Ti4uKghGyP ouWc25lDekv2gxhpVc3iuIAf0nMskr0/ncue56jv47ln/bqSEncZyrQ6hS4ePpCyw73nDMeKRM9JlYuw 5LRyZs00gxuvg1QCrGkO pxpimzlvSuIXNWT6iceXLZIsVb/TXtGuUZKGYor0lMzPHi4i2hoSK1/reRPWs0wx2vv8U9nEh9LP6/Pu FNkC22wurWGBe4PTsdv7 fwCc+fN9/E6zn6GFWpkPM7fz/Wb7t24UvfQJf39CLfK5Rd3fgS+Ih8z+blbj+7xmdk29JDP/s1f7Ebci 23bu/csSHpXjGAB2q5Gt Cr4s+Z5SmXf/v2+nshUSA5wQymc/jz5XqWc3OtOvjwM7Mv4O9wR6lb8+oNRlEbM7J7DeBzfcpVqG4hMe vfXSzXDFrWmhZMw9eqKM vka1qy6psiNPboVXPbdzxXyY91qae6wUGcCAXqfkHJmLSaOcJLn1Xlg873TahRo1486d0xUc8BBHf8uH QyfsKIb27evwNo5P1lL0 w+DBNQMrFe/vtUsbt+16oNSqpuCVvqpMRKoOPOTVoFxAD8cddcdAC5+CEEnKvURk65eqfdiBQOAGXrHj dZ0LaiTndXuQsmugxE29 lifY9u8/8xCtxZigUqMt4+PBd4+Pg6hz63YU1o3sptZCXBTSLVP1GZYQ5GIXA0+rWWCxtb7e4/8PHOWV QGSJIUiEQCIxWKhUFhQO vlZOG9+EBXxGzTVn08mIYZH43gHMofWyYq/z37x/EV+aZjQmN5mtmIR+t4pXMpa5EuhKB206wpKbp3pD pIkJ0+qgab45gesCMA04 33cbXIEsfWWC3jaL9VoLP7uRTIskUK48dX433U5f7+/evWqX//+N8BbMXpm9e4paWbxDzgPv0rZbwaY3 /fN8mW/ut3YsCRkYVGT8 SRl/QVS8nbQmml/OiFeUGOcZF1xczQIgERMtI4zmIqDaGSS/owlNo2qnYl2FNW0rGcX/47wLDcpNYHB8 bWIDPC7z2/PnoWS6hu6Y N9+flJUcIcO+H9BGzZiTIm4eGPf4qgYZ/fcGx5uQ25f5lVjPoovTriaWok5/Z/GgOMzU9Id72KV5w1wL Al43jLVqbpzjmLzCKV+0 JBNU7UQDDvjw7B1Hq+VCfhq7Equ0ZufHKHsRo/9/ciIfQhOILblK8B2V7BYr4u1dGLifgFbmuihQ2bJn HfnLDj3g0gxkh1ACETjl Xpbi/KIDyBv2npHNtHeOxox7+ZJ22RqNjY+1T54p9jJYJFnqYMxPpkBYal1R99W2Xr991ulcr+6Z/du3 wxA2H1xYdiAj67Qpwli5 1Cu5LaCfbSDOX+/rcA54Cmv3QcJ495PLHcjipYer1k126/hT/JK9eIz0+rVr//ZlwSIWs5fMACuIyt6f L8QkSalSBNObVrAub99e m9ieRhCKk3e3IY2xKN4+rd1/PeWuxDoO641rFCjQpcig71YZPLsndRFOxovTWqyKaoQGFtJW/j77Auvj Kpl55yHErgQmzQk7LDSO /lt/vWPMKZmSOR4Si5/zr4b+PunyMzMTExIrN+ejQ6ZU01px/aw0WU2Tb+FkpYaHHQHE0Jc/mpRCgQCq tD7J0+I53c4v70d+Ob1m 0k//WAZM3zDXgaa9zgC5p79D//mDQD4+vn6+KX7FBVqyfw86g/PGRkZ/IhIYRYN9i9z+FoYGzs9gLY/w sEDb++xwdQHMRYDcFf1G q+DyqDiURqXJU1WP9zZ3Zt4ZpZZIyIZj7H9kwm4EtAy3Dxzm7prlIXz8w2kVp5uhyovUNq4TlyPGdkv9 QiowffIAODB/umUXb5ym 6ZQZr9eyTI0kPoQZisO/f7gH+6YJIqIaOsLAHVX7ocwD2AA4yQEkQpWXr1oo5lp2t/jB7b7YRHP9R8nw JvFfY89ghsA7Lp/bldAh iTHAELbUEiEr1A4hga5y7SfQ7npcB4stfbnhB6F1LU83CoZKCkYVkoi/Pj4+gC05TdA1Xn4k9C/z7kzZ qUQBcyDLUffSILs9gaEH TYBPgRnZxfzVpUyV/qhSgMpdkftJc7NOg5EIDIAMOcKUwrvJx0HbxT+/AFuquziAlOZb6yt5WvicpaSp Gb8AVUi92D6GhBjfrf7+ fmi9a142UTPH2Dtkh2zyP0PIKh5L51wk3DsftklrfOFoWaQe0+/CeBsGOnzprv9KjLPP7YrKg/erXt3A XvRgVRtY0a4ukx5dB9jc NRjuP5ikG/JzNO7NmDia8mVhVf77Fxk1bTphnNNKpHFAMAyoU+DJuWmRiA11vTOX4EC17zeH4mjRVBLq 1Jch89fDW7BmWDP1TzYH ndq3+GHceMNRoPVDoWJ+j1hbUj3rNDUf/Cu5Iwgx9uz4AO7kw67gdHH3lv7psmTsx3dBdLwgP4nUcWdC d9u/5tHVH02jo9ks1mmT nc1fcr48AFnym1+vhF1MZa6DEjDmW3zOtyDBQYqE2uNxQjpX57FAZZqAo7xF57qCExyxpPJMipBtONMi VbrVLuLo29SeejFfyhmF 2Uu75GFXVtYPa69T9hcB38vEkhT3DLLPPLX56hmUSqGzOfTyUsUzuOQFNuwoJGu/Jirxs74VLqds7Lc1 TEhYuIr0mAbrSvTwM6nA uvrli18/p55QT9NBMeQK+M4bv/lpNLADmcLHbZOgo1lu9iDZFHXhXqRV3Q5WGr1/9dn+MiRABD/5s3EC RM+qGNSoWLFPn3/9/3YM a3pE0hQzoHmUm+Rqz8TqLkfPnk0a6lcobiynU7yk8n+w3TXrwJzu1oZNVlkydNiS6MsAiRQ4f5fHSYw7 TqGqPxFFYb12CkahyKrH FwgEJib+X144PSkUvsxd7ao3p3/+iAXfl6Oo90ah63xYYz9j6chSNFH/1cg+GArG9+rP0EpQMQ/ruM/d EERAtNbnCjqLnqvJPBeA ITyq57pttG6s+rHp43AdpGr7BKa5fYgcZIxAm0gJGiShgCE/aOTQhHS3Hpyw2oIk99bBbA2JBrz8TdVd w526HX8BhFsJmed8kr49 EtA28AzSoyNDv0rHEZ96FzL0i0EEDgfCnKFnxRgaj45umVzetodGAizNY9WQ+xh1AT2A/kxynMbL88iX eetq/3yOBeMLQ4wJBv9v zu+97QWxGQ1PiTj5ilvqH1VbNvgFYJyq9pc/GbS6BmSXLwIU2gsyIKUwd2jKfKzZB1va/L4ib+ffi8zz 96nT5/mZH9Av/4F35wnZ nGAf8ehTlMKIUZYuFgWTo9bB0pEtSIUkVADDpb4JRl8qBNclkzIlOcw/Xg1CL6yVnHcrA3YnWczoxIQo EkepxHwAakzFibJ0UaeB vZyTIVDuc5rbjjluo+quSFAeXDdIzYvRHGjh51/epuExdAOC67euYdvebYAx/+yaNGzZ8/lIa7sKnpcL w58rndvpZOOgpTj+Ftru xon1d5Kz/v27F26+JfuPXuYDzN/BB/9QmK0xn956475ev07xqtqoe/uGnPG1HxXj1Xdawai6GXxGbIQ9 Tt3/gjjQ5JLVHAXXgVYp pwTFHaXTZgffxLYuY7lxl7mn8+YBNF5Z7q/2XKu7uCj9R5PhdoEkBuyArja8secpBQqux9N+xfkffYRK DCXlCgKLRu13dOm4+3t7 p8tFsiSI8oJomiyN59xOsHWUfLQyeIDtFtwgt/Oyc6+ucHn0aFlxj150zVoNxflPCKfXt3jSls4DXQlP aMItn1SRHrEIjAR86gqR DinnP4HoXzbbfx6lqqyJn86xMfiZa78YpOofCwzzojgwyubywmkRCVVsEBrOOzuVpQBWTqqssVtXQ0uv 50ahgPa32IFuzCQ0jRlw Xny80JJgr4onrMf70vu9/Zko7nrj8eooEs0XHMyFUan/YlV7EBfUA2K0p0n8k422UXPZBsz7+fPBw8Z+ mWE68s9mfTuLJ0MucKFQ GZZ9BG1QPIMrxuTIWY5NJK90gvxa5oc+9v2jpU1NI05l1frKrZPn8jWLwM3j4IxSqaNck96e0/lJoqmp l5wwc7bEVqeqTudTSFV4 1FoDmmts7Ia8VR+cJ1aA4nH/9zSvlMxpRDRtyG8KsyGAZnY3k+3Xz/e+gF6QtuArVu/H1ipwb9e5Plyh 3tI277bvAwcqTMEfvOq0 IpEPFC26Mmi/1Ub/h301Pt2D7HBmSx9q+EXSMqcgyK19iboYGFoWERXeoks86528GxX9nU+ts576yBHv Yqe1IoCaqO5vIlb/+2F7 tSlS+IXYVNyOTu58Bel4li8s1scgN+ou7mXnegHsvolEv5EdbaCdlJR6Ht96tH7dELz1j442xl8/G5gz Zp9+/AxdcA08H0yhlA+2 ZyuqKv1RAKL8Iu/pXRKz8txwr5hxkXYSIArIpZ5KrSkKPIz5fkc8g08g5c/AkBiYuLkH3/X2HLL5jyVg Ig0Q6TrADXq2eLIEBrWi kk//Stv3Ctbn9aKeP0m06/a6rySVSAy8z725ZYbxLahNN5+vTZ2aUXUZ4c0WBJCSDUnAIs6IG7YR0937 jqYi8Zg+FSsDXLf7Wq+d /RoexPJsTcfFkfycv3O8q9A8+/b+/kt3der63kxydjLITtY+jofNeMH0Na9isCrN2Aaqcm+sbFL4ckYy Xmstfbg/IUL+Tnwf+7ev XXzZonESg/F18+DolPip4tUN2QrqVSnKupwRLCrPWejNI6/vlxFkxuXPYWt1CAoy6CFfAlI1PEqZKQOJ caE66Xm+RvTV9Sk06ieT rmzZMLX9Bvtg09LCCRT/5Olm2zQic7dMKFo6D15qlRClkiq+MvJnlmw4iLXu3KDruw1VgTkmZvA87/gg EaTWYOfWlm6brVS4RsP4 bQFWTq+PwIsO2lnGRDRdUmfoKKR4srFlrwUh2AkgbZbwaZPGdMZCRrgmZ/DdKw6RyY1Jv+cPmPRArexs P85d41l2rqEt1jQ1udi7 Cqj4bUvu+CDheZsTq9dIlpiotHJygX1wFWF7NGaN3eMOVx9cbKr3RkDvjBLMVrav1BJfLgTfMKxTDmxF pLc9Rxh6yrL1vKcwWH5h 5HD071H6TR7nqWFfa4/AICnp+gcaupK78ADkPxB/vfLEWMu3ab9j/b9T365zqSQ+1WtpMl9Q/0ZxBgP2 pqzVQNiPGHijbWpaox2h 26aHcBGia525mYOt8CO7ydYcnTCpx8BCUOgPvqa/X0dNhcK9unLgkYGsv/gGsH54zST4M8vcnHvAhdbI UpIc7Tw0QBpLmIJ1WbYa L87Wj154n4c868b6K2n5uYlX4NfN3L7ahwsInovlHQxzDGOtRQ83IbwZhtd8c96C0r0PKLyQg6TFFyE3 qwlc9J2fad6RVAL929zy 3WvFrCcSRfZgDWpCQJgQuBh9l3fawAQWyUOHt0UDRJfuo0Rxl/cjOy4XDXlTsd+fetW/pv1Qpij9VLQ7 i3o8isYOoWGMo8ORazzS xgHgvLDFblajbbLCaZn8p8jgevpvXzgRDw2ZFo/qG7hP4t+XH4ZvowFdyANkgG4PnrV2kKjBCBdMd07W gqVdW4iqb4kqoeTDy1DB JrOpr01xFcLWzwnbd011/vfMMNBv4qSIssd18LoDtYoGxhf8fWudwJGTd3k5f62ARUktGpKNSdJz78U0 OXn9rIhgh4zxf7QyS46U q9d6+olya+NKg58kauKzj2pk3I5kNIhoApIWrmVoAN8t/hmsGZHb26NxUf34wW2s7W7+hYJv7duce4sutz BV+VF0zk3gi9KrVcG0Hj a5yGm190Fhi7ffsaNhydh922qkzlu6dv+gtSExM/R1i96yA96AQy/gR8/sFQIOzmkADyQdb8WrpD9glu /CoUWvWrlkjFosDAgNMf ceB2N1jPTMtQrJSfBmeT30qpBWpxo4csSRb2Ib6Kc84ob/74iDIB29WaEJJVNmM54pd/702u0EBQl6vf 7bai3tjrRRf/uVLl5k+X BRUhFLf87+DRQTRhw72Q9XJSxP2QUug6+5yALmgkSo4IYLkmaqIDgKF5Rx2Kp8qv8r05CTo1/9ISUlRK cMGz8aqXdAVrHCAVY9yX jgo6IDCLZh2dXNN2/Mfc3FmOv3HwVc0B/v5s+a6QXm8E+q0O8cPvEb9j6rZYtRRwMghcX2/f/m84sWOg 6yt3waT8sBHsonYGORpO kIwAiHThafJ2129b+6cOVqNtk/ysjFa3R2q9XoeoBfnMOU+OZXgecgOjlpHadlxq9UtVXBH8onFjTnAB L38PV9J+kgCEegzYp8Xq z7+TbxAKKBIUqVSRT9+yHOxrvSFcx5MgARiFTzi0y3d/CdgjYTYe2hbpg+7ju/MJECxG84NzBPKEMqL7 p24Lx6rtytskgHuMIC2X Ua2UjGendEeiPppBOAlz2X/9p6s87WLKxEiDtVM7qtM07+fm2mb9ab66Scb5XFBvUehcUQHlf3fWxzmF hgyqPm8fQKCIEAZDjzVO E7HvoYxm3meQ6JrxK7kHymgjVzs96bcmcp16BbTgZnR5q+IXRUPbQzqvL1hY+AyMvfVcODXpabAzE35Q wYdyBFdchR4gNuAj2db8 mofIpi1BnPOZJrTlDvskg9EhxVin+mqCT4DC1fj8EEzLR6eTGIMxi4VwhZmWZYFUPK95mz8823cjieBA bv/5E7yb40aJ/j5+eWPm 5ube/GHmD1gV/P8YxDb2+gJp3GtgCI475+fP3/00O1k56e5lCd9YjZQjQ337/ZWc6k2g6o0Jy1EnfN2s jhe9PjRD3bChoQk0dp6u HIVUq9o/uWLu1sIQVpEE+HGBhVtZiRoAIvx3iPO+/jjNyKWGUXYGr780mbOZ5aNWnBu5N5+cyI1Z4Y3d GBfldBsrp272opgs0w+3 T4aI59q9kQUJBVTlwTDKyXkUi5zw/uzqCbJGBqOIkwJD6sLF3YCDW0gYc4xgDGPjYePVb+/It7qOuDld Aaa1vBgu8DunNBsw3lbu vm7DZmbLCtWYjQzlH2deyjz/+j062hbic8nm4/CPw0QEQYV8z9mhENQKd4bpfdgTTYEX/cLdq1cLKi2S NbLPD6GhRXHoU/+/axOW 7856AEd4kdIPo+2UP9m1g62i+/N62pp1Uwnp9pcOGThmuiuN9NXA4+u+HNVvNzDC8Zpimngd4z6UTbEv UaUtFotyzIkSfKViRASi 0P7BNhO5G35Wdh27JY1c0ukGfH13GW9i+1nvJmWDFFyACFUJik1Fo4YEkQDwgPrgY//2cQcr6TRlFQJZ RRx4t1wibXhK7DI7Bf80 0m942UvRZ2S09jHrxSaTP5JUGL7RQr9v70aoxfHWGd2/5fHn8ds7MN3jpz7yDGmtfoIObVnA5+eOSsSi gM5zgrThrgbq7kpHGJL/ 4ED/6mPjLAs++D+c0aVu5Y7pvIRyGjUESTGSVR0GTbnRIQ84eWj12BOLyRNCifj6x4D9eapkotaq9Kef 5Dl61WtA3wKquQnhKwoN b5WDOJvF90iOtl13gREWAUrqTldcBy5GwBq8pz/4fUc2LGCa9H7vmQm1JaX83ABDUrvvHttTIeyTKrS7 0eFAANKOZ6/9CWPe8Vf5 +Chb7tDRjxcQw/Uqk9tfHAIEj9xgaiRnRmf0lzqyg8WpIeO8+bdB7trgCeDkVuuqvN7+fiUt4GooByzI Wj11wZNq+8uDbyHDlJG7 syEx1LrPyBcazv404BHNlg/LPNDJIefnHUB6FP7EOaAy1BgrEnRfsu2hGzh+cJgMJh/A//Y+IsDi9E0o rDCwmAwpQassDAYTKkBK xrCZiLmqFbTh7IUSbFSzhZcxLknrJFSTCbYBpvSKzQnoVqUh4HXKkRVpqPvoYbovYDATBfLQykQWgTvr TnZu8SZEzBTcrWcvTqjp NGLINbPYryJSyNgaLtBn0EINqGHdmBlaIqhzADYLIbQTgxLXcSujKxJn5RINiCD+ct4oZrGjQScBp/++ VHwumix9b3eYir4j82f1 +joKBKJ+yfbnfDCox2lGa/m1l98gJFX7sv4R4jErwTvVhP0Azx67ge2drz363it6l7lAx5WTBIm211Qo hCKZzTzSqBt0MYQ4168b gfyp4IDRG3vb8/W9XYp1xxuTywGb78JI7+3nyDnDAwDPUhOsnwu4h5jYoVtkni/AJzr94Axdav+qR4+f Pj/zOjSpcuuXbs+ab5Dh e8qEVFJwKp/7z843sxp//7vzZ2HQJIXWSMZDNicF0mwszFuYY6HfOeJMB4kAaRKB8ZD6pIfO4RJk3624 m/+nB0gezNVm720Yowh8 uICAE+ePCkk/iAvqiNEkt3oLXoAyJXBwEk6qFuKGxJoAO2aDv2PTSRO6gZGv7qZoy0OI7xSoIpAiiDHo 5sYWEz846Tqf3E3/ZkzV QzU1n0Lh3FIJANufi0/5HtEx60j+XV6B1JZ/crHPEf9NXUP3WTfQcoi+vLtmERT7eynYKOOpRJuklO02 bNnBSW+TuWTADy27aX5j ib4517oZ5AvBO3oFq5dirjSLbLheWYRO73bLbvScqre17oCr9d+2iLRjwxuJplJuc75+hia92SUenzyQ olRVc9eRMOZ0Cfq2Fn7R UytVv/51778U5X//v179+9zOXMzCrl719kNcXfL35lxUrg4sqRclDd7+K4a4ej2kjfBtVT/rIaFhTVt2 qL38sGBPtsH52VWBh+7b q38WfDohGKqW60RWQhYMPkAlmv3rV/i5FLQYGYm5bTRFdzjS5yJwTkpviXVyJeOa6t7pXcnOg5Esc1Qz a7n5nuBELZOp1ksReT35 7/z2/aHqAxy83m21uc/BbtyA7h932RYJpx/RSdk4bg4D/Pbz58/YeP1vdqrWL9arZaLxLFsmBoehYAGu sC98LdrEstprWe6ttCZH ums0HAwLPcwAGoHHAdCeSKEIPiQZHrbffoTEi0aLBWfr8IWnCtl/KckhVSrEUEMzSkJrqUu4pt8elJLF ORXWFlZWQAwc+bMpKSkw xIHGMpdOrXK4PRY90HqA3bvJ6Uk3VrdZA24AMO2No61cIg85wKMhjUjg7zm7tbIVTkTOXILrqr+88H3h xd3k2ruJVEz4MooEvSmQ nDgwPztjuHDh/WoVAhNQQUk7sdS7KjUhdLWx3rUrAAXYDd6ngHhUYTVXZ2wpaXeHAaObP09Li2b/Mbs2 xRcH4pOHuFMX683zmLgv ampvNJB7/bXNlAxEplA2Fa6NwvdfZx0lWtf6gQldVbJsr7mQDe6+/gvI3DzPoCj5WtiiUVpZELHZHduS c3Ffb5Jf2ZQ91CYwlSny OKb725oanJsSPKK7NT9BOHYs5NdpzKk7l+hb4re5o8oBwSHoNoOmvIsjf//rncaFTbLVBCzUz8SwPf1x u3OnTt/++77DHnRRzmT5 gTFC7AMLzHCSmgAC031r80Hz8DyBZuumVxui8b4QgLqwW4/v/fM6zK692nQ1S+S2oTVr6Pvvk96778VA q4t0AbwzK1XDFSCYm1WL UlKUFl+laskBpFHSAtRVqrxGtXae9wHWM9F7CCiq2JWtTkUiBSLM7rV6+NXp54h9g90vuXcoijl50702 vYFpQAAc+bMsThYUAtLI jUGMSjvUu49+ZtoythGfnVwIuFPcjFiQb9LFRl5rjpaxxQfTqJzYQ9nffrUK2oiE5zcqmhVPM8hhoV8S Rjp6Cma+YtUoUKF/FY53 HFgPGWN13BmXhRRT9zBwK1u5MLmT9Cue3p43ElVDrHj8MnwBtXExThNgA/w6E3FMdaFzRkKJo0x7dw/+ uqrnJycQhJ5+fJlMbNDC IdhIKQxqzZUAp98Uk8ofvVn0R5WpMLd8txEkKwhWfjnr6+DIwWF8sk5+vqacjRhNYUaNWoAAG8+K4SyZ yoRwWZCTlTkn1QiwyESk Cpo2ENqRITv4cs011DhY+5teQZCh675LNtNW/4j8wNvK5227051s+/dQHs2ANWAfhTkkz1ENOYTTRPvz xlDIWTMlu6kkQlcWw895 yymcNg9LI1fSr1lVcx7KhtqQhANrO770SdwyOifsAioH22oYT1RAmRdWKIfg560q2CfbyWGFqAe573/+ +23cePGNWzYEAAuXbpkI A3f6awSMbtgE10HE8PbMLLw5Ud6h+p9tg0f0hbQc6OaQk73AzSi+bAp6M9W9chWYUi2UXM5mvUY5+Xt5 JevYrNXpSg6TfOJAtMEG q01vvQdIjlk8WJlVer3vxw2JlR63K/5yxifSCLvpWlr6chqmCJM2faaDUvXJ42uWWjbSAA8N1X1JVUpW FXjwnF6FIbzbU/SokuIE Knwjh8D1yTFl4xNWSzt+s9H4W+JjKKfDuUPCv9xhpTGeuj1Cd0b6oDp0dk+utMqt6XCANPWvs1m3a1i3 Wbs6ta63qRjuwQ/ERQUZ XnchDuXK7m1y4k+49atW/pECCs0sDxYi1UUxjbiGkZWBzOCYxK2uKfA42/Fni4Igtjt6V8UsmguTgK7e 9bM/Xqqhw6BdR74t+ePW YYGb5xyjSpg1iaCzBSQ8Ti3xjDi818OyKtTG2a4mSTwZx3CIjLx1aS73viUZaa6qu5xIdU6ygi1exVSC UFBv/eab1m633+/FYlEP j4+jt4D3ggC95uwQ4+syc/z58+vXLlichMHgJ9++lbp2ey7vxj+/v2s923nfYg9HrkCgbg1+/dnWdZoN B4iFPxUtNixd0S5Mt1jf Gs0mtjfbuOtPj8l1tvFbETEW6zj4Mf4mPU/uVAHoZ871w0+/eJqrbEyWjtmQv6atkAwvwAUIl4c1b63t ePJVE7UUvSBeFgiONkjq oNaNzwnKKABFoEMkPi5F42kgaSNhcCvfAPo8lk//vrr/TBxtF0KxwYy4kmQ3NltOpCWAfOhabaiqCYx0 fydDbQBAffrDYEB0KfQL Y4CvACcH46lgs3fACZMqm99AODEDp5yx97oiEyOjPhaR+bWdZmUSp32tJGs2A/JrcZfGox4UuFQdBkLD uzGlCKbfTgMw1YRIbACx nVqzBlidLHRIYxDOvsJSdRtaDeFr4JRJgVHmwGqyYy/A55RS/s4i8KVDFJCUJtDTcAmFeMK></span> </div><div>
</div><div style=text-align:center><strong>GYNECOLOGIC ONCOLOGY CONSULT</strong>

</div><div><div><strong>Patient Name: </strong><span class=clinicalNoteMacroHighlighted id="[id number] macroname=PatientName spantype=macro title=#PatientName>ALYSSA PULIDO</span> <strong>Patient :</strong> <span class=clinicalNoteMacroHighlighted id=[id number] macroname=PatientDateOfBirth spantype=macro title=#PatientDateOfBirth>1950</span>
</div><strong>Patient MRN</strong>: <span class=clinicalNoteMacroHighlighted id=[id number] macroname=PatientMRN spantype=macro title=#PatientMRN>[id number]</span>
<strong>Referring Physician: </strong><span class=clinicalNoteMacroHighlighted id=[id number] macroname=ReferringPhysician spantype="macro title=#ReferringPhysician> </span>
<strong>Primary GYNOncologist: </strong><span class=clinicalNoteMacroHighlighted id=[id number] macroname=AttendingPhysician spantype=macro title=#AttendingPhysician>Sarah Coto (Gynecol ogical/Oncology)</span>
<strong>Date of Service:</strong> 02/02/2025<b r>
<span class=clinicalNoteSectionShowSeparators clinicalNoteSectionVisible" id=[id number] internalbreaksection=false originalname="Reason for Consult: recognizeconcepts=true spantype=section suppressempty=false>Reason for Consult:</span>
Cervical cancer

<span class=clinicalNoteSectionShowSeparators clinicalNoteSectionVisible id=[id number] internalbreaksection=false originalname=HPI recognizeconcepts=true spantype=section suppressempty=false">History of Present Illness (Patient Services Clerk Oncology):</span>
Alyssa Pulido is a 74 year old female referred to [facility] with recent diagnosis of Stage BRICE [...] internalbreaksection=false originalname=Genetic Testing recognizeconcepts=true spantype=section suppressempty=false>Genetic Testing (Patient Services Clerk Oncology):</span><br&gt ;None

<span class=clinicalNoteSectionShowSeparators clinicalNoteSectionV isible id=[id number] [...] cancer excision

<span class=clinicalNoteSectionShowSeparators clinicalNoteSectionVisible id=[id number] internalbreaksection=false originalname=INFORMATION STRATEGIST History: r ecognizeconcepts=true spantype=section suppressempty=false>team supervisor History:</span>
Never
No history abnormal Paps but [...] internalbreaksection=false originalname=Physical Exam: recognizeconcepts=true spantype=section suppressempty="false>Physical Exam (Patient Services Clerk Oncology):</span>
*Virtual visit*

<span class=clinicalNoteSectionShowSeparators clinicalNoteSectionVisible" id=[id number] [...] & Plan: recognizeconcepts=true spantype=section suppressempty=false>Assessment & Plan (Patient Services Clerk Oncology):</span>
Alyssa Pulido is a 74 year. [...] and Sarah Johnson am located in the [facility]. The visit length was: 22 [...]
--- OUTSIDE RECORDS SUMMARY | 2025-07-17 13:53 | XMS_ITS | CCD ---
Author Name Interface, [id number] lity Address [address] [facility] [address] [address] Organization [facility] Address [address] [facility] [address] [address] Care Team Providers Care Automatic Bandsaw Tender Name Role Phone Chica PALMA, Sarah [...] Ordered By Specimen Source Lab Address 04/26 [facility] [place] lab See attache gomes Medications Date [...] Order PET/CT scan, sku ll base/mid thigh [place] Ordered 02/02/2025 Physician Order RTC patient teaching RN Patient Teaching Visit Ordered 02/02/2025 Physician Order Radiation therap y consult [facility] Ordered 02/02/2025 Physician Order Immunotherapy Monitoring For [...] requested Me dical Oncology for chemo/radiation at [facility]. Weekly Cisplatin and Q21 day Pembro with Radiation at [facility] Ordered 02/15/2025 Physician Order Port placement Order [...] clinically indicated Ordered 02/16/2025 Physician Order RTC EARLY CHILDHOOD TEACHER/PA and infusion to start with RT - [...] style=text-align:center>

<span class=clinicalNoteMacroWysiwyg id=[id number]" macroname=PracticeLetterhead spantype=macro title=#PracticeLetterhead><img src=data:image/png;base64,lYNSUk1HUmjBWLRRBJaQHuHTQTVUOFFhTHYZZTL7E6kHC EERWAYJF1MYeu7u2KAUEEIcIK6JZOSfutc8CCCTOMPXfFlKyeIQQoWHCU2SIKItWuoQSHnLYNALITvj4 A3VeZN9WysNApppxmQ0Z yAtOuRBVJqtPxjRLcsXJUAIZKRiMiMSMGlbHrbWzIKjZUMK6JwiAn0GMsyoC+u8/Jdo6rrn7r12U11Zv mtzpltqbAaUCwIU9paBh RJTYFcBGbtArrGpK8VrSFN9hC/sGdhXHKfJqSPjLAXyhPCRCREcFWTJUDYKfdFWj4FTguXZj/gECxCGY QuSB9dJr2KsbQl9Gl5ba EvMsQcgkpFTxCFhm54FUmvsLNWSy6rkKAPHjIgtrNRbSv9fM1nEmNbjYU0tkEKChob73doivlCI5heRF Wq1u4PZu7xrvHe84xENQ vWvKqBp1L6kCgzsLvVQELa2JYaQ8usvfHs4pGeel0lZUyNVWBqQfCgEnuaTTUeNeaH8rF1joa05bJTyF /LmHQaor3WHa0awx7Yj0 6oQw1x/sABhrlu+/blxnp5631I/zDQMxQibQgrMt4xNYfSioslxCYSESUBO+AdQYHAQBQQQrV7+EU0e+ rYaVGrK03LQtadrXi7Nd 74LNwQ9Gufsu7+wPJZJ8p+xRx8a//6cOriIVmBFZbOGh3+i1P4WSoxBn41e+4MkZCsMyqVZoV91rRgkg Tx++/btVL9+felnmOsJF iDMdUdGRgYFBQVJ/sSKgOwQipcAKcoTUeNDPEhMJ3S2Kq2yj4/PJ1OCxu2yQw+DddwtbNQK2wqVLIwaW FEtM7k3mtgdtjKjMW2g3 Tnno90tX5JMsa2P781jHzRX5XZOMFmmHJBbdnGsVk0ooUm5qV66AMVfSybDTZ+5bu16xEeCqFaiuZ5ir IEw/wpWrFhB8+fPp/Xr1 7QhGyCUdAtNXu45rODfgczvnNDX18ClOQmG31N/kpmWwpw6MfKDZFHBaECSwC4hOnNjNWSGcFBtLh4wr 17iyOcfWyJki5ZpXSZ59 LArdHMIC5nnrh6UZuWFkuXrrxTJzwEITjZz0Dp27ra4RMaJZciUzSabgBeIJ3k2/KWuMOpw3iUoYr+6s 75tanxaEoZidMIyZhD3R rJsElSpKvFl35qIiFAUHlFCq9ugqZ2ZewV9Zr1oq7z+hyl9VMGIBDNZaJSVYJsiSbLn99//vhQmDFNQ4 M3dinNQxITeQZTTW7GjF 5wNoD012yjrqrMyTHz59dvoSzB6Z79dXy9c2c8ils+iqFpAS5wrfcbFo494Nt/SchdgLr4wsOJOwXaH7 iHFFB0XHHG0YAo0Zwy9K pIioqLpu4+M0T16EfG9RS+gD2e+GbPAl9kTOX4MKj0J50E1wA9aG9W9z++W1+cUUSvHGx03DF1xeSZol kgFqGVAPNXAfrQloau2w XiWQkg0yfN4gSnYYUXP4j0+f6Pg04lZF3DvLweXk2726z/IMNadTzO+TBBEblNz297HYbTGg28TJtJTY tnSt2/g1swwOk6ZyEIQh 3QooGkzNKbnpzXutq12hd/PVZaRzCXCxlQJncNlbG9kIpZ3NAs35GBu3kOeS9ZYRhhKDvNMXjlqi53/M NAY/jJ1L8pQLXiNVtwBZ +cafn7+aj1RCiTAzgRWNSO1CgWfsII5c67tz3RyIqXEK261N4PybLLGXHNzuNO6pRHUWFhh9QlTbeUCs 5VqAJ2TRg76LnjUgvORL 6W/ki66rGdxOtz99NrvvUIK3atAw4r/bEeh0NMXPloJe6LZ8pxIR5yHjw0rjSwnKVETp8WSZfTkoHns3 toovejG5Wk3vlFzfd52P p9xEWIOGUt4J/k2nF44aNSSPDzLnHlcWfvBA6q++ykf6oomolKpI2CffRpNKOeMTCNzZGTjsDVMyoOIx QLWTZgIiMUPf//9dxXrG gy2//lsl5W2I3RSdynrEAm6iczZ2tXWlF6vsjoYX3e4uzSRHRi+/77EeKwTYt9jpVtSMQpWcvI89ZPCQ sI2vAjba86+dZ9ON7SVc hJwYWuXZq3ECB2acinlaez4dWmVfwMNzQsxquejgd6DXA+Ex+QXiX7/g+wF0BCwRQiFuXgN9KVFT3amW jpkUdiPtnlkEb8a6acxc Fa22QTMp4/J7IDtY4pLGHaFohXrg+oA4XXS5GaUvtJC2OqBuBHa91jUkUqrA979hZk7b18kSlGmFXBjy K3wPuSEk9EMsCTZ2MtoN eUqVdQexwwdOlRuddeZO/XVyfTgzi2FwpG6NeGdWJIWt6+hJXFHklxQkLaP5KabxaNEjqafRfUQkYE6/ PhxGd+hJtRfs0dhUbWd3 mymjx0XxRwFjIBZTpllyx+OZ37gN2HNPNOeCowfmTwsrzeFcO3LNJcxJsJRzrdoIZPoXUBbGYbcgdm2s NG/u30JlquPRr6iaKw+c zL9tNxJGlUaESY724qKKkIJXMh8WZmFedBSm+1kxwzXixSBmt6BbEsxpA/479TV0az7pCgDRWvjCgKCI TX1YVwZLL2SNPwGYg0QW iZCUas9b+atT4Kb937uX0147otSG7O8d+0k5g2Rp4thTlyq/yeBxJnPRPkU1Oz+6SyMBp79hoDQUmlR2 wERGTpyqWkZlJCYRCdPn xe3Oykjt9iKNFCr6dHn9gNbsUF96zeqD7y0lytTETKsfMZO1s5ASzm0m66RFErdRT4FPdFYolt211oHg qDSE2GkX8rO3GIznyGqB WriwAA/ChCl+MDhwzTsiScoICCAbqhRnSa8+QVh47eDkegck0/NdGCVEBFseA6bxAgv1TqZHcT3lBheS 3YfYRwWp2WMNtnPYfLxp OGwtTr/oAAKDQ+p2uRHFBsEmUo8S8ZdNgkGmPEGE0wqnNzh/vYquAfV2e1+zBKaBoo99kvc51z6mSebw QAdG30qk7pXwQmErRwSL Dj+emqtRoDvJgjNNiERSDnYKORoGJDTRRBf5Jg1g4fwyXko6rpw8gKb2x3RGOsJkSmK0pq4B4GQSAF2O fs8h8W1zLfapdc88xNJt eOXZiWdC0bKpemCVwFayqj3ynD2NBaj4EsH59okLA0/c5fRf+JQEjjbKOncnwliD5mlMkvRUYD4hPw2s mGY/L3MEFAGaDc7HOujv qJlH+eokDvffoex/otvIQuUkNMlV3TrlpLdeSyXuhCsp8j7O1FSCMgCMD2KmjvPOLazFqSpJ0+BzLtpo +cmPFEUaBhfKffp2q00o ff59017xh4qrz+MkqVKSz/KAWE3HbNOkDWg3GULrdbY5ifsZsMPLG9N9UG/tkahCxSjGQLhr9ETt8kRS FA3eVJF62cAB1owgqF2c nMLbVy/gZIyDWm+xmwCKLMGnVIJ03FctEC5inSsIrZozMMlgvM6+SDTAePXb2YrsBWVp/wpUByTkJZJE 7yShxaDU1lGGSxOtLq35 +9XIYbJ//DPQPYpiDvRjJUHpjG4qCvQTwwLJZw0mwHreG/EjUWuxLoYs9vLWdu7GEN6aN6lK9jIjAMo0 QKTc0FCG+KTEOh2sUWe8 jSrB4JUi/5534l2a8j2hjZUfM9ADXqPL1MQ+w+Pc6K1NPBN9YUvy25ER66eWPMhFFN0+w+T6CORBCiaB CjIDEPUxRbBultt6qgSU WHoVhfDiyVzDFGtqHd0i24oTKp3ZPxzaMZOulCFIVvwtzsWxI2fZcNwSBOub6o3IF9D2YhF6wI8xEm0m ELk7IobeBa+nurUrUcLl uPOBzyo6E/ywiK2No5W1ihlibn9ZRfBWmJnXIGq4FMQD0eIxE/XBQkwScYOsmIR6Eo1p7hfw1Ql3M4ky eXBJrPXM6uA1+QWVkxYX 6e2XHhJuyj/RdSR02lubbpSg9oY+AfTS1EnTMLJAaW/RBu87GPicXHDqyE5Ew74VH3AMB246dzNL7vQ7 JMwNZ3scYkrr49GlrZq+ yJE4JKBILoD2vOUN1bt/LvGM1CBykYhAn+eTQ89+AS5F96xREvooFh74Jodxo63SELGLuEDiy8PLPoAb rGQQuhIuTRdLxaIJp3Pb 4WGhdGvew/Irs8lHF739ZPbNOdyJBdwlsDVfScpBXz8ZHMzJb6Mz5uUWwbt+5eh6vnO0Y06B1CwUlHcR 3DahAdwufXX4AhI0+bNk 36GyY/vLWhOG1LVemnksHM78k/6ZbrvqdEUd+8yMJpOpUfqCVdCkhBg5KQleSq/lk4nZX/mVSR2hY9zH 4a7EsHP2h5xg6WAWpCaV ZkvN3LhSQEmWUJybTylBg9iYRlb5DevBlSWCPoQ48TTbrUkbr89l701f0n/twbK7LPCOlL6NdSPS7yxD ftIu6pVwJrGshK5sILvB 7o9FZwLTe+iv7VRs/FNNHXtFrp0+hz6fGT/DHZnKZmtkQKqU85KEsm9LLNOVVGMnd8+gQEUEhIgKuYwU BMrBJyxBJ9OXqXqSdzYK v43lnR/lf6g0PPVMDpScv7C3WV3/IXYFo7NlPcTJBV1LXYmX76J1GcpeBzENcCs+z8p/uREvsR2EE8/K rJgRN4l91eS/i8OasPps uRHuAuLyXcMHDhQ+DjYh5bLEa82EFzZKWKiOHjnvzelb9Rnf+X+wtYeafpBdVUNJNV1tDk97pxOHioTB 5xd78HbRkJv8/kPg+U4d 2P9kYeA+LhLdM/fq8BruElIk0RSPl3/1DC5r+1OeunvRFSJV9jvub1koXNY2zdX8L+jkfZ94OEWtsENB JOvgEns/Gdtao0Ov7hkp buQPiFzlB9SGzciDOwJlRaGBq6hKdq/XEJHzsRRTOFgeuPtObR+fDm4G3fvhBgjkRJuGxpCOhrxxmMX3 FDPrpOjJuJxhkEQ0899B h7JnKeqHnRx7N8R3ENHemfoLEvboLhwbYo1EXcvZ3yemYPn6BtNoiPLlrqPESKXZ0bz4KDUvmABOOVzA KTeheYFqdk9CJRgANQnQ FfvDBCm2bEtLAxLmVaGSbBFefdRWdgjocitLwQ6Xp5tIYkwMy1EOn+I8eEfUPL3E841E6YS5tgzve8Sd IM7hMb4YB/erWm6KDMpC TeaIUdIfEZjxOL6vXqDumgBN9ucDxNRiAI/07Ty3hmzRYo1zjdSo6MUgBAprlXrjblOufLtzgDinER4n Gne8t4+ITG1XC74cLO4e 8SfXzJGNuAfNytlQmAfOsf5Mec3/z7T4u9QUZ7bBOjOEvoY3ExoAKT+BeRDsvdeIL2l3wj/S7fGhtyIJ KqqzzWMVkxAvkl31kstF x/P6M3RiRA6NecjPYLEpXotYWP3HKaBnVyOowrrcL8FRdZPIqmndTp89AD+qstgoQqTFCVNO2BOVn0SL Rj/dANCiAhHCEJRsGr32 rduH3rNiofSMo0zaZyM5CHqVUXcknkjADFEBLbRk2LWI3k4mHr7UbDwOMHVzOY3u+D+xhMhShRW7RzJv RdGmQ5eDJbGItNZ0nGPw lS/wYuH5H8+yywPFf1ahTTb4Z09FPZlQ7MGnSx3f+vn70/j0w9AkXibeGYSydxHkaI7uJyEUCtF41AZv q9xuYxQHkZtR8E/rATi4 d6ROzAbL06Mp5Mp12pOjlxpkqjE/D181Guf/BnnK81y89NsfFrS5U8ZTazuQzCMAuFKIuJZEMlJA6p9v wXWRGwMucAHvGPyRJ7Hg zZdpp8/JMNgUy1LQKTPEe/S8X5LaXN3lxRm3JWq7efQarENLBOph4hco1X7WmgfF8P/5g/uG5Kc4Reap 7dm4v8qOR0fNxMd3WZbo Us4APWNy13Caqc2LA/OYvrjszgMUysXOO1x0F1xVUWDzT88uSGhGW8yek1ZaXtN9oXAdqVg8WAT/AELE CZfMWjQIOUj+d0XPhFOY rRsQPyr1XO6Xtyhukz7WF7m3RWKSQlCzo4FppKxSk1tKvadKKsqXYxy0bb1oV8m+Dc6/WQjvcg1sXwJT 703k+prQ2fo9DGOSn3cr +215UftOCrF3FDdIkuXdHNSUObbawhfHAH8jlAD0PH+lkwcS4UmK9aqNnFiGH++PB0/myaQxXlD35cRI +XQP9EFkQe7UXVkuBZPA hC2xswMGIfA5TPVL1MHOio1CSVdxtvQasYsQ8CgYQ7aASalx1MabfK+HeTONgCDJZScDD5MmsvqkboTI tKOv+TF8LAdYJkVxFMjV anMPvois3SKgWmuNiCLAzLdGEFJSLCk9CmSCPS7YdUtFAgPzt/ITLbA6cPGmSuoHSuxSpPyllaEuuBMZ eTr58RSDgZH4TE5uhUAG Jp7xk+r8OIQOw3GHxX2kVNv/krGoxWfEH+JUCWjWwjjJ3+vgwYkrkEKNpMhi7+kLCFEUoVASElOobtGm 6Ycg56tqymCwvVWfDZA/ ttHeNK2b2+FnpHbT96jyzeeI4WToEw8tLwScdHs2+Esdras+kpvwFdWwsMTySMsxF6F9EuHqk+xQoqJARJ7 is1XaeFbsVjexPaNW+6h do/IfAphbhshxp1YLuObgUscy24ZM8dQdY5t5PGIbt1RmdGnFYMNlLjdSMIsM7T+8g/PMo2gncWqmQzS ujAfmb0KS6Psa/tp29eG y+TZFm3ENJx8RC1ZHZ/pPFRzLat6aQQMeUi/0ZIAZe8S+ySsRZOJCfvbOaHRbjtSmlyrWYZ8Lg+MrJQ+ KgfeuX67nj9c2Btgvtck gzZV4AbtgPuDY+d0RxCLmpzyoN85RZA2er+/fW1bA7xiS60mLYVa4zRQ7iW6ufGKLMdEUXcDO7u49nbg fJT2m3CGPIi9CspSuOiN qIq76e9q3BgYgCsFAVGiNt+8Et6rJvHQEjlbe3xQuKrIFXBIKM/zHtL7r+cvxBUhlpgo5rWDwVez86mz 6hqfWQ3Ct7nYZbWRX1A3 S7+IqJO7jy7y75bqZP3ufsr8OwfBTKNfdk5cwEttCS64KcLzPXWBmv0iytE+ViDUzDqqTbrIGqOG2jAP JSJtRp3d6KTM/+U+xkmP 3MCeZsRVG9+YVc1meGr1cSIKJyNfde35bmxUSkWa8IOaroEyZtxcAUrhdG5VAMABzqTepnQEH8qst+ARMENIAN uFwiCUSVxnok6glYkOP5 4H509qDV4kePqTZlkGtyjBL4JlvCIMFaCKRDE7UeRjNyNmQ20HW412TF9gInlKsB4kUpLy3lgTRt+RPW IAw+FDlXUr032/T5Mnmg TMxi1bYExf/bxBlBgVRpn+AvZwAPxNVhNGXFqr3vrs88guwCFmj0qu4bsClwsQHdUBJALwoaCqifdeWG SwqdsS10AQTSWZiJJjjO eYJtBfUQyDS2RHbq5YOhGSUkRqCY0KNYXGQ0EztL9YbilTb2Sk1f0EyJvMdYLBIlId+jDYOKAeMvN64x jYoKwE686TV5nvPK5Cap TkIIZVPqJOLeKzlDfhE7hWNjRHDuyxmRndu4dkI56hASPJxR3Dp3HL8d0A1rpPcY1dhTcfsS/mMholzg QAHZoh3Ff2QOBZMRtOja lCYRYc2kCHe3a1cNthcIwA0lRsk22ClICg5zkz5RQv+SYcxjuyj9TpYCh+DIqqFSXhYGCWnpVOoqIBT5 Pw8mFk47FhZ/zOCStZrQ mofeHMKreIUdvnC4NRxkBrnom3AgU1+8QuS83lQtrCTa7XpRzdH6Rm6In7eNXSgpL1iY1YATpju9EQBf gcYrU6k1NkZhgIFxsPPb HsVCOJDcP6opQ7+sqK8loyNkq27FaVIX59iny6rkajVILzfLqrntDnAeuCHrjfCM5ahaeWyjVT8luL9Z 7N1hozSY9kvDy//mlb07 luyXzWfvI8NhHhhc0ZK2uGSKk7x8O9vDajktfPDxI9/sVbzjI7cuEB1BSKoGKC7E5UH/e6XB430hCJMD jIf5KV4u3eT56MnMZPB8 VdSOhxKjbRlAOYhI8VTA9vm0tdEbL5FRjollc5i8OqaLyQrSDukov08VWUQw9TeiQ4CQDa1c6DPzOnc4 Ny5k+rUqUMVb+tGN09+T 6eyVKXT8l+le0rxdC/FaO5njg4ExtdZKTVyXFTrLkwjtu/VpKvw5ikeOm5HGqsxslfHZnDi1NGe/OnLZ NATYgT2je/Iw2jAGrRv2 Zvk2PbzhK4hB93DDdz0xH7/5P1clSFDkMfNwDSgL+lU8xIc7J0itqsVJ1sqytzEyAsD/nDK0jhSX+jkh u6h7331VH44NM1KSLfsH iBMgeHTTz+dianne+++fgkq4JusqwJ3VLwU4brhRMuNs6UdKE5QIb3bla46nlKNa21NaXSypp5OMqQxwxoUU I3PQrczzzjY92zfE7jjT cZPygFlOW1CvIQO5U5jQ+K1w+SXfOGtQf844+xZ9at6cQvitE4pp4cQzm0bJeB4LWKhsGz0mxXnozJZP e9NXaHQGW7ziifYAaUMX NSjPB91nFNjP0NEWv5qCP80fcovkZAPHtVelYMlMmk50k5kwsxD9W+YbhMgqIVRjA1/fyFMgikwJFzW9 LE3r0Yh/ruSTk4Xx7jry icdOmpPEgErXsJa6BzvCHRBB5HZLIZKDC2WIr+DldZsl5QUh8OGSEqb2CP542A04QLX78u7uh+8CBnpy WQIDanZ/V5pluyDCvEBs NnvOVeVaSPweahYe1Swf3glgMloiYzrdNDEjvJa/x1fR5Xze8eAONFAqFeGRk6+dBv2qOub7DGvIc+7Y G0IDlyLP98DetclHiBhk BV3oXVaUr1/ox8jv2bMYv0I3uS4iYZ7n3t3xW+eoVaGGLdATuuGdbFpB8GXphCDmePPu8tqqOcKHNXbS weAp9THYCkW0DSEPxIRJ n+5XeR/TikzmA+Dw94lUvWSdZT47s/tTTE8Y9XtlRBc/RlHQXXSCuJnMgshxWwq174F2tYlCZVvL7InT LJNANdSF0UBxizWDSbQc BXX5AIVzaXkVQurt88HYwFm4v4Um0ZtYLdmnz8FVPELxyW3M8B3YUmpjncgIiFWXdAoAyMfv1Rxej7+J eJS/GjqRJVIUPI/I6nu6 e1U8t3RAPemSFg4063rgRwPGiQjQxiHLCXhe8MRQmszRtIIrgiPYUR6aaU7b5kgzwq+gZQgtCVQsmRJu WWYggBrIEyBAUubVKtWT oyvzfcJrqUNBiv7ippWyF1DMV56mKeSLOqVSV0ntKUli8rF+UnFah4nYSLCJABqCdOIAFW9dVrT1Ohin dZ+K/iQoFrCtLt9Uxi+R wT8qOx/T7EOp9sMBoIG5vPpHd+xxRcQ/lPg6HQmYuq4w8cIzl75SOG2HlLeHDceBrzwjXucjqra2SAp2 K/76iEDRQ51RT4bqzBQC RYgTIFCm/RGdBtAsU+/MTvlQcDjIaC0b3Nog/ojaax6uo65eWiZxclDaq2gylAuaASw6m+JWaWL/0PCK Csjjc4/NYDS//di3Nsxc Zm08vpzpiYzsZKHuaH+kDj+Mh8cZ+O7nYUPj+/6Z7iJmT6AdW80gfLB6mUKEr/5xUah8w3l/6gYSnzpC UpbvVLG8+bWWIT6E8qmK FKbhC2AhADqRtQnN4xQ8X9EeAFRlUuMoLXOu8O+tgZvDazRc4NS1W286TKTfz1HtTOHOx4lHWKlLGn3U xhwqLONSIqMDakGMe59T 8E0t3w2tsHiN5WT0mQnXPdyXc7R5fGF0NSIT5K7uSUWdtHBSseWwtyc9gFm66uTHmXLhI9fe1ZayLFbh X4Rn+gfQPGnjtuER/Pmz bQLKCvICRKHQiE0bdXFqfxuzO96WAUMUlCxgjwn7oAzg6XDeAMoCvsCjEqvTwiYxIxgSEYCZXRMPj6A4 FjF3bRHWpE5EweQUHj/S unSBNiqCWRR+ihbIWkY9knvdAW/YSmaTFyOgV5GOGYOuKa5WXpcvE6fuAyQqg6xIVfEJgWCPDyi7RzRs LLOcJtGIZrIC3SEcD+aN Jr8YBIzuQIJYYW67xEUSzRgPI9WQuF6LCVpeWsDVGFH1XdocE2giCmhyegceE4umCSlMvNSg0uQAFt7M hwHlHY349rzQcO80sMuc 1ExZMRfIOOVYUTdmxKt/ZSoRBmimUIzmLmCqFgpom+NN95uhXcrkIFrPn+xTXiUz4pR+w42iDr8anJLY v1A2SHZ1zOF5GZGq82Hr WNnPxtvKztGaURt0VcWV9QaGx3cw8ORXshCfnJ1Df13KETRcshjoUspubmWNTAfLjMNGBBOG+qFHJswi 6CbwWIhsv3yChCekZ4ZF G+uIL/UWTZeuGnW9b6SZ54m+e4ySQnT8QWgBpN/W+PWmM305XkCq78wGJx7y8MMt4WhirSIU6TS2xoGM 7y5XvWpHe/Ji9YCd7oRF bpSMDT3AMUjjqYPIGAIyI6ZtiDYSwDmKEaWBAiwdBeoWOSWTWqJIEy3eeCMTkcqWeogSCTRuaD0AWLb9 CIFlLCZaswVyaNCzQ6nB /YtMrb/HFFYc7E0PoFBXN4YXo7Qol5kHbH0dhdYlgaB2QboQ9qREMkY95WaiSewGvRDb+a+kDCiO/qQX +9RVEg6zCkTtKVbFlQlJ ZH53kQZ3VrbXrSX9+wpMj5+p4h0ICarJqh83RG/qx9GTxxAEerTazUJb9dMos+1SMx2GywEJAM8F9WIK ksJKiSEQTLReVGh/y6Ex uv7rvsh6C0H7W6avsAs7BIorwEtvAxkF2iRTJG3sm3IqGngNXj0jrwNU3OJYNRPi2ZrmA8WDw6clTT8i c8wfHSMrB/nL0R/HbflD TkXX93tbh1Ohhj7BHFbZNMEXTx9inocpoCqtoYnh4cPqRGOBvZuStGFe4AXYMef6QiM7NfORR0sUHjhK Dpg/4qI+MAgolChfYRFE i32JRDgEHBFpINSw4XqJYz+AEaxd59ihqZSWtdWwS2YnFU5+Omnn+jPP/+FLtyssOLHtAJ2rkCdri61G GeIGDkGjyIyayrBm9UFZ mXRFF089kT3IuZcZ+pAOKeGemdV3lvMGYBbcpg7UwolyGQ+OjmElrugXCepuNESNVm8rjgtrBOVeAdlC Iv9AqDv35qFvHaZoPqkY qeMCcXWnG6c0wxJgjAgIjA+M2wZHlfRwHVWQlA7cw46vllY9m213P093LJMYFtoU+KRMVBNTEVEtqmsT kZ9voXTwQggW3iuJqByh QBQCBjR1eJYYCyfgew011IVRI+JdgFYMRct4VhMCOrKCDJc9GGAObkTntXMA68/4ea7w4z241KYuE8+4 01dnUnDpb2yDcTm1hHl7 Hg4uLDXjvNPDp5DRYW5a8yuNNGRJ0EfS7gNvRAuJwUTWVXz6reoby/9C4LJOJkaDOGT748fM5nK00+/r UIWIqNN+IXi5Gupfq5cT tOmTZN+mLV6pMfMlA0wDaCePsobt+uuu+oBJfu6KrJNrJUEEnnbQ0nKD2Zrw8GHIMdIOVBepAZRiCf7p javpGrVqtS+fXsaPHgwC k3XbmYMpQOTlzIMMjWwUIRdvSEXZEErONZADGHBirMCd6GOtyZIs/yDUtVLEZtCB9jTCXoUGE1YBuJiB IbxCRYgDMMwjE+wAGEYh dJ7gwNEtjBM3bAsYTzKGPmyHXRNMQpZ+VLJIHKdROQdAGgVl3SERIS+/PlxOaXxBDcEt6jolFJ2jPIr/ Y7Q4zyDJSwboXOBTwWUW UXFixenrKws+CNcg2mU2iDDw1owz82w284obpx83mazn1EOS80ABeqpxTZRopUaNfUBjQZMnRv3kPRVy tSzZ0+tXKLJMo1s+ROPB Armm78K72fqNh1ow1aR8pDGxSxiAwFn5OBGEuWzq0bbyyblkPaNaecOnx5RX6+evvjiC/7SG/Ad6ySYO 7VoH4YJButtHq39gFirq qoCYR12hKy+/zosfiedbrchHmdK95aCc/vvv1+GGSa/1rT4EGv8p7yx255MGQEULQoSw0jGbVzoKLSCh Paq8bOVJKl/EytWrKDu3 heHJ0Vow1/+mSpWrCjDjvjvf/0Sda65oDXMIAeNIw/vtAlFb2WfCI48Mw6zoBFRq80SfMZUy4ZeINsJJ 9RdvLx5AO94rMUg6GSw+ alIJo1LV6s41Wjgpq/+rQ79pdI4eHEcPpsnrBtS0hXYq6TAlWzix8Q51fUZ4ibOElAMDZSwX4y3DWJps mnWpsUlhnose3zkJdfyR CWRcBCOnb99jWJdMEwDRB57JrpMISDtmuFsijEQUw2o+AwP8k2Y878Uh5yrU2BSzGGHaUCriqdPXbkI3 OrRowfVrVtXhUiOh/g65 ugpeK5SQhQWrWgwNRkePE+++KLyuQcvFrSPm2++MpGQtYwh99/jev/9/jCAiVuG61zIHkLeGtMTBEuw2 VTIO95++80wA0qQcnLcR cw/m0mZ7Pv244OwjOzVbz6uIydOQEPrlOdjdElQ89m6fDFEY2zMxVUUBimdjytcucegzW5br8BrAhYMP ETYzH/JE3lUcCQIjPUNy 330jbKrg7SvXJrHGCZZirFn143A43FC2TnZO+/bt0+OxyAd+jazJVlUnCrH0JCjMxE1Asly64DGcANIN 1NEit5kPlSfEXpLofQHg TJlpMN+3Buc63//+526r4zbEse4XY+NAd6oXAFVGUwHXrmWoCDSTIb2zTMNad1cmo+YMuBv6R658ABHl AKm0chzNqeCdUk95XL37 hgbHI7wrsZIuvqcx0+tUrgHx+Ie4jfg/lnYCwn8mLLCQhQGyt03FqV9s7RDnD/8z5im9rK2H/7880+aM jMFJDq8ZNBbf5575Go89 vczWMcckApcgifidCYAuEnbH91LePfrEdEeH3nihPQ6O5eMx5mhbPOvquuF1HTd/fXXX/DNqWsON84GF VrkAKzPSSWcR6KT9iBJB 8y1WJuxprDYD13lushku1/CmOTFDEd4fGphbsnh0qSuuv03agEf7mNea6ifhtPaJQ04YXX4a2kw4XMCu 8zXmCxtOl64Jbo3ysQ1X dn0mKPTRZV6fX/kt59uXCumzNrZKd7OV+E9wfuN+57d3tLboenVB9qm0vDdQLpXdzDj+tbi0MQMFS7cQ aVwgXgpvUKcDAJH+sWJp F+8CiVibKkGyE712up4iZVaKC7YnZk2i5hRS75wtWcvLAgkK78nrkuWa0WsqGdQDjUejLYQXuStB99l2 s8fhxuZIe670inFtaMIt Rlr4UQVz6fobdh89fcurhOeL7++0ihFHBOGGDR4biuvYnRv+++/U3qDMMYn4ExblOpewcQ9LA+kdLg+I axs+3PoDNf1MxEhtD9YQ YFYqiNqrFUqeDAtIVQNmRbMZULSlMpLRGVTZCri3GHLuvaGVHdiHa9l4c//fePGG2+Y7fosp18b3rxKm BVfSTVM5IZDQdrDMZpR2 as2qrkilW6b5Y8fR3W0QmCCOg9P7nBr1j2ZDAIo63xlfHNtqn9AigYGG/xDVNRBA6DpEIqVcKQrLCH05 qSfM6xjuctuSL7IN2440 cZAXcXde0pZq5HBjCAIGTKs76778o7RIULPIHfAg2/7Bey5657iSFxgPvDmO/GpLUZZdTx4wzr+33nnH Vu5e+IEV7Ku12swZxQt1 n346HjaueF/e/Scrmw9RerrTSmtjDUXlpCj54Jze/hOXWl7yGzLQxd50QoqHYfdMWEtwwgRZUgNA051j vHZSuQi7fOKgqKndUWc8 L7knVg94+0NX8j051rlgf/ViYa/8fjjj1/7sdSSiaSA8CEKIOUhXrt1dmCGYzHeXYePc9k/KGwOe2GPA GCA9P/+++85jvVUgGiee +2024M4Cu2WDvK13rATTbsjbqaDyBqZSxPk534cN0Vh7sHwe41yKey8NJMKAnHMY/aLlp+KuRrRwpdpR ZlTksGFu1RUFMeAcptUx fxaawlKvnKfRIcREqla4vwoQUTZAeNMqfJc5z5aOtdyh4gZxeIVAy0Xqd5S8vEGQpacenVkK8cTHMHzY n845SCBGiVIOKcnBn5Jq l9Zlnd5331eCwikkb29vGBo32ELMAugSKmxoVNCPxyqJpVSDt/f9bijypyf7oQdei9/IFf4eQmpxQ57n ydXkLjTWyDPoPn6ruw91 lUUqPkSbMRuCW4s7gqPpnsCXFPzF8e6uyLElqX3kkAJHExLz42idWvdcFwslcQ4ExZgvqjVvLPHBelZw Hufcri6fw7ZNK/XHUgnV SrYqc8BFJaPmPQvzdWggozajczEiWOpZ8whMG/o7Sn4543Z4Gm6y3TEbYO2v1E6Rakz9Llio37TYEDWt QrVZcuWqdirQQvNERA8+ lhKBPppyoaoM25rk3aL4YpPuRqvxZRi5B0rQ2vx6fpqgltdX5TBKrvKKg9hkjiQjs3x97fKRmiS01SWW kCutCaANMjPk/fy448/t t7uarn62Koe20/ekLto0yx2oMYugKMGspPQEqzlpYnmSKwgWR2ECpWUzJQN+EJae/Y0wY3ll/ToIeMcg R4ZR/m4w+if3JTZFQ2Ct O0qRKRzXqmvZRwtH00sXeVaxCj61Ub7D8ppCkRwfXU4whOSjoBSXdubwniUFkG3vn7z+m5oE01zaRYn5 G3RvSEAhtY06F9befCrl +tsWretqw9AhfyNPt+crNi6TCQEU6h1eHMNOaJN/eRX8r5Ae6gCjeXydOJzUy4vgPvGZocL0PbjCZg3g Wkb2evEJ62m5ip69Fm3+ tFcDj1n0uiL0u49i+QY1718H5btpaiJwlGxY+euwkcad+t7leTYIBzf7U6mrlraOm6x87BMgqqCi1Xod b++5260glTUtn3y6llON x2zu8KOif6U017uU3c6wQFlnUOkp5cBns82ZBY7XzwWqZb2VfjK5uoQPAIijAch0Bz4QuRqm/112wXCO xjDnv23VVI2OQJO1gyGx vYLCUcaKGVI8m3M/2Dw5FhxbGscNj5CqxNm0iMorl1C7HupbxKZCLPQfHfnF9SH9hiZBlU3u7kHAAW9s 5cQ/eD6N+G+vMa69vrhS QUZ4pkhUTK9LMmbukw33f+5xPGOY6ReWQY1WuRfNx6fxLZwcMMXdqVCKEAy7WBtMmuSMHhwfuu62x6h3 aSNYVcvq80+XcU4S530Y +sDG7br2CquxDxz77m1k8IHxcK37rvhaDLl7/Z5jwz0KNfZ2KVVgaJ2AabTLYXGbiRyIpt9HQYYiTtnn ewLXpvxOmLEiBHKZ/Yesenia 08lMsph94+MXs4vGt8S7258ybPUZTNJX65LKv8Ab6PJEetLZFLwMv1jP333ijWeTNUlPv4xj+uAVYivf TncnjARxue4mthX83PvQ JCJbd0r9EHFvpFX56pfwAsBo9wf74h9f+EeoAIJDI4uZfm/U5LRsV5HpwGYD4BAG9e1g3xPYs/YW1D5g nnpAx60qtzEkWtMpRk2w VVPXM1lVJRGQrYcruFSxVez+/QC5ZhLUDZZryXct2TFexThIgFDInbJeqx1789clCsV5ff0x4c NVUP3x8rS070Ebcr7+z+ 3fFPavkBaYOJjoKZYMiAXTETbbZtdnP1MGFOgsdncB8rT5ZWqNCdAHD/mjz8biCCj9pJvtQ6OWS7Y9GJ FpUyme+TG781ZUVEYB0U ILTZn5Ja0z10zqoDb0pStO5vvGrpWzcmqxMCc98F2kToe5FhcOJsiaMcZEPxSafRwv/Rl6CjirOUYzN6 TQ6JbR3oc1tijYRit2ZJ 1S+nSxyb1IO4+bNSWjbKkTStNdbYHJt/T1Cu1U+00XfMq720KJFjKgGQsfAmxCtzacd8pLZ1qLTUXB8O JGZGUOB3uRp2VG80oYFi eWZl4sSxJxRjyAidyGHX7/URyMGO4pbcvUZtLzgUnhVCDxmjI35U0+4cQQl9zZsAprplblPMYtmoMYw1 YXDhw/FqCV2bZOmqF0CM JQJiChnGBTHxQaNBrPbT7asTWwr5FcgPx5a3vq7j94tC4BRWgj4yQtPAF0B7m0f0zaCwkyxJXCfFI0yt C379+0Sqkn0wgGTynztS YzVafT7leu1WpMPwz9cmLAR+euLkk2Vpc6yEZLe5uQ17kmpybUbTQUCpKO33xzvhD2Ir5zowvXcX56st ZQv0xC7h3JOrt/kmQDBi zGLtYI0klmSrMDGgo3rIoccaZruM7572geTFDTL+iZ7AYyEhykYBUM49OK4gPgvG2eagg0HBP1iAwkPB ZWZLlnX4zYAxQYhZkxjY GQon+nhO0qG02dd4aUTvOiSgNgXaWjqAGzh6aDdsgk19J8pN/bYhjEYjvfX0o9oX631n/W8X0lKrEEKE c2+M4wVtpp3HoKc0PWR4 mQqevz9XguqNOmXAe9DqSv1qQ0O3Mf5roe3mYq15s9cLCh2MoqMbaiBLDOUegOQLg+8cIgreEVO7VdM1 G6P1FtFu0aL8z6i2HI09 seugR5sevVBuKseFtHSVLIlGo2qUO20lHSOjxKGxDBQvazg+PVOhotFsNR6bIbYHvH7MtgqpldwlD1fJ HSBuXqDR6HyrUXBuF6Un Lo67UHtcxuditGN7r0ey7o+Dw9hZW6146qd+sjlMmkeDGUQjO7V8COPUXWAC2cgzGTVoJDcwrYrEFAXu krlt9MpsPw/jTPtBasva PnYbf359teEA0rn8S4h85mxUcovzYgQ5jsbmp6UeWvVPZIFPnWxyPmuuGC1LWoml/wMtCWtIUEqf/jhh 9IPctOyQTeRrqjRrQXJD 9zmY1VnlJRynpTLv9SSmvEfQTv+d1VXnBGNMPRF3o7KhnLyAXJ/tySzxOT5glhSQIuZpYvxeJzYyy4z7 7XlNfYNJuvAqbflCddpb OchIpIWD7HEUPt4pTk3cyHX5Vt1kw1rjsoVzME5616dmq5TRmg/o0Ff/kEDMzUqoFfXZEMJUowN0MQWa Mu0QcOZzb4HDKusYS4CF 4428VKgDWPflo8lV9rK2lZoxHxVGuTrLbXztBP2uC94/NTenPwTZrwwaXWG/JJL2FqTisOdLZt6Tt1dJ L2v66VsJxuoefENWtEXE r4MwO5LKqKs9dqOSwoDUpy5yJ1HN2Cpbn27hndo2stsHDBgyUrcFcEbplv3BiCosBgjMYIu2ewbb6bJW epV6EtSL5ggePT0NnPAJ yLUERqehv8MnjAwtbPILQrDPSwYCGjChX8Of94tHTdnjif4bRjNlKKZtui0JoZXlG7n82WeFB7IoxvPx 4O3XMXrt/XapcvKyR4Mw G44ZTLB+zcoZ2oMWFxmy4t7Fx972DC2CaPs0FfTyFUPEjQMG6Dj5mCJZYQtnkaPrMJq5TqbOekx+ySwz SYlhFjidHeIjHffq29DF ExV69A3ZbEGz0np4egmeEABUy9zoytfdsPhMA0SxRPaTkSckPba8goZcPH+gdZLVjyb91oBCrZpl0HlS 54JL6ZWc8Xb44UZhqM5a /322+XW09+YoCeluUsRTh0S4ow/5YnXmukxRgGB6F5czDTUp0/ZYzXT9/LbYupu5n1Pbg3lNlky5Pipg QpqseB2P8/We+DJ/Uevi OIju7u16RbL6cmahgeRa++7590xnr10PoP8Qa6HQfMenRqY8phb6xwuz/nRwAe39RFSPC3Jw4O61fFMd XKFmU0ONgL6MTzpV5vYa GBMLruLgukXVPMAW7SGbyMw+NxE0gsoJtpxS3UyigIlaxnPEVDkl3YUCPsnW6dSruUxvWoSxpq6W2Icg YjLo2WIHd79TIjB53mLH zpKfkn8ggjkPU44tFSuR3NB2obbmq0TtUajJTgb8XqnpHmLViIJfGqCmhkh20bgMcbDz2/m40ShzDsjR h4i9s3juorgARQjHrHYA oz32EYNczlyWPEm8eAv6PG3hT4503lt2TFppLLB83s12NvH3jWg680yAEVYMQLKLq6RmyP7NaQByWyqP wzodcFckdcaiNcCRC+ei GjAifN0KnxLE5XWN5kPDt4JU+/1sa+71ffAkV6DvZZvB6U+BP8JkHTaG0EgtXzjlaXrugUE7FxR0vRJC XLdPmIDfS4Z+hUD0852X vw+gV3a0vBMaXS3m6liTICg0BHb2wW1CZnA61bp4+2HiTkhSU3yVLwgknTEKCz9cjj8zvQniAiR0+KqU KGCV/jPv8wcmwk5iLoHE LqEZolW5fTyzRouVPsiFEqkG7rN2goRjVOuGS2nxNel4m5bFxykOS5CqdyxIkXmKsDrA8b6zso1Q50p8 dYleX1pAHpIHF9pFwKfL EYYD8B+wUD0+9FG9ZswWgwH6wvGkJOMWMkVo/Ja89IO/a/c2uUjzjF5ltJv0a+SA1rihD6LMMylg6xF6 J2CZXeXo0n5EoYI6B0XW +Q7c517dFHJbVFGzaCvY6a///5vehYP2NJGP+Y5D9ubVcTie/diGPvHOpqPvsiQrRx1u0FQYfbxzwXaS t2qiZPFfPK31lo+4j7qF 4NkoXHxxdHPwz2Gb7mlMDVlRgxt3OQmGwEGTQ7JiFrmxQdePEm7F9zp3ppBIplMkDKD2E7nCE6qyVRg2 Oj5CkBnomWQmt230YCiJ 7xsEL586wNNCkWfD56phzWhUBqD0VaYQ9sj8oerFrQl4L+djRiHJaIuePR1e4H8jmiPNcq53CR+gxVr3 IpEEq5j72TfG87AC1TK3 Iy0BPKQibORuk3TnxAPql8O8vF0EVscggxvzxJvHH+E2t2s7Hxr5GQZZBObPBlWvMQ8nSjSAgNgGUSk2 4ytb4Wxm0eUrnPlQdsf4 nTJCNWIK4KOKFqDAeHJkICPFy+QctsJGZXVjuRHXbVMcb9y6ZfJQEAlfUnPONDsKQasz1APhUJNA3S8U Ek9kLIMaLRDfqZZEffPC TcTWQ09AIllMJOfBHBjZz3TJizjbLtcioVEGUO7hSUtNETPyugyz3osFshiQ+nQA5z5TG1z7L+Ia0D/M Zhm4FcD54fMo9N3Ln4rK MDJl9XpmK/yikqXfzEuJ3O91NotnyjL1whwIBqmH+4f+qxFK05+BDjw7dqpNHGzTb2tZjljlTQrV+sbx NS0pDOf8MgBHxto4jrGV kweWhq35clp1jWrQgj6s3NZc2UNUXi/sr9Ww0I+FR81zWcID2VdePm6v+DNIIsgqK5SwUEDPc62+xpMn SRPyQSEVayHeCyQw430o iSjNOoXjMom7uRehn6rVEvFHOEtL1qHfr/FhZ4cSrjGhqU+oCreb8mGikNku7shiNQVpnn3//770hQYH 2SP67VTieiWQTMiLrJ/G g8r0lP4r7hG2HPofGYnbHE73/iyeTWB73JiwJhg31p0xxK4lSAYwUySrkFj88DnsW94fNnpPm+X7YGJN dotEVTnsihpu2NhGGs1X bfnItMwwgLCtUhK0yS+8qQbkMwxd5/oCvpnNcLfKZSiENXvHYb5QGP+F1NekVgVdcE6BhdDvlFZRrBzE BCGYRjm+oEFCMMwDOMTL ZIMobRGy0XYbuXSd/wGHpCUXJqMP0oVUUfBYK4UBeKyPIwyMFBsMDHspI+rZXLVjsK1fjFJeaXR1cAoY BiGYRifYAHCMAzD+AQLE VBcANHrGFEjOAOcZaBReBYKhnPLBmAUbmYXX7AAKPoOTArMHFbCWYqnWjoYIAHeED6fEoXlFUG7MWxYt qCRujv1CkMaqFZH+fn5k b+/k7wrB0VUTetSsemanIVExXEXwbDLagmXd5uVPmmX2a7dlkBjbka3ergv9eECW7gtU0unk49dkd3O8 9xzD/Gd1nXmPcrxZDfhK DJusdv93VZ+/HzvK4ugFufKevZhuCvi9Zt8TYdIHUZ1GazHxf1jXo10YUJgf7efdJk07gHJ+bdq1Yp+/ uujthkp29+yw7tuw303F w1298794jcyAl6i517/IcsDtb9cEF7x4qcilb1yMXjH6pg5P3kFhHieO3mM6vR3cAsRYo8K9+7I4fz/N XWK7NXLgIbHJfRBRfZdV YpQoUKFqG/uiob4D1pB8kzLs5TjsCDq57UKap+gubqxjWNnATaKVELZbiIh36CNK7dy1Inpw5bOngpxq LLOKNbEiukvRu0UUh4VO RiBAC0mmZQWHwE6Kx2EP5ghP3kTWIkucdbEBUuUSy+mW2+1JLoLgwTc6jJRS5Qps/zwtv8zbRgVH+kTM 3xRSKM0+/btjX79+hm9e zXyuX50kYHD3YUKrr2JmuCuDUZ88+ap0L+CuIp2ba2i7l5967IhwbL2RwcBYCXSoEos901/f4IMGB3wH DDQEIJYOoRPnjypUuSkc BUNkx5uAL0kL54YfcFeIUqbzmNrVYfPYw78DFz8W4+VX3/6HhDvPjg7xtNS9RrLBpbdlobY2nuu6kjI3 Xw8k8YTlPMenCr2DkX1d fvs7+m527qtJzhIg7/3UlYJQUsRtyfgK3vSQGonhNPlqsFIdxc547oRrfoSUR9oamwREpeeXfhl9eHuE WrUjsRrCtYmBpnGJp3fI ui1Gcbu9daF07EkD1ZbkaFRASL8ax3avJfFoIUkY8dD/Si/4emgFYMlR5/BtEz8xQ4SBgzkC7q/T58+K gI6xLjYo9bQh5DYaOLv7 aoy/B752ECT4LR5WhXTQEsoSS++KK8ALsBYOJPa7CA3D+BN35ceTh5b+LHHHlMpcvLXX3/UeruL4zK49 Gjxl1iSsjldtiyleoOgu l/Khj0PsRnBTMfSth64lNM/0gEBBtWIG0Wvkg/1k08+UTEmlSpVuurhIPzLL7+svCLFsODvzi0NIP+PK 59PQ293R0vz71JRUzpxU FcRfL2aQJ7II1Y27Wm6kZksYFNNcj3jCB9//DKdt9h5LxKJNbwQftvWRsKeL9+tLkALTpHU9yt99HPWJ rKsGulbGbkIvCz1TSO0j isJD336A0IDwHinTkhAUqAE7yQCp4R82QNnKEhaNB48ofYeEj6MEChck4vLFhQHSwIexK+z9fClt6c3R cvq7azfR4KZIJ3Jacskt HX+laQtkMGtjVg8jdqBdoWOa4O2s7914k4rMq59u8A11Hr8PCGnKXkcV4h4V//8c+HAmYXEh409LQuh6 2+/IVcyojm2tgsL68vmS eztUvsX7AEFMtU1vLojv//1nvrxx8BTRdsj2uHgTtwyVGTzaPXxlOgetfpYzyAK5PiQdlbiecBzlQYhF EvJjjPlIjCznZeoAfJ43 VMl5VG9jFvkjM/MzDUs5Bt169iP1T+++bih3hnVlR7zwWJliwyztaUfVkkytwIhBzAhIXqycHClooLo2 kDF2XCmWKkMp92RrCZoK QeNBc/C8qSIkuJOaWSywgVE/O9//4Xa8UIkMof6/W2CXA7xY7MaPa/YlAnuJCteiDXd0Amy86NJWRgHM ePW7tRyd9xbmm8++KGxd WkZ4PrELjUm4qzpgEwu62gDe0Rwf29eM9pYzbkDWUsGC8YuIBsciPf1elRbgPkzvUy0HicUkLNnsi49U yMQX7MDSQ+YN6AwF1fTL eLE9keFisQ2rSOKtygJ7JHPc7F5h7RmWIGnS+7/+nqbHNm4oM/28sdPwIALKvX6//94SkSB4w4ntxqxK bFWexLyMCD3RPFuxBzAO Mg056BmVg1pDFLwJS0/DZJF5eeZeRKEp3btDbsb6yyLd0RSIXVBghwa1WXvfTIc8k028aKGnaQTP43+z tLiEXIAAzCy18gAl257y 5dqDc610feg5NGHjcIKyZVDmxDibWuBf/Xt9tIJYRMJrzEVve54YNg5nraaJj+7LfVaQN1R3DEsriwqj 12e9/7777ftx/MY91jWE RYfpeeCUcuw4NLXxzVhsmrmfXMYGkcZrHICU7fUVRUHe2qnNAn7+ffvNxk17mIAio7OPl5hhQXbMfRBF xrrVgG2cSX/t6yK5KTca mgXf1cnr5091aMFIk8CaAZUfl4kKdAN19enuJsb9J49qTBuljgVONmcHer8pJeAw+vGjTMV44kdgCSk/ ff0R5IrPJdkBXPztKH95 jsTIKhHsP+OT18KAiOppeSAGSARTvj7FtTMHdHP9fHjij//rWaBL13ExLTrVoxr9b431lN+U+jiOG/wL jTKFTSthYCx6vdsag5vU LRF734aryUufRlJsz2pvYRQR+0s95FI2q8FIz60REn5jwQV//zzzzKsQaWP+LwA+vt3fnJVtJof/LTDS 6eRZPV6Ie3W/wSXjSd6g 5wxefJkl/e9EBA2Ixc+/Ai9znIAqam5ku4zOSgs1p646UhwaTMKG2xoOSp2w58gFINvhej++ecdXou+R jhUltYGgwaCyNGxAJVm5 54pRnj7zgYQ3g6ePMH5C5qKxLaSXuH8PaWdDBAJsQMvph3OjjSxdR/+2f0VTvEZI6Yq948NGNmB30ihc 9xaXf/+/VUqE+u+smXL2 vzQkJzhSoAAHA+z9OnHb2/WuTcgutDGecOlsdZGeX1HrVdNK92HLH5HtM4mlfsf50CzOAm1BYO+QaN3h M5P74Ask/LBT1nyVABkB ll0yvTGBp2osDTNMSWpxYgmlUfwyJcfrNMNyWRtbkJVc1ptjsyaOYdVAgGBoQCIHAneaXRLoETVE8EPa d5tsCCDE55XU2ZpiX2// PJ5Rx0SX5/O4zLnTccnVS21hz3Nlm+LjvmaCN32iElqRa8kJccm1qFEgEFQUNP//SGZwJjFtQquDw8e3 hAN6pwCEpuZwpuulWGQT 87bMbcM1wz1vL864akMq4SpSbvUdnEIV/TLL7+FaM9mHF2p2xWPkAGXZnEcRRsm8vs1k1P3RTUI23XDc sHV/zpWZWaJ6BtrJKyT9 rqkgaWbiRohV9giy0rCms+kQzBrr9g38y598qVF0CoOE52AIfdkKUAa5IQASsuZJwk6KdvZopH8cAEH+ 0QRMehYOBCN1W59VAhjz 2iMemXFZM+5rhzPdyQ1N1YSb5+iZ3FsmITHXaabf0Aa7eY++cQjauk1JxlEtZW1dKpjgLJgkbTxSScBg rh4ZtBHUWwWcBejCu7RS CXAO2CUfOykDqSHPgKp8wD64Nr3Az4w1fIuNcQbIWto9dxGNkOdotgTuY+Bl4Qqjk0++knmc/ToURVjg atDy7XOdd1jb+6KcQYsu Yq5KN96ASMyIxkqZ6Og4taSV/rvP17alVfbXsKocWZarXJMqyXwHUV47vIapSUaFmR2GNl31dIipqFO6 VteZ2u211AmSrPW2U/v7 TjaCYh7utYq1AAJBOQogXzOlgGGHjryJS01LZSjZW/H5jbZspRLgu+GFrV0tCcylTascdHMJZUyaBPjp gKpzCJfSrn48EkTuHj38 8uzWYw4Sn4JeLxvUjfzIVdVhWqvNi6gfxcbKgpsQcZscbMvmcFh3OnpzLftt2Mpg1PQVjmAYanZQ69Lu RgF7bXwVsJQxt8FlSzcR 1Iw3xtv8qTlLJl7ehQcknjSBK3NE4+yH/bQvIsNvAkbe5E7WLyrfsl7859RZ3hOOyVNoya+sY1XB5h3J x70nFnj6qf1StREaJpRa Atkinson/J2C+EwUAAGb9bQymWrj9jm0zU3i8dhaBhXIDidvn2hAf4IMWFWasiIW8HRGPaVZ1YWUy8W9OZdXIW ZbAK11vYRZEXDRcNZwJJ xdevzDfcYvqZzNYizZL2fIo2WsagFoMvgi7O7WJQJRQ9ohu+M0myTuonyhJT4F1WANlVVN8R2RCsyZST FNlmptAx3jW5nXJwhQwb EeJfmoJRbolTpVmhutsLRSbNeddhtIoruDFbWlRNTqL9uFq/J0ZEYkXMowupCZRgca1Lwb47u4jf4mNA 1Nu7X+/aQ6Hmh9wDHrfm GELH4ebBYYMMQWa0h24v+0Y5kOlNJfV8YlzYDdFM1CmQFsLPRpQO0Vw1AGxXRwp0dNKfbTsbc9TEm0Br GlQcaExgXtRpUoVWSmhG k1BiBqtI2/zrLciWYO5xbLVpHZDaOp8QzLFzNTsH0ip4p3Q1pbCsBzY4AmmMisYH/CBEBYalaygMJESz 5Ns8uet5YfY7YdOaJPBP nWXc1980AlctyLQWWPUCmNsiLCsQHIuWVG2HzpxiNppitXztveVLAeTPWAJmEH6Bi7+ndu8hZp2D8z6k fc41mu4mwHQ6KffsCSWH ++tooJWJZR39dPiSCj5zFjrp0UWKvv09p/Ljvxcy84QoyE05TfO85ZvXoyV7T8np2QRK1ECdhXBadlK2 IH4fXE84RWAAtdOtbfIJ 7sHKNoMjzcU71bjyufdE/uuMJjOId5+5tAxx6G7u6Uo+cFhAcncrPImWzyxTTDiemfpGZ172yjKOHQmH I5pgQlE3+eL8Pli7niEU 8Q7G/c95dBvZlkv7iM6gFsi3MeDVEP0RLCIoA2f7UA9HxtZ04N/2U1b0+T5yjQZvsuDpAVQjmat7EL8/ 1cotAtz7RqEi5V6ojUeP cKPz0zIKYa6MvBgUUrPe1VU1pvLOsl8VWyUidgzpXl1MjD5aH80IcV3PtZ1YXqG53fRD0kfOYBec9O8j nRheZfagp4/4HnRyu3WN 2HcVRdjZ7tCDHoYSWpS5chRdJMc8Hp8GWJ/5HefllcBveBWIPkOt33+hg79tve23c2zEFxg9sGXacFiw loDidafSpFducHBlhtCE R19iK9BGX8DVIDKLU6HoOUO8DRfHkSdFD/M+1YmIQRqO5g0iInLHe3FzXyCcmiwfE/h8bDehpSLbliEW L4cEO5fRUlVcXTkIR3Dw huutQDR1+jICPJdBawggLpLFE7EPstqQ8uCNv9SR4FMKWquvKbwRxkoqjtw7z/NpvWoSOrqm8250rjAE tLz7rgFdSOOZ7ORod/+K I/3Fk/mQmC/y2wt7vdlfnYOK8GXNa08I5hRM2P/arooqlaSf0iqv4NciFOCvddM92WMJ9JWpBGz1wjVh WcK2wyXbmXucxtu4vgQC UmRQzalqJpjZtSB2t+jm8S+slO3zb52a58o8RYfXcneK9Tvp6fkLdKXpmD5ZqI8iBCkF4TUFZQdM9oQr UMHp/4jqxD9xF0j+1t4+ +23U/ea7qW0K/VJZov2fjnqOPoPfTR20uMNBBrQ2z4o41CyHpsNWGONTzPcF1lAgz8DclwO1uKqYBeGi yZc6HWHTUECzbdCvlCkt n79+rkAKZvXpp5OKHoYJc2XL39R9015n1qoSYlMzFzhl/aVMXSu5D67A7Imowwr2obwc7zJME0uUCrII RHKnOX52fcds2YO9btwD HVDk5XrC9tvpTgD4ecYf6X5mgDlfHSXyXayAhGoIMy0vwDTgFtCPbqlpXm2twA11YbGquAcynB55gBhk O4c3R/fYHAJzDvhbal52 4rpGI483lnD266mfV9WnBRNvWLA1LKH64D9ncjZy8LQlVJj+kx9erVEV/blI1hQ0cI2tq9y7XBpqEgEp YRngN/iCoz/4H0I3OP/O 2LrRj2b7G6wgvbqKTyJckxiKuWOvdsjXeMij/cB9Q+6LZEG6/HjArvG2FfsI61oPDIs9hTFEBPyaFMKV EIJi7/7r1rnbkadmrWsV cw/M0O9AzT9HTf1fmvoeVnG5AqlDM1DdQszJyEfT8T5pF89r7CooP10SfDrLNegyYJ/FND8+/mwu490N 0/EMFFKk4Guag4wXNYAv JqMLiBM+vkngIUHWn+wsGL+QiJ5Gcb6JXmcifJVTEQEUzj6nKddYqiSOyz4npXHp+ShuFdFAv9k55gNj zlzAApFOFff9YQNwoLCg idYgDAMwzA+pJYEFPtY4LuHLIoXKGqLeIWoYVNgvXPu/7Pf2NTTP835MMDBQSvAHnMwXtEE></span> </div><div>
</div><div style=text-align:center>
< /div><div><strong>Patient Name</strong>: <span class=clinicalNoteMacroWysiwyg id=[id number] macroname=PatientName spantype="macro title=#PatientName>ALYSSA PULIDO</span>
<strong>Date of :</strong> <span class=clinicalNoteMacroWysiwyg id=[id number] macroname=PatientDateOfBirth spantype=macro title=#Pa tientDateOfBirth>1950</span>
<strong>MRN:</strong> <span class=clinicalNoteMacroWysiwyg id=[id number] macroname=P atientMRN spantype=macro title=#PatientMRN>[id number]</span>< br><strong>Attending Physician:</strong> <span class=clinicalNoteMacroWysiwyg id=[id number] macroname=AttendingPhysician spantype="macro title=#AttendingPhysician>Sarah Coto (Gynecological/Onco logy)</span>
<strong>Date of Service:</strong> <span class=clini calNotCentervillecroWysiwyg id=[id number] macroname=EffectiveDate spantype=macro title=#EffectiveDate>05/10/2025</span>
<strong>Referred by:</strong> Dr. Coto

<div style="text- align:center><strong>PALLIATIVE CARE INITIAL VISIT</strong><b r>

</div><span class=clinicalNoteSectionVisible id= [id number] internalbreaksection=false originalname=Chief Comp laint recognizeconcepts=true spantype=section suppressempty=false>Chief Complaint (Palliative Care)</span>
Establish Care

<span class=clinicalNoteSectionVisible id=[id number] general internal medicine doctor albreaksection=false originalname=Oncology Diagnosis recognizeconcepts=&quot ;true spantype=section suppressempty=false>Oncology Diagnosis</s nava>
Stage IV SCC of the cervix

<span class=clinicalNoteSect ionVisible id=[id number] internalbreaksection=false orig inalname=HPI recognizeconcepts=true spantype=section suppressemp ty=false>History of Present Illness (Palliative Care)</span>
This visit was provided via telemedicine with the use of real-time audio and video via [employer]. Alyssa has provided written consent to conduct this visit via telemedicine. The patient participated in this visit, noted that her home health RN was in the room however he/she did not participate in the visit. The patient is located in their home and I, Dr. Carol Branham am locat ed in [facility].

<span style=font-size:11.0pt><span style=line-height:107%><span style=font-family:Calibri",sans- serif><span style=color:black>History today was provided by chart review and patient report. Cancer diagnosis began with development of acute renal failure. Admitted to [facility] with this December 2024. Found to have cervical mass and bilateral hydronephrosis. Biopsy confirmed SCC, PET showed disease extension into uterus, bladder wall. Completed concurrent chemoradiation with immunotherapy, followed by brachytherapy. Admitted with complicated UTI earlier this month. Treatments have been through her local Oncology team and [facility]. Anticipates a follow up PET in June. </span></span></span></span>

<span class=clinicalN oteSectionVisible id=[id number] internalbreaksection=false&quo t; originalname=Social History recognizeconcepts=true spantype=section suppressempty=false>Social History (Palliative Care)</span>
<span style=font-family:Calibri,sans-serif><span style=font-size:14.6667px&q uot;>Living Situation: Lives with her who is older. </span></span>
<span style=font-family:fidel Peckserif><span style=font-size:14.6667px>Support System: Friends, relatives. Home health is following. </span></span>
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 </span></span>

[...] Care - Pain recognizeconcepts=true spantype=section suppressempty=false>Pain</span>
<span class=[facility] id=[id number] macroname=PatientPainScale" parameters=LookBackDays:All spantype=macro title=#PatientPainScale(L ookBackDays:All)>3</span>
<span style=font-size:11.0pt><span style=font-family:Calibri,sans-serif>The only pain she currently gets is at her nephrostomy tubes. She will take Tylenol at times for this, 7t967bu or 1u430nk. Feels that currently it is not severe [...] recognizeconcepts=true spantype=section suppressempty=false>Bowels</span>
<span style=font-family:fidel Peck serif><span style=font-size:14.6710px>Has been constipated, more loose stools now with the antibiotics. </span></span>
<span clas s=clinicalNoteSectionVisible id=[id number] internalbreaksectio n=false originalname=Dyspnea recognizeconcepts=true spantype=&qu ot;section suppressempty=false>Dyspnea</span>
<span class=&qu ot;clinicalNoteSectionVisible id=[id number] internalbreaksection="false originalname=Coping/Mood recognizeconcepts=true spantype="section suppressempty=false>Mood</span>

<span cl ass=clinicalNoteSectionVisible id=[id number] internalbreaksect ion=false originalname=Physical Exam recognizeconcepts=true span type=section suppressempty=false>Physical Exam (Palliative Care)</span >
<div style=ball-dsjsf-cgtc:none>General Appearance: Patient is awake, alert and oriented, in no acute distress. Patient is dressed and well-groomed,well-nourished with no evidence of self-neglect.
HEENT: Sclerae anicteric.
Respiratory: Normal work of breathing with conversational speech.
Neuro: Alert and oriented, no facial asymmetry.
Psych: The patient is alert, attentive, and oriented. Speech is clear and fluent with good comprehension. Insight and judgment appropriate to situation.
</div><div style=dvlm-bpvrv-uvha:none><span style=font-size:11pt><span style=font-family:fely Pecks-serif&qu ot;>
Comments on Pertinent [...] the guidance of her local Oncologist and [facility]. Please see below.

<span class=clinicalNoteSectionVisible" id=[id number] internalbreaksection=false [...] spantype=macro title="#MyRole>Physician</span>
<span class=clinicalNoteMacroWysiwyg" id=[id number] macroname=LocationPhoneNumber spantype=macro title=#LocationPhoneNumber>[phone]</span>
<span cl ass=clinicalNoteMacroWysiw id=[id number] macroname=Locat ionFaxNumber spantype=macro title=#LocationFaxNumber>[phone]&l t;/span>

cc:<span class=clinicalNoteMacroWysiwyg id=macro _[id number] macroname=NoteRecipients spantype=macro title= #NoteRecipients>Axel Palomo MD</span>

</div>

<div><span class=eSignSignature>Electronically signed by Carol Branham MD 05/14/2025 09:56 CDT</span></div></body></html> * DIRECTOR STAFFING Onc Consult Note <html><head></head><body><div style=text-align:center><span class=clinicalNoteMacroHighlighted id=[id number] macroname= PracticeLetterhead spantype=macro title=#PracticeLetterhead><img src=data:image/png;base64,yERYDb6TZcwVRATMVVvXVdYTCPQDYAHuGUTXQQX8Fv+UAAAACXBIW VUGAH6QE YBFnAWSWl3vRERKrviYNONYSSs0M87mMuDsi7HlQjwcbDXUIWIAUK70gEBww4Q4IVFqX7czJUIpr12xC PlrYMGWUA1iOWEHEFbkJ TzfZFF2MaCwmucmUAHpOe7lVTs0rU7hzJU8QMT2vOcpafs6QNGqZP7eYRejzlkdJZHjYmLewWw0hMG4z j8fIJWeNkYaMO8LMYRsg xHqBm2jPYGfZPOcYeedTRE1YRL3ITE5MLFiYDDsJwN2BlIcSNRdTqVkPqQaZMClOPCvSFSkXeE0jcHvJ pYQRvJ1jElquwykQHP5G zh0dSR2Ac74f8spcyCda1ZtKcH5NVsfYBMcZpVwrmXbFTE5pfRclS6ywgFnDxN1kgWfAjRyi4LvwIL9k W3wCQBhJahaCs94nW8iQ cN3oEpzeil0wQH9Tde8vNO9Eb9mvw2bQD5bEQ5fb40ytBTmMuIgHC9nUGsigI7oIsRxTTIdsFRfLf9bt ODubJ1faijzQQAcWAnqs VPsbFDdQO9bZdPazQ5bucM8vPdzvQ6dnQ7gINFtaMGsKo6uawYpGANnBwXlH64sS9Bxo2Rqh4blxF0sF zMlBuO4vFibtvi4sFPOM C8mlXN9gAqkW48iFdPnf3BfGkCrxH34BIArXV6bG51wYwTweZ6rqeJ1h2KVpoX4Zah4wCE2Dw8zao0iK A4sDH2le38hqLUmSdBjZ W6zMDopYD2YAEEevUKxADL0HU29EgUlkR8jYdXoVAM8f5XZx55zSUFHGA0sKVJLcD71r7Hlg5HeLnAxR YRmMXTzyG67t0VjZIDjc V1jZpBbWLA4UKBcdLO7NrZxGxCkRZMwFepUXJM2Ljr9QmXvVXE8HGQnDJxvyLlIo2JuDjaIIROdBTPhA SPyXLCtQOY8NJBlVfDpN WQ0InQrGnZ8cGS1QNJ1YQEjvZJRZTUhVTJrHDIrBMVqHEQ3JJDtAjJsYRT6UdHhGfFcZwvur9LqEIR2G ulhMOqhV7LyRzIkvGvaw M1ueA2mGeGawF4wVF9bED3qPjJdfT3qRA58MP1gwPZnP4YEJK3ebV6qSrltMQf4BRBkWxJuZK2zQGZyD PF5UmupVDq3YN06SbA8F VNeSiPaGFTiIDdysR3UJqObJ4PsLO23HQE0TmvowB2jvMI1MEFeBiQzCOZtRkcxRw12QYQ6ZPp0PrhjQ TKnLfNfK8L3HSDlFuP6w ZUTMFzCckducP7yuCZyV4HrBB52NKT6RwcshX9eqCX7ZUUtXpPcYNYmQxddRq42RKZ8HOg5VglcDRNuW lNvY7U9SJJkGs5lZTCrg 8Dfl9zccBhJk4V8wNVswHDpB9UynK0ios7xSLVbKuxOIPy+WAdsYYE8gJx+aB5qUmHlUId5RrF1M7C1F PTwAAUfLAL2FHHmXhnTH AT2AzQYTmOvGKauhpPnMtmeCvS3I6YaYuwXBKl+YFyluPsgbX6exD2sCgTkF8BjDE53ZK1zLED1t6ZjS yD1kQ4gOU41KTyieK1uo Z4aACOuKfkNKZL+ASqvLMX2nAdop4QFqwX6STR5jY3oPDLwpvDbiWZkUxZcfHB2rFhwbeX0TQ6zEOxHM CS3uKUguGvqYqmoVyLfE SS0GWG6VCPsXKJaKQ57HDk1QOKqPTthLLEkHPZ7OsVxs8NKitO6i5kzwa9pNmCpHw3kDN5gD5DuREwlE NwsWT7iIywtTPMqw3TAg aF9q21maKiphlZYP1JadR1uGZHdTpSpAPvwjN9viF8pKKTpGnEjTD6zJ6nkkV8ueQvlMy6lMO5cETP2P 6BgFpX1E1fzwQ1HYrlyo 3Rvcnk+QIqlbjTyZaFyt9XrcIQ6nI4ePnI4V5QdBsvTSFF+WRwiyEc6bBSqEIFnNrL9F5bvNCZuOBZxP E6hLDQlMm8+stQ2ISXUQ yBJREFUeJztnXVgFEcXwN/K+gP7oNN8LUNhxyYDAj/hTDPteGtjFEBzNanxuz4XNXsoDHDcLJwjP9aw/ NR3iw4JapqmMeBWngU/u l35f87Hxt8+qJrjSkArODObXEtzXKNhsEw2WEbNRaBrgJTeQRfDaXKLrIKbAXlsGKyuNNOEltYEX3PDj BqwwsJgMKUGrLAwGEypg S7pAmD+V5HZdEm/fpeUdOeG6fGPzlIWm8nPUX5rbm95YQsluPXMc/zviI0hSM7UBdNc6bmEGd2x4fr9U MNwLIMQAiBIiqJomiTJx k0a/nQoNnKeORfKXZC7tVcO28l1w+btvYgNH7K8WSw0FuBQ2bOGyc2OWTJyIRFDlRjAlMfF0ohSTuclV bj9pYMZUjux6fDUBMggR c7S50ZNZd33U1RRprsJqi9z43doQmOqzpSE9zURQNJSIl8QTmXoQSeJfEMVy+LEEumob7+Z+hJTYJ4cB MkVBphDj2Ev+tPjS3Kwe 9XAg1hs+8ef/PqY6OsVvXQcpuIXUWFsSTHVNOXhjsw67/oLf/5BkMSEiRPH//FNiIFmP6nHYlwgchr+9 bpXj+1faGlqTq0a09G6O uAX74QCMBQGlXucIRb6xYdOFPt2enN2gK64dx2HmwA1U9JNM/PpfWzo70//X58fVIcCgX6P1xzYroGeh ygTZFFhh8ztkn69tgfAA j926qS/v/3nFOdxkeQBUDpuCQSjSK6Zzi0vRSe6grCteKvpns1ejgGmdB+/v7//sBScnw2rJG+48+jFq 4gpk7RTxdi0nOrgD+zet nvJnEaNm/mtnLuqNyOSbdtnShnYURYos5xEyF8TDfT0/MOWIt3Y+p6F83UTMoWcAiyAy8PYz8zpkcY7E rZCYTAYDAYDQRAkSRIAH DsaPZw1UJzNVcaQDi0PX3sDW46nDRGg4nSCf/dgnIErXxwnqN6IWeu9fZZxajk+jzuV7EmXKAcKGPFdQ DvnEJ4TGnJPTxYPJlagP 4JFoHc1x+3EMf9+uEuT9abdm39fhSYklq8Sj3Wi3NfMahqEu4Yk63A/svFyFd0gOVdpTHcwcIp4/5men g0AsGev0wBq+1WrtvWCO 5erXpOkKYNWm/+CUanABK2cxs24/+J7U6eLxx5BJCP9RBynCqDlu06Ns7G4rtGMAfHHxok4+NwGMl75q lbiMqpqYwRDTPUxHda5U ba0vbqYYMLb/n7haOA2E4qow1435cMDRssLEJdOBv2zysq6nn66mdDBwDdjJLZpUHFKN3LvF9oV5Vzvu WdOnXocEUGLxEHNWrTuO 6lib1HPoZmt6nA6kZTsMta3mqTh7LF6u648gcFS5OlwlVy3iBt08LW5th47g+Uy7ENie/9+HvL16nb42 p538z1Ma9OdgQFws4/ft h1/lIg7cU30dFcsEYrUJfhrZLoV+/y8sJb3nijzy2pWowZLUcglkiaIvUuO3ivzrgA1PLkmiNTQMQp6y OStOnRZcejshRTNpXTd5 QzDH+GP+o4e6+hs3sTEGjuibUnSeyT3qG0sIj2Grwd39svYwbhOk9jJ2Qc1beIa9Y7rKo9xpSrGajXu2 J11zueGL0MYVPBJwlxoH GRk9YzUcAAmB+7SxYsFicXHx/g2oVoa8XfhFYjzTi9qWZp46giX8ejLcuwWOzgDLudd79TqscbqEHVwQ dslWL1CkZQyXTl346PMX Malv87A8FYlScE4jqDEx5s9g6Ou2ge9VxrY+W+AFRYGIYS+GTmqnI+fh7rkcE0Dvw+H2JxOPjRC6WUUt lwCtW2UBbA2xWdPl3+nt 6z9Y2pfdI6eg7KIuNVvEhwa002pC+aJeultSnZDxsO92NrsKn9wLQdmxIcK+a+Nb3iOZAKfXpm0vwfAu lNbPo349P5AqJSwCHgjm NRfhq0vjO1Zaw3yLTjAq2ySOGVPMgXNoVg8VYDpMcCZiBa548+HRz9+QZXGTj9mJ4VJ1gc5DmEsBFOu8 X2Z917COlkW1B51P6UUS CIEGmTKEwD52VHUV92pixgK9fmYfnbEwMQgYuCvm04rco2ipecDpH72SvQ2VcxQtb8Evc7yGlBi1c5ax 0cwDA9dBGZ59weUx7lWG rl9CbacskWnULD/ZJNWBGw25Hwfy35su47QuRCGuS6mGAtJ6qqxC/4gvV4/y74dHHNPAq6Ow8ReM+9Iq 1FH/0X40IEaSXTq3lmKB Hwst784p4/nj1i/GREPFNjBeVdnAVYNkTGd6KHtv5Wwx99JcM/R/MLBCgsDqSmpDMPUq1+bKBjs7Yu35 mJjXxwLjnXODxm5d7oX+ /NkkQpRmty9u6o1OtATuRzeIrpZJh6KRVVgRz9h9MI3/zwew18vJ3+4KWRONpM5uUGebDLDy0vGVam7s uFHDgBNlI9f6RQ3FLFzY XK63EEkWPmUmldHrBIIGSnnVu93Vs7+/aRh1xJXxba0lgfzuWMigj0ge09PfJ6SEx0+4Klj639QUlHuk nbCZKFGI+I5JJNVPWNwG uMFdSdCOOwt3OHJm0bOEmp0p2m6xXh9nMugBUCcsLWIihq4vh62LphjWv1mzm9yjxj0oUngQSmclUrcI rkYev4kyFF+vWCFhQGKo kiStHdwBACTHzFB/SCaWsRG5jv+xtFHE1rgsm9LThrjfFjOjeGQKHdhQTnS2CWe7bLU3rSNhvGqoviS4 BAEIARAAAGERqPRaNSqP PLmYrrESAI5dkSyAKhWbOIPbwcLusMC9r9S3ms+3IsPQHf9dLCjqoUw8DBykLoqr6hPcFEzUruUeF/wR PVAFld4GpulHugKrEIqk 0OhF29h+rJhv6tyAk7rZGwfeB4Khb7z9eRnGtdXSSv0UeoesCnSyzrudiEyWoTqSkTWUQovhzq6soa42 whU00smGTMLJ5Hxqh7Bn UqlD+4/sZzzMphh4Rf9e57nHeie8fdYFOXMkKNZeUmAOLZZqFYh/VM0nOl1qwGOCcveNTGGs2tWOM2UF WnpZ0+vQr3z7A7vc4Uhd obax5ETdg/avTtspZSur8vUVkzcrGtgm/AIKl/Bf+S5wANhTMYbGMTO94r2Q9CquW30y/y5e+E7Ls7lY +ceL37gaiBBGD5w7n043 JzKbsYABADSbzlpHxJh5zoe0le63FSxt6zxBpcLHjT6zRYV3xvWITPLiHHuwjhVaCdYT28+vhzLpqalx gjmia7y0uL+/S/jXpbxK tOle/zvXr1zTAaa9VubT4jPvnfvuLjXCQcx6nm2FJ8/VN9FC7jI1/NQPZxWxOJDBXq8QYHE254yTBp56 zVbJ5bWezuQpUxKpyZGg nW/Uz36/R6vqo13050/f/ZsyJmzi+pXP752bjq93GyBLb4f3BoVkIdVrptY8XjnXej/cuL4RZIRGS+io 8t6+fGx4vGknRpytykP1 xiqp49O9seu6E4++gfBJ8rB3cK1UGGKAY2AxQN1pr0UOeZFjFKAbBeC/geLZybrQ3a+bo4HWRe11QUzc iJfRgpcHZymTZuBEGIRQ ukm8BbGYFooc4tbY8c4AxdiHa2oa/cr+/i80KMWWWb/BjtYkEZf47/RSY9dP7S1miTGTyf813NCErqSK 3fDENZdJPRlZ86VfMWev X8bGna2a+oryzdz9tyJm2gC3xMZ7g4RgejAVB3ErhbpIKhIYcs5rBqxz3TjuqdU0+ufjuEDofUDFwW7Y fv50wBv5+4ly1Rk0XAt0 qYZOF2VN5svqn3tOU4CRZERMiFiXLXGspkQVqZjVAEsmErkWo2fxZyPne05oljlFKjKMLFHuKXbCisQO E2TB/rrFHbbt5HWw3bXd h7H2QfqCfa3N25n0e1kY/PnGZTFmeEeLrj1TVc11CaMcsoEhXrn8wc5l3Ya1whUtDsSAgrMjd0lOnr2s HY2Mv976npDii00nQkGl Vb6fSxgUweA/OVy/188jt34zNyfbkhtAu7HzguTP3ic056LgMtnBMM/C3RpEXPtjii1om1hclCKX/62f ujAr7bJ37oTe/0NRtbAw vtNSvyI286mMYzZA2fZUvrie1S9U3FFAO8dKy0It8vQ6Al0lsP102yNf4qVWMKryt7sDOwOwrRidG+UW tcdJe6aQYq08fwe+gxZ8 iuW6e2jDqnkZ1d1BJYKAFKx/vXbxIAERnJWq6r4s9wgfXcEy3epLEBup4N+7v0Qx3PHES9Srgkyy7Noo Aaz6LjdEJHI+29O5AYKv IOqVywtCNEuSqzSMuzT6MzHe2duPQK5geZiPLVSRdEstB+IaHnql1fKkjjYwayos+4RowjXPPj0Rnjr+ KuM8AkGh6dGlRIY/wsEZ OjlQ4ic4TA6aydAeD5EDX6dVqFt9E//DSQ1hdRQZktwicpadRdzh6HyWhnPOGKpXEYbwKqRiGQGIVb3C yCdtJpr06Z1rQ0KPcUWz 0uXbd+9yhWfYgD1lNreguTvH0tKuDJT0UpZEmTbLlPNu4TKl2Kr8eaqjdvENZrGZ8Un7JLmNQfUVpf9X 7ATR51Czn4+Y8gUeSO2X j7oH/osaVFDH2db126fNAe0aRnYtEdkQVFERkGX0Io0Ay6+WjE5MjxDk8SFfKDx55k8Z5mi5lq83e5OO j2372LQVwhin2HK3vkFk l+Ds5w7FyQ13lD+K2LwHUfNEVF0UjyqxgDrfgUcZ+0DNZgkqPxXKSKnkl4+Pef4PATNLXe5GoI14l/3B J73dFoNBneMorV93AMAp kYi2adbpiVYGHyEws6O1fCWe75Hf1LTGrYdVjW8GZDxhD1loBeT4Rhd4HAyJsufqT4z1nEwJ+jxy1Fkm lM42dqQJkoZw6rqBPfpe BI7+3pd+0yJlRhva24LNIntwzLHNy3LkTfXX4fPLOJhr08ofRYaZq0CTPCQyGWHI/Cwul2RIahQRcUkL ty7fe/NxGJNjau6ij4Fs 3GisL0EBChrxCU/3NPVojQIJl93jCJoUlL5gXads+HejFZIhD7bnGQ85ecD8+gc0HOewmRxmQvAYzD2a 2rPhiXAcj8fa/b0QN+Nz mMZQiyR/KJeAkVw8OYwqkvJbIMqSwxO9C9rdj90epKSyr7WjbwGbrs1DbWIgts0C5IKCd3Wi752L/9Kj NG4f+8+azRLPP3iUMnJB kcJ510ZybEJ84smsjIowNDBeTuWVnt7z1jYLfKJK/lu77CVuhjVp60n6f6wnJLlxBjsNAVcUzAu8yLdF IeEYhEiaLEILZyvCLvuv UrYgacaEiWViBHRizkDuqFLlfKjg9eiDdtb3Xtade1cV78pgJut0xVF5eOysDzIAk8u2IdUL7JJLcAoY jFZJb6diIvNsAC9Ga1Lb EIQw6J5aeY4g7dmmAxw3c/5Njz6DnQc8LaESHDCgzPQVZ8i+uKuISsezxjFbhrRZrKgqJ4Ouvi0vSYyM letAVnFYEBgSZZWf4YGg BkH963gLBUpK5QrS9coLV7WfMC+ROJTsD0mAioetujKCySkSmqOJZQjo1taiWrWVGsLhyEchr2qODUPL 4R2Gp06S4LU/yz6q/E2a HkfyIN4EjklRjfB4dB2kJjTgvGX30h8/6Z9n7A0gsCPVSXjiK1E2rO+AgIGDIXoVIRaEFRcGKzmq5ZMM tgT08IWNaw55dUKhAasB gFLMUnUkvH6ff8xhtaS1Y1vxajdQOPVKVSQpjF0Nm2CRaLHGS4YWPYPUHtbTC5KtJeKhiG3UIr8G8cx6 jFzvbfJHWz8ETPNkXwBH VAGl1Rw5Efp2HiTvpdXlQSxhoDaeo1hBJgzAwqb3o8zFxsQYHtn8Ue5EmWTEZ315NiNY80YZutVge6Jm jcJczNS+fPyLONZcpWK+ uhltsIIXYuBN7LbYUCQAmHnjGofwpAM68KID5M1748IR9c1NG/j62++cyrWQu7dIQwuebJiayxZdSAYL LhXlcEOQ2s23Ahqxn2qG hvNUQjwy2NklYo0M82LYvRUFaNJPupsn4YSoKuDZOEmZ0nfelbnmwEJ36bbO2qLVW0utoTfVSjpjdF8P /KKQlDugIAl9WrRRb6Ws 6DJu33iQp76DyGanzTF+ed+F8qM05n9i/S60DI4kA5Pm2HCEM/PkTuWcas/Vyv2l14Y432sOW+izx4jh QVdAo3nvgpwyCSITfyry WYpEf8yQJ7gBkOaXobgF4d72th4frvBMoKsQhvQViwT3QxxZZLq+RZxMsjOdfGRHNzGm5CC8V8yr57ZU NclCvuU16OTNMsQhAuXS M3ScAoQAO39d38HBQIfhfP72Ca6z8gu8Y5PQVUppTLF/asH2RegY2zUPEGtevlaNfDLgdk0PSX7LQPuS fRh7mRzPX24s+Pp+ROkV O0fqLJTopRJj7PhFH6lZPH/SU6MNr6Uw4LVrqo3ZSpINwRlOCZh3ndllE/7iupCr2FdXREOoyoc2g0yn 02lpEweZFhdCWz515SE0 +Ts4LUFsnhjZVRq+jcAFNk3E9BR5+8w8qIv1GVTxD8JDSI2aBPv8jKHh03qNm/AoET0BTQswBZCMOCc5 ayZPoz1XjgxMKKGVO6Fj Bernabe/Zq1rdl/JIFQbPRjtVpPUJZmr7//9vGBNs6CKoEz8w31H7FkKw9c7gsHyqNROadm/wt48NY7gxqnf V4UrONRZp2ZQ856jeEmx 69HxMdvA8V7gQC+O4jpqAoHULR/FcIlhaiadwmfVc8CJqTnsEQmEqNxhX81d0sBkVfcw9DGxqRxyMxde 0Hhm0Xn/2PtU8bUOTGXS UASCNA/PFjFZzFCj8GMcJ7rcR9VKjvqhuAlvnvVIpEUJiClVWK4+Vht1As05d47T29VxL8AtFh+cm7Kv XljJy8krv5dJ7u6xSPS7 xuSWTlmj854p+O7gqCqR2j/Oytob8bCzQgqva4tIDz2eZwQFH2bGVVHKCRGKmQ1u4KnAKWbc8AQs0rxY sRGL3QOlKlpRdafMS82B v08VxYO7l0HwwJkYq/5D6b4hhEzpMc9t4kkMSJuL491qWl9FtUz72rIygswbYuU23aMd8c/oYhEonbtg 0Hq3l7oz0r0BeKpCyxqB OZdZ4jbEP5St44XHnzEMzYv6UO905U0s/HB8HTmA4gxapeC5Yg/997CDGlBCj5Gvma4lW1P1hUTNso6y p3/D5vAXYjpwCJNdlF4l hffGnjWouLq8Rbo9ln3tiiigSysvFbUS3wVUBBKquH3pEkOkqup938m17loHVM5/xkVmpWDOI8RPoECI XLom8TwthSb4H3YBizeo 8r18+TVHU216dBukSsGFQQkJeEezABkSTc2tpD3302HNZvsY1wx7pCw2G5kx8KqiTPmM0OHDVzQzXhak RnppEisTktiMlJGjxu/8 8/dPr6+DE29sCRYN3274lncfOaHtxV68+cz9PajTElfVrnuc2achhLh6KQ0G3ZefWCKQX6yi1EekLBFy N+u9VtvpuzTseSD6267M Fv0lMDE5oKxn5FMvbsfm3WlMWn68WDyzUAkmL52fWr81tPc9bnPAQaJE3CNPMXhmabDwMgk/njypZOMR k3L5N+Nn/X79LZnnrmkf THcnKYVf2Yq3BeciaiJSLKaVD38/RJX7PTJ9wKDBbTUo1rKQBT77Bkb9Q788BAmc0a1uP0lcSAmSmChX Ne8ay+tWvVhEwwRksjlb 0XgQfalsCvdZ8j4cc62Mmi8mocoX8i6cASwqxEWC5KWsjK35YgiOkdMTtGDuM9vi7sXfYm6ZRBlteG7h CEBsLCMnJQsAcIH5Ryx9 V53g4znsadFicdftKkm7Qbhk3Kk9sjDMTzFPcfOUg7wBsDEPADc5m8syw0BPPp+AHleidieN4ZzDRWhZ 5YuZLW5vxFD60qT+z7pd cKKpboh3+APnODtThGiffjsF44sC3m/bHionsf7WYoQ7tVi4XH1i2P10xntcKWeA51WP1/CWsCUBrDCw kBiQgJBkpxYqtFpxBWr+ 6BNiPn6ZJwf1sadwEkUveGNanA3RfMTAjQhU2rLo2hVV89yQ5B97/sxjr//ISOGewSwpbkLZriwz2dSC NKaH0EyonBGsbFi+O7Fc 3jkSUI7dEy+0/B9njsmJQ3mYlWveEcrpPF+MO3QWFNWppVjVjjAxnvmJXFZg6GVpC6xHeOGTGGs2Xb6s H7lZtTcPGWNYEwlAWVXm zCTOqEtg2Y6YJCWRJwKc+mr96vzJflOGfloBzye1kTITiZ8/CwCnIiy1aYPfwX8bnBIj0B5Ej6OpWL13 j7ROJMQpFWODPTl3azt9 QTHcazRaDQaGIM+2dePicOJVTix7Rp1oExh32pPdAKLDbUSFDFGW6Xylp3gVPfp7LP3OdObhmHyAcSGk J4sUXPYJCnTMa9LtzWXe zxWIEcF2biVQjZPX3LD84ku0iudGXPJuKho4De6Ccy+pamJnm2C8ZA/CpTvecqy9A5bPYMEEdF9FvTh8 t52/oCzbUlNW1MTkVxET fGLPmVzMKSrWMnrEfxXyzezEkVCnFy9MaZkiBDS5Soxn9exYJk3a2MRl2QR+AyJPRnfSnTYIDs6R+0hj uDMTwgxpbVbpDHtDk8GV CZSTCWDUFgruHyfweO9eotmPCWE8CFZMbYWyrQLeXzhnap9VweJuvHbxkghZFqGzeSaFS1b9108k8wad JxzAqrrMhUkywBBACAAA jlagDGRUNqxdMVpCFCiYxw0K+eqNCxBzg2ZanUrKS55N/cgnYaoXkfFckijfpc1/TNQkOcaLmrSF02gS hrfsV80+EPaqA0QVcHmQ k9cMD00L3ucqdlMfnCaJmPzwi97K/eECMzqEoW1lOHSt1hNIqOuSDA/Hu4wwrz2hx3goPOds5tINbzrR MCWaJQSFtgCxIUr9DOu9 MPwhy9VLtsIM8QwGBXoX0m9GSr9DWg9xoq4DkC2VGlgOPKzHrR5zOKkvk1iepkr8Gfk9ltNCLkeQ+tHC ATGpxHqHAWIpcCyYNHGA SGGGUadG6oxjaUlRHtHdFXufNtATBEwTGpxxSz7R5xFwoRHjeG0oirjzvYKnmql09iZx5qQlDDEAARcv YQ8M6gKLloarBUKElek1 HgYCIhGJbpOjbda0p7EWQA0PSz2v8wFb8ThWgD30qoM/XzXVqoBUMW3tTLM0kfb0SbSui6CJnZByEwON AAGPVGjrsTGjrkdqmscD OvcetDxCJ1UjPuOC5oCL7yWjGPknN7qov8o60lZ3+/SosAq+nFhm7aUQ87N/bSmKUgRptYd8W5VnqBs3 SZakiY4/XtaEgEAcAIhH R0bfGIUELP6GbB/S31g/g9uxADKtZsOit9z0Nnf4Gk8ccKGrJwXLNvWmeJb5tFLA0oowCQPXP32YMBFH tuZM6ZNhIIwibp8/Rw7Z 7e8g3+oLirF3ynkTk97bpO6eXsXc4S9i5fWJZQtkdr5qZFks46+FaPXAfu++TaKDCFtBFeYk4Z90NmP+ wLFby49QAL+0bL2xLrBq +U9e/VEAqEg+yX563t7x6qJRgOikr6aPwPnIWD/U7rzSd1dvGBv39CBiCFwk9ERwdEgFadDhQTvWGTw4 RjlgoKgXT7jbqOO8srCB hqk4nz6cWReBs11DCJO3brShAH+KfG32ruso4Zg9FW9Rby/3hKu0ljVzYjDRCpm5dsVTVZzZX/Vh8EtL OkGgJQoct7mTlHlkyhx4 bCnHHHUYG6UOxu6YoPSsVg27um5n3y01XYIFiflBskBHJbUrZnJ2xv25+emf09RzaC6aMYBBfannygHL uIcT/9pe/whxz3beL93n 64cBFbdCDLOQDxIFvQd5gqLPJGyVuoPJRco+1WzticXyBueMsa59oGMN0U2UPrHXFGag2Un/pbg9gDVB IDJLAAqIqAMX07tBX00+ CM73bxMuwxk8H9hPPuhveQswL7yRzjuc6oTjj9yTisXbS5+43Rsu+lO09SYpnrtivx0Oub4/u2qUegEG opRZjUGx67QTzJyk+Z+m G72VHlDGPZKEv8DZM9WCfPu+15IJxvDqt9PfZKDZSOQSOo8UCVTLdvzRlCR0qTHAHMERyJ//mXke67zM OsOoju1VT/QtKMGuhr7D M8sLL9uN+x4eFVzwe4MRizidtbJThOPkCAjk9SofnbtoJHX5KW9cA/uCxPikFCkqRykbBKsqtkQyWxAr qSD2YMZVIEROLdvFyo4/ Tr6ZBwfx5Q0jgSVIuMHhgCfs3D/y2we2ap8qq0ZEbDeDUseQLJ8tl0TgvIOWgGPzws5rKiMk/FSyBgAr LAwFkQ/frz0l1+uh18Hj yGXImSGRFgxrwLIqeeYHCQaYxDIeQEsPd4TFHr9TuosliLDXDDUdl3UBkTXqNYGQABWHyGNiES3Rfhal xieepAvNOOwNyuIA2tP5 u6D5SLQdMf2kNTLInIOkLUJQJbR+Yi3Hwvug46nJ0/1vtO9A3VLB8CYyCvPAkz/QhXiARHzwuFdFS1kL XVLuTF9c4kmkXjRyq93u wuoAxxF5yvnqYNvTDETvfyKiKVR9JMHaEbR9HBt6do6xqFiozeVoUuw3BTcdkhSPNENtruaRFhTo4bcs ia31szV8Wn0+tPFlBqww mQYgMFbQD4Pp9vC4Bg6YPdc5Iv7PCy0ACiMmsLfy72U7nIyDDeLDR7g4sEJ3KshzZdVHOQeR+fJI26M/ mHixMmTEEJZWVnZCkVOT x4XRXFyjGIkcNN4lJrFXuTalCFyvHsgc/++/FeDt3/y9/MYF0/QaYqIQAsAIdfdq+wAXuPn6CB83r1El eJeaRYf4dKeMBnYybFeR 5KSPH46Yj/viq8kwb6uDYx5rZOGQJrNEFHdL6Osn7ppt7jekEz6Svcr8ePl9UiMYbEjzDV5rMZW4bYVH yJu3+JR6czZRSJypiZxB CZWnFukTxcRMNJNjzTaFHI5uS9lZky1qjd5p2t+Zyn97VGlO9LBnuXI3s+WilyoL5dpvsRfoNKmvJAWA 6+rrRRodHTjJFLCYKCVC yIuT4Hn51C7VKPLtl0+p2grqlFNpVXoDwj4ngPX9m+i1+t/AkB4vj0/JGBCRBcKLZnIEZvCLMkQfm0MB IimkUDQqHHjeQsW+vrhL 8LdIc7xyUU/VRtg5Ja6+2xevCOKIp81rmQSVPbWRqpHEByoAA/qrGpWi26D/G1pgkW2k5b9/uGt8Sluj n8Y6fgDMMMpS425qa0iK VQLTwPE/WXeuWJSRGwLaPwTfCABHHloYJEXIbXALXnRowBCZECFanq9BQYFuDOXLWucDFPWZsXPXFuNg pRLXHDMgdh4LGOLuASVM NaiTGAOKvACJPzSjgIWOBHBsxm88C7/Y/8pPQcr9+gJWrWLkIppZdsNO9Uy68ArB3tjzrFds0JmMOqKl 4Er8lp56re4+/aVC5YAl LozUQHvyV1PACMA9MJ6tVnMHeqxzYXJUSXyg5kT+c/g4C66beuk9rm8U2qUohdkUH1RGFLLnx7OgBm4s h0oETv5FsNtx679irTJx ny1uQzgXu9wgty3npmbpVqg5zJpx4bU9+rUSc51qDKz3xHdzHxloFo6pDtZYTF3l4m4hMq71RRFKo+vz l769c4Cn5iSYSVnBfYY8 dfkTm5s2dr8k9Nb6RtQH441dev5G01QTSg4NXUzk7seINKMbx5PKlVlVr62pqfGIIOhXxCNb1SfiYavZ QdK7SaooWhu+jslxvyHS ZtXlAc80uHIjfQp8cFvc2xOVCyRHtXddEssvsUtBo4LnZdZU70ze0KyqZ/iYikbEObR3O5yuLTVq5m2Q GiYwXGVyvJm1ZRmPk8XV F3dieXrJmPW1+4z38eg3+ONpomZLUpv1GgtnxmyNuAWUX9fZc708WwSFgV9+PV+ibxnk9hbqnlOKgLEw 2DC1pBImz6m7qDI2l050 XIOF0OXM/V6/ZGDh/zK+blu2r9unt1oLZp/w2pNrAEVk5kdfLXD8Y++6dS5c+Hyo7/2psXVTnXZif4+e qOB2PoMJ7rnAOAGuLRU8 WgsX96/Q6eO/T9dShOBwwaSp9MlqbAgBtuhBmuOq1IG0DPaxWDqhqAmaNhyCRiMbHdSKa+PHVOcWFOmT eO/aJ+bm/vj+AnmbXnMf 2GQ9FEfUa9ll/0alvfz3v74oXnh79X75YAH89MU9GvmHf4kmAZ/Ln/z+g2/3X/eVPeGCilN9t1tfV8a4 9txcXG/r/rqS7PC40/Salguero 9c1Ha12YsXP6twIg5Y0UgSnr8wg7AJDbJHLnBr/e/McGrFy5mp7Cp7jXc2aWpUcpEgOBdR4jQKAjFHYG LELxAhro6arCq25nP0nO mq6rPgRJRt8wkBT8kDCiPVFy3m5/AhHHUJBU11u5hUwhDnkWpZYe1d9C+FrExfPmKh5zuFJn6IXAv4sz HSy+cGWdMTImAnBUJ6v1 ykqlcPfa5HuH2Uk3bDeaWrya4tvDqWOYjVATL5XFoZZo0dv3rFZJRIZnIGj85UKNmUACQ1+iBl06Ze2O BOxIOr4wno7xJgrOhoaK z6+UJzsB7QVCG627fIWZ1DyDgytUqX0oJlBxi981+3t8qXEtziAab2j/cmI593AVzmLJnpU9Fs6DTbmZ 2GYIW5to3PoPOlgily8c L2Hlrmt1DSJ83XSn256bTBYie2KkmtXycw+9D8aBc0Fa0/f/nQ10rDKMlg9qWxNXVsQdhg40LYOanQqo UbTtGkzqcxSIXIcd/5ci Sfoqhl4ULDfkwz+nt6467DgOY+NWhMeHvbg/o5sVigKaHGOu7i7vf4n+Vmil0ObDUH4gquPJAcuMqGxo VkeCVlGkMLG5kkUJgMrg loFdoRRJl1a1ecSbbVRdqz9pxTFxbp7wjiSTO1gBGgH8Hh0Cg0jNcz4r/jsNaloJD6YgGFx5+fbrHnz8 lPxeSI5LXLLMSvwHVWuQ U2CtiHTmSKiJLLu92KBvUYzS9ynwTFZl/f9qvMVId7UVmo4seJGl0vomPDLbUifuTRQKyQs5pr5w5ztr Ba5GhGs5tKq9xre1zpjS D+mo8PJDUNuMUJCDDbd7dn6CtMnvs2UJp4JmIXvejj/vZAk9MxE1mGl9nm+fy6DUj41S0CrNYZczIM84 2ipimJE6b9i+l3r3BHpl qgUQ9moJgTvPSkhj3K/fviPf832/0pGLN2fsw9xX4kwEKMTFB1d+1iIXGzBfOZHLCsRj4jvWfyf6+PrO 7KbSKOFd2U/6zTQpAs2w dWrHPupc85del17qEpjoKsJnNlLxdaYazvKm47xKTZx46uRG/7Ytr1v/359+j8LLSmyoKWZG6mLnUZFD uOrK8Kbu5wQreh7+4aDB s1Vi5TzG0dRPHkP7XGMGhGf8aOCoMyRxwhotgn9lONVxNuVjQW+/Z3kaupr3gOT2NBuVRoIif64XqkVO fOIvv57u0liSAQyVo/eu SCeeZjtooZstqvFhphqpfS2d5le6EKns41/sVhcUFE/vJZVHjtLGr73LzNS0d3+uS1lhPD4D7jFlWERV Ze4kGSbGamlRmNXFYMGd eTj5plMwGLE4XRk1+p1a/PNEUrs3Bu6yq8+HnJSRz4fzFv/4hs1Io8wWspslSJSrcsZGugZowpR2Zd9r c8UO0awIrjkUh41WRgtA FYvLGPw6txID0CXucEf5keEwb5mZ86SOsvIzNGU5fSj9r0lEJt3uBUOdkMuWT6tOwz/f/ciDI74RdCJc h86MYpe8fCF6ax25+aNm +jk1Sv70oShUBlmPXq/Gd4gqLwzT58h4INa8QJbyspqMdJ2yr5+MRZnsBaQHA4rXSd27hzt6XJpbNam3 F84c08twui1y47BZAhNS egk6GYt56kyWg5ldtv9Q/XNN/C+H1qHi330p2lcjHwaP8bBb5QViM1HJgRUHj23h7ZD8gJ0rn6h+/v6+ su5Dm5PZRLrYr1oCr4Kj ayKvx96vtAnyggQH+en67vf7NRkSyc0LUExcQkIeHRqKrawe2y46YhYg3Mmfvv2T9/Ufq4CQWiGI98fw htU+1BDV5Uurvo6Fk5r1 NaJdZEI19OQo4hKAqI1kEdeT88Cwq9tT8znQ/f4+/pt37rN/OCjhw/8bk286g0mKIYD4JLx2Bmg1/j7+ u3Y/kf+0N07d/r7+jVt2 VsVwDt8F1GyYiqDp//y5Uvzg+QUdRV57QmZJOAeVktjgnfrh+3v915rcTg9edxc0xE2FMsOlU/b1nSHT L643TUM8Mntlmn4pFXPF qVOJulc2hBbS9K62zlDiFn57pEh74vWiOStt/utv6/f/5d1Yg25jhWNSO8tsS87SwO6cmNvr5uENTNpW /FmGDpes9E1d/Zsf1+/7 i37vGq9abHRfTVi6Czq0/JSvMtjJfXkTYKdEMHqTal7tZ/Lt9m8ZAfAgJW71YlGmNnEi7wxmd/vvsLT2 djvjrsVAtPRgYq71qN3g TN++snf12/AYq4QZF+2dStf+V692nBx0QMrjsoJ44+DuNe11g+lElxIErf96zSqtmEqcxaS3Bz4zoEGQ Cit1xt9dpYWAN2ub38qJ iN5uZy2xyEW3Lm48SCwoJXipxMaNlBI00QK0sdblJkDpZlUENAC7gqhN/i2kgU+Ip6l2b4NcMcJpjP6R inHPbZLOu3i2++v02otj bPLi5HgJtAd39t239ATOBLb10QV5MYW5ytvar2ZVdqXjLbX842AL9yM8MtA/QcO/Yj791SKihECK/Hww UMYOMSr0nXPa7Ftk3oc5 YlvYEmekqRADXMXMltebWbBKY7Qo6PUU7ceP/4H9x+wKvMRpKamxr+JN+36+BOhOQej5l0kg8Fk+S8Hj 5ihR29iIQ7Vm4zEkaRoZ qtHr01lFccg1jsgjGj3fgMEh3zArrl6/scwj88nn63la/tvXHzaMwbB7rZ8zPpMpi92bLEoWBR6MzBnj 7VJqNr96wcnjq1MThGnJ icxwdragWcPAWFZ0mhdTLSPeQb/CRkImCVNQGjp9sDgLMx6e9cuPZ5/vxIMQr6ih9db5E5mKd8QE5/Pu FCsO20rguWHGm9HUukx2 fwCc+fN9/G9jo0IGPbuAQ8yh/Oi5b24QouSBh50NDaV7Rj3fjL+Ih8z+blbj+0epgn30SZV/b4s8Vuah 23bu/hhOQiCuKED1l3Vq Cr4s+Z5SmXf/v2+sidMDU7nJsac/wx1RuMg2YhIanuK4Be2Y3vM2yl1+wTXxCfG7Y1AaIatvwAmF0tSu kjXAkLOUnLxhIIf9ptSL zki2ug6rwpKEljHYWkjdhWiC91kxt5qWFkYTDmwnGLkPKzPaETx6Ode583VdgFc8316s0pEf2AIIe4aQ LbzjFHg99yupOd3Z7bZ6 w+DBNQMrFe/vtUsbt+20tKXbnwCXumzMBJwKHYMYwRiRZ9poxhcGM8+HYOfEvVEt18ujcppZDBBWSlXp xX3PaxGhkNqMeopuaZ46 gvxV3q1/7wCmtHcxAsFq1+PBd4+Zd2sn07YX4s7japOVXKFWHJQ4TFHO7HTKZ3+eXXSish1s4/8PHOWV QGSJIUiEQCIxWKhUFhQO vlZOG9+IZRiRfULc02kCYZT79hXGhxSfVv/z37x/EV+oHpKuG7jskDT+l3zXOtu2CkkVK691qfRbv5cZ pIkJ0+dxbf31iehQOM40 54orBSMvvMAA4nsD1NiCZ8oZMTklPL82gZ696T7x3+/evWqX//+L3PyEAdo0j8dlFkjEfpVk4vLnucE1 /fN8mW/ot0ZnKHbFPKX0 SRl/KLI5ydVjfp/GaFvIMMbOT2mdtRFvSCAdJ4wkKxCrBML/ifuKy4paUk5HDZ4xZlI/60zOQanUMRV1 sPRQWY2n3/PyjUW0gf7I N9+flJUcIcO+B1BGhXrBEa2xFUm5ayWI/iuEn6bF70g8zIaJynpBubmZcb7/Z/QeRSnY5Ke07RZ8g6tB Xq52mFIvsngcfChXNA+0 TSYL2NBCOcnv4O4Yn+SHtzo1Bzt3DpaZAItJp/9/mdQfIpQCSgmA1K3S7OFw6d8xMIdlaXfbnrbM6mJp AdiYJe3h1drcg8PKTWmm Xpbi/PCWbRg8hcMOtXxKepm0+MO72BxWgF+0K91b8zNMEYecNTuKupSAmk7U15B1Ph848pyjt+6Z/du3 hhT3S3uUwiSq45Oexkv5 4Ds7RuLseKRKA+/poC40Ftx9ImT898IZOjayyRud0p983/hT/QU8kSb5+rVr//OrwGYMc3xHKWkHvp3h Q6UkNqcBPTDnJlYau38a j7vvOuLYf3w6OI4wMH2+rd1/DzJaqNuE005tKJsJjljf79VTTYkisKCSlxqJJivUiiOCRpUX/i07Nkwi Jvt63tKOtgXeoAy0CEYJ /lt/fTVLQAeHED4Bb6/zr4b+PunyMzMTExIrN+grX1GA72oy/zn8HU0Eo+TnqFfFUSLH3Po/mpRCgQCq tD7J0+Y12z2j15l+Ob1m 0k//MPAM0zFKcyo1dvL7f79R//mDQD4+vn6+BZ9DJHhldg35m/PGRkZ/DrUXNZM3t2w+ZnMAhw1iTN/w sEDb++brhZKJTNHoCv5N q+XiwMvQBjXLI9QO9sG7Ov0EfERQvBHt0A7zgo7JlBz1Liqv5ubtFSu4h7uKe0ehkplZBj0JbzXKirt1 QiowffIAODB/tjPEs8zx 1JMOw7drUT6dHcOEsvR/f7gH+9DIRnPgSdBSUCE1bhhN7AW1bLKeWvARf5ud5ls6t/mX4k4UKXF9O6tl ZeGwO49oakX5Ne/bldAh yFGEMHnMPzFw6H8xxi5j0PsQ9ryjE3kmzoesM2Z2OR89OwJXFhEQtbu/Pj4+aU68FbK2Ck4h0S/z7kzZ vARHzuVYHaeKJYc7bkIX TYBPgRnZxfzVpUyV/riNbZkwpfcZh6DHq2MAKQVIBpOHtreOv2JkaQ+/ORtslrgAaERc5oi4RztwppEo Zj3EUIw21W0CuGmwac6+ xen9i904CSBI6Zlga7gwI4EBMw1J24dl8GxbgcdyfUTlQnBq6+/UuUkEVbueyt6KmWIR6MtKs/erXt3A HbRoXHvI2u9myy2iJ5qy KDhlS6gfT/QnNC0PdUxm9rPsTc93Shd0rCtwrOAGhDCZEGeeH+XXoJyXzA72uPYP4JN24nfR4joESSUt 8Ihm77fVI1AaFJH2BbHW ndq3+GHceMNRoPVDoWJ+u5oyHr0bKDAl/Qy7Kgkf8ne0PF6ws81qjZA1uz2cgsAet9lBkQnzZ8dMnPcZ d9u/7uBVP99au6bw7htE fq5csm30QOomk5+myQ4OCc8UFfMaP7qKpxPIZPgF6sCtMzyM97MUZFjKe3rG42vGTwlmbVRBbxYuCEUl SrsDQcMx86TjyhFktrvV 5Um93EXOCmJLm87E1teC17sXztR8CDQXLXT87dlGPmZeSkEpLqXvgRLVSlajFKx/Mrhls46MOnug4Sk3 YFeUqYj6zOqiDyTwD1iC uvrli18/i31WL7DMXfTH+M4bv/zuTHAEleHGtOSck7sk6nQCZRXwYxUE3Q1CVc2/9dn+MiRABD/5s3EC RM+qGNSoWLFPn3/9/3YM j0jW8aDddKuNy+Hmo1KvAkbGbo8u4zwfzcziL9us5q+n2NBkoNfs6lWWOytwwRjI1UtMyRK0l7hZRTk9 TxGtIvKAKe16WyggnJtU FwgEJib+A285NUrIyrnh5zg3x7/+fBEto8Uy17hf07aWIe6g3ekYLRY/1cg+GArG9+uE6AkYRN/ruM/d EERAtNbnCjqLnqvJPBeA TGfr38hxeZ8k+aMk23TkiEu6PSn3uIfeYFoAz7lZHoNysEW/xEECtGB0Wuja0nUn63bNzC5YMri1OqOv s062RJ1IpJdVajv3zx00 YtA52UvYpxPFz9xANC81HmR0j9IKHvlBjJTosXaci71ozGejcyuEZlvTC3TN+mu0EP9H/bddgEjU50sV eetq/3xVMoECO3bSZf5z zu+61ZXiHL6YfJm0cvdbH8WuJyrRAMbh7fw/VfU9DeTTBaJD8kohROMme3fHuNwAU2nh/L4ib+ffi8zz 96nT5/mZH9Av/5T27wgP bTRp5jbNhWVFXBLjSaEFr2pG5fFnLLRoJWNNlr0YBu4eBOwjerBiOba/Zt3WL8mOjZxlN3SbSoxpgFQv DqacgYbZqvxTjcR2BchP mYrUVDPqq2lxpsjwo+djKENcBCxThSrMWAlu28/blrXjeJOR41mxNihioAKu/+yaNGzZ8/hPu8aFwqbP b55bmxroSRZkgGv+Ftru scv2j4At/v27F26+JfuPXuYDzN/BB/9DqV9mu577081nl85cxylog/xSrFC3OcHq1Qrybsp6ZHaTiOY7 Tt3/jthA9ACFBHFAoSTn iaZDMuGCUodufQJjF5aam8xl0+TUMS5H2x/0QOn0iJh5E1HfwkTtMbfBbql6valnESxxk1R+xfkffYRK HLYqYvFHTg11mNv5+3t7 q6xBibVB3iZanyvR70qKqPMBoNCyfOUsBxquj/Oyc6+voPe3dMjgj233mNhSmoqLMKpKi6lOnl2YFZhH zUSxv5ZGNtXMhYD19tvT AguoP7SpOfoxxm5otbqHz76rJtcVf54TaQomFulxytgvovpvnrmWSXAmAOyNCedRdHQDKgwnqQjHX5yo 76mpaSr78WOuzZM1aOky Vax36FVyc5vetMg78ta3/Oyv4oln2qpmHd4IWWyVIyi/BxB0ORxFU0L2j1v1y140KQQXTfc5+fPBw8Z+ zVK50v1boNoHB3DgkQCB DXS0SJ9EMBLfsiMJYK7XSD86wvfa7vg+8m8zkR8XR84k8edQxHQl1jTUdB3f7DlQjzQbw71t1/lJoqmp i1ypz7kWFzqpBreGDWN0 4RzJlmqg6Ne9GK+tN7tY9dP/0gWxnEebDJChbS5ZidLGGuJ0n+3Xz/e+qI4JpmJcMx/F9rfgx0f3Yyph 3yW538adDvsvTMZdxJk0 MpJPGK83Xql/1Ub/g575Vg4X2OJtAl9j+VOJUtjfxM05xwxAJFgXRXFefym56400QbS1cZ+cr406aEJq Luf8WbOdlJ0oGza/+2F7 tSlS+NDTEMuCVf46Qln4af5y6khlN+cf4vNauxYdkhnUv7WihcMvvUV2Ft08iV2nVAf0x087ra9/G5gz Zp9+/GtwfA83X6aloV+2 VkyaUb3TMJF6Yh/aYIXv1gxlg8bnsRYCDKcIzE6VzEeOYAj8aqq4w36k0x/AkBiYuLkH3/J9TGL5biDh Um8W3XiMBQo0bECCXbMs kk//Ost1Yjzi7aQsE7p81/y1gpOKEPb9v981OOlbYzoBJ8+jNG5hRGJG4g5OAKWJPQmKXf5NN4IY8680 frGn5In+QDzOLQj2Fb+d /IpjpSNeMmuVoeblg4Q0j6S6+/b+/dv5dtd27rascaTLSmO+cqxPeLJ6Ik3zeAeY3Ipkgx+xcOU4raTm Xmstfbg/IUL+Tnwf+7ev XXzZonESg/F18+HtpApk5dMI3GspDXgShswKBCbOJfhEP3/ubuLchaLRVTa9ZHtm5UOoAmB8DVqQQGZB xgU88Qn+ZuAS4Sr90bkW gbdECAQ4Woha94DRBAJ/5Ehw0eAnf4yWYSx3G07bfOExwze+OlUnkyg8pOQg8NWjfe4LyOifGkT18/gg SnXDNRnYsq1hxQQ8DuB8 bQFWTq+ZeFsY8bkJPAVrDlvwGVH4urUpxpTg6ErudQuznXEFeACQCujjQ/ThVi7AjH0Wi+cPmPRArexs D78b44x0fzIj8bX5cok0 Plw6uGnb+MMopNzVk3sZzpbzfXGzdE9hZFN7TKsM0lVCFq7ygZp9MiOfaMXMQqul7DJxKkGiQClSWtbB cTx7Wpu5noS8lVeqMQ5k 7PJ803X5IY8fpPXob5/AICnp+gsgnwB68QHdIdE/pyQWBKi9qu1y/o1K367unHR+1BkuYt1N/4JaUvS8 nbaPBClQDSkzbPrxia8h 15tGqIZku151bPBb9TG5bnHtxDNpr5RCDJxQvcg/W5tWioK9svTzpMEqp/lWcD30nVU2U4geoSbUrswP EeHo5Ej7TGpQbWU6AzAj X64Wq807t6m365l1B1s5tMyN0OaU4D2livqHbwbmWOseKSIkAH43HrqUpet0k60T2j8WTFbRb0FHJyI9 vynp2H1wjq8IUUI293tu 3WmAyBhHVgCiDNhGXGqQlZq3p8nlyLRUgVDTi4VMMPjzp4Vdy/qsUk7CNQxNpc+fetW/ng8Khjh3UJO7 k4i7eyYNsRCEp3AJvqfG xxZjbJMBkegzbvNTpLo1y9rdqhzvMfhACq2IKt/jT3aK0o+VV5YqnuZbwYCirA4KskA4xQaMJHuOk63C sfFgQ9jtx6qxssDPc8IZ KsCxj30gInFWlmwqf596/msFBUSj8bXQdkl72VqFeGcHmsn8uPxntZRHm1y6m53BXEeyOuATWbWd10R0 EJw2lYcdl4ewe9AmO71M q9d6+olya+KNm13jkkAxq3rh9L5hNFqzDvJDarMvQP7a/veoAOVs72BlSa14bM5w9M1+dSMk8okah1kumc BV+IS7iz8fk6XwDfV8Ab x6qZr648Ywz5dbfsUgmmw341gjexi3rq+gtSExM/S1s24kC00NAa/gR8/tOUXAkjxKVhOod1WziA2tvz /CoUWvWrlkjFosDAgNMf bqG2D8hTPXkZwNXtDujV43ruIAdhy0dtVAw6Aw3Pd09cr/91vDHD52ArPKMIClK84mh/866u2HDDz6yg 3dsf2vwxTTy/uVLl5k+X MAAyVGr92+YNWQHka83U8TMTfN2YJcm2+8mFAvwjRb1KIVlpmmCKnAY4Az9Mh0xn7j82CHi2/9ISUlRK gXVq9mlJvTSmKZUGA2dK onn4OIFRQw7wCHL9/Cnv2VgWu8RbHk1A/v5s+f9WYz9V+h5L6mRrLq1h4xESnWFlGesvH6/f/j62dZCb 4vz7ocR8aFOszwAAQCtU kShWvPNsefD2870r+6cOVqNtk/siuHm5I5x8FmwzDslTNX+XVKyusaBoluVynkph8LtQQKM6laMrFyLB G77PR3W+yeIHklhAc0Gk z7+TbxAKKBIUqVSRT9+tLKmfbPDxd0TiIOlRXfg1e4p/WzlpKGKq9xcwm+7ju/HRPJjO10FcRFWMXqL1 s72Wu3jwpttlqYlKGS4K Dv9AcRosrEgvHknDVOss4B/1e2a69RHUpWxPgDI4thX31+fa3fr3cw32Muy7BJXkHpuyRCYws0mMikfX fnilCb6kROKHMXDTdmND B0VpfCcc7lxP7FwcG9wJzvarFrm33qneiq72IiGpPbP1q+HSZSSkSvdpW8mJ+LpBruUgAUZnpqFtB65B aLxvTBifjK1dKxFa0mr0 xiqJug0DtQZWNvKlLzjsq0CffIcw+kiUU4IJ3gq1YZfMU0pFQKFwb5AxiJfVKUYBCQ51hl8406qgmaKN bv/5O3zf80iJ/j5+eWPm 5ube/BCvF2sU/Z2IgAn8+sWu9KpuIA934+fP3/97B8c59i8fYe1FrTToI433/GUf3h9v8b3Ww3SxhC6t flk5LwAL0eSeoVt7co0x CGFBw6q/lSFq4tQCFeLN+ZIOaFmHoQsFJid9xFZ+/usPyPCUWVSIy134wuRE4rKOfLe3B5+tuC1Z2V7g PYofqSuwz817kevv6f+3 U7hY03q9mNFXWWRfyYOGnBeWy1bx/hssHoBMXvPUacRY7vZC4OJHF9yFd6xsEGXiAzZGv+/Yi4bZpGki Pdq9uVyd3BczZLsk1yxz mb4ULpvCOxMFeXjdB8uficg/+n789tkhp8el5/UEj2PKUVB0g7ckHQIGl7zqxtlPCZGU/qRlx8rQVa1Y CtRFM1StDFPqT/+/axOW 1725HAo6aaVTw+8YM6t4r02u+/V83fo9Gfcy2cqAVKfwgxhD3YNW1+u+YLSeOvXS2Gdfddpd8z3KFbEq UaUtFotyzIkSfKViRASi 3M6GMdZ3K66Xtc59SK3k6nfFyJ03TN4p+0euYoOLIBiLQSPDqd0Zw2BDxUXtiNvzX//1fOoa8LDhXIWO ASp4s9ameOnY1BC0Fj20 3s694JpIW7W87xSdkSmNN6GCWF0TEm7d16axryXLMt3/3sZd7iv2RY2vls3aHTgyqyOSmNfC8+eOSsSi yF8idhPlfmdl8rqZQEI/ 4ED/6mPjLAs++D+f9tBm8A0xbAXlGxHVXAPIJN2OOwmRVL20uPj03PODqICOjae6t0S8dkrskkjb1Yjw 6Bs01ZjE2tDmyNeaKcuQ o4APRBaI06fNlj49nDYIHQrqBeebYi7DvLa7ys/4bYn4MKBd8W4agBv8UbO26QBCSvybGdxFPlvMMjH4 9vEWVKNNU6/8FMRl6Ct7 +Sox5iIYmieRa/Zen9gpDTJXu8ozeqThKmw2mmrud8TtMwA7+diB4eocZlMgGqicyL3+kwDt1SvgAqlD Oc74lAAd+6qVvzJJiSY1 loBg0JfAjOqxmk606KNOcx/ZKWOYKvbxVMQ1HJ3YVpXh0CqmGaRsiu6cRng+cJgMJh/A//Y+WeSq6D1m rDCwmAwpQassDAYTKkBK oyYMxFtzIqZe5ZOMkWQexEyaDhlgDMXLEkHBjdBRpLyeHhFn9WATdGBmjDjrYqhkFDBDMiWLleUKbKuq IoEm3GAFzFFkrUigAkbo DPVITjSZzaFHlXdqIgHl8FSCtZQweHyoEtcrIRSXNwFJpzZRvXeqPaQy8TAZaUV+yk1vQpVuNCaAn/++ TTczxox0t1nMoo5h51d6 +joKBKJ+mkvydOIwb8rIm/y6i31bPEE0mv1E0jIltKsYnK3Vbr82ns2nng357kb5z3aUh4RJJWt907Bs bQXAjCfRtXe6WYU2747n iwso8GDUB4gu9/C9XVq4qysHwoCx94FB0+0mvYiCRbAQRvNumav6k3jHrIjxbz/JPac04Qdgsw+qR4+f Pj/zOjSpcuuXbs+ab5Dh b7eXZWYyNi/7o621nmo//0nrU5XAUENQWHYPDzeA3cmgyEfXB0TtKkUGC1wDiQJZ9AB4lPtM3ZTz9701 m/+qS5dxaILr372Ptgk4 uICAE+ePCkk/mFbgoIVzv4zIMaEzMWUfCf4yRhLTiKcGD8yPu3FUPQW0xUYw3dYcm7QI3uAdVvWhwIQp 2zIUYi635Mog4Q0/ZkzV OtV8g8Ob3VAWGVjxh4/4QjLg56k+EY9Q8VV/usXHIh6POOC2JMnWoiz+cLacHXC4bvfIPUXuXMgemV95 bNnBSW+CvDSODm84rW9j gq0361iS6WwMB8rYv1okxrHXnRcnTACB01sJqhXbxvn83eCv1z+4dVTwsaaPldKcu22+bvd56DNfoadM jrWQc1vFZLR2Bzn9Hr7T UytVv/44484S5H//v179+2sGQZmEfn826rOdLtK64acMjf3woVihBk0+Y0m8cw2ruvGdKB/rIaFhTVt2 sB41cJTIgsQ67KPIf+7b h65QrWanFBjG96IRIpBZFaFpuo3kH/s9XRBKCFp0iJJOzotO1tPoMqsetWKyLsWx3l4uLhuMa3Rjb8Rq l4v9hzRLOCEx3srHvJ30 7/z2/tQySpp38z94sm/YfhcT6d601ZAKzq/YSnz7kc9E/Pbz58/EfP5vgpoZG4nkRyWnNRyjFfptJZQt iE58ObaWperwBu0xkSPV mie7DZwPAdxUQmIEVaJfNEAMRmOPFdviieYNv7tXECkm6XUbBdc/XywjTEkKZACpBcOmnYr5be9ozHCE ORXWFlZWQAwc+bMpKSkw gMDJGfqCpDO7TQX03NlD8icC0De2EjdFQ30KOR2Du29kDm15qYVfxXfy0zr8deKBTbAMSEOgoz+88H3h ow9s1xkDEFn3PwdQuFkV nDgwPztjuHDh/XtNDwGADOf4ilX1MxCaoFVp3uXhHMUXQa8uuHnEBXKRU7zqsAyJNhGwV85Av3u/Mbs2 iZcM2tCXkUEH252onSnb ampvNJB7/dZOtCbLjdB2Sz2HrxlbBr6xDxm5fQzhVnJvv9aBZc0+/tjB5HmPqEx4VvevHFbXQMKLLhpB r6Adx7Ch7CO08QZulEbq HUd005bpfJdBAUB9QY4BONJc1PqwiRu1y+ki4vs8j2iVeHFsRaQueOhda//wugnCCwBQZUaCa5HpJm3n u3OnTt/++39FYyIFogT9 kWBU8FDEmVASgqUK106g79Id7OmIVlhzLmdy6c3PtTuwD8/v/tW1dD160sS1D+W2mQSu2Sycd33335ED y5i2NgulN5LMVTSOl9RS UlKUFl+ctmlToNUWXbUNkaoXhRea0vHUK5R0WRjw5KRjMsDvSEZM0vB3+LPw91e9s49ziTmkwzv37007 vYFpQAAc+bMsThYUAtLI gGHEJyeVf40+RuokffVreOtIfDGakIkKh8VSYx3mextyzCbDxJlQV8ktnjXU2auP9qpblzUTQ0xzkB4U Cek7Pre+YtUoUKF/FY53 SHwHFGE38WqVbBVN2pVaN9w0MSpQ0Asq9n98KcANsUk0YogImMXuUnWdX/i2S5PRxwApOkHTw1f5ti/+ uqrnJycQhJ5+fJlMbNDC XitIDGvodFAXs24Yi8wtoJh3D7OeLAj4baXrNhbVlodg9+JQrYF3ls9+vqacjRhNYUaNWoAAG8+K4SyZ tgNnNINBmQmy6GaosFOe Tls6QSiKSZk2bf122QhS+0ckALCe604PPnLL/7l8cZdF1496743q+/sKWb3WNDGosAyob1YVQNJVQDwk cdBHISRdu9uqKevRo682 kizxNj3ER7fWk3hDwj9VuirCuSWsH429AchzEuxvZawK52eWU1KBjWyDXYqc689o9GqvjTJNuIt072/+ +23cePGNWzYEAAuXbpkI D6f3xnWTckwG38OI0PbJLSw6Es7v+t4ms9g9svZv5YrUj42FmHo+cUv9X6B2ucFKUd1GVV1goGR3+Xt5 YonTtGWbAr5ZtLOIfQEG n99jnPbFdgo7UZeDxj2dqy5OjK22I/5orknFQUesClv7rlrqUYI0radOJkOA25fVAnvRZT2F3V8QFIzV EZcvcF2WAlnkB/SokuIE Tdzhx5W8dWSq9kFIYnf+s9H4W+HlZInVpMTGx3tpkESkhv2Do0e9zSi9bi+fkQau3IZSGBHip1u8b6l1 Jcg0wp67jYwxyX/ERQUZ SoteXuTL6v6e4d+49atW/aOMVg2jBqSw0CLgivyEnWKYzCKCiG1zGaY34/Mni8Bsthl1P9OykgfRoO5x 9bM/Oadmk3HwI05h+ePW RKRb8owfBsj3ofFnFYH0Vt6jmIy281YvVvRN3f9bUAuNt8JEtZj4eR29qjVExj3cy6uFoM7yiq1unNJF UFBv/zhx6x018+/FYlEP j4+so1K5mwY83vyW2+syc/z58+vXLlichMHgJ9++daa6ym0xyt+/n8p980alEg1WmhEsej9+/dnWdZoN P3lWZpFwOado0W7Jo6gy Dm9brozatPuVe3t8xhUnCMTR2yk7Rh6pGR/tZAFtZ725u1+/wPmwpKgIgxmHc0bumNrbjHXPe9c1p67j jUNJS6YUxQBdPnuXZelw dMoMhcrYINKElBKbWy3C49lblHTtwYwiHGc0je//vrr/TMadK2PdnHl7ocG0TdzFzGUSjFttxotkCHi2 uulCqCNWwulIBAY8MlHE S7AcDLoB72ohn9oDVFZjz95EHJFNe5kh22neMeBkQqgF+mAyWqKLb63zODd0W/EdwRjXmb1VrCKkNfVH dwIkBIopYqLg0CLQpTRq dFopRsdlWYPIAeIXzvIMdMyaHbNh5RIEfQYyqVofCh/A55RS/v2x8TGONGXBCiPYoLuPcQF></span> </div><div>
</div><div style=text-align:center><strong>GYNECOLOGIC ONCOLOGY CONSULT</strong>

</div><div><div><strong>Patient Name: </strong><span class=clinicalNoteMacroHighlighted id="[id number] macroname=PatientName spantype=macro title=#PatientName>ALYSSA PULIDO</span> <strong>Patient :</strong> <span class=clinicalNoteMacroHighlighted id=[id number] macroname=PatientDateOfBirth spantype=macro title=#PatientDateOfBirth>1950</span>
</div><strong>Patient MRN</strong>: <span class=clinicalNoteMacroHighlighted id=[id number] macroname=PatientMRN spantype=macro title=#PatientMRN>[id number]</span>
<strong>Referring Physician: </strong><span class=clinicalNoteMacroHighlighted id=[id number] macroname=ReferringPhysician spantype="macro title=#ReferringPhysician> </span>
<strong>Primary GYNOncologist: </strong><span class=clinicalNoteMacroHighlighted id=[id number] macroname=AttendingPhysician spantype=macro title=#AttendingPhysician>Sarah Coto (Gynecol ogical/Oncology)</span>
<strong>Date of Service:</strong> 02/02/2025<b r>
<span class=clinicalNoteSectionShowSeparators clinicalNoteSectionVisible" id=[id number] internalbreaksection=false originalname="Reason for Consult: recognizeconcepts=true spantype=section suppressempty=false>Reason for Consult:</span>
Cervical cancer

<span class=clinicalNoteSectionShowSeparators clinicalNoteSectionVisible id=[id number] internalbreaksection=false originalname=HPI recognizeconcepts=true spantype=section suppressempty=false">History of Present Illness ([facility]):</span>
Alyssa Pulido is a 74 year old female referred to [facility] with recent diagnosis of Stage BRICE [...] internalbreaksection=false originalname=Genetic Testing recognizeconcepts=true spantype=section suppressempty=false>Genetic Testing ([facility]):</span><br&gt ;None

<span class=clinicalNoteSectionShowSeparators clinicalNoteSectionV isible id=[id number] [...] cancer excision

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
Never
No history abnormal Paps but [...] internalbreaksection=false originalname=Physical Exam: recognizeconcepts=true spantype=section suppressempty="false>Physical Exam ([facility]):</span>
*Virtual visit*

<span class=clinicalNoteSectionShowSeparators clinicalNoteSectionVisible" id=[id number] [...] & Plan: recognizeconcepts=true spantype=section suppressempty=false>Assessment & Plan ([facility]):</span>
Alyssa Pulido is a 74 year. [...] and Sarah Johnson am located in the [facility]. The visit length was: 22 [...]
[2025-07-17 14:02] LABS: Appearance Urine Cloudy (Clear)
[2025-07-17 14:02] LABS: NT Pro B Type NatriureticPept* 4140 pg/mL (See Note)
[2025-07-17 14:47] LABS: INR 1.36 (0.91-1.10); Prothrombin Time 17.7 Seconds
[2025-07-17 15:09] LABS: PCR FLU A Negative PCR FLU A (Negative); PCR FLU B Negative PCR FLU B (Negative); PCR RSV Negative PCR RSV (Negative); SARS PCR* Negative SARS-CoV-2 (Negative)
[2025-07-17] MEDS: cefTRIAXone 1 GM in 0.9 % SODIUM CHLORIDE Mini-bag 100 ML IVPB (15:27)
[2025-07-17] MEDS: TENECTEPLASE 5 MG/ML inj 17.5 MG IVP (15:51)
== END 2025-07-17 17:45 | disposition short-term general hospital (02) ==
PROVIDERS: Emergency Provider Emergency Medicine; PCP Family Medicine
DX: I26.99 Other pulmonary embolism without acute cor pulmonale (principal); R09.02 Hypoxemia; R79.89 Other specified abnormal findings of blood chemistry; N39.0 Urinary tract infection, site not specified; Z79.01 Long term (current) use of anticoagulants
CPT/HCPCS: 36415; 71275; 74177; 80053; 81001; 83605; 83735; 83880; 84484; 85025; 85610; 85730; 87086; 87631; 93005; 94761; 99285; 99291; J0696; J3101; Q9967

== ENCOUNTER 2025-07-17 17:26 | Outpatient (CLI) | payer MEDICARE, BC, SELFPAY | END 2025-07-17 17:27 | disposition home or self-care (01) | LOC: AMB 07-19 14:56 | PROVIDERS: PCP Family Medicine; Visit Provider Family Medicine | DX: I26.99 Other pulmonary embolism without acute cor pulmonale (principal); I82.220 Acute embolism and thrombosis of inferior vena cava | CPT/HCPCS: A0425; A0427 ==

== ENCOUNTER 2025-07-22 11:11 | Emergency (ER) | payer MEDICARE, BC, SELFPAY ==
--- OUTSIDE RECORDS SUMMARY | 2025-01-20 06:00 | XMS_ITS | Continuity of Care Document ---
Author Organization [facility] Address [address] [address] [place] [address] Phone Care Team Providers Care Gas Leak Inspector Helper Name Role Phone Lizet Steinberg Unavailable Unavailabl e Procedures Procedure Date Subsqt Hosp-da E&m Minr Compl 5 Init Hosp-da E&m Mod Severity Advance Directives Directive Yes / No Effective Date File Name No Information Encounters Encounter Description Practice Location Reason(s) For Visit Diagnoses Date Provider Providers Copied on Encounter [facility], [address] [address], [place], [place], [address], [place] [phone] [facility] No Information 5 Greyson Hinds . [address] [place] [address], [id number] , [place]. [phone] Subsqt Hosp-da E&m Minr Compl [facility], [address] [address], [place], [place], [address], [phone] [facility] No Information 5 Greyson Hinds . [address] [facility], [address], [id number] , [place]. [phone] Referring Provider: Lizet Metz, [address] [place] [address], [address] . tel:[phone] Init Hosp-da E&m Mod Severity [facility], [address] [address], [place], [place], [address], tel:[phone] [facility] No Information 5 Enzo Thomas. [address] [facility], [address], [place], [place], [address] , [place]. [phone] Referring Provider: Axel Palomo MD R, [address], [place], [address]. tel:[phone] Family History Family Member Type Diagnosis Age At Onset No Information Payers Payer name Insurance type Covered democrat ID Authoriza tion(s) Blue Cross [place] Blue BL [id number] Social History Type Description Quantity Date Captured [...]
--- OUTSIDE RECORDS SUMMARY | 2025-06-23 14:00 | XMS_ITS | Encounter Summary ---
Author Organization [facility] Address [address] [place] [address] Phone Care Team Providers Care Account Services Analyst Name Role Phone Votel, Axel PALMA Primary Care Provider [phone] Reason for Referral * Consultation (Routine) - Pending Review Specialty Diagnoses / Procedures Referred By Pastora piedra Referred To Contact Diagnoses History of acute kidney injury Urinary tract infection, not otherwise specified Hydroureteronephrosis Hoang Galvez MD [address] [place] [address] Phone: tel: fax: Referral ID Status Reason Start Date Expiration Date Visits Requested Visits Authorized [id number] Pending Review Specialty Services Required 06/23/2025 06/23/2026 1 1 Reason for Visit * Reason Comments CKD New Patient * Nephrology Services (Routine) - Closed Specialty Diagnoses / Procedures Referred By Pastora piedra Referred To Contact Nephrology Diagnoses Other specified postprocedural state Votel, MD Axel [address] [place] [address] Phone: tel: fax: [facility] [address] [place] [address] Phone: tel: fax: Referral ID Status Reason Start Date Expiration Date Visits Re quested Visits Authorized [id number] Closed 05/18/2025 05/18/2026 1 1 Encounter Details Date Type Department Care Team (Late st Contact Info) Description 06/23/2025 2:00 PM CDT Office Visit [facility] [place] [address] [place] [address] Hoang Galvez MD [address] [place] [address] History of acute kidney injury [...] 1:39 PM CDT documented in this encounter Patient Instructions * Patient Instructions* [...] follow up needed. At [facility], our goal is to work with you [...] all of us at [facility] documented in this encounter Progress Notes * Hoang Galvez MD - 06/23/2025 2:00 PM CDT Images from the original note were not included. Patient: Alyssa Garcia Date of : 1950 Chart: [id number] PCP: Axel Palomo MD ([facility]) Referring Provider: Axel Palomo MD Date of Service: 06/23/25 Chief Complaint: Obstructive [place], now with chronic percutaneous nephrostomy tubes, intermittent UTIs Subjective: 74 y/o with HTN, CAD, hyperlipidemia, previous obstructive [place] (resolved with bilateralpercutaneous nephrostomy tubes) and cervical cancer here for follow up [place], nephrostomy tubes and UTIs. Alyssa is here with her sister. I met them when she was admitted at [facility]25 for [place] foundto be obstructive in etiology secondary to cervical mass. She'd had pelvic pain for some time, had CT 10/21/24 noting hydroureteronephrosis and creatinine was 1.7, then recheck in December up to 7.2 so she was transferred to [place]. CT AP at that time showed new [...] to be performed. Concern for underlying malignancy, obiee report developer/onc consulted. Pelvic MRI demonstrated likely cervical primary with invasion of the posterior bladder and anterior mesorectal fascia. S/p exam under anesthesia and biopsy 01/13. Plan to follow up with obiee report developer/onc for outpatient PET scan and given renal function had improved to follow with PCP. Also HCTZ was stopped, metoprolol changed to Coreg. 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 She's been treated with chemo, radiation and immunotherapy. She notes since discharge she's having trouble managing the perc neph tubes. She's contacted [facility] several times reportedly but no help and so she finally called [facility] and they are helpingarrange the PNT [...] up to7.2 so she was admitted at [facility]-01[facility]14/25 for [place] found to be obstructive in etiology secondary to cervical mass. CT AP at that time showed new bilateral hydronephrosis, likely 2/2 central obstruction. I saw her at [facility]. PNTs were inserted 01/07/25 and creatinine downtrended [...] cervical cancer. Since discharge she's talked with [facility] who are now managing these ordersand [...] with chemo, radiation and immunotherapy. Management per obiee report developer- onc and oncology. Return if symptoms worsen or fail to improve. Hoang Galvez MD [facility] The following portions of the patient's chart were reviewed in this encounter and updated as appropriate: Tobacco Allergies Meds Problems Med Hx Surg Hx Fam Hx Active problems: Patient Active Problem List Diagnosis Anemia Essential hypertension Acute urinary tract infection Atherosclerotic heart disease of [place] coronary artery without angina pectoris Hydroureteronephrosis Malignant [...] needed Patient not taking: Reported on 06/23/2025 [place]-3 Fatty Acids (Fish Oil Maximum Strength) 1200 [...] Hydroureteronephrosis documented in this encounter Care Teams Account Services Analyst Relationship Specialty Start Date End Date Votel, MD Axel [address] [place] [address] PCP - General Family Medicine 05/18/25 documented as of this encounter
--- OUTSIDE RECORDS SUMMARY | 2025-07-06 13:52 | XMS_ITS | Encounter Summary ---
Author Organization [facility] Address [address] [place] [phone] Care Team Providers Care Tube Coater Name Role Phone Unavailable Primary Care Provider Unavailabl e Reason for Referral * Outpatient (Routine) - Authorized Specialty Diagnoses / Procedures Referred By Contac t Referred To Contact Radiation Oncology Sonya Wade P.A.-C., M.STaylor [address] [place] [address] Phone: tel: fax: Thelma Streeter M.D. [address] [place] [address] Phone: tel: fax: Referral ID Status Reason Start Date Expiration Date V isits Requested Visits Authorized [id number] Authorized 07/06/2025 01/05/2027 1 1 Scheduling Instructions PET-CT prior at [facility]; please get images and report prior to visit * Outpatient (Routine) - Closed Specialty Diagnoses / Procedures Referred By Contac t Referred To Contact Radiation Oncology Thelma Streeter M.D. [address] [place] [address] Phone: tel: fax: [facility] Region Referral ID Status Reason Start Date Expiration Date Visits Re quested Visits Authorized [id number] Closed 04/28/2025 10/28/2026 1 1 Scheduling Instructions After PET/CT. Please write GYNE EXAM ROOM in notes, thanks! Reason for Visit * Outpatient (Routine) - Closed Specialty Diagnoses / Procedures Referred By Pastora t Referred To Contact Radiation Oncology Thelma Streeter M.D. [address] [place] [address] Phone: tel: fax: [facility] Referral ID Status Reason Start Date Expiration Date Visits Re quested Visits Authorized [id number] Closed 04/28/2025 10/28/2026 1 1 Encounter Details Date Type Department Care Team (Latest Contact Info) Description 07/06/2025 1:52 PM CDT - 07/06/2025 9:03 PM CDT Hospital Encounter Department of Radiation Oncology in [place], [place] [address] [place] [phone] Thelma Streeter M.D. [address] [place] [address] Malignant Neoplasm Of Cervix (HCC) (Primary Dx) Social History Tobacco Use Types Packs/Day Years Used Date Smoking Tobacco: Never Smokeless Tobacco: Never Alcohol Use Standard Drinks/Week Comments Not Currently 0 (1 standard drink = 0.6 oz pure alcohol) Quit drinkinking in August after pelvic pain started. [facility] Utilities Answer Date Recorded In the past 12 months has e [employer], [employer], oil, or water [employer] threatened to shut off services in your [...] your living situation today? 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 She was admitted to [facility] and eventually discharged on January 14. [...] 02/02/[address] Sarah Coto, [place] Oncology. Discussed treatment options including chemoradiotherapy with [...] patient would like the imaging performed at [facility] and orders will be placed. Of note, the patient confirmed that she does not have an allergy to Iohexol and she states that she can receive IV contrast for CT scans. The patient is scheduled for bilateral nephrostomy tube exchange and a follow-up visit with Jessie Borden C.N.P. in Urology in [place] on August 05, 2025. We reviewed Jessie's [...] Wade P.A.-C., M.S. 07/06/2025 3:49 PM CDT [facility] [address] [place] [address] Cosigned by Thelma Streeter M.D. at 07/06/2025 [...] exam was performed with her sister as chief port director. Normal external genitalia. Her vagina appeared normal,but [...] st Contact Info) Description 08/05/2025 11:00 AM LIGHT INDUSTRIAL Appointment Department of Radiology, [facility], in [place], [place] [address] [place] [phone] Jessie Borden APRN, C.N.P., D.N.P. [address] [place] [phone] 08/05/2025 2:30 PM LIGHT INDUSTRIAL Office Visit Department of Urology in [place], [place] [address] [place] [phone] Jessie Borden APRN, Sona.N.P., D.N.P. [address] [place] [phone] 10/12/2025 11:00 AM LIGHT INDUSTRIAL Appointment Department of Radiation Oncology in [place], [place] [address] [place] [phone] Thelma Streeter M.D. [address] [place] [phone] Scheduled Referrals Name Type Priority Associated Diagnoses Order Schedule Radiation Oncology office visit (clinic) Outpatient Referral Routine Once for 1 Occurrences starting 07/06/2025 until 07/06/2025 Radiation Oncology office visit (clinic) Outpatient Referral Routine Expected: 10/06/2025, Expires: 10/06/2026 documented as of this encounter Visit Diagnoses Diagnosis Malignant Neoplasm Of Cervix (HCC)- Primary documented in this encounter
[2025-07-22 11:24] VITALS: BP 122/83; PULSE 90; RESP 20; TEMP 36.2; O2SAT 93; BMI 24.5
--- OUTSIDE RECORDS SUMMARY | 2025-07-22 11:54 | XMS_ITS | Encounter Summary ---
Author Organization [facility] Address [address] [place] [address] Care Team Providers Care Brothel Keeper Name Role Phone Unavailable Primary Care Provider Unavailabl e Encounter Details Date Type Department Care Team (Late st Contact Info) Description 07/19/2025 Clinical Communication Department of Radiation Oncology in [place], [place] [address] [place] [address] Thelma Streeter M.D. [address] [place] [address] Social History Tobacco Use Types Packs/Day Years Used Date Smoking Tobacco: Never Smokeless Tobacco: Never Alcohol Use Standard Drinks/Week Comments Not Currently 0 (1 standard drink = 0.6 oz pure alcohol) Quit drinkinking in August after pelvic pain started. [facility] Utilities Answer Date Recorded In the past 12 months has [facility] [employer], gas, oil, or water [employer] threatened to shut off services in your [...] your living situation today? I have a [facility] place to live 03/21/2025 Comments No Sex and Gender Information Value Date Recorded Sex Assigned at Female 03/05/2025 6:51 AM CDT Legal Sex Female 6:12 PM MARINE SPECIALIST Gender Identity Female 03/05/2025 6:51 AM CDT Sexual Orientation Straight 03/05/2025 6: 51 AM CDT documented as of this encounter Miscellaneous Notes * Telephone Encounter - Thelma Streeter M.D. - 07/19/2025 4:13 PM CDT I called Ms. Garcia today. She just got home after being in the ICU for her abdominal blood clot. She is feeling better, but states that all of the stairs in her house are challenging. I told her to talk with Dr. Almanzar about her prescription for her Eliquis. I told her that the abdominal CT shows a 1.9cm para-aortic lymph node. This will serve as a baseline and that it doesn't look necrotic to me. Hopefully, this is just reactive. I also let her know that Jessie Borden from Urology would like her tohave the external nephrostomy tubes for at least another 3 months. I explained the difference between the CTs and The PET/CTs in terms of what we are seeing around her cervix. Overall, I am very happy with her PET/CT response in the primary area. I will see her back in 3 months; her questions were answered. documented in this encounter Plan of Treatment Upcoming Encounters Date Type Department Care Team (Late st Contact Info) Description 08/05/2025 11:00 AM MARINE SPECIALIST Appointment Department of Radiology, [facility], in [place], [place] [address] [place] [phone] Jessie Borden APRN, C.N.P., D.N.P. [address] [place] [address] 08/05/2025 2:30 PM MARINE SPECIALIST Office Visit Department of Urology in [place], [place] [address] [place] [address] Jessie Borden APRN, C.N.P., D.N.P. [address] [place] [phone] 10/12/2025 11:00 AM MARINE SPECIALIST Appointment Department of Radiation Oncology in [place], [place] [address] [place] [address] Thelma Streeter M.D. [address] [place] [phone] documented as of this encounter Visit Diagnoses Not on filedocumented in this encounter
--- OUTSIDE RECORDS SUMMARY | 2025-07-22 11:54 | XMS_ITS | Clinical Summary ---
[facility] Address [address], [place] [address] Care Team Providers Care Director Of Front Office Name Role Phone Jorge Luis Cortez DO Primary Care Provider [phone] Source Comments You are receiving this document as you are listed as the primary care provider,follow-up provider, or the patient has been referred to you for consultation.This is in compliance with the Medicare and[facility] EHR Incentive Program,which states Providers who transition their patient to another setting of careor provider of care or refers their patient to another provider of care shouldprovide summary care record for each transition of care or referral. [employer] Allergies No known active allergies Medications hydroCHLOROthia [...] topic Insurance MEDICARE MANAGED CARE BCBS BCBS [place] [employer] Care Teams Director Of Front Office Relationship Specialty Start Date End Date Jorge Luis Cortez DO [address] [place] [address] PCP - General Family Practice 12/22/19
--- OUTSIDE RECORDS SUMMARY | 2025-07-22 11:55 | XMS_ITS | Encounter Summary ---
Author Organization [facility] Address [address] [place] [address] Care Team Providers Care Tariff Compiler Name Role Phone Unavailable Primary Care Provider Unavailabl e Encounter Details Date Type Department Care Team (Late st Contact Info) Description 07/15/2025 Clinical Communication Department of Radiation Oncology in [place], [place] [address] [place] [address] Thelma Streeter M.D. [address] [place] [address] Social History Tobacco Use Types Packs/Day Years Used Date Smoking Tobacco: Never Smokeless Tobacco: Never Alcohol Use Standard Drinks/Week Comments Not Currently 0 (1 standard drink = 0.6 oz pure alcohol) Quit drinkinking in August after pelvic pain started. [facility] Utilities Answer Date Recorded In the past 12 months has [facility] [employer], gas, oil, or water [employer] threatened to shut off services in your [...] living situation today? I have a [facility] place to live 03/21/2025 Comments No Sex and Gender Information Value Date Recorded Sex Assigned at Female 03/05/2025 6:51 AM CDT Legal Sex Female 6:12 PM NC MANAGER Gender Identity Female 03/05/2025 6:51 AM [...] care. I did recommend reporting to either [facility] or [facility] Emergency room. She was persistent on wanting to attend [facility]. I did inform her that they would [...] 07/15/2025 10:53 AM CDT Gris VELIZ at [facility] called regarding patients CT scan from yesterday. The radiologist contacted herabout the results. 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 Gris would like to discuss with our team here as she is considering sending her to [facility]. She would like a call back to discuss. [phone] ask for Gris. documented in this encounter Plan of Treatment Upcoming Encounters Date Type Department Care Team (Late st Contact Info) Description 08/05/2025 11:00 AM NC MANAGER Appointment Department of Radiology, [facility], in [place], [place] [address] [place] [phone] Jessie Borden APRN, C.N.P., D.N.P. [address] [place] [phone] 08/05/2025 2:30 PM NC MANAGER Office Visit Department of Urology in [place], [place] [address] [place] [phone] Jessie Borden APRN, C.N.P., D.N.P. [address] [place] [phone] 10/12/2025 11:00 AM NC MANAGER Appointment Department of Radiation Oncology in [place], [place] [address] [place] [address] Thelma Streeter M.D. [address] [place] [phone] documented as of this encounter Visit Diagnoses Not on filedocumented in this encounter
--- OUTSIDE RECORDS SUMMARY | 2025-07-22 11:55 | XMS_ITS | Clinical Summary ---
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 No current or recent notable concern for acute bleed as cause Hemoglobin 8.8, baseline 10.8-9.2 Ongoing management with PCP Melanoma in situ of right upper limb 08/05/2018 Essential hypertension 03/11/2018 Encounters Date Type Department Care Team Description 06/23/2025 2:00 PM CDT Office Visit [facility] [address] [place] [phone] Hoang Galvez MD History of acute kidney injury (Primary Dx); Urinary tract infection, not otherwise specified; Hydroureteronephrosi s 05/18/2025 Documentation Only [facility] [address] [place] [phone] No, Pcp 05/18/2025 Documentation Only [facility] [address] [place] [phone] No, Pcp from Last 3 Months Family [...] patient's age to complete this topic Insurance [facility] Medicare Care Teams Bunch Trimmer Mold Relationship Specialty Start Date End Date VotelAxel MD [address] [place] [address] PCP - General Family Medicine 05/18/25
--- OUTSIDE RECORDS SUMMARY | 2025-07-22 11:55 | XMS_ITS | Clinical Summary ---
Author Organization [facility] Address [address] [place] [address] Care Team Providers Care Materials Associate Name Role Phone Unavailable Primary Care Provider Unavailabl e Source Comments Patient records contain information from all sites at [facility]. For routine questions regarding patient records, call [phone] during business hours, M-F 8:00 AM - 5:00 PM Central Time. Record requests for emergency care only can be directed to [phone] at any time.[facility] Allergies Active Allergy Reactions Criticality Noted Date [...] Diagnosed Date Atherosclerotic Heart Diseas e Of [place] Coronary Artery Without Angina Pectoris 03/30/2025 Malignant Neoplasm Of Bone Primary 03/29/2025 Malignant Neoplasm Of Cervix 02/08/2025 Cancer Staging:Clinical stage from 01/13/2025:Stage BRICE(cT4, cN0, cM0) - Unsigned Melanoma In Situ Upper Limb Right 08/05/2018 Pure Hypercholesterolemia 06/29/2018 Hypertension Essential Primary 03/11/2018 Encounters Date Type Department Care Team Description 07/19/2025 Clinical Communication Department of Radiation Oncology in [address] [phone] Thelma Streeter M.D. 07/15/2025 Clinical Communication Department of Radiation Oncology in [address] [phone] Thelma Streeter M.D. 07/07/2025 Orders Only Department of Radiation Oncology in [address] [phone] Thelma Streeter M.D. Malignant Neoplasm Of Cervix (HCC) (Primary Dx) 07/06/2025 1:52 PM CDT - 07/06/2025 9:03 PM CDT Hospital Encounter Department of Radiation Oncology in [address] [phone] Thelma Streeter M.D. Malignant Neoplasm Of Cervix (HCC) (Primary Dx) 05/11/2025 Clinical Communication Department of Radiation Oncology in [address] [phone] Moon Gong, R.N. 04/29/2025 8:46 AM CDT - 04/29/2025 12:08 PM CDT Hospital Encounter Department of Radiology, [facility], in [place], [place] [address] [place] [address] Jessie Borden APRN, C.N.P., D.N.P. Liang Foster M.D. Hydronephrosis Discharge Disposition: Home or Self Care 04/29/2025 Orders Only Department of Urology in [place], [place] [address] [place] [phone] Jessie Borden APRN, C.N.PTaylor, D.N.PTaylor 04/29/2025 Orders Only Division of Gastroenterology in [place], [place] [address] [place] [phone] Freya Mccauley R.N. Nephrostomy Status Post (HCC) (Primary Dx) 04/28/2025 1:51 PM CDT - 04/28/2025 4:23 PM CDT Hospital Encounter Department of Radiation Oncology in [place], [place] [address] [place] [address] Thelma Streeter M.D. Malignant Neoplasm Of Cervix (HCC) (Primary Dx); Abnormal Urinalysis 04/26/2025 1:00 PM CDT Comprehensive Visit Department of Urology in [place], [place] [address] [place] [phone] Jessie Borden APRN, C.N.PTaylor, D.N.PTaylor Hydronephrosis (Primary Dx); Malignant Neoplasm Of Cervix (HCC) 04/26/2025 11:40 AM CDT - 04/26/2025 11:59 PM CDT Hospital Encounter Department of Laboratory Medicine and Pathology, [facility], in [place], [place] [address] [place] [phone] Thelma Streeter M.D. Malignant Neoplasm Of Cervix (HCC) Discharge Disposition: Home or Self Care 04/26/2025 10:45 AM CDT Lab Department of Urology in [place], [place] [address] [place] [phone] Thelma Streeter M.D. Malignant Neoplasm Of Cervix (HCC) 04/26/2025 Orders Only Department of Urology in [place], [place] [address] [place] [phone] Jessie Borden APRN, C.N.PTaylor, D.N.P. Hydronephrosis (Primary Dx) 04/26/2025 Orders Only Department of Radiation Oncology in [address] [phone] Thelma Streeter M.D. Malignant Neoplasm Of Cervix [...] In the past 12 months has e [employer], gas, oil, or water [employer] threatened to shut off services in your [...] your living situation today? I have a [facility] place to live 03/21/2025 Comments No Sex and Gender Information Value Date Recorded Sex Assigned at Female 03/05/2025 6:51 AM CDT Legal Sex Female 6:12 PM OCCUPATIONAL THER Gender Identity Female 03/05/2025 6:51 AM CDT [...] st Contact Info) Description 08/05/2025 11:00 AM OCCUPATIONAL THER Appointment Department of Radiology, [facility], in [place], [place] [address] [place] [phone] Jessie Borden APRN, C.N.P., D.N.P. [address] [place] [phone] 08/05/2025 2:30 PM OCCUPATIONAL THER Office Visit Department of Urology in [place], [place] [address] [place] [phone] Jessie Borden APRN, C.N.P., D.N.P. [address] [place] [phone] 10/12/2025 11:00 AM OCCUPATIONAL THER Appointment Department of Radiation Oncology in [place], [place] [address] [place] [address] Thelma Streeter M.D. [address] [place] [phone] Health Maintenance Due Date Last Done Comments [...] 06/11/2023, Additional history exists COVID-19 Vaccine ( season) 2025 07/02/2023, 07/26/2021, 01/02/2021, Additional history exists Influenza Vaccine (#1) 2025 Cologuard 06/18/2025 06/18/2022 Sodium Level 07/17/2026 07/17/2025, 12/22, 01/12/2025, Additional history exists Creatinine Level (Kidney Function Test) 07/19/2026 07/19/2025, 07/17/2025, 04/26/2025, Additional history exists Potassium Level 07/19/2026 07/19/2025, 06/23, 07/18/2025, Additional history exists Fasting Glucose for Diabetes Screening 07/17/2028 07/17/2025, 01/18/2025, 01/12/2025, Additional history exists Colonoscopy 01/07/2030 01/07/2025 Colorectal Cancer Surveillance 01/07/2030 Fall Risk Screen (Annual) Completed 04/29/2025 HPV Vaccines Aged Out No longer eligi ble based on patient's age to complete this topic IPV Vaccines Aged Out No longer eligi ble based on patient's age to complete this topic Medical Devices Implanted Type Area Cement Breaker Device Identifier Shelf Expiration Date Model / [...] DIPSTICK, U Routine 04/26/2025 11:40 AM CDT FL OSMOLALITY ASSAY URINE Routine 04/26/2025 11:40 AM [...] CT Body (07/14/2025 1:45 PM CDT) Narrative [facility] - 07/15/2025 10:04 AM CDT This order [...] System IMG CT PROCEDURES Final R esult IIMS NA * PET skull to mid thigh-Outside NM Pet (06/30/2025 3:25 PM CDT) 06/30/2025 3:21 PM CDT Narrative [facility] - 06/30/2025 6:24 PM CDT This order [...] PROCEDURES Final R esult IIMS NA * IR Nephrostomy Tube Exchange Bilateral (04/29/2025 11:22 AM CDT) Anatomical Region Laterality Modality Genito Urinary, Vascular Int erventional RST LOS, Vascular Interventional ARZ LOS, Vascular Interventional FLA LOS Bilateral X-Ray Angiography Impressions 04/29/2025 1:10 PM CDT 1. Bilateral antegrade nephrostograms, as described in the report body. 2. Exchange of the 10-[place] bilateral nephrostomy tubes, notably with two catheters [...] and draped in the usual sterile fashion. Fork Truck Operator image of the abdomen demonstrates a single, [...] and exchanged over wire for a similar, 10-[place] x 25 cm MCL catheter. The locking [...] then exchanged over a wire for another 10-[place] x 25 cm locking-loop catheter. The locking [...] then exchanged over a wire for a 10-[place] x 25 cm MCL locking-loop catheter. The [...] and draped in the usual sterile fashion. Fork Truck Operator imageof the abdomen demonstrates a single, left-sided [...] transected and exchangedover wire for a similar, 10[place] x 25 cm MCL catheter. The locking [...] then exchanged over a wire for another 10-[place] x 25cm locking-loop catheter. The locking loop [...] was then exchangedover a wire for a 10-[place] x 25 cm MCL locking-loop catheter. The [...] the report body. 2. Exchange of the 10-[place] bilateral nephrostomy tubes, notably withtwo catheters in [...] the report body. 2. Exchange of the 10[place] bilateral nephrostomy tubes, notably with two catheters [...] and draped in the usual sterile fashion. Fork Truck Operator image of the abdomen demonstrates a single, [...] and exchanged over wire for a similar, 10[place] x 25 cm MCL catheter. The locking [...] then exchanged over a wire for another 10-[place] x 25 cm locking-loop catheter. The locking [...] then exchanged over a wire for a 10-[place] x 25 cm MCL locking-loop catheter. The [...] and draped in the usual sterile fashion. Fork Truck Operator imageof the abdomen demonstrates a single, left-sided [...] transected and exchangedover wire for a similar, 10[place] x 25 cm MCL catheter. The locking [...] then exchanged over a wire for another 10-[place]izen [place] x 25cm locking-loop catheter. The locking loop [...] was then exchangedover a wire for a 10-Citizen [place] x 25 cm MCL locking-loop catheter. The [...] the report body. 2. 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 NR us Jessie Borden APRN, C.N.P., D.N.P. IMG IR [...] workflow. us Provider Not In System IMG DIAGNOSTIC IMAGING FL OCEDURES Final Result IIMS NA * (ABNORMAL) Creatinine with Estimated GFR [...] ADD-ON Final Re sult Performing Organization Address [facility] Co de Phone Number [facility] [address] [place] [address] * Osmolality, Urine (04/26/2025 11:40 AM CDT) Pathologist [facility] Osmolality, U 652 150 - 1150 mOsm/kg 04/26/2025 6:45 PM CDT DTL Urine 04/26/2025 11:4 0 AM CDT 04/26/2025 12:59 PM CDT Thelma Streeter M.D. LAB URINE ORDERABLES Selina l Result Performing Organization Address [facility] de Phone Number [facility] [address] [place] [address] * (ABNORMAL) Dipstick, Urine (04/26/2025 11:40 AM [...] ORDERABLES Selina l Result Performing Organization Address City/[facility] Co de Phone Number [facility] [address] [place] [address] * pH, Random, Urine (04/26/2025 11:40 AM CDT) pH, Random, U 6.2 4.5 - 8.0 04/26/2025 6:45 PM CDT DTL Urine 04/26/2025 11:4 0 AM CDT 04/26/2025 12:59 PM CDT Thelma Streeter M.D. LAB URINE ORDERABLES Selina l Result Performing Organization Address [facility] [place] [address] * (ABNORMAL) Microscopic Manual (04/26/2025 11:40 AM [...] ORDERABLES Selina l Result Performing Organization Address City/[facility] de Phone Number [facility] [address] [place], [place] [phone] [place] [address] [facility] [address] [place] [address] * (ABNORMAL) Urinalysis, with Microscopic: Urine, Nephrostomy [...] ORDERABLES Selina walter Result Performing Organization Address [facility] Co de Phone Number [facility] [address] [place] [address], [facility] DTL [facility] [address] [place] [address] * BI Breast Diagnostic Bilateral (03/15/1998 1:14 [...] she has had a previous mammogram in [place] several years previously, and if this could be obtained and the area of asymmetry shown to be stable over that interval, the six month follow-up would not be necessary. Nothing for malignancy in the right breast. P1,P6L,D1,M3.9L,U0L Electronically signed by: Joce Burton M.D. [id number] 15-Mar-1998 14:16 Procedure Note David Burton M.D. [...] that she has had a previousmammogram in [place] several years previously, and if this could beobtained and the area of asymmetry shown to be stable over that interval,the six month follow-up would not be necessary. Nothing for malignancy inthe right breast. P1,P6L,D1,M3.9L,U0L Electronically signed by: Joce Burton M.D. [id number] 15-Mar-1998 14:16 Gail Law M.D. 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 See document viewer. * Full Code (Latest Code Status on File) Date Activated Date Inactivated Comments 04/11/2025 12:44 PM 04/11/2025 7:01 PM Question Answer Comments Full Code: Not Discussed Due to: Patient not available
--- OUTSIDE RECORDS SUMMARY | 2025-07-22 11:55 | XMS_ITS | Patient Health Record ---
Author Organization [facility] Address [address] [place], [place] [id number] Care Team Providers Care Lens Mounter Name Role Phone Dev Mckeon Primary Care Provider [phone] Allergies No Known Allergies Reason For Referral No Information Medications Medication SIG (Take, Route, Frequency, Duration) Notes Start Date End Date Status Dana 3 1000 MG 1 capsule Orally Thr [...] W/U Status Risk Notes Problem Primary hypertension (17107281) Primary hypertension (I10) Active confirmed Vital Signs Heart Rate 70 /min 12/03/2024 Temperature 97.2 degrees Fahrenheit 12/03/2024 Respiratory Rate 16 /min 12/03/2024 Blood pressure diastolic 98 mm Hg 12/03/2024 Weight-kg 70.67 kg 12/03/2024 Blood pressure systolic 158 mm Hg 12/03/2024 Weight 155.8 lbs 12/03/2024 Encounters Encounter Location Date Provider Diagnosis [facility] Foster [address] [place], [place] [phone] 12/03/2024 Dev Mckeon Abdominal bloating R14.0 and Intermittent constipation K59.09 [facility] [address] [place], [place] [phone] 12/06/2024 Dev Mckeon Assessments Encounter Date Diagnosis [...] End Date [employer] Medicare [address] [address] [place] [address] [id number] [phone] [id number] Rosa Garcia Self - patient is the [...]
--- OUTSIDE RECORDS SUMMARY | 2025-07-22 11:55 | XMS_ITS ---
Author Organization [facility] Address [address] [place] [address] Care Team Providers Care Sugar Boiler Name Role Phone Unavailable Primary Care Provider Unavailabl e Active Problems * This document contains information received from the source organization and may not represent a complete record from that organization. Problem Noted Date Diagnosed Date Atherosclerotic Heart Diseas e Of [place] Coronary Artery Without Angina Pectoris 03/30/2025 Malignant [...] Fraction Dose Fractions Total Dose Plans Planned [id number] 04/06/2025 - 04/06/2025 700 cGy 7 00 cGy [id number] 03/30/2025 - 03/30/2025 700 cGy 7 00 cGy Reference Points Delivered DPV HDR 03/30/2025 - 04/06/2025 2,100 cGy * Course 1xPelvis 02/21/2025 - 03/28/2025 Treatment Period Fraction Dose Fractions Total Dose Plans Planned [id number] 02/21/2025 - 03/28/2025 180 cGy 25 / 25 4 ,500 cGy Reference Points Delivered [id number] 02/21/2025 - 03/28/2025 4,500 cGy Lifetime Dose Tracking * Chemical Lifetime Dose Automatic Entry Manual Entr y Radiation 36.09 mGy 36.09 mGy 0 mGy Fluoro Time 6.62 minutes 6.62 minutes 0 minutes DAP (uGy-m2) 752.62 uGy-m2 752.62 uGy-m2 0 uGy-m2
--- OUTSIDE RECORDS SUMMARY | 2025-07-22 11:56 | XMS_ITS | Encounter Summary ---
Author Organization [facility] Address [address] [place] [address] Care Team Providers Care Maternal Child Nurse Name Role Phone Unavailable Primary Care Provider Unavailabl e Encounter Details Date Type Department Care Team (Late st Contact Info) Description 07/07/2025 Orders Only Department of Radiation Oncology in [place], [place] [address] [place] [address] Thelma Streeter M.D. [address] [place] [phone] Malignant Neoplasm Of Cervix (HCC) (Primary Dx) Social History Tobacco Use Types Packs/Day Years Used Date Smoking Tobacco: Never Smokeless Tobacco: Never Alcohol Use Standard Drinks/Week Comments Not Currently 0 (1 standard drink = 0.6 oz pure alcohol) Quit drinkinking in August after pelvic pain started. [facility] Utilities Answer Date Recorded In the past 12 months has [employer], gas, oil, or water [email or web address] threatened to shut off services in your [...] AM CDT Legal Sex Female 6:12 PM SIDE SPLITTER Gender Identity Female 03/05/2025 6:51 AM CDT Sexual Orientation Straight 03/05/2025 6: 51 AM CDT documented as of this encounter Plan of Treatment Upcoming Encounters Date Type Department Care Team (Late st Contact Info) Description 08/05/2025 11:00 AM SIDE SPLITTER Appointment Department of Radiology, [facility], in [place], [place] [address] [place] [phone] Jessie Borden APRN, C.N.P., D.N.P. [address] [place] [phone] 08/05/2025 2:30 PM SIDE SPLITTER Office Visit Department of Urology in [place], [place] [address] [place] [phone] Jessie Borden APRN, C.N.P., D.N.P. [address] [place] [phone] 10/12/2025 11:00 AM SIDE SPLITTER Appointment Department of Radiation Oncology in [place], [place] [address] [place] [phone] Thelma Streeter M.D. [address] [place] [phone] documented as of this encounter Visit Diagnoses Diagnosis Malignant Neoplasm Of Cervix (HCC)- Primary documented in this encounter
--- OUTSIDE RECORDS SUMMARY | 2025-07-22 11:56 | XMS_ITS | Clinical Summary ---
Author Organization [employer] [facility] Address [address] [place] [address] Care Team Providers Care Hand Woodworking Sander Name Role Phone Votel, Axel Thomas MD Primary Care Provider + [facility] Care, [place] Unavailable Allergies Active Allergy Reactions Criticality Noted Date Comments Ciprofloxacin Diarrhea,Myalgia 07/15/2025 Medications coenzyme q10 (Co Q-10) 100 mg cap Take 1 Capsule (100 mg) by mouth once daily. 0 022 Active miscellaneous medical supply (Blood Pressure Cuff) miscIndications:E ssential hypertension As directed. Home automatic blood pressure cuff. 1 Each 024 Active Non-Adherent Bandage 4 X 4 spgeIndications:B ilateral hydronephrosis Apply topically to affected area(s). Apply around drain twice per week and as needed if dressing wet or loose. 100 Each 025 Active Adhesive Tape (Medipore H) 3 X 10 -yard tapeIndications:B ilateral hydronephrosis Apply topically to affected area(s). 3 Each 025 Active carvediloL 25 mg tabletIndications :HTN (hypertension) Take 1 Tablet (25 mg) by mouth two times daily with meals. 180 Tablet 3 Active traZODone (DESYREL) 50 mg tabletIndications :Insomnia, idiopathic TAKE 1 TABLET BY MOUTH AT BEDTIME 93 Tablet Active apixaban (ELIQUIS) 5 mg tabletIndications :pulmonary thromboembolism Take 10 mg by mouth two times daily. 10 mg BID x 7 days, followed by 5 mg BID (started 07/16) 2024 Active sennosides-docusa te (Senna with Docusate Sodium) (8.6-50 mg) tablet Take by mouth two times daily. 2 tablets in AM, 1 tablet in PM Active melatonin 3 mg tablet Take 6 mg by mouth once daily in the evening. Vivian administration timing is 2-3 hours before bedtime. Active apixaban (ELIQUIS) 5 mg tabletIndications :pulmonary thromboembolism Take 5 mg by mouth two times daily. Indications: a clot in the lung Active krill/om-3/dha/ep a/phospho/ast (ANTARCTIC KRILL OIL ORAL) Take 4 Capsules by mouth once daily. Active cholecalciferol (Vitamin D-3) 2,000 unit capsule Take 1 Capsule (2,000 units) by mouth once daily. 0 022 2024 Discontinued( Pharmacist change per medication history (E-cancel not sent)) fish oil-omega-3 fatty acids (Fish OiL) 1,200-360 mg cap Take 1 Capsule by mouth two times daily. One capsule is 1200 mg-360 mg 2024 Discontinued( *Patient states no longer taking) acetaminophen 325 mg tabletIndications :Malignant neoplasm of cervix, unspecified site (HC) Take 2 Tablets (650 mg) by mouth every 4 hours if needed for Pain (For mild pain.). Max acetaminophen dose: 4000mg in 24 hrs. 180 Tablet 01/15/20 25 12:03 PM CDT 2024 Discontinued( Pharmacist change per medication history (E-cancel not sent)) polyethylene glycoL 17 gram/scoop powderIndications :Malignant neoplasm of cervix, unspecified site (HC),Constipation , unspecified constipation type [The details of the medication are not available because there are pending changes by a home health clinician.] 238 g 01/15/20 12:03 PM CDT 2024 Discontinued( *Patient states no longer taking) traZODone 50 mg tabletIndications :Insomnia, idiopathic Take 1 Tablet (50 mg) by mouth at bedtime. 31 Tablet 2 2024 Discontinued prochlorperazine 10 mg tablet Take 10 mg by mouth every 6 hours if needed for Nausea/Vomiting. 2024 Discontinued( *Patient states no longer taking) OLANzapine 2.5 mg tablet Take 2.5 mg by mouth one time if needed for Sleep. 2024 Discontinued( *Patient states no longer taking) sennosides-docusa te (SENOKOT S) (8.6-50 mg) tabletIndications :Constipation, unspecified constipation type Take 1 Tablet by mouth two times daily. 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 Non-infectious pneumonia 07/11/2025 ACP (advance care planning) 06/22/2025 Overview (06/23/2025): Patient has identified Health Care Agent(s): Yes Add Health Care Agents: Yes Health Care Agent(s): Primary Health Care Agent: Brooke Angle Relationship: sister Secondary Health Care Agent: Rachana [...] Encounters Date Type Department Care Team Description 07/22/2025 Nurse Triage [facility] [address] [place] [address] Axel Palomo MD Breathing Problem 07/22/2025 Telephone [facility] [address] [place] [address] Axel Palomo MD Concerns (Health update triage transfer) 07/21/2025 2:30 PM CDT Office Visit [facility] [address] [address] Axel Palomo MD Hospital F/U (ANW, 07/17/25, pulmonary embolism) 07/20/2025 1:00 PM CDT Home Care Visit [facility] [address] [place] [phone] Krista Velasco, DUYEN MCCRACKEN - OASIS START OF CARE 07/20/2025 Travel 07/20/2025 Orders Only [facility] [address] [place] [address] Axel Palomo MD <No scans attached> 07/20/2025 Telephone [facility] [address] [place] [phone] Krista Velasco RN Home Care 07/20/2025 Plan of Care Documentation [facility] [address] [place] [phone] 07/20/2025 Patient Outreach [facility] [address] [place] [address] Genia Fuentes RN Primary RN Care Management; Hospital F/U (LACE 68) 07/19/2025 Home Care Visit [facility] [address] [place] [phone] Krista Velasco RN EPISODE DISCHARGE 07/19/2025 Home Care Visit [facility] [address] [place] [phone] Sabrina Howard RN SN - OASIS TRANSFER 07/18/2025 Home Care Visit [facility] [address] [place] [phone] Sabrina Howard RN CARE TRANSITION NOTE 07/17/2025 6:39 PM CDT - 07/19/2025 1:50 PM CDT Hospital Encounter [facility] [address] [place] [address] Drew Parmar DO Melamed, Roman, MD Residents, Icu Avni Ivey MD Acute pulmonary embolism with acute cor pulmonale, unspecified pulmonary embolism type (HC) (Primary Dx); Uterine/cervical mass with concern for bladder and rectal invasion Discharge Disposition: Home Self Care 07/17/2025 Orders Only [facility] Scanner 1 scan: (1-Ord) [facility], CT ABDOMEN PELVIS W CON, 07/17/2025 07/17/2025 Orders Only [facility] Scanner 1 scan: (1-Ord) [facility], CT ANGIO CHEST PE PROTOCOL, 07/17/2025 07/15/2025 9:00 AM CDT Office Visit [facility] [address] [address] Shahbaz Gaviria MD Consult (Recurring urinary infections. ) 07/15/2025 Orders Only [facility] Scanner 1 scan: (1-Ord) [place], ANGIO CHEST PE PROTOCOL, 07/15/2025 07/14/2025 Orders Only [facility] Scanner 1 scan: (1-Ord) [place], CHEMISTRY, 07/14/2025 07/14/2025 Orders Only [facility] Scanner 1 scan: (1-Ord) [facility], CT ABDOMEN PELVIS W/ CON, 07/14/2025 07/14/2025 Travel 07/12/2025 10:00 AM CDT Home Care Visit [facility] [address] [place] [phone] Krista Velasco, RN SN - OASIS RECERTIFICATION 07/12/2025 9:00 AM CDT Home Care Visit [facility] [address] [place] [phone] Dane Haynes OPTICAL SALES ASSOCIATE - HOME VISIT 07/12/2025 Plan of Care Documentation [facility] [address] [place] [phone] 07/12/2025 Telephone [facility] [address] [place] [phone] Krista Velasco, professor of fine art 07/11/2025 10:25 AM CDT Office Visit [facility] [address] [place] [address] Axel Palomo MD Abdominal Pain (Constipated, not sleeping); Results (PET scan, wants clarification) 07/11/2025 Telephone [facility] [address] [place] [address] Axel Palomo MD Appointment (Request appointment for New Patient and Consult ) 07/11/2025 Travel 07/06/2025 10:00 AM CDT Home Care Visit [facility] [address] [place] [address] Too Ayala, PT PT - DISCIPLINE DISCHARGE 07/06/2025 Travel 07/05/2025 10:00 AM CDT Home Care Visit [facility] [address] [place] [address], [place] [phone] Krista Velasco RN SN - HOME VISIT 07/05/2025 9:15 AM CDT Home Care Visit [facility] [address] [place] [phone] Dane Haynes OPTICAL SALES ASSOCIATE - HOME VISIT 06/30/2025 9:00 AM CDT Home Care Visit [facility] [address] [place] [phone] Krista Velasco RN SN - HOME VISIT 06/30/2025 Orders Only [facility] Scanner 1 scan: (1-Ord) [facility], SKULL BASE TO THIGHS, 06/30/2025 06/29/2025 9:00 AM CDT Home Care Visit [facility] [address] [place] [phone] Too Ayala, PT PT - HOME VISIT 06/28/2025 9:30 AM CDT Home Care Visit [facility] [address] [place] [phone] Dane Haynes OPTICAL SALES ASSOCIATE - HOME VISIT 06/28/2025 Refill [facility] [address] [place] [address] Axel Palomo MD Refill Request (Trazodone) 06/24/2025 11:00 AM CDT Home Care Visit [address] [phone] Krista Velasco RN SN - HOME VISIT 06/24/2025 Telephone [facility] [address] [place] [address] Krista Velasco RN Home Care 06/22/2025 11:30 AM CDT Home Care Visit [facility] [address] [place] [address] Shanika Joya MSW COMPARATIVE SOCIOLOGY PROFESSOR - INITIAL ASSESSMENT 06/21/2025 9:30 AM CDT Home Care Visit [facility] [address] [place] [address], [place] [phone] Dane Haynes OPTICAL SALES ASSOCIATE - HOME VISIT 06/16/2025 9:30 AM CDT Home Care Visit [facility] [address] [place] [place] [address], [place] [address] Krista Velasco RN SN - HOME VISIT 06/15/2025 Home Care Visit [facility] [address] [place] [address], [place] [phone] Shanika Joya MSW CARE COORDINATION 06/14/2025 7:30 AM CDT Home Care Visit [facility] [address] [place] [place] [address], [place] [phone] Dane Haynes OPTICAL SALES ASSOCIATE - HOME VISIT 06/10/2025 2:00 PM CDT Home Care Visit [facility] [address] [place] [place] [address], [place] [phone] Drew Dent, PT PT - INITIAL ASSESSMENT 06/10/2025 Orders Only [facility] Scanner 1 scan: (1-Ord) [place], MULTIPLE RESULTS, 06/10/2025 06/10/2025 Travel 06/09/2025 2:30 PM CDT Home Care Visit [facility] [address] [place] [place] [address], [place] [phone] Krista Velasco RN SN - HOME VISIT 06/08/2025 Home Care Visit [facility] [address] [place] [place] [address], [place] [phone] Drew Dent, PT CARE COORDINATION 06/07/2025 9:15 AM CDT Home Care Visit [facility] [address] [place] [address] Dane Haynes OPTICAL SALES ASSOCIATE - HOME VISIT 06/07/2025 Orders Only [facility] Scanner 1 scan: (1-Ord) [place], URINE CULTURE, 06/07/2025 06/07/2025 Orders Only [facility] Scanner 1 scan: (1-Ord) [facility], URINE CULTURE, 06/07/2025 06/07/2025 Orders Only [facility] Scanner 1 scan: (1-Ord) [facility], MULTIPLE LABS, 06/07/2025 06/07/2025 Telephone [facility] [address] [place] [address] Axel Palomo MD Urinary Problem 06/07/2025 Nurse Triage [place] [address] [place] [address] Axel Palomo MD Urinary Problem 06/02/2025 11:30 AM CDT Home Care Visit [facility] [address] [place] [phone] Krista Velasco, DUYEN SN - HOME VISIT 05/26/2025 9:30 AM CDT Home Care Visit [facility] [address] [place] [phone] Petra Carroll LPN FORGESMITH - HOME VISIT 05/25/2025 9:00 AM CDT Home Care Visit [facility] [address] [place] [phone] Dane Haynes OPTICAL SALES ASSOCIATE - HOME VISIT 05/25/2025 Home Care Visit [facility] [address] [place] [phone] Fina Waters, RN CARE COORDINATION 05/19/2025 8:30 AM CDT Home Care Visit [facility] [address] [place] [phone] Dane Haynes OPTICAL SALES ASSOCIATE - HOME VISIT 05/18/2025 11:00 AM CDT Home Care Visit [facility] [address] [place] [address] Petra Carroll LPN FORGESMITH - HOME VISIT 05/18/2025 Medical Messaging [facility] [address] [place] [address] Axel Palomo MD Nephrology Referral 05/13/2025 1:00 PM CDT Home Care Visit [facility] [address] [place] [place] [address], [place] [address] Krista Velasco RN SN - OASIS RECERTIFICATION 05/13/2025 Plan of Care Documentation [facility] [address] [place] [address], [place] [phone] 05/10/2025 2:30 PM CDT Office Visit [facility] [address] [place] [address] Axel Palomo MD ER Follow up ([place], UTI, 04/29/25) 05/10/2025 10:00 AM CDT Home Care Visit [facility] [address] [place] [address], [place] [phone] Krista Velasco RN SN - HOME VISIT 05/10/2025 Travel 05/06/2025 9:45 AM CDT Home Care Visit [facility] [address] [place] [place] [address], [place] [address] Nicky Ragland RN SN - HOME VISIT 05/05/2025 Travel 05/03/2025 1:00 PM CDT Home Care Visit [facility] [address] [place] [phone] Krista Velasco, DUYEN SN - OASIS RESUMPTION OF CARE 05/03/2025 Telephone [facility] [address] [place] [place] [address], [place] [address] Krista Velasco, professor of fine art 04/29/2025 Home Care Visit [facility] [address] [place] [place] [address], [place] [address] Krista Velasco, DUYEN SN - OASIS TRANSFER 04/28/2025 Orders Only [facility] Scanner 1 scan: (1-Ord) [place], URINE/BLOOD CULTURE W/LABS, 04/28/2025 04/27/2025 11:00 AM CDT Home Care Visit [facility] [address] [place] [address] Krista Velasco, DUYEN SN - HOME VISIT 04/27/2025 Orders Only [facility] Scanner 1 scan: (1-Ord) [place], 04/27/2025 04/27/2025 Orders Only [facility] Scanner 1 scan: (1-Ord) [facility], MICROBILOGY, PSEUDOMONAS AERUGINOSA, 04/27/2025 04/27/2025 Home Care Visit [facility] [address] [place] [address] Krista Velasco, DEPUTY SHERIFF CHIEF NOTE 04/27/2025 Orders Only [facility] Scanner 1 scan: (1-Ord) [facility], CHEST 2 V, 04/27/2025 04/22/2025 9:00 AM CDT Home Care Visit [facility] [address] [place] [address] Petra Carroll LPN FORGESMITH - HOME VISIT from Last 3 Months [...] have a drink containing alcohol ? 0 07/21/2025 Average Number of Drinks Not on file 025 Frequency of Binge Drinking Not on file 06/24 Financial Resource Strain Answer Date R ecorded [...] on file Legal Sex Female 7:12 AM SALES REPRESENTATIVE GAS SERVICE Gender Identity Not on file Sexual Orientation Not on file Obstetrics History Para Term AB IAB SAB Ectopic Multiple Livin g Live Births 0 0 0 0 0 0 0 0 0 0 0 Last Filed Vital Signs Vital Sign Reading Time Taken Comments Blood Pressure 122/84 07/21/2025 2:46 PM CDT Pulse 102 07/21/2025 2:46 PM CDT Temperature 36.5 C (97.7 F) 07/20/2025 1:16 PM CDT Respiratory Rate 16 07/20/2025 1:16 PM CDT Oxygen Saturation 92% 07/21/2025 2:46 PM CDT Inhaled Oxygen Concentration - - Weight 67.5 kg (148 lb 12.8 oz) 07/21/2025 2:46 PM CDT Height 165.1 cm (5' 5) 07/17/2025 6:45 PM CDT Body Mass Index 24.76 07/17/2025 6:45 PM CDT Plan of Treatment Upcoming Encounters Date Type Department Care Team (Late st Contact Info) Description 07/25/2025 11:45 AM SALES REPRESENTATIVE GAS SERVICE Appointment [facility] [address] [place] [address], [place] [address] Dane Haynes Isaías 07/28/2025 10:00 AM SALES REPRESENTATIVE GAS SERVICE Appointment [facility] [address] [place] [place] [address], [place] [address] Krista Velasco, DUYEN 08/04/2025 4:00 AM SALES REPRESENTATIVE GAS SERVICE Appointment [facility] [address] [place] [place] [address], [place] [address] Krista Velasco, DUYEN 08/11/2025 4:00 AM SALES REPRESENTATIVE GAS SERVICE Appointment [facility] [address] [place] [place] [address], [place] [address] Krista Velasco, DUYEN 08/18/2025 4:00 AM SALES REPRESENTATIVE GAS SERVICE Appointment [facility] [address] [place] [place] [address], [place] [address] Krista Velasco, DUYEN 08/25/2025 4:00 AM SALES REPRESENTATIVE GAS SERVICE Appointment [facility] [address] [place] [place] [address], [place] [address] Krista Velasco, DUYEN 09/01/2025 4:00 AM SALES REPRESENTATIVE GAS SERVICE Appointment [facility] [address] [place] [place] [address], [place] [address] Krista Velasco, DUYEN 09/08/2025 4:00 AM SALES REPRESENTATIVE GAS SERVICE Appointment [facility] [address] [place] [address], [place] [address] Krista Velasco, DUYEN 09/15/2025 4:00 AM SALES REPRESENTATIVE GAS SERVICE Appointment [facility] [address] [place] [address], [place] [address] Krista Velasco, RN Health Maintenance Due Date Last Done [...] Procedure Name Priority Date/Time Associated Diagnosis Comments SCAN-CARDIAC STRIP 07/19/2025 7: 30 AM CDT GLUCOSE METER Timed 07/19/2025 4:22 AM CDT POTASSIUM Early AM 07/19/2025 4:22 AM CDT CREATININE Early AM 07/19/2025 4:22 AM CDT APTT Early AM 07/19/2025 4:22 AM CDT HEMOGLOBIN Early AM 07/19/2025 4:22 AM CDT PLATELET COUNT Early AM 07/19/2025 4:22 AM CDT MAGNESIUM Add On 07/19/2025 1:06 AM CDT POTASSIUM Timed 07/19/2025 1:06 AM CDT SCAN-CARDIAC STRIP 07/18/2025 10:52 PM CDT GLUCOSE METER Timed 07/18/2025 10:09 PM CDT POTASSIUM Timed 07/18/2025 6:50 PM CDT GLUCOSE METER Timed 07/18/2025 4:50 PM CDT POTASSIUM MERCEDEZ 07/18/2025 12:38 PM CDT MAGNESIUM MERCEDEZ 07/18/2025 12:38 PM CDT GLUCOSE METER Timed 07/18/2025 12:10 PM CDT ECHO TTE COMPLETE WO CONTRAST STAT 07/18/2025 11:18 AM CDT GLUCOSE METER Timed 07/18/2025 9:25 AM CDT APTT Timed 07/18/2025 9:21 AM CDT SCAN-CARDIAC STRIP 07/18/2025 7: 30 AM CDT HEMOGLOBIN Early AM 07/18/2025 5:21 AM CDT PLATELET COUNT Early AM 07/18/2025 5:21 AM CDT APTT Timed 07/18/2025 2:09 AM CDT CBC WITH AUTO DIFFERENTIAL STAT 07/17/2025 7:56 PM CDT PROTIME-INR STAT 07/17/2025 7:56 PM CDT LACTATE VENOUS STAT 07/17/2025 7:56 PM CDT HEPARIN ANTI-XA STAT 07/17/2025 7:56 PM CDT FIBRINOGEN,QUANTITAT DORIAN STAT 07/17/2025 7:56 PM CDT APTT STAT 07/17/2025 7:56 PM CDT MAGNESIUM STAT 07/17/2025 7:56 PM CDT HEPATIC FUNCTION PANEL STAT 07/17/2025 7:56 PM CDT CBC WITH AUTO DIFFERENTIAL STAT 07/17/2025 7:56 PM CDT BASIC METABOLIC PANEL STAT 07/17/2025 7:56 PM CDT US VENOUS LOWER EXTREMITY BILATERAL PORTABLE STAT 07/17/2025 7:43 PM CDT SCAN-CT INTERPRETATION 07/17/2025 12:00 AM CDT SCAN-CT INTERPRETATION 07/17/2025 12:00 AM CDT SCAN-CT INTERPRETATION 07/15/2025 12:00 AM CDT SCAN-LABORATORY REPORT 07/14/2025 12:00 AM CDT SCAN-CT INTERPRETATION 07/14/2025 12:00 AM CDT SCAN-PET SCAN 06/30/2025 12:00 AM CDT SCAN-LABORATORY REPORT 06/10/2025 12:00 AM CDT SCAN-PATHOLOGY REPORT 06/07/2025 12:00 AM CDT SCAN-PATHOLOGY REPORT 06/07/2025 12:00 AM CDT SCAN-LABORATORY REPORT 06/07/2025 12:00 AM CDT SCAN-PATHOLOGY REPORT 04/28/2025 12:00 AM CDT SCAN-ELECTROCARDIOGR AM EKG 04/27/2025 12:00 AM CDT SCAN-PATHOLOGY REPORT 04/27/2025 12:00 AM CDT SCAN-RADIOLOGY REPORT 04/27/2025 12:00 AM CDT LIPID PANEL W REFLEX MEASURED LDL Routine 01/18/2025 2:53 PM CDT Pure hypercholesterolemia ANTI HCV Routine 06/11/2023 12:43 PM CDT Need for hepatitis C screening test SDNA-FIT EXTERNAL (COLOGUARD) Routine 06/18/2022 5:30 AM CDT Screening for colon cancer from Last 3 Months or Most Recently Relevant to Health Maintenance Results * SCAN-CARDIAC STRIP (07/19/2025 7:30 AM CDT) us Scanner OTHER Final Result * (ABNORMAL) PLATELET COUNT (07/19/2025 4:22 AM CDT) Only the most recent of2 resultswithin the time period is included. PLATELET COUNT 109(L) 140 - 440 thou/cu mm 07/19/2025 4:33 AM CDT [facility] MPV 9.6 6.5 - 11.0 fL 07/19/2025 4:33 AM CDT [facility] Blood BLOOD SPECIMEN / Unknown Line/Port / Unknown 07/19/2025 4:22 AM CDT 07/19/2025 4:29 AM CDT Narrative [facility] - 07/19/2025 4:33 AM CDT Every morning while on IV heparin. Necessary every morning while on IV heparin. Drew Parmar DO HEMATOLOGY Final Result [facility] [address] [place] [address], * (ABNORMAL) HEMOGLOBIN (07/19/2025 4:22 AM CDT) Only the most recent of2 resultswithin the time period is included. HEMOGLOBIN 9.7(L) 12.0 - 16.0 g/dL 07/19/2025 4:33 AM CDT [facility] MCV 92 80 - 100 fL 07/19/2025 4:33 AM CDT [facility] Blood BLOOD SPECIMEN / Unknown Line/Port / Unknown 07/19/2025 4:22 AM CDT 07/19/2025 4:29 AM CDT Narrative [facility] - 07/19/2025 4:33 AM CDT Every morning while on IV heparin. Necessary every morning while on IV heparin. Drew Parmar DO HEMATOLOGY Final Result Performing Organization Address City/[facility]/ZIP Co de Phone Number [facility] [address] [place] [address], [place] * POTASSIUM (07/19/2025 4:22 AM CDT) Only the most recent of4 resultswithin the time period is included. POTASSIUM 3.9 3.5 - 5.1 mmol/L 07/19/2025 5:00 AM CDT [facility] Blood BLOOD SPECIMEN / Unknown Line/Port / Unknown 07/19/2025 4:22 AM CDT 07/19/2025 4:29 AM CDT Avni Ivey MD CHEMISTRY Fi nal Result Performing Organization Address [facility] Co de Phone Number [facility] [address] [place] [address], [place] * (ABNORMAL) Creatinine AM (07/19/2025 4:22 AM CDT) eGFR 45(L) >90 mL/min/1.7 3m2 07/19/2025 5:00 AM CDT [facility] Comment:As of 2021, eG FR is calculated by the CKD-EPI creatinine equation without race adjustment. eGFR can be influenced by muscle mass, exercise, and diet. The reported eGFR is an estimation only and is only applicable if the renal function is stable. CREATININE 1.26(H) 0.50 - 0.90 mg/dL 07/19/2025 5:00 AM CDT [facility] Blood BLOOD SPECIMEN / Unknown Line/Port / Unknown 07/19/2025 4:22 AM CDT 07/19/2025 4:29 AM CDT Avni Ivey MD CHEMISTRY Fi nal Result Performing Organization Address City/[facility]/ZIP Co de Phone Number [facility] [address] [address], [place] * (ABNORMAL) APTT (07/19/2025 4:22 AM CDT) Only the most recent of4 resultswithin the time period is included. APTT 73(H) 25 - 36 sec 07/19/2025 4:41 AM CDT [facility] Blood BLOOD SPECIMEN / Unknown Line/Port / Unknown 07/19/2025 4:22 AM CDT 07/19/2025 4:29 AM CDT Narrative [facility] - 07/19/2025 4:41 AM CDT Therapeutic Range: 59-89 seconds Albert Corley MD HEMATOLOGY Final Result Performing Organization Address [facility] Co de Phone Number [facility] [address] [place] [address], [place] * (ABNORMAL) GLUCOSE METER (07/19/2025 4:22 AM CDT) Only the most recent of5 resultswithin the time period is included. GLUCOSE METER 103(H) 65 - 100 mg/dL 07/19/2025 4:27 AM CDT [facility] Blood BLOOD SPECIMEN / Unknown 07/19/2025 4:22 AM CDT 07/19/2025 4:27 AM CDT Drew Parmar DO CHEMISTRY Final Result Performing Organization Address City/[facility] Co de Phone Number [facility] [address] [address], [place] * MAGNESIUM (07/19/2025 1:06 AM CDT) Only the most recent of3 resultswithin the time period is included. MAGNESIUM 2.2 1.6 - 2.4 mg/dL 07/19/2025 3:02 AM CDT [facility] Blood BLOOD SPECIMEN / Unknown Line/Port / Unknown 07/19/2025 1:06 AM CDT 07/19/2025 1:13 AM CDT us Avni Ivey MD CHEMISTRY Fi nal Result [facility] [address] [place] [address], * SCAN-CARDIAC STRIP (07/18/2025 10:52 PM CDT) us Scanner OTHER Final Result * ECHO TTE COMPLETE WO CONTRAST (07/18/2025 11:18 AM CDT) AORTIC VALVE MEAN PG 3 mmHg EJECTION FRACTION 70 % PEAK TR VELOCITY 2.5 m/s LVEDD 4.0 cm EJECTION FRACTION 60 - 65% Anatomical Region Laterality Modality Ultrasound 07/18/2025 8:25 AM CDT Narrative 07/18/2025 10:21 AM CDT ECHOCARDIOGRAM ALYSSA PULIDO : 1950 74 years Study Date: 07/18/2025 8:25:02 AM Gender: F BP: 134/90 mmHg Height: 165.00 cm BSA: 1.73 m Weight: 66.00 kg Tech: DW Referring MD: DREW PARMAR Site: [facility] Reading Location: [facility] Patient Location: Inpatient. Procedure: 2D, Color Doppler and Spectral Doppler. Indication for study: PULMONARY EMBOLISM Cardiac Rhythm: Regular.Study quality: Good. Final Impressions: 1. Normal LV size, normal wall thickness, normal global systolic function with an estimated EF of 60 - 65%. 2. Right ventricular cavity size is normal, global systolic RV function is mildly reduced. 3. The aortic valve is trileaflet and sclerotic, no stenosis and no regurgitation. 4. Tricuspid valve is normal, mild tricuspid regurgitation. 5. The inferior vena cava is normal sized, respiratory size variation greater than 50%. 6. Normal estimated pulmonary pressures by tricuspid regurgitation velocity and right atrial pressure (25 mmHg plus RAP). 7. No pericardial effusion. Comparison There are no prior studies on this patient for comparison purposes. Chamber Sizes and Function Normal left ventricular size, normal wall thickness, normal global systolic function with an estimated EF of 60 - 65%. No resting regional wall motion abnormality visualized. Left atrial size is normal. Right ventricular cavity size is normal, global systolic RV function is mildly reduced. RV wall thickness is normal. The right atrium is normal. Right atrial volume index is 13 ml/m . Right atrial area is 11 cm . The pulmonary artery is of normal size and origin. The sinus of Valsalva is normal sized. The ascending aorta is normal sized. Valves, RV Pressures and Diastolic Function The aortic valve is trileaflet and sclerotic, no stenosis and no regurgitation. The mitral valve is normal in structure, mild mitral regurgitation. Diastolic function assessment not performed. The tricuspid valve is normal in structure, mild tricuspid regurgitation. The tricuspid regurgitant velocity is 2.5 m/s, the estimated right ventricular systolic pressure is 25 mmHg plus right atrial pressure. There is normal estimated pulmonary pressure by tricuspid regurgitation velocity and right atrial pressure. The pulmonic valve is normal. Mild pulmonary regurgitation. Masses, Effusion, Shunts There is no pericardial effusion. The inferior vena cava is normal sized, respiratory size variation greater than 50%. No left to right shunting was detected by limited color flow Doppler interrogation of the interatrial septum. MEASUREMENTS AND CALCULATIONS 2-D Measurements and LV Function: LVID (d) 4.0 cm LV FS% (2D) 25 % LVID (s) 3.0 cm LVOT diameter 2.0 cm IVS (d) 0.9 cm HR 88 bpm LVPW (d) 0.8 cm LA Vol index 16 ml/m2 Ao Sinus 3.4 cm RA Vol index 13 ml/m2 Ao Sinus ULN 3.7 cm RA area 11 cm Asc Ao 3.3 cm RV Basal Diam 2.9 cm Asc Ao ULN 4.0 cm RV Mid Diam 2.2 cm Aortic Valve: Vmax 1.0 m/s MANI (V) 2.67 cm VTI 0.20 m MANI (I) 2.47 cm LVOT V max 0.9 m/s Max PG 4 mmHg LVOT VTI 0.16 m Mean PG 3 mmHg SV 49 ml Dim Index 0.78 SV index 29 ml/m CO 4.3 l/min CI 2.5 l/min/m Tricuspid Valve and estimated PA pressures: TR Vmax 2.5 m/s TAPSE 1.9 cm TR maxG 25 mmHg Pulmonic Valve: PV Vmax 0.8 m/s PV AT 164 msec . This study was interpreted by an [facility] accredited facility. Final Procedure Note Hoang Enriquez MD - 07/18/2025 ECHOCARDIOGRAM ALYSSA PULIDO : 1950 74 years Study Date: 07/18/2025 8:25:02 AM Gender: F BP: 134/90 mmHg Height: 165.00 cm BSA: 1.73 m Weight: 66.00 kg Tech: DW Referring MD: DREW PARMAR Site: [facility] Reading Location: [facility] Patient Location: Inpatient. Procedure: 2D, Color Doppler and Spectral Doppler. Indication for study: PULMONARY EMBOLISM Cardiac Rhythm: Regular.Study quality: Good. Final Impressions: 1. Normal LV size, normal wall thickness, normal global systolic functionwith an estimated EF of 60 - 65%. 2. Right ventricular cavity size is normal, global systolic RV functionis mildly reduced. 3. The aortic valve is trileaflet and sclerotic, no stenosis and noregurgitation. 4. Tricuspid valve is normal, mild tricuspid regurgitation. 5. The inferior vena cava is normal sized, respiratory size variationgreater than 50%. 6. Normal estimated pulmonary pressures by tricuspid regurgitationvelocity and right atrial pressure (25 mmHg plus RAP). 7. No pericardial effusion. Comparison There are no prior studies on this patient for comparison purposes. Chamber Sizes and Function Normal left ventricular size, normal wall thickness, normal globalsystolic function with an estimated EF of 60 - 65%. No resting regionalwall motion abnormality visualized. Left atrial size is normal. Rightventricular cavity size is normal, global systolic RV function is mildlyreduced. RV wall thickness is normal. The right atrium is normal. Rightatrial volume index is 13 ml/m . Right atrial area is 11 cm . Thepulmonary artery is of normal size and origin. The sinus of Valsalva isnormal sized. The ascending aorta is normal sized. Valves, RV Pressures and Diastolic Function The aortic valve is trileaflet and sclerotic, no stenosis and noregurgitation. The mitral valve is normal in structure, mild mitralregurgitation. Diastolic function assessment not performed. The tricuspidvalve is normal in structure, mild tricuspid regurgitation. The tricuspidregurgitant velocity is 2.5 m/s, the estimated right ventricular systolicpressure is 25 mmHg plus right atrial pressure. There is normal estimatedpulmonary pressure by tricuspid regurgitation velocity and right atrialpressure. The pulmonic valve is normal. Mild pulmonary regurgitation. Masses, Effusion, Shunts There is no pericardial effusion. The inferior vena cava is normal sized,respiratory size variation greater than 50%. No left to right shunting wasdetected by limited color flow Doppler interrogation of the interatrialseptum. MEASUREMENTS AND CALCULATIONS 2-D Measurements and LV Function: LVID (d) 4.0 cm LV FS% (2D) 25 % LVID (s) 3.0 cm LVOT diameter 2.0 cm IVS (d) 0.9 cm HR 88 bpm LVPW (d) 0.8 cm LA Vol index 16 ml/m2 Ao Sinus 3.4 cm RA Vol index 13 ml/m2 Ao Sinus ULN 3.7 cm RA area 11 cm Asc Ao 3.3 cm RV Basal Diam 2.9 cm Asc Ao ULN 4.0 cm RV Mid Diam 2.2 cm Aortic Valve: Vmax 1.0 m/s MANI (V) 2.67 cm VTI 0.20 m MANI (I) 2.47 cm LVOT V max 0.9 m/s Max PG 4 mmHg LVOT VTI 0.16 m Mean PG 3 mmHg SV 49 ml Dim Index 0.78 SV index 29 ml/m CO 4.3 l/min CI 2.5 l/min/m Tricuspid Valve and estimated PA pressures: TR Vmax 2.5 m/s TAPSE 1.9 cm TR maxG 25 mmHg Pulmonic Valve: PV Vmax 0.8 m/s PV AT 164 msec . This study was interpreted by an [facility] accredited facility. Final us Drew Clayton Kip DO ECHO ORD Final Result * SCAN-CARDIAC STRIP (07/18/2025 7:30 AM CDT) us Scanner OTHER Final Result * (ABNORMAL) CBC WITH AUTO DIFFERENTIAL (07/17/2025 7:56 PM CDT) WHITE BLOOD COUNT 5.5 4.5 - 11.0 thou/cu mm 07/17/2025 8:06 PM CDT [facility] RED BLOOD COUNT 3.56(L) 4.00 - 5.20 mil/cu mm 07/17/2025 8:06 PM CDT [facility] HEMOGLOBIN 10.6(L) 12.0 - 16.0 g/dL 07/17/2025 8:06 PM CDT [facility] HEMATOCRIT 33.4 33.0 - 51.0 % 07/17/2025 8:06 PM CDT [facility] MCV 94 80 - 100 fL 07/17/2025 8:06 PM CDT [facility] MCH 29.8 26.0 - 34.0 pg 07/17/2025 8:06 PM CDT [facility] MCHC 31.7(L) 32.0 - 36.0 g/dL 07/17/2025 8:06 PM CDT [facility] RDW 15.2 11.5 - 15.5 % 07/17/2025 8:06 PM CDT [facility] PLATELET COUNT 130(L) 140 - 440 thou/cu mm 07/17/2025 8:06 PM CDT [facility] MPV 9.4 6.5 - 11.0 fL 07/17/2025 8:06 PM CDT [facility] NRBC 0.0 % 07/17/2025 8:06 PM CDT [facility] ABS NRBC 0.0 thou /cu mm 07/17/2025 8:06 PM CDT [facility] % NEUT 75.4 % 07/17/2025 8:06 PM CDT [facility] % LYMPH 11.0 % 07/17/2025 8:06 PM CDT [facility] % MONO 11.7 % 07/17/2025 8:06 PM CDT [facility] % EOS 1.3 % 07/17/2025 8:06 PM CDT [facility] % BASO 0.4 % 07/17/2025 8:06 PM CDT [facility] % IMMATURE GRAN (METAS,MYELOS,MA OS) 0.2 % 07/17/2025 8:06 PM CDT [facility] ABSOLUTE NEUTROPHILS 4.1 1.7 - 7.0 thou/cu mm 07/17/2025 8:06 PM CDT [facility] ABSOLUTE LYMPHOCYTES 0.6(L) 0.9 - 2.9 thou/cu mm 07/17/2025 8:06 PM CDT [facility] ABSOLUTE MONOCYTES 0.6 <0.9 thou/cu mm 07/17/2025 8:06 PM CDT [facility] ABSOLUTE EOSINOPHILS 0.1 <0.5 thou/cu mm 07/17/2025 8:06 PM CDT [facility] ABSOLUTE BASOPHILS 0.0 <0.3 thou/cu mm 07/17/2025 8:06 PM CDT [facility] ABSOLUTE IMMATURE GRANULOCYTES(MET ,MYELOS,PROS) 0.0 <0.3 thou/cu mm 07/17/2025 8:06 PM CDT [facility] Blood BLOOD SPECIMEN / Unknown Non-Lab Venipuncture / Unknown 07/17/2025 7:56 PM CDT 07/17/2025 8:02 PM CDT us Drew Parmar DO HEMATOLOGY Final Result [facility] [address] [place] [id number], [place] * LACTATE VENOUS (07/17/2025 7:56 PM CDT) LACTATE,VENOUS 0.7 0.5 - 2.0 mmol/L 07/17/2025 8:25 PM CDT [facility] Blood BLOOD SPECIMEN / Unknown Non-Lab Venipuncture / Unknown 07/17/2025 7:56 PM CDT 07/17/2025 8:02 PM CDT Luis Cornejo [facility] CHEMISTRY Final R esult [facility] [address] [place] [address], [place] * HEPARIN ANTI-XA (07/17/2025 7:56 PM CDT) HEPARIN ANTI-XA 1.82 See Comment U/mL 07/17/2025 8:18 PM CDT [facility] Blood BLOOD SPECIMEN / Unknown Non-Lab Venipuncture / Unknown 07/17/2025 7:56 PM CDT 07/17/2025 8:02 PM CDT Narrative [facility] - 07/17/2025 8:18 PM CDT INR results may be increased by Heparin levels exceeding 1.0 U/mL. UFH IV Infusion Therapeutic VTE: 0.3 - 0.7 U/mL UFH IV Infusion Therapeutic AF/Valve Bridgin.3 - 0.5 U/mL UFH IV Infusion Therapeutic ACS: 0.3 - 0.5 U/mL UFH IV Infusion Therapeutic High Bleeding Risk: 0.3 - 0.5 U/mL UFH IV Infusion Prophylactic: 0.11 - 0.29 U/mL UFH SubQ Therapeutic: 0.56 - 0.68 U/mL UFH SubQ Prophylactic: 0.15 - 0.25 U/mL Critical: >1.00 U/mL [facility] Final R esult [facility] [address] [place] [id number], [place] * (ABNORMAL) Protime-INR (07/17/2025 7:56 PM CDT) INR 1.3(H) <1.3 07/17/2025 8:15 PM CDT [facility] PROTIME 14.5(H) 10.6 - 12.4 sec 07/17/2025 8:15 PM CDT [facility] Blood BLOOD SPECIMEN / Unknown Non-Lab Venipuncture / Unknown 07/17/2025 7:56 PM CDT 07/17/2025 8:02 PM CDT Narrative [facility] - 07/17/2025 8:15 PM CDT Therapeutic Range 2.0-3.0 for most [...] seconds if the patient is on UFH. [facility] Final R esult Performing Organization Address City/[facility]/ZIP Co de Phone Number [facility] [address] [place] [phone], [place] * Fibrinogen, Quantitative (07/17/2025 7:56 PM CDT) FIBRINOGEN,ANGLE NTITATIVE 269 193 - 401 mg/dL 07/17/2025 8:15 PM CDT [facility] Blood BLOOD SPECIMEN / Unknown Non-Lab Venipuncture / Unknown 07/17/2025 7:56 PM CDT 07/17/2025 8:02 PM CDT [facility] Final R esult [facility] [address] [address], * (ABNORMAL) Hepatic Function Panel (07/17/2025 7:56 PM CDT) ALBUMIN 3.6(L) 4.0 - 4.9 g/dL 07/17/2025 8:25 PM CDT [facility] PROTEIN,TOTAL 6.1 6.0 - 8.0 g/dL 07/17/2025 8:25 PM CDT [facility] BILIRUBIN,TOTAL 0.3 0.0 - 1.2 mg/dL 07/17/2025 8:25 PM CDT [facility] BILIRUBIN,DIRECT 0.1 0.0 - 0.2 mg/dL 07/17/2025 8:25 PM CDT [facility] BILIRUBIN,INDIRE CT 0.2 0.2 - 0.8 mg/dL 07/17/2025 8:25 PM CDT [facility] ALK PHOSPHATASE 73 35 - 104 IU/L 07/17/2025 8:25 PM CDT [facility] ALT (SGPT) 27 10 - 35 IU/L 07/17/2025 8:25 PM CDT [facility] AST (SGOT) 30 10 - 35 IU/L 07/17/2025 8:25 PM CDT [facility] Blood BLOOD SPECIMEN / Unknown Non-Lab Venipuncture / Unknown 07/17/2025 7:56 PM CDT 07/17/2025 8:02 PM CDT Drew Pamrar DO CHEMISTRY Final Result [facility] [address] [place] [id number], * (ABNORMAL) Basic Metabolic Panel (07/17/2025 7:56 PM CDT) SODIUM 137 136 - 145 mmol/L 07/17/2025 8:25 PM CDT [facility] POTASSIUM 4.0 3.5 - 5.1 mmol/L 07/17/2025 8:25 PM CDT [facility] CHLORIDE 102 98 - 107 mmol/L 07/17/2025 8:25 PM CDT [facility] CO2,TOTAL 25 22 - 29 mmol/L 07/17/2025 8:25 PM CDT [facility] ANION GAP 10 5 - 18 07/17/2025 8:25 PM CDT [facility] GLUCOSE 111(H) 70 - 99 mg/dL 07/17/2025 8:25 PM CDT [facility] CALCIUM 9.3 8.8 - 10.4 mg/dL 07/17/2025 8:25 PM CDT [facility] Comment: Reference ranges for this test were updated on 07/27/2024 to reflect our healthy population more accurately. Reference range changes are not retroactively applied to results, but previous results using the same methodology can be interpreted in the context of the new reference range. BUN 28(H) 8 - 23 mg/dL 07/17/2025 8:25 PM CDT [facility] CREATININE 1.14(H) 0.50 - 0.90 mg/dL 07/17/2025 8:25 PM CDT [facility] BUN/CREAT RATIO 25(H) 10 - 20 8:25 PM CDT [facility] eGFR 50(L) >90 mL/min/1. 73m2 07/17/2025 8:25 PM CDT [facility] Comment:As of 2021, eG FR is calculated by the CKD-EPI creatinine equation without race adjustment. eGFR can be influenced by muscle mass, exercise, and diet. The reported eGFR is an estimation only and is only applicable if the renal function is stable. Blood BLOOD SPECIMEN / Unknown Non-Lab Venipuncture / Unknown 07/17/2025 7:56 PM CDT 07/17/2025 8:02 PM CDT Drew Parmar DO CHEMISTRY Final Result [facility] [address] [place] [address], [place] * US Venous Lower Extremity Bilateral Portable (07/17/2025 7:43 PM CDT) Anatomical Region Laterality Modality LEGS, LEG L, LEG R Ultrasound 07/17/2025 7:53 PM CDT Impressions 07/17/2025 7:53 PM CDT No evidence of deep vein thrombosis within either the left or right lower extremity. Dictated by Martha Devries MD @ 07/17/2025 7:53:21 PM (Electronically Signed) Narrative 07/17/2025 7:53 PM CDT For Patients: As a result of the Cures Act, medical imaging exams and procedure reports are released immediately into your electronic medical record. You may view this report before your referring provider. If you have questions, please contact your health care provider. INDICATION: PE follow-up TECHNIQUE: A compression venous ultrasound exam was performed of both lower extremities using allen scale imaging, color Doppler and spectral Doppler analysis. FINDINGS: Sonographic imaging of the lower extremities demonstrates normal compressibility and color Doppler venous blood flow within the common femoral, deep femoral, and proximal greater saphenous veins. Within the thighs the femoral veins are patent and compressible. At a lower level the popliteal and posterior tibial veins also show normal compressibility and color Doppler venous blood flow. Procedure Note Martha Devries MD - 07/17/2025 For Patients: As a result of the Cures Act, medical imagingexams and procedure reports are released immediately into your electronicmedical record. You may view this report before your referring provider.If you have questions, please contact your health care provider. INDICATION: PE follow-up TECHNIQUE: A compression venous ultrasound exam was performed of both lowerextremities using allen scale imaging, color Doppler and spectral Doppleranalysis. FINDINGS: Sonographic imaging of the lower extremities demonstrates normalcompressibility and color Doppler venous blood flow within the commonfemoral, deep femoral, and proximal greater saphenous veins. Within thethighs the femoral veins are patent and compressible. At a lower level thepopliteal and posterior tibial veins also show normal compressibility andcolor Doppler venous blood flow. IMPRESSION: No evidence of deep vein thrombosis within either the left or right lowerextremity. Dictated by Martha Devries MD @ 07/17/2025 7:53:21 PM (Electronically Signed) us Drew Clayton Kip DO US Final Result * SCAN-CT INTERPRETATION (07/17/2025 12:00 AM CDT) Only the most recent of4 resultswithin the time period is included. Anatomical Region Laterality Modality Other us Scanner OTHER Final Result * SCAN-LABORATORY REPORT (07/14/2025 12:00 AM CDT) Only the most recent of3 resultswithin the time period is included. us Scanner OTHER Final Result * SCAN-PET SCAN (06/30/2025 12:00 AM CDT) Anatomical Region Laterality Modality Other us Scanner OTHER Final Result * SCAN-PATHOLOGY REPORT (06/07/2025 12:00 AM CDT) Only the most recent of4 resultswithin the time period is included. us Scanner OTHER Final Result * SCAN-RADIOLOGY REPORT (04/27/2025 12:00 AM CDT) Anatomical Region Laterality Modality Other us Scanner OTHER Final Result * SCAN-ELECTROCARDIOGRAM EKG (04/27/2025 12:00 AM CDT) us Scanner OTHER Final Result * (ABNORMAL) LIPID PANEL W REFLEX MEASURED LDL (01/18/2025 2:53 PM CDT) CHOLESTEROL, TOTAL 275(H) <200 mg/dL [facility] HDL CHOLESTEROL 53 > OR = 50 mg/dL [facility] TRIGLYCERIDES 137 <150 mg/dL [facility] LDL-CHOLESTEROL 193(H) mg/dL (calc) [facility] Comment: LDL-C levels > or = [...] about testing for familial hypercholesterolemia, please call [facility] [employer] at [phone]. Deuce Phillips, et al. J National Lipid Association Recommendations for Patient-Centered Management of Dyslipidemia: Part 1 Journal of Clinical Lipidology 2015;9(2), 129-169. Shorty Giraldo. et al. (2014). Homozygous familial hypercholesterolaemia: new insights and guidance for clinicians to improve detection and clinical management. Heart Journal, 35(32), 4342-8435. Reference range: <100 Desirable range <100 mg/dL for primary prevention; <70 mg/dL for patients with CHD or diabetic patients with > or = 2 CHD risk factors. LDL-C is now calculated using the Greyson-Johnson calculation, which is a validated novel method providing better accuracy than the Friedewald equation in the estimation of LDL-C. Greyson SS et al. CAPRICE. 2013;310(19): 7230-1154 (http://education.Atavist/faq/IHJ692) CHOL/HDLC RATIO 5.2(H) <5.0 (calc) [facility] NON HDL CHOLESTEROL 222(H) <130 mg/dL (calc) [facility] Comment: Non-HDL level > or = 220 [...] Axel Palomo MD CHEMISTRY Final Re sult [facility] [address] [place] [address], [facility] [address] [place] [address] * ANTI HCV (06/11/2023 12:43 PM CDT) Pathologist [facility] HEPATITIS C ANTIBODY Non-Reacti ve Non-React dorian 06/12/2023 9:16 AM CDT [facility] Comment:Please note, per www [...] Andrade DO SEND OUTS Final Resu lt [facility] SENDOUT INTERNAL ZIP [address] [place] [address] * SDNA-FIT EXTERNAL (COLOGUARD) (06/18/2022 5:30 AM CDT) Pathologist [facility] NONINV COLON CA DNA+OCC BLD SCRN STL-IMP Negative Negative 06/22/2022 8:52 AM CDT [facility] (CLIA #:[id number]) Comment: NEGATIVE TEST RESULT. A negative Cologuard [...] (Timmy Judge al, N Engl J Med 2014;370(14):1884-3727) The normal value (reference range) for this assay is negative. COLOGUARD RE-SCREENING RECOMMENDATION: Periodic colorectal cancer screening is an important part of preventive healthcare for asymptomatic individuals at average risk for colorectal cancer. Following a negative Cologuard result, the [employer] and U.S. Multi-Society Task Force screening guidelines recommend a Cologuard re-screening interval of 3 years. References: [employer] Guideline for Colorectal Cancer Screening: https://www.cancer.org/cancer/zblso-zccqyx-ovnbdz/mcdjrgwrq-ospooggyx-wjaekkn/ac s-rec ommendations.html.; Fidel GEORGE, Joann العلي, Maribell McneilK, Colorectal Cancer Screening: Recommendations for Physicians and Patients from the U.S. Multi-Society Task Force on Colorectal Cancer Screening , Am J Gastroenterology 2017; 112:2292-0371. TEST DESCRIPTION: Composite algorithmic analysis of stool [...] screened with both Cologuard and colonoscopy. (Timmy Silva, N Engl J Med 2014;370(14):5294-8694.) Cologuard may produce a false negative or false positive result (no colorectal cancer or precancerous polyp present at colonoscopy follow up). A negative Cologuard test result does not guarantee the absence of CRC or advanced adenoma (pre-cancer). The current Cologuard screening interval is every 3 years. ([employer] and U.S. Multi-Society Task Force). Cologuard performance data in a 10,000 patient pivotal study using colonoscopy as the reference method can be accessed at the following location: www.[email or web address]/results. Additional description of the Cologuard test process, warnings and precautions can be found at [email or web address]. Stool specimen (specimen) (Rectum) 06/18/2022 5:30 AM CDT 06/19/2022 11:50 AM CDT Marivel Andrade DO URINE Final Resu lt [employer] (CLIA #:[id number]) [place] [address], from Last 3 Months or Most Recently Relevant to Health Maintenance Insurance BLUE CROSS EEK BLUE MR PB ONLY MEDICARE PART A HB ONLY MEDICARE PART B HB ONLY BLUE CROSS EEK BLUE HB ONLY BLUE CROSS EEK BLUE HB ONLY MEDICARE PPS Advance Directives Documents on File Type Date Recorded Patient Sort Worker Expl anation Healthcare Directive 06/28/2025 2:05 PM HC D 10.04.15 Healthcare Directive 04/17/2018 12:52 PM * DNR (Latest Code Status on File) Date Activated Date Inactivated Comments 07/20/2025 8:44 PM POLST availab le in residence reviewed and validated to match our conversation today * DNR Date Activated Date Inactivated Comments 07/17/2025 6:52 PM 07/19/2025 4:40 PM Question Answer Comments Code Status Discussion: Reviewed Preferences * DNR Date Activated Date Inactivated Comments 06/22/2025 4:51 PM 07/17/2025 6:39 PM New POLST c ompleted today. She will bring in to next appt. 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
[2025-07-22 12:06] LABS: Appearance Urine Cloudy (Clear)
--- NOTE | 2025-07-22 12:29 | ED.GENADULT ---
HPI - General Adult General Chief complaint: Urogenital Problems, Female Stated complaint: Shortness of breath Time Seen by Provider: 07/22/25 11:29 History of Present Illness HPI narrative: Patient is a 74-year-old woman with very complex past medical history including metastatic cervical cancer who presents with discoloration of her urine. Patient has bilateral nephrostomy tubes. She was seen recently for extensive clot including her legs and pelvis and pulmonary embolism. Patient was sent [facility] where she had a thrombectomy. She is currently on Eliquis for treatment. Her urine today does show some hematuria as well as signs of infection. She had urine collected this past weekend which was found to be Pseudomonas. During the time of my evaluation she got a call from her infectious disease doctor asking that she be placed on Bactrim after receiving a g Rocephin the ER. She is otherwise feeling fine. Related Data Home Medications ?Medication ?Instructions ?Recorded ?Confirmed coenzyme Q10 100 mg capsule (Co 100 mg PO DAILY 02/10/25 07/15/25 Q-10) omega-3 fatty acids-fish oil 360 1 cap PO DAILY 02/10/25 07/15/25 mg-1,200 mg capsule trazodone 50 mg tablet 50 mg PO HS 03/14/25 07/15/25 carvedilol 25 mg tablet 25 mg PO BID 04/28/25 07/15/25 polyethylene glycol 3350 17 gram 17 g PO DAILY 07/16/25 07/16/25 oral powder packet sennosides 8.6 mg-docusate sodium 1 tab-cap PO BID 07/16/25 07/16/25 50 mg tablet (Senna with Docusate Sodium) Previous Rx's ?Medication ?Instructions ?Recorded apixaban 5 mg tablet (Eliquis) See Rx Instructions .Route 07/16/25 .COMPLEX #74 tabs Allergies Allergy/AdvReac Type Severity Reaction Status Date / Time ciprofloxacin (From Cipro) AdvReac Intermediate Diarrhea, Verified 07/17/25 12:55 calf cramping Review of Systems Status of ROS: Reports: 10 or more systems reviewed and unremarkable except as noted in History and below [facility] Medical History Lung consolidation ?J18.1 - Lobar pneumonia, unspecified organism (ICD-10) Complicated urinary tract infection ?N39.0 - Urinary tract infection, site not specified (ICD-10) Ureteral obstruction ?N13.5 - Crossing vessel and stricture of ureter without hydronephrosis (ICD-10) Squamous cell carcinoma of cervix ?C53.9 - Malignant neoplasm of cervix uteri, unspecified (ICD-10) Hyponatremia ?E87.1 - Hypo-osmolality and hyponatremia (ICD-10) Pure hypercholesterolemia ?E78.00 - Pure hypercholesterolemia, unspecified (ICD-10) Essential hypertension ?I10 - Essential (primary) hypertension (ICD-10) Surgical History H/O insertion of nephrostomy tube ?Z98.890 - Other specified postprocedural states (ICD-10) Social History What is your current living situation?: I presently have a place to live Problems where you live: no known problems Problems where you live details: N/A In the past 12 months, utilities in danger of being shut off: no In past 12 months, lack of transportation kept you from medical appts, meetings, work, or getting things needed for daily living: no In the past 12 mos, have been you worried that your food would run out before you had money to buy more?: never true In the past 12 mos, the food you bought just didn't last and you didn't have money to buy more?: never true Highest level of school completed/degree received: Bachelor's degree Smoking Status: Never smoker Second hand tobacco smoke exposure: No How often do you have a drink containing alcohol: never AUDIT-C Alcohol total score: 0 Non-prescribed substance use: denies use Caffeine: Yes (1c/day) How often does anyone, including family, friends and others, physically hurt you: never How often does anyone, including family, friends and others, insult or talk down to you: never How often does anyone, including family, friends and others, threaten you with harm: never How often does anyone, including family, friends and others, scream or curse at you: never Are you using contraception or practicing any form of control: No service: No Exam Narrative: Exam Narrative: EXAM GENERAL: Patient appears comfortable and well. EYES: No scleral icterus. LYMPH: No supraclavicular or cervical lymphadenopathy. SKIN: Visible skin seen during exam normal or with benign process only. EXT: No dependent lower extremity pedal edema. HEART: Regular rate and rhythm with no murmurs, rubs, or gallops. LUNGS: Clear to auscultation bilaterally with no crackles or wheezes. ABD: Soft, non tender, non distended. PSYCH: Good eye contact, speech is not pressured. Const: Vital Signs, click to edit/add: Vital Signs - 24 hr 07/22/25 11:24 Temperature 97.2 F L Pulse Rate [Right Pulse Oximeter] 90 Respiratory Rate 20 Blood Pressure [Ri ght Upper Arm] 122/83 Pulse Oximetry 93 Oxygen Delivery Me thod Room Air Course Vital Signs Vital signs: Initial Vital Signs Temperature 97.2 F L 07/22/25 11:24 Temperature Source Temporal Artery Scan 07/22/25 11:24 Pulse Rate 90 07/22/25 11:24 Respiratory Rate 20 07/22/25 11:24 Blood Pressure 122/83 07/22/25 11:24 Blood Pressure Mean 96 07/22/25 11:24 Blood Pressure Position Sitting 07/22/25 11:24 Pulse Oximetry 93 07/22/25 11:24 Oxygen Delivery Method Room Air 07/22/25 11:24 Vital Signs Temperature 97.2 F L 07/22/25 11:24 Pulse Rate 90 07/22/25 11:24 Respiratory Rate 20 07/22/25 11:24 Blood Pressure 122/83 07/22/25 11:24 Pulse Oximetry 93 07/22/25 11:24 Oxygen Delivery Method Room Air 07/22/25 11:24 Temperature 97.2 F L 07/22/25 11:24 Pulse Rate 90 07/22/25 11:24 Respiratory Rate 20 07/22/25 11:24 Blood Pressure 122/83 07/22/25 11:24 Pulse Oximetry 93 07/22/25 11:24 Oxygen Delivery Method Room Air 07/22/25 11:24 Medical Decision Making MDM Narrative Medical decision making narrative: Patient is a complex patient who recently had a thrombectomy and is on anticoagulation. She has urostomy tubes in place. She has signs of hematuria and UTI and ID has asked us to intervene with the Rocephin plus Bactrim. We made those arrangements for her. She shows no signs of sepsis syndrome a bacteremia. Will discharge home with outpatient follow-up. Lab Data Labs: Lab Results 07/22/25 Range/Units 11:33 Urine Color Red A (Yellow) Urine Appearance Cloudy A (Clear) Urine pH 6.0 (5.0-8.5) Ur Specific [place] 1.020 (1.000-1.030) Urine Protein 3+ A (Negative) Urine Glucose (UA) Negative (Negative) Urine Ketones Trace A (Negative) Urine Blood 3+ A (Negative) Urine Nitrite Positive A (Negative) Urine Bilirubin 1+ A (Negative) Urine Urobilinogen 1.0 (0.2-1.0) Ur Leukocyte Esterase Trace A (Negative) Urine RBC >100 A (0-2) Urine WBC 2-5 (0-5) Ur Squamous Epith Cells Few (None-Few) Urine Bacteria None (None) Discharge Plan Discharge Clinical Impression: Acute UTI Patient Disposition: Home, Self-Care Condition: Stable Instructions: Urinary Tract Infection in Women (ED) Additional Instructions: Continue current care Bactrim as directed. Follow-up with your doctor as needed. Activity Level: No Restrictions Discharge Diet: Regular Prescriptions: No Action coenzyme Q10 [Co Q-10] 100 mg capsule 100 mg PO DAILY omega-3 fatty acids-fish oil 360-1,200 mg capsule 1 cap PO DAILY trazodone 50 mg tablet 50 mg PO HS carvedilol 25 mg tablet 25 mg PO BID sennosides-docusate sodium [Senna with Docusate Sodium] 8.6-50 mg tablet 1 tab-cap PO BID polyethylene glycol 3350 17 gram powder in packet 17 g PO DAILY Eliquis 5 mg tablet See Rx Instructions .ROUTE .COMPLEX Qty: 74 0RF Rx Instructions: 10 mg po twice a day for 7 days, then 5 mg po twice a day. Follow Up/Referrals: Axel Palomo MD [Primary Care Provider, Family Practice] Stand Alone Forms: [facility] Info Instructions
[2025-07-22] MEDS: cefTRIAXone 1 GM in 0.9 % SODIUM CHLORIDE Mini-bag 100 ML IVPB (12:43)
[2025-07-22] MEDS: HEPARIN 500 UNIT/5 ML SYRINGE IVF (13:15)
== END 2025-07-22 13:20 | disposition home or self-care (01) ==
PROVIDERS: Emergency Provider Internal Medicine; PCP Family Medicine
DX: N39.0 Urinary tract infection, site not specified (principal)
CPT/HCPCS: 81001; 81003; 87086; 96365; 96375; 99283; 99284; J0696; J1642

== ENCOUNTER 2025-07-23 18:29 | Emergency (ER) | payer MEDICARE, BC, SELFPAY ==
--- OUTSIDE RECORDS SUMMARY | 2025-01-20 06:00 | XMS_ITS | Continuity of Care Document ---
Author Organization [facility] Address [address] [address] [place] [address] Phone Care Team Providers Care Scale Shooter Name Role Phone Lizet Steinberg Unavailable Unavailabl e Procedures Procedure Date Subsqt Hosp-da E&m Minr Compl 5 Init Hosp-da E&m Mod Severity Advance Directives Directive Yes / No Effective Date File Name No Information Encounters Encounter Description Practice Location Reason(s) For Visit Diagnoses Date Provider Providers Copied on Encounter [facility], [address] [address], [place], [place], [address], [place] [phone] [facility] No Information 5 Greyson Hinds . [address] [place] [address], [id number] , [place]. [phone] Subsqt Hosp-da E&m Minr Compl [facility], [address] [address], [place], [place], [address], [phone] [facility] No Information 5 Greyson Hinds . [address] [facility], [address], [id number] , [place]. [phone] Referring Provider: Lizet Metz, [address] [place] [address], [address] . tel:[phone] Init Hosp-da E&m Mod Severity [facility], [address] [address], [place], [place], [address], tel:[phone] [facility] No Information 5 Enzo Thomas. [address] [facility], [address], [place], [place], [address] , [place]. [phone] Referring Provider: Axel Palomo MD R, [address], [place], [address]. tel:[phone] Family History Family Member Type Diagnosis Age At Onset No Information Payers Payer name Insurance type Covered republican ID Authoriza tion(s) Blue Cross [place] Blue BL [id number] Social History Type Description Quantity Date Captured [...]
--- OUTSIDE RECORDS SUMMARY | 2025-01-20 06:00 | XMS_ITS | Continuity of Care Document ---
Author Organization [facility] Address [address] [address] [place] [address] Phone Care Team Providers Care Field Map Editor Name Role Phone Lizet Steinberg Unavailable Unavailabl e Procedures Procedure Date Subsqt Hosp-da E&m Minr Compl 5 Init Hosp-da E&m Mod Severity Advance Directives Directive Yes / No Effective Date File Name No Information Encounters Encounter Description Practice Location Reason(s) For Visit Diagnoses Date Provider Providers Copied on Encounter [facility], [address] [address], [place], [place], [address], [place] [phone] [facility] No Information 5 Greyson Hinds . [address] [place] [address], [id number] , [place]. [phone] Subsqt Hosp-da E&m Minr Compl [facility], [address] [address], [place], [place], [address], [phone] [facility] No Information 5 Greyson Hinds . [address] [facility], [address], [id number] , [place]. [phone] Referring Provider: Lizet Metz, [address] [place] [address], [address] . tel:[phone] Init Hosp-da E&m Mod Severity [facility], [address] [address], [place], [place], [address], tel:[phone] [facility] No Information 5 Enzo Thomas. [address] [facility], [address], [place], [place], [address] , [place]. [phone] Referring Provider: Axel Palomo MD R, [address], [place], [address]. tel:[phone] Family History Family Member Type Diagnosis Age At Onset No Information Payers Payer name Insurance type Covered democrat ID Authoriza tion(s) Blue Cross [place] Blue BL [id number] Social History Type Description Quantity Date Captured [...]
--- OUTSIDE RECORDS SUMMARY | 2025-06-23 14:00 | XMS_ITS | Encounter Summary ---
Author Organization [facility] Address [address] [place] [address] Phone Care Team Providers Care Hha Name Role Phone Votel, Axel PALMA Primary Care Provider [phone] Reason for Referral * Consultation (Routine) - Pending Review Specialty Diagnoses / Procedures Referred By Pastora piedra Referred To Contact Diagnoses History of acute kidney injury Urinary tract infection, not otherwise specified Hydroureteronephrosis Hoang Galvez MD [address] [place] [address] Phone: tel: fax: Referral ID Status Reason Start Date Expiration Date Visits Requested Visits Authorized [id number] Pending Review Specialty Services Required 06/23/2025 06/23/2026 1 1 Reason for Visit * Reason Comments CKD New Patient * Nephrology Services (Routine) - Closed Specialty Diagnoses / Procedures Referred By Pastora piedra Referred To Contact Nephrology Diagnoses Other specified postprocedural state Votel, MD Axel [address] [place] [address] Phone: tel: fax: [facility] [address] [place] [address] Phone: tel: fax: Referral ID Status Reason Start Date Expiration Date Visits Re quested Visits Authorized [id number] Closed 05/18/2025 05/18/2026 1 1 Encounter Details Date Type Department Care Team (Late st Contact Info) Description 06/23/2025 2:00 PM CDT Office Visit [facility] [place] [address] [place] [address] Hoang Galvez MD [address] [place] [address] History of acute kidney injury [...] follow up needed. At [facility] [place], our goal is to work with you [...] all of us at [facility] documented in this encounter Progress Notes * Hoang Galvez MD - 06/23/2025 2:00 PM CDT Images from the original note were not included. Patient: Alyssa Garcia Date of : 1950 Chart: [id number] PCP: Axel Palomo MD ([facility]) Referring Provider: Axel Palomo MD Date of [...] to 7.2 so she was transferred to [place]. CT AP at that time showed new [...] to be performed. Concern for underlying malignancy, telemarketing sales representative/onc consulted. Pelvic MRI demonstrated likely cervical primary with invasion of the posterior bladder and anterior mesorectal fascia. S/p exam under anesthesia and biopsy 01/13. Plan to follow up with telemarketing sales representative/onc for outpatient PET scan and given renal function had improved to follow with PCP. Also HCTZ was stopped, metoprolol changed to Coreg. 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 She's been treated with chemo, radiation and immunotherapy. She notes since discharge she's having trouble managing the perc neph tubes. She's contacted [facility] several times reportedly but no help and so she finally called [facility] and they are helpingarrange the PNT [...] 2/2 central obstruction. I saw her at [place]. PNTs were inserted 01/07/25 and creatinine downtrended [...] cervical cancer. Since discharge she's talked with [facility] who are now managing these ordersand [...] with chemo, radiation and immunotherapy. Management per telemarketing sales representative- onc and oncology. Return if symptoms worsen or fail to improve. 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
--- OUTSIDE RECORDS SUMMARY | 2025-07-06 13:52 | XMS_ITS | Encounter Summary ---
Author Organization [facility] Address [address] [place] [address] Care Team Providers Care Operator Electronic Warfare Name Role Phone Unavailable Primary Care Provider Unavailabl e Reason for Referral * Outpatient (Routine) - Authorized Specialty Diagnoses / Procedures Referred By Contac t Referred To Contact Radiation Oncology Sonya Wade P.A.-C., M.STaylor [address] [place] [address] Phone: tel: fax: Thelma Streeter M.D. [address] [place] [address] Phone: tel: fax: Referral ID Status Reason Start Date Expiration Date V isits Requested Visits Authorized [id number] Authorized 07/06/2025 01/05/2027 1 1 Scheduling Instructions PET-CT prior at [facility]; please get images and report prior to visit * Outpatient (Routine) - Closed Specialty Diagnoses / Procedures Referred By Contac t Referred To Contact Radiation Oncology Thelma Streeter M.D. [address] [place] [address] Phone: tel: fax: [facility] Region Referral ID Status Reason Start Date Expiration Date Visits Re quested Visits Authorized [id number] Closed 04/28/2025 10/28/2026 1 1 Scheduling Instructions After PET/CT. Please write GYNE EXAM ROOM in notes, thanks! Reason for Visit * Outpatient (Routine) - Closed Specialty Diagnoses / Procedures Referred By Pastora t Referred To Contact Radiation Oncology Thelma Streeter M.D. [address] [place] [address] Phone: tel: fax: [facility] Referral ID Status Reason Start Date Expiration Date Visits Re quested Visits Authorized [id number] Closed 04/28/2025 10/28/2026 1 1 Encounter Details Date Type Department Care Team (Latest Contact Info) Description 07/06/2025 1:52 PM CDT - 07/06/2025 9:03 PM CDT Hospital Encounter Department of Radiation Oncology in [place], [place] [address] [place] [phone] Thelma Streeter M.D. [address] [place] [address] Malignant Neoplasm Of Cervix (HCC) (Primary Dx) Social History Tobacco Use Types Packs/Day Years Used Date Smoking Tobacco: Never Smokeless Tobacco: Never Alcohol Use Standard Drinks/Week Comments Not Currently 0 (1 standard drink = 0.6 oz pure alcohol) Quit drinkinking in August after pelvic pain started. 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 She was admitted to [facility] and eventually discharged on January 14. While [...] disease. 02/02/[address] Sarah Coot, [place] [facility]. Discussed treatment options including chemoradiotherapy with [...] under the care of Dr. Almanzar. Dr. Streeter recommends obtaining a baseline CT scan of the abdomen with IV contrast at this time. Dr. Streeter then recommends obtaining a repeat PET-CT scan in 3 months. The patient would like the imaging performed at [facility] and orders will be placed. Of note, the patient confirmed that she does not have an allergy to Iohexol and she states that she can receive IV contrast for CT scans. The patient is scheduled for bilateral nephrostomy tube exchange and a follow-up visit with Jessie Borden C.N.P. in Urology in [place] on August 05, 2025. We reviewed Jessie's [...] Wade P.A.-C., M.S. 07/06/2025 3:49 PM CDT [facility] [address] [place] [address] Cosigned by Thelma Streeter M.D. at 07/06/2025 [...] exam was performed with her sister as package line relief operator. Normal external genitalia. Her vagina appeared normal,but [...] Care Team (Late st Contact Info) Description 08/05/2025 8:45 AM ACADEMIC COORDINATOR Office Visit Department of Urology in [place], [place] [address] [place] [address] Jessie Borden APRN, C.N.P., D.N.P. [address] [place] [phone] 08/05/2025 11:00 AM ACADEMIC COORDINATOR Appointment Department of Radiology, [facility], in [place], [place] [address] [place] [phone] Jessie Borden APRN, Sona.N.Leanna., D.N.P. [address] [place] [phone] 10/12/2025 11:00 AM ACADEMIC COORDINATOR Appointment Department of Radiation Oncology in [place], [place] [address] [place] [phone] Thelma Streeter M.D. [address] [place] [phone] Scheduled Referrals Name Type Priority Associated Diagnoses Order Schedule Radiation Oncology office visit (clinic) Outpatient Referral Routine Once for 1 Occurrences starting 07/06/2025 until 07/06/2025 Radiation Oncology office visit (clinic) Outpatient Referral Routine Expected: 10/06/2025, Expires: 10/06/2026 documented as of this encounter Visit Diagnoses Diagnosis Malignant Neoplasm Of Cervix (HCC)- Primary documented in this encounter
[2025-07-23] VITALS (17 sets, daily range): BP systolic 98–116; BP diastolic 70–80; PULSE 87–107; RESP 10–30; TEMP 36.2–37; O2SAT 77–96; BMI 24.6
--- OUTSIDE RECORDS SUMMARY | 2025-07-23 18:30 | XMS_ITS | Clinical Summary ---
[facility] Address [address], [place] [address] Care Team Providers Care Nursing Informatics Clinical Analyst Name Role Phone Jorge Luis Cortez DO Primary Care Provider [phone] Source Comments You are receiving this document as you are listed as the primary care provider,follow-up provider, or the patient has been referred to you for consultation.This is in compliance with the Medicare and[facility] Hospital[facility] EHR Incentive Program,which states Providers who transition their patient to another setting of careor provider of care or refers their patient to another provider of care shouldprovide summary care record for each transition of care or referral. [employer] Allergies No known active allergies Medications hydroCHLOROthia [...] topic Insurance MEDICARE MANAGED CARE BCBS [place] Care Teams Nursing Informatics Clinical Analyst Relationship Specialty Start Date End Date Jorge Luis Cortez DO [address] [place] [address] PCP - General Family Practice 12/22/19
--- OUTSIDE RECORDS SUMMARY | 2025-07-23 18:30 | XMS_ITS | Encounter Summary ---
Author Organization [facility] Address [address] [place] [address] Care Team Providers Care Hydraulic Engineer Name Role Phone Unavailable Primary Care Provider Unavailabl e Encounter Details Date Type Department Care Team (Late st Contact Info) Description 07/19/2025 Clinical Communication Department of Radiation Oncology in [place], [place] [address] [place] [address] Thelma Streeter M.D. [address] [place] [address] Social History Tobacco Use Types Packs/Day Years Used Date Smoking Tobacco: Never Smokeless Tobacco: Never Alcohol Use Standard Drinks/Week Comments Not Currently 0 (1 standard drink = 0.6 oz pure alcohol) Quit drinkinking in August after pelvic pain started. [facility] Utilities Answer Date Recorded In the past 12 months has [facility] [email or web address], gas, oil, or water [email or web address] threatened to shut off services in your [...] your living situation today? [facility] 03/21/2025 Comments No Sex and Gender Information Value Date Recorded Sex Assigned at Female 03/05/2025 6:51 AM CDT Legal Sex Female 6:12 PM JUNK REMOVAL SPECIALIST Gender Identity Female 03/05/2025 6:51 AM [...] st Contact Info) Description 08/05/2025 8:45 AM JUNK REMOVAL SPECIALIST Office Visit Department of Urology in [place], [place] [address] [place] [address] Jessie Borden APRN, C.N.P., D.N.P. [address] [place] [address] 08/05/2025 11:00 AM JUNK REMOVAL SPECIALIST Appointment Department of Radiology, [facility], in [place], [place] [address] [place] [address] Jessie Borden APRN, C.N.P., D.N.P. [address] [place] [address] 10/12/2025 11:00 AM JUNK REMOVAL SPECIALIST Appointment Department of Radiation Oncology in [place], [place] [address] [place] [address] Thelma Streeter M.D. [address] [place] [phone] documented as of this encounter Visit Diagnoses Not on filedocumented in this encounter
--- OUTSIDE RECORDS SUMMARY | 2025-07-23 18:31 | XMS_ITS | Encounter Summary ---
Author Organization [facility] Address [address] [place] [address] Care Team Providers Care Printed Circuit Boards Laminator Name Role Phone Unavailable Primary Care Provider Unavailabl e Encounter Details Date Type Department Care Team (Late st Contact Info) Description 07/15/2025 Clinical Communication Department of Radiation Oncology in [place], [place] [address] [place] [address] Thelma Streeter M.D. [address] [place] [address] Social History Tobacco Use Types Packs/Day Years Used Date Smoking Tobacco: Never Smokeless Tobacco: Never Alcohol Use Standard Drinks/Week Comments Not Currently 0 (1 standard drink = 0.6 oz pure alcohol) Quit drinkinking in August after pelvic pain started. [facility] Utilities Answer Date Recorded In the past 12 months has [facility] [employer], gas, oil, or water [employer] threatened to shut off services in your [...] living situation today? I have a [facility] place to live 03/21/2025 Comments No Sex and Gender Information Value Date Recorded Sex Assigned at Female 03/05/2025 6:51 AM CDT Legal Sex Female 6:12 PM CLERK GUIDE Gender Identity Female 03/05/2025 6:51 AM CDT [...] care. I did recommend reporting to either [facility] or [facility] Emergency room. She was persistent on wanting to attend [facility]. I did inform her that they would [...] 07/15/2025 10:53 AM CDT Gris VELIZ at [facility] called regarding patients CT scan from yesterday. The radiologist contacted herabout the results. 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 Gris would like to discuss with our team here as she is considering sending her to [facility]. She would like a call back to discuss. [phone] ask for Gris. documented in this encounter Plan of Treatment Upcoming Encounters Date Type Department Care Team (Late st Contact Info) Description 08/05/2025 8:45 AM CLERK GUIDE Office Visit Department of Urology in [place], [place] [address] [place] [phone] Jessie Borden APRN, C.N.P., D.N.P. [address] [place] [phone] 08/05/2025 11:00 AM CLERK GUIDE Appointment Department of Radiology, [facility], in [place], [place] [address] [place] [phone] Jessie Borden APRN, C.N.P., D.N.P. [address] [place] [phone] 10/12/2025 11:00 AM CLERK GUIDE Appointment Department of Radiation Oncology in [place], [place] [address] [place] [address] Thelma Streeter M.D. [address] [place] [phone] documented as of this encounter Visit Diagnoses Not on filedocumented in this encounter
--- OUTSIDE RECORDS SUMMARY | 2025-07-23 18:31 | XMS_ITS | CCD ---
Author Name Interface, G7Yarrfhs lity Address [address] [address] Organization [facility] Address [address] [address] Care Team Providers [facility] Name Role Phone Chica PALMA, Sarah Gallegos [...] Ordered By Specimen Source Lab Address 04/26 [facility] other lab See attache [...] Order PET/CT scan, sku ll base/mid thigh [place] Ordered 02/02/2025 Physician Order RTC patient teaching RN Patient Teaching Visit Ordered 02/02/2025 Physician Order Radiation therap y consult [facility] Ordered 02/02/2025 Physician Order Immunotherapy Monitoring [...] requested Me dical Oncology for chemo/radiation at [facility]. Weekly Cisplatin and Q21 day P[place] with Radiation at [facility] Ordered 02/15/2025 Physician Order Port placement [...] clinically indicated Ordered 02/16/2025 Physician Order RTC TRAINING MGR/PA and infusion to start with RT - [...] style=text-align:center>

<span class=clinicalNoteMacroWysiwyg id=[id number]" macroname=PracticeLetterhead spantype=macro title=#PracticeLetterhead><img src=data:image/png;base64,aXWZYr7UVexUNGMXIChIErIIABTYXIPiXEPIDFR7Y0aUL BRSOSZLA4ZIfi1a4WNMWAWmMJ4EXLBjovi2UMFLFWJXyOrBbqMKDlETNM9KEFGuFoxUEFnHJHBAUFfq6 L2NmEU3EdjLKuqxryY2L bMoOxBEDPusGofARgyUADVSYZGsHmBAIBxkZqtPbDMbQPSF5BldXl4EBbxbX+u8/Ccd2pvn5g21U76Ye yltasrevOuPKxPY9qdTa KUPOUkGIizShbPeA2QjFSE1xJ/oCtuRRFaQpOOwKRFqbXOPLYRsYOUINQRFlyDCx7DEtdOCx/gECxCGY NfRP9fOt8XkqEk5Vy8jz UwBmUxedwHVrSZip60AGmvnTFQLb0afSUDAlXxraIIqSa2mK7hRoPiqSY7dmVIJyub17lspobKG8vaZU Um8b2DSr7olhWx38uIGC hIoBiAs0S9sAzzbEvZLPWx5OLnH5pfazLh4cAoeh0aJMfSNZUmSuYtVwuzHQPaAvnD2dR3xut46lDQfZ /OgXNltj9ERx9qeq7Fg6 6oQw1x/sABhrlu+/mydym5483V/aFCGmPliEodSc3eSKnWymsqhERRMNUKG+AdQYHAQBQQQrV7+EU0e+ jStWAzA60ZNuqluSe0Bn 24ZMuR5Pzegu7+sNBFG8y+xRx8a//7mIdmMMjQJZzSZt5+h5Z7DQlxMh21g+1WrQTrPuuKSlT82qWpji Tx++/btVL9+felnmOsJF iDMdUdGRgYFBQVJ/vZBgDqEtwuUDeuREzQNNGhVQ0C3Ll0io1/HM5GWyh8uEo+VsldojCYF2vnQZLyuI BJmD4f6islqoyQsCT8s5 Sswh67dN4TQzn1K663iPyUT3URUWGadAEBwcnXqUl7muFu3wP90OJKgLbiZGW+2fl86pUvOhUbpmB4hr IEw/wpWrFhB8+fPp/Xr1 5RoOkEEwRyEFu86dLDobflkoLDV80VoLWaW38Q/hftEcct3VfDPZIJYxGWDnW1xRlZfSZLMrMWgYv4zq 13edUsbGyTtd4WlOOE28 UYflBCIE5yyhw5ZWcLYwwXhieBXdgCDPhGr4Yj83ks8RQhPLsyFlQtlvMzNU1i0/XWpWHcr3vJdOq+6s 38suufcLxGgiWJnIlF8J mZcSsHiJmGl77vKzWTUVlBJx4nzpH1VxvR4Fh8ml4h+god2YUMPVAIBuHIROQceMjBj13//vhQmDFNQ4 B2sejZDkWBbACDZO1JaV 0rNqG993uswnvEeZTa77amxCgD5N49yXt3v4u6zzn+euWiEO7buoidVv651Hq/NdyegRr0osXISrJaB0 uWEQE3NDNC5XCa7Fsv9O pIioqLpu4+N8S47PqU2RV+gD2e+PnCEl9eVGX4GOp7J14Z8zF0hX8N1y++W1+uCAFhPQo32BZ5okQGal khMrAXTSNNEylGtkay2u TnNEev2grZ9vRiHBCUU2y7+f0Im56vMB9RrJksEx3553g/IMNadTzO+SSJCivVd997TBvXAo72ISuGSJ tnSt2/h7rnnSi7ImEHYv 7GziOyeKJuslfQrso74rg/ORCiApGLBpeZNhvBwdD2yJlL9DIw80DDt4fNfS5ENFayLRfCBRxlni66/M NAY/mC2X7pEAQdNYerFR +cafn7+uw2FBoCArcNIKYB7QdAwlZZ6a32dc8YyCdZTJ474Y2RuiHXDHKHnsSA1tXXMVGfy8NeIllPKi 0TyXJ7DId19WccHoiCXS 6W/xf78lGmrPbc38TxrqNDI1glQa1o/jSxn8RTXJsuTu2FR5hvWU4pMph2hgOteYSQRp6ITBsSsfFyf8 knyedbM3Fi4chKumy79Y w4uOTPOEGw8M/y1wN65hXFFXWmVuVcxDeeMA2x++imm8yrmhgTeF4ThmJkNTRtZPFMsJSQlmSVYmoTXt QLWTZgIiMUPf//9dxXrG gy2//lnt6B3D0ZWqnxnJOu2kvjX5uMVlY7jkgkDS1t4edHNMTn+/46UwZjTFl0hxPwVZYgRinO75GZOT jR8rAvap94+dI9YB4TRl oJaGBnJPh9ARH3swcnfslj4aFlSmpUQdUvbrgsktc0IPL+Ex+QXiX7/g+rU0RDbBWeByJbO1WCNX3isM mvsMtmUlfllRx0x8auxx Jm70PFEd8/L4SGsG7uTUEeYnuCax+rD8AJW8AeWvfVT2EwMjHHs06rDzYjnM509cSh6k35jStXoTCJmn V5cCoTIe2IOsZAC7EcaA eUqVdQexwwdOlRuddeZO/EVeaDiyu8GcnM3YzPvTULFi6+iTHSQtlgWwRgP9OqaawRMinjwGgRRbXD7/ PhxGd+aAkKej8tpIzIx2 dygrn9UsYiRzLBBIzzoby+VX60zE9HULHQvYqdojDzsmioYiF0FWHomBlCZuoztEGBfCKOaIVwcrfp1b NG/m60CsufMMr9nkEl+c bH9qSqWDaCpSXO924tFVmBQWVb2CKdBxaZVr+2yhypUauZHhw5UiFeosU/001LU4tl8gPmAMZkcTxBCS MA2HNfDRL5ZQDiYBz9KL eRJTgg2j+zzP9Qg564yB3326coOQ6R8l+9y2c0Gq1mqQnqx/gaMsAeWEMiW2Ui+1XrQWl30itOIGejO2 wERGTpyqWkZlJCYRCdPn sm3Ryrpf6fHWGKi0rQl2gAbrUJ99mzkW4j7ienFIRKpxZKW0c3YXzd7l52CHGisGF7YJmEEfie337mGo qWSJ9XwB6aE4JTwtwZbE WriwAA/ChCl+MDhwzTsiScoICCAbqhRnSa8+BWn33oGmlhdk1/IhIURQMGuyJ1spGrs3SfAIcM1sGxqG 6CtQQeUs4HDHoxZVlZkj OGwtTr/oAAKDQ+j9wCQAKnQyOw8B1WpRurBqDUTJ2pjdFms/hQfpBiT3y1+mEEvUcs79lso97k4qEafs ZKdO77ph4zHtHiXbLyQC Dj+kyizCvPuBjlBOhGAHAkBQCApAYWNSLWj3Gw4f7otcMnk8ylb5tAp0i0TYYzMdVhN2cu1O8FYUXB3I dp1p9H7sRrjyqx56xTDe bZSWwIyJ4jGhwlHYrBtoik5faV2PEli0BdS21tmWE3/c5fRf+FGZgwjLWwcbggxR5dvDyxWLQN6qKa1n mGY/E1KONWQwSx2PPinf qJlH+eokDvffoex/skbOOfJkSJmJ6LtdkAheRrYkaTon9a4U1KPCMrDVB0UhngEHVwbRsBzQ7+BzLtpo +eyNGHZhPavHxpo6e42s bx72090lg6kpb+MkqVKSz/WGAP4MyYEiVOt4NRCqznE4jqnJrZQIW2Y5BF/ekzgYqYgGMKfy0UKt7oUE MR0sYWP02tYQ8xmwrI1j nMLbVy/gZIyDWm+etaQUTAMeXKT04HczUS3sdOyQtAylKVxjtT5+IWDOoQZb0HuvLNEg/wpUByTkJZJE 1qShwlGP4uQXCyVzMj69 +9XIYbJ//THNVAidZlHzRVNprI0pWmBMstRZBh3ogSupF/XwBMieFdOw8sIUsr6JJD7gW8dZ5pEnDEm0 BNAg6VPR+HQUMc8mFJe6 sBbT3ZIv/0957q0x3h2fvXSiE1YUXdYQ6YT+w+Iz7H1CCDM7VCin42UE61sKLYyDNR4+w+M5LGPFXgpV NmCYOGFbRaXtzqb8wlYM CGeUbgJhoXrSWDkmWt8t51kYXa8SYsbaIKXxgBWOByfgtbNaD3vBpHbSUYly9v9QK8L4BcW9zV2eCt6s IRz9FhpvEf+nurUrUcLl mBIWqew1F/idyI4Lf0Y8icmslf2DUgAEvOxFOMw4BESA9eDwC/XPYrgGeMUhzLA5Sv7z8kfe7Jc3I1da zCTOwKQS1uF3+QWVkxYX 9i6LKrLzmr/BjNW87rkidmDs2bO+UtCH7ZbVNRKZvK/KBy50NEdrGHJzqK7Av53WR8WIP384hsEY5tQ9 GYpKK9oaImud80OcxBu+ kTO0TBCUZrN5jFIH3cf/SrVX4ZWjnNiHk+eTQ89+LA6R42oGBwulMz40Wddzt98AQQZGgKRih0UYCcZm vVSBckGvXIoLoaXTh9Dk 4WGhdGvew/Nle6yGG576ALwBNtfNHhrqaUKnUivMTj3ZPWwPb8Kv9sGCcbf+9jl2saI1H89A2RjFiIiV 9QhgVtgssKH1ByQ5+bNk 36GyY/hGYbNI2RNxlytkLG41x/6ZbrvqdEUd+7kEGkRbTncWPbJgzEu1VEmvHe/lk4nZX/lUDU6gM4jE 2j6QdPJ6h4zl2NWInMsA SjiY8FzYSJiYBWrsGemId4mIPhq3GtrBcJJUTqN27ZLyzMazt43t281w9d/rvrB0XTZTxY2QtGEG8bzG caAk5dYdPqWupX5wSFqT 1t3MJdOZk+iv7VRs/FNNHXtFrp0+hz6fGT/RABnBTpmiGOdU38WTen3GZYWFKNAmn5+gQEUEhIgKuYwU AQnOBmdUI3PGlVzLejBO v43lnR/yy0m2UGZMFuNlb2N9FR0/CZBKs5VsDnADJZ8NBTmR94X5MdfkXsNUuAn+z8p/pPDndP5FT0/K xChIZ3g25lM/b0QraHlu uRHuAuLyXcMHDhQ+UaAr1mWUn24RTyGCGVgSByulwtul5Pkd+X+rfIdvhxOnNIVUNL6cEs33diDMvpRN 2dr07EhCqBn7/kPg+U4d 9F9vOgI+LhLdM/hu4GzyFnVj8IXTu2/1DC5r+0ElpmxAEOPX9oiyp4ymXLY7zwQ9I+nrhM02OGVupHVO JOvgEns/Pxudr3Db6whq jpVPuKnvV7FEgvjJVnUhMkEXl1lRjm/XEJHzsRRTOFgeuPtObR+bTf4W7qdaZfwbTNuCuqYAhnnkjAK5 WJQvtIwHgNflzWV3587E o9IqJfgLcDl3W7M1OZKelqyHRyviAcljIi3JQqtI9mqrZBi2ZmCexQJzulDUUHZI5me5HKXzfVWZTUxP SGlgqPEegy4RLFaFWLyE OjsFUIr1oNcOWcOiNyZWxOZrdxTUleyworvOuI0Iz2jOQpsWb1EZb+P5jGxGGI0W451R2CB1dvjvk3Fm PO0bZm5JD/cjOd2WMSyL KunJGhJcDVdsNH3tXkEmzuNM9rwNhXHzPI/02Ym4ogmXUx0vokOz5IEdAGyopEeczyTqvVisrLzhCQ9p Gne8t4+PIZ9UX74zQJ9a 2FoEkQNCiFcKhbrDiZlUtg5Vdx5/m8Y3y4ESO2mQGgVMqqV7PgkNGF+MzBEyahfKX8i5lg/C7qYxbxPI XkvoqXMKhaKuxp83ohjR x/D1Y6VmVE8TjgxOCSVfGxlTZS3SOyBhPyChpdltV4LLyYKJkvxzFd39DE+knnmxUcVMJPUT3FELi0ZD Rj/oMTXuNxYVZTKgFh43 wubJ6aMxkeMPp1rkDxT0VIgYQYdaoimNIOTNSkFc6IGD6l0gZm7EyRaYTHNgHZ9q+D+knRmChHR2AkMv BoJbS2uEVsRXxVV5sTRy lS/nXxX6J6+exzKOn1mxPQh5R55ILXwK7VDnPo5z+vn70/w2e2CmPqiaUIBiywIscZ2rLwPUQaW69BEm l4ccAyLDeGiN2H/rATi4 z6XDhAxL00Qi8Ey13cDjwfsjyfU/L396Vwf/LztB79j87DouNgJ2K7HDczpJmDBHdCKImNKMTmJV1d1t pUTKEvIorDYqUTgRL2Kc zZdpp8/QJXvDu4FVZDCHy/S0W4EkOF1spWd7LKb8suNcoBPSTNuw0dtr7A1NmowX7R/5g/vQ5Gm8Lxwg 1iv6j7aLA8kOiFd8ZYnf Xt1MEACf78Jdjj6DY/HGpkcwujUKpjIZK7e4F9cZPWTuK12qEMnEC0juz6AiCeO6oSAjnTh9AAS/AELE CZfMWjQIOUj+i9BTbGSC cKgXDmu8ZL1Ipnvrwg0QR1h3GWIGHdKwm8GwuZtKm0qZabsEBdrAWyc7wx5zX9t+Dc6/RUvnco1pQyWN 703k+uaF1ot3KBFOw7cn +415AauBMoD7SUqYjlMcHTRDHwwponxJAI1ufAO6NT+yifsM8KzM4lqTxPxXQ++PB0/fytUxJwH44sMS +KCX4DTsQr0ZEWqlXUJD xK2nyaRGLpG5MWXW3TRZij4ULLmzudWzxZtW9GaOU5vHNayp8PlwbW+GbWBAgCZPAJhXC4KoytxcoyGN tKOv+AS3DOnAZvTsFOoA vsHUlivv8VXgQjpVaCOLaFuUVMWCBHs5UgBYUO9CcCvLCfXgr/XFWfU3gVBfBvyIVtyNyRytbiUfrIXH sSe18CVJuSV5FH4rtHOP Jp7xk+m7YDTMy8GClE9yNOv/krGoxWfEH+JUCWjWwjjJ3+vgwYkrkEKNpMhi7+kLCFEUoVASElOobtGm 3Rbm73zjhiCaeTMkUNL/ tqJpRR7z0+WzxJjD09wvwkxE2VJcIm8iCeXoiBz4+Esdras+tkkgCkSegYBhFSujE6W9ZhKez+xQoqJARJ7 hn1AakVwqRlnxBmZG+6h do/EdEptsnvwog4LOfDmeZgjq79UF0rOgH6h5RDFby2HfjQzGOSGlEodTKUhK8M+8g/UUx9nmxZadStI thRzmi5GU1Alm/tp29eG y+UQJh5BDCz3KR3OYE/dMCNgYjm2pQFBvXl/7TYROb2L+nZpTINLSrscKaFAeijKmqpaMVF8Kf+MrJQ+ ImvdrC13sk1q2Jafpicp ocQQ7EdlrSiMU+a5IpUHnyugxY40UWL1mj+/oO4hB4cnX22lHQBi9rAV6iD9ziBYIXlNFZhNQ9g81ent wAK2s9GFAMf4GteHsOaK hMc83m5d6ZvOgJpTKNEeBj+9Oq2lJyQNVqqgv1sSeQdEZXUSVW/zHtL7r+czaROumxla1fYMwRoq82ct 2mgxIB9Gy4vDQdCAB4R0 S7+PvZA3un8h00bhHS7heua2KtdNTPVkmh0jeLfdDR92PrLzFHQVwa1qluC+HbYEhIspDsdQGyCX0gZH MNEdNk1p1ETQ/+U+xkmP 3XGnCiPHK1+OHl0fiTx2mZLOMwKbts72byjQVpAi1BNlynNpQqryCLvrjX7KTYVKupZvybTCL2msx+TAJIK jNgmYKLXtuzo6kdYwDV2 4T039nIP6ktBrKWgaDcngHJ3EtjSNLIuVEEIA7AjPxPrToC06RY045AN8dEdaBrC5gNtRz5shCDi+RPW IAw+PHgDAm353/T5Mnmg FWaj0wKXym/bxBlBgVRpn+LzFkHWlPDlBDEHza9lgv17bplBIpu0lq5ntYhvuKDzRMGVSwawFqtrwbZO YdpsfK50CIKNDPsVDnxY tEQxVdOLqAY8TNqb7PAiQJCePsOX1AAFTCP8IbvV9XhsoOl9Um9s7KtXfHuNUMPiWu+wLBFGUkVaB53q kFmLeC985RM7jfFN6Bpt JoWMPNDnOCUwUbjGvwM9oXWfRRYonadDdmx4egI33bVFNDjW3Qh8JR9x6J2tzSdW7buRcvdK/mMholzg OVJBvz1Ne6UDZBNEfJyu gCZTEa8oEZt4x6rGqldRgF9gOpc99IwHMr3nhn3MIo+ZMpzlkcg1LeWJd+DIqqFSXhYGCWnpVOoqIBT5 Cz4vVn05GrZ/zOCStZrQ kqrmHFGowRAzsbT9GUlbQcric5QvO5+6EnJ87kNogWXz6BkEtuD7Mv6Ma8nITAufY6wZ0GGJzrp3HVMi hxZuQ6i4UnQvwJWumGVi EmETEQOwG4oeJ2+yjB3oxkZph37SwJKX05lyc5bbwrLSDgbDugljLwYeqFEsxeRD4lthmCoiLM4ipD7B 0U8zjpZR1avUw//mlb07 egoOuIunT3NpFfoc3ER8pDIHt1k5J2tIngbpvLXzE5/rYdvnM6hvQH6MYBxAHE9J4RP/c9BP031zWNOS vUd2ZC7h1vX44OcGDND6 GeZTlvTuuWvXOHjB2RRK6bd4ylCdC1BYlvyvz1r5PedNkLdJErjhu37QRTUc6OuwF9RTGj0f2MAsYmt5 Ny5k+rUqUMVb+tGN09+T 7irFHZQ2f+qh7ngrP/IfC1wyt1RkwnIUZVhCCRgMxagnr/MkXch7bupWk5MDsguxoxTUcEa8CMp/OnLZ WBXNlW8lr/Qk0gNIuDk0 Tri5JzvvR3bF46ELsw1xW4/7M8loUUOwMvGrZYyC+vY7tXd0F7ryxrPE7qaeriEySyC/vWC6zeJO+jkh i1y4535KG92UC4KZEzkN iBMgeHTTz+dianne+++widm5CzjqnB9FJsH5dtqLTeOn9SpOP6VHm3gyw19xxJMd21BbZBjfj3LTiGtralLU C2JArynsakP22pdY1dwP lXUxwKsPX1UqCYC5Y7xC+K1w+YXlMAfPr934+wF0uh1pGlmmW1ga5hLuc0pGwU5JEExbFa0yaNhjpDVW m4XXmVQZJ1tovdUUmNAA TUiPS00cAWvH3NEFn7qVC78rzddcNYRPpNzsSRrKzr44x3wdfvL0S+YbhMgqIVRjA1/fyFMgikwJFzW9 AZ9m9Aw/zrAOo5Dp9mhg dmdBbpNAvVsZzDc5AesGGUGB6GUXIZDXU5AZu+YemWok7OOz2ZJFOda3FI761X80XCL68i2qx+8CBnpy WQIDanZ/N7blepEUyMHi OroHJwOzNBnctcIx3Ark5eqdZghcQdpsGCFpxOz/g2yI5Rju5fVZLGCdJeBFz4+lQv3tXjl6FGtXz+7Y U8IResTY70EolxpKrOoj UP9wXGhJe0/im6nn2hMEv7M0kL4dUE8j7r7pM+igTrYDUgBPbrTzoOmH1DVyzSImsZYn7bfaWwWURQlJ jxYv7IFZPuJ2VBCIaDFZ n+5XeR/TikzmA+Ql94eXqCAhEQ57b/zEHF6Z3RuxBEt/FoZGCBMOkQfYzgsjIqq019C8oNkQBBgH7UiR EDVBVhSX1RTpbxECMdKb LVV6FUHkyNhEWipw46PHrMi2u4Bp8KdMRsehd8EGSMVkdQ1P1M6PQpxhaiwReDDJaZwErKak1Yjjb1+J eJS/GjqRJVIUPI/I6nu6 v6Y2p4KWOlbQIv4702qoBrFWaNnCfoDALWmy0YGNjxbLaIQnnqVLMK7beG4g2bvavm+gZQgtCVQsmRJu WWYggBrIEyBAUubVKtWT bjlargImzKDQhn1ljhIvH1PYZ53bYbDBPfDFV2lgKXdm4eU+IsHhg6cFCULJLZhLrCNACT5cNkR9Rmzc dZ+K/vXmIjLuYg6Mhm+R wT8qOx/T2PIm0gBHrAH0eDtEo+xxRcQ/kTu2NRgAxk3l8qUty63TNO8EqIcVAkeSooevRwbujdh0ZGa1 K/83vVTHD20DH0isgRCM RYgTIFCm/RGdBtAsU+/KDnbLjNdMuI1q4Ebd/qhwol7kv68jBmOgsuIay8wcaRfeRFe6f+JWaWL/0PCK Csjjc4/NYDS//bq6Xvqk Kb79lizuhWoqTQLtaT+kDj+Mh8cZ+I5oOLOu+/7I2dZoU5ZbC88moEZ0kVMCe/2zHat3x3d/6gYSnzpC UpbvVLG8+aRPGI6U4dsZ CZjeH3TaQCxLgHwS2sY1U4TqHTOdBqQnVPRt9B+yrHyAynXm2IC5P121OVJpi3SwPKDBo8oIVTeMDl3J rttqQTSXByAXdqGQv88A 0G8g9t5xyIpI4XS0sLjCQgeEu8N5fWC4LQJY7B2cBIMwgKLUrlGlhap6dBb65vRKsSMpU0fc0CwaIGdh X4Rn+gfQPGnjtuER/Pmz iQDQNkSQOZHEsJ0doDPohjcbE91HQPCUmZuhqsy5nKcp3SVwUHeRtyEwGcwQxeNmFntBIIYIZFXRf2O1 IsD6zSFBmV5BfpIQHf/S unSBNiqCWRR+mvnKYgQ9otjgPY/KVtdEErYfF6WXZGSqRa5KYvluI4jfWmKwh2lCCeVXpWNZTne9EgYw AFMxBoCCRbGC5SFwO+aN Tp8BTQxeNNQUKC94sXPPxDoTY4UEbY7UIYjfDyTXPYC0PfbwJ9loImsxbpahW9esSNdQtTBi6fAUVj3D tdBkLH495jmEoV08aIjm 1ExZMRfIOOVYUTdmxKt/ZSoRBmimUIzmLmCqFgpom+SA83nzPnajZXfPq+uLByCh0bO+y89wPd8dxXMH l6V4SEE8sEI0EECa50Kp ELsUgijMxmQzHZp1CsBG1MwJk2bq6PUFrjMauR0Xs54KIXTrmoxrBbuieaYZMPvHnKMCAYSJ+qFHJswi 5UdiIFqay2gZqNxcK5UI G+uIL/CZYKtvVeZ9s5MU48g+z8vIMgZ1UOxXpD/W+HIvN765GmAi34uWKc3a6IRc3KbhhVMX3OF5piEL 2c3LsLyHh/Ia0ZMh8qSF yrCQIX1HEMhosUGESTMlJ6QraGNThAcNAyXSWalzYpwTUWQNDkDPZd9osTXPqrqBdinEVTUysM9GCSi8 KFEjQLBqneGexAVpL9rP /YtMrb/HWGZm2G3BmCWHW9OJu9Lys0uKzN7andErsyN8YwaI0yMDLnT72VwhDsbMmJNe+a+kDCiO/qQX +2DYBj9lNmQoGInHtCcF LG56nCF8DkkXoEM9+wpMj5+v3p3TViqZof80EW/bf2RTduOZndQggLDv0rZzv+0ITq5XzzLTMS1X6JAC ksJKiSEQTLReVGh/y6Ex rg0dkvl1D8B9M4rrrMh4LCddjDnmRphR6yFKXY3gg4PkEewKMj5uayMN4MSTNCSu4FpfG3CXl6maSE4h j9qcCYOaM/nL0R/HbflD BwWJ03taq5Wgxn7HJPxJRJLGYb2auzraxDsusBbg5lCrZZJDeYoZiGUf9ZAFFfw7PxW3EnYKR0yQYvwH Dpg/4qI+MAgolChfYRFE w75TVUqWWXYjPVBx4RfTTl+FWsfp38akcTQRjnMhQ2WcOB5+Omnn+jPP/+AHuwpaRVPyCH8dhZzet11G WfPKEwTliNrcmzUi3MVB gLCKF986iV8EgYuE+yZKYmGjvoG7lhJYWFddfp8QfkgpXN+XhhNlwohEHovmENMSHr8ztlkxHGDpHnaQ Pe0PfCj39bKbWuZqTlvI zeILiWOoL7f0cfEunHaZkN+F5eKMwkZzQTEGmS7sb51osgS3y970T141DXCUYlpP+KRMVBNTEVEtqmsT yK2nbTSfBfuI2aaRtRxg CIJYAuE9eLXEWtsgtn297SASK+RpyMDQWyo6HfIEYtKIRUt7PKTCwbNpcFLG25/8da3p3e834QNbO1+4 04hyNrJup2yYoKl6qXe2 Jm1dKNSegVAQv9XOJM2o0kgZTPYM0PcS4dQyQXcRgWBTWZs3lhjuq/7G2JJXAljWJHC510pS0cL40+/r UIWIqNN+FXy5Zwimc8nK tOmTZN+cHW2dFeQqD1hSmRkCgkma+uuu+nTLba7OkAPjYQDOsruX2wMU5Gno2CDNSqPSCRkuDDBpOo6c javpGrVqtS+fXsaPHgwC p2VkxEYxHRZgyFWExWmDAQahYETFQOeSVYXAVHAzkKEs8SGiqUXv/aJDhFCJMjCA3oZVYbMSN8FTzKqG IbxCRYgDMMwjE+wAGEYh bE5gbVXufBZ3mFcZOdHUDfpIJAVHIgM+HYMNLXrEVCpHVcXy7AGHFQ+/VdqUhXrUExBw9iceWG2fMWv/ R2S3vbZACtkxUYLFfDMM UXFixenrKws+RYle2bH6pRXp1zkv06y397zuno15hmaf3GYQ85TBftysOZPpdEuFrPBoVWPmHz2uWISs tSzZ0+vLIYSKk5c+ROPB Mnqa64Y74lwMs0vx1yO0zWJgOkwTwDo3LKIAxEht2yirqqfjQsNyirEul7VK4+evvjiC/7SG/Vj9oYMK 0YdP6DZEeeaBc77cMhgp uhPTI67mDy+/mhkpapyvqrrNcuO64mNa/vvv1+GGSa/2qF8LTc5l7hu976BGCZSPAsKn6pYfWvtXICKb Hdm3rITXBe/EytWrKDu3 zmIE1Gnr7/+mSpWrCjDjvjvf/1Olb89vBIGWEeVFr/bjYbGj5HkCZ92Cq2zlURWy40GnGHSi1FwRBnZI 2OpqPc4XO18oPWb2BGa+ gjXTo4UQ3s67Qoljx/+qW49cdS0xXOoVhlftOwT3lKBp0JJyBifs1Y52lCA8rhKZoWZOOEnX3g6JUVfc myVvpEpngozj4tuCpmoK JTXgLROzb21jSTmTGjSYT66PuvQSMBfqlPaxoGZMs4j+VsD4e1F427Kn3ivG3MSnMBIhWPayetZExoZ0 OrRowfVrVtXhUiOh/g65 vkduA5CLcKTcKrbUOokSR+++KLyuQcvFrSPm2++CpIAsYie10/jev/9/kXTfAhE75fYWnVxVlPGCVuf4 VTIO95++42vW6kTxpIeD cw/k2xR1Cc283CaiApRxy0jUjkUSJAtoDztpErY80s4bOORG9bWpHCYJujclsgbujmkkF0fh8ItGrOUT ETYzH/KF6yXyCKOdKGFc 432laQul9FxWXbHGHAXeiSd905A64EI1GpRR+/bt0+OxyAd+bagNKeShVuM0RJmGnP2Vmpb43TAzQMKH 6MPqy9pPrTuEDmUhoNUa TJlpMN+3Buc63//+940o7boKyt3TN+CPy0qQNGYQCqYYovRjPAWIUz9dEOFks7sjx+XEvLp9G599LZZm OZe9ofwYaqUjNh74AJ60 qfzKJ2lujXVjquoz1+tUrgHx+Ie4jfg/omWKvn4iTGUJxROkg41OpR2o2QRvZ/1j8mn5wJ1K/7880+aM gBPLFu5QFDea0393Ft97 ffoJKlzyUesclnshFGCvIabM43LuGkdChRjG6xjaGD7L6zXc8jyrSPisdaA9XYq/fXXX/NKvHyQU11HW IctKXmVFIRiT1FG1gVTJ 5z1WFnoihUUG20nfhevk1/HrBPCZPx0vYghtbtg6wPclw38lwIq1wFwl8jkkcXdSZ83MBC8q6fs0VGIt 0fIiQlnMv01Nep6pvE4Y nm7tOLFLUK2yN/bm15tULrwjNmZOo2NE+E9wfuN+66r0cUeneuHG5ku5pXbFKzAjmQz+okv6RVBNT8dH aVwgXgpvUKcDAJH+sWJp F+5DyRcdBmPeM076zs7fBPzYK5TbOc2r6uDQ25doTfdEDwyW07mnxxIz7AizFgNUzWazLXJCzUyP11b2 x7udwrRBe617qjLsdMKk Ocm6BRFl3kcmnd61zdbxfUrA9++3jlCWMQHNLW4yirbXfJe+++/F7fVYPOk6VjnhHkmmkB9VH+kdLg+I axs+1IfNNm1PpMtoH0JP TSOndAamRLjiGAoQHSAzDnPNUQIcRdBULPHJIuy6AHYzmnLKXhkLw1e7n//fePGG2+O7tqhs55v9soVg XGcLCJX1FPEDkbPOHhN5 ez9lduvjY3m8H4bO3T7PfPTAd9U6bPi5s2OGFSr76wtcOFinj9SdrJVD/zNPVKZW3SkFVyVeGCtLLY34 gRiS4ascvcvRD0WP6534 uNSYiNox5cYy9WIpWRJNRIv56607z6NAUQYXXaVl8/6Pbf2316pKBbmIyAiB/FrLMSCaAk5eki+33nnH Vu5e+NRA7Bl59unBxZy0 a437WqqkuK/e/Monfe6IlfrVTvdgGVWdnZm67Udz/bMNTj7oZpBKed19VciXKhpDERlxuqJOChIL358f sQWZlRd7aHKclLlqUVf3 F9mxTa38+2VN1e370gwtp/ViYa/8fjjj1/9dtLHwzAZ1MRHALUcQdm0clEZOxPlGFoOr4v/PHlIq5EGH GCA9P/+++85jvVUgGiee +2366D8Li1XItH16cSZKdebfrsAyKzEOtBy250gS8Eh5iYed55bTec0KZWIAzDYC/aLlp+KuRrRwpdpR BiLmlMGw4YUIPoLenfJq iacshaHlpBiYRhEXdxc4bwhIPVBOaNYpxHc4b6xAccwu9tAdnXGFv9Ytg9D9yKSUbrgdyMbQ6sKBPBeN q827EMRMkSUBJeoIr0Jz f1Zdqx4874fPaqdro29vQTe58SXODlpQKxynNVRBimdTyMSPp/s0lowcxek0zLfsy3/FHy1jMcntJ43n yiYzCbWEwPRuZq3ulx54 wLBvXlMjJQmRT6t1ijPrilUJNSkA2s3dwLOgcC1xaLARAnOa76bsMyxtXmrdkT0SrLgaliDqEQDOvdLz Kftxyx8kb1CRC/XHUgnV CrBxu4TYApTfRTizhQevaatqqhQgYNjX5hzTS/w5Ye3207W0Da3f1EVlPX5a3S4Uton2Ibsi25XUMEPe QrVZcuWqdirQQvNERA8+ xbUJNmdpatvI93nk6bX2MpTlDwzyKLx1Q2wC6xr5mmpnudeF3JADgvWPh4dtidVrg5n19dTGfdL30UTA kCutCaANMjPk/fy448/t g6adeo02Gzb19/wmArd7uf0iEJrzGJTcvEKHhguhQlnGLfqAB1YHuGZoTEI+EJae/R4aJ6br/ToIeMcg R4ZR/m4w+zp5PDQGK5Rv K3dDYUfOzbiKTgkT86zKqKmeEq34Fn3T1apLjXpkAN9tpGXxxPLVwibyfhMHfP4cd7b+r3jH62gkAFt9 P7HhFXOppJ25X4snnYdo +evRtlpux3PfwwDJn+yoBc2KRZPL0x5jMMYUiNU/dME8r8Pk9aVapTrvXHhDa1ovDbLDjtK6KrvLYd5u Ihf0pfXC36f1sv68Zc1+ mWjCj3w3hqF1f00d+PD8152X0hqxpeXxqTtH+euwkcad+x0chNNXWfn3J1caaofVs0m71UQapbNo0Rnd b++2025jyFJxq0m0dxCP m6pi5PFmu2X648yR9j1kQKwxULhy3dSir81UVR5MnxHqQv3TofK9ahOBDWlzDhj8Xf6LmUln/112wXCO lgKqp97NUS9WNMR1osXp xTLWSycIDHC0f3W/9Hd1CuofJlvPw4OctLk0xGoex1Y0YyfilUZJDWVsMuyX4YL7tqHJwJ3e2dQIUY5g 5cQ/eD6N+G+rZr57ycdD OKU0fbyYAJ7BMwmqgx76u+5rLCVZ5CgFKC2RgMkSv6ecVUzcRHKsjAEVSOj7HCaXngKXZwjrkl67a5t9 kGSYFwre44+CoD1R936B +hGO7gr0UscjXws84b0v0YBuiG01yyyjCUy0/H0tab5PQtY8WREhbT0WcjLLRIMqkVaPiw1WLCWhUtwk ewLXpvxOmLEiBHKZ/Yesenia 65nRewa36+CVo8hNu6T3321pzGEPUNBS44YRk8Uv6UFGmpBUYBoGl5nS620cjAmPVJpQv6lb+uAVYivf CyafeOLznr0tvrW28FeZ QACcl9w1DMUchQN77vlzVmQx4on57s9z+VpxNMJUS8aIjk/M4TErL4BzgXGY2SDK2s3w0gGNe/YW1D5g owhPv46uheNfYjYaDa5o AAITF2jUDIMOrYuivPJkXhk+/NK4UdYECFQgzNru1ZShqFtLqXWMdzOptk7018zvAdU3qq7z6j ASTK3t0pV657Geaz3+z+ 5zIGqwgYpKZNgeUHFXmWTHOBlaCgjgU1PHIGpigmzA1cZ1XSqBYzWYH/oaz8giVDf8nSkrJ6IEZ1A2PS FpUyme+DI620GIIHCM7W XEHUz8Go0u84wwwBa4xGwP3inZkxCooslpXEf53W8nNdx1JeeXYhpaKaPNZnBzgXyk/Up2FnenBYOtN3 AU8UyG0im2bxfPKao4QY 1S+lVdfz4NC5+bNSWjbKkTStNdbYHJt/T1Cu1U+68VeTj296YLRwHyIXzcYdjRpynzo2sSJ8oIDTAK3T DAYWLWM6aNi0QT59rFYk bDYn8yFvBtRahWvsqMFN9/JCgIDP6fihfYAsKcaCgfFXUmyhT66B9+5dVLk3nJkBoilguvZAKdjgOXh9 YXDhw/BzBL8kDKzlS6IR QBYqDnoFKNHxQjLOoZxM1kzHIzz5YopTm9h6co6h16kT1HOYdp3eVkXPJ8Z2q3n2mrPjyxvSINyFS5at C379+1Oyzu2qsEWzsgpH BmPenH2igi2TcUAou6ajTDI+rwQkx4Arn6hKUJg9tL94lrzxoFaCIQKvEQ14riylS0Ek5iygbXcW50cv ISp3tH3u9AHhf/kmQDBi iOZrUC1pdtHnTAFey6gMfaytJtuU3037ncDHMSA+kI0DYnYxmrVDNM16GP7cYopT8lxsl4LJS0hPyxML WGAAhlW2eBFgFQgNzzjK GQon+paE9jW58ks1kMCaFyHtZnDeTycHBjs5bKbugz54G4mJ/vAmfUTskjO0b4vE307r/Q5R1zQiOYGW c2+H4wIpun1QfIr0KHB0 wBpnzb9CqgiNHrQQs2UuDr9vM3R5Vh1dwk4rNg26t4vNHb7MxhVdpqWIENPdrOEDe+7pBsbiVTT1NaY6 S1B0JiQi7aH9m0m3NH24 exynZ3rtlMBiGjyOzIFINZvVt9zBG66xDUGovRZiEJNfojl+VMTihmYySI3aLoRDaL2IzmwuihbaJ8vK IXIhGkRZ3CgvKZPdU1Mr Eb54YRkjgppozNF8x7oy1g+Cs4gLQ4338ni+wrnLxttPZMXoX1O0WMKUSADB7oslCNRlYEvycCeMZKGv bbqj5JfrGd/jTPtBasva XmOim351jwGK4zo3T4k97cwXelfyMeL3axfag2QnDyPSAMCDgCjsSjguZU2YDfbe/wMtCWtIUEqf/jhh 9IPctOyQTeRrqjRrQXJD 8ygO7ImjKSffuAYv4HIjbByDPl+d6LVsTXYRZVL1h3QcrCkXEA/tcMqlZG2nztULQrRfXojjErBks0s6 7XlNfYNJuvAqbflCddpb SjdCbKBB3IWZMm7oVx3xkBX5Fj5wm2xlevHnNW0809eam6ZJdl/o0Ff/pFDIzJedIkNHQDIQprD2LLAy Uh0BsQEsk9ZXVzlSI9YU 2954JDaYKYhmt7bW7sB0bGweClIVjIcGxQedJB6uB48/NTenPwTZrwwaXWG/ACM0SlOwaVyJWp4An3nH X3r78AaLhlxfmZEQcDMM v8VxZ1HMiPl9dfPSvpVHwa4tK7VM0Uxzn16vmsd7nznEJXlbIxhUmOnadr1DdPwsBqdKNPp4wzbn0cDX uzI5DiYU2aaaYI1VdRGQ eRUNSozhc2LbaWmzdRNVIzXVDeYDUxIrS3Ca01uUEzixfp6oKxIzSUMfva9HnVBqF3z79BzHM4CnagUz 2U4CDQmg/XkbfwKwT4Il I73KYDS+itxS7rKHWxum8n8Yt307KG9PiIk2AxJbBBIObKJB6Yr0nYMCFIenqdZuJIk0TejPvnf+ySwz VIatZpapDeYqZkpr76FZ LaC06Z6OrSBz0qj5qorcNEOUk9ibudbtnWwXT0PrOMrYaMuxFki9jjPsKV+clZAHfvb83oPKtDqd0RlS 52LX5LZw3Rr89IHmfO0m /322+XW09+BeEyxiYfCCk9G5jg/8JsYjryzKjDL6N0reIGPq5/ZYzXT9/EuScyg0t2Ckv0bBbnf2Cfgv FeftgN3J0/We+DJ/Uevi XEze7r75NlK8ixbyobTu++3892pvb01WwV4Ma9WFrRqwFnJ3btd2heuh/hPnWj03KUOCA8Kr0F23xNQa WINnY2YPuX4DXrwO2jFu UVCYajYziwFQFBCG7VPlcMw+BrN6sokOfdxO9ZzmsKtyfzGYMRdg4RHXLlcP6pFmdZghTbLbtu5U0Ceh GsIk8TJCp44KUpK20kNB tcFctg9hrleOX95pUPuH0SX9kotsm2LhVsgRJfs5AdihGnVDeQYvMoVphuz54wtXfqKy2/t62AxvQefV z2j8w3mkwijWGIzKtYVL ip73IPGfysbZTWy8qUm0SH1bY6470ex6XYmdMKH33l13UkE0wZi693bAZFPUCZDMo6AjdB8TyUKsZviZ wzodcFckdcaiNcCRC+ei AkLucU1GboSN0TJD7vBWi4CZ+/1sa+56jyMuO2ApHZlF3B+UB7YmHRhT0PxcMsqovObukFK2CuS9aHEM XCfPnPMhC8N+sUQ6231E vw+iS1k8sPAfRY7p1wcSFVt9UUl5oM6XXjM51qw8+8ExQzcQU2dHBhsyuFJMCb6bcv4rhCppCxH3+KqU KGCV/dAn0axbxd1hInHK DrWKoiL9jXeoDvcRRznBBddS9jF0rfKrYNgUR8mdUnc7c7vRqptVF5JvyzqDsRiXfRqW6z0ykg8Z33p7 vDpeA0xJLgAPC2lKvOjW EYYD8B+wUD0+9WQ9TfwAguO9omYsDRWACbKy/Ja89IO/a/l0tHcdbZ2mwMe1n+MV0buxF9HVFsrp6uZ1 B2VCIvJi5x4OuDD7M5YZ +M9d280hQTJmSHMzhNmK2j///8ubnNI8LJAB+A4P9hfWzBcm/kzRAtPSpwErdjHtEj2m5HLDrxracBqR j8utOKBfKA77ei+4j7qF 1AmqSFstwLVxx6Jn1woGWOnKpat3FAxMcSIIR8AcWbedDlrGRk5K0lb5fvCJjcGtLJP1H6rVE6wcFQs5 Bm0TzArxvKRby800ZDiH 8vqFI416xVNTfIlP22dafAwUFtT9VpIH0nz2kblTyLf4E+guCdXSlZhiOJ8c9H2vtmUIjs32XV+gxVr3 XqTPn6r98GnA09BE9XM6 Gg2SRHFaxHFho8OjyFAow6O0oZ8OLnekjohljDmYT+G3r3i0Tpv9ZXVTKDdKXxIeAB5hZuDPkXzCJYi8 3tzz9Ivi3fVvpFuGrhl9 kCQIPGTT5HVKVbBEiBEgWQQNh+XpaeWVYOLezHWOcINaz8j2VwGTCEomNnLPFEzFJtxw5RDhIXTM3H1J Vz7lZSNtSYSucWKTflBD MlSKC41JHnlBXBhZBFnIe0FMkcykRtmzzYORTJ6aBZiKWZAkwzkb3oqIewrN+iFN7h4VU7z5A+Ia0D/M Exd3RjY71tBn4A8Xu7nJ HNLh6LlkV/lfuhObpJnD0J32VzfxnaX8pdrRMthI+4f+qxFK05+CMob4kceRNJxTq8hQjiccMRsE+sbx XF0wTMc0NtTVbyo4ucGZ ybhOvb86ozr0tMdFbg7z6ANc4SKNXz/xl0Kn1W+IV32yXvGH9WqkKs3i+MTPIwrpX6MkQFXOq52+xpMn VGGfPJRImiVoSuRq732h xTiGGrYwYxx9iGajy0iHMsWIBAuM7wIoq/GcH4pQgrGysT+xIeum7bPdxNui8oupBFNddj5//770hQYH 2IS48JMcxmXIRXsLhR/G p7k9pO2b9nK9LCzlJOhsGG67/vthJLF70FziLqb69b9ivR7yPDTqRjWylZo44KwjA11qBfmIr+X7YGJN vfnFTTuiyjwa1MqASu7A zotAaNoooYBfIiY3vP+4aFumWjil0/eTtwbCsBwYKVaLUIiBTm2XEI+F4YbbWxImwC9QkqPaaHBBdHzW BCGYRjm+oEFCMMwDOMTL UJWgoRBi2EUcpAFy/zDKeQQUSmHS3fLIOiCOO6BTdVsXOswDKVfPCJxnQ+oCULNbjY1llVFlkTO3cSlM BiGYRifYAHCMAzD+AQLE UPpJZJwPBIcVZVjNqFJlYWFjgAQGxYTtmYLF2HWXXrAGJdZQBqWEGzrHknTKANjHJ0uTvEvEWX1LOaMz qLUesd0PzSxjCRF+fn5k b+/a1lzE4LJEqsDentzlYSGzNCFtjSBjqvSg4xDPvsQ9g7tbiPymce7zrtq9zAEB7knR6tfp40unl3Y5 9xzD/Vm4pRrVxzuVYnxX MBneto86EO+/PkcZ5jgHuzJerBdzWfi0Xi8XOzQMEM7AedRtr3qZw83HVXol4wycGt54tYK+bdq1Yp+/ +ka9mzg847Z o4491465gmcNf1t011/GoyJkp4lAN5p2qhkor5jXZqA6hq7E8lUyWpwR7rN0qF2oCrTYp6F8+7I4fz/N YNT5DGQtGiUWmFQIrRtE YpQoUKFqG/woqx8I5zU6inVz1IlkSSu86HOdw+gahsyvSHpHWiJUNMZfkRq27CHT7yj9Ptan0iDrkqhc QPJRNsWcdphAk6IIo7UP HbVLU7jhCJNLmJ7Cl2CU7ljO9kHHMjmoykRCYmFPs+mW2+2YYfWnqKs3jNOG2Zpb/olvl3mbCcJR+kTM 6xYAKF4+/btjX79+hm9e sUvjT36oZGO3INBtn0TctUzEJA11+ap0L+OaRk0dw7u7m1194VnqbS4NtkYITTEkXvi478/y4RZQL8hB DDQEIJYOoRPnjypUuSkc EFJsz8nRH3nL45CufKqWElbduCwCXmJBu01EZx2J5+VX3/5TlJzBaa0ewHI7XlGOhnpewsY3piu3btP4 Sv7i2IEjJUvrBl7XpI4o fvs7+t133vfAuwBl4/8BvSXPRnJihruM1zJPChwyWKfbuLYfky479mNemeHKD8lltpXIajvQhfo4iSjH VcShrCpPaAiIddROo8aE za0Mvsc4kdY89WpU4SrakDGZVG7aj8wxKuPvNUtT2dE/Si/4pdaYVZgG9/YnZx4wE6OGohjU7p/T58+K nI6mJzMg9kOq0JZoWLq4 aoy/B413GVA1FG3TxZMRBlpNO++UR0OYtJCDOYc7RH0N+WI72ucAn0a+LHHHlMpcvLXX3/KehgG4gL42 Ifiw0sHazjyuzcazbWum l/Xtg4XrEtENWnAvw17jPU/7aMEBzZZP6Dues/1k08+UTEmlSpVuurhIPzLL7+fhYHUxJZnto6EYV+PK 46DH358B5te14QNHxshZ QwTjO5wCR3BH7D36Qq0qSieAFDXvz2tLN6//JDyd9h5DaTQSlvGgqtRPxQhW3+vDzEJLiRD6ce38OFED ePcSauwLjnEdTh5JCT8d vgJO902Z4DGtQwaSuuRDkVN4aEHr0D73HStHZzbYH26jhYkXk8ZOAocv1pWHhJWIhVsmE+g3sRnw9b9K yst2fjcP3XYJT9Sjpvlb HX+nvAlyWAqdHv8ruzRzpELc3U7i8419h7lCh69r3G99Vm6IRUiSLnwM7p4T//8c+QQyICVt136FJcb9 2+/EVjlwtr0eusU38lmW ehuUuvG5YLCPaO6rIrlx//4gtpet6BZWqjw3tEoYdeiKNHvhVBtyNzvxltCljDK8GbTbvrjvfDlkWEnM KtHsiZvNzRkuQblHhE99 JPw6RD9kTengJ/ZtPFy3Uq077aD5Z+++tsi6tvNsN3qaJXttumiisIjEwpkkpQsYbKkALchpEWnyiDi7 uHA6GUjUJrNj28JuUViQ QeNBc/U8lCHcnRWhTLvcuPB/O9//4Pw5YMuBxd7/R8VYW1cW4QlBs/GkSefMIimgPSk8Uko29HKZIjKH hHV3sEzu9fnxd0++KGxd YrR5GgLQdMl6czfzNrg79nEf8Ghq05nM1mPyonAOItVT3UkZEjqhJl1ryQznTggjCx5FolMtIAfne49Q mQWY9SSSA+PR9LeA0wKS lCR1lsAwhE4uXAYvjsE3QAOd7D8t0CgVWMhJ+7/+frhREn7dH/01afGrRPTGgE6//76BhVR2z3xegbpZ uEChzGeVGO1XMWuzUjKB Te147MtSn5vIIEaMU9/NYNQ4txFrTJFu7dwMzto1onEn5UWNOQVpkff7NPndPWq0j714vJXsvOXX25+z pArYLPAMgOg09oAh847z 4ajZa876qyp8PEPhnVIjSFYbuPvmGmCv/Nc8iVTXXBAjiZZgo73QOk7alvqYb+2PrVpLH7H8ZFfyvhti 12e9/7777ftx/YE35jGG NOcueyONbvk6RPVpdAxnqfxhFNIIoyTwQBHP2mYCRUFg5qnKGs5+wflBxn96cGQfq5KUt7uoPKpDuIER yidSsC6mKD/n5vC6HCog csKx6egr6084gLOJg9WeTPXvj6aViJI00tblSnx3K26iOTefbsLBOupCco0aLsPh+nSnWYZ79ulvNAj/ ny3W4XzLJsaKOYduME44 jsTIKhHsP+NW85KXqMqzdIPDAKZPpt4KnBWDkOO1cJgvf//eViVI08EtIExQyrk6g368xT+U+jiOG/wL sDNDPKalPFp5wlwaa6qR TKP594bavMdqZzYwt4bcGBRZ+3j08OW4p9VGe38NOd7bsGY//zzzzKsQaWP+LwA+oy3miAMdUll/LTDS 1yXBPI5Rs8L/xPQmCq9u 5wxefJkl/u4YHD1Dca+/Is0uoEWwux4mw1qFGie0j319AdvmGTDK7zfLVp4n45lUMVsrnx++ecdXou+R jhUltYGgwaCyNGxAJVm5 25rMjm1gmOO6p6vIMG8O4mSjRaHOiL9KdOgZAORvGFbyy5MgnYevM/+4z9OPbDAH8Yj316BSEuN01kin 9xaXf/+/VUqE+u+smXL2 vzQkJzhSoAAHA+j5JtNe0/DwAxpysHVviOyjeOObH4HgNvQE97HPM2SpI9zvihe41EuIYi1MLR+QaN3h N2E17Drg/KGO1fdEPWtR uw3ucHFPj8ftDKDWOMgeAktyOkusBjqnDWRiBGtvnBKb5hzdqenPBkPNnYBcUUNEAthhGZLbQDAY8UYc h4buOOHZ50QT4LwsR0// GB7Ft8IS3/R5nJtGlbgHJ43ws4Phx+PfeikIR58wAjrIp1bAdsw4tMEyOUDLQH//ETZlGpQzRkrAo0p1 yDV3yhJFgkAtkdfwZYWF 96vAyvD4es6cO297akGm6EtXnmExcWOU/TLL7+LxH1iNT7o5vXHpBQLIaQlSKsm1aj5x2J1VYUV57RQb sHV/kmMQRcR6BqnIHhR0 lrxcpBhfBstJ7rby1wVui+eTvOdy1t36r060cUM6UmFQ70XTorbVKMy5YLWCzzTJkx0LkwWqsT7pGQW+ 0THFkaZJOTQ2Z52GCeka 2iMemXFZM+4zxbFrwS1Q1ZUb0+bC2YhpPMFPrgaa1Sg4lO++vKcgrp0VcaGkQA6zQmgrTKwjxIjMXzIp xo9HaQXCGePsMttAu0EL NMQQ5GLlUgfCpFQQgBg3xD22Ao9Ms0n6sNoHvQmJZyz7ucCJsAmjxkSsY+Nk0Qnpe1++knmc/ToURVjg lcRt9OVvx8hy+6KcQYsu Js2LE57RDTpQigsS6Hu6sjYI/toU19keAzmLiIdsHSyvYFNhbXkDAL79mIvxTAdLoH7IXj33nUmxpNV8 TnrS1o414RjIfWG6U/v7 OpiWEq9nqAr4UCTIVAsjHyAboWKGqwjAW34FXKgZQ/Y6ytQaoHYin+JThY5hQohaUdzymPETPVlvYPgi jFkcUXvCwj51NfOuWq69 6mxTDl5Fw8DvMapMtqxWAzQgPlmOj9jztlxPnznOnZcaePkxjDb6NhdjHmax3Hhw0TZZpgYCpjEQ82Et PzY9oJzNeQWsr2OfAmuI 9Sn1pby0kHlYRk9qoHhqjiVKJ9VS5+yH/iEaUjKgTejz5T7GUosuem6854KY9iESqLEhsv+dB5IL6p4W i23zNhh0hq9YaXAgUhMh Atkinson/J2C+KoTFBCd5zTefJxp7vy1gX4t1ixdRaXMEpeqn2vSd7RGYIMxxwDA7IULVfDX9PLGx8R8MWqLHO LcWK68tNSJKRETpQOaDF kytpcBrqYtwCvUGixFJ3jOe4NzeoZcJlfw2S8GKYUMI9tiw+L2igNsyelyYJ1X2YMIuMTO0B8PUemDQA EZvqwlDc1hP8sNHmzFwq NdFhbgJKdblIgMjcfkjCDEaHqhtjxLpcuJYaEmGMUyN2cCz/Y8VYMlTFzrhhTDEent4Mlu86f8iz5dKV 1Nu7X+/dZ7Zps0bPHsax QUNI3ayNQLJQOWy0e20q+2G7pMsVNfC8SqvEFzLP6LuXLqGKYrPC4Cc5EUxVXrj9vXFlsEpmv8TEb8Vj GlQcaExgXtRpUoVWSmhG e2XrTcgD0/jfYzzFNM4scGOxZWPmBc2MaKDxVRyX8yg9f3A5hkJjUjM4UqvOvpCY/CBEBYalaygMJESz 9Wt6xyw0JwD9EnNbDVSW lKQu7974SlfphBOWTQVGyXmoPNrNXLcJOY8WyyqhPespkNepedSYOcPNNTZoRL3Kr3+pok4aOu3S3w6i mt23yc6puHM6MiopRQWF ++ijiBWMQB59jInURt4iOrzx6WJMif82y/Gexcha92QhrI81VuE74FhGaiP0T5ft5ZYO1NRiuJDyoeL8 WN1iDG96CHUXenFlceUS 6jCDYeUppoQ38pnueuaK/uuMJjOId5+6cJgl9D2f1Eh+oHbOvyhvQHpQvniNLHzfsgfEJ504xgIWRAtK U7elQqJ8+yW8Dhc4utDM 8Q7G/m87iKoZidu1vB3mZku6GbJSAI5JKIDbK6n2ZO1WjbV97J/2U1b0+F6wnIWbdfEwSTCftrv3ZH0/ 3swjFnx2GiXp5Y6lbPgM pWKr8nJUUz5CwNvJJlTn7JW4flKOaq4CSiVycbxjTi3RmZ1fP25FiF1AsB5ZHdY75qYN9jaJSScp1Z8x nRheZfagp4/6HmDoq3AT 0NxNChvV5lXROkOAAaH9wuJeJCd8Qn1OIW/8YzwhomUnaFRZJkGp24+ga35gkl11j0pIUmm0vRDdbDye loDidafSpFducHBlhtCE A56lR3EPU7DREXALA7GkWNC6RMgItLcIO/M+5WsMPUwN3q1gEnSOf9MoSgNqofiqR/s3gImbwGRcixSU P2cVA0qCWsIjQRtSO8Jn huutQDR1+mISYImGjdcsAyEEF6SCckcK2tUMu9EV2AKMYnqgNzrAcimhjfq8k/FleOxVLiqy9112wjDW rVz1klJtEPIZ2YAdx/+K I/3Fk/mQmC/v6aa6dhuwnYQC7LDSg30Y5cGY2F/acxnxrsKz2bgy3OrnCBUbexD10KGH7JXfSQo7cqVo MoC6hhSzmFqzzjn9itKX ZnVVzdvyMwrPxCI8b+jm8S+jiN9ye89c62m1KChKhfyG5Qyn3lmDwENwsC5GnZ9dGGiZ5GCMWEvU9pVx UMHp/2zcpN3iS6j+1t4+ +23U/gv7sQ7V/XXBml0guxuXRfOvXD24xINVNjI8e2t00ZcOgeNCADYSyUbZ3yIbu5DfqmJ1sXmGEcQh hLr9UTGITPCmmlOtrNva n79+pwADEqFaw6CPXrXRw7PI51D4331a1quUVcGvLhzq/sIPDDc8T79T5Hdhuil1mocn8yMLP2oQJfNX TMUnDO05hpmv5RQ2wqtI ENNf2GrW5yclUrO8xrOw6J6mgLcpRIPuHybNiFfQHq5ptIMeLaCDnwgnCc8jmM60BrCegQzqbQ16fTop O4c3R/sXVENsFvrvkm93 1nxGL454jzB162xzY7SlBGOxCAI9SAV99E9ccjOo8TAqDIp+nz8bzBUX/xjY1kB3cM4ql4q9RYwcDmNb YRngN/iCoz/3O6O4SU/O 2HnPm1r6I2appktRCrFgrynGaSGamyuNlYsl/cB9Q+6LZEG6/AlIugH0XbuD70tXNUh0fYLCMOkeVAQM EIJi7/5p3ramlkgbgCoO cw/A8W7BaZ7TKd4kmqipSnG5VtnAS4UzAiuBtUxU3F4xH52w7YtsR14OsIxAXawkEA/FND8+/mnz043N 0/UUGEFr4Tpel7qIXLGs JqMLiBM+vkngIUHWn+wsGL+LzB9Iqu7NNlofgKXXVEYLlr6fPqgKxoYGex4whLUt+OtzYuUVn6p82yIm uilTWjSGBze1YMPcmMCn idYgDAMwzA+uWKUKViM3OiASTyARVyZrCYeXAJcjXOw/0Wq6UQGN739HWRNRJdQYqSsYnJS></span> </div><div>
</div><div style=text-align:center>
< /div><div><strong>Patient Name</strong>: <span class=clinicalNoteMacroWysiwyg id=[id number] macroname=PatientName spantype="macro title=#PatientName>ALYSSA PULIDO</span>
<strong>Date of :</strong> <span class=clinicalNoteMacroWysiwyg id=[id number] macroname=PatientDateOfBirth spantype=macro title=#Pa tientDateOfBirth>1950</span>
<strong>MRN:</strong> <span class=clinicalNoteMacroWysiwyg id=[id number] macroname=P atientMRN spantype=macro title=#PatientMRN>[id number]</span>< br><strong>Attending Physician:</strong> <span class=clinicalNoteMacroWysiwyg id=[id number] macroname=AttendingPhysician spantype="macro title=#AttendingPhysician>Sarah Coto (Gynecological/Onco logy)</span>
<strong>Date of Service:</strong> <span class=clini [facility]Not[facility] Cent[facility]ro[facility]ysiwyg id=[id number] macroname=EffectiveDate spantype=macro title=#EffectiveDate>05/10/2025</span>
<strong>Referred by:</strong> Dr. Coto

<div style="text- align:center><strong>PALLIATIVE CARE INITIAL VISIT</strong><b r>

</div><span class=clinicalNoteSectionVisible id= [id number] internalbreaksection=false originalname=Chief Comp laint recognizeconcepts=true spantype=section suppressempty=false>Chief Complaint (Palliative Care)</span>
Establish Care

<span class=clinicalNoteSectionVisible id=[id number] internal controls consultant albreaksection=false originalname=Oncology Diagnosis recognizeconcepts=&quot ;true spantype=section suppressempty=false>Oncology Diagnosis</s nava>
Stage IV SCC of the cervix

<span class=clinicalNoteSect ionVisible id=[id number] internalbreaksection=false orig inalname=HPI recognizeconcepts=true spantype=section suppressemp ty=false>History of Present Illness (Palliative Care)</span>
This visit was provided via telemedicine with the use of real-time audio and video via [employer]. Alyssa has provided written consent to conduct this visit via telemedicine. The patient participated in this visit, noted that her home health RN was in the room however he/she did not participate in the visit. The patient is located in their home and I, Dr. Carol Branham am locat ed in [facility].

<span style=font-size:11.0pt><span style=line-height:107%><span style=font-family:Calibri",sans- serif><span style=color:black>History today was provided by chart review and patient report. Cancer diagnosis began with development of acute renal failure. Admitted to [facility] with this December 2024. Found to have cervical mass and bilateral hydronephrosis. Biopsy confirmed SCC, PET showed disease extension into uterus, bladder wall. Completed concurrent chemoradiation with immunotherapy, followed by brachytherapy. Admitted with complicated UTI earlier this month. Treatments have been through her local Oncology team and [facility]. Anticipates a follow up PET in June. [...] originalna me=Allergies recognizeconcepts=true spantype=section suppressemp ty=false>Allergies</span>
<span [facility] id=[id number] macroname=Allergies parameters=ValueIfNull:NKA spantype=macro title=#Allergies(ValueIfNull:NKA)>Cipro&l t;/span>

<span class=clinicalNoteSectionVisible id=sectio [id number] internalbreaksection=false originalname=Review of Syste ms recognizeconcepts=true spantype=section suppressempty=false&q uot;>Review of Systems (Palliative Care)</span>
<span class=clinicalNoteS ectionVisible id=[id number] internalbreaksection=false or iginalname=Palliative Care - Pain recognizeconcepts=true spantype=section suppressempty=false>Pain</span>
<span class=[facility] id=[id number] macroname=PatientPainScale" parameters=LookBackDays:All spantype=macro title=#PatientPainScale(L ookBackDays:All)>3</span>
<span style=font-size:11.0pt><span style=font-family:Calibri,sans-serif>The only pain she currently gets is at her nephrostomy tubes. She will take Tylenol at times for this, [id number] or [id number]. Feels that currently it is not severe [...] recognizeconcepts=true spantype=section suppressempty=false>Bowels</span>
<span style=font-family:fidel Peck serif><span style=font-size:14.0431px>Has been constipated, more loose stools now with the antibiotics. </span></span>
<span clas s=clinicalNoteSectionVisible id=[id number] internalbreaksectio n=false originalname=Dyspnea recognizeconcepts=true spantype=&qu ot;section suppressempty=false>Dyspnea</span>
<span class=&qu ot;clinicalNoteSectionVisible id=[id number] internalbreaksection="false originalname=Coping/Mood recognizeconcepts=true spantype="section suppressempty=false>Mood</span>

<span cl ass=clinicalNoteSectionVisible id=[id number] internalbreaksect ion=false originalname=Physical Exam recognizeconcepts=true span type=section suppressempty=false>Physical Exam (Palliative Care)</span >
<div style=rkie-ctcey-bwtg:none>General Appearance: Patient is awake, alert and oriented, in no acute distress. Patient is dressed and well-groomed,well-nourished with no evidence of self-neglect.
HEENT: Sclerae anicteric.
Respiratory: Normal work of breathing with conversational speech.
Neuro: Alert and oriented, no facial asymmetry.
Psych: The patient is alert, attentive, and oriented. Speech is clear and fluent with good comprehension. Insight and judgment appropriate to situation.
</div><div style=bvaf-xbyja-dbgt:none><span style=font-size:11pt><span style=font-family:fely Pecks-serif&qu ot;>
Comments on Pertinent [...] the guidance of her local Oncologist and [facility]. Please see below.

<span class=clinicalNoteSectionVisible" id=[id number] internalbreaksection=false [...] spantype=macro title="#MyRole>Physician</span>
<span class=clinicalNoteMacroWysiwyg" id=[id number] macroname=LocationPhoneNumber spantype=macro title=#LocationPhoneNumber>[phone]</span>
<span cl ass=clinicalNoteMacroWysiw id=[id number] macroname=Locat ionFaxNumber spantype=macro title=#LocationFaxNumber>[phone]&l t;/span>

cc:<span class=clinicalNoteMacroWysiwyg id=macro _[id number] macroname=NoteRecipients spantype=macro title= #NoteRecipients>Axel Palomo MD</span>

</div>

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 <html><head></head><body><div style=text-align:center><span class=clinicalNoteMacroHighlighted id=[id number] macroname= PracticeLetterhead spantype=macro title=#PracticeLetterhead><img src=data:image/png;base64,kMALEr0WHqwVAYRMNVeXDaXORQDSWYAnMXEGOSL5Sp+UAAAACXBIW ZJUEQ6LJ ZVOqXYQOw4oREIJluaESPXZLQf5A69rSxNfo7KeVapjcSFYCYMUMH05gLGfe7K4UWKfD5yxVELjn27gP CcyDXRDNX5bMXJKTFioS UimWKC0MwXakdycHTEyKo2wQRq6uY1lbMY3UZW3zExxbfk1EGNjVD2oMVbyzudmOIKiScLsgBz7kWX4h s8cBOUoMpDkZP8OWTGvo bVnCp7vBYJoRJKnCgzzKTH6BYK0YEU3EPQkOPLqRgF8WpFiHRJhXgIvTmSkNOPfHABiFBBaQwE7njQxR bKWPiN3lPyrtkhkUKF1Q um1gCM9An42g4qgdvLvi3HmDgM0HXinJZYjBvYyqgIoTDT9izGugZ4ftwHtCoH2gnPlJpXsu3OufNN3j O3xEHPzYajmYx97xY0pQ oZ8kYaspjm8lXN8Kli4rQW1Ox7rio3fCA9oPO1oj29jyXLdCsIdFK7rHGcafA2bAeBiTJQfsDPuGi5nu YHtaG4kpmfgVZTeWWmvu JMswOLwCY8vRxNyoD6pwcU5xQfryD4tnR4cKJDraYWpPd7zffVaTHOjKrXzU14mH6Pnx7Onk1mqnM1kQ rJyQbX0jZooxpd4eAKMI J1bxGT8yUhhO99hNsIgi5TmIeFiaK39IVAjGT8oW13vRkYlhD0ttrT9z5XJxaH6Agj9mPY4Jo9pdm5aQ A7xDX8cb23poDShIuTxZ H7xAKkcXH0CMOFhbUMyXQK0TL50CsEfiN5wPoAbLIP9i4UDm32eBULDPI0eJWLSpR77g3Mli1HkInJxK ZMbRUCcvC99o9SkONObz A7aGePwFNW2PIMrtRK7KbItCdSgGXMfShlYXRO1Hgr0UrTyVHX8OMFaMEhpsPgIt1KzVdeXBUYlJONyZ UVzHIPhAEH6GJHpAzLxQ RE0SdIoUnS9eMB3RYA2WWFjsSHUPSAaCSDmCAMdTMJbUTX3GGAlUbSzVQW7EuEyAaOmNdfkk8OpSWX3Z anyZLndO5HwMzApwOztz K1ysA5qDwScaG4qCO7xRY9xVtHbbQ3pDZ61XM9kwNYbF2GJKX9giZ8eGmeuSVh9HESnYnLpGD5xNIKpF YT0LvwdXPm8MU77NpM4C OUqBbUzCGYhTCabqB0VFtGlA5RyKF17HOM4ScumnZ5jnHO7BQJbFuGaHXGjWxzcQw50TVN9ZSj3FvsxT KSrZtLcK5F9XDFbNnQ1y WVOEUnKxxbtmV1cuKWjX3LqQZ13CLS0EsghsO8smQA0NZJpOgOqOEEhZmsnYy52BAS7UEg9MhmvAOKfG eIcT7V2SQZlIw0jEVAym 1Sqf3rpgMpAl3O8bWAobYKlN3AsqG8kpy6gXACnJigSCCt+JDeqVFJ3yCk+xE8yFvPkVWr3GbR9L7R7D RAaHJQuTBY7BRFoTdfEI FH6VyYSOgCmUHcmaqHjNuehGoC8W0BqKaoNOAh+LCnnrRzbsJ1eiN4kUoKaT8LrOS24EF3qKYU0f4VmX nD1cW9iBX88MUlgfP2iz J5fJDZfAtyILEL+VMiuXMC6lVgsd0OGkgY5THG4aH4jFMHupsZusNRcMeYvcGV0fJxhvwM1BU3mLLoYC TG9qLZfuSvbCwjiPkKxN QD5LTW8GVOiELZbZK26SPr2FXZzTKpfIRQfLDE0MrVdu0XEcqK5c0byre3oQfFzOt9pFG2oT8RnUWdeH YksRC7dIorsHTWnh0ULl cA4a44fvGaqefFBX4EzdV5cPDXmEqTwDBhucK2hmK7mQLEqKuFqJD7iK6rgqQ7nfYbsBy0pKR8sTMG7W 5KdSiK6C1wfhA9NLpnwv 3Rvcnk+RFvczgQrGxRol4VblJM1nQ6qJzQ9G5XzZfdXVUE+POaavXx7aAXwGCLrRpZ7L7odYBFnQZNwF M5wTOCqRi1+xxP7VCPOW yBJREFUeJztnXVgFEcXwN/K+jA5aCW3EPPojoJRGh/hFRSqhVxdSKRhAopfjf9SMOshNIRbYYusH8qo/ KJ9vf7GchtuHaMQtwQ/u v64b32Qql0+nAweAlNkHPDiQSoxAPAlhNj7WYhWNtBkoKIgTBkZxZDXnQBeGSabSBscSCUZlrAAT7LJb BqwwsJgMKUGrLAwGEypg S7pAmD+F7MTiGo/pbuEqExJ9nWPfzUFk2xDRU0lwm08OYhefWLKf/mupV2aKE0VFtMw1lfSBv2l8ii8I MNwLIMQAiBIiqJomiTJx k0a/lZlIjCxOSeGTSH8pBpE39r4z+chaWoHQ0C5AFj7HfRZ8aTFst9ULAShAJHGqBbIpMxH1nqUZyzwO ul5fDVESkwk6aTYHThpY a0I31DJDq84G3DPgtrIvx9o61htOqJdimWF1aEQVWVJUf2NWqTxMSjYvEHNn+LEEumob7+Z+tHGFZ5kD BxSJvoKb9Fv+jSlC5Myc 1XTh8mr+8ef/FkP0YxTxOKhnjVJCGEqKPYZPPOjrew89/oLf/5BkMSEiRPH//TEbRNxL9jBKpjpjrl+9 bpXj+3rfWhsCl2d10Q6Y iLM48KXMPHKyWpuHTe0lBfZXZl1gyK2lX09cd3NvwP5B0QJM/QkdExq38//Y53iBVnZyB0L5cxVfjVtp swPDJIxp0nrtn98adnDC j926qS/v/4aVHbgiiFVXCibRDKvME4Mai9yVNc3wkBfaJuqyd1dtbWyqN+/v7//cQNjgm0mNY+48+jFq 7nnl6XSshd9rFcoW+zet nvJnEaNm/beoMykXiTNxwmyMnfBNSEjl3zTzA5AElQ4/KCEDa1X+z8Z20LCHdVwQbnAu7GVg9xxwpY4L rZCYTAYDAYDQRAkSRIAH WmnHXf0SHhPFvyGDy4EY2hCU96nOFFe2vDNr/hctRGwZmzfaP7IOpr8oJEpcux+qxuX8NbHBGiXGXAaG SerYA9HXfWRFgQABpddZ 7IBgIy2k+3EMf9+bOiG1adfn26xeZWzbs3Es9Nb9NaPlyaSy6Mm78N/rwQjJe7uALaaOBsekAq3/5men e6YbToq4cHp+1WrtvWCO 5erXpOkKYNWm/+ZMybWGI0icb95/+O4Q0fKet0ZEVA2WJxcUuVlu66Vc9U6tsQLBpCXquf2+XlINy90t qccWqxjGhLYAQLgIfk0J vr1lotXMUKu/k7hyEZ3T5ldf6611bLUQzsYVOzUXj2pgen5te87xkVJbKlyZISnGKPKJ9YlK1pA6Mrte WdOnXocEUGLxEHNWrTuO 2yns6ROxQkg5jS0kLAyJqh0fjIu3FD8o664arHT2UzlnPz3kAm67PR2bd13z+De7GJuh/9+JfO65di78 b611l2Kl1LsbDDfh1/ft h1/mYx3xI75kFagQOmAAxulDFrQ+/j7wNb4pfrsa4lPsfSZEvofbozXxAcQ9kmspsT1LCiopUXFUHd0w OStOnRZcejshRTNpXTd5 QzDH+GP+o4e6+lp7zWKDgmcqGpPbeL7eE3cQv1Qssl50ciUnseWp4dG4Ah9xnXp0I8yDd1dhXmTyhPi2 Q91uehIG6HKNGIQutzdT DBg1WgBjATkU+7SxYsFicXHx/g3jIgi9JmxVOspQt5pUTo08ssE6xlVjtuAMpaTFuey12DjrfvjZTRwV gmyZY3PpFHaOXk198XQS Htux77W9EYwCkO2dfYAu2x5m2Hn7ja3GyqX+W+AFRYGIYS+GTmqnI+ku5finV7Xyt+C8DqYRyNQ7UJQw jnHkI7EHxU4eTqQn8+nt 7x8L3uveX8ob4VYbTHbXbij564oD+cBkoqeJdSHosT76QgkVc6qWOghlOiE+a+Dv0bEXBVmMog5jpuUm cNuNk292W0HiZRxPTrko GOzra1itU2Izl9sIIxDz8xYMYUAMtFXcOs6CDIrGeKDiBa751+HRz9+WPGSQx6aR7JW9gy1HnQyEZHs4 E2L281ICcqN4J73O8IXL UFRSdMCUcE44LRME37idqgP8ghRbxzQxWXyPqBfd09orl2plbuTrS63SmW5SixCvc5Zwl0dKtKb7i0jh 5hnSN3gOGL59laUq7qZS ln5YamlzkJjBXT/WEKGUDo62Wkoe85hl20SxJASjC8sQKsS5qgfJ/4gvV4/h55rDTJUCm7Ft5HuN+9Iq 1FH/5V07ENnGMLl3vyDI Jjha282k1/nj1i/DUWRVOkEaBfmYFUMqMPq0MKsr0Ffn73KnO/R/MLBCgsDqSmpDMPUq1+wDHit0Eg00 aKnZwfStlAEObt5b6mJ+ /ShkKdPluy5t9s9PhLAjJvsAteSNa2YUVFzIo5w0CJ6/nsuw17iI3+1VTFXWdO4uGDofAZKr5lYSwe8k aIDAtRJuY0z6SE6ALFhM SX06IRvAQjGmggRjXVLAXqnQw21Dv8+/wHv3kQVirf0lmvbwCMfrn5nz64PdJ5NPj6+6Nzd268RLeFvz nbCZKFGI+U8UMBGDSGyU wXFtNgUAXqo2PYEx2pQIas1d7a6jJj9tYglCRRlxACEzde0fj39XcjxUp2ogd1jbyl3wLfsNTnxqGxdH coZrq1nbDB+vWCFhQGKo kiStHdwBACTHzFB/GUvMnFT2rv+azYDD2iild6UQkchaXvRjwAZLFubXKoP7JIg8oXU1iPKmhDsgbgR8 BAEIARAAAGERqPRaNSqP TVwQwcDYTE4snCbZNkEdZEDoapHotGX4f3I0tc+3MwCQHs6nUDmzqBj2OEvyFara0eYiXHrCktKxQ/wR ZCKZlx5LjfiIxuXjXSzr 7NuM37v+oUfa5peNd6sHBbrdC7Kag9p7bBlXeuGPUw7UjlgxOyHvbyyioFiSwBgAsATXCiskcz0lbh75 jnF54vvIVALD0Hzdl3Ew UqlD+4/dSxxVqkh1Qt7n39vPfce5utQVWRDsFHBySmBYHPIaGCd/HH9yLd5mhQIUwxvXCNCr5zGGW7VU WnpZ0+rVk3j1Q3xm8Agi osaa5VHnx/loTomyNMng9qTUskfqUvbp/AIKl/Bf+T6wEQeWQHwYLGH81k4E7FklH47n/y5e+A6Yd1lH +hzD25aiyFZKR2h9p604 IzSloVJPBWZcyeoIwYt3pqo1nr49HAjk3yoMifCMbC2gUTY6dbRNIIDcXEnmlcWeQpKF46+vhzLpqalx kyipx9y4fV+/S/jXpbxK tOle/liLs8mSDav2NroE8tMfalbrFlPBCtz0fg5WG6/SJ5OX0dX4/HOCQvFpWMMUEe3CZSN935mBXc16 yTcJ6fLwmuTtZgPjdVQx nW/Uz36/Q2ecf97616/f/ZsyJmzi+jVM309trq30XdDYe0a6SwHdPdVbspR0EzhXlw/sqI8EFAYDE+io 8t6+nPi3jPzxDpgllgA5 rwbd84R3hqd1U0++nqRX0sW4kL9ZPKURM3PvKT0pu2RVhZBmYSYmWoE/jiUKabdF2x+vc6TUUt96JNhp iJfRgpcHZymTZuBEGIRQ hug8McRTDknz2dsT6e5MipxCb7zz/cr+/g90WSZTKz/BuoKoBTy94/HMB7pL2R1omBLZwu309TDFdyFW 5pSIUPgOBZhT29AuOFvb V3oNgn2b+nvubxo9kkTv2qL7cVH8w8KxacNVU2JbdozGErMWfl0uSfzj8YgiwiW8+zddyIRcbGJAwZ8I qh31kVv7+1tu4Oj8AIa5 zGPGJ6LP5mkkh2nIF9UVKYZMdEyWGSUazhQYuSyVWPbzUpgCl2leGuNke19sidbJGyZYEEYpTFwQzhFD E2TB/ntRQbmr7GPg2rXw o9Z0AaoFqo3A31m6g4cH/XeTHIXozRmRwl7CGe24ZeWilzJhOry7uh5w7As3cqTiLeMHizWuk5mRuq0z JS2Pb351nsXud05uLjRl Vf6jIlpBwhJ/OVy/675vx76qFpbqhnxIr3MtdyHU5am494AfRvbYAJ/D0YcTMTweci6hh4amtSZN/62f puEf9lZ90xGc/0NRtbAw jeKAqxE696jQXsWN2pGImxbx2Q7F3PJAU4dSk3Cn5sB0Qe4dhK635gLj7lJJCKpto6bDBpSkwQryC+UW aolDe2kIUm55jgo+gxZ8 veS6d3aJtvzW6d1QYEGTRNv/yMqzZBDHfHTg8a8v8ivvCoPh9wwBWNpx6U+7y6Du0NOCU1Eeczep7Wtl Lgr8KkoQPDO+85E9WOVy GXkQauwSEMaWjfDFnzN8CgTu6rlQWU0jfYfKZFRYkRodI+UqKasz2kSepyOfbvfv+1XuibMQNa8Rfcf+ FhX1FaVk7nLgAIF/wsEZ GqsL4zl2IS0bibFjP8XGG8lCgGx6O//KHH6tsOFKpdxucvvpIhbe8UyFdvUESXbDDMupXvYwKDRJDw3T cOelFwz30K1eW2AGnCGd 0uXbd+4hqFcHuA4rFljgwNbQ7yUmSAK3KlFQoMdCxQSo5HSx3Vg5cnhejnLFAiNG9Md9LAwVLoVXcr6N 1MIO85Gev8+M4iEmPY9Y j7oH/hctYCZS4ex486jMHv7hZiHdEadKANNJaTZ7Ga7Cr1+QkZ3GrnVq5EKzBTo76f0D5hr0zh23o1IY m6707ILVyccw4AW3abGv l+Zp5c4OpF42vM+N5CtFBcJLWU4ShwhyuCunqDvY+8JEFwbwRmUBQOgwj5+Vfj5LCFHIUp6AzA92g/3B U74fKvLJxnKwhE41NRAz bHa6klypnKYUAoFkh7Z5yCQq50Kr3ZCIxBpBlZ5DIOluQ0qzVvM4Gci0GWyPcuxnY0b7jCgN+gll5Ztu pX56dmEIctBx4bfEGsbh BI7+3pd+0iHoGscz36BVEliycGVEf6PoAaML1yBXCJlx91etPUsLx5BJTVCmHRTP/Qpuw6UYeiKLlNkY ty7fe/IvETRwxv4oj4Tw 4YcqH3DLAapmXJ/1YXFgrGUKh37qWKpRrU1nIgyb+JbvBEUjY9ggTK28jwD3+ah7PYngeHjxMlHLsQ1b 2yHtsMSnl9af/b0QN+Nz mMZQiyR/JViWxKg3LBsmahMyFSxGloS7W8okb83voZIny3RwijDoqa2JkEHcis4I6MDFp1Bp233A/9Kj NG4f+8+vjHWNW5zFTtMU kuT616FluJV87zuluKzqCYJyVvUYyr0u6sNFwSUK/ij76JNakqIz77x6f4mxQGgiLptWAAeUwXn4aWrX IeEYhEiaLEILZyvCLvuv JmHkoruAxNFuNOOgjwTipRQrlRhr3egZvcm3Ucwed5kP64yvGpe9zMB8eSitTlYSo4p3VwHM0TNMlVnY sAHGj8ovPjSsVU6Az5Ak QFDz5P1ibT9f9yorAeu4u/5Jpt7GvFu7IgPMVSZlgQAGD9c+uGaMIjivylMrwzERiUqkR3Aquw2vKBwF lglICpRIUMpBGKSz0DSs UjY038xIQHyU4KtY9akDR9BeMF+KFJTdJ3iLbwumliMTlOvZrjMZPBcb4bblIdPMCtSixWkld5fAZCYO 8J2Zc28I4PE/yz6q/E2a YbzmMT0WclqDuhF5uS2gPtYobNX69r6/1K2d3P4tjZVXMLdeA9O8aY+CcLIHVLrPYWvXFZsLRnlg9AFU loY44GXHoz60sWTbRghO bQQDQgKncI1ax2sknvH7Y3fbrrhSPZGZUSAoeK9Jk5ZRoWBMF5PLACRLOesHK7RhIkHouC1EWp8V0ec2 wLdnaeTRNk2OESJuHvQP ZUFw4Gn5Hqo8RaHvkcUiFXgmeAudq5zAUvhAiol0w0tKxaGGRtz6Fl9FuKFJM577EgQO90CPrgYjt1Of jcJczNS+fPyLONZcpWK+ hshyvGXGLvEH7JaJPYEEsWlcAydjrVS24QQL5F8887TQ1l7WS/j62++mjzZIy6uVQaawvTrdmpGxMSYP KfCxbYVM1i24Wgbro5pZ jqUSJkhm5TesDv2Q61MXrDZMaMVAdgeo9PBnQqQNLZsF2qznawsmcNK96nlN0kBDR7kzcUpHPuzziW8Y /IDNePacLQs0TbPRj1Ib 8MLz06bBk19CxYwzpRF+ed+P3bB03x7o/K40UA9eZ3Ay9NCGV/PkTuWcas/Wid1e50Y980qJD+izx4jh JLkWy1hvufakYTYDumtp YGsZc7jJQ9bSnSbSoaqL6d18ui1dpzYTqIxWjlOOaxJ5JzlLKHc+UYzGfyZvgMXSOcEe5JF2P2bz56GN PadPkqI14XABEtTjWvSX A7CaQuGZO19n16PYIMbbeZ51Tq6o0ap0P0XHSBkaNCZ/zaG1MsrF0zXPPBoiefwZjXDgqy4NNW3YFKgU sEp9cVmIF04q+Pp+ROkV U0dlLPVboFQm1TxFU0fSLL/XK2JQq6Pb5BVtto8NVkXWlElVROt9vmojU/0uwoOt1EiBLVLdevl5u9my 63hqBsaHJouYQl134LJ0 +Kk9UMBfnluMMGj+bxSFWb2Y2YC2+0d9nBl4LJIkF3OJLS1uTQq6mXQj37fZa/RfTU6CVAjyPJGUCLr2 ntIYhn9MrncYVHXUY0Cb Bernabe/Zq1rdl/JIFQbPRjtVpPUJZmr7//7sPJNp1EDmIq0s99O5EqTo3d4baZneCPJwiy/ky06NT9friru G1UgWLMQg9XY343ieOym 58XlYrtD9X1oIT+U0nfyFxZKGM/UuRqbznijfntLo2QZvCwvRMyJySdyU67c7xJiSxtl7TBgyUroMrtr 9Wbf7Vm/9WxC1tATMIGB UASCNA/IPjSKhBKr7VIlR7kwO5GZnnqlcWwbabHXhZGTgRlNPZ0+Ipg5Ct11j56R05FsT4JqOz+cm7Kv SwpJk2kkg8bQ5a4hWIS9 rsBMLmru764n+K1zuDdW5l/Lbkzt3jBvOylsz5oQHn6oUkXHM8uIMKXBLMUJfD6l7JwOKNlf6TFr7gtQ aVMV9BAtDktDngzPF64H w24UxWV0j9LuhWbQk/5W5q4shPgdKo5x4pvPGTrW720mCc5LlTt47qApnstrCqX70bZu8z/oYhEonbtg 0Xc7y1kj1u5XtGzKnooK BOjW1hsSF5Ch56AYhpJBoTe7ZF773S9r/OO2SIpJ5shegkX4Bv/323VTWnDXp1Rjuh9mP8Z7kUQTjd9o p3/F5rJEKqveBJIfhP1q kuaXdpRwsAh7Dcr1wl3ggcktEpyzOeVA4vEBSJJmkM5kUjDhuaj236v32hpQSG3/cdPgbZONY9DKpJSB ATrt8JgyuBq9B6VBdjob 8r18+RLYZ769aLuoLtCIUErTuGrgCYiEFw7xfW3321WOTwqS4px7eRj5X1yj1WgvIBvT6PYBUoXsPxxq RnppEisTktiMlJGjxu/8 8/dPr6+ZJ61iKVTO5993frggIdEbpG14+oh7QdmWGirCdqxg2xmneYg3VT3L3LcqTJVLP1ho4DdjPSYr N+e8YzjiqeKqaGX9871K Aw4xTGJ9wWpy1YBxiupf4ZhJKo70YEpbGUobC19jPy79cAg5zdMOIoDW3YIYLUgybqBqKxe/njypZOMR k3L5N+Nn/Z98EYdjpuyz DJcxGVKr7Wm6FwlagvSHOCwNX40/HDY4PVM4iURWeJUt0mAAEY45Kpe2D022CFvr5s4fO2wsKEvCwIpO Ne8ay+tWvVhEwwRksjlb 4JsAzobzMjlH5e0st23Kom9ukobT1o3qGZqftWXZ7TRevN50YabJifSHbHVxQ0yn9tSzSt2RZCmfgZ9o YSHtUZNgNKrAkQF6Uhu5 W35l8adiqvBbxwzkUmx7Kdmk8Jm1haLAReMKcdNZm7gKoBDOQLf2w8ocm4EBNy+COvbptmeS1WyVHKxI 2CtHWO4lsIX85rT+z7pd cKKpboh3+JGcVEoKwSnrwokG41dA9a/gEtsejh5FBdO8nWm6HZ9o8Q56rbykCZbX75HO6/CWsCUBrDCw kBiQgJBkpxYqtFpxBWr+ 1YPxSi6VUfb0bbuiStFpqOYemC6UfTPKdEwP4xMm7nDV84iE5Q87/sxjr//WRGHoiVciriGHeqzy7eDQ NJvW8OvogKSxrGy+O7Fc 8gbWNV7pZf+0/L1alicBG2fOwYdxBubyAF+RQ8AWXKMngAtVfeRprsdFBQOj1WKoR1rUmLZDGVi0Qm7l B4jLfKhLAZXDUmgYIEGl bPWAyWog3A0UXZUVHzLo+wc65qcAbwTWncnKwrt8nZUOlY6/YvXbCbp7sEEagQ7azAGo9L7Qb0AxQP41 w7CVXTGaJWWJRAa1gcp3 QTHcazRaDQaGIM+6inPgbUVFRfm6Kz3xSgi39tZzQHMShKUKBORH1Ddcf6hNVea4XM1FlOvuqIhBdMYy T1aWEFPYMpJRh7JdqXIc idIIRaO3wqKDqZJL1EW00uc1ypdTUCKoKat3Zc2Sdm+pbyOaa2C6QK/IsQwokml0T5aLLHTRvH3QyGh9 t52/mBmrVbIN5RDmBvDC hNRHwKjEPObWOhjYioYbqdbXbQQtFw2GlRlyXOZ6Fgsj5mqBFi9c6YIj1GP+IsGDKogXjFTRNu1P+0hj cLKHvckheVatIBaQi6AQ IGFMMPKQNgqgVywvmY2eunbVBTG5QDQPaICbkVElCuatiz1EotDudAvcpqbHHzVciLyJX8i7355b1gqz JxzAqrrMhUkywBBACAAA raicVFHGRbfmMXsIUMaGrm3R+nnVQuTkv6UagTjGQ65K/cgnYaoXkfFckijfpc1/ACXfIibNbmTX46eC hrfsV80+RFduK5NTnEuX b6qSR07Y0bgfbuVodJwPpNdnl34U/aKZMlpJjF6gUDKr4mMFoXaXXU/My2phtd5jx7ejOJdo5qHMhjqB SSBkYOSVsiYmJMl9WXs8 AQmsw7OTeoEH1MgEJXbX9p2EDn7VAl1qvw0AuM0UDqeTDZwJjX0rUCmhb4qtgey9Wqb3eqDZMbvL+tHC ATGpxHqHAWIpcCyYNHGA NBCLThgK6mzkwQyXWzDmUKuiQgBQZDjCWwcuTr6F9rVqaVDeeY9tcnoulTCqbrn16wOe3gKyCHKOLRst TH2D6xWNgyxeUVYSktk9 EjMQNySZpqOumdp9s3KJJE1SVx7g3uPz2EfLkB80sjD/CfXSjgWPUU8zPZU9wjw3TnFps3FGoSRkMjAD AAGPVGjrsTGjrkdqmscD PtirwPdMD3QrAgDR0dJM1oYcVIajG3hjd7z22zW5+/SosAq+lNjg6bTJ39S/xXhLYzTspOf3C0BxyYo3 SZakiY4/XtaEgEAcAIhH U2fgNNQXFB1RrL/S31g/m6rxXCLgTzTxs1z6Gaj3Sv9hiZWmHsJQDmGapOn3vZOO1tvwHXLZK32WJJVZ goKY8JBxFJzjrg0/Rw7Z 7e8g3+bDnlU0cqaQh96ogD5tFjUu2C6g8vMGFZwbia0cJKma89+FaPXAfu++CwZMGQcTLjUu1W45MjL+ nKDaq94IXY+3nC0jMyQy +U9e/VEAqEg+nL469v8x3gQJwRpjw1uWoVnGOI/W6gjSl2egOPa94LVyHSwq7JGavTfWrgZaMEqDNNu7 YyuqoTfNZ2fadBI5caVL gsl0nn2yVIvCj63NQAR4qnGnTL+ChR58xcly6No8PQ7Gbf/8cVz8niEoSgQQSdi7uzSEHLmMV/Vh8EtL QrJvBReek1aGzNrvpno6 vClLJKSXP5LBdd9JiYQeIo67fz2s4j53SNFEgkaFftDLSjIfBcX7il01+tth78MpyH2xRXEKrghzgiOZ uIcT/9pe/yajc4kyD86q 30rUWemNBAQQFbJOvZm5uoVJFMuAkjUHLpw+2MmdydBoTmxCle48sIHG9J1MFkOQIHhj2Es/lgh5nWIT NJCYWOiUaJRT56aVE15+ RH47rgPuyiq0R1vFFrbzfYnuT8mGqcub1qGzy3tByoOyY1+43Rsu+nE75YTkgjkele2Ukx1/l8aWciRV adQTaIZq85UHyNcy+Z+m J89FHjAOUSTOj1KVW7WAuDq+87ZFqrXdm2UcASFLFICHJx8UKTTXzdhWdDI8xVGEZGYMpF//rZin57pL IxYktv3UX/DnINUfqz7M Q4rXE5oE+e4yGTbvx9VPsvowltGOoJArDPnr4MizdssjKRA6OI9sM/uCxPikFCkqRykbBKsqtkQyWxAr aBD8NJDSQWDJVtoNvy6/ Yv7FUliw1Y5sxJFFaUBnoBnw2E/c8gk6qc0wz0BNrJbFWscTQU3um3QpnLEYsVWgag4aAwTy/FSyBgAr LAwFkQ/frz0l1+uh18Hj aFHKyLANDfzecGXmkwKNCYwHxSFxZYaQz0SAFr0LmwcyqUJRTEYyy7UOcSEtUZJDSWTPqBByRJ0Twctv nvidiXrILGkAmsAB4fR6 a2N5YYXrXo0zBZFThNOnIDEUOdG+Te5Eebsy49zU8/1fmJ8Z4ARY1ZTfCoFWck/LxDhVBSemdFjZK2gK CZPqOM6b0vubAaUdh54j txcDhrS2rdlkVDdDHVOlfpQmRND4UXJdVpE4BEu9lw7wdVrkwmOoKaq3CSvvhxPTOJYfkutCXdGt5ezx wj09gaP7Pn0+tPFlBqww fUIfJTcID6Ar0fD1Wd3WVri9Tk6VRp2ELdYjdWli17H4cMdEYlQDF6p5oLH5SvsyWrTOZSjR+fJI26M/ mHixMmTEEJZWVnZCkVOT p7KMZEnvZJiyTO9xQpRYqOgyXMfnXiry/++/FeDt3/y9/MYF0/QaYqIQAsAIdfdq+oTOlUn9FX13u3Xo qSzmOUc3dMoCRzXugXtE 5EPHQ38Ca/tmu3fff0uMVn6kRXSPIpYZTGiD2Mxi4tij1dbtOj6Crbz8uXv4DoVVpOznWW9lNIN8dVBP yJu3+BU7gpXXHOccqFyD OMCxJhsEyrOMJGHshPrUGP2bI9lBqt6bdg1n0l+Yzb37SEcA3ZAmkKF1c+ChhpeX2qrnwMpoMOfxZYZN 6+rrRRodHTjJFLCYKCVC tIoB0Yj26V3JKVMkz2+p4wgomEThRMuXkv5rkMA7g+i1+t/XcM4tf1/GSFEMJjTVYpAWSjOLFxGju9WK IimkUDQqHHjeQsW+vrhL 7TuUe3rcJO/UZwk2Qa4+4devONIWz99tcAGZTbQAzeQOFdxPV/uuApPk33Y/P5reqM1b9f8/jHf3Sgbm w4V4tgOFJSeR721gd5lY VQLTwPE/KNfvTXHYEcWoFvVuLODUEmyYUPRHsBDAFnOmtLDKXSGpkt6XMXHkUWXFOldJMFRDkUUTXoQs rCSVGDAnbd3PNAOiPCJO RyiDJOXEySBPSzLzdFZOROXbvn00H9/Y/9qQZse1+fZSvZTgWvqXsyCI4To80EqA3fuctEpv9PzVOuKk 9Ny8qj11ft8+/kVE4GBf XstEIRedV2NLSGL0IT1sUaOGlomnXLCGXBws6rO+c/o2X48ufgy4fp6C2nBttylKW1HCLPYvc9ZaUe0v a4cWNe1FxZih909ntNIx wc6yRisJs0sjfs4eeyyyIke7lEml1lW5+dKKh15dRLm0oTzpYevjKa1bLkHWGN9d4z7sYt02XNGQi+vz t950k8Mu2iBXQRoKcTW1 uskBa7d5sa9p1Xy1TjLA496mur9C22LKTk8TKNlh4stFKPSlu3UJvHaGb80bkkWWVZsPgBRr5NhqMhbZ VyH5LorrDxn+jslxvyHS AuIvIx64iZHnpDk6mVqq3eBTPsSTwKqcGdzhbNzMr8FvEyFK55js2OtxO/nJfdvHQzC6Q6etEROg8q9F CzYmYJEveAi5ZRcJs4GW Y0bxiQeWtYR3+0m28ve5+LLpkyPTOhx3RvadlgnPyLGXU7bFz542TiQEdC3+PV+hfcvy9bkxpkZUeTPn 9JF6hYVsg3s4bUC8v754 KFPX2HZW/V6/ZGDh/zK+kgf0e5vly6dHCs/f8tHiUBOt7pesSXB5R++6dS5c+Hyo7/4hhAAYpPKsw8+e rKT0IgGU5pjXOAPdSIS8 WgsX96/Q6eO/L7aYlBDwdjIu7HirrHtJshkQjoXd5HT1LQxlRKsavJncSbfRCzEvTzNDj+PHVOcWFOmT eO/aJ+bm/vj+AnmbXnMf 9XM9ROqHq9pc/0jrhal1r12pRtf85O69EPB06XF1ZfpLf5ylCM/Ln/z+g2/3X/jFWsWQkzO5k3spF7w4 9txcXG/r/lxK8RQ45/Salguero 8l6Ok50AoYM7ibJn0F8TsTys3tu6BTJgRDOmHd/e/VmNsEf8sy4St5vGh3mPfFlzMnBZmL3dSZQeLZSF EGYdQemt9joNu21xS4tT xp4yQbDCQp7khED9mVKzHNVz5r0/XcOUWIZX95m5xUttPpfQuXHb6q5Q+WfDbfPfDk3duSHt2REUk4nu HSy+vXZtAEPhFdQLU6j0 angzdJom4UzO4Ah7oCygOnxh3awZeOYWyMJUM1ZNvJCp4vf8cLEWKNJdDMj32JPNyUUPY4+xBe09Wg2O RSzZAp1jor6iMoiDkqdW z6+EUivS1QHEN255dIIU9BaRkvbBnF5eYnBei566+3x8wTVnujMpt6q/oeL591PUdiTXudJ8Vi2VHtoC 2PHDS0ft8RqMVjkwgu3m S7Scepo6TWR75MOp737hTUAof1YwqtJrql+8P3kDh6Nv2/f/rK07tQATqm1zSyDXPhZlhc55NHCxeEna UbTtGkzqcxSIXIcd/5ci Ihwpyf4OOHdzlo+ob8527VzAQ+NWhMeHvbg/q2uJssLxNVOo6f8eh2q+Myxq7OiMCV2emqDFVigEwLzn SmyYTmOiJJJ8jhQEgGnz wiVtdVXFm9y7fdIcnZTgwh0zlOZsrz8efsGKE0xAFuF5Pz7Rx4nAii7z/cfRyjyHH3BkEIr7+fbrHnz8 eSwjND4TGIBHMzjVHAvE Y6HbvPZyWSvBNWz86BIdNZjL1mjrVDEn/i9dqBLBu2RQaq4rqJYb6ddbBQEaUkxkGZGToKr4of2p3uzu Cx3EtYp8iRr6mha8opjM D+hp2TZGXPfTBYRUCmy9pw5DrKdpj6TJv6TsVTprck/bATv6UuR8kMr9qp+zw2LYq07D4RuQHRhdXS48 9qpdbSO3q6g+n7l3OXbi swYT3bnXmTxADumw1M/tniPs618/7zFXF6mjs9yQ9ioAKMLIZ4v+6yLFPjEvXEIXZrGh0xnSfbe2+PrO 8OsTXPOm6L/3nZTrZk7d fRuGGexz66wqf84lEymzGtPcVtLypuFpwcFj92dUFHy60yJR/7Ytr1v/359+j7XSGidaJMID7mLcBMXC cFkU5Rkr0hKazu4+4aDB b4Br7XbV8nNEVaX7ARISaJs9xDRpIiMkfwmjgv2nICGrUzOfLV+/M5yokuq9vNG8VIbPFbIgm41IkgWQ cTGic23b5gtRUUyYm/eu NLdvUvfygIvngeOyncptdJ6u0ii1CHaq18/sVhcUFE/nQMDYnjNPq65WmHW5v7+sX7qaTA1V7wLmIDVI Us2fSYoLxqwOzRZVNZWs jGx5xeXdTSF1IQg6+p1a/HLRAqf0Rg5dp9+RaDQKl7mkBi/5aa8Kb1zYcplnOWRfvsIDykZithM5Ep9e d6FF1gmXdxiHx65PRwuW VMnINZe5fxEE4HCkiIi6myLxh6sD80FOeaElWJO7eCi1c9mFGz8vCYHdwRpQA4fKwz/f/gsFX29DyPCx i96CRku2sIJ1bb11+aNm +bl9Ho59uVjGFhpEZz/Eu0joZqtQ12g1OYq3FFodarwZmM8vt3+NVOvqGxGLM7gRJw14oxp2QTxhLjc8 D78b33zals3c52OYGqXG ldj7ABu51qvXa6supo7A/XNN/C+L4nTg315i6nofVadC6tBb5NUvI0JAcIBGj24v3RB3aU8zr4f+/v6+ oa3Xk9DZMXpYh4bVs8Lb axFix25mrScakvIC+aa33tr6TStCvp6GHEwbMuDdPPzSkivc1u98EjMb7Awbly7O7/Tts8JCLjVX57xs htU+3HDE5Bradj4Av3h0 OdQuINT78ELp6uMMcZ0qEdxC31Itk2qQ6abL/f4+/pt37rN/OCjhw/2ef611v7tVQIJ0MVs7Lvz4/j7+ u3Y/kf+0N07d/r7+jVt2 QjNkRy5R4EgQqkVe//y5Uvzg+AYfCH52ZgNQLLmOnveoatyz+3s902omHu5gqvb2hP8XWyStC/b1nSHT E068WLZ3Iochnu3aXMJI yJGDqit3pRjF6N28asGxYz75cZi56oYqSEgz/utv6/f/8g3Bo33loYIQA1aaS76ZxU7cwAck4xZVQRzY /ZmGKfvg3B0c/Zsf1+/7 e96dTo4wcGNhSFr5Gqw3/ZRoKkiEjNbUIWnPNXzIbe8aV/Uv3j4YFcWdKO51RkIuDhVl2ymru/vvsLT2 jwwtxpHNsDPfVd35mV4i TN++snf12/NBc2KOY+2dStf+C261dZg2GNxipjI94+XlGv35g+nKezUNxr62iPohcCqpliS3Lj4inIHW Nza7an4leYYJF2ab84lX mG3zPi9izRF0Sq14OPtpVMiwmDsTaNK74XP7podbRxKwAxJRNST6pzvI/i2kgU+Oj0r8f5TlHgNoaM6R vnRAaPUDo2l0++v02otj xUDk0MbLaXx09q519YLSIFo60JK6DTW1pagcj9VWzfNhJbI010PH8rF7RsL/QcO/Dm786UKdlKSP/Hww XEECYPf7vQUe3Eso3oh2 SipCDjutgQQLDQDRtgmmQdUPO7Yw0PRV1qrI/4H9x+wKvMRpKamxr+JN+36+AYcAUcn1j0jw4Vh+S8Hj 4rlR56lOW9On0mIbiIpT qoHk23eGayi5fzihHz6ngYOw3xBjuw6/eidr89ri50gs/pbJBjiVcgL3iM4qKvBed44lQYoWWG0FvVzz 1RRpUv84eybyh8YPwMrB ucguxbbqIkYWVXX3vsnIELYxDk/FJgFyJWCSVyw1tCjJAw0u0bvZY1/zjBXJl2vi7wp9I2zAs9KT6/Pu SYvO11dbeICNi8VEtev5 fwCc+fN9/J0tp0CRGbyCY6lh/Ke1g96JftRMt20QYvD2Ig8bcW+Ih8z+blbj+1mljh33DLN/c7e7Mudw 23bu/bnOUrVqIOK2r1Bb Cr4s+Z5SmXf/v2+mquWMP6pTodj/vg2AtKs9XsVdryG1Lq4G4oK6jo7+tJElQlX5Z8WhSklfiUwZ0dFa kjZYaOPAjSgmDSo5vvRR xbh1ir9ffwOAzeXIPxwxaTiY24szn9jNIkHWOuwsHRhBChUdJRk8Esk469QofUr0919v2nKh1GJDh3eP VzqlWIy93nowAy8C0xY4 w+DBNQMrFe/vtUsbt+71qRUcnfGZewqPIQzMJICEaFzDR6xhpclYL9+OVYqJpOMv16ejyisBAFWYDuAz aM8StoNdtVrLnwfhpW65 vqbR7z6/5lQthPgcQaYf0+PBd4+Rw7ex09ZO6e0mkcMWPXXJKJJ5HJIC0HGCC8+zDAEuwb7i6/8PHOWV QGSJIUiEQCIxWKhUFhQO vlZOG9+IODiBvFNk96uMGEX17qQDnbIuDn/z37x/EV+bNcMxS3glmXA+n3pABkk0AyjAE629bvRoz9zG pIkJ0+rpow73omwTBO42 58uyCVIqeIWS3emG8UhHW3yACZtfDE29sA820I2o9+/evWqX//+B5XtHBds3i6vnAtlEujXg1rIfneO5 /fN8mW/gk1VuWKeCSIB1 SRl/DGQ6ziIbqf/UuFnEHRwCD5sqlRNfVNMzO6gyFrIeOWJ/wktAp6uzOk0ECK1vKrA/52aZEpnMBZH5 uGZCMD5k2/EyhWQ8ox5R N9+flJUcIcO+E8NWnIeBPc2hJVw0afEU/cnVi4wI09s1gIaIbapVqxbQqt9/Z/FhZOcZ7Sf38UX7w7aO Wf13yEEoetebpRcMCT+0 UKXZ3HYYQpgr6B9Kh+SWkbv8Thb7ClyXCMuOo/9/gwJxNrPOYepV4L6O5RWb1n7iMNslxBmpoawC2mGs HjfOWr0e1zhih9AWSNer Xpbi/BKSkZk7acMLqIhIwue1+SE84LzPhC+6P91y9uRPYMhkMDnBxrCYju1W37J1Mr404tdxs+6Z/du3 scS1D7uSreIh23Sbmvf1 4Gz2WqMgbHZLU+/xqL89Kdu2NlO188TUSpvexMlb7o908/hT/QW9yKz5+rVr//QmrFNPp4kYMJbGhm7w X9KpBnqDGIJlHtMqe87d u1ckWeNWt5r1GC1qSG7+rd1/SvEukFjR183bZIiOspbd00KJNAvxtDFJbsxUQwfAvcFRNnGI/k53Satu Pdr07fYUiaBagPu2TRZR /lt/kZJRUEyDWU4Ki7/zr4b+PunyMzMTExIrN+itF2NK76ar/tu0RU4Ag+WjlNgDXCCH3Qd/mpRCgQCq tD7J0+T60b5k69g+Ob1m 0k//MAXD0qTNaal8tsI2q88V//mDQD4+vn6+AZ2CCJmsti38f/PGRkZ/FrWNAPN4b8j+OqGArm5aQA/w sEDb++vdfCIQZPDhVf3U q+TjbWpZCaYNQ9LY5nD1Fo0PoFUGsIKd6I9vyl8SvLq7Euur1xbiRRe5r6xZy4heknlFFr0LdyQCybi8 QiowffIAODB/uwGRy0ln 8NGRh4pkDR0wSpGRplH/f7gH+7XTFeTdVgUSXGQ3bbmR4WA0eMRpSvGFj4dp3xq2v/rB6o3HQNR8F9yf MrMkW97clwN3Fw/bldAh bMFPYRdLOhBv9C1bqc1z5KrV3zbnF3lznfuiA8P1PD71IyBIPfCKjbb/Pj4+oT58QqD7Ai4g1X/z7kzZ tLIQmtNBMkxKSBe9soSQ TYBPgRnZxfzVpUyV/bcZtYykzajQn0ETi8GUORHFYvIOnsxNx6DxdP+/JBarurvOpZVn6iw4SdddszPi Xm9KATj54A9IgBarhc0+ sdc8j513KKNG5Idyt5lrX1QESd8A55pu1PglijzzvAVrBuPp4+/MoUwBCfvmwa2XeMVL8TsVb/erXt3A TwRxGRsM9n9lar6cI8zl LFrzZ5rvY/UtUD6DwXxn3vRyYn98Oph1uKjyiTJOzXCZONnhT+HMbLnVsE50oLVG5JB78cfY4qpQLHUn 0Aeq38fQR7LvCTY3UzTZ ndq3+GHceMNRoPVDoWJ+o5mgPr8cGBGi/Vl9Wzdq1df5LH1gq74mbUH7cd9hrdAhs8oWhAfpJ3iIbCgJ d9u/0kUHR30ql2ow2ldF au8yrf83JRkdf3+ybI6MPp1RVmEvI7fSbvLXZHuV5mJeUlrN59HTRXwKo2oO42aKUjdfiBMPomOnBEXs EzxLZiAp64QeojMslzdI 7Sv18BMIWyQWd59D0gdU28cMglO1QTYBCEP72fcSFqPgFcNbNsRthNQTImhnUOl/Wdmgp07GMewk8Ed9 HJpNgRg7dLkeGzRqN5lB uvrli18/n38QT1DFTnRQ+M4bv/goFIJPfcKLqJAnt7xp1zDRIMBtYkEE9Y5GKx3/9dn+MiRABD/5s3EC RM+qGNSoWLFPn3/9/3YM w2lQ6eEofEeLk+Fqf0PcDftWbj0h1dvqnppdK8ry3n+d6LCpbGsy3mAVMwlkfPcU1QqTtIG8x1sIFAm5 BhQiOdGXPq94CccapRuD FwgEJib+P701HDeOytud6gr6j8/+aPVfy0Dw03bf32mWLt1i5czBVAM/1cg+GArG9+xV7QcZQM/ruM/d EERAtNbnCjqLnqvJPBeA FEnz35ejuE3b+xBk78McsBu2HEk5fMiiGNuGq9cIUpXyfYZ/hKXSgSU1Cwto0yXv86jMqQ5IWut8PxCc q128TE8EuTbYsgf9yq71 IsO58OnQkhIBp7kUYM73OtG5h1LSIliRuTKdsArps76fiFzehtoEAkkFO6GO+bt6ZQ8N/hnkeCcQ07wC eetq/8hUFwMLF6nSOz7x zu+52JNgDU0LbEu2cqprE1MmGluKGKsx5fx/VoE0CmDMFkEV1knbGCMfv0iClNbMA3ro/L4ib+ffi8zz 96nT5/mZH9Av/2M06xmY iSYw7nhGfBPREBLqPmVYk5qJ4mQsTPPgBVEXse4VPl1tJJpgynRfHve/Yf4GW2gEtOccG1KdBaqlxPQy EfehdDqLysxSxlS8DkeG rDoIJQRsj9tytpqqk+ysRSUoPFhNnGfHNMuz19/hsoNadNLC26tzAmfauURw/+yaNGzZ8/hAd5dDvhqW e28nncwlKVAcbNd+Ftru fyi4e3Xk/v27F26+JfuPXuYDzN/BB/2CnQ1kp861863lh73rjyhrk/hTaWV0QvFq9Nmwqah6NFlWyOV0 Tt3/irvT2UEAGPROnZCs ppENWuAMGyhqyATwH3ykg3ed3+BCCW5Q5b/7PKh6iSd7M7NeauUkLwvXrsz0nwvmJGxmg0C+xfkffYRK KCTzHtIJAa64xRi7+3t7 g4zZtdKS1qIfwcmZ27bXdETIrILyoQSkNohod/Oyc6+vlOd8sPkxh533fDqOgxmGTBnUi6tIeb6VPDdO pCUme7QDBgTJsFW42bxM WbcqO8YnQqtjyc5ihdiBn40xBpzZw65WkRnwKsqioahihjaqxaiAEIAfQRvSPytAeRLTTlxczWeNR0jj 82fptAp80WEvzZN5zLne Are06HKdc6vvrSp34jm3/Kze6wjl4xntPv0ELLxCPmc/GwG2PAvZI5H9x2t6r029SNFYLix4+fPBw8Z+ uDX87k1bjWiMY6DrjKHQ YHG8MN4EBZVujvJMHD1NJO24vbnt1pi+2m1noG6AY40u7wgPrITe2nBXbA8z5KuPgoXfg69u9/lJoqmp m3aoi4pCZetqDbhUFBW0 9OcFawju8Ey2YY+zG6yQ3gO/6qXnwWuyFGGfyU7EqpTIKyM6k+3Xz/e+yX9FidRuWp/E0hewp8x5Feoz 6yH023yxZhieMVSdjXo1 UtUJKR16Afx/1Ub/u781Vp3R3EIgBb3w+EWZIkeumH69uaeAJGkUJUPlaml37987MjF9iG+yz140sNYu Wkg8TwRedX8eQbj/+2F7 tSlS+VWTGAsJTz58Yyv6rz8x6mmmV+ri0fJrrhTmtmlUk0OqddKsjYH9Hc52lW8pEAe7n626ys1/G5gz Zp9+/QlkmD18R0ghxO+2 PdrpSk7CDPO1Cn/hSSYx2qjgo8sgrJPBVXqZlO7MaQaKSTu0sju4v19a6c/AkBiYuLkH3/M4KAR4pjVi Jf0R6BcBVSy1wGUMDzQe kk//Aqm4Oaus6xLtE1k03/j3zlFETOy4d619NJiyXilEO7+pCE0nJQVP0b6AOTVWTSeGIx2KT6KG3114 vvEq4Ul+KJnAAPv8Hc+d /HbfxIQtTqcUbycra8W5i4N3+/b+/be2hra03yvifvKRQxY+powEhUA2As4upMpM8Vbbyv+cqYE3xbTm Xmstfbg/IUL+Tnwf+7ev XXzZonESg/F18+KolPnv1zKK2MqaUXkCoonSLFhYSvtBS9/bzhIkfmQHMNw7VLjs5RSuGzZ2LMgWNAYD grH82Bq+MbPM4Nu32axR xhaDQYD1Atyc76HLTNG/0Fjw4jSdg0eAUXr9A09clXNenwf+CrPdulk5qAHe6WErbw1UdCrmOwN78/gg KuMQBOsKzf6obHW9TvN4 bQFWTq+GfRcQ7cyBKBWoKlwbBFZ7phBjfcNp9FpirWaglQCVfSLNXgypZ/IpSt6KaU2Yk+cPmPRArexs P12i17s8iuYh0wH6btm7 Dqb7hXxb+SByiWpWl6bVewsclVRxiW7wPVD2LIdB1oETAg4drQp1GjYpsXUQCwpt2UFmUgTsQQhCXbgI yXk9Mjo4mbD1bNfpQL6u 9CK878C6LN7hcRKbs2/AICnp+qkwdhD47RTxAaJ/geMZZNs0wp2e/t4F571ygRC+3PwwCm9G/1UqWzB1 zeuFDFyMSZfveHeevi6e 28nTvEDjf735jUOz6UF0mkYvtSUlx6LTSCbXala/B0pTplD6zmWplDSfk/qPjY34gNX8B3gqiMkWyeyY JhEv1Vd5SHiSbDK3ZrPe X49Hk806f9b679a8H5f7wAtR3PlG1T3qeygDgxnrUXesSPTsAB88IomVjhg5e67Q7d7WOUvAo9RISsX0 bapn4X2qbt8CJTZ694is 0CdMcItCXhOfCZwSGVpIpDd2z5mpjJYBhSUDm3VYIGtqp1Cbp/agEq1NDJoPpa+fetW/gs7Hsir1BYV7 c3k9qsPWyBKDh6PNgubF spAovMKXjkkoakOBkIf4b6qniqrqXupUYw3NFy/fT9sT8s+QG1PuxaPqcRIzxZ0CqzE4sTzZKVaKu49U liFgP5skb3nvpuQSy2KE FxOey21oYiZYjjhvx976/szLKYHy7sOUvit89FiLmCgEpkm0cLvehFAVw4z5m29REJuxIcWIChNg03W4 VBi5aSiob6dko4PeJ34G q9d6+olya+SIl36egkQmz4kw3Z4mSNcqVrLJkwFsNC5k/birUBBx60DySa77jO9v9M0+gESh2tbnb7tvxx BV+QK9kb6gb1JmIuO5Bh c2tQe020Bkf6mqlcJouex167vgjbs4gs+gtSExM/M3n07qL15PCm/gR8/yQGTKsqlWSoXbg5SqzY0gii /CoUWvWrlkjFosDAgNMf hvU4Y5pJWNvZwOBfZeuW00puMQcja9odNSr6Hb3Rv42qj/37vQUX80RsKUTGZaW43no/789x5GEIl1pl 6uqz6dfzJDv/uVLl5k+X NZWlGIa01+JMJUUnn20A5CDDoI8YMrd8+7pEGfzqQo8RANefjgEYdZN1Be9Aa6ld8n95EHi3/9ISUlRK qJAe6mzNoOGkAOQKN0nH xxz1WUBMCn1uAAG8/Frp3YvDx8YwFu5E/v5s+j2BCr1O+z8T1vVwFj9d0mGZkAVkSgbzV8/f/d57kSYz 6hv7ocE2lAZnboJDYExX dItZgMEmdiY9117x+6cOVqNtk/xyyRr3O2a2EratThoPEM+AHLywuyOglePyutjj6CwVQQO6dlDfRzFH P49KN9F+bmNHgcrHo6Ms z7+TbxAKKBIUqVSRT9+lZMhdwKWiq3UeIZqOXbb8d9o/MsvdMYAm7wvsz+7ju/NXWAdL17OgHRTQTzV4 u38Qd8vtkykgmIkOVS0M Jb1JzEqnhZyhPgyHTGjt1C/1n3d18SFGkPhSyQT5uoV47+yo7ps1pp43Zyh3XGPpYribTUXwl4oHnbaI sraiEs2eTPIECCSMzyRZ B2BduLnl4fuQ6NteB1fFxdkeHra07gwosq41MqBlWiY2v+FZWSAbXdpsT9lT+RvTmcXcKRTkzbLzC89B hTwjMIaxnH9rDnEz3qb7 zpnUzm8QrCXVTqEvXxpex6RucTle+xdFZ2OJ9dc0WNiVC5nUUJQnu6NjoWxLIUJTNR66vv5604gobeYA bv/0D8ef96aF/j5+eWPm 5ube/CRfP3tB/S4ZtKk2+cRu3LdqJL432+fP3/55A7e68y9wHa8RuPPgW513/UNe3k8c8e6Lh1UpvO4l vao6QtLH7vPhzTy8ls5a NROYe2t/sDSd0zOBNsAX+PZTeTbQgGjJRns7zKI+/bfIvNGLLYGZs713egXK8pNVbYx5J6+weW7E5M4t DTmhxTcco707ezmm9b+3 M5oO71s0qXKIIXPvmDHCjTgPc5cd/wnvCwUFOsXHfsAA2lTX3HCXY6dPw5hdFWXoZpHAd+/Rb4cPcOfw Tae7sDjs5KinTGlt0pko ar8FBxfDQhRRnCjnB9zcpnv/+e109bxxn6os3/KKm7JFRYC2n0ipPRKDt0zeimtMHPSA/yHhl3nKQn9Z MePQT1BkFOOtC/+/axOW 2540NRq6fsYCq+9RF2h0v90o+/T35ic0Wmyl1ymDKGbatpsN8KSB1+u+PWHdBgNQ6Jopwgtn1v4TNmOl UaUtFotyzIkSfKViRASi 7C8HJaP6Q57Bnc91FE1x5zhTlS47AV8x+9bjPjESWQzRIXFJvl3Tb3LNaELekObsR//0vXuh2RRlWRXC IOp6k9kkxQmZ1XV0Bj04 8g562IhTK5Z43jTlgAqAL5RIGX5CIt6t09pahwAWWj5/5gAd2rz7XE8pcm3gZJlnmfZUnBsQ8+eOSsSi wK6dbkPwilcn6scYOOA/ 4ED/6mPjLAs++D+m7oCd7Q6ggZDsKgQZNVGKHE2YAmpVEK10eOq13HQJlVLTxvv7m4E2kkaxvtze6Vsc 2Sc01CmA3mHpdYaaSncY h3FVVEeI58eWxp79tJASKHyfDxsmJp1QjTb7li/7dPu2ACTy7B2cxLs7NzA10QQNBqxnWehNEfcOGbV7 4tCTYWMIX5/3PUPb4By4 +Kpy4sXUbhqNl/Vrk0iiEIKPo7nvypTsRot2tjzkm6KmUxP3+odV6egsRbSwXrvdxT0+ktYa1AjhQhiV Vt39kLEg+0uCxmCAiCJ5 kqQw9ChUjIohcf588MLXbx/GJTPOYzkxJCF7LT3WHaXy0HxrMdWggx6xCjt+cJgMJh/A//Y+OmTs1B5t rDCwmAwpQassDAYTKkBK zaOOyZhvSeMr6ITBsAUilFviCvhjMPCPYhSTlgIXtCcvQpCf1JYRcSQroTqnYdawZIZQXqBUctYZeHra GyPd9YBOrKCsgWtaWlmb IASNGoFHfwMScLuhCpSj4AFYaRNcbIjzHpbjGQMVXuUJghOBdStuBeKv9LZXePL+wu8yPpShZPfIs/++ MApglrs8h9fEkd1n47c2 +joKBKJ+oohgkJPpg6qIy/x3b63xGJD5tz5H3eJfrSwZkR9Vul43bs5lce236pj2k7dGa1AWMOb432Hw mVNAcKxFxYv8ZUT1307u kibo6BPZL1kh5/Y2JGu2gpzQysHq62EA2+8kpMaMQuSJJfRqmdk6r2nMcNvoex/TRxq57Aovni+qR4+f Pj/zOjSpcuuXbs+ab5Dh w9qPMCIrRr/7d331nvt//7plG6QAMGTADAXTZlxA2wxecLuNY3YpBwRWQ5uYmYGR7DD7yNgD0KDu5860 m/+oG6styYIp382Kape5 uICAE+ePCkk/kXeagVUev3mQPjTkCJNhLg5eNgTXgVfMH6wVc9GERQF4iDSm6iHse9CZ5kTtOlLqoIUk 2mIECv492Rxu6B1/ZkzV LdU1h7Yx1BJYSHqzs3/0SnSj82y+OI4G8DA/mpYKQp8QMUN9TRuJfgj+mFzrIDE6ugvYYBBoOCjubQ43 bNnBSW+TnDNWFi68nI1z hm3383cK6XxMF2dSz3gvidPHhAmpGQBP69eWhkEamll01wXy8i+0hZYtcluNvgGbo66+kiu69OUzfnmO izCXv4vBKMC8Ami6Gc5D UytVv/22324V3A//v179+3uPDVqKti309lNoYdY30yyFnd2xtRsrPq1+V6b4uz4cxtCqTJ/rIaFhTVt2 wM49oTKAsbQ40HEQn+7b y17YlJvpGZqS09UGYuQRDwZnvu4fH/l3AYWTPWh6cBOPtyvE8rNnFrqsiDLyJvTj1t9uXcoLf8Cbp6Wj g1w0xdJBXUCg6mwRuL28 7/z2/lOhPwu67b95dm/PxbeN7s270IQWix/RUgk2xi2T/Pbz58/KqI1ssdvZR8xiEjMgFPiuQxinVVGh vA76VxfJqzcaJs8zkXXK egc0TMnDJexECeBSCrRfNQLKLeSZVpfmdgSDi9iRKPiw5VSvUjm/ThgeHDmWBMAgRrDbqUd2hf3nyAEB ORXWFlZWQAwc+bMpKSkw yHRAQnyRxOW3RXK36NiB8kxQ4Xv9OsgBH46PWS2Np21fAk81yJIbvLoe2bl9lvCTFrBGWVBrvw+88H3h rv0x8riDLIg8UonHuKgK nDgwPztjuHDh/MxZRpGNXJn5idJ9HqCsbCNc1wHkGHRBLu1qjMoCYUAXW7fifZuJEqVhF58Eh4t/Mbs2 mXgR8rRMmMHE639msTqc ampvNJB7/dHKoTrHzbS1Gp3DrdcuLb6aCxj8lTqcVcJkn2yLMg5+/kaC3UnAmCg1WxztTXwCDKMIRrrC e1Ctv8Bl6KR72FWszLxj JYf135yrnRbEBNJ1ZL5DQUJy8SgtkDg4v+fx3io8t3yJeZVrNrCaoSgbn//zvjhWWrZKVNkTk6MfAz1y u3OnTt/++17KFhCVilS2 kCCM1ZFSaHAMtxMP845u94Fb8IiWTmrrCozc6p3QqRckS3/v/tG5iJ253wF1C+Z1bEMc9Pjpk10878JE s7n2QrnsK9XMEOFGz8HX UlKUFl+bvelNuLGLRiAPhucOhDln2sDLT5H3DLgs4MCrDjBgDEEG7zB0+YJa76o5o04hkZjsywc95264 vYFpQAAc+bMsThYUAtLI eLRYGlvWm67+CngaywKdkHoWeHZbjJfMc6RTMg2dcezmhAeCnGyZX1wekvFY2xjE6ldazwIXD8kjtX9T Gxz3Gze+YtUoUKF/FY53 YAzTSJW31KuFcXQU7vRdV2u0KRwJ6Dhe0w17HyMSjHj4MofDaTCeReIzV/r1I7NQllFdPsFMe6a0ll/+ uqrnJycQhJ5+fJlMbNDC VacGDPnoxEROb74Sw9xcgEq7U7OePHp0qoJqNbbNyedl8+YQtLS5pu4+vqacjRhNYUaNWoAAG8+K4SyZ jyZcUILPeBbv1PatkWKp Wpt1AElGNHo1yd700MpY+8izDADk863EKbXN/0g2iIyL1312393n+/tJWh0YHQCfoZyvp7LPBPSUPFft cxDQOQXym4evYmhGd633 eahgTr4KR8kEm1bGxc0LmnvKjZOcW504BtuqWjaeNbaP50nDC5BSvKbGCKkd158f9NalhFBZkNn378/+ +23cePGNWzYEAAuXbpkI U6u2rsVVnilV99IA4VzMJYg1Vc8m+w4tc4m3gpKf7EtQc50KoTf+zNu8G8W3lqBCMu2XKR2uaUY4+Xt5 MtxZxMQbNb6WnMHUoQLS e16mpHkXqrr7AHcOkt9jmq1KzJ17J/7mytqJSFroGuh8iqksTPF5dtiYOxUT30iFDvlNDN3S0U3UGRrE DVhbxH8ZYyulN/SokuIE Ufeic5C2tDJi0bOAFvb+s9H4W+NeZDuGbXGFq4tszCFlcu9Ey0s0kFt3at+owQxn6LNNFEPcl2i0z9g6 Obm7kv14vVdxcL/ERQUZ GpuvLnMH0y7t0p+49atW/yBHVw1iBwVu8QLsrhbNaYPDtZYPdG6uAzM46/Yoa7Kgghh3S7LuchvWaG5y 9bM/Duumk3GkK70y+ePW EQXx4xdvPeq9ylKyZTX0Ac7xbVd297LuOaHX2v2pPSoKd9FCzJu3mC40liCTaf6su4bElT4kjh7ffBMG UFBv/rcf5b851+/FYlEP j4+aj2F0btC40zpH7+syc/z58+vXLlichMHgJ9++hmf6py3vbx+/t6b780loYx8VxfKjpj0+/dnWdZoN P0xAXmZlRoyx4L5Qw0ek St9mhjwmwKkBn1o3kdAfJHUB9va0Vb0bHP/kTZAaN930a9+/gElntNfLkozVh6ovfQikjGJBt8c2n33g zRVYG0OVoKDxPdhSDqxu zDxZxnwJVFKJdJCfWo4Y69kmtPTkdFfuMLp8kz//vrr/ZAivQ9UzaWk5jbJ7LmgBcPSWmUxufbdkOZg2 xhtUdGTPtrfQZHK2XcVL P5PfEXyU10wzs6hDZJMoc20NOQJKc9lt40rnLrMtNyfW+tLmPpBYk82xPAa6P/EuvDbAhj3KfATnLcGF hiQdZLueFoCd4KPFzALe nUriVvyyNSFJKpRAvcQUfDqvKqTn0EJAzWPawPqxDe/A55RS/o3v7VFYZRHJApZDbYxWiJD></span> </div><div>
</div><div style=text-align:center><strong>GYNECOLOGIC ONCOLOGY CONSULT</strong>

</div><div><div><strong>Patient Name: </strong><span class=clinicalNoteMacroHighlighted id="[id number] macroname=PatientName spantype=macro title=#PatientName>ALYSSA PULIDO</span> <strong>Patient :</strong> <span class=clinicalNoteMacroHighlighted id=[id number] macroname=PatientDateOfBirth spantype=macro title=#PatientDateOfBirth>1950</span>
</div><strong>Patient MRN</strong>: <span class=clinicalNoteMacroHighlighted id=[id number] macroname=PatientMRN spantype=macro title=#PatientMRN>[id number]</span>
<strong>Referring Physician: </strong><span class=clinicalNoteMacroHighlighted id=[id number] macroname=ReferringPhysician spantype="macro title=#ReferringPhysician> </span>
<strong>Primary GYNOncologist: </strong><span class=clinicalNoteMacroHighlighted id=[id number] macroname=AttendingPhysician spantype=macro title=#AttendingPhysician>Sarah Coto (Gynecol ogical/Oncology)</span>
<strong>Date of Service:</strong> 02/02/2025<b r>
<span class=clinicalNoteSectionShowSeparators clinicalNoteSectionVisible" id=[id number] internalbreaksection=false originalname="Reason for Consult: recognizeconcepts=true spantype=section suppressempty=false>Reason for Consult:</span>
Cervical cancer

<span class=clinicalNoteSectionShowSeparators clinicalNoteSectionVisible id=[id number] internalbreaksection=false originalname=HPI recognizeconcepts=true spantype=section suppressempty=false">History of Present Illness (Instructor Dancing Oncology):</span>
Alyssa Pulido is a 74 year old female referred to [facility] with recent diagnosis of Stage BRICE [...] internalbreaksection=false originalname=Genetic Testing recognizeconcepts=true spantype=section suppressempty=false>Genetic Testing (Instructor Dancing Oncology):</span><br&gt ;None

<span class=clinicalNoteSectionShowSeparators clinicalNoteSectionV isible id=[id number] [...] cancer excision

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
Never
No history abnormal Paps but [...] internalbreaksection=false originalname=Physical Exam: recognizeconcepts=true spantype=section suppressempty="false>Physical Exam (Instructor Dancing Oncology):</span>
*Virtual visit*

<span class=clinicalNoteSectionShowSeparators clinicalNoteSectionVisible" id=[id number] [...] & Plan: recognizeconcepts=true spantype=section suppressempty=false>Assessment & Plan (Instructor Dancing Oncology):</span>
Alyssa Pulido is a 74 year. [...] and Sarah Johnson am located in the [facility]. The visit length was: 22 [...]
--- OUTSIDE RECORDS SUMMARY | 2025-07-23 18:31 | XMS_ITS | Encounter Summary ---
Author Organization [facility] Address [address] [place] [address] Care Team Providers Care Seam Closer Name Role Phone Unavailable Primary Care Provider Unavailabl e Encounter Details Date Type Department Care Team (Late st Contact Info) Description 07/07/2025 Orders Only Department of Radiation Oncology in [place], [place] [address] [place] [address] Thelma Streeter M.D. [address] [place] [phone] Malignant Neoplasm Of Cervix (HCC) (Primary Dx) Social History Tobacco Use Types Packs/Day Years Used Date Smoking Tobacco: Never Smokeless Tobacco: Never Alcohol Use Standard Drinks/Week Comments Not Currently 0 (1 standard drink = 0.6 oz pure alcohol) Quit drinkinking in August after pelvic pain started. [facility] Utilities Answer Date Recorded In the past [address] [email or web address] [email or web address], gas, oil, or water [employer] threatened to shut off services in your [...] your living situation today? I have a [facility] place to live 03/21/2025 Comments No Sex and Gender Information Value Date Recorded Sex Assigned at Female 03/05/2025 6:51 AM CDT Legal Sex Female 6:12 PM BALL HOLDER Gender Identity Female 03/05/2025 6:51 AM CDT Sexual Orientation Straight 03/05/2025 6: 51 AM CDT documented as of this encounter Plan of Treatment Upcoming Encounters Date Type Department Care Team (Late st Contact Info) Description 08/05/2025 8:45 AM BALL HOLDER Office Visit Department of Urology in [place], [place] [address] [place] [phone] Jessie Borden APRN, C.N.P., D.N.P. [address] [place] [phone] 08/05/2025 11:00 AM BALL HOLDER Appointment Department of Radiology, [facility], in [place], [place] [address] [place] [address] Jessie Borden APRN, C.N.P., D.N.P. [address] [place] [phone] 10/12/2025 11:00 AM BALL HOLDER Appointment Department of Radiation Oncology in [place], [place] [address] [place] [phone] Thelma Streeter M.D. [address] [place] [phone] documented as of this encounter Visit Diagnoses Diagnosis Malignant Neoplasm Of Cervix (HCC)- Primary documented in this encounter
--- OUTSIDE RECORDS SUMMARY | 2025-07-23 18:31 | XMS_ITS | Patient Health Record ---
Author Organization [facility] Address [address] [place], [place] [id number] Care Team Providers Care Electric System Operator Name Role Phone Dev Mckeon Primary Care Provider Allergies No Known Allergies Reason For Referral No Information Medications Medication SIG (Take, Route, Frequency, Duration) Notes Start Date End Date Status Lentner 3 1000 MG 1 capsule Orally Thr [...] W/U Status Risk Notes Problem Primary hypertension (89993695) Primary hypertension (I10) Active confirmed Vital Signs Heart Rate 70 /min 12/03/2024 Temperature 97.2 degrees Fahrenheit 12/03/2024 Respiratory Rate 16 /min 12/03/2024 Blood pressure diastolic 98 mm Hg 12/03/2024 Weight-kg 70.67 kg 12/03/2024 Blood pressure systolic 158 mm Hg 12/03/2024 Weight 155.8 lbs 12/03/2024 Encounters Encounter Location Date Provider Diagnosis [facility] [address] [place], [place] [phone] 12/03/2024 Dev Mckeon Abdominal bloating R14.0 and Intermittent constipation K59.09 [facility] [address] [place], [place] [phone] 12/06/2024 Dev Mckeon Assessments Encounter Date Diagnosis [...] End Date [employer] [address] [address] [place] [address] [id number] [phone] [id number] Rosa Garcia Self - patient is the [...]
--- OUTSIDE RECORDS SUMMARY | 2025-07-23 18:31 | XMS_ITS ---
Author Organization [facility] Address [address] [place] [address] Care Team Providers Care Grave Cleaner Name Role Phone Unavailable Primary Care Provider Unavailabl e Active Problems * This document contains information received from the source organization and may not represent a complete record from that organization. Problem Noted Date Diagnosed Date Atherosclerotic Heart Diseas e Of [place] Coronary Artery Without Angina Pectoris 03/30/2025 Malignant [...] Fraction Dose Fractions Total Dose Plans Planned [id number] 04/06/2025 - 04/06/2025 700 cGy 7 00 cGy [id number] 03/30/2025 - 03/30/2025 700 cGy 7 00 cGy Reference Points Delivered DPV HDR 03/30/2025 - 04/06/2025 2,100 cGy * Course 1xPelvis 02/21/2025 - 03/28/2025 Treatment Period Fraction Dose Fractions Total Dose Plans Planned [id number] 02/21/2025 - 03/28/2025 180 cGy 25 / 25 4 ,500 cGy Reference Points Delivered [id number] 02/21/2025 - 03/28/2025 4,500 cGy Lifetime Dose Tracking * Chemical Lifetime Dose Automatic Entry Manual Entr y Radiation 36.09 mGy 36.09 mGy 0 mGy Fluoro Time 6.62 minutes 6.62 minutes 0 minutes DAP (uGy-m2) 752.62 uGy-m2 752.62 uGy-m2 0 uGy-m2
--- OUTSIDE RECORDS SUMMARY | 2025-07-23 18:31 | XMS_ITS ---
Author Name Interface, [id number] lity Address [address] [address] [facility] Address [address] [address] Support Name Relationship Address Phone Jesse Wei [...] style=text-[email or web address]:center>

<span class=clinicalNoteMacroWysiwyg id=[id number]" macroname=PracticeLetterhead spantype=macro title=#PracticeLetterhead><img src=data:image/png;base64,qVKBAj0FDdiAAVBPULnWXfTHPYKHIZCyOSVFYRX7F8xPS TIJYUTVJ6EDdc4b7BBTNLPiYE8MCNKzxrx7OWBPLWIDpNuNrnZYGrQFOB5NERVgXbhQOOjUOIBFPRmj5 W5KeEM7HdgHZfufjtE7I hWmXmGRYQqlWzjVYbcTEHYWJXZvXdAGZBjlBtrJeBRkBPSS9JlqCv4CZdxtZ+u8/Bnv4lyk0c47G02Yx ruaiopjoEjWVhAD6hwPm OLZJByRYvuKnpDuN6YvKEA9nN/kLehXUZtMtDXnASPwtHQQHKRfYFWGGSTIdaBPa8OEhnUNx/gECxCGY CuOO5pVb9QrlIa6Yr4dy XdMdSgezxSSvBYew97CLgpoJCHUi2koNPEWwLpjqAYvYe8bO1uDcIzwOP8evLMNqdj46dlghcFO5elVG Ky1p4PYg3ixeIl52pVVX vQyWhOr5S7uYyuhHaYSOBb5LDqP9ipqyJm1bGovl8hFBnYJEVnSiYlCnloJTWrSegG0hV3rht86vKQoV /IwRSoza7LUy2mao6Vq2 6oQw1x/sABhrlu+/pybkl6583Z/lSMDqUdvRkxGg9aCYwUxjjcxDXTATGVW+AdQYHAQBQQQrV7+EU0e+ gGhZBsJ08SZjyemKq2Aa 98PNdY6Ywuuy8+lVYCS9j+xRx8a//2uMlgZWnFMJrZNf7+t7V1ICkySz64q+8FnEIqSthYAfF28gMrnp Tx++/btVL9+felnmOsJF iDMdUdGRgYFBQVJ/iVOpGqTzbyNEzwVLtFRRJkYW2I8Uf7mp5/HK6MBuq0vVi+GrtqfuVGP5ywSFEirY LGhD5v2dmjxsjQkYS0g6 Mrok35nW5QZgf6B374aVlNK5MBVOTdyDVIoimUqRt6nzXx6hA43QIQgKqzBDJ+3py82vAqFxWfdpB2wk IEw/wpWrFhB8+fPp/Xr1 7XhClFVxKuYUc48lZFygtlzsGLV51WdEBsH94G/fmqGmrm7EsWNNSTXrHPDhX8qFtEkAJSWmJMsMt2jt 44uaWfiRvBjv7VwJDI23 KIprGWJX2pzcr8JMyVAxwNmduXZxdAPEcHh5Ms27wc2RBjMYyfLiJymfAiJF3l0/BWyWDha2uFsHn+6s 65ajcqdEzOooCZqSzE0U rXiMyMgTqXm95pWkPPDSbZUm0yerU8PfzK9Xq9ub5x+lne5LKCJGQTVpAAZQVmnFsUx74//vhQmDFNQ4 O1vgjBMpOBaRXOOB6XaL 8lYqX812zvlonKiTVr19mosBjA6Y02yAm7u9s2vwu+qfPrMP1vyliiBp911Ph/LuqkhFg5wxNCStLpF0 gTNAG9RHAA2UYh4Hfo5S pIioqLpu4+Y1S46MnP9OV+gD2e+VkBYa0jUTJ9CUq5M00C5wL5eL6C1g++W1+wZQLcRXs41OM2oyYYwo bpSvMPLDLUAljLfqvr7y WxBDwo2toZ3zEvTNYIO7x3+t8Ox65bIQ7RkNffLc9520l/IMNadTzO+JEXVswGr427AKzTLe18NAjLKK tnSt2/m9uktZl1AiLVVb 9PwlKmaFBctueWxfy04tz/HGObQxKDOgeHLttHaiE0uLgS3AWn48UUa3iBkH6NKUzrOPvQSFpaew35/M NAY/jH8W0qJQQcOGzwYR +cafn7+qj5TBiFRxbQTQPS7HkAvkFY1g51rx6PbBbLQQ871P6BgxMHKYQOeyDH9pDDQLAoc2OrDthUCy 8GsXC3VJy70NdsRssLQZ 6W/qk88nRlqIwd00WncvFET5hvAu3z/wVpa6LJRSsaXv6CX0vaQV9jCnr0tdIcuWOFTt8ZKSvIsdDsh4 irajphX5Na4tkRipy99X m2sYFSLKJw4J/v5uW54kOYSALbIdDbgJfoDA3h++anv0trydpDqU7YmdHwSZLsHFFPlITMfuQSYpbPOg QLWTZgIiMUPf//9dxXrG gy2//jhj1K7G6ENwlxdZDc1iouW5vQZvH6pyieXD5g2xxEDIGq+/68PtYuOJa8vyKqWKGcUofV03THUD xH0sGoqy59+xS6II7NAi qVwCLoPFx8FFB7ovysuthb5bHfQofTWiXikgsmdfn6ZFN+Ex+QXiX7/g+lK4RJnSDpVpJaC3NWQI4yxB hstQpuFsdiaOi1k6rhmx Da09GHHm7/A2FCuM4kVWDyUiiSaf+fU8ORE8NhXrmAU8LvAyBUd67uVxBxtI319eGi6p18dJfNtMIPvw G1zQlLBh0ITvFLN5JhqS eUqVdQexwwdOlRuddeZO/WBvxRkbv9FwqU6TtIiOAYGk7+cPHCVcoeCtFhQ8QldqrCNwoomJtTXxVT4/ PhxGd+cDeOxz9ccUkQn3 dibad0ZbWzYoIRZHqpein+QN90zP9CYBXSuSyyluEnvmryQtP9GXQlkBaYXsmaySVYbOXFwEKvuqlw1q NG/f47AetnJYa3tfAx+c eS8uStRViKiVKD795lZJiUIPIz2IYfNwdJNe+2iyxiYekHAqs1RzAvuyH/826YO2gn8kAuTRHthNhGTP MG3MXnOKW2MAOiERg2XW jBMEtd3r+juW0Yx947wT0702ifFA1R0b+5v2k3Ku7iaShql/jxZuMnCHVlK2Fq+0VqYUx39qzOVXyiQ4 wERGTpyqWkZlJCYRCdPn it6Rhirp9jLYJFp1cRw6zKuaIM99cwiM1m9clhKUZRbyLNK1d2GQgy6b74FDYyyLW4FFmHQybh586pUw mZBP3OpA7kJ5MNcawJuH WriwAA/ChCl+MDhwzTsiScoICCAbqhRnSa8+CAj11tXnqvco6/RxJFNVEPscM3zcMri2KzPVeF1lOnbG 4UfEEvPa3DDSleQOaRnq OGwtTr/oAAKDQ+a5wQDBEkPdYy3O4XuOgqPxROMA5qnrCwo/hKepSvZ9d5+uCEyMay39wlo68b9tEmex NHiE41vu4hNuUxPgGrYL Dj+tldwQdSsAzvSPcDJLEfOACQeTSPJWFIn8Lz9b7quxLgv2ohf4qNl2z8NABjQzAbJ6kd6T9QNSFU4T ra0f2J2rFvpvub25eMOi yMMGqMbG7cZejdYFuNemtv8inV0XLzi2EzZ22huKF9/c5fRf+DKAbmnBCmumbywS0voNogOQOC4uIt8b mGY/C6CNZOBtQu5PKqgr qJlH+eokDvffoex/kzgILlXwKPhK6GlneMcbTqJzmTlv2v3Y3IAMKzCYA9PwnhBYJabQlArW7+BzLtpo +iyPNYFqPrpEjpd7x89m nw04085dn3hlx+MkqVKSz/RSRY4SrMViDOk9TUQtaaM8mutSsPBYT3T1TZ/auqcEoDnAJBsd0LEf1wOH GB2rEPV26cOL5elsyC2v nMLbVy/gZIyDWm+xqlWWINExPZR25SdmIV8lzIuHlLtnZNdwdU9+RZHYxRBo8NllAKHd/wpUByTkJZJE 7xErlpXE0pINXjPjUc14 +9XIYbJ//NQEWJukFbCdPHCjmW0fFdVEuiCFIk6doFjaK/BbNFgaMeUf4pZUww7CGJ4mS8uC3jDaQBm1 IHPk4IRP+UAOIr3sQKm4 rNfI4VKp/0043w2t8w6bsWXsY6XPZcVA6DZ+w+Im4Q2XCUA1DRme16KI84kVIUbRWE7+w+U7YEXBDjwC VyFIVRAxAnEyfgf8taWO AQxDryIamNiRHKcuHy5f87sINe1QEdnoCVEmdPWLMafbdoHqZ6qAwMaTYRwv2t0QM6G1JaJ1qQ1rXz2k EOr2PbilFj+nurUrUcLl oYAYmse1S/beaJ8Hd4I4otkrsl5JErFQyBeXUFy1YLKA8aLuX/MVKkmYfRClaJQ1Su2x3sqa2Pl4S5iq qPIGcFRE0jS4+QWVkxYX 2j4GMmDzkf/ItMX64udnxkMv7lL+BbUO1BsJNFDKpC/AYo00TUfwZTOajQ2Rj66EC6NMO763oeDK1rM8 JSaDU7ztOhvs18RqkGc+ wRJ9HHKVBoK8uNVK6vu/CkPQ4JVxuFpXy+eTQ89+PX0D88sLRwlzLz56Fiqym05NJIJLxMKzo1EYQfTc kDGFtuLlUTvYssOHe7Rb 4WGhdGvew/Vtd3tRF240CGjZNnfZJvzkyUVtZazYEb4FRMiHu6Hm5cIHyly+5pr3fpZ2Y72O8IlApPvM 1YrpNjwqcJK7AdY4+bNk 36GyY/xVYoWY5YRkckwtRF73t/6ZbrvqdEUd+6mZFwXpZqdEVkNkhSy5PFjuNj/lk4nZX/wYJR3nI0lG 9r0IyWH8g9qa4URIlBeN LhwB9VwKCYlANOqeCusUm6jOXgb6KfrCzAKRUyH71FJyaTprr40q289k1r/xuiO7HGFTpW3IzRJH2rlI ppKx4wNqXbBopG8jEFwM 4f2UZbVTe+iv7VRs/FNNHXtFrp0+hz6fGT/YLPmMMoqgZVhC44LGbk0IJUZAERHdg3+gQEUEhIgKuYwU CPzUYngBA6ZKlFrSrbAO v43lnR/vm7j0QNPMXoCaf8W0LN5/IIJUz4ZaOiWFSQ2NBZaE51J4PhvlNbZEsAh+z8p/oJWksZ0EM1/K tJqXC9c96vP/v0WmaVyd uRHuAuLyXcMHDhQ+UjMl2vWPn52YMhFUJTlNBjcojzqa3Lvq+X+yjWqezeXhDOXAZC3gOx06wpXVlzXU 5ao63UmUkRr4/kPg+U4d 9U3qTxO+LhLdM/mm0AneZxHi1WBRh8/1DC5r+1TbzwoODJTZ0cres2inDBH4daX0I+ljfE89CEEelKZW JOvgEns/Dxbve6Mr8wyh shSZhJbsP0FCvbzJOpLrOmJZu0mMto/XEJHzsRRTOFgeuPtObR+iQt9A8joeRcueIEdKsdCZvtlelWR3 KSPmlJyBbYnibRM7444D w1RiMwlDyPm0Z9A4GVTuibyPZonzBqeuOr2CMkjV4ckgCEf7UxCjwFQkraAZMEZQ2gt9HJRtuYQJDGyW WQgodRXdqk9KQOpGTDvE UvoFDCw5oDgVXiCkPkWBzDPzhhOOmhszrvzRnM9Az9hTGudMi1KRr+S3dDrFEL1B193U3XR1axbpm9Rg KO5dIc7GA/xqMx3HESjE KnwJYlMxJHviYN6lKhOdolNI1ucTgRAaFQ/44Jh4zdgLDt7poeUx6PAmAFlwtUpysgLykHhenVifPU4w Gne8t4+DHD2WF01nUH9l 6DdDmYLOtKuUpeaJoRhFsn3Zvq4/f0N6o0THV9dESeBXirC1KcaDCI+NyLYlsclYJ3l0vq/B8sAlzrDV XyqcuFQAdjIatl80bvpJ x/N2Q2CmNL8ImubCMNGiFhyPXI3FDiViSnDdciiyW9SEwHFVzqckAq71XJ+kumekKaQMAFGU6CVKc2BD Rj/hASSdJuSRTJIkTc80 qlhY1tKoakOAc0tuWjV2FMdVCSypffxDMCHTRzNd2VWS5e0oHf7MyUfBYQXaKH4g+D+znKlTtBP6NwTg AiZiO7zBGkGUxKR9aIYv lS/pNuV2J4+jjuPNn0moQDt8W13TDHtB2ZXuOp0a+vn70/y6i5SqRtvuQLEybuCvgL3jRcHJCpR96ICo f2jhJmPJjMoW8S/rATi4 e7JIoFiJ11Rd2Dv45mLbohobiuI/L239Sfi/EomP38h12ArxKxG6V4NYuyoGyOQInVQKrWIDRlUM1d9x dXSWYeKtnOLrSDtMY2Sc zZdpp8/TXFbUm0ZWWIPVx/B0W7UdGH7yaJk1ZQe7baHnjSYJPIpa2nry4E8ArrkV6E/5g/gZ3Ai7Zqps 3ux2m5kJR0zUnUh3WAxu Qb0ZNQRo30Hxxy7QE/QOazzkzzLYarZUQ0c6B1bNEPSqG97iGOuVA9voy2TjGpU9lGVbaVd0QSZ/AELE CZfMWjQIOUj+h2AZnMYS uWvJRrs9ZB1Hbhdyqi7NN3o1FUVJNsJgj2KkxChBi4pUumgDPetLAih7xx0hC7z+Dc6/LYcfhr0cSbTD 703k+zxG6bi3DFWDl9sl +582UpjIUnG7WDvNjvJuQKWGBcvaumoZDI1ugFR6KB+adqmN3RxK1geCeWfRK++PB0/vmfQvJvN45eRC +NGR5NIhFr9BVDliCXHG nF8ebbNRPvR1QDEK1QTMtf3PBQbydaZnoUjG6ZbEA6aATipw2PwyrV+UjYSUjOHYDHvLY2CcnsssgvCS tKOv+UN7GYxFUgNeJAxW pbIXvibn6EJtUieSeGSAeDwTZIVVIAy6CqLXSA9JnDsJGdBjw/ETHcO0yYPgJgmXZdaKjSozxoQtaEMZ gCy04RKKvSC1IZ8lhEBF Jp7xk+j6DXPXx1SGrA2bARp/krGoxWfEH+JUCWjWwjjJ3+vgwYkrkEKNpMhi7+kLCFEUoVASElOobtGm 9Gki60qgpfKzbVPpTMI/ exStSG1y1+TwvZkJ75kwxxtW8DNjOk6mRaVfgGq3+Esdras+xxtyTeCihSDxUGgwE7P2IsHyd+xQoqJARJ7 jc6WrqPkpHtglOkEM+6h do/DsHhciyqxki2FYeEhrTrko91BR6bEpQ7y9SWVnh4CswEcEUSAkPnjWFLbN8K+8g/HRq6atgXsdFfA hoQura1WQ5Dwx/tp29eG y+LLFx6ZYUo2WZ5UHH/eJGRmTlb9zZHMbHt/2DTELk2C+dOcFSRLMsqnQnEAuheCgvekBOU3Ay+MrJQ+ MkvvcJ76nh4g6Zzpnogt ljPO9HlxyTdHA+o2PsUQmnqkmJ71EZQ6al+/vX6uP0ftE40uXOYs0zOB6vI8llQWBFlUUDvPO2y11pjh sXI0d2LMZDf5HkyCkVhU gHv17d2i7DcPpOyRWJIzKx+0On7gSlGPIsdcw3oTzYgPSBINCQ/zHtL7r+yeqQGmwzic5sNHmHsl56hp 9dipEW6Es9eRBnSFN0U5 S7+JqSF9rb0j77itBH3hrft9FbnCTPQbrg3fiElwYN47OuYmLUGYob7sgbV+UvWXpGcmWehKZdAL4gXT XHWcDg8t5TNH/+U+xkmP 5DHvAuVXP2+GLv2olIm4gRHRAwDdnt20phwDKjCs8ZWlwqYmQljhUFnwpP2JYGLDdzJcgbVEC8xfk+ESTONIAN xHqbTMAQhsjf3jtWmKV6 9B733xVH5yqRvFFqhLtybUW0QqiBMJKnHGOKW8HwZbPoUcY78OQ899XC0lGodSwC3wZdPc6imVOf+RPW IAw+HLzIHr564/T5Mnmg FIbi0aKTrz/bxBlBgVRpn+RqHmIXgWZzAKPKhj4wlk18aqlSFsb1jh8gwXypcVEfUUBVDorcNuhottFX XbzdwY70NKHIJGfFFvaG wMJwDoDRpMN3MYvf8CEoTBFuEtJA6ZHGOTA2KirP8NncaTv4Cu5q8NuYrEzEWJMcBj+cOCWMBvKmV53e tDyZqG358UN8urBE1Tms YiEZUJPzCNMuItvSvnD7zWQbABHbbdbHzqh7ilJ12dRJPFtU6Si7IJ5c5V8erPeR4gdIjekO/mMholzg RHDVfb4Gh9WBGVYDpIwt mFGWDg0uRCm0g0oSfolSfG2iBqh64SpFQh2tpx2DNo+MUflxqzi1SuKTi+DIqqFSXhYGCWnpVOoqIBT5 Rq8gSn00ErM/zOCStZrQ rnvmWBCfvWMfybU5ALqyBcnlb5LyY8+0McE09xKdkXZr6FhQpqE2Ej1Px8uDRCbeS9dB5KZXcuq6OBSw kjWgF7i5KlNxtPDwvFOg IlTZIIWjK2xbK9+sqX9gjeQqd23LnPVL77twt5leroGWOpzCmuzmUtPkrZCqlqPG0terhDjhUS8pdQ1E 4P3jhqJK0mpAe//mlb07 jchRkCslP8AkXiug7JD1xOYHj8k4L1pXcsgpbQTzO3/gUqatO1wfGZ1WOSnMIP3M9SX/n2MU185nVGBD kKv9MB8v1qA15BpDQGR9 QbWBtnEjqGeYKAzC5BUX0ft7giLnA6ABfjljg1z3OucCzJgWByyfk07WTSNj9OufE2KTCq9l6JHxMoz6 Ny5k+rUqUMVb+tGN09+T 1bgUGMT4c+se8sxlQ/YvZ9mxo7VlnbQZWCwSGDbKcgmic/NiRik3swsJm1FXgvdbpuRBqPw5KHc/OnLZ INBHqK8pm/Tk0eSPcAe6 Cgq3IedyV9kC94NBqp3pH7/9V2ymMVOnWjLlPPoH+eC5bDw9R1tsdlWF4sbagkHxNeO/pZK7oiGW+jkh n4v9782NQ02TD1YYDefO iBMgeHTTz+dianne+++olhl8JtykkY9AJzV7tksRNfHa5LmYB5ZRs0hhz45ysCVr47CsHXldo8HXyPiqryRS A3TVbqzdhiS70duF2oeT jHNqwKeTR4VzNUH9B9tK+K1w+PIoYCwCe277+hP6lf3yHvwrJ8bn1cRoc2uRnK3ORQgvZn0syVimwXEC h6CXpDWBK8zrupBIfVPH ZQmUL67lNMbB4XKQt0wFN61utjymYUAXzRcrXTsUqo08i2lqxhU5C+YbhMgqIVRjA1/fyFMgikwJFzW9 KN2c3Mg/vsQQs5Eu0ppo ltcWpqNDtDrUmWc4MgqWNOGU1YECUCNJQ2OSh+DhmRul5HEx9YLEWhh6BE542H03ZIX48t4xb+8CBnpy WQIDanZ/N9tokyFJwTHl ClbKDyHxGVmvcyJy2Rio8zipFpzlQsctFNVavSu/l8sG6Uoj7xFCGTTfVoQFg7+lOo3kVjt3TAnNx+7Y D3HQuuPP40WtoytAyJdt TG7vHKfYh7/qt5zx2wIQi6I5oX0lYR7d8k3dU+zkNpTROvMKlbKsxPiW9LIxdYRzzUVf7gsoVlAUEVzF ktOd9GAISuS3ILUVqMQM n+5XeR/TikzmA+Cg12eLiPBhGV52d/jGKA6N2VpxIOx/YvYDBAKVkOsXqljnFfe856P8dAyPTXqR7CxM ZRSGXdSJ5XOzzsNHWoHi FTC1AYIsoTiRPtca72YZmMk8s3Uf7OpSReaea0OEJSOsbN5I9U4AAwyzhjpFaRCErNcFjVww2Vdle4+J eJS/GjqRJVIUPI/I6nu6 b4A3v2UUAzuSDn5892dgZaNDsZuSmxIDPDxi7TDVvilYfUOakjLTIM3rnZ4p2ozocv+gZQgtCVQsmRJu WWYggBrIEyBAUubVKtWT pxzvshLhkYDMkg5lfsYpQ9OFM76kRvXMSvJWU8okOOoy9zD+MvLwj3aCVYFEQVaAhMYNPY1rCmL0Tauh dZ+K/dKlWhLsKt7Nib+R wT8qOx/U5JBr7zHYdUB5sOzBw+xxRcQ/rFb1VFcTmr7p8eKlo05UMP7WrUbINdcGowqlZumqbsf4AKn3 K/37vBAIA00BN2ennMFI RYgTIFCm/RGdBtAsU+/FGjzMaKaRaV2e3Oma/iiuoi2fd43sLvMgtdSyp3cjwGsbFDp4i+JWaWL/0PCK Csjjc4/NYDS//ee4Oczq Cf20xuwmlYvfPUAkwI+kDj+Mh8cZ+I3kRYJh+/2V4nGiE2RgF06udXO4tPAWf/8nTfv5d4x/6gYSnzpC UpbvVLG8+yRUKU0G5ggW BHplI5YfHEqExGeJ0yG3J0EoXBIcUcTbUFKs8R+psPaPajVp8BZ4X657IVTrp0JrGPTKa9zRHEfHAx0J qfgdJZEEKiKAnhEVm69J 9U7k5x6yfNfS9YS9fWgPIikUo1C0iII6XGGH2T0bLASmvTSKvlZebhm9xNq04mYMcJZlJ7pd1GhzKVjc X4Rn+gfQPGnjtuER/Pmz eFXWTtHLQGQUgA3chKFdzhsnN28XEEOHhXahlid3eKuw6EEcIWuFbdVsJovAysYiWjgHEHJDBIMVu4M6 IzR5eGRWcN1ZidYBMo/S unSBNiqCWRR+afkSWgS5gjsbST/ZZgrQZeGgO7RJJQPnAa6QTjfdF3azVdDat3jYHwKNxNJOSqz1TcPd ZUPoIhIEFkOT9NDcB+aN Xg3ETKnkGKNGQK83lPEZkXxHJ9KGiW6JVLsfMcTPLKF2RnjyU2igJacufjirP2myUDoFuPUg9pEGGm4O sqGiKW962gtJdW37lKbr 1ExZMRfIOOVYUTdmxKt/ZSoRBmimUIzmLmCqFgpom+DR17vcYfezANvBa+eLBsZa7sI+h84iUs9saZUK f9P1QSB0dTT1EOOy21Tc SGlLepxGpaSmOVp1WnWU8MvKz8iz1ATGgxQkqC3Rc11DNLBejkhuJzjdcjKLPJhLjSZQFWZF+qFHJswi 7FkcGMpvq4fVuWtyM2IU G+uIL/UAOWqcDfK1p9FS39u+x6bEZxC3HJyPpQ/W+SNcP058ThRe62aSWx4q5TNw9KfnvEUN2AC4emLH 9y7EbQsUo/Yv0CHq3pED qpBPFH5LIIsvzSLCECVaS3AufIQNbUsPUhJLMipkJlgFPYCJDfQKEo8fnWGMgaxTlwvYLTUbyM0NXFr8 YBJgDVEmdeJtgVHrF8rD /YtMrb/FLHSw3S2XgNRZV9NRn2Wav1mQhT5igvJlmiP9PneT2tTBCeR42OasVydRbRRv+a+kDCiO/qQX +9QNRm3fRcOuZRiZdHbU VZ04gZG2BisOePP7+wpMj5+w4r2EBttKkd88VD/sg6WOenXQylBqeQKg4wMny+7MOa4EkoELJD4R5SZY ksJKiSEQTLReVGh/y6Ex ql9asuq8Y3E5X5yfdYl0EImmoCdxDkoE7aIWQR5ie7ZyHtnCIc3rilNE3WIGYZVt7GzrA0MTb5olCP2m s3mnTEOlU/nL0R/HbflD AqKC04yhs4Tfnv3UKPvYNYGAIp6dzvqlvCbilLvp3kPiEQXPwVtNkNQz9IVDKtn3KzE8KpDQR7zKOifF Dpg/4qI+MAgolChfYRFE z69BAQdDFVDvPOHm9IsKKy+MWztu66jklHOJueTnY0JlEN8+Omnn+jPP/+MWfeniCYKaTH7syYxtg86H MzZIIoQkgDnqklZe1RII mWEGE158lH4ZfLiK+tNRQtMxzmD1ioHFJCsayo7PmouoCH+HreIqomyVZpheXHWGHh7tgfagHYIvOajM Bc4MvFg21eYfRwRuXcpU tgLEzJGaR2q9lgRxkDlDpR+O6fIAvsKlGLNXlV7gm61ryvY7s104H875YAAHHytR+KRMVBNTEVEtqmsT fZ6xnBGsYcwO8hcSxHgy CYGVQgC9cTHFOpmrfq315YKHP+MfzAYWHen2QbHIQnJWORu5WDFXdkEwvXFT67/6il1x5n353JGpM6+4 67kkJsUld9iZdIs8aFk5 Eg3tUQKerXLYr2WVPO4p9djFYHIE3UwY3eQbEGuLoOPAJCo9aynvu/3U0MZXZrcJYJX733oY3hZ01+/r UIWIqNN+XGe8Ksfsj6nA tOmTZN+iMJ8mInLzK3lKdYmHgiak+uuu+eSOml4FuCNeGEDSxclM6bKG2Dmb9GJCQmYKOLebMLXqSv2l javpGrVqtS+fXsaPHgwC e3BnhSJwSTWcbFCAiLgPKLrvEYZBHIwVORGOCQRowWRl2QDzoEVd/lOIpAZUVpDY9nEVPmSFH9KIjCyH IbxCRYgDMMwjE+wAGEYh hY7roDEyeQE8tPsHNmHZZjgYAXJTXsW+WEZHGPjMGJoJDeCo1EWRJT+/NkoGhGoQXbHs0pyqTQ4sIDy/ C2F3nxPYCigwMCAUvCZT UXFixenrKws+XVtx5aO1xCLl4nql72d601kogf54bpkq7RHK58IKarlcMAFzqGaBoKIvMCAzYi1fGWFb tSzZ0+cPTEVFh0t+ROPB Wqmn53Y22jdWj7rc7oX3aQLsAtgSaVc1FIBWuPom5isfeifsYeMdmbTee6IU7+evvjiC/7SG/Ub8sBZJ 0WeU4FARspkLq66aIvfx djNVH79xUs+/ixatoisgaocPivM25jVd/vvv1+GGSa/9qX4KBs8g1dd348DZYQVRDmZw5pCqExqBNVAy Twu3fYNLTb/EytWrKDu3 czKV1Pci6/+mSpWrCjDjvjvf/6Wsv29bVEROIuHZl/bvFjVw8AxXW95Ji9mkIXDg99YbGIQv6OkDJbWN 8PciCz8HC56uXSb0BQt+ mjEBv2ME6b89Cntyn/+hK19fpH2yUUhXvnpgPuX7oWWe2TMtMucq8Y27hYL0dxESmRIITRpZ6x5FWYlj cfFgpMwtkfxw3gpKbozU LRHyPGVwg85xCKhZYfEDC54AypQWJTqtiJbkqFEZy4q+QeI7y7F720Fw7twW0MPvDGPeLNslgwOOpnB4 OrRowfVrVtXhUiOh/g65 kzndV5DKcOHkGsgEMklXX+++KLyuQcvFrSPm2++XjMJrQmb31/jev/9/wMImQaZ70aNItSbKiYSQGrw1 VTIO95++73uJ4nYbpZpC cw/g7mI7Zl731WmcYsEro7bNpqNZTJfcIhvrLpI32f7mUCSA1pTgZWGMjdlxuedqpzwmA9rh1PhSpLUS ETYzH/SK0cAcBXUxHCNa 667dgKex5AsIEwKPMNNuyVr417T24QD2OxNS+/bt0+OxyAd+ronAOnMaVuT1UIrAeE0Pbtk20RZaEEYF 4UEer3cZsYdMXcNzcMKv TJlpMN+3Buc63//+489x3alZgp3AD+KJl8dNGSJWNkYFtaAnMDNEKx5rFDFbk0fuu+KCoTw0X795LPSk FPd6fylNyoLcJs67FV11 cihBL1bebLRsulgi2+tUrgHx+Ie4jfg/ebWLfn5jBHUSkATht96ZxQ9b0IJsX/5c7gd2iF5Z/7880+aM nDIFTk4EQTgo5904Sd35 yudKRwhhPofzvckrNLUyZuxD15MzCciXeEfJ2edsDG0N6cJq8ifeRFgafiT1LGn/fXXX/HVkUtJX28IK IuwUTlTQJByB4NN7sJXC 3g2JYehtcIAK95zfwnpw1/EcVAGXTh2xGdpzfvd5nSrrk40ayQx4bXmo8vrjmHpIF18TDT8v7sa8TSSn 4lXaCjsSe41Xvw3kwI7I pr7nBIAWPU5aK/zc98aWQopkFrRUh3EF+E9wfuN+46a4oIlaptIR6mj4yFcPBeVvvLm+wxq6TKMEI7pB aVwgXgpvUKcDAJH+sWJp F+4WuAjsVzSkK596px7yBKvEU9HpQk1j9oFW44plEgxBKypO42funvSv8NjuYcNIwNvjFERMqTeY85i7 d8hnmzRLc229pdKvuNAg Vgw6TJSp1vpihj68ajwxlZeP3++7ofAFPVKVJJ7fdghMxFq+++/D4hPQWWy4QgxaQrosaA6ML+kdLg+I axs+9PjSIy9SqVysS4DA BQMpvVlfGNlmNPlTTERfXoNLHBBsHdJNYBOQGwn1AYIeeeFGEyxCu5t4b//fePGG2+W4fwqk40u5cmOv RLmFXBN6PBDVlpPLJjV5 en5tjizbP5b1T9vQ4B1RcAGLu4N0xFd0f2WANIb13pjxXCrbg1OkoVBP/wACTHGH9VsOIlYfVKlHRV03 bCfB5asmfpcLS9EL1463 nKLTlUfo4mZt7EPxFTWNEJu46320j1JPYUSPYhQo0/3Azg0543iDCfgPjMrY/LlYPCJdXj5xdc+33nnH Vu5e+JFF1Yu97psOeKf0 j807GrmgpB/e/Opqbb8UbuoHDwlrYCBlnTb74Zvp/mQFDc0mYnFRvh20OmwWNpjJDVrlkxIWZuHU440v lFXNdBd8fRNhoZhiCXb0 X5jtLn92+8OO0j774fzoz/ViYa/8fjjj1/1czXRemGL3AGNONGiUuh7ucTOKtKsXXeJd7p/TNhAm4VMH GCA9P/+++85jvVUgGiee +1739B0Yx2JOyS82gGJMedyafoVfDvLUvIi133dR2Ue3xLku53jAox8CFEYWjOEG/aLlp+KuRrRwpdpR MuHivXAh8ERIHsCvlyFu peexmbIjiMhYRgTEzno8vzuDVVXXxOLdwBo2y6cKjlkb9mYqzJJNp4Qdp7R3sPMGrcabiRiB2uESNBoV g383TNLEzLAXZbvEi4Lp x5Auee6772eAtxilk94oTGo23PZPIdqJEkbtYFVDkkwVnJTVv/l6nsxxwaz6wKjsg9/OTg9aKgptA85r btYpHpQAeQFbYn2qgt87 gQLlJjDkNTpQW9n8nuSdwhFDFQzK3z5xrEUaxB5lbVUSGpTq91kmZnqzGdpdzG6ReHmnljUiNZNCwjRz Rzlrey4uh7WZR/XHUgnV YvTsh7BIYaJaDDwwuBuyrxefxeTuFLrB4cyIV/d2Uk5929I7Yl9j5CWpXY0d2J8Xkrq8Mmdh71XLFACj QrVZcuWqdirQQvNERA8+ rnKCUftdltiF14no7iS5QfNiEivnNYc7O7jV6rw4luqdtqnR2RPEguMPp0ktzePnt1p95kYXuoS45WKH kCutCaANMjPk/fy448/t x8jgyi91Upw81/isWyh8xa3yXBpjQSFdzCKCsopnUxyANcmZW6KSuUVuOQG+EJae/D0xP6mk/ToIeMcg R4ZR/m4w+ek9ZVPAI5Gr B7sOFJqUevbOHmwA54rEtZttJg01De1V2afVwGkrYX6xmZYdjHSBsxozwpFKqJ1zz7f+d8bV39qtQUh9 B6GqTZFfzR05V8njaLmz +nzKwhjqh0QigyTBa+ieRz7WZDFI4i1pLHNRnTM/fIO2v6Jv6eYbbWlrJDjPm2qnCvMUtoW8FinNEb2p Mbb3wmIX07i2bd57Fg4+ dYyRa9z8afV2b59u+HN0774L2aevfnWawQtE+euwkcad+f4ruDJHSpd4F2bcvujOm9q17TXzmvIj6Qgm b++3119mnQWsq6l4zeVQ a4js1XEwn1E690yT1u1lDCivIUnj5aKjx83BGE6ZoeCyAt3IzrA4poEVGKxsBck4Md6CxEyy/112wXCO cdPap26BQL7UGVA0tkZh qODEWlqRZIJ3m1K/6Ds5KjhcNqsJo6OkgBs8xPjdk2P6AovnrIUZTYUcQrqZ4BE4ocQHlP3s7iQYMY7t 5cQ/eD6N+G+oNn43urrT DTZ0rfrEAU8XQgvxvb54w+0jYOOR5RjEMW6BnOkZj4xwUAhjYFEdxFNWWFx2GDpEmvWSZepalx48o6b0 rNZUWleg01+ZmK2C336Q +tJZ8qd3MzfcAtb40b4y0HLmuF55iwwmJGf7/L4suj1QJhD2HYRoiD3YaaBUJXBcfPmEpm6GHMRoVqwx ewLXpvxOmLEiBHKZ/Yesenia 08hNwxc91+EVp9xXl7N7598plQAEIFSL20FPo5Vw2IOKbfNVOEuJo0rW686gzBdKGQfBi4zt+uAVYivf IvwhgNOiqg2pwpZ11RcZ HAEth6j4QKVykOK54tvkQtZl9kf05w0h+LmdFFNET7pFxk/B5UQkO2PdsXSU0BTE1a9t3oZCl/YW1D5g gwuJk44dnxNyFePuTa5z VGHQZ1wBGRNJmMzeeAFaZzo+/AG9QcDKEPOmpJen1YQuzJjRwWBQfvZxhg6665pvJaE8wj0x5l ZNME1a0xK247Rjza6+z+ 1wHRrbvYcONQglYPHTrLBYQLidIwsyC3TQMNanewiS5pO9TKqRPwFUD/bpl4snYUi5tFmmG8TNI8Z2ON FpUyme+RH582EMDCTZ8K RZWYh8Zc5c90fdfAr7cEkV9drRgvEigeifINz34E8fXyf6LqzVAhjdAwRZYjPlyGqs/Df0ZjpuVVQeI0 DU9MbN7nd1tocUPcc9NB 1S+cOhjr4TH3+bNSWjbKkTStNdbYHJt/T1Cu1U+05JxMl325MBFlZqYEchWirMunsgz6tLQ9xMUFYL1K XQSLQAI5rDa7BC48uCTj vRUk9vPfXiDscFtwfYZS5/FWsJBR1hobvLYbUlqWbaZGGaetF13T3+9rFXj6lMuXbjdvfhRTUwjhZTy7 YXDhw/NoYC8cVPsfN2BA KSBuQitQUDXqFlPBoRrB4teUJlq5JolKg4z3yn1u06bO6AVGuo2xAbNVD5N1b2z4nfOugsvIDHqCF1lx C379+0Dtxt9jsVHgipxN OdUheO8sfx8XgPBxo1lsRZC+etSgm8Ery9rCNXw8oD04rqpcvCwKMYXyFF91wldzR7Xn2vhwiGxG58ai DMe3hD1l4CNks/kmQDBi vIZaJL7vrsMgNNRyv2jXjesiExkC0790xpTLVDM+yK8KEzTcxsZCSK28RB4pOemY8jcjl5ZDF7hMhuLH CLXMxmI2gEHsRWpFpqpA GQon+lyL1fX88vs1hRBlNrHbNgZaRwoHYbm3cGvfqk56E1pB/xVuiXTfsmL7u0jW697i/G4M2yJiCHZJ c2+Q6dXyfj6SpTh6HUV1 zDzycr3HgslCHrVPk8LrDq9bR0P0Oz0aba9iCw64v7cYWq3LqjBatrJNRPTlmTWYa+0xFwrnQMV9ScA0 O8L2TzYy4fP1p4f8DI62 hjdfC7yhgXLxUimHxVKCYOtMn2mBB54lWBWmhCZtKPDqtez+SZGdqyViBG1xUkIJlT8CrymbvkosW7dC RRPdRhUU2BhdLFQtO1Hw Zo07FDsqpdenyVU5l8ny7q+Pq9gEK3217ib+vldJpizVDDOyX1J9EJNIEDEO7ufkLPVeFZhcrCpVSFSu zfoe9ZseHf/jTPtBasva RrVbh889tdDO6uj4P9p52gtEyapcGaJ4ywvwu9NjXrTXLLUSgXfhFdarQQ7CUcsj/wMtCWtIUEqf/jhh 9IPctOyQTeRrqjRrQXJD 7mkC7GeqHNmbqBWj6DXqbGaABn+v3UIpBNISQEY9s3XjgGfZHN/dmBzsTL4otsUPRnMoTtmlWtBpu2o4 7XlNfYNJuvAqbflCddpb YqxVmUSY1VNFAf3hTl3wnBU9Jp1uo3bcqhTkMN8711gpy5OKud/o0Ff/mRVYyXrdFrJXJKNTzwI3SBAr Mv7RlLGlo6EGPdhES9XL 3051JNyXFPqls6qC0cW6mIspNbLXwXpMeNftBK9jQ50/NTenPwTZrwwaXWG/MBF5DePltGbIJx4Ml0kL X5g96HmZkxmybLDMdSOX d1MjZ8ZTtTh5guENkqDEju0kF4QW5Wqnx16ffaz4uaaNDSlaXcgYfKqqhm9NcRgwTqnLMLv7mtel4xFH ueC0UsXP1yyrLI9UwDOM lQZVStuqm7UpnXonbWRLOaEFQzGNEgSaF4Kb61eNIcwegr9cCsKjSJBuur9ThLOcY4k75GuMF7SstuMt 4M9KZSlb/KglkpTsI4Ql A90MWLJ+iuiY9sTHYdaa1o0Av917LF6EtUi1WuSjTZPRjSXV7Jz6lVLLYGosfiTjGQo7UppCosz+ySwz FRucFbqpWlXfHhcg35AJ QeT11W5NhCPn4hf5pvtdTLHLe9cvoogfeSfWH2PvYKrLjBejZpr7cyGxDF+prGRSeuu73xXRgZla0OzF 17II5KFz4Yx38CXtiY9b /322+XW09+HcHqnwWhFYd3K8ap/3GqSdqywWbHH6M2bqTMCk2/ZYzXT9/ZgClvr6w3Fxf8oPnfw5Gzvf BbzjvI9R1/We+DJ/Uevi XFso1v34XnO4ttzcqzHa++7011pqt02IrX4Cu5ERrSiiQbX6qup8uruj/uJaWp30MPJQG8Vd7Y38kZMu CKQbM4USuN3FTfhD7yXo CXNBxqFgadCSLOAL0WFaxYl+KvM8ifsAzkxP5IqefKsbfcCLZQkn1MQULvuF3pSmxZfoGcIhge4W3Pnd CkMb3RTBz97PZmB66gHB bxRrxk2pfkvAZ59wUWnW9HT1pboww2OkZfvRSqy5MvalYvZWcDNyYjKzgxg94xpFxhEn2/w92HhcDtfS w9l2u4vautmGAJsLkOOB lc62EJIjuhvLLDc5fJs5QX8yN6657ug7TGlfVSY31m98IdP6hXa267aLEXIANAYEc4LoxZ3QuPQqRmkK wzodcFckdcaiNcCRC+ei KbQrqT3IcmTW6SGL6vALc2AR+/1sa+11buIhK1LeHXxE5V+MF7TfYCgI2JkpGngvwQrsnBT4JuO8wAIY LVhHeCBeN9H+qVG9689C vw+oS6c2kZCkYV1o9sePYGi4QDt4rX4PKgA17hy5+0EoOolPV3hKBviymJXOJy2srt5akLlaZsK3+KqU KGCV/aHj8txwzi8kUcVN KkLLcjV5mLzdEfpSNutZLjfQ0vP6ibGvTItYE9osJcz8c6qAgklRG0AoilzZrXoDsJpZ2x5ndv1K55a8 pXplD0rDTzEOM8wJjWwW EYYD8B+wUD0+5AH6VzkUqqO2cjCuAHHEUlRj/Ja89IO/a/s7qZbwxZ1yyMr3c+NS3kuzH9HGXqtp8rK8 P7FKIlBe9x0ZkPU5O4KI +O8n816uCKIhUIEwmVrJ3h///8plxUF2CHWF+W9E4slClLwz/wdOUiYFwvSigrYlNt2u1DQUhfpkmYtB i3vjGDJhVY58yy+4j7qF 7WlcUIonbKPmo2Bg5daGDNhHlhw2LHeYkQPNQ3YhOqluLwtLSa1Y6ps8buDIhdPeSWU5K1iRT8tyVJd1 Ub7ZkHdpuLCih024UDjZ 5ziIE309uXISfBrV85yrzMzSZiK7ObXK7oq9feqOjJd0C+spKjZNlXqxGI8p5R6wxhRLdd09JL+gxVr3 SfCYj4h20IlD52FS3SV5 El8PWCItyBEoq3CobGNsq2I0iC9HUzrlajkllLhJO+L9n4s1Ywk2VTESFHtVNwDtQZ0wEzIRqSiAAQv4 8vip7Exw6wQsfCsNmiv4 iUPGWGWL3WATRrSQjEIoIBRZm+IhybBKBORfcRDQtJYfc5a6IeZYEWbdMtKKWYwJGcgf0WXxAFUO5T7P Jh9iKJCvAPWeyUQPioOL BlPGC92QGodUPSuIWNgSn5ZCjrggJnplnYBCZI3uISfQNWVrvqar9ytUjygN+fIK3n3JZ0o5Q+Ia0D/M Nze1BhT39sAh1W1Oc3jT VTGa8FtsL/dnibGdyGeQ4V10DgpapkI5ytbVOznS+4f+qxFK05+XVji9pwrJTVrMs7qKjevyHZeS+sbx QJ1mXIq4UdUWyni2vnBT zwyFjx85gjr2vIcCdf9l3UBs2GURGe/bj9Zc4G+OS17rVbJA9StwQs6j+HLIYacyL9JiQHEIz29+xpMn ENWoLIGVhbNdVqQk477s gWtGGsGpCpq6wWdzu1qYPwPVKEoT5qIfd/KsP2mJbwKtsQ+uYfln1zPhmOcc7mtjGIQdln7//770hQYH 2VB03NMyaxXQHWmReE/G j4q6eC4g6tK9ZVrnTVaqLC68/pieIBN60MqeWlv10o0hbI8nZYOjVtHemOm39PhwW76tWdeTa+X7YGJN gioMIAckinyr5NdPPc5J blaMuTsamLGzUkA1cX+9mQodRldp5/hDaevShCgXCImACNrWZw8IJV+X4DxpLxQxyC1SeyGexLHRrUjD BCGYRjm+oEFCMMwDOMTL ROXdpRXf2ESkmEYv/xZVoLQDRmNX1cGLZkEOK0QJaCnEZhpYPNrSQBzcE+aPFJIehI3mpOAzjLD9hUeQ BiGYRifYAHCMAzD+AQLE VWaXCAdBRDhVBNhCjITcBZAqyZESdRNmfCSL5PUMUyZJNiOFUdFLMdrBvpAMCRkJP5kNeCxAVH5ERtNt gZLfdp7HzAqzVXH+fn5k b+/u0bfN4RGMirXdbvjzMJYwBTGngNJemjRy0qWWraH0b5uqeAmmzj5bkxt1hCLP1prP7rcy71kvp2Q8 9xzD/Wh6wDfHyjdIFdqU BGwkdt04CS+/CloB7kbLhdGdjRygNor4Vj0SAnECZO8IetCmq2aOh11UGOyn7gvaSj61mRP+bdq1Yp+/ wxaetix89+cd9srp774D r4250129haePf6e741/ImmZmk9wWB8h1pprzl6vARpJ0vu3T5iHuBmzS8iV5qR7gSoFLj4K7+7I4fz/N JOH2CQCgTuEHeESNpBdI YpQoUKFqG/gcyn5Y3vK2ghHr1LlxZJb99GUki+drmlukVBjPVnQVIGObhSn55GFB9cn7Orva0ySessvp YJUSClEozwaNw0JHa0XP GlBDF1haDKTFtO4Ll3DR7pmM0cTNOyrvojADTzMUe+mW2+6GCzBvwFd2xFHV8Qxf/qisi7rcZsGY+kTM 0mNBHK1+/btjX79+hm9e fCzxP77nBOM2AUWes2RxhOkUAZ05+ap0L+IlXh4lg8a4l1593FybkX0VtpYWKGDsYyg286/h4UUNM7nZ DDQEIJYOoRPnjypUuSkc AHUpy1hKD2yI78JalLqLXezghBhHEnTXj41TOm3B0+VX3/3BjKrXbm4aoQW3VsZStxsmnhN7vca4aiG6 Nn2l9DHkHKmoPw3EaY5k fvs7+r080vkYwkKt1/0JuCJVPaMdpzqV3fIFAbxjZLtdjBZjcu607xVdsyYWA8tgxoFPsuiRtzn2oHaX TnCmrNsRuErBpcLHn8tT cj3Yjro4xdV40NgP8XsaoQNNJE1qs0rxToShYJwA5jN/Si/2ynzINLjW3/FdRk2tX8ESemvN9b/T58+K nH8qJrPc8eYo7JKuPIq2 aoy/J231ILU4SB4QmZGPPrvJX++CE6ORsDQELCz9OE7E+FS84nwJg8r+LHHHlMpcvLXX3/CxybF6lU66 Ugxw4lWnbpsldorhrCoe l/Xgc3YqPsEAHwXym35yJS/3pAEBlFPX1Enjz/1k08+UTEmlSpVuurhIPzLL7+nvNPLcJCeev0CET+PK 95DH087S2hl44YIKoivS WkDxZ1pOV7WC9W53Hk4jRfsRRTWlb4dIB3//RAkm4s2XqTCHiuVlxtIPtLrJ1+sAsWRFpBO5fw66LARF qEdEalhFbeTvVh7JCD3n qbOE724S5ZHdImsAwfXSyGP5rVZm9D16AIrKWixJX73xdGeJa9VEQnkm0lHBwLFZvHdnV+i3eIcc1z0G gkc3oveX5KMIM9Gemmac HX+ktNglPBszJy5modZprECg9H8k6679q2uSc09e7M43Ws5TAAaHTdvL5q4F//8c+SVgTQGr010MGct4 2+/IJdlrbb2advR43jlD jovXlcD6MIXJlA8rVsgu//9vfcfz2LTSmcp8cFxUxeuNKXykFPwwJvzeaeNxoWK7DqPvrlhbkLmzKQrV AwXarFhEyOdaWkjScP65 CBy9IG9kImaiS/FxZOv2Ph321zT1T+++jrw0coMkQ8wbBRmazwhfzMnVtggxjZkFwRtNQtjlVWuxlMx2 eNY4GHlHCtEm38XsRFtU QeNBc/L2sAFvlVUzNZjfwMC/O9//5Zu9DRhUfg3/B4PTZ5bE7WaSr/MyAxyCMvjkNQm3Qih48KEZGqDR mJS8sHzp9digq8++KGxd XeH4FgQQiEw4ppyqNdc56kAp1Cdr48lZ1uDtnwWRMnUD3VyPAecqQx8obHcrEwwhWz5JkdSdGBjta69H wRXV6RFKD+KI3EvG7bLS pMP2vxYvlA6cNBJlibM6XJUb9K8m8LsPMWdW+7/+dbvZTq0lK/09raTvYCJSuS2//69HiVW8a5qibxrL eNStvFkPYQ7XLCuiEzMB Vv469UpIt3lYSExWD1/GDMQ7nlKpKEPv5cdSucs1xmCb5NXJITQmzxn0LCmwFJy4j197gEYrsCIC65+z zTmAHZSHrKs08qEf765o 8xxOx705ijk6QNHfnYInKSDaeJbpOwIy/Gc1wMOVHIHvhTRiv13PLr6debiRz+0GbLtIW3H1MFnaqxib 12e9/7777ftx/XN35qMV MJetceOVzvh0HQMeyTohdktqTDHDazVyKQDX3hEMGLTn9wbFFf7+esoKoy81iKHfe4JZj1opBCnWaSCH wbcHvH2rWA/h5nY2QXwe vpHl2lgn3897uRTEe6TrOORmr2dPuRA63zicXyk6T36sLJrvosDVUhjWqc5mLqCo+nUiWOD84tidIMq/ to4I5OfXKkzKTEdtWO05 jsTIKhHsP+HZ83QJcMzgqKEBCCXTto3UrOOHtYP3vQbdx//mJbDZ00RmLLpVyoi6z704wH+U+jiOG/wL hQPRDGpfFPa9nyaso1vR BQE384ngrNzuGaOua5ooXJPI+7o87HT4k1FZw33XBn2isRB//zzzzKsQaWP+LwA+yu8goQMxGks/LTDS 7nDYTV2Oi6X/aGKyUr1k 5wxefJkl/h4WXR2Xwp+/Yb2jqJGqwv7hd9mPQrk8f266TpqxRYKV2ngZGj1n26nKBXwirv++ecdXou+R jhUltYGgwaCyNGxAJVm5 85gNrh8saTX8x0qXVE6B5nJzZaSQpQ5LuVfUEIVkEAglq8XzbUwfZ/+1i3KQcYNM5Lv174CWThU12ujq 9xaXf/+/VUqE+u+smXL2 vzQkJzhSoAAHA+c6KhOg0/FxPqodqJIceSodgEVbI9OqSgHO69JOE2SjS1nqblb22DsAHb0VKC+QaN3h D6K43Ikv/RFJ1ceBHZjX ln3djDVDz7scQLKIKUqePywkDzsgIaotWEFkKGczfOTg0tzaduuALgATiUKkJSXADvagZOHoTSAL6BTa j9gjCYQQ88RH4HnaM9// YL7Ll3SA6/K5sJjMdyrGH53cv4Svj+JugjrGD17rSkkRf6yKamw6mZQrIDOFFE//JULxBbOjWtaFt3e1 mJH0uqAJdjUncyqaMDNI 79xAgkE2cb2tV028thLr0AwXwhUsqOUS/TLL7+TeH0eBI8x7wBVmSLEYpIrLAjz1hk7k1J5OBJG11TVh sHV/euLTRoA5HfsMTpT3 bwiytLbqRhaC8wrk1cCoe+zAkQex0m83o775xXF5JqEL79ISzbjYHMr0TESSqvGQtj9FkpOksR6wGAI+ 0DCYgsELHLO8W70PGagr 2iMemXFZM+5txcForE4F2WQi8+gB9IylQXKIwrqz4Df2nY++nDpziv5NkoHhNS5kNnalMCxjcPiZWbDr cd8AcRHFMvAnPjsFn6FJ LHGD2PQoWdmPoJBKsGr5qT60Gu6Ys1q8xIkXhDxFCga2evUNmXxlorGtJ+Ei0Pjcf4++knmc/ToURVjg ggDz4CQkf3aw+6KcQYsu Wu2LN30RSWaAmkyB6Gr3nwJC/jbY14aoFncJdRrvTAmrRNVxyBhNZG78vQbjQDlNnG2MVq29dTnftQS5 IjwN0t903RpLuWD4T/v7 YzqBFb7jsRw7FISRNZwwSvTzsOOViovWI91LUAyBK/A5ywZikWOep+RJbM0uThngAzdneOBMPSyqOXmy xMwoGWwTyt15TtWwVk62 7nhWWu6Us0RkEdfVhfoEZdDmBggGr4kkhsaHekvJxXtiaNqgaHj0NtevUhdf6Ika1VZKcmCNxsJJ40Hc LpN1mLtZmMPvh0MhKatU 1Wv3ehc1mCgHIa5plFfszvWSV6IF8+yH/mLyJoVsPumd3H8ZHfcbjf6405HA6qEUmCRllv+hG7IO8r0Q n52oVob1ei1PbCVsOaDt Atkinson/J2C+ZtASVLe3bMavBce0je1xM2z8mkfQwZIUtxyg5nAj3CHPLUtfdIR0QZYFsBP7WFBt1D5RUxAOI FnTZ89uOYPEGCCpQLsPZ ggjmbVpvDglWfVZszIZ5rUy5IwlfSoCgbi4W3YFTJMF0tia+J4mrPnwycrWS5A0UKFoNXI2M3VTgjZIS ZLsspnTk2xR6qUIfuDju AqSenpSBkceWgAoukgmWRAgFrrkrhRmgvCZxXaCZDaY1yYs/J5FBQjWCwinuMBYqob9Yzu45d9ff9kCA 1Nu7X+/oC9Ine5vFFpzx UALF7roUQWJVURq2g72t+5Y7eCsXVrW4VcrLOeMW1IjHWnOMIoUW1Uc3GSwKWdi3vAXajXrbo5RPi5Qj GlQcaExgXtRpUoVWSmhG a2ItGnbT9/tmDjiGTU0scJRrGPRqLg9SrORzGWsS6ll8t7V7oiUvNxJ0XgvWkhCV/CBEBYalaygMJESz 0No3iiu9IpA3NhFwRTJJ wFDk5115UxuakMCTKWMZmZjaAVhMZMwYQL1GuzroUdhdyDwglbXJOvVTTEZnRY6Dn8+zme8gOw4S0e9d vs48fb1ewVO4KnckKPRM ++jykSGNZY21mJhPVc2zBowe3HZCbs84f/Xmiqcy71QqfY54DdZ04IbWowU7E4ev7UDW3OJpvXSiieG8 BO8pGD35SNLOqqCcfhDE 3oADZjAufoC05immyqjT/uuMJjOId5+2dVtp9I0v4Ob+eYqKpsmrXMjLyodLHIsnvwnEJ093ruQOVHtI B1knWkO3+hZ7Yly1scXO 8Q7G/z28yUnCtqp3tD8jImf7BwSEXF9MPEQeT8r3FI1NkxN22A/2U1b0+S3ozZWuvbCcWMAeuba9EL2/ 5fldRpb9MuMy4J4xjNuN sXWt7gZADv6IdEpQSrSy3LT7ufBJih7DYaOsbmujUz0YdW7hU35UuP7DhE9CRiS16kWG2vlLATyd6E1j nRheZfagp4/5GeUxi1LS 1AmYGwbB3cACUuPLAdQ3vqVvZPx3Xv6YPW/7WsopuuOjzEZDBjTl07+cw14oji13y7bYPgh6xOOgcCrj loDidafSpFducHBlhtCE G72iX3DJG9PQNGNUE8FzNWL0ZWgXpPnBY/M+2FqOSOeB2x7pFcTRy4OqJeOvyjpmQ/y9tBngqBPbliBZ G2mIL8mAJxSbMIxGC5Od huutQDR1+jHKRFkKtgtjKkGGR3EAhbhF2tWAp3NQ4AXDNrayAvxNxhvonfr9u/PiyIpTSuxg4862bxJD zRt8jeKrDKBI4HLqj/+K I/3Fk/mQmC/v0yo2qsdwjYCS8HVZx10W0mLC0B/bxahkvsPv6jyf8CnzADGshcZ10SIU3RWeQYk6wnMl RzR4lzOdeEkoryp6ufTI WsESlvelVwhJdEM4u+jm8S+msW0jj27w72o5MVpEewdN2Huk8myCgCYmpC8IqN6bCSaI1JXKJMpR2gCu UMHp/2lqnB5eL2g+1t4+ +23U/wo0uY0S/FVCkm5dykpKYpHlIG92qLVQAeV6j5q30KaVnaUFBODWwXxL4sWcc1ZpqcU3cKwGWhXi hPq1ITDVXEAwtrAynNwn n79+swAEBbXry3NIPoHGv9AR30A9495w7pxFBeRlRory/dZWMDs6W53L4Rngxix9fhqj3uDNL3vWSeLO MESqYT91nchz3SH5lqjW XNTk8OeF2kjhBaE5zzKd7S6rlDnrPDBsDdaEsNeXDn2vkTSjKzKAxvzoRm5ggW69RlGssNaarE61eAud O4c3R/iMFREhHiztsf55 6dcFN087kyT332ppI1NvYNUqZLN1XQR12A1yhpYy8QRkUXn+pq6dnNGQ/ubJ0aU9tH9tt8w4JIodWoEy YRngN/iCoz/6F2Z9FQ/O 8MzZr9i4K0svktcSWyWlmstRbMVknejDyFqb/cB9Q+6LZEG6/YvGobE6YmwX90xZMCu6tHTQGEfqUQCV EIJi7/6t9vwpgiprbYfO cw/W4N3TyT6CLy6rwjgaRkL2ArqCF5LnNotKvHmH7S4uF29j0AzjL55EgCxSZkniHG/FND8+/hvx952K 0/OASLDd1Ydte1uSRJZa JqMLiBM+vkngIUHWn+wsGL+PgK7Bju8PQengmSFZRFXCrk0wVjqPtfFJdg6wuQVb+EinGjDVy3o42mTj oobLCiGRUeg9OCAhkYDt idYgDAMwzA+hWPZCLfS5AlVVRgOAEtTnGInSRLcsZMj/6At0KYRW622QNMLTDbBZnIjAqZX></span> </div><div>
</div><div style=text-align:center>
< /div><div><strong>Patient Name</strong>: <span class=clinicalNoteMacroWysiwyg id=[id number] macroname=PatientName spantype="macro title=#PatientName>ALYSSA PULIDO</span>
<strong>Date of :</strong> <span class=clinicalNoteMacroWysiwyg id=[id number] macroname=PatientDateOfBirth spantype=macro title=#Pa tientDateOfBirth>1950</span>
<strong>MRN:</strong> <span class=clinicalNoteMacroWysiwyg id=[id number] macroname=P atientMRN spantype=macro title=#PatientMRN>[id number]</span>< br><strong>Attending Physician:</strong> <span class=clinicalNoteMacroWysiwyg id=[id number] macroname=AttendingPhysician spantype="macro [...] use of real-time audio and video via Taptu. Alyssa has provided written consent to conduct this visit via telemedicine. The patient participated in this visit, noted that her home health RN was in the room however he/she did not participate in the visit. The patient is located in their home and I, Dr. Carol Branham am loc ed in [facility].

<span style=font-size:11.0pt><span style=line-height:107%><span style=font-family:Calibri",sans- serif><span style=color:black>History today was provided by chart review and patient report. Cancer diagnosis began with development of acute renal failure. Admitted to [facility] with this December 2024. Found to have cervical mass and bilateral hydronephrosis. Biopsy confirmed SCC, PET showed disease extension into uterus, bladder wall. Completed concurrent chemoradiation with immunotherapy, followed by brachytherapy. Admitted with complicated UTI earlier this month. Treatments have been through her local Oncology team and [place]. Anticipates a follow up PET in June. [...] internalbreaksection="false originalname=Medications recognizeconcepts=true spantype="section suppressempty=false>Current Medications</span>
<span class=clinicalNotKettering Memorial HospitalcroWysiwyg id=[id number] macroname=PatientMedications parameters=ListType:Bulleted spantype=macro title=&q uot;#PatientMedications(ListType:Bulleted)> </span>
Per outside Oncology note,
Carvedilol
Loperamide
Miralax&l t;br>Compazine
Trazodone

<span class=clinicalNoteSectionVisible id=[id number] internalbreaksection=false originalna me=Allergies recognizeconcepts=true spantype=section suppressemp ty=false>Allergies</span>
<span class=clinicalNotGrand Lake Joint Township District Memorial HospitaloWysiwyg id=[id number] macroname=Allergies parameters=ValueIfNull:NKA spantype=macro title=#Allergies(ValueIfNull:NKA)>Cipro&l t;/span>

<span class=clinicalNoteSectionVisible id=annabellaio [id number] internalbreaksection=false originalname=Review of Syste ms recognizeconcepts=true spantype=section suppressempty=false&q uot;>Review of Systems (Palliative Care)</span>
<span class=clinicalNoteS ectionVisible id=[id number] internalbreaksection=false or iginalname=Palliative Care - Pain recognizeconcepts=true spantype=section suppressempty=false>Pain</span>
<span class=clinicalNotK[facility] HospitalcroWysiwyg id=[id number] macroname=PatientPainScale" parameters=LookBackDays:All spantype=macro title=#PatientPainScale(L ookBackDays:All)>3</span>
<span style=font-size:11.0pt><span style=font-family:Calibri,sans-serif>The only pain she currently gets is at her nephrostomy tubes. She will take Tylenol at times for this, 2z433oj or 4b702en. Feels that currently it is not severe [...] type=section suppressempty=false>Physical Exam (Palliative Care)</span >
<div style=zabu-sdikr-omeu:none>General Appearance: Patient is awake, alert and oriented, in no acute distress. Patient is dressed and well-groomed,well-nourished with no evidence of self-neglect.
HEENT: Sclerae anicteric.
Respiratory: Normal work of breathing with conversational speech.
Neuro: Alert and oriented, no facial asymmetry.
Psych: The patient is alert, attentive, and oriented. Speech is clear and fluent with good comprehension. Insight and judgment appropriate to situation.
</div><div style=jxjc-voevl-cuyp:none><span style=font-size:11pt><span style=font-family:Calibri,sans-serif&qu ot;>
Comments on Pertinent Labs/Tests: [...] the guidance of her local Oncologist and [facility]. Please see below.

<span class=clinicalNoteSectionVisible" id=[id number] internalbreaksection=false [...] spantype=macro title="#MyRole>Physician</span>
<span class=clinicalNoteMacroWysiwyg" id=[id number] macroname=LocationPhoneNumber spantype=macro title=#LocationPhoneNumber>[phone]</span>
<span cl ass=clinicalNoteMacroWysiwyg id=[id number] macroname=Locat ionFaxNumber spantype=macro title=#LocationFaxNumber>[phone]&l t;/span>

cc:<span class=clinicalNoteMacroWysiwyg id=macro [id number] macroname=NoteRecipients spantype=macro title= #NoteRecipients>Axel Palomo MD</span>

</div>

<div><span class=eSignSignature>Electronically signed by Carol Branham MD 05/14/2025 09:56 CDT</span></div></body></html>
--- OUTSIDE RECORDS SUMMARY | 2025-07-23 18:31 | XMS_ITS | Clinical Summary ---
Author Organization [facility] Address [address] [place] [address] Care Team Providers Care Tongsman Name Role Phone Unavailable Primary Care Provider Unavailabl e Source Comments Patient records contain information from all sites at [facility]. For routine questions regarding patient records, call [phone] during business hours, M-F 8:00 AM - 5:00 PM Central Time. 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 07/15/2025 Clinical Communication Department of Radiation Oncology in [address] [phone] Thelma Streeter M.D. 07/07/2025 Orders Only Department of Radiation Oncology in [address] [address] Thelma Streeter M.D. Malignant Neoplasm Of Cervix (HCC) (Primary Dx) 07/06/2025 1:52 PM CDT - 07/06/2025 9:03 PM CDT Hospital Encounter Department of Radiation Oncology in [address] [phone] Thelma Streeter M.D. Malignant Neoplasm Of Cervix (HCC) (Primary Dx) 05/11/2025 Clinical Communication Department of Radiation Oncology in [address] [phone] Moon Gong, R.N. 04/29/2025 8:46 AM CDT - 04/29/2025 12:08 PM CDT Hospital Encounter Department of Radiology, [facility], in [place], [place] [address] [place] [address] Jessie Borden APRN, C.N.P., D.N.P. Liang Foster M.D. Hydronephrosis Discharge Disposition: Home or Self Care 04/29/2025 Orders Only Department of Urology in [place], [place] [address] [place] [phone] Jessie Borden APRN, C.N.PTaylor, D.N.PTaylor 04/29/2025 Orders Only Division of Gastroenterology in [place], [place] [address] [place] [phone] Freya Mccauley R.N. Nephrostomy Status Post (HCC) (Primary Dx) 04/28/2025 1:51 PM CDT - 04/28/2025 4:23 PM CDT Hospital Encounter Department of Radiation Oncology in [place], [place] [address] [place] [address] Thelma Streeter M.D. Malignant Neoplasm Of Cervix (HCC) (Primary Dx); Abnormal Urinalysis 04/26/2025 1:00 PM CDT Comprehensive Visit Department of Urology in [place], [place] [address] [place] [phone] Jessie Borden APRN, C.N.PTaylor, D.N.PTaylor Hydronephrosis (Primary Dx); Malignant Neoplasm Of Cervix (HCC) 04/26/2025 11:40 AM CDT - 04/26/2025 11:59 PM CDT Hospital Encounter Department of Laboratory Medicine and Pathology, [facility], in [place], [place] [address] [place] [phone] Thelma Streeter M.D. Malignant Neoplasm Of Cervix (HCC) Discharge Disposition: Home or Self Care 04/26/2025 10:45 AM CDT Lab Department of Urology in [place], [place] [address] [place] [phone] Thelma Streeter M.D. Malignant Neoplasm Of Cervix (HCC) 04/26/2025 Orders Only Department of Urology in [place], [place] [address] [place] [phone] Jessie Borden APRN, C.N.PTaylor, D.N.P. Hydronephrosis (Primary Dx) 04/26/2025 Orders Only Department of Radiation Oncology in [address] [phone] Thelma Streeter M.D. Malignant Neoplasm Of Cervix [...] In the past 12 months has e [employer], gas, oil, or water [employer] threatened to shut off services in your [...] your living situation today? I have a [facility] place to live 03/21/2025 Comments No Sex and Gender Information Value Date Recorded Sex Assigned at Female 03/05/2025 6:51 AM CDT Legal Sex Female 6:12 PM CHARGE POSTER Gender Identity Female 03/05/2025 6:51 AM CDT [...] st Contact Info) Description 08/05/2025 8:45 AM CHARGE POSTER Office Visit Department of Urology in [place], [place] [address] [place] [phone] Jessie Borden APRN, C.N.P., D.N.P. [address] [place] [phone] 08/05/2025 11:00 AM CHARGE POSTER Appointment Department of Radiology, [facility], in [place], [place] [address] [place] [phone] Jessie Borden APRN, C.N.P., D.N.P. [address] [place] [phone] 10/12/2025 11:00 AM CHARGE POSTER Appointment Department of Radiation Oncology in [place], [place] [address] [place] [address] Thelma Streeter M.D. [address] [place] [phone] Health Maintenance Due Date Last Done Comments [...] this topic Medical Devices Implanted Type Area Stretcher Leveler Operator Helper Device Identifier Shelf Expiration Date [...] DIPSTICK, U Routine 04/26/2025 11:40 AM CDT IN OSMOLALITY ASSAY URINE Routine 04/26/2025 11:40 AM [...] CT Body (07/14/2025 1:45 PM CDT) Narrative [facility] - 07/15/2025 10:04 AM CDT This order [...] PM CDT) 06/30/2025 3:21 PM CDT Narrative [facility] - 06/30/2025 6:24 PM CDT This order [...] the report body. 2. Exchange of the 10-Dutch bilateral nephrostomy tubes, notably with two catheters [...] and draped in the usual sterile fashion. Chairman Emeritus image of the abdomen demonstrates a single, [...] and exchanged over wire for a similar, 10-Dutch x 25 cm MCL catheter. The locking [...] then exchanged over a wire for another 10-Dutch x 25 cm locking-loop catheter. The locking [...] then exchanged over a wire for a 10-Dutch x 25 cm MCL locking-loop catheter. The [...] and draped in the usual sterile fashion. Chairman Emeritus imageof the abdomen demonstrates a single, left-sided [...] transected and exchangedover wire for a similar, 10-Dutch x 25 cm MCL catheter. The locking [...] then exchanged over a wire for another 10-Dutch x 25cm locking-loop catheter. The locking loop [...] was then exchangedover a wire for a 10-Dutch x 25 cm MCL locking-loop catheter. The [...] the report body. 2. Exchange of the 10-Dutch bilateral nephrostomy tubes, notably withtwo catheters in [...] the report body. 2. Exchange of the 10-Dutch bilateral nephrostomy tubes, notably with two catheters [...] and draped in the usual sterile fashion. Chairman Emeritus image of the abdomen demonstrates a single, [...] and exchanged over wire for a similar, 10-Dutch x 25 cm MCL catheter. The locking [...] then exchanged over a wire for another 10-Dutch x 25 cm locking-loop catheter. The locking [...] then exchanged over a wire for a 10-Dutch x 25 cm MCL locking-loop catheter. The [...] and draped in the usual sterile fashion. Chairman Emeritus imageof the abdomen demonstrates a single, left-sided [...] transected and exchangedover wire for a similar, 10-Dutch x 25 cm MCL catheter. The locking [...] then exchanged over a wire for another 10-Dutch x 25cm locking-loop catheter. The locking loop [...] was then exchangedover a wire for a 10-Dutch x 25 cm MCL locking-loop catheter. The [...] the report body. 2. Exchange of the 10-Dutch bilateral nephrostomy tubes, notably withtwo catheters in [...] Provider Not In System IMG DIAGNOSTIC IMAGING IN OCEDURES Final Result IIMS NA * (ABNORMAL) [...] ADD-ON Final Re sult Performing Organization Address [facility] Co de Phone Number [facility] [address] [place] [address] * Osmolality, Urine (04/26/2025 11:40 AM CDT) Pathologist [facility] Osmolality, U 652 150 - 1150 mOsm/kg 04/26/2025 6:45 PM CDT DTL Urine 04/26/2025 11:4 0 AM CDT 04/26/2025 12:59 PM CDT Thelma Streeter M.D. LAB URINE ORDERABLES Selina l Result Performing Organization Address [facility] de Phone Number [facility] [address] [place] [address] * (ABNORMAL) Dipstick, Urine (04/26/2025 11:40 AM [...] ORDERABLES Selina l Result Performing Organization Address City/[facility] Co de Phone Number [facility] [address] [place] [address] * pH, Random, Urine (04/26/2025 11:40 AM CDT) pH, Random, U 6.2 4.5 - 8.0 04/26/2025 6:45 PM CDT DTL Urine 04/26/2025 11:4 0 AM CDT 04/26/2025 12:59 PM CDT Thelma Streeter M.D. LAB URINE ORDERABLES Selina l Result Performing Organization Address [facility] [place] [address] * (ABNORMAL) Microscopic Manual (04/26/2025 11:40 AM [...] ORDERABLES Selina l Result Performing Organization Address City/[facility] de Phone Number [facility] [address] [place], [place] [id number] [place] [address] DTL [facility] [address] [place] [address] * (ABNORMAL) Urinalysis, with Microscopic: Urine, Nephrostomy [...] ORDERABLES Selina walter Result Performing Organization Address [facility] Co de Phone Number [facility] [address] [place] [address], [facility] DTL [facility] [address] [place] [address] * BI Breast Diagnostic Bilateral (03/15/1998 1:14 [...] she has had a previous mammogram in [place] several years previously, and if this could be obtained and the area of asymmetry shown to be stable over that interval, the six month follow-up would not be necessary. Nothing for malignancy in the right breast. P1,P6L,D1,M3.9L,U0L Electronically signed by: Joce Burton M.D. [id number] 15-Mar-1998 14:16 Procedure Note David Burton M.D. [...] that she has had a previousmammogram in [place] several years previously, and if this could beobtained and the area of asymmetry shown to be stable over that interval,the six month follow-up would not be necessary. Nothing for malignancy inthe right breast. P1,P6L,D1,M3.9L,U0L Electronically signed by: Joce Burton M.D. [id number] 15-Mar-1998 14:16 Gail Law M.D. IMG BI PROCEDURES Final Re sult from Last 3 Months or Most Recently Relevant to Health Maintenance Insurance [facility] MEDICARE Advance Directives For more information, please contact: [phone] Documents on File Type Date Recorded Patient Curriculum Assistant Principal Expl anation Advance Directives 03/01/2013 12:00 AM Leg acy document. See document viewer. * Full Code (Latest Code Status on File) Date Activated Date Inactivated Comments 04/11/2025 12:44 PM 04/11/2025 7:01 PM Question Answer Comments Full Code: Not Discussed Due to: Patient not available
--- OUTSIDE RECORDS SUMMARY | 2025-07-23 18:31 | XMS_ITS | CCD ---
Author Name Interface, [id number] lity Address [address] [address] Organization [facility] Address [address] [address] Care Team Providers Care Deck Mechanic Name Role Phone Chica PALMA, Sarah Gallegos [...] Ordered By Specimen Source Lab Address 04/26 [facility] [place] See attache gomes Medications Date [...] Order PET/CT scan, sku ll base/mid thigh Kiefer Ordered 02/02/2025 Physician Order RTC patient teaching RN Patient Teaching Visit Ordered 02/02/2025 Physician Order Radiation therap y consult [facility] Ordered 02/02/2025 Physician Order Immunotherapy Monitoring For [...] requested Me dical Oncology for chemo/radiation at [facility]. Weekly Cisplatin and Q21 day Pembro with Radiation at [facility] Ordered 02/15/2025 Physician Order Port placement Order [...] clinically indicated Ordered 02/16/2025 Physician Order RTC PRISM INSPECTOR/PA and infusion to start with RT - [...] style=text-align:center>

<span class=clinicalNoteMacroWysiwyg id=[id number]" macroname=PracticeLetterhead spantype=macro title=#PracticeLetterhead><img src=data:image/png;base64,eFCTJs9VLgdWSPUIFUrYEhKEZJLPRXIbWVZIQEE0E8tTK OQLPGRYQ2OLwk6p4SLJBUAzUX0JQJYjlug3ZPJMCWNKmVgSazFYMzDFVH7LXMFnUlzNGWeCXCHXJLcg5 O0MeLG3QfyXWemaikS0D nBoVlFGBNwgCuqVNsiPPDLUJUBpGuHPDZlqUtiTvFSpJRES2JcaAx2DIcujO+u8/Kui2oqs0c79Z43Nr wafdpgwpHeOXcOP1qqIr UOGAAsKMfqXfvNwW4SxJLS6kM/zRbmPBYbWwZTiFQXklIUNEVXdLPCPUPUJjcPLb5KQhhYIp/gECxCGY QjXN1uPe6XzzFn3Px1ae LyWyOakjnDPuMJpk70KWyeeMGJQm4utSHIDcFvqoEQzMc8eC2aLnOjhMP3zlQAThqu42qnxoaFT6rdPO Rd8p5FEq6avvSw66qVDX cUaEbQv5M1aZjmeVfMJEIb7TIuA6pnyrMn8tUihy3hTByKLWUqLvSyAieaNYLfRkkW4fH1cyt20bJCiX /KwUCqgm1OAn7kzh9Lr6 6oQw1x/sABhrlu+/lxqkg5518O/bZAJySkfZilLa5mLGxXxxruvGOPJSYXB+AdQYHAQBQQQrV7+EU0e+ fEhYHkS78NRkmyxUz5Xf 58IUwV6Rseln1+gPPFW7l+xRx8a//6vMeqTQcKWJyZBe6+q1C8FBocAt05v+2ZdQCwKdqSJpJ67xEnnz Tx++/btVL9+felnmOsJF iDMdUdGRgYFBQVJ/aTKwSbVrnyTFvvNJbCBUTvVM5U8Hr4ay8/WN7KCje8kNa+IkjwhdUAT3mtYJWggD ULhB5n0zqxrqqClWQ7y6 Jlox54xP5QWsv3B216cAgXO2VBBOHafFTSnvvUaTp0emOk2vG64SJPgNqsFGW+2kb36sCgBaMdgtF0mh IEw/wpWrFhB8+fPp/Xr1 8UuMcJGqDtBNo98eKZjpfdcpMUT70WkHZxG50B/mszSyjy2RdCXIRGCnGSDfL5gNbLsSFQEkBMfPw5dn 36yaAoiDmPnn8DsKHU83 CAqvYOZA0xker2LFaXEolIgasSUbvNHBoSl1Mi87iv5TWjKRauCeTeapGjRV8y0/NNjBFug5cEuNd+6s 53fvntwGmParZBoShH6C lZmDsQgWuUt21rSzJJXBcKZh9ynnR4IviE0Dr7cm9o+thr6CPYDANLFfGTKYOdyZeBk29//vhQmDFNQ4 Y7zyhUHtJDuEDLFU7BiV 8mVoN691cqwkwQcBFy47ojoQcM0S33hLv8e0u6iem+ngMiSC0kqovkBq855It/FssyoUq9nxNVFjEjE8 qYLMH7LLZF5EJf2Ijw4N pIioqLpu4+A5S47RfJ1HZ+gD2e+EuZYf2uHDI9PDh0K26N8fG1zH9I4f++W1+yYFPyEMd69IP8byFJtx gaOaDNBKHWRscYuxrc5j UnSCqe8xbL8lBmGKKIA0z5+v6Gv91lEP4VsXzzMe6497r/IMNadTzO+FAVKdeQs781EKnLGc45RGzPZQ tnSt2/t0drnWj5VaXXQc 4YuyEksCXprtjKpmb92ty/UDEhCjNMMqhOFeyVpoQ3uKwO7QPk62ZNc8lZmD4QUDvsCGxMROlrcb14/M NAY/tK1D2wYIXiRFqkEJ +cafn7+kn2BJlBAanCKEHC7KdBjlQM5h51ra6WvCtMHY004L9CbtTMCQGPuvDW6dLLAMObm3WxAlyBBb 3QcCA1JHi20PtnIjxEZT 6W/of09bNjfSip10MdmtAAW7mgSf7c/pEgm3FJAEgrIc3PW1knBR5uJpi6xsQzfYXGLi5NVXeMvdYzr5 qgtbozO9Ak4zdUcau80S a8hJQWANQt4C/q6wF27vEFBCMvCePwxNrsZT5e++uku3lojiqRjU5KdfHqVFQkELUIoZSHwbPXQxxBSr QLWTZgIiMUPf//9dxXrG gy2//roh5U9F6SPbskjXWf6ysmX5dTAoD5gcytXZ9n9gxJTKBj+/35PmCoQAw3wzGbIYApNlxV20JPWX sJ8kCysz97+rZ7HY6UFt jEuEYlEYk2AUQ4junxnzlm7zRrPavBDcPbajfnfmc2YDQ+Ex+QXiX7/g+iR7XQvSEjSwXbA9EBWE1qiB kddBxgXnhifWs1j5slkt El89RDCp3/A0ITsX7iLWQlRpdDul+lK5ZHO2BzRbyZE1QiMnVSy52iZuQwxQ431qQj2n59xHpVfSQTmf Z3cPvLIe4NJtYGG9EvjK eUqVdQexwwdOlRuddeZO/AKkcAbcb9YqxW0UpAxWTHBd0+aGTXKgthKvGyZ7BklxtDDlrpjJlGJrRZ6/ PhxGd+pLwNps8wgIcLt7 fzfec5FhRzBwRIYGoeali+MN98qL7RJTZBkLbdoeDprpvwObG4MUOxyKnQYudovCKOmBGDaFSsbeqe6x NG/c43JwclPTm1lsZf+c nD3rMnQZxMwVAK059dDPqSSWTn3IPsMysXQc+6uawwPmnKBgs3LvJnikE/848UA4ze9rRqRIRsjQhWMG MX6NTtCIP7YURqJZi0ZH kVZVnq8t+miT2Uo557zW2013yiXS1N3q+3b0a1De6fhNnfm/ouXlAkOZNzI2Aa+0TlTRg38bzBNZcyJ4 wERGTpyqWkZlJCYRCdPn pg4Jmhkw1cHGQFs1lQj9bKsrYV14ohmC0o8ikjYHNXrtKRO2j1AZxg6s62NIPstCJ5AQnIWwuz860lTd qCKP3UpM6vM1MXynhNbS WriwAA/ChCl+MDhwzTsiScoICCAbqhRnSa8+DIe61aBdmikz5/PaKJZUMQxxS4wsDyo1MxHBsX5tAdkI 2DdBEzBm2IXEhiLKyWsf OGwtTr/oAAKDQ+w9wNLGYnTbHp2X2GkFtlGeZXHW5kbkZsq/oGysHqZ6k9+dHPbLrj56vkt30j6aHopk LOqA82uz6hJnBsNpToBE Dj+kjetLoKjQfaYAbQGEVtQTIToKYLZLIOv7Bv1d9ydbWys3lkr9yWp7l1CFDgFiNyX0xk0H4JTGYM1L ks9c2F8xXsuuym75bGWo pFWCzPzF1uWackXQvDmsuy7ihA8WRiq8QlM17leMS6/c5fRf+SZNhbnJDmekyutQ8qcVhcGSDT4pHg1e mGY/C3ZVZURfFp0HQkmx qJlH+eokDvffoex/uqkYAtJlAZyL2UuxgUapZeWwnRpo4k5L2OSONgNCP0TcauCQHmgNpNkE3+BzLtpo +vxRLSNkMhjEjbs9q21o yw13623fx9pyv+MkqVKSz/FULO1RhVCaKFm3IXNpwoH2ieaHrEHQB4G2WJ/irieCkJaOPMtp8WAk2nDT BJ5xFKK98mLC9zoehX8f nMLbVy/gZIyDWm+uzmHCGSVcSNG31KxkLR6tpYlFcEmvBPmdbZ4+VXIZzMVp3VlpVITl/wpUByTkJZJE 6jFadoEG3dZRWaZgEk70 +9XIYbJ//UVDHQtmRqQhMUIcyP9oUfHKulOZFy5nrZgqB/XoZJfxNyTq8yTGww3OHH0uW7qF1xGlEOx7 GBDr9SPC+CZTIl8oTFy2 qYiV4ZXr/2014h8i8m7beBNgQ3KYWcDY3UZ+w+By9C1XBEX6VItc22TT96uUFQsPJK3+w+H4TMAPBxdI SxWTJLRuCeJjpgs2gsJT GZaUtjCdoLjGRZmnIm5d93zHFe8HRbmgDQKrtYMRSwmydhMpU3kMeHeGANit5q3WF7R7LgF9zY8kMi3a ZRl7SsswRc+nurUrUcLl oRWVgao9L/sakD1Kp7R6tbomva6ISnGRkKxVOKj9KZWM6wAkH/ICTfdXcVDxvPL7Uo0w5hdx7Xl3H2ih cMZJiCPS1nE1+QWVkxYX 9k5MDzCzkm/LeBT07eqdldWl3oP+TyIE2OzOAMTBuP/BCa96QWixFLUtqC2Qb20YV2NXU992keRA5qU3 HGoUX2dhTtil95GyjWk+ bDP3LJHZUfZ4mFUU2vz/DnOK2MVitNlCb+eTQ89+XO3W07xXByoxVv50Lrqdu96WXXLLpPHeq9ACEzTq cTUAcgLjPLlMhfCEv2Ih 4WGhdGvew/Ztp8fYE233CAhJVckSHmnukCBzPalODr7KTAyLv3Sl8bOIdpn+5hm6lnT4U27V3SfSyWnP 9HliZastzSI0StX8+bNk 36GyY/wQXyVN9PTvacwnJD24p/6ZbrvqdEUd+9eDGjObGbsRXaRniDn3LIfzQr/lk4nZX/qUQL9qE5qL 9n1FcID0m1uu1SKFhVaD RkoH5GmDHKsDSEzzGszOh9fTSwe3QxgYjQRKTyG73SMdiQcfn12u273u2e/bqxI7FOCGhG6ZdYNI7gxG clGs1vDdKgMjzQ3bHMoF 4l5JYbIXc+iv7VRs/FNNHXtFrp0+hz6fGT/NCMhORdqgJCrS09JUbn3OKUMRJIGec0+gQEUEhIgKuYwU XFqGCsuZO5NDrJiKadEZ v43lnR/sd7p2LGMMYtSbq4T4GI1/UDRXb2KoHoAMCZ7BRQjH00J7YlppAyRJiJj+z8p/sDErgF7KS8/K yOuJL3z22hN/p4JpgBqx uRHuAuLyXcMHDhQ+LhEd1oMLu70IQgDZQWkLAfwrkgov1Nix+X+oaDvlkiEhFOCQTE5rYc12ozCVjdPT 6oy53NxWbTe6/kPg+U4d 0N3hJvT+LhLdM/jy5ViqYqPt6ZKYa2/1DC5r+3HujypLAATT4sbgj0ilZZR8skP5R+wznX38FXStoLZR JOvgEns/Ixmvt0By1ani zwHLeDbpF0HDkoqTPrFtLiTLz9rXru/XEJHzsRRTOFgeuPtObR+aAw6Z7uobYxdyFLtXozJIkwsgvGS2 OMNsxYtXcQooiYB6539L s8XlDzvNgYb4P9Z9PLOuzspYZvwtCwvhCr9HZviF0uypCEq3YfBfmYHizwTARKSU2fu8KCAvuDTIXPtA TFwuxXHiwn1YQYaRKOiN NwlOGLa7cKjERbZoYqOKnNHijyQZfgsxsimQxI0Aj5rOXmtGk3LFf+N7yQxJGO6I885C2WB3pipmk2Nu ZA9qRa3WJ/poEh2PXYoV PucDIsIsOEseCX4nWgVwomUZ2kpByTRmNR/88Di4tpcWHq1dvkGk5COnKShbmKsmznCpwQexqDlwBN8d Gne8t4+APS0EZ92fLF0e 9FvRtUXAtPuFabkEpWiDwu8Tdo5/h4Y9b4TSX0pLRcKUspW6RuuUMQ+PoDPlryxFF6x7vm/L9xOeihOQ DytdkUKDqiDiju89lphG x/M3N6PxIK0ArsiRDBCbGtmJQO3QWsXjKiTgkwgpE3FUjVGPenybRb36HJ+oxlduVtXKSRYE6UEOj0RQ Rj/rCQLyVsAEWPErJv33 fxxD7jGqtaZEw6kiItR1DPzPAKqkrebDRSNXHoSe0TGL7x7dRg9YtOyBOMWkNU7d+D+qyHeTiPA5XkOu NxFdJ0gABaMEvCO4cIPq lS/lKkU1E3+pyfEAx1xrUCd1A59AVElP1SCiEk9r+vn70/a6a3OeYwfiWVBialSfuW1gCsQQWuV42TLl o0oiSwCWfYjY7S/rATi4 i2CZkWcS04It6La60eKnqjkohzA/V255Vwo/XneO63j88JsdYuQ6M0TXsueZrRIMmIWNgWCNMxQS7d0n dRCJRsOqbEYgAGkNQ0Gj zZdpp8/BFKwDc4RWMAQSb/T3H5QeSE5ypJm8UJh5mwZkeSPXPRrf2skx8J5WjkqR9L/5g/dJ4Xe8Bmkm 5do9b0fYA2iQxHh6RXng Pt6VSRDj55Mrkw7AG/FSqymsedNDiwRMJ5y9Q3nPFZAbR95vUQgHO0ywd7EsEwI3pSUjqWu5AGV/AELE CZfMWjQIOUj+l0HJzMMX mTeZMcp4GC2Xzdkqmh6TV1m2EEIMJoWhl4EugUrTh6nDkbtBIvxXGbc8zb5yI2b+Dc6/FNxmuv0eJyQT 703k+inN0gp6ESJRx2tv +264QptXOlT0TVsAicNsRVMRHlewcsjXUA1rlUX1WS+bwcyW8QwI7vdVgFmOP++PB0/syfCwCzS69eJW +FKF3EDlIf7XSZsyTOEQ gW0ticDTGhG3QHBS5DXXyn0RFSiwsnTcsXuH1KlAQ2cABahv9YapfA+RpTIZzUCNHDlDQ4IjubqkrtXL tKOv+ZM6LQbZVqMzBGlM vdRXowgs9TRnUkjXyMNPbEdEYEIAYDn4UhZJYR0OwCcWYoTfv/ZBObN3lIPrDgjGCjcRoJvwdgTaoPBD yRn99OVErTU9DM0kkZUT Jp7xk+u5NEBMd7PClA6hEQl/krGoxWfEH+JUCWjWwjjJ3+vgwYkrkEKNpMhi7+kLCFEUoVASElOobtGm 6Pfh78yakpKxvSQuBRL/ rpKxAZ8a1+XtyWxI21bojupV8UHcQn5lSdGtrJt2+Esdras+xhfaEdLvrYNmRRjrM1E1YbTcf+xQoqJARJ7 ka5TtiEvrTorsNbTW+6h do/KiIbkrllxvl1HOxKewFsej73PM6sRcR8s1SKCwi0HblPpGGYApVmtQMNnJ6W+8g/RFd6oelOzzCuF ymDgxp1KD2Chv/tp29eG y+PPTu8KRTb7EW4NCA/kHJTxKli2kSJOpLv/7RNUVb8P+nXhTAUWZazmMiQQaeoHbcjqJII6Hm+MrJQ+ WtwsaC22yp7a9Swknszx lvXZ9AbkjMzLP+d7TfKHgebrbB56RZW1yc+/bL6gF7huJ01bFLUq4pAI7fK1wdSRFUaVJYdKH6q78vtv lSL6l6KEMVf6HpuJeDdU gMz66z6c1MmNsNeHGRPfTh+1Kh1dJfDUPtxia7qBbLpRYBZHEH/zHtL7r+vujEWlrrfh9gTQuSto33cc 8sioGU8Ay1pTSaIME1K8 S7+WoPS0bk0r37ieSQ5rqeu2DnvXFGKeli6uuZyaVL14UuZlURBGdp1mfgX+SyFLuGaoNstPHlFL6iLO QYOcMd8h2XSV/+U+xkmP 6YTeYoGJI2+IJt1qnHx4lBHTKeCwxi56smrYSjLi9UQoitSbXgugPAhkgM2COLARjaEjqgHTA0nzq+KHMER jZppPGGVdyzc4rjGsOH1 3T492eQM0ahVkGCtbFctxFH7EdkTWYNnJWPVN5MdUtIuLpY33WQ744BN5yLshRsT9ePrNr0hhTKo+RPW IAw+AZpNFp458/T5Mnmg GWwg4kKMrx/bxBlBgVRpn+EgObVYnWNtPYAPpy1ldk76vikMAww6jq9dmQkdgAAnFXXXWvfnChmgikME TzlcmD03WZFNDIoIKrrT eICjVuAYrVR0GFnd5RAbJBFfKaXE0IZCEHK2WbcC3UfkwDa9Wp5g0CcMoNqSHEZjMk+rUBRXGeHtZ99o pFzNiU731XM9ydKX2Ooz HfQMHXNwZIObFzzUomE7hIYzTAAhkeyBtjn3mbN30gDFCVbV4Ib8HU3x5V3flBcQ2euYyytS/mMholzg JIGMai3Es3XBCMLNhIiz oFHPEv1hQXe2l9yTegmEoY6vWeq65NjVNv3ory9PYa+OBtyvbul7MrTDe+DIqqFSXhYGCWnpVOoqIBT5 Pm8pEu76CaU/zOCStZrQ yqqnYSHivPXzagC1QAwdSdaqu5ZfG6+3FoT61sVbhHNj9JcMwfC2Kf1Jo8wUHGoiM1jV3SOTdba4KCMe qaJdA9r0JvRljPJbpBPd MkQFUDVpL3obJ4+enD5sjnZyn16LkJRN72esb9oadjFJBppAtskzJcMosSGjvaJP2wfcnJjiIV3ltJ1Y 6I5ikhMD6njKp//mlb07 zuqYuIeoB1DiYogp1PM8hPHWb3r9D7zYfxohmAFsZ2/jRynrQ1umXP6ICCfGVL4Z2RZ/n2YD553hCVRJ fJu2AD6b1tP72XePHXQ9 GbMJchMtrOqURViA9PEZ0ve4ybJnC9VTevdom1a1XqqXsAiUYducz08OCXNf9HdpB4ITVy0t3YLlMrt4 Ny5k+rUqUMVb+tGN09+T 7bpKFQJ9q+cr3azxM/KtW7jvk8HfcwRXREkPTRgGwxdwo/AsJwy2qbqAy2DQryrbnmZJtUn2CJn/OnLZ CJJOtA2jv/Dj2kEShKg7 Wqa4IkpqS1lN23FOxp5cY5/8D3faUOQjHkFhBVpR+hG7rLr3T1uzfeVS1vbnkkQfGiM/eCG3ngNP+jkh e3y6180QG00AW3ZQMfdV iBMgeHTTz+dianne+++skst8RzheaU1BJiT6cheJAaNh9TjLQ2OQq1gpa89xgEJi15CaHZzsy0WWuJrfmkWI B5HMorgyxxH11jiM3boV uCXsbGuXH5OoZGN6F4bR+K1w+ETwMYnBk479+oT8dk5iDyzwE8au9fUrc6dLuE5MJXpuWt8yhApvsBUQ j0DTcVKVT9mnyqCAtFGH TTaEJ55rJVrB4JZNx9mLX76liwwkXCDXbRzwSToEcb47r2esrcY3S+YbhMgqIVRjA1/fyFMgikwJFzW9 NJ6o5Dx/jcIYv3Qf8vwo ufcBomFPnJuOuXv5BxsSPMIY5IRUEYLLS0SDm+JieJqs7LMt1THMSlk6AZ018D13LUJ65m2bc+8CBnpy WQIDanZ/E9ddskURfQTt KkwBScCoLRwzrkEo6Izw3cymPggiAjraZWIqzGn/x2oL9Dhl6xXHGMMhBeFQb5+fPc6yFwi0GKfNu+7Y I8SHhfKA65GtpanJdIhl UK0nKYvIe2/sd0bt7mEFv7J4vU9xFQ9u4u9xC+feXuHJWeLLcmFuePbV8OCebTKpqKOg0fizVdVRLHsP lqDa4SBOQgW8AZZGdQSZ n+5XeR/TikzmA+Xa25wZhYUoMP15w/uJQF0U0BntVZi/GvXNANCFcGzYeoitOgl791E4iVkTOCdZ8SpS MSXOMfNN5PNlyjSOVbIw IML7OCBxgHgKJilv99GHgIx0z8Jq6JpJOgsim0LPXWIzrW3P8U0PSmvajfdReDRVfHyXgJwl5Phqf1+J eJS/GjqRJVIUPI/I6nu6 v7M4q9IPIlfISe0216teDcQHpXyVznXPIGbi0QVZxtkCuTNrgbZMKU5apF6y3mjvdw+gZQgtCVQsmRJu WWYggBrIEyBAUubVKtWT manwcjVypIEUgs7apyLdN8ZAQ45iKyREZnBAR0ypXFfl9gF+BvMub3gSJMSNCPwFvJQDVG4jFtZ0Svdf dZ+K/tZkEaCcFc7Mqc+R wT8qOx/F0MDg1fZCbNB5rHlIn+xxRcQ/kCl7COpEpi1d1nXlt26FHQ8DeSuAGqoBecchOmezzvp1WEm6 K/35nHYWO61EI6cbuQJL RYgTIFCm/RGdBtAsU+/PMqlJqDbUhR8z7Dqi/ppgpv8wl18lPlVuztBhh9supGyfXOz0j+JWaWL/0PCK Csjjc4/NYDS//jt8Fqmw Ix41usjvaWhyZUIybL+kDj+Mh8cZ+E8uJKTx+/9T3hThZ1YrG91kkRC6aZFCe/1qFup0h5i/6gYSnzpC UpbvVLG8+iHNYW2M4dnT PFvyO7TxPYaQhEwW9mA9M3HfFHLxEaYcYKUo9D+ovMlGnpHz7XQ0R734WWDel4OxGXBUp8nPWIqOOi3S loogQXBRKzVXwlGCd61C 1Y9m7u7jxXpQ5IN4cHqPRnsIj3H0bVL0SGQJ9A9aXMPpwRYGjxGuusq4vHr82eHOySZvS8ud0FhbQOdd X4Rn+gfQPGnjtuER/Pmz kDVVRwXRWLIFeG4ezHOyihijM90AWDRCdRpmolm9fDfq2RGkSWlFdiXeHnrRkjUhFioYGFNVMKALj8K1 FtB5hSPFfU6RhzNBDc/S unSBNiqCWRR+admTSbY0zxdaWK/KYjaUEaLgE3UDPUBaTv3WBnlfU6ddRhNqh0sAQvHGcHSRSzw4TlIx XFKoPhTWFjPK3QXhA+aN Od4ARQmcEWNWSZ57uAJJaYlYO7ZGhD1BSEptIwGVJHV5JbbvD8yhCyukfsdoJ2xyGAvVaGWo3sIFKa7B ekRwMY332qgGkE17tBhs 1ExZMRfIOOVYUTdmxKt/ZSoRBmimUIzmLmCqFgpom+QP50ztSfonFHgIo+qZCoFq2nJ+b14bAv4mbOJA j9Z3LLO6sDI8FCIe56Jx FTfRwarAyfNyWJn9IgML8WiMm3sz1VHDayFjeL0Zx24DYVTgzxwlWfpedcONPBcZbIKBADKZ+qFHJswi 9BsfIYhtl8wRoBqtV5NE G+uIL/JSYGjqAvV9v4OH76s+e7zPQeE5VEnDuU/W+XPiS155LgPn89hNPu8n0YAl0AykpEXC8BZ2hbQU 9g9XlQjYe/Lt1DVg8zII fmYFXO6EUPijyUQJNBHuP7EdlKXCtZxYDhWTNhloMkqGKYTGIhOXRh9ohDWPaoaTebuOGRNoxS3SOXc1 ZANnSJZjeiPbfAKcL9tO /YtMrb/AZTZj5O7RhPRKX6XQs6Mrv4lZhZ7evaFyuqQ7CtxF7cGLQpQ15WyqCxtAxTIc+a+kDCiO/qQX +6LQQc3pFuXeDMsZyPxV TU07gIW9NmpZqWC0+wpMj5+q7s3BDsbStb60BZ/pm3JWiiLVnuJaiPNr0oZzc+4ZNo6MtpWFTA6F1INP ksJKiSEQTLReVGh/y6Ex oy9qgop4I7S9K7rjeTn1GCxdnDajNmjK5oWMSW2ta8ZlHtkAYf9bxbDT2ARLTHJz6GlnR3EFy5lrFJ8g h4lmDXDfP/nL0R/HbflD YuYO75rha3Ians2EUIcBBWKNBs2zrssxgUwhoCat3nSrBSJScCfHaMQg6WFRYyl4VjO0RiBNX8zYTnsZ Dpg/4qI+MAgolChfYRFE l83GDJzQOHAtOEHd3DhEAr+FBftz15fcsDLTjlXvN3AfZQ3+Omnn+jPP/+YJanoqGBTdCB4hlSvaf52P IlHHEjNblOwiifHs3YFF pTSQA893qX2GpLlM+rIJVsTtmdP0ruZKWQilzg2NutzrXQ+IizRzcguSLatbZQWJOd0bfticCLTmXewX Cu7GgJv08rIzMhQfZtuD mkAFiFXwU5t7lpHfvIkRgP+K7pYBbfMzFWSMuK2en35bffE7h439Q566FGIBBlwG+KRMVBNTEVEtqmsT kM6inXAqYyrY3srYrMmr XUJAEqF4mVKBFplsvd270EREA+HtpRBMMrx8EvPKOrNRJOr6XWMVceJuiEKF11/2nu2y8y968SLxX5+4 48tpOcNex7pVuHr1vWa4 Wn7nMEWwzKTIi1SQEE3u1oxVLJWB1HkT8kZlDZzHzODENMa5tzxut/8H5RKIDrxTJOO933xY8tV62+/r UIWIqNN+NTq9Xrvdz5sW tOmTZN+xPY9jQfOrP0fPrIcGbyfa+uuu+oTIrs2SwMMhJARScyaL7hEH2Tep7AHUHdZTVVtnIIEyMt5q javpGrVqtS+fXsaPHgwC u6AeqKFkCWZlbESNvOiISTqvNRMQMCyMPXNRMKRpiFLb8MZzbXNi/sZEgCQTZtUO9hOKHzUCK8NKtQqE IbxCRYgDMMwjE+wAGEYh wW4pdWXcyZZ9gTfMDsDDBdtCGHETMbO+OBLSOPwKTNcDVuIr6QWRTN+/BblBwUkJEaMn6cajDS2eTWa/ P5I7uaYNGtthRAIEtUPA UXFixenrKws+IWxx8fV4cJQb8ufi91w168sliq31comx3EBA24HNrndeAQKdyQkBnJFhLALtXr2gFUGj tSzZ0+jBDDWHk8s+ROPB Vbrn32I98ofMu4cx2rY8aAVhXniBgDn1XOJPzMdp3zllwcwbHpXvrhGsr1HV0+evvjiC/7SG/Xt8yOKO 9QfD4YESabwKh07wLscv xfQPL59eOo+/yfiyknmkiioJidJ27yNj/vvv1+GGSa/8hP9ORr9r7ab363ELUWQOGpLm6gFtAmxCQRMc Bgl7bMUFPd/EytWrKDu3 chGU5Rqg0/+mSpWrCjDjvjvf/0Wqy08yVRSDCrSUx/tbPpMm7GoYS75Tn8nbDBIf19WcAZYq9StZKxDN 9NihRv9RG32qJAs5IDx+ oiNFd6JN1k55Xvfmf/+jU54rtV0bDOmTebreLnD4wOSa6WPeHowx4C14zKI7jsZEhYWEPVmJ8s6STZkc jvVxgIdfcebd6ivWxeqB FQEzAAGtw66mHIpNYfIKV99NdiIGZYtjmDlezMATi0j+BqD1l4B762Sr4ukX4HXhDUJwHMixauMPviP2 OrRowfVrVtXhUiOh/g65 ullfM1JGwUKlMwvOUalLK+++KLyuQcvFrSPm2++DnTUlMrj47/jev/9/yVUtJfN58eDPvCwXmIKMExw4 VTIO95++73yO6tXylPnD cw/l9mT9Lz023HvhYeZmg6tOyaDQSQtvPumjAcE71u5pKGXG5fKkHOFPbgjxoogrnovtH2du3FaLyOSO ETYzH/PK2lJpXURpNEAp 275niPmi3ErRGyIPCBUesMs038R52LG4LbNS+/bt0+OxyAd+afgSXbXpPtH6LNnShS1Vdfy05USgSAOD 4HJud8oBfJiGPrXdpALr TJlpMN+3Buc63//+422c8glNfh0ZX+BPa6gAWNAVBbRUvoNbKIKEYv8vIXLqh5xyv+VBnBy1X610MQIz MEe1ujoHubIdZd74KI68 qcxTN6ndhMHexjlc4+tUrgHx+Ie4jfg/ocTGea8mMJAFdAAhy29OjL1e3KLfU/8z7yt1xJ9H/7880+aM uLWWOx8XJPlu5701We69 mbrIGhehOicsimrtAURmOfcC51BjAkuEkQjW2bpuIJ8H7qIl5engNSsqsoR3FUu/fXXX/EBrFdOM87RC LftTTbCPFBsD8OH3rRVL 1l8MOujyhQVA91gytzqx5/VrWVWEMb6dLqxupmj2yUhaq74duTg5cIba2zjvfHfLQ93OUC8g7nd3ULEa 8aIdIzxYn73Eha6atS4J dn1sMRQGST7kF/zx87uJYzqmQoTVf1XB+E9wfuN+18j9yEnwdlVR8vm6dQlXIxWiiWv+wxl1TOTIG9pT aVwgXgpvUKcDAJH+sWJp F+1MxFlmGfOgP530we2iSSqPL0LmQm5k9uIU81jdNgpSJimF26tyoySs3GkwBfWHoBrvOBDRhGsT75c5 t0nyhvODn474luCfiXLr Lng4CYIw5wehfy11mrnojDdL7++1liMOPRGMRU0ayusAySr+++/B8lHJXXc2BztvJevcjB8RI+kdLg+I axs+6XgQWp2WeZyeF2SH YJKouHjaNPbbREtEYYKvYnANCBQkIuMBLHPLTgw4RXHqtsIQDwwGl2i0z//fePGG2+W8bnzx74t5mpVd DGxTGXA1QREQvrTJIaK3 vw5ppzolL7c1G6aB4T6KaGVZj4I9tDb6c8PXPFz51goaBQxos6NygVDX/zWSEXGU2LkHGcGcUGwNTM75 jNgY9hqdhfvJD9CR3275 sKCVtJsq8vMz5FIhZJHSETo05014d5KONHAEWaZq9/7Xzo4758zGSklToAbY/TjLMZWfIo8avi+33nnH Vu5e+QHU5Yz15euNfSr8 t215YqtptO/e/Jxcvr0PfmzPBfzcAVWtlHf51Twz/xMHGn7xNgVSel83XkxARgpCHQqpwxLZBaYZ842y lCWEfCw0pGGvqUbzKFj1 Y4akVp51+4FE6o249sqjn/ViYa/8fjjj1/3dmOIcxRX0QQEBTFrPhg3iwXKHyElPBaTd4g/CHoVi8LXQ GCA9P/+++85jvVUgGiee +2666X3Lj7WIzI12pXSMdguflbApElIYaJj156jN1Vn6xWix70eGih6LARNCtKAN/aLlp+KuRrRwpdpR KyNaqKZf8CWVBoStojGd nkdnhcQfvYnZVtFRelq5pbqNRKDOhNDquWj3p6rJtczt8dIpoCOUc6Vix7W9kKDWmlyprLrP8pMQLXbZ j268HYMPzYQXPkkLk6Te q4Lytd4795mNzsxow97dPFg19CXNHfvVJuluXMDKuceGmROMf/i5pusinib0mTsry3/DVb5kKdryE77z eiGaZtBLlVMrFh1ere38 oMIxQwWkBOlUT4t1iiZmmjKPTFoX8s9nrYYkcV2tfVOJOwWq44nyXurvScmlyX7RjUahkwNwVRTFdoHg Nuxgmx2il8RCF/XHUgnV XoPho8RKZgGzHPsxlIdlqgrldgHjGDuU7rjFE/z9Qq7333Y9Jp7w9LNiER6k7B0Ikgo3Ikai77OORGXw QrVZcuWqdirQQvNERA8+ hiCMAdlxrkeB00ms5qT0KiCvNehfCGv8P3eU3be1ierdyjoX1IQGseGKq9llyqMul2b44vHZqdZ14MGP kCutCaANMjPk/fy448/t g6bbyq36Vca47/fhOig5tr5dRMprVKJdkYTSadwxVugVGxmOU2CRsJElSBR+EJae/I3zV6ys/ToIeMcg R4ZR/m4w+jg3JMCUI4Rj O9iSAVoAhotWPleG69yYwHmdXg77Oj6V1lzCzLjcSM1ilQMygDIEhjaoxiWNhL4lt6s+v8dH53wcXVf5 K5XoBELdoU77D1fllSbf +mdZhcwvn8DnyxYJb+ygRl0QJHVV0u2eGUREzNQ/zBX7r5Tv8sKhyDtaPAeZu2bkJiFOokP6GmrSIu5r Wxb3kuEW26y2ax99Uf1+ yNvIe5a4cbY7i56f+IP0375Q7sazwnMqtNlJ+euwkcad+m0pzNZEKzf0F7lzbpgXn2x58VEjbiHz0Znm b++6293nfRWzx0d9wzAE o1kc3ZKxh2U701wV7a4rEDdiTImd0xHdn44OQR7WqdCmZj9VpdG3voRFTLqdKzy8Wz4AlOsz/112wXCO auUfw62HFJ4JXGF6yaUo iVHMQsiYXLI9n7A/5Am9NwgrMwxLn0IpkTw1sPrqp1J1TznhyRCOGMKxSlhU4ZU6hzSBxI7u9kFOTB0h 5cQ/eD6N+G+fSo40nmnT CLO3ddmNRR2BKdwylf81i+0jJVHG4GyRRU5WsZyKe7gkQEwjWZDzyMTXBIh2JMtNfuXHPslbgl44c9s7 aVRXNynv19+AzL4T509G +vJY6wj0GxjaUww14n9w5IYrwO36ifkfWSk9/W5scm7XJfR3OFPlxZ6PpaPIFQWjiTiNlj2NHSNcBvzk ewLXpvxOmLEiBHKZ/Yesenia 76lQrmc15+KDk7sEd7W2880bvDNVVRVZ41ULi8Kd6MWOmbGWUHxRe8pS520mcRjGPKcJr1dx+uAVYivf GlrckPAkrp9xtuR48UeR NNWbn2f4AMCtiZH07qxrSlNj2qp96x8z+FtyMKYWG5nKsl/W5JOrI3XfhNPG4DQZ1o2m9jSMb/YW1D5g dobFj76hiyQdYkFaZv3v HQOIP7oIUHEEmMsczREmStz+/ON1VvLTOBWanEwt7CMfrPwWuNDShfMhkl7677bySiM3hg9x6s VOVL8w8bL094Zwuv7+z+ 5xRDnddKuBVFrxOIKEnLVNKIfwNrigF3AOUKyjixuS3xD2FWyFNvCLJ/nbf4wrENd7nZtrI1BCW9K0FO FpUyme+TY469AVCRLC8Q IOKXd6Ql8p71tyeTl7zGxC6ujVrcCrocauKNr03L6aDxo9VseYDpthEpVISuAzzSbn/Tc0PtwkMBYlX0 GD7TfT9cg8davFApz3VT 1S+bAetv0JD2+bNSWjbKkTStNdbYHJt/T1Cu1U+50MbPv297UETaIrQOltZjqBezaqh0uAS9lROVIN4G DDHBLWX3dDj2SG04yQYa tIKt7mZpXhDmgOevnPRZ4/CAmNPQ3rgdxZMfSpaLenOQTjgeM14D4+2kMAo8jQmZlmqzbePHUarvALa2 YXDhw/LtQI4iRGgaP4ON PMTnBcnEGNMkIkYFgQfL0tjZMcd7XqgYy8d8nl1m81uB8NLWmb7gCcEWI5M8l4s6cvDmqduMZBvEA7it C379+2Vjkp4qpANfjrtT InKskZ0gau3GgMSou2fjWWC+heCxt3Uyc5oYNHf5rG28cekozQhGSSZsRZ71hnzfO7Yx1fianPaJ36ff TDp7jP9g6KTml/kmQDBi xEZuLG9nweHkTGDdq5aXywkxZfhR4921wgXZRAT+fV2DTmDyhoGXRY58BW5xMqhE7hcxc6VIG6zEcpKY EESQwrZ5dTKxIIhPjucH GQon+bgM8cS48rz4wRRoByMvXfDwTzmMJrx6mYyebh71V9nU/uCfrMHghcZ5z4uI356j/Y7Z2oIuMCLY c2+J0tKefa9XcQf3VHV8 tWjzuu2MbxvCTeKDi8IfAc6tO5G4Nm8nfb1cZd76s6wDVm7TbtPxwuKQJYEfwGTTi+9lKogtGCJ6HbE6 P8O8OaWq1pY4l5j5MD75 yisbL2rrjGRgTguGwGTYQLyYu6oYC05eWZBmbSByUBVdcwf+MEAesiCmCW9uVtXBzD6QiynedcmpH5tN QHBfHoEW3KbmNNDkT0Iw Mr04KEhohjqyiNN2y2ku1m+Jy3lSE4505jo+zeqOegnWLGAlU1D5ANTZUPZQ6ezbQTQsBGklzYbDRBGk vvvk9LlgXx/jTPtBasva OfAoj675gwUY9mz6F0r60rkRyknwYzB1kiorn4EqTpAWWGORuDodVvdxNR3YEhvf/wMtCWtIUEqf/jhh 9IPctOyQTeRrqjRrQXJD 0nvW0UneKWgrnEOf6KMstEvWWw+u2QCwDDDBXMC6f6QmfXrVEG/nxSokWF7bzeOSSwYtSvaiEoZwr3o5 7XlNfYNJuvAqbflCddpb LvtWyKKL9EJRTq4eIe8qxWD1Ge0wg9hkxyLkLN1736jzm2WGmu/o0Ff/zYUWjAqaGaZATKAYtsA7HHZm Co1LiKDia4OAOcuRB4UA 4454WKrDRDwfw1aM1wX9eOcxLkDAeWfCdAzkQT0sT98/NTenPwTZrwwaXWG/FND8EtDkkZuIBf2Jd8aA Z9j65BjWvfnuuPUXpYKX s3ZhB7STyPh2tiDHgwASuf0nZ4TY9Ixuo69tlfe8nooEZIckHjwOgXhvnw9IkUueXhdBZIi0afxp5pCA pyL7BeOR1qptBN0WcDCJ fAJEYyzkn9CosXgajLBZPdMLUhLZVrIsI0Dw03iHSdqugd7zVkAiLBBrzm9HrNCgV6a83LyMZ3OkcqGz 0W4QNZmo/YxiayZtN1Nk A77WBWY+txmX8eILSimt6b1Nk809ED2SjIp3PtSxOMNGuOJI8Vv3vJVLWXpznyDsGNv7WueWbxq+ySwz GFrsRjbcUvXbRaxh49EZ FeF71Z7KuTXh2fs9iqzgXMTAv3xgdfxmrTwNA3MvIMqLjQhrEvk3ueQdEG+amQKSyuh29gAFmFdo5HhW 40TG7HIq7Qn19BSedJ9f /322+XW09+YgPsifEwKXv9K9iq/2QeJmssvDcOF3N6ghIHWu9/ZYzXT9/VfHpka7f9Huv4hSuci0Jwww DiiyeX9F1/We+DJ/Uevi ASgy9u63XuZ3nytrzvTj++3528dcp69KgH9Nq6YUaZimIlP6tug2xwsd/uSlCl27SLWPD3Ns5K60oCPk NINfA8QAuN9QXvsW5eSi EKHRsmIhmgHCUMID3UHxvVg+QmX8ubmAvelR8PdkxJtsyrWWMTsk4KHUTfuT1iTdpJxaKqPhma6O2Ipr ApGz6GPAk35NHaN85hSN beInij6peltDB07rDIgZ1CO9ycfxb1XuFvbNFss6QqnmUnKTfPSaLoHrdmm59nfAcjHs4/o63NzgRqnQ c4i3i5odyekMYXoRcLMN mn01CIAufciRBUw6uJi7AX2qQ9669pc7DNqrNKL70n92RmU2pQe414vLIFJFLYMMx8YrbE2TgZMzCzsL wzodcFckdcaiNcCRC+ei JeYvhI8XjgXV1GDL5oCFw3QY+/1sa+54ewAwO9HcFMdG2X+YM2GxAAzH8LgwIfasmHmemFP3ShV8pXOJ KTdWxZFeL5I+gGY8605W vw+zK0q9lCRkVV7u3nxBNHl3FLd4sC4ZKgH09el2+7OeKqgIL6oYYvsycKYDMx6iui0ilPnnWyC3+KqU KGCV/tPh9sgrir4hVqYR MpWSzhX9zUpsZebRVatISazW2vQ2atWnCNiKA9xdNyk7f0bNwotIM8NbzhoPpYvSwYeS7u3chx0I26q1 wHtaR3iAHzCBZ3qCsSkA EYYD8B+wUD0+3VR6UblLzeH8rqGtYZRGOjTn/Ja89IO/a/t8mFxgbO8koDp5u+DS0eskS0GZUeua1fZ2 P5OSHxMw0s8TpJP4B5JS +W2v490oVONuDCXuqTxQ9g///6olaWE4GMTQ+D3L5dwVpChr/huWBwEOosAhnyMyZp2j5YSHgnphhKrT b8aoYZUdQV23gt+4j7qF 4HhbUTzmvPLbu4Xi4xcNVUoJwui4DCeNfVMKY9ApXozvOisVSl4Q0pf0mjZExbGaTCI6D4bDY9nwLYf3 Nf7PvMkooIMyw164JLeE 9lqLL535xXPKyHwH70sqtMkLIyJ2GmVC3tl9rckLpKe9P+zrQaJIpDviIP6d3X5tckTNct60GR+gxVr3 BcLCn3m60XmK36WN2CA0 Ri3BHQTgaJZib2FvhMRnu1J9cM6HCwyzuprpzBuCQ+T0y7b2Trj9UQMJUNmZLiKiHY9pAuFZeQpSXGn6 8ayp5Yim1fIqiUgOafg4 kPYVQGIH7DTJShLXkTWrFFXHc+LaukKPCNWklMYQqBKvi3o8HkGYAQeyXwNLTZxXPhti2PMuLEYQ9C7I Th3rBSBoTKBerISAjpAO AsOUV72IZzgTQIeQSIpEb7RCqmrbFklkeXANDM0rLTrTSOSxpcle0ryNreyI+yJL8r2UE0y8J+Ia0D/M Lsz4DtO37pRq6R6Xl6qX NFQd8IuqW/wyusHltGaI0J93VylmfbX9ypgXEuoL+4f+qxFK05+ICpj7pfuJNIbAi3tDztyvAIiB+sbx OB6tNIl0JvRAibm9gcOU igkEcq41lxd3wSdVed3l9MMr2SIHSl/xy3Fj6E+DK15lLgPL8OruOq0d+XKOCkgxT0HbRTLSw19+xpMn XTHnVFNNjqBuBgFz790g iFgGRmEwSbb0wEuup2qRCqEQCQxQ4aAnc/KeC4dHrlFdfB+xOzzu9bWtvPil3tzjNQXnup8//770hQYH 2IB82CBvugFQNIqJaN/G r0p1fQ7h9xQ3WJxqPKpbWY81/eyxROO17SqcFxx76o3ytV9yDBFbTvIgeIx03VlpF43yAcuAf+X7YGJN bujINUwfqvwg7LsXXz9Z cncKqUphvODwOoO0gT+6oKnaVzrt5/bAebpBtKhECKhEOWkFPx5NXZ+H9LpmMwKyjG1CbfZvzQPChJiB BCGYRjm+oEFCMMwDOMTL XRGscQPx5CApyZFj/sNOmVXHVzHK1oMBOaEBL0EXtDoTBxxQQRjXCKacS+vICDFjxV7ztQXhpXM3dTkR BiGYRifYAHCMAzD+AQLE CCcWBQsVMVeAOHyUaGByCVFlgGSQsANdfZQS6IFRNbYQVnRUTjJYWpvJgnXIILtIO7pNyIhNCU5FOjUh zYXept2WzFqqSVR+fn5k b+/n8bsU2IYNumKdvoizSZApSZYhvMIzllCu2gXIdyZ2v7cpnHydip9sdtd7nNQG1uxY6bjp15ohb2F3 9xzD/Kr8xIlGajeKMtjQ ZYvlsm28MX+/LaoK6osLrmVerEdbQel0Tu3UTbVKXX7RnfAmp4fCr76YPCrp0imvEr72sKM+bdq1Yp+/ yyzrifb20+cg8uyg636A b6328317whfNs2k509/OwvYut7cPK9e5egfub2eLEpR0ho8S5qGxElcG7xI6dY1rGrUVf8B6+7I4fz/N TOO7QCPzMdGOhEBDqEvM YpQoUKFqG/bzvh6H9tI2tnBp0JobKCw55IJmn+iqfmnvWGaJSsIZUYStrUh26SHR7up2Xmha3tNqiaez KIEUHwJhjorVf4RUn7MY KgDZE3kpGGOYeS9Lv9TR8jxY1dWZQzlxrdCNPzLVr+mW2+4GZcKahNh5pJEO3Qzo/rvyt7znUqBC+kTM 4mBEFU8+/btjX79+hm9e nArqD46jOIZ9NUHwi8LxdXrOFG60+ap0L+BeEn8wc0n8t5278PksxT8OyfIFBJYhFwz104/l8HPWR6mF DDQEIJYOoRPnjypUuSkc EUFtl4cCH6tG91JrcXcCCpkdgZoZMiKDb33KEk9D4+VX3/1HaYbLne6woAD5LtQUplenueC1lzf1rvX0 Tb9i5LUpOLdzSz6BsE8y fvs7+u760jtCpyMc1/9McEYGZwSwpdeB7yQJLkqaVIvnoNAwjq697bNzauRKB2rmawYRflxXvzp8rNuU RzUcsYvBuSkVteMHm8eE ze9Cioh5hqX52IdD0MowmZHXJT0kv4pkXbGeHOmC6nN/Si/2ytiPRKdP2/WnKz0lS0EWbjoS6j/T58+K bU6pTiNv5fGb8WXxBCa5 aoy/C861WEE7PO1OvGGETfsKE++QZ4YYkLJCZIt0XV5G+OL98qhEx9i+LHHHlMpcvLXX3/NngbL2uK50 Pdvm4tIqlxxkoyiggEzt l/Kzu4VhNpADYqUeo52mTH/4sJIImHIQ4Ldwe/1k08+UTEmlSpVuurhIPzLL7+ijDEFqTNkfe1DSJ+PK 12MA134K3dh01UJRosqV PlVwQ0aTE6PO4V01Lo5dRswMPDFrx5oXU1//VBfj0g5QlMUCsiDnzfVFqLeF9+bGiMXNfWI9qc24KGKY iCfQjubQkmRuIo9FOG8f adRV458R7LHxMnvJbjNCiBS1wQCh7F16BMlHMkxKK11gsKnPc4EJQvdx4sPGcKSRuSwtX+r5cYsf0e4A ebu3ictA2USWG2Ztqhqh HX+piAnyBBedNy7zxpEwgNOq6W8p0911i3oUn10k2P22Rn7WCRkNZtzM5d9B//8c+XXjZDHz684FGyr2 2+/CLbsypn2wzbB92mgU yjbJtgZ3CXDLdK5jDxog//6zlknc6GPAhwl5zHrBizfZAJmbBWnkKvvgudMyeIU9IxFitcwvgSkuNRjD ZtDphDpGvXlkBwxJrQ33 TCd8II5fRkpzN/XfFJq2Qe512wM8I+++vqe6weLlD1oxANxrcseqsNmIsfqtwAiHaFvTQuehUReqhFs5 vKN4NHpYYmCs37WdMMiE QeNBc/A3zQJftZTuZEojvCY/O9//5Ok4MYmZrk6/R6ZYU6aU3WhAz/QxNsaOPlmzPHy3Ilp28PLRBnIJ iEG8yNvt5zkmb8++KGxd FhW5VfAMiBp8axglXfm19uBp7Ntj47wT7aFmuoPOHoSQ0HrMOzuaGq4uvTgcBvyoAo0IczDmXDbtz46S tDHR3VQLF+BD1WzB1uLP qVG6ogTxaB8pRDFygtM6WPLu4C3u6QwUKEiZ+7/+oqtEUl5kD/75koInOWHFqM5//22IlGK5w7kqnxrM gJHdjKhSQA4JITymQgFS Lr325JzRa0uKUHeWW5/AYIF0wiCiZAUd2mkAmbc8gtKo0OSQGDEbgaw4SHesLAe6g081lCRcnPIZ42+z zLzPDKHZxKw15gBp784k 9vkTb107qnu3MLYjeFAiPQCchIfyJvVq/Sb0qTPNXRElaLPlx87OGs7ujwkMo+7DrFxWG7B4PYmrbgss 12e9/7777ftx/OK86zJP OJkfeuEGkcl7BFMgyVswberxWBSWmnImEZDU2rDWHHWk8ozTQs6+kbkGja98oCDvl5BZe9viKSjKtNDV oxvNbZ5cLE/x5zT5TOtb peJe2xee5693gXAFb7DpUBQrz0dGxSV79sriBem1M56lWCcdqdDLFsaEjx6zYgZq+mSrCHL97ckyPIc/ fp1Y8PvNHewBBEyiXI77 jsTIKhHsP+WE35AGrBictZESODZPzp6LcRXJpSA7mVbcg//tXqUU02PiSBeOzub6g883yD+U+jiOG/wL qOODPGcbUVi0opeib1jO GIG584ytrXcmKoVzj4snXUUO+0p47PM7a1ODw72AKq8cvJA//zzzzKsQaWP+LwA+ps8lbATfDvj/LTDS 6fGKXJ8Ez6N/eWTdQn5e 5wxefJkl/d5IZM2Bsi+/Gh4hrHPqrp5xt9dYDhi1n236TknfFKJI2mpUPs8s55lLXWllah++ecdXou+R jhUltYGgwaCyNGxAJVm5 96lJex0rqAD6r1tQLE9L9wQuUrAAkQ5QqRbSBOSgFRnpg8AqlUdyW/+3t6ACtELJ8Mb582GSPiS30pat 9xaXf/+/VUqE+u+smXL2 vzQkJzhSoAAHA+h0JrYn2/GiGwpxlATbcOfnoNGzF8JbPrUT62GSG5ZiW0vzpqh06OuRGg9CZS+QaN3h U8I87Gbt/CXY2hvQMAcE pd1hzMWRw7dsEGDBNOtmQdyxBatvHsxrPIVmTQenwELn7mdeaucWJiUFcILyEBZGLaddJASvTWBN5FTy r3ozRLPT98BD1JtnH4// NG5Hq1EO6/F8wUdZxrbFE32ir4Kdb+DhqkkAU29cUjgZz2lIfcd4lUKkLLWKES//HPVcSiGjWxoMc4a3 iIX0zcGZkyInphjfFCYZ 44pTweR3mw4yI036zhEx3GoRcgDtoUXS/TLL7+XfZ9nOA9t9pMBbABXUtYqAWua2iu1a0R3LBXI19TLj sHV/zkMSNzH0WeeFVfT4 noxhiWoeTtmO0mvc2yOlw+xQsBws5d86r077xQZ1KcAQ28BQbaeBBLv0KDHFkcEWgp2VifJsrE5sNBA+ 1LOHrsTMCFS4C71EGlqr 2iMemXFZM+5znbWkqK3O9EXg5+rL4KntTMCNgqmg6Eg4rH++sEupcy9InkSgXZ6jGqzdJUojoFtRImHf mu4WoAKWFxOhZesSa3PH YXYK2ZJcZtfXkOQQvNy3oZ14Xu0Fj7l3kUwSfRuXSzw0eiPLrYkdndSgH+Pe1Vjus6++knmc/ToURVjg gyYb3WZer2cn+6KcQYsu In9CP75UGDkUfplY1Vy7viZZ/beZ43qgKgrWfLgcNHziPNCxuEgRGP64wGuvXOpQmM6NOm45fZmupJF3 SutF3t562UmMaOF4Y/v7 TowKDt1mxNm9LTOYYFimOcPfoRNQyujZH22CZYlHC/W4fdSdjSBew+LGhR8uWnkoLhimvAVOOPxuJGxd nJyeGRaWer14NqAaYh22 1jdIVi2Rx8IvXjgYkvrAVbAiZcfFc5aafwwFrpuJcPfaxLalxUb5QxrmFyph4Znb2ZZIjoTCniRF98Km XuV8wGdHoLGnn5ShGjoB 9Ei5yri6wCdVLi7vtIqpodXHO3MN6+yH/gFeDvSaOqds1G6DUsukig0992AP6bMLpSThiy+lM5RY5y7H z90eVyp2bw9GqBChKwHh Atkinson/J2C+AqSHSIj5lMgmDqp0no2bY4e0hirJtTARbexn5rNj3FWRQRfpxHQ8WOVBaEV3XATp4T2PJiMWK QlZS18oHAQHYTNiTFzFS omzqlFopXihNhPFkoXN4mRx8JtmcEcXptm7F1DMARRQ2ywe+G3xdRvhwwqDK6B1VSWfIVS7X5ATggFIN KNxobeGu6vP0xWBtqLep QcOobmXCcraQjZnaijuIKJsKosgjsGstsGXiPgJUIqN0aGd/Z8QZPsAAbbdoQXPhjt5Sqd48g9vl0sZE 1Nu7X+/rK7Gcx4eFNtfd OKWB9uxMLYQYDFu8d41q+7W9bNeMCyV9ZjnXAwQK9GnQYuDVVlZK1Pl1CXcUVft2vQArrBqwd4PXg3Af GlQcaExgXtRpUoVWSmhG h7LwHqzO7/leJsiEDQ9ymNCgGCLhNm3ZlGWaGCjF4dp6e4O7jqXoJhZ4ReiUhmIA/CBEBYalaygMJESz 7Dy2onn5YpR4QaJcDIUA jQCp1762WkudhDOGBDBSbMdlOOtDLNfQWD1AfamqCkwdoLfnpaSPEvVEFARuGE7Gz3+iyp7nOa4B7q8f ea43kx4kwOO9YwqgMOEB ++zroSIYZB69sTjIJg2xQncf1LAVwr61b/Hpccbv80HisS90IeZ96UhDdxJ9S8qr1GTL9PRdtDOvicF5 PW8cZS79IOVQuxWcttHE 7lUNGxRpdeD76bgxczeO/uuMJjOId5+4tXyd7W8f5Mb+dVuNphcyEAiXwnfITNgpkfrMD482msDZDCcK A2bjGwB8+tV8Niy0uqCV 8Q7G/w20vEsHnbm6hZ1yBan1NqEKSO2OCUSvV5o2CF6OooT27Q/2U1b0+J9xmINmkwMtDJWhoay3ZV3/ 6phsZtt2GgCb6Z9kjAoN eZAq9oCQZd7UsMyIUtAh5QA1jaHOzl0CWiIrnrxeSk4OoM5tU41HpH4RjR6ZWvN54zBZ3ebYIMqb4O8w nRheZfagp4/4KvUdf2SK 7QqJCwbA2nHIEyXKUdP5qiEvNMq1Ek6NMI/0PqzzwnFwwUNVQeZp98+pl65vsm73v5cNHgr7oDArpUoq loDidafSpFducHBlhtCE J46nR8AMA7YESUFFF8XgNPZ9LXiZtIlDT/M+0QnQLMmU1v9mLmCXa0RaDgOuhjhpA/e1lHxeyWNlxxAP A1qQC5yDVyYoRMaVJ0Bs huutQDR1+qNWWJrPawvnHtNKR3SCtbqE8vNOt6TQ3RTFHjwuVqmInxtaxll9c/YfrDwCEggu7783kgZO xNq7wsFdHYTD9VNtg/+K I/3Fk/mQmC/u5cm8nzsykJNI2JDLi96S7pXU7U/blycvwbCq9jru9FfgNEKbakR59COL6WZuBJd9tjGm RrZ6zcBojFojjhc2nhEL UzHRglbfGfhXlVW1g+jm8S+pvO3gv79m75p0UTkBhujW8Rkg4xgVsGDuyB7InT2uXAhB2CTTMDqS4wHv UMHp/4eabP1nD6a+1t4+ +23U/ts0uJ7U/ZEOlh9bzitOMjMqUY62hOEBNwW4o3c73HnPnnXMDFFVyUeF1gSme3BagzC4uDxAEtJa xIy9WDWKHZUttkTgbUul n79+ncHXTxNwx2ZZPmRCj3KW93V8484o2bbHQxDqPafu/sTHGEs2X68U0Ymglmn1ftrx5gHWH5qOFwKM WHBpPQ88rftl1BG8clsK AWYj2UwZ5qejDyN6vvLl0W1iqRqhDXAcPkjCmPzPQa6nzRXmAnEOnbrbLw6onR82NlNjqVjdwR70oRlj O4c3R/uUANOrWwuluy43 3swNE391ptW404ynP9ZyTDEfJJS8KWG13T6ccvJs9WDpQCj+mj6bzONQ/gtT0pK7sE1vj2c6VXbgHiVf YRngN/iCoz/3G5G8AU/O 9RqXz5j4P6qusteIUsFcplhFlRMhohcTfCre/cB9Q+6LZEG6/VqDhaP7EzsW25eNBKt8aHCLCAuzCLFQ EIJi7/5t3seroigneArD cw/W6Z5OnO3ZMg8laymkCvG5KwhCW9PfUbjEtAhU9Z1sK61t9DbrM50LbQqAOerwDT/FND8+/pyh431A 0/JPMAMh4Xmfn3tNBPDq JqMLiBM+vkngIUHWn+wsGL+XdC4Dqh0DOlmdrZOLTUETuf5aUojPepYWed1rhVEc+RfbEuCEi3n51iLz yuqXWwRJFiz2JWSppRAc idYgDAMwzA+zFAAHPxK9KxZNKxWAFwDdRJhHFPiaQCe/7Ql3DJVN251DCIQAXiJRlLjYbGW></span> </div><div>
</div><div style=text-align:center>
< /div><div><strong>Patient Name</strong>: <span class=clinicalNoteMacroWysiwyg id=[id number] macroname=PatientName spantype="macro title=#PatientName>ALYSSA PULIDO</span>
<strong>Date of :</strong> <span class=clinicalNoteMacroWysiwyg id=[id number] macroname=PatientDateOfBirth spantype=macro title=#Pa tientDateOfBirth>1950</span>
<strong>MRN:</strong> <span class=clinicalNoteMacroWysiwyg id=[id number] macroname=P atientMRN spantype=macro title=#PatientMRN>[id number]</span>< br><strong>Attending Physician:</strong> <span class=clinicalNoteMacroWysiwyg id=[id number] macroname=AttendingPhysician spantype="macro title=#AttendingPhysician>Sarah Coto (Gynecological/Onco logy)</span>
<strong>Date of Service:</strong> <span class=clini [facility]Not[facility] id=[id number] macroname=EffectiveDate spantype=macro title=#EffectiveDate>05/10/2025</span>
<strong>Referred by:</strong> Dr. Coto

<div style="text- align:center><strong>PALLIATIVE CARE INITIAL VISIT</strong><b r>

</div><span class=clinicalNoteSectionVisible id= [id number] internalbreaksection=false originalname=Chief Comp laint recognizeconcepts=true spantype=section suppressempty=false>Chief Complaint (Palliative Care)</span>
Establish Care

<span class=clinicalNoteSectionVisible id=[id number] internet researcher albreaksection=false originalname=Oncology Diagnosis recognizeconcepts=&quot ;true spantype=section suppressempty=false>Oncology Diagnosis</s nava>
Stage IV SCC of the cervix

<span class=clinicalNoteSect ionVisible id=[id number] internalbreaksection=false orig inalname=HPI recognizeconcepts=true spantype=section suppressemp ty=false>History of Present Illness (Palliative Care)</span>
This visit was provided via telemedicine with the use of real-time audio and video via [employer]. Alyssa has provided written consent to conduct this visit via telemedicine. The patient participated in this visit, noted that her home health RN was in the room however he/she did not participate in the visit. The patient is located in their home and I, Dr. Carol Branham am locat ed in [facility].

<span style=font-size:11.0pt><span style=line-height:107%><span style=font-family:Calibri",sans- serif><span style=color:black>History today was provided by chart review and patient report. Cancer diagnosis began with development of acute renal failure. Admitted to [place] with this December 2024. Found to have cervical mass and bilateral hydronephrosis. Biopsy confirmed SCC, PET showed disease extension into uterus, bladder wall. Completed concurrent chemoradiation with immunotherapy, followed by brachytherapy. Admitted with complicated UTI earlier this month. Treatments have been through her local Oncology team and [place]. Anticipates a follow up PET in June. [...] originalna me=Allergies recognizeconcepts=true spantype=section suppressemp ty=false>Allergies</span>
<span [facility] id=[id number] macroname=Allergies parameters=ValueIfNull:NKA spantype=macro title=#Allergies(ValueIfNull:NKA)>Cipro&l t;/span>

<span class=clinicalNoteSectionVisible id=sectio [id number] internalbreaksection=false originalname=Review of Syste ms recognizeconcepts=true spantype=section suppressempty=false&q uot;>Review of Systems (Palliative Care)</span>
<span class=clinicalNoteS ectionVisible id=[id number] internalbreaksection=false or iginalname=Palliative Care - Pain recognizeconcepts=true spantype=section suppressempty=false>Pain</span>
<span class=[facility] id=[id number] macroname=PatientPainScale" parameters=LookBackDays:All spantype=macro title=#PatientPainScale(L ookBackDays:All)>3</span>
<span style=font-size:11.0pt><span style=font-family:Calibri,sans-serif>The only pain she currently gets is at her nephrostomy tubes. She will take Tylenol at times for this, 6y200po or 4b844xj. Feels that currently it is not severe [...] recognizeconcepts=true spantype=section suppressempty=false>Bowels</span>
<span style=font-family:fidel Peck serif><span style=font-size:14.5918px>Has been constipated, more loose stools now with the antibiotics. </span></span>
<span clas s=clinicalNoteSectionVisible id=[id number] internalbreaksectio n=false originalname=Dyspnea recognizeconcepts=true spantype=&qu ot;section suppressempty=false>Dyspnea</span>
<span class=&qu ot;clinicalNoteSectionVisible id=[id number] internalbreaksection="false originalname=Coping/Mood recognizeconcepts=true spantype="section suppressempty=false>Mood</span>

<span cl ass=clinicalNoteSectionVisible id=[id number] internalbreaksect ion=false originalname=Physical Exam recognizeconcepts=true span type=section suppressempty=false>Physical Exam (Palliative Care)</span >
<div style=cuhg-jqfea-ezua:none>General Appearance: Patient is awake, alert and oriented, in no acute distress. Patient is dressed and well-groomed,well-nourished with no evidence of self-neglect.
HEENT: Sclerae anicteric.
Respiratory: Normal work of breathing with conversational speech.
Neuro: Alert and oriented, no facial asymmetry.
Psych: The patient is alert, attentive, and oriented. Speech is clear and fluent with good comprehension. Insight and judgment appropriate to situation.
</div><div style=apks-qvtag-vgfv:none><span style=font-size:11pt><span style=font-family:fely Pecks-serif&qu ot;>
Comments on Pertinent [...] the guidance of her local Oncologist and [place]. Please see below.

<span class=clinicalNoteSectionVisible" id=[id number] internalbreaksection=false [...] spantype=macro title="#MyRole>Physician</span>
<span class=clinicalNoteMacroWysiwyg" id=[id number] macroname=LocationPhoneNumber spantype=macro title=#LocationPhoneNumber>[phone]</span>
<span cl ass=clinicalNoteMacroWysiw id=[id number] macroname=Locat ionFaxNumber spantype=macro title=#LocationFaxNumber>[phone]&l t;/span>

cc:<span class=clinicalNoteMacroWysiwyg id=macro _[id number] macroname=NoteRecipients spantype=macro title= #NoteRecipients>Axel Palomo MD</span>

</div>

<div><span class=eSignSignature>Electronically signed by Carol Branham MD 05/14/2025 09:56 CDT</span></div></body></html> * MANAGER INTEGRATION Onc Consult Note <html><head></head><body><div style=text-align:center><span class=clinicalNoteMacroHighlighted id=[id number] macroname= PracticeLetterhead spantype=macro title=#PracticeLetterhead><img src=data:image/png;base64,sUHEOy3KWqpGHUHCPZwHHeBAICVKYNCiLGRUYJY6Kl+UAAAACXBIW THAGX9HU MPLfBODYc4wNHEXmlhECLRFHCp2B49kVeYxh8IaInjuuGOYNZURAS24zLZsu6A8QKQkM2qfWQAwd93cJ AvmQDZWUU7dYUIUJBskO SnfQCS1VmUxwmnjDLItZh2lWMn4hA8ngDT2EKL9kUigibl2CPIgGE4qJFbttrfdPGPuSkTeuDg1yKF6b r4uQONtEgPdRJ3XEQHds oArOn2tHJMuLZPlZsjbVGP5WLN0ITB3SUQoQOYoLyC4OyUtWASoMjSuJfHvKWQnVGTtYMJbKiF8myDuF gKPWwY4zTotjbhdOQW4F et7zLR8Qn60j7tqsuMzu7UkRvP6SUfsGOSvDgHrzsQgFFI9mbDzlL8lawCmFeZ9emRtFmLhz6IksQZ5g L1aLETiNgkgYk31dX8zH lY2tWuxjkb1iEZ6Uni7xMK8Ww7xuj0aDL3bNX4xq27qeYJcDfZyLC7yLLcnpA3oYcWjERJshKEyCo3jj JGtkE8bhvxkPNKaGPapt ZOriFDpIQ5jMgXmeS4yjcI9dDdicX5obD8lHVRyeUFnSn0ocnXuHMIhLqUzW23aS7Uoa8Cwf0ngsU3dE bAmLlO0oEepflk5uRZDR P0gjUT6fGouA64sOeBdw3HwVcLjmQ71MJDpQX4wW81tXcAxoI6hxtV6c6YHatY6Dnv2nLM4To2hfa8kB M1lPA1li79wfLIuXmHhJ O5lIGfyPM1SXLVheHHpPXV1WN31HaYmaC7qCjRqTOT2l3VCi73zWQCQZC1vVKCWtX03c0Mlq2UgPwKbB IOyOKRhyJ36y6PuBEAik C5fBwFxGEI2UHTcsKI8PvYvFkEyZADnCrgNCYO7Fxs4PtFwDVD9HHQgBWymsFbDj4LgZrfCNGOmGHQaQ DOdUUKzDNE1ODHtRqChZ NZ1HiMkFoF7bYL2PJM9VRMerTYJPJTbMDJzFWIgJFRlEGS6MPVjZyLcJNJ3MeEmPkPfSrozd5RpAHT1E qokQCgbH2HuNfIiiCvrm P5qxA6tZjZsvQ8fPA4xIE0cSgChfH6lGB82JV2xaWEfH5HQWV9enA0zNjeuVCv7NHPcScOwOI0aCWUfP AI3MeihGIw1HW36KvT4F VBgFdVcFAPzEDubwX1ZYfCiI9IoCB83DSB2VyyhpG4aoDP5HHGqRiPcNPNdZugmVg11SUC5GKv3EoxoZ LZkMgEkE9S0NLZgDnP7j FLTZWkGkoommH0wrPHbH4JmZP73QPZ4PbgwrT9kzCP8ENOoNlHcKWGtCoglId19ZNC9NVo1XcocXRZqW uKdX8A0FTZjKd9fVLUcx 9Ktd0qorMlNb3B5qITxlCNmR3GzeL0mru8lCKMrNiaVNHn+OUmsTFN7wSo+rJ0qYmZmNZm8WeK2P4K2R XYcCYFvDAU6ABRnCkuZS XO1AfCLKbTsYNgyzjBpXuecCfV3O7YnOxhVKGr+XTjltYuchV9gkX9qPtKaZ4QhVP68NE0yEFW7d1ApT yZ7oW7rIP03PDfybI8dd Q9mFXPkXkzDCQW+OGzoSMS3lOcog8LQigX5AHW0hR2jKSLsndTaoECgMtHycCU1tEzamyJ2YZ5yIKcME PW5qRHjgSbbMqxnRbKhF VN6PIT5RXTsHJQtQF83CUn5WYBqZYtiRSHkPRN0YxHzb0MGzbT3z7mlil5eJfFbCo0cFG8kY9VwSLguM NscGI8cWpjqCRXug7YIe sG3y13ajBsxixQBU2XbsN4nDOPpNmZuVOoziJ0grP7dTMJbMnJvLN5xW0hufU7xpIsdFj8cHQ7eIDS7Z 6DmIuB9V5hqqL0AQclis 3Rvcnk+UTluqjKvXfUvg8VpeOE5aZ4pSkA2Y1AmQylGOSD+YJitsDl4rQSrBTVrSeX8O2rzZKSyPOWpX F2gDTOqHo5+whD9KITWU yBJREFUeJztnXVgFEcXwN/K+cP9tOF2GXMzytSSLb/rQVAbsCbpDVXdNnmpbj9RGRtfXASoBOmwY3pc/ DH8lv5JbdrmGhKQkjP/u r80u71Fym2+nXubZbPsWCOlBAppYZAfeFj9SXsICqXroIGaFIlSwYOZqYOfNRsaQQxdMQQWilPRS7GCb BqwwsJgMKUGrLAwGEypg S7pAmD+C1IIjPq/qmmIiAyJ1xJZftWZx3lBGD0bxe90OWiymVFYm/lsgL3lHA6FMyRz9btYEc1m9kj2H MNwLIMQAiBIiqJomiTJx k0a/kIhHyOcSBvZTRE7jEhA97u5s+pnlPdNU7I3BGy0FoAR4xPJeu0JNXHrJJGEpOrMiPlJ0daNMznxO ud3nIKJJndy5hMKCZgrD j6Z94AQJq83U3BYefkNnh3e52jmRcUzopCM2kRGHJIPZx7VVcAkAPjXgBNOc+LEEumob7+Z+zZOAW1aF YnRQthDj5Nh+cTcB5Ntk 9KIq8wz+8ef/TnR1LhDfBHruaXJOQHySQPVRVQrqom23/oLf/5BkMSEiRPH//VFaHYvX0xYOleprzc+9 bpXj+9fjPilNa1z08H6X lJL69TFVGOWvMpcLSt3nTuUBQw5ugT0qG37kk6DirN9L8NWT/MmoRti07//J08iRCrDkJ8L5pkZfjYwb pwDFESwa5wumw59okpVV j926qS/v/6iWCllpgFQASrhREQcPO7Adv2gSRu1cdYdkEadoa9haxDblD+/v7//vGOitc4qAJ+48+jFq 1qrl3MOvag4uRerG+zet nvJnEaNm/bnpRkhSsERadylAaqVEZDsf6bQaB3GGyP7/ORKDk5K+g5Z35FVLwCzGprWs2EHs9aqmoM4Q rZCYTAYDAYDQRAkSRIAH IpmQOx4ZVdICltYHu0ZI8zNV44aLLKv8uORb/pegZShFgtsyS0JCyx3gRUupvr+xfjD6RsSWNvBYEPmA DnrXF6GYgRPQhOUQfwfV 6KWjRq4h+3EMf9+iPzB0rbny56xxRRron8Aq4Fh7CyEejmJv3Lh05X/kgAtYl5uJFwsYOpymSy9/5men u2QiIec8xTl+1WrtvWCO 5erXpOkKYNWm/+QBtsLWQ5bwk85/+Q2E2bLsf2XKEH0GIxmBfZlc49Qn0D2pdQBYeYXczx4+WkEFq29e ismZkkvLbBCYGDnEhm0X pt4vtjDSMIt/m7lvIV3M4imn8048lWZMgcTPBoEQy7mzjy5dr96fjUNnPfmDHRhYZAZW8ZbN9hK2Itaq WdOnXocEUGLxEHNWrTuO 3gmc5RQoUyx6sL8sEOgJfp7ugBh7YY4k883qhWC7NtkaIj5lIi32NW7rc16h+Sp2DSue/9+YuJ73xi78 d177p8Ke0ZapZDpb3/ft h1/nMd0tP24jGmcERaKVeirHGaN+/k4bTk4svbqs8pGgmGFJgygpzlZmVnJ7bwgjsV0YJbmvDUIBFr2n OStOnRZcejshRTNpXTd5 QzDH+GP+o4e6+xy5tNLHtylpRtBpuR3rH0tUh9Kwse83ibTfwdVq4aX1Oc1bnMn5Q9kJe8sdMgNnwGx3 X27zjiKG7RKSWPUzsbeY APy3OdKyUVzD+7SxYsFicXHx/m4lOdz7KcjBQyzMp9qFOo40duH9faXzmlIBkxPMxaj84NqdflbDWNzF fulVU2NbLRyPJf219GSB Zdgf89X6WOrOpS5baODt4v0l6Xx2un8ViyK+W+AFRYGIYS+GTmqnI+ek0nldN3Jmk+K4NqZYcVK3KYDv pbQbQ4YZbC3vMeSu9+nt 5w1W5rpuY5ff7JZuAXyQzqh536mY+nOqyduLkAVzoH85BibPn2zUXqcvNxQ+a+Ea9yBTWBiNvi0ydoGs yWxZr238K2NbJWnNOltz ZIxen7etS9Ogi7hXJfXl0wXWQDFRvVSxAk7VPMjSpFQbMl337+HRz9+GVAMTg2cV7MQ4zk3YcInLWDq1 R7W902JIwlW2D64M3BGU FNUBvIONkD86BWRO13zvtlA4lqCsaaTeMPoMfDtb36brs0hetuBdH12LdM7UwbGge5Pqk5fVfQv0p3mh 8heXG0bBFV54yvYh1oWC su3WuxycaSkGON/EMXRBDw78Zqtk71dl10RsGKNpC7cHBuS1jceU/4gvV4/x04wLPXIIe3Yz3WyW+9Iq 1FH/5S77XNeVAWu0hvJK Rhva893g8/nj1i/BKFXDWpKiNahKBKQpDMc8EZgl9Ebm97AqU/R/MLBCgsDqSmpDMPUq1+wCUxk3Go78 qKjWloBmdTGKmc4z9zP+ /VudHnCxur7y4r4IyXXyPeqEgtNJf7BDTKxIs0t1CZ1/vfjv20mK6+2ZGRMWgB3wOFqdQSAx5ySUva4t jSQVmSGyY7f2CA3IJQaI QK57ONlJEaBzzwQoXXXFEltAx47Gw9+/gIu0jNCafc7caxivZJtdl7nr40BsX6DGt4+8Ghu015ZXaJzx nbCZKFGI+H3NBFEVFKdS sIBrUkCBBjk1QDFa8iOAyp1p4h1zOa6aNmxYERckNETtvg3la50XbjgXg8brh5btts9pOsmFHziiUwjL tfWbp8cwMM+vWCFhQGKo kiStHdwBACTHzFB/RXpIhPW0vm+ibRSN4qwhk4GWcaopLaCdrHHTGraGYuN2XVf2oVY0mDMqoLdofnD0 BAEIARAAAGERqPRaNSqP MXgPtuNMGA0wzHoBEvGiFNUlnyHnxVT2s3P9qu+1XdQKLv0mVBbqjWf4OVwgOjha6mKiPAmImxCdY/wR ORULck5YoduEcuSwJDba 3IxF31k+kBsu9rkZe8xZVhpgU3Uiq4c1jYlUdaKPDd7FsftyAxHukfylaPvHjOlCnPPCMymtoi8aeh48 kfZ25jkETGCV4Kdye1Du UqlD+4/fUefWwfl6Df9o97iPhqx8hsENPAPkOATcXoDSHEUeTFm/ET8eSf9dyZCZaznBKDNf8xNII7YI WnpZ0+aRb9n7R7cw5Bgi dvhg5DYes/mhJgsbOTbc4fASrvrhBaco/AIKl/Bf+U2cJKvHOQjXEQT94l1F2HwvP90s/y5e+D6Co4nL +xcW72shkTJJS3u4m218 WaUcbCKVHRYimexAaAq8qpo3bi40UHbw8ahZrwOSeX4vUGC6bvAAATYrIZijuoJjCcXD21+vhzLpqalx sqnir5u5mE+/S/jXpbxK tOle/gbBx6eHTaw9JlwI1bBljdaeXpGOHhb7au4UQ3/DK2TT5wY7/BTVJlHyHXKYZy9LWPW614lJQy24 yEyG7fFepxRfIkWvpRCo nW/Uz36/F4vzz08415/f/ZsyJmzi+xIF138tde52EjJHh1y2JjXjMlTatmO0JtpMrw/unW2NQIGUG+io 8t6+xHb1cYnbLdbjybT1 xczx59J2yda5E7++yuYP4tR7gE5ZYUBNP4VdAS2ku3XKfKRfYZHlArU/qlULynpN1f+yi4ZIZv19SOhv iJfRgpcHZymTZuBEGIRQ nhe4QxJOHtoe4ysG9s4CmgaJv6br/cr+/n14WZTBTg/UkpNvPLp14/ZKQ2yN5D4nnCSUhv279POUprMQ 7nRCKNeCDBcF58YhPEpa W4mIve6x+cpyllc3auTq6sM8nSE5p9MmkxDWH6VqlwkDPtEHft1jMqct5MidbcY8+oehaINugUEZqV3P ye32yRi3+7kn7Tg3YQs6 iDEVV9VE2zcmc7sHZ8YWQESInItDCHDarrNGyEpPKIqmZtfUf0ruYwZcw19ktxbBVeODJFPiDMnTkaUZ E2TB/bnVCkvi4XFc8bPo c3J7AgyDfw9L14n2a1iL/XbPUIPvsPlSjc9NFi24JlNpubNkHze7hj0p6Zm5uxDjEhHPdfPgx2iXsb0w VS1Cl051fkCwd89jRjOw Rg6jKiaUiqE/OVy/856yk49gOvrfmvyUe5PiipQR9gc783GaRmkYRU/V9RjPGWvvag4mi9rtjKIK/62f bgSt7mY72oOl/0NRtbAw hzAQrzL422sBGmOU7tIQdzfb0Q5S0GKWA3yZp6Dl7sS9Vf6ukL480vEe8bTEGWbmx6rSQsIzbNwoV+UW erkQw2xWFw79wrd+gxZ8 xoI9k5mXbllN0y2YJYUMUDn/tXhdHRLRqBIu7u7u4ddxFlCk3itYIBgl9F+7t6Sx4ASPN4Unwsug9Inr Dvq3WgiYYCI+95H9MAUd DFnUoccLTXwZprNUfeL1BeXh5jjRMM2xrAkUGPFPbDewS+KjOvpx0gOimiDitxeb+8WrrjJKKe4Qkie+ ReU0QxDf0sHwUYA/wsEZ RuzC7iy0EE6idaPtE9UPI5wScCs5F//WME7irBOHqipriskzEeob4TyUxtBWXZrVODvhCiWdJRPPUz5O dNchDzx80X3hW4QQiGTt 0uXbd+2yuMoKdT5cLgwgxJxY6vRhSIV1EbDGfTvUjKCy4DTt2Qd9owgkmcUVGgII1Lh7KXjSEvUEli7F 8EJB33Pbl0+F5pEhSI4Z j7oH/ykeBCDB1lp983pOWo3wYyOqRljSFKUYhZO5Su5Rc0+ZcG3LfkPz3MMyCMx59j2Q5gw7pa36f5GD j7829NTWxcxh9QN5irWr l+Jr7u6FuS01rJ+E4CcIOwTYSZ7RcjtyzXkliOkK+6OLImucLvAKUXdpb1+Iwk7PNZTHBy1DuT22r/3B X82jMzWWmeSzhD83OVAh uAt4ryzmsQNLAkHok8M0dSYc78Fq7TAEdRaUsN6YGFnhP5kwBpA5Rbs5LGlFbigzT5s9kIjW+pbe8Fpo gZ13fdZYyvOi0isHOlkg BI7+3pd+1vUpBxbf68WWHakgbQVJd0MtPsOP1kTVPWfq13bdMGmOd5QKAVZpGRON/Lzkr5EYasDXhBlN ty7fe/TaECEkac2hs6Wx 7YptQ8WASpsmKT/3CAGpaLZXx16cPPcFzN0eHsnr+SdeMCCpI7ceDA12pnH3+yw9DUeoxMgxUrHEbD6y 1kIynTPsb3pv/b0QN+Nz mMZQiyR/HDcDgZx1TNnvwkQwJTkAtpW6V2mwi12vdKXwi5CmkeAryj3QiQDzvu1Z5PSYb7Xq888F/9Kj NG4f+8+xfJCCA6hHFwHI goC815FhkYT03jqthEqzUJWlLbBFqn3s0zLPsGEY/ed72LBalrDa11d8t5bdCZjyQdoXNFtHuFz6nPpH IeEYhEiaLEILZyvCLvuv IdXbgzkWmXJuZWGssyOkdKJjdNmg1ldDegp8Tqclc6nA82fbXef0yEU9pPbnMnJYl8m5ZiNP5AROgBuN dUSGl3irUhJdSI9Qj1Tl VWFe1Y9rnM5g4kcxWwf7h/8Vqa6KoDc3JwPVXEFtrEMLT1w+hLmGRvvgjiUjvlXGbKwcC3Efae9cPRgJ qvxDLdXBYGlTUKBq4TWw SjS241kGUGmM2CoE6eaET5OsFK+UBOUvQ9nLjymijzTYzAmSmxNBZUry6qngByHVJgKajYnez0lZQTSG 4Q3Wy19D5NM/yz6q/E2a WnsyEK7BtlcIniB4wY4nBjIxxAH75x9/9N7a7U4wcCRBOUgsN1J7tM+HnSRJPQjJKTpUAFnTEgvd0NCL ieG39GCSxl90tCDfRzxZ mLALNnHeiQ7sw2bwjsK9L0lxbotYVNFNWZDznR9Qj1BGaTKFY0EEYWVAHpuIA5IoQiYkkU2PBb3F2hw1 sBxjnuABTg5UVXXoWcWG XIZb6Me9Ohd2NlAxcbUoZQbebTecq3wMXqaLtbp1e3wTgyOTChq7Cr6FzWPRI047HgCP72TPhaHyu4Lv jcJczNS+fPyLONZcpWK+ ruxhxNLZPqOP1MaKLTNOlDkjMhmksFM44DCO2Q7260MR9d2ES/j62++xrmWMw6yDJwpdvIevqsRdKCPV YhJqgSDM1x22Ubodb9jX ydFNEdpl1LtdMl9F43EDmFNAeDIQdtrp4GZcIkGQZEjJ1dyeyoinfPC10osO0rLVM2ruhShQLecguF4F /FUBdWtmTRd0UrJPy4Se 7GMp67fGd55VcOwzoNA+ed+B7dE40t5s/R58GO8mL0Eu3YDXW/PkTuWcas/Vug7b82O242wAQ+izx4jh MMfFw9lejjqhOZCBhoxo DMxVi3iJL3zLnZiDmfpM2f74tk8kflMZcBtZrnFLrfE7FkpDBSj+DEwGrlKwcWKUBkRt3ZP2K5rd44NV GwfUnxI78NKVBqFoBnAO V0JdTmDGZ40y23CWPTwcgN75Or6w6ri2Z1ZSEPmgCBX/kcD6SnuH5jFQKNtcotkDtWVypw9ZYT7MENxL hQz3fWpVM21a+Pp+ROkV Z3tbREQywKBc6KjAW0xYTE/ZB3SWo6Zi6FNoyc5VMpORrSaMCQl7qmruA/4spaTb5EzHGTWeqny1h1mj 08kbXliVMtqPGq938LU4 +En4AQFezptFCHu+pkUBFg0R2FV7+7h5rQm9ZHPvE9BCCG4kXOd9lPYw28pSo/UvYG5RWDrsTKMOSHr3 jbWPti4VwldCDGUJO3Zu Bernabe/Zq1rdl/JIFQbPRjtVpPUJZmr7//1bWHDj5KKtTa5f86Y8ZzHf0z0ayRcgRTXrky/jk57NG5yllbo N1CwYFUWy1OK657rwVoi 75RkQwwH4Y2cML+N0znhRfLEIP/TiWfyvybtvouGg6FTgObiUAyLeOvwN43g8bEeKclt0QCipEdoCkzu 4Jmu8Wq/2WmC9bQXHIAZ UASCNA/YRfUVkREz7DYbN3jcV1VOjtsfvMbnpsJQxMEZoGrNIY7+Axq8Of86t72C25NgO3JlCa+cm7Kv LghSb7afy7fL2i6gHOL9 roCSRbvf739n+P4kuDtP2v/Wpqfm8jCjWtfyb1eULj0rToJDV6jENEIISXCZkV7o3ZvLTDqi5UDc5ptW bEDC5PTvVskVuttQU89L c11IkQM2a2EhjTrJu/6R7y7krQvbPe6b9ziELUqR934wNt9VrMz46tCyvfqjVxC84bDl7c/oYhEonbtg 0Uh9h5ot0l8VeCxBttcR PPsW1nuOZ6Kw86LPelEWpUc9LA342Y6d/JE4EErB8nauvxU2He/744ZODxBCb1Flcr5oN5U1pXVTrw8s p3/M4aYGXhadUVZcvR8m ciaKdfZqyKz3Uus6om2dtmlbWzzgWrPC6wXAMLDgbI4wLgJadyt171f89ddXVE4/tzZxeHDJU0AWmYPJ PXcc3AgttYe9H9KSzqrs 8r18+NBCW891gNymRlFANXkFhOiaGCnDUs3kyD7364UXUzaZ9ir0uZi6O0vp9RawRCmM1IQESaRbFxyi RnppEisTktiMlJGjxu/8 8/dPr6+FG32uNCHU6179vyhnDeVvfW85+uj1RzzQJgpSpjtz4clgtBe4PP5Q1RtdIWQDN0vz3DowIIMf N+m3MzqsqxXxiRT6136T Tl4lRND9mNby2SCrwbri3JuJFu84KVlqWPipF48hUy35qGx3ncZRCaBH1KEXJZfgqmKhUfy/njypZOMR k3L5N+Nn/C09ZPrriwsr IHhdOVLv1Mw8LxivcbGXBGtXY92/SCQ4CXL8cTTMiXOd3pVDHU52Lzi3G757LArc1a8uI8uzIDsPkIwD Ne8ay+tWvVhEwwRksjlb 2ZoZdkzwOneE2q0ru06Hjx2giucB9k0fWKwfgRAA5OFfrK35JohYfwEGgLDlK0pr1eLrXg6IOPhkyU0s EOFsHVOaQQlVaVB3Qwe1 P82c2foiqsUomxbsZyy5Hecb8Ze7yzBWKzWHwzMLn3lPmSUWFUk6o8wkf5ECOu+XCrpjjlmW2BiBHXwY 9QiONQ3slRS35eQ+z7pd cKKpboh3+BJqJCuQyQptjivK82pM1g/vXjzncu8KGiV3vSm7OM8y7F82duikSDpF66LH4/CWsCUBrDCw kBiQgJBkpxYqtFpxBWr+ 7KNrQf0UUjy6ryfhWxKjlGVgtQ5FlQVWpVtF9wVu2rTC86aU6E24/sxjr//EVTAhoOkxsbZQtygh9eDM DVsF5OagvRLesJv+O7Fc 3nzNOQ8wFo+0/N5jcqrXJ8lRyWizEudgGW+WI1IFVBHifOzHliAvetjNUGAd4DXiQ8oEvRSHAUl4Bz0c H7yCgCyXTAPOBsqFDOQi zZPFnEen4Q7KETCGOfLv+fw66ayPapYNoniAteo1nUYHbG3/AiCvEji1lUZqaN7tqRUo8F5Vu3SgVO19 h7UFRVOyGXFSJUn4cvt4 QTHcazRaDQaGIM+0ckYbyWLRCud2Cz5oDpc63wOcTBWKvDXYMUTE8Grnl6vMTib8JQ9IfAhyfZwEmGXu G2bPJNEMBaXDd0LzbBMf muPWGxF3vtRRtRWF2AK65bb0qenNFDRiEko4Xz8Mxw+uicVat5O8MA/MiShjnwg3O8iZXURQfX5YdBh1 t52/mYlsSbPI0REoTeMB bYLCyMdGBEaGKgeKwgMnyofNgVKmOe0JlOrgTEE9Dpwd8zuYVl9v9OYv4MJ+ArFTVykKiETOSa9W+0hj dCZGoiiczJgtCNnPc7CM HMJHGYHVYsmxRhvbuP2lpqaLZCJ0BHXKiPNepNKmBnelcr5UfdAdjRqhgmuNIfOjkJeMG6e6698v2usn JxzAqrrMhUkywBBACAAA foixMVQZDuzgEQrOYJjUqb0G+hfGUqHwp8CgrMbRE12E/cgnYaoXkfFckijfpc1/WUUtTfpRncTC82jR hrfsV80+HFrwZ9ECfEyG n5uUT61K5wiegmAtiZgXmAmmr01A/bHFVfaQuR6lUNBh5xTOaGrTWU/Vi2uhxh7zp5nqLJyu6qONgokA ZEYdPMLSqkKoQUo1OIc7 PLmdz2ZPqjQR2HfPPJoY4w5MJt9UEv1dxx0QaP0ZLblUVMgPaH3dNDoon0ftzbg9Ifl5ioORCryI+tHC ATGpxHqHAWIpcCyYNHGA BNNUDvlN4ewayMzNMnQrQDrvStEDCRoVFlxxXu1L0xEcyLTppO7wudwqbXWqlwj14aDf9dGrDJEKAIrb MS3E1dHMnnbxXQRZosp8 CuBWOpQPmtMxqgd5k4ICKO2ORm1l8gCg3XzFxX02itS/TtGPlwBRSW7uIEL5vpj3YtSfw4LCgBGqVkDA AAGPVGjrsTGjrkdqmscD FxvtsBiGC6HiZnFP1aOE2vJiARayQ8whp8w04xI1+/SosAq+hBmw7dXL76I/qEwMEwKkyZl9B5VugIb4 SZakiY4/XtaEgEAcAIhH O4slJOKBCN9OiA/S31g/p1alAVZrCcNmg7t3Dwj8Ux1apMSyLdDZNdNiyFn4cKUZ7omoSGBLJ87SOELZ tdTF9JRlBYeuhb9/Rw7Z 7e8g3+gShjQ1golDk06shX3kJuQr8F4d9iSQJDqqno7wKIpd30+FaPXAfu++FdLJPYiHBcIv0M21XkT+ yAOjy79VGB+4gG0tUuDm +U9e/VEAqEg+tB260l9r2kTAdUnjd9fIzLbTCP/E8zxXr2gbHCc10RZaLLfp5ELvtKrIwrTqRNnOCJx9 XbyylMbZB5kpsXQ0dlIB jlv4gx3vVAbVq87GQCD6fgRhEQ+EwJ00cgvo9Th9BC1Bth/4zHv1ccReFaBEDij7jxRFFPcHC/Vh8EtL XaDgMIton6nKcZxxgwz9 rHjOJLJLE4MWun0GmEOoCu02tv9i0y32NMDGbtxSxfSZCiVaCaY2fb57+oys13DggB4kFGQMpgwyhiLU uIcT/9pe/sbmx0hsO78q 08sNQtbAHHLRHyJNkHm0erHTKHdSebLQTda+8YibkeFpGoaXmf06mGKM5N5RWcFEWThe2At/ccn8nIIL BAMSQFiVmXOF10uZN10+ JZ57giSwczs6D7nXGtjjiPogP5kIevvs7lLuo0uVdqRfO4+43Rsu+wL62TEjbonnfm1Wni5/q0jUlkKH hgGQdCRm98MFsJeg+Z+m Q00WLiJUHKOHc6YRA9URyBc+52NNsdJky8YwNGUSCJFIBz2TRWVNwopPiVB8cDQEQPJBiF//qFjw54pK DyWpen5AP/DbKGKegb9G Z1wLG1mV+x6jUHhcf8LVkpcibgJKxYMsZLkv2UlqcfucOJF1GT1bH/uCxPikFCkqRykbBKsqtkQyWxAr jGX9NTFOPRPQEuyMre3/ Cv5KCdgc2U7fuZNDpMRvgZee7U/l6cp1te1qp5PApVuMXvqSPD2ky3CxvSZRaCDvzr8gVyDx/FSyBgAr LAwFkQ/frz0l1+uh18Hj dTBVgKZZZfjwaRTagtUUWCgMwJTyGAzMi2RNWy1BjomnyKPXIIOqi7XPoICqYYNNFXDXxNTtTY6Vkpjx dvzdrUmNCOcLccKN9tE6 a6R4PWVhXy3jDGVFtCXrRRSLUuG+Rk3Htkcw02lM9/7ixI5D9SGG3SBsEuTNgy/JiKzCMJzcvCpPO0zF NDQhSK5o8atxPcKyh13h glqUnuG0xhidYHxPQKXkgkAtFUR9ZEKgUyY2YNs6ts2joNgboeWnTto0KJmearOZCHIgntdTRzSp2uia ae45kvC3Tc7+tPFlBqww dREqAJsMI6Hx7uL6Us7SZhw1Zp3CGm4BBhDzwKaq15S6fWmJAwMYG5o3pYT2OcojJjFYJHzU+fJI26M/ mHixMmTEEJZWVnZCkVOT c7WEFSxjVFvfEW9fFgUBrCgvLVdoQvsc/++/FeDt3/y9/MYF0/QaYqIQAsAIdfdq+cQXdMa2AX02f1Dj eExpUXx1qDyGCnLpxIyE 5FAVN14Ip/xtu7egp2mLLe9aLOQRLePGTQrI1Lxb6znk3kdpJz3Djyl3lJj3GtOUmVweUO4uZAF7kNZQ yJu3+PM0vfIUTBcgxOeT MLKsLwqTofHIHZNojQvDUU9iO7tNzp7cmv8y8p+Dza67WHzX9KTygYE3z+JndolL7oeyqModNDsjFLBB 6+rrRRodHTjJFLCYKCVC sCtJ0Yg36Z2XEIPma9+h4opqeJUgRPrRbo9byLT0k+i1+t/NyD3sc4/NYSKCQgLQNiKXLiUFSfHlv6NK IimkUDQqHHjeQsW+vrhL 3LuXp6chCF/KCeo4Zv9+8pswWXVGk81kbLQBUyLOxkUEJqiOD/tnSyBd77F/S7onvI0t1x9/jSy8Vapk u3W3amYBOJeM617xc9sL VQLTwPE/ARiyVRBSFsRwVfVyRHDSUxhHVMZCbYCOTyZupHGKWKMwvp5ZEAYwCAZVUzzZDZUBwXBHMvLb fHDMBXNxno8MOIRgCFYI KdsWUZWEnCCKIqOtcAVDJVAuvf62I4/Y/3cFXjz8+hZBlYYkHlbYknKE6Kt34NaO9csufZdf4YcQQpQc 5Kg4hd44fb0+/jUU0WQa YibQTOmfZ1DUGDF4EF0nFsBOblliINFVVHsj5uK+c/v3W46ojlk4mk1R9kTvcdjST5ELQQDas1JaTy1y j7hZYg9UvHwo920rxFNf ze2aUfeFu4atds3vshcnKwu5jQpa8eL6+vYNa95cQFw0yJlfAbrnIa3cVfRJQP0b1j0sKr46JWDPq+vz x614m5Gp8tWKFPtFsWD5 pmaYr9s0kr4t1Fq0FyGR198com5M18PFZv9KDFep3cnJGAZsd1UHtVtFm70hjhLWYJdGeGNl3GgdFfvQ PiJ5AirdDpu+jslxvyHS BkSzHj65uCUotKx8vMcu1iEQSkJRlFkbSibnkPnJo9ExXjOG92yk9YgwK/hRacaFDdX2Y7czLRBh2n8Z BtWgFXXjgOm1YOwWv0IC D8ncwBsVvAD2+9m73tn9+CBtwqIADgk6QnqgzccMjVXXY2cNf255RiEFnK6+PV+zhugf5tfcnxEHkIBk 2IE2rYMld8m1hTK7n331 DPJN2BSB/V6/ZGDh/zK+oyj3l0mkn5fKIf/t7cAoDARg2ohqLFK2S++6dS5c+Hyo7/0jhPDLsNGeb3+e rPH0XbAH7gsFBLTtSPF7 WgsX96/Q6eO/K7sCrKAbvpSr9GcfhJuVuhuXuoWs0UP5GEqvAChumDndRmeHAxReVjAYz+PHVOcWFOmT eO/aJ+bm/vj+AnmbXnMf 0BG0CDvHb6py/3qbvdz1a07pKvy18K43QVD53WO4SwrOs8jmTB/Ln/z+g2/3X/zLNmFHhrM1a6vgD1f8 9txcXG/r/ysZ1IY15/Salguero 2u3Oa14BuTN4kzYq5F7EcJav0bo6SQEnBWIaYt/e/XcSrCw4ru5Mg4hKb3wTySxfZmBScU5dOAHdZZZR KJLvPhri2bqXa26hF5qB vh5kBcJLQu2afAA7zZLpSEZt1g8/HpYFKFGJ61c3nNqnAknDlVLr1l2E+WtKbvEaAu8imBZy4KTGh5uu HSy+uFPnNBTaKeRIN4d1 sazihMnd0NtM9Ge6jKfoQpbd9xrHrRLHmMBYH4PJmNUb8up3jLSURCMbXLx00AIGwYZCS0+qWr57Ea8P JEvAQe1uor8mDioEfukA z6+DDdbS9PYGR743cEHJ4ChRgpjAsA0ySnAfz418+7h2eVIrsiHxz8o/jcC580JWlqRDurJ9Hb9DPvkJ 3HYZX3or5IaPCrpexc0q E8Ykqgy1LGH11ISb258cVXJmq8XxveJogm+5L1aZk7Sa5/f/uQ27nFKKfh5eVuBKRdDcwg13SADwbZns UbTtGkzqcxSIXIcd/5ci Qczxez7WRAourf+ew6152TuSG+NWhMeHvbg/d5sKrcQqZLQl9t0za1p+Vrmm6HqYEV6ewcEHPuqRuGzy KojCMaQwUBO3cvOHdGjs smRqqTMAu7f5qbTcaSIrjk6heJFyex8zrpHLS9gUScG6Ft8Yr5vDaz5x/vnIrloGE3DeLPw6+fbrHnz8 iWkmQT4BFRETAquIHRbU E5NftTRiZPiHJQj60LSmKUxI1bqkSUMj/x4xsLBTs1PRmi1xpOSo9kunACPrMwlfMSTOmWy7mr3s0xyg Hd2XaZq1bPm0qta2vgiP D+jg6PABKGpPFCOIBva8sg5DvZbdw5XEx0CxNEgzlp/tIJi6JpP7lLr7yk+py8GNl37O7StSJFjfAD19 9tosyUX8o0z+u4o2GJva pdZC2hfQiDvYYeuh8G/ajkSw128/8iELI5hde1dU9kcEEDTIU9e+1lLTVnCmVJNKTiOx3zxZuht3+PrO 2YgEFVCp8I/4wECdHr6x zEyUAcjb69iji31oVyswMhYbHoFwzpTbsqSo86lFJFd83yJR/7Ytr1v/359+c0TGQapfCUPK7xCoDIFW qCpY3Xuh3jYyvw7+4aDB o4Pc1UiE8cHQTlV6SEQHbNp2vAJnErTszpsmqa5mNXYsCwNxNU+/C9khpjc5zRN4PRvBGjRko93SytSE aMIzp63l3bsAQAsLs/eu HQbhGbkfpQmdoyXniwsbqC9n1ml2ZRbl15/sVhcUFE/bTDLFrkPNb43IiFH7b8+vO1vzAX0B7tDxKXYJ Un6qSAjFwmrRsPLCWNQq bLs0yvZvPYL5FNv8+p1a/WDKBpi1Iz6yq6+ScOOJk1bpCb/0nh9Sv8iJeiubDIPncoXPfeTisuH3Fa5u u5SL4bjHyelPm81CEhxC UYoDGQi7ocWS5KSqkBw9fnGuf7gK02CIixHcRUX2iYn5s6gLJm5iENTenXdPB4hJqw/f/yjHG32FsEWh y90KHzm4cGO7gz65+aNm +oo7Oc83pHrJOfuWCn/Rc6imRuzI40f1DDu0RXrcmkuHaM9ic3+FFYrxWaCJD4lDUq58alk3FEbkWtg7 R90z14svtz2r27GVLzNI lde0MNz80zqXn5jgdb2I/XNN/C+C4ePr661l7onrVxjS8xOf2DCiF4GGrQFJu93r1GN5eH7ej1v+/v6+ ty4Zo9HUGYpTc0eGn0Ux snKds19wrUnaqbXV+gw79vv6OFiSrd4FSQamSgKmJAqTlhzd9p31PqYi9Gaycl4W8/Jtu5OBPqCO58il htU+7TXE8Czkqw3Ay9c5 ZlPcUAW79ZWz7gRVhV8tSixY41Aaw7sM4gkM/f4+/pt37rN/OCjhw/9hz606w5cIFYI6EKt0Bnq9/j7+ u3Y/kf+0N07d/r7+jVt2 PtMmDx2G4HbLfiIc//y5Uvzg+IBbFB19PoJPQStKduhhazfr+0a902mrZn4jkbu8lS3CVsHfI/b1nSHT V593JVM3Qxhejk1vNNVR oADUysa9tTzF5M27ijEvJv18dWz04oBiTLcl/utv6/f/9s5Ul91jpBJMP8gqW58QjG2dvJhd7wZOILmD /GvROmpe4M0l/Zsf1+/7 c57qPx5tgDIbTZf2Udg5/GRhNmnUzGvPRWqXTJfMji7mV/Ks3v6NQaYvQB41AvDnKsFl5criu/vvsLT2 dlhhuqJPlKVmHd72uJ8x TN++snf12/SPp3OJS+2dStf+L270fCf2LCqstnK48+YaKq35t+sBtoQJbj69aCxtmSfhgvE7Td8moTKZ Sel5ys7yvJRZA0jm49fD xQ6jSu7ejKM3Jl28VKyjFMblbXiSkZV31TM9qordBuTpVoETWJQ2thuQ/i2kgU+Ne3c7e0ZiTnWmhZ4O meTEaSHVa2x5++v02otj iDIk7AeJqAw07r437CBGHSp35ST5ODD4laurk7KDqrPhYhR015BG8kO3NaC/QcO/Nh704SOqgJPQ/Hww XPJFOXi8jOTx3Xlp6ky2 QjjHZhxdlUGBGIYZdsrbHoUEG7Jg3NNS6zjI/4H9x+wKvMRpKamxr+JN+36+FQlKKpx9p1ev0Jz+S8Hj 0lwX84oJG9Ag0fMxzBpW ysKn72vPfae7wimaMa3oqIZw6vFgiq6/mitv65dt84do/icDTngAlpC0iN3aRdOzw98dXIbGVI0FbZwy 0KVaWm77bmeev6WUuYsL uhpviehzHgEKPKE2glcPOFUpTq/QQrYdBPXEHbe1dXmGAp5r1xhAY8/yaNDJy8zg3ai4I9tOh0PH0/Pu ZJyG68pzxQHBq1OSmdm0 fwCc+fN9/U2kw8UNHctQX4ur/Mf2k65SorHFa60EOgT1Vd8kzP+Ih8z+blbj+6llnz02PDI/f1p2Vbtu 23bu/gyZAyFxUZF7f3Qo Cr4s+Z5SmXf/v2+dyfSUP3kLkvo/vp7KbIw2GhVbhgV9Zq1B0sN9bl8+qYEnBaS1H6CjNlcyaVvS0dGi mnAFmEDChOwnOWo0cyRP inm1eh5ehhOGxlDKXzvgeKxH58dre5vSYrBROeddBGzYVaTrBYt8Ujl998YquAk9648a0nDs1VYNl5aH YhsqDJv69diySl9U4zF5 w+DBNQMrFe/vtUsbt+60pZAsmsPXqxiGKLqMYBXBuDyOT6lthefPG3+WXKpAoWUg06wsdrxWTBZXIpMm oX9KxsFhxJyWtcyanG78 ipvS0d2/6lMjiEggWpDe9+PBd4+Vw4md06MJ9s6vrdOYJVPBWXW0OSDR6XJIQ0+pJHYdbe3z4/8PHOWV QGSJIUiEQCIxWKhUFhQO vlZOG9+WWZxKsZOx14mYHUY50wKPpjXqWi/z37x/EV+hHvHwT6frlHS+l7uWYcy4GlhWE119eoDhb5uO pIkJ0+ohnp10moqLMT44 42zhQKCdmXDF8psU1OrON9yYCNiyIB41aP446D4z7+/evWqX//+D9PjDEng2g5szBdyWmtBq9oYcurQ1 /fN8mW/tx8XxMSlFVRA9 SRl/HTF9jpYixl/RgJoDMGdOZ8kjdCMyKFSuN1btTvNuMKQ/bgoPq9gxYy3MVR8kOvO/98uUFmuIENH6 zHQJIC2j7/GlqTG3jt7A N9+flJUcIcO+Q3EUzQbRMn9hJFz2odNM/wmWk4hB39z1nFoGwkqIegzTkw8/Z/IyBPxH1Yv69RV6f7dD Qo83yAVkzeavcShOAC+0 SSRO2UASKqvl8N8Mw+XPucm9Srz4RhaUNMcIp/9/ucZaRoFVHbfL9N4B8VIn0s2lGUsntDdaczmZ6yFt UgiWQz9j9tqhn9DCRTmy Xpbi/AZLpGj3zgCCbInLgun6+DK64XoDnZ+6D29b5cNOLKkuZGuLzqMQia5O64H1Fv234tiwn+6Z/du3 arD6A0tCerAs20Xnbda3 7Vi7YmDqvLUCM+/wwQ99Dyq9WgJ057OXHedhnNzi1k644/hT/XN4eDf4+rVr//TszHWLc2iSESlHnz8c U4WkYxkSADDaWzFjq13g t5hgTeYNc1i4ZJ9oQU1+rd1/XcStwYvH360tMCzVxvax35SIGXejjFQGxouPGhzZiePCScTH/r67Wggy Sdc25oNCqpXfiRh6AEUY /lt/nARIMRzJCJ3Mg4/zr4b+PunyMzMTExIrN+jxM0OS41xr/uw6XR2Kh+FokHcGKZVP4Ah/mpRCgQCq tD7J0+Q35w0q89i+Ob1m 0k//XGIU6pQFnbc2hyY1r67Y//mDQD4+vn6+WQ9CBQyxpa51b/PGRkZ/HdTCOZK1o7n+CvNFwo4fRJ/w sEDb++vixUYIBOHxWo8F q+NbrJiRDlOCF8CD3hP4Cu1QvSKEuTMc5M7fsb5JlSs5Ocww2tvcJPr1y9lMk5jnjqzUNh6NnyFNair0 QiowffIAODB/swEMf8oi 2YFYt2jtRL7vTiDYhdX/f7gH+9IYCtKbMrJEHKJ5gbcM0PI5xOMdIuXUl1nd4qw4k/eV9v3NHYR6N2tx SfKhG78zwkQ7Fu/bldAh jXMQAOhSKsYp4M1rkn1v7VdP0afhQ9nkbpnmV9R5CA06ZiDBSaQRvbp/Pj4+xA73GjE6Ht3m3N/z7kzZ qPYKqbQWRfwKMAw1weME TYBPgRnZxfzVpUyV/sxQbCgtqelNl5VVj4KUMBFYTuCFuegUs7NsqR+/PJvwmkcNgGFg0vu2ChwlvrQc Dj5NGVb96I4VhUbjja3+ lyi9y484WBOC9Qdze7neB0SCOu4E30am4GvfofvkcMJiRiYc8+/YxYqYPdhfoi7EvOBQ9VhIx/erXt3A TzKvVMlO3b9mep8sI3fu ZYokK2prB/ZfOL7UqFzs4vQwVv64Vif0hDddcCNFaXRKVTsaQ+OMhUeKvH54tFJQ0JO54axS6cuGRTIq 1Ryr35eQS0FeLHW4VfBM ndq3+GHceMNRoPVDoWJ+x8ptYy4dMHHz/Rs0Usbe9yf1VA0jo92maRP4uf3beiYwe6oQzCucQ3bKyFkM d9u/5lBLB58yc7bb1tqY ft9fce21ZAyze0+rdD6ZAf9FSwDuB0wOszWSWOkQ6vMeRobP76UARPoHp9wA53rHOkckqULJlmOuTPZv CguAAkCs78OuqhVfbbhX 9Ei99FGSXcEXf79R4aqX15wCytV2OVWBCRX69yuWXuRkCpKtAbKjqHRZQgueSPq/Ygecb63BGbbe7Of5 VCoUbVx7yFvmMjHsH5jE uvrli18/s47BX4DCArIE+M4bv/iaIDXNmeBDvCKdz7ll9iULBVDtUjLQ3B6IXn9/9dn+MiRABD/5s3EC RM+qGNSoWLFPn3/9/3YM v0eL3oFarEiPl+Yoa2MpRcvVqv2f7rfvgvhtN1pi9l+n1DGorNpd9qIPNmretRuM7YwQzZP5g7qILNe4 HnNpPqFYDs04JmlcwIsQ FwgEJib+S622APoCvgbg0nk6t4/+iQSwp1Ia11pq29jLQi2v5zvZXAA/1cg+GArG9+zZ9OnPPX/ruM/d EERAtNbnCjqLnqvJPBeA QUyj85mmvT9r+mFo81WpdZw6AIj6zKafLGgYk7xYCaJvyMC/fWXKxBJ1Xhpd3uHi78bElR2LQti8NgUc m617LT1UnQfHlvj8he75 BbI84OkObzJAy8xMNG38DhQ3e6TSCkqAwLJlcYlzu24uiYmvralZDxiNV1OW+ou0BM4E/mnwvDvF43tI eetq/5jGFlCJO4iTQx2q zu+76GWfUV5JsEc1bksnN4EjHlwWAWqv4zv/DuE0BmNYJnMC3azmYCNjc7mLkLcJW2ii/L4ib+ffi8zz 96nT5/mZH9Av/8P10nrC kFQc9nyGuURHXBTvGaTPv3zI8dZxTWAuZMDIea9DKx9pIWcxiyUrGme/Dt6IW6xTqHgrG9VuLqvjeSPy XbjyhSsZkyyOgeS9JfyI lJhRYQDuu7wqrcook+fwKKDcJUwEwYkIIKvz68/yskPfkMPX85hfFjiezYNd/+yaNGzZ8/qIs4sBxnnI v67frzpnVYCxaOb+Ftru hyy3p3Ae/v27F26+JfuPXuYDzN/BB/9WtO9ob415493bq65weucuh/rOgMG2SyZd1Bmsnse4QGbYpVB2 Tt3/txuL7KVTXFFFpZDq acNGVlYFAytsfLVmO5fwe7nc7+IESZ7Q9c/7JQr0xSe6U3FuhdBaRqaTbbj0ivhrAChyp6P+xfkffYRK FTCmOiEZGq05pJq5+3t7 i1jXeeWG5sFwvdaI66fNbIRCuGGmxQIbQrjur/Oyc6+ksVf1aVakg073cGsAfydTWVlYa2aTdk0SALbH wXVuh4KGXcBPoSB23nnR KyjaO9RxCrqpqh8vkvuYg67yKnuEk66FcCdfEqrtzjhdbrlibmtCOSJgONnTLlkLaJGGWydamGvHS0yt 45xljUr25XLyoXD7cLay Iul60ZNbf2nzgDm40wj8/Qmq0ssl2ahqSv6TNIxWUhg/ImO6LNxMT8B5k4m2o575XHNIZmv2+fPBw8Z+ qWH40c0piQcFM4JwcPFK HVS9CG9LHFJnlbNFSJ3SGG60vqhs3zu+0n4ouI3SW76m2aoNkLZt9zVFuJ2j1TvBqjSkq01v5/lJoqmp m9xyx4zJMcuoYyaNONR7 2AjHxrzn5Fz9HS+uQ5uX6yM/8vNwdGzdLSKqhH9IweWNSbF7x+3Xz/e+nK0IhwMpHw/D2shdb8y3Fvnd 2lN310wkEkhcQLUhnDj3 DxVQRN07Gui/1Ub/x447Qv6Q8FEcKx6g+KCKWmtywH01yheHVAdSDPIauhr51988IdN4hI+ml385oRAd Yfa7KqIelZ7bXwu/+2F7 tSlS+IDPRLkAFa73Jzi3il1e8rtkU+wi2oEntfAodnpBg7FazxKsrQQ6Sv22tA7vSEr9u595oj7/G5gz Zp9+/BvvcW47C4vogC+2 FyftSa6SURZ0Qf/fHQJz1zirk3qvxBUASGbQrF1YhTuGYAb6fcf3z41j6c/AkBiYuLkH3/A9XVA6iyMg Sq4W6EuDJAq0qBFYUfIw kk//Gwt0Hyzn7bCfY0j64/f9jdDZWAf3u723LGlwQbrGV0+cWQ9pAXTY8x7QRXPIRHeHFl4QF9DA3407 ueZc8Pl+LHiMDVm7Ow+d /KpxbNOyTjdSomowf4L9k8H2+/b+/ps7qhq05wygzmFCHsG+vlkOuRG5Id1mhGgQ2Hvxzj+gnPR6jyKj Xmstfbg/IUL+Tnwf+7ev XXzZonESg/F18+IqpYhn3nHX8XvpXGmFwvxPJNxWLdsKT4/xmuQyfnBNPBp5QAev1FMtMnM5IGtEYOLI jyX31Vo+BdOM1Pc00iaK bgrZUZB5Bfti43YLVBM/1Elb3qLjv9bIXXw0D08kfKVozxa+KxDcsmd6hJTj5EGgys4FvPkfAqO42/gg UnDRNXbKin3kiSC7YlN0 bQFWTq+UsMzG6svWSYYlUwgeQXX5lmHehmMt1ZlbpQkzaQWFaKMZInbqN/GxTb5EfY4We+cPmPRArexs D12c27d3vfPt1vM5uch0 Udw7zLqc+JSsvKgZd3gZmyzyjGJncH9dMNU8RUfT9yPKEq8qhOl6XcWxjWJOJybw3SYyAxNnWDpRDmsT aYh1Gby8gfQ9kMnbAZ6n 0HR320F9LX6isOCsf1/AICnp+zozygM49MGfHeG/gwQRLJn9lk8q/q5L165geYR+7FsrQb6J/6GtPaF1 dsoRILwODEzlrDvuir0j 09gYxMOok619dEAt9ZI6cyUvwVFbv0CPCDmEnka/D0vEiaZ9ytVuxESmz/yFqR84wSA8J9sxtSdHyitV ApNk6Dw4YZcBsYD7WgPg A99Hu999p4v175h7Y0x5kBzT8FeZ7H5ovijQpajaFDcbUJJzER67JutFqnr6l87H6b3LFSwVy2PLCfM6 hydw4F4ucy6YVIA424aq 2ZpAeHyZRbMtKXyAFLvVdBd1q4usmFJJnGSYy0UWIDliw7Emm/qlPb1TQRkHlw+fetW/tm2Hyhs0LPR9 o2r3quYVgHAAy1ATegkV zwJxaBMZvnqlsdIMrWi6z6fqdubyEkqHMv3JGn/yT2hT8g+IA4VbenMleIFhiS4DycO1iMqOQSvNn08R peSlA8tvw9mrwoFIs7HE NnBfc92tUuNZowygr470/sgQBAJe7xBUbzu96LvLcLtGyxd4vUxvpPGPp0i8j54FXZggApZTMzLy59D5 NXk8sQnjo8lzy1CkY83R q9d6+olya+QZl80jcrZwf5yp3M6aHPdhClPLkrOlFG9d/scxDQHx61AmCb76eA6g3C7+pACv5dgyo2cxox BV+NJ1wo5mc2RoXzR6Mb t1dAw508Lzl2pullKmivm500rmmdw2an+gtSExM/K7h04bA25GUs/gR8/bFRWFtkkUDzFre1WppB8bkt /CoUWvWrlkjFosDAgNMf jfS5O8aLSHyNsLFjNgpQ54lpBCoes9dvRWo5Ec0Aj07tm/12vKII56XeIXOWWeP75vv/124h6JHHf9ko 6ulb6zfzPIg/uVLl5k+X ZFZvKHz03+HLHUSno99L4IIAoW1WCfn7+5mFBropRk4CWQufoqKXtFB2Wb7Hg4ik3x86BJl3/9ISUlRK oCMb3efUkJAmQNVYL1dO cym7RCHVIn3eDKU8/Jcm8IiKd9EjKc7S/v5s+w5HUl8A+u7I0vKiDw3m6uICgFHhFugoV3/f/q03hJSj 4iu4egU0kNSddnXAQXdE rVkKiPSgphE7534p+6cOVqNtk/wxrXj2F2b9KpxwCkcHFG+FHUeufbQuvdLhfuwk4IfQIZQ7spHaKdZH A34PS5F+pkAVzjsCe5Ke z7+TbxAKKBIUqVSRT9+iTPipaTIfc7RpEVcLWuk0p4e/JgctXAHx3fuxj+7ju/QCNDdN69QiNTQKKeH6 p74Mv8qwrxpruSrMTI3V Cx1NpUnrgHmvLjpVAGzx5D/0q7u17BKDbXqTxEA4knV52+em6yy8ze35Gal0TQGzUwpdGEPdv0bFqqgO dhiqNd1vXWRUZOBVoiDB L4PgjVde3ozP9XzyM3lSiggyWdo06umdqi59RuSsOwK1l+QGZYMjYgdhK0wM+UqZuxSaSXGoyvXfS76U cRdsCSzlwO9jGlZj6tm1 mgnYqe6OxPESXhQiLpzuk2LkkQeu+qyFS5OM9ap7UHcZJ9aVKMAbe8IrfEpFWIRYIX30gt2326ovtkMI bv/1R5mp35bA/j5+eWPm 5ube/WVkZ8yS/P1WjWv0+aLw0LcvLN283+fP3/75I3m16d2aSi1FhMGhX051/FJk0n5r5i8Vw4HicS6q nhj8MhWU4rAppLo6os6x XLAYb4o/qUIm7fKIHwTM+GKSrFgDtRnUXwx2vGH+/evHqDCBNANWv004pjNL1wNNdLe3A6+ivQ3S5E2p QXgxnQdhw035agpb2w+3 C4uN56h9vQOWYGBwdGRVuGeCw7ca/zvfHdLXWoSEoeMI7mMJ5YHRV6yLf1kbLBEzDdEIc+/Gh1lSmBse Ivh4wVsh1GvhEGaq1hpg wx1GLkwCTjFJuYpdO2jgpyy/+n240sjyq4co9/CLz6NRXPS4v8nqNFTKl3hietaPWFJT/pNmo1iRUo1U ZtQGY4NdSICnS/+/axOW 7515VXi3fdPTa+3KG8u2x05f+/W48rl3Tnnv3vhTRYnitzhY3EZK7+u+LSUuSiQZ1Dxxsghl8x8UDhPu UaUtFotyzIkSfKViRASi 1K1VHgA3Q65Odz14LK1e0gpSsU26TY6n+1jlJaITFStAQZQObf9Rb5IKaGNcyRwrT//6tWkw7AKaFNKC NKn6d1rbzVwP3LR3Pe28 2e338MkKQ7U77uIvcCeKG7IQZT3CRa6s23tlltHLPw6/6uIm2td7SK7fkh8iHBkmimUXwAgB9+eOSsSi aH5jwfJenaje1aiXLKM/ 4ED/6mPjLAs++D+d4eBk0B5meZYrLcAHKPILFW9XIgjHAA66gNw29WAPnQUSozw0c2Z6hhmbsofb3Yaf 3Md70DjT5eVqhVbzYczD c8ROPVmZ94wGub39xXARBYajSbmhBw6OsVh3wd/8jTi3ZGXw8D8zlZg6CiZ84SRXNwtgMqiOPkiFOaU0 4qWXRSMCB1/5BQWg0Le7 +Ski3ePTepwGg/Bno2bnSKUGc2dussFaTak7oeeox3GkDmQ9+biB4wfpAbLhUeperE7+owAp2AdbUdiG Dp88zJLf+7kOrtRBjEQ0 jtVq7AnRsGhcha963MQAxu/LRDACJqgsPXI8WN1BGhWw8IzyUdWiqz0jChv+cJgMJh/A//Y+AgZz8K2z rDCwmAwpQassDAYTKkBK qbUBxUzyTvWf5AALwQHaiTscCtiaKPVSXkHZfdAVwNjxMnIx9VAQsPHrnFdcPdqdESMHJyQOtrAAwVdj BkMo5BZSpMNfrXprByzl EGPRHuAAnoMIcStyGbHq1DHTwFYoeOyrHyijBNCZXuPZbqPQzXzsCsPo7NXQuTT+iy7oCdVeLEhPn/++ TQwzqrc9a0cQkc3i96d2 +joKBKJ+unwmxPEbr6xNt/u8u28oJKJ3bi1J6pLjuZtDqY7Evn90em2vrg223cw5w2wJc7EUOWb080Hr dHRRkXzOdGg7DAM3224f yssw9VIAJ4vx2/W2KJi8sppAueBo99KU1+6ouWcKBsFBYeJkrzz0r8gFpNijuz/SEja34Uysmm+qR4+f Pj/zOjSpcuuXbs+ab5Dh i3rMDWJsQx/8n251kbx//7qgJ5EZNCTCFJTSZqcA3gxkePtKA8YqCzNED9hOzAQD1CN0zPlE3VOu1102 m/+wX8xxxLDk814Hyyl3 uICAE+ePCkk/eOxedPSjg5pSWjJeLKBqQc7tUqCKoPgEB2dNc0MCLOV3iKPz8oTdv6EV5hQiYaSclHSo 8yGLFb526Vcf2O3/ZkzV SnX3f8Hw9YWBNKeed6/9OdEj75j+CA5B4IG/lfEDDc2EZFP5NIeRuvg+dRarACY9jycMPFEjDYepfY23 bNnBSW+LkMPKUz53eH3q yt5960tC0AnCI6hWs8ezqcRFmCweICMJ81vVsfWiuvy17dMd1i+4wPZlkvzJxtGtd27+bei78TYvwedG coWUg4eDCIT7Wxu5Sh6T UytVv/94132Z0D//v179+0vYHXuVxj440gVeNbU88fuAis2xaQmhAh9+E9l4ww2cgjLiXX/rIaFhTVt2 xR31zFLTduR72XAYj+7b v64QsGbePEnM05LYNgCFBlApub0nD/m4WPCCCMw1tPTFpvjH4iQiMwcklELxGuHb8q2bKddVv2Qdp5Te a7j8bjGWRPDs7xrFkW71 7/z2/qRjItu81o01gk/UqefZ0y011AAQbd/CMyc8ch0S/Pbz58/LiW8wpxpQJ2qwMxQfHPkwUvvrLOAp aX47YxlJbrbeUy5lbDJC fnp3AMuNTrrFUvHFJuBuYRHFOmKPAydfarQJr5kHSQgo1DRcNoh/MmtkKIsTMAMcTiWmkNn7lp2rcSPQ ORXWFlZWQAwc+bMpKSkw vLRCVynPsPL8QIX66WiA2kjQ1Po9GbxUM00YZQ7Nz34xDm12iSKhqIfb5js9ylBTXfMZSLIilf+88H3h hh8u0coGUUc1KcsAbKnW nDgwPztjuHDh/UtZVwRKIAf7knI5YkRkgSOh5mQpROCJJr4tzMjNSXUTN9hvfExNUwPkN24Qv6k/Mbs2 eLuB4oHLzYGT146qmJfk ampvNJB7/wCHkKrEkeS7Mt2DayvjGb8cFjq2jYhoFzRcf7uHNn3+/ujQ6JnCeBf2AwrtRRdCLVPLWahT k3Zxe5Qc9QA15JOzdAlo AMl771qzwBeYNNN9ON3IWBPg8NvyfSz3m+mh3yy5h2yNgSTnVpAutUkgl//sbonYAtYYAIfDu7TxPa5r u3OnTt/++53KYdYMuoA6 iOFV2UPYtIFGabGH887n09Ad0ErUZlssNwtw0z4DlHumS5/v/vP4bX735rH2M+O1nYMn4Lzoe40388YW z5x9MvhcJ4YMHGFZc3UQ UlKUFl+lvlaVeVPMYdVYhrnOwFan8oYIM7D2PIgr1CXtWzYvHCFD9aR9+OWi03l2a28hrJfejrq45521 vYFpQAAc+bMsThYUAtLI kCRYQpzUe06+MfqsfgHmrGyFzXRemAzFg9YNMd8ilaknrCqJdLvLW3vxioVQ4tqP4xbmfpLRR1tjtZ9P Fxa9Ltj+YtUoUKF/FY53 MHjYHUK55YeQoLRV7wUpK9z9BYtM5Axn9b49RpHUvVt2TajJgSHeOkRtW/c7V6JCloEmLjNXd5x1hs/+ uqrnJycQhJ5+fJlMbNDC IzyWIErgyRDYt66Hs4bhuQe8O8YwSLm0xcVtPnvXscen3+FSiKK2nh4+vqacjRhNYUaNWoAAG8+K4SyZ puZjHGHMlBne4KfbwTNp Jcl7TMiLEXd6ds706GeV+6nkKQRe741OQjND/2l5mYjN5301275j+/fWEo7OMEXwkUgky2XSDXDHBZpj cfRUFIZzf5tvWrbAn911 ruexMx8BU4aLf4tSkg1RrjzUqCCkW320QpplQbgnOqhG03hAC4ARdSvWSYmg342a9WelfUDSzVx208/+ +23cePGNWzYEAAuXbpkI J7q3ixASpqhK96UW9EdWFJi7Cf7w+q4kk6n3zwEw3PrOe10VkHv+uSg3M4H7nmKVBu4DBH1orZI9+Xt5 LcuEwNKzGj1QxVHTsTRU u82uhZvWhzp6HIgFeh6tjo0GkS86D/6sdrgRWQzyJkh8pihmPCR8adoLNwEZ02kGLooSBB6D5X3ELJqL QGtjmB0CNarjP/SokuIE Pmsun2G1qOPw2cDFPsp+s9H4W+IyWTwNcRQGj0tseQRbgd3Cg2i8hKb6ur+zaUfn2CRWBBNdu5x8d2i2 Qbg5cz10xRwfoK/ERQUZ ZjniAvBK3q5f4o+49atW/hUIUx7lWhKu1NIizizZkXQOeBRSmW2sFvZ10/Unc5Lwbal9Y2IidcwFxH2w 9bM/Sdcpf6BqA47f+ePW RBJc9hxtGxd7jdNsYEE1Hp8bnTv421OqDgXL4b3qJKpQk9DSoIe6rN81lbBIxa3rm3tVkK4frb5noTZF UFBv/wyw7x484+/FYlEP j4+xr6O7xxC59exS9+syc/z58+vXLlichMHgJ9++cqj4vn0jql+/t3v197evWy5BglHbvj8+/dnWdZoN F9aYZbUsXgfy0I2Ks6lz Rm1fzyfdwUlUa3w6dkHcKKGQ5kx1Ay7hIB/bSTBqH272m5+/cNockMjMxgwAu9yunHmxeJYJd0a4f54g tSXOP6FHcNAfApjRSlgg tIzLbvxKSJTHrHUxDr4W79jydWDvcIxnXDk6do//vrr/EJbhS5VcwLv4ltQ6ReoPjPXBqTbxwolxNEp7 zwtLsKUTdufYICX3WbFQ I2PdENmY75qei5mWVQJtx07NNAIPo5ki32xdOrRpAmuK+rYmXeAXy77kWYr1R/MhePqTzo6YyUIgNiVK paRoRIooRkXt2NEBhWKu aSxgTwpyVRQMHcVPrvWHvStmWmJm3LZDmWVxcVjhNe/A55RS/u4v3HOBNADXNkZQiXeEmHT></span> </div><div>
</div><div style=text-align:center><strong>GYNECOLOGIC ONCOLOGY CONSULT</strong>

</div><div><div><strong>Patient Name: </strong><span class=clinicalNoteMacroHighlighted id="[id number] macroname=PatientName spantype=macro title=#PatientName>ALYSSA PULIDO</span> <strong>Patient :</strong> <span class=clinicalNoteMacroHighlighted id=[id number] macroname=PatientDateOfBirth spantype=macro title=#PatientDateOfBirth>1950</span>
</div><strong>Patient MRN</strong>: <span class=clinicalNoteMacroHighlighted id=[id number] macroname=PatientMRN spantype=macro title=#PatientMRN>[id number]</span>
<strong>Referring Physician: </strong><span class=clinicalNoteMacroHighlighted id=[id number] macroname=ReferringPhysician spantype="macro title=#ReferringPhysician> </span>
<strong>Primary GYNOncologist: </strong><span class=clinicalNoteMacroHighlighted id=[id number] macroname=AttendingPhysician spantype=macro title=#AttendingPhysician>Sarah Coto (Gynecol ogical/Oncology)</span>
<strong>Date of Service:</strong> 02/02/2025<b r>
<span class=clinicalNoteSectionShowSeparators clinicalNoteSectionVisible" id=[id number] internalbreaksection=false originalname="Reason for Consult: recognizeconcepts=true spantype=section suppressempty=false>Reason for Consult:</span>
Cervical cancer

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
Alyssa Pulido is a 74 year old female referred to [facility] with recent diagnosis of Stage BRICE [...] internalbreaksection=false originalname=Genetic Testing recognizeconcepts=true spantype=section suppressempty=false>Genetic Testing (Martial Arts Instructor Oncology):</span><br&gt ;None

<span class=clinicalNoteSectionShowSeparators clinicalNoteSectionV isible id=[id number] [...] cancer excision

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
Never
No history abnormal Paps but [...] internalbreaksection=false originalname=Physical Exam: recognizeconcepts=true spantype=section suppressempty="false>Physical Exam (Martial Arts Instructor Oncology):</span>
*Virtual visit*

<span class=clinicalNoteSectionShowSeparators clinicalNoteSectionVisible" id=[id number] [...] & Plan: recognizeconcepts=true spantype=section suppressempty=false>Assessment & Plan (Martial Arts Instructor Oncology):</span>
Alyssa Pulido is a 74 year. [...] and Sarah Johnson am located in the [facility]. The visit length was: 22 [...]
--- OUTSIDE RECORDS SUMMARY | 2025-07-23 18:31 | XMS_ITS | Clinical Summary ---
Author Organization [facility] Address [address] [place] [address] Phone Care Team Providers Care V Belt Builder Name Role Phone VoteAxel walter MD Primary Care Provider [phone] Allergies Active Allergy Reactions Criticality Noted Date [...] by mouth once daily as needed Active Dennis-3 Fatty Acids (Fish Oil Maximum Strength) 1200 [...] infection 06/16/2025 Atherosclerotic heart diseas e of [place] coronary artery without angina pectoris 03/30/2025 Malignant neoplasm of cervix uteri 02/08/2025 Overview (06/23/2025): - Squamous cell carcinoma, HPV positive Hydroureteronephrosis 01/14/2025 Anemia 01/06/2025 Overview (06/16/2025): Appears to be acute on chronic however I am not able to access [facility] records to see further workup Perhaps anemia of chronic disease in setting of active cancer and therapies. No current or recent notable concern for acute bleed as cause Hemoglobin 8.8, baseline 10.8-9.2 Ongoing management with PCP Melanoma in situ of right upper limb 08/05/2018 Essential hypertension 03/11/2018 Encounters Date Type Department Care Team Description 06/23/2025 2:00 PM CDT Office Visit [facility] [address] [place] [phone] Hoang Galvez MD History of acute kidney injury (Primary Dx); Urinary tract infection, not otherwise specified; Hydroureteronephrosi s 05/18/2025 Documentation Only [facility] [address] [place] [phone] No, Pcp 05/18/2025 Documentation Only [facility] [address] [place] [phone] No, Pcp from Last 3 Months Family [...] patient's age to complete this topic Insurance [facility] [place] [address] Care Teams V Belt Builder Relationship Specialty Start Date End Date VotelAxel MD [address] [place] [address] PCP - General Family Medicine 05/18/25
--- OUTSIDE RECORDS SUMMARY | 2025-07-23 18:31 | XMS_ITS ---
Author Name Interface, [employer] lity Address [address] [place] [address] [facility] Address [address] [address] Support Name Relationship Address Phone Jesse Wei [...] style=text-[email or web address]:center>

<span class=clinicalNoteMacroWysiwyg id=[id number]" macroname=PracticeLetterhead spantype=macro title=#PracticeLetterhead><img src=[email or web address],fEOZIa0WNowIFCNNFScCXgFMEUSVMMRlSDPCMDX7Q6iBZ EPTRIKCJ3MUzl7h2CUWXNSkJI3QSXIqhvs5XTAWZFBKuBfFesJWQcPVXE0VVIGvWtjITWsRULNRFXdy7 A8BoQM5JpoRZrbokmN2R jRgYoCAMIjtVwiASnxDCBYMMDOnJoDMCJqmAmjIwIWzJOUL2BtdQo9FHwgqP+u8/Esj7iqn2u35E32So nlggciipYhYFcAY1feAd TEEULiRNehXiaLrI3FgBRH2uW/gKkvGXIjYjDOzSFUozFHOCMXhFXRPUMTBqtIWj0XDaiEPo/gECxCGY TmPI2fWv2EsfOo1Kv8ir OeXxYgnbzKSiRRfa01URrejOHTCe1qeUGYPgKgdyPMpUu0jQ0nRtAhhMD4hjWTPhio67vxfkuCC5idQP Oj8i9KEh7nqeOv57nDIZ zYiPmYl8O3uAavpTgUXIPt3WCeS4dlhaGc5zQcvf6aZYpTYGHnEcVdPdznQEFjIbkN5gL7qln11cIMgA /WwCZqzl9EUw9glg2Or0 6oQw1x/sABhrlu+/mitdq6660E/tRJPiXaxTkvOg9nXEyDusvujDNJYBVQQ+AdQYHAQBQQQrV7+EU0e+ vFbLImU38JLbjltXt8Qf 88DJbE4Zbytt7+vIWFS7w+xRx8a//2yIwaHNgLTIuTBb2+j2C6QTeeLs16n+7YcPYuQgaCNvE95qFynm Tx++/btVL9+felnmOsJF iDMdUdGRgYFBQVJ/iYDcJfMnwfAMhtVAxXYBVgHA5N4Yq4za4/TD4IRuv0gBf+ExnsbdRAR6wkSCDbzR CSuR0f3uepzjdOvZS7h2 Rllz72fW7VFig1V162dLyRZ5TBFUTfqUYBmblEbSp6yoWn1dZ49MUSvRurHFP+2yl97nJuFsAwodI8uu IEw/wpWrFhB8+fPp/Xr1 4IoSoEYpCeNDr51wABjdagtyZSE84TpBOoY98E/vbyShoz1DsZSNGCPlBVVuR0gVhFiHUFVgWXoIy5gt 94xaQtbWsMob5EpDVI85 LNysWBEZ4jfkl4JVgEDhaLwflJKipAFPjFr5Jv50qz3ODmQUnqGuStqpBvPR8p9/ZFiNPvh1lFrMr+6s 13pccdqYrRgbMEgPcE8Q rEcEnWhHzEy64gRnXBNFlYAv5ynhN1BijL9Ia9jh2n+ojz6TQNZFKPOrJYPNFosIyBe11//vhQmDFNQ4 E3zkdCNyVVlHHLSM2QqH 2aTgL661vzybsYkZCq30zvfZhH8Q93lIe2f0v8eyp+wvHtDM4ecivoQq567Gm/DhegdQf8nnBSSgPfM8 uYCIA0GMTX4WUc9Ghq3P pIioqLpu4+W4Z24UwK2AU+gD2e+YgVDu8hQTC8SEv8C63V9lV3pD3X2l++W1+pDHJoEUq01UW4plDLzq niOvQJBESYHtaBsqzq4m PnAZpf5yyD5gHpMVAAU6a0+e4Ih24yPO6WuWzdHh0372b/IMNadTzO+BBCIwhSq716MHfXDm94MXwAEY tnSt2/b0zzpNu7LzYFTk 6EllHmpAEekwtMaow48wy/IDVgSjEQBqlIHyzJzrR1fVqV1ONo92UVl4jRtK2ZUAegYCbMHRyfge12/M NAY/pI5G7qYHBaIHrnAE +cafn7+lb2JAdRIljQLIAB1UrXkyAW2i48eo1DjErQOR691D2SvtTJUNBLdnCA8xPUOMWmb1YiOctVCi 0MqAG9EWc04ZroTkpTSR 6W/vd01rPmqVdm37XuqnKYZ9wfHd9n/lDky9DGWUofHp6XW7jfYC2xMng2xcFilVUJHb0KSUqDdvNba0 bzvleoX8Co0gcTtip23Q c0rNCINRIj6P/m9rD80rGOXSWfAaJboBbgTR8x++qij5fudbsWiW9CfzDdELEiWJXXfNLXqbVKTjoDKb QLWTZgIiMUPf//9dxXrG gy2//piv4Z1C7OXrdtqNHv5spxV9rBXmR3erlvHF1h9xzTIFSq+/49BkNfLQg6hvOiVEKpRrgJ77TUGQ eB2jRgru21+wJ9DT0YKi dBtBKpYLu2XPK3znnaznyk7aBcHrmBMyEpisvvuoc7UMC+Ex+QXiX7/g+mI6OYlDNyTcZgK1MVLJ3bqO hhvVptVvwwaKp9l5dolx Jx75TKEw5/K5NCnV0pDWXaBxfZkc+bC2GKL1MhUdcSQ3PlRxOSq50lXbUktD559dKr4f64kAyZcDRCsh G4wOnNGg1PKtKCB3HqaO eUqVdQexwwdOlRuddeZO/PLacGvjm3NkvF2LaDcOWXQh1+wDVGRyilFxSkR7JvpsrYWketvUfVOgYY1/ PhxGd+qPvCix4txAkVb3 vkwni9CyOcFmBATKefcph+EY55rM1KHYDCkOlgesOmikilJyW7RHXirLjBMfimsBDUsHUVkAZuyiqx0w NG/n82AnmeENw7guYl+c bO1bWjYXdDyKGL128rRDlOJPEg1RQkYdmBGr+7jcfaIyqAByo2QqXnvhP/525SZ0fu7qNuJZRhhShPIQ VQ9WSjXWO3KWBkYDt6VL eEOPzz2r+afA4Et445yI9688evED7B5w+7s5i1Ev6haSkoe/yjEoQgKXIlZ7Rs+2OiLHr65lpUYDknX8 wERGTpyqWkZlJCYRCdPn po1Qrxua0dXZUNi8rJf3jWvzIM20lwrS4f5vjoAQYQajSHL0g3ZAnx8d58CGXidEP7TElCGqbg461cPw kSDK2QgA2eY3CRpgsBfW WriwAA/ChCl+MDhwzTsiScoICCAbqhRnSa8+JRx02zWysjgo0/ZaCSHIQZgoQ3trTot1WwYPzD6xKmxC 9VoWJwBi0CKRnqPOzXcm OGwtTr/oAAKDQ+a8vURISbQhSi0U9WcFqoGyILSQ8wkcPxz/mLknXjA8w8+qWEsXzc65far58f2mSfya MHmB12lr6aYeGqAsQsIY Dj+abuaVhCkJbbFVlZWCUeXWLZnOVIDPIWc8Av6z7nhjGlx6lxv7bFf4s8OWHeJlJnY2ez1A3AOYUU7D wz4p6Y1oNxlpun27jUCg kKSZpOmK6rNbovHEtTajkz7jfH1JPnv9JeD07vcIL2/c5fRf+XINiowDLqstzybA6mtEgrABPN1eEu9p mGY/S6GZAHLdKg1KCltb qJlH+eokDvffoex/ktiMAaBpXChW1ZpeaPxrFfPxjZen0k3Q3NZOZiXPZ9GkqzTKOmbRqHwE7+BzLtpo +urFEKYsNdpWimm4g35y hf91549gh9mwe+MkqVKSz/TZMO0TlMRcMXk0JLDnhlR0njrFpKQXQ6N2LR/pkdmPzAoICObi5DGa7oAV DW4zYWF93gOK2dursD4w nMLbVy/gZIyDWm+egtRTVVDyXRX10MaiJW7ztEiJsNjnRYcjkO7+QYRRbAXr0BhnYLNf/wpUByTkJZJE 8xGmmhLD9fUZYuXxIp32 +9XIYbJ//DBFIFhuMoPcBKRlkE0pWyYDizIJXs8epWjeV/PlHLcoIqAl5uUVhf9CLQ4dR5gZ4bYdIMm1 EPMu9KLD+HHWSq7fSXg3 rMrD7RWv/9680g4m8m0hvWEdP7RAVvGH1VE+w+Yw8T6LCPZ4RPvi22SX59dCWYfVWA4+w+O5GIYCJmeZ UiZELRUoTxBtjaq1avOR GQlDifKgtZcDFAyfQj5e68iACi3KGgcdNKFhjLUNKqdnckHeB5mWvUhEIQpq4d5EI2F7XnW0vQ2pHo5x MSh0JcytQg+nurUrUcLl fAXJwtq4B/cijI1Pb6E1jksawb8YOaDNdTzKIKj9EIOX6nLjL/LUMghVyOQaoLX5Xd9o3yjd0Hj4T0qh zREBpRHL1qL6+QWVkxYX 6c8NSrCvjf/UdCU59uffgrRn2hU+NaHS1GtFTJCUjO/WFu16JYmdEIGzjM4Hq77EZ8UDC377iyNL0zR0 MFyFS6mxPepc11VzuPc+ nVQ4OFEYEuH1dHYK1rk/RdLH4XPblZuAd+eTQ89+IB8N03wUTboiRq67Fckrt76CEERXjAKlt6SJTqVf xBOThhZpKReRjdSNc1Qz 4WGhdGvew/Xyi0dUW534MUcWCqkAVtirmRRmWiiGXw0JJAzAv4Qa1sZHtmv+8yw8kbV5D21M7FiAhVyR 0DlsReykwAO4VcX7+bNk 36GyY/fDVuIM2XOftotwTZ58w/6ZbrvqdEUd+5aWWnUsZesOReWuiVw0WPhuWi/lk4nZX/yAJB9kZ9lF 3h7CjSM8o9xg6SZIoMjR NgtQ3PrDBBdTUSnmBcsCq1tWAws5EcrHkFBHSzI02DRruBmpv54i301n2o/milK0NALZqK0RwTFT5cuZ plRs9rZgTcNkzF5qGWaX 9s6BUeDIc+iv7VRs/FNNHXtFrp0+hz6fGT/ILBiKKzyzYGqQ24QHvh5IEOLVOAUxz6+gQEUEhIgKuYwU IHwDUmhIN6LDqZxYzdYA v43lnR/ak5x8MUGEWdEtp9B8ZZ8/FIZIb2VsOrFLQF6GMPnX02G2AtcbNmBGbWm+z8p/eGXkjZ8XW9/K xKaTX6m23pF/o7VlxFal uRHuAuLyXcMHDhQ+ZeIu7pXIz48SBpZZVBiJZeknibjd8Mhb+X+goLjktcGmJCWNER1eWe06blBEodKB 5pp63ArQeSk1/kPg+U4d 3E7zAcN+LhLdM/zp0DodEhQk4EXMz6/1DC5r+5YrqtrPMSLN1bjem8ggQCQ4sgL6U+ierP15ENKkjBLT JOvgEns/Mvxbk4Tb5bqd siPZtBsiX0DOheqNAdOiYyCZw1bVki/XEJHzsRRTOFgeuPtObR+vEp8Y8pccGcfaTTkOkfPVvcbuoHE2 YQVtcHmNyJsrjSR0070P s7NpEttGmSk6K7L6MNHhcikRYsgyBdqcPy8CQafK1hfbBEj8CbTevFTgaiRDLSJS8jk2QCNyiEEPDZiA XLftsNAtqy2FKBgEDBnT ZlpIOTj2nRzNUfGxUyNAyEZzkiHOfhbynnnRfF5Ja1rCUhnUv2DFb+G3hSzNLE4W977F4ZK3cgazj0Ve JV2lEz8FZ/gcHp2WXSoC RggMDbQaIYjiFQ3kVhDimqAE6cqFiPNbVE/25Ke9wznCMq5jjcEw9MEcMRlmzWgzizPzqDgulKjnMJ7k Gne8t4+VSH3NC66uRD0j 9BoYqOJCeHaVysvFbDmIeb5Bgm8/q0G5s2JQC0bILfPPfdV3SxrLTK+OwRUjsakMM3c4zc/H1qVwmrIY PqekyKMNltJnhp44layR x/Q7M5OkYQ0CzssFAEDxTcrJSK5CLwLdHuHeeaxwQ4SMdZDVjsmdMh05IZ+nnsrhQnLURXBB7IQUh7OQ Rj/bQDXyKgXCNKPaEi35 mlcJ4aAqdtVEn7uxApM7JQvSGWtzterMVGZECfAm3DZB8u9vPe7XgFlCCJCkNQ8b+D+yiPyPqNV0MlRa QeNqT2qKNoZTtTF2yQRd lS/uYyV1J0+yvqTXj6xtOBb3R91DTGoW6MImYt1g+vn70/p8r0VcDbllKFHcxxJcmH0gCbQLEqG41IFo u6vuHmBZyBxX9R/rATi4 j6DFtUpM82Jb5Hy71cOqemreaeE/N358Bif/VbgK20m65BfmPzB9I0RBtgfWnAIXvKIGvWUFGyUW7c9t qWXFJlEbvWQtOCfDA4Mj zZdpp8/LLQhBy3DZINWDf/A8L1HpFL3jaLj7OSg0jxDgiACWSSne3usj1Q9TfiiG8E/5g/rS7Bz5Fnbv 7nh7c4rNB9eTwGg2MVoh Xd3VKPZi45Xjsm7FI/JHamvbljWKmbHFS6h7S3kVKXUbO42ySMzMP0oku5QdLoN7dJPtkMd7NDD/AELE CZfMWjQIOUj+t8WMpNAB dTyLZte6PK0Fxrvfyf0IS9y1YZNQMhYaz7YjlQsQm9bMkucPNceJMct8zs8hA5t+Dc6/WIujac8wNkVQ 703k+vzF8vs8YVDGs9pz +854MefYEhE6QUdFakXqFVSYWnmzlkaIAL2urSM0PY+iqjbQ7UfT0xfCcBcRG++PB0/dsdMjAkV88aLR +GFM9AHaOd3WLMkjCOAF jR4meiXOHiL4QXGB5KMJyh3IUBmhntLgiAkT1IyVT9rODteo1YrxtK+HsDPFaEPWAZuQP8FgeisikdHA tKOv+WL7AWvTRqYkXWaL cuOWself0XPpWjcIaRHOoEmUWSAASFj3WeFZVE0FjTkCEzFgi/GOUpG5hIRsCroVObsYsDewfeDrgCQH qOf27CGSfKR3NO4ewSWV Jp7xk+z3JXDKe4XAtM7nFDq/krGoxWfEH+JUCWjWwjjJ3+vgwYkrkEKNpMhi7+kLCFEUoVASElOobtGm 2Hto03gknxQbtTVfSHS/ faKwDG4o3+IckGoU87abiuhK9VGgOa1eLeGmlAg1+Esdras+iodhUdFefPVzZDukU0R7YaBfh+xQoqJARJ7 lv0JrdXigHdwsKsWT+6h do/ZaWoonumkax0HHdQumRont73DG0vHdJ6l7MDZjw8MjdBeDIYYiIsuTNTeV4W+8g/AIo4aciDusZpT uvKhef2WR0Wvq/tp29eG y+GAJj0XELt9AQ6JSB/sYSBzTju1kTXUiBf/2CULQa7N+pUrBYURErwjVuTMdfrWyvnaFHS8Ix+MrJQ+ MdqgkH91ru7i5Oxaoveu ryBJ3FpreLcDB+b9SyBGsdrkdC17HRF1zj+/bA4yD7yjS06jTJKf8oNQ6yZ3tmTUPOuQBQtBT5l26pon mFX0m2BEVVs7YfwFyOoH qMv17j7n7HfYnAtCVOImDb+0Fs6jWhYOChcau3gWrKgEOBJPJM/zHtL7r+ztbNKnmqge0vYZkRug72kc 6hsvYP3Cp7yHArHMF4L5 S7+DcEO5si6v48jlAI9uyua3YudBRFRver9yrOzyUY67EvFtCKOUat8gilK+ZfSMwZpkMppTQrCK5gSW NRJgQo2t8FCF/+U+xkmP 4DIxZdGKJ3+RJf6rdPp4iXBVDpGezz65limPVsLz8ORkkuVjPoosMBlprT3QQSOEnpGrgcZGS9tkz+INDONESIAN sTpiMBGRojpg3peCuOD9 5F551eOZ6enCyONqmXseeEZ4OewNNAAxCJWCP2AiLiAyEsS48WT001UH8hFjvUuW7rKoTv5xfHHh+RPW IAw+JUgFEm054/T5Mnmg CZtt3eJSdc/bxBlBgVRpn+KdMpLVvMOhHPQNat7mht89rlxOCku9bu9abHzobXNxUWJKDsyfKssldsJX ShxzqW54SXMDWLcCSozB jSGyExDXvRH8RJjb5FPbDSFwZlZI0BOXWTI4CbxY7JeiaPc2Nh3g2UaEaPdECIIrBj+xWEAGDcAuG61t gRdXjR634GK8bzSK8Ptx ZhNIAHKoWQHhKapRvfZ8pACmJRTwrncDzoi4piC11hAFCPpD6Dj4VO4b6Q8yxIdI3hdQvmjU/mMholzg QGVAxc7Yc1FQMNQVjLcn oMXVTx8kQRr5m7vIhvbZzZ5uMqy01FaDYk8qrh3KOz+DXezbvsu9QoAJr+DIqqFSXhYGCWnpVOoqIBT5 Fh2iWs32RgF/zOCStZrQ kfycXUUlhVMmnkX4BKmpHsqkx6FgE4+3UqL64lUoyUWk9WaXbwL8Mr0Do1mSDIwyL2uX3SRBcoz9ECDa uhCcE9m9IxNiyEFinMAb XuBSCVEsL9xiU1+hcK1ppeImo88HoFQM44txh1zwgvCYJnaDymewDoLjaKMdzyUR3qsryDjsXI0cnC4E 5H7scmII6suTx//mlb07 fxiNbAbgU1PpBped0TG3aTOOq1z7S3jQamwutQUbV7/pMoqhA9wgIN3MMLuLUV6S6EE/m4TH806zATFU mSa1TO0c8oG70OxQGOO1 SuWErmBdyJmUVFaB6VTR4em3rsNhS3HVcpkoo5g0JpaPoLbVPlsrr80XDZIr5PhzD0XUDv8n9OShZgp0 Ny5k+rUqUMVb+tGN09+T 9neHQYB7m+yz7rwpX/LyX9mdw3KxcpEZPTpSUBiQqpirp/VzGaw7essXk2OHpwebegCVuGi9TUn/OnLZ ORQIsL0fp/Yg7dZHrEt5 Yfo5SxusR4aM91NBzx0oZ6/2P7xgJEFxEoLiYRrC+hN9rQs0F1ecpbVR4xbzqqCzEiB/oNO0gjPE+jkh j6f9270BO76DP5LVXnrC iBMgeHTTz+dianne+++kmww8QlnneK1ZBtG7jejHHaDi5FfLZ5CJq4bnb55ceEPz34AyKOzqx1DSiMiqkvCE M3EUkcyprdN96htC0pyC cFUvzHvUJ6GqGFO5O9vQ+K1w+UPkNMnDz933+hQ6jc0sVfhrP6ql6lMul9eNpT3XBFurUs1xmBncfPRD f8NIlQMCP1msscLOuMZI JNkZN15qHNpM3KORj6rNT74bwyomXYXJyIxbJSdEgz22a0xfenX0R+YbhMgqIVRjA1/fyFMgikwJFzW9 KV7x0Fz/obEPl5Yv3sgj oqxVadSUmOcDwEe5PnyIXTHS5EZBHSJAP6ELd+AcnWag1VRm5FOHYqo8GK922G08BAD66j7zj+8CBnpy WQIDanZ/F0qcgxXHyDOk FxiEReVsCJfolsOe1Hna1yksUhxpMndjGKQroLj/y2pN9Pwx1jMSHOSdWyMHt7+aMl7aZtg8UWcSi+7Y X9BUdsNL12OvvoqFzCsm AQ2wUOuHc2/en9eu0oNAj5K8uC9oXM0z3x9sB+frVtDWJzXJisDeiAzW2DRlxSDefDWo0muyTsBFVQgJ atNu2FUMAqY1IIIDlGNZ n+5XeR/TikzmA+Ak73sHgVTdHM33m/uPNO0B7IfbWIu/HqWCFSYVtFrZnvkfAhs291A5hErWQRpL2QqP KIKQJxZD1GRwvyITHyXv WVR1MSBjvSfTPvyb35GAqUq5o3Sp4ZcTNgbjw6DYFHSggD4P0W7DSgxkxcxAoIDOwAzLgOhg7Tsdn6+J eJS/GjqRJVIUPI/I6nu6 t5E9r0TMUrtIYl7953uwIkUJlZjTdwHIGXwz5SGNqizGvYPhmiLCJZ7hqB2c0kozfc+gZQgtCVQsmRJu WWYggBrIEyBAUubVKtWT qjyzucVtcHEXry4htoEkV5LFQ43mUwQDUwXNC8uvMUai8gL+JlQiy1qFXXBFODlPvDYGUO9jJbC8Pwks dZ+K/zCxFwVvTp0Yle+R wT8qOx/V6BLv2iSPzRW8pKfHq+xxRcQ/cXw3XPeZnd3d7xOon81ILH6PfIhHZveRmucpNhlvmdl4WYl4 K/94gPWLK85TQ9nmfDKP RYgTIFCm/RGdBtAsU+/XNswWqMaPkF1v0Lte/mctrc7pl19sYeZulxQec3asjCevJBe4z+JWaWL/0PCK Csjjc4/NYDS//gw5Kyfx Gk92dzaxlXpaDRUleJ+kDj+Mh8cZ+E2nRVXa+/3X5dHiG0MaD54qlLL0kWVFe/0lWlu3w8s/6gYSnzpC UpbvVLG8+uJVTX4U1tbE YBhwW2BuNJaTgVrW4uM9F0BvFSDhFuZfFJVa0K+pmRlKpbNk7NQ2G015ZKJqa4UwNRQLp8gVOEmGAc2F ngtdECSVCfCTjfIIo78S 2S1y8x4ccZxR2QU3uLgEXkfDm2O1iGZ2WVWQ6T8lHCGlrSXDleNyuec6xOx43aAUlREqM6gu0JapRBdd X4Rn+gfQPGnjtuER/Pmz rQNBRkPKCPEGhK2cuDZbucjfU60QXDXIhKnnirh6uIvm7URfODaItuVuTjtEdaFqOpxNAXAQOMLLe9B3 IrA3tDPNbO5SgxCJHn/S unSBNiqCWRR+cksKBcW4uphiJT/MSczKLcPmB5SUADVkQi5WUrpfN9yzScCmm8zRCoASnEVDGwa0ReMx EHOlHlRBObRU3FNwY+aN Bo5WSOwvACXEEQ61wRMEyPvYH2OOqG9JSRqzKdQGSOS4XcnsL4tbDklghzeyF7geFPuNhXHc1uKIUt4U cpMbVT938yxOpY45pQta 1ExZMRfIOOVYUTdmxKt/ZSoRBmimUIzmLmCqFgpom+TG65iuEtckFGkBv+eWMnEs9uI+p75mWf6ctBMV g5C8FGG9iKQ6KBBe17Hb DKlBkmiLkdLxXQj0LxDU4SkVv7ty9EKPcbRrsZ8Wb70XTNSuzxniXarvlbDHKEzUkXNTBUFX+qFHJswi 2KaeBLcur4yMaEquB5VN G+uIL/BJTApnOrP4k2QW40r+t3dQIwF1XDcDyL/W+EBvY253FeUg23vBHl6y7PKi6KwwoAMW8HH4bmXL 3r9OkZiZi/Is8RBt6fOR xgRLJV0PICkqaOCUEANwH7SdyIXYhJzCKzGEFhngUmaDKUWCSlEBPh1cjTXLbrhVlbcGGYQmsR4VKMk9 PHGaJJHkclMvxRTeF8wC /YtMrb/HGXYa3X5YeSFSH6RMf0Lqf4lEkW0fwgJcgjH3JtqF1yOXDkD84KglLlcTvKTj+a+kDCiO/qQX +2IQEw9qTbUvLXjQeBhJ HS20nNT3OyvRvGO8+wpMj5+l6t9SUbgMuc27CF/zj7SYisSIjmBieTJt9qDkc+6MDf2SfqIHRL9F4XII ksJKiSEQTLReVGh/y6Ex bt0obvx4K4M5U0cirJg8RAbobRggKcaA0rGJYG2pi0LzXwxCDg3hqaOG9DXCSJDk2UarS4ZBk0bsVE5b o3nfREMxW/nL0R/HbflD DcPR64gva3Pdks8GKJqRRCQTEh7girhxlXbnrIld6pIrECLBdNwGiOQa8NNQHtr3AjS3TfZZR7pDUhqV Dpg/4qI+MAgolChfYRFE k59VAXzLRGXyJODh2NuGTm+TOzjm77vinIOIdwCxG2BwNR1+Omnn+jPP/+VJkrzlTSBhAV0yuPgkw43B LaDSYxFdvVruvyEk1SNJ cUUAC361uX0HdRfI+kUFNpQcnqZ5kpIOHLprdf1QjuwpEC+JaxWiryuFBkftYXHIPq1vzbfePPNjWxyE Bg1ZcKh35wHfCzPjWzeS apYQhHKaC9m5xhXotUtXbT+Z6uDPzpDiPBOYlT5is77emlL3b403I211WYSDQdoR+KRMVBNTEVEtqmsT rC4fxKWmXclX4nuIaUdz PSLMOnV6cWYEUghqaz683CBPS+QjePXSRmy1CzCQBlFTCGd8ILDFukLmtPTQ19/5yn3i9a106ONlL2+4 15abAjOch8aInQv4rOu1 Kw9gXGEtbSTZh0SISK8s3nfNRNFL3UsC8cHpOYeYdIGZUJg5shoqy/0M8OTQYiwMTCJ084nF3gJ43+/r UIWIqNN+DBn5Xlnyt0zG tOmTZN+lZB2dYfXnK3eBkRkJduen+uuu+qLEwc3DwDYoPRJOgkkK8nQM9Jae8HYQPmCPIMdrWJSoAy7z javpGrVqtS+fXsaPHgwC u2MemHLlWUPfjZYEhIcRXUbsZPTHAGlDPUSABIFuqNZm3RYoyZYm/tGMoLWPMdRF7tVVJmDGQ0PUjPmG IbxCRYgDMMwjE+wAGEYh sP2xdIGjyHH3sBwURyKAIhnOCEOTXrA+HLYARLhKUQkRAiZb2VMDZR+/PvyPmMeSYeOt4otoSH8iSUx/ A2M0unFNArsuFLMVeTJR UXFixenrKws+WOzg2cK3aJZe3frb25s889roru40dxje2SHB32JZulwmMKPuqEkXvMQiSVMlUk8pGTGk tSzZ0+cJXPDNl3m+ROPB Ljph89H62imJe5rx2kY8qRVjIpyKaBi1SRIJuXpk1qsrwioyWrMtjlYob4ZP0+evvjiC/7SG/Hy1gPGF 3PxQ9SLMayrHd51mVmhx wkPYD31sIg+/zrmcndkoyjoRrhP27pNm/vvv1+GGSa/7eC0UBg4r5wr922RBRNHPLyNq2pOvBknFLRQv Fqd7rHEYMs/EytWrKDu3 luME9Hhx9/+mSpWrCjDjvjvf/4Vri78nZABYXrOEi/sdGjZo0StPT60Ji9lnEFOn00UeKAEr9UvVHqOQ 3VgjKz1GS39mAYk6ROz+ tuFEl5LV7j83Fbvdb/+jX93tkK1tXIjVkkhpBdU9tBZw1KXeIboc2P13sTD6oxGIvBHGPQaZ7i8COIdx orGyaQbeiffe2czQqnuJ YQMwXJVlm41xEWpJVrJRE24ArcGGIVwhwKhloTTCf1l+GaD4s1Q316Ts0wqV9HLoXTTcYFrkjcTPklW2 OrRowfVrVtXhUiOh/g65 ngraB4HHbQQeQusQWxnZX+++KLyuQcvFrSPm2++YhZNqQer66/jev/9/iVSoNaQ82oBWnNkQaCSWMae9 VTIO95++33lI8zUeaSqP cw/q4yP3Uh174PaaOjCwy6hRnoCXTRzuXrylPfF69x9zHXMK9jUrANMNgupxnneorrlfJ3qr5BsWeTLV ETYzH/UH9eFhKNPhLUOg 347boIrd1KeZToOZPOJlcCk504E84VJ1DdCS+/bt0+OxyAd+nypDLiKpLyT4ZGjDeY3Fbje05XBrHWQJ 5RPek8dKhWpIRxGvpPCp TJlpMN+3Buc63//+699p8gwHsr0SG+BWi4gTZXJKCpYOrhFaBLPJKw4aFNBds4ddd+NKqAq2V621EKOt HHk9azlYfoGvPq45LF94 eixVG7larYRvpszo4+tUrgHx+Ie4jfg/tpNFpv0vAXSWrXQnr58MvY1n0SHjI/4t9io1wU3W/7880+aM cYUTUn7CEGkl1097Qq02 wpfCJzrvIqijeowjFQDxXszE89TdZcwJlCpW2zpkMI5C4fGx7vyvGGcgoeS2MTw/fXXX/VIhLcTD39YT GccVRjEOAFfZ8JM1rZYS 0p6SKxvuvRDK74xksnqr1/UoTAGXBt1tLgbtjht8iFogg38xbQh9aKta1umrzFdUP21TOA5n4qh8GWDg 0mTuZesUe77Uzx5ahU9V ry0bGTARKT0jT/mk63kXMzcwEhSBh0GD+E9wfuN+46d0oTmiueXE2cj2oJsPZsJxvZb+lzw8AWZFM9wB aVwgXgpvUKcDAJH+sWJp F+9RqQjhJcZnX800qv8iDXaFO2OdXs6i5hNO81mzNnoQRwpP94qqyzFm3IhoHwLWlOvyQVDNvCuK04v4 s6jllcFRe879ezKcyAFn Jqu2FQIt4ytezt27omlnjQgM1++6soWQEPICTW0sxmbIhMa+++/R4pMAXYh2ZqkcEtwmuO6TD+kdLg+I axs+0OyOFu5PxOhxY9XF GPOvxQxzSChbEEiZKZOrBoOLFPOrOpPXTUCVTel8WXKxofHOSrmTl8h3n//fePGG2+B8pimr15u5ckUk OKwZIKD1RBPKviISViK8 ou4ajrwhM5l6W2bX1Z4AwDZFs1R6iUt5z4CTGKa45jorJLymv5HnyMBN/gZIPOJQ5JqBUoQbYDnAKH36 cGhD8qxgitzPX6EB6727 xQHQnLou6vKh7ONdBWVWWXa30574h4JZWJFGLhTz7/9Xoj9187nFTdgOkCiB/CmVUWEkDb5omr+33nnH Vu5e+AKM9Vf02woBqWd4 j966IujxkZ/e/Lesem7QlbaESgclUJKkmZu41Alv/wTXKs1vVzHEwc65ZfhYZltLOMezwpMZLzLK338f uQSPhVd5qLUcjVwwNUf9 T2ffNk78+8PR1n165mamx/ViYa/8fjjj1/3fiHWrfOZ7XUGSWTtNry2jjRAObHgRDfZj1z/LFkUj3FDC GCA9P/+++85jvVUgGiee +8011V4Fs5GDlY89eULMyayofeKkBrLVhIa596dF0Yy6bYgc73qYjg0XSHTRiUJQ/aLlp+KuRrRwpdpR NgDdiKZf5JRVIiDwhrBj stpbryKneTnSHtMCdwp5vofMNGDLrDLfrNa7a9nKhdhi2nRfhPOWi4Dfu2J6nDFNayvgsGpY1mJUPLtD v795PWXUxXQLPqqQf8Za m8Dzlb0835kBkoamh74dEJv69URODquOVzfsSAPQdqcEbSOWj/f2whcrphd6vXqhg8/NZf7oXqdqC53c viDcTwIYcBReFy0ugj73 hRXeQeScGFtJO4q7feAhisCIHIkF7b1yiHXelJ9zfAHOKkQc69wqOqmsPrmalI2PjZwudxLcYZXOwyIe Avdplv5gn2ZQF/XHUgnV NnYec0ZYGbUkHHqfpYbaciuykfHlDTcC8fwLT/x8Ep2652X7Eb7y2CAqZE2z5H6Bkem9Coxa37VOGGQy QrVZcuWqdirQQvNERA8+ tjGKDmzovmuN07bu7bZ5VaBuSayaBEx8P9cA7vk0bcsdzlcS6CEHkoADs9evekOwl4c60uGKrpG40MQW kCutCaANMjPk/fy448/t k6nehq11Wqs36/axWge3li1sSTmiMIIwoXVOzoakXlyYAvcKQ2PYoFCzAEU+EJae/E2jI6hd/ToIeMcg R4ZR/m4w+bn0VYGKF4Af J7aVLQeKkaeBEcoK92uWfPduRn78St6Z4ssMiBuwTK1xhPWrvMGDduzfueBJvP2zu3k+d3tW34yrMSe0 H6TbVFDjuL37T6uvnPek +ymVgijou0VcqiBLd+qvAp9SSSUX1u0aTOWGhQN/bAB2a6Ag7dRvhCtrMBqZq2hgZqVXfjL3BavSLp8h Zww1trHW77j4hg53Ps6+ vYnBr1v2lvH0j58c+IZ6481X1omogeAfmZcD+euwkcad+n0slTUFPgs9W0ajhqlZl2z33VThwuJg4Kmk b++9591xjIImg0i1gaLH b9ll8ZCew9D235mG3a9jIKpeIBci7mPws06QFO6XowDjCn0LhbF3alITDAaqDyq2Ah6ZdIca/112wXCO ypBct27RZZ6POMZ2pqLr bNCGDebZOWX6o5O/7Is0MydtQrsKh1HypFd1iWvar7S9RuktkEAWVRGoPvuW1ZH6lqIGfG8t4kSIWY4d 5cQ/eD6N+G+tCj28ptjK XBJ1zwoPKE9WMrksci59g+5xIZTQ5OqZZW3NdTvOd3ubJBujLERysUOIQHb8VBaBdpSOAqtrml75o3c2 bCWYWaef08+MqV3I358O +pDL0rl2VmyhWiq20h4u7WZkhS86hrikTIk3/F3msp9VNsH3AWOdpY5DsdVFILKzdXbMrl4ATJAyFwvd ewLXpvxOmLEiBHKZ/Yesenia 26lJbnp36+TZz4vLb7E4048ctSAVRWAS32YMj1Av8HKErrNMKGcMx9fM709acSoZSScLy4hr+uAVYivf BrncwWUfwd6plcO43TbG JKRrg7u4FFMtpIA56fiuCkQs3vt86s0t+AmiSGDZE8mCky/N0FUnQ9DviITS4YRU6a2x4dJIg/YW1D5g xexIx21dacElWmXgCf8a QDMEY0hVVTKFpZnbfTGfXpt+/NE7YrQRTBVwtVho5VLrxGrBjEKJxyCruc5528deLnO1yb9y0v JKFU2u2uT196Bbjv8+z+ 2zQLtpjMnZNNuxBMSYdBOOEFhaPkzwL7LCQZfvyjbE2sQ9UFsDOwIKG/ehz9uvVOb0oZbqN8IQC6O6YF FpUyme+JL306HQFSUY1R VRDTq6Fn3t67vohOw1nZqP0xqAmvJexqixSJj54S0bTpm7IqjFFsnfAnCVNlVgpJan/Th3ZrxwSOCiL9 PR6FzH5zy0pjyEPlz7KF 1S+rVovy9BQ1+bNSWjbKkTStNdbYHJt/T1Cu1U+62QaLf468JOBjFtNRbcEobNrkqif9jNV1jZDVIJ3N YZMQZVQ3qMk5ZW21bOUr wKQa7tFvVdQyxVnjkPOP2/AAlMRR9hvhaCPbZirAxtOMNabnA97C9+2pWGe6uBqZyqaeycNELmhzQNt2 YXDhw/YlNC3dSWddU5XY RCVzXhbBLYNfYsJXpFwE4srIIqk9ClpFw5e0jn7u19iO7DLZee8nOiGRB7O0v0v4qkOjbmiQONxGP5qs C379+5Prnd6icSAxaayC RnYauC7htv3IrIOwr6mdQYY+ssZxq6Wob1hESNc9iT03ffsjgKrGYQPuVJ82acdgW3Ff3jdzlPxY91pp HVh4pN4c4NIdh/kmQDBi xUYiTF9gslCeZOMit3eGxnmnPryS3370ajPKNLH+nM9ERgPrraXWUZ45RG3uGciM5tcfu7STA8tPryLF NJQBzlS7wZAmECmAebxG GQon+klL6oD51sh6xUTjTeKyZfJfOgpKFaj9dMddxq46E7qX/hQpuTRsmvG2z0iT217y/L2F3fLwQZYA c2+Y1iKpbf1JtQn5JUU4 bHkjve1ZkvkVOfYQo6VkGo2rH0R8Gd9mxr8sTq57u6lDEf1NrnUwgtMVJABazWSTr+4bJplvHEX4KdV9 V6T0HmZi1hZ1q7q7SO10 lwraV0aprVExInmVlGRTHGnRt3dLR68pZFRhbCIyZFBdpbm+ROSyagGkHF6vLxQHhW3IvddbbhlgD6wH UAHcXaQI1YhrKHWrY5Ul Jp68BYufvjlwyVV8x5wa0b+Qe3fYB5900zh+lgcQqxyMKCGlY3E3SWEWUEUT4qabUHXsLYerfPpRYORn avwh1FeeDs/jTPtBasva LkQmr710gpJB2no6X2o30neDthulAcQ5iaxws0JbJiEKPSFBcEgeAkahFC3TKwhr/wMtCWtIUEqf/jhh 9IPctOyQTeRrqjRrQXJD 5prD6NleQIwemEJh6USgwZuWWa+u4SSzMKVQFMZ2j3UspLmIWS/byMhpRQ1pwjWIMnIqVsglDrNeo0x8 7XlNfYNJuvAqbflCddpb CfrMgYYW6BGJWa4dAc6xjYO3Hw3dm0ekwvYbPJ4059nvx1NUig/o0Ff/jRARbUdoMfPXJYZUkhE7NCSb Kt6KfJEcr5SKTpiGF0WN 8115NIpVHYnqv5pA0vM3xPzuCiFHeNgCtDcyFY6zD14/NTenPwTZrwwaXWG/FEP8AaBqbNoEBa6Cl0sS K3f79UbKokaalUMIpYCN v4CjZ4QUzKk5vbFKrmXEkt0mB4MI9Huwz41mjan8wzcMWIqjExkGfVhsfh1LdAizLdrPFAs0vnhn8mUF xrS3MzJW2eagDH9HsFDB aDREYyvgq3ImzJsowPDIDwOEXsNIIsEgV2Ke81hESeegta7iYuDxDXEluq0VpXPqB6b83MaXP8YkqeVo 6X4ZXBxp/OodpgRbP2Lj N79UIJC+zeqU0vBAUmgt6c3Fh832ZK4YcZz8KxGvHSPRrSSK3Wo4aFSEKCxmytHkAKi3IerFjgr+ySwz GYgeQozxJtEuDcud20UK QuR69U8ZqEWu7in7vdkdXKJZm7lvddnjjTnNI4SlGHvOoYfqIbk9ouDsRP+swBVVqov06hWIxThw5NmB 87RT8PUr8Ap13UMgiK6i /322+XW09+WdBrpvYhSAj6W1vf/7AiRkfkeZjRA5G4zwMEMv1/ZYzXT9/ShLzmx5u6Sao3kDtzi1Noba AjbffB9T4/We+DJ/Uevi PIsn0d70VvG2pcvpubTo++6102whn98DbR3Uv5CLzXmwRmX7bvd4eskr/uDkGc77FLBTZ6Jm8L42uXLc FPMrA0EPmG3MOqrS3aSe VBXOjvTvonELCBBC6PJnhRs+LqM8evbXconN1DfygXdzkdYEMGlv5LJPHuqV3gZzcIezPsXxtc5Q0Otx GgUb1GJGw93NMyE03sYV tzPnbj8hlcmCY64iHSwW4RF6sahjm2DtDsyFAza0VudvNfVEeYYpMmGoyip51eySlcFr8/z69EgjIwtI d9g3c2zvsesLORoNnEXM gb00BRAcmzjZIKw0jGm1QO9kF5745bm4UEbtQBB68a83VyD7xCf889oQJBNFNQDPi6QggO1WlVXiWhtB wzodcFckdcaiNcCRC+ei PpEnvN5WjzBN6QZH0oNFz0WR+/1sa+82toJyQ2GdNBrX1Z+UG4VjDPpI0TtyUdqabQkhrIN0SmB2jHFX IOnIfBBwB2S+sGC1968N vw+eF0o4xNWjBN2p6hkMORm4PEi5bS5VNhZ74ts5+7KrCrnXP8nLRpqiaFNQUw5qss6ckXxoZzK1+KqU KGCV/xKj4mxese7hVqHH GkSSkcC5nKseUssODsuEUmcH6hT8ovDfUErRX2zuXrq7r1qXujiJQ3EfgogOfNoKwPqD6y5zdu5P46f9 kOjsY5zLDlXEF5tOzXpE EYYD8B+wUD0+1HL9NskEejN1cuVwOUWDUcIh/Ja89IO/a/k7jRctzN6gwRy9t+HM9eeqH4NKOdly3pF3 H3SDGkDh4t5VuTG3F1LN +X8v490lYSFmZJKoeZbX5n///8himEO0ISHP+Q6N8tcMtMtf/nqABxBCcvNsafOxHd3h1QACuiggfUeA r4owSZThIK44ln+4j7qF 0VsvDSrkkUExn9Do4okWJGyIoui8TJmVoKQVA4CcKeeaYllUPr4B1qr3llZHsdLdWTC6P6aHR1qqWEy5 Ev1NaQinxXAeh527QZsD 2iiBN885hUALtXgK47pxcNoHKxB0SuAM5fn2smpHcCm5Y+usNlNBiPqfUB0p0B4itaANtq35KZ+gxVr3 UfXKl6s56PjO34NN9JJ1 Mj4JSSChwHKut0ZxgOSsu7I2iU5FLslbjpgbvUnIM+W9o1t9Cnn6YKXOIIlZIrIiMJ9fNnEJsJzCXEn2 2xxw5Yec6aZbpRrNqim7 tXMVRPWK7VPGItZNyKVkUOVOc+RechPUCVEzrSTBbVJcx1g7XxNPTXidVeGXSDkIQgvr2FGvNINS1H9Z Fs6dESEqLCHqrYFCubZK GfUAI03HKhfNDUlCEToWb1QAyhafIfyciGPNRY4rUCmWUSEffuzw0cfQysnE+qNS9o4BV7n3V+Ia0D/M Ivf7XhY45mQr8F4Iz8fC VHUr9YqcS/vacxGalTuY5Q79TgtkxgB7knyQVecV+4f+qxFK05+SThx6mthOGZiVw3jOlpbjIJvZ+sbx KW9hOAj1AvWZnfq7ksYQ kzzCbv67enk8dEcJbo1h5LXg5QTCSc/ny1Ad0Y+ZV74wSqUO7QduDq8a+GCALauxV3PlWMNBj27+xpMn OQDdFKJPjdPaPgVw258y xQiDRpNfWqf1hGsto0qJTjVLXWuY1sBli/JzR5oFrxNutS+qScsj3jXexPss3fyuIRFufn3//770hQYH 9CH77FZmssQMRXcLfG/G d7u2uU8g5aM9BZnoCXdpCA46/falFSB49EbwEti07y7mqL3bKXKeApCgpEk73CfnC13gMgyNu+X7YGJN qlyQWVdmvclo3MrKHl2U yhxUtIbepKMkMoU6bH+1wVshEbsd5/zVrbgBoFiRLIxPFFwHTd6ONW+U3DsjEkBssC8DmcQpxOLKtTcM BCGYRjm+oEFCMMwDOMTL URQohUMt8UButVCr/sWSzNHRAtUL6hJHPmVAV9TYcFkEQvuWVGcPDRrlI+bZVBDjbP9fgNJehFD6bVsP BiGYRifYAHCMAzD+AQLE UFmGKXdZMVhOTSgFnBSvULDgiHTOyLZllOJZ2PHYZbLFUuGRIcHEInzXtjBGPBePD5lVeLaXLF5TGvEi oGCiqf1AnNoyWOA+fn5k b+/u2bmP6AUDoyVccifoWZSnGXVjjSPrtbFc4pQGrgY8p9eapPlbiq3xnep2bJVO5vsB2zib08qcb4A0 9xzD/Ne7sTxRljkPNtoS DOcpze94FH+/FyaT2deQdgSwuTszNsp2Vj5XVtWRJN8JwwIvh1zNp56GIUrt6utaGj11uLZ+bdq1Yp+/ evytoap97+uu2gvc296M t1032073tpoMn2p384/OtbWpa2qGJ5n0kgylb1mHWbB6zk5J1mGlPnuE0sM2pP6jVqFUz8E5+7I4fz/N QUZ1ZRUmGfNKqCJKyWnH YpQoUKFqG/gvmo9N3pK5zhSv8NobZKg02EEns+ugesmwOBjTTrAOOEJakFc75PEM4os9Kjsd7jAnfsys XCRFSnYbznsSy2RQl5OM TsCEJ6veXMUJdV0Qx4AH8anV2uFUMmssgtJRVbYRx+mW2+9CWgQarUe3tLIG7Uvq/sduh4udCcPI+kTM 0eWIUC5+/btjX79+hm9e iNdqH46uHWI3NTCga1BpaQsYWB00+ap0L+VlLr0zm1w6v1587FhifV9BzmFOPBGwHbb060/t2OANK4xK DDQEIJYOoRPnjypUuSkc CKZta2kKE6fD04LxxYiEHwgytIzMCfILl18JAb6V4+VX3/8IrQqYvr2hxSJ5SfHExhvcskQ8pue6kjA1 Cu7q1CFnMIgbDt0NpX2k fvs7+i369qiFviBv2/7PoNOZYhHhsvfY8yZTMmstGWqfwAEjot577vNbtyEGB7sudpDXlciBlsu9yZzT GuArdPsQmPbXewHTc9nT wi9Kfdl9flM18ZlP7ClvnAATAW0pu6dkRkFhBXpE5bY/Si/3fybVNBxJ1/QlLt4vC1NMndsI4j/T58+K xV1bUdGo6wWw6NPfVXc6 aoy/T389UQG0EL2MpBLMIxzVS++KF5UTkRXWEZz7YV5M+PW60cpIo1j+LHHHlMpcvLXX3/RcnxB4mM89 Duzy1pWetecwrqxnpCfj l/Dgf9EuDyIRQcLqb80dBD/4gDNWeXDI0Todv/1k08+UTEmlSpVuurhIPzLL7+taEGYuKIyrj4JHY+PK 00YX803P7mr94PSPtucX UlIpV6iDJ0JM1T67Tq5aAstHGVUhx0yFM0//TJwq1b6BgFVNzoAurqZIoMdB3+oOdSDRaNB5xf56IJFZ bReVotcGyxBhId5CAD3f zaYY255R4YHoWbpXybSDfOC0zTHg5G21CRpQInfIZ25egPdJj9QQYyoq7wHCkWANzAjpQ+h6vWzl2u8S cqt8aawZ2QXVF5Borrsn HX+fxKltURdxKd7yfnLziJDt4V1y6403y1hUp22d8H92Ls6IGSmGGrlF6c0R//8c+SEnVKAz961ZYea6 2+/LQovzlr2byaX10blV qzvHjwC1VHJGjV5vMhol//0aehwe1PCDzmj2kXfSescXNXkjHSojBuaavgSblTS8DvDglpykbRczBPcH LaQpxBsZkLtjAmeAvI83 JPa7KK0iLwgsW/IjMQm7Ym874sE8Q+++bdm2ucIvM8fmICgixpesbEqJogbihJfVlHvVTiywFSotuCk1 hFC7KTaCOvNr41FbIJlN QeNBc/G6aFDhqTDtPWfyeTN/O9//9Oz7KDiWkm5/U6DDR0rL9OcTn/WmBqhVYsiwRBb2Eco15ANLZjUC uSO7lFfz1kgll3++KGxd DfQ8QhWKoKl4mokbNny80eDq7Bbz21iM7nNtceLTKlPZ1SoCPycsTk9oiHyuEjfmRm7NwtNqMQrkl50B qFKD6HZQC+VN2XiC8fAS zWB1naTbdQ0mYJZpxkR5JSBp6K4r1MzPGWiQ+7/+brbNQx6bN/05qsXdSLWSzJ4//62WwKC5d6mckawO aZTloUnICV3VPAnoJlEO Eo302PoBn3fUNWxLY4/WRNO2fuZnCBVo5ggAgfb4saBi1OFDFUQwjet7PApuPKp6x465iCOyiOJA86+z pXzGWDNCnQo32oKe735p 5obZz940quv0OACivGQzDXXwvCseObHx/Iv4lOCHOIPvfLMbt88IPc6ywpbUp+0OrFrDK3A9FAtxbmkg 12e9/7777ftx/VU55qEA SUffguJRrkc8IRWseDqvhtwpZEDRwfBpGIXU4jGQOKCn0vhWJv1+inlTch79nEQit3JRs1hbUXmToTLT pbgQoW2yCQ/d9xW1ITnj giJh9whe4368eDTLl7AyZXDyc9lLkBP91luwPyd4I42gEMxpipHYYczApk8gXuIq+aBzJJF74wqvGAe/ zs9L3MaMCegLZOrnLT52 jsTIKhHsP+NG37KJjNouqQQLLQZKku8NuAGNfHV6eFlnp//fIrIW72IxLJiTytx6o304iW+U+jiOG/wL wICDFNzvLHt0cnjmj8eA ZNV859zbyOfjZgBsv9bzNNHF+7q19CN3s2HEr46QCz8bzXJ//zzzzKsQaWP+LwA+yo1gcHGdObc/LTDS 2yXQBH7Ym8J/kLClCw7a 5wxefJkl/e5SJA9Xag+/Ci5plDGrge1si6pFQxf9p075HflsDHRX9pwFMn9j99fAOLbfnw++ecdXou+R jhUltYGgwaCyNGxAJVm5 86qUpx2txHD7d6yCPT2Q5jYtPnYWnS4MwZaEIZUwHHzpr0ChoZneK/+3z5VClMGZ3Hn707XIFxM87jtf 9xaXf/+/VUqE+u+smXL2 vzQkJzhSoAAHA+r2KaNl9/CzXjjgjJGfaXyeeXGzW8NuWzKB25FUR8RnL6qvsaf98NoXRg5YTJ+QaN3h J6I07Hlq/FJN1olHDFcL bf9aqMJXo7nfRVFWKNwpGxtpBmucFtefFAEeCRpogQGk2hvqgsfWAoPAmTOjZJSULgggKVCrOXJF6WNf w1ufNGYN51GP7NxbJ5// WF5Tr6TT1/I6rIdLnyoIP38up8Hck+SckxkTI68nNitXg6dOdhp0eMLkTNXQCY//EUEuIuCmYznGg5w3 wZD7fxRDueRumglxJPYE 95dCwxU0gm8bO142rhOe1ErRztOboXHS/TLL7+EfM8pBB9x9lZIpLMRLrMyMIaa8zo7d6T0HYKH00BPs sHV/xeRSJsF1UytGLcI9 lvpddUzkAfhS0mod8eKzp+hEmDyi0u14i911nPE8GbJL21XYmgzDMBo7TBLGquBSax7PpzYxnN4lOMF+ 4GBFdrLBSFY1B55UPthy 2iMemXFZM+7ldfKxxZ9J2MIy8+fH7HstDYGMmedu4No4kR++yNlywm0ZsiTrKT6pAygdZKcmrBhLRkFv sc4ZlYDNLrUoGpaWm7CC BYBQ0EDsNiwJyNOVqYv5jU47Yq6Vg3k5eBqRsZmTJlm8dyJDdVkqujHzW+Iq3Ohxq7++knmc/ToURVjg rjGk4LXyu5tk+6KcQYsu Hd5GI17XDHzMyyzU0Mv3kgWS/xlZ82azMcbMlOcmNAmmBCMdfBzMFZ96cIccKZkCrS7SPz53sEwfbIE0 WyjA6b222GbNvIG2H/v7 CllVHj7thHt9KUWCCGwcVjTxwOKGjolZF92RJUaER/H2vxJkmBBnz+DSaD2oCclfYfpqsFYAYJfaHCfp wWmtHLoMfe76WjCoVj31 7cyUUh9Tq5BfIqtJyywQWjSkPxiLo0rtuieCgqvSrBwvaBdqtXa0MznpItes7Jzg1FQShvMUxhSG31Wp MxE1iKxZvGXgt7IeUozM 1Kc7khj9uFaDNt6gdOwlyyIQV4VW7+yH/iUrIrFoPrbq4G4RZkklrc2835ES4sRRqURfxd+aP0OY9w7L l61tWbj4ke1SxEOjZrBf Atkinson/J2C+LiALRNs1jHcjHpq3bz1hO0t2znbFoSJCfbkc9xLt7PRYLIjblNM7BILWmNB2MHTx7F0SZkEAY EgEA75xRNDHKGPnZQpLJ vxndjYrpIlhUaOQqzLX6vVr7CzpxGrOkfr0E8WZOQBD5bsb+O8eqXycojmLN0U3HATpBCF3E3HVbjOVZ DPsoiuAv1mL9mQIutMsd UoChhiUUziaOfFabcwdSAMuQjenssYdxbCMnLpWKPlP5cOa/N4PENgQIxakuIYYews9Ozz53l3ip7rEF 1Nu7X+/mZ0Fgk6pUBiff BUEX7hzJCDZAYLj4n45m+6E9wGeHDzO3ZigBWsQE7VxAVhAMBvHT4Ki8ZYiFFyv0nHVbuHmth8ZYt5Pq GlQcaExgXtRpUoVWSmhG g0XdDszB8/voNprWTJ3pqGYrAKHsHt7VyVDwXEeO8ob6m1K1gtUjAgT2AstLzvJP/CBEBYalaygMJESz 9Cp7pze4IvK1QjAqUMSF sJWx8064ThkmzHHNONPTwXhaRWcCYSvKXM3HailzHkwzoJoeseWNSxPMRAEfTF2Wy4+ytz1rUm6N0d9c si69sy6ihCV7JoibLCQV ++qwcPTIPA77wNpFIq9tRntx9NGIvq06i/Tybcrk30GqdQ35ZpR79BkYldB4U1zd3JJN0OKrkUHcnpZ0 GB8eFM53TVUPyiJdnyEE 0lYXHySwdrY05hucvkgW/uuMJjOId5+4wYjn4C6q6Uw+pYpTtpecQFrDnojHGYfxjscCK466agOBTTtE G1tsUaA7+qA5Okq4wrEZ 8Q7G/y08vHcBrnd6fN7qGoc1UxGQGN0OOQCfT2v4DH3BoaL85Q/2U1b0+T4nxWKempDeTXGsiob1PO3/ 6mecHjr9IdLf9A5rzZcE gLBm9oIENi0FrHxXUyIe8ML2cvFTxu9NXcShwvuvLk3JcD4uC03WyR2LnC7CXgG24lMF2ddSTVwx8M6k nRheZfagp4/1HlDmf8QJ 8LePBfmH3rUZVzZXRrQ3dwFqGFl1Pv6KUA/3XzoyniDtvUFDKsFm67+cv02tgl17c3qQGpa6zIInwCsb loDidafSpFducHBlhtCE P15wM1UXH0GVUWDJH2SuNYE8IQfHkCbFM/M+6PxZSHrF2d9oZeKJm2VdQtClqrleC/a8oTikkLYbpqIT Y7uTN5lJAtEvOUlLD6Kt huutQDR1+qVSFFrNmslaZxVSC5QVylfB3vTQy1VJ0FYFXstzTjmYtjebzhf4v/QweGpEDcuy8295qzUS vTd1wyPnFFLF6FDvh/+K I/3Fk/mQmC/l6xg4xvjywNBQ5EHNf57K2eBO4Z/xbqivblRq3esa2QpwCQLbijA41RUS6MWvSUd5glEm JgD0waJeuEdjcgn5eeQU MoFMmfbxEdwZmVM0u+jm8S+qlC7tk95g51e3YZwAypoV5Hel7nsLaWNgdS0RnP5nBBjB9TFHNBpL8mZo UMHp/6vpaY7vN2e+1t4+ +23U/hc0bJ1X/RHOff9tkdgNRuPjMX31lNUSMpY0x5e67TdEvvTTEPVYnZvI9wCga0SrlcL1mXxETjYd vUd6ZFPRKFMyofWgnCbx n79+sdMNIiOmc4CLLuDGu9GR82Q8185a7zuSPhIsAqio/qJULTr9Q46O4Ykvmke2qbop3fDUM9eOBvGM OILpEG85rrsg4MV9xarJ DRIm2BeV3kweZgK3syFn3Q9gpIgdMSRrGhkIrZeNEj7ytJSsWlEXqeseUy1vcH21SeLpaMoscG44oEmy O4c3R/zNUOJfQgqbxh28 3xqZH345ldY292gaR5OrFETaRYV4GIK13U9wfpMk1WEiXOm+ux2drWKV/idN4hS2qB1fg8o0OWpbKxTl YRngN/iCoz/7S5B9RU/O 6ZdDu1x7C5plchfLFeAqoxvEaSSlrqtJuCpp/cB9Q+6LZEG6/UlYhqP3VjhP80bTMKg2oGQCKFdtQRVV EIJi7/8k5tnpvmdihBnY cw/V2X2ObK7PEt0kthkqRkW7UkdPS4RyGyiFyGaU3R0xX29f7QqsW52AwEzRAfghOO/FND8+/yen437S 0/CYRWTc6Ssts7aPIBDp JqMLiBM+vkngIUHWn+wsGL+HjJ6Zll8XSrpwlPJJPVOBfh0vKxkHkxQXnu4raCHw+FqeEiSEs2t22cJw bzxMVlNJCap7JUQpvFXk idYgDAMwzA+mJGDKMcO9GkYRTyMDRgSsFUdLVMokVDt/3Ub0PRFI414KAHHNFsRRfMjFqOV></span> </div><div>
</div><div style=text-align:center>
< /div><div><strong>Patient Name</strong>: <span class=clinicalNoteMacroWysiwyg id=[id number] macroname=PatientName spantype="macro title=#PatientName>ALYSSA PULIDO</span>
<strong>Date of :</strong> <span class=clinicalNoteMacroWysiwyg id=[id number] macroname=PatientDateOfBirth spantype=macro title=#Pa tientDateOfBirth>1950</span>
<strong>MRN:</strong> <span class=clinicalNoteMacroWysiwyg id=[id number] macroname=P atientMRN spantype=macro title=#PatientMRN>[id number]</span>< br><strong>Attending Physician:</strong> <span class=clinicalNoteMacroWysiwyg id=[id number] macroname=AttendingPhysician spantype="macro title=#AttendingPhysician>Sarah Coto (Gynecological/Onco logy)</span>
<strong>Date of Service:</strong> <span class=clini calNoteMacroWysiwyg id=[id number] macroname=EffectiveDate spantype=macro title=#EffectiveDate>05/10/2025</span>
<strong>Referred by:</strong> Dr. Coto

<div style="text- align:center><strong>PALLIATIVE CARE INITIAL VISIT</strong><b r>

</div><span class=clinicalNoteSectionVisible id= [id number] internalbreaksection=false originalname=Chief Comp laint recognizeconcepts=true spantype=section suppressempty=false>Chief Complaint (Palliative Care)</span>
Establish Care

<span class=clinicalNoteSectionVisible id=[id number] exercise science internship albreaksection=false originalname=Oncology Diagnosis recognizeconcepts=&quot ;true spantype=section suppressempty=false>Oncology Diagnosis</s nava>
Stage IV SCC of the cervix

<span class=clinicalNoteSect ionVisible id=[id number] internalbreaksection=false orig inalname=HPI recognizeconcepts=true spantype=section suppressemp ty=false>History of Present Illness (Palliative Care)</span>
This visit was provided via telemedicine with the use of real-time audio and video via [employer]. Alyssa has provided written consent to conduct this visit via telemedicine. The patient participated in this visit, noted that her home health RN was in the room however he/she did not participate in the visit. The patient is located in their home and I, Dr. Carol Branham am loc ed in [facility].

<span style=font-size:11.0pt><span style=line-height:107%><span style=font-family:Calibri",sans- serif><span style=color:black>History today was provided by chart review and patient report. Cancer diagnosis began with development of acute renal failure. Admitted to [facility] with this December 2024. Found to have cervical mass and bilateral hydronephrosis. Biopsy confirmed SCC, PET showed disease extension into uterus, bladder wall. Completed concurrent chemoradiation with immunotherapy, followed by brachytherapy. Admitted with complicated UTI earlier this month. Treatments have been through her local Oncology team and [facility]. Anticipates a follow up PET in June. [...] internalbreaksection="false originalname=Medications recognizeconcepts=true spantype="section suppressempty=false>Current Medications</span>
<span class=clinicalNotSouth[facility] CentercroWysiwyg id=[id number] macroname=PatientMedications parameters=ListType:Bulleted spantype=macro title=&q uot;#PatientMedications(ListType:Bulleted)> </span>
Per outside Oncology note,
Carvedilol
Loperamide
Miralax&l t;br>Compazine
Trazodone

<span class=clinicalNoteSectionVisible id=[id number] internalbreaksection=false originalna me=Allergies recognizeconcepts=true spantype=section suppressemp ty=false>Allergies</span>
<span class=clinicalNot[facility] HealthoWysiwyg id=[id number] macroname=Allergies parameters=ValueIfNull:NKA spantype=macro title=#Allergies(ValueIfNull:NKA)>Cipro&l t;/span>

<span class=clinicalNoteSectionVisible id=annabellaio [id number] internalbreaksection=false originalname=Review of Syste ms recognizeconcepts=true spantype=section suppressempty=false&q uot;>Review of Systems (Palliative Care)</span>
<span class=clinicalNoteS ectionVisible id=[id number] internalbreaksection=false or iginalname=Palliative Care - Pain recognizeconcepts=true spantype=section suppressempty=false>Pain</span>
<span class=clinicalNotSouth[facility] CentercroWysiwyg id=[id number] macroname=PatientPainScale" parameters=LookBackDays:All spantype=macro title=#PatientPainScale(L ookBackDays:All)>3</span>
<span style=font-size:11.0pt><span style=font-family:Calibri,sans-serif>The only pain she currently gets is at her nephrostomy tubes. She will take Tylenol at times for this, 3c020bf or 4y628ea. Feels that currently it is not severe [...] type=section suppressempty=false>Physical Exam (Palliative Care)</span >
<div style=tddu-udqjq-khyy:none>General Appearance: Patient is awake, alert and oriented, in no acute distress. Patient is dressed and well-groomed,well-nourished with no evidence of self-neglect.
HEENT: Sclerae anicteric.
Respiratory: Normal work of breathing with conversational speech.
Neuro: Alert and oriented, no facial asymmetry.
Psych: The patient is alert, attentive, and oriented. Speech is clear and fluent with good comprehension. Insight and judgment appropriate to situation.
</div><div style=zhvj-qrfjg-oybx:none><span style=font-size:11pt><span style=font-family:Calibri,sans-serif&qu ot;>
Comments on Pertinent Labs/Tests: [...] the guidance of her local Oncologist and [facility]. Please see below.

<span class=clinicalNoteSectionVisible" id=[id number] internalbreaksection=false [...] spantype=macro title="#MyRole>Physician</span>
<span class=clinicalNoteMacroWysiwyg" id=[id number] macroname=LocationPhoneNumber spantype=macro title=#LocationPhoneNumber>[phone]</span>
<span cl ass=clinicalNoteMacroWysiwyg id=[id number] macroname=Locat ionFaxNumber spantype=macro title=#LocationFaxNumber>[phone]&l t;/span>

cc:<span class=clinicalNoteMacroWysiwyg id=macro [id number] macroname=NoteRecipients spantype=macro title= #NoteRecipients>Axel Palomo MD</span>

</div>

<div><span class=eSignSignature>Electronically signed by Carol Branham MD 05/14/2025 09:56 CDT</span></div></body></html>
--- OUTSIDE RECORDS SUMMARY | 2025-07-23 18:32 | XMS_ITS | Clinical Summary ---
Author Organization [facility] Address [address] [place] [address] Care Team Providers Care Internal Medicine Physician Assistant Name Role Phone Votel, Axel Thomas MD Primary Care Provider + [facility] Care, Elmer Unavailable Allergies Active Allergy Reactions Criticality Noted [...] by mouth once daily in the evening. [place] administration timing is 2-3 hours before bedtime. [...] Date Type Department Care Team Description 07/22/2025 3:45 AM CDT Home Care Visit [facility] [address] [place] [address] Quiana Walsh RN SN - WOUND/OSTOMY CHART CONSULT (<30 MIN) 07/22/2025 Telephone [facility] [address] [place] [address] Axel Palomo MD Urinary Problem 07/22/2025 Nurse Triage [facility] [address] [place] [address] Axel Palomo MD Breathing Problem 07/22/2025 Telephone [facility] [address] [place] [address] Axel Palomo MD Concerns (Health update triage transfer) 07/21/2025 2:30 PM CDT Office Visit [facility] [address] [place] [address] Axel Palomo MD Hospital F/U (ANW, 07/17/25, pulmonary embolism) 07/20/2025 1:00 PM CDT Home Care Visit [facility] [address] [place] [phone] Krista Velasco, DUYEN SN - OASIS START OF CARE 07/20/2025 Travel 07/20/2025 Orders Only [facility] [address] [place] [address] Axel Palomo MD <No scans attached> 07/20/2025 Telephone [facility] [address] [place] [phone] Krista Velasco, hand winder 07/20/2025 Plan of Care Documentation [facility] [address] [place] [phone] 07/20/2025 Patient Outreach [facility] [address] [place] [address] Genia Fuentes, RN Primary RN Care Management; Hospital F/U (LACE 68) 07/19/2025 Home Care Visit [facility] [address] [place] [phone] Krista Velasco, DUYEN EPISODE DISCHARGE 07/19/2025 Home Care Visit [facility] [address] [place] [phone] Sabrina Howard RN SN - OASIS TRANSFER 07/18/2025 Home Care Visit [facility] [address] [place] [phone] Sabrnia Howard PUBLIC ADMINISTRATION TEACHER NOTE 07/17/2025 6:39 PM CDT - 07/19/2025 1:50 PM CDT Hospital Encounter [facility] [address] [place] [address] Drew Parmar, Albert Jackson MD Residents, Icu Avni Ivey MD Acute pulmonary embolism with acute cor pulmonale, unspecified pulmonary embolism type (HC) (Primary Dx); Uterine/cervical mass with concern for bladder and rectal invasion Discharge Disposition: Home Self Care 07/17/2025 Orders Only [facility] Scanner 1 scan: (1-Ord) [facility], CT ABDOMEN PELVIS W CON, 07/17/2025 07/17/2025 Orders Only [facility] Scanner 1 scan: (1-Ord) [facility], CT ANGIO CHEST PE PROTOCOL, 07/17/2025 07/15/2025 9:00 AM CDT Office Visit [facility] [address] [address] Shahbaz Gaviria MD Consult (Recurring urinary infections. ) 07/15/2025 Orders Only [facility] Scanner 1 scan: (1-Ord) [place], ANGIO CHEST PE PROTOCOL, 07/15/2025 07/14/2025 Orders Only [facility] Scanner 1 scan: (1-Ord) [place], CHEMISTRY, 07/14/2025 07/14/2025 Orders Only [facility] Scanner 1 scan: (1-Ord) [facility], CT ABDOMEN PELVIS W/ CON, 07/14/2025 07/14/2025 Travel 07/12/2025 10:00 AM CDT Home Care Visit [facility] [address] [place] [address] Krista Velasco, RN SN - OASIS RECERTIFICATION 07/12/2025 9:00 AM CDT Home Care Visit [facility] [address] [place] [phone] Dane Haynes THREAD PULLING MACHINE ATTENDANT - HOME VISIT 07/12/2025 Plan of Care Documentation [facility] [address] [place] [phone] 07/12/2025 Telephone [facility] [address] [place] [phone] Krista Velasco, hand winder 07/11/2025 10:25 AM CDT Office Visit [facility] [address] [place] [address] Axel Palomo MD Abdominal Pain (Constipated, not sleeping); Results (PET scan, wants clarification) 07/11/2025 Telephone [facility] [address] [place] [address] Axel Palomo MD Appointment (Request appointment for New Patient and Consult ) 07/11/2025 Travel 07/06/2025 10:00 AM CDT Home Care Visit [facility] [address] [place] [phone] Too Ayala, PT PT - DISCIPLINE DISCHARGE 07/06/2025 Travel 07/05/2025 10:00 AM CDT Home Care Visit [facility] [address] [place] [phone] Krista Velasco RN SN - HOME VISIT 07/05/2025 9:15 AM CDT Home Care Visit [place] [id number] [place] [phone] Dane Haynes THREAD PULLING MACHINE ATTENDANT - HOME VISIT 06/30/2025 9:00 AM CDT Home Care Visit [place] [id number] [place] [phone] Krista Velasco RN SN - HOME VISIT 06/30/2025 Orders Only [facility] Scanner 1 scan: (1-Ord) [facility], SKULL BASE TO THIGHS, 06/30/2025 06/29/2025 9:00 AM CDT Home Care Visit [facility] [address] [place] [phone] Too Ayala, PT PT - HOME VISIT 06/28/2025 9:30 AM CDT Home Care Visit [address] [phone] Dane Haynes THREAD PULLING MACHINE ATTENDANT - HOME VISIT 06/28/2025 Refill [facility] [address] [facility] [address] Axel Palomo MD Refill Request (Trazodone) 06/24/2025 11:00 AM CDT Home Care Visit [facility] [address] [place] [phone] Krista Velasco, DUYEN SN - HOME VISIT 06/24/2025 Telephone [facility] [address] [place] [address], [place] [phone] Krista Velasco, hand winder 06/22/2025 11:30 AM CDT Home Care Visit [facility] [address] [place] [address], [place] [phone] Shanika Joya MSW PRODUCT MARKETING EXECUTIVE - INITIAL ASSESSMENT 06/21/2025 9:30 AM CDT Home Care Visit [facility] [address] [place] [phone] Dane Haynes THREAD PULLING MACHINE ATTENDANT - HOME VISIT 06/16/2025 9:30 AM CDT Home Care Visit [facility] [address] [place] [address], [place] [phone] Krista Velasco, DUYEN SN - HOME VISIT 06/15/2025 Home Care Visit [facility] [address] [place] [phone] Shanika Joya MSW CARE COORDINATION 06/14/2025 7:30 AM CDT Home Care Visit [facility] [address] [place] [phone] Dane Haynes THREAD PULLING MACHINE ATTENDANT - HOME VISIT 06/10/2025 2:00 PM CDT Home Care Visit [facility] [address] [place] [phone] Drew Dent, PT PT - INITIAL ASSESSMENT 06/10/2025 Orders Only [facility] Scanner 1 scan: (1-Ord) [place], MULTIPLE RESULTS, 06/10/2025 06/10/2025 Travel 06/09/2025 2:30 PM CDT Home Care Visit [facility] [address] [place] [phone] Krista Velasco RN SN - HOME VISIT 06/08/2025 Home Care Visit [facility] [address] [place] [phone] Drew Dent, PT CARE COORDINATION 06/07/2025 9:15 AM CDT Home Care Visit [facility] [address] [place] [phone] Dane Haynes THREAD PULLING MACHINE ATTENDANT - HOME VISIT 06/07/2025 Orders Only [facility] Scanner 1 scan: (1-Ord) [place], URINE CULTURE, 06/07/2025 06/07/2025 Orders Only [facility] Scanner 1 scan: (1-Ord) [facility], URINE CULTURE, 06/07/2025 06/07/2025 Orders Only [facility] Scanner 1 scan: (1-Ord) [facility], MULTIPLE LABS, 06/07/2025 06/07/2025 Telephone [facility] [address] [place] [address] Axel Palomo MD Urinary Problem 06/07/2025 Nurse Triage [facility] [address] [place], [place] [phone] Axel Palomo MD Urinary Problem 06/02/2025 11:30 AM CDT Home Care Visit [facility] [address] [place] [phone] Krista Velasco, DUYEN SN - HOME VISIT 05/26/2025 9:30 AM CDT Home Care Visit [facility] [address] [place] [address] Petra Carroll LPN CONCRETE BUCKET LOADER - HOME VISIT 05/25/2025 9:00 AM CDT Home Care Visit [facility] [address] [place] [address] Dane Haynes THREAD PULLING MACHINE ATTENDANT - HOME VISIT 05/25/2025 Home Care Visit [facility] [address] [place] [phone] Fina Waters, RN CARE COORDINATION 05/19/2025 8:30 AM CDT Home Care Visit [facility] [address] [place] [address], [place] [phone] Dane Haynes THREAD PULLING MACHINE ATTENDANT - HOME VISIT 05/18/2025 11:00 AM CDT Home Care Visit [facility] [address] [place] [address], [place] [phone] Petra Carroll LPN CONCRETE BUCKET LOADER - HOME VISIT 05/18/2025 Medical Messaging [facility] [address] [place] [address] Axel Palomo MD Nephrology Referral 05/13/2025 1:00 PM CDT Home Care Visit [facility] [address] [place] [phone] Krista Velasco RN SN - OASIS RECERTIFICATION 05/13/2025 Plan of Care Documentation [facility] [address] [place] [address], [place] [phone] 05/10/2025 2:30 PM CDT Office Visit [facility] [address] [place] [address] Axel Palomo MD ER Follow up ([place], UTI, 04/29/25) 05/10/2025 10:00 AM CDT Home Care Visit [facility] [address] [place] [address], [place] [phone] Krista Velasco RN SN - HOME VISIT 05/10/2025 Travel 05/06/2025 9:45 AM CDT Home Care Visit [facility] [address] [place] [address], [place] [phone] Nicky Ragland RN SN - HOME VISIT 05/05/2025 Travel 05/03/2025 1:00 PM CDT Home Care Visit [facility] [address] [place] [address] Krista Velasco, DUYEN SN - OASIS RESUMPTION OF CARE 05/03/2025 Telephone [facility] [address] [place] [address] Krista Velasco, hand winder 04/29/2025 Home Care Visit [facility] [address] [place] [address], [place] [phone] Krista Velasco, RN SN - OASIS TRANSFER 04/28/2025 Orders Only [facility] Scanner 1 scan: (1-Ord) [place], URINE/BLOOD CULTURE W/LABS, 04/28/2025 04/27/2025 11:00 AM CDT Home Care Visit [facility] [address] [place] [address], [place] [address] Krista Velasco RN SN - HOME VISIT 04/27/2025 Orders Only [facility] Scanner 1 scan: (1-Ord) [place], 04/27/2025 04/27/2025 Orders Only [facility] Scanner 1 scan: (1-Ord) [facility], MICROBILOGY, PSEUDOMONAS AERUGINOSA, 04/27/2025 04/27/2025 Home Care Visit [facility] [address] [place] [address], [place] [address] Krista Velacso, PUBLIC ADMINISTRATION TEACHER NOTE 04/27/2025 Orders Only [facility] Scanner 1 scan: (1-Ord) [facility], CHEST 2 V, 04/27/2025 04/22/2025 9:00 AM CDT Home Care Visit [facility] [address] [place] [address], [place] [address] Petra Carroll, [place] CONCRETE BUCKET LOADER - HOME VISIT from Last 3 Months [...] row info)? No 01/06/2025 Interpersonal Safety Abuse - 18 Not on file 01/06/2025 Interpersonal Safety Ambulatory Vulnerability No t on file 01/06/2025 Utilities Answer Date Recorded Do you have trouble paying f or utilities (for example, heat, electricity, water, phone)? 1 01/06/2025 Comments No Sex and Gender Information Value Date Recorded Sex Assigned at Not on file Legal Sex Female 7:12 AM COMPUTER EQUIPMENT REPAIRER Gender Identity Not on file Sexual Orientation [...] st Contact Info) Description 07/25/2025 11:45 AM COMPUTER EQUIPMENT REPAIRER Appointment [address] [phone] Dane Haynes 07/28/2025 10:00 AM COMPUTER EQUIPMENT REPAIRER Appointment [address] [phone] Krista Velasco, DUYEN 08/04/2025 4:00 AM COMPUTER EQUIPMENT REPAIRER Appointment [address] [phone] Krista Velasco, DUYEN 08/11/2025 4:00 AM COMPUTER EQUIPMENT REPAIRER Appointment [address] [place] [address] Krista Velasco, RN 08/18/2025 4:00 AM COMPUTER EQUIPMENT REPAIRER Appointment [address] [phone] Krista Velasco, RN 08/25/2025 4:00 AM COMPUTER EQUIPMENT REPAIRER Appointment [address] [phone] Krista Velasco, RN 09/01/2025 4:00 AM COMPUTER EQUIPMENT REPAIRER Appointment [address] [phone] Krista Velasco, RN 09/08/2025 4:00 AM COMPUTER EQUIPMENT REPAIRER Appointment [address] [phone] Krista Velasco, RN 09/15/2025 4:00 AM COMPUTER EQUIPMENT REPAIRER Appointment [address] [phone] Krista Velasco, RN Health Maintenance Due Date [...] 440 thou/cu mm 07/19/2025 4:33 AM CDT [facility] MPV 9.6 6.5 - 11.0 fL 07/19/2025 4:33 AM CDT [facility] Blood BLOOD SPECIMEN / Unknown Line/Port / Unknown 07/19/2025 4:22 AM CDT 07/19/2025 4:29 AM CDT Narrative [facility] - 07/19/2025 4:33 AM CDT Every morning while on IV heparin. Necessary every morning while on IV heparin. us Drew Parmar DO HEMATOLOGY Final Result [facility] [address] [place] [address], * (ABNORMAL) HEMOGLOBIN (07/19/2025 4:22 AM CDT) Only the most recent of2 resultswithin the time period is included. HEMOGLOBIN 9.7(L) 12.0 - 16.0 g/dL 07/19/2025 4:33 AM CDT [facility] MCV 92 80 - 100 fL 07/19/2025 4:33 AM CDT [facility] Blood BLOOD SPECIMEN / Unknown Line/Port / Unknown 07/19/2025 4:22 AM CDT 07/19/2025 4:29 AM CDT Narrative [facility] - 07/19/2025 4:33 AM CDT Every morning while on IV heparin. Necessary every morning while on IV heparin. Drew Parmar DO HEMATOLOGY Final Result Performing Organization Address [facility] Co de Phone Number [facility] [address] [address], [place] * POTASSIUM (07/19/2025 4:22 AM CDT) Only the most recent of4 resultswithin the time period is included. Pathologist [facility] POTASSIUM 3.9 3.5 - 5.1 mmol/L 07/19/2025 5:00 AM CDT [facility] Blood BLOOD SPECIMEN / Unknown Line/Port / Unknown 07/19/2025 4:22 AM CDT 07/19/2025 4:29 AM CDT Avni Ivey MD CHEMISTRY Fi nal Result Performing Organization Address City/[facility]/ZIP Co de Phone Number [facility] [address] [address], [place] * (ABNORMAL) Creatinine AM (07/19/2025 4:22 AM CDT) eGFR 45(L) >90 mL/min/1.7 3m2 07/19/2025 5:00 AM CDT [facility] Comment:As of 2021, eG FR is calculated by the CKD-EPI creatinine equation without race adjustment. eGFR can be influenced by muscle mass, exercise, and diet. The reported eGFR is an estimation only and is only applicable if the renal function is stable. CREATININE 1.26(H) 0.50 - 0.90 mg/dL 07/19/2025 5:00 AM CDT [facility] Blood BLOOD SPECIMEN / Unknown Line/Port / Unknown 07/19/2025 4:22 AM CDT 07/19/2025 4:29 AM CDT us Avni Ivey MD CHEMISTRY Fi nal Result Performing Organization Address City/[facility]/ZIP Co de Phone Number [facility] [address] [place] [address], * (ABNORMAL) APTT (07/19/2025 4:22 AM CDT) Only the most recent of4 resultswithin the time period is included. APTT 73(H) 25 - 36 sec 07/19/2025 4:41 AM CDT [facility] Blood BLOOD SPECIMEN / Unknown Line/Port / Unknown 07/19/2025 4:22 AM CDT 07/19/2025 4:29 AM CDT Narrative [facility] - 07/19/2025 4:41 AM CDT Therapeutic Range: 59-89 seconds us Albert Corley MD HEMATOLOGY Final Result [facility] [address] [place] [address], * (ABNORMAL) GLUCOSE METER (07/19/2025 4:22 AM CDT) Only the most recent of5 resultswithin the time period is included. GLUCOSE METER 103(H) 65 - 100 mg/dL 07/19/2025 4:27 AM CDT [facility] Blood BLOOD SPECIMEN / Unknown 07/19/2025 4:22 AM CDT 07/19/2025 4:27 AM CDT us Drew Parmar DO CHEMISTRY Final Result [facility] [address] [place] [address], [place] * MAGNESIUM (07/19/2025 1:06 AM CDT) Only the most recent of3 resultswithin the time period is included. MAGNESIUM 2.2 1.6 - 2.4 mg/dL 07/19/2025 3:02 AM CDT [facility] Blood BLOOD SPECIMEN / Unknown Line/Port / Unknown 07/19/2025 1:06 AM CDT 07/19/2025 1:13 AM CDT us Avni Ivey MD CHEMISTRY Fi nal Result Performing Organization Address City/[facility] Co de Phone Number [facility] [address] [place] [address], [place] * SCAN-CARDIAC STRIP (07/18/2025 10:52 PM CDT) [...] BSA: 1.73 m Weight: 66.00 kg Tech: MELLO Referring MD: DREW PARMAR Site: [facility] Reading Location: [facility] Patient Location: Inpatient. Procedure: 2D, Color Doppler [...] . This study was interpreted by an [facility] accredited facility. Final Procedure Note Hoang Enriquez MD - 07/18/2025 ECHOCARDIOGRAM ALYSSA PULIDO : 1950 74 years Study Date: 07/18/2025 8:25:02 AM Gender: F BP: 134/90 mmHg Height: 165.00 cm BSA: 1.73 m Weight: 66.00 kg Tech: DW Referring MD: DREW PARMAR Site: [facility] Reading Location: [facility] Patient Location: Inpatient. Procedure: 2D, Color Doppler [...] . This study was interpreted by an [facility] accredited facility. Final us Drew Parmar DO ECHO ORD Final Result * SCAN-CARDIAC STRIP (07/18/2025 7:30 AM CDT) us Scanner OTHER Final Result * (ABNORMAL) CBC WITH AUTO DIFFERENTIAL (07/17/2025 7:56 PM CDT) WHITE BLOOD COUNT 5.5 4.5 - 11.0 thou/cu mm 07/17/2025 8:06 PM CDT [facility] RED BLOOD COUNT 3.56(L) 4.00 - 5.20 mil/cu mm 07/17/2025 8:06 PM CDT [facility] HEMOGLOBIN 10.6(L) 12.0 - 16.0 g/dL 07/17/2025 8:06 PM CDT [facility] HEMATOCRIT 33.4 33.0 - 51.0 % 07/17/2025 8:06 PM CDT [facility] MCV 94 80 - 100 fL 07/17/2025 8:06 PM CDT [facility] MCH 29.8 26.0 - 34.0 pg 07/17/2025 8:06 PM CDT [facility] MCHC 31.7(L) 32.0 - 36.0 g/dL 07/17/2025 8:06 PM CDT [facility] RDW 15.2 11.5 - 15.5 % 07/17/2025 8:06 PM CDT [facility] PLATELET COUNT 130(L) 140 - 440 thou/cu mm 07/17/2025 8:06 PM CDT [facility] MPV 9.4 6.5 - 11.0 fL 07/17/2025 8:06 PM CDT [facility] NRBC 0.0 % 07/17/2025 8:06 PM [facility] ABS NRBC 0.0 thou /cu mm 07/17/2025 8:06 PM [facility] % NEUT 75.4 % 07/17/2025 8:06 PM CDT [facility] % LYMPH 11.0 % 07/17/2025 8:06 PM [facility] % MONO 11.7 % 07/17/2025 8:06 PM T [facility] % EOS 1.3 % 07/17/2025 8:06 PM [facility] % BASO 0.4 % 07/17/2025 8:06 PM T [facility] % IMMATURE GRAN (METAS,MYELOS,CO OS) 0.2 % 07/17/2025 8:06 PM [facility] ABSOLUTE NEUTROPHILS 4.1 1.7 - 7.0 thou/cu mm 07/17/2025 8:06 PM T [facility] ABSOLUTE LYMPHOCYTES 0.6(L) 0.9 - 2.9 thou/cu mm 07/17/2025 8:06 PM T [facility] ABSOLUTE MONOCYTES 0.6 <0.9 thou/cu mm 07/17/2025 8:06 PM T [facility] ABSOLUTE EOSINOPHILS 0.1 <0.5 thou/cu mm 07/17/2025 8:06 PM T [facility] ABSOLUTE BASOPHILS 0.0 <0.3 thou/cu mm 07/17/2025 8:06 PM [facility] ABSOLUTE IMMATURE GRANULOCYTES(MET ,MYELOS,PROS) 0.0 <0.3 thou/cu mm 07/17/2025 8:06 PM CDT [facility] Blood BLOOD SPECIMEN / Unknown Non-Lab Venipuncture / Unknown 07/17/2025 7:56 PM CDT 07/17/2025 8:02 PM CDT Drew Parmar DO HEMATOLOGY Final Result Performing Organization Address City/[facility]/ZIP Co de Phone Number [facility] [address] [place] [address], [place] * LACTATE VENOUS (07/17/2025 7:56 PM CDT) Pathologist [facility] LACTATE,VENOUS 0.7 0.5 - 2.0 mmol/L 07/17/2025 8:25 PM CDT [facility] Blood BLOOD SPECIMEN / Unknown Non-Lab Venipuncture / Unknown 07/17/2025 7:56 PM CDT 07/17/2025 8:02 PM CDT Luis Cornejo [facility] CHEMISTRY Final R esult Performing Organization Address City/[facility] Co de Phone Number [facility] [address] [place] [address], [place] * HEPARIN ANTI-XA (07/17/2025 7:56 PM CDT) Pathologist [facility] HEPARIN ANTI-XA 1.82 See Comment U/mL 07/17/2025 8:18 PM CDT [facility] Blood BLOOD SPECIMEN / Unknown Non-Lab Venipuncture / Unknown 07/17/2025 7:56 PM CDT 07/17/2025 8:02 PM CDT Narrative [facility] - 07/17/2025 8:18 PM CDT [...] - 0.25 U/mL Critical: >1.00 U/mL Luis Gonzalezamber [facility] HEMATOLOGY Final R esult Performing Organization Address [facility] Co de Phone Number [facility] [address] [address], [place] * (ABNORMAL) Protime-INR (07/17/2025 7:56 PM CDT) INR 1.3(H) <1.3 07/17/2025 8:15 PM CDT [facility] PROTIME 14.5(H) 10.6 - 12.4 sec 07/17/2025 8:15 PM CDT [facility] Blood BLOOD SPECIMEN / Unknown Non-Lab Venipuncture / Unknown 07/17/2025 7:56 PM CDT 07/17/2025 8:02 PM CDT [facility] - 07/17/2025 8:15 PM CDT Therapeutic Range [...] if the patient is on UFH. Luis Mendez Espinozabrittyasmine [facility] HEMATOLOGY Final R esult Performing Organization Address [facility] Co de Phone Number [facility] [address] [place] [address], [place] * Fibrinogen, Quantitative (07/17/2025 7:56 PM CDT) FIBRINOGEN,ANGEL NTITATIVE 269 193 - 401 mg/dL 07/17/2025 8:15 PM CDT [facility] Blood BLOOD SPECIMEN / Unknown Non-Lab Venipuncture / Unknown 07/17/2025 7:56 PM CDT 07/17/2025 8:02 PM CDT us Luis Cornejo [facility] HEMATOLOGY Final R esult [facility] [address] [place] [address], * (ABNORMAL) Hepatic Function Panel (07/17/2025 7:56 PM CDT) ALBUMIN 3.6(L) 4.0 - 4.9 g/dL 07/17/2025 8:25 PM CDT [facility] PROTEIN,TOTAL 6.1 6.0 - 8.0 g/dL 07/17/2025 8:25 PM CDT [facility] [facility] BILIRUBIN,TOTAL 0.3 0.0 - 1.2 mg/dL 07/17/2025 8:25 PM CDT [facility] BILIRUBIN,DIRECT 0.1 0.0 - 0.2 mg/dL 07/17/2025 8:25 PM CDT [facility] BILIRUBIN,INDIRE CT 0.2 0.2 - 0.8 mg/dL 07/17/2025 8:25 PM CDT [facility] ALK PHOSPHATASE 73 35 - 104 IU/L 07/17/2025 8:25 PM CDT [facility] ALT (SGPT) 27 10 - 35 IU/L 07/17/2025 8:25 PM CDT [facility] AST (SGOT) 30 10 - 35 IU/L 07/17/2025 8:25 PM CDT [facility] Blood BLOOD SPECIMEN / Unknown Non-Lab Venipuncture / Unknown 07/17/2025 7:56 PM CDT 07/17/2025 8:02 PM CDT us Drew Parmar DO CHEMISTRY Final Result [facility] [address] [place] [address], [place] * (ABNORMAL) Basic Metabolic Panel (07/17/2025 7:56 PM CDT) SODIUM 137 136 - 145 mmol/L 07/17/2025 8:25 PM CDT [facility] POTASSIUM 4.0 3.5 - 5.1 mmol/L 07/17/2025 8:25 PM CDT [facility] CHLORIDE 102 98 - 107 mmol/L 07/17/2025 8:25 PM CDT [facility] CO2,TOTAL 25 22 - 29 mmol/L 07/17/2025 8:25 PM CDT [facility] ANION GAP 10 5 - 18 07/17/2025 8:25 PM CDT [facility] GLUCOSE 111(H) 70 - 99 mg/dL 07/17/2025 8:25 PM CDT [facility] CALCIUM 9.3 8.8 - 10.4 mg/dL 07/17/2025 8:25 PM CDT [facility] Comment: Reference ranges for this test were updated on 07/27/2024 to reflect our healthy population more accurately. Reference range changes are not retroactively applied to results, but previous results using the same methodology can be interpreted in the context of the new reference range. BUN 28(H) 8 - 23 mg/dL 07/17/2025 8:25 PM CDT [facility] CREATININE 1.14(H) 0.50 - 0.90 mg/dL 07/17/2025 8:25 PM CDT [facility] BUN/CREAT RATIO 25(H) 10 - 20 8:25 PM CDT [facility] eGFR 50(L) >90 mL/min/1. 73m2 07/17/2025 8:25 PM CDT [facility] Comment:As of 2021, eG FR [...] CDT Drew Parmar DO CHEMISTRY Final Result [facility] [address] [address], [place] * US Venous Lower Extremity Bilateral [...] 07/17/2025 7:53:21 PM (Electronically Signed) us Drew Parmar DO US Final Result * SCAN-CT INTERPRETATION [...] REFLEX MEASURED LDL (01/18/2025 2:53 PM CDT) [facility] Signature CHOLESTEROL, TOTAL 275(H) <200 mg/dL [facility] HDL CHOLESTEROL 53 > OR = 50 mg/dL [facility] TRIGLYCERIDES 137 <150 mg/dL [facility] LDL-CHOLESTEROL 193(H) mg/dL (calc) [facility] Comment: LDL-C levels > or = 190 [...] about testing for familial hypercholesterolemia, please call [employer] [facility] at [email or web address]. Deuce Phillips, et al. J National Lipid Association Recommendations for Patient-Centered Management of Dyslipidemia: Part 1 Journal of Clinical Lipidology 2015;9(2), 129-169. Shorty Giraldo. et al. (2014). Homozygous familial hypercholesterolaemia: new insights and guidance for clinicians to improve detection and clinical management. Heart Journal, 35(32), 6287-6167. Reference range: <100 Desirable range <100 mg/dL for primary prevention; <70 mg/dL for patients with CHD or diabetic patients with > or = 2 CHD risk factors. LDL-C is now calculated using the Greyson-Alex calculation, which is a validated novel method providing better accuracy than the Friedewald equation in the estimation of LDL-C. Greyson HUBBARD et al. CAPRICE. 2013;310(19): 3689-7124 (http://education.CertusNet/faq/SJQ928) CHOL/HDLC RATIO 5.2(H) <5.0 (calc) [facility] NON HDL CHOLESTEROL 222(H) <130 mg/dL (calc) [facility] Comment: Non-HDL level > or = 220 [...] Axel Palomo MD CHEMISTRY Final Re sult [facility] [address] [place] [address], [facility] [address] [place] [address] * ANTI HCV (06/11/2023 12:43 PM CDT) Pathologist [facility] HEPATITIS C ANTIBODY Non-Reacti ve Non-React dorian 06/12/2023 9:16 AM CDT [facility] Comment:Please note, per www [...] Andrade DO SEND OUTS Final Resu lt [facility] SENDOUT [place]NAL ZIP [id number] [address] [place] [address] * SDNA-FIT EXTERNAL (COLOGUARD) (06/18/2022 5:30 AM CDT) NONINV COLON CA DNA+OCC BLD SCRN STL-IMP Negative Negative 06/22/2022 8:52 AM CDT [facility] (CLIA #:[id number]) Comment: NEGATIVE TEST RESULT. A negative Cologuard [...] (Timmy Judge al, N Engl J Med 2014;370(14):1883-9685) The normal value (reference range) for this assay is negative. COLOGUARD RE-SCREENING RECOMMENDATION: Periodic colorectal cancer screening is an important part of preventive healthcare for asymptomatic individuals at average risk for colorectal cancer. Following a negative Cologuard result, the [place] Cancer Society and U.S. Multi-Society Task Force screening guidelines recommend a Cologuard re-screening interval of 3 years. References: [place] Cancer Society Guideline for Colorectal Cancer Screening: https://www.cancer.org/cancer/ghkwp-xexkku-kkdqom/sadqyukxz-mvumjiukd-webpgsc/ac s-rec ommendations.html.; Fidel GEORGE, Joann العلي, Maribell McneilK, Colorectal Cancer Screening: Recommendations for Physicians and Patients from the U.S. Multi-Society Task Force on Colorectal Cancer Screening , Am J Gastroenterology 2017; 112:3770-0895. TEST DESCRIPTION: Composite algorithmic analysis of stool [...] Hobson et al, N Engl J Med 2014;370(14):6293-5403.) Cologuard may produce a false negative or false positive result (no colorectal cancer or precancerous polyp present at colonoscopy follow up). A negative Cologuard test result does not guarantee the absence of CRC or advanced adenoma (pre-cancer). The current Cologuard screening interval is every 3 years. ([place] Cancer Society and U.S. Multi-Society Task Force). Cologuard performance data in a 10,000 patient pivotal study using colonoscopy as the reference method can be accessed at the following location: www.[employer]/results. Additional description of the Cologuard test process, warnings and precautions can be found at www.[employer].com. Stool specimen (specimen) (Rectum) 06/18/2022 5:30 AM CDT 06/19/2022 11:50 AM CDT Marivel Andrade DO URINE Final Resu lt [facility] (CLIA #:[id number]) [place] [place] [address], from Last 3 Months or Most Recently Relevant to Health Maintenance Insurance [employer] [place] BLUE MR PB ONLY MEDICARE PART A HB ONLY MEDICARE PART B HB ONLY [employer] [place] [place] BLUE HB ONLY [employer] [place] [place] BLUE HB ONLY MEDICARE PPS Advance Directives Documents on File Type Date Recorded Patient Dormitory Counselor Expl anation Healthcare Directive 06/28/2025 2:05 PM [...] Code Status Discussion: Reviewed Preferences Care Teams Internal Medicine Physician Assistant Relationship Specialty Start Date End Date Votel, Axel Thomas [place] [address] PCP - General Family Practice 01/04/[address] [place] [address] 01/14/25
--- NOTE | 2025-07-23 18:36 | ED.GENADULT ---
HPI - General Adult General Chief complaint: Shortness of Breath/Dyspnea Stated complaint: cant breath Time Seen by Provider: 07/23/25 18:36 History of Present Illness HPI narrative: pt here yesterday with shortness of breath and hematuria, today about 1400 breathing became worse and low o2 readings at home 74-year-old woman presenting to the emergency department with complaint of shortness of breath. History metastatic cervical cancer. Recently was diagnosed with DVT in bilateral common iliacs and inferior vena cava along with numerous pulmonary emboli along with pulmonary infarct. Initiated treatment also for urinary tract infection in the setting percutaneous nephrostomy tubes placed for outlet obstruction. For this UTI was seen in emergency department yesterday and given a g of Rocephin and initiated on Bactrim. Currently taking apixaban for anticoagulation. Has made a number of visits to this department over the last week. Following initial admission and heparinization on 07/15 was discharged on 07/16 Eliquis. Returned next day with oxygenation in low 80s on room air and light hematuria. Repeat imaging noted increased clot burden and indication of right heart strain. Was initiated on half dose thrombolytics and transferred to [place]. Was discharged 4 days ago and has continued to take her Eliquis. Again seen yesterday in this emergency department redosed with Rocephin and Bactrim for urinary tract infection. She has not noticed further hematuria. Today about 5 hours prior to arrival began to be more short of breath noticed particular when trying to go upstairs. She is not having chest pain. Still feels a sense of pressure in her low abdomen. Arrives here today with oxygen saturations of 77% on room air. On 2 L of nasal cannula at 93%. She also is tachycardic initially 107 Related Data Home Medications ?Medication ?Instructions ?Recorded ?Confirmed coenzyme Q10 100 mg capsule (Co 100 mg PO DAILY 02/10/25 07/15/25 Q-10) omega-3 fatty acids-fish oil 360 1 cap PO DAILY 02/10/25 07/15/25 mg-1,200 mg capsule trazodone 50 mg tablet 50 mg PO HS 03/14/25 07/15/25 carvedilol 25 mg tablet 25 mg PO BID 04/28/25 07/15/25 polyethylene glycol 3350 17 gram 17 g PO DAILY 07/16/25 07/16/25 oral powder packet sennosides 8.6 mg-docusate sodium 1 tab-cap PO BID 07/16/25 07/16/25 50 mg tablet (Senna with Docusate Sodium) Previous Rx's ?Medication ?Instructions ?Recorded apixaban 5 mg tablet (Eliquis) See Rx Instructions .Route 07/16/25 .COMPLEX #74 tabs Allergies Allergy/AdvReac Type Severity Reaction Status Date / Time ciprofloxacin (From Cipro) AdvReac Intermediate Diarrhea, Verified 07/17/25 12:55 calf cramping Review of Systems Status of ROS: Reports: 6 or more systems reviewed and unremarkable except as noted in History and below [facility] Medical History Lung consolidation ?J18.1 - Lobar pneumonia, unspecified organism (ICD-10) Complicated urinary tract infection ?N39.0 - Urinary tract infection, site not specified (ICD-10) Ureteral obstruction ?N13.5 - Crossing vessel and stricture of ureter without hydronephrosis (ICD-10) Squamous cell carcinoma of cervix ?C53.9 - Malignant neoplasm of cervix uteri, unspecified (ICD-10) Hyponatremia ?E87.1 - Hypo-osmolality and hyponatremia (ICD-10) Pure hypercholesterolemia ?E78.00 - Pure hypercholesterolemia, unspecified (ICD-10) Essential hypertension ?I10 - Essential (primary) hypertension (ICD-10) Surgical History H/O insertion of nephrostomy tube ?Z98.890 - Other specified postprocedural states (ICD-10) Social History What is your current living situation?: I presently have a place to live Problems where you live: no known problems Problems where you live details: N/A In the past 12 months, utilities in danger of being shut off: no In past 12 months, lack of transportation kept you from medical appts, meetings, work, or getting things needed for daily living: no In the past 12 mos, have been you worried that your food would run out before you had money to buy more?: never true In the past 12 mos, the food you bought just didn't last and you didn't have money to buy more?: never true Highest level of school completed/degree received: Bachelor's degree Smoking Status: Never smoker Second hand tobacco smoke exposure: No How often do you have a drink containing alcohol: never AUDIT-C Alcohol total score: 0 Non-prescribed substance use: denies use Caffeine: Yes (1c/day) How often does anyone, including family, friends and others, physically hurt you: never How often does anyone, including family, friends and others, insult or talk down to you: never How often does anyone, including family, friends and others, threaten you with harm: never How often does anyone, including family, friends and others, scream or curse at you: never Are you using contraception or practicing any form of control: No service: No Exam Narrative: Exam Narrative: Very pleasant. Labs easily. Good energy. Does look rather pale. Mucous membranes are pale. With nasal cannula is mildly labored with her breathing. Lungs actually appear to be clear. Heart is in elevated rate and regular rhythm. Abdomen is soft nontender. Extremities are warm//well-perfused. No significant lower extremity edema appreciated. Port in left upper chest does not appear to be infected. No significant erythema surrounding bilateral nephrostomy tubes. Const: Vital Signs, click to edit/add: Vital Signs - 24 hr 07/23/25 18:36 07/23/25 18:37 07/23/25 18:49 Temperature 97.1 F L Pulse Rate 94 Pulse Rate [Right Pulse Oximeter] 107 H Respiratory Rate 30 H 26 H Blood Pressure Blood Pressure [Ri ght Upper Arm] 113/80 Pulse Oximetry 95 77 L 95 Oxygen Delivery Me thod Nasal Cannula Room Air Oxygen Flow Rate 4 07/23/25 18:56 07/23/25 18:59 07/23/25 19:00 Temperature Pulse Rate 91 Pulse Rate [Right Pulse Oximeter] 92 Respiratory Rate 22 Blood Pressure Blood Pressure [Ri ght Upper Arm] Pulse Oximetry 93 93 Oxygen Delivery Me thod Nasal Cannula Oxygen Flow Rate 2 07/23/25 19:01 07/23/25 19:28 07/23/25 19:30 Temperature Pulse Rate 91 Pulse Rate [Right Pulse Oximeter] Respiratory Rate 10 L 24 Blood Pressure Blood Pressure [Ri ght Upper Arm] Pulse Oximetry 96 95 Oxygen Delivery Me thod Oxygen Flow Rate 07/23/25 19:38 07/23/25 19:39 07/23/25 19:45 Temperature Pulse Rate 90 91 90 Pulse Rate [Right Pulse Oximeter] Respiratory Rate 22 12 12 Blood Pressure 98/75 105/70 Blood Pressure [Ri ght Upper Arm] Pulse Oximetry 96 96 96 Oxygen Delivery Me thod Oxygen Flow Rate 07/23/25 20:00 07/23/25 20:01 07/23/25 20:02 Temperature 98.6 F Pulse Rate 89 88 89 Pulse Rate [Right Pulse Oximeter] Respiratory Rate 20 20 21 Blood Pressure 100/73 Blood Pressure [Ri ght Upper Arm] Pulse Oximetry 96 96 96 Oxygen Delivery Me thod Oxygen Flow Rate 07/23/25 20:15 07/23/25 21:01 Temperature 97.6 F Pulse Rate 90 87 Pulse Rate [Right Pulse Oximeter] Respiratory Rate 23 18 Blood Pressure 116/77 Blood Pressure [Ri ght Upper Arm] Pulse Oximetry 95 96 Oxygen Delivery Me thod Nasal Cannula Oxygen Flow Rate 3 Documenting provider has reviewed patient's vital signs: yes Course Vital Signs Vital signs: Initial Vital Signs Respiratory Effort Labored 07/23/25 18:36 Respiratory Depth Normal 07/23/25 18:36 Respiratory Pattern Normal 07/23/25 18:36 Pulse Oximetry 95 07/23/25 18:36 Oxygen Delivery Method Nasal Cannula 07/23/25 18:36 Oxygen Flow Rate 4 07/23/25 18:36 Vital Signs Pulse Oximetry 95 07/23/25 18:36 Oxygen Delivery Method Nasal Cannula 07/23/25 18:36 Oxygen Flow Rate 4 07/23/25 18:36 Temperature 97.6 F 07/23/25 21:01 Pulse Rate 87 07/23/25 21:01 Respiratory Rate 18 07/23/25 21:01 Blood Pressure 116/77 07/23/25 21:01 Pulse Oximetry 96 07/23/25 21:01 Oxygen Delivery Method Nasal Cannula 07/23/25 21:01 Oxygen Flow Rate 3 07/23/25 21:01 Medications Administered Medications: Generic Name Dose Route Start Last Admin Trade Name Freq PRN Reason Stop Dose Admin Heparin Sodium (Porcine) 5,400 unit 07/23/25 20:24 07/23/25 20:44 Heparin 5,000 Unit/0.5 Ml Inj 80 unit/kg (5400 unit) 07/23/25 20:25 5,400 unit IVP Administration ONCE ONE Heparin Sodium/Dextrose 25,000 unit in 500 mls @ 0 mls/hr 07/23/25 20:30 07/23/25 20:46 Heparin IV 1,200 unit/hr .Q0M LUCIAN 24 mls/hr Protocol Administration Per Protocol Discontinued Medications Generic Name Dose Route Start Last Admin Trade Name Radhamesq PRN Reason Stop Dose Admin Sodium Chloride 500 mls @ 500 mls/hr 07/23/25 19:31 07/23/25 19:36 0.9 % Sodium Chloride 500 Ml IV 07/23/25 20:30 500 mls/hr .Q1H ONE Administration Medical Decision Making MDM Narrative Medical decision making narrative: I would have concerns of anemia, worsening pulmonary infection or infarct, expanding clot burden and worsening cardiac strain/function/heart failure at this point. Collecting standard labs. Monitoring closely. Will be re imaging. CTA chest inability reviewed by me shows numerous areas of pulmonary emboli. Discussed this with radiologist. Noting expanding clot burden at this point. Similar heart strain INDICATION: Worsening dyspnea, hypoxia. TECHNIQUE: CT chest PE was acquired with 95 cc Isovue 370 IV contrast. MIP reconstructions were performed. COMPARISON: None. FINDINGS: Heart and vasculature: Contrast opacification of the pulmonary arterial tree is adequate. Re-demonstration of bilateral multifocal pulmonary emboli extending from the mid to distal main right and left pulmonary arteries into all lobes, mildly increased since prior study. Persistent mild dilation of the right ventricle with some flattening of the intraventricular septum. Coronary artery calcifications. Thoracic aorta and pulmonary artery are normal in caliber. Lungs and pleura: Redemonstration of small bibasilar peripheral consolidations, consistent with pulmonary infarction, similar to mildly decreased in size. No new areas of pulmonary infarction. No pleural effusions, pleural thickening, or pneumothorax. Lymph nodes/mediastinum: No mediastinal, hilar, or axillary adenopathy. Chest wall: Unchanged right chest wall port. No masses. Upper abdomen: No acute or significant findings. Bones: Unremarkable for age. IMPRESSION: Redemonstration of bilateral multifocal pulmonary emboli extending from the mid to distal right and left pulmonary arteries into all lobes, mildly increased since prior study. Persistent mild dilation of the right ventricle with some flattening of the intraventricular septum, likely early heart strain, similar to prior study. Redemonstration of small bibasilar pulmonary infarction, similar to mildly decreased in size. No new areas of pulmonary infarction. Case discussed with Leonel Pathak at 7:50 p.m. on 07/23/2025. Please note that all CT scans at this facility use dose modulation, iterative reconstruction, and/or weight-based dosing when appropriate to reduce radiation dose to as low as reasonably achievable. Dictated by Flex Gtz MD @ 07/23/2025 7:56:22 PM ProBNP is twice what it was when last measured. Troponin I is similar I 0.07 when last measured at 0.11. Hemoglobin [place] 10[place] [address]. Will be re heparinizing. I did speak with [facility] cubing machine tender but with stable vitals and after reviewing documentation, appropriate for step-down ICU. I did speak with hospitalist who has accepted on a delay at this point. They will also be reaching out to IR. Did speak with IR as requested by hospitalist for a heads up if needed. Bed is available sooner than expected. Anticipating transport shortly. Medical Records Medical records reviewed: Yes I reviewed the patient's medical records Lab Data Labs: Lab Results 07/23/25 Range/Units 18:47 WBC 4.83 (4.50-11.00) K/uL RBC 3.45 L (4.00-5.20) m/uL Hgb 10.4 L (12.0-16.0) gm/dL Hct 32.2 L (33.0-51.0) % MCV 93 (80-100) fL MCH 30 (26-34) pg MCHC 32 (32-36) gm/dL RDW Coeff of Myrna 15.8 H (11.5-15.5) % Plt Count 93 L (140-440) K/uL Neut % (Auto) 75.4 H (42.0-72.0) % Lymph % (Auto) 11.4 L (20-44) % [place] % (Auto) 11.4 H (0.0-11.0) % Eos % (Auto) 1.2 (0.0-7.0) % Baso % (Auto) 0.4 (0.0-3.0) % Neut # (Auto) 3.60 (1.7-7.0) K/uL Lymph # (Auto) 0.60 L (0.90-2.90) K/uL [place] # (Auto) 0.60 (0.00-0.90) K/UL Eos # (Auto) 0.06 (0.00-0.50) K/uL Baso # (Auto) 0.02 (0.00-0.30) K/uL Abs Immat Gran (auto) 0.01 (0.00-0.30) K/uL Imm/Tot Granulo (auto) 0.2 % INR 1.77 H (0.91-1.10) APTT 45 H (23-33) Seconds Sodium 133 L (135-149) mmol/L Potassium 4.5 (3.6-5.1) mmol/L Chloride 102 (96-114) mmol/L Carbon Dioxide 24 (20-32) mmol/L Anion Gap 7 (7-15) mEq/L BUN 38 H (7-30) mg/dL Creatinine 1.4 (0.5-1.5) mg/dL Estimated Creat Clear 31.24 Estimated GFR 39 ml/min Glucose 132 H (60-115) mg/dL Calcium 9.3 (8.4-10.6) mg/dL Troponin I 0.07 H* (0.01-0.04) ng/mL NT-Pro-B Natriuret Pep 8280 H (See Note) pg/mL ECG Data Attestation: I personally reviewed and interpreted this ECG as follows: (Sinus tachycardia. First-degree AV block. Rate of 104. I do not appreciate acute ischemic changes/strain.) Discharge Plan Discharge Clinical Impression: Pulmonary embolus, Hypoxia, IVC thrombosis Patient Disposition: [facility] Condition: Stable Prescriptions: No Action coenzyme Q10 [Co Q-10] 100 mg capsule 100 mg PO DAILY omega-3 fatty acids-fish oil 360-1,200 mg capsule 1 cap PO DAILY trazodone 50 mg tablet 50 mg PO HS carvedilol 25 mg tablet 25 mg PO BID sennosides-docusate sodium [Senna with Docusate Sodium] 8.6-50 mg tablet 1 tab-cap PO BID polyethylene glycol 3350 17 gram powder in packet 17 g PO DAILY Eliquis 5 mg tablet See Rx Instructions .ROUTE .COMPLEX Qty: 74 0RF Rx Instructions: 10 mg po twice a day for 7 days, then 5 mg po twice a day. Stand Alone Forms: MyHealth Info Instructions
--- NOTE | 2025-07-23 18:56 | CRLHL7_ITS ---
For Patients: As a result of the Century Cures Act, medical imaging exams and procedure reports are released immediately into your electronic medical record. You may view this report before your referring provider. If you have questions, please contact your health care provider. INDICATION: Worsening dyspnea, hypoxia. TECHNIQUE: CT chest PE was acquired with 95 cc Isovue 370 IV contrast. MIP reconstructions were performed. COMPARISON: None. FINDINGS: Heart and vasculature: Contrast opacification of the pulmonary arterial tree is adequate. Re-demonstration of bilateral multifocal pulmonary emboli extending from the mid to distal main right and left pulmonary arteries into all lobes, mildly increased since prior study. Persistent mild dilation of the right ventricle with some flattening of the intraventricular septum. Coronary artery calcifications. Thoracic aorta and pulmonary artery are normal in caliber. Lungs and pleura: Redemonstration of small bibasilar peripheral consolidations, consistent with pulmonary infarction, similar to mildly decreased in size. No new areas of pulmonary infarction. No pleural effusions, pleural thickening, or pneumothorax. Lymph nodes/mediastinum: No mediastinal, hilar, or axillary adenopathy. Chest wall: Unchanged right chest wall port. No masses. Upper abdomen: No acute or significant findings. Bones: Unremarkable for age. IMPRESSION: Redemonstration of bilateral multifocal pulmonary emboli extending from the mid to distal right and left pulmonary arteries into all lobes, mildly increased since prior study. Persistent mild dilation of the right ventricle with some flattening of the intraventricular septum, likely early heart strain, similar to prior study. Redemonstration of small bibasilar pulmonary infarction, similar to mildly decreased in size. No new areas of pulmonary infarction. Case discussed with Leonel Pathak at 7:50 p.m. on 07/23/2025. Please note that all CT scans at this facility use dose modulation, iterative reconstruction, and/or weight-based dosing when appropriate to reduce radiation dose to as low as reasonably achievable. Dictated by Flex Gtz MD @ 07/23/2025 7:56:22 PM (Electronically Signed)
--- OUTSIDE RECORDS SUMMARY | 2025-07-23 19:07 | XMS_ITS ---
Author Name Interface, F8Ayzgfgd lity Address [address] [facility] [address] [address] [facility] Address [address] [facility] [address] [address] Support Name Relationship Address Phone Jesse Wei [...] style=text-[email or web address]:center>

<span class=clinicalNoteMacroWysiwyg id=[id number]" macroname=PracticeLetterhead spantype=macro title=#PracticeLetterhead><img src=data:[email or web address],sRAGIc8BYdwHHRXNSGeEYwGORCOVMZCnRAASGBI6H4vTM BVUEELVT9GQar1j2KBSZOTdAH9HZGOwiji4QOLUOBSMfXzEsmHHSsQJFB4PKXTeTqsSZFiVIYKLOLfr6 U1RaIH8BplVNdnviiM3P kIaLeEYFHviYctPEcvUKYPDGKYwHiTPLIweNxtCzIMrQQXZ9SqlZc0TAjaqK+u8/Bbb0rao3z40L89Ym dwexxtgxYaKGqLS1kaOw TDAYEhELtiBbfLkU2WdEPL5uN/bHrfJRNuVzKJfSHMukRWIDQZcMDMYRHOEzxQXm7LLqbYTb/gECxCGY KsEM1rFl0NvlZq0Hg6ck FqImWrbouLGoTAoh09XFzgjNAPQk5bxACNAxFntsLHeSs5eZ1pLjYjmTP2klBUQmfl71jhsddPQ5rwKF Ks7x4NNa0xjiVy62rGEX oIdKeYu5V0cApugGgBEBJq7LLcI2lzbfMz0pUxyz9kLJvAHNEfZkWnGqnqXCQqOvqX5oQ2ihy86cCBdZ /JtMDvvn5ITl2czg6Zi8 6oQw1x/sABhrlu+/frizf3570A/wFTQeGijNpxBu3gYGzWdxfjvYHYGTCJJ+AdQYHAQBQQQrV7+EU0e+ aGfYUqX69QHyjjsKd3Mo 00SIwO8Ehdzi8+gYHNM0o+xRx8a//4zWtqPVoPFAcTOv9+v0O1ELbcLs22q+2VsWQmTdaTQpK85iWrxx Tx++/btVL9+felnmOsJF iDMdUdGRgYFBQVJ/gBVgNmGeffCTabTAyUFMSzYU4U4Ii9wh0/TW5HNft7mSy+HryewnUZX8deZYDpdP DKzW5k4hxiubcMjZF4t1 Jptn28fR8IVub5H310dWfGW5UBWCUaeMRLqrhGxFg9wqQq6jX43IORtXjyJBQ+8ai72vZvYpAabqC3pu IEw/wpWrFhB8+fPp/Xr1 2PtBbNHrEhSXj02qARbwabnyQRE32OtYFoX57H/ackCljf5KrIGFITKkZAEvA1jRfJvKIIQhCEsKo7bc 18jeHmiOpJre3PoPYA80 VLtcFTKS9gbgi1ZMwBZxmYbptBCyaOJZmNg9Tm66rr6ODaVJdrZlUqikQeNX7z8/OHkITfj3oRcDn+6s 50ncrpmPlKloGLsYeR7H qVmYjJqHcGp00mLsKRCFyNEy5ttbM5XswJ9Nx1gy3d+ayo9QXIMCAVXfBKWNOarGtRi69//vhQmDFNQ4 X9msiVZsIWwKKJCE2SdG 7wYpK141dpwlzUbCCv57vvzBoK7V87pTh8n0r2pkj+uhZbEL1hucpoIj245Ct/ExsdwVw9lfKSTaCvL2 pAZLS3IELS4MQx2Nek5A pIioqLpu4+I5T98YfT2GT+gD2e+KlWZo1gCLB0UWi5I58I9oW7gI0Q6i++W1+rJWTaXIj89SO3lpZXsv qaOrVEVSGYPrdMcqwy4j KwSKsj4rnZ0sQeLVQKO1i6+o0Ye82dUH3KyFtbHn2069l/IMNadTzO+BEBJqdRv234TPwEOj51XQkTGM tnSt2/g6lqpZp8OsTLEj 2ObxUqqZAzpwlDxas58di/VZSgKbXSUvdNSqzGqdU9qWdB6KLy95BGs8mXpM1ZSBahKTxOZMhjdu39/M NAY/mZ6F1kXDXjSZulKZ +cafn7+pm8IOfPDzqBSJMA4VyCodBC5n58nc5MnRoWXI236O6LkzBNVKUElnQY1bOFVLEvv3RpBamJQm 7SiXN2DZn46DigPlqBVU 6W/cp47sQhiDbn32UctlKHH8dpTq0x/hRui7QXMGwyNp6HW9bzCW8zQgu0jtSzaKDTVy3JBDyPblCcm4 ehslyvC4Cv7saIwtf49Q d5rUGGNQIo8Y/x6jV27fYKVQNnEkBhsSkgEB7n++zos0lpipuQiZ3BqjZbESSwYLXCsLLOhcRADgjBXd QLWTZgIiMUPf//9dxXrG gy2//aam9I7P7MVokyiJIm2hcyX2qQVwU9xbedBC0v1joQQFMx+/48ZhUfJOr2eeRlKRNaLdkD27LRCZ vQ0lFgkl20+xZ3SB4QBn kQlPNpIFa6KRS1kmwwofdb3gMmJmdYVtIttlbyvrd5SYT+Ex+QXiX7/g+cJ1CScGCnDfDtV3DDJH6cwY lexBtqDgcwaIj7y8jppc Gw37JFRy9/S3IVgA7yBYOmWfqSwc+kH3SGO8XlNbsFX5AqMqEYr95rBqRtmG317aTa4r82gRaXmFQKfu Z2eYfUSt2BMsWLP5FyzS eUqVdQexwwdOlRuddeZO/RDqfRvjv1RyzD5SiFaZABFw0+iOMMYypyMxDhP3OetkxHZbvumWzITgAO4/ PhxGd+pXmQqx9egChHd0 qtdws7WjWqNoDSLZzxgoi+TQ04dL7FDMDKaIscfcLyfnhlNvA5BURqsCvXHwxdpDSFrDIPdOOapjme2p NG/j60QnzwUWu0feZl+c iE1tBiOXtCjORR061tDIpSWJId2SWdPxjQNm+1twfcNtjJIeb8SgBysxY/292CA0df2tTvCMQutZoRJW EG7AJqKJV9PCTzCSt6MT qJCNrh2i+mbH5Tx375nE5911bjBZ2K7t+6w3y3Ca3vpXyjm/biOlTrDAOkC6Gt+6MzZAk25kdTUGtyF0 wERGTpyqWkZlJCYRCdPn mp7Rphih1zXDXKi8cVb7tPglWK02upyF2x7tpkJNOJmoBCS0h6BQzp1u74LDVhjCM6UFvBHtjj422qIy rHFX3UrD4wS4CUjycDnZ WriwAA/ChCl+MDhwzTsiScoICCAbqhRnSa8+MWo42aUckmhy3/EsFHXFKGjmV1saQes7PaOWzQ3jAedQ 9TqKXoLo5ETEdwPFoRcb OGwtTr/oAAKDQ+a5uYVSDlCeZh9N8IwWtvDrVZUQ3luhGtf/rPogOoN9t7+gUUaHea56hnh98u2oPbnx SPmB84ns2dUoJsOuXsMG Dj+amnvPaGuOroQCfQGDZuKTHJlXLPFEXLf6Id4h8muuEfh7vcj4mUo7x2ZBDoNaZyV5tc0H6XFIWH9A wv7i9S4eJjbpmr95dQKx cNJJkZsT0lVanbUNsJupji7peN2CFcw8TvY32ugNY6/c5fRf+PKUzurSJzyfatlE4fqJmtUYSY1bOv6a mGY/X5FHNLHhCk3GIalr qJlH+eokDvffoex/nyxUEnJyZWqU7XiluZdqFdVagGbh7j6B1MQRCmLGI9IxxnLBDkdPwKsD9+BzLtpo +lwVDGYsYujQloy7m16a ya08344dz4umf+MkqVKSz/SHXA2LpXZmNNf4HGBoyqU3gfrMxKXBH3Q5UJ/wrsaKhQkFLNkg8ASz5jLI MS3oLPB53rTC3yuwvP9h nMLbVy/gZIyDWm+tnrEKWCWgROI92GlaRS7wsUsBwHfdRFjraQ9+UPPYxBCv4AdkOAJe/wpUByTkJZJE 8gDpmtXM1lXJIwDrQx44 +9XIYbJ//NDQQDlvAeJzKECbnV3dDrPPbnWCTi4wfCrzO/KaAIdvZxHg5hXQav9REM9rQ8qV1sKqKCb9 XGJk5ARO+YUVJd3iBEc6 kYjG2TJw/8076f0a7p1qnXZuV9WKIdRB6AM+w+Ge0T1ZLOS3EJkn37JJ14qXXXvUGN4+w+L1OIEKEfwJ UaLHKXEjTiYmgmt6umOX TRmShbOegBaCKBuvPa3v99eDYp2UUrspQRJoyWXZNybdcaOyF5tQxMtQYRlt4q5KB7R2YcG9mX4rUu8k XSj4FxyzEx+nurUrUcLl pBVChlm9K/jcsU1Ug3T9pniybf3PJtYNbTsHOEe8IYJL1jAaM/BKLqgPjMVqyUS3Ju4v3phq1Yk1I0zm hATVsSMV7pR2+QWVkxYX 2z0ZClKqwz/BbNU58soaheWa5oH+IxBP3WvSWDXQwP/NLw49ZCmrAELxbJ5Si27MU3GGE729ynON8vV4 XUlMN3mrUduh23UhoXn+ zZD8RPUOBkR5uDTQ5xy/QzNJ2CXbvGmCn+eTQ89+YO8N45bSSzkdBj15Oehdw52UFSUWyVAmp2XYFlUk bFXAmjHuWNzVtvJWu6Up 4WGhdGvew/Xov1kAW614ZIeVDccRXineiQUhOehOFj9LDWaKv6Uo7aRGsax+4id1whW3T74O3DfUwTaC 4AhgAriulHF3AjR3+bNk 36GyY/nRRmZH8JUyywpfAO22p/6ZbrvqdEUd+7fLGnUuYvkLLxSxpMs5OXjkGh/lk4nZX/aCRS2mY9wX 6y8LnSP6h3wh5QVImFpS MjiA8OmNQWtRSPuyYwyXn2jCRvy9TvzJtQANEtX22FOqaQjuy90d179g5b/plgU1CKMNsZ8CgDPU6kgY ztJk7zDhTqFynW9lSOaF 2p3TKgQYi+iv7VRs/FNNHXtFrp0+hz6fGT/BMLhPQbbsGQpX67KJub1WGBPBOTBky6+gQEUEhIgKuYwU DQmDGbjFQ3QVfItWuhQP v43lnR/rv3v9FBFAThQtc0Q0DY3/HIXSt3VcIbAGJU1WKGwK51K2WhhzZhBTwNt+z8p/dOYlmF9VQ6/K iGsXV7j31nL/k9RuoGxs uRHuAuLyXcMHDhQ+UdGc2pAAm23VNkLJXQtMTneyjbio4Rwj+X+nsBrtskHmWUABVO4dRc08poLGnxMJ 7ud43CyWxQj4/kPg+U4d 8V0sAlJ+LhLdM/uz9NogXrPl2IOKq0/1DC5r+5HsgffXWAQF1uvvy4isKHV1vxH9N+gmlN89IDDwaRHF JOvgEns/Ukyer6Rl3nhg laNYuBcxI9VZekaYFbKxZfIYw4oYev/XEJHzsRRTOFgeuPtObR+cVa9E9swoLtabQEjHxbNRnxlupQR6 KPCgkDxXaWdgqBS9057O x7NeKkvLxBx7Q5I5VOEcvodAVlwdKapvZb9OCcwV3ukjRHg6XtMubBXcigEYURYE9gm8EJUphDOLERmW DMfbmSAbfu6DZXbIMLkZ VwjQWWq1nIbRBhRmYcXPbXZprfURreedapdEbJ8Xp9bBHvtMs8OUr+Q0nCmMGL6S082H2BE1dzqsd5Sc IG6yRe0GW/znZh0ZCRmP ZjvVRsBrIXwyCL7vEmPqcuNN8zvSsSFpUP/32Qn6cwjVJh7mgjQu2EMnSCbxfEgxqoIisSpwbNqlJM9h Gne8t4+UVR4RK50xBP1k 1KiAsIMXmHsGejtZnOwRbn4Zpw9/h3Q6a2UAY2zDAbUAtpW5ZapCUX+EfFSapexUQ3j2fi/Q5iFyvtIG VjsevSNOgwVlvt01pgaR x/G7C8IpZW0TjahYHBThMdeUQV7AVkHzEfEbanxgI1ALjGGHknzzFb47NM+jzpioEyFOOLBA9PLLs5PL Rj/fQTAcZaTPNODrLq00 yalS4tQixzMGx9fqIrH6ILdCJBalodvWQQQKMzEc8XVD4a8uQn2QePjTDDNzNG6c+D+dnUgCeFX3GvZj GtVfM3pIIaXAhRQ7xILy lS/mNyE3Q4+bsiUXc7zbPUf7I40YLWiB3IGuIb3h+vn70/r7r6TcWblkKRSzzqYkjO0jBfPRIhV74MZc t8pwZsEPnXtH3R/rATi4 s3YXmJtJ48Fw4Ny82iVdshkxlgT/M582Rgi/AvoO41k85UfiPlH4U6WMcpiThZKJuHUVmERDMgSE5y5n kSAVUrJtzIAtPMeLM3Dm zZdpp8/EBIhJo3OVVIAEo/X9E9TqQB1pgVb9OXa3jrLhkSJRXCup2jmx0J6IaqlI7N/5g/qK2Ku4Rajs 3fd1d9nWB2uLbKq7IWdz Xm8UCTAv40Jioc6XB/OTesykmyCTsdXKT9o0H1tXNWIxS41iVXlXM4mqx4UrDcA1aDKvgGd4ALF/AELE CZfMWjQIOUj+v3GCsOSL bHjVIlh7IA3Efearyv2CI4x1APCNAqSfx2PneJnBu2gHbgdCChyVHhq1jb2bZ2a+Dc6/CLzsex3sQgCO 703k+rqW6ni7COQWi7ax +885NeeHTlF2LJmPakZsQBNLXmcjslyLZX8zpXT8NR+khuqJ6ByU0shIvIcOP++PB0/stzGcTqC51vOI +ESM6LIvPk7VOLufIAWB jS4uuwQHBgT7RWAK5ZJYst0RVUgfevZizJsA1BaJY1fPWsrm4IkvcO+LhYJBhZOCKMvUR9HizqjttrWQ tKOv+QV6AVbXUrJlMVnF mdDGwagm9FUrUotJeNUTmHrLEGWWJVk9UvNHIO9SkOnWHeWuu/XQLsB7tZKoFnlZNzsArQolrwMcgOCY jXg51YZZqHN7AT1kzRTH Jp7xk+n5NLNVg8SYpA5vYCe/krGoxWfEH+JUCWjWwjjJ3+vgwYkrkEKNpMhi7+kLCFEUoVASElOobtGm 3Ndb80ypqkInyGLiAJY/ ddXtIG3f0+VlrLrJ45xvtdnS3TUfVz2jBpYwyEq4+Esdras+khosSjVecYPjKVhfP9Z4IxQeg+xQoqJARJ7 my8CulGmdAzbrKqWE+6h do/CmVqoazsyki1IVnHvxMdro75GV2kPxI8k9UAFwt2DkuKuIZEVeTssREQqR2D+8g/UAq5jpfJdyXrT pfAlzg6OL3Lbu/tp29eG y+YPHc2SCWt2OW0NUM/sCEMgIiz7nYFWoQp/1FWNHd0T+nQpWWSCKbryHpKZsvrWxnrhVTS9Hm+MrJQ+ TptkaO24zh3m1Afycqju shUS6FfzgXdIH+c2PmGZgyohxV65HOX4up+/mP0lL0ryD19rQQAm5kUN7bZ2ynLEJBwWDIpVZ1e42vbb wQC8x0RRMOc5BatUiQeJ yYp64c7n4GkPsNlJEXAtSy+4Lo8sCzITPlvjl6kQgVmFZBNMIK/zHtL7r+vcuFNvqbqo6bRPkWjj20bb 3nioJZ7Pa1uDClPIX1U8 S7+CyLN4gb0q07iqXE5gslm9GuaNUWTugh6hzZnkYE48SaXfGSFLep6fksQ+PjBQePicHdbDUoWZ8hCI GRKmAt6b9DPO/+U+xkmP 2XJtXtGLI8+ANl7hjQh4ePDDOzKwsp24yiqICqUj8DBidiHwCrbzHTnkjL6LBQJDqzLepyRYW9mgm+MALTESE oIioHYWBweig5lfWlPQ0 0E528jVL6fhRpZLicJagcAP2VynASGJrRVWQU2ApBgKyRaP13RI976PU2mCoaShT8wOtQm9xoXNo+RPW IAw+MAzPVy225/T5Mnmg UHzf1eSLvr/bxBlBgVRpn+RoLfOYyEMzUSSTyh5tjg93ajxWHwq4qk0slZwqoRJdKTCMYetrXyqksvZK WvkyiC10AEZAREtQZurP uSEoIrVHgFG4PKob6AQgDGWlTwOS2XCPQTF1GesD1BaasMl4Gd6m3KbFjZdAXCGeGm+wWGFFHwQgB76l aVzXwF778UN2lyCV6Oek BfOYDKNaIKJnDtdOtzH4lQTvZSGbjwoSdun8wuW86wKGVYhZ8Lp5UN1l8J5zvPiJ9daIzkxL/mMholzg QUQWfq5Ko9GQWFTEaChb sRLJMf5tVRy9a9sArhiWrL3sNgj31DgZXj9cix5NQv+LOwkqkug7RsJJy+DIqqFSXhYGCWnpVOoqIBT5 Gh7rCm60IdB/zOCStZrQ twsjXTOdbEPymlM6LUqvNdzxl5OrP4+4LeU97fRwhXCp1IgJkgF6Ni2Vz0lQWVifE0cN6YHZelq5ARUg ljEyD2s6OeMaaVBnoWTz WnEODZDbW0imV4+xdT3ardPxk54CbFUG63gjx9buibCSCnkQkzbnQsAzvYMursEF4shwsSbnZN7acL2J 7B4sxpKI8ziJn//mlb07 ulxQhGvrU7TbHpoc5AF7jVSEo4u6W4zDyohjqAPaR5/aNtxwV8kfZC8SSWjEPU3K3CM/b6BL503iKQEC uPv6VS6j3iL92YaQZLX3 YiEGkoCgoXjSVOrD1AWZ3hj7puKuY4FJcrpfo6w1OmfKjBmYZpvgq04QHATe9PwdM9ORSk7w7XBoYsf7 Ny5k+rUqUMVb+tGN09+T 5drCBSA8w+ez9eizF/MvF7ucs1SsfvBMNQtWJNnZjjuro/GwZrh3mvtEw1WLvdizmiMNfCx6WPl/OnLZ JWBMwN0tu/Ve7jOQyVw7 Eed2IutoA5mV21MGke6yY9/1Z0bpFGUcXbTgIIxA+dP0dBx3Y5zhsoRO5mijwnFoZaR/cTN8tcGB+jkh i3k6494IO42II8CFWzrV iBMgeHTTz+dianne+++uwzo4FmihfU7TAtA1haxUNgVj4EuRZ8QMy4vtj43ncSOg49HcEWymb8MEwWjlxmNW Y2GMjenwabB62trZ8ajB jUWrlEzJX7SeZWA3U5jB+K1w+FTqKWgMx157+xH2ba9iVgvjS7da3sVan5oOyX4TGXroKr6ijMbczDPM b2MPmRDIO1vbzbSUcAJE SYfIO44bHCiI3WDTq6hZN75ivwdrRECLdHebIOcZvy03d2xjekH8Q+YbhMgqIVRjA1/fyFMgikwJFzW9 QB0r7Wl/sdPXd9Xr4szj vxnHqrFSzOlEzQz3AnrUZZMV5QMEYYNIP6HBl+QvsHzx4TOj0UIKLzx9CK451I85XWS95y8ss+8CBnpy WQIDanZ/L8ngezJLpCIl HexZPbCoAYmfubXu1Ako3clcEagdBlkgSOAzhMj/a5nJ2Mcf5fBUJKSsElNSk0+aOq5vXkh4XUhHp+7Y C6FHbyLX56TujizYtTsj OV5zUTmHf7/it3zg7wHNf8Z1qN4lJW4h3a0aT+fcUnOKLqHHunOhkSdB2KBzfRCnoLEq1jfwZaXXXXzW vsZg1RWGFrA0XQPIoDQA n+5XeR/TikzmA+Bd80lWnYKeLM07h/uEUB4Z9HzmAPh/VgQYTLFMjHnMgmpqKef868S5yQuHEOsX3JsB HSZUErNZ0ESpmiVPQiZf ZPF1BAYtvAcOIsaq72ZRlWf5c8Tj8QxOZseyv7CISWJrvY1V7X6EZighxnyAnJWKeTpQtYat4Marf5+J eJS/GjqRJVIUPI/I6nu6 u1R6s4RMRwdGXh9833czDdSTcTwTvzHOARae6BXSbmrYrPGrqaNCVU2uhQ2w9nairh+gZQgtCVQsmRJu WWYggBrIEyBAUubVKtWT knnzhlQxcXMJgm4qjjJqG3XCQ70hRyAOXcRYO1clPVhu7cI+CzVra9kTQPKGIUsXpOTUCZ6gMoE6Ruvo dZ+K/lCnRkFtVi0Muo+R wT8qOx/Y6AUd3bLPyUA0aAuNh+xxRcQ/uBg1NDtGcr1q3oOzu04DUH2PhPzQNbtEguoeWhzgbid0PLa7 K/29kSDKS08XS9xtmFJD RYgTIFCm/RGdBtAsU+/OWcuWdBvSpI8e4Nxg/kvems7gc70yKsAjseNwh2pspVufCHi0p+JWaWL/0PCK Csjjc4/NYDS//qm9Mzxz Wg34rldtmVuuYZTnkQ+kDj+Mh8cZ+A7bLIBb+/2B6iXgB0ViY37qzHF2tFNYk/5aFea1l6g/6gYSnzpC UpbvVLG8+gDDGH9W6etE MWqgV8DnIYvQzSkG1oA1F6NiJHGkAaJtLFHp4G+gdVgEiiAi7UZ8B241BGVmw2AhKRKBp6aVYTzRNv4V majkOCYAZmUNfuZHh71D 8C6n4q9egJjK3AZ5vFoTMwtGy8A5aRL7WWZU1Q7eODOlpIGSroMhrzt6bIg86rEXzRAvK7rw2VleLAkp X4Rn+gfQPGnjtuER/Pmz xCOHMrJYQNKOtI8bgWVrramqH55NLQIJtWfrgjw7dWyk8JPwXHfUokHuLpaAadFkSunCUJFJCVQGw6H5 JpT6nJMSbV4JkdNXFs/S unSBNiqCWRR+atsBUhV7zjmmAA/IYxtZMwQvY5OXQKZbBa3TJrylN3ekVoPpu7dFDgFDcZWCZgt7CwQb AKKzZtCEKwIF1XAhC+aN Qb7AGCckUFDYET93qBJOgOoPM3JMrR5GEYwwXcWJTFJ7IygrU5xuHinswixiS7fiQEnYjATt3qEMAh1Y klJwYA876pnOvU21lRzf 1ExZMRfIOOVYUTdmxKt/ZSoRBmimUIzmLmCqFgpom+AE70mzKdarCIwZg+dCKiXl1dL+y62uSs1gbLQW m9G5GQJ3eQG0VMRv07Ut IQoOuluAehDrLOx6MbPA1CtNg0mu0OVKdbEkfY5Yj73JLXYjofwwInjtxvWMMUdTyPDNHXHH+qFHJswi 6LpnESzpu6sFeAlyW6RL G+uIL/MLXYubKqE5v0UB23o+b6zVGcJ3UEiHkF/W+AGlL812YvUr72eOGs7a1GMt3FianJCT3FI6ldCW 3q7LhMhMq/Vk8QBz3dSU wyZUYG7NMJqvaBHMXXJjE4XmjACWuDbSIbUZOshbYkcDDWATVyVZVk4urTTEspqXyphGXRRdaC9QWGu1 FMQhCGYdjdDulFQdL3vS /YtMrb/JDAYv9E1RgKXQG4OBq5Uje1zOfL7kecCvthW6MbqY5dWVCcW33ZecCvoWkDNz+a+kDCiO/qQX +9DUOa5fUvLyMFtIgQdD LI31dAX3ZuiYeSK6+wpMj5+s1i7PDpzQaj36SY/zq1SFkxQXdgBbrBOg9kLrx+7KKl7VxlFQPU5J9JHY ksJKiSEQTLReVGh/y6Ex ou0drbn2N7V4P3zftCz2OShlsEbxBnrH2lFIEB5ed6CwIxdTPx9gyeKM7PULQHRa6DquA5HSw0yrKK6l h8xzLMZmA/nL0R/HbflD EsPX59tuz8Wlod9EBSsLMTJVVe3rcvwpfFbqhKjr9lObPBDQvMeIjYZt9UXTKqj4EaD9SuMCC3zVYsxS Dpg/4qI+MAgolChfYRFE c82GDKlOJXEvMBSp0XcSUg+UGakv03zryRKXtjRyT8QvVN5+Omnn+jPP/+TZugneSUIlEV0euDamk37A MpUHOxSuyXuxlvAr8GQV kGCJS174qX8KnIfZ+sWMZvYrrmZ7puLHISixac7FlieuLM+OqdWvwgxOSeobZSFEYj1aanfhWEQeKuoQ Vy5YoOr09jAqZwSrLhbA zeZMgLZbE1e5vqGosAlOpZ+A4aJUtxXuXEUYeC3zy45warI1h498J693HNWGQmjQ+KRMVBNTEVEtqmsT nU0vhHLxPovT1reLxCpg IXZJVaT2aNRMAdwnvg046BEJE+IstKNONlb0ZvLCFvTZVMr3MNJJsoUwmORL80/0sv9k3k906EWzM5+4 06kwYnAib4kQcZz3iXd4 Hw3tJWCsxIGZz6PYSP4o8toQOCUQ1UoA2rXtYLkPlAVZOJs7iickp/4U2PARSifEMGI624xC2uZ21+/r UIWIqNN+UWh6Ecvmc6xF tOmTZN+jBH3uFpJiA9eTrFwTacwz+uuu+xQLzq8FyGKrLROPkubH7rFR5Ftk5IBPRtOLZAqsJOYkFb5n javpGrVqtS+fXsaPHgwC b5QqlNYfFXHnmQJXzPxFHAgeRQGSGPsAYXHUFSWokBGw6EOlkOEv/yVBhNOKFoLY5gEDVwYSQ5QJsNtK IbxCRYgDMMwjE+wAGEYh uX7zgEYzeYI9oTqXYxNDQooDMDJJBrX+EBEFBEzOQEyTGfRn9CNPWJ+/XjdZsVqEItSm4nkuNC2gIMy/ T7C4ptVZZnqcEPSNfSRP UXFixenrKws+VRzw7rN3gLGw2kzd64a092icxz45mkiu4SVL62AGmituUEHxdLoNzFVjTQXpZd6iHZBh tSzZ0+jGRGYPn8s+ROPB Uhiu96D80tqMt7zb1fK3iSWgCklXbQo8IDDHhRam1xadybcrZgTjenBih4MF6+evvjiC/7SG/Ue6tUXE 7DnD2DIYcixMf83zYdqu ihEOE76zGl+/wsvugznenlnNwtG38jLa/vvv1+GGSa/9hL2VSt8r0cy869KYTVQNFwEy0eYbPvpKJLPz Xyb5kEKUJr/EytWrKDu3 zgSP2Jdd1/+mSpWrCjDjvjvf/1Ukl09qEFMLFxCDc/ugOdPd5XfMF77Ib9lmEFDh63KmSQIr0ZsVXiLX 8KrnDz8WG88nPBc8VNz+ zqHRt4KJ9e06Eayxg/+bE25ztF8sPRjRxskuUjU3jZDw9UXrZlae4T32kMD4qoWWmRRBMKfB1n4CDVms rvMneMsdwkbs2qkMfejO IAPiXTOxs16gWOeCHgAXH48CvlFLRQssdAjjjJZJo3q+MoR3t6P576Ta8iuU3CBbQZGpYQmpvfDPpfP5 OrRowfVrVtXhUiOh/g65 qzgkA4VIuFHuQieAWyqRN+++KLyuQcvFrSPm2++JnUUkYng32/jev/9/qRJgYhW48wXUtTbVxVHGEba6 VTIO95++76wG7wHsmTnV cw/o1tK7Va104AfjNqEfy5gBbkRYSXimGmosHsZ47e8wBYBF4gFdFAXCfslihmbxlmpeH1dn5KyQtJUL ETYzH/PE7hAxIMQpJPRd 087zaNry3OhIZoLRLRXzlCe057N50KP2QyZX+/bt0+OxyAd+zmbGZpAoHoN0HCkDlA8Ndwq08EIyGUFZ 0VVnl9hFlEvQMaAbeGFd TJlpMN+3Buc63//+038y3qeRtj9PB+PNs7lARSZWRbASwgTeKOKDSg4cXSOob2zwa+KJoLw4J429JBDm CUv6ktxAguMkNl10MS16 htcCK0lccVYyuvsq3+tUrgHx+Ie4jfg/yhXCue0vLOEXtXOdx13MmO8l0FObH/2n9zm4xM7U/7880+aM kDPLPl8RZZzz1018Nw59 lzzIRvqwWscugilqESLqQmgC19ZnIuvZcHtP5szhQD8O3qCp4hcvADsnlkT9DHy/fXXX/SJbKfWM11QE OymXJnWCYLjU0TO7eBNT 7x9KRygvjKGO10iclktq2/XmAVFONl9bNfdiodf0bNeok62tnHs2fAdm6jevpMiRS97YTC4f9bl4JDRx 2kEhMxrWd21Hjl1nwJ3W jb4uCLBMCQ8uN/kj35bUYnnePhRYw8JR+E9wfuN+57m6gYpehmVG0qj1gAbJPdUifDu+zss9ADDHR7bM aVwgXgpvUKcDAJH+sWJp F+9YyQlsHdLtE301ax9oMPyTF4BoWv5w9iBB74xhQvxGRcfZ94klxpEj5UmlPyPBhBcePRCFtZoQ71f9 x6uuqsJSx633chGwsOIj Mkt7BSQn9qjqsh95rsibzKsE0++8ypSXFLRJGC3uuiqHeQj+++/Q1dDMFKk1XjdbXydzmX1FF+kdLg+I axs+4GvVNe3IeQdeX8BD KFFcgGjbSGptPHgBSNFcOuUAKNIlFwVHHAFTTtt7TSIrzfLPWhhYw1g2a//fePGG2+Y3bnip58y1hzLe TMdOPUW0HBDVioSZQpU7 fz9vtyfiN7z9W6rT3J5UdDNJx1K2eJy0y2AIEBx32nhiAYbqb4NhlQVY/tZZFCPC5TnWLgJpGGbZSM32 xOyQ4dpftcxOS8EX8073 cTOSwLmb6cHp3XRtPXEYXNu95075a8XZVZGEWaUq0/1Fsu3478hMYdoWaSzI/IjSTSVnXd1xbp+33nnH Vu5e+CZA5Jr44uhEzNi5 f391NgfhpI/e/Qqiii9YsiiRBicnLULczSv60Ovm/hZJXv3cPqBRpx97WqwZDxfHQDudosKIOkXB958g xTPAaDr2yNGabQpxCQq4 X3zbNp64+9ZP0t514jdiv/ViYa/8fjjj1/3cfYIrrML7WFOPLYcOvo0dsQNYwKgJZfKa0y/YUkWg2DJE GCA9P/+++85jvVUgGiee +5890W4Us2JItE56bWZRxdfauqXfCoQGqVe741zZ0Dk1yOlq96oJwk6PPRIFbROZ/aLlp+KuRrRwpdpR NwMguQRg6ZDMIfJiebJn bmrxtzDdoYeNMqYHkus1akoGXKCPsXLovNe4b9wKtptw7kBqxNREg6Gqe0O2wISBtrcxtBrW8nDWWMcV j008HMIMhKGRWhaZa6Wy k4Zojs8064sDjtnca53xZSo44IEXJlfSWnofCGKVbvlLxVMZm/w3quizoju7pOvhv9/FJl9oZbtcT09i scHdSuRToCBkDz6qul05 oKYhQjYxESjYM6q1zrJtzaEQMZzS5v4jiSZyoE3pwBLONzEb15dzGnlmUwbtnY2IlNlxjxCcFCKEwiUz Yoeghq7ym1RIT/XHUgnV AnWka7YKEeUkMKblsWqiffzadpIyKIoO4lcHP/i0Nw1797K2Uc7g4AHkBD5x2G1Zbjv5Vtyi93ZZHKYj QrVZcuWqdirQQvNERA8+ ypBUAoaolhjE14gl0bC1VsJsEmnkJJq0T7oI5vb5kqzojwjK8GYDjqJPn2cnduCeo7w29tWKzpD29CRY kCutCaANMjPk/fy448/t t3yilo18Pbn32/akNap9an8hAXvlQCImbJUXimglWptEJrqGC5HMqNKkTVP+EJae/F9yU7sp/ToIeMcg R4ZR/m4w+ye3IJYGK6Au V5jAQEoWztnCWxqV95mXxQgcYf97Dg4Y5ozOgDsrII1ltRTnjMECwwdfjwJAiP1qq0m+k2yY71svABp5 E1PhIUYqaF55W8zqlJud +dxCfcnfo9MsbrXXj+wzHa1CTCIF8n3yQFXMzUQ/dSN6j2Rq2vStbEpaDLaRi5beVpQJmwS9EwwZCr3n Puv9itMB71o9lq90Aw2+ uNgFr0e2ycW6k43q+ZW2266G1mzyeuGjsJcH+euwkcad+t8tiOCCLqm4F7yynqpTl1i32ERmteSi4Axh b++1763dcBRgl9h1eqQL o4yh9AXjd4Y409uT7n2bKWzyWBdx0xTzs89LXX2EdqBcLq2ZccS1mkKOFIwlLaz5Kc3KgSzv/112wXCO uwXou81WMF5FVOZ9zcSd xJCXQnzTPCY9q6O/9Fu8JgsaSpqXd7VnwOe1cLvph2F1EayxbBCLZWDcXjoX9YH7soMHgY8z9rLTQA5w 5cQ/eD6N+G+lPj87nzhP LWG1xlkYSA3FHwliau90n+4aGTCA8XmDEE8FoEnCd2wzSRdiPYBksQHFSSi8NRkGmaPHKekkwy10s4a7 xSAVTtpt03+WpD5D658R +qQV9vx5SfjwNvv59k4f8DHdmJ62akjsKTm8/H2yqu2WJfJ9JQXjzU6ZvxILULGevAzIif5WBJDjDemx ewLXpvxOmLEiBHKZ/Yesenia 91jVevn67+UAr6dBu2J1107mhWNCNMJW86YFz3Na6LDLxnDMFNpGd5gB869xqIrQTEqKi6op+uAVYivf TpirmLVkib9bhyB52BlW DJBel8m0EWXhtOU46fkrCxZg7jv24i9y+GdvXVBLX3oTjt/F9NAwE1ZxlYWT7PNE6a5k4eHQd/YW1D5g ageLw23gcbTzGrCuWy2c QMWNY7wWVVQBqWhamBCsGav+/TJ5SaXIDPDcnWea6QUgxZgDrSANdsMtbp7876tnYfL9lc8r1p OTOF0i2qP022Btsm4+z+ 2bQDfrhAaAAQzjXUQZrFVOJVgfBphbT5TWIWtmzroI8bT8AWiLFoCLM/yvm8bkNNi6mUygH4NDH1T1GC FpUyme+NO973MOWMQU0W ETQPn3Iv1t14trfUv6wTjT1mlSjmCcgrjrNGz92F4eMyk2FpdVSecvQcRGLjNsvXig/Ty4XyntMPDmQ8 HU1YrC5uy0abvEUmm1HD 1S+oCcit2DV8+bNSWjbKkTStNdbYHJt/T1Cu1U+52FhEz207EOZnKiLKeoWttNadwqp9rOF8iKSHQS1V VCJLZCP0dJh2CB79zOLh qLJc2mZeZyQeqNbuvIUK9/RQrJXK3jwtrSBlOrvQosNAShljJ78D5+7eFXp6bElOlkejxnCOIdjwORw7 YXDhw/LaZU9pEGilO7PL WINxFekGGPNcGqNYxXaY8bfIGgg9JjeEl3t1bm6o85gB9OZFfi4fWrGOF7T6d1l8uuLngoxRQJnOL4qm C379+1Qyuo7bmQIegnlK LbRhyK9tmk4RyABlh1lrMJO+pePxl0Ogu2kDXSc1vK30zzrzqHbRRZZuON60tjtdM2Om6ulprMxW37di BGw0tC6g9YQre/kmQDBi mMFgEB2qvfZoJYQuo9wVksafFozM4845liBQYKK+hC6SFcCrruRPYH89OY8xMmjK5egah5QTD5nJmxXV WHGDilD4lMXhEFxQeoeD GQon+esW0oD86qy1aAPwMdYzVdPiEmeKMma1uFyhju57I0jJ/hPqfUQfubJ9y3cJ730y/M4S3rCaSJYK c2+Y1lFigz9XgZa8SMK3 gGvcdc0LgitGMdVAu9BiSx7oP0L1Ye5nqk5bNr55k4rQXb9RuiXzzeFAYTRcxIOSt+1uSmnnCBU7WfR1 O5Y5VmKj3mG3m5o1HF65 qhyvF0fsoZNzVrbRfWOOKJrTp2rQK96kZMNnzDZaSEWywuc+EWAgvbLxKC6wDoPNyW9IrrfstbceI3iS RVJpElTI2QlkNTQtH0Xn Gj27YVmsuoowrTJ6n2xy4d+Qe0yYI0937si+ltvCibxMECIiK6T2KGLEPPWM6svzSEZiEIxniCsRGPZv uatg4EqdLh/jTPtBasva YxUkt894weRC8ed9J0d21jeNejecMsG4jlpzy5NeKzOEIRAIjElgNdszAA6EUjdv/wMtCWtIUEqf/jhh 9IPctOyQTeRrqjRrQXJD 6opL2KwuFXfdfSEo6LUqpZhFQc+f0EUtMHVKRMD8k7HxqZpXAV/ydXiiCU3znkDDSjOmBethHsQyk3f3 7XlNfYNJuvAqbflCddpb NcbFtFDU1MFJAa8aVx2nvWF0Zo6yf7tjhnCfUK2490bsp6OQin/o0Ff/pZPCiSgpDqFVAPKXkqT0QZBk Af0KrAYgq3BRJdkHY3YJ 7129GPwAUNrze5aR1bR1fFbzWvASlFrHtThuHX2lA72/NTenPwTZrwwaXWG/DNS4DxNaeGsRHd0Pp5mW F6j02ScAfglglXIFaRSS s5UqX0SFwXt4byUMgkEKzt0yN2OX6Wbuy10ylph1emjKZJmsSdgElXawuy3RzUwmKhkRAHa6vrak6tRH kpB5TkWC8jcqJB2QeMPK vEFLRbeps5NyjGdhwKYEOxSBOqZIOrDgF6Qe16lYAqleda6kSpDyIKCfdo1OmTIhO4b23GiCU9NpeiMh 9C9UEEra/FdreyEhI1Mj X80ZSGH+ogoF7qJQKfys9u9Ef458HC0GnJa5BfTzMZTAoACE7Mq0iBRJNJrcieGhDLa5HpwGagu+ySwz YAizApcbEsNkJwou94AH MwL10U7SpKDk3qr3nopbIBACf6vhzbeqhYnIV2HeNRpDfTfkAhn6zcAuAH+urYAXcnn82vGEtJqp1AkE 62AD6QMg3Et87RVjhY0p /322+XW09+ItUzerZzBOl5D2sj/8JuAlzyrXtAZ5P8hbMJZb0/ZYzXT9/CbWzuw4i6Yxa7tNrxs4Jqiz JfzzpW2P1/We+DJ/Uevi LQse5q84SyA5nwaxvpYe++8123udq62KfF7Ni9RCeLzmSkP1npw7nfxd/kUqEu22HCZBP5Ns6Y06zOUa EPEjW6LPyL4TEmaY5jFc QORUjvXwqjWAHFPG5THrbAf+BsW5nrlKswbT6JvqfDizidQSAQxd9FDWPwrI3cNdcUdoBjYteu6Y7Rlp SiGr7LIMj75MEtL28lCH xwUsbl2aenjNP44hLFyE4AU2tttmd8GmVkkGXht4YmkfVvEOqHGgZgZhfuf81kyOguFc7/k96JpnQacN f9j3m8rlxnaOOWmEzDGO vi70IDNddsfUKEk0qVs0DR7mY0673yr9DXilSKE16w78XfG5aEo324xPDUMBNPYTx5PfjX8HgFGjBtlA wzodcFckdcaiNcCRC+ei YgCuyE8EzqIT5IFD3bAUi8VB+/1sa+86ciArG9DdPCvZ6G+MI1AdHUpI1OijNcdgxRlzrJW5PrO7aHKV IVpQbHTrA2L+qUR8722Q vw+pA2k7nGBoHX9i6tjLJVr6BYr7lJ5JGiU39jr4+4KoCwwXA9rLKrtnoMMMRq1kww1ehYsiIcY9+KqU KGCV/gSy1fsfny9hLjLG NhWApvG1mZujLtcMPqyFBqbG9mT5itWzCWuVK8scRhp5f7bSotdOH6VowxuJyUaOnZcM6x2tex6B03n2 kRkeY5cFJyRXR1dYoFzY EYYD8B+wUD0+9ZF6OuaCwrE1zxXkUZEFUjMf/Ja89IO/a/q6sDdhiR4ecAr0d+ZU4hgoM1OFHice4sJ0 Q5KCErVu6v6BxFE8J1WG +I2r459uSWKlEJShdPvD2k///2owfPU6UVLR+O7R5ssTiSvt/rxRJaHUrqXwmiKjRv2l3SEMhsmxqCoM s1hxBRSbKQ49jk+4j7qF 1KnfMSzfrNLcv7Zi9rxZUDuAxxj1QUpHdJNNE5LvXahhKsiSBm2D4tg4bsTSoqEwANT8E8mRR5brOGd8 Xh5GqNlvjUCww952TApX 8wnAX809qISOoOzP36imeLcQUhX1LqOP0vo1xedRuBc3L+cjOsGUvVpsHP5r3C8gkdLWtf14DN+gxVr3 BwCPa9y91LcA30IU4IS1 Fs8PKNIzqKVsh9ZtdMDbk9M2iR9WFqmtfwiuxScMP+F5w1y5Alm3IGGTSOhCLhUvUX4wQlWZyWmDQIk0 4etb9Urk5dJmwUoDqad2 rJDLXRZN8FCNAbJEuKVfQRUJl+YpckKPFGRkpNNBlTLeu1k9PsVDFGlsDvBMIBuGTqcj9ZQdIZDY6G6Y Fe4gOWLhBTGayEVRnmTK CyRRY98PDzpVJXvRAGeHp4TFrojuHbvbwRJDRM1pBDuQLQKhzlcb2faYjcjL+xXB6i0FQ9c0W+Ia0D/M Qsz6WsH39wXe0G9Cp6mQ BDEm8HjjL/muofDqxYuA0S09QrxcwjA4vntJIxkC+4f+qxFK05+VSki1zbtGTRkGn3tHgrmiJLwA+sbx ED9lXPd6SdPCukd0hzBH zggAcp96zyi8yGiDmw1s8WBl2CEYWt/px8Qo6Q+QB77zXrRJ5LquHu7o+IBSOregU1MwHCBUg85+xpMn FEAbWCIWcfHwAgDy900m wNrITgPmBii4cYtko0mSEtYTLVhE8sEuk/BqR0eZruNqvS+sHkek8iUaeJis0bahOBAzzx0//770hQYH 8BM47PEdxtZTCAyBgV/G s3y1qI0d0yB6JYadEQsjAH35/jjmXOI07ZfaHne32z2ucZ3aRRJhLtJppCl68VvlT26nYpiMu+X7YGJN zpcTZNhelwzq4ZcQXd7Q ssbTjEejjRBhMuF0tB+8yTtsAzug2/kVsccOlUoEECoQVWvEGr5VNR+B6LnnIcGyeO7GvhSgpHWDkCqX BCGYRjm+oEFCMMwDOMTL UTTvtOXu6XXauJEv/rDUnAJXCvOZ7cERYxOUC9KHuJhBYpeASFzAPIyvS+yPUYLjfZ0xqARouUS8jTcT BiGYRifYAHCMAzD+AQLE WFyWJRrPLTtSAOgGgQLjVHAldRNSbKBinGUM1DYNHiSPBgIKYbGVYdbFmkGPFEuDE3nCeOaNEH5QJrBv kREgmp6NtKbqSJP+fn5k b+/y2peD0AIPktLizjpiOVUaBTNjfWKkzzZs8fHNeqD4l7fqeJyoon9xwbb9vPSX9ggP5tui11fto9X6 9xzD/Zt3tBrTtofDYrpL NNrdlh58XG+/VqoH0rwBroUlgMzgNbx3Pp7IXoOAJZ9IsnKnl4hOh11WYMtf4wzsFi96aLM+bdq1Yp+/ azonyeo16+jb4znq546A d1281641tvyZt3n551/GeoAka3dQH6c4nsgog3zIBmN8ny7K2dBaIafB0hW3gI6xLdTLo5R5+7I4fz/N KWA5UOUzKhHVcTSYoWtO YpQoUKFqG/kivt8C9mI7oaEb8EjbKNj82CCkm+jlcsxjBYkNQyNAKVOosBg31ALK7jo0Tjtg5vUxzage CARTHaZjrkbLm4MKa1QI DnFSX1roRTQHoB5Ha8AU6uuV5wPKOalqdpXDPlMRz+mW2+2IShKftAb5nKJP1Hhv/ktmr4vqAqBD+kTM 0mHVHF8+/btjX79+hm9e zImaJ28hBSC0GDMvg5SjpKcKYT16+ap0L+AeLb7zy2o6m0173HgmmL8BpoLPUQYeEww766/o8FRUX1mT DDQEIJYOoRPnjypUuSkc DLLjv8kBK5jB88MonJkAWttssVlQIhPNh50FGq8F3+VX3/3AbSaHxa4fwWS1AdPNbrmkwvU6uee1mnW5 Jl1v4VUhDMlqLg5QiI1e fvs7+g368dwDbkFr4/3YmHUUVaVcdztY3aUKCpgkNXhavHOdzc618cZazfSTS5ekxrPFducSdev3mCwC NxZljMkSnTvLocXBu6wS db8Zqce1waG49QkS2MrvlFLQFE8rd1ftGjEcENjT2eN/Si/8fwzWZVlH2/JvFu8aV7VJlkaL8b/T58+K rS8dBpPe8gGa7BJsJKu5 aoy/E283TRE5JF8SeFZKQqbDJ++RD5TWjVRNOKr2MB9J+YO54swUm5y+LHHHlMpcvLXX3/PgbiR5iM71 Usmc9jOujvlndwzgyXkt l/Rvv7FgQuFFYaSuj97oXO/9eXMIvDHU4Kzkw/1k08+UTEmlSpVuurhIPzLL7+mxGZXcNNqly3LPL+PK 67JJ458M1uy88BGMcgjA TtMeR9aMK3JU1Y01Yx2dIqmFAYBnb4xIN0//BOwv8r5FsKMVkwLaolNZgMuY3+bFrQITeZI0on72UMLH dOpKjhtYetKaFz5ROF2a lbXI350T2VXcNjnXxaNDiND6dQDg1Q12ZBpIDyrPO80zvXkSc2RCFpiu1iOUeYWLhDkhX+l5uDak6m9P dbs1lexH7WFME8Dqebeo HX+efGvmSYidBk8dqnUqmSSv4H1m2180b2cAt46d9W57Wa1XRTxKRhdF4z7F//8c+AIpSWAy573UQtp0 2+/PGrmpyg8erbV30nsZ yacJvtX1PKQCtL9nBiqk//6vqoeh1IYWhhn8uBvZyleLDPgmBNiiTljgfzQjrCE9BfFnmmfgmKjkIEgN OzVpnMkApMzaBzzRhP83 CQi1OY6yAtztE/AwDWa6He138nJ6O+++shz4fvQqV2tsLDrqbrmfoUhAqvqiqExFkOsCRcwcGQlfiLr7 pNG4QRmQZdKw47UfQUwS QeNBc/D0aIYagXRsJZzjxKW/O9//9Zu6CZsGzc3/C8ZXD1lF9XsGs/OxDzuZCgzzKIx1Exx18TXDAyEY sXT4aNls1vxgh7++KGxd SlS3YuSWyAy1xsvcXmi75qKk3Yfs42vE1vOzpiOJFxFC0BiBZewgAe8yzVawTwmoWf5LsfReFDlwm05E vNCB2YYZI+HN8UgF0qAD kQN4xsOgxA4uEIWhurA4HTVe8M8o6GlWVCqA+7/+evxAZd7dI/88biWuQPQEwF5//51JqVS8p0xmdgzD zLCuvMmRAY0RJXvyXsSD Xv328KfQk6fFFVxKV1/ULQX7kjPuOFEm2spXpxx1exGj0DENCNQnmyt2FOmaKRh3k579bOIcxTGV60+z nQsUCNATmNj95wFo059n 6leXr227pol5KNUpiNDaPAXwxUloGwZj/Bh9qVXVPCXuvNMgs09SWj4fbxlHq+1EiEhFM7D1LOzgaerc 12e9/7777ftx/JM82tEO KPslbqVGpus8ZYMzkXpdrjmaONTEpiGjRGTR8sJRHEXr4kvOLa7+ctdZks59pFQag5QUu9ljIPdIiXID oymOzK7gJK/b7gE8DFdx slEl8zlk1598sLCZf7PxTAMlf0uVdUK96nmnZua2G66nSJtitrIZWamQjl7eTfMv+uEgLTK90gvmCLi/ ve1P0HdWZfjFWLoqAT55 jsTIKhHsP+VI39YVaGtgrOXNQHDQti1YzJJMrFQ3sUetg//rMmMS43DrYYiQrtd6i010bC+U+jiOG/wL kNHHBQskANv4xrqnj9wW NGF772ohrYmiQpKdu9clGOMC+5c28UO1h7EKz50NSa9unON//zzzzKsQaWP+LwA+de5upMEiQus/LTDS 9oJVBV4Or8O/oYCpNt9l 5wxefJkl/j5ONA9Rzc+/Ic1yoWChon2eb3gZRrr4n174YrzwMSOZ0hsGVy9r49vXIKeklr++ecdXou+R jhUltYGgwaCyNGxAJVm5 15fKug4uhZJ8l0rXRU0F6rFmIbFMyM1MtDtMJWTtKZctk7HekZdcI/+2u9SHwVWY1Fx944PPCzH97vwu 9xaXf/+/VUqE+u+smXL2 vzQkJzhSoAAHA+s9OaTm0/CrXezsqIQwoDgkxGYmR4DkCmBQ12YAK4FdV4snkqg92KcQWn9ARZ+QaN3h X0K50Rzt/DDS6ioWMLpI ko4zqMUTs4xgILLGCCliJorvMnooTdssEAStXWavxCMd6gqpseiAHmZJrDKlKMUVVifzLXAgZVDN9IQx v8pzTZUV49AF5YzuF8// TP7Ro5AN4/U4hVhKhmlIT58ym5Wzi+LypgzBW39gRejIm6zOkok3zBJvRWOHAM//ZHOrWiBjIerYq3h0 hAO5lwBQpjUkrkdbHPMC 41rOnvO9mk7cY337zkRy9RbCoqWppHJC/TLL7+LeX6pEY1y1eRPkLONVuSbAZkw3xt2h4N4UTFH97MSd sHV/ncVHEaF8TfbWIiC7 gozpjItmVjjU3tkh9eFjm+wKzGua8a01w904tHC1HxHU50AHbmwTFZb7TNUAbuTLha2UtbKkhF4qMDQ+ 2XZTroMEGMH9I06AMfis 2iMemXFZM+2jcfZwwS3Z3SXj5+qB3RnqRJMXelke6Dg7cI++xVxzza7WbiPzBY5nSqqwLVcruJxAXhBx oh4CpZGYKxQgWdxIr3TN VZMK9PXfDffHbZPCbJf1bG84Vd4Ui5i7xJyNtTyEUxm4rjHTdAkwowSlX+Xt7Kwly9++knmc/ToURVjg fsQj8SGhw0rl+6KcQYsu Kj9HC48KWEjJiksA7Yg6ynGG/vuP11tyYgbIjLkvPRbiNVVilZbGDX30aGtvQEwCeI0EAr56uQtilDN3 CqbU4f021SvXqVV3V/v7 BhsAXr2rxDb7MLWAQWoqIaZuaVYJhtwEG24HURiUU/Y2bxVxeWTzg+OVoO3pVxwhHufvzXZWWGbvRGdc jCbiZYaNza90LyQgIl67 4duWWb6Nt5ZuWelKmeiXSuZsYpgZv7wgkyqQtglJqHxwcNqwsCd4DqgxAcnc6Fjz8MLPqoVTokRJ42Dr WxE0kIwHgSOoz2ZdAosI 4Tv7dib8wKjDHh2jjElqzbYKC7DS4+yH/fLlBkEqAmfs5H9FHicpqo1167JS5jAVwCOdnw+kT8GJ2b5B i27rHai2gx9DfUZlFrQj Atiknson/J2C+JsTLLAv9vRqrOur2sl3vY7n3rktFaYNAdlqs4aLy8RNPJYuzkSR8YNGXuJQ1YEAf1C0JArFKH JfBP54tBRWJKMCrJHqSE mqwzcQmrSzgXyADrsSZ9eKy7YwfqViNewf3M4CKCHTL8hno+N3rpJxbmveCR2X1LSXeCZW8U6ERruUKI YLcogdOz7cB7pDHipLly PiOyllHTdjhQtNcjhglFTRtPyybzdLoedSBhZnTYAiY8qNe/K9SEPfPCsvusKCYsdm1Jst08r2ji0lIR 1Nu7X+/jI2Hci0vIOyxe UBUM0fkARLTSNWa5p47y+3R4tIwJZhY8LmdSTkQC1PgBTsFOKxGU8Rk3SCbQWfl4mJNsyKuqr0CDa6Ra GlQcaExgXtRpUoVWSmhG f5MwBacR9/ujRfcPBG3ymFUgURWmJk1JbAZlLNnH8oc7l0P8cpWdXaX2ZvqGtjZG/CBEBYalaygMJESz 2Rz9xfl8IoJ7WtKwLWPH cTLn6180PkmxtKSZPXOQaUtcQHlRGTxCFQ2CofkqJmhuxRtyefLIGnPRIOLdVI2Rm9+ejz4lZk7G2a7h zf84wj7kvPJ0SqjaBUHY ++coiCBYEV65wRgHQs6fYseo7XRYfy78c/Ohmcfq56HejH25MuZ27GoKfrH9O4gd7WES6WOoxWLrmhJ5 MX5zOM47KMYNfmSehuSB 6xRWKbSszkI94rluwqgH/uuMJjOId5+7cEhm9A6p6Qa+bYeXrfazRDmFijoTVWarzlgKN620ffLUBFqL U9vfDxQ1+lZ3Tbu5qqUS 8Q7G/g61dUmFona8dD1uEdz6UzWMGB7VUSFyG5y8WC1TmkW22X/2U1b0+C0dpYQenpElYXAyrua9WF2/ 8ybfWmx9NhGp4P5pdVxN iTOc3iBXOe8SaGzMSiVu1RG9zcBQap5YPnMhqeojVk7AkM3cP88WfR1CfM2PZgM01rDM2oeGATdl1E0o nRheZfagp4/8KyBhl9NA 1ZqPHjtD8mMOWxUOPkM8jgQvTKx7Gn3MJW/7IvxtefQdzTYZGyZx42+ey80rbv45d4uOOyi6pHBqqKad loDidafSpFducHBlhtCE B14cV4WYF7LLZYWWU5FlKQD1JBpMrCqBR/M+7IxFNSyB5f8eDsOYf2BgLeGbrbmoE/p6rJknzSFjciAL P6xDK4uPUnCbNBbVT3Jm huutQDR1+zMGHXcYhkupVpGCB5WJzllS6kRRw1GE4UESIepjVxwMcsmwvjc7w/QagXpGMmfw0722tzFP iBo1mjXpOJEB2RTtq/+K I/3Fk/mQmC/p9fa8auiajDIR6VGFa10A7zBP4U/ouvmwipQk2idc0FaxYZLlqdP50ZFE9TMsKKl5xoSj SfK6geAohYoyqar8ztWR NxWJsrwbVqnNrWN1f+jm8S+qqV4al23a62i9TZzThwuD0Exl5qxCfQIsjC3YoR6wVAmD7MZQRLoW1aOn UMHp/4ynmJ1pT7o+1t4+ +23U/fi4fQ0T/FDBai9xfrzVMaFmNI90fICLRjW6v8j40CcZaiTSBBNDdNaX6sJzq2DgpoF1bHmFAdFb eQz6HHTAENUszbCzaHlg n79+ccLKAaLqr8NOVdGJt1CL95J9191h8geSBqYlMfkp/zLDZYl6W77N6Ossdff1jnoo3fJCG8xTIxZM WEKkOF74hnrt1QW5xfqK HBNl2ClI1pzjUuR7jtAi0G0zmPthIVTlZdoMlBbHEk8uyNCmHkDAglcjZf7ftD86OyKzhLhbuB63oOnf O4c3R/dXCBTnBnxptw85 5nvZS414tuY942pyL4AuXRKuKDV0BNZ52F4rlcQo2RGwVOk+aa5ixIRS/rbS5fY5oB6mu8j0RUnuUpDm YRngN/iCoz/6R8S5AL/O 6AqFy3r5J1iigxjPSaOncbkUuKCkdteTlOsr/cB9Q+6LZEG6/AhVyvB3WwxD24iVNAt5aGOIHGjrTQPC EIJi7/2c1tdhbhcprAwO cw/P7O1JmZ7XLl0gbzvoOqV1XknPM1TyKaxPzQqT0Q8nP24z2EvaI37WoYoUQifrLJ/FND8+/ckd441C 0/REIOHy6Ovuy5gOYQVd JqMLiBM+vkngIUHWn+wsGL+UdC3Fig4GTjkuePTDSBCNlg2wYsnXnjGGpz7hfTKf+ObmPaQEu0l36cUb fwfCLqAWCpy4UTJmzEKn idYgDAMwzA+cQVLZWpW3GbHDAnJNCeUlFYjRBMvoLIa/3Tu1KVZA424ATUHCSdXApMlOnWI></span> </div><div>
</div><div style=text-align:center>
< /div><div><strong>Patient Name</strong>: <span class=clinicalNoteMacroWysiwyg id=[id number] macroname=PatientName spantype="macro title=#PatientName>ALYSSA PULIDO</span>
<strong>Date of :</strong> <span class=clinicalNoteMacroWysiwyg id=[id number] macroname=PatientDateOfBirth spantype=macro title=#Pa tientDateOfBirth>1950</span>
<strong>MRN:</strong> <span class=clinicalNoteMacroWysiwyg id=[id number] macroname=P atientMRN spantype=macro title=#PatientMRN>[id number]</span>< br><strong>Attending Physician:</strong> <span class=clinicalNoteMacroWysiwyg id=[id number] macroname=AttendingPhysician spantype="macro title=#AttendingPhysician>Sarah Coto (Gynecological/Onco logy)</span>
<strong>Date of Service:</strong> <span class=clini calNoteMacroWysiwyg id=[id number] macroname=EffectiveDate spantype=macro title=#EffectiveDate>05/10/2025</span>
<strong>Referred by:</strong> Dr. Coto

<div style="text- align:center><strong>PALLIATIVE CARE INITIAL VISIT</strong><b r>

</div><span class=clinicalNoteSectionVisible id= [id number] internalbreaksection=false originalname=Chief Comp laint recognizeconcepts=true spantype=section suppressempty=false>Chief Complaint (Palliative Care)</span>
Establish Care

<span class=clinicalNoteSectionVisible id=[id number] underwriting intern albreaksection=false originalname=Oncology Diagnosis recognizeconcepts=&quot ;true spantype=section suppressempty=false>Oncology Diagnosis</s nava>
Stage IV SCC of the cervix

<span class=clinicalNoteSect ionVisible id=[id number] internalbreaksection=false orig inalname=HPI recognizeconcepts=true spantype=section suppressemp ty=false>History of Present Illness (Palliative Care)</span>
This visit was provided via telemedicine with the use of real-time audio and video via [employer]. Alyssa has provided written consent to conduct this visit via telemedicine. The patient participated in this visit, noted that her home health RN was in the room however he/she did not participate in the visit. The patient is located in their home and I, Dr. Carol Branham am loc ed in [facility].

<span style=font-size:11.0pt><span style=line-height:107%><span style=font-family:Calibri",sans- serif><span style=color:black>History today was provided by chart review and patient report. Cancer diagnosis began with development of acute renal failure. Admitted to [facility] with this December 2024. Found to have cervical mass and bilateral hydronephrosis. Biopsy confirmed SCC, PET showed disease extension into uterus, bladder wall. Completed concurrent chemoradiation with immunotherapy, followed by brachytherapy. Admitted with complicated UTI earlier this month. Treatments have been through her local Oncology team and [place]. Anticipates a follow up PET in June. [...] originalname=Medications recognizeconcepts=true spantype="section suppressempty=false>Current Medications</span>
<span class=clinicalNotK[facility] Health TroycroWysiwyg id=[id number] macroname=PatientMedications parameters=ListType:Bulleted spantype=macro title=&q uot;#PatientMedications(ListType:Bulleted)> </span>
Per outside Oncology note,
Carvedilol
Loperamide
Miralax&l t;br>Compazine
Trazodone

<span class=clinicalNoteSectionVisible id=[id number] internalbreaksection=false originalna me=Allergies recognizeconcepts=true spantype=section suppressemp ty=false>Allergies</span>
<span class=clinicalNotSelect Medical OhioHealth Rehabilitation HospitaloWysiwyg id=[id number] macroname=Allergies parameters=ValueIfNull:NKA spantype=macro title=#Allergies(ValueIfNull:NKA)>Cipro&l t;/span>

<span class=clinicalNoteSectionVisible id=annabellaio [id number] internalbreaksection=false originalname=Review of Syste ms recognizeconcepts=true spantype=section suppressempty=false&q uot;>Review of Systems (Palliative Care)</span>
<span class=clinicalNoteS ectionVisible id=[id number] internalbreaksection=false or iginalname=Palliative Care - Pain recognizeconcepts=true spantype=section suppressempty=false>Pain</span>
<span class=clinicalNotK[facility] TroycroWysiwyg id=[id number] macroname=PatientPainScale" parameters=LookBackDays:All spantype=macro title=#PatientPainScale(L ookBackDays:All)>3</span>
<span style=font-size:11.0pt><span style=font-family:Calibri,sans-serif>The only pain she currently gets is at her nephrostomy tubes. She will take Tylenol at times for this, 3z583se or 4d741yx. Feels that currently it is not severe [...] type=section suppressempty=false>Physical Exam (Palliative Care)</span >
<div style=vdwa-fimcw-zqoh:none>General Appearance: Patient is awake, alert and oriented, in no acute distress. Patient is dressed and well-groomed,well-nourished with no evidence of self-neglect.
HEENT: Sclerae anicteric.
Respiratory: Normal work of breathing with conversational speech.
Neuro: Alert and oriented, no facial asymmetry.
Psych: The patient is alert, attentive, and oriented. Speech is clear and fluent with good comprehension. Insight and judgment appropriate to situation.
</div><div style=ihss-llbuq-zeem:none><span style=font-size:11pt><span style=font-family:Calibri,sans-serif&qu ot;>
Comments on Pertinent Labs/Tests: [...] the guidance of her local Oncologist and [place]. Please see below.

<span class=clinicalNoteSectionVisible" id=[id number] internalbreaksection=false [...] spantype=macro title="#MyRole>Physician</span>
<span class=clinicalNoteMacroWysiwyg" id=[id number] macroname=LocationPhoneNumber spantype=macro title=#LocationPhoneNumber>[phone]</span>
<span cl ass=clinicalNoteMacroWysiwyg id=[id number] macroname=Locat ionFaxNumber spantype=macro title=#LocationFaxNumber>[phone]&l t;/span>

cc:<span class=clinicalNoteMacroWysiwyg id=macro [id number] macroname=NoteRecipients spantype=macro title= #NoteRecipients>Axel Palomo MD</span>

</div>

<div><span class=eSignSignature>Electronically signed by Carol Branham MD 05/14/2025 09:56 CDT</span></div></body></html>
--- OUTSIDE RECORDS SUMMARY | 2025-07-23 19:07 | XMS_ITS ---
Author Name Interface, H5Yzshivu lity Address [address] [facility] [address] [address] [facility] Address [address] [facility] [address] [address] Support Name Relationship Address Phone Jesse Wei [...] style=text-[email or web address]:center>

<span class=clinicalNoteMacroWysiwyg id=[id number]" macroname=PracticeLetterhead spantype=macro title=#PracticeLetterhead><img src=data:image/png;base64,sEGCBq1YCdjHKTLSKMiRLeDJYJTIEHVrPITAYMT9Y0rJM HOTLZVII2PUqw3g5TIOBZUpZI9ONWRexpw8DCRCKNTAvQaCxcDDRlDRJU0KDCEkLgbSVPiIDLWSMGux3 Q1OmOH6NhuGUqajjtJ5L zOeQgGLFJojUkaHHdpFQOWQIDCeCbYAYWecFnaAlXRwFYJZ3CebGo0JYyurV+u8/Xwr6ccu3u16F91Nc esepnawzYjJPrXF0zcXx ESZSArAFmwMvzImU9EhDPY9vY/yVzmXAXbWwWItQHQudWATYPGaXMWNVYCDobKXd8LLqsTYp/gECxCGY WvOX9tUq0YtnHi0Ww4hj UvEiDdtsoBUlIDis74XXoabMEBAp1xfXKINnByvfCVeOy8uH4sFlSzdAO4ssUQQktr15ohaegPO8clFL Iy6n9IHc8sbzCc43eKXX lEsWiDc9P5jFwjpGlGZCLz3JUqN6yfemGr6dUzrl4lZTvKNKQgRzVcMrlkNZNtRuhB1qA5uxm75cYKiB /UjURmcf6CTs7eih5Dw4 6oQw1x/sABhrlu+/yniqn7368G/qNDAoJkcJguEy7xDHiLblfelOUXKRCFX+AdQYHAQBQQQrV7+EU0e+ hSgKHuQ02VQgttlEz2Op 56ENiS5Idflw2+eELFN0x+xRx8a//9tKyjQRlWXSiPPd1+m2I1FZevVd22k+5AfNGlPyfTCfU99iSfpf Tx++/btVL9+felnmOsJF iDMdUdGRgYFBQVJ/zKCcNnOspjRXvgDStEUBWwNC9B5Ow1zf9/LX8TRjt9iLf+LoabfmMHQ9bcLYDaoL HVfT8e0qdfveeCjAG3u0 Ghuk70vN5UKzf2X337xLtRS6ADFTNzbZDJoudLdVv4xmHk5nZ96LKKpQffOHB+0il09wBaQsKdpxJ4be IEw/wpWrFhB8+fPp/Xr1 2OyYaURcMgGOp60jHAaxrobwXFV65HzGVtQ51C/alrMnyb4TdMFYEPEpQOJnN4rUaJfTSZYuGCvMf5mw 94rsQzcCsUhx4XhMRE81 WRyeJDOQ7vniw5OPaIPtcLdwpCRciHHZqRx1Tu66ab8LOoBAntRdLcczDoKS4o3/LMjWYew1fAuKm+6s 69nicjdLeKkmWYxNrO6H dEkIhTeNuIr36nCrKMCCjPRr9rjlC3KnkI0Pm1bk9f+anp2DCIYWXBLsTTPFPpgEoQy03//vhQmDFNQ4 Y8qpsPOmKBeMWFMD1LiN 6mNkO296bhvuvDqKBd88punJlE8R09kZy5h5z2vex+jfAtYJ2avtszGk505Su/JwrgbHw2kdZRBtRiO6 vJGPO3CTXQ4AIi4Fsg0Z pIioqLpu4+R6R31TlB6SM+gD2e+TfNBl5mCJW0ZLb0T76C7yA2eF1F4f++W1+cKYUnOCv05QV8rsSPia hqTzYPCORUTjmXisry6f DzPEyo8dfZ5pHiEAUAH2h5+u7Sq28xLH5TlRgsMx3201w/IMNadTzO+PITBreEz283CTpFJm43LGvYAT tnSt2/d5goqWq5ZjEWRk 2FgtQiiXGuuckNgyy21nt/DIFwBhEWSufMElwOxhT2iUfQ4OTt24SEu7fLeS2GVNuhSVpCHUuvhz54/M NAY/fU2P0aWSWnYZolPC +cafn7+ou3ISnROfzXDHCJ6RxEswVO8z58vt3DbKyDDI849T8EkpHFCKPMcgZO2vULISYmk5OjWweGHl 7RrLN3YCr67UrqTbeFPB 6W/pu55nSspSqx78IhlmODT3kkEj4i/bQct1YLHWotIw5ID2cbRH5yVco6dnBioAURTp6QGTnQhyRtg5 wzubumS3Hn4vyCkab09K a1pXAECLMb3Z/c3rY67hXELHYdCyAacTglJI4l++xii7atscjVgH7SbrHnDCIiCZXLgOCQgwZIVdhKYo QLWTZgIiMUPf//9dxXrG gy2//ffq0R3X2YYriswPJc7nihD0xPSnC0qmwuNS3u3maPGECb+/88SsBsENa2qiOtOYLiEvtT04SKCH tE7qRlzx21+zR8CM6QHv sBiJSoNXe4CQC7kbwzwxog9xEsKoyKIwFuwmdzjvb7OYT+Ex+QXiX7/g+oM5ZCkVAfNvCbM3XEEA4zjP xilOosRtqloVv7i4trxx Sy67FUTf1/H4SYiZ8bKVCgIwaJqi+vD3WOV8ImAzgCY5GvQjKIo97xSpWprC928eKj1u74uOaSlYVSqy B6aBbXYg1YMzURK0TlsP eUqVdQexwwdOlRuddeZO/WPmyEltc8QepJ9YoUtSXEKg0+kGNMJfjoAyJpW0GlqwiQDpbxzMnAVqXG2/ PhxGd+eJeKqm5ciHfMx2 jrqry3JuJlOaVZIGqlpow+CG76qG1WKRILoRloynUtiaikYeE1SYRkdDsJLzqlnUWDhGQAePYclduj0i NG/w21MxtbUBu5tsIr+c tQ4dRkRJbYqPXE364nPOmGGLAp9VNpHfjDCx+5kifcZkyEVuv7LzHvcfA/626AT5bn6lVyTIEumMeDGB UY7OJuQET3UJSkTJs0LY xGFMju9o+agN3Lq990qJ0100urUQ7X3i+3y2q5Lo2ppTloi/onFcLkDRAqE7Yz+2WgFEz76dbLTEuiQ0 wERGTpyqWkZlJCYRCdPn dw0Fypcv5qHUREe5vIo9wBxxDP45sipA7w7pvjZTSQqpEYX7x4YBvd7f63ZTRvuTU5LVwWNwko523lZm uBSK4TzT9xG3GHinhOyO WriwAA/ChCl+MDhwzTsiScoICCAbqhRnSa8+LYm41rTaznmo2/WzXGUUSTbuP2jcVgl4KiCDyJ3pJwuO 6KpALpXy2PZIkyWDpDir OGwtTr/oAAKDQ+v1cXDHWbYnKm3Q4PlMovOiQXFK7vgvNua/wFhiPbR4d9+rEPwJqb37bpk41o4gDumw DTdZ30hb2xKuMtPvRuLK Dj+btbsJgHkOveNEtGSCYjSVAJmBWUKWCXj6Pl0y9oehExb4lfu7zIb6o1HSNxNpZwT5po1S2ITAIY7B we9i3S6nPlkyzk00rRGy nCURxMsZ5tZmllCBiLasuy8qbS1CPal7VuU88axPJ4/c5fRf+XRJvjuXHyhmywnO5qeEubDJWV4kJj3k mGY/L1WYGCPrTt5XQnuo qJlH+eokDvffoex/lttMFiRlQTnF5MdbgXwtZjQukZfg3o2K8ICVIyOSO5EpitQDIppNgZqF8+BzLtpo +gzLQWHyTzdIeev7x49e tp01016hs2pdx+MkqVKSz/BUIM6LuRAeCWu0KDJbqqD4jeaCrCWAD6T3OI/tacnQrXeDVYdo3UAw6jKX EX0uXVJ27uPN7ssbuH1b nMLbVy/gZIyDWm+araRQQDEsXFE13RjyIJ0kyBuVxKqjLJqusO7+KIVOnFNi3NirQMFe/wpUByTkJZJE 6aKkwhYA9nEAZgWqUu63 +9XIYbJ//DWERXhlCaUzUSYidD5uNeAVazFXSn6bxYqnA/AeYDfaTfNu8kNJys6FXH9dD8hD8gKaWGx1 QDYq8ZQH+DLPTx4lUVp0 zNmQ5ZGx/3663v4c2j6voLUrJ5IZNlQY3WY+w+Gx5Q6ICHF1ZAxn91IQ48ySYHmQAZ6+w+R3MOFHNgmY OePXEFZkCkKabzr7jrOZ LJyGuuEywFuLPJkzKy4e95dQYw7FUksyKYDsyZDZOogflrRfT7eSfJgHJUyj7y6TS1F4RuG5uY7lFy3n HDf2UounIu+nurUrUcLl rDEJxtv0I/gltR3Io3G4gvmzfc8UTmPWbQrKUKi9HMAD3tQqS/WMMhgTpBAqjJU0Lt9m5xxc6Hz6I4tg lQHZhROR7sV9+QWVkxYX 9e7YToTbrg/HdGF80dqvslEd0jH+TuFB8XyOHRWZqS/ANi88ZIwdNUQviT8Fm08GD5UIG551meRV3cQ2 EHxHI8xaTmgz22ArwHx+ sBG7MYUPPhM0sONM0fw/TxRZ6DAhsXzCs+eTQ89+GZ1K45tNEcpvAv88Lctcj05MEBBBzAFwo0ZZHpUw uPCSckJyUYxHcyFAa4Bu 4WGhdGvew/Arb5jDX749MNsBGenPTjtlgGXdWpmSFj5PIRrTn4We2zXSdpg+0zo8jwE7W27O9RrBuWtM 1QtqKtwnkPP9IyW2+bNk 36GyY/nJZbPU2KFporhvHZ40w/6ZbrvqdEUd+0dAMmDnNfpHZxGbuMp3BNcvIm/lk4nZX/gSXU3aY7eK 5v3XxWA6k6vf0KFQwYgY AtvZ9EqTYJfEPMdyInhBq3fVLtn4KpwOkATVNeC74BZpaPclh16f680g5e/hoxX6OMCNtY1PhDKA8otR xwWb0gEqFiLofB6eJStB 8x7XOpWPr+iv7VRs/FNNHXtFrp0+hz6fGT/TEAcBFtwpDRoE54WPby9MOYPJTQFqh2+gQEUEhIgKuYwU EXlNTuzPQ9LYsBzHgrYE v43lnR/xr4j7XVBSEhHcw1W2NV6/QJQAe7FcWpXNSV8FJNyV68G7XrjhZjUTfSa+z8p/bKXybG8XL3/K xPjBW5d83mD/m6NoiPzh uRHuAuLyXcMHDhQ+CwJh0vNRl56NMmIDDIiZCnrojllr0Pwl+X+oaRuwmvHaXUQLDG0lVz19eeOYuiOV 9rv12VcTdYl3/kPg+U4d 1R1kAbC+LhLdM/rb5VzrQeKl7WGCe7/1DC5r+8LjsdtYWZED0fdkg2umOWQ6iwS5E+fyeY19MCAxvQZM JOvgEns/Cmred5Jl5voy ebBXsJqwW3KDdmhAIvKrQhIQe5yWgq/XEJHzsRRTOFgeuPtObR+lRk3M8damCczqILbYteGSvvnwyCA5 VHNubKvYyEgmeVV6623V o2FxVpbRiRh4B8T1GXWexstOLkjfGhtmDh0NUlqI0uysIXy4QzIdpHQouiWGKMCS8bz7MERckGHBEIlT ULbbcIAbkx7QQNyTZOwU UxoUIWe6qSkQGsVqSxGHiKPajwXZlzztgtlHcG4Qx2fSIjkIn2IVx+H6bYxONU1P432B4ZH1xrczw8Tl XW6gPg1MV/zgLf8AVHzZ GqwZMdCoYNnwYJ3qTpFlghFM0cfJxVTcSE/95Wj5hocDLe6azrJy4LJuIDxqbEteolUjvOgiwBmdTA9f Gne8t4+TFH1ZO68xUH6z 3ItOwUDAhRrYcmiDcRqGef9Wuc0/l8X4u4LBF1wDSwFIreJ1RcoKXL+KoOFwbkbCB0m2of/M9cKxgwRV SqetwPUPcfYdpr75yuoH x/Y8G0OuFZ1VbysMXCDtWpnXEZ7HPwOjGbKvciwbH5KAmQYPotihXd51QE+dpfkwLmESAOQA3GAQn0VH Rj/lIGFmVfMVNNBoRu39 doaW4hIfzuIXk3xlYaV5UYnQYRzrrqdSAOBMUfMk7YSO1g7rTb4DjZzRZILfZM9i+D+duWpShDC8MaXx ZdYmZ8kLBfKXcIC4eHCh lS/ePcN9D5+rxuYXy8hsWOr6Y44TSWzP9NJaIp7t+vn70/u2b0DbHrvgPOFyxxCaaB1nNqANOfY60EWm u4ccOoGBtFvX0L/rATi4 m0GRnXrM86Jl9Hk75lCaaddsezR/B258Zre/ZybM63v68TvtHnV7N6MNheeDnRPAjIAPlHKSYjZS0n0k wEREIhHzhGDyDLpGH6Qn zZdpp8/HYGqSv3WKFMTJb/H8H1MtIY7zdLy2IWq2unBjaEZUNWba8woc1Z2QjcyG3I/5g/lY4Vw1Zekc 6bw7m4xYG2fWoRw5YZng Xg3DCMMl33Qxnf7DF/HHrhpitkTWaqUVQ7n2X6uCUYTjA51gTVfYN2ibh7JxOuZ3zDPihQr6NYP/AELE CZfMWjQIOUj+g8HMrQSO fXqQJxx3UA7Gkztqjw3LO1v2YGRMDfNnb5CaqZhBk9tVdihHPjaLPzk2gx0pW4y+Dc6/LMwqxw7uNsZL 703k+hnM5hs2NPGXc2gb +552ScgQRiR2HHwQxcDiLOSHLruwlnaFOO0gsGO4CK+xuvqG7GxS3hnHhZuYM++PB0/nxqMzIeO03rFI +GGO0THnTo4EQQelBLGN gU0qgsYPYrQ1RDSE4GGOxa4HVAirczPrhBvC8EnVI9hHLdpp7PxrrF+XwUKFiVPBKJuIY8JurogjqrSF tKOv+NO8FOaZXqUtTVrX kkPVbwoo5DLlLfxUoCSKuZjEDMCZBAw6EfRFBB8FcIgPBfDfn/YUNdZ2rOKuGgdXLqtXwCxdcqKxyVXC pLu03ZPVvLW0GE3rxTBG Jp7xk+m3AXNKt8VQcH9yXAw/krGoxWfEH+JUCWjWwjjJ3+vgwYkrkEKNpMhi7+kLCFEUoVASElOobtGm 5Rur03mhneDssHDbOOC/ qiAkUQ0o2+EgkCzC26aghkfA6QHePk4zYtWolVj6+Esdras+eqpfHaEuqBKcYMgiP7W6GbWkz+xQoqJARJ7 cd4RspJtkTmeoDaPQ+6h do/IgKkkkdixot3ZJyUgdKnjy34PX1aOiI4p3BKZpy5TxkXrDZRSdEpvCMAzP3H+8g/MSa9syoBcnKwV veGqci8KU5Txm/tp29eG y+XUGu2ZCBp2TR5ZYL/jOEWxFkx4vXSYfVk/5AMQCk9X+yApBROQPkjxDiPMnwgXnyjzIXA9Vh+MrJQ+ GsjemL57lj1k6Qikjkoc zeRP9SfjbBpZV+d0NnYBebsqzN76HCB1xp+/wO6rF7hlA66hVOFn8bRL0jQ7ntTNXKsPUNcZE5z93eug oFK3u9RSXOi5NjpUlGrB dCz00q2s0ZdDtFfMNOAyNf+3Ck2hWkPXUcfyr7jGwLzDWFJZCG/zHtL7r+eywMKtyhzr7iYKuEyu07dj 7xfaJY5Dh4kTYeLKP5G2 S7+QaLB9bw5d20dxUL8frnv0KqpZZAAlsh6xjFfeAN39NtKhHSSUyd4cpyF+AfHOuXpcFylLYzKU4jXS HVFbUg4g8WII/+U+xkmP 0EPmFjLUI1+IVj6agOf0iRRDNjRsex33qyhZByTt9HJotyNlAiemNJxgxW0LTLPGuwQsffPBJ0dxo+PASHTO vBaqODHWkjxc1bsGqAD8 0J249gFX9mvGvVRgsJeyjFN4EscEEUJrBQFKI3NdZaTnDoN19IM176CK2fIlyUxM5vPgFr5fvXWs+RPW IAw+NHsWDs427/T5Mnmg GIgs2mBAmx/bxBlBgVRpn+PrUpPUiIUuVHIFds6vcj14wwyZUjy6qp0ksZqzcJWkFOBVUdiiUvalckVT GwexkT15VSIOLGhYPnqO sKVoKsRCrRS7QNef8SOoCYZeEjML3ZDJTFY6FhoF2VptpLd6Bb9m1HgSdKlGSJXjVu+fYEILLeCkV26u rYwZwP415JK3ljAV7Lxx SmRCZDNcMJCfTggJciD1kOKaLTQqbycVptr9pbK43zPXNYfS5Dl9TT2w1C8rpTlA5ypRfyrO/mMholzg MRUJmz4Gq9EVNIZRqCgv oNKTBg8rEGm8v2oJiwmEeR0mRlz42ErHQz1mlo9HXd+XImdhiaz1PiPCi+DIqqFSXhYGCWnpVOoqIBT5 Pn9bYx24AeE/zOCStZrQ daitEHKgpJTpfyQ8IRfpUkeba4ZqW6+4XpF14mRqkWHb8DhOgzH4Yg4Ha4pUYJfrZ7wL0SGUyqg2AYNj fmUxV3r9XpLdwFNucAZn UdECRWOlI6sdJ9+gdM7cvmHxj39TjUJL88szy6djxqUXYqhJwrceZrNxyDPfycTQ3bhiwYcsGP2gyA8Z 5A8cxcXK4aiOy//mlb07 tilQwKvcQ4DkAoil0HL3zKCDk8h8X2oBwzhvbBIrK7/qYzrjN9ouOU5XAUtFPU8Q4YV/w9SA610uMEMK nUy6KE9d2hS78FgPJDJ3 HwKJeyWtfQuHWNhF4RIN6xp4apXaL9KCyuboy4n5VswRaKaWGmvni34CUSJk3QlzL2LEDq9r9PLuKxq0 Ny5k+rUqUMVb+tGN09+T 8msSOKK8q+kp3kwhB/LaH1fju2MjniYECCsKBTwLafqzg/EqNkw0tyqBe1RTqlgvdpZWlCh1DAy/OnLZ GDQRjW5xj/Xc2tJUhOs4 Jbi5UiyaL8zJ75KYjf0zW3/8L4wgCSSrJqDdANxG+rX4aVy0A9zgfuLO7tabzjJbDlO/gSO9tfKF+jkh p2a8678DZ02HL2DVRuyE iBMgeHTTz+dianne+++pthz8SiqktJ0KEvL1whjQQhEu2ZaWI5GDk2xdx06xkFLr38GlYWfws5SJoCkddyXB T7BWmboanuH17tdO5bjZ mFAmoCuYI6DhIBG2P0lL+K1w+OOnMXtLc462+mN5if2tIdkhL3zq9wHyk8pVtK6XRDsuRr1oqWysaAQU l2CVfNEOO3gwjwTJdWHY VUhWJ45vEFmJ5OYRz3gSZ22safofBMMNiSasWLaFol23u9rdeyY4I+YbhMgqIVRjA1/fyFMgikwJFzW9 WI5t2Lx/utKIx4Hb4dzs rosVziYZiIxBoYc2BsdYFAUR5FLOHFMFG2CWg+DnfMbq8MKh1RZTSzk9WG418R64AYL33z0ft+8CBnpy WQIDanZ/L8itfqKMjOVm JqiTOzBbFZiumsTg8Wio2zcvDiofRbriGYVoqTu/o6gB1Ikm7dAPURRyAuSUz5+yFl8bTfb8MNtAy+7Y R4UKcrKV42YmrszWgEej IE5zIIlYl8/wc5sw6pWTz9Y4kF6kGZ3v1a1rC+eoWsGBFeSVjgXdcBrN3YQagPErwIIx4smfJvADOEeV ubYj8VKFWjM9RTSAdSPW n+5XeR/TikzmA+Yi74yZrIEnOA23l/yXSM6T7KcfBXi/ZxPVPTGEeRfQvlwzZdl813K3uZbJPCgS9JlJ KBNJEkAE3FIsumJGMlNe XCD1BFUcjOuTZyse81XTqVd9c7Bi4HfDKjeyf0LEFOBfrA3N6X4RXmszwkhArTPQmNpFvPft0Mulz6+J eJS/GjqRJVIUPI/I6nu6 h9T0d2PHVzvZTr3692dgElNQuRkQtkRHMUon8NDFltyAeYXsuvMOXF0alF1w8zjpzw+gZQgtCVQsmRJu WWYggBrIEyBAUubVKtWT sjxtfwYpdXXRbo6iqsWzO6AYH18vTqPBYhTFN7jqSMjd2yF+AxCbs2bRBLYTISsRwDKPPH6wCwF0Umxw dZ+K/mIsGkHaAx6Apq+R wT8qOx/J8NIc9tVOeMH3jDqNz+xxRcQ/sGq0LOyVhe6t4vJlz90WEX1GeJqFNscBmgwbJxhovgx4AVf4 K/19iIJOW34BG4lcrKCP RYgTIFCm/RGdBtAsU+/BAuuZwZnKpN9e9Ogu/pyfdm0is63jGfJyjgLvg2nnbTvuLMz4p+JWaWL/0PCK Csjjc4/NYDS//rk7Xtlh Sv75mfbvvBbeFPAfpS+kDj+Mh8cZ+C9lPQXf+/1Z1vFuQ8AqY75tbKZ5zCJGv/6cZqi9b1w/6gYSnzpC UpbvVLG8+jGKCQ1Z4moW WVrpT9KmCOeQhRwQ5hS9Z8QkCAZyLrPtPGSg8J+opDdYtrXv9GY4R642CGHzq6ChTHSPe5yHVLsGVr6X rbaaKZKZTbUDkdIDh48W 1K6t5p7haAmY3PQ7oQsWDjzYf1N7jJU0VVVL5L4qKYSaiENZvgUqvcd6rPl48nWTpSSbM2xn8DerHWrw X4Rn+gfQPGnjtuER/Pmz jOSPBiZOMUATvB1rhUIhcimwA20BHPHVyQtwjtc2vUdx2KLrJGpBpjGgIecDpzZmXnrCKNWLASKXf0D6 FgZ8rDWSaT2AngONKn/S unSBNiqCWRR+vtuQVwE4ymaxHJ/JIulKPiOuR6GCZKShJu3UWrlrU3doQmOlq6zHZhQYsSCCVkm5FuFo TXBnAiXLPpMJ6VQrY+aN Mk2UVPvdABPJRE74dADHeQrLZ9MNaS7FPRdySvLWOJK1SoceF2gtLtkmnjroV4urOZrDrRMj6dOEOa9I gbGyHV437tsQwV41tVeb 1ExZMRfIOOVYUTdmxKt/ZSoRBmimUIzmLmCqFgpom+NM34mzZcpsEYuEb+kDSqYm8kV+v29fGy7ckUGN l7W2CJR8kBQ6HOSu79Fl NHsGpdhIkzDsABs7AxDY1UwPt1ji1RAZqsEnhP5Gp26PWQHviamgHjepilJJMJlCbVCNISBV+qFHJswi 1SgiMVkoa1jYyVybT1XM G+uIL/UTXGioHeG6i3UW87w+l6rZRkB7AZfPiF/W+AWiM659VnKq84fKKl2k4ZYc7OhwrFAQ9QT0kfVS 7j5RrPjVl/Pq3HDk6oEI fpGNRW9PKFiflUBUGBAvF2GidXDBpUyAIeCPQnpkSbeMFRSAVkBJOv6hwQHLeglLlceIJGPvjH4BLBp1 GVTtMCQjwoXqdXYxD2tL /YtMrb/XXQDr9F3ZcCLOZ7MKe5Uci8mPgB4aysSnquK8LgxK3aMWVxG30ZhlMqsZkWTl+a+kDCiO/qQX +0OHMk8nOiAyVCiBaEvA VL17sHV8LasUkNP8+wpMj5+y8e5GEuiExn89DV/je2KVyuOWtxXlpPLm0nYfz+5ZSw2VwoUGOL6Z8AWR ksJKiSEQTLReVGh/y6Ex vt0qrex6T8V3Y0rlhCp1HErdbCzzQheI2lWHYB6wb0MzGqvGQu3nhoXZ8RVJMKWu9ZrzU8LZx0gbRH9k z0quNIVlS/nL0R/HbflD VeEE04ows3Eyqm2GMNzZYKRULx1hrzzojZekjCnp9hArTYZTaKiZcATi2PWDAkw1UoN4IyTLX9tRAbhE Dpg/4qI+MAgolChfYRFE f00RGFqZGSKaEUAu9KlNVo+NXiul12zifJWIycDfE5CnKF2+Omnn+jPP/+KVtojeHEBcFJ8dmXolw59U TjAPQeAcxRfndlBy6SVQ nIIMS741cE8BwUtR+dLCFvBlieC1uwLYRYmkzw0HtikbAE+MigHhjkxIYewyWROUCx9ckintRJDmNvlR Ls7XxOe26vRqRaGjNceJ fySVeYGnQ9b1odOpcOjNbN+W1rDVaiBoITDXzK9ke93ppmA5i368C359XPRZIabC+KRMVBNTEVEtqmsT lE3ljNHjGiiK1exJbCan NXQGRfD0rXRSPaowbz864RYVR+SoyNJTBxo8SyJTMqUTJWn9VGNQncAhzIRP70/5cd2l3f063KTiM1+4 25lyQrVcx6aZrVe2qQu0 Ou0vIGUqhJBLs2ODZH8i2onPUFMU4AmW3dUvDIuFgUYAKPs7ylrme/7L5MPYJytCBTN951lD3zM47+/r UIWIqNN+PKs6Vnijg7kE tOmTZN+zLD4rDnFwO4aPdKqArwxu+uuu+lUZra1FnYFsYIHFgofR6tAK6Weh4ZOHRfLBHPymZLCwZh3w javpGrVqtS+fXsaPHgwC e1CdpWRxDZZfgOJQvUpBSYtmNIPWFPtJUHZNDUOvqPKv8ECikAFp/vDZrYKLNpAN5nIKRdNZC6EHjZlR IbxCRYgDMMwjE+wAGEYh oL2ybKEizTB4zJnDCgGDIwmRCBHCSnJ+NELDHIoGYTgANqSx1ORQOB+/OyuRdVgXRpWi1mlnVN0jLWy/ Z1R3tkGGLcceMDIEyNXJ UXFixenrKws+VBzl8tN4xZZc8imn00a942cwdz76tntg7XVB82ISvnuuDZAdfWaUdOGjIDSjJj2mCKPb tSzZ0+rEXRKDc1t+ROPB Ibem88K77kbFk8uq5jA8kPGaJwlAaGh4MPUVhRrp2tepqffrJpWwsvWaw7UA5+evvjiC/7SG/Zk0sOZU 6PtX8EEQgukIh48xVqhe ypDDD17qVm+/uvrlcwydbvzAopK05hLt/vvv1+GGSa/8xJ7SDc6l8az331MEYNLEIgLq4tDeGlnWUQCk Jdp5tPVIPd/EytWrKDu3 xxRX4Bph8/+mSpWrCjDjvjvf/4Dbz89dKNASAhLSf/auKpVz3CiOB94Fe1fyWLBa13HdIXTe8HkMKeXJ 8FyzZo5ET76bWEp4TJj+ gsXRf3LP0b31Idiak/+rD96nwU9jECqXsyykVrK3pSSb5VRdQakd4K86fET7tfRUrJQRXTrB5l2HZWli qjWgwRublqea3msPnnfS IAPrFLSwm52bYMxDHhDPQ18TbcJQFDyjcBconFVXo5r+ZrF9g2O191Lk8evP9MCdUIQqWMxyfyHApdR4 OrRowfVrVtXhUiOh/g65 owsaJ7PLzSZnLcmDGfiUG+++KLyuQcvFrSPm2++TlGGzIxh05/jev/9/pJUvJyA31bZQiQqFiVEYVat5 VTIO95++07iF5fXtxSkP cw/x5oF8Li128VfkZtUvs4wYguFFHVauYrhkPwA34m2eKPLB1zGtMRSAprlahejkkqwlD0hs4DpBjZUX ETYzH/EM9aFhXHVuBYMx 409hmMna8QfHBlSMEKFgtYx151O65EN9DuFU+/bt0+OxyAd+aeiOXiSqGyP2ZDuFmX0Lohz20TToZVZI 3IMnq2fIeUoCGwVjqWYx TJlpMN+3Buc63//+063q1zsRxn3UC+KFv4rACWYJAoUHvgPqHGDBNw7xNJXaj0cdf+AZcIj1G573BQDj YBm4zhdFbdOzZz68JJ87 bgiZG3csgIXzeqrm4+tUrgHx+Ie4jfg/sjGHia1cFZVRyVWzb21JcM3j1BLiC/8x8rq0zE5X/7880+aM wGTUGb4WRQzp3749Ws08 emgQUctyWwrkxjinREKuMtqX45HxFmhChViJ1cevUU3U8tFp5izjDHatruV1PBk/fXXX/GFvNcHM19GC QfjCZjWPEYpO2ED9sUDJ 2k3CArxrwVAL79jwpoyv5/ToXIUBRh8gTehgwfk5sItip70jlWw5mWlq4cvguNwRB08UJT5g2pr6HZDl 4lAwFjyId32Zzu1pjM8H rs8yHGFTHO5aF/we91aCMvhrJpENu5SJ+E9wfuN+59m8nDnhqsYU1jt1uVfLEkPdiTj+gsf9PPWXQ0wA aVwgXgpvUKcDAJH+sWJp F+8TjUkjRnCiW802sb9hNJcES9DdIx3t6iFH93xvHacZAzwW19cskhDv1BihMyAVmDqwYXSAxVuI26n6 q5vgpeOSe186cuOglUDa Ujl8MWKt5xlafl39qhvcgWgA7++7plGBZGAZVU1bqdvUeUe+++/T3sBVUHe4XmqdVkduxB1OS+kdLg+I axs+8IjTHi5SmDyhB2RT ZZRvmFwxMTivVQqRLTFtEcBFTATgAhQIXEWRFrz3FOUwsaOCLbrYf1w7k//fePGG2+N6fbmc56j2idUu SPtGRDN2AYUGnqKALoL3 wz0tyloqR9k7H1sG9L9AuKIJj6I7eKf8j5WZVJr92iocULlif6GlcXVD/lOTXXKR6BgOUrNjJUnYHD39 iAuQ3wlymfaHB2QQ7102 yMZDmNdv4oWs0RSkTFQATFe18311h9AUJHMRCtCj7/2Cur2266rTJtpYrAwV/UjDSDYyBf1wyz+33nnH Vu5e+BOH6Mf87lwIuCz0 u343LqlamO/e/Mqaxb5VkxtJFtqzCIXdmOc35Ebg/yYNXb8sOeEKfk46QawQOfkHOVuzymSREkZM073a pCSUhIx3uSOiiPmkYAo5 P2cdLd54+9KX1w716zlyu/ViYa/8fjjj1/4xhQMmbEN4LRSXGJsAin9sfTGRwIgJZeWy0f/BPlDx3CFM GCA9P/+++85jvVUgGiee +2449Q4Li7EGrQ38pPWMlvudneZmRdLDyUr755cU6Sf0nEyv32jHcl6DVQNIhPPC/aLlp+KuRrRwpdpR VmXwfSQf6AHIHaYwxnSd mdlbnuEjeXaXXcCRbkg0mwfAXCFYiPWluJa4a3pQbfjg9dHecZVKd9Dtt8G2qGEHzxlfrRfS6jTGUVkZ r586MQUNvVEGYllYj5Fj e7Uotl3231hFlgfnv93nSTt00EJXTzrYTkjrGIVMznbZyEMUh/p3kjmagli5gLypl0/LGc9bXplpM62s fvXxYgAKtKJcYm1ior72 aLRrReYnFEqZB8k8kxGatoIVCQuM0e8ovPPsbG6eaGVEVjSy32mdIntqSjpirR4FtBrwamDrROGBnrTn Efxrdw4gl6HFR/XHUgnV BuQlp4LJAyOxYZeouGnzrtejosLtROfU5jiSA/u6Ue6133L7Uz8z9BGaZX1k7K1Zeim7Jofq60LQCXAj QrVZcuWqdirQQvNERA8+ ujXRRxaenmiH47az6bH9IwFqOupfWIi3L6uG9hc6ghrmgdaR8AKQdgQUs3xyxxEtg9m60dLJakR25ORA kCutCaANMjPk/fy448/t f9vgmd49Ghp28/ayOuu7hw5yHFyqAKSrtLXIyahxTbjEJmeSL1NXiFGhVMD+EJae/A9xN3vk/ToIeMcg R4ZR/m4w+pr3TOFJU6Kd X7bXHLwLyrkEZseB49rLmLnxOd43Ba3U4xhTgLvoHB8riICuuFRKowkvseMRnX3yl2o+s8sZ08ktMRy0 O7BcNTNbtJ97U4tueNye +lfOcwhhn1UiwaTPj+tnXa8OMHAS1x8aUDJOuLK/fVN6r5Yv1jDrwEykLEpPv3iiTtLBcpV7NbgXCn8c Lwp8dqUP99l4vj18Th6+ rCeHi5v6kiU1o33p+PO5817O3wabrpZeeGoH+euwkcad+i8gpPLDQwm6X3vndduRb7g57POjnuHa7Plr b++4038jmWIru2s4xsTN q1yx5EJfe9P452uY1j5lMKdiANgy9jHrx42RGO4AuyMtBx8WmgY3gnTUEXicFxy3Jx9MrMmo/112wXCO mdXse54WQI8BRKY3rhAc uPFDWvwOGLX9w0L/9Wj2VfemAsyEy9XtzSg3uXfgp7H7FipfsCOMFNLoYzvD3II7jiHRhO5v4dMPXM4p 5cQ/eD6N+G+yGf97funZ ABP9uggMOX9GJvfmoz73v+4rTTTN9IjUFM9SiCwDw2cuHZnuIRZvvACFFSo8MZlOykKNXytsgx81e2l4 bVGTNpxj82+MeA4M146R +hLJ9gr3EnbiJre65k7n0HKwsV18grpgZFb3/T0gro6CBhB9GKDxbE9UloMFTRUbpGtUma8IHIHwQyvn ewLXpvxOmLEiBHKZ/Yesenia 57jBiei61+NHc5yMa1X9446xdSWCVWOF62BHx2Ai9VHGwoKYJEmMm1jY501xsDtKANqQl0we+uAVYivf IrclaGXmsw1qdcI08FxP JMAff8v8TLMutPL82pzhBxJs2au15b2v+XkoPERVC5rJxg/X1PFbC8GzmUSH7ZQE2a9k5aQLh/YW1D5g ggyOi07iwsUpPiJnJl9w OTMYM7tPYCMYlBnlaLKuMoc+/WG0CgDPVVXgsHqq4JQcdIwTeEVHejQobz0569vfRnT8me2l8n CSKV9l5vS793Xwsy4+z+ 3uJNktrMhLMQdaUFNFnWMAFPogAlkgP3AJMAajvvnI6iW2BKuZGbDTB/esh8axCGs4aPepY9AUZ0R2US FpUyme+YN920RPSUIL6N AKAVx4Kv4v32dtaUl7iCoR3eaZrlMqcqlhZWz66L5cQda8HvuLNjeiNdFVYjSmrPbv/Za2TukaNXCbL8 DU1JsL1xt6dbiUPni6WV 1S+zLyik1FE2+bNSWjbKkTStNdbYHJt/T1Cu1U+62NfQs772GNFgXoCQdtJxfYyqlem6uEF8pDEMIW1M MMNWSHQ8zBh0AS08dMUi mRNz9tZsJcHlbIqxrEPC3/TDxZTI7zbfbHWbGglXduXLLrvxX01N3+5sINz2qAfDzlhhvaOTAhhxMZx7 YXDhw/WlNH9xCRgoM5RQ EOInWqeLGCIjOdCHtFmJ8cpCQrl0QlcPw7v1bo5q16wE3YITqw8sRrEKH1T3y0e2wpTfwovBVBdQZ5mj C379+3Yoom0pxZIqfpdI PzWdxQ8qnf9VnPCwg3ahIRB+kdUvy7Uek6fPWLt0yH98hwskhLzRNGOqPR56cloaB0Vn3uxcfMmP77qg PGr1nN4k6KXrj/kmQDBi vCTqYJ2chaUpUYBjt0jIqjjyNmcL6295phJNYGC+bT3WKtEstnNEWU03CD5cCslQ0bgkt0OJY2kFaoTU HUCQghJ1lBZqVTmSmqyH GQon+plA2lB16tg9nNIeXiSpHaKnYwyNAhw6uPdxio90K3jG/iUedMUtcmZ7c5eE440q/A4H7bVrIGIA c2+I0aFgie6TjSa4XZN1 lIrqvi4KcqiBVzJRr0LoXi1vT8A0Zi2pxr4rKj64w3cIWg4XnsRxxnWJJSLrnAOLu+6mHusrXRY6ZkC9 G1U9AbEv2gR1k4z4KR83 sssyO6mnfOOvUfgTsIBDMPhGg1nNZ78eXHFdgSTwERTguwb+WXHvcpUdDH5mWrBAhO2UertdebmjC0dT DERuNlVH6GkiZKTaQ5Yd El35GLrthquwlGZ7t4zm2o+Hb0sEI8550un+ckrVllbNUNJhY8C0TDCLCNRG4sbbVPQxFBazvMaEMWSg czkf0MtlPy/jTPtBasva GyBsn085qxOQ7kw0P8p70qgYhxcxPlM0pvyie5SxEnQCCMKJvXkbDtkxXZ2CVlgo/wMtCWtIUEqf/jhh 9IPctOyQTeRrqjRrQXJD 6dlT5JicITevwZIr9MOgoLtKXo+e4HIgQHHWKBZ5p9YisPoDUP/fmTrvSR8adwNRFfMkIsypKkIic9c5 7XlNfYNJuvAqbflCddpb CrgSbDXJ0FOOIv3iGo5geUP4Hl1wb6hygbDhAY4229wzn2UWdb/o0Ff/sWTJuMucHpMDIIPLtlA1FUDw Bc9FoRBow2XXGimRZ1CG 4981OVgVOKmxx0zB2nH9aHgcRbTUhNnImWgoOK2dW92/NTenPwTZrwwaXWG/JLP7TsSzxBtVKi8Eq0hG T6s54MjScfqwwNZKyOWE a2HiK2QOnLl6wqKJcdONcw7hV6AH8Khit67biqr3jlwKCMggPngIxWyogt3LdKwdHycUHKn1nuvh9lDI rgV9NxEW6rdrTV8BaJXZ mFQMLnicu1SluJdasACTZcAYLpNSLqJoI7Wj29uUXgbsit1oJjVdGQEhpw2MiFQwQ7h21AiOQ8MuxcGv 9P4YLZvz/WncwcQsU0Cx I16KKUC+pkuK7nTVPukm5o3Pi253QU3ZhFo0ItYwDFPLhJUC8Qy3zSIQISiwubSfIBv8XuoDdlk+ySwz MTftUmlzQtDvZptf09QU PhW21V7VkLKj1uz9uracTWLXt5tzrmafuCaPD6RbYUwRhKupFrf9djZmNV+aoBQQtys38uWZdIzo2CmO 29YE9YIt2Wz27YWqkS5z /322+XW09+UfJqlwUfDQo8C2bf/0RlZeyhrTaMQ5O2orHOKt0/ZYzXT9/TcSzci1f0Nva0yGzau5Jgft ZhrcdJ2Y3/We+DJ/Uevi DRvc9k44BaB2kyikniQn++0295fch27DuW6Wo6PGvXsdSsX6rqm2rsnn/gYcNy64KFXHQ5Qb2P23cBSq TCVqY5SUpZ1ZZfeR2kBq VFPXcpDidaIPIAPG2MAxlQp+UrQ6lmeGuclY7EncqZtxlxESWJdk8OHDXbvA1rEldZsjFsMwdc4H1Odw YsPr6YGEi97MFoI27bJQ hvDfaj9wdwhTJ40eNXxK9DM7nydbn3XdJtbYVcv2MfunAoIYgJWjWuFwfxq57ijJfgVg1/u18ExrDqqL s2q5c4ixicaHRGhKxMGV mf77PPWxjkiYKVh7uSx4RL8sT9847gj8BEpyFXF92r83ObE9dZs308fOEMNZNMYWb1IdcA7IoDRsDpqU wzodcFckdcaiNcCRC+ei XfKewH5DhvIJ1CTG6zTYa5RN+/1sa+63aeNwU2IaLLaS4Y+UJ7MnXFcT4VbmNzznwWmmsSU7SdE3lFLG AIvWjVFkI7A+jVJ4914K vw+xG9c6wONrAE6n7lgGDNv9JOm8uX9OLcM27gz2+2WsJisGT7mWUkbjyMRFJg1pen5teFbyVxN9+KqU KGCV/hOt0vmnxs0hZrFO PbWAyrA3hAgfDycRPjtHTonZ7qD6coMlXWwSH1ebDhr6t8pKpcuQD2AjcvzXbRmXsPcP1f7fsn3H62h3 sIaaV5fYMyVGQ9jGxKwP EYYD8B+wUD0+0ZE8MwaFiaN0ajCvBCCLTfFi/Ja89IO/a/e7bWqxtA5bdSn5v+VD2iroT9IVEnei5fI1 J6NNRqZs8u7FtFD4L2DO +M9d514oMWSlMQCleBmS7k///6kykNE3BTIT+R2N6elEuDhp/byLSkJLykRmfwOxSc5b0RSRzujgwIoZ b3dqDIZcHI08an+4j7qF 5LfqVPecyJAfx3Nn4vzNGFqTeqs6IWwIdPDLB7CoKshqRlsAAy8C9ib5fkHZyeIaBQU4A9yWY6qwVKs7 Hw2DpIlisTKkq718QUfB 7zsET756vBEJaMwL29zbyDfWCrH4BwRQ3et5rarHaVb3H+qxHhZNdGeeCS5x6T2mqmRFva29CU+gxVr3 UhXUa6t05MuC31SV5ES1 Vr7HKMKsbHIjq6UxaIJfu9D3fP0GAtaakznwlLsZJ+I7h7e5Hmw7YCJIWNbEZcQhQB7rJdAMgQqMJLw7 8qlv5Ugy3vKgzVaDiof0 cNJRPGNM3FUYRxPGbIUqJLWPf+OfwzXEEEPrwBBYdPQng7m4ZfHZFIxbAnGBCUoYVdbd4QKtXQLS0V7G Rr3wUNKpGAIvbMRRkiZG TzLEH36XHghSZLhPDLzUq3NIpnmyKsoreFTHFT0dQMwOZLAbexch9xuEfabF+eSO7g0HN3w8Q+Ia0D/M Kcx9RfW08eIn8Q4Ih0bX VZVt4ZhoU/oqixXseSdC8T54JnkhiwS7lrxDJxzK+4f+qxFK05+EYvf6icqXOJqJq9dPnmirCQjX+sbx OD5tHEj5IzEBhjf0svPH ngrRoo31iev1nOnAvd0d7MGh6PMQJy/ut7Vy0S+WA44fTiXL9UrtRc4p+WXBPkutY1WdKKNKq61+xpMn CHGsBTDYmgLnZrXf069a zSnDWnKcYro5sRxbb8iRGbZITJgA4nUgq/UvY7cKniEcxI+zEcdm0cVzxIxm2cyoDNMijd7//770hQYH 1GF79HDbdhDEHSrFsW/G o2m3qD1u8sK5EXqdBBtaRF20/qgkRCO87XrcHbm83e5ewK2cZJCaVzXdlWv58EufG13dHdlKh+X7YGJN gbqRNZyxhrpg2CrFVe0P oigNpTnmoJDgWsM5rU+3dRnoMgiy4/lUebaAeYdIVKiLLXsZIg8EXQ+M0GygUbAxmE8XruMcaZXFfVsA BCGYRjm+oEFCMMwDOMTL FJPooUEt3LBifNIk/zWMrDAUQjXL7nZARxNVG3GReDiZLavYNUuXRKetG+jBXVUdnJ7ydCGyxSN8jWnG BiGYRifYAHCMAzD+AQLE OTcFPCoVHWoLUPmJpWHbFQDhzRWSxWQblKXL6MLYGyBTUyEREuOCAdfRizCAVFeGF2gImTrDGV2PUwVh vMNhbj2IeHwkZRY+fn5k b+/d3pvJ0PJLezHkradfVSWnCBPocTXnbcZl7aCVkqF2v1bbeOpric4xnof3uSDF8ndG2nvr99cfw6F9 9xzD/Gu6qKtAyisVVhgT CBlssk95KG+/QcsX0ahWrwMgfMsoHhs3Wa0TAjWHIH3EbzGeu2tTr64AZXjq5zalYe17gGN+bdq1Yp+/ +ll3acl503Y h2811904nlzUb4h245/MsaLbn9gOJ6n3kcosz7hERlN3ny9S9fYvRctD7jR1pY7tEqDUr7I7+7I4fz/N WDJ2YTSyIwRAzEDRhUlP YpQoUKFqG/vpvg5C7yU3khBq0ZxvRXp96UNrq+skzoehWSzNJvYOHGMibAi08JUU5vq4Oyas2yHxqyxw ALIMOvTjneqDo2GCs8LE JrLNF1byWQUNvN3Uv1SQ4xuB7gBQHuaynlFOWqXMq+mW2+8JNzEfzSd7iMEG9Omi/mcwd9dhVkBS+kTM 0cTJYJ7+/btjX79+hm9e mWgeO54aPEX5QYNoz4WyvSgLAB07+ap0L+FpZv7kr9y2r4868RwsaJ9DxrKEZRGsWqz661/o7MNQN7hH DDQEIJYOoRPnjypUuSkc FLPwb4vEM7jD01OngQrGPnjzgLzFStORp41OYm4V9+VX3/4CoOcRvd0ayHB5XzMNiludeaX6rjo7adN4 Gv2s4UDwGVwqCt2RsF7e fvs7+o103gvZrdFh4/2IhJILRaGuhnsU3oIEXsixMPtmoZCcwt904iKpkjHIY0lvnpOBeabXpmd7qWpM HdYhtOoRmTxQkyQCk0nZ bp2Yequ3dgB99DtR5WgziOAEKM8pb0mqLoNcWJbT4xS/Si/5bhaOWVcD8/WwYg1eR8FLextU7x/T58+K eN1hJhSr3lOp1EIdUMy3 aoy/Y725XIP2LN2LuRWNUdwGT++MC4OHqGXWUFz7AR9L+ZK25dyJt7y+LHHHlMpcvLXX3/FfinI1uQ81 Exez1nGielxyrksauTxb l/Ysv5CcIlDTDtCdl13tRB/2wOUGuQPY0Duhs/1k08+UTEmlSpVuurhIPzLL7+guKNUtQMepm2PZE+PK 61NG602W4ng40QBOdzlD CuXhW7yNI0WF6G42Pi5kBdhLEXWdt2oQF8//UUyc5m3BxMBEqvLtdsTPpYrA2+xTcJOOgAN5sv50XSVW mNbMnrqJgmRwOg7EMT7y atTS985X0YPfThpUwxLEjLS6tGJq0B34OAoXVqoTJ22lmAcRu0KDRxzx2vLSyNRKuGtaK+b2mIyp8m1K lol2yzhG5VITX9Mbrtmi HX+jrMpqFAqaXf3ilyWqqVXc8H1g8033f9fCk46x6P72Wb5XRRiBNpkN3a3W//8c+YWlXMUe814ZBgw7 2+/MOyqhua5adqQ07ikV sttXhjW2QEYCgK5oDqku//8jemdv5RDTfiw2qRuRvxyKDMfkXWypNhraveHqfEO5MaAoiqndyWhpXGzL ThBwwVuZgRczDsjCwP31 IGt0QX7oKxqpE/DaGFd8Ev955gI1W+++jwt4zdNzX9hxVBccymwxdCoDtwwjyOkNjNuKKhchYJpjhIm3 yOO7ZKhQOgZn51TyELwF QeNBc/J4cSHsnCSpINulvQV/O9//5Wo0SSaDgh6/I6ZAN0jJ6WuUh/NqYynHQwrxDJn0Skh46GQEPcDZ aQK3fLjw2hdqu6++KGxd FsQ5SlWBaFh9whmbZxg44bSx2Rgs34yC5iZfwjZZLzFS5DbSHcleZy1itRgjVnzkBz5BsrMnVCjka73C jMBI6WFKM+HD7IiS1sXX iJC9yxBwxZ8zULAywdF1CBDz2R5d4GjIJQkN+7/+dcbRJv6oX/28tcYjJGGBlP0//89OsNV6c8ccbvkJ vKRxgMvYDG3ZXYcnNmCA Ou285PrNx8fWULmLC9/MIFQ2tzXhKBPc4vqShbz2rdGd9TAQOZKtchd3QQozCEi3f105fUOkwEVP10+z gHlFVVQLlEy61tIl193t 7vuGs102oqn2ZILftLEqHBHyyAwlFcWf/Lm1nMDOXFNxiYZzz57HKs3qckdBm+2GzSfFB2J4MObfrddl 12e9/7777ftx/VZ35bMQ ULrwkiCRjym8FKNrgBsrgcybXSNEauEtSQGT3aVFNYJo6xnRMm6+todMmj40tTWif1GHk7anNOeXiRIN aofIiU5xTA/t3vA7HMou obSj2vxg7188dDUHf3SxTECex6dSrDZ90npzDmw7R32vFBpeapOQLckWjz4lHkQv+oMdUJX07lwiHVt/ ob0Z8XcPSdlTHJkcNH66 jsTIKhHsP+RE98MYkIzevRRHKVMAdi7LaUAZlYH9jJfoi//nDkGR11WhINaSquz2n449qV+U+jiOG/wL uFQUVSksIEx3ceyro0rN KEP438vmaDxtAtLbu2ekNHCY+2l96IG1p2WPt29WAg3hnJC//zzzzKsQaWP+LwA+by5ahNJnKau/LTDS 6zUUBB0Gw6E/aJUkQy7w 5wxefJkl/r4JWM5Xhb+/Zu6azBHiqb8ao7iLImp9o060EngsUCUL8jlBXq5d78sRMNhlus++ecdXou+R jhUltYGgwaCyNGxAJVm5 64sGsc3zkGS7l4iYPM2A8mSuIgEQpE0NdNkWKEKePJtio9FvqFcbV/+5t7MLsSCK4Xo978ADDsB52vnk 9xaXf/+/VUqE+u+smXL2 vzQkJzhSoAAHA+i2RwUx7/GwGwcmaFPndPpurGHoY9WvSlDP26KFQ8UkC9kngwr32MjFJg4HNI+QaN3h Z7V37Uhl/NWR8bdCGPvT ox4fyCPAi2ieTSHTQFieTmwgErzsNjygRVVeOOenrTOf6flvchsHMqROqAVxAZGDQcnfJZIpDSTV7NGp d7jqBTMC03HD7RyjE6// DN8Gu3AX3/L1yYeTxvyHY11tn4Wac+EhmdmOI93eMjeNt4aUujs0jNDsOZZYTH//HFLbHjMzGjeKm3q6 dNF1xjNApoIyiworDVYC 81lQjeP5dc3uO842scEt2UcOrfYknRSL/TLL7+HjI5nQY9w8fZYnAIFHiXfRQxo2ey2f9K3SNNK51IHy sHV/ljSYOpP1YyjYLuZ9 iyjktCifMxaE8adq7nFjd+sOmWut5w09c409gRN6FiDJ71BUezdFRTy4RFXRodBSci0WctYahO3xHDI+ 2PILwgAKJSJ3S79MEvgd 2iMemXFZM+5svuRmmW6F4TVe7+nH0RgtBCRYyorl1Xr0oA++bQluit1RuqSbKG9cLcjhJRbjeKeGIiEs xq3AuASOOfGuQxmVr9EA IRQD5UXjKmbLxDJPtQd8bD70Cz1Mq1b5cZiPqQcFZdq8cuGGrLzxfxPxS+Oy9Jwhu0++knmc/ToURVjg orJv8DKnn8cj+6KcQYsu Yl4NW44IEXnJqdkE5Md8jlST/chC66poDsmTuVocHBcxHXYnjUsKCA08rFjtZEuLaQ3UGc58xLqcsOQ6 IirN9q314DpAtRQ8M/v7 XjaHIq6gcLt7XKMBCWnwAaRcoRPRvqwZS79ATRqHW/U2ymMabZAis+IAvS0wKcygPatzhSNJWHeeDQac fJryPHrToa62GqItFf47 7viKWq2Fb4FpAmkWgwgTQbZfStbNq2hbnanRjsqMzLsfqClisLk9KpzyKhwh7Xsr1ISQteFIabNG30Vi BvR5nVcIgEKjc1VfXvoP 1Aj3fsv6eWjFTd8xvJbxdbQTY3ZD6+yH/oMtOwRgUgvf0S8MTzmiqv3607HL2vPEnFKbbu+oI1NF6c3J m54jXin4ni8JkAUwOjDu Atkinson/J2C+YsILFOa7oAykGlk5bw8yT8p7hryUaXMImnzk1cFb7GETWZyvsFE7FGIFeHW7EGAb2T9WPnAYS LkYA60qCYCDMCRzAEhEC glozsAwjKszBmBHniCM4jWm0OlnkVvOvdg1B0CWHZQT3ygn+A0dhYyjlnkIZ1F0VRCjPMO3W3HJihKQI GOcnkdCu5bJ6yLGnkUhi YyRgshFBqhcOqTsrdzsKRAiNfvjbyHnraHImIhIYPkG6hBf/H1THUaNTlxmuMSSfqg0Vmk73s0jb9jQG 1Nu7X+/fY8Agr5lIKrpt FACT1yiXQELRPPp3z71m+2Z4dSaPFyT4LebYDxEY8MvZRrDAUoUJ4Fj7WTwZPtw5aNFdiYids4NIs6Gh GlQcaExgXtRpUoVWSmhG j0TbLqhZ8/ygOwgNVK5hxXVjGQIaQk5HwBGsKNeF7pr6j4R1mjQnPpN9ReyIbeUF/CBEBYalaygMJESz 3Fk4wfr5HbI7KyJwBUFD zPOv2347JxxrxVOAFQNAdRfcAGqEFSvRGT4LsfqqRfueyTeuskOQVnTDBRWhWS6Hc6+ovs6nOd0U6w7n cb59gx0mrQO2XbjlASRJ ++tjqRVYIN28wXdCKk9uHhia6NRTkg15p/Apmoff03PbaB12UaG39AgTyvK8L1he9IYD2FGsiPUuhoT3 TU8yDQ10BSVNboEaiwFG 7yTSBfSuuqE55qotprnQ/uuMJjOId5+0gZsx0W6a8Lx+hRkQdtktWHlJsfmNOVjloddKC837spEFAWvU E6eaLlZ2+lT8Fog1ciPV 8Q7G/m48dBuFddl8hE8bYnr1ImCMQG5UXFVjZ1w3BJ5IlaF95Y/2U1b0+R7lzVNujrEhNARauwt4ES4/ 7aspImx6UvLk8R2jcKxP aNCb9nUWQm4PpFyEVaQx1KD8ddAPrk6BTiPounzeNr7MuX8qA44IcA0BfL3EKiC11jQE7uqEVFec7K9o nRheZfagp4/7EcDpp0CH 0KxASajQ7dJHPmWXXxO7nyVoZUc7Hk1KOK/4HhysktAujSOSVtUk18+ij33kvm56u3kAIjf8fYXgfSlu loDidafSpFducHBlhtCE S70aB2ICS4ZLWVKYX5ZgYXH0ZJzBsKnJG/M+5EzITSiQ8w9lEkCOx6QmSrRmjgqmY/k9wMrkyTQfiyQD V3pJX5hASzFsBEjKH4Jo huutQDR1+iFNPHpMqhrnUdYGM2NDzpcB9pNUv8RC5EJAIfruVjqEzgqmama3o/PstZrNPbqt0314gcMS tMw8nmTyKGCN1SPot/+K I/3Fk/mQmC/y9lz4etwufZWK0HDIk71S1dTQ2H/fpchqteZj2vsr3EouEKQbetL11HBR6LJnURp7qtNw YxY7onQxnDyyhsm9cnHF JrKWoewqJypUcUF8q+jm8S+ikG4fm98g62v4WTtCzkpH1Aiv7xePiCBcoU5OoM4jLZgC5GTEVTwX6iIw UMHp/9axaP3nK3x+1t4+ +23U/hv6tD7M/PFTji1extlOFzIaVF89kTYQSdB8h0w41MnTzzWCXWUMnXjZ5tJgv3PdfnV9rAaWBhDc gTx7NXMMLKZqnrDbdQnv n79+cgDYRnBxb6XBRlVXa2UN62T0202c8scFCeSdSeau/gPGJCj2W63J3Rngbmz6mthp1uIMO6bPAxLK ZXRwHD14pagm5FX1nzzU OFUo1GoE3atlZxV8sjGi7P6deHljYFOrQjnCsCtUNa9qfAXgMuAKalpaAj3qmP87HlFrjHzjnA67oAgz O4c3R/zEWCRwQqskjh31 6tuRJ588zrR971vbS4AaZKNxOAD2USV42C7jrcTs6GZpDDj+mh8jxFUO/jvX2nR4bI4bv2y0ODzxRvRd YRngN/iCoz/6P7Z7OB/O 9NlXg3c5D5klskcZHqBfoppBkDGjunvHwJkd/cB9Q+6LZEG6/AzHpbY3OwfG75rBMVd9qWRSOIsxVMUF EIJi7/0h6qqctdmccFsP cw/D6U0YiK2JJo0hftcuUeI2JwuRF1TuIubZbZuF1J3uX54t8EseU17GtCbMAzlrQD/FND8+/idl272Z 0/JSAERh7Okvq0fWGPNz JqMLiBM+vkngIUHWn+wsGL+NyY6Frm2IAjykfFGIURDPdw0eJhnUreJTjl7opDZh+HjxOyBLq2j87zOe bqeOXuMGRjg7ECLvrWJt idYgDAMwzA+sGTYLXgW3TgUUIgMSUnUfPZeIRDdnCDg/1Vd6FATR241HZBXWWyZKrSnOoRJ></span> </div><div>
</div><div style=text-align:center>
< /div><div><strong>Patient Name</strong>: <span class=clinicalNoteMacroWysiwyg id=[id number] macroname=PatientName spantype="macro title=#PatientName>ALYSSA PULIDO</span>
<strong>Date of :</strong> <span class=clinicalNoteMacroWysiwyg id=[id number] macroname=PatientDateOfBirth spantype=macro title=#Pa tientDateOfBirth>1950</span>
<strong>MRN:</strong> <span class=clinicalNoteMacroWysiwyg id=[id number] macroname=P atientMRN spantype=macro title=#PatientMRN>[id number]</span>< br><strong>Attending Physician:</strong> <span class=clinicalNoteMacroWysiwyg id=[id number] macroname=AttendingPhysician spantype="macro title=#AttendingPhysician>Sarah Coto (Gynecological/Onco logy)</span>
<strong>Date of Service:</strong> <span class=clini calNoteMacroWysiwyg id=[id number] macroname=EffectiveDate spantype=macro title=#EffectiveDate>05/10/2025</span>
<strong>Referred by:</strong> Dr. Coto

<div style="text- align:center><strong>PALLIATIVE CARE INITIAL VISIT</strong><b r>

</div><span class=clinicalNoteSectionVisible id= [id number] internalbreaksection=false originalname=Chief Comp laint recognizeconcepts=true spantype=section suppressempty=false>Chief Complaint (Palliative Care)</span>
Establish Care

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
Stage IV SCC of the cervix

<span class=clinicalNoteSect ionVisible id=[id number] internalbreaksection=false orig inalname=HPI recognizeconcepts=true spantype=section suppressemp ty=false>History of Present Illness (Palliative Care)</span>
This visit was provided via telemedicine with the use of real-time audio and video via [employer]. Alyssa has provided written consent to conduct this visit via telemedicine. The patient participated in this visit, noted that her home health RN was in the room however he/she did not participate in the visit. The patient is located in their home and I, Dr. Carol Branham am loc ed in [facility].

<span style=font-size:11.0pt><span style=line-height:107%><span style=font-family:Calibri",sans- serif><span style=color:black>History today was provided by chart review and patient report. Cancer diagnosis began with development of acute renal failure. Admitted to [place] with this December 2024. Found to have cervical mass and bilateral hydronephrosis. Biopsy confirmed SCC, PET showed disease extension into uterus, bladder wall. Completed concurrent chemoradiation with immunotherapy, followed by brachytherapy. Admitted with complicated UTI earlier this month. Treatments have been through her local Oncology team and [facility]. Anticipates a follow up PET in June. [...] internalbreaksection="false originalname=Medications recognizeconcepts=true spantype="section suppressempty=false>Current Medications</span>
<span class=clinicalNotMount [facility] SystemcroWysiwyg id=[id number] macroname=PatientMedications parameters=ListType:Bulleted spantype=macro title=&q uot;#PatientMedications(ListType:Bulleted)> </span>
Per outside Oncology note,
Carvedilol
Loperamide
Miralax&l t;br>Compazine
Trazodone

<span class=clinicalNoteSectionVisible id=[id number] internalbreaksection=false originalna me=Allergies recognizeconcepts=true spantype=section suppressemp ty=false>Allergies</span>
<span class=clinicalNotKettering HealthoWysiwyg id=[id number] macroname=Allergies parameters=ValueIfNull:NKA spantype=macro title=#Allergies(ValueIfNull:NKA)>Cipro&l t;/span>

<span class=clinicalNoteSectionVisible id=annabellaio [id number] internalbreaksection=false originalname=Review of Syste ms recognizeconcepts=true spantype=section suppressempty=false&q uot;>Review of Systems (Palliative Care)</span>
<span class=clinicalNoteS ectionVisible id=[id number] internalbreaksection=false or iginalname=Palliative Care - Pain recognizeconcepts=true spantype=section suppressempty=false>Pain</span>
<span class=clinicalNotMount Carmel Health SystemcroWysiwyg id=[id number] macroname=PatientPainScale" parameters=LookBackDays:All spantype=macro title=#PatientPainScale(L ookBackDays:All)>3</span>
<span style=font-size:11.0pt><span style=font-family:Calibri,sans-serif>The only pain she currently gets is at her nephrostomy tubes. She will take Tylenol at times for this, 8j034ym or 2c460uo. Feels that currently it is not severe [...] type=section suppressempty=false>Physical Exam (Palliative Care)</span >
<div style=ucav-yoxbs-ozkm:none>General Appearance: Patient is awake, alert and oriented, in no acute distress. Patient is dressed and well-groomed,well-nourished with no evidence of self-neglect.
HEENT: Sclerae anicteric.
Respiratory: Normal work of breathing with conversational speech.
Neuro: Alert and oriented, no facial asymmetry.
Psych: The patient is alert, attentive, and oriented. Speech is clear and fluent with good comprehension. Insight and judgment appropriate to situation.
</div><div style=juxr-nwfha-bebq:none><span style=font-size:11pt><span style=font-family:Calibri,sans-serif&qu ot;>
Comments on Pertinent Labs/Tests: [...] the guidance of her local Oncologist and [facility]. Please see below.

<span class=clinicalNoteSectionVisible" id=[id number] internalbreaksection=false [...] spantype=macro title="#MyRole>Physician</span>
<span class=clinicalNoteMacroWysiwyg" id=[id number] macroname=LocationPhoneNumber spantype=macro title=#LocationPhoneNumber>[phone]</span>
<span cl ass=clinicalNoteMacroWysiwyg id=[id number] macroname=Locat ionFaxNumber spantype=macro title=#LocationFaxNumber>[phone]&l t;/span>

cc:<span class=clinicalNoteMacroWysiwyg id=macro [id number] macroname=NoteRecipients spantype=macro title= #NoteRecipients>Axel Palomo MD</span>

</div>

<div><span class=eSignSignature>Electronically signed by Carol Branham MD 05/14/2025 09:56 CDT</span></div></body></html>
--- OUTSIDE RECORDS SUMMARY | 2025-07-23 19:07 | XMS_ITS | CCD ---
Author Name Interface, [id number] lity Address [address] [place] [address] Organization [facility] Address [address] [address] Care Team Providers Care Networks Computer Consultant Name Role Phone Chica PALMA, Sarah Gallegos [...] Ordered By Specimen Source Lab Address 04/26 [facility] other lab See attache gomes Medications Date [...] Order PET/CT scan, sku ll base/mid thigh [place] Ordered 02/02/2025 Physician Order RTC patient teaching RN Patient Teaching Visit Ordered 02/02/2025 Physician Order Radiation therap y consult [facility] Ordered 02/02/2025 Physician Order Immunotherapy Monitoring For [...] Me dical Oncology for chemo/radiation at [facility]. Weekly Cisplatin and Q21 day [place] with Radiation at [facility] Ordered 02/15/2025 Physician Order Port placement [...] clinically indicated Ordered 02/16/2025 Physician Order RTC SUPERVISOR ADVERTISING DISPATCH CLERKS/PA and infusion to start with RT - [...] style=text-align:center>

<span class=clinicalNoteMacroWysiwyg id=[id number]" macroname=PracticeLetterhead spantype=macro title=#PracticeLetterhead><img src=data:image/png;base64,qNKVXc4QHwlXBKVDQSpUDvESGBYQIUEnQUKNVCR4H4kYJ KSEGHMIB6PUcx1h5LEBNFJdVJ4XGPDutni7EFPCAVNCaNrKqiYWYwULGE9TUBCpSnbARKuAMAYPTBoy0 B2DvZD0SqhSTyrbeyG4U eAuQqEQWCxrRvzOMhwRQIMCMMTwYuYYABpkPagAgSFdFETN5LjcUj9JCrduW+u8/Fqr5vqw4m93G40Cl jfwweqyxAvAQnZO5sdWk LIYKOzLQkmVsyZnM7SfQKR2gC/bJvpXDVcNgRXiNNHgnTGHRGToVFDYNERIyvOQm6TQpzZJg/gECxCGY JwGD8wKs9SxnFa8Ry4ey YqTgQrrgvUOfPDto11DFgrsJUNIf2wbEBEDdPjqrEFpKc8vY0jTlTjsPE4xlHTWqjm91ylhhwLS0dmFQ Tl8e2BRi5fqbKq73fCOD zRxUmEd8K9kXkjaGoFWBTt3JHaL6omtvSj7mMcwt4tQUeKKGRhTvBaZjvxJHHeJmrL3oB5ylb39jGFpR /EcGDhoy6UXh6ywe4Nn7 6oQw1x/sABhrlu+/nevfs3117X/tFEKpOmxSllNu2pTFpIimjwnKKGBUJFQ+AdQYHAQBQQQrV7+EU0e+ sSpOTaE55EPvyfoRj0Ye 40WYfH0Yhmrk5+qGOXZ4o+xRx8a//5qJzrLSgQUGjFBk2+j1D0YXfaYd98d+9GaRJsJacPIcG36oLufv Tx++/btVL9+felnmOsJF iDMdUdGRgYFBQVJ/bMDoGeVvlkTKmrGRhOOTKnUS4F1Ly4vp1/WI0TUlu8wGq+DwhxytRYW0yoSDHknX VYoP6n2clpcheWdCL1d5 Nfat93dN2UBit4Q381iEkMC6HGWHCutANTerfXkJq8fxHy0mR43JHYkZwkPEM+9tx04lNrPvLihvC5bc IEw/wpWrFhB8+fPp/Xr1 7LkFwFKdNfCXu25lKPohlbprTKV36PjRTnK99I/vosJrbx8JlKYHTEBpBQLfY0oNkMrTOLGxCObDn0os 47miUtaWnHca2JtZOM92 JSniTEPN6clbc1VWtOUbkMylsNTbjCXMkKx1Va71wd6GStFUwcZeYhjvJsSF1w0/XKvMTzc0fPgPg+6s 43dzxjqDkRmaVMwTjG7S nKcDwHpWbPc60iPwLXKPdBIq6rqtM5JlmQ9Ha8bi0d+lqm9YFVFGYQSbNKDTVnuMvPt29//vhQmDFNQ4 Q1lkpYMiXHkEODGM1IkO 0aYlZ243lprcvTtNBx06ycmYkO7O49wIm4m8c2wkz+haNrCN3bqtxxBv273Jw/XpkbuKy1tnWNJyGbZ9 gYAJD1BCWD6DIj7Jjj4G pIioqLpu4+M0R80LxN9AL+gD2e+MhHMe6bDNJ1PDl0V43Z4lS0hI8E7v++W1+nIPUzZDf22TU5gzHCdd vmVmEBWRGPRfzDllof9s YlBPuq7iyL5qKuMJBED8c6+t9Ay88dBB4IyPujBf6910y/IMNadTzO+LEUWfeUs162XDtNOv48VSbIVZ tnSt2/v4iprOc2KgHGLh 2GxgCzrOWzwdxEgxd26yz/PKCzBkPLPwzMJviXsfQ8uHiE8TDc23FFz4pZtW3BHKluOQkYCHugij06/M NAY/oD6Q2cISPvKCemBC +cafn7+jx6UGeGCuhGMGOF4ZqWjdNL3g70sf2XoWrULY277Q1IrtFPBRNVmtSY2gVDWRFrv8WjTrjTXh 1QdHF1HGm31StlNjbHFW 6W/kg41pPaqPfv49ZvqpFBA8wwMn4k/uGpd3QEBDsmBe6KX2yaNZ8eTjf6xkQidDCROi0FSHaNguOhw5 agontyC1Uv6clYixk76J h3pXCEJMHj8Q/s8oE01oVHRZCkFdClbAlrXF1a++xhm7uzsuaMdS6OjrLyRJDiIQOEkAEVzcYIQpvKGw QLWTZgIiMUPf//9dxXrG gy2//ozf4G9I7RXjrtgNJr2eiyN6rMRiV8pwvaXR3e6jzBJZOn+/31DkPrMEk0gtOaQKSsPxmJ32SPOD cC4tJcja19+sL2CS8TEl jTrSLrDOb4TAG0qzpitgun0hJxCcuOIrQsrsfyohw7ABL+Ex+QXiX7/g+gT4HDaXLsQyHlQ8CZCY5ysW woqTrxTsbnqSt7g8oxiz Qp37LNJe1/U2VJxS2pSMYjKzlEjy+gI7BDI9QuXvpUL1FkHlUAm92cDtFleH733uQf2x87iBeDvXHSzl H3eLlRKz3OXjDUS3GkmT eUqVdQexwwdOlRuddeZO/OYsmWyyn3RgwS6CmDgQLZKs6+hHDAGorcZpGuX9VmpzwWWdispVmTGnZI3/ PhxGd+dLjXrt7pnMmRb9 wjwmw1FyBgNbBFDBwptvt+CR72xE2RRENRwAlmtgDgoohiVaB7LEHcjWxFHulwaIUVeQMTbDIfubbq7p NG/f94QaxtDRo1jeIq+c zC0vRnWKoTaBAQ499xAYoBKMQk8LJfEeaHUj+9cwarCbjJDfy6MeHxcqY/359LB5vc2xThZIQpoZnKEH TR0UUuXAQ9AKEoIGb3YO uCMIgm1s+vxN7Ct263cU3575hrST2A8w+1q6f4Ac9awKbqs/wjCiFeHIEkE6Si+6OwXSb84oeCTRvkD8 wERGTpyqWkZlJCYRCdPn tk0Wzurg1tIMPWd2wSn0rRwtPF52thgQ3u9snuUKKDjpGNJ4g9GMim1r66TTGlxOC8GXkXYrpn957yYz wUUB5YzS2fD0SThycZrS WriwAA/ChCl+MDhwzTsiScoICCAbqhRnSa8+HMg85xHyikuj8/KvZEZCZOiiP5hbHgk1JpSHgT0pDjyG 9ZrJCiTx0OVNxuIItZlz OGwtTr/oAAKDQ+f7vLUGGkAiFs2O1HoYltBhBXKF5yphIqj/gGdcFfZ9k6+mKLjQud69zrg69w0gBrfw LHcP68am1aEnDqBrSwYG Dj+rufjXxGxKhiNBjHSJVtDNYLjTCACACMf8Hs1a2ogmZms0ypj1jMr6m1ARNhHpAaP6mm8A2QIPZO7V qd8c3M1dLuexah17dCKu tSHHoGsG0uVkrrCGaRdcxp6ytI6THqj5RyD79deLR7/c5fRf+BMPvvnZScmennhY6bvPfaZEOY3rPp3o mGY/I5ZPNQDyCn8YShni qJlH+eokDvffoex/jdbFHcRbIQnJ8MxilCptFeGnsDto9x7I8RGDUiBTT0AygkVBZhbBuKyN3+BzLtpo +ygWIGMsMagQhrf1z77r to46107gl8fpv+MkqVKSz/TNDJ3SlYQsUQd4IEZngvF0mzaXxWBOS6J1OQ/mbeoUcXeLDLlh9TYa1bTT JB9vHRU44jVW1gfygI8c nMLbVy/gZIyDWm+pqsLYDGMgLRI92TonYC6doWoDpBjuEEnrpS1+TWXHwYCp1LdoQHIy/wpUByTkJZJE 4sOhcuSW4aQGFbRxZq60 +9XIYbJ//UTHTRfmZzTdITSjhS8zAhJEjhVFFy6bdDveS/AxUImaKzCi4uEIsp8FKZ3sL1vY2cPxYBx9 MBWs0GIK+KHDFq8dIBx2 sCcY1JQo/5757n5r9l7yuAAjC0CIJpNU3NO+w+La4D2ANOP9HHhy07OC65zKDKdQQO6+w+U5EJDUAymT WtQUPFLzToVjvbn5ehGJ DAfFpvBirAxDGYemHr0t97zTJu5ZGuitVYEmxSWFUoammcMuP4gNaLdBKRat5a5LL6N4YnJ9gK3nXk6p BOl1MhyqAp+nurUrUcLl vQQOuur0T/tkkC1Zl6V9mkekie0IGgZWiMhPIUo5BDAP3mOwN/TGJbuMjTIxeOT0Qa0m7myc0Rq9P6zb eLYUrOTY1lO6+QWVkxYX 2v1JRjWelt/TnVW55otgaqVj2aD+GjHD6TnOCONDcT/MGu91HQrbAXRosC2Uc55ZX5XQH107yvKT7oE3 JWaLJ4quTmve34FnzGu+ oSC4KGEVDvF5sNUC7st/DcEQ0JYpfMtNs+eTQ89+QE2W32vLAshkLr79Ckuwl86GODVYiZRej1PLGnIh bRUBeeMxTDpKalBOp9Uj 4WGhdGvew/Ccs1qJC699GTwLKkjUFcxarAJiRcqZYb3NLTyMo3Aq7zKSgaz+9ky9rwV9V46F8JgChJhI 2KjkAyubnPR4StP9+bNk 36GyY/hTTqJP5JJcjovkOE61n/6ZbrvqdEUd+8gNAwNhKxeMXtOabDi4RSllWh/lk4nZX/gGJY1bJ0xO 3w2GkPZ4e2vi0NKNaAfE SsnI3QaMKWhQIJdsNklWc9iEWnr2SufLuTIKTcW56ZSdbPgdl71e750o7h/hozT7SWFLnY5NmELV0yyT slNi4kMxOnBixF8xFBnT 2m1LJlSQk+iv7VRs/FNNHXtFrp0+hz6fGT/UKWlNKhldKMcB16GTri2UAHYFBFSuy9+gQEUEhIgKuYwU ZMhAIqvHQ8DHpFfSalBQ v43lnR/ee9r9TXLBCtVpz9V2JF2/DNOPp1ApShGWTG3OGAhG36Y8YqdwDnVVxHl+z8p/uHKwnF3LY9/K xTsGP9m77tE/s1SzeEea uRHuAuLyXcMHDhQ+CqZz7kSWa72PSoXYGNtOXaytvrgy5Abc+X+ouTqcfpQsFRTNRR3nXj82ccDCuwGI 2wh71AhNqFn8/kPg+U4d 8F3jAdX+LhLdM/px1OuiXaWb8SHJl1/1DC5r+3PcfubCVBSG1nnlg2koVWY9amF1I+fevL40ZROipOWE JOvgEns/Obvxa5Xv8bwf ykWGeXclY6HWlmuBUjHkQgUOo2yJfw/XEJHzsRRTOFgeuPtObR+nXe7W0hgiSfbkRRrBngGAzuhrpTD9 UHWouKgLtKzmfUT4004S u4TlIzcXoNa8E9F0AMNbcirAAszcJrvlPe0GBcoF8tieTGc5JdVueIYwoySQFPBB0ih4LAMouNHDFBhI HUydzWVgee6KCPfPZQvM NrwWVIt8zCrMLkBxBtHJdFGkioAPenjzhcwFnP2Yk9xETazBw7JSk+A9xLiANP0J667O4DS4pbupe4Dt AM7rTz5NO/ipWe7GEUaI FpzXCjZdOErzNE1qYjLlvgEU0jrSePAfAI/24Yk4hbxCYm6ivtHy5SClPFceuAtvjcAniSqffQqrBO5y Gne8t4+VZK1EH98fQL1c 3NjVcSMFtXpEezgMyXwRur3Xwc7/t8Q0a1TUH3rZKkJNydD3IusJME+JfQMuvyoIM2u6ha/C7mSfrpSR KccxkWURgmJurr31qacI x/X1W3ImBX7IrvoSTAUyOodQSD0JKeJbYnCwxgzqG9FRrFPVjlarMh05IA+paqtoNeZNQXEA7IRWv7RS Rj/iXKVoBfUGBFLnWy87 flxK0yLmphTJy0cyWpM5GNyAJLdefhmKQNYLXyEl6OMI5e9tMy5DlXwBVWTtFU0v+D+ecVbLrTG7IlKo JvEmS6vVEbLCfAP8qHBw lS/yJqM8O1+iisNIg2opKQa0A47LXByW5LRzWg3t+vn70/y3b5WnDofsGWTlybVoeN6kOtHGSuR71SLn s7kmIgIVuThE6I/rATi4 k8HNgVgI95Vj8Wg75zFhyazihmV/P367Lak/TxqP31g86EwdLtR1G0SWtpbTbPSZxGTIpUVZQcEP0v4o sQBYNvWwyYEmGRcIN6Og zZdpp8/OZAlJr1RKIDUXi/K4K5ZpXQ1qbHp2NIb5psMhaBCQVHcq5rfk2X4VhnxL9J/5g/lL6Ko5Yflq 7rq7t8ePE4dXeHi4DVks Ra7PZESy13Ubgh5WX/KLzlwoxgYLmhOWJ6o2H5mGTVJkG59zGLbBP0oau4XgJrJ5hGLsgOa4YJB/AELE CZfMWjQIOUj+e6DClFJJ qBsRPyg9QA9Tvuaouw5CH3k4OYZHByPji8OrwGjLz4dWaxmVZjpIYmk9dh9zZ8j+Dc6/DToymc9zUxEG 703k+jsX5rb8XQJYe1qu +691DcqXSiU5CQpHnhKiYACPTvukwjvTDK6beSB9CA+epwyE5LvG2ijGrNcQL++PB0/qitIeCnX44zDR +DXX7AYkGc8PFEvoHTZJ yN3dohHASfD8HGXN3HORko7VNSwqotYcuBoF8WyKZ5yCLwym6KkizK+GxPAPxVYDGJoOS1RvsejmidNV tKOv+BB1SBeZEqEvIHjA eaZCwihn6PPoXkyYtVLViJqNVVMXXZt8NkHIRN4IoLpCDrTha/TWXeH9qUXhUgdEBbqYqHnnexLqjQCV yCj93QLMsJY7KW7zmWDT Jp7xk+b8JUQFy5RJiA8aOMe/krGoxWfEH+JUCWjWwjjJ3+vgwYkrkEKNpMhi7+kLCFEUoVASElOobtGm 0Wdx26nmiiRjxYExSZD/ snEeTG4m2+IycOsK34wutlrZ1FOpNf7zBnIsdNm1+Esdras+pyttEnJeyEUnIVhpM8Z2TmFqf+xQoqJARJ7 gn4UfvSpeEukcTzNS+6h do/DgKnulufbge4JDlWzoZrac93RO6kCwT3q3NGNih6YjyFbTBUDsGjdXYVwW6R+8g/PIu1vzkSadWtZ zbBmin5NM5Kat/tp29eG y+WKGe0YJXd0AB7EMW/vTOZvHxj5gKAXzIu/8DAFGz0B+bOiEOVDVjbiNrUVjolOqnkePKH8Zr+MrJQ+ ZjsvhX24ba5c8Urzkpay uvYE4YwxgFfXU+j9QiRHgwgirI50BJF9ia+/xH0sQ1zcZ49vXSBm3vIW6pI1zoYVUCmTTWlQN2b77jqv dPZ9j6HIUVe6QbaZrHyN cHv44h4m8JiKfXwIIEYiOf+4Cf6hLeETZwbuk7uPzUbLCBGOWN/zHtL7r+iktAVzdjit7jZRxZhh33sk 3kxeWU7Gt7yCZxWBZ2I6 S7+MfCP6gl7i41djME9tgck2CxtVKBZdud5moCbuLW30HtTqZMANnb7ebnX+WgJZwLvcWmuZRxDA8yXL CYOzHu2b7IAE/+U+xkmP 1YSmYjTGR1+BYj8sqNo6oLDKZbCsbw26wzfCRnLj1LOjwvOoJglaNWvdpE0KSOXYucTxouCFZ1pyu+KHMER oMmkOLSXglbr2xgEjIC5 4N030aKA7beWzYWioGecwUN0AzfXVSFpSYYRP1FuAaGmMyR62AD177QZ8tAcpFlW5jFmHd5ghZBz+RPW IAw+TIcIHs905/T5Mnmg PTiq7iRNyi/bxBlBgVRpn+SyTtQAxVFeTSVRow9auj37umeYRua9pv9rmZfxbHAzCPJUCbrzHyhkvxWL JbtaiM75UMPBXEaOHcyZ vXXlAfALaJG6XSwq2HUnEDHgOhEN8YIGTGD9ByuM3TvloDa7Rm9b4SrJpWkPJJRwNl+eVSNOQmGqJ84i nAqXnY371JI6jdEW3Xvm KqBYDLPoIHSxEiiEtyR4kCCuJUNjxacKzwh3vnB54tFKAWnF6Bt8DV4s3O3ynZzV1xuXifjI/mMholzg RPZHsy0Go0CYVUBCmXjz nNXUOw8yBDo0k1wJffcVtZ2iFzo20NsCOd3fmy4PBy+AEkxavvg4RiBTv+DIqqFSXhYGCWnpVOoqIBT5 Gx2hLo68BjQ/zOCStZrQ quewHXVxrCGucfL0WYyqDeihj7MqW2+6HvY48dHhhCLf6TbBtfZ0Aa8Wi0eKHSqdM4mO4LXRtui9JAVp orGlV9w9QqCqiKAotHWh IlWJTGRrA6twK7+tyZ5fddIam09PfACC70mwp5qehfWMWioHldnwIzXgiPFvhgYZ4oghySgxMQ2eiE3V 9U5vjpZU8bkGa//mlb07 fbhQrIqfE7EeKjua7JE0aRLQw5d9Q1kAtfptoBJuU4/wXxnfM6hcSH3MDWyWSB2T4QE/t9AQ539bVZRF pRi1FD1o8qN24NfZBRM6 OdBUnyQndLxEWKoH9JJA9eh2pdIzM5NHujjlp3y4BdiOrCqPXmwnt11EDPHb0VuaF6EVQb6i3XCjNtd2 Ny5k+rUqUMVb+tGN09+T 5mcLDPH2w+qp8yiaL/LgF7aew9MjkfWFQWrXVYtSbwzcz/YfXeg8uyvNd3GTygarqxKYdXi0MSe/OnLZ ZDMYmQ6dk/Ij1eQGtPu0 Ejh0CkrfA3yI81IDrh7qS6/4J1lnPZGqWpAsCDeR+lD3qFj2T3stmoWD5luifgKaEsX/tEY2jtHL+jkh m2v9234NL81WW4GEIakT iBMgeHTTz+dianne+++xbov4VjmdxR9QYrX2fdnJGxDm6YySD3QPy0rwa60owMBf05IrUZupc7XOlLdofmUV A4FGfsmpeuF45neC8bgA yMPyiAvQR7PdZMU2O2mN+K1w+QLpHVyKz601+eJ8or4pKqnwV3et7uHhm9sVsE7AJFouJy0ehKxvjABU k5ACtPCMP3sbvmBLcASZ RRnYG48jPWnB7XHJo7qKA35fgcpjMVCEaYctKFoCoz96t3mgdlJ9H+YbhMgqIVRjA1/fyFMgikwJFzW9 TQ3y4Ap/jwHQc1Yg3kiv kshNzlNUoGtFnBm2EqwBQMYW2XCEHCJAK1WLy+JbhSok5ATd3RRBWiv4GT287O74HDQ95j9jt+8CBnpy WQIDanZ/O5vephSQrKMl ObjWHhIqRNgcupMd9Inu9zlkTukjAvyiCAAdaRx/r5uO6Luf9aNTAJNfZtWJd3+vZz5xSxd0EYcIr+7Y O8ZVwzGV14FuhidBaGtr PA9cDIfKl7/mv1rn0jNXw2J6cU0cJB4w4i5tR+glOoZPYdRMdcIbvHdJ0EDdgFHriSBp2opeAbTLXZoP thWj7ULCWvZ8ZSZGiCGL n+5XeR/TikzmA+Xq78kGqFTsVM17x/gVCU1B3FrmPFy/KvRVMXLHnLnTpdhyJtw465D2pWyRAKfZ9OfV RHPHKqRZ7LGpiiOQEzFg HCZ3GAGjoSdMTuau99BUzVa7p3Bz4VmSWpupv9ZAPUGzvS6C4U0XExvevnlApWSDkGkQwMaj3Vfcd1+J eJS/GjqRJVIUPI/I6nu6 i4Z0z7DLDekFZi4161tzMrIXfYjWnwFURYyq1BCBhwnQcJIpujKVMP5luQ8m5lxgui+gZQgtCVQsmRJu WWYggBrIEyBAUubVKtWT jiauxiTccOTSnz9qscOgP7SWQ96uHwKWKvOMG3poXBeh5rB+PpQxj5tJINIHMLvGqLRZFE0zKiT5Ycbk dZ+K/xRxAyTaMf9Qzn+R wT8qOx/V5FDj2eBHgUB1fHbKf+xxRcQ/dHn6JZrSth1f1bSxj59XIA2GnHiKImeGkmdsBtywhzw1IIk4 K/77cNNBQ51KT5onxPFG RYgTIFCm/RGdBtAsU+/QTpzVmFpVoU2i3Bvj/jprod2qm50hUvBnwtRtd8rktKmeSTi6o+JWaWL/0PCK Csjjc4/NYDS//fq0Aqke Ab83dzjpiPnhCYUbsI+kDj+Mh8cZ+J4pYSDu+/8B6eGeE2TtI02spSN4pZFKm/1hRtw2o1k/6gYSnzpC UpbvVLG8+cSHXG8A0yiT CCrhU1YlHWmMvFcF4uP6X3CxFWIkWiTeSQPc7B+tqIfDbpUf5EQ9C267QBNyv4SgFXXEw1vQFYhSKs5T vnzdZSYNOpDTzfRMq69D 3B4g2h2xaOwE5AQ1uCtAKhmBt7L1lEC1HCAP0O7kJIHvhHTYuyCbxms0zTs78cQAcANjG8iy5QgjIBsh X4Rn+gfQPGnjtuER/Pmz jUAARpMSGKDPeK1giRZorpdwT10XCFKSgHnaxxh1tCio0EAnPIvEtbCuRtkRwiWsAwdSINYXMMWWk4G0 JhG8bWULpL2JxpJYDc/S unSBNiqCWRR+kffYRjE2jjcjBK/PSkwKJxGtT1NPWLUkWh4FYqmwW6dhMmRso2yTUrBNpSRJPyb9XaKy DJDgNeZWQhRT6OQvZ+aN Ki1EEFahGBDKEB01zBBMbByDM0UWlZ6VCCjgTmDWAGF3QlhcX0imTjvspyfrA0dzFYnOkLEs6yJWJi0V mqZzRD432ktQpK06uBzy 1ExZMRfIOOVYUTdmxKt/ZSoRBmimUIzmLmCqFgpom+IY18arEdhlEOzZk+gPKwOd1wM+c21yVi2blLZL g7Z8KYK9fXE3ZPDp77Qr HVgRnmyGtvFfZUv7LkHI0VhXh1ff4AZCtpGwbQ7Oy76MBGCzcdcoRvscenGSMXmWyJYITDXX+qFHJswi 1ZzmZVbxp5jHqUmuD2KH G+uIL/RGBKmyErH5w1SC67a+a5tFIxT0PVzVkJ/W+EVdR703GgHj91sRHh3w7OYf8QxgpDUH2SW8jpYP 3e0WiUeKp/Mu4QFi4oCD lvHXCB8SHGembCKFSRXeY3SgtFQExWsBZtJEJmzyHelTKTCSZvBFIb5kxPSVbnoGmzfMKJLhdO2CTDy1 BOLkGEWpryTqnHAkD7yB /YtMrb/ELUZw7Q1OjOFWZ8UAt7Nbm5eZaJ8pvrDzsmQ5OfeZ3uYQHdN34HbqCveCzDGg+a+kDCiO/qQX +8MHGb7nAzKqRTkYzPpT AP37aMQ7VvxQtHO8+wpMj5+j3z1ITnfIuw94OP/cg4PFfqLDzyZyeMQy6iWfx+1FOi2ZabNQMO1S0QLJ ksJKiSEQTLReVGh/y6Ex gc6cgps6O5T4C0gaaAi0ZFhgcDtfJplX5zXMMO3jw7PjMlvHXd0hjdBG8WBCXMLb1UfdY9QJy7nhTC6h y3ioVFNiQ/nL0R/HbflD VpYQ41dmc4Fudf3VNMfWIRJAVu1lvcwanKoyyBfc0wNsACVFxMgHqWRo2RROOxx4KiV1TaAGS7tFYgdX Dpg/4qI+MAgolChfYRFE p04DXTiDJHEkKVDi3DvFKq+DKgaa27gevBDLpcZqJ9UuJH9+Omnn+jPP/+NGiekkMXCuZB3vvCxci75H FuJVPmNfoVeccuNa4ELC bNWYU976oW1GtUaT+zBIQhHadpP3pvANYJmuhr3AopvkND+KhfJclfdXBckrHJDKLm5zrrzjMTGfNrqN Uh3IdMz99bAxEiRiTwvT vzYXjKLyK9w1suYcdYcRbX+Q3xIEdfIaKALCdU2lt79wuxP8u431H676TZDWGksB+KRMVBNTEVEtqmsT xD0gsQWxXkpA7zrZyKca HFAORiH7wEPPYhyyal882MSBM+WfxFOTCis5MnYTGjXAQBy7RRICbtRuqMYJ71/5da9i1a881JAtG6+4 48igLcKjg6rBvJd9sSq1 Ry5tDBKddERJm4OVUM3i0xxQAMKU0BqA2bLkGYoDiHGPVGg7xjrkk/6M4LVOEypUISS189eB4oH20+/r UIWIqNN+WEh8Rnqim9wE tOmTZN+dXD7rQsRxE9cAcIpTmmwi+uuu+zPVcm8YvTWvQDJMfbfU1aAN6Kyp7RTVZpQHQSukWSWnJy1l javpGrVqtS+fXsaPHgwC j7WwgUTeFHGmiTBNqYmFRFbsKVCAGNiUCKTUSFVotOCy7DEisOHo/dBRwLGRSmVV9yOMWlDKY5LRyWqE IbxCRYgDMMwjE+wAGEYh yN6mxJKfeTV3vUjLPmTAXpxTVZOOMfF+TZVQXIbKXJkLQgMd2ECXRZ+/BovBuKsLJhRv8mppRQ3gYPx/ Z9X8fqDSQtblBJHSuPCR UXFixenrKws+QDom1sE7uJZp3cuq69p009pbem45bsio5PSD59KXgtuzKGMcuXcHbXZwXRSiAo4uVAXx tSzZ0+rATEHHm2m+ROPB Psjp61H57eoLv7or7fW7gMVmRhkLwSy0NTQEcGux9iuuxnmwKxHptfEsp7KL0+evvjiC/7SG/Rm2yBXF 9SrL5KGXndsBr70qHbip esHIH34pPm+/mqvhtmdwwsvJdvL62qMp/vvv1+GGSa/4dB0MWo8b3sm111GNTWZQIrEr6aEtZkfHXPDm Fyy5tKLBHb/EytWrKDu3 grIX5Oju2/+mSpWrCjDjvjvf/3Oun26xIVEPMqGVu/ymUuKb7EiUP53Pt9whLRUb79LzAMXj8NrZHcKK 1TsjEp3TF06yMJz6HQe+ zlRGg4BS1r03Doadg/+iP21qdR3gUOdCippqJpH8tZXz1ACmQsjx7A76zZG8osLKxLLXFVlE7e8DOVqn eyQuoTaxhkoj1rvRzphY AWLiCLJqp42zVQhMXwVXD23UfkQQYVpyoMbjnGBIm1j+IyU5o3H932Li2qbH2SLxOYSiKKntfqUFgtA1 OrRowfVrVtXhUiOh/g65 voroY6JYwAWnCwzHFbzKL+++KLyuQcvFrSPm2++YaSHwZnj93/jev/9/dJOsNaT37iGZiLgPjPKWHtg5 VTIO95++09dP9rSjgJmB cw/p8lT9Ly026HyaJuXla0vFnzHDTSghCzaaCzW50s6kMPVQ1rCgVWANyrnybbifkwmtX3wt0VnWxKBR ETYzH/QU5vVbBIKcGTEg 567imRnb2YeREtHAPADfdGj175F44NX6FoMX+/bt0+OxyAd+xumAEbFpUnD2PEuUdC9Zhmz14TDuRUUX 4XQmu7wWvIcJEtLldRWh TJlpMN+3Buc63//+782x8lfJlc0QC+MAv5aKGUZBQtTZefCrAGHOEm6uJPBhd4hrm+OCrCk7R899WMVn RZp4vqrXqyVhIo27LG62 sbpIN2cggSUzgvzr7+tUrgHx+Ie4jfg/uxDAfy3cFTJQgYUkw55PeS7g3UGxU/9g0gu6xE1B/7880+aM rHWQMw2HACyx8148Of13 gtxZUznrZdjdsdjlRWRhNzdL13UqJsfGgSmU2nrfNH4W6kEy1idpMEgpfaK1MSy/fXXX/NNbJqOC35IP RlwGQuYWDWjR4TG8hHCT 8w1VFdqjpHLT63vhfxzz5/UsZSJGDz2bGmordhs5aCpmj79ptCd8jTsl0ilcbIgLY52MIP6r6en5QJPm 1rSzXqmYy62Xwk8ycU0G os8uAKZRAW8dY/kb12ySAfunCbCAw2GB+E9wfuN+01w0lGeojzWC3lo5bHsWCnYgrCf+iqw1CKQKN9pU aVwgXgpvUKcDAJH+sWJp F+2LzDegOcXuF747jr0oPDeMW0RiHx1a6mWI54dzRxcCRruF39ufguVv4KajJvFWbSabPXEEvCaO03o4 t6dmleSFz359joEvdQKw Qzp5BXSb6oknsv06wfgsbJrH2++5cgTYWFQNTN2kikaBjDe+++/V7bNQUEx6NqddMbsjgZ1CN+kdLg+I axs+9BnJXz0RrJixH3JO LFWelPnbDZtiPVoAGLDzXlVZCCQqEwNVJNIZKxt5WTWctxZCZysBi2l1v//fePGG2+U3vnag38p7odYf TVtZUIP4AEIQpmMSJkE6 sp0ttxasS7m7S9uP6I7SnKSUc2F4tAy7e6AMGAb87gciRAejb9MmvTZF/rBJTWIL0EzSDiZvLQnROC96 qKtQ0ztcevsAJ7RX5769 lYKPdTnt5kIu9QTvDLKJTCq82309z1PVYNVVCyAa3/5Wgg8275dFMqpHcZgX/MpVTLVbKd6awl+33nnH Vu5e+KLZ3Zq26iqRxHk2 f215TpngnH/e/Cmrfo5QspgOYwvwEQFfqQb03Ihr/yGZLg4mLsXIlu63QiyGVonFJPwhnkLZTeSW083p nQPMpAi8cCCxoVrwGWt7 A4avJc16+0OM3b175kwqq/ViYa/8fjjj1/3qyOTscCU1JREFFEgLmq2rfIHSfVmSArRm8g/RDgKd9LQV GCA9P/+++85jvVUgGiee +4769C8Fo3FXwY65xWGHobmgajHfWcABbRi009lI8Ds7bRjv49uWas6TKCNTtZZE/aLlp+KuRrRwpdpR KlLofPBs4EWNYiHsmcLp ajhereKvlKeQGzNDvrw5jlsRTCFFcQSglEc6i4zHykzx6tZflPQUf2Bwg9F3cXXEoqnshIrX2mIUUKjJ g163EXWGwPGDBxgWx1Kp z0Dtcw1878rBeiflm57jLRv45IQTLlgJWwtiMVZTxrdYhCAId/b4esxwloq8xCfet9/GIm7eZldbX01c uhAjMeXWiYArAk1qeq15 xEHvHuWlBHxWZ1y3bzUxanJEBKgO7h7ubNBnrP8boONXHlLr19thCacdKrvbfE2OgCgrsxGbGLMNuyMr Znnchm3ao9USH/XHUgnV MeSca0WSZaBpMUsbyRwxrfozguIdTVdO2fvDW/v7Tx5807N3Fi6x2LCdPD4t8F5Pqjx5Derj37IRJHSl QrVZcuWqdirQQvNERA8+ nbQAWrwsepcF12cp7nW2OjXeUzkhQYc7V7tH9xx4gdrxusnJ5PVCqtTXg1hflgGmv0l19zIRiyD30GSK kCutCaANMjPk/fy448/t v7hrdf67Xkb56/edGaj5pd5hWZwqPCSywWFXjaiiJloQAjoIS2ISvEFvNVS+EJae/W8kT6hx/ToIeMcg R4ZR/m4w+ud0EUSEI5Fu T9kTWSgMofdMIbuJ78zQdHxkNs22Mv3K8kuZkCwdHN5vvJQblNTYydrxqiFNgS6tk9m+q8gV17eeKEr3 T9QtGYGptE07C3fuoEzn +acGzwahs9SospLGt+nkGr1UXGTT1l1xUMRVtQR/mLS3y2Ip9lAjxUpuRJePe1kxZrGOcpS6RrjGNw7n Hbn0hcWF27x8cq68Ka0+ gSuEl0g4noO6o25r+QK8656V7myvcsNyvUgD+euwkcad+k7rxUVBEif7F5itgkhBe8u71RVnwiFd5Itj b++8902mkWFxv8i5slXN w5wj8UTlg6Y279oX6l4iBPddPNuy7eTgs78YZV3NzbZbTk9IbeQ2vyAIRXdsToo9Mm9VhIcn/112wXCO jhKiu69VFJ8HMPR2qtGy gWBGEpxYXMU9c1V/8Rb6PttlVysBw4LidPj0zRzbw6L3ZtguiQWWOQWiCxwX5EX8hwGDhK3k1xFDZN6z 5cQ/eD6N+G+eWb93kpwT ZZE1mnpIKQ4WQkgach12q+3oSBFP4RqRJG6LdNcCp5unHFxaDTGgsZWRADd2PGlJrsRVExfcwa48x1g4 kAENQkuj93+MtD0H286K +jSH6tv8YswzNej51w3p6MLadL25sphbLZl2/M7urj0DDnI1MQIzwH6QlzTIOJMcjMsFdg5FGRItWdxc ewLXpvxOmLEiBHKZ/Yesenia 51aWnfm91+JWs5wCk0P1072rdBAQNAAX81IXg3Oj0OYRenAOAQyVd9lQ617uaAiJIWmKd3vi+uAVYivf DzpmnZXout5xmgL41ElI DXDrt7x3EJDveMX27fuyWiTe0fk97d6v+FroYYWBC9gYni/E7LQwC5HjiNIF6LYE9a0e4oQGf/YW1D5g dmbPr39otlCsWoXhYt7p FQRCC6kQJVPAeCjxyZQbHcd+/QP1WmQNZTAygJnj7HNeoPvJeSOZvaMaao9290faNbN4zv4q4h CFTO4n1bG296Wkwx0+z+ 8oBPuciTnZWRzxEQKDnTJCBHciOfsnG4YHTDaptqcI5sE5ARlUExTML/san4kzULs1bDaaR3ARS5E1HI FpUyme+DV674GGIKRQ5E BTRTm1Po4l56qoqGo8sHwR1ovPkaLhphqfAFe49B9dFdm0GzjPVazcAgVVKbGfbUma/Uy9SyioMZFjF0 KK8EkS9hc8ijhKYwb2VU 1S+oQzvj3MS3+bNSWjbKkTStNdbYHJt/T1Cu1U+36OpFe099XUAzMqXMyhCcjEcswqa8rIN2lYRIWC3O AOEWRQA4tOv1XL40lCQd iBHi3jVxApGsaSjxvUQD6/GIkSWD9qodgSFyBzyXpvXXDekaR77I5+0fCWf9uYgMcogmlgEAIuqbTVn1 YXDhw/VyWV5oDApqZ9LE TRPtEktDRWFdAeFYdVxY7fqKLix0NbrVu7n9kh2y72pA3KXBhp2lPqTVP2B5y2h4peEnejdGFJmOK8od C379+9Qndj0qwYApzisI FiAgkJ4bgw1DjCLoz9odLZY+kkMqv2Egg0vKKRk7lL49tdkbzAfGVWBwQL52feauH2Gq1ftmpHuE35sh NIc6tU8l5XNoo/kmQDBi rGBpNJ1icjMmIZZlb0lGkphdXkdJ5007kxWOLFQ+oJ6BUiGmmzMAVX55BS4vVsiI7kpau7CBQ6jByjXQ MIWCqeO1tZHgMSdBktuW GQon+ikJ1jA49ee3uKNtTiHgNpWaEtmOZtd5sFwnwj22X1dZ/nHreFVlebC5g9pR137r/D3V6jXsNMRY c2+S8rNpuy0LjQw0JKF2 yDycku3HwvxVIiKXc3PiVg4mX7T6Jg3bno8uOh11y7bYOn8MnyHrcjRYIBAudCFEd+7sKinkLQH2FrE5 O9Z5NnNr8tS7j7m6EP64 uxxtN4zzeMNrZinFgKJHZQmZo7rXQ74xBEFjuCYbSAZncii+LVQittKdYI5hYpSCbZ7LxdieimqiG4iA WXUyLyLZ2MsqBHFfM5Se Va10FAtgngwqcBH4s8qm6a+Ub7xFX2752be+lqqBgvqTBSOnS7T9FOPCCJZC3nmkTKLbBBdhmEeBBACs apby8QucFq/jTPtBasva WgFwv851hvHS5wa9J7u28yrUmmnzEwR9jgicw4ScWuUYJXCWyUyhVbdaUH2YFayi/wMtCWtIUEqf/jhh 9IPctOyQTeRrqjRrQXJD 4axZ5SpwMDvqyDWg0RLdqKaOYw+b2ADoLUAPTUJ9a5FndMvVTE/ycVggBO1vwtWIOvCdLnzdYrFzj5o3 7XlNfYNJuvAqbflCddpb HavKiNDV8PBEDh8oFl6emHD5By6km4lgzqPcAZ6693kns4SMbk/o0Ff/iHEYvIiaEuHNAYCPvgG4FCGi Wc8UmSDcw8LNLfaUX5HX 0265QKzIPYwpt2gF8bT5bEkeWoCFrPcWiAelKT2mY56/NTenPwTZrwwaXWG/ZEE6VgMlyQxGGz7Cu1dW V1q47KaExxpqgXDVgHGL a3JjE5PMdLd0etHHugJHfy4aX0CF2Uytl53rssk5pepYYIenXsgOuFmbtl3PxHezVrdOYPw0nfhu1wJH akD4FcXM9gncEZ1DuRPW uYYQJnerm1XseVufmUWTKxPQBlSFYrBxS7Nv69cDKmbfhs4sVtIwCEYzgu2BnYZnA9k43XwJX3LcmkGh 8N7RPOtq/MdckzDlO5Ri Z20SRSJ+nbfJ1mJDWulp9t6Te238DW3EjRe3UwIqEXPOkBCI5So5jBICAJmjxiBlFQf5PbwXprh+ySwz AEofQozeInVmMpov83OH VsC96E8QeEXa8pf7rabzSPACg0zvgplkmMxCM8FoKHoEeFkvLyu3vaFmTJ+nuYAIzcr66eLSgZzo4ZwW 55XQ0ZFk3Tg44DPeyN0c /322+XW09+UuFdnpLcECb1T0hq/5AtKuufaQpSD2U2duZOYy5/ZYzXT9/CbTzxl0x6Hir3iTqkl3Vkyl SewaxJ1H5/We+DJ/Uevi CSyy5f60KaV7kpohvcPl++1390ego87HaB5Hf3JEjTvcZrW2kwj1fnqt/hNwYl04BGRFX0Da1W80nOKx ZUGnU1PZdV7PVpdJ5rAz CVEPwlZchzZAUHWG1GYdvAj+KdY1vudKkacB5FkqoUfwliEKTJsi9PFGLsaN9dAvoTpmDjXimh4W8Bhy AbLl2JAMp04SHeR04dMQ fsCczo0nvnqTN85jYPyG6YB5iamnf7AcPkgAUiq5TqqzUyGZwOUiJhAzhwa83ygItxAk8/a78DdpDjaY b3t6w8rvpkrPCIpXrZMU js06SEOkafeYNSf2nOn3LI3bW1478oc1TWodKSN62w15IwK4eCc730iXENHUUZTEa4RmgW4HtROkQbqW wzodcFckdcaiNcCRC+ei XuEncE7BbsTQ7LMG3uIMe2EJ+/1sa+11jzGzN3PgGAbH7V+OH1TyLIkQ4YjtNanrzMhwhXE1HhP8zFRR VHnNfCOeQ8B+bFV0070E vw+eW6u9xXZcDL6l8gxZSKv2NQu8gS6SJhF51ut8+4HdGppAZ2fGOjdohADCQc8eap4nzPzcDqN4+KqU KGCV/vAe1hpfio2aWlPY PnGIwvK0pCtcTmmTPqhXPrqO6tS7oaNfMGiEO3slVmu7m1xWutoOS9FqbytMeJaMzGdR9h3xrx8I02r3 oEhvZ5xQBpNPI9cVbTmK EYYD8B+wUD0+9RO8FglCuaP3kfAiOJOJPeUp/Ja89IO/a/e0dKtgoO8mhOj7e+GV9zcxA2PYMrgm2cF2 C0GMQxEn7l0JuVA1J7ZK +V8i274dBTNcHZGbrZwE5r///8ytiXS9WGAG+W6V9amUaKje/lkJBsOWjiLivlAbGb7q6HAQtoaloLsX g2jdSSPtXA86ur+4j7qF 8AgsPXzmqTTld7Hp1mjVRByPyen5IKuNxRKYD2PeLatiRezRSo2K1rh6zxHXxfEdBMD3F1mQZ3gvWZg3 Ka9MrWhwjWZmn325HXnO 0usEZ793hJDBnDzE57pbxQdWCdX8HjNT1nz3rqlTbUb1A+xiIuAIxYkeYA4b2W2lapMFxg19HN+gxVr3 LzZTw9l04AbC87GV3VB5 Dk8HRRPnuAYol6RfnCXqt6J3vA3CAdkynhwqaOiAM+N7u8x1Cht7CDVJAAoXSbNxUM5qNzDBtZkFJRm9 0jzc8Eaq2wXusSlCnkk9 uXSGULSD6WMENvQTmVMwJYIOq+JrovDWOBHkrYMTiCIlr3j2GjUUENefPxLWMZsTThbx2SRoTLQO3T6Q Ov5qYBRrJSBpySOOmeNN NnHVN15MKziDWVvTLUaTj5QTfszbZoxoaCSVOG6xRKpRNRPfnmry6tsRqvoN+mLP2a9VJ0l2L+Ia0D/M Bck3PvL06aId0L9Ra1gK UJLt6JgxU/qbgnWkqFxJ9B15VedavaT1hdnMMhfZ+4f+qxFK05+YXju1btxIWDuAy6jOlktpUNhP+sbx UI1aDHb1EpHTrlp3ejPY rvqKxk29nxa3rRiTej9h6VAo8RGVSq/al0Vf6F+QG94mNeBC8MquXz4m+WCTPxsrU9QuHWPOq71+xpMn AXEvMBPDaeUpPgBi054d sAfTMqOtNfw5oSpxp1nDPrLPPPyL7eKuo/VeV6fEsoUlgL+iKjah0uKyvTck5yteWQYgrw5//770hQYH 9CE11ZNklaMTESwTzX/G q0n9uC6m9tM8FRpyBGsiKK63/isnWHJ83EbfEzn98q5lzB7dMRCxMqRcyBo24YuwG93mRtzJw+X7YGJN yrzKDBjjuedb9VxVBc5U vywEjHbnfYKfGuE6cH+6kTqlBcwz1/zOhozPjQsXSGgHYSlGKl8PPT+G9VnvGzAjiB1FtrJcxKFCuKnX BCGYRjm+oEFCMMwDOMTL OHVanXHm9GGmsGXi/zYXlBNZXsCI7mRTXcEKI4PFgSwSAosBLZaOVTqhR+pAITUybZ6mqLHxcAZ7rHmL BiGYRifYAHCMAzD+AQLE BSzNQSzPBVwTDExOjJFrENAinKIKnTIiaAKS6STQSeTPBlYCZoMCEggHgyRBPIcNV0kOtPtFZE6EBiLd vFOwhy5ZzTfmBBZ+fn5k b+/i9ujD5ZYXxjEyliayCGKxNLYxuEDyevOv1gCEloB9u4kbfOzvmd7bgbb7rDLW9swO6vbb07tac2P4 9xzD/Qw3zHlEnslJIqvG MVfdzj18UH+/KwcW6gtOloOarUapZly3Sw0FTzYNFM9UsuVfy1eYy76SQJzp6peyAu87yCY+bdq1Yp+/ ozqxqei70+kk6nlu921O k6463188hvaXg5j055/RzeJun9gQF6v5zesfh5pBLkV7vm9Y5rZaLwaP3wH3bF1rJpPZl4Y4+7I4fz/N WTI0KVXpNkBOaNNWcPwT YpQoUKFqG/cdwp9U8lP0rjVo6RatUOt63FToz+cfxezlUJuFYiRWIVCjcTh51JSJ8cf9Ryht4oBaewgw JRHNCcFxwxkBn7WFr0DJ PyMPB8ycTWQZsG8Rw1TC3yxJ7zDUMtzjmhCXWpYVj+mW2+3AZpOmuGc5cVAW1Jev/hslz5poDbEA+kTM 0rQXZN4+/btjX79+hm9e fBbbX98sQOO4NAHtq1KktRoWQT12+ap0L+LkBt0vh4a4t9245NbpmN4DwjAMHIUhRee508/s1NBQT8uP DDQEIJYOoRPnjypUuSkc NIZxt1pXI9bX20XctPhERqlljSxNYjGCh25QWx5J8+VX3/9YyPdDjb0obCY0AmMQmvxtnoF7ccc9siE4 Ud7r7XBvJRlgSk4VuU0u fvs7+o447hyBylEq0/0HhZXLXvWshuuP0cPIOnoiQEkpfMPmyk540dKxdkUTM3hvbhZSgsmHgfu7rIqQ AhWbaDoSxStBcsHDw9zJ by2Vxmk7abM21TjZ5OyufZVJBO7yp8gyInNwIMcH0cE/Si/5efzDSGlG2/EvOq2aP4RPatuF9j/T58+K lL2fFnEj5pPo6VNlKIx6 aoy/M881JEC5DG0BaQOYSrmVV++LL7XEiUUMVJa5LW1G+KI14mcLn4r+LHHHlMpcvLXX3/MxfxA5eN36 Nghd5zZuqfeywsfydDlr l/Tpi7EuCdUCGnYxb58jOM/9kMZCvYZM6Kyfp/1k08+UTEmlSpVuurhIPzLL7+jhUURmCElja2BKM+PK 92IY255Y9kb68OFEimnF RuQgA2rOO2BS2Q02Be1mLzkFJXEqv8sZH0//QPan1n6ZnQNTffJazmFYgUaY3+tFiTZTkPB3fk72SXUD fTvUgbqKbhBaTx8WDN0n ckPX984F1VCfSjaWqcPLfLN7iHVm3G25OYlAHiaUZ97lwGzPb5RHLnle0qZFpDSMkBtqM+z8oFwh0y8E udn5cepI4PXNT0Qtidow HX+riJryCGwzSw4oorPfoJOf2A7c7487j3bVz22f9E77Jf3EFKvMYxqB2v5Q//8c+DNeDNVm110TWwz4 2+/AUopozm3thtB61pkH zgoNhsK7MHSHgC4eGbcb//4ddadd3TSVxhk5bXaJvrvVUNogWLyzNyfnuxZkoPT9GkLgkdydbCyuDOkS ItVbiXmJlUjlWifHyB19 UQa0TI7tIhowL/FlNNo4Mh532dR9D+++lqv0avJiX7ddNRmthijgzHyGfkptzXxKqBwMAvyhJWkmmBp0 qUT8SPkVXjPt44XcDIeH QeNBc/H2fXFdaTNvZHhiqRA/O9//9Xb0ESxTec0/K6XDQ9hW6SuYh/RjTyrQHuaeMXm2Bze22EIODnWN yLA0pXgk0grfv2++KGxd BxX1ByPXfKz3ddjqVvv57kDx1Bsd06kA8aDfqcJJPlEO0EpVHbdjEh2fyQkcLnugAl8ZejKoARnku63I xQMD1DXBG+UD0XdJ6wPB vUO7jzMhwC7hECOlseS0PDPd1N7g5BrJGWdF+7/+pcjHBb0kV/64ueUmNIVFnV8//13TbCN2a3bjyuyB cPMdfUdQZW6DUAgxDqSF Cx466WqDl5rHBCyIM1/FZUT9juOnXIVi2aaYgui4hkEi4XRILQHdioi6LWkkZQv4l674tVOscQGH67+z oKlNPEVTyQf99lTu359h 1kxLm512ffm7THXjpADuQMEheFtxCuPv/Uj7pZXWJCTpoBIso63TMc0xctnHp+3WnZxZS5U1QFlgtpcv 12e9/7777ftx/PI62cCS RPyscbNAtaz1DBOjfQmutxdlTRTHiaWeWGFE8bPTWWGj7ilMLa8+cgmFsq78qDGoh2OQi1nyRGxZqKBM psqErW0pPP/c3hW3PUwf gpKo3qwd5247wCORm5ViEZEah0gOrAU93wfpPra9B89dPSlnsnFCMkeXms7pAfSa+nJgBGC05laxROs/ dj7H8XhDWayZCDrzYL48 jsTIKhHsP+IL37IDvOxatYBIUPVEsj5RjBMLuUA3aGovc//nVaLI25TsMJwGctb8i686rI+U+jiOG/wL mMVUXXilZNv4xicve5jL PZZ087wraFtoSgByt6jnMCUI+1l21PP3e0KUj80PZz2woOM//zzzzKsQaWP+LwA+ce9hlKPzEfo/LTDS 0tYDOP4Wp3D/xUEkFk2m 5wxefJkl/p3KHY8Uaa+/Iw1doXLfab4zy1hJGot1f814AhvuAQYA3xdXTz5s68yHIQlgvi++ecdXou+R jhUltYGgwaCyNGxAJVm5 31eDgz7ymBK2x9hBBN7L3xFuMxTOoK6PzJdLRKYpEObqe0OfaKedT/+0i7HBuKTB5Nl495DHSpJ38wef 9xaXf/+/VUqE+u+smXL2 vzQkJzhSoAAHA+b1FkMq6/GsZcrfhLVmiUwxhNYmH7PtOoPT57NGT3GlZ6ifymz68LoSIt2VNS+QaN3h K1C93Lzb/ITC7ahXAMmZ bn6xwHRBd3dkSVLJVUidJervOizoEzxrDFCfDYteaZXi6ebzwtgYQyTGsNUdSTNGPryzFXLkETDG5SBn c1cxEOUM02VY2NwvB8// DY5Xe3CS6/F8bSxYiokWL62aq0Pma+CguekMT12uPyrLw3vTbcb0aMBeBIWNFX//AFYtGyIxIwyCv5d5 wRL9ioUQjbZgfgjvUHTK 15yGueP5wv5dB651uiWq1RaDkbUdyVLF/TLL7+HtO8pYR7j9eKFbYULAzCgRGvn9zs2s4T7PZZE91TTo sHV/nwFQBbB3ZfgIKaL6 kxwavQsbCkxW1unh0sFij+pZlZuw6q03j962tBV0JdIG93FKjubCWLr0MABAypJQew1WdcMnyW4xVTF+ 4JVRsdKQBAR7N38VNpwo 2iMemXFZM+6sfoEjjB1C7WDh7+pV7KsfTPIZuimz4Ci5sK++fQlllq2RfmXkST4dUpjaFNqejIkWSfNb jf4YfZHLVnYkUwfNo7DQ UYLG9JJjMdiEhTQEwEx8qL45Fr3Ry1c1kNfBfJtCFjp0ncUCgWsrgaUoL+Sc0Oycp7++knmc/ToURVjg sbAq3JQvn9cr+6KcQYsu Vm3IP05JFWtHuvzY8Ej0yySA/izH69elWqzNwKgeVEkbDAHlqDxMVF77fHtwYBjRwL6JSf37bGocbFG5 OxfM2g445NyBoZE0K/v7 PgkXJx3trIl1HKQTPBzoXmAdfPZPkpqII66SFWcFR/I0qoFjyBPcu+QLpO3eImclPhoixAOAKPoiSZnm zFhbUEzUat14KpOfLs46 4gaPSg1Jj5CqDxyKedxGJlEwRdcFb5sxjsfTpwlBwNrhsGgtqIe9JxkkTsqa8Ipl8ZQEjzGGesGG45Gx OuH5tBvFrAYvx4FtFdeO 0Jt2xex7sSeQRi1gsYclgjNQU1YB2+yH/tKjYyOvIhkg6U7CCaiarj5898RU4dQRzTApwx+hH6QA4m6B s47bIzo8jj3KwLZpBqDh Atkinson/J2C+FqJIQVt7gYmgIln6ty8rY0g1ltpOyRHLupjj5jBi5ACGDIifeQD0NKBReRH0GXHs3Q8BAtVJF McRM10ySFVLYLDeUZlVU ycbbgBpqAevKtAGzxLH0vXz6YrirStNgkl8N1WVZHKE6qzm+G6ovMfsgdaSH6N7RQZyHJD4U8HDciBOP OLfdgsOs1bT5dNDqwEti BaZxesLBjswBmShqazlTNIvHmawtpNxtaNEwYjXVWhA2mEo/E4WZWjVGbrrjRHJzlu8Vkg43y0sa8lZB 1Nu7X+/eJ6Okz5mRWfdm QQBG9kzRFCQKDEz2e57j+6C8kWpYPlC6VqfVFwSK0RsCFvVRBdUR4Rj5TGzPXtu2xEAxeLckz0WQh9Za GlQcaExgXtRpUoVWSmhG u1EiPlsV7/xvTtcXFE7grTKdFERnGy1QzHXjZPdF1yc4f0P7lmUlZnD8VobNwySD/CBEBYalaygMJESz 0Dk6gxy9NiJ9DkIbBSPT nDCn4025WjvujQBMFPTWvHbbQIuWCVqWLI4YfnklKliisZoozeOFRtKZRHGlZP0Zz8+vud9vAo8L2o3w ot53iz9nkEG3JyyxQGBX ++cdeHANXR98hOdBFj6fDsgl2RIAxu00y/Yfxqbi56RzgF50IeM76LoIjrO0X8ld5LHD4ARkvBLguhG2 WG7vCR44SBQXlxIjgxFN 4qJPQfOfduR85lrsuvrM/uuMJjOId5+8fYxf5U7o1Gz+sNzClriiXEaJpznMLQzkttuHP079zpHSQDtV J0vxPuX1+iE2Oxd7jwNQ 8Q7G/f09hDbJnpb2zY7rAeo7JrBDED3DLJUsO4m1VF2WwsH62W/2U1b0+D6sgWMixzOwAWXrpzb5VS5/ 8dfsOgj0XjKw0H7bzYzW bUNr9fZPWo8KrGtQIfPv4HJ2yjTZpa8FEpJjkkmpRf4ClF9vL50KlP7GdA5CClR19gEH9anILWbc3Y1t nRheZfagp4/6XuHfn0NX 5CfADtmN7rXUGcAGCmW4tlXiSDx2Mx6XPM/0RbmdvrLiaJPRKdRa01+lr92wmg14z1lOBlk0uPHruAre loDidafSpFducHBlhtCE W69bT5ABJ3KQZHAJG1FiNOG0YBgFoSdPA/M+1WySIFmX6u2cPaHRy3AiBqXwpefcK/g6kPwemQWiwwZE M8jHI9iEJwRbHAeJX7Oa huutQDR1+bRWMTcQznwxGeSMW9OBfkcG5fUEi9SF3ZOQUncqZzjBputqbpt6r/XcbRfYJrrw1876izDP wAd7ncTwLRCS7SGru/+K I/3Fk/mQmC/c4uz7qgjvkXXM0YSIh63R4iLP9C/dvdikygPp2nfo5ImdZXXkwaA75MAA1VBlTLg5zeEl IgN5eiZkzVedsej3qvHZ FnIUdhdsJxuWjOO6r+jm8S+diO3fe86t43a4JSkHguqY9Uge7pkZnPAqoQ9TgQ4kTJcK3BWGHEtZ6jVw UMHp/0vuvS0hL8b+1t4+ +23U/tg3bC9P/DCEnb7sworBGuUgIM79xPSTBvT5v4n94PdCtpRUCXUApWbL4cQnv1DxwjS8aIeCMcOa sPb5BDCBPPXfvrMczNdn n79+diPDWeMrn1TCDlYSa9MC19U3280i8ajXHjPbBfhc/dDRWHf7R65S4Xhvemb5vfwv2wXTR1xVQyVA TAWjLL21bymz6BN2kdoL VUUw3IkC9phiTvV8nzIo7I7slHnkIUUdPrjUlKcMPw8tlMWeFlLRurqnZn3hsU86SlIniOyrfT95vAfj O4c3R/hKNLYhFtfole00 0odZT492znH996pvF2WuVDDvLBZ8YDH89C7omoIm4MHaJCt+ef3yaYGE/bkW7bZ9cW6xn9k7GLcwWgXf YRngN/iCoz/2E0M6YU/O 3WsNb3q2L4sfvgeTRcPkgheUqEClbdrVaDex/cB9Q+6LZEG6/KfMiyM8JbmX50vAZLa3iAEBBPtmQYOA EIJi7/6h4xymqrwwaTrF cw/V1X5UlE8ZRe2gllmkSdR6ZajCY1LaOnfInHtH3L1pF47n7VliO00UhXbMQnbhLA/FND8+/dff588X 0/ICSSCb4Bxwz9lMDLUy JqMLiBM+vkngIUHWn+wsGL+HlL6Pkd7VXwvkeKJWUJKRut8oHflJtaRXgi0kjFXv+CegPdJSc2e98jFw dkvNRvOQZfw8TWAuvNWx idYgDAMwzA+yJOWKFgP6JyAWOqNXRmQsWMeFSZeiQWe/2Av3FBXF588LDYDTCrITrGgLlXC></span> </div><div>
</div><div style=text-align:center>
< /div><div><strong>Patient Name</strong>: <span class=clinicalNoteMacroWysiwyg id=[id number] macroname=PatientName spantype="macro title=#PatientName>ALYSSA PULIDO</span>
<strong>Date of :</strong> <span class=clinicalNoteMacroWysiwyg id=[id number] macroname=PatientDateOfBirth spantype=macro title=#Pa tientDateOfBirth>1950</span>
<strong>MRN:</strong> <span class=clinicalNoteMacroWysiwyg id=[id number] macroname=P atientMRN spantype=macro title=#PatientMRN>[id number]</span>< br><strong>Attending Physician:</strong> <span class=clinicalNoteMacroWysiwyg id=[id number] macroname=AttendingPhysician spantype="macro title=#AttendingPhysician>Sarah Coto (Gynecological/Onco logy)</span>
<strong>Date of Service:</strong> <span class=clini calNotAultman Orrville HospitalcroWysiwyg id=[id number] macroname=EffectiveDate spantype=macro title=#EffectiveDate>05/10/2025</span>
<strong>Referred by:</strong> Dr. Coto

<div style="text- align:center><strong>PALLIATIVE CARE INITIAL VISIT</strong><b r>

</div><span class=clinicalNoteSectionVisible id= [id number] internalbreaksection=false originalname=Chief Comp laint recognizeconcepts=true spantype=section suppressempty=false>Chief Complaint (Palliative Care)</span>
Establish Care

<span class=clinicalNoteSectionVisible id=[id number] network internship albreaksection=false originalname=Oncology Diagnosis recognizeconcepts=&quot ;true spantype=section suppressempty=false>Oncology Diagnosis</s nava>
Stage IV SCC of the cervix

<span class=clinicalNoteSect ionVisible id=[id number] internalbreaksection=false orig inalname=HPI recognizeconcepts=true spantype=section suppressemp ty=false>History of Present Illness (Palliative Care)</span>
This visit was provided via telemedicine with the use of real-time audio and video via [employer]. Alyssa has provided written consent to conduct this visit via telemedicine. The patient participated in this visit, noted that her home health RN was in the room however he/she did not participate in the visit. The patient is located in their home and I, Dr. Carol Branham am locat ed in [facility].

<span style=font-size:11.0pt><span style=line-height:107%><span style=font-family:Calibri",sans- serif><span style=color:black>History today was provided by chart review and patient report. Cancer diagnosis began with development of acute renal failure. Admitted to [facility] with this December 2024. Found to have cervical mass and bilateral hydronephrosis. Biopsy confirmed SCC, PET showed disease extension into uterus, bladder wall. Completed concurrent chemoradiation with immunotherapy, followed by brachytherapy. Admitted with complicated UTI earlier this month. Treatments have been through her local Oncology team and [place]. Anticipates a follow up PET in June. [...] discussed.

<span class=clinicalNoteSectionVisible id=&q uot;[id number] internalbreaksection=false originalname=Palliat parehs Care - Past Medical and Surgical History recognizeconcepts=true spantype="section suppressempty=false>Past Medical and Surgical History (Palliative Care)</span>
Stage IV Cervical Cancer
HTN

<span class="clinicalNoteSectionVisible id=[id number] internalbreaksection="false originalname=Medications recognizeconcepts=true spantype="section suppressempty=false>Current Medications</span>
<span class=clinicalNoteMacroWysiwyg id=[id number] macroname=PatientMedications parameters=ListType:Bulleted spantype=macro title=&q uot;#PatientMedications(ListType:Bulleted)> </span>
Per outside Oncology note,
Carvedilol
Loperamide
Miralax&l t;br>Compazine
Trazodone

<span class=clinicalNoteSectionVisible id=[id number] internalbreaksection=false originalna me=Allergies recognizeconcepts=true spantype=section suppressemp ty=false>Allergies</span>
<span [facility]Not[facility] id=[id number] macroname=Allergies parameters=ValueIfNull:NKA spantype=macro title=#Allergies(ValueIfNull:NKA)>Cipro&l t;/span>

<span class=clinicalNoteSectionVisible id=sectio [id number] internalbreaksection=false originalname=Review of Syste ms recognizeconcepts=true spantype=section suppressempty=false&q uot;>Review of Systems (Palliative Care)</span>
<span class=clinicalNoteS ectionVisible id=[id number] internalbreaksection=false or iginalname=Palliative Care - Pain recognizeconcepts=true spantype=section suppressempty=false>Pain</span>
<span class=[facility] id=[id number] macroname=PatientPainScale" parameters=LookBackDays:All spantype=macro title=#PatientPainScale(L ookBackDays:All)>3</span>
<span style=font-size:11.0pt><span style=font-family:Calibri,sans-serif>The only pain she currently gets is at her nephrostomy tubes. She will take Tylenol at times for this, 0q388xb or 1s647wl. Feels that currently it is not severe [...] recognizeconcepts=true spantype=section suppressempty=false>Bowels</span>
<span style=font-family:fidel Peck serif><span style=font-size:14.5010px>Has been constipated, more loose stools now with the antibiotics. </span></span>
<span clas s=clinicalNoteSectionVisible id=[id number] internalbreaksectio n=false originalname=Dyspnea recognizeconcepts=true spantype=&qu ot;section suppressempty=false>Dyspnea</span>
<span class=&qu ot;clinicalNoteSectionVisible id=[id number] internalbreaksection="false originalname=Coping/Mood recognizeconcepts=true spantype="section suppressempty=false>Mood</span>

<span cl ass=clinicalNoteSectionVisible id=[id number] internalbreaksect ion=false originalname=Physical Exam recognizeconcepts=true span type=section suppressempty=false>Physical Exam (Palliative Care)</span >
<div style=plcr-poaxx-vrjn:none>General Appearance: Patient is awake, alert and oriented, in no acute distress. Patient is dressed and well-groomed,well-nourished with no evidence of self-neglect.
HEENT: Sclerae anicteric.
Respiratory: Normal work of breathing with conversational speech.
Neuro: Alert and oriented, no facial asymmetry.
Psych: The patient is alert, attentive, and oriented. Speech is clear and fluent with good comprehension. Insight and judgment appropriate to situation.
</div><div style=blku-eqkvi-hdjo:none><span style=font-size:11pt><span style=font-family:fely Pecks-serif&qu ot;>
Comments on Pertinent [...] the guidance of her local Oncologist and [place]. Please see below.

<span class=clinicalNoteSectionVisible" id=[id number] internalbreaksection=false [...] spantype=macro title="#MyRole>Physician</span>
<span class=clinicalNoteMacroWysiwyg" id=[id number] macroname=LocationPhoneNumber spantype=macro title=#LocationPhoneNumber>[phone]</span>
<span cl ass=clinicalNoteMacroWysiw id=[id number] macroname=Locat ionFaxNumber spantype=macro title=#LocationFaxNumber>[phone]&l t;/span>

cc:<span class=clinicalNoteMacroWysiwyg id=macro _[id number] macroname=NoteRecipients spantype=macro title= #NoteRecipients>Axel Palomo MD</span>

</div>

<div><span class=eSignSignature>Electronically signed by Carol Branham MD 05/14/2025 09:56 CDT</span></div></body></html> * [employer] SOFTWARE CONSULTANT Onc Consult Note <html><head></head><body><div style=text-align:center><span class=clinicalNoteMacroHighlighted id=[id number] macroname= PracticeLetterhead spantype=macro title=#PracticeLetterhead><img src=data:image/png;base64,tXQLCy1JTniCEVKTQPoZHaEQHRMWYEZxCXYNLFQ2Px+UAAAACXBIW BJDGL6QY LEIeMNTTf7iKIBLhagLNXRTGRn4D87gGzTve9FyHrzcuXXROPDNYW69aIAhm8T1ARCnZ8udUZPhu92sR KlyDVAXVX3bSBWAOLmdU CryTUP8LsSzcgilHWRgDo8hAIi9pQ7emGW6XSR5gFqlvjf8NGYjKY6hGQgzrmffBCAjZnMhxQf1kDV2o p1vAAWyWlEnOC7WMUOwn iEsKz1gRYBoFIGwBjuuFEU6URS2WPE1VCJsKRRuTdT6ZsGcFJYhHoFrVzEbFOAlVVTyMPTzWwR0ngQgT fONMrW7eLngnawgDKV6G fs1yYQ9Bn86j0fjvkAdl0RlGaZ1UTbaQWAoQnYjtbJaJOY3bdKznE6pdiVuPzE6icVaSePwl5TlcSA2b Y3cMQFpZcvhWw27nC6zO yX9vSdrrqs6bCF3Pmm4qVO4Vo6aze4fPH2jJS3ne75nuNMnXsUuFQ6gDGijuA2jFwDpFAXeyGYvLb1em QQblD6lzotjGMIqDIstb EFmhLDlQE9hMtTfxR6jgzJ0qCbzrW7eoA2xUBVcpDJkMc6ngaPgXHPqCfDsT41eP4Kpy8Gvh5ytjD5xE cXqRyH2zZsyqla4fEJXT A2jfAU6tFziV67yNcCsu9EyIgNepJ96OJLiXN3pE78bRrTzmY0uvrF2f4XRkpO9Owj5tNG6Mp1bwl1zK M7oYW4hf04bhBRuXeQpV I0wRCrrQN4CNOTvjRKvFVM6OI31AdAdkZ2eQxSfLZP5z0DMu98oWPOVRW9pKEAEuH12o0Enl0NtZgEjS GDlFPMghB16w0QkPSPsp J3cNlNqQZX0CRVnnRX1SrGwItXdESUjCukSRMU3Wzq7IiQzYTM0NXHfIBaarAlEx7MeOgaBXBZiJSBeF UKjMNOwFHJ5SCOtDhZoD PU2TmGiDhD7gKS4CCQ5SNZokQZSFUAfOVGzRNWdXDElSES7VPWjTxElUBD7SsZoGzHjQaidh0UgNTZ3I ppiJWiuQ2DbXiTpuWelw H7pyD8tChFuwZ7oVZ8kRD6qVaAqkD7aZU03JG5jdOXaU0WADQ2beJ7dOzfcTKa1PTWeUwEbLS7hFPEkK ZS3QndnGTe2IC39FoB0B EQkBqAyPLBxHWlmqE0PLcToA7WjFN17XWQ8KotniZ2ljEO5FTBwUnNoOOOoIzyjRk42ECD7JUf3KwgmM PScKvByO8L1OVXrLmG5z OQEYUnYoccjeU3rcPNiR1EdFE96ZIG3RpnfmT3lwOE3UZEuBdQcENAfOmuqCn20DVR0WMm3WgdnSGDzO aJtY0R1MVWzSs5dUUAeo 4Azs2pueScWf0O1aRAnjUEwG6JadP2awm0hZRQlBpeYHFb+WFeeIAK0sRw+qH1aZbWnXGy5TtM8Q0R6F HUoAZWuKYN3VNNmDmlKB WG9RsBCKpPgQPxtgnMaMcgjCxL1Z3WvIscLTFd+BDmubWrdsI6cgQ8uQmWvP1VsNQ51ZR7uUTG7z6KlY oS8rG1rTY72RNbzyN1nh T8eTGGtDykZBSO+IBevMMV9sHtrg6CChiS8DST2oH0eXQPifeRabMFwKuCkdYV1bLerzyA8WX7tLGdSA VB3aXJbpKgzNxlaCsFoJ JB8RGE4AIQjYNUiYA94TTy7VPLzRPpsHGEgXOS4TpVpm1TSecD8s1vjmr5bQuOfFb8aTY3hS1QlUFomU TslDC3lXczgYUFmo5OIu kZ4d14uiBabwuXOX9CrtD4oQVPdBaNzLUhatP1hpL6jMEKhQhHsEO6eS3pjfM3aiLulHm3tPB0zDYJ0J 1PtStZ1J3lobJ4DZtfnq 3Rvcnk+CGubgxEuPePee0JkqQF0jM7yAtM2L9VeTveLTUC+FEpwwXr2oTIaIVEeVxQ9H5zfLISsEZVtJ Q3eGKUaMw0+plB2CNNXD yBJREFUeJztnXVgFEcXwN/K+bD6nKX8MJOdqbRIJl/rGCRkuCjlRWWoMgirzh0MUEspBCXsXWhgM5wx/ QP2ei0FlgrbJpUIzeH/u e92g61Uff0+nLyhUpMoIGXaYWpmIBGtsCd9WEvTRlGgzMUdUBbNqSBIeNGlWUasLDqlKQFYclLDE7QGm BqwwsJgMKUGrLAwGEypg S7pAmD+C7CHgZh/rgpWsVyQ6pOIuoREs8cUMV4hkn45JCdzlOZKz/hrzZ3fSD0CKcBp1poBYy1b6qp4Z MNwLIMQAiBIiqJomiTJx k0a/iBvTaCbRRoXZCG4fDnR68x2q+yppIgAM8X4CUd4ByIE2bXDeu1RKNMiGAYXbAoIaWtT5akHQswzE jm0rYWAGprb4gFURGdtJ o0H54TKTk15R9NKwhbJxg8q93udGbXmcrYI4oSGZDGCLv4CEbAqWXwKmUSLj+LEEumob7+Z+tVVLQ5tN FfGCboNz4Vr+uMnY8Qpz 9AWa9au+8ef/XtZ0HaWqGVipzAVTPUdREUYDVJulrg76/oLf/5BkMSEiRPH//IWuVWuG9zYJojbdkt+9 bpXj+5jxQqeCv6i80J8M fFC17LPLKUOzAmiVTa9bCqYGGt1xsQ1fG49gy3ObfP2S0XNC/IiyOvr30//I52tJQqPyV7H5faWxzWwf hkXDSFin7glmm77mmkJK j926qS/v/9sZNihypSLQYasPHPtBX9Itt1iKMl9ybTpcPldpm3aumQlfY+/v7//oRFvrz4gRN+48+jFq 6qyp7ZSyiy5uNanT+zet nvJnEaNm/kxqAxnGiNWfezkIqoWDNPjy7jXcY4RXyB6/HXMVm2D+m3U50NOZgFvYkkNi4ZCr7ugklK0P rZCYTAYDAYDQRAkSRIAH OkgTEd6IMcUAhiBPa6CI4kDO90fTCBh4lSBp/sboBLwCoagzE3ALay9bNVvlau+kdaZ0LyTVRrRNXJxJ DhhFB8VGwGPTfNSXcezV 5HUvBz4g+3EMf9+bEhX9bebj42ebMErmm5Sk0Oy4UwOqkzMt0Ao03Y/gkJvXl1cBFdwUTunuTp9/5men e4UxSdd5hIu+1WrtvWCO 5erXpOkKYNWm/+JFjuFTF1zlb74/+N2I4uIqe8MBWQ8THfyZvXlw46Jr9O8ceEICuBNvpk5+YgKZs06e bjrJjxmCtFDRTSeVmy3R pd6nudYFJDk/g3qxCN9G2ihp9004rRPEyhVDDkOHk3hpco1vc90qcLWmNnjBLKnWRZAM7LuM8qQ3Sciv WdOnXocEUGLxEHNWrTuO 4icl5RPhKat5aH8sGPuDfh0tqUj5LL4u632uuDD9DjupIm8fPh30FZ4wu14d+Wm1IEkk/9+OtU30ns69 f095f8Iz1NcuBLza0/ft h1/mWw1oN83cPyqLPrUUvluKUfR+/x0gJd7swabj2pWhaWXNbtrsqbPaHbR3zjadlK2CTlybGIETPu2a OStOnRZcejshRTNpXTd5 QzDH+GP+o4e6+qm4cHYWasmySbTjwW8cZ4lOm4Fwxt58taPbgxDb6kT9Vs6lsHk4F1fZj7erVcGijLu5 B03pprPO0XJDXWEpjvgM CXd0HzRsWSpI+7SxYsFicXHx/e2aRwc8UikXXgmAv4uVLs60ohV9azSrfiVTsjXOgbt07NrxsuyMKWzA zykSU2SuFXdODz868TXL Bohd07I6SEsClR4pyCJm5t4u4Gs8ji5ZfsM+W+AFRYGIYS+GTmqnI+ed5knnE2Wrv+W9DzBWtIQ2KJGu fdNtL6CPvK5uMqJe2+nt 6z0O1ehrI5le1WFhAMpHgcd614nQ+fTsrxtByTWsfH13WayUd7qEBvtmFoO+a+Sa6aZTZMwWtc9rghSi tGwVg405I3UpMIsYZtax XZbjy7iuI1Yqw6rAFqSb9eRSIHDBxTOmCd5LTEpMrBBhRj157+HRz9+UGWAXs1vT7ZH6bp6WpPvXDLi0 W1V874PAakI5P31L1JSC WLLEnSBNaY19UFWF20weanP3ynIdfbOwBSyBuZyi62mql1zyvwBrA85HpN8EewJgj6Mrp9zJzOx3u8nm 7soWW0qSXG76utEr8wHB iq7SrydbkSqGJV/YVKINYj42Weug73lc80VcUFNqC9xSYvB7cplU/4gvV4/u78zUQQQFj4Cq1RyG+9Iq 1FH/2C92QFdRTRp0deIB Iees067f0/nj1i/PTPHSVpHsVagZRQBjQGn3BIqu0Fyl36TnX/R/MLBCgsDqSmpDMPUq1+bWUqt0Oq91 wYzRkdUnfUBYvy2h6lK+ /KwwIlUdov2x0j8FiHYbKmeVemVMz1IHADjRd0d8NK2/pxoe69tV3+8ZCIEKkK6dLCzoEGWe2wKHev2g zWJLjOGkW4x5HJ8IKLuW HZ73LFlEBmEkkuWuLSFKJquUg71Qh6+/nEy0bOFxhc4uyhnrIEusi8kt52TwL2RYz4+6Wmq433YOqDsg nbCZKFGI+G7YJVTVWDnM gLIqOvTNElu3DHMz8fXXhu8x5o3rPl0gRlwFWFwpFAPhup0rj37PugqAk2nwn1hacf3hNddWFqjjLaaV ssMll8brLP+vWCFhQGKo kiStHdwBACTHzFB/HXxJlGR4ri+etEHR0pbjc6HOkccgZiUgyUSOAqeXCgO6BWc9eZE6wPRvpMpgggQ2 BAEIARAAAGERqPRaNSqP ALiNqwPGTB8xgGjGNxQdATUrxeFrdRR2m7Q6oe+8YaQAVh2bZMummJo9ADjiHdca6iRkFVmVtkXtR/wR OGEQhh9FsmeCcgRfUAco 6YzN41e+iYct4jeZx8vIXwtwZ7Qxb2w7lEvKxsWIZg1UkmbcBpGfawyipUvHzMpEpXTUXmnhhj9xcm91 ixE64bkFLTSG2Qpdp0Af UqlD+4/kKjxPhqn4Lb9r63nCexa7awWZFVPuZEAtNxAXMQWtAOp/LY5fSd9vmSWXpsxJXBMe1xSVI0AP WnpZ0+mWv9a5D7yz9Vec dguz9MUfv/ylPqaaRQqs1oAPqfxrTrvp/AIKl/Bf+X9nBBnUQIkCGWW57l0W6UlaD96h/y5e+B9Qq1qC +puE90apxXRZW3l5l047 MmAiiSNZSKPvwgrJwGb8dzo3xx30FLwu3uvXgoMYbU9tBQV4twAETDLaWVbknhBnMvLB91+vhzLpqalx iorll5f0mM+/S/jXpbxK tOle/pjQp7jJRny8EsgX0gMzfnafHbQVHdg3pp2MM8/VB3ZD2rA7/RQUAeKeBNTBTp5VAKP333eSJd77 aHvF5qVnpdZpBnSwdTTh nW/Uz36/G2yfb13515/f/ZsyJmzi+bRU600mye40LzXGf8k7YoNmInCzowC7MleGlf/abQ0SHLBZS+io 8t6+zQp1cMqbWpmpytH3 ljtg50T9szs1J1++nxIV5sC6wN4ALBGWS8JjTE5bq5CCcGZmBDWjTyD/koJOpjmD5l+ze9PMMv99ETxe iJfRgpcHZymTZuBEGIRQ rwy9PyEAAzlj1crU2t2FoppEr2vu/cr+/n22OKKDJn/KyyOqZMm46/CLH1yZ3U7wnHJSzc937BCQrrHJ 0uYESVpWXPlD29IcTVkp Y7pQqv6q+opdgsx8odEu3cD4pZS9e7OisbUIC0PahobHPhTSve9eUzew0AtedzD0+zvupGEufPKMuT2Y jr69uFu2+1ur5Bb0KAh4 gMRDO5TY6rjzf4wMQ8EYSEYTeWtNLJIxixVHrHqDSGtgOitSc3sqQoKzm65fadxSMhPLCJJrDEpDefQG E2TB/efUNzwj4LTp9dVn h3Z2FppBtk8P89k0y1zS/XrJMHPzvYaQnf2GRs58SjBdxwLxVlj5uf1z7Nm5eoEfJcPLuoLuu9jJpq4e ML3Bo953goUfy83gFtKf Jz8uXjiPmqK/OVy/136ba79pBedpwhnOk9IqblZK7al250EfGzdTUP/J3TsZLQetxi9vw3ovxLOI/62f epTa5iL55hYs/0NRtbAw ijRXwuF212mFZmLZ6fUTohda1D5X8QESH3aQc1Nl5xM4Tl3cyV668uQs2gKSLZlkm5iZTrHasNgbV+UW bnzNy8zJDg79tjb+gxZ8 xiT3y5xCvlwW5l8XBSLCXHd/dKkgEOLUdYGg1z6p4lfuReYf1oeMVTpf7S+3u4Mf5PYVO1Ekdytq7Nvk Lbe0YmpXPGI+36J2EUYr JDaTjevJYYgZzuTZquD1KnKf8vaWTR5keXvSFVHOcRkbP+KlWuym5mFpguKdjrgp+7HktcZERo3Zfnv+ PyD0ZfKc5iWvUBC/wsEZ ZpyY6ah1QX5rkoYiB3PYF4cTgYw5K//LXM3vlSWKovrfyibrInuk7KiVepKAJMcPRZblQfRfRVZZWy5S hOriRbc04Q0pH3OOwNUr 0uXbd+4pwHbWhR9jGzoqlHpI9kHnJQJ7VxKIiGlVuAJi6YDr2Hm5pexbcrOOMnVD9Pj1CLqXMjIDcg7T 5LCY68Yty0+S2mErLT4B j7oH/yefGUER8ai550yIBq0gEzQfPrkPHVHGeLR7Mf9Qj0+GwV4CkeQo8YGiVVw19y0A8ad2hm43u0ED f5853LKGkpqg4OV0qwCp l+Wh7g6DxP44hF+C2ZeZVcBGRV4SdqmgiRiftIiK+6TFPabaDnAJIUhgg8+Ocj5ZHESYHk6OaN87p/3B Y49dRiRKkbNqxE24GFUq fKj4agroxMTMKaYly8Y6uICs00Pi3HAMyTzFzI0ZJXpiB1cyJqE2Mwp1NPfXuxvrX8s8oRrX+khi4Ziv dI85ucMHbuNh5nbLOxko BI7+3pd+4sTrNxxf48FUEpfsfFBOz9RxXiHP9aGDQKkj70ieTViSy5WYZYEgHJHD/Btop2GJpvWXxEvV ty7fe/PzZHQfho7ed3Wt 6UolV5MGGkjrFE/5YBJdnTQUw66aRQlRdL6nUjwm+ApuTSEnJ8jrVN70pzR8+so1TZxkhTjsRoVCnC6t 0cIjbUWpd5dn/b0QN+Nz mMZQiyR/LTaKqId2GDiedeHsBTyXugY8H4jgz24plVPhb2RkcyWvyy0UoQKaxe2W0KGUs4Zg562V/9Kj NG4f+8+gvLZIJ0cBUrXI deC108UcuYD24giquRasWGCkPrCQwx5e7oEWcYBD/fq39SSrolMs83u4h3lhTDimRbrUDDjUdBb7pDcT IeEYhEiaLEILZyvCLvuv SyDdivbZwWDjPZKgojTrnIYhxClp5bqWjqq5Yocxv7dO70pfQic3iQU0gIxqTfHRe3w0VmGE3LDYnFhB fKQSz6nmKiBnDX0Nr4Ta ATLm9R9reB4d9fzaTww8q/6Cen8AqZr0LoNUWZRvqGZBF2r+oXpWSkjokjWpghFPlNnqW0Obhd9pMAbF obgHHbINEZlMAQFa0TFj HpZ091hFNOtL3NyH8jcAN6XhBP+EIPNdW4hFwjatuiEQqFmDtsLSBSbp6zuzEnQLOvDnaQzjk2zXBPFH 9G1Yh43I7UG/yz6q/E2a NjbyGP6LstsNdrQ0dG6xVzMjtNM11d0/6Y2k3S5jaRBGKFxzE1B9xM+RyCHMGAcTBWgEKKyFBihq5UPS byX13GZTpi98aEMyNwpJ bVLZXuJdgL8wb7qwgcH9H2qlzidMSMUSIYFlkS0Zs9FAeBFRB3XHQADRDcmOC0TiQdMonE7BJb4R1wn2 pGupcqATLj1EPLTuMtMQ FSRx9Fc0Zvb2XlJcxrEvTQhzuFbui6zAIjeRqji5f8cCauDGJpd1Bx0VbJZCW626AgUT40HAooOkt2Dy jcJczNS+fPyLONZcpWK+ uklqoHGBZsJZ2KxEFERImXatBbkcsTE57AYZ8K7059GX7d0UQ/j62++rrnDSs5tJPwijoMboedAsRMIV YcDbzZXR4v95Murhc8tW fuWTStmf1YdzWz4Q73JZsGILaUKBcnhx4WDkPlRSEThO3masuuexxLW39hvA6tIRG4griDhBGlladE4J /MAVlNhqCZw6ZgVXj4Ev 8WBx59dTs06CtPwmyGF+ed+T8uI07z0s/D22XH5uD5Hl7OIJO/PkTuWcas/Bsm8k72Z365uLV+izx4jh STpJb8xmryoeRDIWjcpi AXuDf9bLK0cIrMqUlunI6v27ld1idgBWoShQhaMFyiY6WsdYSWj+UOuOfpNdaCHSSkMf4VB0L6iy08IB DluGhlG90XVTUsQiJnNA X0LtDfRXA40e41VWGGnwpN45Bg4r8vk8E3CXPTcpJDG/czA7AbuA2sEXFLvlwpbQyFKxqz8QTA3RWZeG pUh6tMaUV21j+Pp+ROkV X2lxWQAecUOb2OlWI9oNUQ/TX6EEf9Tt3LEqcw1QXyKQuNxCZVk0zvaiF/5kzcCv7ZkYIACocho6s3lm 79tvJguXOdlVFb130EU5 +Tx8CLDpcbmCYRn+iuLEVw5P7IV3+8f8fXu2GGJaS9NORM7tDFi0qFCr09cRf/GlFT8PUItoVMDIVOs6 iiZFud7NjejBJOTUC7Cw Bernabe/Zq1rdl/JIFQbPRjtVpPUJZmr7//7iNLIy7CNuUg7n39C9ArEu9u6ucBghXNLrwb/by34FH0jivda J3HmANHFt3DD142mfHpn 23RtLidK1U8rLX+C8oqhOiOUZN/DtPtuknbtpywOh9QIwAccHNkQbEbxM01q5mAhXuhx5MZttFrlYgqy 8Axr7Gh/2DxP8dISTXOQ UASCNA/TWjYFvQHa9DPrN8vwP5IFixniwBvxvxJMwSSOkDoMUB4+Tdu2Fu70i76J35MsA0QePz+cm7Kv HrqQp3cqf9cA7o7mEOS6 eqNKTmhs317f+Z3shSeX6r/Zortm7aJpCkmyi0dKUh4oHsOZK5mCNYPAHHPTgS6h0XiWKTme9MYz6wyJ yVUF9RSoHfzCvtnWH92W q10YfYO0e6QuwIwKt/5E9m9tpMiqXc7y8aoWLSuD628rRx3MfSf16gNzcremRnT77oEr8x/oYhEonbtg 0Kb3m9rf8h2IiIuCbgbN NNeP0ovJY2Qk91LQcvRZoAh3EG993N9k/ES6UYjO3ykerrC0Rn/581HTVfQVp0Ufoc5wN1Y0xODQmx1m p3/D1kXDQgbqUHYdnG7i bebIjqKjjXp6Vtf4bo8pkrmnSziyLqGJ9gCOVPLhcD8wUkEihrx564b10pfIUO8/zzSqbACJM0CJfLKB DDbm9HnejNa4G5ECxrcb 8r18+KFTH746dGkjRpPWZErHtVfpJBoXYy3vnR2045VNPxwV1uh3iAb8Q9ab2CujQYsD6IEDWwCvXdul RnppEisTktiMlJGjxu/8 8/dPr6+AW43jPQPO9997enkySgLoiV00+aw8FkvAEyoKzlmy4zrkvQj5TC5Z8CbqJRVBT2qa7FpnDSOo N+p2SohwwvUwdAO7586Z Cm9aFBW1wIzb9RIsxhpq1BbALx34JAknRVeeG81xEt94vYs7hbWYSxRJ5ZDGDXpgswEzAam/njypZOMR k3L5N+Nn/H62LPpaajpf OPzzHGHf4Lp1YjrwveVUGWyWS15/MAD1THA2aCRBpTVy4pZRXA73Jeb5H672KGyx4q7mF4anLMrEoYiV Ne8ay+tWvVhEwwRksjlb 2XiZydjuIzgY0w7ms42Uqu3evkkR5y2qJWrntGPR4BWfcM19QxkQmeUPjXVtB6il6lLyNj0XRTejbP2o OQLdRZTuYMkZtMV3Qkx2 X56e0jmwkqUajsqgAvy6Hqjr2Aq7jyBHGfGKbaVDw3mJhZWCFMi7i5pst1OYEb+ENycwwhuT6LoWIJoZ 4ZlRON2hsMT53dO+z7pd cKKpboh3+BQhNJyAqQdeffsC49wT9p/tOctwrc7FSnJ9oBl3LT0g1R83eyadJFfI11SN7/CWsCUBrDCw kBiQgJBkpxYqtFpxBWr+ 7IZzIn7VQzn5ynhpTdKlkZUjdS7XyUWOnLoC5kBe2gTI39uD8I30/sxjr//JZNHwcEvjbpDBxpfn4aAA SUhD6EkrgMMiyFo+O7Fc 0aoAPN5yYb+0/H7uqyfMM1eVzSafVyonRI+EE0USHWRrrGrQgqNflvbPCSRx3RJpQ2hAcLQOUTl3Pb8w K0oMiXsSBKPHGnjSTSJz eXWFpNmh6W5NGULTSrIp+co58pjPonULryvUtkm7mFVWyU6/PwJvUcx3jYUixU8cqRHs9K2Yq4AlAR33 a2NATVAkJLEBNJm6pjn4 QTHcazRaDQaGIM+3cpMgdWGHCcw3Da5oPsj34yKyZBYBvKZODVKU5Qqiv1fTWoj1AP8XtNubaNwEpJPh S5bRPJXAUhXZk9CysBDq zwZFHzB8gfVNbNBV5ZP19nn0fheVOWIgQtc3Rt3Vkb+wchEdp7Q9BP/CuVilgak9N4wGXHELfN1WaDm1 t52/zCrqBoPC9CIcBbDV tLWTaJvRZShJKfwOrhYcljpPuZMaTp6GfPjuBVI1Ukih1npTRs7q5EAs5ZQ+HcPENaoNoVHZQt9U+0hj dRSJzboowBoyFFfDc2TQ PIXQZZHDYxjsBftdmC8chqyFROX2LXSGjZRfoSSxZpyhem3TrkFwbHygahnVStXgcRyNS8h5814p2ubq JxzAqrrMhUkywBBACAAA bzlsTOVKOzhfILsWTMkBnc4M+lqEHyMlf5LmeJrJO54G/cgnYaoXkfFckijfpc1/MNWxThuYqrCA58pA hrfsV80+PHvdK3LZwBlC p0nIQ53A7nrexxImzKpGwHpgy82R/lHZLiiClW1vDZVk4vOTcJmTJH/Bx0bjfn5ki9aiRHbm5lSGeqwY IDNnTPGWcmOtWKy6KAq5 ZXdlk5LYolPF2YlHLHhO7u3ZQu0PPf1mun7HyH8HGoeZBQsQfZ1pOTnrh7ezjpq5Rih7ouSDSfyE+tHC ATGpxHqHAWIpcCyYNHGA KGMGOjhN8upxcYkJJqUuFWdiLqTDYAiRXkjcPi4N4bVhkYHgoL8knqfaxXJimpy79cRq6gNeHIXFLCns QI7Y1oJPfflkCMULxzk8 WuLJDhENmjGxjsu4e8HXDV9OAj6c2uVw9SqFpT91ehE/YbAPqhYBXR4mZBZ8roa3FjOnu3AAtQQwWnYJ AAGPVGjrsTGjrkdqmscD DnuoxJiSZ2AfUqPD3pNK7yQjKKjfH7rki2w89bZ7+/SosAq+xIry4aOL99D/dEaJJtUndFp8L1NmzRt5 SZakiY4/XtaEgEAcAIhH S0ckYGFNGE4SzQ/S31g/k7zrFLZyIzTkq9u3Fnk5Kq4crNYyDrESSwWzwLi7dOHD7uaeZFUWX50TKZOW roKV4DKyUNffre5/Rw7Z 7e8g3+iRlfC3iilOr10jrQ0rWvJv4U8y7eMDQMaqsd0lUMui93+FaPXAfu++RxNCNKfZTdCk5B22GbC+ xZTyg48HZL+2eZ6nCmJu +U9e/VEAqEg+zE457o3w0vJXsJwjj7fMtFqINB/Q3bfPc6chVBl48RRlKGav0BCllVtXjpXzVEvIBKn5 KjwtgJyST3wddIY7kjSZ jrg7da8hKFwYg59KOIA3csLwAF+FjI66agni9Yy7WE9Egj/5bTp5uqYnBeQRLsn1yeQETXlZF/Vh8EtL BtPxVMiru5oJnZdmghk0 vMoCJCNDZ5FAid7FnYXqHq72gm6x5l78OIVUdrlMaeDTKfXdWvX6jd72+qvi73ZezS8dXHARyzdgeeMO uIcT/9pe/qzvh6daY99a 50tETgyQZXCMCiIIpKo8fyOEGTbMqaZOYew+3RmaocMaRnuVuq12kHWH1G9JVuQIABuw7Uo/ndc9yFXY IWOTOPpOiTEN67yZU22+ QV08cnWfksf5S0uLBslibSgxV5oOwcof5mRmr0pAwnLuL3+43Rsu+tP47IYuuswusm5Qhb7/e5fIqfRJ hqQKuJUf71BJwVdl+Z+m X21FEsSBKPHRx9SLQ6OVcOt+34MDgwUan7FlTHPAKWWLYd0PAQAYpgpBzEE7aKMROROGrU//eOeg49lN TrMqib8GH/EiYHSzbs4P Z6pIG4gW+o1pUKtfv9OBylvkctNXkSRzWJqg5SmlcvkvIQK2WA7xB/uCxPikFCkqRykbBKsqtkQyWxAr jQM4KCTMOCOPHjxMwg7/ Lp5BIppn8T0iwYJHxNNbcDrt0R/o8pe1bs8py3JGkPeTUmyNKB4np3ZghGYIvTPydh5eAcSb/FSyBgAr LAwFkQ/frz0l1+uh18Hj dQMJoUUFDsefuBJgrhIUZRhYnCMnMMkPj5POJb7PlkgiuWIWVVNwb5LWsEEpOCVFFYKWiCQnWH2Gounn ityqqCdCWIkCupGW6vU3 a5O2ZTYnIx1kAOMDnQWhNFPRLpG+Vg9Dzfde99gY9/5mhD8R8YJD3EEgPoXUxc/HvEsIKOxouGkYL7jV KQLcVP7v5kxoIvUkm33w pqcUxfV3xsjpCDvOJIBxmyJwYWC4QBBmMcK1ANi6ra2xgHtbjsCyMhr0YVnkacMHITPbafrXGaJz5lzc oc67jtL5Ho2+tPFlBqww lSDnWUoQH9Et6vS5Ow0LIsp7Kt8YTs4SLmPhaIgp16W4sApZXfNKN5i7mRE0GzjqUrKFVYiW+fJI26M/ mHixMmTEEJZWVnZCkVOT p9KTIKcgEEdlMX3gHyOXgYljAKrsJnuw/++/FeDt3/y9/MYF0/QaYqIQAsAIdfdq+aALdHb2SK10q2Xf zKjzMZe8mXuATySbrXaH 6QKZN43Ns/uhd9rfz7sWSe6kARUFJcXLFJuQ6Lzx5iwv2jicUb4Sllx9fLi2KgQEwQvcVC4sYZP0hZFZ yJu3+CQ7paHYOBzleGfS ODGjAqvMwfKWYXZriIrLNQ9iP2mPca3siz3o3z+Igc83IZlV8SMliOW1y+EhcrzK8mspmEoaGOclCMNI 6+rrRRodHTjJFLCYKCVC dEtQ0Rk81Y9MCMNvu6+x0spcyQXwJRhCgl0ihLB4l+i1+t/KnG2kl3/KAJURYqZRGxOZGaRGYlXrt8SW IimkUDQqHHjeQsW+vrhL 5VfSu4vjXT/OYyg6Aq3+0nhdGQPYx86pzAQTMvIAizPNHaxZD/lcLwEn42A/F1dooL1b8o1/mXq1Iazf w6W6cuQGBOsM303vs8iI VQLTwPE/YYznNPSTJmRsMaTdBQJIUwzSBNSBnKIYLaJvkCUQBGTylt7EQHKrKGGJJuyLKJIZcDDRDeKg lIOKGJYvjp7UXEDqOELO WrmBZGUUcKYLRrBuiNGEHBBvnu67I9/Y/1rFQzz6+tDQhACsFcaGkvVR2Sr86IvI0oehtGtr8KfVLgLx 7Wf8oy63nu8+/oEC6IXt JcyCUGgmD6LFCYN2PU1aMmZEutkwGILSPLbw7uO+c/j5M42cpus6on6T8fHcdttII1DNOUGex3DyLy8g s0jHAd1BaDou484oyTBv wv2fXqhQw6xtly1shwsiUqr2wVrw7mS6+tAWp33wCRa4oIqpYfifQf2jXaXLFI0k3h2lTw61XBXAj+vz m062i7Bp7zKLUTbSiYB7 giuXy9u2mb0y5Qx5GiTS066lzx5B92GESa9PIOdq2glQLTOlw4LWtXfIc90ibnBODWzTrMCg8PruBjhG ZoT6MdxwJiy+jslxvyHS BnNdOo97tKTueHf3iZfh0oQHTkMWsOjjJqjylOtMo2KjUeVX70qz1PfmD/xXxwkCAhX6L9lcLMSl2l5E ZrWjMUSayXp7DUmBd1EG Q8kuxAuMzSY4+9b58lb5+GIvxgCKHih3CabfwvbYsHPAI7hGr504OrRMjK8+PV+objww2fuenpVHsWVw 5CC3iEXdk5k8cXS1b774 JRCE9OWH/V6/ZGDh/zK+pvl7z9slj5nAKi/p5bRoYXTi2keaJBH9W++6dS5c+Hyo7/0szFWUxEKdk6+e kMR2XqSD9csBKEGwCME7 WgsX96/Q6eO/Z6bVhSLrpmYr9EdqiArZrdyUfrLp5LG4KCibYQvfsIhmTlcHCtDpLpFYw+PHVOcWFOmT eO/aJ+bm/vj+AnmbXnMf 4OX2APiUw8yq/4cxlvm4t94sKgk20Y64FCG57YY7SnqGf8ozTI/Ln/z+g2/3X/qDSfLJjkI7r2vqB9k1 9txcXG/r/abT2MU85/Salguero 2u3Dl73XoAO4zaHc6U8NsCwn7iy8QMRdGFMjPn/e/MuElRq3cf0Qa7iUv2bNfOunCxKFzT4fCFUzFFCW MDNyIehu6ciMy99iQ4iZ vv2iQoSEZi8cjUT3aUShRMPg2g6/QxRGAMPJ60s7dPhoFcoSrZUe8r4V+PhVffGzYr4nsDSg9VCIi9os HSy+tWLuTJOmVlPWT3o7 wsbtfGxs1EfH8Bo0wStvKlln2tpReDMWgSQYU0NCaYJm6fr5vCDBGONpAPy79UYSqKYTG8+jQy41Eo2G YIlSWh0djf8nKibWzosC z6+ZVhyE0OHIJ346pAAX8PbLflrOxU9zZwVxn863+6a6cAQgzqEri2s/soS511VOtrVHzrA8Za9XEznL 6QRUX3vj7WdPFbzvzr3e X8Xbwqs0HXP36XAu812lCTWog5CytyAkfo+3L2pJm6Tm3/f/eY58eOVEgp3dTqWNMeJamg96EVJvnWya UbTtGkzqcxSIXIcd/5ci Towhme9RYUwcaq+in5318ZuIM+NWhMeHvbg/i8cJfvYgURQd0y6yr2v+Kbkv2DdBZE3xewRGDopYaRwi NzsZSdJvRLW2naEJfZxf pyOybLMEb7r2ovZafYKvmf2tiGPdqv4nttLXT9qWKvY5Wn3Yj0eEpc8h/zhItyeAU2ZbCTi0+fbrHnz8 dPieZC6GMYWTVeyNXDvW V2TajUFdGEpZDMq69JFbZOjL8qncBKUc/z0giLKVz4UOja3ywVXq7ydvUKQoGcnxLFCWcTg3ub5e9zse Ko5XwRa2jGo8brh5ujwO D+dy2YUDTWrTZJSOJwr1nq7VhGaem4DTk9YyXQnzzc/rCLk3LkX1xAa2qp+en9ZXk10P4JfICOprMX35 6drkfBO0e3c+q0f9NSzt kfYR2qhEaUsYTogm4W/ljmCq488/0lBAI0wtp8kW8lrMFHLBZ2g+4mRSDxAtWGBHGmXw4bvIzrq4+PrO 2EwLBELt3O/6vLXyDb3l sFsGEbuw79ffw30iDlloTsBlIyUproYmteGm47oFRSo70kMM/7Ytr1v/359+v1KWPapaUYOP9bHyXQGV aBwL4Prv9cCjtq5+4aDB i5Vt8GbK9tXUIeY0ORDZcTt2nTZcKpYdcpbcqm8aGEHxEyXhCQ+/H9sflxh0fKX5FJjLLdCpt02RwsAF zFEbg54q2jtCJRkZq/eu HMeeYpeimPzswgPnwtjmuS3a4wb8HNhh49/sVhcUFE/uSTCFmoUFf26VjBH2t4+rM7xhQP1P2sMtVHUU Ra4kDQdBmhdLzOZTPDJj oGl5brAgRUC0LDk6+p1a/RWVMao2Jg8jm8+BtGMEq4oeTp/1wt2Sk4hVpeauHYKjieHLpaLfpkG4Gs6k z4FD2gmVianYl02SKscA HCkKEQf1idUE0YQqiYc9qvByu6qN52CJipZyLFA1hIg7d8gOGo7qSVOpxToIZ3kSva/f/chEI36NtBIa m13KYpw2pAQ7sx98+aNm +hd8Wc29oAsFLmwZAu/Tn1ndIsgZ98g9JQc8UNpeaawRpB3lt2+SFVbaOkZUL9wHZh23llh8ZDvgWxg5 N74p02hxkt8i06WYQxTT ucn0BLq99aiBc9vxby8P/XNN/C+Y2zPa430o8tevVhpK7nEr9ZLnF8GNxMNHd06y5CY5cX4nf5h+/v6+ rw4Cc1TUNOpQp5zYv9Lz jeHru23dmYwxedGI+zg24yn8ORgCpu4KCHmpOdEfUCaDuink3u06DoAd1Cbftg1L2/Tnn4LESmJW63pz htU+9CNY3Eihhr6My4y3 UaVxQJK27ZCk6qFHoJ0nJdaS42Gxh4mW7ktV/f4+/pt37rN/OCjhw/6jx812p4gYKCE7VTk1Duf2/j7+ u3Y/kf+0N07d/r7+jVt2 DtSxAp8V0YqLulYx//y5Uvzg+DMcAX34IlXVUOlJlhxgzwoh+0x206wqZf5egyc5sT8UIlHqE/b1nSHT R238FBR1Stskaz6aLFMM rUYLkhb9mWaM4U89jvIzXk01dFp48dEwTLzl/utv6/f/1b7Xl47geDZWD1txA94MuO6jrZvc4iSSWGcJ /UdASuym0G5a/Zsf1+/7 a68iLb0beLLcTCc6Huk5/EEnJacKwIaDLXwPTIvZtm2eO/Hc3x2LJhMwBT03LjUtCcBn9rdsy/vvsLT2 armrfhJUeUUrAs14sO3b TN++snf12/QJq8SNS+2dStf+Y451wOh8YBpskqX54+NwRt53s+tDicYYvu37yClfsVypzlB9Wk7duCIO Hqq7pc2pdADNJ1hn47iF qD3oSj9bpRE5Tm41WGelTFxjwHvMzNV95UA0aygvMjDyFyQBTTP7fkiX/i2kgU+Fo2l3z7YlGeHxrR8O qdVSpJWLa5b6++v02otj aMBm1LbSdJy62m415EYFNXi95XH0KAY3zlnnj2NBuwRoLrL764DW3nC3FkP/QcO/Ux727NJipNXC/Hww WJOEHZj8tEVt0Bkp4xe0 CvkRRfpdzEDMSPTQgztlPwJQK5Wm3BSU8bgI/4H9x+wKvMRpKamxr+JN+36+NQtBVhl8h0np4Ez+S8Hj 9tqK76bFF3Dx4vXgnHaF ocVk02tHltv8scepFy3xqMQz7rHnot9/bjhh85lx73fp/eyZIvqEcgB9nM8sVoTjz82yWZoHSQ0AaAal 8CLiOr68dsixy0YFcIbS vhxfxhkzAsIADOF8beiQTUYsEw/QGbSfNVEIEcs6aXgLQy7x5utZO9/otKOPr3uy2ts1H6yCd9AI7/Pu JZmP95hdgWJBs5IHliz4 fwCc+fN9/Y6nr9VBAfvAG3sq/Ey3u24RjaWCt01JQoZ4Yj2srO+Ih8z+blbj+6dqtt59AJA/j8a8Zaeh 23bu/naXRaFzRDH4v0Li Cr4s+Z5SmXf/v2+peeOAN3kLhhi/ze5JpGm9XyFdvrD3Rj1V4mV3td8+nFDtPlN6F8AwEydaoGcJ3hUi yuPAfKOEdOxlJWz8kqBC rfy7il7iytZXxmFJBjwmrBmK38iuj2xIHaLDJxuzHOkFQdGqKZi5Rup995UrrBt2115c2cFw2WTIt9pA UlnuZWz33wpfFb5V1oH0 w+DBNQMrFe/vtUsbt+53wWPfgjDMmxjDKEiWEZJMgAhBR4pwmmwDQ1+DFCjPkRDy91ywwcnUIOOHZlQk xL7HyqRjfXiKozusgW34 pcvR0q3/1bVnjEpbRjOs1+PBd4+Mt6wd55LS6c4hhhZMLWCANYU1DJCW6LNPS7+mOKZjjw6q1/8PHOWV QGSJIUiEQCIxWKhUFhQO vlZOG9+HJAgWzHWy28wAFCI80aWYsnSjGa/z37x/EV+wQmNbS7dtsXV+n9xZDhj6HfqQV996mhYcz0gL pIkJ0+jxik96zrsTAW11 88rbVDLbhIRC4kqE4FmAQ3iLGSerKO48tG206H9b7+/evWqX//+P7SrMInp8e6blNaeBhpQd3yNszlW0 /fN8mW/et4CvXPpYRDK1 SRl/YRT3euWsos/UxPsLCGlZL5qpuSApMDJhB4nrBhZcALB/odhPr1cnRb2FCM8vBqY/31aPIqqBFPR4 cQBFHS6w0/SqtHB5oe5V N9+flJUcIcO+Y8JGtVdJVv2nOXp7umAC/ixNw4nK66z1tJdSsuzNclySwp4/Z/TnILcG2Pd50JV0b8sB Bc62mSScslisoJeNGA+0 UCEX5CVSQlkm0X7Ae+TIxrf3Heq8IwnFVQlOm/9/hsRnWxGYNwqD7P6T2ZOl9d7oSYnqzMpnwhjI8kNf AhgFBm9t4bfnz9EATPsm Xpbi/PEUiAi9fpAReXfArmd6+IK64HsYdB+9X69j9eINGPvdBClXwfTSnw9G08Q0Gt418ksof+6Z/du3 euE9Z0gMkpFt91Wovbr2 8Gj4CbXjvDJFE+/slS45Itp0TdM947KYYhhsxNoy9e233/hT/GA0vVs7+rVr//DiaMYPc1uEIWmAjh8h B0BySpqDIBBqVsUhx53u g8pwKrRKn8i7CJ4xSE2+rd1/HcHyfHfT607zSSqUbukb78AJIKtbkSIPhfhFAwcMywNZBsYR/s79Zlac Iea70zMWcwNunYx2DXBL /lt/zPRPPKaBKI5Rp0/zr4b+PunyMzMTExIrN+ttT2HU40ys/hg7ZV0Hq+KzrCcNDWKE7Mj/mpRCgQCq tD7J0+X25s3b21n+Ob1m 0k//XPNO3fZDjbq4ajK0d50B//mDQD4+vn6+LH9UGZjyun49f/PGRkZ/QcVMDVT7y8g+LxTTqf9oSE/w sEDb++gpmXNMUFWcQv2I q+AfdUnDVaMUI2TP0mR0Xy3HyWVDtWDp6A7dqk9GlNr9Yldm3qtbZPo4g1kRr1fypjzXTp4InhDMyio7 QiowffIAODB/cdJXu2kd 8GHOh4dvIM7sNuIUqrZ/f7gH+9HNLmUhPyHCBEM1yhiS5UB0oPLuZkAKd2py3jw3u/vI6s1NPHM6A3tb KuAdY97ybwA8Pt/bldAh bHJBIZsUDpCx6H0baj2s0RkR6fkmW3otuuxgQ4W8CR03KvVDSeTXyuw/Pj4+eF28KmX7Ng4q2Y/z7kzZ nEHSakVFZhiPEIk0whZF TYBPgRnZxfzVpUyV/mmZeEpjfxkDh0NDn7JYTQCUUpWThovHe0HcnO+/UXtwdbxSuFMj0us2MfhkywYq Cs9SCVh80G3BvHnsdp4+ dst8q844DJVL3Qdwb7xdN7SOYa2O37jz3TmgqofrpHUmHxYe3+/IwKpVDdszkg2AyART9GtRq/erXt3A XwTgKZwJ7y6fkh2jV2ku CHchK8zoR/BvZC5JzDau5cTqZp35Gfq0uUygmRMWcEEWLNqqF+YZlKtPeS07gQFL5XJ13ltQ3fnFPLAp 4Qaj55oMV0NqNWJ7ZlZK ndq3+GHceMNRoPVDoWJ+f0amHl7gWHLu/Bc1Tjzw6du0YX7ut06olOI9ak0qbfGyt3fDnBrnJ1jObCzA d9u/9aRWM16za8sw5crD zv7utf97UDoct5+xoD6TIw9ITvRaC8vKdfKSJLuN1tQkOvdE00JSMNiFs1mQ09lKMkkptLDIpmLcLFEl HwtHGaEf41YzesNceexK 1Ns68NSTWkMBn03X1sxQ53jCjtU2MNUGLZT80ktZTrUuOyAwFdRowLZRMljuFHi/Cebrs46XOnmo1Dh6 LCeSoPp6dMavYrJjH8kX uvrli18/j36ZU9GRGlMD+M4bv/upIPRGfrUIfATbj4tl0fZZZZJyBzQD5I1QCe7/9dn+MiRABD/5s3EC RM+qGNSoWLFPn3/9/3YM l3mI3mXszYaGa+Cof9IaZwvPrs7y0ldmavnjC8vh0n+d5VVsmBon2sHDHurebArW5PjFoPS6c3sEFFf0 RmXgXzVVGe06HellrOqP FwgEJib+W229KDlGkhwi3ss5c8/+hIGip7Xo40ec65dPDr5b4mjGJIK/1cg+GArG9+mZ2LvGBX/ruM/d EERAtNbnCjqLnqvJPBeA KXsa99bxjH3h+zRk54AexUd5LIl6bYcwEYaOp1oFXoShvYP/kVXMjBN7Gdsz0uXz32rPvY6MDeg5FrWf c215FO8ZsTzQhon4sb63 CgX30TyNimCPe3wOTD29WoT6g2SGPhjWvTXvtCkco46glYsdyweNBcaYJ6MD+bw2KY2P/vxmcDgC30aT eetq/1kOVmNWD7zBBe6d zu+95FPtWY8StDz8yedoX0SmSezGFIgw3hf/StL5LaGBWwWR9fixUQBzy8pYwWkDW5bg/L4ib+ffi8zz 96nT5/mZH9Av/9U36ugH bMZg1bqJdQMPZWLjMzUGm8wY1lKbGXPwPJXMyt1MWu6xCMeoftWzNot/Re6BL3cHpXnqO5LkDzsmsAYw XthfnKmMzriEpbW5JafQ kNmHQTFiu2byazvax+sdVTRzMEsFnWiOIRvz83/apxKqnAYQ57jlDqyniYYs/+yaNGzZ8/kDz4kDauzX k30sxvuwQCJxzPm+Ftru cfj5h6Ii/v27F26+JfuPXuYDzN/BB/8SzO0lu152703zu49gjcbuk/pRqGS6FhRb2Ujlnoz9QNjCtOU2 Tt3/buoS0QMKFPHYkGFa plDYUdDXAmexrKTcC6xlx9iw3+CDHY0A3y/6HOa3tCl9X9ByztKyNzmHfdd3hwweRPdps6J+xfkffYRK WNDhPnCIFs37wOc3+3t7 t6lEodKB0dPejxmE42bLqCQBeSUecMEtAeurh/Oyc6+hvDk2mYayv600yMkSqvfTLOmMu4pYcm3CEMvX mPFnt3MNKmZUkPH42paD KmuyO4WjEtkrkj6pzlzJv78xLhqYm31KsPhrBvhdttrxojxcfqcXKCGyLQcGNdqIdMBIPxhnlEcKA1kp 67nyhEm66NJkmNX9vKhd Imu20ZJln5lenYi70bv3/Nqc9mqt3adcAk8HTXgBEnq/NcV1CZmZG4C3o3v2r844HOEYWap1+fPBw8Z+ hZX89z4nlBqKF9DgrVNS DOL2XJ9HAJEearNNQH8XAO47xtrz5bt+5f2tvN4PX80o7pzOfITr0fTEjM3y7HtFqoKvs14v0/lJoqmp f7yfq9oHUybiAvoLXEL4 7JsQutzz6Jq4QO+cP5hX2rX/2tOooSjcICHthD0JohNJVqD1h+3Xz/e+cZ6YfnBwCs/V5rhcp4c7Pjes 7nG741jaXjjnNDObtCg4 KvVYOS66Sav/1Ub/r233Ef1R7WUhKu0q+FWZYmueyP41wspZZYiFDPIbwkl05525TwK8dC+ro411xINl Tcl0CrWzhG4gHuh/+2F7 tSlS+MEWHQxVHx82Nsh1wg7w9xyhI+tc1gIanqIjmqjWj6QfwnTvhAH1Yw10sN4gTQi9y546tx4/G5gz Zp9+/QsdcK65N4mllA+2 UobrAo0NSIN2Pf/iGMRn6xrbu8uvzTQNWPxJgP3CrBnLCPm9lvd8x72l0x/AkBiYuLkH3/R0ILW7prUg Zw9C0TaOUVj6dMFOFwSv kk//Ldv5Bhym9sMjR3w26/j5cgBHALu3n440SImoLeeAX1+kXE5eKZSH3b1DDMJUOCkNLw0IB4RD7146 vrPl9Ti+TLfYMYk7Fo+d /MbtyASoCwnRfnlph6T4w7H6+/b+/tf3uln06ghabsGPWiK+gvgNcQF3Rg5zkOtO2Rfbyg+peZD0yeXq Xmstfbg/IUL+Tnwf+7ev XXzZonESg/F18+GiwDzx3hCR7IjgCSjAdpwNWQmSOtvTB5/uobVddfIQUYt5QVqf2KDxBqA5HAfWZKLA qkA48Ig+YfNU6Jw43hxR guiQJQF5Pvsd33VZGOY/0Jsw0kEly6uHPNj7J72jwIXwzig+AbTieka7vRFk4IMvek4TwHjsZiB09/gg WvZRPYvCov3bgDB8XzQ7 bQFWTq+VlSjI7yeCVZBzUqdjFVA6fhFohfAu2AesjKhxdKVDuATWWhvmB/QxIj7AyT7Nw+cPmPRArexs H30t53j0joWv1fG6upa3 Fxy9eZqt+PDxhGiRs2yWkxrxfSGozC6zKQY5ESxM6nZDGo8jiMh2HjCifYRXJxtg6KKoQcCvHLaVDzgH dLw4Xlt5wvZ1aRdgNX7h 4MG851A6OD4ixHDrc6/AICnp+rxqauG87JSuGuT/gjDEPYl8cr4j/l0F367xjGW+8XpbHq7B/7GxDvV2 ksvORBiOQHcguUrlgo0n 88wIxUFnh356nEEo0RS3oaLzfCFmq6JYQNpFvzr/L3yCbdS3gtJrzLFxk/sRvP94dRA2U6xyzRqKedsK TtFn1Dq4AHhQnUC4JyTa L12Ev524u8v472y3C7n7yYqF8LhV4Z6ngzcJynymNIetAIOqKB93JewTimh2j10R2o6GHDdAg7IKBmR9 owlc2U4lcx2XUGB278ex 7MtIlJnYGlGhDDcIZIuYxFs1m9kmcSAOjEBMx0XKFVsap6Vzn/dnUa7ETGrZll+fetW/xw0Yhmy9VDG7 a2b3daLQfPKHs2DEkbaT qfPfhPRMgwblbmTEvVu9w1cnjztpWuhMIm5DKk/eW8dD3p+HA2KqjlTjbMZygA9JepU7qErMEXdKs12S lhXuN5wan8fucbSHh7WN ZqNqz94rQwBKvudvj535/bkDPWBn8mIDkss04LjCyVtVqij2iAbxxDSWj5o0f27UHJsrSsFKPjBg23R5 GXn9tGkhc5oqt0RkC69F q9d6+olya+FEi06ldxRag5pw0F7pHUopFpKBgxQpTZ5q/fyjAWUr64LxGf70xI3l6K8+hWCx2dhxn3rulx BV+RH3tr8lj1QsSiJ8Ut j6jRu791Tce0ifvfTovsa856bnzig4kz+gtSExM/C4v27vM98CXv/gR8/lISBLcmbUPnRlp2XfmQ3lnm /CoUWvWrlkjFosDAgNMf igC4U2jHNLaWrMJjDnrY45yiHCekj1jgNKj4Mn8Nf15wo/03wHIG02IbOKIDTdE34tk/792k8VVTf1kf 4fdq0hdkJJj/uVLl5k+X XCJaTNl55+CNDRSjr11M0ZUWuW1RUnu7+0aWCymzFl4XDHtcgoFDnNU7Tv0Ox7ye1u58NQa3/9ISUlRK pPEf3shWhPNdZTLIE0mU kkt3YPWQFy9tHIS6/Qkr1SmEq9KsOy4P/v5s+z0PSe6N+z2H1ePtYw9c5vLPfZDkIyzoK0/f/a36nZVu 3nh5fiW6oLBqciLKHJlO vXoKlQJymcO4519o+6cOVqNtk/bblFi0M4e8SpunCeaBIL+LRVjgeiPjoyJiqlca7LlQLVP4unFsYaFD P61KR7V+fjJZtogVa5Fc z7+TbxAKKBIUqVSRT9+zIDmfeFSor7EkANiZDrc6g2r/YtwnQTBb6mgwl+7ju/SHDFkV18AoTCKIFfT2 l11Mf4luyzvzgOnSWP9G Rc1PmRfmpQadVswRRVez5U/1k2s58WLNmGlYmUU6mnC68+jf1zs0ck17Eni5ONUlMqorMJQfg6xOqfoL warhVh5mZEZJHGULmtBR Z4AqkGgi5noJ6ZqqN5gRxtxyXfq68zvjas61BrGnLkX1q+PVHECaMffpF5aQ+FpEbqTvRNHohuAgM49Z wHmkVPrayW3lHwQx4ri5 cusZkp5QnMNTQzGlMaipw3KwyGqx+ikKN3AY1sm1WLoZX3lZBQKlm1JsbBmSMUJHQL63rc1120hmcpRM bv/6R4br86kN/j5+eWPm 5ube/HYyO0tF/R0LgEw5+oYy0KacCT018+fP3/66X1k51c3gJu2DgQBvW346/BSi9o6a4x6Rz2TrfR2h zea2YmUI6rCedEk4hw9x JQNWn5o/hELd9rIOBlQR+ZZJrPgBaRhNApc5jDZ+/sxLqPLZZYBZh450xqKF1eHVcUy3X9+duJ1E0C6n BHfyjUwtv458myco3f+3 I5jJ29r9uLKERVZpbUVHxCdWq7rg/sihFpGCVhBPhbHU8vVM5JVPI0aMp2pwBGRcXkGXa+/Qt3jQiWsp Dxx4hXcm1HhlHRkp3wbd hc1VSdrPIpAIcChaU1vhdbn/+c829ypev9hv2/GAp4DRLKC0y3rwKKYNd7vzxmmOBKLK/lYrd6gXIr6K YtUZC7RqEIGnU/+/axOW 9300KBu1stQIn+3TW4f0e66d+/F73ms8Ftym1onIEAsijdiP8JOW2+u+VPTaAnAB7Utqqnfm4a1AKhWd UaUtFotyzIkSfKViRASi 2T8OMrY8B75Igj88YB0l3ppSrY04WC1t+2czKaIYIPcCCHYAqr5Bi4FHyYUgbIznZ//2lCak7YKqVISO CQz4d4zooXgB7HX8Vt27 1d847RnTS3T99qSigUhVP0YNYZ0WOk3n42ydzdFERt8/9qNz2vj2ME6fuj1yWRlybgQBzFbX3+eOSsSi qI1nrbVgwmsa8hbTYMR/ 4ED/6mPjLAs++D+c4uZh6I6kbSLmOvTNHDNBZX9GAibTJU34lCt26EUVmMGRxyx2x4Y7tgctmazv3Rwf 4Kf57QnV5dAmjFxmBblO q0LKJUoI59zQsa72uLVHCOpnIdkaHr6AsQm9ja/5cIm6OFZc4Z4ucFa4DfW42OJTOovdDrbQQznWYnJ2 8vZGTTDVI6/7ATWx0Ip6 +Lws4kBKwjpJd/Bmv9ocULEEs8jjodMqXub5xyrjc5BbXrH2+xmX7yyqUwKgAmdgfO9+vhQm1ZkcJdvL Fx65nNYj+4yPokWVkMN1 isPj3WcUxYduvw243ZYZqt/UYJPDYxnqSVI5KU1SKaYl2AuoRrKjla8pOfk+cJgMJh/A//Y+IeCr4V4h rDCwmAwpQassDAYTKkBK mxDYtLluGvJh2RPGbXWpeKxxGlprQOWDFvTLaaMGkLunSyFk9RGVgFPyqDkwWwzcXEYQQxHMhvKXyKjz MrYp5JZNiCByiUhrXwgn NBSLGcFIxoTBjYpxJqKt7GDUxYKnqQakDmrmKBAZAhRQnlLMeDeeEmJv4UEBxVP+of1wDnRuRFgLc/++ JArvbbo7j5bGbg1b04l0 +joKBKJ+bemwvZXlw2lGn/s0r63kBXT1md8I1lGtiXdKzQ2Drn35ul3gbt400dn3k1tBz6QFAYm724Jz xDFXuHkNrDf4LDQ2930f pfiu0NVHR9ml2/B7SYl2eyvJekHq67WK0+2bcGsZTdIJYgTyjuw9w9rLbLvkdh/AAdp14Xrffa+qR4+f Pj/zOjSpcuuXbs+ab5Dh e3rZJIJeFb/8y014hmd//7nxV6JTCUZMAVAPInmU6jpenQhRF4UzVcYRO1cIwBLL1KK4iItC0PDs9524 m/+nI2soxDTl507Gmhp3 uICAE+ePCkk/xHnygVOep3cHEqXtJQOnYv3tPbSWeUoOF9cJn1QBTEI6rQQu8dJui1BI6eWfCgXfyRDs 3iSRBo403Yff0W2/ZkzV IiP5g5Fy4JDDEWtzk3/6OgGe83n+PH3W4QL/krACAu6BUDM1RMyVuat+sGxxMXG5udvCOLDpNNpgoX46 bNnBSW+QyNKNTd09qO5y bg7678vN7VtBJ9iFb0ywntODzOedSEFU06tNxeEhile89qUg6k+8zQIxbpuWxkFnf26+mon49TSrlzgI ecAZm9dGUHP2Omo6Sj9Q UytVv/36327I4D//v179+5fNBLzLrd936aKrAaJ10soWqj4fmCffZy3+F4q9sz5zfxRfBM/rIaFhTVt2 cP97dLCLxdA46LUZw+7b d64CfVlpQCgB81MAYqHXCwBjuv5xX/z7AYOHQJv8lTWIjprK3wAlMwnsaBRoYgNu5t5tMbwWv0Dzj8Yr r4g5jmTNXFGg0ywEzL39 7/z2/tPjPbg59a92nm/VtrgC0y033ZPLms/YYbo6qg9T/Pbz58/RkK4dcsdCF1qeMrFeXEjeKjbsCQZw mP84UimTfmngEt5pmGNY hbf4ZYkOHxxWZbWTXoQzDQESIpJXJukehzZLd4eDJXuv2XLvPrl/AllmOVtIUPFgSqEtlFl8rn8vrSMU ORXWFlZWQAwc+bMpKSkw rODURqgGvTU5OVH94YeG1avS1Db3GbzZN57GFH6Me62qHu39cHPykFob9th2crVSXtYZJBQdgt+88H3h gv0i2xxKDVp1WfeSsKrX nDgwPztjuHDh/OgZFlEIHBn7rzB6IkBwxXWw6wVpXZHUPa4tiTjZLPNCK6tdtKiXRmMjO37Nz1y/Mbs2 wQeQ4fOHuPEJ896ypQvo ampvNJB7/eIYzWwBrjG6Vs7AmnxqMh1aCrh9lWjtVlVku3iSWs9+/cqL8EoThDa8CuqiIOoQVNFDBfpV y5Pam2Fq3XE26DOasJpt HWd321onvBiOPDW8IZ5GOVIb8OxkcWc1e+gi2bp7w3eXgQNdPoKzjJlwi//avyrHBrGWNGdBu6GvVg9x u3OnTt/++43VFgAFnnA5 rSEA0GRBlMDFsyAG306y19Xz4VxPYrrvJixy1h2BzNdnX6/v/hJ3lJ332tA2X+Q8oMKa5Mytv00561WW m6t0JknkI6SFOKUEm1QS UlKUFl+dslzPgBODPxIGivuGqWhg1qHIR7Q5JEji7YAuLxQrCVPD8gW4+SUm98j3a44pnGgxonm12680 vYFpQAAc+bMsThYUAtLI fRSDPkyVj24+KzwnhdGueOsHpFGlxIaWn1ZWRj8ikttmpGeNrDxPX2vtijTS6ocU4xazhcOSI2sgfD1L Pww7Rpu+YtUoUKF/FY53 LBbYFFT97XmEoIEO3wEdL1f2MNwL3Bco3p54TuPOtAm6WclDcXDyLzFxE/c4V0KAviGtGhUEh5n2kk/+ uqrnJycQhJ5+fJlMbNDC VbvYHGflmSPBa90Dr7qqyXr7U2RbTRe1czWnPtnGsrwp0+WVbCL7by2+vqacjRhNYUaNWoAAG8+K4SyZ rlVzJLWLnYrr5MjzgXOe Npq0DShLAIz4pj897PlW+5dlTDFo334XPrWU/4e9tMoR3863575s+/kYXu9ZNTZjtGcto9BXIWZKTWqu ahXEQIYoy5wsKlkWf726 miiqTe8XG4vWo8fZkc0FlzcJxIHmQ567WcmyFtlvIktL94oSL4YSdIgQMBri265r2HhkcOPZoId478/+ +23cePGNWzYEAAuXbpkI R5h3msXJgvqO30KJ6MtXRRi9Fw9b+c6fk5t7ngOd6EgBq67BgNn+cHd8O4C8auGTZu6VAZ8cdVX4+Xt5 JlpEoWVgMp3HrWDDoDDM b78ulFrKnbk2TZqHho6kyo7TrO01O/0ffraAFJwvJdg6pjzxOJJ4tpuUBvNL66dNWsiDJY0E3F6CJOiS WXvqwO6MWgwnI/SokuIE Ttqsh1S9pWQx9dVAJsx+s9H4W+TdDSdDuQEKt6dvwZPfta1Nn8j8yGy7ms+tgHwr1LZPJPMls4r6z1l3 Pmu6re51uEcouB/ERQUZ QsmdTnED9w0a5w+49atW/pYQCr2xMdPr9SJydnkRkRKKpEHWkQ7fFsC87/Jes0Hveng4U2JazdyPwP2y 9bM/Zyrnb7DbB67d+ePW RRWa7rffYqo4dqWpXKX9Nh2ajXm997JuQlOB9t4cFHyVf2QQjXv6kO01mfSQty7ve7qAgK3mwu1fzPER UFBv/lrw6r284+/FYlEP j4+ld4N9huT23fnN2+syc/z58+vXLlichMHgJ9++zbx2ff5iem+/x9o571ziTr0GpyIkar3+/dnWdZoN M2cBOoWpJazk4J2Lf4ls Cg2hcekqzFaNz9w9eoPpRNEC3hl7Ss4yAS/kNYYbG261p8+/fSiiuGbDsubXj6yovHmzbJBKi4q0h19y nAZDE2WGgCKoEoqLFzag tItApktHPWSXzWXjYd4D28iskYNggLzcAGl3aa//vrr/XEjgI2TnpZr3ghU1BgvIiMICdJtqvjglJMn0 xskHeDBLlodAFQW5ObGX M5RfIPhH51ugu2nPDDBod35LPSAJt6lg37jmKnQlMgcM+rQgPuCAs99iDRw6R/UigLbBtq9QjTVhDyHR alZzENgtHmHq5GJWtNJg rHzvFlogOOZJUhTKpyJWsUwtYzKb7MTVxSExnFzsQp/A55RS/j0k3MVNBIUQZwRAoXoKwBC></span> </div><div>
</div><div style=text-align:center><strong>GYNECOLOGIC ONCOLOGY CONSULT</strong>

</div><div><div><strong>Patient Name: </strong><span class=clinicalNoteMacroHighlighted id="[id number] macroname=PatientName spantype=macro title=#PatientName>ALYSSA PULIDO</span> <strong>Patient :</strong> <span class=clinicalNoteMacroHighlighted id=[id number] macroname=PatientDateOfBirth spantype=macro title=#PatientDateOfBirth>1950</span>
</div><strong>Patient MRN</strong>: <span class=clinicalNoteMacroHighlighted id=[id number] macroname=PatientMRN spantype=macro title=#PatientMRN>[id number]</span>
<strong>Referring Physician: </strong><span class=clinicalNoteMacroHighlighted id=[id number] macroname=ReferringPhysician spantype="macro title=#ReferringPhysician> </span>
<strong>Primary GYNOncologist: </strong><span class=clinicalNoteMacroHighlighted id=[id number] macroname=AttendingPhysician spantype=macro title=#AttendingPhysician>Sarah Coto (Gynecol ogical/Oncology)</span>
<strong>Date of Service:</strong> 02/02/2025<b r>
<span class=clinicalNoteSectionShowSeparators clinicalNoteSectionVisible" id=[id number] internalbreaksection=false originalname="Reason for Consult: recognizeconcepts=true spantype=section suppressempty=false>Reason for Consult:</span>
Cervical cancer

<span class=clinicalNoteSectionShowSeparators clinicalNoteSectionVisible id=[id number] internalbreaksection=false originalname=HPI recognizeconcepts=true spantype=section suppressempty=false">History of Present Illness (Security Consultant Oncology):</span>
Alyssa Pulido is a 74 year old female referred to [facility] with recent diagnosis of Stage BRICE [...] internalbreaksection=false originalname=Genetic Testing recognizeconcepts=true spantype=section suppressempty=false>Genetic Testing ([employer] Oncology):</span><br&gt ;None

<span class=clinicalNoteSectionShowSeparators clinicalNoteSectionV isible id=[id number] [...] cancer excision

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
Never
No history abnormal Paps but [...] internalbreaksection=false originalname=Physical Exam: recognizeconcepts=true spantype=section suppressempty="false>Physical Exam ([employer] Consultant Oncology):</span>
*Virtual visit*

<span class=clinicalNoteSectionShowSeparators clinicalNoteSectionVisible" id=[id number] [...] & Plan: recognizeconcepts=true spantype=section suppressempty=false>Assessment & Plan (Security Consultant Oncology):</span>
Alyssa Pulido is a 74 year. [...] and Sarah Johnson am located in the [facility]. The visit length was: 22 [...]
--- OUTSIDE RECORDS SUMMARY | 2025-07-23 19:08 | XMS_ITS | CCD ---
Author Name Interface, [id number] lity Address [address] [place] [address] Organization [facility] Address [address] [facility] [address] [address] Care Team Providers Care Computer Patternmaker Name Role Phone Chica PALMA, Sarah Gallegos [...] Ordered By Specimen Source Lab Address 04/26 [facility] [place] See attache gomes Medications Date [...] Order PET/CT scan, sku ll base/mid thigh [place] Ordered 02/02/2025 Physician Order RTC patient teaching RN Patient Teaching Visit Ordered 02/02/2025 Physician Order Radiation therap y consult [facility] Ordered 02/02/2025 Physician Order Immunotherapy Monitoring [...] requested Me dical Oncology for chemo/radiation at [facility]. Weekly Cisplatin and Q21 day Pembro with Radiation at [facility] Ordered 02/15/2025 Physician Order Port placement [...] clinically indicated Ordered 02/16/2025 Physician Order RTC VOCATIONAL REHABILITATION SUPERVISOR/PA and infusion to start with RT - [...] style=text-align:center>

<span class=clinicalNoteMacroWysiwyg id=[id number]" macroname=PracticeLetterhead spantype=macro title=#PracticeLetterhead><img src=data:image/png;[email or web address],fBUUIn6PWoeACAQDALwWIkMBIXPQDYNiCKQIVBN0N2cAS SLQAWWWS8PJkd8x1ELOWJNyHW9RLZXracr3IENFWLYKgJzVzmPHAbHKUR8NDRMzTogJRByYGKZOOYlk9 J9WeCI5PosMMqneyyV2U sGwMiRUVLkyYngZNfuFQESUUFLcQsOEEVpjYqrTtMOgEYMD7UquPn3ADuqdH+u8/Yyq0asu0g94G59Md avtmhxtkGxIHyWR6bpDi IZVSUxNCrzTqlRcL0JrFPT2eB/qCsbUVBrAsWElPPKxwLYJQLXlQAOTEUXLrrFKe4SHfcKYq/gECxCGY OrZE7rIf6IzqLa2Io4gr ExRcPundzHMuTGch95TEyjdILMFs0chIPZOzGofxVUeTo6lV4oMyMwzTP7fqYLDeka02wdbnhAU7jrXZ Mf0q8PZf2pqaGn07pVTU dOsKaTc4P8yRmvnOrFHXGc4GDiO2hkphVf6mByoz8vESqEATByVePuFcmbCFWvFkwB1nW3hdh20sKWyQ /QtPMlgq2IPy5duv8Cb5 6oQw1x/sABhrlu+/hzmqd1061E/iBYSjNlkUkoRf9zRFuYcvbomBLHJCYYZ+AdQYHAQBQQQrV7+EU0e+ dSxDJzU14EKuysmFe2Mj 58DXzN0Aexrn0+qJXFL2i+xRx8a//1oZekHVxIHJeNYo9+t5Y2TZbnBd57i+5EuFYtIfkPIrV17dOqso Tx++/btVL9+felnmOsJF iDMdUdGRgYFBQVJ/nTMeDjKfmpRWmvGGiUGUDsNC3B8Zm1rr3/OD4MCfd3bGn+EsckqmIRT6tjVNHyiB NRdR4u3mhevrmQvJC0w4 Xdiw15sF5BXxp5Y598bNuUY9JLSVAnuDQHbddLoRa5nqVn5wC46EORdLirYSY+2zo00vJvNwXjvmN7ej IEw/wpWrFhB8+fPp/Xr1 1CuMhSVtPjUHv74iAWhzxoqtHKI89YbXViR17C/nsvZmli5NkPNNPGHvEAQjQ2eUkIfVDXJiXLnVr3lm 17erKzrObPsg6UoTEY90 MJmxEPGB2anie4WZqXVmkAsppGOzdTQKbOv0Oh70ha7XZzSExdHnChtlVaEN7k2/OKwLWem9pWqKu+6s 32qjwtrVfHzpSXqPnQ0H fAfIjWuQpHi68iSgOXKArTMe6hvrC1RppJ2Zg3yt1e+bcv1MCUNFFPByIVNMKbyWfEa74//vhQmDFNQ4 Z2ahzTJmIEkOUOHK9LhE 8bRlQ913pafcwTyPWs38sdqXfR4Y41fYi3r1l2sox+uzDoHA2gvayuYj287Ph/DyaihRb8dhRBMiNsH9 yICBQ9XSDY6PRc5Ull5W pIioqLpu4+O3W25ScO4MZ+gD2e+UpCGm8bQBV7KCa8W52S8iJ4aB6R0b++W1+hLUYdBYn50UV2zbKCce zwYlJANMXQXzmRsqua0f KvQHkh5oyJ5oDqBYXBO3r0+e8Ge67cAV5WcWovWs2283y/IMNadTzO+LWEQgjVg949SWzGVq95OWdYAI tnSt2/b6wboTl3JcJSUz 1MsoFdjFXvwvnDnmx78un/DWUjUyAMWxkSUliSgsZ0iOlC9FUk96YHk8mXrA1CMIgsUZiBHTuxce47/M NAY/nT6M0gYKXoYXbsGP +cafn7+wh9XXmRTooFWGGZ1NxJjyTQ3j66wj4ErFmRZY085F8FlfQZSFFCsvZP0gYNYWOeq8OnZkyRKb 6GgAN8GTk07SqsGlpUJA 6W/jo15oOakXyn27QegaJIK7dkMa7a/kMte7MYZTcdQo7DW5vzQF7iEtk9xlNjhEZQKb9QDUbLfkNgn0 ddqltuX8Rk4ftRncg23R z2dFJROWFe7W/b5hK62pFPHQZdPlZhsHtjXD0g++uyg8ynvckHhZ6XefMbFBVkXCAJvOJLfgSLZpwOJc QLWTZgIiMUPf//9dxXrG gy2//nic9H2Z3BPxyasJPh4stlB3yGEkM5wyvnEM9g5hbDLGVf+/27XmJzLWu2znTsTLAfJdbK40BZND rH3gIwhr22+vY4DS0GOa pQnSTcYQe1ODN5qfydbsyp9zAdOwqMBhNwpnpzcrj4UKS+Ex+QXiX7/g+gD3RKyIJeOvHtM8LFVL3jfP pbnPmbAvitrFw8j2eifn Bs11ARUf1/I9CDkL9yUDUuSpiNuk+kL0GZL9ScNacBG4ShFeFXw01lCoXjlA275uIm2u19kVeRuCGBlb E4bHgPOz7NRmRDL5OecY eUqVdQexwwdOlRuddeZO/TKlpBmgz7CtvB9JyIyOKBHb7+vUWCUtcdKhJaV5PovpfZZkpoyUpQTbWF0/ PhxGd+rXzDey0gyQxBo6 gqgnm3VhHfImRQHQavqqm+NY41tP0MDCBSvGgdiwClikmgAsA1BVOqtZsKWileeVIIrFATwFBfqgkm9x NG/t68QxlgOUa0ntDz+c oH1vYvGOiQcJUB713wGZvZLHXq5JJyJjzIRf+9jdajNzlLKfy9NuNsopV/678NL4wb9lJhAEUkcSwJRC RL8KNoCRT7QTJdFKv4VE fAKZzy8i+kqC7Uv387mH7954hyXZ9Y0j+4z9b1Nv8vvVfih/xbZlCiSFAfK2Ip+1HiHAy60leIMUzbJ8 wERGTpyqWkZlJCYRCdPn nj5Xgiln2zNYHCc9zTt8qFwnDM11foeG5k0igdSNMQweIAO5h3RUac2i41VDJhaIJ1XIcDXitb055yNp hKTC7CxT6aJ2YGagaQhA WriwAA/ChCl+MDhwzTsiScoICCAbqhRnSa8+UTe70kYagutk5/JiHIHHXNwbM0xoKbf4SjUFiM4hMkrN 6QuOKsGv7KHKsaJHrDen OGwtTr/oAAKDQ+d2aGPWKuRlVp5L9TaSjpTvJPHE8ialXhn/zKcqZoU3g3+jAFnOvk43jmc95u5tMwwq THxF99iz9nCnJiKnVaRF Dj+rsfqLzVoRwsTGfOTBYzKVNJsOFADQSSy2Pd9h0guqScj4qfb7nTd5d1CEByUsVlJ5ov2Y1VSBWK5T ea1j0B5fBgemsk98dURb sMOQjPpE8nLwbmXGaYhzmi8ryB7HHgg5OgV10niFE7/c5fRf+IUKabgRMzktdriG3ntOeeXHUU6cNn2r mGY/O3BHMLCkEr2HOpni qJlH+eokDvffoex/tfoFTvHxGGeC3ToiwFdeYrKwkKdc0t7D0AKIFvNEV0HrveAJPhpYoFqL4+BzLtpo +rzCXMUxLiyPqbv3a14e md36194rm5llw+MkqVKSz/TJSQ3IyGCsZBt8RFWdigO0gomKbLZLR4M1ZI/kmidHmAgYFRmg2CIi5yKN PF4cPSI83dWR3fkrhS9y nMLbVy/gZIyDWm+juhWPNCFxOMR19YmlGQ3ykElZqQsrENcneX7+OBKNiTOi6KsbRQGl/wpUByTkJZJE 6qXommDA8sIGDeQeKu20 +9XIYbJ//DAJANwuIbLbGUUvuQ6tRtXZcxZEYh4zbFosC/HvJCriOuQb6jGPix7UPR2qX0xP1mGrILx4 PJFz5FES+IOMZv3mFWx6 vUxM1WAq/5137j3n3m3zuGJvK4PZPsEZ8OX+w+Wv5W8BTOR9NNqu43YM13xCLDxEHL7+w+O1VBDAUeqJ AcCPNPIxZvZslbw3esCU MScHnzFzeJsCBAoeVs0t39lRMu9ZImouHJXpfEIFHkbdyeMvG4sLiZgMZWhc1u7FP9E7JqW1iN0gIo6y XQo2LnmmMq+nurUrUcLl cCNVolv5T/hfdV3Dm3G7cmpfrb6WWjZLeZjSRQy5ZFLU5oDuY/WATpaPjYBjaOE3Br6d0ils0Cl0I9uz dFRJlTQB8dJ9+QWVkxYX 6e2ARnWcwg/KeGB57ejvuzXw9sU+ZmSF9LeTOCNRjB/WUm97SWcvOGGvaJ2Bv88CH6STP693fvDN1tV2 LViCZ5syPrqm14LtxXs+ mPV8FXDSUyQ4bXNQ6up/AlHY0NDgmQmRp+eTQ89+VM5F14vJItmkEm98Gobrj76NVXOSuWMwk8IIRrTm sTRTwpUiGNkDzoKQn2Xg 4WGhdGvew/Phd1kMW828WHjCIzlBBpfupCUzHslMYb9DXQhUe4Rv4pQPlid+1zx4aeB5M95B8AuAgJnJ 6TzzVthysMT5NmO7+bNk 36GyY/nXXaSW7KEwilupAK65j/6ZbrvqdEUd+9kRIgFjSfdAUrAgmJf2FYscOs/lk4nZX/pMWX7tF8sQ 7k9QgLI2o8ld0OJOnToO GkyB5WiVDVaWHUybQaeWz3uBKsg3UwfTvIBWSbJ65UEbeXaeb42j194a4c/kkkU8CJICcE8DgYXV0tgR zwKg0tIbHvHhsM7iCJvB 9i1THgESd+iv7VRs/FNNHXtFrp0+hz6fGT/OBYnGOwosMCkU04ONfn5UUCEOHBDpt1+gQEUEhIgKuYwU EGrQSdsOR0WBxTkMuxAV v43lnR/xw7y5YHGIYwYmg0K7ZY7/KFFNm8XzVpTWOL1XKKwR43Q2ZtxhWoNJfAr+z8p/oVSbcF6LY4/K xGmRY7y69aO/d9PqnHog uRHuAuLyXcMHDhQ+MgUh7eGMz37FFxQAPDlBYpyiyyyd9Cea+X+eqPczcoUvWOCKON6mNj46mkXUuuIU 9oa99QiUdYv0/kPg+U4d 7R8hCrC+LhLdM/hw0FxvRyWi4ZRZy7/1DC5r+7KgxaeZICXJ6nncn9yoUKE2fdB8J+hrrU63JYMfkWDI JOvgEns/Rucnd2Yl7hbo wqSIwKipA7BKswpIQxGjLhJLl0yEdo/XEJHzsRRTOFgeuPtObR+gPe6A7uolRhmeFFhNzkELvkkuoMU7 DAXrtDcTaBphxOG1156U k6XlXriOgXx7E9G7CLDuvhnLPkgnOhfkHg1NJtqA6lnbXSi5EpHkfPWvpvFEUZFE3ub9UTQnoJKOLDkQ WNvftEAgln5PGUtNIHkN ZkbAFWa0oCgQFiNcFaOStWWubdRYeuuouguOmT7Uc7xYAfnNo3YDe+S4qVkEWH7N863X5BJ8fdqum3Av UA9dQn9GM/zbIy1OADuA WmhCTlYpNApkKM0cClJbacEM4plIdNBfAT/75Ho0kgtSPc4ssoWv5RIjVByhyIhkjxLruYotsOauTX0q Gne8t4+JWT4TI55cRW1y 8RlQiSQDgSrOfdrFxBtNad4Fwj9/n9C0h2VXL4qKUmXDixQ0UxqQLV+CuKPlxzlWQ9m9ni/G4eEvikYP JoqtcBHVziZrmq59ieyU x/B4K6CxRN7HirqHWCReCrnPBJ1HYkDaVfGnqrsiZ6UDyPMLjtntAw85FC+zbqymDnSMNWSF0ARSn2TS Rj/wXSSrGwMGUNJgCt17 hhqO0qLkiuKUd8ebJpO5FAxTIAkbulyGWMQDUzYx6VGN3n3xUq2SyLmVTDVmAA5c+D+uhAfPrUK4UgXz KjFfV8eSRcDAwET2cEZr lS/dZqF7W9+xsqUDl4zgHPz8G80EBSkE6LMaOm7h+vn70/n1g5BbDkbnLRPdfbUytK1wQrHKUvU74RWq i2daTbOHzLaY9V/rATi4 n8UGeLhY95Ko7Tl06lCktziaubP/G583Osi/ZjbL01f43TwyQfS6S6WXmpeCqWJHdCEYhDHMSuUQ5y2u jKCEZjBkcGDwNVzIQ1Ck zZdpp8/KWSwEs6IXHUCCh/H4S3YjCP1mzEo5CKq7ckSoxBENTTcj4khx1Z8NmgvQ5B/5g/vK1Mg7Rvtf 8ea8a1eAE1gEqAe0VVsr Tl0XPJMn30Zuzf8SR/NUcxutxsCXksQKB2r6K5iPYIAbS41rQXhSE6ylp4JcWiT8kZNkjMj7WJX/AELE CZfMWjQIOUj+j5NMzHED iZwSAvh6IN1Ezvdznx6QE5t4QRGFIeQev9LnfQzNh1eDtkaXSdrYYfr1hh2cQ5z+Dc6/QFuprw3eNgDZ 703k+zgY8hm2IZXCp1va +996WleKVyK2ICpSuxNzELKHXbcsbpdKZW0zoYR9KF+ovrqR8ZcU1yoZeGiQA++PB0/aumVrMcC34zJC +CCJ8SSuNz2MVUerVFLO pO5xrgNONfB9IJKM0EFPue4CJExfbwRzrJuC9LgIX9hIJzah3BfpfX+AlQEPpMMNTXcIZ3MuluskpkQE tKOv+KC2VAlDZtGcVDuX ltALgwqa6TNgCjkNzGCCbOnLFWSHZNe4XqQEGJ5NnVuCBvBiz/YJKeM1jOYuGpiSZwnKuCmgpdVkeCGZ mYe93ITFoEG2DY0myPHI Jp7xk+l1IOHUv7ONxV2wGBe/krGoxWfEH+JUCWjWwjjJ3+vgwYkrkEKNpMhi7+kLCFEUoVASElOobtGm 2Quq31ymmlUvyYBePTX/ xpLgRF8n3+SgtUaA54xoiqfU2VNnDs7dTiJteDc7+Esdras+vbkxZjRrzPUbRBcbE9L6OfQoq+xQoqJARJ7 gr0MnaBsjTyruZbXH+6h do/JeVvpmurlqz5PFzEqhIbpt50AO3gEwN6k8SGFms9MuhPuAEUSiYosWGCrM6L+8g/DPr1bvjBwmPrL siZljp4YP3Zmj/tp29eG y+KFZz2UXOc4BJ3TRW/gSMDxSao2gZEJeKt/9KOGPn0A+iSvEWIUKrvkCoILzrfVgkjxBXB4Yx+MrJQ+ KfolxW05kp5u3Scjpzuv yeOE0UlgiIePH+e9HoRFtkzzeR98RSZ0qc+/iW1oN3bsX62fIVPf4zCV3fY1npNXEQmMSAtCO0b62zpz qAU8d5EHSGt8SfhFyLeV gNm71y3j7RaGtCmUBFGpUr+4Ol3dFsKDRmcmm3iWzTsALSZIQS/zHtL7r+nqhRZhoagv0aORlLem05ej 0lklPS9Ab3fDFkCQV9Q4 S7+MlAR0yn3i87srYI6vjcc7HuwMMFZmmr3tqTjhSE62WsCwNVYImz9hcqC+WtVSiChaVwlHXaSU7rRP XBByGp9r9AAM/+U+xkmP 3SNjMvVXF1+IQp3jgQe1jUGZMjStlj85jgpEHvSu2GQyjpGjVmonWFyajY5VTPPHqhMxsyGHP6wfp+FAROESE xSedTYYHfrol0qyRkCF4 7G303wQK8dxXfSHpnZqktJP1CpyOWRZlNDDOE4WmTbEzZeF88IE563TQ1rGrdNqL3lUnJz9xxYOj+RPW IAw+GMwVZc853/T5Mnmg NLyu0dCTlu/bxBlBgVRpn+FqXgIZzDGvMFLQsl1xch09cyoRDtk9yc7hjWorgWZgXBVTNiddTqabbsZN TjhyrQ13BIVOATuUVtaC fQDbVgZVsEO8REry9DOpNENmMnCF3ZRFDFE0OlhL5BjrmWr5Me8y4MrSqOuSFZNlJr+hXIYYQrWnO91i xLtFnN824MI6azMY0Ons DcFWHQKoVZLeQurKpkI5dTOzRJZokydRuiu2omZ63bYMFGlA7Mg4MY8y5V9zcAbC3rdKviuO/mMholzg NWYRxu0Fv5PJIZHJcMif oREVSh9tHLw4r0kGftkVqZ0eUvb49EdJCs7eck2UYi+RKpftojw5ZwCNe+DIqqFSXhYGCWnpVOoqIBT5 Li2bNt41YaB/zOCStZrQ bsqtPHTtbBCsrsZ1ZKozShryf8BkQ9+6YiZ52gCrtLSi6CeNsmU5Uq9Gc3lDAUkrB9lK3QFSgsb2UUYs hcOrP3y4LzWgvIXxxZWc KjGQFSOoE7izO2+qjC6eepIsl36WmOPI97vtk5hkplUOQuhMnagxZxEndJCvyuPC6asfjMuyYJ4cjM6A 8F6eizFI0ghQq//mlb07 szpRmCmxN6RzEjvh8ZQ9yPDPk1m4U2rGowdrxTZkI0/cAmboU4sgED5WYRoTGW2J1WG/b3KY161ePDEF sRo5AY0o7wJ04JdNRIH2 DpRRlyRyfPtVNDqV7ZRP0ox6kmOxP7JChhelo5i7CirJeByMXpyfj98UHDGv8JbdQ3CACy5i7XUzToc0 Ny5k+rUqUMVb+tGN09+T 0ghHAMV1b+er8pukM/XeN3qln7PsfjCFMZtHIJwFwhjrt/XyGfu1livVa3CFppqvhqXVyOt6XMl/OnLZ OVWQaP0ot/Wf2iNGcHa0 Unv2AqstL4dJ44SUkp4lL8/1X8yiSYTfNpCxNKnF+eR8sSg6V6qnwlUE2nehujTwNkY/gUX6doGZ+jkh z2w8315UB26YG2TXFzcA iBMgeHTTz+dianne+++ygvk1JuxyzU2YTlV7ybmXIsLw5BvVC5INb6mhh58gxOJm75UpWCiyz1TJzDeepxBN Y5VBpetdhkP34seL7eeL fJCsdBfFE1OhPKL3F3qU+K1w+ISzKTcDo967+zF9xf1nDxjxA6ed3kDgz9zXqA8NXSojIr4tdMifzVJQ k2DZgICQW5rjiqNOyLHV GGdWI32jXJcB2PIYm5fOV59cgdagAULDhTceURhUsn88a5pgubF9Q+YbhMgqIVRjA1/fyFMgikwJFzW9 HU0b9Hl/vgXVo4Kx9utv uvvJmuAXfNyRuNh3JzxBEBUA7RLHAOQYC9EDk+PdiJdt9FZi9TBLOyk2TD551Y42ZYG94n7nf+8CBnpy WQIDanZ/B9irstLPgTNs FwkXJvAxJArcysYq2Ppb5hmlVikjDiqyMIIxsWx/s3oW0Ftb1sLQLFIhYtTCf1+xQi5lPax0PHyYy+7Y C4XCuwRE42NdmbiZlPvw EV0uGTqTp4/pd8qh1jVJh7C6mI2nFY7j7v9qA+ifTlROKiPMqyQnlRuJ9LBviUXiwJCr5ovpGjPYZLoC lxVe8ZLLCsO4LAVWyMLI n+5XeR/TikzmA+By24oQxQQuOE65u/mJLJ3Q9EcxHUf/BwXSXYWRpXcJfjlqIkp140L9pLzWOJpB4SmJ TZLPCjWE5LDypeWPWtAw WOK7QTSshWxEVran98LPqCg5m6Bi1GjRDwsry9LXCXZekC9F7B9EUnraakgNdPQNnHgTqPfe8Rfvt1+J eJS/GjqRJVIUPI/I6nu6 j8U3m0WLZsnBSt9687bnMjCTqChGwiWLLAkf7DMQvpqGnYEhnuFDVI2zcY3z2ovyxa+gZQgtCVQsmRJu WWYggBrIEyBAUubVKtWT ppqqncQkcOHYri9atqFpP4SIO92oXwVIVuAPP2ysJWzu5zC+YlDmb6fDRLSLLZqDlVKYXG3wEfH9Tilr dZ+K/oDsQtNySa1Hka+R wT8qOx/S1IAl7oCGwCV2pRgOz+xxRcQ/lAh6BLhZol8u8jZph54BQZ6BtLlJPphKokmxLphhkgv9RLx2 K/52kFPRJ03VU2wpfAML RYgTIFCm/RGdBtAsU+/QAtxEhUtQxF3x3Quh/admjn1az25aMsYwrmUii6erxJqiNUe1k+JWaWL/0PCK Csjjc4/NYDS//ej9Pnaj Od41fvxfpXylXQVoxJ+kDj+Mh8cZ+N9iNXQv+/4S5ePrX9JtZ41yjDU2dHFRy/5tXji8e5i/6gYSnzpC UpbvVLG8+wRZIH6G7ruI HShjP9PnOPbYhOlG2hT2X7CnKCTtJtPtJLOg5M+vvPcEoxUy6GV0Y811UJIgf4MgIOGMf7yWNApZSs0B syswBZUFOsBJcoZYg33S 6M5p7q4gdPhR4WE4eOnHQpbLi3M1qBD6DNGW7B5xYGQdqFKSsxNxjgv9wIa53eKDiWEdS1ky4NofUHgd X4Rn+gfQPGnjtuER/Pmz gRFYYoNABWQLoP8ycFDmjhxiY12DDLCHfVvwxty9iNzz2UGfERrTlnEbPqvQdjBoOzzGQDSQLERZm6I5 LhZ9sSTNpA1LfqGONf/S unSBNiqCWRR+krdOUyQ9amkzBP/TDocTOjAuE3LZRQGbTd8CDdnbF5diYaRjw8gVRwICeTSEQsg0AvKt JQNrFcARMsFS0TUfK+aN Ts7UHLdbRVPLJW41nWBVsNsKU0SCqD9YWLecZnUDSKS1HixwA9xxGymejhmyB7zqECbZtTUh2fXVTl7F omJiOP492lyXeG98mSgu 1ExZMRfIOOVYUTdmxKt/ZSoRBmimUIzmLmCqFgpom+QD68kkMfogEIsYf+bRGhWr4nO+o10jWi5mmNXR z7A3EMC0vNM6WCKv08Nz BFgJjcnVxuYwOQm0GtZP8TyXs7ap1CWIbjMsdW0Hi66CPQRvkizeEspowhQRSQtZxDLPPKZZ+qFHJswi 7BaaJWfkt1mTlDwtD2MG G+uIL/MCGJzaMfJ9w5DE66j+u8iXQxY7IDkNoY/W+GEeE333SnNu54fYNh3k9NLt8VwpvGYN6ES8unSM 3e6YhAkUm/Qt8DGz6bPS dyXRRB9XCLgelXUVGLDdC3WiuNTKjTmUAcQRTyjdSviIXJMVKeUGCc9frJTBpqrFndkWKGGwiX3STUj0 QHJaPDLcdzVprIQyM1rC /YtMrb/FUXPn8L7ObVXRR7KAz7Hmx5yAzY3ncsZofgQ4HegC8uOVShC32YwkSrlUwOHu+a+kDCiO/qQX +9NEIg6iIiYwVCmWaWlQ BY09kYF2RgxCiHZ6+wpMj5+v7n4APhtGwj09BC/dv4UCrgWXtuRagXBw0sDyi+3ORu7KznLABY8C9EWO ksJKiSEQTLReVGh/y6Ex jg4kxme3O9S6M2uirOq9CXbmjMwaKanR3wNIHS0rt0AdNycESk8ehiEC5JUSBPOs1UumT3OHs9plOK0n f6ceCJWuV/nL0R/HbflD GuRR58ebv4Koaz4WCEwRXNOAPa9gsgujaZdeuQqp8oMkZNSBfTiIbCBj8NAPMce6RzC6FeAQZ5eRSgbK Dpg/4qI+MAgolChfYRFE e62PUChKQWDmGBJj4CvOTc+UWlxe57zezUXCqzAnT3YnPD1+Omnn+jPP/+TUjxxwERNxGF0xlLpnw36D DkAMXmDxuHggpzSq3ZXK kLCIT183oA2PrTtG+lIUDzLgncZ4cxEVBBwuxc7XlqjcWM+WbhKtvkqLNwweLAOEBq6kdrfoFJXtEsbN Cl2ZbYs95aBzHjLqHlyJ ntIGwCKxI5b8nrGbrNfIcD+H0tDDqoWwOARCgZ4up80iosY4c392A912NCRLZvjW+KRMVBNTEVEtqmsT wR9ztASoCoaH1zdGwSnp APSRLxZ3oSMYJdmjkk783YNQN+KnbSDKTyn0IsVSDrOBFAz3IRWXfxZhsBDN12/4ci1t9t526GPhX2+4 71zuUbQor0cCuBz5rNs8 Ng8mBLKseLLFj5GJNO6r7dkFLHYP4QsB0oEcQCsTuURRUZy2zbbrz/2N5XPAZdmDPJT256xE4fW28+/r UIWIqNN+NJb9Axkee5vR tOmTZN+lFR2xAsNsX4uFfRjVvxks+uuu+kLTzp3KeRVmRFFIwgaX7eRL8Wsm7IWDUlLKKKqdWQZzGe9y javpGrVqtS+fXsaPHgwC h9OexEJzDGSeuLPTjFgQFHnbQTEDLMdDXWRHXWArmZGz8BObtVMx/eSJbJDMVsDT8uYNZkDWC9ZQuBkH IbxCRYgDMMwjE+wAGEYh zM5wxTXdfTX6bSwITyURMplBTPZBIrS+WDUIJPuNOCwUDnHm3LGIWE+/LgfDkLsYFyLt5ihsZD3mGIf/ K0G2ybHIFwcmQKAJqLQP UXFixenrKws+TLvf3mM9rBZt0nix87y779eaqj47ksex2CBU58YKccmcPIHhbFuMrHRsRVKdHy6tPMXk tSzZ0+fCKUFEz9y+ROPB Ktxz31A68mxGl8gl5pL6tHZeYhmPkEs6WUIDqYpr0otbwmvwYrVradPnt1LJ8+evvjiC/7SG/Ai7sWDZ 3KhN6TPKxsyId86iPpri plZPU05oGg+/tjiuykldkpeWngZ46fKm/vvv1+GGSa/3bU3ZSz4f3oj587LRMRQYMjBh9fBrBmvKRDQk Adz2lMFQOh/EytWrKDu3 jqDX7Knj2/+mSpWrCjDjvjvf/0Rda59wIKZEGoBZn/yhQqOm8BvMU99Qh7baBVHz19VuMCQc2MtVOmIU 6KwcYm9WI56eNYz5MWd+ zvGXb9PO9e63Javea/+oU38vjX6yAXmSltpjYdA5yLPo6YVnBqcn6K76iXR7fuMWjPUBRYdZ3u9ZBByu pwGhpTqsaryw7sqNscbK RCRuMYIea25mSLiQXkNSM35QrbAXHXsmtQxuwOSQz3k+OjD9p2T873Uh1ngV8KXqDAAzGNgrdsRTnfE6 OrRowfVrVtXhUiOh/g65 pssiA6YHpEBfRxdBRmzYN+++KLyuQcvFrSPm2++XaKSvXbv17/jev/9/nTYmUnV15kENkBlAgQRNRpt4 VTIO95++14gI4jUhfJyN cw/h7hP4Fe217OndYdMvw8pPpiVNZElkRlwiIoM95e0hNQDM2iOwYTOUrifwlohzlcreC8xk1GmKqDZR ETYzH/ZU2yLpZCHsWJDn 823muElw1IcIPfFNJCXeoIm437V48PB2VxDQ+/bt0+OxyAd+sstXYwSbDtQ6KEyXwV8Xqek92AImLQAA 9MEte1cKwRlFGaScoCTl TJlpMN+3Buc63//+288h2voIzl6SC+UOm6mNPDAEZyYNtsBcAIRPXz1zTJYhz3ltr+PDdOe6C178JYAv ZPj8nhiDslMaNs43VO72 fynCE9emlWGghgwa0+tUrgHx+Ie4jfg/cvSCpm9sWHGHvTJre97TxU5w0YFxQ/1l5jm9uA3Q/7880+aM cAUONl5EDDys5974Ue14 kukGIrwaFkdpdgqqWSPfOyhY39HoFlsBaVoP7qegMC8S7kZz6jinDNqujoL9HIt/fXXX/WJxBfUU29IR NpmNEeYOAVjM5AG6qTSX 6h1UDncaoSEB41tgpnui2/CcDHRCPn7bNzhdbgi1fUqaa18gwZf6uAhv1yfhgEcKI71FYC0y8lv3YYUd 2mFyOgtCd03Ehf7qfS4H jr1bLHCDOV1hM/tm58sCLzlgVwMCy6YP+E9wfuN+30w8kAdediAY4ol4oAmEOsUjvHx+sby0CIYXD4wL aVwgXgpvUKcDAJH+sWJp F+9OoDuiUaAkI704wq3rIOqZF9YfXw1g6gNA83ubResJRzfT21rjyuWc9UsqEdFMpZekPTHGeOnU07n8 v0qvrpOSm354phZlsIAd Std6YLQz2dlwxy72gxhsaEtH6++0zxJRUXQNZU4htwuSaPz+++/U0jKHYBp7IzysMeywxO2XU+kdLg+I axs+1OsKDj2AsFojF9CI LAIbpRzwYRrgQQvCMURgBkPXWHUiNrBUDQDUGha0SULqtuUYJwbXx3a7k//fePGG2+V5xzaj96b6wdAv KTqCDJS6GJAWxyZTRyB3 fs0jhpmjG3h9A0fB9M3YkXOVi3A2uBr8i2TTYBr38yalBUyff7BeeUMF/xOAPNJK0DgATcOiLEiGAA61 hKvV7ccqdizOY7VD8769 uOBJkQmp4fRs5YLeWNMUTJq73788s8FUOZHOAzEf7/0Wou2318dRFtnYsGjQ/PaKDHNeVt8alb+33nnH Vu5e+KXL4Dz32yxGsDc3 j283JlamfU/e/Rtdbg5GvqmUNjsmQIWgoEx03Mnw/dOELt2qEbJKzw21VoaEWzrDOZkgrvUYOkXT563h kQKIrUi2jIPigIsdCMw8 B0zcQw95+8AX9r534gtzb/ViYa/8fjjj1/2okWHqyTS0FRRKQDgNge6sgBDAeUgYTsTn4a/BHzUm2FJM GCA9P/+++85jvVUgGiee +4534P8Vh3CLwB38fIIDdeayjoGcGqEUkHn813oV8Om0eWlj35zUgy2NJKPCnZBM/aLlp+KuRrRwpdpR SqIhqZCh3AAFUrVrnsKs rhuqdsLmaUdRBdKFpuu0xniPLULIfUXflTk7u6lUlahm8kTqpWWYi6Bth6W9pQWAzpfpuEnR9sIJQHuD l853RYWXdBULGzkAl6Qg f0Riqn6970yIbedgm11wMYw22LGVHknQLwneBZBKnzmJsOLQt/h2sdurgik0fOkik4/JNf9fJenzM04o qbRfTySOdIPfTu5ovk36 uWItEbGwCYsBF6i8zdTfauEQVOwB7h5ilDGlrF9pfPRBYaPb19ytUtgcXehmrJ6QdNtopmMaRLXFsuJm Ppphls2bb7TWB/XHUgnV DmRgf8MASjVdARgufPotydarfgUyQGcU5wqDW/b2Ax2184H0Aj6p4EVrQE6o9N3Msgd9Lraz56JFRXNd QrVZcuWqdirQQvNERA8+ slRSVjoieosL63yg6aB7PuJsQurvYYc4H1fM8dg5ofiqqurT5SUPvrBTq8osmcGfi5m70aFRbnK50HQD kCutCaANMjPk/fy448/t w6umrk81Ylj24/tjNhb1no8nPGtsQCImlAQRsnwiWhlINcgRM0KKjNRwQDE+EJae/P6vS8la/ToIeMcg R4ZR/m4w+on6RTGAV6Tv Z7lIECcMzgkSDyxJ98pSsTxtPq44Lj0T5kyFpYpqZE0dtVSvuHCIpwacvaMAcV8vr8m+s7yO73szUXm3 T9VrTZCzyG99T4tjwCbo +seBnburz8NuuwSXz+cuHd7ORLWC2q4fHBEZiFK/nBS7b2Qg0iDatSlmWJwUo2miQbYHocS2PnjZXu8j Jda2bcSO40v1bq96Mr7+ dCcHo8h9chY7b05y+AS1828F1iytnjFowCfL+euwkcad+h0vlYBFRvk8V6hcvpxCn7z00TVdmqWf3Ifj b++0920zqOGid7r4eaYY y3yy5AIle0I162uC6a7tPZveEIzs9eSff88KWZ6DijJbPe1EczA6aoXYFKwqOem9Ho5WeFol/112wXCO wmVmn30BRD5UXPJ3bgYl uOKONxaYVZQ6w6X/9Vr6BoujTgtRr0RysCe0zZzxm0U1VthmuDPQTMUjSsdS2VS4vqOCzR4u2sTRCU2d 5cQ/eD6N+G+wCk18byeL VFK9gfhZKP2VWznrib06u+9bASCZ0TgNBV6HyAmEo7vlTLzdEWMwiRBAVFu9NOnYzsEVQuvwpx64l9f0 lYWDMvpx27+GiC4Q916M +dST3fh5TfqvDsn93q2z5DMakQ59enrqLGs8/E5vpr2XYdW7KUMgkQ0EzcFOPLBhzPoXxt1LTLBxVlgb ewLXpvxOmLEiBHKZ/Yesenia 80aCdco37+UCu8hKl1Z9509dnDZOVLTY76XGn3Av5AHOlqNNNTeKu5pK142uqIaVUUmLi2oy+uAVYivf MoknqXJqhl0yqmQ45HlW CYLjc6b2XDDigZY71ywbEjRw1uh31q4b+UwqALQQZ1iGgn/Y2CVfH5JpwZIH4ZQI3h8r4mJEc/YW1D5g sfiNn95rfpReGmHmSi1t EKAMQ1dIWZRGsCnrcULuVuj+/GF6NzQMRFFjnKfk8GNpdSvPnYFWxvDgyg8082cqJyW3az6d6o WPFJ4b1gN276Gsgz3+z+ 9cZKvfhElGDYwyTYZYyLGPWJatUhgmL9MYZAbnjprB2dC8ARbCMvSGD/str9lcEOv8rTnbD9BLB3O3NU FpUyme+ZN443GFFRGN9Y KNSCq9Om6b50vplLo6sLlX5rqPibXvmzdmJKj44Y6wQgx5JthWQsaaGeXJTfXhkWic/Jg1ImibOHYyQ5 KN4PxB5xq2vwhNAzn2JI 1S+oQmef4IM6+bNSWjbKkTStNdbYHJt/T1Cu1U+19QjPv607NFPcXcHOzmIadWeiwpa5ySS5vVZEKF4Q XIPCHJT4mEp7EW51vUBr uZHf0cGcCyBxcRoxwROA9/GDjRZQ9patmGMlCnwYvnXJLmecN11T4+9wJSd9jAhMsxuxkjJDLmweTXh2 YXDhw/DeWE3nLWfzD9YN KANuWtdTQFIcGrRUoBzF0vuCBaa3HybPb3n5kf5e17cY3TFLih1wLcBOX3W3a0a7doWdodzYKIwSQ9we C379+8Vbew4yhPHjppmH HgUabV4ywx0SpQEoe5fcTGU+rgJbk3Xdm7hNMEs7pA65lidssWlGKNCxYE05gnnlK0Dh3icqbLqN38lc EUs0bO7u7VCky/kmQDBi hQPnWL7cabWuNNUym3pPgaqtYhvH4069voBGRQU+lL9OGjGupwLUVW95CF1eJyjV7njtf9FIP4qQmeZG EWCHumH8xNBgJEcAdupM GQon+mwC7mL88sf9cCPeNsLwJuQbQoiRRgf4oFobrs04Y5fJ/nByoOQqruJ5o3fJ638v/F0E6rSoLJSS c2+O2yEcto0IbJg5YDH4 pVvadl0EndnKSfISe3CiHm9qT5A7Uh9oix9qPc05m2qWVt4AfqSnvqMNYQTyeVUVn+0zKiyjEFH0MbO1 F6A6AwAq5cP3p8n7CM48 nnnvT8zovUVdWbcUlOAQIZkSb9kEM22rECIssCQoUJQqzay+PWOwvtRbXT0sQnXQbU6FyvluslqkX9bO LNPuIeSF2XffYVMcY0Ma Tq25RJueadknfXR1y0dx0k+Kw2pIM8536yq+mvjUxagMFDIjC5D2ZRSAMQOE0illWPAtTMhplJtBKBFz oalz3BwwEz/jTPtBasva HqDbx064eeDH6fa7N1g83wxPwgziKlI3hjjzc8ZwSxNPYAZUfBkfBaqvWC8IHfim/wMtCWtIUEqf/jhh 9IPctOyQTeRrqjRrQXJD 3esC2TopGGhmhMPs5SSzzLwAAk+v5AFfQHQORVS9a3SmgFiGMT/slMobJO0dzxQZUlVlWrigCpOuw0k3 7XlNfYNJuvAqbflCddpb ExfWyITW1LFAEl7hKr7xmDC0Kp7tr2hgiqAmXR4820jym3TCrp/o0Ff/fQJUvMvfFfCRGOKXqdU4IGZt Hb5RqYVlc7QAHrxRN6IX 2826CYdGSKjne6aP6wL1wVbbMhWXvTyPaCgoYT0nC60/NTenPwTZrwwaXWG/JYE8PfXttDtCJt8Wa2nE O4j07IsRfupuxIEKqWOH u5CuP1KCwDo8naDLryFKyg0xL3WU6Fntp79xprv6jzrHEZrwJhgOqOcriy1AnEyuYfdHEYz9boru4cCK koO0PqTT8avaUP2JiOXN oXOFIvxki3TcyWlzqKNIQcOVVbNMDnOzT0Mq46bUMmonvf0qHbSwNUQwis7HvTUoD8v81CwVG6YldcLz 6O4UNJzw/MzoehXsY7Mm L85ETGE+tcdV9jKXGcjf9f3Db835MN9YqYa3TwAuNBHUwNYA6Cx9oNDRQBiujmQxGDq6MwwKxzh+ySwz BJjmQnwxOmRhYlfv61XA MhC60J9AqMOh9ec4beeyVTWRy0ueavajtEhWK0UcVVvYeQxnZta3poMdVP+vsPPHuxu40mJUbQfo6CoY 32JG0ZOw3Hb85GJtoX6i /322+XW09+IeNhrzHeUZv9Q6sk/5DdKsghjHlQY9E4wgYJWe6/ZYzXT9/IdZozo1t6Mel1hJndi3Qjxx HuykfM0S0/We+DJ/Uevi PNqo6v09TnM7gjjnqhBm++7196qwg37OwZ7Xu3XSnGkpRxB9rvi1ural/jQxTs70NUISB4Os5Q76dISn ZHRhW8MBbO6DHrrD9uXx CSNWjcDxgqYKUWIJ9KEelIl+UnW6vooKjmoG1WqpaQkpieEBOTdi7IFSDdrH2xSepAncBsDard1L2Wxi LcNw1MCMo58RJsC69zGX bjHvjl2nsafFO11aFOsS1GD1axjjn4NtUvnDOmb0XsqnVbZRfNGkIoYuxxj67kvHejPj2/k70ZuoGzzJ m0y0b1rbshbXWUyCfKZS vi49LDMokuyZQIz5jKm5BA6uO3881wr0HEgvSEW01e24LeW8uIq170hPGFVTRBGSk3JmcO3CeLIcQyzG wzodcFckdcaiNcCRC+ei HuUniB7LifWV3JLV9kPNg4JZ+/1sa+26oeLbT4HeUNdC5S+NP5IwKDvM6AwpZyqjqJqftCP8SeR5eUZA QSrZdQBgJ9V+aMZ6113T vw+cG8l3xQUuIK9x6hcKHOl0EUb9mT6TPgC95rt5+6UoRqjWJ6fPGtgvnSGSNw3rup5csHcrXcI5+KqU KGCV/mTp9ldwkn8gCmSX WdLWkcL4rJmxKivYMniELgyA5sK9wuCzMUcDH0ivOlc0h3fNlwhQL7UnfzgEvQnOeMwG7k1sjr7I14p2 pWdbL1mKWeLEU8yElCuX EYYD8B+wUD0+7SN2WfyQbgD9mnHqHNNDQyXn/Ja89IO/a/h8kPxmvP4lcLu7y+FT0htwW0NQZpet1gA2 S2EWPtTw4f7XuDY6Y3SO +B8k242dZFUlVXWscDmV9f///6fbqZH1CUYR+Z0D1ogLnPct/gnRHgWEemWofmLhGc8i5CBIvonbgHqF z5ysZULmVG56xa+4j7qF 4ZxaUSlpwALlq1Lc7kpFKEsSnkj6MRhXfSZTU9PxRwjhXjkZBi5Z2tu3qkOAnmVoUML8G0mHI7kdLMm3 Ra3McYktoJJnb660BUnU 2hhOK031aOUCmKdT16dzhLnTOoD7PxZG0db4lqtObUn8Z+qyGjIBxSqfYJ7g6T6mevDOcy46BZ+gxVr3 YaAPu3j49AwK63IE4DI7 Cy0TJMGhkMSkh2FmcXQnn2Z4sL8CCuenzngwaDcKN+K4f3m8Mxs3HMGIQAnDDlMxOX2qIuUElDwIVFn8 7mms0Vwl4zJrnQoOicx7 wCAOHNRB5MKBPfSDyUKvYQTAh+OtsmCVHEYpgDAWsYPep5s6TyJREQneNlLIYZbUUtsx4FHzFMLX8U7Y Oi8aXRSyEMJdpICPjgSU ZbUDW00YXitLZPdPQZiRh9KGtoxmFmoahDFLSV4jFSsCQKDqkjck6qwWbubG+hNN8f3OG5w8G+Ia0D/M Gek3VcP05kEl5H6Sb1jE EYJy9RzoI/ntuzSbgSdW5R94InwaibE5llhHQgzL+4f+qxFK05+VKxu5zqgJROiLi4uTlgmzKDrF+sbx TH5iFSn8EqAUnbq6dtCV xnwMpl07qqm7hUnMbz8h6BOl7SAYRq/cz5Vs7C+UO21wGfVZ1BadBs0m+WGZZcnqQ9IrUPGMj74+xpMn VEAyGISMviFgWfJu972r uBoVBfAnLfw9kDmll8nSTfHOAIpT3xMzs/FhO9vSigYxtV+eFkkg4kWisJgw3nurRUHnxk8//770hQYH 1EZ05SFynmKLQGiQvB/G h0p8jQ1y7iG4GRbkFRsnYV66/xmrYRE97FqjJwg92r1noG7tEZEdHsUbjGv49YpcL11sRslBf+X7YGJN jjgVDFyzjnxi7NuVNj2F qlrCwHvyoPLeMfT1nH+2fXrqFvto8/dWgspBmEmOFKgQGRoARq3TTT+L9CpoUhWamF1VgcDigQNWnIeY BCGYRjm+oEFCMMwDOMTL PGKxjIKm4QTubLTf/sKHpXMAWeLK2zNPAkQMD5ZOcYfUZoyPLExAKJhqT+jTSNXboK3nzUHhoNX5cYhG BiGYRifYAHCMAzD+AQLE AJyCLKuXBHvNDGtTeBQhHFWkpSHFyPQpeQVH2JXDHbNGSkOOUpKERnwAbcZRKAwZC5tXrIzOFY5OCrYq hQGscz7TmKnuFXE+fn5k b+/q8doD4HVEvaMopjpxHDEnUYFtuBMhhcJb7fYDocN8f7zcdRxypu3yhyg3eUQK7ywN6jvo48fql2L1 9xzD/Ri2uShGhriNVqaI EBnzqj83JL+/FvhR7mpLphEzpFzdCpe9Ya9WJyHCGH3StjXgu0dLe24BHRzh0qjuQh88rGZ+bdq1Yp+/ uvofnct22+ob7txc172Z y6254972oqlVl3o300/LphMmx4oIS3u1egzye9qDHtV8ly2K2nFeXcjD4lO5aB4zJuXCz8X4+7I4fz/N FFB1JCIcFqQPiJYKhUhT YpQoUKFqG/shzv1S1fA3cjOo2XbeRYp44YBpy+lrsmbzCFoAGqCUUYChaRk75LXB7td2Xpyw7dKlkctj WEOBViCzoheHk3VKs9QS QuGHZ4fjWCNZbQ2Vt8BR9peR3tZYEusxgyEXDqJUy+mW2+3LJrVvoFq1pLLR1Xtd/azic7gxNyLN+kTM 8aAJKO6+/btjX79+hm9e tHsmI60sCEZ4SZFrd4DclUnITS69+ap0L+DpKo1vk0z1u6514MowjQ1JxkSQHIQqAty668/j5GHMY6dD DDQEIJYOoRPnjypUuSkc EFCdi5nNZ0uG34ImkNiYMqbumXzPZqUHh24LNn9S9+VX3/7EmExGes4rmAX5GhIHljzjofO2anh5nyZ8 Xw5f2NKaATziHh2XqF0a fvs7+g429vrPjnLf4/6HbNMMPlQktpzT7qGTHsteRJlxeDDbfn777cLnzwZEP9fpojJEhdoDjzd4bQiZ BkFqkCmNcClCkvNAn0tD so4Hgdp4zuZ11BkX6VyfmGJBHI1zx1uhNhKtYUoP2uK/Si/5mgcSFEfE8/CcPx2pJ4JPgngX5d/T58+K jN2iFsWj7iRe1IPbMMd8 aoy/R270YAM5BS7GfZPSAywFA++JY7CUgNBIYIq4MX0C+RM83ioCp2q+LHHHlMpcvLXX3/JufyB6rR83 Ebtx2xExcrohlazijUjf l/Jga8VgAkNKKdSxk54bGU/1mXOSlULQ4Owmx/1k08+UTEmlSpVuurhIPzLL7+rwKQKeAHcym0VNH+PK 27XG912N5gi43NHYisvF ExVwS4pYQ3OE8I32Hc5fLukBUNSha9eUJ8//NBwx7u2HmKVZblKgrsBItUhB6+oFlODRkXS1dv33AQDY dYiErsxFanCiLu2APM6m ufJW059X2WSmTxnTppTNwBY9wRKo4L91HBcTDoaNS10grKeAi7FHJhvf1aGLlNVKzUvgG+b5pOoi3o7D kgw9hatH4VEVV5Bbetfy HX+gpSatPHisPk2qryBcoVFv8S9n7256a1aRr90v0K98Bz8UALwDOfjH9e6U//8c+SOrYSVi654ZOxb9 2+/GPulrzn7ilcY18ofS gylWwmX0WLBHeW2zRrqt//2hcbxc7SQLfrf1eZmIyyuYMZwbKJjjBczfucHcbJQ4IzRqufahwVzgZUeN ZtAncDtXwZbxLujExQ86 ETr9RP7hVltyN/ZdFSj6Wo719uS0N+++btq3cwGbZ7dgMGmxqnfkzMiIgocmoHdKqUcXBpvuOMhuhDh6 oJW7VNiWWxGz10WfMFgV QeNBc/R2sVLjtETdYTcetBA/O9//2Dp3FWtRmy7/O4ZNS1xD2WkNq/OnUxdJYznfNNj4Pfd89RVLYpXV aGP5uYsu4pvaa7++KGxd WvY3GyPPyGg5jawjDnu10qAb2Rwr57lC2cKlblREOqFO7UoHQvgvZo4pxJdeMypsAz6ZonYtREsyd94D vDDR5IOKS+LT2UxS8zWL vCQ2evJqpH0vGGPdswM5YYMz1E3r6WnJPHeI+7/+kjpFJp1eH/73tjCmUVDFnB9//66KnIJ8g8ljzmkY cOMriDhFLI9FROliPcCB Ye484HuYw8nLMOdWW4/WVRP7jsWlFUYx3tbPmic2aeKn2LJRYYKlnzi0YQijSFk2d447jHQwiGVE58+z sDpBNLOUgQi29yAt966z 8uaBt060zza2ABNypZClREUquDwgRkUz/By6nWNJOEScwBEaz56ZOf7khcuKf+1PsCwFJ6T6IPitopsq 12e9/7777ftx/YE57wNI EXpqlmRKprz1TWYdfDkcyqljXOFImrYrMDQM2cFRYTYw0cxFTm6+xmqJca19bUSvi4ZOp6tsYEmKuHQF svfLxN9vZP/q9dS9GKnw tnDf2afi8083rQQTv3FtVUDjh5xXiUF13penTes7T16dVTgkwgVWSrvTvw6hLnVe+tQkPRP12pbpILg/ gw7R4XjZDjjFHIdtHQ37 jsTIKhHsP+UO13AXsLjjyORIKAGVcc0QkKWArOL9cIybm//pDdAH52QmSKnTwkb4i422oG+U+jiOG/wL wTCKGAhnGMy2nusek7kW GXS436uihAdvKuYga6elNFDS+0p44XV8v8RNu91DNz2dfSZ//zzzzKsQaWP+LwA+ku2lmWZvQxr/LTDS 1fLUDW6Qr8A/eMSsKo5g 5wxefJkl/p6CPK5Qda+/Cz6jaKRloh6uu7uHJuf7w030UysnITIR4gfWYu0y20tGQKbjlc++ecdXou+R jhUltYGgwaCyNGxAJVm5 12mHbq5dzRA0j4sVUC1H1qLuEoPHoG2GvBfBXYIqWCzvp5QvvOgpX/+5u4AMoAVF1Vj967ORVdJ54cro 9xaXf/+/VUqE+u+smXL2 vzQkJzhSoAAHA+g5UqHi7/PpXlnbbBShdBtdjCYoB6AoSyOE18LCP3VjE4bpkjb80VaJJs6WEX+QaN3h P5H93Uvt/YJI3drFPZzV ri2jeZWWm7fbPWSGXTkpKmqzBgsjEcaqLRViBRrhtGAq2mpzsqhUQnBBiVNpBISMZykkEJFfCCXJ6TXd y6lzBRLU94CM8DwzX2// AG2Cs9QD0/I0fNbDxsaXQ59bh7Xvy+SyqueTQ26tCvlUs4oCmuq3jNXgLYRRJW//WSGlSsAlDhwPe7k2 lKT0maGHqiJpjvbqWALE 20wLenJ5pz3aN169vsJq6TgCxoElzWHM/TLL7+GtK2tEE9e3lRLrAPZZbIsLWor4yz0o5T1BILX25KKb sHV/dwEYOlS6YumTErN7 lzmpaAzhVczX1fqh2sCyr+wViHho0j19w370fUC5VyFE11UGyawDDDn7NLGOvkBJgu2EsoBhyS7mJUO+ 6YNDuzASYDA7T99YTutk 2iMemXFZM+2lohMwcV9M2CWk2+zJ3ZxlMMKJscyj0Wq8gX++zBecto5AsuXpPS0bEjnlSDqpiEwJEvKo dr6PbHFPWhKuJgiFd5MD SWUX1JDsGtqLjVCMaKx0jX65Mv1Zv8m3xLaGoHcFQfq6ksROiKxmvaLwE+Md4Ieay6++knmc/ToURVjg upLt4WNkb2kf+6KcQYsu Rq6UG46UUVaEjunQ5Rt0fcMS/fuA40htYgeAxKfbELwiJFOoaQfVJL01wBayTWdWvK0RRl06eFwrrHV7 CxhW4d049FePyKJ3X/v7 BxmRLo8xtAx0PJTRPDsdWbDjoNMKhtmVV57MMKnDT/Q5chDazQWny+NUtZ5cCiqtLxtxxZRYHZtvJGru rSbfKSmHgs17QbRcGs96 9esFZg3Ls8WrTimEczcPYqAnMocUp3syogsYsatIrFcupFbcfRw0MghtCmoa2Njs6QHQhbYDcrRU19An TgC2dCtPcMOss3OgQopU 2Uf0byv2gBiALf7yxAoyyaRNZ2CY5+yH/xUdLiJzSqmo3F4MGxkfxb0089FR4kCQgQNvjv+lQ9IC2r1S u38kAqk3ao5ZwMIeLiMc Atkinson/J2C+MwALTOc1bMbhTik0ym6pS3z8vtrToFWRmfxs1sHt6AYAYSdugHJ8VSHJhPQ4EKIo7N0JTxSWN VuLU06cCCDKBANpSUxDU oqkolBlbBzoRiGNdhDU8hGg4PnsvQfOzao5A1QERCHH7yzy+A3muOnlalhPO4M7XBCbKDK4F2WNvpLKO ZKpaooWa8xB1lXFufGta StMziiIRjgzQoHvyodfQUAlZuylizSkqnZGnLfUBAaT1xEn/L7XDLqRFreivOKHuve0Wkb19j0ns1lRP 1Nu7X+/oK3Vgq6eKAogd AFYB8ruEPYPOEKw5w39r+6V4vEcKScM1IohBClOQ2CpCWhRFHyKU9Nh3HIfPLka3bUVjiAxdg2XQf4Ut GlQcaExgXtRpUoVWSmhG r0TzMmcO9/ebRusLAF5fpUPtYRWsHo9DzHTmHQhI0ph3v1Y5kbPhBgP5BdhEvbKB/CBEBYalaygMJESz 5Zm7xui0XxI1JdFjRIMS iEMq6712KeyvsBBBNMCLiZygXMmYZBeIUP2OgyrdGacazAyeprKCBmUQMAYcBY1Ml5+cpb3tBc9W6h1u bt05ne8pcJZ8TnucYLBQ ++mhjJLCIT27bUaRDj2qJkez2ROOvq37q/Yhcscf52WwcD41LeN24FtCpbH4E5by3ILR6BUndEGpzkB0 MI8mRE51UYKVaaCeroVG 2jLIFhLvarC83pxmvjfV/uuMJjOId5+9cPkt8O2u9Bd+mJtIgqbaLSfDytrRTEauiwiYW289kcISQYcW J2tnBjV6+sT2Cad5mmGK 8Q7G/n52dOwCkvr7rW5aJva2XsDGUE2JZBCoJ2q7FI3GcpT84Q/2U1b0+P3zqOGepxDyBJTjkcu3NT3/ 7xkdWbl2NrNk3F4rrJhG lOKe4sAERf3UuUjIIoGc0DA3atXUcs1OMiEtbnguWn1HwL0yE18NtS8HkK0PZxC71xRF6lgKUWak8D4r nRheZfagp4/0UzIrk1YW 6DoCLmnX0qSHToEIYuO8uvIrZHf4Vg3NVS/4JkuvbhVnhIJCFrRw03+pr22gmy52z7fYPhz6vUYgmSzz loDidafSpFducHBlhtCE E73vQ6JBX3QTGXLQJ9ChSEQ7RZoCeWkYP/M+3YmBEIdH0i0nSgCYy5PjTeTsyrlaR/y4wLqyhOTiieVZ T9rOP9kBBzIvGDtQI9Mm huutQDR1+aMHZMuBwyejMmEXW2QNhyuZ1jRSi6HO4TQVXsrpQcfKfpwqtqh1d/KrgGwYPiop2511hyKO fWn0vvMnIWAP1MTqy/+K I/3Fk/mQmC/v3ph2oxnkqJZA5OQCb57K2dEI6T/kguwghnBr3syt6BmcWUKydgR22TSB6NSvAOh0qnPb KcM0zaMosYlacwc5qrXB CbQKghszTrtHsYU6v+jm8S+xvN1pj36k89s2MIkRdyqC6Zyz2eyJhWUtfQ4GaQ1jKAyV9LDLLSeN0aSs UMHp/3jgyD4hO6m+1t4+ +23U/uy0wX9K/HIGxo5bfseWIyKnMO25xSGJHoO9x4v50BnXsfBCRKZHlSxH3rUmw9ZvnsK9gMeQRoRf oQx3FPRNSQFkasFetDjh n79+fpWMDbPqy7UPSmVRz3ZS65L3093r2xdWTbAiPhyp/hSFZJr2X34E6Btoufo6kfpm4xNNG0uHDpBK PGLdJL76cbhq2NO2sacR XJSe8YsR2pduXwH5obTq1D0cfCofJKSwJonVbIpNTw4atCDiKgCUriynDl8duX21WtUfkLlpyE64mIau O4c3R/qQZCDtAknmki98 8usTB188cmQ178kmG1VoRHOvDZT2YJE42E8wrcOc6KVqTIe+pw3jvFUL/bjU0dB2aI5je7l7PBonMiKn YRngN/iCoz/2A8R6XO/O 1BdOm4s9F9udfuiHStDzpgeExXFkdmiPlUob/cB9Q+6LZEG6/ZsZnxW0ExfK41zCEEp3nJVEVGjuZXLA EIJi7/7g7xowidwvxGnH cw/N3G3CsL9VSg4snsupOgM2OacWW0RpHiqIrNmI7B9yM96u5MwhD43EyKyHHzxgCH/FND8+/aju636M 0/HZRPYp7Auss8bRKAHy JqMLiBM+vkngIUHWn+wsGL+JeW1Afi3XVfaohFOKRJMMvd0iXuzDqfQDix2adKNo+IfaAsQOe7p35iZb aobERxJKWio1CHZinDGv idYgDAMwzA+cGAGZTcK8NsQNVyHNDbBvFIfMZGzlEKz/9Gz1CMCJ553FSXENXaMRzBfFlKK></span> </div><div>
</div><div style=text-align:center>
< /div><div><strong>Patient Name</strong>: <span class=clinicalNoteMacroWysiwyg id=[id number] macroname=PatientName spantype="macro title=#PatientName>ALYSSA PULIDO</span>
<strong>Date of :</strong> <span class=clinicalNoteMacroWysiwyg id=[id number] macroname=PatientDateOfBirth spantype=macro title=#Pa tientDateOfBirth>1950</span>
<strong>MRN:</strong> <span class=clinicalNoteMacroWysiwyg id=[id number] macroname=P atientMRN spantype=macro title=#PatientMRN>[id number]</span>< br><strong>Attending Physician:</strong> <span class=clinicalNoteMacroWysiwyg id=[id number] macroname=AttendingPhysician spantype="macro title=#AttendingPhysician>Sarah Coto (Gynecological/Onco logy)</span>
<strong>Date of Service:</strong> <span [facility]=clini [facility] id=[id number] macroname=EffectiveDate spantype=macro title=#EffectiveDate>05/10/2025</span>
<strong>Referred by:</strong> Dr. Coto

<div style="text- align:center><strong>PALLIATIVE CARE INITIAL VISIT</strong><b r>

</div><span class=clinicalNoteSectionVisible id= [id number] internalbreaksection=false originalname=Chief Comp laint recognizeconcepts=true spantype=section suppressempty=false>Chief Complaint (Palliative Care)</span>
Establish Care

<span class=clinicalNoteSectionVisible id=[id number] qa internship albreaksection=false originalname=Oncology Diagnosis recognizeconcepts=&quot ;true spantype=section suppressempty=false>Oncology Diagnosis</s nava>
Stage IV SCC of the cervix

<span class=clinicalNoteSect ionVisible id=[id number] internalbreaksection=false orig inalname=HPI recognizeconcepts=true spantype=section suppressemp ty=false>History of Present Illness (Palliative Care)</span>
This visit was provided via telemedicine with the use of real-time audio and video via [employer]. Alyssa has provided written consent to conduct this visit via telemedicine. The patient participated in this visit, noted that her home health RN was in the room however he/she did not participate in the visit. The patient is located in their home and I, Dr. Carol Branham am locat ed in [facility].

<span style=font-size:11.0pt><span style=line-height:107%><span style=font-family:Calibri",sans- serif><span style=color:black>History today was provided by chart review and patient report. Cancer diagnosis began with development of acute renal failure. Admitted to [facility] with this December 2024. Found to have cervical mass and bilateral hydronephrosis. Biopsy confirmed SCC, PET showed disease extension into uterus, bladder wall. Completed concurrent chemoradiation with immunotherapy, followed by brachytherapy. Admitted with complicated UTI earlier this month. Treatments have been through her local Oncology team and [facility]. Anticipates a follow up PET in June. [...] originalna me=Allergies recognizeconcepts=true spantype=section suppressemp ty=false>Allergies</span>
<span [facility] id=[id number] macroname=Allergies parameters=ValueIfNull:NKA spantype=macro title=#Allergies(ValueIfNull:NKA)>Cipro&l [...] will take Tylenol at times for this, 3r036xu or 5q009me. Feels that currently it is not severe [...] recognizeconcepts=true spantype=section suppressempty=false>Bowels</span>
<span style=font-family:fidel Peck serif><span style=font-size:14.7844px>Has been constipated, more loose stools now with the antibiotics. </span></span>
<span clas s=clinicalNoteSectionVisible id=[id number] internalbreaksectio n=false originalname=Dyspnea recognizeconcepts=true spantype=&qu ot;section suppressempty=false>Dyspnea</span>
<span class=&qu ot;clinicalNoteSectionVisible id=[id number] internalbreaksection="false originalname=Coping/Mood recognizeconcepts=true spantype="section suppressempty=false>Mood</span>

<span cl ass=clinicalNoteSectionVisible id=[id number] internalbreaksect ion=false originalname=Physical Exam recognizeconcepts=true span type=section suppressempty=false>Physical Exam (Palliative Care)</span >
<div style=jorp-obzvf-evqc:none>General Appearance: Patient is awake, alert and oriented, in no acute distress. Patient is dressed and well-groomed,well-nourished with no evidence of self-neglect.
HEENT: Sclerae anicteric.
Respiratory: Normal work of breathing with conversational speech.
Neuro: Alert and oriented, no facial asymmetry.
Psych: The patient is alert, attentive, and oriented. Speech is clear and fluent with good comprehension. Insight and judgment appropriate to situation.
</div><div style=dcdq-anetk-scfv:none><span style=font-size:11pt><span style=font-family:fely Pecks-serif&qu ot;>
Comments on Pertinent [...] the guidance of her local Oncologist and [facility]. Please see below.

<span class=clinicalNoteSectionVisible" id=[id number] internalbreaksection=false [...] spantype=macro title="#MyRole>Physician</span>
<span class=clinicalNoteMacroWysiwyg" id=[id number] macroname=LocationPhoneNumber spantype=macro title=#LocationPhoneNumber>[phone]</span>
<span cl ass=clinicalNoteMacroWysiw id=[id number] macroname=Locat ionFaxNumber spantype=macro title=#LocationFaxNumber>[phone]&l t;/span>

cc:<span class=clinicalNoteMacroWysiwyg id=macro _[id number] macroname=NoteRecipients spantype=macro title= #NoteRecipients>Axel Palomo MD</span>

</div>

<div><span class=eSignSignature>Electronically signed by Carol Branham MD 05/14/2025 09:56 CDT</span></div></body></html> * [facility] On[facility] Consult Note <html><head></head><body><div style=text-align:center><span class=clinicalNoteMacroHighlighted id=[id number] macroname= PracticeLetterhead spantype=macro title=#PracticeLetterhead><img src=data:image/png;base64,eTZWTx8OAjjNTIVDVGcVIbKOLVEYSGCfLXUSEEF6Uj+UAAAACXBIW OSDJK7MJ XZHqFAOPl9iSQCSqulSMGUXFWv2P39qSvFge1TtFfnkpRHIWZCNJH91hNKxs8G0IUWrC4bjWZFmk11dN WfgKZWPXH7xKDEUPFbpG UyuMLH3EqVudajlCKSoCl9cYNp4fI9inUX6VUG1pVdrgne8LPIoEH7vOYnlffkhKZIlLuBkpCh9hOW7g d4yAQVaCpCrBS9EJZJcq fHdPv6jGCYbONKwCykkEGS4NOY7QQN0SLJkGFMiEbD6HnTaLXKmAvNeOiYpFQWpGBBmVIFzByK9tzGoE tBJUzV0rWbgrxioUPQ6P rq1oES4Ah29f4mnfwZar6CcYbI3VCicMNWhUaAyadKzLSS9qpNbfF4kcbDrUjM1hyYkJfQvc7JdgRV7c T6aWKQwPqhzEb89oW1gG mC6yNyevfw9aRU6Bbj5wQZ2Mf2gge0pFN4yWQ3tv53ijIKxDvEiSA9yLMzwaL7fZwJqKTIwnQXzLl6sj EEgjY2lvjqzSPJyGIulh DRwqNDyPS6uBqNijO5sjwQ5uWlxtE6mhL2vDPFaePCtMd4lwnInPVBrLiWkK99pV7Uvo8Umb0vouR9uV wWtAhY7zVvuznh2kAZFE P1qnXU4kDkhH74jCyTko4YkGeAeiS12PHJsAB7iP04dLrOjuU1zqmA9p2XNgzO6Ewt2cWB9Im3wsv9cI J0uJK7ei58fdPLbKjPlL P6gOUssWU9FVWGqpIArMOE0FZ45CzVkoG6uQvUlTEF1v9KLe52fKIKSTY4lNHEFsK78b0Lha2TpXcFsM EWdEFVnpQ50v2FlUJOdg Z5kDyWgLPJ6XXKidJS0NbRdZtQiMDPfSltFLSS8Dae3RoQiFAC9SPAvSAbfoXeUv2OuZuxIGWObRNEdA NSuSLNtQEZ2ULRzIqKsB MN7HeIrXkG9tBA6SPA4OLDjvPQZOGHkZORvAQCnXFDxDZP3ZMXeMiIsUNF7DaOhEqFxScbqr2GdHLP4A qffVGyxT0EvIwJehZzgu W9msQ3hJdCguV3pRT9iWF3vTaWrkO3yCU94ED9zpSVmP3FJVI7nkQ8iJtmgDEt5QYRcAwHhYF6rJZHnV CQ6YucwLFd7GA14IhS5S YLwFxCiIDLmXLjzxV8NQcSmW0BfNL02OUT9IdbpyH1nkCD6HDYhJyLaMEUsVueiYi70XXZ6SGx5VfojU RQdPzDjO2X7OOVeGmV6g VLAUNvHbcvxnO5sxAGkJ0SeFR79KNT1WvrcjW8jcFK6PFNuEkSxNQWaVdmtJa71MUG0ZNp6KpmfINInT kXzT5X9NLTqKr7pCRUbe 8Mle9iekOjUp5D7vEAyaNPdU6LjqC5psz2oXLNtZgfJLUi+FSkcTYR1pZp+wP0hSgFvBZp2RxF4J8E9E YAcFHGvREI5BHHoCyyNY VL9MeSQSzZfUHtqqmHuCyclVlM5X3NqWctOPEq+BYiupIpxfS8keE8mOwRyR4QfGL78XH9zONU2k3IeC lL3wL1bTB23KJhryK6vv Y5dYFKiPocMXYB+TYgmVLR1eHhnl5KXfoR2ZIC6tW7oTWPpadLorRKpFoCsaTJ2wGrbfxQ3MA3xEXiIL KA6nPGmdYzeMxenVmTiI VN6RSC1JSHuDDBaMF14GKt5IXTfOSubZKTlPAP3NbOhc4GGtnU5l6ygwd7eUvSxRl3jXB6iV6YuEBwxB CmzCW8tPbusEAGxk2CJy lA1o29brHhsucUWI5PnpH2qHBPoHcHvOWjpmQ8gtJ6oHSDjJeRsDL5gC5bhiZ9anOorEj1rVC8pXMY3B 3BgNqR5H1coeW6DYrjxf 3Rvcnk+WYynhiUlFmVpg3OknFA2vC2hEcR3P6PfCvxHGWG+JWaswZa1vFKnPYLjHjI6Z9ivCZElAFZbR L9yUBTeYz6+tuN0PIMWI yBJREFUeJztnXVgFEcXwN/K+kR9xOQ7LPYxycJDWo/zFIVyeSzvZMXoVrrbnv6UGHzxRVUxMVwbW3um/ RP3em1EcazhVtNPfiZ/u b11k83Nrc0+dEzkXxPaJBTgSEdfANRawKs2BIyRAeTsoCRtDNbHaUELhGZmEXmjMXsvJRHWjeJAD5UJz BqwwsJgMKUGrLAwGEypg S7pAmD+Z8ZAhGp/vzgIkDaV6qLYsfCLg5fADL1rwj11LRkcwQVBg/rudV7rQP4BAwCg8ckVMj9x5ks6T MNwLIMQAiBIiqJomiTJx k0a/qNvNzDuLLyJNYL8sQeS68b0a+bdnWhJM7C4CQx4AvIT9eIThw9DRJPsWGBGwXoVbGgL3bbXJziiS by5uGNGLmru4oXZVPzxV y3F26CJEc72H0ORfuxYmz6x62aaWkUzhjKL5eKTRHHBFb6KFzMlZMvOoYOCg+LEEumob7+Z+vRRRV8sS JcHNpmZb4Ts+iHzI5Oly 0KBr3hf+8ef/LnW4VaMxMRsfyTUBDHlNLAPCQRzhkg44/oLf/5BkMSEiRPH//QMiEQaB5qNZprnrqd+9 bpXj+5mdWwuSz4z44Q2C oLZ86HRQIOFbMqwGRc0oHlFUYk8pvV9zP30tv7HlnQ3N0BMW/UmbFzn42//U42xMBfTmT4F2ceVrzUbn soPQKIjo5ncug60feeMF j926qS/v/5jUQcrngNLDAgbEOJiYV4Ftg5sBFj7rgZixJirlf4ejsMqzY+/v7//oZGzig7tHU+48+jFq 0wwm0SBphk8kTyhD+zet nvJnEaNm/imjKiyWiKGadriXayKJXOpi5rUfR4CEjC3/WQGCc0D+m0K27LWAeAeKkvPx8QLd8tbhxD5A rZCYTAYDAYDQRAkSRIAH HdbMIz7FLiZIjaXBw7DX9qDE36vGWHz4cRAv/jdcYGqMnkunT2KBty4lASxzoe+zadO6WpAOVcYRLEkU PtnFN5BCsEFQgVPIauoZ 8JIoLn6h+3EMf9+pGwH7tela45syIVauf6Co3Am0VqLtcsAi9Up73X/llIrCh0aRPcrYDfzzRd4/5men n5TuJgn7zWm+1WrtvWCO 5erXpOkKYNWm/+TUsjCYY8ebm48/+O4O6nKnq7LXGH5WRefAaGmo58Co0U5xpXMShEDetw4+PfAEd65o rhtUzrdXpVOOXFrCxt5E yh5gxcFDNJv/o7nuGZ8D5dac2742lQSPvyQGYlGIz5qnhr5kq01isJKbYjnDDDyDZBKV4UtW8gE9Gysj WdOnXocEUGLxEHNWrTuO 6wir9TLiYfr5uH2vIEvNqp6imNz4IL8i287icVO0RnzjVi8iZm82CF8mg86l+Su4JCdi/9+ShQ82vn64 g821q2Vd3WueMVul8/ft h1/mWi4qC89xMvkNJbUGkhfZIlF+/i6yHt8vpjcx9jFmnRAUmkpdwfUlKjO1uxepyF3KSzhbLJBQMi8q OStOnRZcejshRTNpXTd5 QzDH+GP+o4e6+wq8fNQOykbiDgOubM6jZ0jWe6Aria61lmDcdjBn6oP0Xg4geZo4S1oEd6tdEaRykRo8 S58mzmSC2HRRQXHydavH QKf1BsMdTEiN+7SxYsFicXHx/s5wNah9MpqTTcsJw7kFPy63mxZ7viJwesWVvhDMpdv04XhmztiEBJpL fqvGB6PrIZtVLx428IGR Fwxr26L3BGzEqF3noCBg3q1l4Td3ev8GwjM+W+AFRYGIYS+GTmqnI+mr5qyoM0Lgv+X5IyYRyAZ4QYMi wuHtY1HNnC9nHkGz5+nt 9v7Z0dipP8ux6LShKMsXgrb634iD+qPexhpPaFPfjQ02PheJb2qGNoghBhQ+a+Oe3dBCWSqHin5pzdXc kDeXf880Z8EaKLdWBvgt GTvui2nmF5Lay0qMQiYb3vIPHEKXoYPmKt8FCGdTpMVtLp459+HRz9+OFMHHr5uV6ZL6rk7EfTdHYRv4 F9E353MWheF7R62F0EOO NIRPsGHGjH24ZYTW33wecgX7fnUagsCyEBaUiKbk67qgw4cisbBfA84UmJ4PzaXjl6Wwq8aTrAs2q6go 8hrCQ4aXRF82fqNh8hFF cw3XhealvNqZKM/BZDUVCq43Dvfd39az44NpUMLrO1wFHpV5zvyK/4gvV4/p84pVCLVPw5Iw3IlT+9Iq 1FH/0P60IFfBJUd1xqYW Mxmx081l6/nj1i/BPWEROuThRrnGCPXnLEd2PJcz5Pyn19TjQ/R/MLBCgsDqSmpDMPUq1+xQGwq9Hj00 yVhWzqBcoOBEnm5r5fZ+ /WrwDfDrvl5h8r9NxKRmVgjDzzGEk8HYCClZf8m2HD3/krma67sM6+1KSCCYaR5rBMemOGHv4wHYkv8a iQUQuMVnF3l6QG2SHMgM RX35WGoCOkHrghHbYNOSVypMz23Dz7+/mGo5iKDwgn5kegipUMqnj5nj67XpQ9VTp2+8Zte417MFuPut nbCZKFGI+S4YUXAHIMeZ kGSvWbARQss8CBGb7uVRqf2j8u8gUx5tJsfNAVuyJJOfga3bl71CfvcGh7zuc6xomq7nZboXXgsyChdG jnPbt6ojXI+vWCFhQGKo kiStHdwBACTHzFB/KNvIvXP7hl+dgELO5psdh3OMtpnsBcXrvVMAAwrWJlE8WEa7yRS0vCPgtXiykuZ4 BAEIARAAAGERqPRaNSqP DDdVlbLBEI0gmUcEJkCnPYMzssYxoXL6y0T3xy+4IpJWVv4oTMvkkFj2OJahYbwj4gOhUMvPfoRtI/wR ZDCPiq1GwpfLrzNaSXca 0AwF16i+rKss3vkXc8iKGbvfI2Gfc9a8sMrNpaBGOu3EnkvgDzNncjtiyFnCeEsYwRNWDnpzie4xsq31 ceI88nqEDHKO3Inhb5Yf UqlD+4/pYggUkar6Pq8h11tGxng5gzIIBMBmQZXrFsROBFBpCId/BD1wSj7gzPYVnggKQXPg1gKGX4SU WnpZ0+zQk2p5H0vx7Nzi skba5PZgo/blOdbkRJay4gLApidqSgeg/AIKl/Bf+Y7eGMsDYGoCNJS51q9M0HlvA89g/y5e+Y6Ak9oI +fwO16ffgFFOR7x8l942 RxMxdKGHQEVfmkfOaRb1txd1rm59ITlb7hkAzpAQkM4sRBJ0opJPQWSbGKpgitTlVnZV61+vhzLpqalx vfsto6r5tS+/S/jXpbxK tOle/xdCc0qCAiw0UekE1hMddyjyVeJTUfo3rt6NN6/SE2FH9vN1/OUBBqZqCHENUb0EFAH662pSAt53 oYtQ1oQeeeWpSgBliMVl nW/Uz36/V2tra31496/f/ZsyJmzi+mVV811jdc42AcVEt1j5XxVcRnTurkD4CtlEnb/jrN3IJXUQT+io 8t6+lLp8bMmeKqelawR9 pndt41J1ijc3V7++ifFU3eY0wK9JDHECX6HuLU9fb7ZNvKErIUGsXfY/thZFaaaN2v+fq5EDUb71FBmo iJfRgpcHZymTZuBEGIRQ zcn2TzUHMfus5jiL7c8LssxTg3gy/cr+/c46TQRNLp/MzlVzIQd96/DNW2sX0L5hySUGgp921UCIwgOX 4rEELMqXWUfP95IoVXms P6ePtx3u+nvoqfs4zpGo4kP0tCX2f2KfptBPU3WcdvgDNrINea1hMnyg4WarqhF5+uymcWKtkTPGiG1V im62bWr3+2ky0Uh1MOp0 gPUYN6GK9toyr4yKP0XHHWAFzDeCAIAuvrOZhQsBNNugVndVc7ikNkMzl25gjczWJaVHUISnCCySqwQA E2TB/wvDPuqb9YVw1nIo o7C0HmpVxe5O21i4z0bF/VbVRFJpaXwOhl6RZw13WpKjpgDfAsj9ip3i5Eb0xePqBnLNfiMkq4uKev0u FV5Ce313ivOgu72gPhYb Dg7hJojPtmQ/OVy/581bh24oUntywzmFf3FhcdRM4tu760XeQvuNXE/U7MmYAFlugr2xz7rioCSC/62f ziYk2uV45cDg/0NRtbAw reVXnhK317dBLsVA7nQMswwm9F3V0NHVJ4zMx1Pd1fG3Ci0lbS984vAe8aIRCOxag9uGPdElhLtaD+UW ywnRs2cINt98nii+gxZ8 frN1c7oUmbjC2e8EYWSMWNl/mBahEYRQaNSz7x4x8uyoJkZy6vjYEUdo7K+9b9Xw4UBTL6Qpyzdo5Tor Oxb5JnhMOYF+58I7IMQe XZbNhxjCOBsCvhWMskR3BbHz8hrRZO8fiSoUVRESeBjjV+CcOlqa7hFfzvXyrcsx+2UkgvURXa0Rzwa+ MlN4PdGx2wYyKHU/wsEZ FxgE1mq3FN5zcuRjS8KHT3mQuCo9U//BMP6qfMAXavevetamYtww3FuAalHMRCqBIKxoFsWhYMRCLp2A fQwwIuo11S0hV7ATtGCq 0uXbd+2onUuHuI1iGgfnqArS7kCwNQZ1LtAWhAwNiXGe6BJi2Jr2ygpqiaZAAfJH2Rh1JYyDLgEAwy7I 0UPW32Miu0+N3rWzWR2M j7oH/lwmMWDU0yl198eNAx7yZiQcHtnCJTWAjGR0Ol3Vt1+IrF2FxjDr7TVgDZa62f9H1rn7ca62y5NV n7013LNFuxsw1WH5uaAl l+Xx0l2ByX38rD+I7AwGYxBHGG3WamqubVajoUjE+2XQXcysWpGAOFmiu3+Dlk8BWTZDDp3CiR31q/3B F67yYcFXzuGpkZ10TJDf oDb0ykahiUQXPnVno3B0bPFc89Cf1PECsCfVjG5DKJomX1zgDuC3Ery4WIfIihymB3y1mWkP+ogq4Pqr lB66lvGUgfNu0prBYihu BI7+3pd+2uEePeyw97KUKkxbaVVJn3AbEpBW9lIBLOpo59sdORcWt5ITUNBqCYOC/Snev8FUobOCiKxU ty7fe/MwZLUccv8qg8An 5QbfQ5KQFzgiJK/9XPBlcSGEr67hVDdJjS6bPfid+InsCMLwX3tqAD04erR4+hh5SDglqMwxMdOLcG0p 5zWihQWwd6mo/b0QN+Nz mMZQiyR/IEoMvIa1OYttqeCyVGwUbfF0J2bku21luPNjh2EhtrNzie1NkUCbff7F4SJMn4Jt182N/9Kj NG4f+8+xfVNTT3jRKiDO ojE950LkzCM64jhujIalHTHuEtBDpt1y2uQXeCDI/pg49RSmuaJp67w8p3vfCJkgSwiRCMbCyFi6qTsN IeEYhEiaLEILZyvCLvuv BkBdsqqPtJCcXKJzxyQobUMybPmn2vdHeuz2Jjwel8lA50jaJeo3xIA6aHkySlBBt9s7TpYR3MWYcVnT fPCGz4nbJpPvVC1Qd2Jf PIAr8C7arK2c2nriNnz4b/3Tdr6AmOe7LiBUAAGavKTLA6m+uIcLIbzvdcOwlmVWsStkX1Llmd1yAAaY bfnPQwKZFXqMQODr8EJh GnV760hNLEhV2UzJ3gvHT7JrIH+PKYBuH8eUliplqtWNcIqFvmOQDTab5rprVjDGKkUpkLoqm6rEQKAG 8W2Eq67P7JH/yz6q/E2a EzxiAG3TdrwSbrP8uU5iAeQryFI97c6/7U3b2H9vhKFCXZhmR7A9cS+HqTENZAeRCZwOHZbBZxxw9UXD dyH28LLBxs55yMCvAggR eOSQFfHwsG2on4obzkN4Q8eiiuhFXQPBXXFkjN8Fs0BJfJTRC1WAWXMEVuoZV2IzPtBtjJ5BXr8S8wc0 cTysbzKFRe3OTOQqUvUW DKPf4Kc5Hmv7FtMhkoSaRRzztBltr7oMZepXvjl1w5jYpwRWCpq5Vi2SwUJDM127EkYN25HKlwOhf8Hl jcJczNS+fPyLONZcpWK+ jnrvmSZYRjAN1MzUNJLUdCtcJpfatLW96ZKX6U0556EO9p2KU/j62++spfHSq0zMNqgcwJjhpcQiRBMS XqThcQWD3v53Gsqkh1xF cdASYnzp7TcnKh9O72HMdMVPdXUBodce8BNwVoXAMKsA3fhffzxreZO40niJ9gZHZ6ejtTdJUlauzU0V /OQMvTtnQCl4KiWZj0Ab 2KMa59pJp06ObWunbUM+ed+T8pU38j3d/B34IZ7rQ6Px5ESOR/PkTuWcas/Enw8t92C465fKY+izx4jh QNoYb9jhmgezIZXItdfc XJjSk9mWI0dDpLlJzudA1o32ed7kwyNEaOoCzyMKzxI4WpxMDKe+OBwSlqDciGKHBdAe8DQ8V6ge74VV LirRowW12CWXBjGyPmYX L4BkHwYCH62x43COGOmquH28Mx4b0dx2O1XTWNxdYUS/npB5IwqZ8bXYHFhjlkrGvKQpxw3YFV6XXLwP rXz0kEbOB33e+Pp+ROkV C7gkWYQyhUJo8EmMA5kTPO/UH7BZh3Bq4OXdwx6PAsIWvLxEBOe3xcxhT/5ckhFx3ImUBXKtdsz2g9gu 75rnBsbKUcoMLx100JP0 +Ia7OZUrjpsSPWx+naTGWr9K6RS1+4u7bTl7KSUpU2PHTS0zBPj6tQKy56uVa/ZpEF2DPLhiRBTRECc2 kaKDjq7WxabIWHOVV3Yo Bernabe/Zq1rdl/JIFQbPRjtVpPUJZmr7//4mWRKw8VOdFm3e34X0DrZi5j7ihVjaGJOlex/dw28QQ0ukuyo B9YkRCJVt8LJ055bpVlm 86ClZqhU3U6xTF+G2xtxVlAOXG/HhKqgxabzcjxBg1HEtXctTEsFhJylY78a8zPrRkba4XYzyLlqDtfr 2Upa5Vj/7TnW2cVYYTRE UASCNA/BJjNElXMn9TUeH1fjR1KFbxhldXhrldDZtXARhZcGHV3+Php6Uy21f67G19XhR8QkRv+cm7Kv RqyYp2mhl3aK2v7qVOC3 ojXIAtgj581x+Q3dqMvM4g/Jligd3jEoSgaqo2wSOi5iRfSEB1jTDNVYDMPFdU3i6HiNIYjs6HJp9qcX aEPF5ACoVanRekdCV36T r83YjWR5f8MddSuKi/2P1r1dtXbxSs2y5xrZXPdR279vDg0SoPp50iNdugvnOxS07rRy5i/oYhEonbtg 2Mg7o2ab7i3IwMlDyxtG NSoE4xrIO2On93KQvpTSqVm3LE111A7x/DD6NMuU6xeikxY9Fm/254IVMnQIm9Eaei3lZ1U6tUUNrp7c p3/Q1gYAHqmlYBXouU2a xlwXshPnvUa9Fpe8sp1fkhriOszbRoCS2vRQAYZkiR9xTsLfokr889d75whDQV1/ijZagIRZM6WIqYWN JWii0LkkwJk7Y9PPgtep 8r18+DVZH650xIikYoPVLFnQtZxuPDaWMc3vyB4156AFYffI0kb7bRb9C4bq3OgdPPfT4HMTDwDcGolm RnppEisTktiMlJGjxu/8 8/dPr6+RO98oKIHE4362bddzNqHnhH07+pd5TmmOMzsFfiis0mtetGu6QZ3J5MieJQJDS2wa8QrwITPa N+p0PcumeaAmbQV8732Z Ay7xNWB1eThs6GDnapgf8AiIGl49TPswJVplL86nOp78rBz1svOJGdFK9ZYRTZlowbCcSbz/njypZOMR k3L5N+Nn/S15XKzabfha TYumFUQy8Im0ObgkinMTLPiXJ21/PAT1SQQ7cKAEeJRa1uDPAB88Bhy5J711DJnx6z0eD5iaPYmNiPcP Ne8ay+tWvVhEwwRksjlb 9MrOedrrIgbE6b5pf40Vaw2wcazL8j7pEUdqbRBN1OHciI53UvrTpmKBwAIeR4bp8aGpIy3PQQvurU3q YAPhEHCoYJoFfTB5Cax0 Q96e8jsezxSmfmfvRpk1Xlbw2Zj0omWPHnXDujCGq4qQrLHAVBq6v7drl6ZCSd+WRtkyvbeW9GnVUMyM 9WqDDG9vmOT25mY+z7pd cKKpboh3+ZOoBKpVcGjgbtjJ28wI7x/wYmjaib6NHmT8lNq0XA4h1Y44abbjRSlA43QX5/CWsCUBrDCw kBiQgJBkpxYqtFpxBWr+ 6TXxGd3KYkj3endiApCgcUEhmZ7CcEGGtBfJ8aKl1aDV51tZ0U73/sxjr//NQZWehHlhetCAblag3jIL DEcO1HdjhEBixJk+O7Fc 8raTBA5hJi+0/E2kopbCP7pRzRlwFfnjTS+BW9LONBRvfZmUirHdlgaMCBIe4KEmL6gBsWDNLZc0Cg2q J7oYvVmDBLQWWrvUTWIi oWPKnRze3Q0WCCXNOcJj+sn00dcFmwKUxanVaix9xRZNoP3/XfFmTnx5bBLhgE1nzGXm1R7Ns6PiIH98 k5FGZXYbCGMPSGl6szv0 QTHcazRaDQaGIM+6zjNfpYTHMtv0Am3tOtj62bBjVVNBmMODGFCQ4Jxvv1yVEzb3BQ1WmOejqWbEdUGw E0fWIYMBHaPLc7WjeCUc lnIHJvN2hzTFeYKN7QN23cg7fbjMKGXhAyc6Iz2Ffv+alvUtr8E3IM/TtPonhpz8Q0vXOIMSjX0SgJl3 t52/yPvqXhLI7XVoGiRN uRJZaKiXUDkYQggJfqKxdsbHnSAcPj2XmToqPEP2Ljow9qdAHw9f6CQw9WS+HkVZCuzGbOQZZs0B+0hj zILSmmxzcNxzKJpBw6UB UTAQAIRCRmquNfzybT8lgynGXIV5XNJNqRSlkYZlMvanhx9SbrZbySocvdgKHrEzmMhXP7b1061y9hct JxzAqrrMhUkywBBACAAA gspuZTYFCqulSQbRKMwWnj6C+sfKOaQio6BmjBfHN12M/cgnYaoXkfFckijfpc1/NPMeXshPkrND09eU hrfsV80+QLesZ0LVwKiN v7tUV92J1vaixzAeiHrYhBonm87K/kYZUkmOvM7sPJEq6fCXwFnIWI/Xj3yxzd4wq4gvDIkx0iEOziuW YWMcZJZPrtGnDWy3ZPm8 ANtzg6VCtvFG5IoNMCbV3h5XRu0UZk6vtz8BrY1EPnqYDBcIiO5mJCvrg4bzqnk7Akz4cfVNLwvW+tHC ATGpxHqHAWIpcCyYNHGA VQFMVtaD3fddsLtTHqXeEHpnKaZZZNqTHxduHv8L1uMcvOWtmI2kqzqwdBYnsvq95eUo1fFuGGWTNDge SE9O2nXZholiDHILshe1 FgKKKsROdxHcfkn1e1LNXW2FVu7z5sLl9IiNtE60fbC/LpJNkfBERG0qNSX8efk0CkUuw9XXoULiMrEG AAGPVGjrsTGjrkdqmscD CqfuzPqJD2BoPlDA4xTD8eCvBUpxI7zmn7q87gJ9+/SosAq+pTqo8tMS24W/aAyREuLcxBa4S4PtnJj6 SZakiY4/XtaEgEAcAIhH Z5oqUGFTQI5BmV/S31g/u1xyYMPaBlRii7u1Uds1Dy1gtRWvMhCWJfPriWg9uDSQ2ofpOUPUD61USGXH ehJK3FQyHLvxbq9/Rw7Z 7e8g3+hFadZ0meyAc29rrF1yNtUa1G8m7zMDPErrlc9vTBav13+FaPXAfu++WgVVIYmMMuCj5U08BaR+ qSEey58IDK+2jY3dRhBb +U9e/VEAqEg+fY420m2y5dOIkIdxz2wAjVlIEK/S4flPq2ujUTj25MVrBQhl4PJqkUaNprZdJPdUFYd1 WpmzbFoZH1qhbAN1hiJI eic7sj7sZTrPw60LKTO3ysUeUQ+KlP84deqz8Be8RV6Wem/0yPl6avKkGuVGQho1ziAVYKoLR/Vh8EtL OaHzQOtph6bUhUguair7 bErKSYBSL8FDqz4DhTZlFe94dj6t1r14GQHJefkHdtQIRgHgWwJ3xk06+hbz75IsoN5tUWPQwcbushCP uIcT/9pe/jkqm1geJ70p 88dAEmcKDEGMLpEZvNk4ynXHLIqAurEZUvw+2TkrlbOkHdhJlc29kWKH8J1JQaDQRYdb9Du/krx3oTQS DKPLWHmYpXKV92pGY97+ GY68gxZgeml4O5dDIdzclGgtW6cTfsgc7tEzy2fHwdMsF5+43Rsu+iP31RUjvookwz1Blm8/k8zNkjDJ hwKCoWYb24UUnYon+Z+m H16NSdPKREMYy8YVH9VDzRv+40ASxzKtd8VeKNGMDGTRSs5QKLHJphoXpJD1ePUZIUEXeU//fSmv70aP JbAfpr0RB/IhRZOnfv6M K3cVW4sN+p2aXHccv8LGjmbxdcVGoZZcWNlu3KuexzxfSOS8UZ1vY/uCxPikFCkqRykbBKsqtkQyWxAr zDH9ZIAOUTUQUviZrr9/ Jt8XRmhi2Z4hhBXCdIMtnPvz8D/i9pp3ae8vy4XZnPlDRquCTJ7ot1XpwRFUxXWwti1xHmBh/FSyBgAr LAwFkQ/frz0l1+uh18Hj cTIPpXBJJhoatXTobbODBMnLmUYnCUnYk1QGTu3LucskmEEYTOYtp0XEhTQfWZCVTTNQmQWzER6Jpgbz tndtbAfACSzWhfOI1qX5 b2O5MSXyWq4wJGUBdUXeAISGNsZ+Na0Pgpob50kU6/0yvA3D1DRP3SQfMxUIgw/RzZuQARjfxXrCD5dY XSNhAT9x7kimTeKjv32o edbXtoE1rdqlBOzIQJMfmtOrACM1JWRyMxY0KRl4tc4qvLwkskXaHnk6YQjtiiJXMLMmszkKNvYm6obj uc60xfF1Zn8+tPFlBqww lPEdIDsNH8Uh2oQ9Ji7YHyh1Xy6DTd7NEuUyoFpx82B7cShSGtRDW4r3qCH2KydiKbSEBVnB+fJI26M/ mHixMmTEEJZWVnZCkVOT f6ICBEluCEqaVT8mLtKWmDzxXOodQiji/++/FeDt3/y9/MYF0/QaYqIQAsAIdfdq+jKVuVg3ER91s4Ue pDuiAJx3kLoPEgQuqPmY 3YBJD79Ff/jrh3bye8uYYq7oKQYPZuMCKSnX8Dou8npy6rdzUc1Msze2pUg7WqCRzVakOH5lZZE8nDVY yJu3+VZ3cyWPRBlkmAfJ EXDwPkfSeeRPUVZtkJkKDS6gB6eAon4eho5a2l+Sbt96SWdX8QJcsIM6d+QruwdZ5dlctPdbZLxvGAUJ 6+rrRRodHTjJFLCYKCVC dHjE5Rm78C2ACPWws4+b1aebbUQmOJjFda1omOD8o+i1+t/LkG4fq1/YMHOJHmGBKrKRCgXDXbLtk3LI IimkUDQqHHjeQsW+vrhL 3NwFc8xhLL/VWqd6Zr7+9bbwSFWFj42cjWZKVkCYzuHWBaeQF/nlGbMy35C/V2dkoZ9j2h8/dZb4Wutg c9A3zuLTXJxU291rk4dA VQLTwPE/IZgqQYNIKiKgPaAjPMHTFgzIJPHLhZWLWlSnnMFMZCXteo1MTRUnSGMUKmrFFDSTdLOSYrTw kIJAPPKawv0RZXPoKDHI MbnXPAUPoXPWQvXnlNZSXGUgok51H1/Y/8mVBzl8+sLIpTKiDeaYegIG7Jf51MvN1uahjYuz2UwCXyYx 9Xt9zl47cr7+/xER1VFi MbwPHVouG0WUSOW7AL4yMkSIalaqQHKVXEcj6yL+c/w0C57igny0tu9M9eGakfvJD1YABWLow9HeRj5m z7wDJg9RpWcz124bvWJp mj6uSpaNa9ujkc6nfwnsXyh7pVfe1bY1+lFJr51tTBs6rJhkYsrzKu2rLpINSB8n7h1mHp80WPXJi+vz j541p8Gd2xXABFrWhOI3 ykxGz2b9xl3b1Jp3XgIO951chq4B72JJWy4BOYcy5ooRWAMlz6IAyGsLi40meqJFYFpBwJSw7GqlLitJ BuU9ErryDan+jslxvyHS IkZtNj81vNKxaXl2bChs5oRDDhMLpJllEixmfNuKl9JuZlMK06ot7VxnH/jFjpeDIjO7A1rfERGo5x1K JyFpRAJuoVw4UKjBd8BF E8lauWaWnLG1+8v20sy2+CEorhNBMdl3UerxfrwWbJCSO3iAc822KwXSaJ0+PV+dlvbw5djbehMZhCNd 4QG5cDUde8e4qCQ8j046 NFYS8KQJ/V6/ZGDh/zK+mmz7j1xmi3nPOw/o1mBsOHPd1apkDKZ0U++6dS5c+Hyo7/7plQICdPIvr5+e mLF6VdDK8lnTUTFrVSC7 WgsX96/Q6eO/Y2hZyPMtviFz9UcuxInDpfuNtnWf8OI4BQvlXNrwvZzjWizMGoVvJuUWe+PHVOcWFOmT eO/aJ+bm/vj+AnmbXnMf 5RK6LRuYb0oi/7kinmm6b08cRap60X96ZID19JU0VewYp1hiGV/Ln/z+g2/3X/jSJyCImaX6u1pmD5v0 9txcXG/r/vxV6YM62/Salguero 2w3Wn06IgZM3bxAs3U6TpQdx6pq6JNOqAOYnNn/e/DkVhGj7jf2Er3hNd1dLpTgkVzAUbJ5pSPLhSOZN XVClKwwh2iqKl21oF8wU zb7xUpXGTo5ndQZ2rILzYTAe9t1/HjHRMBYK14p6gFneVuwOqNXr7s9R+KiGelKoUu9dgDPd1ANKs8om HSy+hHViMPQrGbQJZ3k0 kicefXym1KzI4Kh3zMmxMfnf4xsGwOZOhRGHK1UIkEHq3rd2lEHLUTExETs42MEVaAFMP0+iZr09Wp8I SQrCQu8vzb8xMtiTdyoB z6+LXcoM6HGPG837qSZM9IfSucmPpE4qEwUjz499+0n6cIKkssMvu1y/jiR268APloLRwoG9Nt9QBrmX 9SVHF1vk2MoWAnkpod8o Y9Ktvbi2MUJ51YMm377mRIJhy8LaixMuta+2E3aOm0Ew0/f/dH67dIAFdc4vIrNPZiCawn75FWLlbKvz UbTtGkzqcxSIXIcd/5ci Wzfndv5ETTjtpb+ep2902VoBM+NWhMeHvbg/u9gUzqCnHCUn9w4wi4y+Nrhv5VhYSK1uuxGQCbkMmQvo GgjIEiGfXSK8qnTMsMxc jnXdrUQLx4z3acYlfFSstr6buFExuz5rttHRY6qPVwS4Ub7Rp9oIaz3p/lmNuslLL0GeANj9+fbrHnz8 eNyfVV9KVSQWGpnUHIeW F4BcmNBpUVwTFXj56OMeJOvB5pnyEPGs/w9yoPRPw4YOyq2ymTZi4kqjIEHrUwflWLVDwEl4dd6v2ped Rm2BzJp5qOf5ain8bbjM D+pj9AIISOwJOAGFWpo2ck8IgCwpb6QWn9PzQEmktq/rGSt7GvK7oSy4vs+so4WZh32Z1QrPKBaeSP29 6tfeqBG4v9p+c9s0RPtd dnQR7feCxAhGXmib3M/breKh412/3jKRQ8ckc8mY9jgRQHABY0m+7pYXVfAkOFNGHrFa3vrBnhb6+PrO 7AaQPSQm4D/1uTRaBk9t sWdIKyig26fmx56kJmvdEvSgLyFprhFjfiUa07wLUSm17yZZ/7Ytr1v/359+x4CAOpgxJPCZ3jQbKAUH yIlB2Zyb8gBoav1+4aDB z9Kx8MiO8hZEUqG7KJCNtAm2tOPaNnMbnfcetm8lXGAfSsIpIR+/D6mltvz7vFL4WCcBGrBrz41GlkEQ nZYjv98g8ceLONsMz/eu IZabNdofeUiuupVykosthP2w4vm6WGvp69/sVhcUFE/pUDITqvSJo82TsHS1v6+yE8euRK0Z9nKzUTWK Vd5wJOsRadcCrHCSYOCs oRd3ysTdJDK8XRu3+p1a/TCZXgy0Mc3bt1+ByXSSk7qoGu/0tv6Jp6aIspppALJsjkGNxcXfjwQ0Vu4u m4YY3hxTfzbEx20CHllJ EQlHPXw8kdXW1UCtaRd8zvGyw4zL88HRacBzSKG9yJx3t1dLUt7dTDTidDuKU3hCso/f/imKP93VjUYy k62ZFwb7eKO6va64+aNm +yy5Rm38iLqTIdrWPg/St1arDwaH03f7PBj9OBgtprqIwP6rp3+XWUvvKvWOG1mDLw37atr9LKakHay2 U70z84crrn9i81QPSiPM jsg4HYu65htSj5ncum1H/XNN/C+P5fCj034b7erpDfbJ6kEn0QEtE6WRyFFGo93n3ST3xQ2sm6m+/v6+ yj9Zc1OJQDnTo5qTg3Sf tfZju92pbHdyqrIZ+cm99jb7LGvKif4BSTzkUqEpGZjZpkzs6q89DmCx9Sonkt3E1/Tad2EVWfMA07ox htU+5ZQQ7Xccjl2Fx9p3 HdLdFKM03JAh7pZThZ5eFepG29Jma1rD3seO/f4+/pt37rN/OCjhw/3jd242d5dLPSU9JXd1Jlr0/j7+ u3Y/kf+0N07d/r7+jVt2 WtYtTl2D1JxEtdQs//y5Uvzg+DGlID81JeXVDBiVfzirlcui+0c104ozPg4xxge2jX5CIcWjH/b1nSHT B303QYP5Nutncg4rIFIF jIVOuch2lYyR2U22nlAnQt52hFx87tKaWUrz/utv6/f/5s4Xl54kqABIY6tyV23EoB2wgZso8kGNFDuG /FpTRrfy6S5d/Zsf1+/7 t73rWh5ipZChCRv5Cev1/HTrGavNdFlFOAxHXMiUen4pA/Kz4u9LNlKiFU07GtMwGfYh6ppzf/vvsLT2 dsfugeWRkOVuDv09tY0r TN++snf12/SMf2EVW+2dStf+L992uPq7CKcwrtK70+GyBj13h+lRxfDSwe06mWnfkWbehmA5Iw9cyIMT Wdi4zl0beIVSC4my59nM gI5zBm5xxVN3Tt54CZptBZudlTqBuFT31XY7uzifJsDgSqKYJAG7ugrF/i2kgU+Xi5q5z2AaYtSslH8G uhCEtGTNf7x7++v02otj uZOz2TiMuWt72x020NVDFMk28FY4TLE3rdovd2NDogEbUjW028MP4hX1YbY/QcO/Cu894PJfhFPS/Hww ZAWIZGf9iYFs9Evo4un6 SjsRWvgzaOPOEOXKpwiqTtCNY9Qq1WKY6wbY/4H9x+wKvMRpKamxr+JN+36+TZnXExa0h4ok7Du+S8Hj 3ncK05lPY5Ed8rSlrCyV ifNn09nVozm4vkqxEu6yeVFy9hPgea2/kpcu12yu16vw/rqHAqnCmoL1nH8vSzWjm48xMHcUTD9XkEho 2DWoPh90bxcpv0CDtWiY ewfxfhfvGnDKKQL5rdyNSUWxFj/YYpHfDROWDpf3jFaYWw1z2teYM9/gjGNHe0jw5ee6T9tHk1NB2/Pu MSdJ57rgfPWIx7HKgik3 fwCc+fN9/H1de9ZJDiyAL5rl/Rp1i72NkwINd97BPfD4Cu0jaU+Ih8z+blbj+2wfhx83GJX/k7c5Mjuo 23bu/ngJElXvHCM0k1Wk Cr4s+Z5SmXf/v2+mttMNX1hNrhj/yh7PmIt9JiUiipO5Cv3X6iK5ih4+rVDnJxV9U0PeEulwjJpR5hYx ecPLmXPCnRcaJXy3hfFX hku7bz6lnrWZjhYVWqjolAhN65ajr3yXHvXLVwycZNnVKjZrOHz4Jsc377CuuLx0923w2bFq8HWSe2fC ZzzwDCz05rvnEu9S9tZ6 w+DBNQMrFe/vtUsbt+94vRAwgvIEqgbFYZtPORZXzRjBK0vyrfjAA7+ROZtUuLGe72ghuzzYEIDYCnZg nX6IwuIfvDsWuwwqwB79 isyK1h2/8qMonMymKiQd1+PBd4+Aq1hk75NA9p7cqgPAUSWZGJX9AMAT5ACFN5+vQBEdwy9m8/8PHOWV QGSJIUiEQCIxWKhUFhQO vlZOG9+HVGdWrXPi71wSRDP60tZKzjGxLa/z37x/EV+lUrXtT9bnxSO+m2qNLit1FvjCY884ubTgp4hI pIkJ0+xlvl55xqmIQG33 21sySZCpqQLM1qiD7TnPX5fMDDimAP70iX814R5g8+/evWqX//+F5LsODri3s2gkVnbGsySe8aXdxlD4 /fN8mW/fz4CsRLbVABL6 SRl/CZB0xxRxbj/XmWtULVrQV9drzGUdHJHsQ6kfOsDvVQB/xrfMh8foIm0BAV0tQkY/61qRQfbHUVO4 dYXXLB7u7/JfoID5yc0U N9+flJUcIcO+V7GGbSjAYt4dYWz1plTY/lsFp5cW32o9lWfBgdeJrpvVsy8/Z/BnKDjD8Rh31RW6z2wF Dq19qJGqmjhvsTkOCS+0 SKUX8JPDNoaw2M6Qb+MGrpe4Ehg4EslRESkHj/9/ckTfGkVWDsrF4X2Q7HFt6j8iKOwtbUwziplH9zBf YkpAUp4v3mahr6DHUNnq Xpbi/AHVdTp4caHEqCtPwux9+VF98NbKvL+4M37g4vAVTBlbNAuKizGLvq2N53E6Gr479xmao+6Z/du3 syY1I8gKatUq52Nkdcg5 4Mc2AkOwvFKCW+/mgL70Qlu3ObM783YPTlsqvEek4v104/hT/XH9lVb1+rVr//GklWICy6gQKWtFdh4f W3KqUamCTUEqPlMoi00b t8ofAcAWc2j7QC9hOI3+rd1/MdTttRvO055fJEzUhpyc40QOCNlpcKUKsngBEqfDhnQYKzPD/s31Wqgn Ino46pSFsjZbuRz4DCXA /lt/wPYFNXvUOV7Cq9/zr4b+PunyMzMTExIrN+wlX8LB14hg/lx4TT8Db+VaxFpPTWGA3En/mpRCgQCq tD7J0+P41t9j93o+Ob1m 0k//XTFX9kNTilb2dlC3k62H//mDQD4+vn6+PN3CPQdrtb27e/PGRkZ/ZeDHGSL6y6u+RfURry3rSI/w sEDb++owrFGSDGEfZy6A q+BlvVbSKhDZG4JN4mW4Od0NdLSQrMZh0X5moz5OqZv4Alap7ogxWVw0r7hQe7tdfntTEu1GzqHRkmf1 QiowffIAODB/qiZKs4cn 5AHWe3ojJZ6gKmCMcsG/f7gH+5IGAcJtVmJPXPX7lejT1NL8zGRyXwQQw2le9sr4z/iK5o4TZDK9E9qc SzUmX93zawP1Cl/bldAh wEMIZBjIDoUw7A7dlv7h2EcM8lfkW6nzjhzeO2N0EZ11ZrMQMhAZywd/Pj4+jL40ZfD0Dk9s6C/z7kzZ eSPVsyXNKprSJOf1cdZB TYBPgRnZxfzVpUyV/fqEvVxplyeIj0PPc7AXMMLVQcVJzppEh7RerM+/JUdclqoUeGDq8vb5UxklwfXv Ui2DFXh34R9WuWysqu1+ gcq9k437ZIME4Jibw7ldM0DEKl5L99yg5IgkcvbjzPUqStFy9+/XnDhJIfkpuu4EfLOI7UhFf/erXt3A XxUzIRxP6j4jlu6mM9wx DYgfT5hzU/PwUB4OzDxd9tLoEy74Jba5tHxbiQLXlTXLGQylA+KIeLmBkF28aQIZ9LA24bsD8ajCGZUb 3Smu38uAE6CmZMW5HhRJ ndq3+GHceMNRoPVDoWJ+q0zaTy8aGVOe/Ib1Hsms8ic4DM0im31tnAC0jq9lioGbu1iKaYwoR7fGeZmJ d9u/1aKRM77bn0iv5paO mj4dec57BUiip1+qsO1XUg0VMePkE5dHecKXWExY3gRqOstK58OPNSdPs2hU70rVCykvuHXMxlKsIGQn NdvQFrBh24WxpjRpubwC 4Ki91WQKMoJKz31Q0lzC00nDjoD6OVHOKYG80idGZqFnWjAxEvRqjZHHSlivUJt/Pupmv97VDbae5Jr6 JQmZvAq4xQnmXeIwJ1uD uvrli18/z45SM6SBHlUZ+M4bv/xvNTINuqNQsJMtr2dx1xNKKXAuTpBL5R4FIo5/9dn+MiRABD/5s3EC RM+qGNSoWLFPn3/9/3YM r4oA0jHzlMdOg+Ift1SiAcvPrq0w2icgonrhO9zh2d+z7WZfcXzu4qPJAfbhqCeU8UvEwCI5o8dATUc7 TaZpPrHPHa41VgqvbDuK FwgEJib+V996UMfGzblr6um5h4/+vUIzq4Os48sx83lYHv5a9mgHKXE/1cg+GArG9+tH7AuSGK/ruM/d EERAtNbnCjqLnqvJPBeA EZmr57jfiI9n+mXz71CpcIv3TOd7pXcoVRlQc1xVXfAoqLE/tLRAfGZ8Awzz3zAx27aYwA6RUkf1SjFx i765RR9JbCsZtjn6rg58 GoT99CxGkbFRn5iEYD28ZkD0c1YHYmhJxWYfmRqdq60ijVvtqsuRFiiPZ0NL+bx6XQ2X/fdxjXeN92nE eetq/9hJSuJKK6lNEx3b zu+59GBxIF4NpEb3hmrmR0BbSboKHYbh2ir/LlO8HbAPNfMJ2ksqPTQlv7zNfYdHU9rv/L4ib+ffi8zz 96nT5/mZH9Av/0D48cmK eRIb4jyDfLKPJVUnTcNZx4aV2xYcQCUlTHRSzc4FWd7mIGxaswMnTkh/Ok9JV1vScJzqR2ZlVtkraSUt QydntIlCealVtaQ4WwfW bQgXSNZsy3mitaeen+zvYXUsLSdOpRiHAHhv96/bwnHrzFAR36anKbhgvYWw/+yaNGzZ8/sPw7iKqpeE g29rkyycOIJuqEe+Ftru sox2u0Rd/v27F26+JfuPXuYDzN/BB/1EhJ9au572329qc82qzxwwz/fNqYE7UkDi9Hrsesc2SXxLhXF5 Tt3/mfuT3YZNBOYJeZXr kgPEGeMPFtkwyGNoY3ulw5kk2+KGDQ9B3w/6DZa9bMw3V0MzqcZeXbvVgiv1stkbIMnzh9D+xfkffYRK QXSpGdANTy69sWi4+3t7 p3lCazTH4qPmxrxM33xCbAMGmPMqkPZdCosrg/Oyc6+bwZs6eMxaa643rInWwukDVImBh3mGyy0BRKeJ pRSvh6VRViQUzMB21rmE ZutwH9OwOhkggn9xzdbPg15cSqrDh85XtYnyXqefovtqskowmvjKDSKjQVyNUweUlZVWPgqxlSkCA1vj 86dcpBb76WWvoCE4qZic Ibl32OZtn3fabRn92xb4/Rfm0hxg7verKv3RWBkYJpp/MpP6ANzIR8H6r0k7x945NLWEPll6+fPBw8Z+ aWJ63r0brHgLU8GkrYBP LZD6TJ8CILVgeeOSFH1QAS15jdpj6fv+3l1foI0DY54d7ybMvDEm3rRWhP4h0HgQulZdr35o1/lJoqmp s7yfi2eRDvrbOewSGMX8 3XdIvsps4Cu5DL+lS4lK6nC/1kOzsGufQGZdyZ2QexJJEdB3q+3Xz/e+aF0QfbUhSe/H7nxja4y8Atbi 5oY402inXzkbNRNhcHr4 GsAQPV71Ozb/1Ub/c058Nu4X5SHuQj8l+QMBEblpnB97ituQOLaYNZEglod02993DwK0rZ+po774aDQh Mdy0ApRjbG5jOhm/+2F7 tSlS+ZBZMYhHPv25Snr7dr9h1vwuP+td7mDkjgFlqazEy8UcteFvpFH0Iv24wJ8yIJv4w649ix2/G5gz Zp9+/VjomK16Q8igcJ+2 MohiYx1EJHR8Gb/rDPSn6rkee5hnbWJIVMkUqQ0XvIiEGSh9lnq1h04x0o/AkBiYuLkH3/B2ZKS4smQz Hu9P7DyDJEb5gBBTDcRe kk//Ygs5Dgni8fVkC6g38/g4soQNPLs0i283FPjfGlzPQ0+lYR2kGOXY3z1BGGUCZBfRUe3UP2HX4659 maPo0Rf+IMpTADw2Hh+d /SxqaZCgNaxBdzxpx0T8f3J6+/b+/lc5mzd08zulbpDSWhP+olqPfHB1Mr8ujQgP7Nwjhj+kxHX3yzRe Xmstfbg/IUL+Tnwf+7ev XXzZonESg/F18+KtnWhk6xIP3DjaBRzSwwkSCZjURjkSS5/lruMlwpRBJAl5BVse6TTgJyG0DZeJRNRW hjF32Is+UyTF2Nc20duX fdnIKVK2Thkd25IGVNR/4Fpj0jPhb6lGFHg5M58vhMKxivb+GeTluxu0pCNo7NYbep4EqFxkWrQ23/gg QwPLDPiZag8npYX9VqL9 bQFWTq+XgZzA3rhUCAOwRprnLQG0cySwilSi2LeqtZrzjAZUaIKNNxphC/IfVo7CnX5Ek+cPmPRArexs S77p91x8xtGo0aY4fjo5 Rwj9sHrv+QQdzUrKi4bFlzjunPCqeN3tYSA6DJzN0oIPDd8ioJu9LwZheFNFAvap2WGvOuRvAZiGDrnL xGx7Ylr0fjV3zChrZY3d 5QX923R8YH8reESfq4/AICnp+evazxI81VCuOnS/ldNWCGt9rc4y/u2N848ehYL+5LjyYk6F/1QkKvQ9 djiXGIeXQYkyvBsdbb3x 08dQeCJyf892bEYz0VC5ozKdkKKop3YQHVgNpqs/O5aMexZ8fsUgsHSrf/kPjR75pRZ4G1obkIaHzctD LuEe8Cb1UGkKjXD5MkQu M45Zu085o9r707x6Q4l5iCxG9KjZ3D7aqhuCzxoxHArkJUQaDB69UhzCxmt0x86B4i6WFBcXq2YLSaH5 rjrv2R5tbj0ULMP132ay 6AsEkXuWTsMcYYnENObCbMw8p1sbhQOTvPBDo6VLYHzyj7Kxy/krUx3GFZbRff+fetW/wc8Dozo5EHC4 c0i3ahGYbEGRc4HJagdC fhPgdSUWzvzaxzMFuOc9f9iyqcwwAseVLr4PHg/yX4rM1v+QM7VrckNqeCFxmN0VciD5vWiADMhSm11V nxWwB8hkm1gcfxLOe6MG QhAjj98aTxKUhbxcs026/dzAWOYv5cHBuch43KwWiPaTfit9nFrkjUDVr4g6o57EKBcjJgDTHkKo87K7 NPe0eQazb0rkt5BfL40R q9d6+olya+NUs18iduHlm6kq5L9zHDtuEaRMgoKrMW6g/naoZBUf75YnEl31xJ6o1J9+oWCx7mgqz3fyiv BV+GZ6sz9pl8XyPvV8Hz k1oCy924Nza1bayzDffcd816dgxyh4hd+gtSExM/O0l25nC61AEg/gR8/pFERUgmaFUrLpn2DieQ2lak /CoUWvWrlkjFosDAgNMf lzF9J0wFWZgNlSReIolN68qjNHdss5duEZb0Yu9Vh41fp/47zWXM55DjGPXDJhI40ks/632l7GHVf3vo 3vye1eloMFu/uVLl5k+X HCNdVAj93+WAJAZzi87O9LFSzS8RVrw5+5dVKwbvUm9YHLvookHMkZD4Zn7Tv4xr2f51SWf0/9ISUlRK oATw3rtVcQZiWPQQH6gN tel5COTSXl2tNFA9/Qvc3UiRe1TkOc3K/v5s+u6HSr9U+a1U1kGsSg3k6oWEkTPgFeliR2/f/u05jJEb 2te1chK9yJVlaoUDCChF vCoDgUTyteY8382s+6cOVqNtk/nnfHj9S9b0CtltBjtSSP+UFCsbzsJvqzGayjpj0BoISVH8luSvEhQW B06KJ0T+vwYUzzpPr5Vh z7+TbxAKKBIUqVSRT9+qOGfneEOan0OmGAySHrs2i1i/TjypPGZt2sfbr+7ju/CQPFpH17GwSZKWKlL4 w05Jp9vunrlcjGiVXF3S Qn7EnBgkxNfwYbeJNNcn9E/1f3i34PXCaIbYqWP5tgV27+tk8qh8zl11Gyi1QJDfKzuaIQVfg7uBeaeG zjpgIq7eYAQZLGYZkeHU E3UooJho7rhD2FfdS7pWvjzwKoz31bybyi80CmIuMtM9e+RYLKJjAunyB7iJ+WoJscNiIHBnpwCbM79I bYnuZBsxwD4nYjLh4qy4 ehmSzq4LePQZZbKgLwxwa7OfhPms+nlBZ4YY1cm2DMaHW2wJIKImx9VvkLsTDUELFR55bg7452rxprYL bv/3Y0zi38wE/j5+eWPm 5ube/PJlU4bK/T1UxAq1+rYn9UjyCZ245+fP3/75J9x95g0hXg2XnLQxF778/ZHw9p4e3j7Zk5PpdB8p owh6PgEQ2sWhbAb5ng4e LGWVk9u/cCTw6rLLXdNZ+HSLcHzZfTvEWst5wPK+/kcJfBCAOEKKy905jgUS6wEBvUw9H5+kuN0I2D2i TFshrBioi436nikz1r+3 O9gJ02d7rRXVLWKtwTWAgNtXf9iu/gmuOqYPYtOCtoUT1lTH9BPPJ2gFz0krHRJiWgUBs+/Qj6eXaBfk Gyl2wItd7LjrOYdm6jeb ox8NFadCRkQUnFymQ2ngaro/+w016dwhs8tk9/DOd2VSDFF3j2mfGZBYx5dawigSYBYH/vLax7iFHj4V NzXKN7ZsGLWiP/+/axOW 1489NCm0ecMWa+5BD1d3o22o+/Q85jo4Euqv1twLOPavcniY3COB6+u+LPZvByNZ7Nqungch1p8PZiVs UaUtFotyzIkSfKViRASi 8N3XCkT6K57Ggo16YD0y8ssRfE67BV6i+8rzVdURGCzIFZPLjp7Wq1DZpKCrqVsgM//2eKbd1HQlACFE RBc5a4mmuJlV5YH1Ed16 9e622XbBF4N91kAsqUeSO3QWJB5BVb1z18ouuhNLLy5/0nVm3db5QD0fjo4xIEnfjlVSlYgF1+eOSsSi rX5rdeBstyhn8gtIUPA/ 4ED/6mPjLAs++D+n3lEh2B3nyXQeVkQKHFYWMS3JJlkOGY39kUb13SGSoVLHbaj2v4S5rsjhdfcs0Ldl 2Hu04DpX6kSfmLnyNesU h1PRVRjA45oIrs85lYERSTgrBvbfVb5LdLr6mk/1lDo3UZQa4F6mmQr8WwP20IHGGhnrPuiKZrqBVeI2 3gEQLNASX7/7ZEDj2Ab8 +Kpm4qGNflzCe/Oac0jvVCFLs0rkgoNfTsg3foamg3GoVvI7+ygX8nlgOdWpYlrssE2+smDr5IcrAtfW Iw04uVLo+5yPggHLtTR2 vcEv0BzHgDkxpt139TQPtz/KYIYHEqexILA4KB4UAaLj8QbbIxPwmr5yIpq+cJgMJh/A//Y+QlUh5J4c rDCwmAwpQassDAYTKkBK meKUpJluHgIq6ZXHrWNvaRwgJhkvHXZSXuZFlrGZdBcrYuNr1AFMqXAdiFkeOuepFRIPWpROgmTOzMmw HjKs3HFMbTGczYfgRrws GCWBWkDEohJSfHqmLvBk4VKRwTIceMyyKfbjCJIBEpGQlmFRxMvlRxBt7CIZlLV+eo5yNvFoQAuEi/++ WDogmkh4u9xPkk5y84x8 +joKBKJ+utwceTTbm0pNk/z1b00qTDN5uf9L5jVvuPaWcN5Cse58xf6ucd559yy5q4kQy5KQUCz117Nr cDTKgPiKxFn1ZOQ2899e udmp1XCAF3tn7/F1KTn1yxgGwpJf57UV3+9hrTvUQtHVHrKotvi6d8zUnZczra/JNyc85Bilai+qR4+f Pj/zOjSpcuuXbs+ab5Dh q5wMOCGgFw/5x854lui//8slP4JOVRKHCUSKOsdW2bdbeIqEO4AvCtEHH6tDrOKE6ZJ3qOrJ8EWn6558 m/+fW5hmpPLz779Qbqv2 uICAE+ePCkk/oSfoqJHjf7oRQgBeJKKsWa5oOpVCoOmAX4oQs6AMTPC0dIWd5aWmf7SN9zEdDoAlyTSg 3nLTQg894Oeo0N6/ZkzV PjV7u4Jo1URGOIzxs5/8WnRy51m+MV3L2TY/mqAUTv9NNHQ9TFkBliz+gFmzXZS9tztNTICoBMokaY79 bNnBSW+HwKWHPx89yC8x kk8937sD5EvOT0bVv3jeljTGlNdwYJXU65vGhoRsfim58wPd6v+9sQHsvqnKqiAfj61+kns96YRexyoL jeQTa2tRUFB2Vlz9Pq2W UytVv/57670W6P//v179+0uSEVrNqp387mWdGnZ10pkJly1mrPnsZn5+C8g6gy0dszEpWD/rIaFhTVt2 rI62jOHZgyA09OYOw+7b j35EjFniCQyO43BDHdPPEeCqrh4xA/d2QDTBIXf9bFPFmxbG9fLxIkpqsSVdIwSf9x8iMlfPr2Hvf4Hi k3m1jjKJYKWk2jlYjK09 7/z2/uHlNki52c30am/DyvqF2q795CJBvw/HTis5bl4I/Pbz58/RdZ1yfsiDX1bwLkEkTIfuTkllEMOi cY85FtgGykmmZn9ieNKL twj3HRvYTshZAgGKEpJzTYZWFyQAKqqrjbMXs9yAHNft6EPtQvb/ZtfpVNsLNYAvEiSynZf9xv5efDLW ORXWFlZWQAwc+bMpKSkw yHVLIqtYoTM0FAQ62GrZ6thK9Bt0AgnPC70YAR9Fq59sHy62mAPjfLqi7ol5xgCBEnPQZZWvsf+88H3h oh7e8bkCGHi6NjmGjGdC nDgwPztjuHDh/GoWYcMMFJt6gyY7IwZgdYKy0kQuNFCIQl5taCqOEYIWA2becWtPEyWkT83Yi9u/Mbs2 cBlC0bAOeSPK696blPwp ampvNJB7/vEBeAmZovY5To4YgujlQl9pNmo3bVieLjOip5zVQj6+/lwU8EpLuCj5HomvRIrKVIDGGuqM p5Idi6Qo0EA23MCktAwt CSb138wheXsEFPO4NR6UIYOb0ZnwmNo2i+cu9hk0l1fOyOQhXnBcwVtfp//kakzORgAHGDjHp5NpBn8f u3OnTt/++98KFsVHaqV4 mPPN3TYSjVSTckVU967h63Oe9PlBEikyAfxo6s2UiKxjB8/v/lQ8lG473eZ9G+U4sACw8Sutn93312IL i4d5UefyT2OPRQBNr6OG UlKUFl+eydzLpFXLGcWLuulIdTlg6mUJF0L4LXbn7INxWdQqERBZ8zV6+FUm98k8s69gsBgxmuw58855 vYFpQAAc+bMsThYUAtLI sPKTJneWm07+IntqetLtpAoLdUPiyPoEf5JXAh6uhkvehLpWaIlDX9hyiuTI6qyL0fjaofBYM7wrcP6R Ohr7Lkb+YtUoUKF/FY53 SKhHKLM64MdUpFDR0eHdO2v4MDfZ6Dtq3y53NuVBeHv9LhhBwJHjCdIeH/r8I1ECaqNcCdCFz9y3wl/+ uqrnJycQhJ5+fJlMbNDC MkfUQYqwqWPRr00Ew1dvaIr8T6YjPHh5krAuYphTgawa2+VXnLS9os3+vqacjRhNYUaNWoAAG8+K4SyZ anYlZGPLvGjx2TvfnQIe Jkj3RKgQMCp4hq709DyX+9vgKDZm327IHoTC/5x7tYxH0683224r+/wJTr1NSUXguZjlt7QDTHPZQRjg qsPYAGMbj9jhMwxIz732 rxpyXw8FJ0iNt3kBjm2TfavPmBZmY706UmxhIkcnXomA57cDV5IOeHhHWWjb132g5QdsiTAFtDh344/+ +23cePGNWzYEAAuXbpkI E2u8jlIVlheJ53DT1CiISAe2Ef8x+z7ky9j7ksOz4FkZs08AkAc+yZz5A8H6tpRDCu3MFW5wtRB9+Xt5 CakWxTKpBo2BpUGAvGRB y45hoYgNmhn4MDwCva6hxv2YcE30Y/5vwddTRNuqLuu3djsvHML5wccXZoQD78xAGplASH0O5A2RXBuJ VSqlkZ9JPfirC/SokuIE Btjzi0I5oKOb3lHWQbu+s9H4W+QuFJiPrRCTz1xnaOYgyr3Fk6r6gSf2kb+lhQvm2CYBUCRik1i8k8s4 Hcu1lj59kGpybM/ERQUZ QahhRvQX4x6m2b+49atW/bRJJc0vKrTc9BSjzrsZyFCQlSKKqK7rGsF68/Oql7Ctuqr0P4SvuoaWqN6h 9bM/Soxyj6AyC83q+ePW MHPy4xurVre7tuEhOUA3Qw0lkUp720WbVvDL2x5pNXzMj6TBkKi1pV09xtTRjd7ks4tYfF2qyn5cuJBM UFBv/rig3i658+/FYlEP j4+my6I9nmJ19oeU2+syc/z58+vXLlichMHgJ9++xen3ri0gzw+/u8a381gqPv3BwuQdsg6+/dnWdZoN M6yEIwPwMlgz2B7Dt1gl Pz4russgcSnAl6i8idEqUGEI2ql7Kj2xRH/jFGQjH099i6+/pWoqhXjYpyrRb7nnpIbjdXSBk2u2m40c bUGKD6TVkKMoDlxGOovs sCcUsokINJHPoSKhAy7P55kbpXKokDprIHx1qv//vrr/MVsoX5XxbRn8wfC9UygPlZPEyUkivsffMPz2 dvlCbONXjtgOEUX3VfVO G9FlVMgW04sep8hEXMSkk23SBHMJn1gl38kfYtNzLofH+oTiKzCXq45mXNj5X/EjaHlTnq6RlJDmShLU fzSvGSvmWnLt0MHUtLTq dDfqKszcCNKBKbQOjjUNrEniNrMs2HCMkBQoqAxeUl/A55RS/m0k3ZNKEQJSKhVIaSbIpPD></span> </div><div>
</div><div style=text-align:center><strong>GYNECOLOGIC ONCOLOGY CONSULT</strong>

</div><div><div><strong>Patient Name: </strong><span class=clinicalNoteMacroHighlighted id="[id number] macroname=PatientName spantype=macro title=#PatientName>ALYSSA PULIDO</span> <strong>Patient :</strong> <span class=clinicalNoteMacroHighlighted id=[id number] macroname=PatientDateOfBirth spantype=macro title=#PatientDateOfBirth>1950</span>
</div><strong>Patient MRN</strong>: <span class=clinicalNoteMacroHighlighted id=[id number] macroname=PatientMRN spantype=macro title=#PatientMRN>[id number]</span>
<strong>Referring Physician: </strong><span class=clinicalNoteMacroHighlighted id=[id number] macroname=ReferringPhysician spantype="macro title=#ReferringPhysician> </span>
<strong>Primary GYNOncologist: </strong><span class=clinicalNoteMacroHighlighted id=[id number] macroname=AttendingPhysician spantype=macro title=#AttendingPhysician>Sarah Coto (Gynecol ogical/Oncology)</span>
<strong>Date of Service:</strong> 02/02/2025<b r>
<span class=clinicalNoteSectionShowSeparators clinicalNoteSectionVisible" id=[id number] internalbreaksection=false originalname="Reason for Consult: recognizeconcepts=true spantype=section suppressempty=false>Reason for Consult:</span>
Cervical cancer

<span class=clinicalNoteSectionShowSeparators clinicalNoteSectionVisible id=[id number] internalbreaksection=false originalname=HPI recognizeconcepts=true spantype=section suppressempty=false">History of Present Illness ([employer]inist Oncology):</span>
Alyssa Pulido is a 74 year old female referred to [facility] with recent diagnosis of Stage BRICE [...] internalbreaksection=false originalname=Genetic Testing recognizeconcepts=true spantype=section suppressempty=false>Genetic Testing ([employer] Oncology):</span><br&gt ;None

<span class=clinicalNoteSectionShowSeparators clinicalNoteSectionV isible id=[id number] [...] cancer excision

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
Never
No history abnormal Paps but [...] internalbreaksection=false originalname=Physical Exam: recognizeconcepts=true spantype=section suppressempty="false>Physical Exam ([employer]inist Oncology):</span>
*Virtual visit*

<span class=clinicalNoteSectionShowSeparators clinicalNoteSectionVisible" id=[id number] [...] & Plan: recognizeconcepts=true spantype=section suppressempty=false>Assessment & Plan ([employer]in[employer] Oncology):</span>
Alyssa Pulido is a 74 year. [...] and Sarah Johnson am located in the [facility]. The visit length was: 22 [...]
[2025-07-23 19:15] LABS: Hematocrit* 32.2 % (33.0-51.0); Hemoglobin* 10.4 gm/dL (12.0-16.0); Immature Granulocytes Abs Auto 0.01 K/uL (0.00-0.30); Immature Granulocytes Pct Auto 0.2 %; Mean Corpuscular HGB Conc 32 gm/dL (32-36); Mean Corpuscular Hemoglobin 30 pg (26-34); Mean Corpuscular Volume 93 fL (80-100); RDW Coefficient of Variation % 15.8 % (11.5-15.5); Red Blood Count* 3.45 m/uL (4.00-5.20); White Blood Count* 4.83 K/uL (4.50-11.00)
[2025-07-23 19:17] LABS: Chloride* 102 mmol/L (96-114)
[2025-07-23 19:18] LABS: Potassium* 4.5 mmol/L (3.6-5.1); Sodium* 133 mmol/L (135-149)
[2025-07-23 19:20] LABS: Blood Urea Nitrogen* 38 mg/dL (7-30); Creatinine* 1.4 mg/dL (0.5-1.5); Est. Creatinine Clearance* 31.24; Estimated Glomerular Filt Rate 39 ml/min; INR 1.77 (0.91-1.10); Prothrombin Time 21.6 Seconds
[2025-07-23 19:21] LABS: Anion Gap 7 mEq/L (7-15); Calcium* 9.3 mg/dL (8.4-10.6); Carbon Dioxide* 24 mmol/L (20-32); Glucose* 132 mg/dL (60-115)
[2025-07-23 19:23] LABS: Lymphocytes Absolute Auto 0.60 K/uL (0.90-2.90); Slide Review Reflex No
[2025-07-23 19:32] LABS: NT Pro B Type NatriureticPept* 8280 pg/mL (See Note)
[2025-07-23] MEDS: 0.9 % SODIUM CHLORIDE 500 ML 500 ML IV (19:36)
[2025-07-23] MEDS: HEPARIN 5,000 UNIT/0.5 ML INJ 5400 UNIT IVP (20:44)
[2025-07-23] MEDS: HEPARIN 25,000 UNIT/500 ML BAG 24 UNIT IV (20:46)
== END 2025-07-23 22:24 | disposition short-term general hospital (02) ==
PROVIDERS: Emergency Provider Family Medicine; PCP Family Medicine
DX: I26.99 Other pulmonary embolism without acute cor pulmonale (principal); I82.220 Acute embolism and thrombosis of inferior vena cava
CPT/HCPCS: 36415; 71275; 80048; 83880; 84484; 85025; 85610; 85730; 87040; 94761; 99284; 99285; J1644; J7030; Q9967

== ENCOUNTER 2025-07-23 21:57 | Outpatient (CLI) | payer MEDICARE, BC, SELFPAY | END 2025-07-23 21:58 | disposition home or self-care (01) | LOC: AMB 07-26 17:12 | PROVIDERS: PCP Family Medicine; Visit Provider Family Medicine | DX: I26.99 Other pulmonary embolism without acute cor pulmonale (principal) | CPT/HCPCS: A0425; A0434 ==

== ENCOUNTER 2025-08-07 21:57 | Outpatient (CLI) | payer MEDICARE, BC, SELFPAY | END 2025-08-07 21:58 | disposition home or self-care (01) | LOC: AMB 08-11 14:24 | PROVIDERS: PCP Family Medicine; Visit Provider Family Medicine | DX: R53.1 Weakness (principal) | CPT/HCPCS: A0425; A0427 ==

== ENCOUNTER 2025-08-07 22:29 | Observation (INO) | payer MEDICARE, BC, SELFPAY ==
--- OUTSIDE RECORDS SUMMARY | 2025-01-20 05:00 | XMS_ITS | Continuity of Care Document ---
Author Organization [facility] Address [address] [address] [place] [address] Phone Care Team Providers Care Chief Of Harbor Patrol Name Role Phone Lizet Steinberg Unavailable Unavailabl e Procedures Procedure Date Subsqt Hosp-da E&m Minr Compl 5 Init Hosp-da E&m Mod Severity Advance Directives Directive Yes / No Effective Date File Name No Information Encounters Encounter Description Practice Location Reason(s) For Visit Diagnoses Date Provider Providers Copied on Encounter [facility], [address] [address], [place], [place], [id number], [place] [phone] [facility] No Information 5 Greyson Hinds . [address] [place] [address], [id number] , [place]. [phone] Subsqt Hosp-da E&m Minr Compl [facility], [address] [address], [place], [address], [phone] [facility] No Information 5 Greyson Hinds . [address] [facility], [address], [id number] , [place]. [phone] Referring Provider: Lizet Metz, [address] [place] [address], [address] . tel:[phone] Init Hosp-da E&m Mod Severity [facility], [address] [address], [place], [place], [id number], tel:[phone] [facility] No Information 5 Enzo Thomas. [address] [facility], [address], [place], [place], [id number] , [place]. [phone] Referring Provider: Axel Palomo MD R, [address], [place], [address]. tel:[phone] Family History Family Member Type Diagnosis Age At Onset No Information Payers Payer name Insurance type Covered democrat ID Authoriza tion(s) Blue Cross [place] Blue BL [id number] Social History Type Description Quantity Date Captured Comments Sex Female Smoking Status No Information Chief Complaint And Reason For Visit No Information Reason For Referral Reason For Referral No Information History Of Present Illness Encounter Date Complaint History Of Prese nt Illness No Information Functional Status Date Functional Assessmen t No Information Instructions Date Instruction Additional Infor mation No Information Assessments Type Assessment Date No Information Patient Care Teams Name Effective Dates (start - stop) Status Members No Information
--- OUTSIDE RECORDS SUMMARY | 2025-01-20 05:00 | XMS_ITS | Continuity of Care Document ---
Author Organization [facility] Address [address] [address] [place] [address] Phone Care Team Providers Care Director Trust Name Role Phone Lizet Steinberg Unavailable Unavailabl e Procedures Procedure Date Subsqt Hosp-da E&m Minr Compl 5 Init Hosp-da E&m Mod Severity Advance Directives Directive Yes / No Effective Date File Name No Information Encounters Encounter Description Practice Location Reason(s) For Visit Diagnoses Date Provider Providers Copied on Encounter [facility], [address] [address], [place], [place], [id number], [place] [phone] [facility] No Information 5 Greyson Hinds . [address] [place] [address], [id number] , [place]. [phone] Subsqt Hosp-da E&m Minr Compl [facility], [address] [address], [place], [id number], [phone] [facility] No Information 5 Greyson Hinds . [address] [facility], [address], [id number] , [place]. [phone] Referring Provider: Lizet Metz, [address] [place] [address], [address] . tel:[phone] Init Hosp-da E&m Mod Severity [facility], [address] [address], [place], [place], [address], tel:[phone] [facility] No Information 5 Enzo Thomas. [address] [facility], [address], [place], [place], [id number] , [place]. [phone] Referring Provider: Axel Palomo MD R, [address], [place], [address]. tel:[phone] Family History Family Member Type Diagnosis Age At Onset No Information Payers Payer name Insurance type Covered democrat ID Authoriza tion(s) Blue Cross [place] Blue BL [id number] Social History Type Description Quantity Date Captured [...]
--- OUTSIDE RECORDS SUMMARY | 2025-01-20 05:00 | XMS_ITS | Continuity of Care Document ---
Author Organization [facility] Address [address] [address] [place] [address] Phone Care Team Providers Care Librarian Head Name Role Phone Lizet Steinberg Unavailable Unavailabl e Procedures Procedure Date Subsqt Hosp-da E&m Minr Compl 5 Init Hosp-da E&m Mod Severity Advance Directives Directive Yes / No Effective Date File Name No Information Encounters Encounter Description Practice Location Reason(s) For Visit Diagnoses Date Provider Providers Copied on Encounter [facility], [address] [address], [place], [place], [address], [place] [phone] [facility] No Information 5 Greyson Hinds . [address] [place] [address], [id number] , [place]. [phone] Subsqt Hosp-da E&m Minr Compl [facility], [address] [address], [place], [place], [id number], [phone] [facility] No Information 5 Greyson Hinds . [address] [facility], [address], [id number] , [place]. [phone] Referring Provider: Lizet Metz, [address] [place] [address], [address] . tel:[phone] Init Hosp-da E&m Mod Severity [facility], [address] [address], [place], [place], [address], tel:[phone] [facility] No Information 5 Enzo Thomas. [address] [facility], [address], [place], [place], [id number] , [place]. [phone] Referring Provider: Axel Palomo MD R, [address], [place], [address]. tel:[phone] Family History Family Member Type Diagnosis Age At Onset No Information Payers Payer name Insurance type Covered alliance party ID Authoriza tion(s) Blue Cross [place] Blue BL [id number] Social History Type Description Quantity Date Captured [...]
--- OUTSIDE RECORDS SUMMARY | 2025-01-20 05:00 | XMS_ITS | Continuity of Care Document ---
Author Organization [facility] Address [address] [address] [place] [address] Phone Care Team Providers Care Java Developer Analyst Name Role Phone Lizet Steinberg Unavailable Unavailabl e Procedures Procedure Date Subsqt Hosp-da E&m Minr Compl 5 Init Hosp-da E&m Mod Severity Advance Directives Directive Yes / No Effective Date File Name No Information Encounters Encounter Description Practice Location Reason(s) For Visit Diagnoses Date Provider Providers Copied on Encounter [facility], [address] [address], [place], [place], [address], [place] [phone] [facility] No Information 5 Greyson Hinds . [address] [place] [address], [id number] , [place]. [phone] Subsqt Hosp-da E&m Minr Compl [facility], [address] [address], [place], [place], [address], [phone] [facility] No Information 5 Greyson Hinds . [address] [facility], [address], [id number] , [place]. [phone] Referring Provider: Lziet Metz, [address] [place] [address], [address] . tel:[phone] Init Hosp-da E&m Mod Severity [facility], [address] [address], [place], [place], [address], tel:[phone] [facility] No Information 5 Enzo Thomas. [address] [facility], [address], [place], [place], [address] , [place]. [phone] Referring Provider: Axel Palomo MD R, [address], [place], [address]. tel:[phone] Family History Family Member Type Diagnosis Age At Onset No Information Payers Payer name Insurance type Covered libertarian ID Authoriza tion(s) Blue Cross [place] Blue BL [id number] Social History Type Description Quantity Date Captured [...]
--- OUTSIDE RECORDS SUMMARY | 2025-01-20 05:00 | XMS_ITS | Continuity of Care Document ---
Author Organization [facility] Address [address] [address] [place] [address] Phone Care Team Providers Care Mesh Cutter Name Role Phone Lizet Steinberg Unavailable Unavailabl e Procedures Procedure Date Subsqt Hosp-da E&m Minr Compl 5 Init Hosp-da E&m Mod Severity Advance Directives Directive Yes / No Effective Date File Name No Information Encounters Encounter Description Practice Location Reason(s) For Visit Diagnoses Date Provider Providers Copied on Encounter [facility], [address] [address], [place], [place], [id number], [place] [phone] [facility] No Information 5 Greyson Hinds . [address] [place] [address], [id number] , [place]. [phone] Subsqt Hosp-da E&m Minr Compl [facility], [address] [address], [place], [place], [address], [phone] [facility] No Information 5 Greyson Hinds . [address] [facility], [address], [id number] , [place]. [phone] Referring Provider: Lizet Metz, [address] [place] [address], [address] . tel:[phone] Init Hosp-da E&m Mod Severity [facility], [address] [address], [place], [place], [id number], tel:[phone] [facility] No Information 5 Enzo Thomas. [address] [facility], [address], [place], [place], [id number] , [place]. [phone] Referring Provider: Axel Palomo MD R, [address], [place], [address]. tel:[phone] Family History Family Member Type Diagnosis Age At Onset No Information Payers Payer name Insurance type Covered green party ID Authoriza tion(s) Blue Cross [place] Blue BL [id number] Social History Type Description Quantity Date Captured [...]
--- OUTSIDE RECORDS SUMMARY | 2025-01-20 05:00 | XMS_ITS | Continuity of Care Document ---
Author Organization [facility] Address [address] [address] [place] [address] Phone Care Team Providers Care Business Process Engineer Name Role Phone Lizet Steinberg Unavailable Unavailabl e Procedures Procedure Date Subsqt Hosp-da E&m Minr Compl 5 Init Hosp-da E&m Mod Severity Advance Directives Directive Yes / No Effective Date File Name No Information Encounters Encounter Description Practice Location Reason(s) For Visit Diagnoses Date Provider Providers Copied on Encounter [facility], [address] [address], [place], [place], [address], [place] [phone] [facility] No Information 5 Greyson Hinds . [address] [place] [address], [id number] , [place]. [phone] Subsqt Hosp-da E&m Minr Compl [facility], [address] [address], [place], [place], [address], [phone] [facility] No Information 5 Greyson Hinds . [address] [facility], [address], [id number] , [place]. [phone] Referring Provider: Lizet Metz, [address] [place] [address], [address] . tel:[phone] Init Hosp-da E&m Mod Severity [facility], [address] [address], [place], [place], [address], tel:[phone] [facility] No Information 5 Enzo Thomas. [address] [facility], [address], [place], [place], [id number] , [place]. [phone] Referring Provider: Axel Palomo MD R, [address], [place], [address]. tel:[phone] Family History Family Member Type Diagnosis Age At Onset No Information Payers Payer name Insurance type Covered green party ID Authoriza tion(s) Blue Cross [place] Blue BL [id number] Social History Type Description Quantity Date Captured [...]
--- OUTSIDE RECORDS SUMMARY | 2025-01-20 05:00 | XMS_ITS | Continuity of Care Document ---
Author Organization [facility] Address [address] [address] [place] [address] Phone Care Team Providers Care Grade Setter Name Role Phone Lizet Steinberg Unavailable Unavailabl e Procedures Procedure Date Subsqt Hosp-da E&m Minr Compl 5 Init Hosp-da E&m Mod Severity Advance Directives Directive Yes / No Effective Date File Name No Information Encounters Encounter Description Practice Location Reason(s) For Visit Diagnoses Date Provider Providers Copied on Encounter [facility], [address] [address], [place], [place], [id number], [place] [phone] [facility] No Information 5 Greyson Hinds . [address] [place] [address], [id number] , [place]. [phone] Subsqt Hosp-da E&m Minr Compl [facility], [address] [address], [place], [place], [address], [phone] [facility] No Information 5 Greyson Hinds . [address] [facility], [address], [id number] , [place]. [phone] Referring Provider: Lizet Metz, [address] [place] [address], [address] . tel:[phone] Init Hosp-da E&m Mod Severity [facility], [address] [address], [place], [place], [address], tel:[phone] [facility] No Information 5 Enzo Thomas. [address] [facility], [address], [place], [place], [id number] , [place]. [phone] Referring Provider: Axel Palomo MD R, [address], [place], [address]. tel:[phone] Family History Family Member Type Diagnosis Age At Onset No Information Payers Payer name Insurance type Covered libertarian ID Authoriza tion(s) Blue Cross [place] Blue BL [id number] Social History Type Description Quantity Date Captured [...]
--- OUTSIDE RECORDS SUMMARY | 2025-01-20 05:00 | XMS_ITS | Continuity of Care Document ---
Author Organization [facility] Address [address] [address] [place] [address] Phone Care Team Providers Care Bedspread Cutter Hand Name Role Phone Lizet Steinberg Unavailable Unavailabl e Procedures Procedure Date Subsqt Hosp-da E&m Minr Compl 5 Init Hosp-da E&m Mod Severity Advance Directives Directive Yes / No Effective Date File Name No Information Encounters Encounter Description Practice Location Reason(s) For Visit Diagnoses Date Provider Providers Copied on Encounter [facility], [address] [address], [place], [place], [id number], [place] [phone] [facility] No Information 5 Greyson Hinds . [address] [place] [address], [id number] , [place]. [phone] Subsqt Hosp-da E&m Minr Compl [facility], [address] [address], [place], [place], [address], [phone] [facility] No Information 5 Greyson Hinds . [address] [facility], [address], [id number] , [place]. [phone] Referring Provider: Lizet Metz, [address] [place] [address], [address] . tel:[phone] Init Hosp-da E&m Mod Severity [facility], [address] [address], [place], [place], [address], tel:[phone] [facility] No Information 5 Enzo Thomas. [address] [facility], [address], [place], [place], [address] , [place]. [phone] Referring Provider: Axel Palomo MD R, [address], [place], [address]. tel:[phone] Family History Family Member Type Diagnosis Age At Onset No Information Payers Payer name Insurance type Covered libertarian ID Authoriza tion(s) Blue Cross [place] Blue BL [id number] Social History Type Description Quantity Date Captured [...]
--- OUTSIDE RECORDS SUMMARY | 2025-01-20 05:00 | XMS_ITS | Continuity of Care Document ---
Author Organization [facility] Address [address] [address] [place] [address] Phone Care Team Providers Care Hedis Review Nurse Name Role Phone Lizet Steinberg Unavailable Unavailabl e Procedures Procedure Date Subsqt Hosp-da E&m Minr Compl 5 Init Hosp-da E&m Mod Severity Advance Directives Directive Yes / No Effective Date File Name No Information Encounters Encounter Description Practice Location Reason(s) For Visit Diagnoses Date Provider Providers Copied on Encounter [facility], [address] [address], [place], [place], [id number], [place] [phone] [facility] No Information 5 Greyson Hinds . [address] [place] [address], [id number] , [place]. [phone] Subsqt Hosp-da E&m Minr Compl [facility], [address] [address], [place], [place], [address], [phone] [facility] No Information 5 Greyson Hinds . [address] [facility], [address], [id number] , [place]. [phone] Referring Provider: Lizet Metz, [address] [place] [address], [address] . tel:[phone] Init Hosp-da E&m Mod Severity [facility], [address] [address], [place], [place], [address], tel:[phone] [facility] No Information [address] [facility], [address], [place], [place], [id number] , [place]. [phone] Referring Provider: Axel Palomo MD R, [address], [place], [address]. tel:[phone] Family History Family Member Type Diagnosis Age At Onset No Information Payers Payer name Insurance type Covered libertarian ID Authoriza tion(s) Blue Cross [place] Blue BL [id number] Social History Type Description Quantity Date Captured [...]
--- OUTSIDE RECORDS SUMMARY | 2025-01-20 05:00 | XMS_ITS | Continuity of Care Document ---
Author Organization [facility] Address [address] [address] [place] [address] Phone Care Team Providers Care Manager Operations Research Name Role Phone Lizet Steinberg Unavailable Unavailabl e Procedures Procedure Date Subsqt Hosp-da E&m Minr Compl 5 Init Hosp-da E&m Mod Severity Advance Directives Directive Yes / No Effective Date File Name No Information Encounters Encounter Description Practice Location Reason(s) For Visit Diagnoses Date Provider Providers Copied on Encounter [facility], [address] [address], [place], [place], [address], [place] [phone] [facility] No Information 5 Greyson Hinds . [address] [place] [address], [id number] , [place]. [phone] Subsqt Hosp-da E&m Minr Compl [facility], [address] [address], [place], [place], [address], [phone] [facility] No Information 5 Greyson Hinds . [address] [facility], [address], [id number] , [place]. [phone] Referring Provider: Lizet Metz, [address] [place] [address], [address] . tel:[phone] Init Hosp-da E&m Mod Severity [facility], [address] [address], [place], [place], [address], tel:[phone] [facility] No Information 5 Enzo Thomas. [address] [facility], [address], [place], [place], [address] , [place]. [phone] Referring Provider: Axel Palomo MD R, [address], [place], [address]. tel:[phone] Family History Family Member Type Diagnosis Age At Onset No Information Payers Payer name Insurance type Covered republican ID Authoriza tion(s) Blue Cross [place] Blue BL [id number] Social History Type Description Quantity Date Captured [...]
--- OUTSIDE RECORDS SUMMARY | 2025-01-20 05:00 | XMS_ITS | Continuity of Care Document ---
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 [address] [place] [address], [id number] , [place]. [phone] Subsqt Hosp-da E&m Minr Compl [facility], [address] [address], [place], [place], [address], [phone] [facility] No Information 5 Greyson Hinds . [address] [facility], [address], [id number] , [place]. [phone] Referring Provider: Lizet Metz, [address] [place] [address], [address] . tel:[phone] Init Hosp-da E&m Mod Severity [facility], [address] [address], [place], [place], [address], tel:[phone] [facility] No Information 5 Enzo Thomas. [address] [facility], [address], [place], [place], [id number] , [place]. [phone] Referring Provider: Axel Palomo MD R, [address], [place], [address]. tel:[phone] Family History Family Member Type Diagnosis Age At Onset No Information Payers Payer name Insurance type Covered constitution party ID Authoriza tion(s) Blue Cross [place] Blue BL [id number] Social History Type Description Quantity Date Captured [...]
--- OUTSIDE RECORDS SUMMARY | 2025-06-23 13:00 | XMS_ITS | Encounter Summary ---
Author Organization [facility] Address [address] [place] [address] Phone Care Team Providers Care Carburetor Specialist Name Role Phone Votel, Axel PALMA Primary Care Provider [phone] Reason for Referral * Consultation (Routine) - Pending Review Specialty Diagnoses / Procedures Referred By Pastora piedra Referred To Contact Diagnoses History of acute kidney injury Urinary tract infection, not otherwise specified Hydroureteronephrosis Hoang Galvez MD [address] [place] [address] Phone: tel: fax: Referral ID Status Reason Start Date Expiration Date Visits Requested Visits Authorized [id number] Pending Review Specialty Services Required 06/23/2025 06/23/2026 1 1 Reason for Visit * Reason Comments CKD New Patient * Nephrology Services (Routine) - Closed Specialty Diagnoses / Procedures Referred By Patsora piedra Referred To Contact Nephrology Diagnoses Other specified postprocedural state Votel, MD Axel [address] [place] [id number] Phone: tel: fax: [facility] [address] [place] [address] Phone: tel: fax: Referral ID Status Reason Start Date Expiration Date Visits Re quested Visits Authorized [id number] Closed 05/18/2025 05/18/2026 1 1 Encounter Details Date Type Department Care Team (Late st Contact Info) Description 06/23/2025 2:00 PM CDT Office Visit [facility] [address] [place] [address] Hoang Galvez MD [address] [place] [address] History of acute kidney injury (Primary Dx); Urinary tract infection, not otherwise specified; Hydroureteronephrosi s Social History Tobacco Use Types Packs/Day Years Used Date Smoking Tobacco: Never Smokeless Tobacco: Never Tobacco Cessation:Counseling Given: Not Answered Alcohol Use Standard Drinks/Week Comments Not Currently 0 (1 standard drink = 0.6 oz pur e alcohol) Comments Unknown Sex and Gender Information Value Date Recorded Sex Assigned at Not on file Legal Sex Female 2:51 PM EDT Gender Identity Not on file Sexual Orientation Not on file documented as of this encounter Last Filed Vital Signs Vital Sign Reading Time Taken Comments Blood Pressure 152/89 06/23/2025 1:39 PM CDT Pulse 91 06/23/2025 1:39 PM CDT Temperature - - Respiratory Rate - - Oxygen Saturation - - Inhaled Oxygen Concentration - - Weight 64.4 kg (142 lb) 06/23/2025 1:39 PM CDT Height 165.1 cm (5' 5) 06/23/2025 1:39 PM CDT Body Mass Index 23.63 06/23/2025 1:39 PM CDT documented in this encounter Functional Status * BP Answer Date of Assessment Author 152/89 06/23/2025 1:39 PM EDT Dana Gross * Pulse Answer Date of Assessment Author 91 06/23/2025 1:39 PM EDT Dana Gross * Height Answer Date of Assessment Author 65 06/23/2025 1:39 PM EDT Dana Gross * Weight Answer Date of Assessment Author 2272 06/23/2025 1:39 PM EDT Dana Gross * BMI (Calculated) Answer Date of Assessment Author 23.6 06/23/2025 1:39 PM EDT Dana Gross * BP Location Answer Date of Assessment Author Left upper arm 06/23/2025 1:39 PM EDT Dana Gross * BP Answer Date of Assessment Author 152/89 06/23/2025 1:39 PM EDT Dana Gross * Height Answer Date of Assessment Author 65 06/23/2025 1:39 PM EDT Dana Gross * Weight Answer Date of Assessment Author 2272 06/23/2025 1:39 PM EDT Dana Gross * BMI (Calculated) Answer Date of Assessment Author 23.6 06/23/2025 1:39 PM EDT Dana Gross * BP Location Answer Date of Assessment Author Left upper arm 06/23/2025 1:39 PM EDT Dana Gross documented as of this encounter Patient Instructions * Patient Instructions* Dana Puente - 06/23/2025 2:00 PM CDT Images from the original note were not included. Referral to infection disease to manage recurrent UTIs. I'll send my note to Dr. Palomo. Your kidney function looks good per you last labs - this is excellent and no need to follow kidney/renal diet. Call us any time if you have questions but no regular nephrology follow up needed. At [facility], our goal is to work with you to provide the highest quality of care throughout your journey with kidney disease. In addition to yourself, your healthcare team includes Nephrologists, Advanced Practice Providers (APPs), Registered Nurses, Medical Assistants, and may include a Registered Dietitian who all work together to ensure your kidney care is well managed. How YOU help your healthcare team: Know your medications Keep an accurate list that includes the medication name, what dose you take, how frequently you take the medication and bring your bottles or list to every appointment! Complete your lab work as recommended by your provider This tells us how your kidneys are functioning, and often both blood and urine labs are needed It is important to complete pre-visit labs 1-2 weeks before your next appointment Recheck labs are also just as important and often necessary after a change in your medications or over a certain period of time to ensure your kidney function remains stable Monitor and keep track of your Blood Pressure The recommended goal is to keep your blood pressure less than 130/80 to help slow/delay the progression of kidney disease. Take blood pressure medications as directed. Other tips for healthy kidneys: If you smoke, strongly consider quitting Focus on good nutrition, exercise, and stay hydrated! If diabetic, monitor and maintain your blood sugar levels - aim blood sugar between 80 to 130, and a hemoglobin A1C of 7.0 or less Have your cholesterol checked. If interested, ask your provider for a referral to see our Renal Dietitian Avoid certain medications Examples: NSAIDS, certain cold medications that include ephedrine, phenylpropanolamine or pseudoephedrine (Sudafed, Actifed). When to call [facility]: Any new symptoms: Consistently elevated blood pressure greater than 140/90 with or without dizziness Increased leg swelling or unexplained weight gain greater than 3 to 5 pounds If another provider recommends you complete a CT scan or MRI with IV contrast. Let that provider know you follow nephrology and call us. It may be recommended that you complete the scan without contrast dye. When to go to the Emergency Room: If you get dehydrated, or have excessive nausea, headache or vomiting, you may need to get IV fluids. If you cannot pass your urine completely (empty your bladder) as this may be a sign of an Acute Injury to your Kidney. We are all here to provide you with the best renal care, and want you to feel free to call us when you have questions or concerns. Please refer to the address and telephone number listed on your After Visit Summary and choose the option to speak to your medical team. Thank you, From all of us at [facility] documented in this encounter Progress Notes * Hoang Galvez MD - 06/23/2025 2:00 PM CDT Images from the original note were not included. Patient: Alyssa Garcia Date of : 1950 Chart: [id number] PCP: Axel Palomo MD ([facility]) Referring Provider: Axel Palomo MD Date of Service: 06/23/25 Chief Complaint: Obstructive [place], now with chronic percutaneous nephrostomy tubes, intermittent UTIs Subjective: 74 y/o with HTN, CAD, hyperlipidemia, previous obstructive [place] (resolved with bilateralpercutaneous nephrostomy tubes) and cervical cancer here for follow up [place], nephrostomy tubes and UTIs. Alyssa is here with her sister. I met them when she was admitted at [facility] 01/05- 01/14/25 for [place] foundto be obstructive in etiology secondary to cervical mass. She'd had pelvic pain for some time, had CT 10/21/24 noting hydroureteronephrosis and creatinine was 1.7, then recheck in December up to 7.2 so she was transferred to [facility]. CT AP at that time showed new bilateral hydronephrosis, likely 2/2 central obstruction. A ngo was placed with minimal return of urine. Urology evaluated and recs for bilateral percutaneous nephrostomy tubes which were placed 01/08 with great improvement in Cr. TVUS showed moderately thickened endometrium. For new onset anemia and constipation GI did EGD and colonoscopy which were negative for etiology. D&C attempted in endo suite but sampling unable to be performed. Concern for underlying malignancy, vice president business development/onc consulted. Pelvic MRI demonstrated likely cervical primary with invasion of the posterior bladder and anterior mesorectal fascia. S/p exam under anesthesia and biopsy 01/13. Plan to follow up with vice president business development/onc for outpatient PET scan and given renal function had improved to follow with PCP. Also HCTZ was stopped, metoprolol changed to Coreg. 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 She's been treated with chemo, radiation and immunotherapy. She notes since discharge she's having trouble managing the perc neph tubes. She's contacted [facility] several times reportedly but no help and so she finally called [facility] and they are helpingarrange the PNT orders. She cannot see the tube insertion site and changing the dressing is not possible without help. She had home help 2x weekly, then decreased to 1x weekly it seems per Medicare and that this may go away altogether due to lack of Medicare support. She's had problems with UTIs intermittently. One time her sister here with her today had noted tremor and sent to the hospital. Infections have been Pseudomonas she tells me. Unfortunately she cannottake Cipro due to allergy. We discussed the difficulties with treating Pseudomonas infections, often needing two medications and/or IV antibx. She has not seen ID yet. She has her next tube exchange 07/27 and then urology follow up after that. She's generally feeling good today. She brought some recent labs from 06/10/25, creatinine great at 1.1 and Na 135, stable. Review of Systems: 10-point ROS negative other than as noted above in subjective section. * * * Assessment and Plan: 74 y/o with HTN, CAD, hyperlipidemia, previous obstructive [place] (resolved with bilateral percutaneous nephrostomy tubes) and cervical cancer here for follow up [place], nephrostomy tubes and UTIs. 1. J[place]: CT 10/21/24 noting hydroureteronephrosis and creatinine was 1.7, then recheck in December up to7.2 so she was admitted at [facility] 01/05-01/14/25 for [place] found to be obstructive in etiology secondary to cervical mass. CT AP at that time showed new bilateral hydronephrosis, likely 2/2 central obstruction. I saw her at [facility]. PNTs were inserted 01/07/25 and creatinine downtrended to 1.32 on 01/10/25 and our team signed off. Since her creatinine 04/26/25 was 1.2 and down to 1.1 on last labs that she brought in from 06/10/25. --Creatinine excellent now and suspect will remain good as long as she hydrates well and PNTs remain free from obstruction. --Continue intermittent renal labs with PCP --No need to follow kidney/renal diet. --Call us any time if you have questions but no regular nephrology follow up needed. 2. Percutaneous nephrostomy tubes: PNTs were inserted 01/07/25 for obstructive [place] with immediate relief of obstruction and improvement in renal function. Source of obstruction was mass related to below cervical cancer. Since discharge she's talked with [facility] who are now managing these ordersand exchanges she tells me. Unfortunately it seems the PNTs may be needed indefinitely. She cannot see the tube insertion site and changing the dressing is not possible without help, of which her home help days are decreasing. --She has her next tube exchange 07/27 and then urology follow up after that. --I fully support intermittent home nursing support for Alyssa given these tubes are not somethingshe can manage on her own. 3. UTIs: Since hospital discharge it seems she's had problems with UTIs intermittently. One time her sister here with her today had noted tremor and sent to the hospital. Infections have been Pseudomonas she tells me. Unfortunately she cannot take Cipro due to allergy. We discussed the difficultieswith treating Pseudomonas infections, often needing two medications and/or IV antibx. --Referral to ID locally who would be best to help manage/prevent complicated urinary tract infections, history of Pseudomonas. 4. Cervical cancer: TVUS showed moderately thickened endometrium. Pelvic MRI demonstrated likely cervical primary with invasion of the posterior bladder and anterior mesorectal fascia. S/p exam underanesthesia and biopsy 01/13. 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 She's been treated with chemo, radiation and immunotherapy. Management per vice president business development- onc and oncology. Return if symptoms worsen or fail to improve. Hoang Galvez MD [facility] The following portions of the patient's chart were reviewed in this encounter and updated as appropriate: Tobacco Allergies Meds Problems Med Hx Surg Hx Fam Hx Active problems: Patient Active Problem List Diagnosis Anemia Essential hypertension Acute urinary tract infection Atherosclerotic heart disease of [place] coronary artery without angina pectoris Hydroureteronephrosis Malignant neoplasm of cervix uteri (HCC) Melanoma in situ of right upper limb (HCC) History of acute kidney injury Urinary tract infection History of Present Illness Past Medical History: Diagnosis Date Coronary arteriosclerosis Hyperlipidemia Hypertension Other malignant neoplasm of unspecified site (HCC) Post-renal acute kidney injury (HCC) Squamous cell carcinoma of cervix (HCC) Urinary tract infection Past Surgical History: Procedure Laterality Date CERVICAL BIOPSY COLONOSCOPY ESOPHAGOGASTRODUODENOSCOPY PERCUTANEOUS NEPHROSTOMY Bilateral SKIN CANCER EXCISION Family History Problem Relation Age of Onset Heart disease Father 60 - 69 Social History Tobacco Use Smoking status: Never Smokeless tobacco: Never Substance Use Topics Alcohol use: Not Currently Drug use: Never Medications: Taking? Provider acetaminophen (TYLENOL) 325 MG tablet Alysha Dorsey MD Take 650 mg by mouth every 30 minutes as needed Aprepitant 130 MG/18ML emulsion Alysha Dorsey MD Infuse 130 mg into a venous catheter Patient not taking: Reported on 06/23/2025 carvedilol (COREG) 25 MG tablet Alysha Dorsey MD Take 25 mg by mouth in the morning and 25 mg in the evening. Patient not taking: Reported on 06/23/2025 cefdinir (OMNICEF) 300 MG capsule Alysha Dorsey MD Take 300 mg by mouth Patient not taking: Reported on 06/23/2025 Cholecalciferol 50 MCG (2000 UT) capsule Alysha Dorsey MD Take 2,000 Units by mouth in the morning. coenzyme Q-10 100 MG capsule Alysha Dorsey MD Take 100 mg by mouth in the morning. Hydrocortisone Sod Suc, PF, 100 MG reconstituted solution Alysha Dorsey MD Infuse 100 mg into a venous catheter Patient not taking: Reported on 06/23/2025 levoFLOXacin (LEVAQUIN) 500 MG tablet Alysha Dorsey MD Take 500 mg by mouth 1 (one) time each day Patient not taking: Reported on 06/23/2025 loperamide (IMODIUM) 2 MG capsule Alysha Dorsey MD Take 2 mg by mouth if needed Patient not taking: Reported on 06/23/2025 methylPREDNISolone sodium succinate (SOLU-Medrol) 2000 MG injection Alysha Dorsey MD Infuse 125 mg into a venous catheter Patient not taking: Reported on 06/23/2025 OLANZapine (ZyPREXA) 2.5 MG tablet Alysha Dorsey MD Take 2.5 mg by mouth once daily as needed Patient not taking: Reported on 06/23/2025 Dixon-3 Fatty Acids (Fish Oil Maximum Strength) 1200 MG capsule delayed-release Alysha Dorsey MD Take 1 capsule by mouth in the morning and 1 capsule in the evening. palonosetron (ALOXI) 0.25 MG/5ML injection Alysha Dorsey MD Infuse 0.25 mg into a venous catheter Patient not taking: Reported on 06/23/2025 Pembrolizumab 100 MG/4ML solution Alysha Dorsey MD Infuse 200 mg into a venous catheter polyethylene glycol (GLYCOLAX) 17 GM/SCOOP powder Alysha Dorsey MD Take 17 g by mouth once daily as needed Patient not taking: Reported on 06/23/2025 prochlorperazine (COMPAZINE) 10 MG tablet Alysha Dorsey MD Take 10 mg by mouth every 6 hours as needed Patient not taking: Reported on 06/23/2025 traZODone (DESYREL) 50 MG tablet Alysha Dorsey MD Take 50 mg by mouth in the morning. Allergies: Allergies Allergen Reactions Ciprofloxacin Hives, GI intolerance and Other (see comments) Calf pain Iodinated Contrast Media Other (see comments) Syncopal episode and generalized weakness loss of conciousness after previous diagnostic study loss of conciousness after previous diagnostic study Physical Exam: BP 152/89 (BP Location: Left upper arm, Patient Position: Sitting, BP Cuff Size: Adult) Pulse 91 Ht 5' 5 (1.651 m) Wt 142 lb (64.4 kg) BMI 23.63 kg/m?? CONSTITUTIONAL: calm and comfortable. EYES: anicteric sclerae, lids and conjunctivae normal. MOUTH: Oropharynx clear with moist mucus membranes, no lesions. HEMATOLOGIC/LYMPHATIC: No cervical or axillary lymphadenopathy. No bruising. RESPIRATORY: CTAB with no wheezing or respiratory distress, normal effort. CARDIOVASCULAR: Regular rate and rhythm, no significant leg edema. GASTROINTESTINAL: Nondistended, no guarding. : Bilat PNT's not examined PSYCHIATRIC: Alert and oriented x 3, not depressed. NEUROLOGIC: Cranial nerves II-XII grossly intact, sensation to light touch intact. MUSCULOSKELETAL: Four extremities with good range of motion, no contractures. INTEGUMENT: No rash or nodules Chemistry Lab Units 04/26/25 1216 01/14/25 0645 01/12/25 0640 01/11/25 1014 01/10/25 0701 01/09/25 0659 01/08/25 0648 01/07/25 0835 SODIUM mmol/L -- -- 138 138 140 141 139 129* POTASSIUM mmol/L -- -- 3.8 3.8 4 3.6 3.8 4.2 CO2 mmol/L -- -- 21* 22 23 24 24 18* CHLORIDE mmol/L -- -- 104 105 104 104 101 91* BUN mg/dL -- -- 25* 21 21 31* 49* 60* CREATININE mg/dL 1.21* 1.23* 1.27* 1.16* 1.32* 1.89* 4.54* 8.14* EGFR mL/min/BSA 47* 46* 44* 49* 42* 27* 10* 5* MAGNESIUM mg/dL -- -- -- -- 1.7 -- -- -- PHOSPHORUS mg/dL -- -- -- -- 3.4 -- 4.8* 5.1* CBC Lab Units 01/12/25 0640 01/11/25 1014 01/10/25 0858 HEMOGLOBIN g/dL 9.5* 9.7* 10.4* MCV fL 92 92 93 Urine results: No results found for: COLORU, CLARITYU, UASPECGRAVIT, JED, GLUCOSEU, KETUR, BILIRUBINU, UROBILINOGEN, PROTEINUR, BLOODURINE, NITRITEU, LEUKOCYTESU No results found for: RBCU, WBCU, BACTERIAU, SQUAMEPIU No results found for: PROTEUR, CREATUR, URPROTCREAT No lab exists for component: UASG, UAPH, UAGLU, UAKET, UABIL, UAPRO, UARBC, UALEUK,UANIT, UBACT, UEPI, UWBC, URBC I have performed a complete review of pertinent lab results. documented in this encounter Plan of Treatment Scheduled Referrals Name Type Priority Associated Diagnoses Order Schedule Ambulatory Referral to External Outpatient Referral Routine History of acute kidney injury Urinary tract infection, not otherwise specified Hydroureteronephros is Expected: 06/23/2025, Expires: 07/24/2026 documented as of this encounter Visit Diagnoses Diagnosis History of acute kidney injury- Primary Urinary tract infection, not otherwise specified Hydroureteronephrosis documented in this encounter Care Teams Carburetor Specialist Relationship Specialty Start Date End Date Votel, MD Axel [address] [place] [address] PCP - General Family Medicine 05/18/25 documented as of this encounter
--- OUTSIDE RECORDS SUMMARY | 2025-07-06 12:52 | XMS_ITS | Encounter Summary ---
Author Organization [facility] Address [address] [place] [address] Care Team Providers Care Yarn Spinner Name Role Phone Unavailable Primary Care Provider Unavailabl e Reason for Referral * Outpatient (Routine) - Authorized Specialty Diagnoses / Procedures Referred By Evaac t Referred To Contact Radiation Oncology Sonya Wade P.A.-C., M.STaylor [address] [place] [phone] Phone: tel: fax: Thelma Streeter M.D. [address] [place] [phone] Phone: tel: fax: Referral ID Status Reason Start Date Expiration Date V isits Requested Visits Authorized [id number] Authorized 07/06/2025 01/05/2027 1 1 Scheduling Instructions PET-CT prior at [facility]; please get images and report prior to visit * Outpatient (Routine) - Closed Specialty Diagnoses / Procedures Referred By Contac t Referred To Contact Radiation Oncology Thelma Streeter M.D. [address] [place] [phone] Phone: tel: fax: [facility] [place] [facility] Referral ID Status Reason Start Date Expiration Date Visits Re quested Visits Authorized [id number] Closed 04/28/2025 10/28/2026 1 1 Scheduling Instructions After PET/CT. Please write GYNE EXAM ROOM in notes, thanks! Reason for Visit * Outpatient (Routine) - Closed Specialty Diagnoses / Procedures Referred By Contkevin t Referred To Contact Radiation Oncology Thelma Streeter M.D. 200 [place] [address] Phone: tel: [facility] Referral ID Status Reason Start Date Expiration Date Visits Re quested Visits Authorized [id number] Closed 04/28/2025 10/28/2026 1 1 Encounter Details Date Type Department Care Team (Latest Contact Info) Description 07/06/2025 1:52 PM CDT - 07/06/2025 9:03 PM CDT Hospital Encounter Department of Radiation Oncology in [place], [place] [address] [place] [phone] Thelma Streeter M.D. 200 [place] [phone] Malignant Neoplasm Of Cervix (HCC) (Primary Dx) Social History Tobacco Use Types Packs/Day Years Used Date Smoking Tobacco: Never Smokeless Tobacco: Never Alcohol Use Standard Drinks/Week Comments Not Currently 0 (1 standard drink = 0.6 oz pure alcohol) Quit drinkinking in August after pelvic pain started. [facility] Utilities Answer Date Recorded In the past 12 months has [employer], gas, oil, or water [employer] threatened to shut off services in your [...] your living situation today? 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 Gender Identity Female 03/05/2025 6:51 AM CDT Sexual Orientation Straight 03/05/2025 6: 51 AM CDT documented as of this encounter Last Filed Vital Signs Vital Sign Reading Time Taken Comments Blood Pressure 116/75 07/06/2025 2:03 PM CDT Pulse 83 07/06/2025 2:03 PM CDT Temperature 35.9 C (96.6 F) 07/06/2025 2:03 PM CDT Respiratory Rate - - Oxygen Saturation - - Inhaled Oxygen Concentration - - Weight 66.4 kg (146 lb 6.2 oz) 07/06/2025 2:03 P M CDT Height - - Body Mass Index 24.99 04/11/2025 6:46 AM CDT documented in this encounter Medications [...] as of this encounter Progress Notes * Sonya Wade P.A.-C., M.S. - 07/06/2025 2:00 PM CDT SUBJECTIVE DIAGNOSIS 1. Malignant Neoplasm Of Cervix (HCC) SUPERVISED BY: Thelma Streeter M.D. HISTORY OF PRESENT ILLNESS Ms. Alyssa Garcia is a 74-year-old female with squamous cell carcinoma of the cervix. She completed radiation therapy on March 28, 2025 and vaginal cuff brachytherapy on April 11, 2025. Her oncologic history is as follows: Oncology History Malignant Neoplasm Of Cervix (HCC) [...] acute renal failure. She was admitted to [facility] and eventually discharged on January 14. [...] 01/07/2025 Surgery and Procedures Bilateral nephrostomy tube placement. 01/07/2025 Surgery and Procedures Colonoscopy demonstrated normal colonic mucosa with random biopsies; poor preparation and recommended repeat colonoscopy or Cologaurd in 1 year. Upper GI negative. 01/10/2025 Critical Imaging MR pelvis FINDINGS: Uterus [...] IMRT Goal: Curative Planned Treatment Start Date: 02/21/202502/2025 - 05/24/2025 Chemotherapy Concurrent weekly carboplatin and pembrolizumab q 3 weeks x 5 cycles. 03/29/2025 Critical Imaging MR Pelvis IMPRESSION: At least partial positive treatment response. Prior imaging from 01/10/2025 not acquired on cervicalaxis results in suboptimal comparison. There is abnormal [...] rectum. No abnormal lymph nodes are identified. 03/30/2025 - 04/11/2025 Radiation Therapy Vaginal cuff brachytherapy x 4 fractions. 04/29/2025 Other External nephrostomy tube exchange. 06/13/2025 - Chemotherapy Pembrolizumab 400mg q 6 weeks started. 06/30/2025 Critical Imaging PET/CT IMPRESSION: 1. Decreased size of a faintly FDG avid 3.2 x 1.9 cm cervical mass, representing posttreatment change. There is also resolution of FDG uptake at sites of previously imaged disease extension in the uterus and vaginal canal, also representing posttreatment change. 2. New cluster of mildly to moderately FDG avid retroperitoneal para-aortic and aortocaval jody stations may be inflammatory or metastatic, in the setting of immunotherapy. 3. New faintly FDG avid mesenteric stranding, adjacent to the retroperitoneal lymphadenopathy, and new faint FDG uptake associated with ill- defined ventral peritoneal nodularity in the ventral mid to lower abdominal wall, as nonspecific. Differential considerations include faint FDG uptake from new mesenteric/peritoneal metastases, versus inflammatory change,in the setting of immunotherapy. 4. Mildly to moderately FDG avid subpleural ground-glass opacity measuring up to 7.1 cm in the posterolateral left lower lobe with reverse halo sign likely represents organizing pneumonia. This may be related to immunotherapy. 5. New small left pleural effusion. 6. New mildly FDG avid left hilar node is likely inflammatory. 08/05/2025 Surgery and Procedures Anticipate external nephrostomy tube exchange in July. INTERVAL HISTORY: The patient was seen and examined today with Dr. Streeter. The patient reports doing about the same overall. She reports resolution of previous pelvic discomfort; however, she does have occasional low central abdominal discomfort. This discomfort comes and goes and is rated 3/10 in severity. She is not able to relate it to any specific causes such as eating or bowel movements. She also has occasional back pain, located bilateral in the nephrostomy tube areas. This pain comes and goes and is rated 3/10 in severity as well. She reports averaging a bowel movement every 1-3 days with taking Senna. She denies rectal bleeding. She denies vaginal discharge or bleeding. She is using the vaginal dilator every third day and states that she is almost up to size #5. She denies shortness of breath, cough, or recent fever. REVIEW OF SYSTEMS Review of systems was negative except as documented above. PATIENT REPORTED SYMPTOM SCREEN: FATIGUE (Scale: 0 = no fatigue; 10 = worst fatigue you can imagine): 3 PAIN (Scale: 0 = no pain; 10 = worst pain you can imagine): 3 OVERALL QUALITY OF LIFE (Scale: 0 = as bad as can be; 10 = as good as can be): 5 OBJECTIVE BP 116/75 (BP Location: Right arm, Patient Position: Sitting, Cuff Size: Regular) Pulse 83 Temp(!) 35.9 ??C (Temporal) Wt 66.4 kg BMI 24.99 kg/m?? PHYSICAL EXAMINATION General: Patient is alert and oriented and in no apparent distress. The patient is here today with her sister. Heart: Regular rate and rhythm. Lungs: Clear to auscultation bilaterally. ASSESSMENT / PLAN #1 Stage BRICE (cT4, cN0, cM0) squamous cell carcinoma of the cervix #2 Concurrent chemoradiotherapy with immunotherapy (weekly Carboplatin and every 3 week Pembrolizumab) to cervix and regional lymph nodes completed on March 28, 2025 #3 Status post 4 high dose rate brachytherapy boost completed on April 11, 2025 #4 Initiated adjuvant Pembrolizumab q 6 weeks on June 13, 2025 The patient is doing about the same overall, now three months from the completion of radiation therapy. She had a recent PET-CT scan performed that demonstrated decreased size of the cervical mass and resolution of previously imaged disease extension. There were other areas of FDG avidity including retroperitoneal para-aortic and aortocaval jody stations, mesenteric stranding, a subpleural ground-glass opacity in the posterolateral left upper lobe, and a left hilar node that could be inflammatory/infectious. The patient is receiving pembrolizumab every 6 weeks under the care of Dr. Almanzar. Dr. Streteer recommends obtaining a baseline CT scan of the abdomen with IV contrast at this time. Dr. Streeter then recommends obtaining a repeat PET-CT scan in 3 months. The patient would like the imaging performed at [facility] and orders will be placed. Of note, the patient confirmed that she does not have an allergy to Iohexol and she states that she can receive IV contrast for CT scans. The patient is scheduled for bilateral nephrostomy tube exchange and a follow-up visit with Jessie Borden C.N.P. in Urology in [place] on August 05, 2025. We reviewed Jessie's previous documentation from April where she recommended further evaluation of disease to determine if conversion to ureteral stents is feasible. Dr. Streeter will send Jessie a message for review of the patient's recent PET-CT sc an to see if ureteral stents are an option for the patient at this time. The patient is continuing treatment under the care of Dr. Almanzar and has her next treatment and visit with Dr. Almanzar in early July. She was recommended to discuss the other PET-CT scan findings with Dr. Almanzar as there was comment that some of the changes could be related to immunotherapy. We will order for a return visit to be scheduled here in 3 months after the patient's next PET-CT imaging. Dr. Streeter also met with the patient today, please see her attestation for details. The patient will contact us with questions or concerns. She verbally expressed her understanding of the plan. EDUCATION: Ready to learn, no apparent learning barriers were identified; learning preferences include listening. Explained diagnosis and treatment plan; patient expressed understanding of the content. I personally spent 35 minutes in care of the patient today. Time includes both non face to face andface to face patient care. Signed by: Sonya Wade P.A.-C., M.S. 07/06/2025 3:49 PM CDT [facility] [address] [place] [address] Cosigned by Thelma Streeter M.D. at 07/06/2025 9:02 PM CDT Associated attestation - Thelma Streeter M.D. - 07/06/2025 9:02 PM CDT I saw and evaluated the patient and participated in the sherman portions of the service as noted below.Please see Ms. Sonya Wade PA-C, MS note for additional details. On exam she appears well. She has external nephrostomy tubes in place. Abdominal exam was normal with good bowel sounds. Soft abdomen, non-tender and non- distended. No inguinal adenopathy. Pelvic exam was performed with her sister as craft demonstrator. Normal external genitalia. Her vagina appeared normal,but was narrow superiorly. I could see some white scar tissue. On bimanual and rectovaginal exam the cervix felt firm. No masses in the septum. No blood on my gloved fingers upon exam. Given the PET/CT findings, we will obtain a CT abdomen to get a better look at the para-aortic and aorto-caval nodes. I think they are likely inflammatory. The cervix looks very good on the PET/CT. She will discuss the lung findings with Dr. Almanzar as I assume this is a healing pneumonia. I will check with her Jessie Borden APRN to see if her external nephrostomy tubes can be internalized to stents. I will obtain another PET/CT in 3 months. I also provided her with an educational pamphlet on Kegel exercises as she states that she can have some urinary leakage if urine gets to her bladder. She has not noticed urine per vagina. I did share her imaging with Dr. Cunningham. Their questions were answered; they were comfortable with this plan. Thelma Streeter M.D., 07/06/2025 documented in this encounter Plan of Treatment Upcoming Encounters Date Type Department Care Team (Late st Contact Info) Description 10/12/2025 11:00 AM SEAL EXTRUSION OPERATOR Appointment Department of Radiation Oncology in [place], [place] [address] [place] [phone] Thelma Streeter M.D. [address] [place] [address] Scheduled Referrals Name Type Priority Associated Diagnoses Order Schedule Radiation Oncology office visit (clinic) Outpatient Referral Routine Once for 1 Occurrences starting 07/06/2025 until 07/06/2025 Radiation Oncology office visit (clinic) Outpatient Referral Routine Expected: 10/06/2025, Expires: 10/06/2026 documented as of this encounter Visit Diagnoses Diagnosis Malignant Neoplasm Of Cervix (HCC)- Primary documented in this encounter
[2025-08-07] VITALS (13 sets, daily range): BP systolic 129–140; BP diastolic 73–82; PULSE 94–97; RESP 10–27; TEMP 37; O2SAT 90–94
--- OUTSIDE RECORDS SUMMARY | 2025-08-07 22:32 | XMS_ITS ---
Author Name Interface, [id number] lity Address [address] [address] [facility] Address [address] [address] Support Name Relationship Address Phone Jesse Wei [...] Notes Section * Palliative Care Initial Visit Patient Name: ALYSSA PULIDO Date of : 1950 Attending Physician: Sarah Coto (Gynecological/Oncology) Date of Service: 05/10/2025 Referred by:?? Dr. Coto PALLIATIVE CARE INITIAL??VISIT Chief Complaint (Palliative Care) Establish Care Oncology Diagnosis Stage IV SCC of the cervix History of Present Illness (Palliative Care) This visit was provided via telemedicine with the use of real-time audio and video via [employer]. ??Alyssa has provided written consent to conduct this visit via telemedicine. ??The patient participated in this visit, noted that her home health RN was in the room however he/she did not participate in the visit. ??The patient is located in their home and I, Dr. Carol Branham am located in [facility].?? History today was provided by??chart review and patient report.?? Cancer diagnosis began with development of acute renal failure.?? Admitted to [facility] with this December 2024. Found to have cervical mass and bilateral hydronephrosis.?? Biopsy confirmed SCC, PET showed disease extension into uterus, bladder wall. Completed concurrent chemoradiation with immunotherapy, followed by brachytherapy. Admitted with complicated UTI earlier this month.?? Treatments have been through her local Oncology team and [facility].?? Anticipates a follow up PET in June.?? Social History (Palliative Care) Living Situation:??Lives with her who is older.? Support System:??Friends, relatives.?? Home health is following.?? 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 Family History Not discussed.?? Past Medical and Surgical History (Palliative Care) Stage IV Cervical Cancer HTN Current Medications ? Per outside Oncology note,?? Carvedilol Loperamide Miralax Compazine Trazodone Allergies Cipro Review of Systems (Palliative Care) Pain 3 The only pain she currently gets is at her nephrostomy tubes.?? She will take Tylenol at times for this, [id number] or [id number].?? Feels that currently it is not severe enough to need Tylenol.?? Neuropathy Sleep Sleep is good.?? Drowsiness and Fatigue Energy is low, napping off and on.?? Nausea Patient denies any issues with nausea. Appetite Focusing on eating smaller, frequent meals.?? Bowels Has been constipated, more loose stools now with the antibiotics.?? Dyspnea Mood Physical Exam (Palliative Care) General Appearance:??Patient is awake, alert and oriented, in no acute distress. ??Patient is dressed and well-groomed, well-nourished with no evidence of self-neglect. HEENT: ?? Sclerae anicteric. Respiratory:??Normal work of breathing with conversational speech. Neuro: ?? Alert and oriented, no facial asymmetry. Psych: ?? The patient is alert, attentive, and oriented. Speech is clear and fluent with good comprehension. ??Insight and judgment appropriate to situation. Comments on Pertinent Labs/Tests: Last WBC was normal, Hgb 8.8, Plts normal, GFR 43, AST/ALT normal.?? Assessment and Plan (Palliative Care) Alyssa is a 74 year old with metastatic cervical cancer whose cancer directed treatments are currently at the guidance of her local Oncologist and [facility].?? Please see below.?? Current Decision Making Capacity Demonstrates ability to understand illness, treatment options, make an informed decision. Goals of Care Anticipates having scans in the next month or so to better understand her cancer status.?? Advanced Care Planning (Palliative Care) 1.?Healthcare directive:?? Not on file.?? Psycho-social/Emotional/Spiritual Support Supported by home health and multiple loved ones.?? Symptom Management Pain: Nephrostomy tube related.?? Has home health assisting with dressing changes and monitoring.?? -Discussed strategy to take 2xTylenol Arthritis at bedtime if sleep positions are limited by the tubes.?? Summary of Changes This Visit See above.?? Return appointment as needed. Reviewed our recommendation to continue to work with the teams currently managing her cancer for ongoing symptom/support related concerns.?? Should Alyssa resume care within [facility], we would be happy to see her in follow up to screen for further care needs.?? Total of??32??minutes were spent on this encounter, including video visit from??954AM - 1016AM??andremaining time spent in documentation, chart review.?? Thank you for including me in caring for ALYSSA Carol Branham MD Physician [phone] cc:Axel Palomo MD Electronically signed by Carol Branham MD 05/14/2025 09:56 CDT
--- OUTSIDE RECORDS SUMMARY | 2025-08-07 22:33 | XMS_ITS | Encounter Summary ---
Author Organization [facility] Address [address] [place] [address] Care Team Providers Care Street Openings Inspector Name Role Phone Unavailable Primary Care Provider Unavailabl e Encounter Details Date Type Department Care Team (Late st Contact Info) Description 07/19/2025 Clinical Communication Department of Radiation Oncology in [place], [place] [address] [place] [phone] Thelma Streeter M.D. [address] [place] [address] Social History Tobacco Use Types Packs/Day Years Used Date Smoking Tobacco: Never Smokeless Tobacco: Never Alcohol Use Standard Drinks/Week Comments Not Currently 0 (1 standard drink = 0.6 oz pure alcohol) Quit drinkinking in August after pelvic pain started. 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 [address] [place] [address] documented as of this encounter Visit Diagnoses Not on filedocumented in this encounter
--- OUTSIDE RECORDS SUMMARY | 2025-08-07 22:33 | XMS_ITS ---
Author Name Interface, [id number] lity Address [address] [address] [facility] Address [address] [address] Support Name Relationship Address Phone Jesse Wei [...] use of real-time audio and video via [employer]. ??Alyssa has provided written consent to conduct this visit via telemedicine. ??The patient participated in this visit, noted that her home health RN was in the room however he/she did not participate in the visit. ??The patient is located in their home and I, Dr. Carol Branham am located in [facility].?? History today was provided by??chart review and patient report.?? Cancer diagnosis began with development of acute renal failure.?? Admitted to [place] with this December 2024. Found to have cervical mass and bilateral hydronephrosis.?? Biopsy confirmed SCC, PET showed disease extension into uterus, bladder wall. Completed concurrent chemoradiation with immunotherapy, followed by brachytherapy. Admitted with complicated UTI earlier this month.?? Treatments have been through her local Oncology team and [place].?? Anticipates a follow up PET in June.?? [...] will take Tylenol at times for this, 5f451yb or 3z068fi.?? Feels that currently it is not severe [...] the guidance of her local Oncologist and [place].?? Please see below.?? Current Decision Making Capacity [...] related concerns.?? Should Alyssa resume care within [facility], we would be happy to see her in follow up to screen for further care needs.?? Total of??32??minutes were spent on this encounter, including video visit from??954AM - 1016AM??andremaining time spent in documentation, chart review.?? Thank you for including me in caring for ALYSSA Carol Branham MD Physician [phone] cc:Axel Palomo MD Electronically signed by Carol Branham MD 05/14/2025 09:56 CDT
--- OUTSIDE RECORDS SUMMARY | 2025-08-07 22:33 | XMS_ITS | Clinical Summary ---
[facility] Address [address], [place] [address] Care Team Providers Care Administrative Associate Name Role Phone Jorge Luis Cortez DO Primary Care Provider [phone] Source Comments You are receiving this document as you are listed as the primary care provider,follow-up provider, or the patient has been referred to you for consultation.This is in compliance with the Medicare and[facility] EHR Incentive Program,which states Providers who transition their patient to another setting of careor provider of care or refers their patient to another provider of care shouldprovide summary care record for each transition of care or referral. De Correspondent Allergies No known active allergies Medications hydroCHLOROthia [...] topic Insurance MEDICARE MANAGED CARE BCBS BCBS NEZ [employer] BLUE Care Teams Administrative Associate Relationship Specialty Start Date End Date Jorge Luis Cortez DO [address] [place] [address] PCP - General Family Practice 12/22/19
--- OUTSIDE RECORDS SUMMARY | 2025-08-07 22:34 | XMS_ITS ---
Author Name Interface, [id number] lity Address [address] [address] [facility] Address [address] [address] Support Name Relationship Address Phone Jesse Wei [...] use of real-time audio and video via [employer]. ??Alyssa has provided written consent to conduct this visit via telemedicine. ??The patient participated in this visit, noted that her home health RN was in the room however he/she did not participate in the visit. ??The patient is located in their home and I, Dr. Carol Branham am located in [facility].?? History today was provided by??chart review and patient report.?? Cancer diagnosis began with development of acute renal failure.?? Admitted to [place] with this December 2024. Found to have cervical mass and bilateral hydronephrosis.?? Biopsy confirmed SCC, PET showed disease extension into uterus, bladder wall. Completed concurrent chemoradiation with immunotherapy, followed by brachytherapy. Admitted with complicated UTI earlier this month.?? Treatments have been through her local Oncology team and [place].?? Anticipates a follow up PET in June.?? [...] will take Tylenol at times for this, 8m118yr or 3c080ig.?? Feels that currently it is not severe [...] the guidance of her local Oncologist and [place].?? Please see below.?? Current Decision Making Capacity [...] related concerns.?? Should Alyssa resume care within [facility], we would be happy to see her in follow up to screen for further care needs.?? Total of??32??minutes were spent on this encounter, including video visit from??954AM - 1016AM??andremaining time spent in documentation, chart review.?? Thank you for including me in caring for ALYSSA Carol Branham MD Physician [phone] cc:Axel Palomo MD Electronically signed by Carol Branham MD 05/14/2025 09:56 CDT
--- OUTSIDE RECORDS SUMMARY | 2025-08-07 22:35 | XMS_ITS ---
Author Name Interface, [id number] lity Address [address] [address] [facility] Address [address] [address] Support Name Relationship Address Phone Jesse Wei [...] use of real-time audio and video via [employer]. ??Alyssa has provided written consent to conduct this visit via telemedicine. ??The patient participated in this visit, noted that her home health RN was in the room however he/she did not participate in the visit. ??The patient is located in their home and I, Dr. Carol Branham am located in [facility].?? History today was provided by??chart review and patient report.?? Cancer diagnosis began with development of acute renal failure.?? Admitted to [place] with this December 2024. Found to have cervical mass and bilateral hydronephrosis.?? Biopsy confirmed SCC, PET showed disease extension into uterus, bladder wall. Completed concurrent chemoradiation with immunotherapy, followed by brachytherapy. Admitted with complicated UTI earlier this month.?? Treatments have been through her local Oncology team and [place].?? Anticipates a follow up PET in June.?? [...] will take Tylenol at times for this, 4x537yp or 0y698yo.?? Feels that currently it is not severe [...] the guidance of her local Oncologist and [place].?? Please see below.?? Current Decision Making Capacity [...] related concerns.?? Should Alyssa resume care within [facility], we would be happy to see her in follow up to screen for further care needs.?? Total of??32??minutes were spent on this encounter, including video visit from??954AM - 1016AM??andremaining time spent in documentation, chart review.?? Thank you for including me in caring for ALYSSA Carol Branham MD Physician [phone] cc:Axel Palomo MD Electronically signed by Carol Branham MD 05/14/2025 09:56 CDT
--- OUTSIDE RECORDS SUMMARY | 2025-08-07 22:36 | XMS_ITS ---
Author Name Interface, [id number] lity Address [address] [address] [facility] Address [address] [address] Support Name Relationship Address Phone Jesse Wei [...] use of real-time audio and video via [employer]. ??Alyssa has provided written consent to conduct this visit via telemedicine. ??The patient participated in this visit, noted that her home health RN was in the room however he/she did not participate in the visit. ??The patient is located in their home and I, Dr. Carol Branham am located in [facility].?? History today was provided by??chart review and patient report.?? Cancer diagnosis began with development of acute renal failure.?? Admitted to [place] with this December 2024. Found to have cervical mass and bilateral hydronephrosis.?? Biopsy confirmed SCC, PET showed disease extension into uterus, bladder wall. Completed concurrent chemoradiation with immunotherapy, followed by brachytherapy. Admitted with complicated UTI earlier this month.?? Treatments have been through her local Oncology team and [place].?? Anticipates a follow up PET in June.?? [...] will take Tylenol at times for this, 8a116ma or 6f331tm.?? Feels that currently it is not severe [...] the guidance of her local Oncologist and [place].?? Please see below.?? Current Decision Making Capacity [...] related concerns.?? Should Alyssa resume care within [facility], we would be happy to see her in follow up to screen for further care needs.?? Total of??32??minutes were spent on this encounter, including video visit from??954AM - 1016AM??andremaining time spent in documentation, chart review.?? Thank you for including me in caring for ALYSSA Carol Branham MD Physician [phone] cc:Axel Palomo MD Electronically signed by Carol Branham MD 05/14/2025 09:56 CDT
--- OUTSIDE RECORDS SUMMARY | 2025-08-07 22:36 | XMS_ITS ---
Author Name Interface, [id number] lity Address [address] [address] [facility] Address [address] [address] Support Name Relationship Address Phone Jesse Wei [...] use of real-time audio and video via [employer]. ??Alyssa has provided written consent to conduct this visit via telemedicine. ??The patient participated in this visit, noted that her home health RN was in the room however he/she did not participate in the visit. ??The patient is located in their home and I, Dr. Carol Branham am located in [facility].?? History today was provided by??chart review and patient report.?? Cancer diagnosis began with development of acute renal failure.?? Admitted to [place] with this December 2024. Found to have cervical mass and bilateral hydronephrosis.?? Biopsy confirmed SCC, PET showed disease extension into uterus, bladder wall. Completed concurrent chemoradiation with immunotherapy, followed by brachytherapy. Admitted with complicated UTI earlier this month.?? Treatments have been through her local Oncology team and [place].?? Anticipates a follow up PET in June.?? [...] will take Tylenol at times for this, 7m715in or 8w285qh.?? Feels that currently it is not severe [...] the guidance of her local Oncologist and [place].?? Please see below.?? Current Decision Making Capacity [...] related concerns.?? Should Alyssa resume care within [facility], we would be happy to see her in follow up to screen for further care needs.?? Total of??32??minutes were spent on this encounter, including video visit from??954AM - 1016AM??andremaining time spent in documentation, chart review.?? Thank you for including me in caring for ALYSSA Carol Branham MD Physician [phone] cc:Axel Palomo MD Electronically signed by Carol Branham MD 05/14/2025 09:56 CDT
--- OUTSIDE RECORDS SUMMARY | 2025-08-07 22:36 | XMS_ITS ---
Author Name Interface, [id number] lity Address [address] [address] [facility] Address [address] [address] Support Name Relationship Address Phone Jesse Wei [...] of real-time audio and video via [employer]. ??Alyssa has provided written consent to conduct this visit via telemedicine. ??The patient participated in this visit, noted that her home health RN was in the room however he/she did not participate in the visit. ??The patient is located in their home and I, Dr. Carol Branham am located in [facility].?? History today was provided by??chart review and patient report.?? Cancer diagnosis began with development of acute renal failure.?? Admitted to [place] with this December 2024. Found to have cervical mass and bilateral hydronephrosis.?? Biopsy confirmed SCC, PET showed disease extension into uterus, bladder wall. Completed concurrent chemoradiation with immunotherapy, followed by brachytherapy. Admitted with complicated UTI earlier this month.?? Treatments have been through her local Oncology team and [place].?? Anticipates a follow up PET in June.?? [...] will take Tylenol at times for this, 4q978gr or 4o011ru.?? Feels that currently it is not severe [...] the guidance of her local Oncologist and [place].?? Please see below.?? Current Decision Making Capacity [...] concerns.?? Should Alyssa resume care within [facility], we would be happy to see her in follow up to screen for further care needs.?? Total of??32??minutes were spent on this encounter, including video visit from??954AM - 1016AM??andremaining time spent in documentation, chart review.?? Thank you for including me in caring for ALYSSA Carol Branham MD Physician [phone] cc:Axel Palomo MD Electronically signed by Carol Branham MD 05/14/2025 09:56 CDT
--- NOTE | 2025-08-07 22:37 | ED.WEAKNESS ---
HPI - Weakness General Time Seen by Provider: 22:25 Date Seen: 08/07/25 Chief complaint: Altered Mental Status Stated complaint: stroke Time Seen by Provider: 08/07/25 22:36 Source: patient, family and EMS Mode of arrival: EMS History of Present Illness HPI Narrative: Alyssa is a 74 yo female who Presents to the emergency department from home by EMS for evaluation of stroke-like symptoms. Code stroke was called prior to arrival. Upon arrival patient was taken directly from ambulance bay to CT. Per EMS patient's last known normal was around 9:00 p.m. however due reports generalized weakness worsening over the past 24 hours. Patient has a history of metastatic cervical cancer, history of recent DVT, pulmonary embolism, currently on anticoagulation with levonox BID. family noted around 9:00 p.m. she slumped over to the ground. Patient reports she was going to give herself her injection of lovenox when she slumped over. Patient reports generalized weakness over the past 24 hours but no localized/focal weakness.EMS reports patient did not lose consciousness, did not hit her head however did note left-sided weakness in her upper and lower extremity along with right eye gaze in facial droop. Patient denies any fever, chills, chest pain, shortness of breath, abdominal pain, vision changes, no other complaints. Per chart review miladys recently had Admission for DVT along with pulmonary emboli initially started on heparin 07/15/25and was discharged on Eliquis 07/16/25. patient later returned to the emergency department on 07/17/2025 with hypoxia and repeat imaging noted increased clot burden with is indication of right heart strain sweat that time she was treated with a half dose of thrombolytics and transfer to [place] Related Data Home Medications ?Medication ?Instructions ?Recorded ?Confirmed coenzyme Q10 100 mg capsule (Co 100 mg PO DAILY 02/10/25 08/01/25 Q-10) omega-3 fatty acids-fish oil 360 1 cap PO DAILY 02/10/25 08/01/25 mg-1,200 mg capsule trazodone 50 mg tablet 50 mg PO HS 03/14/25 08/01/25 carvedilol 25 mg tablet 25 mg PO BID 04/28/25 08/01/25 polyethylene glycol 3350 17 gram 17 g PO DAILY 07/16/25 08/01/25 oral powder packet sennosides 8.6 mg-docusate sodium 1 tab-cap PO BID 07/16/25 08/01/25 50 mg tablet (Senna with Docusate Sodium) enoxaparin 60 mg/0.6 mL 60 mg subcut Q12H 08/01/25 08/01/25 subcutaneous syringe (Lovenox) Allergies Allergy/AdvReac Type Severity Reaction Status Date / Time calcium chloride Allergy Severe nausea/vomi Verified 08/07/25 23:48 tting fentanyl Allergy Severe nausea/vomi Verified 08/07/25 23:48 tting ciprofloxacin (From Cipro) AdvReac Intermediate Diarrhea, Verified 08/07/25 23:48 calf cramping Review of Systems Status of ROS: Reports: unobtainable due to medical condition ( Stroke-like symptoms) PFSH PFS Medical History Lung consolidation ?J18.1 - Lobar pneumonia, unspecified organism (ICD-10) Complicated urinary tract infection ?N39.0 - Urinary tract infection, site not specified (ICD-10) Ureteral obstruction ?N13.5 - Crossing vessel and stricture of ureter without hydronephrosis (ICD-10) Squamous cell carcinoma of cervix ?C53.9 - Malignant neoplasm of cervix uteri, unspecified (ICD-10) Hyponatremia ?E87.1 - Hypo-osmolality and hyponatremia (ICD-10) Pure hypercholesterolemia ?E78.00 - Pure hypercholesterolemia, unspecified (ICD-10) Essential hypertension ?I10 - Essential (primary) hypertension (ICD-10) Surgical History H/O insertion of nephrostomy tube ?Z98.890 - Other specified postprocedural states (ICD-10) Social History What is your current living situation?: I presently have a place to live Problems where you live: no known problems Problems where you live details: N/A In the past 12 months, utilities in danger of being shut off: no In past 12 months, lack of transportation kept you from medical appts, meetings, work, or getting things needed for daily living: no In the past 12 mos, have been you worried that your food would run out before you had money to buy more?: never true In the past 12 mos, the food you bought just didn't last and you didn't have money to buy more?: never true Highest level of school completed/degree received: Bachelor's degree Smoking Status: Never smoker Second hand tobacco smoke exposure: No How often do you have a drink containing alcohol: never AUDIT-C Alcohol total score: 0 Non-prescribed substance use: denies use Caffeine: Yes (1c/day) How often does anyone, including family, friends and others, physically hurt you: never How often does anyone, including family, friends and others, insult or talk down to you: never How often does anyone, including family, friends and others, threaten you with harm: never How often does anyone, including family, friends and others, scream or curse at you: never Are you using contraception or practicing any form of control: No service: No Exam Narrative: Exam Narrative: General: Afebrile, no distress HEENT: Normocephalic, atraumatic, PERRL, eyes deviated towards right, conjunctiva normal. MMM Neck: non-tender, supple Cardio: regular rate. regular rhythm Resp: Normal work of breathing, no respiratory distress, lungs clear bilaterally, no wheezing, rhonchi, rales Chest/Back: no visual signs of trauma, no midline tenderness, no CVA tenderness Abdomen: soft, non distension, no tenderness, no peritoneal signs Neuro: awake, alert, and fully oriented. +facial droop, +left sided weakness upper extremity 3/5, left lower extremity 4/5 grossly intact. Sensation intact MSK: no deformities. Normal range of motion Integumentary/Skin: no rash visualized, normal color Psych: normal affect, normal behavior Const: Vital Signs, click to edit/add: Vital Signs - 24 hr 08/07/25 22:54 08/07/25 22:55 08/07/25 22:56 Temperature 98.6 F Pulse Rate Pulse Rate [Pulse Oximeter] 97 Respiratory Rate 20 15 22 Blood Pressure 140/76 H Blood Pressure [Le ft Forearm] 132/74 Pulse Oximetry 91 Oxygen Delivery Me thod Room Air 08/07/25 22:57 08/07/25 22:59 08/07/25 23:00 Temperature Pulse Rate 97 94 Pulse Rate [Pulse Oximeter] Respiratory Rate 18 15 Blood Pressure 132/74 Blood Pressure [Le ft Forearm] Pulse Oximetry 92 93 92 Oxygen Delivery Me thod 08/07/25 23:02 08/07/25 23:15 08/07/25 23:17 Temperature Pulse Rate 95 95 94 Pulse Rate [Pulse Oximeter] Respiratory Rate 16 10 L 22 Blood Pressure 138/73 140/78 H Blood Pressure [Le ft Forearm] Pulse Oximetry 90 93 93 Oxygen Delivery Me thod 08/07/25 23:30 08/07/25 23:32 08/07/25 23:45 Temperature Pulse Rate 95 95 Pulse Rate [Pulse Oximeter] Respiratory Rate 22 21 27 H Blood Pressure 133/82 Blood Pressure [Le ft Forearm] Pulse Oximetry 94 93 Oxygen Delivery Me thod 08/07/25 23:47 08/08/25 00:00 08/08/25 00:02 Temperature Pulse Rate 95 94 Pulse Rate [Pulse Oximeter] Respiratory Rate 22 23 22 Blood Pressure 129/81 142/86 H Blood Pressure [Le ft Forearm] Pulse Oximetry 92 92 Oxygen Delivery Me thod 08/08/25 00:02 08/08/25 00:02 08/08/25 00:15 Temperature Pulse Rate 94 94 94 Pulse Rate [Pulse Oximeter] Respiratory Rate 22 22 19 Blood Pressure 142/86 H 142/86 H Blood Pressure [Le ft Forearm] Pulse Oximetry 92 92 93 Oxygen Delivery Me thod 08/08/25 00:17 08/08/25 00:30 08/08/25 00:31 Temperature Pulse Rate 95 94 93 Pulse Rate [Pulse Oximeter] Respiratory Rate 22 24 22 Blood Pressure 149/79 H 144/87 H Blood Pressure [Le ft Forearm] Pulse Oximetry 92 92 92 Oxygen Delivery Me thod 08/08/25 00:56 08/08/25 01:00 08/08/25 01:01 Temperature Pulse Rate 95 94 93 Pulse Rate [Pulse Oximeter] Respiratory Rate 15 20 20 Blood Pressure 154/91 H Blood Pressure [Le ft Forearm] Pulse Oximetry 93 96 95 Oxygen Delivery Me thod Room Air 08/08/25 01:15 Temperature Pulse Rate 92 Pulse Rate [Pulse Oximeter] Respiratory Rate 22 Blood Pressure Blood Pressure [Le ft Forearm] Pulse Oximetry 96 Oxygen Delivery Me thod Course Vital Signs Vital signs: Initial Vital Signs Temperature 98.6 F 08/07/25 22:54 Temperature Source Temporal Artery Scan 08/07/25 22:54 Pulse Rate 97 08/07/25 22:54 Respiratory Rate 20 08/07/25 22:54 Blood Pressure 132/74 08/07/25 22:54 Blood Pressure Mean 93 08/07/25 22:54 Pulse Oximetry 91 08/07/25 22:54 Oxygen Delivery Method Room Air 08/07/25 22:54 Vital Signs Temperature 98.6 F 08/07/25 22:54 Pulse Rate 97 08/07/25 22:54 Respiratory Rate 20 08/07/25 22:54 Blood Pressure 132/74 08/07/25 22:54 Pulse Oximetry 91 08/07/25 22:54 Oxygen Delivery Method Room Air 08/07/25 22:54 Temperature 98.4 F 08/08/25 02:38 Pulse Rate 93 08/08/25 02:38 Respiratory Rate 20 08/08/25 02:38 Blood Pressure 139/89 08/08/25 02:38 Pulse Oximetry 96 08/08/25 02:38 Oxygen Delivery Method Room Air 08/08/25 02:38 Medications Administered Medications: Generic Name Dose Route Start Last Admin Trade Name Freq PRN Reason Stop Dose Admin Diphenhydramine HCl 50 mg 08/08/25 01:59 08/08/25 02:25 Diphenhydramine 50 Mg/Ml Inj IVP 50 mg ONCE PRN Administration insomnia Sodium Chloride 1,000 mls @ 60 mls/hr 08/08/25 01:58 08/08/25 02:17 0.9 % Sodium Chloride 1000 Ml IV Not Given .[id number] LUCIAN Lorazepam 0.5 - 2 mg 08/08/25 01:57 08/08/25 03:34 Lorazepam 2 Mg/Ml Inj IVP 1 mg Q1H PRN Administration Anxiety Discontinued Medications Generic Name Dose Route Start Last Admin Trade Name Freq PRN Reason Stop Dose Admin Aspirin 300 mg 08/08/25 01:58 08/08/25 02:25 Aspirin 300 Mg Supp ID 08/08/25 01:59 Not Given DAILY ONE Sodium Chloride 1,000 mls @ 150 mls/hr 08/08/25 01:15 08/08/25 01:18 0.9 % Sodium Chloride 1000 Ml IV 150 mls/hr .Q6H40M LUCIAN Administration MDM - Weakness MDM Narrative Medical decision making narrative: Alyssa is a 74 yo female who Presents to the emergency department from home by EMS for evaluation of stroke-like symptoms. code stroke was called upon arrival. Patient taken directly to CT from EMS in CT head and CTA of the head and neck performed. Upon arrival patient is nontoxic appearing, afebrile, in distress. On examination Patient is awake, alert, oriented to person, place, time. PERRL, Gaze to right, +facial droop, +left upper extremity weakness 3/5, left lower extremity weakness 4/5, sensation intact. I discussed patient management with Stroke Neurologist Dr. Freya Lerma who reviewed images - patient is currently on Lovenox BID for PE/DVT and is not a Candidate for thrombolytics. I personally reviewed and interpreted CT of the head and also discussed results with stroke/neuro which demonstrates subtitle area of low attenuation changes with loss of allen-white differentiation in the right frontal lobe and hyperdense right MCA sign suspicious for acute ischemia. comprehensive labs remarkable for white blood cell count of 7.4, hemoglobin 9.3, INR 1.21, PTT 52, sodium slightly low at 127, potassium 3.7, creatinine 1.1, glucose 146. Patient was started on maintenance IV fluids 150 mL/hour of normal saline. I reviewed EKG which demonstrates sinus rhythm with first-degree AV block with a ventricular rate of 96 beats per minute, left axis deviation, QTC 487, no acute ischemic change. No significant change when compared to prior EKG. Considered thrombectomy however after discussion with Stroke neurologist, patient, family (including power of managing attorney - sister) - patient does not want any aggressive interventions and considering comfort cares (given history of cervical cancer). I discussed patient management with hospitalist who agrees with admission for ongoing evaluation, PT, OT, [employer]PER[employer] evaluaton. Patient and family understand and agree with the plan. Medical Records Attestation: I reviewed the patient's medical records. Lab Data Attestation: I reviewed the patient's lab results. Labs: Lab Results 08/07/25 Range/Units 23:16 WBC 7.41 (4.50-11.00) K/uL RBC 3.10 L (4.00-5.20) m/uL Hgb 9.3 L (12.0-16.0) gm/dL Hct 29.3 L (33.0-51.0) % MCV 95 (80-100) fL MCH 30 (26-34) pg MCHC 32 (32-36) gm/dL RDW Coeff of Myrna 17.2 H (11.5-15.5) % Plt Count 63 L (140-440) K/uL Neut % (Auto) 88.7 H (42.0-72.0) % Lymph % (Auto) 2.8 L (20-44) % [place] % (Auto) 8.1 (0.0-11.0) % Eos % (Auto) 0.0 (0.0-7.0) % Baso % (Auto) 0.1 (0.0-3.0) % Neut # (Auto) 6.60 (1.7-7.0) K/uL Lymph # (Auto) 0.20 L (0.90-2.90) K/uL [place] # (Auto) 0.60 (0.00-0.90) K/UL Eos # (Auto) 0.00 (0.00-0.50) K/uL Baso # (Auto) 0.01 (0.00-0.30) K/uL Abs Immat Gran (auto) 0.02 (0.00-0.30) K/uL Imm/Tot Granulo (auto) 0.3 % INR 1.21 H (0.91-1.10) APTT 52 H (23-33) Seconds Sodium 127 L (135-149) mmol/L Potassium 3.7 (3.6-5.1) mmol/L Chloride 97 (96-114) mmol/L Carbon Dioxide 24 (20-32) mmol/L Anion Gap 6 L (7-15) mEq/L BUN 25 (7-30) mg/dL Creatinine 1.1 (0.5-1.5) mg/dL Estimated GFR 52 ml/min Glucose 146 H (60-115) mg/dL Calcium 8.6 (8.4-10.6) mg/dL Imaging Data CT scan - head: Attestation: I have reviewed the pertinent imaging results. Radiologist's impression: Ordering Physician: Rajani Rust M.D. Date of Service: 08/07/25 Procedure(s): CT head/brain wo con Accession Number(s): [id number] cc: Rajani Rust M.D.; Axel Palomo M.D.~ For Patients: As a result of the 21st Century Cures Act, medical imaging exams and procedure reports are released immediately into your electronic medical record. You may view this report before your referring provider. If you have questions, please contact your health care provider. INDICATION: Altered mental status, left-sided weakness. TECHNIQUE: CT head without contrast. COMPARISON: None. FINDINGS: CSF spaces: Proportionate prominence of the ventricles and sulci, reflecting mild to moderate generalized cerebral volume loss. Brain parenchyma: Subtle area of low-attenuation changes with loss of allen-white matter differentiation in the right frontal lobe. Hyperdense right MCA sign. No evidence of intracranial hemorrhage, extra-axial collection, or midline shift. Atherosclerotic calcifications of the cavernous carotids and carotid siphons. Skull base and calvarium: The visualized paranasal sinuses and mastoid air cells demonstrate no acute or significant findings. The visualized orbits are grossly unremarkable. Calvarium is intact. IMPRESSION: Subtle area of low-attenuation changes with loss of allen-white differentiation in the right frontal lobe and hyperdense right MCA sign, suspicious for acute ischemia. Findings were discussed with Dr. Lerma by Dr. Biggs on 08/07/2025 at 11:31 PM. Please note that all CT scans at this facility use dose modulation, iterative reconstruction, and/or weight-based dosing when appropriate to reduce radiation dose to as low as reasonably achievable. Dictated by Tj Biggs MD @ 08/07/2025 11:34:41 PM Critical Care Time Critical Care Time Critical Care Time: Yes Attestation: The patient required my highest level preparedness to intervene emergently and I personally spent this critical care time directly and personally managing the patient. This critical care time included: Obtaining a history; Examining the patient; Pulse oximetry; Ordering and reviewing of studies; Arranging urgent treatment with development of a management plan; Evaluation of patients response to treatment; Frequent reassessment discussions with other providers. This critical care time was performed to assess and manage the high probability of imminent life-threatening deterioration that could result in multiorgan failure. It was exclusive of separate billable procedures and treating other patients and teaching time. Total Critical Care Time in Minutes: 75 Discharge Plan Discharge Clinical Impression: Acute CVA (cerebrovascular accident), Acute left-sided weakness
--- OUTSIDE RECORDS SUMMARY | 2025-08-07 22:37 | XMS_ITS ---
Author Name Interface, [id number] lity Address [address] [address] [facility] Address [address] [address] Support Name Relationship Address Phone Jesse Wei [...] use of real-time audio and video via [employer]. ??Alyssa has provided written consent to conduct this visit via telemedicine. ??The patient participated in this visit, noted that her home health RN was in the room however he/she did not participate in the visit. ??The patient is located in their home and I, Dr. Carol Branham am located in [facility].?? History today was provided by??chart review and patient report.?? Cancer diagnosis began with development of acute renal failure.?? Admitted to [place] with this December 2024. Found to have cervical mass and bilateral hydronephrosis.?? Biopsy confirmed SCC, PET showed disease extension into uterus, bladder wall. Completed concurrent chemoradiation with immunotherapy, followed by brachytherapy. Admitted with complicated UTI earlier this month.?? Treatments have been through her local Oncology team and [place].?? Anticipates a follow up PET in June.?? [...] will take Tylenol at times for this, 7y017rm or 3t692vl.?? Feels that currently it is not severe [...] the guidance of her local Oncologist and [place].?? Please see below.?? Current Decision Making Capacity [...] related concerns.?? Should Alyssa resume care within [facility], we would be happy to see her in follow up to screen for further care needs.?? Total of??32??minutes were spent on this encounter, including video visit from??954AM - 1016AM??andremaining time spent in documentation, chart review.?? Thank you for including me in caring for ALYSSA Carol Branham MD Physician [phone] cc:Axel Palomo MD Electronically signed by Carol Branham MD 05/14/2025 09:56 CDT
--- OUTSIDE RECORDS SUMMARY | 2025-08-07 22:38 | XMS_ITS ---
Author Name Interface, [id number] lity Address [address] [address] [facility] Address [address] [address] Support Name Relationship Address Phone Jesse Wei [...] use of real-time audio and video via [employer]. ??Alyssa has provided written consent to conduct this visit via telemedicine. ??The patient participated in this visit, noted that her home health RN was in the room however he/she did not participate in the visit. ??The patient is located in their home and I, Dr. Carol Branham am located in [facility].?? History today was provided by??chart review and patient report.?? Cancer diagnosis began with development of acute renal failure.?? Admitted to [place] with this December 2024. Found to have cervical mass and bilateral hydronephrosis.?? Biopsy confirmed SCC, PET showed disease extension into uterus, bladder wall. Completed concurrent chemoradiation with immunotherapy, followed by brachytherapy. Admitted with complicated UTI earlier this month.?? Treatments have been through her local Oncology team and [place].?? Anticipates a follow up PET in June.?? [...] will take Tylenol at times for this, [id number] or [id number].?? Feels that currently it is not severe [...] the guidance of her local Oncologist and [place].?? Please see below.?? Current Decision Making Capacity [...] related concerns.?? Should Alyssa resume care within [facility], we would be happy to see her in follow up to screen for further care needs.?? Total of??32??minutes were spent on this encounter, including video visit from??954AM - 1016AM??andremaining time spent in documentation, chart review.?? Thank you for including me in caring for ALYSSA Carol Branham MD Physician [phone] cc:Axel Palomo MD Electronically signed by Carol Branham MD 05/14/2025 09:56 CDT
--- OUTSIDE RECORDS SUMMARY | 2025-08-07 22:39 | XMS_ITS ---
Author Name Interface, [id number] lity Address [address] [address] [facility] Address [address] [address] Support Name Relationship Address Phone Jesse Wei [...] use of real-time audio and video via [employer]. ??Alyssa has provided written consent to conduct this visit via telemedicine. ??The patient participated in this visit, noted that her home health RN was in the room however he/she did not participate in the visit. ??The patient is located in their home and I, Dr. Carol Branham am located in [facility].?? History today was provided by??chart review and patient report.?? Cancer diagnosis began with development of acute renal failure.?? Admitted to [place] with this December 2024. Found to have cervical mass and bilateral hydronephrosis.?? Biopsy confirmed SCC, PET showed disease extension into uterus, bladder wall. Completed concurrent chemoradiation with immunotherapy, followed by brachytherapy. Admitted with complicated UTI earlier this month.?? Treatments have been through her local Oncology team and [place].?? Anticipates a follow up PET in June.?? [...] will take Tylenol at times for this, [id number] or [id number].?? Feels that currently it is not severe [...] the guidance of her local Oncologist and [place].?? Please see below.?? Current Decision Making Capacity [...] related concerns.?? Should Alyssa resume care within [facility] [place], we would be happy to see her in follow up to screen for further care needs.?? Total of??32??minutes were spent on this encounter, including video visit from??954AM - 1016AM??andremaining time spent in documentation, chart review.?? Thank you for including me in caring for ALYSSA Carol Branham MD Physician [phone] cc:Axel Palomo MD Electronically signed by Carol Branham MD 05/14/2025 09:56 CDT
--- OUTSIDE RECORDS SUMMARY | 2025-08-07 22:40 | XMS_ITS ---
Author Name Interface, [id number] lity Address [address] [address] [facility] Address [address] [address] Support Name Relationship Address Phone Jesse Wei [...] use of real-time audio and video via [employer]. ??Alyssa has provided written consent to conduct this visit via telemedicine. ??The patient participated in this visit, noted that her home health RN was in the room however he/she did not participate in the visit. ??The patient is located in their home and I, Dr. Carol Branham am located in [facility].?? History today was provided by??chart review and patient report.?? Cancer diagnosis began with development of acute renal failure.?? Admitted to [place] with this December 2024. Found to have cervical mass and bilateral hydronephrosis.?? Biopsy confirmed SCC, PET showed disease extension into uterus, bladder wall. Completed concurrent chemoradiation with immunotherapy, followed by brachytherapy. Admitted with complicated UTI earlier this month.?? Treatments have been through her local Oncology team and [place].?? Anticipates a follow up PET in June.?? [...] will take Tylenol at times for this, [id number] or [id number].?? Feels that currently it is not severe [...] the guidance of her local Oncologist and [place].?? Please see below.?? Current Decision Making Capacity [...] concerns.?? Should Alyssa resume care within [facility], we would be happy to see her in follow up to screen for further care needs.?? Total of??32??minutes were spent on this encounter, including video visit from??954AM - 1016AM??andremaining time spent in documentation, chart review.?? Thank you for including me in caring for ALYSSA Carol Branham MD Physician [phone] cc:Axel Palomo MD Electronically signed by Carol Branham MD 05/14/2025 09:56 CDT
--- OUTSIDE RECORDS SUMMARY | 2025-08-07 22:40 | XMS_ITS ---
Author Name Interface, [id number] lity Address [address] [address] [facility] Address [address] [address] Support Name Relationship Address Phone Jesse Wei [...] use of real-time audio and video via [employer]. ??Alyssa has provided written consent to conduct this visit via telemedicine. ??The patient participated in this visit, noted that her home health RN was in the room however he/she did not participate in the visit. ??The patient is located in their home and I, Dr. Carol Branham am located in [facility].?? History today was provided by??chart review and patient report.?? Cancer diagnosis began with development of acute renal failure.?? Admitted to [place] with this December 2024. Found to have cervical mass and bilateral hydronephrosis.?? Biopsy confirmed SCC, PET showed disease extension into uterus, bladder wall. Completed concurrent chemoradiation with immunotherapy, followed by brachytherapy. Admitted with complicated UTI earlier this month.?? Treatments have been through her local Oncology team and [place].?? Anticipates a follow up PET in June.?? [...] will take Tylenol at times for this, [id number] or [id number].?? Feels that currently it is not severe [...] the guidance of her local Oncologist and [place].?? Please see below.?? Current Decision Making Capacity [...] concerns.?? Should Alyssa resume care within [facility], we would be happy to see her in follow up to screen for further care needs.?? Total of??32??minutes were spent on this encounter, including video visit from??954AM - 1016AM??andremaining time spent in documentation, chart review.?? Thank you for including me in caring for ALYSSA Carol Branham MD Physician [phone] cc:Aexl Palomo MD Electronically signed by Carol Branham MD 05/14/2025 09:56 CDT
--- OUTSIDE RECORDS SUMMARY | 2025-08-07 22:41 | XMS_ITS | Encounter Summary ---
Author Organization [facility] Address [address] [place] [address] Care Team Providers Care Bag Repairer Name Role Phone Unavailable Primary Care Provider Unavailabl e Encounter Details Date Type Department Care Team (Late st Contact Info) Description 07/15/2025 Clinical Communication Department of Radiation Oncology in [place], [place] [address] [place] [phone] Thelma Streeter M.D. [address] [place] [address] Social History Tobacco Use Types Packs/Day Years Used Date Smoking Tobacco: Never Smokeless Tobacco: Never Alcohol Use Standard Drinks/Week Comments Not Currently 0 (1 standard drink = 0.6 oz pure alcohol) Quit drinkinking in August after pelvic pain started. 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 I did recommend reporting to either [facility] or [facility] Emergency room. She was persistent on wanting to attend [facility]. I did inform her that they would [...] plan. * Telephone Encounter - Haylie Ovalle Isaías - 07/15/2025 10:53 AM CDT Gris VELIZ at [facility] called regarding patients CT scan from yesterday. The radiologist contacted herabout the results. 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 Gris would like to discuss with our team here as she is considering sending her to [facility]. She would like a call back to discuss. [phone] ask for Gris. documented in this encounter Plan of Treatment Upcoming Encounters Date Type Department Care Team (Late st Contact Info) Description 10/12/2025 11:00 AM TECHNICAL SUPERVISOR Appointment Department of Radiation Oncology in [place], [place] [address] [place] [phone] Thelma Streeter M.D. [address] [place] [address] documented as of this encounter Visit Diagnoses Not on filedocumented in this encounter
--- OUTSIDE RECORDS SUMMARY | 2025-08-07 22:41 | XMS_ITS | Encounter Summary ---
Author Organization [facility] Address [address] [place] [address] Care Team Providers Care Snuff Packing Machine Operator Name Role Phone Unavailable Primary Care Provider Unavailabl e Encounter Details Date Type Department Care Team (Late st Contact Info) Description 07/07/2025 Orders Only Department of Radiation Oncology in [place], [place] [address] [place] [phone] Thelma Streeter M.D. [address] [place] [address] Malignant Neoplasm Of Cervix (HCC) (Primary Dx) Social History Tobacco Use Types Packs/Day Years Used Date Smoking Tobacco: Never Smokeless Tobacco: Never Alcohol Use Standard Drinks/Week Comments Not Currently 0 (1 standard drink = 0.6 oz pure alcohol) Quit drinkinking in August after pelvic pain started. 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 [address] [place] [address] documented as of this encounter Visit Diagnoses Diagnosis Malignant Neoplasm Of Cervix (HCC)- Primary documented in this encounter
--- OUTSIDE RECORDS SUMMARY | 2025-08-07 22:42 | XMS_ITS ---
Author Name Interface, [id number] lity Address [address] [address] [facility] Address [address] [address] Support Name Relationship Address Phone Jesse Wei [...] use of real-time audio and video via [employer]. ??Alyssa has provided written consent to conduct this visit via telemedicine. ??The patient participated in this visit, noted that her home health RN was in the room however he/she did not participate in the visit. ??The patient is located in their home and I, Dr. Carol Branham am located in [facility].?? History today was provided by??chart review and patient report.?? Cancer diagnosis began with development of acute renal failure.?? Admitted to [place] with this December 2024. Found to have cervical mass and bilateral hydronephrosis.?? Biopsy confirmed SCC, PET showed disease extension into uterus, bladder wall. Completed concurrent chemoradiation with immunotherapy, followed by brachytherapy. Admitted with complicated UTI earlier this month.?? Treatments have been through her local Oncology team and [place].?? Anticipates a follow up PET in June.?? [...] will take Tylenol at times for this, 0n039px or 1o877xt.?? Feels that currently it is not severe [...] the guidance of her local Oncologist and [place].?? Please see below.?? Current Decision Making Capacity [...] related concerns.?? Should Alyssa resume care within [facility], we would be happy to see her in follow up to screen for further care needs.?? Total of??32??minutes were spent on this encounter, including video visit from??954AM - 1016AM??andremaining time spent in documentation, chart review.?? Thank you for including me in caring for ALYSSA Carol Branham MD Physician [phone] cc:Axel Palomo MD Electronically signed by Carol Branham MD 05/14/2025 09:56 CDT
--- OUTSIDE RECORDS SUMMARY | 2025-08-07 22:42 | XMS_ITS ---
Author Name Interface, [id number] lity Address [address] [address] [facility] Address [address] [address] Support Name Relationship Address Phone Jesse Wei [...] use of real-time audio and video via [employer]. ??Alyssa has provided written consent to conduct this visit via telemedicine. ??The patient participated in this visit, noted that her home health RN was in the room however he/she did not participate in the visit. ??The patient is located in their home and I, Dr. Carol Branham am located in [facility].?? History today was provided by??chart review and patient report.?? Cancer diagnosis began with development of acute renal failure.?? Admitted to [place] with this December 2024. Found to have cervical mass and bilateral hydronephrosis.?? Biopsy confirmed SCC, PET showed disease extension into uterus, bladder wall. Completed concurrent chemoradiation with immunotherapy, followed by brachytherapy. Admitted with complicated UTI earlier this month.?? Treatments have been through her local Oncology team and [place].?? Anticipates a follow up PET in June.?? [...] will take Tylenol at times for this, 5b739cg or 4r748wh.?? Feels that currently it is not severe [...] the guidance of her local Oncologist and [place].?? Please see below.?? Current Decision Making Capacity [...] related concerns.?? Should Alyssa resume care within [facility], we would be happy to see her in follow up to screen for further care needs.?? Total of??32??minutes were spent on this encounter, including video visit from??954AM - 1016AM??andremaining time spent in documentation, chart review.?? Thank you for including me in caring for ALYSSA Carol Branham MD Physician [phone] cc:Axel Palomo MD Electronically signed by Carol Branham MD 05/14/2025 09:56 CDT
--- OUTSIDE RECORDS SUMMARY | 2025-08-07 22:42 | XMS_ITS ---
Author Name Interface, [id number] lity Address [address] [address] [facility] Address [address] [address] Support Name Relationship Address Phone Jesse Wei [...] use of real-time audio and video via [employer]. ??Alyssa has provided written consent to conduct this visit via telemedicine. ??The patient participated in this visit, noted that her home health RN was in the room however he/she did not participate in the visit. ??The patient is located in their home and I, Dr. Carol Branham am located in [facility].?? History today was provided by??chart review and patient report.?? Cancer diagnosis began with development of acute renal failure.?? Admitted to [place] with this December 2024. Found to have cervical mass and bilateral hydronephrosis.?? Biopsy confirmed SCC, PET showed disease extension into uterus, bladder wall. Completed concurrent chemoradiation with immunotherapy, followed by brachytherapy. Admitted with complicated UTI earlier this month.?? Treatments have been through her local Oncology team and [place].?? Anticipates a follow up PET in June.?? [...] will take Tylenol at times for this, 0v641zf or 2y170uv.?? Feels that currently it is not severe [...] the guidance of her local Oncologist and [place].?? Please see below.?? Current Decision Making Capacity [...] Should Alyssa resume care within [facility], we would be happy to see her in follow up to screen for further care needs.?? Total of??32??minutes were spent on this encounter, including video visit from??954AM - 1016AM??andremaining time spent in documentation, chart review.?? Thank you for including me in caring for ALYSSA Carol Branham MD Physician [phone] cc:Axel Palomo MD Electronically signed by Carol Branham MD 05/14/2025 09:56 CDT
--- OUTSIDE RECORDS SUMMARY | 2025-08-07 22:43 | XMS_ITS ---
Author Name Interface, [id number] lity Address [address] [address] [facility] Address [address] [address] Support Name Relationship Address Phone Jesse Wei [...] use of real-time audio and video via [employer]. ??Alyssa has provided written consent to conduct [...] development of acute renal failure.?? Admitted to [place] with this December 2024. Found to have cervical mass and bilateral hydronephrosis.?? Biopsy confirmed SCC, PET showed disease extension into uterus, bladder wall. Completed concurrent chemoradiation with immunotherapy, followed by brachytherapy. Admitted with complicated UTI earlier this month.?? Treatments have been through her local Oncology team and [place].?? Anticipates a follow up PET in June.?? [...] will take Tylenol at times for this, 5n432mt or 0k144ut.?? Feels that currently it is not severe [...] the guidance of her local Oncologist and [place].?? Please see below.?? Current Decision Making Capacity [...] concerns.?? Should Alyssa resume care within [facility], we would be happy to see her in follow up to screen for further care needs.?? Total of??32??minutes were spent on this encounter, including video visit from??954AM - 1016AM??andremaining time spent in documentation, chart review.?? Thank you for including me in caring for ALYSSA Carol Branham MD Physician [phone] cc:Axel Palomo MD Electronically signed by Carol Branham MD 05/14/2025 09:56 CDT
--- OUTSIDE RECORDS SUMMARY | 2025-08-07 22:43 | XMS_ITS ---
Author Name Interface, [id number] lity Address [address] [address] [facility] Address [address] [address] Support Name Relationship Address Phone Jesse Wei [...] use of real-time audio and video via [employer]. ??Alyssa has provided written consent to conduct this visit via telemedicine. ??The patient participated in this visit, noted that her home health RN was in the room however he/she did not participate in the visit. ??The patient is located in their home and I, Dr. Carol Branham am located in [facility].?? History today was provided by??chart review and patient report.?? Cancer diagnosis began with development of acute renal failure.?? Admitted to [place] with this December 2024. Found to have cervical mass and bilateral hydronephrosis.?? Biopsy confirmed SCC, PET showed disease extension into uterus, bladder wall. Completed concurrent chemoradiation with immunotherapy, followed by brachytherapy. Admitted with complicated UTI earlier this month.?? Treatments have been through her local Oncology team and [place].?? Anticipates a follow up PET in June.?? [...] will take Tylenol at times for this, 9z182tl or 5q949ze.?? Feels that currently it is not severe [...] the guidance of her local Oncologist and [place].?? Please see below.?? Current Decision Making Capacity [...] caring for ALYSSA Carol Branham MD Physician [phone] cc:Axel Palomo MD Electronically signed by Carol Branham MD 05/14/2025 09:56 CDT
--- OUTSIDE RECORDS SUMMARY | 2025-08-07 22:43 | XMS_ITS ---
Author Name Interface, [id number] lity Address [address] [address] [facility] Address [address] [address] Support Name Relationship Address Phone Jesse Wei [...] use of real-time audio and video via [employer]. ??Alyssa has provided written consent to conduct this visit via telemedicine. ??The patient participated in this visit, noted that her home health RN was in the room however he/she did not participate in the visit. ??The patient is located in their home and I, Dr. Carol Branham am located in [facility].?? History today was provided by??chart review and patient report.?? Cancer diagnosis began with development of acute renal failure.?? Admitted to [place] with this December 2024. Found to have cervical mass and bilateral hydronephrosis.?? Biopsy confirmed SCC, PET showed disease extension into uterus, bladder wall. Completed concurrent chemoradiation with immunotherapy, followed by brachytherapy. Admitted with complicated UTI earlier this month.?? Treatments have been through her local Oncology team and [place].?? Anticipates a follow up PET in June.?? [...] will take Tylenol at times for this, 8t499yp or 8b420hk.?? Feels that currently it is not severe [...] the guidance of her local Oncologist and [place].?? Please see below.?? Current Decision Making Capacity [...] related concerns.?? Should Alyssa resume care within [facility], we would be happy to see her in follow up to screen for further care needs.?? Total of??32??minutes were spent on this encounter, including video visit from??954AM - 1016AM??andremaining time spent in documentation, chart review.?? Thank you for including me in caring for ALYSSA Carol Branham MD Physician [phone] cc:Axel Palomo MD Electronically signed by Carol Branham MD 05/14/2025 09:56 CDT
--- OUTSIDE RECORDS SUMMARY | 2025-08-07 22:44 | XMS_ITS ---
Author Name Interface, [id number] lity Address [address] [address] [facility] Address [address] [address] Support Name Relationship Address Phone Jesse Wei [...] use of real-time audio and video via [employer]. ??Alyssa has provided written consent to conduct this visit via telemedicine. ??The patient participated in this visit, noted that her home health RN was in the room however he/she did not participate in the visit. ??The patient is located in their home and I, Dr. Carol Branham am located in [facility].?? History today was provided by??chart review and patient report.?? Cancer diagnosis began with development of acute renal failure.?? Admitted to [place] with this December 2024. Found to have cervical mass and bilateral hydronephrosis.?? Biopsy confirmed SCC, PET showed disease extension into uterus, bladder wall. Completed concurrent chemoradiation with immunotherapy, followed by brachytherapy. Admitted with complicated UTI earlier this month.?? Treatments have been through her local Oncology team and [place].?? Anticipates a follow up PET in June.?? [...] will take Tylenol at times for this, 3e975fm or 1k674kk.?? Feels that currently it is not severe [...] the guidance of her local Oncologist and [place].?? Please see below.?? Current Decision Making Capacity [...] related concerns.?? Should Alyssa resume care within [facility], we would be happy to see her in follow up to screen for further care needs.?? Total of??32??minutes were spent on this encounter, including video visit from??954AM - 1016AM??andremaining time spent in documentation, chart review.?? Thank you for including me in caring for ALYSSA Carol Branham MD Physician [phone] cc:Axel Palomo MD Electronically signed by Carol Branham MD 05/14/2025 09:56 CDT
--- OUTSIDE RECORDS SUMMARY | 2025-08-07 22:44 | XMS_ITS | Clinical Summary ---
Author Organization [facility] Address [address] [place] [address] Care Team Providers Care Wildlife Conservation Officer Name Role Phone Unavailable Primary Care Provider Unavailabl e Source Comments Patient records contain information from all sites at [facility]. For routine questions regarding patient records, call [phone] during business hours, M-F 8:00 AM - 5:00 PM Central Time. 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 07/15/2025 Clinical Communication Department of Radiation Oncology in [address] [address] Thelma Streeter M.D. 07/07/2025 Orders Only Department of Radiation Oncology in [address] [address] Thelma Streeter M.D. Malignant Neoplasm Of Cervix (HCC) (Primary Dx) 07/06/2025 1:52 PM CDT - 07/06/2025 9:03 PM CDT Hospital Encounter Department of Radiation Oncology in [address] [address] Thelma Streeter M.D. Malignant Neoplasm Of Cervix (HCC) (Primary Dx) 05/11/2025 Clinical Communication Department of Radiation Oncology in [address] [address] Moon Gong R.N. from Last 3 Months Social History Tobacco Use Types Packs/Day Years Used Date Smoking Tobacco: Never Smokeless Tobacco: Never Tobacco Cessation:Counseling Given: Not Answered Alcohol Use Standard Drinks/Week Comments Not Currently 0 (1 standard drink = 0.6 oz pure alcohol) Quit drinkinking in August after pelvic pain started. [facility] Utilities Answer Date Recorded In [...] your living situation today? 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 [address] [place] [address] Health Maintenance Due Date Last Done Comments [...] Influenza Vaccine (#1) 2025 Cologuard 06/18/2025 06/18/2022 Creatinine Level (Kidney Function Test) 07/27/2026 07/27/2025, 07/26/2025, 07/25/2025, Additional history exists Potassium Level 07/27/2026 07/27/2025, 12/2024, 07/25/2025, Additional history exists Sodium Level 07/27/2026 07/27/2025, 12/2024, 07/25/2025, Additional history exists Fasting Glucose for Diabetes Screening 07/27/2028 07/27/2025, 07/26/2025, 07/17/2025, Additional history exists Colonoscopy 01/07/2030 01/07/2025 Colorectal Cancer Surveillance 01/07/2030 Fall Risk Screen (Annual) Completed 04/29/2025 HPV Vaccines Aged Out No longer eligi ble based on patient's age to complete this topic IPV Vaccines Aged Out No longer eligi ble based on patient's age to complete this topic Medical Devices Implanted Type Area Roll On Worker Device Identifier Shelf Expiration Date Model / Serial / Lot Implantable Port Implantable Port Right: Chest Procedures Procedure Name Priority Date/Time Associated Diagnosis Comments OUTSIDE CT BODY Routine 07/14/2025 1:45 PM CDT OUTSIDE NM PET Routine 06/30/2025 3:25 PM CDT CREATININE WITH EGFR, S/P Routine 04/26/2025 12:16 PM CDT Malignant Neoplasm Of Cervix (HCC) BI BREAST DIAGNOSTIC BILATERAL Routine 03/15/1998 1:14 PM CDT from Last 3 Months or Most Recently Relevant to Health Maintenance Results * CT ABDOMEN PELVIS W CON-Outside CT Body (07/14/2025 1:45 PM CDT) Narrative IIFL - 07/15/2025 10:04 AM CDT This order [...] PM CDT) 06/30/2025 3:21 PM CDT Narrative IIFL - 06/30/2025 6:24 PM CDT This order [...] she has had a previous mammogram in [place] several years previously, and if this could be obtained and the area of asymmetry shown to be stable over that interval, the six month follow-up would not be necessary. Nothing for malignancy in the right breast. P1,P6L,D1,M3.9L,U0L Electronically signed by: Joce Burton M.D. [id number] 15-Mar-1998 14:16 Procedure Note David Burton M.D. [...] that she has had a previousmammogram in [place] several years previously, and if this could [...] Most Recently Relevant to Health Maintenance Insurance [facility] MEDICARE Advance Directives For more information, please contact: [phone] Documents on File Type Date Recorded Patient Superintendent Operations Division Expl anation Advance Directives 07/06/2025 8:17 PM Brooke Conner HCPOA/ADVOCATE/AGENT/R EPRESENTATIVE/SURROGAT E Advance Directives 03/01/2013 12:00 AM Leg acy document. See document viewer. * Full Code (Latest Code Status on File) Date Activated Date Inactivated Comments 04/11/2025 12:44 PM 04/11/2025 7:01 PM Question Answer Comments Full Code: Not Discussed Due to: Patient not available Healthcare Agents on File Name Relationship Healthcare Agent [facility] p Communication Brooke Barbour [facility] Care Agent Rachana Conner [facility] Health Care Agent
--- OUTSIDE RECORDS SUMMARY | 2025-08-07 22:44 | XMS_ITS ---
Author Organization [facility] Address [address] [place] [address] Care Team Providers Care Director Clinical Research Name Role Phone Unavailable Primary Care Provider Unavailabl e Active Problems * This document contains information received from the source organization and may not represent a complete record from that organization. Problem Noted Date Diagnosed Date Atherosclerotic Heart Diseas e Of [place] Coronary Artery Without Angina Pectoris 03/30/2025 Malignant [...] Fraction Dose Fractions Total Dose Plans Planned D4Snnhpi 04/06/2025 - 04/06/2025 700 cGy 7 00 cGy [id number] 03/30/2025 - 03/30/2025 700 cGy 7 00 cGy Reference Points Delivered DPV HDR 03/30/2025 - 04/06/2025 2,100 cGy * Course 1xPelvis 02/21/2025 - 03/28/2025 Treatment Period Fraction Dose Fractions Total Dose Plans Planned J4Sclraw 02/21/2025 - 03/28/2025 180 cGy 25 / 25 4 ,500 cGy Reference Points Delivered [id number] 02/21/2025 - 03/28/2025 4,500 cGy Lifetime Dose Tracking * Chemical Lifetime Dose Automatic Entry Manual Entr y Radiation 36.09 mGy 36.09 mGy 0 mGy Fluoro Time 6.62 minutes 6.62 minutes 0 minutes DAP (uGy-m2) 752.62 uGy-m2 752.62 uGy-m2 0 uGy-m2
--- OUTSIDE RECORDS SUMMARY | 2025-08-07 22:44 | XMS_ITS ---
Author Name Interface, [id number] lity Address [address] [address] [facility] Address [address] [address] Support Name Relationship Address Phone Jesse Wei [...] use of real-time audio and video via Signifydee. ??Alyssa has provided written consent to conduct [...] development of acute renal failure.?? Admitted to [place] with this December 2024. Found to have cervical mass and bilateral hydronephrosis.?? Biopsy confirmed SCC, PET showed disease extension into uterus, bladder wall. Completed concurrent chemoradiation with immunotherapy, followed by brachytherapy. Admitted with complicated UTI earlier this month.?? Treatments have been through her local Oncology team and [place].?? Anticipates a follow up PET in June.?? [...] will take Tylenol at times for this, 8r856oj or 8d185gg.?? Feels that currently it is not severe [...] the guidance of her local Oncologist and [place].?? Please see below.?? Current Decision Making Capacity [...] related concerns.?? Should Alyssa resume care within [facility], we would be happy to see her in follow up to screen for further care needs.?? Total of??32??minutes were spent on this encounter, including video visit from??954AM - 1016AM??andremaining time spent in documentation, chart review.?? Thank you for including me in caring for ALYSSA Carol Branham MD Physician [phone] cc:Axel Palomo MD Electronically signed by Carol Branham MD 05/14/2025 09:56 CDT
--- OUTSIDE RECORDS SUMMARY | 2025-08-07 22:45 | XMS_ITS | Encounter Summary ---
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 [facility] Utilities Answer Date Recorded In the past 12 months has e electric, gas, oil, or water [employer] threatened to shut off services in your [...] AM CDT Legal Sex Female 6:12 PM HEALTH PLAN ADVISOR Gender Identity Female 03/05/2025 6:51 AM CDT Sexual Orientation Straight 03/05/2025 6: 51 AM CDT documented as of this encounter Plan of Treatment Upcoming Encounters Date Type Department Care Team (Late st Contact Info) Description 10/12/2025 11:00 AM HEALTH PLAN ADVISOR Appointment Department of Radiation Oncology in [place], [place] [address] [place] [phone] Thelma Streeter M.D. [address] [place] [address] documented as of this encounter Visit Diagnoses Not on filedocumented in this encounter
--- OUTSIDE RECORDS SUMMARY | 2025-08-07 22:45 | XMS_ITS ---
Author Name Interface, [id number] lity Address [address] [address] [facility] Address [address] [address] Support Name Relationship Address Phone Jesse Wei [...] use of real-time audio and video via Bonuu! Loyaltyee. ??Alyssa has provided written consent to conduct this visit via telemedicine. ??The patient participated in this visit, noted that her home health RN was in the room however he/she did not participate in the visit. ??The patient is located in their home and I, Dr. Carol Branham am located in [facility].?? History today was provided by??chart review and patient report.?? Cancer diagnosis began with development of acute renal failure.?? Admitted to [place] with this December 2024. Found to have cervical mass and bilateral hydronephrosis.?? Biopsy confirmed SCC, PET showed disease extension into uterus, bladder wall. Completed concurrent chemoradiation with immunotherapy, followed by brachytherapy. Admitted with complicated UTI earlier this month.?? Treatments have been through her local Oncology team and [place].?? Anticipates a follow up PET in June.?? [...] will take Tylenol at times for this, 6m976zs or 1z239oi.?? Feels that currently it is not severe [...] the guidance of her local Oncologist and [place].?? Please see below.?? Current Decision Making Capacity [...] related concerns.?? Should Alyssa resume care within [facility], we would be happy to see her in follow up to screen for further care needs.?? Total of??32??minutes were spent on this encounter, including video visit from??954AM - 1016AM??andremaining time spent in documentation, chart review.?? Thank you for including me in caring for ALYSSA Carol Branham MD Physician [phone] cc:Axel Palomo MD Electronically signed by Carol Branham MD 05/14/2025 09:56 CDT
--- OUTSIDE RECORDS SUMMARY | 2025-08-07 22:45 | XMS_ITS ---
Author Name Interface, [id number] lity Address [address] [address] [facility] Address [address] [address] Support Name Relationship Address Phone Jesse Wei [...] use of real-time audio and video via Eachbabyee. ??Alyssa has provided written consent to conduct this visit via telemedicine. ??The patient participated in this visit, noted that her home health RN was in the room however he/she did not participate in the visit. ??The patient is located in their home and I, Dr. Carol Branham am located in [facility] [place].?? History today was provided by??chart review and patient report.?? Cancer diagnosis began with development of acute renal failure.?? Admitted to [place] with this December 2024. Found to have cervical mass and bilateral hydronephrosis.?? Biopsy confirmed SCC, PET showed disease extension into uterus, bladder wall. Completed concurrent chemoradiation with immunotherapy, followed by brachytherapy. Admitted with complicated UTI earlier this month.?? Treatments have been through her local Oncology team and [place].?? Anticipates a follow up PET in June.?? [...] will take Tylenol at times for this, 8r234kd or 7a493ed.?? Feels that currently it is not severe [...] the guidance of her local Oncologist and [place].?? Please see below.?? Current Decision Making Capacity [...] cancer for ongoing symptom/support related concerns.?? Should Alysas resume care within [facility], we would be happy to see her in follow up to screen for further care needs.?? Total of??32??minutes were spent on this encounter, including video visit from??954AM - 1016AM??andremaining time spent in documentation, chart review.?? Thank you for including me in caring for ALYSSA Carol Branham MD Physician [phone] cc:Axel Palomo MD Electronically signed by Carol Branham MD 05/14/2025 09:56 CDT
--- OUTSIDE RECORDS SUMMARY | 2025-08-07 22:47 | XMS_ITS ---
Author Name Interface, [id number] lity Address [address] [address] [facility] Address [address] [address] Support Name Relationship Address Phone Jesse Wei [...] use of real-time audio and video via Ts[employer]ulinkee. ??Alyssa has provided written consent to conduct this visit via telemedicine. ??The patient participated in this visit, noted that her home health RN was in the room however he/she did not participate in the visit. ??The patient is located in their home and I, Dr. Carol Branham am located in [facility].?? History today was provided by??chart review and patient report.?? Cancer diagnosis began with development of acute renal failure.?? Admitted to [place] with this December 2024. Found to have cervical mass and bilateral hydronephrosis.?? Biopsy confirmed SCC, PET showed disease extension into uterus, bladder wall. Completed concurrent chemoradiation with immunotherapy, followed by brachytherapy. Admitted with complicated UTI earlier this month.?? Treatments have been through her local Oncology team and [place].?? Anticipates a follow up PET in June.?? [...] will take Tylenol at times for this, 0r008cp or 1f720bj.?? Feels that currently it is not severe [...] the guidance of her local Oncologist and [place].?? Please see below.?? Current Decision Making Capacity [...] related concerns.?? Should Alyssa resume care within [facility], we would be happy to see her in follow up to screen for further care needs.?? Total of??32??minutes were spent on this encounter, including video visit from??954AM - 1016AM??andremaining time spent in documentation, chart review.?? Thank you for including me in caring for ALYSSA Carol Branham MD Physician [phone] cc:Axel Palomo MD Electronically signed by Carol Branham MD 05/14/2025 09:56 CDT
--- OUTSIDE RECORDS SUMMARY | 2025-08-07 22:47 | XMS_ITS | Patient Health Record ---
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 Name Role Phone Dev Mckeon Primary Care Provider Allergies No Known Allergies Reason For Referral No Information Medications Medication SIG (Take, Route, Frequency, Duration) Notes Start Date End Date Status Raymond 3 1000 MG 1 capsule Orally Thr [...] W/U Status Risk Notes Problem Primary hypertension (54325436) Primary hypertension (I10) Active confirmed Vital Signs Heart Rate 70 /min 12/03/2024 Temperature 97.2 degrees Fahrenheit 12/03/2024 Respiratory Rate 16 /min 12/03/2024 Blood pressure diastolic 98 mm Hg 12/03/2024 Weight-kg 70.67 kg 12/03/2024 Blood pressure systolic 158 mm Hg 12/03/2024 Weight 155.8 lbs 12/03/2024 Encounters Encounter Location Date Provider Diagnosis [facility] [address] [place], [place] [id number] 12/03/2024 Dev Mckeon Abdominal bloating R14.0 and Intermittent constipation K59.09 [facility] [address] [place], [place] [phone] 12/06/2024 Dev Mckeon Assessments Encounter Date Diagnosis [...] End Date [employer] [address] [address] [place] [address] [id number] Rosa Garcia Self - patient is the [...]
--- OUTSIDE RECORDS SUMMARY | 2025-08-07 22:47 | XMS_ITS ---
Author Name Interface, N9Kwibatl lity Address [address] [address] [facility] Address [address] [address] Support Name Relationship Address Phone Jesse Wei [...] use of real-time audio and video via ICTC GROUPee. ??Alyssa has provided written consent to conduct this visit via telemedicine. ??The patient participated in this visit, noted that her home health RN was in the room however he/she did not participate in the visit. ??The patient is located in their home and I, Dr. Carol Branham am located in [facility].?? History today was provided by??chart review and patient report.?? Cancer diagnosis began with development of acute renal failure.?? Admitted to [place] with this December 2024. Found to have cervical mass and bilateral hydronephrosis.?? Biopsy confirmed SCC, PET showed disease extension into uterus, bladder wall. Completed concurrent chemoradiation with immunotherapy, followed by brachytherapy. Admitted with complicated UTI earlier this month.?? Treatments have been through her local Oncology team and [place].?? Anticipates a follow up PET in June.?? [...] will take Tylenol at times for this, 4g447fe or 8m742lf.?? Feels that currently it is not severe [...] the guidance of her local Oncologist and [place].?? Please see below.?? Current Decision Making Capacity [...] caring for ALYSSA Carol Branham MD Physician [phone] cc:Axel Palomo MD Electronically signed by Carol Branham MD 05/14/2025 09:56 CDT
--- OUTSIDE RECORDS SUMMARY | 2025-08-07 22:48 | XMS_ITS ---
Author Name Interface, [id number] lity Address [address] [address] [facility] Address [address] [address] Support Name Relationship Address Phone Jesse Wei [...] use of real-time audio and video via As Seen on TVee. ??Alyssa has provided written consent to conduct [...] development of acute renal failure.?? Admitted to [place] with this December 2024. Found to have cervical mass and bilateral hydronephrosis.?? Biopsy confirmed SCC, PET showed disease extension into uterus, bladder wall. Completed concurrent chemoradiation with immunotherapy, followed by brachytherapy. Admitted with complicated UTI earlier this month.?? Treatments have been through her local Oncology team and [place].?? Anticipates a follow up PET in June.?? [...] will take Tylenol at times for this, 2v661rq or 5k836jk.?? Feels that currently it is not severe [...] the guidance of her local Oncologist and [place].?? Please see below.?? Current Decision Making Capacity [...] related concerns.?? Should Alyssa resume care within [facility], we would be happy to see her in follow up to screen for further care needs.?? Total of??32??minutes were spent on this encounter, including video visit from??954AM - 1016AM??andremaining time spent in documentation, chart review.?? Thank you for including me in caring for ALYSSA Carol Branham MD Physician [phone] cc:Axel Palomo MD Electronically signed by Carol Branham MD 05/14/2025 09:56 CDT
--- OUTSIDE RECORDS SUMMARY | 2025-08-07 22:49 | XMS_ITS ---
Author Name Interface, T9Hnjtdxe lity Address [address] [address] [facility] Address [address] [address] Support Name Relationship Address Phone Jesse Wei [...] use of real-time audio and video via Lust have it!ee. ??Alyssa has provided written consent to conduct this visit via telemedicine. ??The patient participated in this visit, noted that her home health RN was in the room however he/she did not participate in the visit. ??The patient is located in their home and I, Dr. Carol Branham am located in [facility].?? History today was provided by??chart review and patient report.?? Cancer diagnosis began with development of acute renal failure.?? Admitted to [place] with this December 2024. Found to have cervical mass and bilateral hydronephrosis.?? Biopsy confirmed SCC, PET showed disease extension into uterus, bladder wall. Completed concurrent chemoradiation with immunotherapy, followed by brachytherapy. Admitted with complicated UTI earlier this month.?? Treatments have been through her local Oncology team and [place].?? Anticipates a follow up PET in June.?? [...] will take Tylenol at times for this, 8q860ja or 4l706yp.?? Feels that currently it is not severe [...] the guidance of her local Oncologist and [place].?? Please see below.?? Current Decision Making Capacity [...] related concerns.?? Should Alyssa resume care within [facility], we would be happy to see her in follow up to screen for further care needs.?? Total of??32??minutes were spent on this encounter, including video visit from??954AM - 1016AM??andremaining time spent in documentation, chart review.?? Thank you for including me in caring for ALYSSA Carol Branham MD Physician [phone] cc:Axel Palomo MD Electronically signed by Carol Branham MD 05/14/2025 09:56 CDT
--- OUTSIDE RECORDS SUMMARY | 2025-08-07 22:49 | XMS_ITS ---
Author Name Interface, M2Qfafvsn lity Address [address] [address] [facility] Address [address] [address] Support Name Relationship Address Phone Jesse Wei [...] use of real-time audio and video via Dilon Technologiesee. ??Alyssa has provided written consent to conduct this visit via telemedicine. ??The patient participated in this visit, noted that her home health RN was in the room however he/she did not participate in the visit. ??The patient is located in their home and I, Dr. Carol Branham am located in [facility].?? History today was provided by??chart review and patient report.?? Cancer diagnosis began with development of acute renal failure.?? Admitted to [place] with this December 2024. Found to have cervical mass and bilateral hydronephrosis.?? Biopsy confirmed SCC, PET showed disease extension into uterus, bladder wall. Completed concurrent chemoradiation with immunotherapy, followed by brachytherapy. Admitted with complicated UTI earlier this month.?? Treatments have been through her local Oncology team and [place].?? Anticipates a follow up PET in June.?? [...] will take Tylenol at times for this, 3b154nx or 1x417cx.?? Feels that currently it is not severe [...] the guidance of her local Oncologist and [place].?? Please see below.?? Current Decision Making Capacity [...] related concerns.?? Should Alyssa resume care within [facility], we would be happy to see her in follow up to screen for further care needs.?? Total of??32??minutes were spent on this encounter, including video visit from??954AM - 1016AM??andremaining time spent in documentation, chart review.?? Thank you for including me in caring for ALYSSA Carol Branham MD Physician [phone] cc:Axel Palomo MD Electronically signed by Carol Branham MD 05/14/2025 09:56 CDT
--- OUTSIDE RECORDS SUMMARY | 2025-08-07 22:50 | XMS_ITS ---
Author Name Interface, [id number] lity Address [address] [address] [facility] Address [address] [address] Support Name Relationship Address Phone Jesse Wei [...] use of real-time audio and video via MergeLocalee. ??Alyssa has provided written consent to conduct this visit via telemedicine. ??The patient participated in this visit, noted that her home health RN was in the room however he/she did not participate in the visit. ??The patient is located in their home and I, Dr. Carol Branham am located in [facility].?? History today was provided by??chart review and patient report.?? Cancer diagnosis began with development of acute renal failure.?? Admitted to [place] with this December 2024. Found to have cervical mass and bilateral hydronephrosis.?? Biopsy confirmed SCC, PET showed disease extension into uterus, bladder wall. Completed concurrent chemoradiation with immunotherapy, followed by brachytherapy. Admitted with complicated UTI earlier this month.?? Treatments have been through her local Oncology team and [place].?? Anticipates a follow up PET in June.?? [...] will take Tylenol at times for this, 7o654ya or 7z766ht.?? Feels that currently it is not severe [...] the guidance of her local Oncologist and [place].?? Please see below.?? Current Decision Making Capacity [...] concerns.?? Should Alyssa resume care within [facility], we would be happy to see her in follow up to screen for further care needs.?? Total of??32??minutes were spent on this encounter, including video visit from??954AM - 1016AM??andremaining time spent in documentation, chart review.?? Thank you for including me in caring for ALYSSA Carol Branham MD Physician [phone] cc:Axel Palomo MD Electronically signed by Carol Branham MD 05/14/2025 09:56 CDT
--- OUTSIDE RECORDS SUMMARY | 2025-08-07 22:50 | XMS_ITS ---
Author Name Interface, [id number] lity Address [address] [address] [facility] Address [address] [address] Support Name Relationship Address Phone Jesse Wei [...] use of real-time audio and video via Revistronicee. ??Alyssa has provided written consent to conduct this visit via telemedicine. ??The patient participated in this visit, noted that her home health RN was in the room however he/she did not participate in the visit. ??The patient is located in their home and I, Dr. Carol Branham am located in [facility].?? History today was provided by??chart review and patient report.?? Cancer diagnosis began with development of acute renal failure.?? Admitted to [place] with this December 2024. Found to have cervical mass and bilateral hydronephrosis.?? Biopsy confirmed SCC, PET showed disease extension into uterus, bladder wall. Completed concurrent chemoradiation with immunotherapy, followed by brachytherapy. Admitted with complicated UTI earlier this month.?? Treatments have been through her local Oncology team and [place].?? Anticipates a follow up PET in June.?? [...] will take Tylenol at times for this, 3e886yz or 4k278jz.?? Feels that currently it is not severe [...] the guidance of her local Oncologist and [place].?? Please see below.?? Current Decision Making Capacity [...] related concerns.?? Should Alyssa resume care within [facility], we would be happy to see her in follow up to screen for further care needs.?? Total of??32??minutes were spent on this encounter, including video visit from??954AM - 1016AM??andremaining time spent in documentation, chart review.?? Thank you for including me in caring for ALYSSA Carol Branham MD Physician [phone] cc:Axel Palomo MD Electronically signed by Carol Branham MD 05/14/2025 09:56 CDT
--- NOTE | 2025-08-07 22:51 | CT_ITS ---
Patient: CELINA PULIDO Facility:?[facility] RIS Patient ID:?[id number] Site Patient ID:?[id number]. Site :?[id number] Study:?CT-Head Angio 95CC ISOVUE 370 STROKE CODE-08/07/2025 11:24:25 PM Ordering Physician:Ana Gerard Final Report: CT ANGIOGRAM HEAD AND NECK DATE: 08/07/2025 CLINICAL HISTORY: Patient with focal neurological deficits. TECHNIQUE: Standard helical CT image acquisition through the head and neck was performed after intravenous contrast bolus enhancement. 2D and 3D MIP images for post-processing were performed and interpreted on an independent workstation and 3D images were permanently archived. COMPARISON: CT same day. FINDINGS: There is distal right M1 segment occlusion with some filling of the distal vasculature via pial collaterals. The origins of the great vessels from the aortic arch are patent. The origin of the right vertebral artery is patent. The origin of the left vertebral artery is patent. The common carotid arteries are patent. There is no stenosis at the origin of the right internal carotid artery by NASCET criteria. There is no stenosis at the origin of the left internal carotid artery by NASCET criteria. The rest of the cervical segments of the internal carotid arteries are patent up to their intracranial segments. The intracranial segments of the internal carotid arteries are patent. The left vertebral artery is dominant. The cervical segments of the vertebral arteries are patent. The intracranial segments of the vertebral arteries are patent. The anterior cerebral arteries are normal without aneurysm or proximal occlusion identified. The anterior communicating artery is well visualized and appears normal. The basilar artery is normal without aneurysm or occlusion. The posterior cerebral arteries are normal without aneurysm or proximal occlusion. There is normal opacification of major intracranial venous structures. The visualized lung apices are unremarkable. The thyroid gland is unremarkable. The soft tissues of the neck are unremarkable. There are degenerative changes in the cervical spine. IMPRESSION: Distal right M1 segment occlusion with some filling of the distal vasculature via pial collaterals. Findings were discussed with Dr. Lerma at 11:40 PM. Please note that all CT scans at this facility use dose modulation, iterative reconstruction, and/or weight-based dosing when appropriate to reduce radiation dose to as low as reasonably achievable. Dictated by: Ronnie Grande MD @ 08/07/2025 23:41:27 (Electronic Signature)
--- NOTE | 2025-08-07 22:51 | CT_ITS ---
Patient: CELINA PULIDO Facility:?[facility] RIS Patient ID:?[id number] Site Patient ID:?[id number]. Site :?1950 Study:?CT-Neck Angio Angio 95CC ISOVUE 370 STROKE CODE-08/07/2025 11:25:51 PM Ordering Physician:Ana Gerard Final Report: CT ANGIOGRAM HEAD AND NECK DATE: 08/07/2025 CLINICAL HISTORY: Patient with focal neurological deficits. TECHNIQUE: Standard helical CT image acquisition through the head and neck was performed after intravenous contrast bolus enhancement. 2D and 3D MIP images for post-processing were performed and interpreted on an independent workstation and 3D images were permanently archived. COMPARISON: CT same day. FINDINGS: There is distal right M1 segment occlusion with some filling of the distal vasculature via pial collaterals. The origins of the great vessels from the aortic arch are patent. The origin of the right vertebral artery is patent. The origin of the left vertebral artery is patent. The common carotid arteries are patent. There is no stenosis at the origin of the right internal carotid artery by NASCET criteria. There is no stenosis at the origin of the left internal carotid artery by NASCET criteria. The rest of the cervical segments of the internal carotid arteries are patent up to their intracranial segments. The intracranial segments of the internal carotid arteries are patent. The left vertebral artery is dominant. The cervical segments of the vertebral arteries are patent. The intracranial segments of the vertebral arteries are patent. The anterior cerebral arteries are normal without aneurysm or proximal occlusion identified. The anterior communicating artery is well visualized and appears normal. The basilar artery is normal without aneurysm or occlusion. The posterior cerebral arteries are normal without aneurysm or proximal occlusion. There is normal opacification of major intracranial venous structures. The visualized lung apices are unremarkable. The thyroid gland is unremarkable. The soft tissues of the neck are unremarkable. There are degenerative changes in the cervical spine. IMPRESSION: Distal right M1 segment occlusion with some filling of the distal vasculature via pial collaterals. Findings were discussed with Dr. Lerma at 11:40 PM. Please note that all CT scans at this facility use dose modulation, iterative reconstruction, and/or weight-based dosing when appropriate to reduce radiation dose to as low as reasonably achievable. Dictated by: Ronnie Grande MD @ 08/07/2025 23:41:40 (Electronic Signature)
--- OUTSIDE RECORDS SUMMARY | 2025-08-07 22:51 | XMS_ITS ---
Author Name Interface, [id number] lity Address [address] [address] [facility] Oncology Address [address] [address] Support Name Relationship Address Phone Jesse Wei [...] use of real-time audio and video via [employer]. ??Alyssa has provided written consent to [...] development of acute renal failure.?? Admitted to [place] with this December 2024. Found to have cervical mass and bilateral hydronephrosis.?? Biopsy confirmed SCC, PET showed disease extension into uterus, bladder wall. Completed concurrent chemoradiation with immunotherapy, followed by brachytherapy. Admitted with complicated UTI earlier this month.?? Treatments have been through her local Oncology team and [place].?? Anticipates a follow up PET in June.?? [...] will take Tylenol at times for this, 6t620vn or 1n308rf.?? Feels that currently it is not severe [...] the guidance of her local Oncologist and [place].?? Please see below.?? Current Decision Making Capacity [...] related concerns.?? Should Alyssa resume care within [facility], we would be happy to see her in follow up to screen for further care needs.?? Total of??32??minutes were spent on this encounter, including video visit from??954AM - 1016AM??andremaining time spent in documentation, chart review.?? Thank you for including me in caring for ALYSSA Carol Branham MD Physician [phone] cc:Axel Palomo MD Electronically signed by Carol Branham MD 05/14/2025 09:56 CDT
--- OUTSIDE RECORDS SUMMARY | 2025-08-07 22:51 | XMS_ITS ---
Author Name Interface, [id number] lity Address [address] [address] [facility] Oncology Address [address] [address] Support Name Relationship Address Phone Jesse Wei [...] use of real-time audio and video via [employer]. ??Alyssa has provided written consent to conduct this visit via telemedicine. ??The patient participated in this visit, noted that her home health RN was in the room however he/she did not participate in the visit. ??The patient is located in their home and I, Dr. Carol Branham am located in [facility].?? History today was provided by??chart review and patient report.?? Cancer diagnosis began with development of acute renal failure.?? Admitted to [place] with this December 2024. Found to have cervical mass and bilateral hydronephrosis.?? Biopsy confirmed SCC, PET showed disease extension into uterus, bladder wall. Completed concurrent chemoradiation with immunotherapy, followed by brachytherapy. Admitted with complicated UTI earlier this month.?? Treatments have been through her local Oncology team and [place].?? Anticipates a follow up PET in June.?? [...] will take Tylenol at times for this, 5k115ve or 4i957hx.?? Feels that currently it is not severe [...] the guidance of her local Oncologist and [place].?? Please see below.?? Current Decision Making Capacity [...] caring for ALYSSA Carol Branham MD Physician [phone] cc:Axel Palomo MD Electronically signed by Carol Branham MD 05/14/2025 09:56 CDT
--- OUTSIDE RECORDS SUMMARY | 2025-08-07 22:51 | XMS_ITS ---
Author Name Interface, [id number] lity Address [address] [address] [facility] Oncology Address [address] [address] Support Name Relationship Address Phone Jesse Wei [...] use of real-time audio and video via [employer]. ??Alyssa has provided written consent to conduct this visit via telemedicine. ??The patient participated in this visit, noted that her home health RN was in the room however he/she did not participate in the visit. ??The patient is located in their home and I, Dr. Carol Branham am located in [facility].?? History today was provided by??chart review and patient report.?? Cancer diagnosis began with development of acute renal failure.?? Admitted to [place] with this December 2024. Found to have cervical mass and bilateral hydronephrosis.?? Biopsy confirmed SCC, PET showed disease extension into uterus, bladder wall. Completed concurrent chemoradiation with immunotherapy, followed by brachytherapy. Admitted with complicated UTI earlier this month.?? Treatments have been through her local Oncology team and [place].?? Anticipates a follow up PET in June.?? [...] will take Tylenol at times for this, 8b266gc or 6u343zv.?? Feels that currently it is not severe [...] the guidance of her local Oncologist and [place].?? Please see below.?? Current Decision Making Capacity [...] Should Alyssa resume care within [facility], we would be happy to see her in follow up to screen for further care needs.?? Total of??32??minutes were spent on this encounter, including video visit from??954AM - 1016AM??andremaining time spent in documentation, chart review.?? Thank you for including me in caring for ALYSSA Carol Branham MD Physician [phone] cc:Axel Palomo MD Electronically signed by Carol Branham MD 05/14/2025 09:56 CDT
--- NOTE | 2025-08-07 22:52 | CRLHL7_ITS ---
For Patients: As a result of the Century Cures Act, medical imaging exams and procedure reports are released immediately into your electronic medical record. You may view this report before your referring provider. If you have questions, please contact your health care provider. INDICATION: Altered mental status, left-sided weakness. TECHNIQUE: CT head without contrast. COMPARISON: None. FINDINGS: CSF spaces: Proportionate prominence of the ventricles and sulci, reflecting mild to moderate generalized cerebral volume loss. Brain parenchyma: Subtle area of low-attenuation changes with loss of allen-white matter differentiation in the right frontal lobe. Hyperdense right MCA sign. No evidence of intracranial hemorrhage, extra-axial collection, or midline shift. Atherosclerotic calcifications of the cavernous carotids and carotid siphons. Skull base and calvarium: The visualized paranasal sinuses and mastoid air cells demonstrate no acute or significant findings. The visualized orbits are grossly unremarkable. Calvarium is intact. IMPRESSION: Subtle area of low-attenuation changes with loss of allen-white differentiation in the right frontal lobe and hyperdense right MCA sign, suspicious for acute ischemia. Findings were discussed with Dr. Lerma by Dr. Biggs on 08/07/2025 at 11:31 PM. Please note that all CT scans at this facility use dose modulation, iterative reconstruction, and/or weight-based dosing when appropriate to reduce radiation dose to as low as reasonably achievable. Dictated by Tj Biggs MD @ 08/07/2025 11:34:41 PM (Electronically Signed)
--- OUTSIDE RECORDS SUMMARY | 2025-08-07 22:52 | XMS_ITS | Clinical Summary ---
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 No current or recent notable concern for acute bleed as cause Hemoglobin 8.8, baseline 10.8-9.2 Ongoing management with PCP Melanoma in situ of right upper limb 08/05/2018 Essential hypertension 03/11/2018 Encounters Date Type Department Care Team Description 06/23/2025 2:00 PM CDT Office Visit [facility] [address] [place] [phone] Hoang Galvez MD History of acute kidney injury (Primary Dx); Urinary tract infection, not otherwise specified; Hydroureteronephrosi s 05/18/2025 Documentation Only [facility] [address] [place] [phone] No, Pcp 05/18/2025 Documentation Only [facility] [address] [place] [phone] No, Pcp from Last 3 Months Family [...] patient's age to complete this topic Insurance [facility] Medicare Care Teams Diploma Dental Assistant Relationship Specialty Start Date End Date VotelAxel MD [address] [place] [address] PCP - General Family Medicine 05/18/25
--- OUTSIDE RECORDS SUMMARY | 2025-08-07 22:52 | XMS_ITS ---
Author Name Interface, [id number] lity Address [address] [address] [facility] On[facility] Address [address] [address] Support Name Relationship Address Phone Jesse Wei [...] use of real-time audio and video via [employer]. ??Alyssa has provided written consent to conduct this visit via telemedicine. ??The patient participated in this visit, noted that her home health RN was in the room however he/she did not participate in the visit. ??The patient is located in their home and I, Dr. Carol Branham am located in [facility].?? History today was provided by??chart review and patient report.?? Cancer diagnosis began with development of acute renal failure.?? Admitted to [place] with this December 2024. Found to have cervical mass and bilateral hydronephrosis.?? Biopsy confirmed SCC, PET showed disease extension into uterus, bladder wall. Completed concurrent chemoradiation with immunotherapy, followed by brachytherapy. Admitted with complicated UTI earlier this month.?? Treatments have been through her local Oncology team and [place].?? Anticipates a follow up PET in June.?? [...] will take Tylenol at times for this, 3s878pq or 0i368gx.?? Feels that currently it is not severe [...] the guidance of her local Oncologist and [place].?? Please see below.?? Current Decision Making Capacity [...] caring for ALYSSA Carol Branham MD Physician [phone] cc:Axel Palomo MD Electronically signed by Carol Branham MD 05/14/2025 09:56 CDT
--- OUTSIDE RECORDS SUMMARY | 2025-08-07 22:53 | XMS_ITS ---
Author Name Interface, [id number] lity Address [address] [address] [facility] On[facility] Address [address] [address] Support Name Relationship Address Phone Jesse Wei [...] use of real-time audio and video via [employer]. ??Alyssa has provided written consent to conduct [...] development of acute renal failure.?? Admitted to [place] with this December 2024. Found to have cervical mass and bilateral hydronephrosis.?? Biopsy confirmed SCC, PET showed disease extension into uterus, bladder wall. Completed concurrent chemoradiation with immunotherapy, followed by brachytherapy. Admitted with complicated UTI earlier this month.?? Treatments have been through her local Oncology team and [place].?? Anticipates a follow up PET in June.?? [...] will take Tylenol at times for this, 5a556wb or 1n676xi.?? Feels that currently it is not severe [...] the guidance of her local Oncologist and [place].?? Please see below.?? Current Decision Making Capacity [...] related concerns.?? Should Alyssa resume care within [facility], we would be happy to see her in follow up to screen for further care needs.?? Total of??32??minutes were spent on this encounter, including video visit from??954AM - 1016AM??andremaining time spent in documentation, chart review.?? Thank you for including me in caring for ALYSSA Carol Branham MD Physician [phone] cc:Axel Palomo MD Electronically signed by Carol Branham MD 05/14/2025 09:56 CDT
--- OUTSIDE RECORDS SUMMARY | 2025-08-07 22:53 | XMS_ITS ---
Author Name Interface, [id number] lity Address [address] [address] [facility] On[facility] Address [address] [address] Support Name Relationship Address Phone Jesse Wei [...] use of real-time audio and video via [employer]. ??Alyssa has provided written consent to conduct [...] development of acute renal failure.?? Admitted to [place] with this December 2024. Found to have cervical mass and bilateral hydronephrosis.?? Biopsy confirmed SCC, PET showed disease extension into uterus, bladder wall. Completed concurrent chemoradiation with immunotherapy, followed by brachytherapy. Admitted with complicated UTI earlier this month.?? Treatments have been through her local Oncology team and [place].?? Anticipates a follow up PET in June.?? [...] will take Tylenol at times for this, 5a180tt or 0u584ao.?? Feels that currently it is not severe [...] the guidance of her local Oncologist and [place].?? Please see below.?? Current Decision Making Capacity [...] concerns.?? Should Alyssa resume care within [facility], we would be happy to see her in follow up to screen for further care needs.?? Total of??32??minutes were spent on this encounter, including video visit from??954AM - 1016AM??andremaining time spent in documentation, chart review.?? Thank you for including me in caring for ALYSSA Carol Branham MD Physician [phone] cc:Axel Palomo MD Electronically signed by Carol Branham MD 05/14/2025 09:56 CDT
--- OUTSIDE RECORDS SUMMARY | 2025-08-07 22:53 | XMS_ITS ---
Author Name Interface, [id number] lity Address [address] [address] [facility] Oncology Address [address] [address] Support Name Relationship Address Phone Jesse Wei [...] use of real-time audio and video via [employer]. ??Alyssa has provided written consent to conduct this visit via telemedicine. ??The patient participated in this visit, noted that her home health RN was in the room however he/she did not participate in the visit. ??The patient is located in their home and I, Dr. Carol Branham am located in [facility].?? History today was provided by??chart review and patient report.?? Cancer diagnosis began with development of acute renal failure.?? Admitted to [place] with this December 2024. Found to have cervical mass and bilateral hydronephrosis.?? Biopsy confirmed SCC, PET showed disease extension into uterus, bladder wall. Completed concurrent chemoradiation with immunotherapy, followed by brachytherapy. Admitted with complicated UTI earlier this month.?? Treatments have been through her local Oncology team and [place].?? Anticipates a follow up PET in June.?? [...] will take Tylenol at times for this, 2d805to or 8k649fx.?? Feels that currently it is not severe [...] the guidance of her local Oncologist and [place].?? Please see below.?? Current Decision Making Capacity [...] concerns.?? Should Alyssa resume care within [facility], we would be happy to see her in follow up to screen for further care needs.?? Total of??32??minutes were spent on this encounter, including video visit from??954AM - 1016AM??andremaining time spent in documentation, chart review.?? Thank you for including me in caring for ALYSSA Carol Branham MD Physician [phone] cc:Axel Palomo MD Electronically signed by Carol Branham MD 05/14/2025 09:56 CDT
--- OUTSIDE RECORDS SUMMARY | 2025-08-07 22:54 | XMS_ITS ---
Author Name Interface, [id number] lity Address [address] [address] [facility] Oncology Address [address] [address] Support Name Relationship Address Phone Jesse Wei [...] use of real-time audio and video via [employer]. ??Alyssa has provided written consent to conduct this visit via telemedicine. ??The patient participated in this visit, noted that her home health RN was in the room however he/she did not participate in the visit. ??The patient is located in their home and I, Dr. Carol Branham am located in [facility].?? History today was provided by??chart review and patient report.?? Cancer diagnosis began with development of acute renal failure.?? Admitted to [place] with this December 2024. Found to have cervical mass and bilateral hydronephrosis.?? Biopsy confirmed SCC, PET showed disease extension into uterus, bladder wall. Completed concurrent chemoradiation with immunotherapy, followed by brachytherapy. Admitted with complicated UTI earlier this month.?? Treatments have been through her local Oncology team and [place].?? Anticipates a follow up PET in June.?? [...] will take Tylenol at times for this, 7x003np or 5v443rb.?? Feels that currently it is not severe [...] the guidance of her local Oncologist and [place].?? Please see below.?? Current Decision Making Capacity [...] Should Alyssa resume care within [facility], we would be happy to see her in follow up to screen for further care needs.?? Total of??32??minutes were spent on this encounter, including video visit from??954AM - 1016AM??andremaining time spent in documentation, chart review.?? Thank you for including me in caring for ALYSSA Carol Branham MD Physician [phone] cc:Axel Palomo MD Electronically signed by Carol Branham MD 05/14/2025 09:56 CDT
--- OUTSIDE RECORDS SUMMARY | 2025-08-07 22:54 | XMS_ITS ---
Author Name Interface, [employer] Address [address] [address] [facility] Address [address] [address] Support Name Relationship Address Phone Jesse Wei [...] use of real-time audio and video via [employer]. ??Alyssa has provided written consent to conduct this visit via telemedicine. ??The patient participated in this visit, noted that her home health RN was in the room however he/she did not participate in the visit. ??The patient is located in their home and I, Dr. Carol Branham am located in [facility].?? History today was provided by??chart review and patient report.?? Cancer diagnosis began with development of acute renal failure.?? Admitted to [facility] with this December 2024. Found to have cervical mass and bilateral hydronephrosis.?? Biopsy confirmed SCC, PET showed disease extension into uterus, bladder wall. Completed concurrent chemoradiation with immunotherapy, followed by brachytherapy. Admitted with complicated UTI earlier this month.?? Treatments have been through her local Oncology team and [place].?? Anticipates a follow up PET in June.?? [...] will take Tylenol at times for this, [id number] or 0p093ws.?? Feels that currently it is not severe [...] the guidance of her local Oncologist and [place].?? Please see below.?? Current Decision Making Capacity [...] resume care within [facility], we would be happy to see her in follow up to screen for further care needs.?? Total of??32??minutes were spent on this encounter, including video visit from??954AM - 1016AM??andremaining time spent in documentation, chart review.?? Thank you for including me in caring for ALYSSA Carol Branham MD Physician [phone] cc:Axel Palomo MD Electronically signed by Carol Branham MD 05/14/2025 09:56 CDT
--- OUTSIDE RECORDS SUMMARY | 2025-08-07 22:55 | XMS_ITS | Clinical Summary ---
Author Organization [facility] Address [address] [place] [address] Care Team Providers [facility] Manager Name Role Phone Votel, Axel Thomas MD Primary Care Provider + Allergies Active Allergy Reactions Criticality Noted Date Comments Calcium Chloride Vomiting Low 08/02/2025 Ciprofloxacin Diarrhea,Myalgia 07/15/2025 Fentanyl Vomiting High 07/31/2025 Medications coenzyme q10 (Co Q-10) 100 mg cap Take 1 Capsule (100 mg) by mouth once daily. 0 022 Active miscellaneous medical supply (Blood Pressure Cuff) miscIndications:Es sential hypertension As directed. Home automatic blood pressure cuff. 1 Each 024 Active Non-Adherent Bandage 4 X 4 spgeIndications:Bi lateral hydronephrosis Apply topically to affected area(s). Apply around drain twice per week and as needed if dressing wet or loose. 100 Each 025 Active Adhesive Tape (Medipore H) 3 X 10 -yard tapeIndications:Bi lateral hydronephrosis Apply topically to affected area(s). 3 Each 025 Active traZODone (DESYREL) 50 mg tabletIndications: Insomnia, idiopathic TAKE 1 TABLET BY MOUTH AT BEDTIME 93 Tablet 025 Active sennosides-docusat e (Senna with Docusate Sodium) (8.6-50 mg) tablet Take by mouth two times daily. 2 tablets in AM, 1 tablet in PM Active melatonin 3 mg tablet Take 6 mg by mouth once daily in the evening. [place] administration timing is 2-3 hours before bedtime. Active krill/om-3/dha/epa /phospho/ast (ANTARCTIC KRILL OIL ORAL) Take 4 Capsules by mouth once daily. Active enoxaparin (LOVENOX) 60 mg/0.6 mL injectionIndicatio ns:Acute pulmonary embolism with acute cor pulmonale, unspecified pulmonary embolism type (HC) Inject 60 mg (0.6 ml) subcutaneously every 12 hours. 16.8 mL 07/29/20 12:44 PM WAREHOUSE PRICING AND INVENTORY CLERK Active carvediloL (COREG) 25 mg tabletIndications: Essential hypertension Take 0.5 Tablets (12.5 mg) by mouth two times daily with meals. 180 Tablet 3 Active cholecalciferol (Vitamin D-3) 2,000 unit capsule Take 1 Capsule (2,000 units) by mouth once daily. 0 022 2024 Discontinued (Pharmacist change per medication history (E-cancel not sent)) fish oil-omega-3 fatty acids (Fish OiL) 1,200-360 mg cap Take 1 Capsule by mouth two times daily. One capsule is 1200 mg-360 mg 2024 Discontinued (*Patient states no longer taking) acetaminophen 325 mg tabletIndications: Malignant neoplasm of cervix, unspecified site (HC) Take 2 Tablets (650 mg) by mouth every 4 hours if needed for Pain (For mild pain.). Max acetaminophen dose: 4000mg in 24 hrs. 180 Tablet 01/15/20 12:03 PM CDT 2024 Discontinued (Pharmacist change per medication history (E-cancel not sent)) polyethylene glycoL 17 gram/scoop powderIndications: Malignant neoplasm of cervix, unspecified site (HC),Constipation, unspecified constipation type [The details of the medication are not available because there are pending changes by a home health clinician.] 238 g 01/15/20 12:03 PM CDT 2024 Discontinued (*Patient states no longer taking) carvediloL 25 mg tabletIndications: HTN (hypertension) Take 1 Tablet (25 mg) by mouth two times daily with meals. 180 Tablet 3 2024 Discontinued (*IP Discontinued ) prochlorperazine 10 mg tablet Take 10 mg by mouth every 6 hours if needed for Nausea/Vomiting. 2024 Discontinued (*Patient states no longer taking) OLANzapine 2.5 mg tablet Take 2.5 mg by mouth one time if needed for Sleep. 2024 Discontinued (*Patient states no longer taking) sennosides-docusat e (SENOKOT S) (8.6-50 mg) tabletIndications: Constipation, unspecified constipation type Take 1 Tablet by mouth two times daily. 100 Tablet 11 2024 Discontinued (Pharmacist change per medication history (E-cancel not sent)) apixaban (ELIQUIS) 5 mg tabletIndications: pulmonary thromboembolism Take 10 mg by mouth two times daily. 10 mg BID x 7 days, followed by 5 mg BID (started 07/16) 2024 apixaban (ELIQUIS) 5 mg tabletIndications: pulmonary thromboembolism Take 5 mg by mouth two times daily. Indications: a clot in the lung 2024 Discontinued (*IP Discontinued ) trimethoprim-sulfa methoxazole 160-800 mg tab Take 1 Tablet by mouth two times daily. 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 Fibroid uterus 01/06/2025 Bright red blood per rectum 01/06/2025 Constipation 01/06/2025 Post-menopausal bleeding 01/06/2025 [place] (acute kidney injury) 01/06/2025 Elevated coronary artery calcium score 3 Overview (07/13/2023): CAC>86% 06/2023 Melanoma in situ of upper extremity, right 06/10 Advanced care planning/counseling discussion 01/2019 Overview (04/26/2019): Completed 2012, reviewed w/o change 2017 Pure hypercholesterolemia 06/29/2018 Essential hypertension 03/11/2018 Resolved Problems Problem Noted Date Diagnosed Date Resolved Date Acute pulmonary embolism wit h acute cor pulmonale 07/18/2025 07/23/2025 Acute renal failure 01/06/2025 07/23/20 Acute anemia 01/06/2025 07/23/2025 Metabolic acidosis 01/06/2025 Hyponatremia 01/06/2025 07/23/2025 Encounters Date Type Department Care Team Description 08/05/2025 12:30 PM WAREHOUSE PRICING AND INVENTORY CLERK Home Care Visit [facility] [address] [place] [address] Rocio Vaz, DUYEN SN - LONG VISIT (>90 MINUTES) 08/05/2025 Orders Only [facility] [address] [place] [address] Rubi Almanzar MD Lab 08/05/2025 Orders Only [facility] [address] [place] [address] Rubi Almanzar MD Lab 08/05/2025 Orders Only [facility] [address] [place] [address] Rubi Almanzar MD Lab (Home Health) 08/02/2025 2:30 PM WAREHOUSE PRICING AND INVENTORY CLERK Office Visit [facility] [address] [place] [address] Axel Palomo MD [facility]/ (07/23-07/29 ANW pulmonary elbolism) 08/02/2025 9:15 AM WAREHOUSE PRICING AND INVENTORY CLERK Home Care Visit [facility] [address] [place] [address] Dane Haynes MULTI LINE CLAIMS ADJUSTER - HOME VISIT 08/02/2025 Travel 08/02/2025 Orders Only [facility] [address] [place] [address] Axel Palomo MD Lab (Home Care) 08/02/2025 Orders Only [facility] [address] [place] [address] Rubi Almanzar MD Lab (Home care) 08/01/2025 Patient Outreach [facility] [address] [place] [address] Vesna Kelly, RN Primary RN Care Management; Hospital F/U (Lace=71) 07/31/2025 9:00 AM WAREHOUSE PRICING AND INVENTORY CLERK Home Care Visit [facility] [address] [place] [address] Krista Velasco RN SN - OASIS RESUMPTION OF CARE 07/31/2025 Telephone [facility] [address] [place] [phone] Krista Velasco RN Home Care 07/30/2025 Travel 07/25/2025 1:53 PM WAREHOUSE PRICING AND INVENTORY CLERK Anesthesia Event [facility] [address] [place] [address] Janna Goldstein MD Coleman, Peter William, MD 07/25/2025 Home Care Visit [facility] [address] [place] [address] Krista Velasco RN SN - OASIS TRANSFER 07/25/2025 Home Care Visit [facility] [address] [place] [phone] Krista Velasco RNJAVA WEB APPLICATION DEVELOPER NOTE 07/23/2025 11:18 PM CDT - 07/29/2025 2:50 PM WAREHOUSE PRICING AND INVENTORY CLERK Hospital Encounter [facility] [address] [place] [address] [facility] Hospitalists Of Vasiliy Dickey DO Fredrickson, Bradley Thomas, MD Acute pulmonary embolism with acute cor pulmonale, unspecified pulmonary embolism type (HC) (Primary Dx); Thrombocytopenia Discharge Disposition: Home Health 07/23/2025 Orders Only [facility] Scanner 1 scan: (1-Ord) KIM HUANG ANGIO CHEST PE PROTOCOL, 07/23/2025 07/23/2025 Travel 07/22/2025 3:45 AM CDT Home Care Visit [facility] [address] [place] [address] Quiana Walsh RN SN - WOUND/OSTOMY CHART CONSULT (<30 MIN) 07/22/2025 Telephone [facility] [address] [place] [address] Axel Palomo MD Urinary Problem 07/22/2025 Nurse Triage [facility] [address] [place] [address] Axel Palomo MD Breathing Problem 07/22/2025 Telephone [facility] [address] [place] [address] Axel Palomo MD Concerns (Health update triage transfer) 07/21/2025 2:30 PM CDT Office Visit [facility] [address] [place] [address] Axel Palomo MD Hospital F/U (ANW, 07/17/25, pulmonary embolism) 07/20/2025 1:00 PM CDT Home Care Visit [facility] [address] [place] [phone] Krista Velasco, RN SN - OASIS START OF CARE 07/20/2025 Travel 07/20/2025 Orders Only [facility] [address] [place] [address] Axel Palomo MD <No scans attached> 07/20/2025 Telephone [facility] [address] [place] [phone] Krista Velasco, log deckman 07/20/2025 Plan of Care Documentation [facility] [address] [place] [phone] 07/20/2025 Patient Outreach [facility] [address] [place] [address] Genia Fuentes, RN Primary RN Care Management; Hospital F/U (LACE 68) 07/19/2025 Home Care Visit [facility] [address] [place] [phone] Krista Velasco, DUYEN EPISODE DISCHARGE 07/19/2025 Home Care Visit [facility] [address] [place] [phone] Sabrina Howard RN SN - OASIS TRANSFER 07/18/2025 Home Care Visit [facility] [address] [place] [address] Sabrina Howard RN CARE TRANSITION NOTE 07/17/2025 6:39 PM CDT - 07/19/2025 1:50 PM CDT Hospital Encounter [facility] [address] [place] [address] Drew Parmar, Albert Jackson MD Residents, Icu Annie Ivey MD Acute pulmonary embolism with acute cor pulmonale, unspecified pulmonary embolism type (HC) (Primary Dx); Uterine/cervical mass with concern for bladder and rectal invasion Discharge Disposition: Home Self Care 07/17/2025 Orders Only [facility] Scanner 1 scan: (1-Ord) [facility], CT ABDOMEN PELVIS W CON, 07/17/2025 07/17/2025 Orders Only [facility] Scanner 1 scan: (1-Ord) [facility], CT ANGIO CHEST PE PROTOCOL, 07/17/2025 07/15/2025 9:00 AM CDT Office Visit [facility] [address] [address] Shahbaz Gaviria MD Consult (Recurring urinary infections. ) 07/15/2025 Orders Only [facility] Scanner 1 scan: (1-Ord) [place], ANGIO CHEST PE PROTOCOL, 07/15/2025 07/14/2025 Orders Only [facility] Scanner 1 scan: (1-Ord) [place], CHEMISTRY, 07/14/2025 07/14/2025 Orders Only [facility] Scanner 1 scan: (1-Ord) [facility], CT ABDOMEN PELVIS W/ CON, 07/14/2025 07/14/2025 Travel 07/12/2025 10:00 AM CDT Home Care Visit [facility] [address] [place] [phone] Krista Velasco, DUYEN SN - OASIS RECERTIFICATION 07/12/2025 9:00 AM CDT Home Care Visit [facility] [address] [place] [phone] Dane Haynes MULTI LINE CLAIMS ADJUSTER - HOME VISIT 07/12/2025 Plan of Care Documentation [facility] [address] [place] [address] 07/12/2025 Telephone [facility] [address] [place] [phone] Krista Velasco, log deckman 07/11/2025 10:25 AM CDT Office Visit [facility] [address] [place] [address] Axel Palomo MD Abdominal Pain (Constipated, not sleeping); Results (PET scan, wants clarification) 07/11/2025 Telephone [facility] [address] [place] [address] Axel Palomo MD Appointment (Request appointment for New Patient and Consult ) 07/11/2025 Travel 07/06/2025 10:00 AM CDT Home Care Visit [facility] [address] [place] [phone] Too Ayala, PT PT - DISCIPLINE DISCHARGE 07/06/2025 Travel 07/05/2025 10:00 AM CDT Home Care Visit [facility] [address] [place] [phone] Krista Velasco, DUYEN SN - HOME VISIT 07/05/2025 9:15 AM CDT Home Care Visit [facility] [address] [place] [phone] Dane Haynes MULTI LINE CLAIMS ADJUSTER - HOME VISIT 06/30/2025 9:00 AM CDT Home Care Visit [facility] [address] [place] [phone] Krista Velasco, DUYEN SN - HOME VISIT 06/30/2025 Orders Only [facility] Scanner 1 scan: (1-Ord) [facility], SKULL BASE TO THIGHS, 06/30/2025 06/29/2025 9:00 AM CDT Home Care Visit [facility] [address] [place] [phone] Too Ayala, PT PT - HOME VISIT 06/28/2025 9:30 AM CDT Home Care Visit [facility] [address] [place] [phone] Dane Haynes MULTI LINE CLAIMS ADJUSTER - HOME VISIT 06/28/2025 Refill [facility] [address] [place] [address] Axel Palomo MD Refill Request (Trazodone) 06/24/2025 11:00 AM CDT Home Care Visit [facility] [address] [place] [phone] Krista Velasco, DUYEN SN - HOME VISIT 06/24/2025 Telephone [facility] [address] [place] [phone] Krista Velasco, log deckman 06/22/2025 11:30 AM CDT Home Care Visit [facility] [address] [place] [phone] Shanika Joya MSW BALANCE CLERK - INITIAL ASSESSMENT 06/21/2025 9:30 AM CDT Home Care Visit [facility] [address] [place] [phone] Dane Haynes MULTI LINE CLAIMS ADJUSTER - HOME VISIT 06/16/2025 9:30 AM CDT Home Care Visit [facility] [address] [place] [phone] Krista Velasco, DUYEN SN - HOME VISIT 06/15/2025 Home Care Visit [facility] [address] [place] [phone] Shanika Joya MSW CARE COORDINATION 06/14/2025 7:30 AM CDT Home Care Visit [facility] [address] [place] [phone] Dane Haynes MULTI LINE CLAIMS ADJUSTER - HOME VISIT 06/10/2025 2:00 PM CDT Home Care Visit [facility] [address] [place] [address] Drew Dent, PT PT - INITIAL ASSESSMENT 06/10/2025 Orders Only [facility] Scanner 1 scan: (1-Ord) [place], MULTIPLE RESULTS, 06/10/2025 06/10/2025 Travel 06/09/2025 2:30 PM CDT Home Care Visit [facility] [address] [place] [address] Krista Velasco RN SN - HOME VISIT 06/08/2025 Home Care Visit [facility] [address] [place] [address] Drew Dent, PT CARE COORDINATION 06/07/2025 9:15 AM CDT Home Care Visit [facility] [address] [place] [phone] Dane Haynes MULTI LINE CLAIMS ADJUSTER - HOME VISIT 06/07/2025 Orders Only [facility] Scanner 1 scan: (1-Ord) [place], URINE CULTURE, 06/07/2025 06/07/2025 Orders Only [facility] Scanner 1 scan: (1-Ord) [facility], URINE CULTURE, 06/07/2025 06/07/2025 Orders Only [facility] Scanner 1 scan: (1-Ord) [facility], MULTIPLE LABS, 06/07/2025 06/07/2025 Telephone [facility] [address] [place] [address] Axel Palomo MD Urinary Problem 06/07/2025 Nurse Triage [facility] [id number] [place] [address] Axel Palomo MD Urinary Problem 06/02/2025 11:30 AM CDT Home Care Visit [facility] [address] [place] [address] Krista Velasco, DUYEN SN - HOME VISIT 05/26/2025 9:30 AM CDT Home Care Visit [facility] [address] [place] [address], [place] [phone] Petra Carroll LPN CANE FLUME WATCHER - HOME VISIT 05/25/2025 9:00 AM CDT Home Care Visit [facility] [address] [place] [address], [place] [address] Dane Haynes MULTI LINE CLAIMS ADJUSTER - HOME VISIT 05/25/2025 Home Care Visit [facility] [address] [place] [address], [place] [address] Fina Waters, DUYEN CARE COORDINATION 05/19/2025 8:30 AM CDT Home Care Visit [facility] [address] [place] [address], [place] [address] Dane Haynes MULTI LINE CLAIMS ADJUSTER - HOME VISIT 05/18/2025 11:00 AM CDT Home Care Visit [facility] [address] [place] [address], [place] [address] Petra Carroll LPN CANE FLUME WATCHER - HOME VISIT 05/18/2025 Medical Messaging [facility] [address] [place] [address] Axel Palomo MD Nephrology Referral 05/13/2025 1:00 PM CDT Home Care Visit [facility] [address] [place] [address], [place] [address] Krista Velasco RN SN - OASIS RECERTIFICATION 05/13/2025 Plan of Care Documentation [facility] [address] [place] [phone] 05/10/2025 2:30 PM CDT Office Visit [facility] [address] [place] [address] Axel Palomo MD ER Follow up ([place], UTI, 04/29/25) 05/10/2025 10:00 AM CDT Home Care Visit [facility] [address] [place] [address], [place] [address] Krista Velasco RN SN - HOME VISIT 05/10/2025 Travel from Last 3 Months Family History [...] Answer Date Recorded PHQ-2 TOTAL SCORE 0 08/02/2025 Social Connections Answer Date Recorded Do you often feel lonely or isolated from those around you? 0 07/23/2025 Alcohol Use Answer Date Recorded How often [...] you are able to buy more? 1 07/23/2025 Transportation Needs Answer Date Record ed Does lack of transportation keep you from medica l appointments? 1 07/23/2025 Does lack of transportation keep you from work, meetings or getting things that you need? 1 07/23/2025 Housing Stability Answer Date Recorded What is your housing situation today? 1 07/23/2025 Interpersonal Safety Answer Date Record ed Are you being hit, kicked, p ushed or yelled at (see row info)? No 07/23/2025 Interpersonal Safety Abuse 12 - 18 Not on file 07/23/2025 Interpersonal Safety Ambulatory Vulnerability No t on file 07/23/2025 Utilities Answer Date Recorded Do you have trouble paying f or utilities (for example, heat, electricity, water, phone)? 1 07/23/2025 Comments No Sex and Gender Information Value Date Recorded Sex Assigned at Not on file Legal Sex Female 7:12 AM WAREHOUSE PRICING AND INVENTORY CLERK Gender Identity Not on file Sexual Orientation Not on file Obstetrics History Para Term AB IAB SAB Ectopic Multiple Livin g Live Births 0 0 0 0 0 0 0 0 0 0 0 Last Filed Vital Signs Vital Sign Reading Time Taken Comments Blood Pressure 118/72 08/05/2025 12:42 PM WAREHOUSE PRICING AND INVENTORY CLERK Pulse 80 08/05/2025 12:42 PM WAREHOUSE PRICING AND INVENTORY CLERK Temperature 36.7 C (98 F) 08/05/2025 12:42 PM WAREHOUSE PRICING AND INVENTORY CLERK Respiratory Rate 16 08/05/2025 12:42 PM WAREHOUSE PRICING AND INVENTORY CLERK Oxygen Saturation 95% 08/05/2025 12:42 PM WAREHOUSE PRICING AND INVENTORY CLERK on RA at rest Inhaled Oxygen Concentration - - Weight 67.6 kg (149 lb) 08/02/2025 2:33 PM WAREHOUSE PRICING AND INVENTORY CLERK Height 165.1 cm (5' 5) 07/17/2025 6:45 PM CDT Body Mass Index 24.79 07/17/2025 6:45 PM CDT Plan of Treatment Upcoming Encounters Date Type Department Care Team (Late st Contact Info) Description 08/08/2025 1:00 PM WAREHOUSE PRICING AND INVENTORY CLERK Appointment [address] [address] Krista Velasco, DUYEN 08/09/2025 9:15 AM WAREHOUSE PRICING AND INVENTORY CLERK Appointment [address] [phone] Dane Haynes 08/10/2025 4:00 AM WAREHOUSE PRICING AND INVENTORY CLERK Appointment [address] [address] Krista Velasco, DUYEN 08/12/2025 4:00 AM WAREHOUSE PRICING AND INVENTORY CLERK Appointment [address] [address] Krista Velasco, DUYEN 08/16/2025 4:00 AM WAREHOUSE PRICING AND INVENTORY CLERK Appointment [address] [phone] Krista Velasco, DUYEN 08/16/2025 5:00 AM WAREHOUSE PRICING AND INVENTORY CLERK Appointment [address] [address] Dnae Haynes 08/23/2025 4:00 AM WAREHOUSE PRICING AND INVENTORY CLERK Appointment [address] [address] Krista Velasco, DUYEN 08/23/2025 5:00 AM WAREHOUSE PRICING AND INVENTORY CLERK Appointment [address] [address] Dane Haynes 08/30/2025 4:00 AM WAREHOUSE PRICING AND INVENTORY CLERK Appointment [facility] [address] [place] [phone] Krista Velasco RN 08/30/2025 5:00 AM WAREHOUSE PRICING AND INVENTORY CLERK Appointment [address] [phone] Dane Haynes 09/01/2025 1:15 PM WAREHOUSE PRICING AND INVENTORY CLERK Office Visit [facility] [address] [place] [address] Axel Palomo MD [address] [place] [address] 09/06/2025 4:00 AM WAREHOUSE PRICING AND INVENTORY CLERK Appointment [address] [address] Krista Velasco RN 09/06/2025 5:00 AM WAREHOUSE PRICING AND INVENTORY CLERK Appointment [address] [phone] Dane Haynes 09/13/2025 4:00 AM WAREHOUSE PRICING AND INVENTORY CLERK Appointment [facility] [phone] [place] [address], [place] [address] Krista Velasco RN 09/13/2025 7:00 AM WAREHOUSE PRICING AND INVENTORY CLERK Appointment [address] [phone] Dane Haynes Health Maintenance Due Date Last Done Comments Tetanus booster 1960 Pneumococcal series for age 50+ (1 of 2 - PCV) 1968 Zoster (shingles) series for age 50+ (1 of 2) 1968 DEXA/DXA scan for age 65+ 2014 RSV vaccine for adults or (1 - 1-dose 75+ series) 2024 Influenza Vaccine (#1) 2025 Medicare Wellness for age 65+ 06/15/2025 06/14/2024, 06/12/2023, 06/10/2022, Additional history exists Fecal testing sDNA-FIT (Cologuard) for age 45-75 06/18/2025 06/18/2022 BMI (ht and wt on same day) for age 18+ 07/15/2026 07/15/2025, 10/14/2024, 09/30/2024, Additional history exists Depression screening for age 12+ 08/02/2026 08/02/2025, 06/12/2023, 05/21/2021, Additional history exists Lipids for age 45-75 01/18/2030 01/18/2025, 09/09/2024, 06/10/2024, Additional history exists Hepatitis C screening for age 18-79 Completed 06/11/2023 Hepatitis B series for 19+ Aged Out N o longer eligible based on patient's age to complete this topic Procedures Procedure Name Priority Date/Time Associated Diagnosis Comments RED CELL MORPHOLOGY Routine 08/05/2025 1 :00 PM WAREHOUSE PRICING AND INVENTORY CLERK Squamous cell carcinoma of cervix (HC) PLATELET ESTIMATE Routine 08/05/2025 1:0 0 PM WAREHOUSE PRICING AND INVENTORY CLERK Squamous cell carcinoma of cervix (HC) CBC WITH AUTO DIFFERENTIAL Routine 08/05/2025 1:00 PM WAREHOUSE PRICING AND INVENTORY CLERK Squamous cell carcinoma of cervix (HC) CBC WITH AUTO DIFFERENTIAL Routine 08/05/2025 1:00 PM WAREHOUSE PRICING AND INVENTORY CLERK Squamous cell carcinoma of cervix (HC) CREATININE Early AM 07/29/2025 6:18 AM WAREHOUSE PRICING AND INVENTORY CLERK APTT Early AM 07/29/2025 6:18 AM WAREHOUSE PRICING AND INVENTORY CLERK HEMOGLOBIN Early AM 07/29/2025 6:18 AM WAREHOUSE PRICING AND INVENTORY CLERK PLATELET COUNT Early AM 07/29/2025 6:18 AM WAREHOUSE PRICING AND INVENTORY CLERK SCAN-CARDIAC STRIP 07/29/2025 1: 11 AM [employer]AREHOUSE [employer]ICING AND INVENTORY CLERK SCAN-CARDIAC STRIP 07/28/2025 8: 14 PM [employer]AREHOUSE [employer]ICING AND INVENTORY CLERK IR PERCUTANEOUS TUBE CHANGE Routine 07/28/2025 10:06 AM [employer]HOU[employer]ICING AND INVENTORY CLERK APTT Timed 07/28/2025 5:04 AM [employer]HOU[employer]ICING AND INVENTORY CLERK CREATININE Early AM 07/28/2025 5:04 AM [employer]HOU[employer]ICING AND INVENTORY CLERK ELECTROLYTE PANEL Early AM 07/28/2025 5:0 4 AM [employer]HOU[employer]ICING AND INVENTORY CLERK HEMOGLOBIN Early AM 07/28/2025 5:04 AM [employer]HOU[employer]ICING AND INVENTORY CLERK PLATELET COUNT Early AM 07/28/2025 5:04 AM [employer]HOUSE [employer]ICING AND INVENTORY CLERK SCAN-CARDIAC STRIP 07/28/2025 12:57 AM [employer]HOU[employer]ICING AND INVENTORY CLERK HEMOGLOBIN Timed 07/27/2025 6:17 PM [employer]HOU[employer]ICING AND INVENTORY CLERK SCAN-CARDIAC STRIP 07/27/2025 3: 04 PM WAREHOUSE PRICING AND INVENTORY CLERK XR CHEST 1 VIEW PORTABLE Routine 07/27/2025 9:02 AM W[employer]HOUSE [employer]ICING AND INVENTORY CLERK HEMOGLOBIN MERCEDEZ 07/27/2025 6:29 AM [employer]HOU[employer]ICING AND INVENTORY CLERK BASIC METABOLIC PANEL Early AM 07/27/2025 6:29 AM [employer]HOU[employer]ICING AND INVENTORY CLERK APTT Early AM 07/27/2025 6:29 AM [employer]HOU[employer]ICING AND INVENTORY CLERK PLATELET COUNT Early AM 07/27/2025 6:29 AM [employer]HOU[employer]ICING AND INVENTORY CLERK TRANSFUSE RBC (NURSE COMMUNICATION ORDER) STAT 07/27/2025 2:37 AM W[employer]HOUSE [employer]ICING AND INVENTORY CLERK RBC W/O TYPE & SCREEN STAT 07/27/2025 1:28 AM [employer]HOU[employer]ICING AND INVENTORY CLERK RED BLOOD CELLS EA UNIT STAT 07/27/2025 1:26 AM [employer]HOUSE [employer]ICING AND INVENTORY CLERK HEMOGLOBIN Timed 07/27/2025 12:51 AM [employer]HOUSE [employer]ICING AND INVENTORY CLERK SCAN-CARDIAC STRIP 07/27/2025 12:38 AM [employer]HOU[employer]ICING AND INVENTORY CLERK HEMOGLOBIN Timed 07/26/2025 7:30 PM [employer]HOU[employer]ICING AND INVENTORY CLERK HEMOGLOBIN Timed 07/26/2025 12:40 PM [employer]HOU[employer]ICING AND INVENTORY CLERK TRANSFUSE RBC (NURSE COMMUNICATION ORDER) STAT 07/26/2025 9:23 AM WAREHOUSE PRICING AND INVENTORY CLERK XR CHEST 1 VIEW PORTABLE Routine 07/26/2025 9:16 AM W[employer]HOUSE [employer]ICING AND INVENTORY CLERK RED BLOOD CELLS EA UNIT STAT 07/26/2025 8:00 AM [employer]HOU[employer]ICING AND INVENTORY CLERK TYPE & SCREEN Today 07/26/2025 6:58 AM [employer]HOUSE PRICING AND INVENTORY CLERK PLATELET ESTIMATE Timed 07/26/2025 5:5 5 AM [employer]HOUSE [employer]ICING AND INVENTORY CLERK HEMOGLOBIN Early AM 07/26/2025 5:55 AM [employer]HOU[employer]ICING AND INVENTORY CLERK PLATELET COUNT Early AM 07/26/2025 5:55 AM [employer]HOU[employer]ICING AND INVENTORY CLERK HAPTOGLOBIN MERCEDEZ 07/26/2025 5:09 AM W[employer]HOUSE PRICING AND INVENTORY CLERK APTT Early AM 07/26/2025 5:09 AM [employer]HOUSE [employer]ICING AND INVENTORY CLERK BASIC METABOLIC PANEL Early AM 07/26/2025 5:09 AM [employer]HOUSE PRICING AND INVENTORY CLERK SCAN-CARDIAC STRIP 07/26/2025 1: 15 AM WAREHOUSE PRICING AND INVENTORY CLERK CBC W PLT NO DIFF STAT 07/25/2025 6:0 5 PM [employer]AREHOUSE PRICING AND INVENTORY CLERK XR CHEST 1 VIEW PORTABLE STAT 07/25/2025 4:21 PM WAREHOUSE PRICING AND INVENTORY CLERK IR ANGIO PULMONARY Routine 07/25/2025 3: 26 PM [employer]HOUSE [employer]ICING AND INVENTORY CLERK HCHG ACTIVATED CLOTTING TM CV Timed 07/25/2025 2:57 PM [employer]HOUSE [employer]ICING AND INVENTORY CLERK HCHG ACTIVATED CLOTTING TM CV Timed 07/25/2025 2:34 PM [employer]HOUSE [employer]ICING AND INVENTORY CLERK SCAN CORRESP-EKG RESULTS 07/25/2025 11:46 AM W[employer]HOUSE [employer]ICING AND INVENTORY CLERK SCAN CORRESP-LABORATORY RESULTS 07/25/2025 11:46 AM [employer]HOUSE [employer]ICING AND INVENTORY CLERK SCAN CORRESP-IMAGING 07/25/2025 11:46 AM [employer]HOU[employer]ICING AND INVENTORY CLERK APTT Timed 07/25/2025 11:46 AM [employer]HOUSE [employer]ICING AND INVENTORY CLERK ELECTROLYTE PANEL Early AM 07/25/2025 5:3 9 AM [employer]HOUSE [employer]ICING AND INVENTORY CLERK CREATININE Early AM 07/25/2025 5:39 AM [employer]HOU[employer]ICING AND INVENTORY CLERK HEMOGLOBIN Early AM 07/25/2025 5:39 AM [employer]HOUSE PRICING AND INVENTORY CLERK PLATELET COUNT Early AM 07/25/2025 5:39 AM [employer]HOUSE [employer]ICING AND INVENTORY CLERK APTT Timed 07/25/2025 4:04 AM W[employer]HOUSE PRICING AND INVENTORY CLERK SCAN-CARDIAC STRIP 07/25/2025 2: 26 AM [employer]HOUSE [employer]ICING AND INVENTORY CLERK TROPONIN T (HS) ONE TIME Timed 07/24/2025 11:36 PM [employer]HOUSE [employer]ICING AND INVENTORY CLERK TROPONIN T (HS) ONE TIME Timed 07/24/2025 9:27 PM [employer]HOUSE [employer]ICING AND INVENTORY CLERK APTT Timed 07/24/2025 9:27 PM [employer]HOU[employer]ICING AND INVENTORY CLERK GLUCOSE METER Timed 07/24/2025 8:02 PM [employer]HOUSE [employer]ICING AND INVENTORY CLERK ECHO TTE LIMITED W CONTRAST W COLOR W DOPPLER Routine 07/24/2025 7:04 PM [employer]HOUSE [employer]ICING AND INVENTORY CLERK XR CHEST 1 VIEW PORTABLE STAT 07/24/2025 6:29 PM [employer]HOUSE [employer]ICING AND INVENTORY CLERK BLOOD GAS,VENOUS STAT 07/24/2025 6:26 PM [employer]HOU[employer]ICING AND INVENTORY CLERK PRO-BNP STAT 07/24/2025 6:22 PM [employer]HOUSE [employer]ICING AND INVENTORY CLERK TROPONIN T (HS) ACUTE W/2HR REFLEX STAT 07/24/2025 6:22 PM [employer]HOU[employer]ICING AND INVENTORY CLERK LACTATE VENOUS STAT 07/24/2025 6:22 PM [employer]HOUSE [employer]ICING AND INVENTORY CLERK APTT Timed 07/24/2025 2:18 PM [employer]HOU[employer]ICING AND INVENTORY CLERK APTT Today 07/24/2025 7:34 AM [employer]HOU[employer]ICING AND INVENTORY CLERK WHITE BLOOD COUNT MERCEDEZ 07/24/2025 5:3 8 AM [employer]HOUSE [employer]ICING AND INVENTORY CLERK CREATININE Early AM 07/24/2025 5:38 AM [employer]HOUSE [employer]ICING AND INVENTORY CLERK HEMOGLOBIN Early AM 07/24/2025 5:38 AM [employer]HOU[employer]ICING AND INVENTORY CLERK PLATELET COUNT Early AM 07/24/2025 5:38 AM [employer]HOUSE [employer]ICING AND INVENTORY CLERK SCAN-CARDIAC STRIP 07/24/2025 12:59 AM CDT APTT Timed 07/24/2025 12:09 AM CDT SCAN-CT INTERPRETATION 07/23/2025 12:00 AM CDT SCAN-CARDIAC STRIP 07/23/2025 12:00 AM CDT SCAN-CARDIAC STRIP 07/19/2025 7: 30 AM CDT [...] CDT SCAN-LABORATORY REPORT 06/07/2025 12:00 AM CDT LIPID PANEL W REFLEX MEASURED LDL Routine 01/18/2025 2:53 PM CDT Pure hypercholesterolemia ANTI HCV Routine 06/11/2023 12:43 PM CDT Need for hepatitis C screening test SDNA-FIT EXTERNAL (COLOGUARD) Routine 06/18/2022 5:30 AM CDT Screening for colon cancer from Last 3 Months or Most Recently Relevant to Health Maintenance Results * (ABNORMAL) CBC WITH AUTO DIFFERENTIAL (08/05/2025 1:00 PM WAREHOUSE [employer]ICING AND INVENTORY CLERK) Only the most recent of2 resultswithin the time period is included. WHITE BLOOD COUNT 4.6 4.5 - 11.0 thou/cu mm 08/05/2025 2:17 PM [facility] RED BLOOD COUNT 3.12(L) 4.00 - 5.20 mil/cu mm 08/05/2025 2:17 PM [facility] HEMOGLOBIN 9.2(L) 12.0 - 16.0 g/dL 08/05/2025 2:17 PM [facility] HEMATOCRIT 29.8(L) 33.0 - 51.0 % 08/05/2025 2:17 PM [facility] MCV 96 80 - 100 fL 08/05/2025 2:17 PM [facility] MCH 29.5 26.0 - 34.0 pg 08/05/2025 2:17 PM [facility] MCHC 30.9(L) 32.0 - 36.0 g/dL 08/05/2025 2:17 PM [facility] RDW 17.5(H) 11.5 - 15.5 % 08/05/2025 2:17 PM [facility] PLATELET COUNT 78(L) 140 - 440 thou/cu mm 08/05/2025 2:17 PM [facility] MPV 11.2(H) 6.5 - 11.0 fL 08/05/2025 2:17 PM [facility] % NEUT 80.1 % 08/05/2025 2:17 PM [facility] % LYMPH 9.5 % 08/05/2025 2:17 PM [facility] % MONO 9.5 % 08/05/2025 2:17 PM [facility] % EOS 0.9 % 08/05/2025 2:17 PM [facility] % BASO 0.0 % 08/05/2025 2:17 PM [facility] ABSOLUTE NEUTROPHILS 3.7 1.7 - 7.0 thou/cu mm 08/05/2025 2:17 PM [facility] ABSOLUTE LYMPHOCYTES 0.4(L) 0.9 - 2.9 thou/cu mm 08/05/2025 2:17 PM [employer]HOU[employer]ICING AND INVENTORY CLERK [facility] ABSOLUTE MONOCYTES 0.4 <0.9 thou/cu mm 08/05/2025 2:17 PM [employer]HOU[employer]ICING AND INVENTORY CLERK [facility] ABSOLUTE EOSINOPHILS 0.0 <0.5 thou/cu mm 08/05/2025 2:17 PM [employer]HOU[employer]ICING AND INVENTORY CLERK [facility] ABSOLUTE BASOPHILS 0.0 <0.3 thou/cu mm 08/05/2025 2:17 PM W[employer]HOUSE PRICING AND INVENTORY CLERK [facility] Blood BLOOD SPECIMEN / Unknown Non-Lab Venipuncture / Unknown 08/05/2025 1:00 PM [employer]HOU[employer]ICING AND INVENTORY CLERK 08/05/2025 1:54 PM [employer]HOU[employer]ICING AND INVENTORY CLERK us Rubi Almanzar MD HEMATOLOGY Final Result Performing Organization Address City/[facility]/ZIP Co de Phone Number [facility] [address] [place] [address] * RED CELL MORPHOLOGY (08/05/2025 1:00 PM WAREHOUSE PRICING AND INVENTORY CLERK) Pathologist [facility] RBC COMMENT RBC morphology appears normal RBC morphology appears normal, RBC morphology within normal limits for newborns. 08/05/2025 2:16 PM W[employer]HOUSE PRICING AND INVENTORY CLERK [facility] Blood BLOOD SPECIMEN / Unknown Non-Lab Venipuncture / Unknown 08/05/2025 1:00 PM [employer]HOUSE PRICING AND INVENTORY CLERK 08/05/2025 1:54 PM W[employer]HOUSE PRICING AND INVENTORY CLERK us Rubi Almanzar MD HEMATOLOGY Final Result Performing Organization Address City/[facility]/ZIP Co de Phone Number [facility] [address] [place] [address] * (ABNORMAL) PLATELET ESTIMATE (08/05/2025 1:00 PM WAREHOUSE PRICING AND INVENTORY CLERK) Only the most recent of2 resultswithin the time period is included. Pathologist [facility] PLATELET ESTIMATE Decreased (A) Adequate, No estimate 08/05/2025 2:16 PM [employer]HOUSE PRICING AND INVENTORY CLERK [facility] Blood BLOOD SPECIMEN / Unknown Non-Lab Venipuncture / Unknown 08/05/2025 1:00 PM [employer]HOU[employer] PRICING AND INVENTORY CLERK 08/05/2025 1:54 PM [employer]HOUSE PRICING AND INVENTORY CLERK Rubi Almanzar MD HEMATOLOGY Final Result Performing Organization Address City/[facility]/ZIP Co de Phone Number [facility] [address] [place] [address] * (ABNORMAL) PLATELET COUNT (07/29/2025 6:18 AM WAREHOUSE PRICING AND INVENTORY CLERK) Only the most recent of8 resultswithin the time period is included. Pathologist [facility] PLATELET COUNT 71(L) 140 - 440 thou/cu mm 07/29/2025 7:30 AM WAREHOUSE PRICING AND INVENTORY CLERK [facility] MPV 10.9 6.5 - 11.0 fL 07/29/2025 7:30 AM WAREHOUSE PRICING AND INVENTORY CLERK [facility] Blood BLOOD SPECIMEN / Unknown Line/Port / Unknown 07/29/2025 6:18 AM W[employer]HOUSE PRICING AND INVENTORY CLERK 07/29/2025 6:32 AM W[employer]HOUSE PRICING AND INVENTORY CLERK Narrative [facility] - 07/29/2025 7:30 AM WAREHOUSE PRICING AND INVENTORY CLERK Every morning while on IV heparin. Necessary every morning while on IV heparin. Vasiliy Dickey DO HEMATOLOGY Final Resul t Performing Organization Address City/[facility] Co de Phone Number [facility] [address] [place] [address], * (ABNORMAL) HEMOGLOBIN (07/29/2025 6:18 AM WAREHOUSE PRICING AND INVENTORY CLERK) Only the most recent of12 resultswithin the time period is included. Pathologist [facility] HEMOGLOBIN 8.8(L) 12.0 - 16.0 g/dL 07/29/2025 7:30 AM WAREHOUSE PRICING AND INVENTORY CLERK [facility] MCV 92 80 - 100 fL 07/29/2025 7:30 AM WAREHOUSE PRICING AND INVENTORY CLERK [facility] Blood BLOOD SPECIMEN / Unknown Line/Port / Unknown 07/29/2025 6:18 AM WAREHOUSE PRICING AND INVENTORY CLERK 07/29/2025 6:32 AM W[employer]HOUSE PRICING AND INVENTORY CLERK Narrative [facility] - 07/29/2025 7:30 AM WAREHOUSE PRICING AND INVENTORY CLERK Every morning while on IV heparin. Necessary every morning while on IV heparin. Vasiliy Dickey DO HEMATOLOGY Final Resul t Performing Organization Address City/[facility]/ZIP Co de Phone Number [facility] [address] [place] [address], * (ABNORMAL) Creatinine AM (07/29/2025 6:18 AM WAREHOUSE PRICING AND INVENTORY CLERK) Only the most recent of5 resultswithin the time period is included. eGFR 50(L) >90 mL/min/1.7 3m2 07/29/2025 7:09 AM [employer]AREHOUSE [employer]ICING AND INVENTORY CLERK [facility] Comment:As of 2021, eG FR is calculated by the CKD-EPI creatinine equation without race adjustment. eGFR can be influenced by muscle mass, exercise, and diet. The reported eGFR is an estimation only and is only applicable if the renal function is stable. CREATININE 1.14(H) 0.50 - 0.90 mg/dL 07/29/2025 7:09 AM WAREHOUSE PRICING AND INVENTORY CLERK [facility] Blood BLOOD SPECIMEN / Unknown Line/Port / Unknown 07/29/2025 6:18 AM [employer]HOUSE PRICING AND INVENTORY CLERK 07/29/2025 6:32 AM WAREHOUSE PRICING AND INVENTORY CLERK Annie Ivey MD CHEMISTRY Fi nal Result Performing Organization Address City/[facility] Co de Phone Number [facility] [address] [place] [address], * (ABNORMAL) APTT (07/29/2025 6:18 AM WAREHOUSE PRICING AND INVENTORY CLERK) Only the most recent of14 resultswithin the time period is included. APTT 56(H) 25 - 36 sec 07/29/2025 6:56 AM [employer]AREHOUSE PRICING AND INVENTORY CLERK [facility] Blood BLOOD SPECIMEN / Unknown Line/Port / Unknown 07/29/2025 6:18 AM WAREHOUSE PRICING AND INVENTORY CLERK 07/29/2025 6:32 AM WAREHOUSE PRICING AND INVENTORY CLERK Narrative [facility] - 07/29/2025 6:56 AM WAREHOUSE PRICING AND INVENTORY CLERK Therapeutic Range: 59-89 seconds Annie Ivey MD HEMATOLOGY Fi nal Result [facility] [address] [place] [address], [place] * SCAN-CARDIAC STRIP (07/29/2025 1:11 AM WAREHOUSE PRICING AND INVENTORY CLERK) us Scanner OTHER Final Result * SCAN-CARDIAC STRIP (07/28/2025 8:14 PM WAREHOUSE PRICING AND INVENTORY CLERK) us Scanner OTHER Final Result * IR PERCUTANEOUS TUBE CHANGE (07/28/2025 10:06 AM WAREHOUSE PRICING AND INVENTORY CLERK) Anatomical Region Laterality Modality X-Ray Angiograph y Impressions 07/28/2025 10:19 AM [employer]HOUSE [employer]ICING AND INVENTORY CLERK Successful bilateral percutaneous nephrostomy tube exchange using fluoroscopic guidance. Narrative 07/28/2025 10:19 AM [employer]AREHOUSE PRICING AND INVENTORY CLERK PROCEDURE(S): Bilateral nephrostomy tube exchange INDICATION: Sepsis COMPARISON: None CEMENT MIXER DRIVER(S): Oliva Treviño DO SEDATION: Analgesia MEDICATIONS: Fentanyl 200 mcg IV, 1% lidocaine 5 mL SQ REMOVED (NOT SENT): none SAMPLE: none IMPLANTED DEVICE(S): 10 [place]an percutaneous nephrostomy tubes ESTIMATED BLOOD LOSS: <10 mL CONTRAST: Omnipaque 350, 20 mL COMPLICATIONS: None FLUOROSCOPY TIME: Minutes RADIATION DOSE: mGy CONSENT: The risks, benefits, and alternatives of the planned procedure were explained in detail to the patient and/or patient's family/DPOA. Questions were answered, and a written informed consent was obtained. TIME OUT: A verification process was completed by the entire team to confirm the patient, procedure, site, allergies, etc. STERILE PREPARATION: All elements of maximal sterile barrier technique were followed, including use of cap, mask, gown, gloves, drapes, chlorhexidine 2%/isopropyl alcohol/povidone-iodine, and hand hygiene. TECHNIQUE: Patient was placed prone on the fluoroscopy table. Bilateral nephrostomy tubes and adjacent skin were prepped and draped in the usual sterile fashion. The left tube was changed first. An antegrade nephrostogram was performed through the existing nephrostomy. The existing nephrostomy was cut and cannulated with an Amplatz wire which was advanced into the renal pelvis. The existing nephrostomy tube was exchanged over this wire for a new 10 [place] percutaneous nephrostomy tube. The pig tail was coiled within the renal pelvis and contrast injection confirmed correct placement. It was secured to the skin with 2-0 Ethilon suture, covered with a sterile dressing, and connected to a drainage bag. The right upper tube was changed next. An antegrade nephrostogram was performed through the existing nephrostomy. The existing nephrostomy was cut and cannulated with an Amplatz wire which was advanced into the renal pelvis. The existing nephrostomy tube was exchanged over this wire for a new 10 [place]an percutaneous nephrostomy tube. The pig tail was coiled within the renal pelvis and contrast injection confirmed correct placement. It was secured to the skin with 2-0 Ethilon suture, covered with a sterile dressing, and connected to a drainage bag. The right lower tube was changed next. An antegrade nephrostogram was performed through the existing nephrostomy. The existing nephrostomy was cut and cannulated with an Amplatz wire which was advanced into the renal pelvis. The existing nephrostomy tube was exchanged over this wire for a new 10 [place]an percutaneous nephrostomy tube. The pig tail was coiled within the renal pelvis and contrast injection confirmed correct placement. It was secured to the skin with 2-0 Ethilon suture, covered with a sterile dressing, and connected to a drainage bag. FINDINGS: Initial left antegrade nephrostogram demonstrates nephrostomy tube in acceptable position. It was uneventfully exchanged under fluoroscopic guidance. Initial right upper antegrade nephrostogram demonstrates nephrostomy tube in acceptable position. It was uneventfully exchanged under fluoroscopic guidance. Initial right lower antegrade nephrostogram demonstrates nephrostomy tube in acceptable position. It was uneventfully exchanged under fluoroscopic guidance. us Oliva Nigel Bryrosas DO IR Final Resul t * Electrolyte panel AM (07/28/2025 5:04 AM WAREHOUSE PRICING AND INVENTORY CLERK) Only the most recent of2 resultswithin the time period is included. SODIUM 138 136 - 145 mmol/L 07/28/2025 5:38 AM WAREHOUSE PRICING AND INVENTORY CLERK [facility] POTASSIUM 4.0 3.5 - 5.1 mmol/L 07/28/2025 5:38 AM WAREHOUSE PRICING AND INVENTORY CLERK [facility] CHLORIDE 106 98 - 107 mmol/L 07/28/2025 5:38 AM WAREHOUSE PRICING AND INVENTORY CLERK [facility] CO2,TOTAL 23 22 - 29 mmol/L 07/28/2025 5:38 AM WAREHOUSE PRICING AND INVENTORY CLERK [facility] ANION GAP 9 5 - 18 07/28/2025 5:38 AM WAREHOUSE PRICING AND INVENTORY CLERK [facility] Blood BLOOD SPECIMEN / Unknown Non-Lab Venipuncture / Unknown 07/28/2025 5:04 AM W[employer]HOUSE PRICING AND INVENTORY CLERK 07/28/2025 5:12 AM WAREHOUSE PRICING AND INVENTORY CLERK us Annie Ivey MD CHEMISTRY Fi nal Result [facility] [address] [place] [address], [place] * SCAN-CARDIAC STRIP (07/28/2025 12:57 AM WAREHOUSE PRICING AND INVENTORY CLERK) us Scanner OTHER Final Result * SCAN-CARDIAC STRIP (07/27/2025 3:04 PM WAREHOUSE PRICING AND INVENTORY CLERK) us Scanner OTHER Final Result * XR Chest 1 view portable (07/27/2025 9:02 AM WAREHOUSE PRICING AND INVENTORY CLERK) Only the most recent of4 resultswithin the time period is included. Anatomical Region Laterality Modality HEART, THORAX, CHEST Digital Rad iography 07/27/2025 9:51 AM W[employer]HOUSE PRICING AND INVENTORY CLERK Impressions 07/27/2025 9:51 AM WAREHOUSE PRICING AND INVENTORY CLERK No significant change. No active disease. Dictated by David Polanco MD @ Jul 27 2025 9:51AM (Electronically Signed) [email or web address] Narrative 07/27/2025 9:51 AM WAREHOUSE PRICING AND INVENTORY CLERK For Patients: As a result of the Century Cures Act, medical imaging exams and procedure reports are released immediately into your electronic medical record. You may view this report before your referring provider. If you have questions, please contact your health care provider. INDICATION: SOB TECHNIQUE: Portable AP image of the chest COMPARISON: 07/26/2025 FINDINGS: No significant change. Lungs and pleural spaces are clear. Heart, mediastinum and pulmonary vessels normal. No significant osseous abnormality. Procedure Note David Polanco MD - 07/27/2025 For Patients: As a result of the Cures Act, medical imagingexams and procedure reports are released immediately into your electronicmedical record. You may view this report before your referring provider.If you have questions, please contact your health care provider. INDICATION: SOB TECHNIQUE: Portable AP image of the chest COMPARISON: 07/26/2025 FINDINGS: No significant change. Lungs and pleural spaces are clear. Heart,mediastinum and pulmonary vessels normal. No significant osseousabnormality. IMPRESSION: No significant change. No active disease. Dictated by David Polanco MD @ Jul 27 2025 9:51AM (Electronically Signed) [email or web address] us Annie Ivey MD GENERAL IMAGING Fi nal Result * (ABNORMAL) Basic metabolic panel AM (07/27/2025 6:29 AM WAREHOUSE PRICING AND INVENTORY CLERK) Only the most recent of3 resultswithin the time period is included. SODIUM 138 136 - 145 mmol/L 07/27/2025 7:22 AM [facility] POTASSIUM 3.8 3.5 - 5.1 mmol/L 07/27/2025 7:22 AM [facility] CHLORIDE 107 98 - 107 mmol/L 07/27/2025 7:22 AM [facility] CO2,TOTAL 23 22 - 29 mmol/L 07/27/2025 7:22 AM [facility] ANION GAP 8 5 - 18 07/27/2025 7:22 AM [facility] GLUCOSE 98 70 - 99 mg/dL 07/27/2025 7:22 AM [facility] CALCIUM 8.8 8.8 - 10.4 mg/dL 07/27/2025 7:22 AM [facility] Comment: Reference ranges for this test were updated on 07/27/2024 to reflect our healthy population more accurately. Reference range changes are not retroactively applied to results, but previous results using the same methodology can be interpreted in the context of the new reference range. BUN 32(H) 8 - 23 mg/dL 07/27/2025 7:22 AM [facility] CREATININE 1.14(H) 0.50 - 0.90 mg/dL 07/27/2025 7:22 AM [facility] BUN/CREAT RATIO 28(H) 10 - 20 7:22 AM [facility] eGFR 50(L) >90 mL/min/1. 73m2 07/27/2025 7:22 AM [facility] Comment:As of 2021, eG FR is calculated by the CKD-EPI creatinine equation without race adjustment. eGFR can be influenced by muscle mass, exercise, and diet. The reported eGFR is an estimation only and is only applicable if the renal function is stable. Blood BLOOD SPECIMEN / Unknown Non-Lab Venipuncture / Unknown 07/27/2025 6:29 AM WAREHOUSE PRICING AND INVENTORY CLERK 07/27/2025 6:46 AM WAREHOUSE PRICING AND INVENTORY CLERK Annie Ivey MD CHEMISTRY Fi nal Result Performing Organization Address City/[facility]/ZIP Co de Phone Number [facility] [address] [place] [address], * TRANSFUSE RBC (NURSE COMMUNICATION ORDER) (07/27/2025 5:03 AM WAREHOUSE PRICING AND INVENTORY CLERK) Blood BLOOD SPECIMEN / Unknown us Carito Collado MD NURSING BLOOD BANK Final Resu lt * RBC W/O TYPE & SCREEN (07/27/2025 1:28 AM WAREHOUSE PRICING AND INVENTORY CLERK) QUANTITY 1 07/27/2025 1:2 8 AM WAREHOUSE PRICING AND INVENTORY CLERK [facility] Blood BLOOD SPECIMEN / Unknown 07/27/2025 1:26 AM WAREHOUSE PRICING AND INVENTORY CLERK us Carito Collado MD BLOOD BANK Final Result Performing Organization Address City/[facility]/ZIP Co de Phone Number [facility] [address] [place] [phone], [place] [phone] * RED BLOOD CELLS EA UNIT (07/27/2025 1:26 AM WAREHOUSE PRICING AND INVENTORY CLERK) Only the most recent of2 resultswithin the time period is included. [employer]ATCH Compatible Compatible [facility] [employer] LAB BLOOD BANK PRODUCT BLOOD TYPE O Rh Positive [facility] [employer] [facility] BLOOD BANK PRODUCT ID NUMBER [id number] [facility] [employer] LAB BLOOD BANK PRODUCT STATUS Trans[employer] [facility] [employer] B[facility]OD [facility] PRODUCT DESCRIPTION RBC -1 LR Pt1 [facility] inexio BLOOD BANK PRODUCT CODE [id number] [facility] inexio BLOOD BANK ISSUE DATE/TIME 07/27/25 02:03 [facility] [employer] [facility] BLOOD BANK Carito Collado MD BLOOD BANK Edited Result - Final [facility] [employer] LAB BLOOD BANK [address] [place] [address], [place] [phone] * SCAN-CARDIAC STRIP (07/27/2025 12:38 AM WAREHOUSE PRICING AND INVENTORY CLERK) Scanner OTHER Final Result * TRANSFUSE RBC (NURSE COMMUNICATION ORDER) (07/26/2025 11:01 AM WAREHOUSE PRICING AND INVENTORY CLERK) Blood BLOOD SPECIMEN / Unknown Milvia Schaefer MD NURSING BLOOD BANK Final Result * TYPE & SCREEN (07/26/2025 6:58 AM WAREHOUSE PRICING AND INVENTORY CLERK) ABORH O Rh Positive 07/26/2025 8:12 AM WAREHOUSE PRICING AND INVENTORY CLERK [facility] [employer] [place] [facility] BLOOD BANK ANTIBODY SCREEN Negative Negative 07/26/2025 8:12 AM WAREHOUSE PRICING AND INVENTORY CLERK [facility] [employer] LAB BLOOD BANK SPECIMEN EXPIRATION DATE/TIME 07/29/25 23:59 07/26/2025 8:12 AM WAREHOUSE PRICING AND INVENTORY CLERK [facility] [employer] [facility] BLOOD BANK Blood BLOOD SPECIMEN / Unknown Line/Port / Unknown 07/26/2025 6:58 AM WAREHOUSE PRICING AND INVENTORY CLERK 07/26/2025 7:34 AM WAREHOUSE PRICING AND INVENTORY CLERK us Milvia Schafeer MD BLOOD BANK Final Res ult [facility] LAB BLOOD BANK [address] [place] [address], [place] [phone] * HAPTOGLOBIN (07/26/2025 5:09 AM WAREHOUSE PRICING AND INVENTORY CLERK) Pathologist [facility] Haptoglobin 92 30 - 200 mg/dL 07/26/2025 7:15 AM WAREHOUSE PRICING AND INVENTORY CLERK [facility] Blood BLOOD SPECIMEN / Unknown Non-Lab Venipuncture / Unknown 07/26/2025 5:09 AM WAREHOUSE PRICING AND INVENTORY CLERK 07/26/2025 5:26 AM WAREHOUSE PRICING AND INVENTORY CLERK Milvia Schaefer MD CHEMISTRY Final Res ult Performing Organization Address City/[facility]/ZIP Co de Phone Number [facility] [address] [place] [address], [place] * SCAN-CARDIAC STRIP (07/26/2025 1:15 AM WAREHOUSE PRICING AND INVENTORY CLERK) Scanner OTHER Final Result * (ABNORMAL) CBC W PLT NO DIFF (07/25/2025 6:05 PM WAREHOUSE PRICING AND INVENTORY CLERK) WHITE BLOOD COUNT 6.4 4.5 - 11.0 thou/cu mm 07/25/2025 6:29 PM WAREHOUSE PRICING AND INVENTORY CLERK [facility] RED BLOOD COUNT 2.68(L) 4.00 - 5.20 mil/cu mm 07/25/2025 6:29 PM WAREHOUSE PRICING AND INVENTORY CLERK [facility] HEMOGLOBIN 7.9(L) 12.0 - 16.0 g/dL 07/25/2025 6:29 PM WAREHOUSE PRICING AND INVENTORY CLERK [facility] HEMATOCRIT 25.5(L) 33.0 - 51.0 % 07/25/2025 6:29 PM WAREHOUSE PRICING AND INVENTORY CLERK [facility] MCV 95 80 - 100 fL 07/25/2025 6:29 PM WAREHOUSE PRICING AND INVENTORY CLERK [facility] MCH 29.5 26.0 - 34.0 pg 07/25/2025 6:29 PM WAREHOUSE PRICING AND INVENTORY CLERK [facility] MCHC 31.0(L) 32.0 - 36.0 g/dL 07/25/2025 6:29 PM WAREHOUSE PRICING AND INVENTORY CLERK [facility] RDW 15.9(H) 11.5 - 15.5 % 07/25/2025 6:29 PM WAREHOUSE PRICING AND INVENTORY CLERK [facility] PLATELET COUNT 126(L) 140 - 440 thou/cu mm 07/25/2025 6:29 PM WAREHOUSE PRICING AND INVENTORY CLERK [facility] MPV 10.8 6.5 - 11.0 fL 07/25/2025 6:29 PM WAREHOUSE PRICING AND INVENTORY CLERK [facility] NRBC 0.0 % 07/25/2025 6:29 PM WAREHOUSE PRICING AND INVENTORY CLERK [facility] ABS NRBC 0.0 thou /cu mm 07/25/2025 6:29 PM WAREHOUSE PRICING AND INVENTORY CLERK [facility] Blood BLOOD SPECIMEN / Unknown Non-Lab Venipuncture / Unknown 07/25/2025 6:05 PM WAREHOUSE PRICING AND INVENTORY CLERK 07/25/2025 6:11 PM WAREHOUSE PRICING AND INVENTORY CLERK us Candy Weeks MD HEMATOLOGY Final R esult [facility] [address] [address], [place] * IR ANGIO PULMONARY (07/25/2025 3:26 PM WAREHOUSE PRICING AND INVENTORY CLERK) Anatomical Region Laterality Modality X-Ray Angiograph y, Other Impressions 07/27/2025 5:40 PM WAREHOUSE PRICING AND INVENTORY CLERK 1. Successful pulmonary angiogram and aspiration thrombectomy with moderate amount of largely chronic appearing thrombus removed. Good angiographic result. Pulmonary artery MAP decreased from 40 mmHg initially to 24 mmHg at completion. David Meza MD Vascular & Interventional Radiology [facility] [phone] Narrative 07/27/2025 5:40 PM WAREHOUSE PRICING AND INVENTORY CLERK Images from the original result were not included. PROCEDURE(S): Ultrasound guided access right common femoral vein. Venography of right external iliac vein, common iliac vein, and inferior cava. Right pulmonary artery selection, angiography, and aspiration thrombectomy (extirpation of material) of right main pulmonary artery. Right interlobar pulmonary artery selection, angiography, and aspiration thrombectomy (extirpation of material) of right interlobar pulmonary artery. Right upper lobe pulmonary artery selection, angiography, and aspiration thrombectomy (extirpation of material) of right upper lobe pulmonary artery. Left pulmonary artery selection, angiography, and aspiration thrombectomy (extirpation of material) of left main pulmonary artery. Left lower lobe pulmonary artery selection, angiography, and aspiration thrombectomy (extirpation of material) of left lower lobe pulmonary artery. INDICATION: submassive pulmonary embolism COMPARISON: chest CTA 07/23/2025 CEMENT MIXER DRIVER(S): David Meza MD SEDATION: none. Local only. MEDICATIONS: 1% lidocaine 20 mL SQ. Patient arrived on therapeutic heparin which was continued through the case. Additional boluses totalling 6000 units were administered to get act > 250 ACCESS: right common femoral CLOSURE DEVICE: z stitch REMOVED (NOT SENT): moderate amount of chronic appearing PE SAMPLE: none IMPLANTED DEVICE(S): none ESTIMATED BLOOD LOSS: 200 mL CONTRAST: Omnipaque 350, 85 mL COMPLICATIONS: none FLUOROSCOPY TIME: 13.2 minutes RADIATION DOSE: 70 mGy CONSENT: The risks, benefits, and alternatives of the planned procedure were explained in detail to the patient and/or patient's family/DPOA. Questions were answered, and a written informed consent was obtained. TIME OUT: A verification process was completed by the entire team to confirm the patient, procedure, site, allergies, etc. STERILE PREPARATION: All elements of maximal sterile barrier technique were followed, including use of cap, mask, gown, gloves, drapes, chlorhexidine 2%/isopropyl alcohol/povidone-iodine, and hand hygiene. TECHNIQUE: The patient was placed supine on the fluoroscopy table. The right groin was prepped and draped in the usual sterile fashion. Initial ultrasound demonstrates patent and compressible right common femoral vein. An image saved for documentation. Real-time sonographic guidance, the right common femoral vein was accessed with a micropuncture kit. A venogram of the right iliac veins and inferior vena cava was performed to assess for central deep venous thrombosis. The veins were widely patent. A Van Hakeem catheter was advanced over a Littlejohn wire it was manipulated up the inferior vena cava, through the right heart, and into the right pulmonary artery. Pulmonary angiogram was performed. Pulmonary artery pressure measurements were obtained. An Amplatz wire was placed with tip in the right lower lobe pulmonary artery and the catheter and sheath were removed. The access was dilated and a 26 Bel[place]an sheath was placed into the inferior vena cava. 24 [place]an FlowTriever catheter was inserted and positioned in the right main pulmonary artery. Aspiration thrombectomy was performed. After each aspiration, the aspirated blood was filtered through the FlowSaver device to remove thrombus and then returned to the patient. The catheter was repositioned into the right interlobar artery. Aspiration thrombectomy was performed. After a few aspirations, the volume of clot decreased so repeat pulmonary arteriogram demonstrated significant reduction in clot burden in the right main and interlobar artery with persistent poor filling of the right upper lobar artery. Alongside the existing Amplatz wire, a Taeg catheter and Bentson wire were inserted and manipulated into a branch of the right upper lobar artery. A second Amplatz wire was placed and then the wire in the lower lobe was removed which redirected the FlowTriever superiorly. It was advanced into the right upper lobar artery. Repeat aspiration thrombectomy was performed. After a few passes the clot had cleared. And repeat venogram demonstrated no residual filling defect in the right upper lobar artery. The catheter was retracted into the main pulmonary artery and then the Taeg and Bentson wire were used to select the left lower lobar artery. A second Amplatz wire was placed. The Amplatz in the right upper lobe artery was removed. Then the FlowTriever was advanced into the left main pulmonary artery. Left pulmonary angiogram was performed which demonstrates filling defects in the left main pulmonary artery and essentially no flow into the left lower lobar artery. Aspiration thrombectomy was then performed in the left main pulmonary artery. Then the 20 Bel[place]an curve FlowTriever was inserted coaxially through the existing catheter and placed in the left lower lobe pulmonary artery. Aspiration thrombectomy was performed with multiple passes in the left lower lobe pulmonary artery. Completion pulmonary angiogram demonstrates significant reduction in clot burden in the left lung with filling of the left lower lobe pulmonary artery and multiple segmental branches. Pulmonary artery pressures were again obtained. At the conclusion of the case, catheters and wires were removed. Sheath was removed and hemostasis was achieved with Z stitch was placed around the access site. The patient tolerate the procedure well without immediate post procedural complication. FINDINGS: Right external and common iliac veins are widely patent. IVC is patent without free-floating thrombus. Initial pulmonary artery pressure was 81/15 (40). Initial right pulmonary angiogram demonstrates occlusion of the right upper lobe pulmonary artery and large filling defect in the right main pulmonary artery extending into the right interlobar artery. Aspiration thrombectomy performed in right main and right lower lobe artery. Completion right pulmonary angiogram demonstrates significant improvement in clot burden in the right main and interlobar artery. Initial angiogram of right upper lobar artery demonstrates occlusion of vessel. After aspiration thrombectomy, completion venogram demonstrates widely patent vessel. Initial left pulmonary angiogram demonstrates large filling defect in the left main pulmonary artery and occlusion of left lower lobar artery. Aspiration thrombectomy performed in the left main and left lower lobar artery. Completion left pulmonary angiogram demonstrates resolution of large filling defect in the left main and left lower lobar artery and filling of multiple lower lobar artery segmental branches. Completion pulmonary artery pressure was 44/13 (24). us Vanessa Mckeon BROKE BEATER MACHINE OPERATOR IR Final R esult * (ABNORMAL) ACTIVATED CLOTTING TIME [id number] ACT (07/25/2025 2:57 PM WAREHOUSE PRICING AND INVENTORY CLERK) Only the most recent of2 resultswithin the time period is included. [facility] ACTIVATED CLOTTING TIME, POCT 226(H) 74 - 125 sec 07/28/2025 7:22 AM WAREHOUSE PRICING AND INVENTORY CLERK [facility] Blood BLOOD SPECIMEN / Unknown 07/25/2025 2:57 PM WAREHOUSE PRICING AND INVENTORY CLERK 07/28/2025 7:22 AM WAREHOUSE PRICING AND INVENTORY CLERK us Annie Ivey MD HEMATOLOGY Fi nal Result [facility] [address] [place] [address], * SCAN CORRESP-LABORATORY RESULTS (07/25/2025 11:46 AM WAREHOUSE PRICING AND INVENTORY CLERK) Narrative 07/25/2025 11:46 AM WAREHOUSE PRICING AND INVENTORY CLERK Ordered by an unspecified provider. us Other Clinical Staff OTHER Final Resul t * SCAN CORRESP-EKG RESULTS (07/25/2025 11:46 AM WAREHOUSE PRICING AND INVENTORY CLERK) Narrative 07/25/2025 11:46 AM WAREHOUSE PRICING AND INVENTORY CLERK Ordered by an unspecified provider. us Other Clinical Staff OTHER Final Resul t * SCAN CORRESP-IMAGING (07/25/2025 11:46 AM WAREHOUSE PRICING AND INVENTORY CLERK) Anatomical Region Laterality Modality Other Narrative 07/25/2025 11:46 AM WAREHOUSE PRICING AND INVENTORY CLERK Ordered by an unspecified provider. us Other Clinical Staff OTHER Final Resul t * SCAN-CARDIAC STRIP (07/25/2025 2:26 AM WAREHOUSE PRICING AND INVENTORY CLERK) us Scanner OTHER Final Result * (ABNORMAL) TROPONIN T (HS) ONE TIME (07/24/2025 11:36 PM WAREHOUSE PRICING AND INVENTORY CLERK) Only the most recent of2 resultswithin the time period is included. TROPONIN T HS 76(H) 6-10 ng/L ng/L 07/25/2025 12:10 AM WAREHOUSE PRICING AND INVENTORY CLERK [facility] Blood BLOOD SPECIMEN / Unknown Non-Lab Venipuncture / Unknown 07/24/2025 11:36 PM WAREHOUSE PRICING AND INVENTORY CLERK 07/24/2025 11:46 PM WAREHOUSE PRICING AND INVENTORY CLERK Tushar Hernandez MD CHEMISTRY Final R esult [facility] [address] [place] [address], [place] * (ABNORMAL) GLUCOSE METER (07/24/2025 8:02 PM WAREHOUSE PRICING AND INVENTORY CLERK) Only the most recent of6 resultswithin the time period is included. GLUCOSE METER 155(H) 65 - 100 mg/dL 07/24/2025 8:07 PM WAREHOUSE PRICING AND INVENTORY CLERK [facility] Blood BLOOD SPECIMEN / Unknown 07/24/2025 8:02 PM WAREHOUSE PRICING AND INVENTORY CLERK 07/24/2025 8:07 PM WAREHOUSE PRICING AND INVENTORY CLERK Annie Ivey MD CHEMISTRY Fi nal Result [facility] [address] [place] [address], [place] * ECHO TTE LIMITED W CONTRAST W COLOR W DOPPLER (07/24/2025 7:04 PM WAREHOUSE PRICING AND INVENTORY CLERK) PEAK TR VELOCITY 3.1 m/s EJECTION FRACTION 55 - 60% Anatomical Region Laterality Modality Ultrasound 07/24/2025 4:30 PM WAREHOUSE PRICING AND INVENTORY CLERK Narrative 07/24/2025 11:25 PM WAREHOUSE PRICING AND INVENTORY CLERK ECHOCARDIOGRAM ALYSSA PULIDO : 1950 74 years Study Date: 07/24/2025 4:30:08 PM Gender: F BP: 112/78 mmHg Height: 165.00 cm BSA: 1.74 m Weight: 67.00 kg Tech: AL Referring MD: ANNIE IVEY Site: [facility] Reading Location: [facility] IP Patient Location: Inpatient. Procedure: Limited Echo w/ Contrast, Color Doppler and Limited Spectral Doppler. Indication for study: PULMONARY EMBOLISM Cardiac Rhythm: Regular.Study quality: Technically limited. Imaging limitations: This study was subject to imaging limitations due to body habitus and a prominent lung artifact. Final Impressions: Limited Echocardiogram performed 1. Technically limited exam. 2. Normal LV size, normal global systolic function with an estimated EF of 55 - 60%. 3. Right ventricular cavity size is moderately enlarged, global systolic RV function is mildly to moderately reduced. 4. The aortic valve is sclerotic and trileaflet, not evaluated for stenosis. 5. Elevated estimated pulmonary pressures by tricuspid regurgitation velocity and right atrial pressure (38 mmHg plus RAP). 6. The inferior vena cava is dilated, respiratory size variation less than 50%, consistent with elevated right atrial pressure. 7. Trivial pericardial effusion. 8. Echo contrast was administered to enhance visualization of all left ventricular segments. Comparison Compared to prior exam of 07/18/2025: - RV better visualized with echo contrast and appears moderately dilated with reduced systolic function. PA systolic pressure and RA pressure both higher. Chamber Sizes and Function Normal left ventricular size, normal global systolic function with an estimated EF of 55 - 60%. Right ventricular cavity size is moderately enlarged, global systolic RV function is moderately reduced. The ascending aorta is normal sized. Valves, RV Pressures and Diastolic Function The aortic valve is sclerotic and trileaflet, not evaluated for stenosis. The tricuspid valve is normal in structure, mild tricuspid regurgitation. The tricuspid regurgitant velocity is 3.1 m/s, the estimated right ventricular systolic pressure is 38 mmHg plus right atrial pressure. There is elevated estimated pulmonary pressure by tricuspid regurgitation velocity and right atrial pressure. Masses, Effusion, Shunts There is trivial pericardial effusion. The inferior vena cava is dilated, respiratory size variation less than 50%, consistent with elevated right atrial pressure. MEASUREMENTS AND CALCULATIONS 2-D Measurements and LV Function: Ao Sinus ULN 3.7 cm HR 102 bpm Asc Ao 3.2 cm RV Basal Diam 4.9 cm Asc Ao ULN 4.0 cm Tricuspid Valve and estimated PA pressures: TR Vmax 3.1 m/s TAPSE 1.8 cm TR maxG 38 mmHg Pulmonic Valve: PV Vmax 0.7 m/s Contrast documentation: 2 ml diluted Definity, lot #[id number], [facility]# [id number] was administered peripherally to enhance visualization of all left ventricular segments. . This study was interpreted by an [facility] accredited facility. Final Procedure Note Hoang Enriquez MD - 07/24/2025 ECHOCARDIOGRAM ALYSSA PULIDO : 1950 74 years Study Date: 07/24/2025 4:30:08 PM Gender: F BP: 112/78 mmHg Height: 165.00 cm BSA: 1.74 m Weight: 67.00 kg Tech: AL Referring MD: ANNIE IVEY Site: [facility] Reading Location: [facility] Patient Location: Inpatient. Procedure: Limited Echo w/ Contrast, Color Doppler and Limited SpectralDoppler. Indication for study: PULMONARY EMBOLISM Cardiac Rhythm: Regular.Study quality: Technically limited. Imaging limitations: This study was subject to imaging limitations due tobody habitus and a prominent lung artifact. Final Impressions: Limited Echocardiogram performed 1. Technically limited exam. 2. Normal LV size, normal global systolic function with an estimated EFof 55 - 60%. 3. Right ventricular cavity size is moderately enlarged, global systolicRV function is mildly to moderately reduced. 4. The aortic valve is sclerotic and trileaflet, not evaluated forstenosis. 5. Elevated estimated pulmonary pressures by tricuspid regurgitationvelocity and right atrial pressure (38 mmHg plus RAP). 6. The inferior vena cava is dilated, respiratory size variation lessthan 50%, consistent with elevated right atrial pressure. 7. Trivial pericardial effusion. 8. Echo contrast was administered to enhance visualization of all leftventricular segments. Comparison Compared to prior exam of 07/18/2025: - RV better visualized with echo contrast and appears moderately dilatedwith reduced systolic function. PA systolic pressure and RA pressure bothhigher. Chamber Sizes and Function Normal left ventricular size, normal global systolic function with anestimated EF of 55 - 60%. Right ventricular cavity size is moderatelyenlarged, global systolic RV function is moderately reduced. The ascendingaorta is normal sized. Valves, RV Pressures and Diastolic Function The aortic valve is sclerotic and trileaflet, not evaluated for stenosis.The tricuspid valve is normal in structure, mild tricuspid regurgitation.The tricuspid regurgitant velocity is 3.1 m/s, the estimated rightventricular systolic pressure is 38 mmHg plus right atrial pressure. Thereis elevated estimated pulmonary pressure by tricuspid regurgitationvelocity and right atrial pressure. Masses, Effusion, Shunts There is trivial pericardial effusion. The inferior vena cava is dilated,respiratory size variation less than 50%, consistent with elevated rightatrial pressure. MEASUREMENTS AND CALCULATIONS 2-D Measurements and LV Function: Ao Sinus ULN 3.7 cm HR 102 bpm Asc Ao 3.2 cm RV Basal Diam 4.9 cm Asc Ao ULN 4.0 cm Tricuspid Valve and estimated PA pressures: TR Vmax 3.1 m/s TAPSE 1.8 cm TR maxG 38 mmHg Pulmonic Valve: PV Vmax 0.7 m/s Contrast documentation: 2 ml diluted Definity, lot #[id number], [facility]#[id number] was administered peripherally to enhance visualization of allleft ventricular segments. . This study was interpreted by an [facility] accredited facility. Final us Annie Ivey MD ECHO ORD Fi nal Result * (ABNORMAL) BLOOD GAS,VENOUS (07/24/2025 6:26 PM WAREHOUSE PRICING AND INVENTORY CLERK) PH, VENOUS 7.38 7.32 - 7.43 07/24/2025 6:39 PM WAREHOUSE PRICING AND INVENTORY CLERK [facility] PCO2, VENOUS 41 41 - 51 mmHg 07/24/2025 6:39 PM WAREHOUSE PRICING AND INVENTORY CLERK [facility] PO2, VENOUS 41(H) 35 - 40 mmHg 07/24/2025 6:39 PM WAREHOUSE PRICING AND INVENTORY CLERK [facility] HCO3,VENOUS 24 22 - 29 mmol/L 07/24/2025 6:39 PM WAREHOUSE PRICING AND INVENTORY CLERK [facility] BASE EXCESS, VENOUS, POCT -0.8 -2.0 - 3.0 07/24/2025 6:39 PM WAREHOUSE PRICING AND INVENTORY CLERK [facility] O2 SATURATION, VENOUS 67(L) 70 - 75 % 07/24/2025 6:39 PM WAREHOUSE PRICING AND INVENTORY CLERK [facility] PATIENT TEMPERATURE 37.0 Degrees C 07/24/2025 6:39 PM WAREHOUSE PRICING AND INVENTORY CLERK [facility] Blood VENOUS BLOOD SPECIMEN / Unknown Non-Lab Venipuncture / Unknown 07/24/2025 6:26 PM WAREHOUSE PRICING AND INVENTORY CLERK 07/24/2025 6:35 PM WAREHOUSE PRICING AND INVENTORY CLERK us Tushar Hernandez MD CHEMISTRY Final R esult [facility] [address] [place] [address], * (ABNORMAL) TROPONIN T (HS) ACUTE W/2HR REFLEX (07/24/2025 6:22 PM WAREHOUSE PRICING AND INVENTORY CLERK) TROPONIN T HS 63(H) 6-10 ng/L ng/L 07/24/2025 6:58 PM WAREHOUSE PRICING AND INVENTORY CLERK [facility] Blood BLOOD SPECIMEN / Unknown Non-Lab Venipuncture / Unknown 07/24/2025 6:22 PM WAREHOUSE PRICING AND INVENTORY CLERK 07/24/2025 6:28 PM WAREHOUSE PRICING AND INVENTORY CLERK Narrative [facility] - 07/24/2025 6:58 PM WAREHOUSE PRICING AND INVENTORY CLERK hs-cTnT (Elecsys Troponin T Gen 5) concentration (s) above the sex-specific 99th percentile (16 ng/L or greater for males or 11 ng/L or greater for females) are indicative of myocardial injury. If initial hs-cTnT <=100 ng/L at presentation, a 0h/2h ABSOLUTE (ng/L) delta change (rising or falling) of >=10 ng/L suggests a significant change, whereas a 0h/2h delta change <=3 ng/L suggests no significant change. If initial hs-cTnT >100 ng/L at presentation, a 0h/2h/ RELATIVE (percent, %) delta change of 20% is suggested to distinguish patients with acute vs. chronic myocardial injury. There are multiple etiologies that can cause hs-cTnT increases above the 99th percentile (myocardial injury) other than acute myocardial infarction. Clinical context and careful clinical evaluation are critical for diagnosis and risk-stratification. The diagnosis of acute myocardial infarction requires a rising and/or falling pattern in hs-cTnT concentrations with at least one value above the sex-specific 99th percentile PLUS at least one of the following clinical criteria: ischemic symptoms, new or presumed new significant ST-T wave changes or new LBBB, development of pathological Q waves, imaging evidence of new loss of viable myocardium or new regional wall motion abnormality, or identification of intracoronary atherothrombosis or an acute angiographic culprit on coronary angiography. In appropriate low-risk patients with a non-ischemic electrocardiogram without active chest pain with a symptom onset >3-hours without recurrence, a single initial hs-cTnT<6 ng/L identifies patient with a very low risk in emergency department patient population. Tushar Hernandez MD CHEMISTRY Final R esult [facility] [address] [place] [address], * LACTATE VENOUS (07/24/2025 6:22 PM WAREHOUSE PRICING AND INVENTORY CLERK) Only the most recent of2 resultswithin the time period is included. [facility] LACTATE,VENOUS 1.0 0.5 - 2.0 mmol/L 07/24/2025 6:50 PM WAREHOUSE PRICING AND INVENTORY CLERK [facility] [employer] [facility] Blood BLOOD SPECIMEN / Unknown Non-Lab Venipuncture / Unknown 07/24/2025 6:22 PM WAREHOUSE PRICING AND INVENTORY CLERK 07/24/2025 6:28 PM WAREHOUSE PRICING AND INVENTORY CLERK Tushar Hernandez MD CHEMISTRY Final R esult Performing Organization Address [facility]/ZIP Co de Phone Number [facility] [address] [place] [address], [place] * (ABNORMAL) PRO-BNP (07/24/2025 6:22 PM WAREHOUSE PRICING AND INVENTORY CLERK) PRO-BNP 8,763(H) <450 pg/mL 07/24/2025 6:59 PM WAREHOUSE PRICING AND INVENTORY CLERK [facility] Blood BLOOD SPECIMEN / Unknown Non-Lab Venipuncture / Unknown 07/24/2025 6:22 PM WAREHOUSE PRICING AND INVENTORY CLERK 07/24/2025 6:28 PM WAREHOUSE PRICING AND INVENTORY CLERK Narrative [facility] - 07/24/2025 6:59 PM WAREHOUSE PRICING AND INVENTORY CLERK The following cut-points have been suggested for the use of proBNP for the diagnostic evaluation of heart failure (HF) in patient with acute dyspnea. Patients with eGFR >= 60 Diagnosis (rule in CHF) <50 Years Old 450 pg/mL 50 - 75 Years Old 900 pg/mL >75 Years Old 1800 pg/mL Exclusion (rule out CHF) Age Independent 300 pg/mL A cutoff of 1200 pg/mL for patients with an eGFR <60 yields a diagnostic sensitivity of 89% and specificity of 72% for acute congestive heart failure. Tushar Hernandez MD SEND OUTS Final R esult Performing Organization Address [facility]/ZIP Co de Phone Number [facility] [address] [place] [address], [place] * (ABNORMAL) WBC TODAY (07/24/2025 5:38 AM WAREHOUSE PRICING AND INVENTORY CLERK) WHITE BLOOD COUNT 4.0(L) 4.5 - 11.0 thou/cu mm 07/24/2025 9:13 AM WAREHOUSE PRICING AND INVENTORY CLERK [facility] NRBC 0.0 % 07/24/2025 9:13 AM WAREHOUSE PRICING AND INVENTORY CLERK [facility] ABS NRBC 0.0 thou /cu mm 07/24/2025 9:13 AM WAREHOUSE PRICING AND INVENTORY CLERK [facility] Blood BLOOD SPECIMEN / Unknown Non-Lab Venipuncture / Unknown 07/24/2025 5:38 AM WAREHOUSE PRICING AND INVENTORY CLERK 07/24/2025 7:01 AM WAREHOUSE PRICING AND INVENTORY CLERK Narrative [facility] - 07/24/2025 9:13 AM WAREHOUSE PRICING AND INVENTORY CLERK Every morning while on IV heparin. Necessary every morning while on IV heparin. us Annie Ivey MD HEMATOLOGY Fi nal Result [facility] [address] [place] [address], [place] * SCAN-CARDIAC STRIP (07/24/2025 12:59 AM CDT) us Scanner OTHER Final Result * SCAN-CARDIAC STRIP (07/23/2025 12:00 AM CDT) Narrative 07/23/2025 12:00 AM CDT Ordered by an unspecified provider. us Other Clinical Staff OTHER Final Resul t * SCAN-CT INTERPRETATION (07/23/2025 12:00 AM CDT) Only the most recent of5 resultswithin the time period is included. Anatomical Region Laterality Modality Other us Scanner OTHER Final Result * SCAN-CARDIAC STRIP (07/19/2025 7:30 AM CDT) us Scanner OTHER Final Result * POTASSIUM (07/19/2025 4:22 AM CDT) Only the most recent of4 resultswithin the time period is included. POTASSIUM 3.9 3.5 - 5.1 mmol/L 07/19/2025 5:00 AM CDT [facility] Blood BLOOD SPECIMEN / Unknown Line/Port / Unknown 07/19/2025 4:22 AM CDT 07/19/2025 4:29 AM CDT Annie Ivey MD CHEMISTRY Fi nal Result Performing Organization Address City/[facility]/ZIP Co de Phone Number [facility] [address] [place] [address], * MAGNESIUM (07/19/2025 1:06 AM CDT) Only the most recent of3 resultswithin the time period is included. MAGNESIUM 2.2 1.6 - 2.4 mg/dL 07/19/2025 3:02 AM CDT [facility] Blood BLOOD SPECIMEN / Unknown Line/Port / Unknown 07/19/2025 1:06 AM CDT 07/19/2025 1:13 AM CDT Annie Ivey MD CHEMISTRY Fi nal Result Performing Organization Address City/[facility] Co de Phone Number [facility] [address] [place] [address], * SCAN-CARDIAC STRIP (07/18/2025 10:52 PM CDT) [...] Tech: MELLO Referring MD: DREW PARMAR Site: [facility] Reading Location: [facility] Patient Location: Inpatient. Procedure: 2D, Color [...] . This study was interpreted by an [facility] accredited facility. Final Procedure Note Hoang Enriquez MD - 07/18/2025 ECHOCARDIOGRAM ALYSSA PULIDO : 1950 74 years Study Date: 07/18/2025 8:25:02 AM Gender: F BP: 134/90 mmHg Height: 165.00 cm BSA: 1.73 m Weight: 66.00 kg Tech: DW Referring MD: DREW PARMAR Site: [facility] Reading Location: [facility] Patient Location: Inpatient. Procedure: 2D, Color [...] . This study was interpreted by an [facility] accredited facility. Final us Drew Parmar DO ECHO ORD Final Result * SCAN-CARDIAC STRIP (07/18/2025 7:30 AM CDT) us Scanner OTHER Final Result * HEPARIN ANTI-XA (07/17/2025 7:56 PM CDT) HEPARIN ANTI-XA 1.82 See Comment U/mL 07/17/2025 8:18 PM CDT [facility] [facility] Blood BLOOD SPECIMEN / Unknown Non-Lab Venipuncture / Unknown 07/17/2025 7:56 PM CDT 07/17/2025 8:02 PM CDT Narrative [facility] - 07/17/2025 8:18 PM CDT INR [...] 0.25 U/mL Critical: >1.00 U/mL Luis Gonzalezamber [facility] HEMATOLOGY Final R esult Performing Organization Address [facility] de Phone Number [facility] [address] [address], [place] * (ABNORMAL) Protime-INR (07/17/2025 7:56 PM CDT) INR 1.3(H) <1.3 07/17/2025 8:15 PM CDT [facility] PROTIME 14.5(H) 10.6 - 12.4 sec 07/17/2025 8:15 PM CDT [facility] Blood BLOOD SPECIMEN / Unknown Non-Lab Venipuncture / Unknown 07/17/2025 7:56 PM CDT 07/17/2025 8:02 PM CDT [facility] - 07/17/2025 8:15 PM CDT [...] if the patient is on UFH. Luis Gonzalezamber [facility] HEMATOLOGY Final R esult Performing Organization Address [facility] de Phone Number [facility] [address] [address], [place] * Fibrinogen, Quantitative (07/17/2025 7:56 PM CDT) FIBRINOGEN,ANGEL NTITATIVE 269 193 - 401 mg/dL 07/17/2025 8:15 PM CDT [facility] Blood BLOOD SPECIMEN / Unknown Non-Lab Venipuncture / Unknown 07/17/2025 7:56 PM CDT 07/17/2025 8:02 PM CDT us Luis Gonzalezyasmine [facility] HEMATOLOGY Final R esult [facility] [address] [place] [address], [place] * (ABNORMAL) Hepatic Function Panel (07/17/2025 7:56 PM CDT) Pathologist [facility] ALBUMIN 3.6(L) 4.0 - 4.9 g/dL 07/17/2025 8:25 PM CDT [facility] PROTEIN,TOTAL 6.1 6.0 - 8.0 g/dL 07/17/2025 8:25 PM CDT [facility] BILIRUBIN,TOTAL 0.3 0.0 - 1.2 mg/dL 07/17/2025 8:25 PM CDT [facility] BILIRUBIN,DIRECT 0.1 0.0 - 0.2 mg/dL 07/17/2025 8:25 PM CDT [facility] BILIRUBIN,INDIRE CT 0.2 0.2 - 0.8 mg/dL 07/17/2025 8:25 PM CDT [facility] ALK PHOSPHATASE 73 35 - 104 IU/L 07/17/2025 8:25 PM CDT [facility] ALT (SGPT) 27 10 - 35 IU/L 07/17/2025 8:25 PM CDT [facility] AST (SGOT) 30 10 - 35 IU/L 07/17/2025 8:25 PM CDT [facility] Blood BLOOD SPECIMEN / Unknown Non-Lab Venipuncture / Unknown 07/17/2025 7:56 PM CDT 07/17/2025 8:02 PM CDT us Drew Parmar DO CHEMISTRY Final Result Performing Organization Address City/[facility]/ZIP Co de Phone Number [facility] [address] [place] [address], [place] * [place] Venous Lower Extremity Bilateral [...] Drew Parmar DO US Final Result * SCAN-LABORATORY REPORT (07/14/2025 12:00 [...] included. us Scanner OTHER Final Result * (ABNORMAL) LIPID PANEL W REFLEX MEASURED LDL (01/18/2025 2:53 PM CDT) CHOLESTEROL, TOTAL 275(H) <200 mg/dL [employer] HDL CHOLESTEROL 53 > OR = 50 mg/dL [employer] [facility] TRIGLYCERIDES 137 <150 mg/dL [employer] LDL-CHOLESTEROL 193(H) mg/dL (calc) [employer] Comment: LDL-C levels > or = 190 [...] about testing for familial hypercholesterolemia, please call [facility] Client [facility] at [phone]. Deuce T, et al. J National Lipid Association Recommendations for Patient-Centered Management of Dyslipidemia: Part 1 Journal of Clinical Lipidology 2015;9(2), 129-169. Bill Giraldo et al. (2014). Homozygous familial hypercholesterolaemia: new insights and guidance for clinicians to improve detection and clinical management. Heart Journal, 35(32), 5745-7346. Reference range: <100 Desirable range <100 mg/dL for primary prevention; <70 mg/dL for patients with CHD or diabetic patients with > or = 2 CHD risk factors. LDL-C is now calculated using the Priyank calculation, which is a validated novel method providing better accuracy than the Friedewald equation in the estimation of LDL-C. Greyson HUBBARD et al. CAPRICE. 2013;310(19): 2970-1031 (http://education.Radio NEXT/faq/EZB350) CHOL/HDLC RATIO 5.2(H) <5.0 (calc) [facility] NON HDL CHOLESTEROL 222(H) <130 mg/dL (calc) [facility] Comment: Non-HDL level > or = 220 [...] Axel Palomo MD CHEMISTRY Final Re sult [employer] [facility] [address] [place] [address], [facility] [address] [place] [address] * ANTI HCV (06/11/2023 12:43 PM CDT) HEPATITIS C ANTIBODY Non-Reacti ve Non-React dorian 06/12/2023 9:16 AM CDT [facility] Comment:Please note, per www .CDC.gov: [...] Andrade DO SEND OUTS Final Resu lt [facility] SENDOUT INTERNAL ZIP [address] [address] [place] [address] * SDNA-FIT EXTERNAL (COLOGUARD) (06/18/2022 5:30 AM CDT) NONINV COLON CA DNA+OCC BLD SCRN STL-IMP Negative Negative 06/22/2022 8:52 AM CDT [facility] (CLIA #:[id number]) Comment: NEGATIVE TEST RESULT. A negative Cologuard [...] (Timmy Judge al, N Engl J Med 2014;370(14):2595-3164) The normal value (reference range) for this assay is negative. COLOGUARD RE-SCREENING RECOMMENDATION: Periodic colorectal cancer screening is an important part of preventive healthcare for asymptomatic individuals at average risk for colorectal cancer. Following a negative Cologuard result, the [place] Cancer Society and U.S. Multi-Society Task Force screening guidelines recommend a Cologuard re-screening interval of 3 years. References: [place] Cancer Society Guideline for Colorectal Cancer Screening: https://www.cancer.org/cancer/kipui-hmdhop-rzmasg/zvuuywgzz-dipyofyxt-rhprqvl/ac s-rec ommendations.html.; Fidel DK, Joann CR, Maribell REESE, Colorectal Cancer Screening: Recommendations for Physicians and Patients from the U.S. Multi-Society Task Force on Colorectal Cancer Screening , Am J Gastroenterology 2017; 112:9873-0537. TEST DESCRIPTION: Composite algorithmic analysis of stool [...] Phillips. et al, N Engl J Med 2014;370(14):0471-2737.) Cologuard may produce a false negative or false positive result (no colorectal cancer or precancerous polyp present at colonoscopy follow up). A negative Cologuard test result does not guarantee the absence of CRC or advanced adenoma (pre-cancer). The current Cologuard screening interval is every 3 years. ([place] Cancer Society and U.S. Multi-Society Task Force). Cologuard performance data in a 10,000 patient pivotal study using colonoscopy as the reference method can be accessed at the following location: www.Instantis.com/results. Additional description of the Cologuard test process, warnings and precautions can be found at www.cologAxonics Modulation Technologiesrd.com. Stool specimen (specimen) (Rectum) 06/18/2022 5:30 AM CDT 06/19/2022 11:50 AM CDT Marivel Andrade DO URINE Final Resu lt [facility] (CLIA #:[id number]) [place] [address], [place] [phone] from Last 3 Months or Most Recently Relevant to Health Maintenance Insurance BLUE CROSS [employer] BLUE MR PB ONLY MEDICARE PART A HB ONLY MEDICARE PART B HB ONLY [employer]OSS [employer] BLUE HB ONLY BLUE CROSS [employer] BLUE HB ONLY MEDICARE PPS Advance Directives Documents on File Type Date Recorded Patient Floor Care Specialist Expl anation Healthcare Directive 06/28/2025 2:05 PM HC D 10.7.25 Healthcare Directive 04/17/2018 12:52 PM * DNR (Latest Code Status on File) Date Activated Date Inactivated Comments 08/01/2025 10:22 PM POLST availa ble in residence reviewed and validated to match our conversation today * DNR Date Activated Date Inactivated Comments 07/24/2025 7:23 PM 07/29/2025 4:50 PM Question Answer Comments Code Status Discussion: Reviewed Preferences * Full Code Date Activated Date Inactivated Comments 07/23/2025 11:32 PM 07/24/2025 7:23 PM Question Answer Comments Code Status Discussion: Reviewed Preferences * DNR Date Activated Date Inactivated Comments 07/20/2025 8:44 PM 07/23/2025 11:18 PM CAESAR marshall in residence reviewed and validated to match our conversation today * DNR Date Activated Date Inactivated Comments 07/17/2025 6:52 PM 07/19/2025 4:40 PM Question Answer Comments Code Status Discussion: Reviewed Preferences Care Teams Imaging Center Manager Relationship Specialty Start Date End Date Votel, Axel Thomas MD [address] [place] [address] PCP - General Family Practice 01/04/25
--- OUTSIDE RECORDS SUMMARY | 2025-08-07 22:55 | XMS_ITS ---
Author Name Interface, [id number] lity Address [address] [address] [facility] Address [address] [address] Support Name Relationship Address Phone Jesse Wei [...] use of real-time audio and video via [employer]wellee. ??Alyssa has provided written consent to conduct this visit via telemedicine. ??The patient participated in this visit, noted that her home health RN was in the room however he/she did not participate in the visit. ??The patient is located in their home and I, Dr. Carol Branham am located in [facility].?? History today was provided by??chart review and patient report.?? Cancer diagnosis began with development of acute renal failure.?? Admitted to [place] with this December 2024. Found to have cervical mass and bilateral hydronephrosis.?? Biopsy confirmed SCC, PET showed disease extension into uterus, bladder wall. Completed concurrent chemoradiation with immunotherapy, followed by brachytherapy. Admitted with complicated UTI earlier this month.?? Treatments have been through her local Oncology team and [place].?? Anticipates a follow up PET in June.?? [...] will take Tylenol at times for this, 1l349xq or 6j507ff.?? Feels that currently it is not severe [...] the guidance of her local Oncologist and [place].?? Please see below.?? Current Decision Making Capacity [...] Should [place] [facility] we would be happy to see her in follow up to screen for further care needs.?? Total of??32??minutes were spent on this encounter, including video visit from??954AM - 1016AM??andremaining time spent in documentation, chart review.?? Thank you for including me in caring for ALYSSA Carol Branham MD Physician [phone] cc:Axel Palomo MD Electronically signed by Carol Branham MD 05/14/2025 09:56 CDT
--- OUTSIDE RECORDS SUMMARY | 2025-08-07 22:56 | XMS_ITS ---
Author Name Interface, [id number] lity Address [address] [address] [facility] On[facility] Address [address] [address] Support Name Relationship Address Phone Jesse Wei [...] use of real-time audio and video via Gemaee. ??Alyssa has provided written consent to conduct this visit via telemedicine. ??The patient participated in this visit, noted that her home health RN was in the room however he/she did not participate in the visit. ??The patient is located in their home and I, Dr. Carol Branham am located in [facility].?? History today was provided by??chart review and patient report.?? Cancer diagnosis began with development of acute renal failure.?? Admitted to [place] with this December 2024. Found to have cervical mass and bilateral hydronephrosis.?? Biopsy confirmed SCC, PET showed disease extension into uterus, bladder wall. Completed concurrent chemoradiation with immunotherapy, followed by brachytherapy. Admitted with complicated UTI earlier this month.?? Treatments have been through her local Oncology team and [place].?? Anticipates a follow up PET in June.?? [...] will take Tylenol at times for this, 5l294bl or 4e069dq.?? Feels that currently it is not severe [...] the guidance of her local Oncologist and [place].?? Please see below.?? Current Decision Making Capacity [...] related concerns.?? Should Alyssa [place] [facility] we would be happy to see her in follow up to screen for further care needs.?? Total of??32??minutes were spent on this encounter, including video visit from??954AM - 1016AM??andremaining time spent in documentation, chart review.?? Thank you for including me in caring for ALYSSA Carol Branham MD Physician [phone] cc:Axel Palomo MD Electronically signed by Carol Branham MD 05/14/2025 09:56 CDT
--- OUTSIDE RECORDS SUMMARY | 2025-08-07 22:56 | XMS_ITS ---
Author Name Interface, [id number] lity Address [address] [address] [facility] On[facility] Address [address] [address] Support Name Relationship Address Phone Jesse Wei [...] use of real-time audio and video via [employer]see. ??Alyssa has provided written consent to conduct this visit via telemedicine. ??The patient participated in this visit, noted that her home health RN was in the room however he/she did not participate in the visit. ??The patient is located in their home and I, Dr. Carol Branham am located in [facility].?? History today was provided by??chart review and patient report.?? Cancer diagnosis began with development of acute renal failure.?? Admitted to [place] with this December 2024. Found to have cervical mass and bilateral hydronephrosis.?? Biopsy confirmed SCC, PET showed disease extension into uterus, bladder wall. Completed concurrent chemoradiation with immunotherapy, followed by brachytherapy. Admitted with complicated UTI earlier this month.?? Treatments have been through her local Oncology team and [place].?? Anticipates a follow up PET in June.?? [...] will take Tylenol at times for this, 3v841ph or 2d050rn.?? Feels that currently it is not severe [...] the guidance of her local Oncologist and [place].?? Please see below.?? Current Decision Making Capacity [...] related concerns.?? Should Alyssa resume care within [facility], we would be happy to see her in follow up to screen for further care needs.?? Total of??32??minutes were spent on this encounter, including video visit from??954AM - 1016AM??andremaining time spent in documentation, chart review.?? Thank you for including me in caring for ALYSSA Carol Branham MD Physician [phone] cc:Axel Palomo MD Electronically signed by Carol Barnham MD 05/14/2025 09:56 CDT
--- OUTSIDE RECORDS SUMMARY | 2025-08-07 22:56 | XMS_ITS ---
Author Name Interface, [id number] lity Address [address] [address] [facility] Address [address] [address] Support Name Relationship Address Phone Jesse Wei [...] use of real-time audio and video via mth senseee. ??Alyssa has provided written consent to conduct this visit via telemedicine. ??The patient participated in this visit, noted that her home health RN was in the room however he/she did not participate in the visit. ??The patient is located in their home and I, Dr. Carol Branham am located in [facility].?? History today was provided by??chart review [...] been through her local Oncology team and [place].?? Anticipates a follow up PET in June.?? [...] will take Tylenol at times for this, 3o004uj or 7n868lv.?? Feels that currently it is not severe [...] the guidance of her local Oncologist and [place].?? Please see below.?? Current Decision Making Capacity [...] related concerns.?? Should Alyssa resume care within [facility], we would be happy to see her in follow up to screen for further care needs.?? Total of??32??minutes were spent on this encounter, including video visit from??954AM - 1016AM??andremaining time spent in documentation, chart review.?? Thank you for including me in caring for ALYSSA Carol Branham MD Physician [phone] cc:Axel Palomo MD Electronically signed by Carol Branham MD 05/14/2025 09:56 CDT
--- OUTSIDE RECORDS SUMMARY | 2025-08-07 22:57 | XMS_ITS ---
Author Name Interface, [id number] lity Address [address] [address] [facility] Address [address] [address] Support Name Relationship Address Phone Jesse Wei [...] use of real-time audio and video via Rainee. ??Alyssa has provided written consent to conduct this visit via telemedicine. ??The patient participated in this visit, noted that her home health RN was in the room however he/she did not participate in the visit. ??The patient is located in their home and I, Dr. Carol Branham am located in [facility].?? History today was provided by??chart review and patient report.?? Cancer diagnosis began with development of acute renal failure.?? Admitted to [place] with this December 2024. Found to have cervical mass and bilateral hydronephrosis.?? Biopsy confirmed SCC, PET showed disease extension into uterus, bladder wall. Completed concurrent chemoradiation with immunotherapy, followed by brachytherapy. Admitted with complicated UTI earlier this month.?? Treatments have been through her local Oncology team and [place].?? Anticipates a follow up PET in June.?? [...] will take Tylenol at times for this, 4q328am or 2j533qe.?? Feels that currently it is not severe [...] the guidance of her local Oncologist and [place].?? Please see below.?? Current Decision Making Capacity [...] concerns.?? Should Alyssa resume care within [facility], we would be happy to see her in follow up to screen for further care needs.?? Total of??32??minutes were spent on this encounter, including video visit from??954AM - 1016AM??andremaining time spent in documentation, chart review.?? Thank you for including me in caring for ALYSSA Carol Branham MD Physician [phone] cc:Axel Palomo MD Electronically signed by Carol Branham MD 05/14/2025 09:56 CDT
--- OUTSIDE RECORDS SUMMARY | 2025-08-07 22:57 | XMS_ITS ---
Author Name Interface, [id number] lity Address [address] [address] [facility] Address [address] [address] Support Name Relationship Address Phone Jesse Wei [...] use of real-time audio and video via Movatuee. ??Alyssa has provided written consent to conduct this visit via telemedicine. ??The patient participated in this visit, noted that her home health RN was in the room however he/she did not participate in the visit. ??The patient is located in their home and I, Dr. Carol Branham am located in [facility].?? History today was provided by??chart review and patient report.?? Cancer diagnosis began with development of acute renal failure.?? Admitted to [place] with this December 2024. Found to have cervical mass and bilateral hydronephrosis.?? Biopsy confirmed SCC, PET showed disease extension into uterus, bladder wall. Completed concurrent chemoradiation with immunotherapy, followed by brachytherapy. Admitted with complicated UTI earlier this month.?? Treatments have been through her local Oncology team and [place].?? Anticipates a follow up PET in June.?? [...] will take Tylenol at times for this, 7z157rz or 6b742dn.?? Feels that currently it is not severe [...] the guidance of her local Oncologist and [place].?? Please see below.?? Current Decision Making Capacity [...] caring for ALYSSA Carol Branham MD Physician [phone] cc:Axel Palomo MD Electronically signed by Carol Branham MD 05/14/2025 09:56 CDT
--- OUTSIDE RECORDS SUMMARY | 2025-08-07 22:57 | XMS_ITS ---
Author Name Interface, [id number] lity Address [address] [facility] [address] [address] [facility] Address [address] [address] Support Name Relationship Address Phone Jesse Wei [...] use of real-time audio and video via Karus The[employer]see. ??Alyssa has provided written consent to conduct this visit via telemedicine. ??The patient participated in this visit, noted that her home health RN was in the room however he/she did not participate in the visit. ??The patient is located in their home and I, Dr. Carol Branham am located in [facility].?? History today was provided by??chart review and patient report.?? Cancer diagnosis began with development of acute renal failure.?? Admitted to [place] with this December 2024. Found to have cervical mass and bilateral hydronephrosis.?? Biopsy confirmed SCC, PET showed disease extension into uterus, bladder wall. Completed concurrent chemoradiation with immunotherapy, followed by brachytherapy. Admitted with complicated UTI earlier this month.?? Treatments have been through her local Oncology team and [place].?? Anticipates a follow up PET in June.?? [...] will take Tylenol at times for this, 0d009mo or 5o357pb.?? Feels that currently it is not severe [...] the guidance of her local Oncologist and [place].?? Please see below.?? Current Decision Making Capacity [...] related concerns.?? Should Alyssa resume care within [facility], we would be happy to see her in follow up to screen for further care needs.?? Total of??32??minutes were spent on this encounter, including video visit from??954AM - 1016AM??andremaining time spent in documentation, chart review.?? Thank you for including me in caring for ALYSSA Carol Branham MD Physician [phone] cc:Axel Palomo MD Electronically signed by Carol Branham MD 05/14/2025 09:56 CDT
--- OUTSIDE RECORDS SUMMARY | 2025-08-07 22:57 | XMS_ITS ---
Author Name Interface, L4Hjbblex lity Address [address] [address] [facility] Address [address] [address] Support Name Relationship Address Phone Jesse Wei [...] use of real-time audio and video via A Bit Luckyee. ??Alyssa has provided written consent to conduct [...] development of acute renal failure.?? Admitted to [facility] with this December 2024. Found to have cervical mass and bilateral hydronephrosis.?? Biopsy confirmed SCC, PET showed disease extension into uterus, bladder wall. Completed concurrent chemoradiation with immunotherapy, followed by brachytherapy. Admitted with complicated UTI earlier this month.?? Treatments have been through her local Oncology team and [place].?? Anticipates a follow up PET in June.?? [...] will take Tylenol at times for this, 3c647su or 6p296rv.?? Feels that currently it is not severe [...] the guidance of her local Oncologist and [place].?? Please see below.?? Current Decision Making Capacity [...] related concerns.?? Should Alyssa resume care within [facility], we would be happy to see her in follow up to screen for further care needs.?? Total of??32??minutes were spent on this encounter, including video visit from??954AM - 1016AM??andremaining time spent in documentation, chart review.?? Thank you for including me in caring for ALYSSA Carol Branham MD Physician [phone] cc:Axel Palomo MD Electronically signed by Carol Branham MD 05/14/2025 09:56 CDT
--- OUTSIDE RECORDS SUMMARY | 2025-08-07 22:57 | XMS_ITS ---
Author Name Interface, [id number] lity Address [address] [address] [facility] Address [address] [address] Support Name Relationship Address Phone Jesse Wei [...] use of real-time audio and video via Social DJee. ??Alyssa has provided written consent to conduct [...] development of acute renal failure.?? Admitted to [place] with this December 2024. Found to have cervical mass and bilateral hydronephrosis.?? Biopsy confirmed SCC, PET showed disease extension into uterus, bladder wall. Completed concurrent chemoradiation with immunotherapy, followed by brachytherapy. Admitted with complicated UTI earlier this month.?? Treatments have been through her local Oncology team and [place].?? Anticipates a follow up PET in June.?? [...] will take Tylenol at times for this, 4d129or or 6e494tx.?? Feels that currently it is not severe [...] the guidance of her local Oncologist and [place].?? Please see below.?? Current Decision Making Capacity [...] related concerns.?? Should Alyssa resume care within [facility] [place], we would be happy to see her in follow up to screen for further care needs.?? Total of??32??minutes were spent on this encounter, including video visit from??954AM - 1016AM??andremaining time spent in documentation, chart review.?? Thank you for including me in caring for ALYSSA Carol Branham MD Physician [phone] cc:Axel Palomo MD Electronically signed by Carol Branham MD 05/14/2025 09:56 CDT
--- OUTSIDE RECORDS SUMMARY | 2025-08-07 22:58 | XMS_ITS ---
Author Name Interface, [id number] lity Address [address] [address] [facility] Address [address] [address] Support Name Relationship Address Phone Jesse Wei [...] use of real-time audio and video via Trapitee. ??Alyssa has provided written consent to conduct this visit via telemedicine. ??The patient participated in this visit, noted that her home health RN was in the room however he/she did not participate in the visit. ??The patient is located in their home and I, Dr. Carol Branham am located in [facility].?? History today was provided by??chart review and patient report.?? Cancer diagnosis began with development of acute renal failure.?? Admitted to [place] with this December 2024. Found to have cervical mass and bilateral hydronephrosis.?? Biopsy confirmed SCC, PET showed disease extension into uterus, bladder wall. Completed concurrent chemoradiation with immunotherapy, followed by brachytherapy. Admitted with complicated UTI earlier this month.?? Treatments have been through her local Oncology team and [place].?? Anticipates a follow up PET in June.?? [...] will take Tylenol at times for this, 2y233rn or 1r794nm.?? Feels that currently it is not severe [...] the guidance of her local Oncologist and [place].?? Please see below.?? Current Decision Making Capacity [...] Alyssa resume care within [facility], we would be happy to see her in follow up to screen for further care needs.?? Total of??32??minutes were spent on this encounter, including video visit from??954AM - 1016AM??andremaining time spent in documentation, chart review.?? Thank you for including me in caring for ALYSSA Carol Branham MD Physician [phone] cc:Axel Palomo MD Electronically signed by Carol Branham MD 05/14/2025 09:56 CDT
--- OUTSIDE RECORDS SUMMARY | 2025-08-07 22:58 | XMS_ITS ---
Author Name Interface, L0Mmvwtar lity Address [address] [address] [facility] Address [address] [address] Support Name Relationship Address Phone Jesse Wei [...] use of real-time audio and video via Sparrowee. ??Alyssa has provided written consent to conduct this visit via telemedicine. ??The patient participated in this visit, noted that her home health RN was in the room however he/she did not participate in the visit. ??The patient is located in their home and I, Dr. Carol Branham am located in [facility].?? History today was provided by??chart review and patient report.?? Cancer diagnosis began with development of acute renal failure.?? Admitted to [place] with this December 2024. Found to have cervical mass and bilateral hydronephrosis.?? Biopsy confirmed SCC, PET showed disease extension into uterus, bladder wall. Completed concurrent chemoradiation with immunotherapy, followed by brachytherapy. Admitted with complicated UTI earlier this month.?? Treatments have been through her local Oncology team and [place].?? Anticipates a follow up PET in June.?? [...] will take Tylenol at times for this, 6m647lt or 6j290ke.?? Feels that currently it is not severe [...] the guidance of her local Oncologist and [place].?? Please see below.?? Current Decision Making Capacity [...] related concerns.?? Should Alyssa resume care within [facility] [place] we would be happy to see her in follow up to screen for further care needs.?? Total of??32??minutes were spent on this encounter, including video visit from??954AM - 1016AM??andremaining time spent in documentation, chart review.?? Thank you for including me in caring for ALYSSA Carol Branham MD Physician [phone] cc:Axel Palomo MD Electronically signed by Carol Branham MD 05/14/2025 09:56 CDT
--- OUTSIDE RECORDS SUMMARY | 2025-08-07 22:58 | XMS_ITS ---
Author Name Interface, [id number] lity Address [address] [address] [facility] Address [address] [address] Support Name Relationship Address Phone Jesse Wei [...] use of real-time audio and video via Inspire Energyee. ??Alyssa has provided written consent to conduct this visit via telemedicine. ??The patient participated in this visit, noted that her home health RN was in the room however he/she did not participate in the visit. ??The patient is located in their home and I, Dr. Carol Branham am located in [facility].?? History today was provided by??chart review and patient report.?? Cancer diagnosis began with development of acute renal failure.?? Admitted to [place] with this December 2024. Found to have cervical mass and bilateral hydronephrosis.?? Biopsy confirmed SCC, PET showed disease extension into uterus, bladder wall. Completed concurrent chemoradiation with immunotherapy, followed by brachytherapy. Admitted with complicated UTI earlier this month.?? Treatments have been through her local Oncology team and [place].?? Anticipates a follow up PET in June.?? [...] will take Tylenol at times for this, 5i229kh or 9a810gv.?? Feels that currently it is not severe [...] the guidance of her local Oncologist and [place].?? Please see below.?? Current Decision Making Capacity [...] concerns.?? Should Alyssa resume care within [facility], we would be happy to see her in follow up to screen for further care needs.?? Total of??32??minutes were spent on this encounter, including video visit from??954AM - 1016AM??andremaining time spent in documentation, chart review.?? Thank you for including me in caring for ALYSSA Carol Branham MD Physician [phone] cc:Axel Palomo MD Electronically signed by Carol Branham MD 05/14/2025 09:56 CDT
--- OUTSIDE RECORDS SUMMARY | 2025-08-07 22:59 | XMS_ITS ---
Author Name Interface, E9Yznmotx lity Address [address] [address] [facility] Address [address] [address] Support Name Relationship Address Phone Jesse Wei [...] use of real-time audio and video via Kicksendee. ??Alyssa has provided written consent to conduct [...] development of acute renal failure.?? Admitted to [place] with this December 2024. Found to have cervical mass and bilateral hydronephrosis.?? Biopsy confirmed SCC, PET showed disease extension into uterus, bladder wall. Completed concurrent chemoradiation with immunotherapy, followed by brachytherapy. Admitted with complicated UTI earlier this month.?? Treatments have been through her local Oncology team and [place].?? Anticipates a follow up PET in June.?? [...] will take Tylenol at times for this, 8y834rd or 7n372sl.?? Feels that currently it is not severe [...] the guidance of her local Oncologist and [place].?? Please see below.?? Current Decision Making Capacity [...] related concerns.?? Should Alyssa resume care within [facility], we would be happy to see her in follow up to screen for further care needs.?? Total of??32??minutes were spent on this encounter, including video visit from??954AM - 1016AM??andremaining time spent in documentation, chart review.?? Thank you for including me in caring for ALYSSA Carol Branham MD Physician [phone] cc:Axel Palomo MD Electronically signed by Carol Branham MD 05/14/2025 09:56 CDT
--- OUTSIDE RECORDS SUMMARY | 2025-08-07 23:00 | XMS_ITS ---
Author Name Interface, E2Xernujx lity Address [address] [address] [facility] Address [address] [address] Support Name Relationship Address Phone Jesse Wei [...] use of real-time audio and video via BridgeCoee. ??Alyssa has provided written consent to conduct this visit via telemedicine. ??The patient participated in this visit, noted that her home health RN was in the room however he/she did not participate in the visit. ??The patient is located in their home and I, Dr. aCrol Branham am located in [facility].?? History today was provided by??chart review and patient report.?? Cancer diagnosis began with development of acute renal failure.?? Admitted to [place] with this December 2024. Found to have cervical mass and bilateral hydronephrosis.?? Biopsy confirmed SCC, PET showed disease extension into uterus, bladder wall. Completed concurrent chemoradiation with immunotherapy, followed by brachytherapy. Admitted with complicated UTI earlier this month.?? Treatments have been through her local Oncology team and [place].?? Anticipates a follow up PET in June.?? [...] will take Tylenol at times for this, 8i610lv or 0z522ms.?? Feels that currently it is not severe [...] the guidance of her local Oncologist and [place].?? Please see below.?? Current Decision Making Capacity [...] related concerns.?? Should Alyssa resume care within [facility], we would be happy to see her in follow up to screen for further care needs.?? Total of??32??minutes were spent on this encounter, including video visit from??954AM - 1016AM??andremaining time spent in documentation, chart review.?? Thank you for including me in caring for ALYSSA Carol Branham MD Physician [phone] cc:Axel Palomo MD Electronically signed by Carol Branham MD 05/14/2025 09:56 CDT
--- OUTSIDE RECORDS SUMMARY | 2025-08-07 23:01 | XMS_ITS ---
Author Name Interface, M2Gxqlryy lity Address [address] [address] [facility] Address [address] [address] Support Name Relationship Address Phone Jesse Wei [...] use of real-time audio and video via Synchrisee. ??Alyssa has provided written consent to conduct this visit via telemedicine. ??The patient participated in this visit, noted that her home health RN was in the room however he/she did not participate in the visit. ??The patient is located in their home and I, Dr. Carol Branham am located in [facility].?? History today was provided by??chart review and patient report.?? Cancer diagnosis began with development of acute renal failure.?? Admitted to [place] with this December 2024. Found to have cervical mass and bilateral hydronephrosis.?? Biopsy confirmed SCC, PET showed disease extension into uterus, bladder wall. Completed concurrent chemoradiation with immunotherapy, followed by brachytherapy. Admitted with complicated UTI earlier this month.?? Treatments have been through her local Oncology team and [place].?? Anticipates a follow up PET in June.?? [...] will take Tylenol at times for this, 9a873ge or 4g169bc.?? Feels that currently it is not severe [...] the guidance of her local Oncologist and [place].?? Please see below.?? Current Decision Making Capacity [...] related concerns.?? Should Alyssa resume care within [facility], we would be happy to see her in follow up to screen for further care needs.?? Total of??32??minutes were spent on this encounter, including video visit from??954AM - 1016AM??andremaining time spent in documentation, chart review.?? Thank you for including me in caring for ALYSSA Carol Branham MD Physician [phone] cc:Axel Palomo MD Electronically signed by Carol Branham MD 05/14/2025 09:56 CDT
--- OUTSIDE RECORDS SUMMARY | 2025-08-07 23:01 | XMS_ITS ---
Author Name Interface, M5Xapezjz lity Address [address] [address] [facility] Address [address] [address] Support Name Relationship Address Phone Jesse Wei [...] use of real-time audio and video via TouchMailee. ??Alyssa has provided written consent to conduct [...] development of acute renal failure.?? Admitted to [place] with this December 2024. Found to have cervical mass and bilateral hydronephrosis.?? Biopsy confirmed SCC, PET showed disease extension into uterus, bladder wall. Completed concurrent chemoradiation with immunotherapy, followed by brachytherapy. Admitted with complicated UTI earlier this month.?? Treatments have been through her local Oncology team and [place].?? Anticipates a follow up PET in June.?? [...] will take Tylenol at times for this, 4h516dj or 4f856ou.?? Feels that currently it is not severe [...] the guidance of her local Oncologist and [place].?? Please see below.?? Current Decision Making Capacity [...] caring for ALYSSA Carol Branham MD Physician [phone] cc:Axel Palomo MD Electronically signed by Carol Branham MD 05/14/2025 09:56 CDT
--- OUTSIDE RECORDS SUMMARY | 2025-08-07 23:01 | XMS_ITS ---
Author Name Interface, [id number] lity Address [address] [address] [facility] Address [address] [address] Support Name Relationship Address Phone Jesse Wei [...] use of real-time audio and video via Vizional Technologiesee. ??Alyssa has provided written consent to [...] development of acute renal failure.?? Admitted to [place] with this December 2024. Found to have cervical mass and bilateral hydronephrosis.?? Biopsy confirmed SCC, PET showed disease extension into uterus, bladder wall. Completed concurrent chemoradiation with immunotherapy, followed by brachytherapy. Admitted with complicated UTI earlier this month.?? Treatments have been through her local Oncology team and [place].?? Anticipates a follow up PET in June.?? [...] will take Tylenol at times for this, 0d947ze or 8f363mg.?? Feels that currently it is not severe [...] the guidance of her local Oncologist and [place].?? Please see below.?? Current Decision Making Capacity [...] related concerns.?? Should Alyssa resume care within [facility], we would be happy to see her in follow up to screen for further care needs.?? Total of??32??minutes were spent on this encounter, including video visit from??954AM - 1016AM??andremaining time spent in documentation, chart review.?? Thank you for including me in caring for ALYSSA Carol Branham MD Physician [phone] cc:Axel Palomo MD Electronically signed by Carol Branham MD 05/14/2025 09:56 CDT
--- OUTSIDE RECORDS SUMMARY | 2025-08-07 23:04 | XMS_ITS ---
Author Name Interface, A4Cgojvka lity Address [address] [facility] [address] [address] [facility] Address [address] [address] Support Name Relationship Address Phone Jesse Wei [...] use of real-time audio and video via Arc Solutionsee. ??Alyssa has provided written consent to conduct this visit via telemedicine. ??The patient participated in this visit, noted that her home health RN was in the room however he/she did not participate in the visit. ??The patient is located in their home and I, Dr. Carol Branham am located in [facility].?? History today was provided by??chart review and patient report.?? Cancer diagnosis began with development of acute renal failure.?? Admitted to [place] with this December 2024. Found to have cervical mass and bilateral hydronephrosis.?? Biopsy confirmed SCC, PET showed disease extension into uterus, bladder wall. Completed concurrent chemoradiation with immunotherapy, followed by brachytherapy. Admitted with complicated UTI earlier this month.?? Treatments have been through her local Oncology team and [place].?? Anticipates a follow up PET in June.?? [...] will take Tylenol at times for this, 4l301zr or 2e111vw.?? Feels that currently it is not severe [...] the guidance of her local Oncologist and [place].?? Please see below.?? Current Decision Making Capacity [...] caring for ALYSSA Carol Branham MD Physician [phone] cc:Axel Palomo MD Electronically signed by Carol Branham MD 05/14/2025 09:56 CDT
--- OUTSIDE RECORDS SUMMARY | 2025-08-07 23:04 | XMS_ITS ---
Author Name Interface, [id number] lity Address [address] [address] [facility] Address [address] [address] Support Name Relationship Address Phone Jesse Wei [...] use of real-time audio and video via [employer]. ??Alyssa has provided written consent to conduct this visit via telemedicine. ??The patient participated in this visit, noted that her home health RN was in the room however he/she did not participate in the visit. ??The patient is located in their home and I, Dr. Carol Branham am located in [facility].?? History today was provided by??chart review and patient report.?? Cancer diagnosis began with development of acute renal failure.?? Admitted to [place] with this December 2024. Found to have cervical mass and bilateral hydronephrosis.?? Biopsy confirmed SCC, PET showed disease extension into uterus, bladder wall. Completed concurrent chemoradiation with immunotherapy, followed by brachytherapy. Admitted with complicated UTI earlier this month.?? Treatments have been through her local Oncology team and [place].?? Anticipates a follow up PET in [...] will take Tylenol at times for this, 0g076xh or 2u305pu.?? Feels that currently it is not severe [...] guidance of her local Oncologist and [place].?? Please see below.?? Current Decision Making [...] related concerns.?? Should Alyssa resume care within [facility], we would be happy to see her in follow up to screen for further care needs.?? Total of??32??minutes were spent on this encounter, including video visit from??954AM - 1016AM??andremaining time spent in documentation, chart review.?? Thank you for including me in caring for ALYSSA Carol Branham MD Physician [phone] cc:Axel Palomo MD Electronically signed by Carol Branham MD 05/14/2025 09:56 CDT
--- OUTSIDE RECORDS SUMMARY | 2025-08-07 23:04 | XMS_ITS ---
Author Name Interface, [id number] lity Address [address] [address] [facility] Address [address] [address] Support Name Relationship Address Phone Jesse Wei [...] PULIDO Date of : 1950 Attending Physician: Saarh Coto (Gynecological/Oncology) Date of Service: 05/10/2025 Referred by:?? Dr. 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 ??Alyssa has provided written consent to conduct [...] development of acute renal failure.?? Admitted to [place] with this December 2024. Found to have cervical mass and bilateral hydronephrosis.?? Biopsy confirmed SCC, PET showed disease extension into uterus, bladder wall. Completed concurrent chemoradiation with immunotherapy, followed by brachytherapy. Admitted with complicated UTI earlier this month.?? Treatments have been through her local Oncology team and [place].?? Anticipates a follow up PET in June.?? [...] will take Tylenol at times for this, 0p780cn or 4y677ln.?? Feels that currently it is not severe [...] the guidance of her local Oncologist and [place].?? Please see below.?? Current Decision Making Capacity [...] Should Alyssa resume care within [facility], we would be happy to see her in follow up to screen for further care needs.?? Total of??32??minutes were spent on this encounter, including video visit from??954AM - 1016AM??andremaining time spent in documentation, chart review.?? Thank you for including me in caring for ALYSSA Carol Branham MD Physician [phone] cc:Axel Palomo MD Electronically signed by Carol Branham MD 05/14/2025 09:56 CDT
--- OUTSIDE RECORDS SUMMARY | 2025-08-07 23:06 | XMS_ITS ---
Author Name Interface, [id number] lity Address [address] [address] [facility] Address [address] [address] Support Name Relationship Address Phone Jesse Wei [...] use of real-time audio and video via [employer]. ??Alyssa has provided written consent to conduct this visit via telemedicine. ??The patient participated in this visit, noted that her home health RN was in the room however he/she did not participate in the visit. ??The patient is located in their home and I, Dr. Carol Branham am located in [facility].?? History today was provided by??chart review and patient report.?? Cancer diagnosis began with development of acute renal failure.?? Admitted to [place] with this December 2024. Found to have cervical mass and bilateral hydronephrosis.?? Biopsy confirmed SCC, PET showed disease extension into uterus, bladder wall. Completed concurrent chemoradiation with immunotherapy, followed by brachytherapy. Admitted with complicated UTI earlier this month.?? Treatments have been through her local Oncology team and [place].?? Anticipates a follow up PET in June.?? [...] will take Tylenol at times for this, 5h343ik or 2i115fy.?? Feels that currently it is not severe [...] the guidance of her local Oncologist and [place].?? Please see below.?? Current Decision Making Capacity [...] caring for ALYSSA Carol Branham MD Physician [phone] cc:Axel Palomo MD Electronically signed by Carol Branham MD 05/14/2025 09:56 CDT
--- OUTSIDE RECORDS SUMMARY | 2025-08-07 23:06 | XMS_ITS ---
Author Name Interface, [id number] lity Address [address] [address] [facility] Address [address] [address] Support Name Relationship Address Phone Jesse Wei [...] use of real-time audio and video via [employer]. ??Alyssa has provided written consent to conduct this visit via telemedicine. ??The patient participated in this visit, noted that her home health RN was in the room however he/she did not participate in the visit. ??The patient is located in their home and I, Dr. Carol Branham am located in [facility].?? History today was provided by??chart review and patient report.?? Cancer diagnosis began with development of acute renal failure.?? Admitted to [place] with this December 2024. Found to have cervical mass and bilateral hydronephrosis.?? Biopsy confirmed SCC, PET showed disease extension into uterus, bladder wall. Completed concurrent chemoradiation with immunotherapy, followed by brachytherapy. Admitted with complicated UTI earlier this month.?? Treatments have been through her local Oncology team and [place].?? Anticipates a follow up PET in June.?? [...] will take Tylenol at times for this, 7o692zx or 0y114jf.?? Feels that currently it is not severe [...] the guidance of her local Oncologist and [place].?? Please see below.?? Current Decision Making Capacity [...] concerns.?? Should Alyssa resume care within [facility], we would be happy to see her in follow up to screen for further care needs.?? Total of??32??minutes were spent on this encounter, including video visit from??954AM - 1016AM??andremaining time spent in documentation, chart review.?? Thank you for including me in caring for ALYSSA Carol Branham MD Physician [phone] cc:Axel Palomo MD Electronically signed by Carol Branham MD 05/14/2025 09:56 CDT
--- OUTSIDE RECORDS SUMMARY | 2025-08-07 23:07 | XMS_ITS ---
Author Name Interface, [id number] lity Address [address] [address] [facility] Address [address] [address] Support Name Relationship Address Phone Jesse Wei [...] use of real-time audio and video via [employer]. ??Alyssa has provided written consent to conduct [...] development of acute renal failure.?? Admitted to [place] with this December 2024. Found to have cervical mass and bilateral hydronephrosis.?? Biopsy confirmed SCC, PET showed disease extension into uterus, bladder wall. Completed concurrent chemoradiation with immunotherapy, followed by brachytherapy. Admitted with complicated UTI earlier this month.?? Treatments have been through her local Oncology team and [place].?? Anticipates a follow up PET in June.?? [...] will take Tylenol at times for this, 0a885dn or 9a577ke.?? Feels that currently it is not severe [...] the guidance of her local Oncologist and [place].?? Please see below.?? Current Decision Making Capacity [...] related concerns.?? Should Alyssa resume care within [facility], we would be happy to see her in follow up to screen for further care needs.?? Total of??32??minutes were spent on this encounter, including video visit from??954AM - 1016AM??andremaining time spent in documentation, chart review.?? Thank you for including me in caring for ALYSSA Carol Branham MD Physician [phone] cc:Axel Palomo MD Electronically signed by Carol Branham MD 05/14/2025 09:56 CDT
--- OUTSIDE RECORDS SUMMARY | 2025-08-07 23:07 | XMS_ITS ---
Author Name Interface, [id number] lity Address [address] [address] [facility] Address [address] [address] Support Name Relationship Address Phone Jesse Wei [...] use of real-time audio and video via [employer]. ??Alyssa has provided written consent to conduct this visit via telemedicine. ??The patient participated in this visit, noted that her home health RN was in the room however he/she did not participate in the visit. ??The patient is located in their home and I, Dr. Carol Branham am located in [facility].?? History today was provided by??chart review and patient report.?? Cancer diagnosis began with development of acute renal failure.?? Admitted to [place] with this December 2024. Found to have cervical mass and bilateral hydronephrosis.?? Biopsy confirmed SCC, PET showed disease extension into uterus, bladder wall. Completed concurrent chemoradiation with immunotherapy, followed by brachytherapy. Admitted with complicated UTI earlier this month.?? Treatments have been through her local Oncology team and [place].?? Anticipates a follow up PET in June.?? [...] will take Tylenol at times for this, 9i108kq or 5h153jp.?? Feels that currently it is not severe [...] the guidance of her local Oncologist and [place].?? Please see below.?? Current Decision Making Capacity [...] related concerns.?? Should Alyssa resume care within [facility], we would be happy to see her in follow up to screen for further care needs.?? Total of??32??minutes were spent on this encounter, including video visit from??954AM - 1016AM??andremaining time spent in documentation, chart review.?? Thank you for including me in caring for ALYSSA Carol Branham MD Physician [phone] cc:Axel Palomo MD Electronically signed by Carol Branham MD 05/14/2025 09:56 CDT
--- OUTSIDE RECORDS SUMMARY | 2025-08-07 23:07 | XMS_ITS ---
Author Name Interface, [id number] lity Address [address] [address] [facility] Address [address] [address] Support Name Relationship Address Phone Jesse Wei [...] use of real-time audio and video via [employer]. ??Alyssa has provided written consent to conduct this visit via telemedicine. ??The patient participated in this visit, noted that her home health RN was in the room however he/she did not participate in the visit. ??The patient is located in their home and I, Dr. Carol Branham am located in [facility].?? History today was provided by??chart review and patient report.?? Cancer diagnosis began with development of acute renal failure.?? Admitted to [place] with this December 2024. Found to have cervical mass and bilateral hydronephrosis.?? Biopsy confirmed SCC, PET showed disease extension into uterus, bladder wall. Completed concurrent chemoradiation with immunotherapy, followed by brachytherapy. Admitted with complicated UTI earlier this month.?? Treatments have been through her local Oncology team and [place].?? Anticipates a follow up PET in June.?? [...] will take Tylenol at times for this, 2d479bd or 8u821pb.?? Feels that currently it is not severe [...] the guidance of her local Oncologist and [place].?? Please see below.?? Current Decision Making Capacity [...] related concerns.?? Should Alyssa resume care within [facility], we would be happy to see her in follow up to screen for further care needs.?? Total of??32??minutes were spent on this encounter, including video visit from??954AM - 1016AM??andremaining time spent in documentation, chart review.?? Thank you for including me in caring for ALYSSA Carol Branham MD Physician [phone] cc:Axel Palomo MD Electronically signed by Carol Branham MD 05/14/2025 09:56 CDT
--- OUTSIDE RECORDS SUMMARY | 2025-08-07 23:07 | XMS_ITS ---
Author Name Interface, [id number] lity Address [address] [address] [facility] Address [address] [address] Support Name Relationship Address Phone Jesse Wei [...] use of real-time audio and video via [employer]. ??Alyssa has provided written consent to conduct [...] development of acute renal failure.?? Admitted to [place] with this December 2024. Found to have cervical mass and bilateral hydronephrosis.?? Biopsy confirmed SCC, PET showed disease extension into uterus, bladder wall. Completed concurrent chemoradiation with immunotherapy, followed by brachytherapy. Admitted with complicated UTI earlier this month.?? Treatments have been through her local Oncology team and [place].?? Anticipates a follow up PET in June.?? [...] will take Tylenol at times for this, 0j179pf or 2d173cu.?? Feels that currently it is not severe [...] the guidance of her local Oncologist and [place].?? Please see below.?? Current Decision Making Capacity [...] caring for ALYSSA Carol Branham MD Physician [phone] cc:Axel Palomo MD Electronically signed by Carol Branham MD 05/14/2025 09:56 CDT
--- OUTSIDE RECORDS SUMMARY | 2025-08-07 23:08 | XMS_ITS ---
Author Name Interface, [id number] lity Address [address] [address] [facility] Address [address] [address] Support Name Relationship Address Phone Jesse Wei [...] use of real-time audio and video via [employer]. ??Alyssa has provided written consent to conduct [...] development of acute renal failure.?? Admitted to [place] with this December 2024. Found to have cervical mass and bilateral hydronephrosis.?? Biopsy confirmed SCC, PET showed disease extension into uterus, bladder wall. Completed concurrent chemoradiation with immunotherapy, followed by brachytherapy. Admitted with complicated UTI earlier this month.?? Treatments have been through her local Oncology team and [place].?? Anticipates a follow up PET in June.?? [...] will take Tylenol at times for this, 8v145rs or 0y302gh.?? Feels that currently it is not severe [...] the guidance of her local Oncologist and [place].?? Please see below.?? Current Decision Making Capacity [...] related concerns.?? Should Alyssa resume care within [facility], we would be happy to see her in follow up to screen for further care needs.?? Total of??32??minutes were spent on this encounter, including video visit from??954AM - 1016AM??andremaining time spent in documentation, chart review.?? Thank you for including me in caring for ALYSSA Carol Branham MD Physician [phone] cc:Axel Palomo MD Electronically signed by Carol Branham MD 05/14/2025 09:56 CDT
[2025-08-07 23:19] LABS: Hematocrit* 29.3 % (33.0-51.0); Hemoglobin* 9.3 gm/dL (12.0-16.0); Immature Granulocytes Abs Auto 0.02 K/uL (0.00-0.30); Immature Granulocytes Pct Auto 0.3 %; Mean Corpuscular HGB Conc 32 gm/dL (32-36); Mean Corpuscular Hemoglobin 30 pg (26-34); Mean Corpuscular Volume 95 fL (80-100); RDW Coefficient of Variation % 17.2 % (11.5-15.5); Red Blood Count* 3.10 m/uL (4.00-5.20); White Blood Count* 7.41 K/uL (4.50-11.00)
[2025-08-07 23:22] LABS: Lymphocytes Absolute Auto 0.20 K/uL (0.90-2.90)
[2025-08-07 23:23] LABS: Slide Review Reflex No
[2025-08-07 23:31] LABS: Chloride* 97 mmol/L (96-114); Potassium* 3.7 mmol/L (3.6-5.1); Sodium* 127 mmol/L (135-149)
[2025-08-07 23:34] LABS: Anion Gap 6 mEq/L (7-15); Blood Urea Nitrogen* 25 mg/dL (7-30); Calcium* 8.6 mg/dL (8.4-10.6); Carbon Dioxide* 24 mmol/L (20-32); Creatinine* 1.1 mg/dL (0.5-1.5); Estimated Glomerular Filt Rate 52 ml/min; Glucose* 146 mg/dL (60-115); INR 1.21 (0.91-1.10); Prothrombin Time 16.2 Seconds
[2025-08-08] VITALS (11 sets, daily range): BP systolic 139–154; BP diastolic 79–91; PULSE 92–95; RESP 15–24; TEMP 36.9; O2SAT 92–96
--- NOTE | 2025-08-08 02:11 | W.PM.TELEH&P ---
Telehealth- H&P: HPI History of Present Illness Date Seen: 08/08/25 Chief complaint: stroke Narrative: Alyssa Garcia is seen as an Interactive Telehealth visit. 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 On my encounter patient is alert oriented x 4 and sister who has power of block feeder at bedside reports sudden onset of symptoms brought her to the hospital. She denies having chest pain, abdominal pain, fall, syncope, vision change. On arrival to ER blood pressure 150/91, heart rate 92, afebrile, sodium 127, CT head and CTA head and neck with subtotal area of low-attenuation changes with loss of allen-white differentiation in the right frontal lobe and hyperdense right MCA sign suspicious for acute ischemia. Patient would have benefited from thrombectomy but unfortunately patient and power of block feeder sister at bedside declined any intervention and wants comfort measures with knowing underlying squamous cell carcinoma of cervix. On my encounter I had lengthy discussion with patient and sister POA at bedside. I had clearly informed if patient refused or unable to have thrombectomy weakness likely going to be permanent. Patient and POA/sister is very firm on their decision that they do not want any acute intervention. I also had discussed with in regard of anticoagulation since patient had large DVT/PE required intervention and currently on Lovenox and knowing current situation of having acute CVA may can convert into hemorrhagic stroke. For now patient and POA does not want anticoagulation and may consider after a week/time duration. Review of Systems Status of ROS: Reports: 10 or more systems reviewed and unremarkable except as noted in History and below [facility] Medical History Lung consolidation ?J18.1 - Lobar pneumonia, unspecified organism (ICD-10) Complicated urinary tract infection ?N39.0 - Urinary tract infection, site not specified (ICD-10) Ureteral obstruction ?N13.5 - Crossing vessel and stricture of ureter without hydronephrosis (ICD-10) Squamous cell carcinoma of cervix ?C53.9 - Malignant neoplasm of cervix uteri, unspecified (ICD-10) Hyponatremia ?E87.1 - Hypo-osmolality and hyponatremia (ICD-10) Pure hypercholesterolemia ?E78.00 - Pure hypercholesterolemia, unspecified (ICD-10) Essential hypertension ?I10 - Essential (primary) hypertension (ICD-10) Surgical History H/O insertion of nephrostomy tube ?Z98.890 - Other specified postprocedural states (ICD-10) Social History What is your current living situation?: I presently have a place to live Problems where you live: no known problems Problems where you live details: N/A In the past 12 months, utilities in danger of being shut off: no In past 12 months, lack of transportation kept you from medical appts, meetings, work, or getting things needed for daily living: no In the past 12 mos, have been you worried that your food would run out before you had money to buy more?: never true In the past 12 mos, the food you bought just didn't last and you didn't have money to buy more?: never true Highest level of school completed/degree received: Bachelor's degree Smoking Status: Never smoker Second hand tobacco smoke exposure: No How often do you have a drink containing alcohol: never AUDIT-C Alcohol total score: 0 Non-prescribed substance use: denies use Caffeine: Yes (1c/day) How often does anyone, including family, friends and others, physically hurt you: never How often does anyone, including family, friends and others, insult or talk down to you: never How often does anyone, including family, friends and others, threaten you with harm: never How often does anyone, including family, friends and others, scream or curse at you: never Are you using contraception or practicing any form of control: No service: No Meds Home Medications and Allergies Home Medications ?Medication ?Instructions ?Recorded ?Confirmed ?Type coenzyme Q10 100 mg capsule (Co 100 mg PO DAILY 02/10/25 08/01/25 History Q-10) omega-3 fatty acids-fish oil 360 1 cap PO DAILY 02/10/25 08/01/25 History mg-1,200 mg capsule trazodone 50 mg tablet 50 mg PO HS 03/14/25 08/01/25 History carvedilol 25 mg tablet 25 mg PO BID 04/28/25 08/01/25 History polyethylene glycol 3350 17 gram 17 g PO DAILY 07/16/25 08/01/25 History oral powder packet sennosides 8.6 mg-docusate sodium 1 tab-cap PO BID 07/16/25 08/01/25 History 50 mg tablet (Senna with Docusate Sodium) enoxaparin 60 mg/0.6 mL 60 mg subcut Q12H 08/01/25 08/01/25 History subcutaneous syringe (Lovenox) Allergies Allergy/AdvReac Type Severity Reaction Status Date / Time calcium chloride Allergy Severe nausea/vomi Verified 08/07/25 23:48 tting fentanyl Allergy Severe nausea/vomi Verified 08/07/25 23:48 tting ciprofloxacin (From Cipro) AdvReac Intermediate Diarrhea, Verified 08/07/25 23:48 calf cramping Exam Narrative Exam Narrative: Physical Exam GENERAL: ?vital signs reviewed, well developed and nourished, in no distress HEENT: pupils are equal round and reactive to light, extraocular movements are grossly within normal limits and oral mucosa is moist. NECK: Supple without lymphadenopathy or thyromegaly according to nursing staff examination observation HEART: Regular rate and rhythm without any rubs, murmurs, or gallops. LUNGS: Clear to auscultation bilaterally with good air movement throughout ABDOMEN: Observation from nurse assisted exam, abdomen appears soft, nontender, and nondistended with Positive bowel sounds noted. EXTREMITIES: Strength and sensation is observed to be grossly within normal limits in the upper and lower extremities.? No focal strength deficit is observed. SKIN:? Observed warm and dry with color normal Const Vital Signs, click to edit/add: Vital Signs - 24 hr 08/07/25 22:54 08/07/25 22:55 08/07/25 22:56 Temperature 98.6 F Pulse Rate Pulse Rate [Pulse Oximeter] 97 Respiratory Rate 20 15 22 Blood Pressure 140/76 H Blood Pressure [Left Forearm] 132/74 Pulse Oximetry 91 Oxygen Delivery Method Room Air 08/07/25 22:57 08/07/25 22:59 08/07/25 23:00 Temperature Pulse Rate 97 94 Pulse Rate [Pulse Oximeter] Respiratory Rate 18 15 Blood Pressure 132/74 Blood Pressure [Left Forearm] Pulse Oximetry 92 93 92 Oxygen Delivery Method 08/07/25 23:02 08/07/25 23:15 08/07/25 23:17 Temperature Pulse Rate 95 95 94 Pulse Rate [Pulse Oximeter] Respiratory Rate 16 10 L 22 Blood Pressure 138/73 140/78 H Blood Pressure [Left Forearm] Pulse Oximetry 90 93 93 Oxygen Delivery Method 08/07/25 23:30 08/07/25 23:32 08/07/25 23:45 Temperature Pulse Rate 95 95 Pulse Rate [Pulse Oximeter] Respiratory Rate 22 21 27 H Blood Pressure 133/82 Blood Pressure [Left Forearm] Pulse Oximetry 94 93 Oxygen Delivery Method 08/07/25 23:47 08/08/25 00:00 08/08/25 00:02 Temperature Pulse Rate 95 94 Pulse Rate [Pulse Oximeter] Respiratory Rate 22 23 22 Blood Pressure 129/81 142/86 H Blood Pressure [Left Forearm] Pulse Oximetry 92 92 Oxygen Delivery Method 08/08/25 00:02 08/08/25 00:02 08/08/25 00:15 Temperature Pulse Rate 94 94 94 Pulse Rate [Pulse Oximeter] Respiratory Rate 22 22 19 Blood Pressure 142/86 H 142/86 H Blood Pressure [Left Forearm] Pulse Oximetry 92 92 93 Oxygen Delivery Method 08/08/25 00:17 08/08/25 00:30 08/08/25 00:31 Temperature Pulse Rate 95 94 93 Pulse Rate [Pulse Oximeter] Respiratory Rate 22 24 22 Blood Pressure 149/79 H 144/87 H Blood Pressure [Left Forearm] Pulse Oximetry 92 92 92 Oxygen Delivery Method 08/08/25 00:56 08/08/25 01:00 08/08/25 01:01 Temperature Pulse Rate 95 94 93 Pulse Rate [Pulse Oximeter] Respiratory Rate 15 20 20 Blood Pressure 154/91 H Blood Pressure [Left Forearm] Pulse Oximetry 93 96 95 Oxygen Delivery Method Room Air 08/08/25 01:15 Temperature Pulse Rate 92 Pulse Rate [Pulse Oximeter] Respiratory Rate 22 Blood Pressure Blood Pressure [Left Forearm] Pulse Oximetry 96 Oxygen Delivery Method Common normals: no apparent distress and oriented x3 HENMT Common normals: normocephalic Head and scalp: normocephalic Neck & C-Spine Common normals: full ROM and no lymphadenopathy Extremity Common normals: full ROM and no pedal edema Neuro Raymond Coma Scale: other (+ left lower facial droop, Left upper ext streght 0/5, left lower ext streght 2/5. R upper and lower ext streght 5/5 ) Common normals: oriented x3 Hospitalist - H&P: Result Labs Labs: Short CBC 08/07/25 Range/Units 23:16 WBC 7.41 (4.50-11.00) K/uL Hgb 9.3 L (12.0-16.0) gm/dL Hct 29.3 L (33.0-51.0) % Plt Count 63 L (140-440) K/uL BMP 08/07/25 23:16 Sodium 127 L Potassium 3.7 Chloride 97 Carbon Dioxide 24 BUN 25 Creatinine 1.1 Glucose 146 H Calcium 8.6 Assessment and Plan Assessment and plan (1) Acute stroke due to ischemia: Status: Acute (2) Cervical cancer: Problem comment: -clinical stage BRICE cervical cancer, s/p definitive concurrent chemoradiation with weekly carboplatin + pembrolizumab (cycle 6 completed on 06/13/2025) -followed by [facility], Dr. 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 Admitted for acute CVA, comfort measures. #Acute CVA > Patient has left upper and lower extremity weakness, left facial droop. Symptoms started roughly around 8-9pm. CT head and CTA head and neck with subtotal area of low-attenuation changes with loss of allen-white differentiation in the right frontal lobe and hyperdense right MCA sign suspicious for acute ischemia. Patient would have benefited from thrombectomy but unfortunately patient and power of block feeder sister at bedside declined any intervention and wants comfort measures with knowing underlying squamous cell carcinoma of cervix. > Family wants comfort measures. Do not want any aggressive treatment/diagnostic workup including MRI brain. For now due to concern of significant left facial droop NPO. COMMUNITY DIRECTOR evaluation, PT evaluation. Started on aspirin 300 mg per rectal. Allow permissive hypertension. Anticoagulation Lovenox on hold since concern for acute CVA. Case management needs to be consulted tomorrow morning for hospice as outpatient. Telemedicine Statement: 1 Service was provided using HIPAA compliant platform for audio/visual equipment. 2 Patient location: [place] 3 Provider location: [place] 4 Participants telephone order clerk room service: Bedside RN, patient 5 Consent was obtained and the patient was seen with nurse assisting at the bedside. Anticipated length of stay: I anticipate the patient requires hospital level of care for at least <2 midnights/observation or longer based on the complexity of the patient's medical illness acute CVA/comfort measures which includes the need for PT OT evaluation COMMUNITY DIRECTOR evaluation that cannot be done at a lower level of care no other than inpatient management Consent: - Patient?s identity was confirmed. - Medical condition or illness was discussed with the patient/personal exhibit display representative. - Current proposed treatment for medical condition or illness was explained to patient/personal exhibit display representative along with the likely benefits, significant risks and complications associated with the treatment. - The patient/personal exhibit display representative verbally authorized treatment to be provided by audio/video, which may include a limited review of patient?s current health status, medication or other treatment recommendations, patient education and an opportunity to ask questions about condition and treatment. - I have reviewed all available old records and data - Verbal Consent granted: Yes I spent total of 78 minutes providing care to this patient which includes time for face to face visit via telemedicine, review of medical records, imaging studies and discussion of findings with providers, the patient . Telehealth: Statement Statement Telehealth Visit: Today's History and Physical is provided via interactive telehealth by Moises White MD.? Patient is located at [facility].? Provider is located at [facility].? Nursing staff assisted with the patient's exam. The visit being done today meets criteria for a telehealth visit and the patient or patient?s parent/guardian is aware the visit is a telehealth visit.
--- NOTE | 2025-08-08 05:20 | PC.NURSE ---
Pt alert and oriented. Pt had no complaints of pain. Pt has left sided weakness. Pt up to bedside commode with pivot assist of two. Pt's sister at bedside.
--- NOTE | 2025-08-08 09:23 | W.PC.NUTR.NO ---
Nutrition Progress Note Progress Note Progress Note: RDN with nutrition screen for positive MST score. Per IDT today, patient is on comfort cares at this time and not appropriate for nutrition visit. RDN will monitor.
--- NOTE | 2025-08-08 12:25 | PC.SOCIAL ---
Addendum entered by CRUZ Kuhn 08/08/25 14:02: Received call back from [facility] , stating they do not have any availability, but referral can be sent for evaluation when a bed is available and they can transfer at patient from a jail to their facility. Faxed requested information to admissions at [facility] at . Called [facility] [phone] and spoke with intake who stated nursing home social worker can send information for hospice services now and follow up with destination location for discharge when determined. [facility] requested information be faxed to intake at [phone]. Addendum entered by CRUZ Kuhn 08/08/25 12:53: Called [facility] [phone] and left message requesting call back regarding availability. Awaiting call back. homeworker to follow up as needed. Original Note: Discharge planning: Spoke with sister, Brooke who is pt's POA for healthcare, sister states she wants pt to have hospice arranged with [facility] as she has had [facility] currently and this has been good care. Sister is requesting nursing home social worker look into placement at a care facility in [place] with hospice services. Explained to sister the coverage of hospice by Medicare but that private pay requirement for care center stay. Sister requested nursing home social worker also look into placement at [facility] who provides free hospice residential care as she has had a family member receive these services in the past. Sister, states pt's elderly has some memory issues but is private and will want to stay in his own home if pt is placed in facility. Sister states she is checking on him but does not want nursing home social worker to look for availability for placement for pt's at this time. Contacted the following facilities regarding placement with the listed results: 1. [facility] - spoke with Geraldine, no beds available at this facility. 2. [facility] - spoke with Fadumo who stated there are no available beds in this facility. 3. [facility] - spoke with Ne, who states they have available private rooms. Secure emailed information to [facility] or evaluation for admit. Awaiting decision on admit. homeworker to follow up as needed.
--- NOTE | 2025-08-08 13:31 | P.IMPN_ITS ---
Assessment and Plan Assessment and plan (1) Acute right MCA stroke: Problem comment: -fairly dense left hemiparesis, slurred speech, swallow is intact but speech is recommending pureed solids; thin liquids, coaching for swallowing -pt declined thrombectomy and thrombolytics were contraindicated -pt and family want hospice/comfort cares Status: Acute (2) Left hemiparesis: Status: Acute (3) Cervical cancer: Problem comment: -clinical stage BRICE cervical cancer, s/p definitive concurrent chemoradiation with weekly carboplatin + pembrolizumab (cycle 6 completed on 06/13/2025) -followed by [facility], Dr. Almanzar and Gris Huddleston Status: Chronic (4) Pulmonary emboli: Problem comment: -saddle despite eliquis -s/p thrombectomy with life threatening complications -has been on lovenox (treatment dose since) Status: Acute (5) IVC thrombosis: Problem comment: -CT shows IVC thrombus and thrombus extending into the proximal right renal vein and right common iliac vein -management with heparin - 07/16 doing well. Transitioning to DOAC for discharge home, as above. Status: Acute (6) Chronic hyponatremia: Problem comment: One hundred twenty-seven, baseline is 132 Status: Chronic (7) Anemia: Problem comment: Hemoglobin 9.3, baseline 10-11 Suspect anemia of chronic disease in setting of active cancer and therapies. No current or recent notable concern for acute blood loss as cause - 07/16 Hgb 11.1 today, improving/stable Status: Chronic (8) Nephrostomy present: Problem comment: -ureter obstruction from cervical cancer; XRT -previous urosepsis requiring exchange of b/l tubes Status: Acute Subjective Date Seen: 08/08/25 Interval history: Daily Progress Note - Hospital Medicine Day #: 1 - admitted at 0200 this morning CC: Acute right MCA stroke 24 HOUR UPDATE: Alyssa was admitted earlier this morning with an acute right MCA stroke resulting in dense left hemiparesis, slurred speech and swallowing difficulty. Her sister is bedside. She has been hemodynamically stable since arrival and her sister is the POA and makes her goals of care very clear. They are interested in hospice. They declined transfer for arterial thrombectomy. She was not a candidate for thrombolysis given her active anticoagulation with Lovenox, low platelets, unclear last known well. Patient was seen by stroke neuro. Admitted by our tele hospitalist several hours ago. She has received Ativan at 0 3 this morning, Benadryl IV, rectal aspirin and normal saline. Her H&P was thoroughly reviewed. Notable Labs, Micro, Rads, Interventions: Most recent vital signs 139/89. Pulse 93. Respirations 20. Afebrile. 96% on room air. Admit labs reviewed. Objective: barely conscious. She is in the recliner but there is a clear heavy right tilt. She is drooling from the left side of her mouth. Hemiparesis noted at throughout the left side of her body. Vitals: Stable see above Lungs: Clear. Cardiac: S1S2. Neuro: 1-25 for strength along the left side. Her speech is slurred. Her consciousness level is diminished. No obvious pain. Disposition/Potential discharge - Hospice placement Today I spent 50 minutes seeing the patient, reviewing Expanse and EPIC notes/diagnostics, discussing the care plan with our care time that includes social work, PT/OT, pharmacy, RT, fdc and documenting my impressions and plan in the medical record. Exam Const: Vital Signs, click to edit/add: Vital Signs - 24 hr 08/07/25 22:54 08/07/25 22:55 08/07/25 22:56 Temperature 98.6 F Pulse Rate Pulse Rate [Pulse Oximeter] 97 Respiratory Rate 20 15 22 Blood Pressure 140/76 H Blood Pressure [Le ft Arm] Blood Pressure [Le ft Forearm] 132/74 Pulse Oximetry 91 Oxygen Delivery Me thod Room Air 08/07/25 22:57 08/07/25 22:59 08/07/25 23:00 Temperature Pulse Rate 97 94 Pulse Rate [Pulse Oximeter] Respiratory Rate 18 15 Blood Pressure 132/74 Blood Pressure [Le ft Arm] Blood Pressure [Le ft Forearm] Pulse Oximetry 92 93 92 Oxygen Delivery Me thod 08/07/25 23:02 08/07/25 23:15 08/07/25 23:17 Temperature Pulse Rate 95 95 94 Pulse Rate [Pulse Oximeter] Respiratory Rate 16 10 L 22 Blood Pressure 138/73 140/78 H Blood Pressure [Le ft Arm] Blood Pressure [Le ft Forearm] Pulse Oximetry 90 93 93 Oxygen Delivery Me thod 08/07/25 23:30 08/07/25 23:32 08/07/25 23:45 Temperature Pulse Rate 95 95 Pulse Rate [Pulse Oximeter] Respiratory Rate 22 21 27 H Blood Pressure 133/82 Blood Pressure [Le ft Arm] Blood Pressure [Le ft Forearm] Pulse Oximetry 94 93 Oxygen Delivery Me thod 08/07/25 23:47 08/08/25 00:00 08/08/25 00:02 Temperature Pulse Rate 95 94 Pulse Rate [Pulse Oximeter] Respiratory Rate 22 23 22 Blood Pressure 129/81 142/86 H Blood Pressure [Le ft Arm] Blood Pressure [Le ft Forearm] Pulse Oximetry 92 92 Oxygen Delivery Me thod 08/08/25 00:02 08/08/25 00:02 08/08/25 00:15 Temperature Pulse Rate 94 94 94 Pulse Rate [Pulse Oximeter] Respiratory Rate 22 22 19 Blood Pressure 142/86 H 142/86 H Blood Pressure [Le ft Arm] Blood Pressure [Le ft Forearm] Pulse Oximetry 92 92 93 Oxygen Delivery Me thod 08/08/25 00:17 08/08/25 00:30 08/08/25 00:31 Temperature Pulse Rate 95 94 93 Pulse Rate [Pulse Oximeter] Respiratory Rate 22 24 22 Blood Pressure 149/79 H 144/87 H Blood Pressure [Le ft Arm] Blood Pressure [Le ft Forearm] Pulse Oximetry 92 92 92 Oxygen Delivery Me od 08/08/25 00:56 08/08/25 01:00 08/08/25 01:01 Temperature Pulse Rate 95 94 93 Pulse Rate [Pulse Oximeter] Respiratory Rate 15 20 20 Blood Pressure 154/91 H Blood Pressure [Le ft Arm] Blood Pressure [Le ft Forearm] Pulse Oximetry [address] [facility] 08/08/25 01:15 08/08/25 02:38 Temperature 98.4 F Pulse Rate 92 Pulse Rate [Pulse Oximeter] 93 Respiratory Rate 22 20 Blood Pressure Blood Pressure [Le ft Arm] 139/89 Blood Pressure [Le ft Forearm] Pulse Oximetry 96 96 Oxygen Delivery Me od Room Air Labs Labs: Laboratory Results - last 24 hr 08/07/25 23:16 WBC 7.41 RBC 3.10 L Hgb 9.3 L Hct 29.3 L MCV 95 MCH 30 MCHC 32 RDW Coeff of Myrna 17.2 H Plt Count 63 L Neut % (Auto) 88.7 H Lymph % (Auto) 2.8 L [place] % (Auto) 8.1 Eos % (Auto) 0.0 Baso % (Auto) 0.1 Neut # (Auto) 6.60 Lymph # (Auto) 0.20 L [place] # (Auto) 0.60 Eos # (Auto) 0.00 Baso # (Auto) 0.01 Abs Immat Gran (auto) 0.02 Imm/Tot Granulo (auto) 0.3 INR 1.21 H APTT 52 H Sodium 127 L Potassium 3.7 Chloride 97 Carbon Dioxide 24 Anion Gap 6 L BUN 25 Creatinine 1.1 Estimated GFR 52 Glucose 146 H Calcium 8.6
[2025-08-08] MEDS: HEPARIN 500 UNIT/5 ML SYRINGE IVF ×3 (14:40→21:43)
--- NOTE | 2025-08-08 18:39 | PC.NURSE ---
Pt able to make needs known, pt unable to verbalize pain level. q2 repos, assist of 2 w/ lift to commode. Pureed diet and thicken liquids tolerated, left facial drop and left sided weakness present. family at bedside for most of shift. pt in bed at this time, chest rise and fall noted
[2025-08-08] MEDS: SODIUM CHLORIDE 0.9 % (FLUSH) 10 ML SYRINGE IVF (21:42)
[2025-08-09] MEDS: SODIUM CHLORIDE 0.9 % (FLUSH) 10 ML SYRINGE IVF ×2 (06:22→11:14)
[2025-08-09] MEDS: HEPARIN 500 UNIT/5 ML SYRINGE IVF ×2 (06:22→11:14)
--- NOTE | 2025-08-09 08:45 | CRLHL7_ITS ---
For Patients: As a result of the Cures Act, medical imaging exams and procedure reports are released immediately into your electronic medical record. You may view this report before your referring provider. If you have questions, please contact your health care provider. Indication: Pain and bruising Technique: Two views of the left shoulder were obtained portably Comparison: None Findings: As described below Impression: 1. Demineralization. 2. No fracture or destructive process. 3. 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 Deformity of the humeral head and glenoid. This pattern is often seen in chronic recurrent dislocations though severe osteoarthritis without history dislocation is possible. 4. There is mild incongruity of the glenohumeral joint though this is probably not a complete dislocation. This is probably subluxation due to abnormally shaped glenoid. 5. There is soft tissue swelling laterally. The etiology of this is uncertain. No gas within soft tissues or radiopaque foreign body. Dictated by Chase Hdez MD @ 08/09/2025 9:38:08 AM (Electronically Signed)
--- NOTE | 2025-08-09 09:09 | PC.NURSE ---
Patient turned and repositioned this morning around 0800, fentanyl patch on left shoulder not seen, found on top of sheets and disposed in med room with Katiana RN. Bruise noted this morning on left shoulder, not seen yesterday during assessment. MD updated and ordered xray. Updated sister/POA of plan. Per patients sister patient slid off chair and fell to ground at home prior to admission.
--- NOTE | 2025-08-09 10:27 | PC.SOCIAL ---
Discharge planning: Received confirmation pt can be admitted to [facility] today. Facility admissions to call sister to discuss finances. Met with sister, Brooke, who is aware and agrees with discharge to [facility] when ready for discharge from the hospital. Sister states she has changed her mind about the hospice agency and would like hospice arranged with [facility]. Called and faxed information to [facility] and arranged for intake at [facility] today at 2:30pm. Called [facility] and cancelled arrangements completed yesterday as family is now requesting [facility]. PAS completed and submitted PAS #[id number]. [facility] is requesting pt arrive before 2:00 today. Pt will need ambulance transport at discharge. 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
--- NOTE | 2025-08-09 12:13 | PC.NURSE ---
Pt assist of 2 with ceiling lift, no pain reported throughout shift. Pt on pureed reg diet, small appetite throughout shift. Port deaccessed, needle intact. Report given to nurse [facility] at [facility], pt left facility via EMS.
--- NOTE | 2025-08-09 16:44 | PM.DS1 ---
DS: Providers Provider Date Seen: 08/09/25 Date of admission: 08/08/25 01:19 Primary care physician: Axel Palomo MD Admitting Clinician: David Cheema MD Consults: 08/08/25 01:58 Consult to Physical Therapy [CONS] Routine Comment: Reason(s) for PT Consult:: Weakness Any Restrictions?:: No Restrictions Comment: left side weakness stroke work up Consult to Speech Therapy [CONS] Routine Comment: Reason(s) for Speech Consult:: Speech/Swallowing Eval Comment: stroke work up Attending Physician on discharge: Lizet Rust MD [facility] Date of Discharge: 08/09/25 DS: Diagnosis Discharge Diagnosis (1) Acute right MCA stroke: Status: Acute Problem details: -fairly dense left hemiparesis, slurred speech, swallow is intact but speech is recommending pureed solids; thin liquids, coaching for swallowing -pt declined thrombectomy and thrombolytics were contraindicated -pt and family want hospice/comfort cares 08/09/2025 transferred to hospice at [facility]. (2) Left hemiparesis: Status: Acute (3) Cervical cancer: Status: Chronic Problem details: -clinical stage BRICE cervical cancer, s/p definitive concurrent chemoradiation with weekly carboplatin + pembrolizumab (cycle 6 completed on 06/13/2025) -followed by [facility], Dr. Almanzar and Gris Huddleston (4) Pulmonary emboli: Status: Acute Problem details: -saddle despite eliquis -s/p thrombectomy with life threatening complications -has been on lovenox (treatment dose since) (5) IVC thrombosis: Status: Acute Problem details: -CT shows IVC thrombus and thrombus extending into the proximal right renal vein and right common iliac vein -management with heparin - 07/16 doing well. Transitioning to DOAC for discharge home, as above. (6) Chronic hyponatremia: Status: Chronic Problem details: One hundred twenty-seven, baseline is 132 (7) Anemia: Status: Chronic Problem details: Hemoglobin 9.3, baseline 10-11 Suspect anemia of chronic disease in setting of active cancer and therapies. No current or recent notable concern for acute blood loss as cause - 07/16 Hgb 11.1 today, improving/stable (8) Nephrostomy present: Status: Acute Problem details: -ureter obstruction from cervical cancer; XRT -previous urosepsis requiring exchange of b/l tubes DS: Summary Hospital Course Hospital Course: BRIEF HOSPITAL COURSE: Patient was admitted for 2 days. Synopsis of acute inpatient issues are outlined above. Chronic medical conditions with notable findings outlined above. Alyssa suffered a devastating right MCA ischemic infarct. Resulted clinically in left dense hemiparesis, left facial droop, slurred speech. During the ER evaluation patient and her POA/sister refused transfer to [place] for emergent thrombectomy. Thrombolytics were contraindicated given her chronic anticoagulation. The hospital team pursued comfort cares for her. To that end she was given morphine, fentanyl and benzodiazepines. Upon transfer to halfway she was comfortable, hemodynamically stable without any improvement in her neurologic status. DISCHARGE MEDICATIONS: We discontinued all home meds. Hospice will address pain and comfort. She left with a 25 mcg fentanyl patch. REVIEW OF SYSTEMS Not applicable PHYSICAL EXAM: CONSTITUTIONAL: Barely arousable. Slurred speech. GENERAL: Well-nourished. VITAL SIGNS: see record. HEENT: Sclerae are anicteric. No petechiae. CARDIAC: rhythm is regular. There is no S3 or rub. No harsh murmurs. Extremities show trace edema with symmetrical pulses. PULM: good air entry with no wheeze. NEURO: Dense left hemiparesis. Significant left facial droop. Slurred speech. No significant change from admission. SKIN: No rashes, petechiae, concerning changes DISPOSITION: [facility] Time spent on discharge 37 minutes. Status at Discharge Functional status at discharge: bed bound Overall status at discharge: patient is not back to baseline Time Spent with Patient Time attestation: Total time spent providing and/or coordinating discharge services: Time spent: Greater than 30 minutes Discharge Plan Discharge Disposition: [facility] Date of Admission: 08/08/25 01:19 Attending Provider on Discharge: Lizet Rsut Primary Care Provider: Axel Palomo Discharge Medications: Discontinued enoxaparin [Lovenox] 60 mg/0.6 mL syringe 60 mg subcut Q12H coenzyme Q10 [Co Q-10] 100 mg capsule 100 mg PO DAILY omega-3 fatty acids-fish oil 360-1,200 mg capsule 1 cap PO DAILY trazodone 50 mg tablet 50 mg PO HS carvedilol 25 mg tablet 25 mg PO BID Patient Comments: On hold sennosides-docusate sodium [Senna with Docusate Sodium] 8.6-50 mg tablet 1 tab-cap PO BID polyethylene glycol 3350 17 gram powder in packet 17 g PO DAILY Eliquis 5 mg tablet PO Discharge Orders: Discharge Order (Routine); Ordered 08/09/25 Ordered By: Lizet Rust Activity Detail: likely bedrest, up to chair with ceiling lift as tolerated Diet Detail: likely aspirating -- comfort sips and feeds as tolerated. Dysphagia Food: Level 4- Pureed Dysphagia Liquid: Level 0-Thin Follow Up Appointments: Axel Palomo MD [Primary Care Provider, [facility]] Referral Note: N/A [facility] Discharge Potential: Poor Length of Stay: <30 days Can use facility standing orders?: Yes Code Status: DNR/DNI TEDs: N/A Rehab Potential: Poor Oxygen: No Urinary Catheter: No Hospice Evaluate and Admit: Please evaluate and admit to hospice 08/09 Orders are good >30 days: Yes
--- NOTE | 2025-08-10 10:49 | REH.SLP ---
Speech Language Pathology Discharge Summary Reason for therapy discharge: Discharged to hospice at [facility]. Progress towards therapy goals. Goals not met. See goals in speech therapy notes in [facility] electronic health records. Rehab barriers to achieving goals: discharge from facility. Therapy Recommendations: No further therapy is recommended; discharged on hospice cares.
== END 2025-08-09 11:50 ==
LOC: ED 08-08 00:21 → MEDSURG 08-08 05:32
PROVIDERS: Admitting Provider Family Medicine; Emergency Provider Emergency Medicine; PCP Family Medicine; Visit Provider Family Medicine
DX: I63.9 Cerebral infarction, unspecified (principal); I69.354 Hemiplegia and hemiparesis following cerebral infarction affecting left non-dominant side; I26.99 Other pulmonary embolism without acute cor pulmonale; I82.220 Acute embolism and thrombosis of inferior vena cava; E87.1 Hypo-osmolality and hyponatremia; D64.9 Anemia, unspecified; Z93.6 Other artificial openings of urinary tract status; C53.9 Malignant neoplasm of cervix uteri, unspecified
CPT/HCPCS: 36415; 70450; 70496; 70498; 73030; 80048; 85025; 85610; 85730; 92610; 93005; 94761; 96361; 96374; 96375; 97162; 99285; 99291; A9270; G0378; J1200; J1642; J2060; J7030; Q9967

== ENCOUNTER 2025-08-08 11:00 | Outpatient (RCR) | payer MEDICARE, BC, SELFPAY ==
[2025-02-10 12:43] LABS: Creatinine* 1.4 mg/dL (0.5-1.5); Est. Creatinine Clearance* 31.24; Estimated Glomerular Filt Rate 39 ml/min
[2025-02-17 12:30] LABS: Hematocrit* 33.6 % (33.0-51.0); Hemoglobin* 10.5 gm/dL (12.0-16.0); Immature Granulocytes Abs Auto 0.01 K/uL (0.00-0.30); Immature Granulocytes Pct Auto 0.1 %; Mean Corpuscular HGB Conc 31 gm/dL (32-36); Mean Corpuscular Hemoglobin 30 pg (26-34); Mean Corpuscular Volume 95 fL (80-100); RDW Coefficient of Variation % 14.0 % (11.5-15.5); Red Blood Count* 3.54 m/uL (4.00-5.20); White Blood Count* 6.70 K/uL (4.50-11.00)
[2025-02-17 12:35] LABS: Lymphocytes Absolute Auto 1.30 K/uL (0.90-2.90); Slide Review Reflex No
[2025-02-17 12:44] LABS: Albumin* 4.2 g/dL (3.3-5.0); Chloride* 100 mmol/L (96-114)
[2025-02-17 12:45] LABS: Potassium* 4.7 mmol/L (3.6-5.1); Sodium* 136 mmol/L (135-149)
[2025-02-17 12:47] LABS: Alanine Aminotransferase* 30 U/L (4-35); Alkaline Phosphatase* 69 U/L (40-150); Anion Gap 10 mEq/L (7-15); Aspartate Amino Transferase* 37 U/L (12-35); Bilirubin Total* 0.5 mg/dL (0.1-1.5); Blood Urea Nitrogen* 29 mg/dL (7-30); Carbon Dioxide* 26 mmol/L (20-32); Creatinine* 1.3 mg/dL (0.5-1.5); Est. Creatinine Clearance* 33.65; Estimated Glomerular Filt Rate 43 ml/min; Total Protein* 7.5 g/dL (6.0-8.3)
[2025-02-17 12:48] LABS: Calcium* 10.1 mg/dL (8.4-10.6); Glucose* 106 mg/dL (60-115)
[2025-02-21 10:57] VITALS: BP 152/87; PULSE 71; RESP 16; TEMP 36.2; O2SAT 98
[2025-02-21] MEDS: SODIUM CHLORIDE 0.9 % (FLUSH) 10 ML SYRINGE IVF ×2 (12:15→14:33)
[2025-02-21] MEDS: ONDANSETRON 2 MG/ML inj 8 MG IVP (12:20)
[2025-02-21] MEDS: PEMBROLIZUMAB 200 MG, TUBING PRIMARY 1 EACH, In-line 0.2 micron filter set 1 EACH in 0.... 216 MG IVPB (12:31)
--- NOTE | 2025-02-21 12:46 | ONC.NURNOTE ---
PSDS=3 denied need for SS consult- informed that visit available if she changes her mind
--- NOTE | 2025-02-21 12:47 | ONC.NURNOTE ---
Teaching with Alyssa and her sister on pembrolizumab and carboplatin Alyssa had many questions about management of nephrostomy tubes she has no urology/nephrology follow up schedule, she is not sure who to see to replace tubes at 3 months- due mid March she is not sure where to go if after hours issues with the nephrostomies entry writer will get back to Alyssa on best steps to follow today discussed side effects of carbo is dose dependant- expect minimal side effects with nausea, however will give instructions on antiemetics to prevent nausea, as staying hydrated with hx of ARF is important discussed fatigue, lower blood counts, self care at home, after hours management, calling with first signs of changes at home with pembro- impt to watch for rash, cough, diarrhea, extreme fatigue, any changes at home should be called to our office reviewed contents of new treatment binder questions addressed ALFONSO and consents reviewed and signed
[2025-02-21] MEDS: HEPARIN 500 UNIT/5 ML SYRINGE IVF (14:33)
--- NOTE | 2025-02-22 12:09 | ONC.NURNOTE ---
Post chemotherapy follow up call: reports some nausea last night- she took olanzapine at HS reports feeling a little different today, but is eating her usual diet and reinforced need to continue to drink fluids- staying well hydrated is part of her cares for managing chemotherapy side effects patient needed to be redirected to instructions on calender for taking antiemetics- she was following the directions on the antiemetic bottles reinforced with chemo change from cisplat to carbo we have modified the home antiemetic recommendations calender was provided yesterday with instructions- this was reviewed with patient teach back
[2025-02-28 09:14] VITALS: BP 124/78; PULSE 68; RESP 14; TEMP 36.7; O2SAT 98
[2025-02-28 09:48] LABS: Hematocrit* 29.6 % (33.0-51.0); Hemoglobin* 9.4 gm/dL (12.0-16.0); Immature Granulocytes Pct Auto 0.5 %; Mean Corpuscular HGB Conc 32 gm/dL (32-36); Mean Corpuscular Hemoglobin 30 pg (26-34); Mean Corpuscular Volume 94 fL (80-100); RDW Coefficient of Variation % 14.5 % (11.5-15.5); Red Blood Count* 3.16 m/uL (4.00-5.20); White Blood Count* 3.86 K/uL (4.50-11.00)
[2025-02-28 10:03] LABS: Immature Granulocytes Abs Auto 0.00 K/uL (0.00-0.30); Lymphocytes Absolute Auto 0.50 K/uL (0.90-2.90); Slide Review Reflex No
[2025-02-28 10:08] LABS: Albumin* 3.5 g/dL (3.3-5.0); Chloride* 103 mmol/L (96-114); Potassium* 4.2 mmol/L (3.6-5.1); Sodium* 134 mmol/L (135-149)
[2025-02-28 10:11] LABS: Alanine Aminotransferase* 20 U/L (4-35); Alkaline Phosphatase* 70 U/L (40-150); Anion Gap 5 mEq/L (7-15); Aspartate Amino Transferase* 24 U/L (12-35); Bilirubin Total* 0.5 mg/dL (0.1-1.5); Blood Urea Nitrogen* 28 mg/dL (7-30); Calcium* 9.1 mg/dL (8.4-10.6); Carbon Dioxide* 26 mmol/L (20-32); Creatinine* 1.1 mg/dL (0.5-1.5); Est. Creatinine Clearance* 39.76; Estimated Glomerular Filt Rate 52 ml/min; Glucose* 107 mg/dL (60-115); Total Protein* 6.3 g/dL (6.0-8.3)
[2025-02-28] MEDS: ONDANSETRON 2 MG/ML inj 8 MG IVP (10:54)
[2025-02-28] MEDS: SODIUM CHLORIDE 0.9 % (FLUSH) 10 ML SYRINGE IVF (10:56)
[2025-02-28] MEDS: HEPARIN 500 UNIT/5 ML SYRINGE IVF (10:57)
[2025-02-28] MEDS: TUBING SECONDARY IVPB (11:17)
[2025-02-28] MEDS: SODIUM CHLORIDE 0.9% IVPB (11:17)
[2025-02-28] MEDS: CARBOPLATIN IVPB (11:17)
--- NOTE | 2025-02-28 14:28 | PC.NURSE ---
Addendum entered by Pauly Parikh RN 02/28/25 15:05: Pt was recently hospitalized this past months with renal failure. She has 2 rt and 1 lt neph tube. she uses wipes to clean after emptying. states drinking water more. states urine clear no blood. stools soft. Original Note: states trys to drink cho protien drinks. states they go well. states chronic pelvic pain with cancer. states uses tylenol. states has oxycodone but doesnt like to take it.
[2025-03-07 09:13] VITALS: BP 118/75; PULSE 67; RESP 16; TEMP 36.9; O2SAT 98
[2025-03-07 09:34] LABS: Hematocrit* 28.8 % (33.0-51.0); Hemoglobin* 9.2 gm/dL (12.0-16.0); Immature Granulocytes Abs Auto 0.00 K/uL (0.00-0.30); Immature Granulocytes Pct Auto 0.0 %; Mean Corpuscular HGB Conc 32 gm/dL (32-36); Mean Corpuscular Hemoglobin 30 pg (26-34); Mean Corpuscular Volume 94 fL (80-100); RDW Coefficient of Variation % 15.6 % (11.5-15.5); Red Blood Count* 3.06 m/uL (4.00-5.20); White Blood Count* 2.49 K/uL (4.50-11.00)
[2025-03-07 09:42] LABS: Lymphocytes Absolute Auto 0.30 K/uL (0.90-2.90)
[2025-03-07 09:43] LABS: Slide Review Reflex No
[2025-03-07 09:50] LABS: Albumin* 3.7 g/dL (3.3-5.0); Chloride* 101 mmol/L (96-114); Sodium* 133 mmol/L (135-149)
[2025-03-07 09:51] LABS: Potassium* 4.4 mmol/L (3.6-5.1)
[2025-03-07 09:53] LABS: Alanine Aminotransferase* 23 U/L (4-35); Anion Gap 5 mEq/L (7-15); Aspartate Amino Transferase* 28 U/L (12-35); Blood Urea Nitrogen* 31 mg/dL (7-30); Carbon Dioxide* 27 mmol/L (20-32); Creatinine* 1.1 mg/dL (0.5-1.5); Est. Creatinine Clearance* 39.76; Estimated Glomerular Filt Rate 52 ml/min
[2025-03-07 09:54] LABS: Alkaline Phosphatase* 68 U/L (40-150); Bilirubin Total* 0.6 mg/dL (0.1-1.5); Calcium* 9.2 mg/dL (8.4-10.6); Glucose* 101 mg/dL (60-115); Total Protein* 6.5 g/dL (6.0-8.3)
[2025-03-07] MEDS: SODIUM CHLORIDE 0.9 % (FLUSH) 10 ML SYRINGE IVF ×2 (10:44→11:55)
[2025-03-07] MEDS: ONDANSETRON 2 MG/ML inj 8 MG IVP (10:44)
[2025-03-07] MEDS: SODIUM CHLORIDE 0.9% IVPB (11:08)
[2025-03-07] MEDS: CARBOPLATIN IVPB (11:08)
[2025-03-07] MEDS: TUBING SECONDARY IVPB (11:08)
[2025-03-07] MEDS: HEPARIN 500 UNIT/5 ML SYRINGE IVF (11:55)
[2025-03-14 09:47] LABS: Hematocrit* 27.8 % (33.0-51.0); Hemoglobin* 8.9 gm/dL (12.0-16.0); Immature Granulocytes Pct Auto 0.3 %; Mean Corpuscular HGB Conc 32 gm/dL (32-36); Mean Corpuscular Hemoglobin 30 pg (26-34); Mean Corpuscular Volume 94 fL (80-100); RDW Coefficient of Variation % 16.7 % (11.5-15.5); Red Blood Count* 2.95 m/uL (4.00-5.20); White Blood Count* 3.68 K/uL (4.50-11.00)
[2025-03-14 09:48] LABS: Immature Granulocytes Abs Auto 0.00 K/uL (0.00-0.30); Lymphocytes Absolute Auto 0.20 K/uL (0.90-2.90); Slide Review Reflex No
[2025-03-14 09:59] LABS: Albumin* 3.7 g/dL (3.3-5.0); Chloride* 101 mmol/L (96-114); Potassium* 4.1 mmol/L (3.6-5.1); Sodium* 132 mmol/L (135-149)
[2025-03-14 10:02] LABS: Alanine Aminotransferase* 21 U/L (4-35); Alkaline Phosphatase* 65 U/L (40-150); Anion Gap 5 mEq/L (7-15); Aspartate Amino Transferase* 25 U/L (12-35); Bilirubin Total* 0.6 mg/dL (0.1-1.5); Blood Urea Nitrogen* 29 mg/dL (7-30); Calcium* 9.5 mg/dL (8.4-10.6); Carbon Dioxide* 26 mmol/L (20-32); Creatinine* 1.2 mg/dL (0.5-1.5); Est. Creatinine Clearance* 36.45; Estimated Glomerular Filt Rate 47 ml/min; Glucose* 108 mg/dL (60-115); Total Protein* 6.5 g/dL (6.0-8.3)
[2025-03-14] MEDS: ONDANSETRON 2 MG/ML inj 8 MG IVP (11:40)
[2025-03-14] MEDS: SODIUM CHLORIDE 0.9 % (FLUSH) 10 ML SYRINGE IVF ×2 (11:42→13:23)
[2025-03-14] MEDS: PEMBROLIZUMAB 200 MG, TUBING PRIMARY 1 EACH, In-line 0.2 micron filter set 1 EACH in 0.... 216 MG IVPB (11:47)
[2025-03-14] MEDS: SODIUM CHLORIDE 0.9% IVPB (12:33)
[2025-03-14] MEDS: CARBOPLATIN IVPB (12:33)
[2025-03-14] MEDS: TUBING SECONDARY IVPB (12:33)
[2025-03-14] MEDS: HEPARIN 500 UNIT/5 ML SYRINGE IVF (13:23)
[2025-03-21 09:09] VITALS: BP 115/73; PULSE 73; RESP 12; TEMP 36.4; O2SAT 99
[2025-03-21] MEDS: SODIUM CHLORIDE 0.9 % (FLUSH) 10 ML SYRINGE IVF ×2 (09:30→12:25)
[2025-03-21 09:40] LABS: Hematocrit* 26.1 % (33.0-51.0); Hemoglobin* 8.4 gm/dL (12.0-16.0); Immature Granulocytes Abs Auto 0.00 K/uL (0.00-0.30); Immature Granulocytes Pct Auto 0.0 %; Mean Corpuscular HGB Conc 32 gm/dL (32-36); Mean Corpuscular Hemoglobin 31 pg (26-34); Mean Corpuscular Volume 96 fL (80-100); RDW Coefficient of Variation % 18.3 % (11.5-15.5); Red Blood Count* 2.73 m/uL (4.00-5.20); White Blood Count* 3.05 K/uL (4.50-11.00)
[2025-03-21 09:45] LABS: Lymphocytes Absolute Auto 0.10 K/uL (0.90-2.90); Slide Review Reflex No
[2025-03-21 09:54] LABS: Chloride* 102 mmol/L (96-114)
[2025-03-21 09:55] LABS: Albumin* 3.5 g/dL (3.3-5.0); Potassium* 3.8 mmol/L (3.6-5.1); Sodium* 134 mmol/L (135-149)
[2025-03-21 09:57] LABS: Alanine Aminotransferase* 18 U/L (4-35); Anion Gap 6 mEq/L (7-15); Aspartate Amino Transferase* 27 U/L (12-35); Blood Urea Nitrogen* 29 mg/dL (7-30); Carbon Dioxide* 26 mmol/L (20-32); Creatinine* 1.0 mg/dL (0.5-1.5); Est. Creatinine Clearance* 43.74; Estimated Glomerular Filt Rate 59 ml/min
[2025-03-21 09:58] LABS: Alkaline Phosphatase* 55 U/L (40-150); Bilirubin Total* 0.8 mg/dL (0.1-1.5); Calcium* 9.0 mg/dL (8.4-10.6); Glucose* 122 mg/dL (60-115); Total Protein* 6.2 g/dL (6.0-8.3)
[2025-03-21] MEDS: ONDANSETRON 2 MG/ML inj 8 MG IVP (10:58)
[2025-03-21] MEDS: SODIUM CHLORIDE 0.9% IVPB (11:40)
[2025-03-21] MEDS: TUBING SECONDARY IVPB (11:40)
[2025-03-21] MEDS: CARBOPLATIN IVPB (11:40)
[2025-03-21] MEDS: HEPARIN 500 UNIT/5 ML SYRINGE IVF (12:25)
[2025-03-28 09:44] LABS: Albumin* 3.5 g/dL (3.3-5.0); Chloride* 100 mmol/L (96-114)
[2025-03-28 09:45] LABS: Potassium* 3.9 mmol/L (3.6-5.1); Sodium* 130 mmol/L (135-149)
[2025-03-28 09:47] LABS: Alanine Aminotransferase* 18 U/L (4-35); Anion Gap 3 mEq/L (7-15); Aspartate Amino Transferase* 26 U/L (12-35); Bilirubin Total* 0.9 mg/dL (0.1-1.5); Blood Urea Nitrogen* 29 mg/dL (7-30); Carbon Dioxide* 27 mmol/L (20-32); Creatinine* 1.0 mg/dL (0.5-1.5); Est. Creatinine Clearance* 43.74; Estimated Glomerular Filt Rate 59 ml/min
[2025-03-28 09:48] LABS: Alkaline Phosphatase* 56 U/L (40-150); Calcium* 9.2 mg/dL (8.4-10.6); Glucose* 108 mg/dL (60-115); Total Protein* 6.2 g/dL (6.0-8.3)
[2025-03-28 09:52] LABS: Hematocrit* 22.1 % (33.0-51.0); Immature Granulocytes Pct Auto 0.6 %; Mean Corpuscular HGB Conc 33 gm/dL (32-36); Mean Corpuscular Hemoglobin 31 pg (26-34); Mean Corpuscular Volume 95 fL (80-100); RDW Coefficient of Variation % 19.5 % (11.5-15.5); Red Blood Count* 2.33 m/uL (4.00-5.20)
[2025-03-28 10:16] LABS: Immature Granulocytes Abs Auto 0.00 K/uL (0.00-0.30)
[2025-03-28 10:17] LABS: Lymphocytes Absolute Auto 0.10 K/uL (0.90-2.90)
[2025-03-28 10:18] LABS: Hemoglobin* 7.3 gm/dL (12.0-16.0); Slide Review Reflex Yes; White Blood Count* 1.61 K/uL (4.50-11.00)
[2025-03-28 10:19] LABS: Slide Review Acceptable Review (Acceptable)
[2025-03-28 11:04] VITALS: BP 128/74; PULSE 73; TEMP 36.3; O2SAT 100
--- NOTE | 2025-03-28 13:36 | ONC.NURNOTE ---
Reviewed abnormal labs with Myah Field PA-C; written orders to hold chemotherapy. 1 unit PRBC ordered; pt prefer to sched for tomorrow after scan in AM in [place]. T&C obtained.
[2025-03-29] VITALS (8 sets, daily range): BP systolic 101–137; BP diastolic 62–81; PULSE 88–98; RESP 16–18; TEMP 35.7–36.8; O2SAT 96–98
--- NOTE | 2025-03-29 16:25 | ONC.NURNOTE ---
Pt present at [facility] for blood transfusion today. Pt's chemo was held yesterday due to low WBC and Plt. Alyssa's last external beam radiation in [place] was yesterday. She will start brachytherapy on Friday at [facility] in [place]. Pt asked about whether or not her chemo would be re-scheduled. RN discussed case with Gris Huddleston APRN, CNS and it was determined that because pt is done with radiation in and because she will be starting brachytherapy tomorrow, her chemotherapy would be complete. She will not make up her missed treatment from yesterday. Alyssa will return to [facility] on 04/12/2025 for labs, MD visit, and pembrolizumab infuison. Upon discussing with Gris Huddleston APRN, CNS, it was noted that her sodium was low at 130 yesterday. RN instructed pt to increase sodium intake with food and beverages and to call [facility] if she doesn't feel well and [facility] team doesn't think it's related to the brachytherapy. Gris would be happy to order labs and see her in the interim if needed. Pt verbalized understanding.
[2025-04-12] VITALS (7 sets, daily range): BP systolic 97–109; BP diastolic 61–70; PULSE 72–82; RESP 16–18; TEMP 35.8–36.3; O2SAT 97–100
[2025-04-12 08:21] LABS: Hematocrit* 22.5 % (33.0-51.0); Immature Granulocytes Pct Auto 0.4 %; Mean Corpuscular HGB Conc 32 gm/dL (32-36); Mean Corpuscular Hemoglobin 31 pg (26-34); Mean Corpuscular Volume 98 fL (80-100); RDW Coefficient of Variation % 19.8 % (11.5-15.5); Red Blood Count* 2.30 m/uL (4.00-5.20); White Blood Count* 2.53 K/uL (4.50-11.00)
[2025-04-12 08:25] LABS: Immature Granulocytes Abs Auto 0.00 K/uL (0.00-0.30)
[2025-04-12 08:27] LABS: Hemoglobin* 7.1 gm/dL (12.0-16.0); Lymphocytes Absolute Auto 0.20 K/uL (0.90-2.90); Slide Review Reflex No
[2025-04-12 08:34] LABS: Albumin* 3.2 g/dL (3.3-5.0); Chloride* 103 mmol/L (96-114)
[2025-04-12 08:35] LABS: Potassium* 4.0 mmol/L (3.6-5.1); Sodium* 133 mmol/L (135-149)
[2025-04-12 08:37] LABS: Alanine Aminotransferase* 22 U/L (4-35); Alkaline Phosphatase* 71 U/L (40-150); Anion Gap 2 mEq/L (7-15); Aspartate Amino Transferase* 24 U/L (12-35); Bilirubin Total* 0.4 mg/dL (0.1-1.5); Blood Urea Nitrogen* 24 mg/dL (7-30); Carbon Dioxide* 28 mmol/L (20-32); Creatinine* 1.2 mg/dL (0.5-1.5); Est. Creatinine Clearance* 36.45; Estimated Glomerular Filt Rate 47 ml/min; Total Protein* 6.1 g/dL (6.0-8.3)
[2025-04-12 08:38] LABS: Calcium* 9.2 mg/dL (8.4-10.6); Glucose* 109 mg/dL (60-115)
[2025-04-12] MEDS: PEMBROLIZUMAB 200 MG, TUBING PRIMARY 1 EACH, In-line 0.2 micron filter set 1 EACH in 0.... 216 MG IVPB (13:08)
[2025-04-12] MEDS: HEPARIN 500 UNIT/5 ML SYRINGE IVF (13:38)
[2025-04-12] MEDS: SODIUM CHLORIDE 0.9 % (FLUSH) 10 ML SYRINGE IVF (13:39)
[2025-05-02] MEDS: SODIUM CHLORIDE 0.9 % (FLUSH) 10 ML SYRINGE IVF ×2 (08:29→11:35)
[2025-05-02 08:34] LABS: Hematocrit* 27.8 % (33.0-51.0); Hemoglobin* 8.8 gm/dL (12.0-16.0); Immature Granulocytes Abs Auto 0.02 K/uL (0.00-0.30); Immature Granulocytes Pct Auto 0.4 %; Mean Corpuscular HGB Conc 32 gm/dL (32-36); Mean Corpuscular Hemoglobin 31 pg (26-34); Mean Corpuscular Volume 97 fL (80-100); RDW Coefficient of Variation % 19.0 % (11.5-15.5); Red Blood Count* 2.86 m/uL (4.00-5.20); White Blood Count* 4.84 K/uL (4.50-11.00)
[2025-05-02 08:35] LABS: Lymphocytes Absolute Auto 0.50 K/uL (0.90-2.90)
[2025-05-02 08:38] LABS: Slide Review Reflex No
[2025-05-02 08:54] LABS: Chloride* 105 mmol/L (96-114)
[2025-05-02 08:55] LABS: Albumin* 3.4 g/dL (3.3-5.0); Potassium* 3.7 mmol/L (3.6-5.1); Sodium* 136 mmol/L (135-149)
[2025-05-02 08:57] LABS: Blood Urea Nitrogen* 19 mg/dL (7-30); Creatinine* 1.2 mg/dL (0.5-1.5); Est. Creatinine Clearance* 36.45; Estimated Glomerular Filt Rate 47 ml/min
[2025-05-02 08:58] LABS: Alanine Aminotransferase* 37 U/L (4-35); Alkaline Phosphatase* 90 U/L (40-150); Anion Gap 4 mEq/L (7-15); Aspartate Amino Transferase* 26 U/L (12-35); Bilirubin Total* 0.5 mg/dL (0.1-1.5); Calcium* 9.4 mg/dL (8.4-10.6); Carbon Dioxide* 27 mmol/L (20-32); Glucose* 109 mg/dL (60-115); Total Protein* 6.7 g/dL (6.0-8.3)
[2025-05-02] MEDS: PEMBROLIZUMAB 200 MG, TUBING PRIMARY 1 EACH, In-line 0.2 micron filter set 1 EACH in 0.... 216 MG IVPB (10:56)
[2025-05-02] MEDS: HEPARIN 500 UNIT/5 ML SYRINGE IVF (11:35)
[2025-05-11 10:32] VITALS: BP 120/76; PULSE 67; RESP 17; TEMP 36.8; O2SAT 97
[2025-05-11] MEDS: SODIUM CHLORIDE 0.9 % (FLUSH) 10 ML SYRINGE IVF ×2 (10:57→11:42)
[2025-05-11] MEDS: CEFEPIME HCL 1 GM in 0.9 % SODIUM CHLORIDE Mini-bag 100 ML IVPB (10:57)
[2025-05-11] MEDS: HEPARIN 500 UNIT/5 ML SYRINGE IVF (11:42)
[2025-05-12 10:41] VITALS: BP 108/67; PULSE 74; RESP 14; TEMP 36.7; O2SAT 98
[2025-05-12] MEDS: CEFEPIME HCL 1 GM in 0.9 % SODIUM CHLORIDE Mini-bag 100 ML IVPB (10:57)
[2025-05-12] MEDS: HEPARIN 500 UNIT/5 ML SYRINGE IVF (11:35)
[2025-05-12] MEDS: SODIUM CHLORIDE 0.9 % (FLUSH) 10 ML SYRINGE IVF (11:35)
[2025-05-13 10:26] VITALS: BP 132/74; PULSE 64; RESP 17; TEMP 36.3; O2SAT 99
[2025-05-13] MEDS: SODIUM CHLORIDE 0.9 % (FLUSH) 10 ML SYRINGE IVF ×2 (10:52→11:41)
[2025-05-13] MEDS: CEFEPIME HCL 1 GM in 0.9 % SODIUM CHLORIDE Mini-bag 100 ML IVPB (11:01)
[2025-05-13] MEDS: HEPARIN 500 UNIT/5 ML SYRINGE IVF (11:41)
[2025-05-14] MEDS: CEFEPIME HCL 1 GM in 0.9 % SODIUM CHLORIDE Mini-bag 100 ML IVPB (10:02)
[2025-05-14 10:06] VITALS: BP 127/79; PULSE 75; RESP 16; TEMP 36.6; O2SAT 100
[2025-05-14] MEDS: SODIUM CHLORIDE 0.9 % (FLUSH) 10 ML SYRINGE IVF ×2 (10:09→10:58)
[2025-05-14 10:25] VITALS: BP 127/79; PULSE 75; RESP 18; TEMP 36.6; O2SAT 100
[2025-05-14] MEDS: HEPARIN 500 UNIT/5 ML SYRINGE IVF (10:58)
--- NOTE | 2025-05-14 11:05 | PC.NURSE ---
End of infusion. VSS. afebrile. patient tolerated well. Port in right chest hep. locked and patent.
[2025-05-15 10:03] VITALS: BP 110/73; PULSE 64; RESP 18; TEMP 36.7; O2SAT 100
[2025-05-15] MEDS: CEFEPIME HCL 1 GM in 0.9 % SODIUM CHLORIDE Mini-bag 100 ML IVPB (10:04)
[2025-05-15] MEDS: HEPARIN 500 UNIT/5 ML SYRINGE IVF (10:56)
[2025-05-15] MEDS: SODIUM CHLORIDE 0.9 % (FLUSH) 10 ML SYRINGE IVF (10:56)
--- NOTE | 2025-05-15 11:05 | PC.NURSE ---
End of infusion. VSS. afebrile. patient tolerated well. Port in right chest hep. locked and patent.
[2025-05-16 10:23] VITALS: BP 113/68; PULSE 67; RESP 15; TEMP 36.7; O2SAT 98
[2025-05-16] MEDS: SODIUM CHLORIDE 0.9 % (FLUSH) 10 ML SYRINGE IVF ×2 (10:39→11:15)
[2025-05-16] MEDS: CEFEPIME HCL 1 GM in 0.9 % SODIUM CHLORIDE Mini-bag 100 ML IVPB (10:40)
[2025-05-16] MEDS: HEPARIN 500 UNIT/5 ML SYRINGE IVF (11:15)
[2025-05-17 09:33] VITALS: BP 144/81; PULSE 61; RESP 15; TEMP 36.7; O2SAT 100
[2025-05-17] MEDS: CEFEPIME HCL 1 GM in 0.9 % SODIUM CHLORIDE Mini-bag 100 ML IVPB (09:49)
[2025-05-17] MEDS: SODIUM CHLORIDE 0.9 % (FLUSH) 10 ML SYRINGE IVF ×2 (09:49→10:27)
[2025-05-17] MEDS: HEPARIN 500 UNIT/5 ML SYRINGE IVF (10:27)
[2025-05-24 08:33] LABS: Hematocrit* 33.1 % (33.0-51.0); Hemoglobin* 10.5 gm/dL (12.0-16.0); Immature Granulocytes Abs Auto 0.00 K/uL (0.00-0.30); Immature Granulocytes Pct Auto 0.0 %; Mean Corpuscular HGB Conc 32 gm/dL (32-36); Mean Corpuscular Hemoglobin 32 pg (26-34); Mean Corpuscular Volume 99 fL (80-100); RDW Coefficient of Variation % 16.3 % (11.5-15.5); Red Blood Count* 3.33 m/uL (4.00-5.20); White Blood Count* 4.29 K/uL (4.50-11.00)
[2025-05-24 08:40] LABS: Lymphocytes Absolute Auto 0.70 K/uL (0.90-2.90); Slide Review Reflex No
[2025-05-24 08:48] LABS: Albumin* 3.7 g/dL (3.3-5.0); Chloride* 102 mmol/L (96-114); Sodium* 134 mmol/L (135-149)
[2025-05-24 08:49] LABS: Potassium* 4.4 mmol/L (3.6-5.1)
[2025-05-24 08:51] LABS: Alanine Aminotransferase* 16 U/L (4-35); Alkaline Phosphatase* 67 U/L (40-150); Anion Gap 4 mEq/L (7-15); Aspartate Amino Transferase* 26 U/L (12-35); Bilirubin Total* 0.5 mg/dL (0.1-1.5); Blood Urea Nitrogen* 19 mg/dL (7-30); Carbon Dioxide* 28 mmol/L (20-32); Creatinine* 1.1 mg/dL (0.5-1.5); Est. Creatinine Clearance* 39.76; Estimated Glomerular Filt Rate 52 ml/min; Total Protein* 6.7 g/dL (6.0-8.3)
[2025-05-24 08:52] LABS: Calcium* 9.6 mg/dL (8.4-10.6); Glucose* 102 mg/dL (60-115)
[2025-05-24] MEDS: PEMBROLIZUMAB 200 MG, TUBING PRIMARY 1 EACH, In-line 0.2 micron filter set 1 EACH in 0.... 216 MG IVPB (10:34)
[2025-05-24] MEDS: SODIUM CHLORIDE 0.9 % (FLUSH) 10 ML SYRINGE IVF (11:08)
[2025-05-24] MEDS: HEPARIN 500 UNIT/5 ML SYRINGE IVF (11:08)
[2025-06-08 09:52] VITALS: BP 124/75; PULSE 75; RESP 16; TEMP 36.5; O2SAT 100
[2025-06-08] MEDS: SODIUM CHLORIDE 0.9 % (FLUSH) 10 ML SYRINGE IVF ×2 (10:19→11:00)
[2025-06-08] MEDS: CEFEPIME HCL 1 GM in 0.9 % SODIUM CHLORIDE Mini-bag 100 ML IVPB (10:19)
[2025-06-08] MEDS: HEPARIN 500 UNIT/5 ML SYRINGE IVF (11:00)
[2025-06-09 09:28] VITALS: BP 124/85; PULSE 72; RESP 14; TEMP 36.8; O2SAT 100
[2025-06-09] MEDS: CEFEPIME HCL 1 GM in 0.9 % SODIUM CHLORIDE Mini-bag 100 ML IVPB (09:43)
[2025-06-09] MEDS: SODIUM CHLORIDE 0.9 % (FLUSH) 10 ML SYRINGE IVF ×2 (09:43→10:37)
[2025-06-09] MEDS: HEPARIN 500 UNIT/5 ML SYRINGE IVF (10:37)
[2025-06-10 10:00] VITALS: BP 144/83; PULSE 64; RESP 16; TEMP 36.5; O2SAT 99
[2025-06-10] MEDS: SODIUM CHLORIDE 0.9 % (FLUSH) 10 ML SYRINGE IVF ×2 (10:09→10:50)
[2025-06-10] MEDS: CEFEPIME HCL 1 GM in 0.9 % SODIUM CHLORIDE Mini-bag 100 ML IVPB (10:11)
[2025-06-10 10:25] LABS: Hematocrit* 33.3 % (33.0-51.0); Hemoglobin* 10.6 gm/dL (12.0-16.0); Immature Granulocytes Abs Auto 0.00 K/uL (0.00-0.30); Immature Granulocytes Pct Auto 0.0 %; Mean Corpuscular HGB Conc 32 gm/dL (32-36); Mean Corpuscular Hemoglobin 31 pg (26-34); Mean Corpuscular Volume 98 fL (80-100); RDW Coefficient of Variation % 14.9 % (11.5-15.5); Red Blood Count* 3.41 m/uL (4.00-5.20); White Blood Count* 3.48 K/uL (4.50-11.00)
[2025-06-10 10:28] LABS: Lymphocytes Absolute Auto 0.50 K/uL (0.90-2.90); Slide Review Reflex No
[2025-06-10 10:45] LABS: Albumin* 3.6 g/dL (3.3-5.0); Chloride* 104 mmol/L (96-114); Potassium* 4.2 mmol/L (3.6-5.1); Sodium* 135 mmol/L (135-149)
[2025-06-10 10:48] LABS: Alanine Aminotransferase* 13 U/L (4-35); Alkaline Phosphatase* 67 U/L (40-150); Anion Gap 4 mEq/L (7-15); Aspartate Amino Transferase* 23 U/L (12-35); Bilirubin Total* 0.3 mg/dL (0.1-1.5); Blood Urea Nitrogen* 29 mg/dL (7-30); Calcium* 9.2 mg/dL (8.4-10.6); Carbon Dioxide* 27 mmol/L (20-32); Creatinine* 1.1 mg/dL (0.5-1.5); Est. Creatinine Clearance* 39.76; Estimated Glomerular Filt Rate 52 ml/min; Glucose* 94 mg/dL (60-115); Total Protein* 6.4 g/dL (6.0-8.3)
[2025-06-10] MEDS: HEPARIN 500 UNIT/5 ML SYRINGE IVF (10:50)
[2025-06-11] MEDS: CEFEPIME HCL 1 GM in 0.9 % SODIUM CHLORIDE Mini-bag 100 ML IVPB (09:57)
[2025-06-11] MEDS: SODIUM CHLORIDE 0.9 % (FLUSH) 10 ML SYRINGE IVF ×2 (09:58→11:13)
[2025-06-11 10:08] VITALS: BP 129/83; PULSE 65; RESP 18; TEMP 36.7; O2SAT 100
[2025-06-11] MEDS: HEPARIN 500 UNIT/5 ML SYRINGE IVF (11:13)
[2025-06-12] MEDS: CEFEPIME HCL 1 GM in 0.9 % SODIUM CHLORIDE Mini-bag 100 ML IVPB (10:42)
[2025-06-12] MEDS: SODIUM CHLORIDE 0.9 % (FLUSH) 10 ML SYRINGE IVF (11:17)
[2025-06-12] MEDS: HEPARIN 500 UNIT/5 ML SYRINGE IVF (11:17)
[2025-06-13] MEDS: SODIUM CHLORIDE 0.9 % (FLUSH) 10 ML SYRINGE IVF ×2 (10:12→11:40)
[2025-06-13] MEDS: PEMBROLIZUMAB 400 MG, TUBING PRIMARY 1 EACH, In-line 0.2 micron filter set 1 EACH in 0.... 232 MG IVPB (10:27)
[2025-06-13] MEDS: CEFEPIME HCL 1 GM in 0.9 % SODIUM CHLORIDE Mini-bag 100 ML IVPB (10:58)
[2025-06-13] MEDS: HEPARIN 500 UNIT/5 ML SYRINGE IVF (11:40)
[2025-06-14 09:54] VITALS: BP 131/76; PULSE 66; RESP 16; TEMP 36.8; O2SAT 98
[2025-06-14] MEDS: CEFEPIME HCL 1 GM in 0.9 % SODIUM CHLORIDE Mini-bag 100 ML IVPB (10:13)
[2025-06-14] MEDS: SODIUM CHLORIDE 0.9 % (FLUSH) 10 ML SYRINGE IVF ×2 (10:25→11:00)
[2025-06-14] MEDS: HEPARIN 500 UNIT/5 ML SYRINGE IVF (11:00)
--- NOTE | 2025-07-25 10:57 | ONC.NURNOTE ---
Pt called to inform [facility] that she is currently admitted to [facility] for PE. She is going to have a surgical procedure today as the clots are causing her to be symptomatic. She has been on blood thinners and has been in the ER x 4 since the initial scan showed PE. Cancelled all appts for tomorrow. Asked pt to call when discharged and we can get her scheduled for labs/provider/[facility].
[2025-08-01 15:05] LABS: Hematocrit* 31.4 % (33.0-51.0); Hemoglobin* 9.9 gm/dL (12.0-16.0); Immature Granulocytes Abs Auto 0.00 K/uL (0.00-0.30); Immature Granulocytes Pct Auto 0.0 %; Mean Corpuscular HGB Conc 32 gm/dL (32-36); Mean Corpuscular Hemoglobin 30 pg (26-34); Mean Corpuscular Volume 95 fL (80-100); RDW Coefficient of Variation % 16.8 % (11.5-15.5); Red Blood Count* 3.29 m/uL (4.00-5.20); White Blood Count* 5.01 K/uL (4.50-11.00)
[2025-08-01 15:15] LABS: Lymphocytes Absolute Auto 0.40 K/uL (0.90-2.90); Slide Review Reflex No
== END 2025-08-09 23:59 | disposition home or self-care (01) ==
LOC: CCIC 11:00
PROVIDERS: Clinical Nurse Specialist; Internal Medicine Hematology & Oncology; PCP Family Medicine; Referring Provider Family Medicine; Visit Provider Internal Medicine Hematology & Oncology
DX: C53.9 Malignant neoplasm of cervix uteri, unspecified (principal)
CPT/HCPCS: 36415; 36430; 36591; 36592; 80053; 81001; 82565; 83735; 84443; 85025; 86850; 86900; 86901; 86922; 87086; 87186; 96365; 96367; 96375; 96413; 96417; 99199; 99202; 99205; 99211; 99214; 99215; 99282; G0463; A9270; J0692; J1642; J2405; J7050; J9045; J9271; P9016

== ENCOUNTER 2025-08-09 11:47 | Outpatient (CLI) | payer MEDICARE, BC, SELFPAY | END 2025-08-09 11:48 | disposition home or self-care (01) | LOC: AMB 08-15 14:43 | PROVIDERS: PCP Family Medicine; Visit Provider Emergency Medicine Emergency Medical Services | DX: I63.511 Cerebral infarction due to unspecified occlusion or stenosis of right middle cerebral artery (principal); G81.94 Hemiplegia, unspecified affecting left nondominant side | CPT/HCPCS: A0425; A0428 ==

== ENCOUNTER 2025-08-23 17:09 | Outpatient (CLI) | payer MEDICARE, BC, SELFPAY | END 2025-08-23 17:10 | disposition home or self-care (01) | LOC: AMB 08-27 18:18 | PROVIDERS: PCP Family Medicine; Visit Provider Emergency Medicine Emergency Medical Services | DX: T83.89XA Other specified complication of genitourinary prosthetic devices, implants and grafts, initial encounter (principal) | CPT/HCPCS: A0425; A0427 ==

== ENCOUNTER 2025-08-26 18:06 | Outpatient (CLI) | payer MEDICARE, BC, SELFPAY | END 2025-08-26 18:07 | disposition home or self-care (01) | LOC: AMB 08-29 20:46 | PROVIDERS: PCP Family Medicine; Visit Provider Family Medicine | DX: T83.092A Other mechanical complication of nephrostomy catheter, initial encounter (principal) | CPT/HCPCS: A0425; A0429 ==

== ENCOUNTER 2025-08-27 20:06 | Outpatient (CLI) | payer MEDICARE, BC, SELFPAY | END 2025-08-27 20:07 | disposition home or self-care (01) | LOC: AMB 08-30 09:06 | PROVIDERS: PCP Family Medicine; Visit Provider Family Medicine | DX: T83.092A Other mechanical complication of nephrostomy catheter, initial encounter (principal) | CPT/HCPCS: A0425; A0427 ==